=== PATIENT | female | born 1965 | race Caucasian/White ===

== ENCOUNTER 2022-08-24 10:02 | Emergency (ER) | payer OTHER, SELFPAY ==
[2022-08-24 10:11] VITALS: BP 138/87; PULSE 70; RESP 18; TEMP 36.4; O2SAT 97; BMI 33.5
--- NOTE | 2022-08-24 11:38 | ED_ITS ---
HPI - General Adult General Chief complaint: Extremity Pain/Injury, Lower Stated complaint: Possible infection in LT leg Time Seen by Provider: 08/24/22 11:01 History of Present Illness HPI narrative: This patient comes in with a sore on her left lower leg that she noticed a couple days ago. She states that she does not have any sensation from her knees down bilaterally. She does wear some compression stockings and is supposed to wear a brace for her feet but states that it rubs on her skin. She has a superficial abrasion on the left lower anterior leg with some surrounding erythema. He does not report any fevers and feels normal otherwise. Related Data Previous Rx's Medication Instructions Recorded cephalexin 500 mg capsule 500 mg PO TID 7 days #21 caps 08/24/22 Review of Systems Status of ROS: Reports: 10 or more systems reviewed and unremarkable except as noted in History and below Narrative: Constitutional: No fevers, no weight gain or loss. Eyes: No discharge. No vision changes. HENT: No congestion, no sore throat, no ear pain. Cardiovascular: No chest pain, no palpitations. Respiratory: No shortness of breath, no wheezes, no cough. Gastrointestinal: No abdominal pain, no vomiting, no diarrhea. Genitourinary: No dysuria, no hematuria. Musculoskeletal: Normal range of motion. Skin: No rashes, no pruritis. Neurological: No dizziness, weakness, sensory change, speech change. She does have chronic neuropathy with loss of sensation in the distal upper and lower extremities. She is ambulatory. Endo/Heme/Allergies: No bruising or bleeding. No polydipsia. Pysch: no suicidality, no anxiety, no insomnia. All other systems reviewed and are negative. Exam Narrative: Exam Narrative: Constitutional: Well-developed, well-nourished, no acute distress. HEENT: Normocephalic, atraumatic. Neck: Normal range of motion. Nontender. Supple. Heart: Intact distal pulses. Lungs: No chest discomfort. No wheezes, rhonchi, or rales. Abdomen: Nontender. Back: Normal range of motion. Extremities: Normal range of motion. Superficial abrasion on the left lower extremity with surrounding erythema suspicious for cellulitis. There is no sign of abscess or drainage. Skin: Intact. No rash. Warm. No erythema or pallor. Neurologic: No altered sensation. No weakness. Alert and oriented. Psychiatric: No suicidality. No anxiety or depression. No insomnia. Nursing notes and vitals signs are reviewed. Const: Vital Signs, click to edit/add: Vital Signs - 24 hr 08/24/22 10:11 Temperature 97.5 F L Pulse Rate [Pulse Oximeter] 70 Respiratory Rate 18 Blood Pressure [Ri ght Upper Arm] 138/87 Pulse Oximetry 97 Oxygen Delivery Me thod Room Air Course Vital Signs Vital signs: Initial Vital Signs Temperature 97.5 F L 08/24/22 10:11 Temperature Source Temporal Artery Scan 08/24/22 10:11 Pulse Rate 70 08/24/22 10:11 Respiratory Rate 18 08/24/22 10:11 Blood Pressure 138/87 08/24/22 10:11 Blood Pressure Mean 104 08/24/22 10:11 Blood Pressure Position Sitting 08/24/22 10:11 Pulse Oximetry 97 08/24/22 10:11 Oxygen Delivery Method 08/24/22 10:11 Vital Signs Temperature 97.5 F L 08/24/22 10:11 Pulse Rate 70 08/24/22 10:11 Respiratory Rate 18 08/24/22 10:11 Blood Pressure 138/87 08/24/22 10:11 Pulse Oximetry 97 08/24/22 10:11 Oxygen Delivery Method 08/24/22 10:11 Temperature 97.5 F L 08/24/22 10:11 Pulse Rate 70 08/24/22 10:11 Respiratory Rate 18 08/24/22 10:11 Blood Pressure 138/87 08/24/22 10:11 Pulse Oximetry 97 08/24/22 10:11 Oxygen Delivery Method 08/24/22 10:11 Medical Decision Making [facility] Narrative Medical decision making narrative: This patient has peripheral neuropathy and presents with a wound on her lower extremity that has surrounding erythema suspicious for a cellulitis. There is no sign of abscess and no purulent drainage. I removed the bandage she had an place and cleansed the wound. Bacitracin was applied along with a new bandage. She received a prescription for Keflex. Instructions were given regarding wound care and the need to return if worsening symptoms happen. Discharge Plan Discharge Clinical Impression: Cellulitis Patient Disposition: Home, Self-Care Condition: Stable Additional Instructions: Take medication as prescribed. Follow up with MD if not improving or return if worsening. Prescriptions: New cephalexin 500 mg capsule 500 mg PO TID 7 Days Qty: 21 0RF Stand Alone Forms: [facility] Info Instructions
== END 2022-08-24 12:00 | disposition home or self-care (01) ==
PROVIDERS: Emergency Provider Emergency Medicine Emergency Medical Services; PCP Physician Assistant Medical
DX: L03.116 Cellulitis of left lower limb (principal); G62.9 Polyneuropathy, unspecified
CPT/HCPCS: 99283; 99284

== ENCOUNTER 2022-10-31 08:01 | Outpatient (CLI) | payer OTHER, SELFPAY ==
--- NOTE | 2022-10-31 08:15 | CRLHL7_ITS ---
For Patients: As a result of the Cures Act, medical imaging exams and procedure reports are released immediately into your electronic medical record. You may view this report before your referring provider. If you have questions, please contact your health care provider. BILATERAL LOWER EXTREMITY ARTERIAL ULTRASOUND, 10/31/2022 CLINICAL HISTORY: Pain in toes bilaterally. COMPARISON: None. TECHNIQUE: The lower extremity arteries were examined per exam specific protocol with belle-scale ultrasound, color-flow and Doppler spectral analysis. Peak systolic velocities (PSV), Doppler waveform quality and velocity ratios, if applicable, were documented at sites per exam specific protocol. FINDINGS: RIGHT PSV (cm/sec) WAVEFORM (Tri-T, BI-B, Liberty-M) HEAVY TRUCK TECHNICIAN 84 T DFA 60 T FA PRX 90 T FA MID 70 T FA DIST 79 T POP A 64 T ISAIAS A 64 T TREE CLIMBER 77 T JOSEPH 39 T DPA 40 T LEFT PSV (cm/sec) WAVEFORM (Tri-T, BI-B, Liberty-M) HEAVY TRUCK TECHNICIAN 81 T DFA 50 B FA PRX 100 T FA MID 72 T FA DIST 74 T POP A 63 T ISAIAS A 79 T TREE CLIMBER 56 T JOSEPH 60 T DPA 48 T IMPRESSION: 1. Right Lower Extremity: Multiphasic waveforms of the arterial vasculature with no evidence of hemodynamically-significant stenosis. 2. Left Lower Extremity: Multiphasic waveforms of the arterial vasculature with no evidence of hemodynamically-significant stenosis. Issac Mccormick M.D. [email or web address] arguello/Dictated by: Issac Mccormick MD @ 10/31/2022 10:22:00 AM (Electronically Signed)
== END 2022-10-31 08:02 | disposition home or self-care (01) ==
LOC: US 08:07
PROVIDERS: PCP Physician Assistant Medical; Visit Provider Internal Medicine
DX: M79.674 Pain in right toe(s) (principal); M79.675 Pain in left toe(s); R23.0 Cyanosis
CPT/HCPCS: 93926

== ENCOUNTER 2023-06-20 08:37 | Outpatient (CLI) | payer OTHER, SELFPAY | END 2023-06-20 08:38 | disposition home or self-care (01) | LOC: NFLDREF 06-26 09:07 | PROVIDERS: PCP Physician Assistant Medical; Referring Provider Physician Assistant Medical | DX: R31.9 Hematuria, unspecified (principal); N39.0 Urinary tract infection, site not specified | CPT/HCPCS: 87086; 87186 ==

== ENCOUNTER 2023-10-16 03:42 | Emergency (ER) | payer OTHER, SELFPAY ==
[2023-10-16 03:53] VITALS: BP 112/81; PULSE 81; RESP 18; TEMP 36.6; O2SAT 99; BMI 34.2
--- NOTE | 2023-10-16 04:41 | CRLHL7_ITS ---
For Patients: As a result of the Century Cures Act, medical imaging exams and procedure reports are released immediately into your electronic medical record. You may view this report before your referring provider. If you have questions, please contact your health care provider. INDICATION: Injury COMPARISON: 10/28/2019 TECHNIQUE: CT examination of the head was performed as axial sections without intravenous contrast. Images were obtained from the vertex of the skull through the skull base. Please note that all CT scans at this facility use dose modulation, iterative reconstruction, and/or weight-based dosing when appropriate to reduce radiation dose to as low as reasonably achievable. FINDINGS: The brain shows no sign of mass lesion, mass effect, hemorrhage, or edema. There are involutional changes. There is mild cortical atrophy and there is mild white matter disease. There is no hydrocephalus. The visualized portions of the orbits are normal in appearance. The osseous structures are normal in appearance with no sign of abnormality in the skull base or calvarium. IMPRESSION: Involutional changes. No acute intracranial posttraumatic findings. Please note that all CT scans at this facility use dose modulation, iterative reconstruction, and/or weight-based dosing when appropriate to reduce radiation dose to as low as reasonably achievable. Dictated by Swapnil Aguayo MD @ 10/16/2023 5:29:22 AM (Electronically Signed)
--- NOTE | 2023-10-16 05:30 | ED.GENADULT ---
HPI - General Adult General Date Seen: 10/16/23 Chief complaint: Fall/Minor Trauma Stated complaint: fell in bathroom, L knee lac Time Seen by Provider: 10/16/23 03:54 Source: patient and family Mode of arrival: wheelchair Limitations: no limitations History of Present Illness HPI narrative: Patient is a 58-year-old female with multiple medical problems including peripheral neuropathy. She fell on her left knee on the tile floor of the bathroom. Her got her up with a Son lift and got her into a wheelchair and brought her to the emergency department himself. She sustained a large laceration over the left knee and a smaller one on the right foot. She has not really in any pain due to her neuropathy. Her tetanus is up-to-date. She did bump her head but did not lose consciousness. GCS 15. She is fully oriented. She denies other injury. She believes the fact that she is not eating well for the past two weeks may have contributed to her fall due to leg weakness. Related Data Home Medications Medication Instructions Recorded Confirmed acyclovir 800 mg tablet mg PO 06/20/23 06/20/23 alendronate 70 mg tablet 70 mg PO 06/20/23 06/20/23 carboxymethylcellulose sodium 0.5 drp ophthalmic (eye) 06/20/23 06/20/23 % eye drops cetirizine 10 mg tablet 10 mg PO DAILY 06/20/23 06/20/23 citalopram 20 mg tablet 20 mg PO DAILY 06/20/23 06/20/23 cyanocobalamin (vitamin B-12) 1,000 mcg IM MONTHLY 06/20/23 06/20/23 1,000 mcg/mL injection solution furosemide 20 mg tablet 20 mg PO DAILY 06/20/23 06/20/23 gabapentin 600 mg tablet mg PO 06/20/23 06/20/23 levothyroxine 50 mcg tablet 50 mcg PO DAILY 06/20/23 06/20/23 lidocaine 5 % topical patch 1 patch topical DAILY 06/20/23 06/20/23 metformin 500 mg tablet 500 mg PO BID 06/20/23 06/20/23 mirabegron 25 mg tablet,extended 25 mg PO DAILY 06/20/23 06/20/23 release 24 hr (Myrbetriq) oxybutynin chloride 10 mg 10 mg PO DAILY 06/20/23 06/20/23 tablet,extended release 24 hr pantoprazole 40 mg tablet,delayed 40 mg PO DAILY 06/20/23 06/20/23 release pramipexole 0.5 mg tablet mg PO 06/20/23 06/20/23 spironolactone 50 mg tablet 50 mg PO BID 06/20/23 06/20/23 thiamine HCl (vitamin B1) 100 mg 100 mg PO DAILY 06/20/23 06/20/23 tablet trazodone 100 mg tablet 100 mg PO QPM 06/20/23 06/20/23 Previous Rx's Medication Instructions Recorded cephalexin 500 mg capsule 500 mg PO TID #15 caps 10/16/23 Allergies Allergy/AdvReac Type Severity Reaction Status Date / Time amoxicillin [From Augmentin] Allergy Verified 06/20/23 08:46 clavulanic acid Allergy Verified 06/20/23 08:46 [From Augmentin] naproxen Allergy Verified 06/20/23 08:46 [From Flanax (naproxen)] Review of Systems Narrative: She has severe neuropathy. She feels that her anxiety and depression have been well managed. She denies any chest pains or shortness of breath. She has a poor appetite but no nausea or vomiting. Review of systems in all at other areas is noted to be negative. [facility] Social History Smoking Status: Never smoker How often do you have a drink containing alcohol: never AUDIT-C Alcohol total score: 0 Non-prescribed substance use: denies use Exam Narrative: Exam Narrative: Vitals noted. HEENT: Normocephalic, atraumatic.Conjunctiva clear. Tympanic membranes are pearly white bilaterally. Posterior pharynx is clear without erythema or exudate. Neck is supple without adenopathy, thyromegaly, carotid bruit. Lungs: Clear to auscultation in all lenz. No wheezes, rales, rhonchi. Heart: Regular rate and rhythm without murmur. Abdomen: Soft and nontender. No guarding, rigidity, rebound. Bowel sounds are normal. No palpable masses. Extremities: No cyanosis or edema. Good distal pulses. Skin: She has a 1/2 cm laceration on the sole of the foot where the great toe meets the foot. She has a long linear laceration just distal to the patella on the left. The skin is somewhat thin and fragile but it did hold sutures. No bony tenderness. Neurologic: Awake, alert, fully oriented. She has dense neuropathy in the lower extremities from the hips down. Const: Vital Signs, click to edit/add: Vital Signs - 24 hr 10/16/23 03:53 Temperature 97.9 F Pulse Rate [Pulse Oximeter] 81 Respiratory Rate 18 Blood Pressure [Ri ght Upper Arm] 112/81 Pulse Oximetry 99 Oxygen Delivery Me thod Room Air Course Course ED Course: Patient is seen and examined. CT of her head without contrast is ordered and is normal. Her tetanus is up-to-date. she has a large laceration over her left knee and smaller laceration at the crease where the great toe meets foot on the right. These are sutured as mentioned below. Vital Signs Vital signs: Initial Vital Signs Temperature 97.9 F 10/16/23 03:53 Temperature Source Temporal Artery Scan 10/16/23 03:53 Pulse Rate 81 10/16/23 03:53 Respiratory Rate 18 10/16/23 03:53 Blood Pressure 112/81 10/16/23 03:53 Blood Pressure Mean 91 10/16/23 03:53 Blood Pressure Position Sitting 10/16/23 03:53 Pulse Oximetry 99 10/16/23 03:53 Oxygen Delivery Method Room Air 10/16/23 03:53 Vital Signs Temperature 97.9 F 10/16/23 03:53 Pulse Rate 81 10/16/23 03:53 Respiratory Rate 18 10/16/23 03:53 Blood Pressure 112/81 10/16/23 03:53 Pulse Oximetry 99 10/16/23 03:53 Oxygen Delivery Method Room Air 10/16/23 03:53 Temperature 97.9 F 10/16/23 03:53 Pulse Rate 81 10/16/23 03:53 Respiratory Rate 18 10/16/23 03:53 Blood Pressure 112/81 10/16/23 03:53 Pulse Oximetry 99 10/16/23 03:53 Oxygen Delivery Method Room Air 10/16/23 03:53 Discharge Plan Discharge Clinical Impression: Laceration of toe of right foot, Laceration of knee, left Patient Disposition: Home, Self-Care Condition: Improved Additional Instructions: Keflex 500 mg t.i.d. x5 days. Watch for signs of infection. Keep the wounds clean, dry, protected. Sutures out in 10 days. Prescriptions: New cephalexin 500 mg capsule 500 mg PO TID Qty: 15 0RF No Action spironolactone 50 mg tablet 50 mg PO BID levothyroxine 50 mcg tablet 50 mcg PO DAILY Myrbetriq 25 mg tablet extended release 24 hr 25 mg PO DAILY furosemide 20 mg tablet 20 mg PO DAILY pantoprazole 40 mg tablet,delayed release (DR/EC) 40 mg PO DAILY trazodone 100 mg tablet 100 mg PO QPM citalopram 20 mg tablet 20 mg PO DAILY gabapentin 600 mg tablet PO acyclovir 800 mg tablet PO pramipexole 0.5 mg tablet PO oxybutynin chloride 10 mg tablet extended release 24hr 10 mg PO DAILY metformin 500 mg tablet 500 mg PO BID alendronate 70 mg tablet 70 mg PO lidocaine 5 % adhesive patch,medicated 1 patch topical DAILY cetirizine 10 mg tablet 10 mg PO DAILY thiamine HCl (vitamin B1) 100 mg tablet 100 mg PO DAILY cyanocobalamin (vitamin B-12) 1,000 mcg/mL solution 1,000 mcg IM MONTHLY carboxymethylcellulose sodium 0.5 % drops ophthalmic (eye) Follow Up/Referrals: Elissa Barnes PA-C [Primary Care Provider] - Stand Alone Forms: [facility] Info Instructions Procedures Laceration Laceration 1: Pre procedure diagnosis: Right great toe laceration Post procedure diagnosis: same Verification/time out: correct patient and correct site Name of person performing procedure: Nikos Tracy Size (cm): 1.5 Description: linear Depth: simple, single layer Amount of anesthesia used (mL): 0 Skin layer closed with: nylon Size (cm): 4-0 Number of sutures: 4 Technique: simple, interrupted Estimated blood loss (if any): less than 5mls Conclusion: patient tolerated procedure Laceration 2: Pre procedure diagnosis: left knee laceration Post procedure diagnosis: same Verification/time out: correct patient and correct site Name of person performing procedure: Nikos Bishop Tracy Site: lower extremity Size (cm): 6 Description: linear Depth: simple, single layer Amount of anesthesia used (mL): 0 Skin layer closed with: nylon Size (cm): 3-0 Number of sutures: 13 Technique: simple, interrupted Estimated blood loss (if any): other (specify) (15 cc) Conclusion: patient tolerated procedure
[2023-10-16 05:39] VITALS: BP 121/86; PULSE 76; RESP 16; O2SAT 98
--- OUTSIDE RECORDS SUMMARY | 2023-10-16 05:43 | XMS_ITS | Continuity of Care Document ---
Author Name Unknown Organization [facility] Address [address] [address] [place] [address] Phone Care Team Providers Care Felt Hanger Name Role Phone Link Catarino MESSER Unavailable Unavailable Allergies, Adverse Reactions, Alerts Substance Reaction Status Criticality tolmetin Active No Information capsaicin Active No Information CETIRIZINE HCL Active No Informatio n cetirizine Active No Information sulfamethoxazole Rash Active No Informat ion trimethoprim Rash Active No Information naproxen Leg swelling Active No Information adhesive tape Rash Active No Information ibuprofen Possible beeding Active No Informat ion aspirin Bleeding Active No Information naproxen Nausea/Vomiting Active No Informati on clavulanic acid Active No Informati on POTASSIUM CLAVULANATE Upset stomach Active No In formation AMOXICILLIN TRIHYDRATE Upset stomach Active No I nformation POTASSIUM CLAVULANATE Abdominal pain Active No I nformation naproxen swelling Active No Information acetaminophen heart race Active No Information HYDROCODONE BITARTRATE heart race Active No In formation WARNIN allergy(ies) could not be collected because the type is not supported. Please contact the source practice for further details. Medications Medication Instructions Dosage Effective Dates (start - stop) Status Comments Aldactone 50 mg tablet take 1 tablet by ORAL route every day 50 MG - Active Patient request #90 day supply Lasix 20 mg tablet take 1 tablet by oral route every day 20 MG - Active olmesartan 40 mg tablet take 1 tablet by oral route every day 40 MG - Active acetaminophen 500 mg tablet as directed - Active alendronate 70 mg tablet take 1 tablet by oral route every week in the morning, at least 30 min before first food, beverage, or medication of day 70 MG - Active calcitonin (salmon) 200 unit/actuation nasal spray as directed - Active calcium carbonate 500 mg-vitamin D3 10 mcg (400 unit) tablet take 1 tablet by oral route 2 times every day 1 tablet - Active cetirizine 10 mg tablet take 1 tablet by oral route every day 10 MG - Active cholecalciferol (vitamin D3) 125 mcg (5,000 unit) capsule take 1 capsule by oral route every day 1 capsule - Active citalopram 20 mg tablet take 1 tablet by oral route every day 20 MG - Active clindamycin HCl 300 mg capsule take 2 capsule by oral route every 30 - 60 minutes before dental work 600 MG - Active cyanocobalamin (vit B-12) 1,000 mcg/mL injection solution inject 1 milliliter by intramuscular route every month 1000 MCG - Active Deep Sea Nasal 0.65 % spray aerosol instill 2 sprays by nasal route every day into each nostril as needed 2 sprays - Active gabapentin 600 mg tablet take 2 tablet by oral route 3 times every day 1200 MG - Active levothyroxine 50 mcg tablet take 1 tablet by oral route every day 50 MCG - Active LUBRICANT EYE (unknown strength) as directed Not Available - Active metformin 500 mg tablet take 1 tablet by oral route 2 times every day 500 MG - Active Myrbetriq 25 mg tablet,extended release take 1 tablet by oral route every day swallowing whole with water. Do not crush, chew and/or divide. 25 MG - Active multivitamin tablet take 1 tablet by oral route every day 1 tablet - Active CORTISPORIN-TC (unknown strength) instill 3 drop by otic route 3 times every day into left ear Not Available - Active NYSTATIN (unknown strength) apply by topical route every day to the affected area(s) Not Available - Active oxybutynin chloride ER 10 mg tablet,extended release 24 hr take 1 tablet by oral route every day 10 MG - Active pramipexole 0.5 mg tablet as directed - Active senna 8.6 mg tablet take 1 tablet by oral route every day as needed for constipation 1 tablet - Active thiamine HCl (vitamin B1) 100 mg tablet take 1 tablet by oral route every day 1 tablet - Active trazodone 100 mg tablet take 1 tablet by oral route every day after meals 100 MG - Active triamcinolone acetonide 0.1 % topical cream apply by topical route 2 times every day a thin layer to the affected area(s) 0.00 - Active Myrbetriq 25 mg tablet,extended release take 1 tablet by oral route every day swallowing whole with water. Do not crush, chew and/or divide. 25 MG - Active pantoprazole 40 mg tablet,delayed release take 1 tablet by oral route 2 times every day 40 MG - Active 90 day supply request Procedures Procedure Date Ugi Endo; W/bx /mx Offic/outpt E&m Estab Mod-hi 2 23 Offic/outpt E&m Estab Mod-hi 2 22 Ugi Endo; Dx W/wo Collec Specm 21 Colorectal Ca Screen Hi Risk I 21 Moderate sedation, initial 15 minutes Oc Telephone E&M III 21-30 Min MD WENDY Telephone E&M I 5-10 Min MD WENDY 021 Telephone E&M II 11-20 Min MD WENDY Offic/outpt E&m Estab Mod-hi 2 20 Offic/outpt E&m Estab Mod-hi 2 19 Ugi Endo; W/bx 1/mx Offic/outpt E&m Estab Mod-hi 2 19 Ugi Endo; Dx W/wo Collec Specm 19 cancelled appt Offic/outpt E&m New Mod-hi Routine Serum Collection Bld Ct; Hg & Platelet Ct Autom 19 Prothrombin Time Alpha-fetoprotein; Serum Bilirubin; Direct Comp Metabolic Panel Colonoscopy Flex; W/remov Les- 15 Ugi Endo; Dx W/wo Collec Specm 15 Level Iv-surg Path Gross/micro 15 Offic/outpt E&m [facility] Mod-vt 2 15 Routine Serum Collection Bld Ct; Hg/pltlt Ct Auto/compl 15 Hepatic Function Panel Prothrombin Time [facility]ine Serum Collection Bld Ct; Hg/pltlt Ct Auto/compl 14 Alpha-fetoprotein; Serum Bilirubin; Direct Comp Metabolic Panel Prothrombin Time Bld Ct; Hg/pltlt Ct Auto/compl 14 Alpha-fetoprotein; Serum Hepatic Function Panel Prothrombin Time Offic/outpt E&m [facility] 2 14 Routine Serum Collection Offic[facility]pt [facility] Routine Serum Collection Bld Ct; Hg/pltlt Ct Auto/compl 13 Alpha-fetoprotein; Serum Hepatic Function Panel Prothrombin Time Ugi Endo; Dx W/wo Collec Specm [address] Hg/pltlt Ct Auto/compl 13 Hepatic Function Panel Offic/outpt E&m [facility] 2 13 Routine Serum Collection Alpha-fetoprotein; Serum Offic[facility]pt [facility] Routine Serum Collection G8447 Bld Ct; Hg/pltlt Ct Auto/compl 12 Alpha-fetoprotein; Serum Hepatic Function Panel Offic/outpt E&m Estab Mod-hi 2 12 Routine Serum Collection G8447 Offic/outpt E&m Estab Mod-hi 2 11 Routine Serum Collection G8447 Offic/outpt E&m Estab Minor G8447 Offic/outpt E&m Estab Low-mod 0 G8447 Offic Cons New/estab Mod Routine Serum Collection G8447 Subsqt Hosp-da E&m Minr Compl 0 Init Inpt Cons New/est Mod-hi 0 Subsqt Hosp-da E&m Minr Compl 0 Subsqt Hosp-da E&m Minr Compl 0 Advance Directives Directive Yes / No Effective Date File Name No Information Encounters Encounter Description Practice Location Reason(s) For Visit Diagnoses Date Provider Providers Copied on Encounter [facility] NANCY ENNIS [address] [address], [place], [place], [id number], [place] tel:[phone] [facility] No Information 3 Link MD Toribio. [address] [place] [address], [id number], [place]. tel:[phone] [facility] [place] [address] [address], [place], [place], [id number], [place] tel:[phone] [facility] No Information 3 Link MD Toribio. [address], [id number], [place]. tel:[phone] Referring Provider: Elissa ENNIS, [address] [place] [address], [address]. tel:[phone] [facility], [address] [address], [place], [id number], [place] tel:[phone] [facility] No Information 3 Kaleb Kraft. [address] [facility], [facility] [address], [place], [id number], [place]. tel:[phone] [facility], [address] [address], [place], [id number], [place] tel:[phone] [facility] No Information 3 Andres Mayen. [address] [facility], [address], [id number], [place]. tel:[phone] Offic/outpt E&m Estab Mod-hi 2 [facility], [address] [address], [place], [id number], [place] tel:[phone] [facility] GI Symptoms or Concerns (chief complaint) Alcoholic cirrhosis of liver without ascites 3 Andres [address]en. [address] [place] [address], [address], [id number], [place]. tel:[phone] Referring Provider: Referral Self, USE FOR SELF REFERRALS. [facility], [address] [address], [place], [id number], [place] tel:[phone] [facility] No Information 3 Andres Mayen. [address] [place] [address], [id number], [place]. tel:[phone] [facility], [address] [address], [place], [id number], [place] tel:[phone] [facility] Alcoholic cirrhosis of liver without ascites 3 Andres Mayen. [address] [facility], [address], [id number], [place]. tel:[phone] Offic/outpt E&m Estab Mod-hi 2 [facility], [address] [address], [place], [id number], [place] tel:[phone] [facility] GI Symptoms or Concerns (chief complaint) Alcoholic cirrhosis of liver without ascitesLiver cirrhosis secondary to NASHUnspecifie d cirrhosis of liver 2 Andres Mayen. [address] [facility], [address], [id number], [place]. tel:[phone] Referring Provider: Referral Self, USE FOR SELF REFERRALS. [facility], [address] [address], [place], [id number], [place] tel:[phone] [facility] No Information 2 Andres Mayen. [address] [place] [address], [id number], [place]. tel:[phone] [facility] [place], [address] [address], [place], [id number], [place] tel:[phone] [facility] No Information 1 Chandler Haney. [address], [id number], [place]. tel:[phone] Referring Provider: [place], [address] [place] [address], [place], [address] . tel:[phone] [facility] [place], [address] [address], [place], [id number], [place] tel:[phone] [facility] No Information 1 Everett Leahy. [address] [facility], [address], [id number], [place]. tel:[phone] Telephone E&M III 21-30 Min WENDY [facility] [place], [address] [address], [place], [id number], [place] tel:[phone] [facility] GI Symptoms or Concerns (chief complaint) Cirrhosis of liver without ascites, unspecified hepatic cirrhosis type 1 Andres Mayen. [address] [place] [address], [id number], [place]. tel:[phone] Referring Provider: Referral Self, USE FOR SELF REFERRALS. [facility], [address] [address], [place], [id number], [place] tel:[phone] [facility] No Information 1 Andres Mayen. [address] [facility], [place] [address], [place], [place], [id number], [place]. [phone] Telephone E&M I 5-10 Min WENDY [facility], [address] [address], [place], [id number], [place] tel:[phone] [facility] GI Symptoms or Concerns (chief complaint) Cirrhosis of liver without ascites, unspecified hepatic cirrhosis type 1 Andres Mayen. [address] [facility], [address], [id number], [place]. tel:[phone] Referring Provider: [place], [address] [place] [address], [place], [address] . tel:[phone] [facility], [address] [address], [place], [id number], [place] tel:[phone] [facility] No Information 1 Andres Mayen. [address] [facility], [address], [id number], [place]. tel:[phone] Telephone E&M II 11-20 Min WENDY [facility], [address] [address], [place], [id number], [place] tel:[phone] [facility] GI Symptoms or Concerns (chief complaint) Alcoholic cirrhosis of liver without ascites Jun- 0 Andres Mayen. [address] [facility], [facility] [address], [place], [id number], [place]. tel:[phone] Referring Provider: Referral Self, USE FOR SELF REFERRALS. Offic/outpt E&m Estab Mod-hi 2 [facility], [address] [address], [place], [id number], [place] tel:[phone] [facility] GI Symptoms or Concerns (chief complaint) Alcoholic cirrhosis of liver without ascitesDietary counseling and surveillance 0- 0 Andres Mayen. [facility] [facility], [facility] [address], [place], [id number], [place]. tel:[phone] Referring Provider: Nikos Bishop, [address] [facility], [place], [address]. tel:[phone] Offic/outpt E&m Estab Mod-hi 2 [facility], [address] [address], [place], [id number], [place] tel:[phone] [facility] GI Symptoms or Concerns (chief complaint) Alcoholic cirrhosis of liver without ascitesDietary counseling and surveillanceEl evated blood-pressure reading, w/o diagnosis of htn 9 Andres Mayen. [address] [place] [address], [address], [id number], [place]. tel:[phone] Referring Provider: Nikos Bishop, [address] [facility], [place], [address]. tel:[phone] [facility], [address] [address], [place], [id number], [place] tel:[phone] [facility] Cirrhosis of liver without ascites, unspecified hepatic cirrhosis type 9 Andres Mayen. [address] [place] [address], [address], [id number], [place]. tel:[phone] Referring Provider: Tiarra Campos MD, [address] [place] [address], [place], [address] . tel:[phone] [facility], [address] [address], [place], [id number], [place] tel:[phone] [facility] No Information 9 Buffy Low. [address] [place] [address], [place] [address], [place], [place], [id number], [place]. tel:[phone] Referring Provider: Gail Baer MD, [address] [facility] [place] [address], [facility], [address] . tel:[phone] Offic/outpt E&m Estab Mod-hi 2 [facility], [address] [address], [place], [id number], [place] tel:[phone] [facility] GI Symptoms or Concerns (chief complaint) Cirrhosis of liver without ascites, unspecified hepatic cirrhosis type 9 Andres Mayen. [address] [facility], [place] [address], [place], [id number], [place]. [phone] Referring Provider: Referral Self, USE FOR SELF REFERRALS. [facility], [address] [address], [place], [id number], [place] tel:[phone] [facility] Gastric ulcer without hemorrhage or perforation, unspecified chronicity 9 Baylee Berry. [facility] [facility], [facility] [address], [place], [id number], [place]. tel:[phone] Miah Gu MD. tel:[phone] [facility], [address] [address], [place], [id number], [place] tel:[phone] [facility] No Information 9 Baylee Berry. [address] [facility], [facility] [address], [place], [address], [place]. tel:[phone] Referring Provider: Jamal Beach MD, [address] [facility] [place] [address], [facility] [place], [address] . tel:[phone] [facility], [address] [address], [place], [id number], [place] tel:[phone] [facility] Alcoholic cirrhosis of liver without ascites 9 Anita Jerome. [address] [facility], [place] [address], [place], [id number], [place]. tel:[phone] Miah Gu MD. tel:[phone] erring Provider: Referral Self, USE FOR SELF REFERRALS. Offic/outpt E&m New Mod-hi [facility], [address] [address], [place], [place], [id number], [place] tel:[phone] [facility] GI Symptoms or Concerns (chief complaint) Alcoholic cirrhosis of liver without ascitesDietary counseling and surveillance 9 Andres Mayen. [address] [facility], [facility] [address], [place], [id number], [place]. tel:[phone] Referring Provider: Jacob Hernandez MD, [address] [facility], [place], [address]. tel:[phone] [facility], [address] [address], [place], [place], [id number], [place] tel:[phone] [facility] Colon polypEncounter for screening for malignant neoplasm of colonBenign neoplasm of rectumAlcoholi c fatty liverAlcoholic fatty liver 5 Neel James. [address] [facility] [address], [place], [id number], [place]. tel:[phone] Referring Provider: Radha Bishop, [address] [place] [address], [address]. tel:[phone] Offic/outpt E&m Estab Mod-hi 2 [facility], [address] [address], [place], [place], [address], [place] tel:[phone] [facility] Liver Symptoms or Concerns (chief complaint) Alcohol Cirrhosis LiverNon-alcoh olic Fatty LiverDietary Surveil/counse lAlcoholic cirrhosis of liver without ascitesOther specified diseases of liverDietary counseling and surveillance 5 No Information Radha Alston MD. tel:[phone] erring Provider: Referral Self, USE FOR SELF REFERRALS. [facility], [address] [address], [place], [place], [id number], [place] tel:[phone] [facility] Alcohol Cirrhosis LiverAlcoholic cirrhosis of liver without ascites 5 No Information Radha Alston MD. [phone] erring Provider: Referral Self, USE FOR SELF REFERRALS. [facility] [place], [address] [address], [place], [id number], [place] tel:[phone] [facility] Alcohol Cirrhosis Liver Sep-2 4 No Information [facility], [address] [address], [place], [id number], [place] tel:[phone] [facility] Alcohol Cirrhosis Liver Sep- 4 No Information Radha Alston MD. tel:[phone] erring Provider: Radha Bishop, [address], [place], [address]. tel:[phone] Offic/outpt E&m Estab Low-mod [facility] [place], [address] [address], [place], [id number], [place] tel:[phone] [facility] Liver Symptoms or Concerns (chief complaint) Alcohol Cirrhosis LiverAlcoholic Fatty LiverDietary Surveil/counse lElev Bl Pres W/o Hypertn Jun- 4 No Information Radha Alston MD. tel:[phone] erring Provider: Radha Bishop, [address], [place], [address]. tel:[phone] [facility] [place], [address] [address], [place], [id number], [place] tel:[phone] [facility] Alcohol Cirrhosis Liver May- 4 No Information Referring Provider: Radha Bishop, [address], [place], [address]. tel:[phone] Offic/outpt E&m Estab Mod-hi 2 [facility] [place], [address] [address], [place], [id number], [place] tel:[phone] [facility] Alcohol Cirrhosis LiverAlcohol Cirrhosis LiverAlcoholic Fatty LiverConstipat ion Unspecified Fe- 4 No Information Referring Provider: Referral Self, USE FOR SELF REFERRALS. Offic/outpt E&m Estab Low-mod [facility] [place], [address] [address], [place], [place], [id number], [place] tel:[phone] [facility] Cirrhosis (chief complaint) Liver disease (chief complaint) Alcohol Cirrhosis LiverAlcohol Cirrhosis LiverAlcoholic Fatty Liver 3 No Information Referring Provider: Radha Bishop, [address], [place], [address]. tel:[phone] [facility] [place], [address] [address], [place], [place], [id number], [place] tel:[phone] [facility] Esoph Varices W/o BleedEsoph Varices W/o Bleed 3 Link MD Toribio. [address] [facility], [facility] [address], [place], [place], [id number], [place]. tel:[phone] Referring Provider: Radha Bishop, [address], [place], [address]. tel:[phone] Offic/outpt E&m Estab Mod-hi 2 [facility] [place], [address] [address], [place], [place], [address], [place] tel:[phone] [facility] (alcohol cirrhosis of the liver and 6 mo F/U) (chief complaint) Alcohol Cirrhosis LiverAlcohol Cirrhosis LiverAlcoholic Fatty Liver 3 No Information Referring Provider: Referral Self, USE FOR SELF REFERRALS. Offic/outpt E&m Estab Low-mod [facility] [place], [address] [address], [place], [place], [id number], [place] tel:[phone] [facility] F/UCirrhos is (chief complaint) Alcohol Cirrhosis LiverAlcohol Cirrhosis LiverAlcoholic Fatty Liver 2 No Information Referring Provider: Radha Bishop, [address], [place], [address]. tel:[phone] Offic/outpt E&m Estab Mod-hi 2 [facility], [address] [address], [place], [facility], [address], [place] tel:[phone] [facility] Other (Alcohol Cirrhosis) . (chief complaint) Alcohol Cirrhosis LiverAlcohol Cirrhosis LiverAlcoholic Fatty Liver Dec- 2 No Information Referring Provider: Radha Bishop, [address], [place], [address]. tel:[phone] Offic/outpt E&m Estab Mod-hi 2 [facility], [address] [address], [facility], [facility] [place], [address], [place] tel:[phone] [facility] Cirrhosis (chief complaint) Alcohol Cirrhosis Liver Apr- 1 Rip Knott. [address] [place] [address], [id number], [place]. tel:[phone] Referring Provider: Radha Bishop, [address], [place], [address]. tel:[phone] Offic/outpt E&m Estab Minor [facility], [address] [address], [place], [place], [id number], [place] tel:[phone] [facility] Liver disease (chief complaint) Alcohol Cirrhosis Liver Sep- 0 Rip Knott. [address] [place] [address], [id number], [place]. tel:[phone] Referring Provider: Radha Bishop, [address], [place], [address]. tel:[phone] Offic/outpt E&m Estab Low-mod [facility], [address] [address], [place], [place], [id number], [place] tel:[phone] [facility] Liver disease (chief complaint) Alcohol Liver Damage Nos Aug- 0 [place] GIOVANA Sienna. [address] [place] [address], [id number], [place]. tel:[phone] Referring Provider: Radha Bishop, [address] [place], [address]. tel:[phone] Offic Cons New/estab Mod [facility] [place], [address] [address], [place], [place], [id number], [place] tel:[phone] [facility] Hepatitis (chief complaint) Alcohol Liver Damage Nos Mar- 0 Rip Knott. [address], [id number], [place]. tel:[phone] Referring Provider: Radha Bishop, [address] [place], [address]. tel:[phone] Subsqt Hosp-da E&m Minr Compl [facility] [place], [address] [address], [place], [place], [id number], tel:[phone] [facility] No Information 0 No Information Referring Provider: Vinny Manuel, [address] [place], [address]. tel:[phone] Init Inpt Cons New/est Mod-hi [facility], [address] [address], [place], [place], [id number], [place] tel:[phone] [facility] [facility] Information 0 Janis Henson. [address] [place] [address], [id number], . tel:[phone] Referring Provider: Vinny Manuel, [address] [place], [address]. tel:[phone] Family History Family Member Type Diagnosis Age At Onset Sister Problem (finding) Alive and well Father Problem (finding) Mother Problem (finding) Sister Problem (finding) Mother Problem (finding) malignant neop lasm of pancreas (Cause Of ) First degree family history Problem (finding) Cancer, breast Daughter Problem (finding) Alive and well Immunizations Vaccine Date Status Comments Influenza, injectable, [place] Canine Kidney, preservative free, quadrivalent administered Note: IN IC bi- directional interface ; Source: Other Registry SARS-COV-2 (COVID-19) vaccin e, mRNA, spike protein, LNP, bivalent, preservative free, 50 mcg/0.5 mL or 25 mcg/0.25 mL dose administered Note: [facility] bi-direct ional interface ; Source: Other Registry SARS-COV-2 (COVID-19) vaccin e, mRNA, spike protein, LNP, bivalent booster, preservative free, 50 mcg/0.5 mL or 25 mcg/0.25 mL dose administered Note: [facility] bi-direct ional interface ; Source: Other Registry tetanus toxoid, reduced diphtheria toxoid, and acellular pertussis vaccine, adsorbed administered Note: [facility] bi-direct ional interface ; Source: Other Registry Influenza, injectable, [place] Canine Kidney, preservative free, quadrivalent administered Note: IN IC bi- directional interface ; Source: Other Registry SARS-COV-2 (COVID-19) vaccin e, mRNA, spike protein, LNP, preservative free, 30 mcg/0.3mL dose, maurilio-sucrose formulation administered Note: [facility] C bi- directional interface ; Source: Other Registry SARS-COV-2 (COVID-19) vaccin e, mRNA, spike protein, LNP, preservative free, 30 mcg/0.3mL dose administered Note: [facility] bi-direct ional interface ; Source: Other Registry zoster vaccine recombinant administered N ote: [facility] bi-directional interface ; Source: Other Registry zoster vaccine recombinant administered N ote: [facility] bi-directional interface ; Source: Other Registry Influenza, seasonal, injectable administe red Note: [facility] bi- directional interface ; Source: Other Registry SARS-COV-2 (COVID-19) vaccin e, mRNA, spike protein, LNP, preservative free, 30 mcg/0.3mL dose administered Note: [facility] bi-direct ional interface ; Source: Other Registry Afluria Qd administered Note: M [facility] bi-directional interface ; Source: Other Registry Afluria Qd administered Note: M [facility] bi-directional interface ; Source: Other Registry Influenza administered Note: [facility] bi-d irectional interface ; Source: Other Registry Influenza, seasonal, injectable, preservative free administered Note: [facility] bi-directional interface ; Source: Other Registry Influenza administered Note: [facility] bi-d irectional interface ; Source: Other Registry Pneumovax 23 administered Note: [facility] bi-d irectional interface ; Source: Other Registry Afluria Qd administered Note: M [facility] bi-directional interface ; Source: Other Registry Afluria Qd administered Note: M [facility] bi-directional interface ; Source: Other Registry Fluzone Quad 6mo or older administered Note: [facility] bi-direct ional interface ; Source: Other Registry Influenza virus vaccine, injectable, quadrivalent, split virus, preservative free, 3 years or older Fluarix, Flulaval or Fluzone Quad administered Note: Invalid docume nted admin date was . ; Source: Other Provider Flu (split) (3 yrs or older) administered Note: Invalid documented admin date was . ; Source: Other Provider tetanus toxoid, reduced diphtheria toxoid, and acellular pertussis vaccine, adsorbed administered Note: [facility] bi-direct ional interface ; Source: Other Registry seasonal influenza, intradermal, preservative free administered Note: M[facility] C bi- directional interface ; Source: Other Registry Afluria Qd administered Note: M [facility] bi-directional interface ; Source: Other Registry Novel [id number], all formulations administered Note: [facility] bi-direct ional interface ; Source: Other Registry Influenza, seasonal, injectable administe red Note: [facility] bi- directional interface ; Source: Other Registry tetanus and diphtheria toxoi ds, adsorbed, preservative free, for adult use (2 Lf of tetanus toxoid and 2 Lf of diphtheria toxoid) administered Note: [facility] bi-direct ional interface ; Source: Other Registry tetanus and diphtheria toxoi ds, adsorbed, preservative free, for adult use (2 Lf of tetanus toxoid and 2 Lf of diphtheria toxoid) administered Note: [facility] bi-direct ional interface ; Source: Other Registry Payers Payer name Insurance type Covered democrat ID Moi santana(s) Ganesh [facility] 16 [id number] Social History Type Description Quantity Date Captured Comments Sex Female Smoking Status No Information Chief Complaint And Reason For Visit No Information Reason For Referral Reason For Referral No Information Plan Of Treatment Date Type Action Status Goal Lifestyle education regardin g diet completed Goal Lifestyle education regardin g diet completed Goal Lifestyle education regardin g diet completed Goal Lifestyle education regardin g diet completed Goal Lifestyle education regardin g diet completed Referral Ordered: Colonoscopy Appointment date/timeframe: First Available ordered Referral Ordered: follow-up visit with Tiarra Campos MD 1 Year Appointment date/timeframe: 1 Year ordered Referral Ordered: Creatinine Appointment date/timeframe: 10/10/2020 ordered Referral Ordered: follow-up visit with Tiarra Campos MD 4 Months Appointment date/timeframe: 4 Months ordered Referral Ordered: CBC Appointment date/timeframe: 03/29/2019 ordered Referral Ordered: follow-up visit with Tiarra Campos MD 6 Months Appointment date/timeframe: 6 Months ordered Referral Ordered: H. pylori IgG, Abs Appointment date/timeframe: 12/14/2018 ordered Referral Ordered: Hepatoma Protocol Appointment date/timeframe: -today ordered Referral Ordered: follow-up visit with Stanley Wade NP 6 Months Appointment date/timeframe: 6 Months ordered Referral Ordered: Ultrasound Of Liver Appointment date/timeframe: 06/10/2015 ordered Referral Ordered: follow-up visit 6 Months Appointment date/timeframe: 12/15/2014 ordered Referral Ordered: AFP, Serum, Tumor Marker Appointment date/timeframe: 06/16/2014 ordered Referral Ordered: US Liver Appointment date/timeframe: 06/02/2014 ordered History Of Present Illness Encounter Date Complaint History Of Prese nt Illness GI Symptoms or Concerns This is a 57 year-old woman presents for follow up of 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 Unfortunately, patient continues to drink wine off on. She had made no attempts to quit in the past. She has not attended alcohol rehab, and she is reluctant to do so. She denies sequelae of more severe alcohol withdrawal such as delirium tremens or seizures. Course c/b w BL LE edema managed with low sodium diet and diuretics (lasix 20 mg, and aldactone 50 mg daily). She uses compression socks. Her abdomen is quite distended today, but US 12/2022 showed no ascites. She is known to have redundant tortuous colon and chronic constipation. No history of GI bleeding. No cognitive changes associated with hepatic encephalopathy. 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 She is in wheelchair most of the times. Patient had been on Rituximab for neuropathy. Her hepatitis B serology at baseline indicates hepatitis surface antigen negative, core antibody negative and surface antibody positive, yet patient was started by neurologist for tenofovir. She took tenofovir 300 mg daily until 6 months (about March 2020) after stopping Rituximab.EGD 12/2018 showed no varices, yet small 4 mm ulceration at the gastro-jejunum anastomosis. Patient is s/p gastric bypass surgery. H. Pylori negative. Follow up EGD 02/2019 once again showed no varices, yet persistent benign appearing small ulcer at gastro-jejunum anastomosis. Biopsy of the edges of ulcer was negative for malignancy. Most recent EGD 07/2021 showed no varices, and no ulcerations. 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 It was tortuous redundant colon. Recent US 12/2022 showed no focal liver lesion. Labs 12/2022, reviewed. Medical history is remarkable for DVT for which she received a course of Warfarin in 2014. She is currently off anticoagulation. 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 Unfortunately, patient continues to drink wine off on. She had made no attempts to quit in the past and had no strong desire in doing so. She has not attended alcohol rehab in the past, and she is reluctant to do so. She denies sequelae of more severe alcohol withdrawal such as delirium tremens or seizures. Course c/b w BL LE edema managed with low sodium diet and diuretics (lasix 20 and aldactone 50 mg daily). She uses compression socks. Her abdomen is quite distended today but recent US shows no ascites. She has no prior history of ascites. She is known to have redundant tortuous colon and chronic constipation. No history of GI bleeding. No cognitive changes associated with hepatic encephalopathy. 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 She is in wheelchair most of the times. Patient had been on Rituximab for neuropathy. Her hepatitis B serology at baseline indicates hepatitis surface antigen negative, core antibody negative and surface antibody positive, yet patient was started by neurologist for tenofovir. She took tenofovir 300 mg daily until 6 months (about March 2020) after stopping Rituximab.EGD 12/2018 showed no varices, yet small 4 mm ulceration at the gastro-jejunum anastomosis. Patient is s/p gastric bypass surgery. H. Pylori negative. Follow up EGD 02/2019 once again showed no varices, yet persistent benign appearing small ulcer at gastro-jejunum anastomosis. Biopsy of the edges of ulcer was negative for malignancy. Most recent EGD 07/2021 showed no varices, and no ulcerations. 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 It was tortuous redundant colon. Recent US 01/2022 showed no focal liver lesion. Two tiny gallbladder polyps noted. Medical history is remarkable for DVT for which she received a course of Warfarin in 2014. She is currently off anticoagulation. 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 Unfortunately, patient continues to drink wine off on. She had made no attempts to quit in the past and had no strong desire in doing so. She has not attended alcohol rehab in the past, and she is reluctant to do so. She denies sequelae of more severe alcohol withdrawal such as delirium tremens or seizures. Course c/b w BL LE edema managed with low sodium diet and diuretics (lasix 20 and aldactone 50 mg daily). No history of ascites. No GI bleeding, or cognitive changes associated with hepatic encephalopathy. Course c/b w peripheral neuropathy secondary to alcohol. EGD 12/2018 showed no varices, yet small 4 mm ulceration at the gastro-jejunum anastomosis. Patient is s/p gastric bypass surgery. H. Pylori negative. Follow up EGD 02/2019 once again showed no varices, yet persistent benign appearing small ulcer at gastro-jejunum anastomosis. Biopsy of the edges of ulcer was negative for malignancy. Recent US 06/2021 showed no focal liver lesion. Medical history is remarkable for DVT for which she received a course of Warfarin in 2014. She is currently off anticoagulation.Patient had been on Rituximab for neuropathy. Her hepatitis B serology at baseline indicates hepatitis surface antigen negative, core antibody negative and surface antibody positive, yet patient was started by neurologist for tenofovir. She took tenofovir 300 mg daily until 6 months (about March 2020) after stopping Rituximab. GI Symptoms or Concerns This is a 55 year-old woman consents for telephone follow up of alcoholic and nonalcoholic fatty liver disease which has possibly progressed to cirrhosis. Unfortunately, patient continues to drink wine off on. She had made no attempts to quit in the past and had no strong desire in doing so. She has not attended alcohol rehab in the past, and she is reluctant to do so. She denies sequelae of more severe alcohol withdrawal such as delirium tremens or seizures. Course c/b w BL LE edema managed with low sodium diet and diuretics (lasix 20 and aldactone 50 mg daily). No history of ascites. No GI bleeding, or cognitive changes associated with hepatic encephalopathy. Course c/b w peripheral neuropathy secondary to alcohol. EGD 12/2018 showed no varices, yet small 4 mm ulceration at the gastro-jejunum anastomosis. Patient is s/p gastric bypass surgery. H. Pylori negative. Follow up EGD 02/2019 once again showed no varices, yet persistent benign appearing small ulcer at gastro-jejunum anastomosis. Biopsy of the edges of ulcer was negative for malignancy. Recent US 12/2020 showed no focal liver lesion. AFP mildly abnormal, yet stable for years. Medical history is remarkable for DVT for which she received a course of Warfarin in 2014. She is currently off anticoagulation.Patient had been on Rituximab for neuropathy. Her hepatitis B serology at baseline indicates hepatitis surface antigen negative, core antibody negative and surface antibody positive, yet patient was started by neurologist for tenofovir. She took tenofovir 300 mg daily until 6 months (about March 2020) after stopping Rituximab. GI Symptoms or Concerns This is a 54 year-old woman consents for telephone follow up of alcoholic and nonalcoholic fatty liver disease which has possibly progressed to cirrhosis. Unfortunately, patient continues to drink wine off on. She had made no attempts to quit in the past and had no strong desire in doing so. She has not attended alcohol rehab in the past, and she is reluctant to do so. She denies sequelae of more severe alcohol withdrawal such as delirium tremens or seizures. Course c/b w BL LE edema managed with low sodium diet and diuretics (lasix 20 and aldactone 50 mg daily). No history of ascites. No GI bleeding, or cognitive changes associated with hepatic encephalopathy. Course c/b w peripheral neuropathy secondary to alcohol. EGD 12/2018 showed no varices, yet small 4 mm ulceration at the gastro-jejunum anastomosis. Patient is s/p gastric bypass surgery. H. Pylori negative. Follow up EGD 02/2019 once again showed no varices, yet persistent benign appearing small ulcer at gastro-jejunum anastomosis. Biopsy of the edges of ulcer was negative for malignancy. Recent US 05/07/2020 showed no focal liver lesion. AFP mildly abnormal, yet stable for years. Medical history is remarkable for DVT for which she received a course of Warfarin in 2014. She is currently off anticoagulation.Patient had been on Rituximab for neuropathy. Her hepatitis B serology at baseline indicates hepatitis surface antigen negative, core antibody negative and surface antibody positive, yet patient was started by neurologist for tenofovir. She took tenofovir 300 mg daily until 6 months (about March 2020) after stopping Rituximab. GI Symptoms or Concerns This is a 54 year-old woman presenting to clinic today for follow-up of alcoholic and nonalcoholic fatty liver disease which has possibly progressed to cirrhosis. Unfortunately, patient continues to drink about 1-2 glasses of wine daily. She had made no attempts to quit in the past and had no strong desire in doing so. She has not attended alcohol rehab in the past, and she is reluctant to do so. She denies sequelae of more severe alcohol withdrawal such as delirium tremens or seizures. Since last time I saw the patient in the clinic, she lost significant amount of muscles. Exam is clearly significant for sarcopenia. She has BL LE edema managed with low sodium diet and diuretics (lasix 20 and aldactone 50 mg daily). No history of ascites. Her abdomen is quite distended today with collaterals, yet recent US showed no ascites but large amount of gas. No GI bleeding, or cognitive changes associated with hepatic encephalopathy. EGD 12/2018 showed no varices, yet small 4 mm ulceration at the gastro-jejunum anastomosis. Patient is s/p gastric bypass surgery. H. Pylori negative. Follow up EGD 02/2019 once again showed no varices, yet persistent benign appearing small ulcer at gastro-jejunum anastomosis. Biopsy of the edges of ulcer was negative for malignancy. Recent US 12/01/2019 showed no focal liver lesion, although exam was limited by gas. AFP mildly abnormal, yet stable for years. Medical history is remarkable for DVT for which she received a course of Warfarin in 2014. She is currently off anticoagulation.Patient had been on Rituximab for neuropathy. Her hepatitis B serology at baseline indicates hepatitis surface antigen negative, core antibody negative and surface antibody positive, yet patient was started by neurologist for tenofovir. She is currently on 300 mg daily and was instructed to continue that until 6 months (about March 2020) after stopping Rituximab. GI Symptoms or Concerns This is a 53 year-old woman presenting to clinic today for follow-up of alcoholic and nonalcoholic fatty liver disease which has possibly progressed to cirrhosis. Unfortunately, patient continues to drink about 1-2 glasses of wine daily. She had made no attempts to quit in the past and had no strong desire in doing so. Now she expresses mixed feelings about this as she knows she needs to stop drinking. She denies sequelae of more severe alcohol withdrawal such as delirium tremens or seizures. Patient also denies symptoms of worsening, decompensated liver disease including jaundice or scleral icterus. She has BL LE edema managed with low sodium diet and diuretics (lasix 20 and aldactone 50 mg daily). No history of ascites. No GI bleeding, or cognitive changes associated with hepatic encephalopathy. EGD 12/2018 showed no varices, yet small 4 mm ulceration at the gastro-jejunum anastomosis. Patient is s/p gastric bypass surgery. H. Pylori negative. Follow up EGD 02/2019 once again showed no varices, yet persistent benign appearing small ulcer at gastro-jejunum anastomosis. Biopsy of the edges of ulcer was negative for malignancy. Recent US 05/2019 showed no focal liver lesion. AFP mildly abnormal, yet stable for years. Patient also has evidence of nonalcoholic fatty liver disease and several risk factors related to this. She acknowledges a diet likely high in refined sugars and carbohydrates. She has hypertension, well controlled on medication, abdominal obesity, an elevated BMI, and a family history of diabetes. Medical history is remarkable for DVT for which she recieved a course of Warfarin in 2014. She is currently off anticoagulation.Patient was started earlier this on Rituximab for neuropathy. Her hepatitis B serology at baseline indicates hepatitis surface antigen negative, core antibody negative and surface antibody positive, yet patient was started by neurologist for tenofovir. She is currently on 300 mg daily and was instructed to continue that until 6 months after stopping Rituximab. GI Symptoms or Concerns This is a 53 year-old woman presenting to clinic today for follow-up of alcoholic and nonalcoholic fatty liver disease which has possibly progressed to cirrhosis. Unfortunately, patient continues to drink about 2-3 glasses of wine daily. She had made no attempts to quit in the past and had no strong desire in doing so. Now she expresses mixed feelings about this as she knows she needs to stop drinking. She denies sequelae of more severe alcohol withdrawal such as delirium tremens or seizures. Patient also denies symptoms of worsening, decompensated liver disease including jaundice or scleral icterus. She has BL LE edema managed with low sodium diet and diuretics. No history of ascites. No GI bleeding, tea-colored urine, or cognitive changes associated with hepatic encephalopathy. EGD 12/2018 showed no varices, yet small 4 mm ulceration at the gastro-jejunum anastomosis. Patient is s/p gastric bypass surgery. H. Pylori negative. Recent US 10/2018 showed no focal liver lesion. Patient also has evidence of nonalcoholic fatty liver disease and several risk factors related to this. She acknowledges a diet likely high in sodium and refined sugars and carbohydrates. She has hypertension, well controlled on medication, abdominal obesity, an elevated BMI, and a family history of diabetes. Medical history is remarkable for DVT for which she recieved a course of Warfarin in 2014. She is currently off anticoagulation.Patient was recently started on Rituximab for neuropathy. Her hepatitis B serology at baseline indicates hepatitis surface antigen negative, core antibody negative and surface antibody positive, yet patient was started by neurologist for tenofovir. She is currently on 300 mg daily and was instructed to continue that until 6 months after stopping Rituximab. GI Symptoms or Concerns This is a 53 year-old woman presenting to clinic today for follow-up of alcoholic and nonalcoholic fatty liver disease which has possibly progressed to cirrhosis. She was last seen by Stanley Wade in 2014. Unfortunately, patient continues to drink about 2-3 glasses of wine daily. She had made no attempts to quit in the past and had no strong desire in doing so. Now she expresses mixed feelings about this as she knows she needs to stop drinking. She recently fell and broke her left femur. She went to undergo surgery on 09/17/2018. She denies sequelae of more severe alcohol withdrawal such as delirium tremens or seizures. Patient also denies symptoms of worsening, decompensated liver disease including jaundice or scleral icterus. She has developed lower extremity edema lately. Her abdomen is distended yet tympanic. No GI bleeding, tea-colored urine, or cognitive changes associated with hepatic encephalopathy. Patient also has evidence of nonalcoholic fatty liver disease and several risk factors related to this. She acknowledges a diet likely high in sodium and refined sugars and carbohydrates. She has hypertension, well controlled on medication, abdominal obesity, an elevated BMI, and a family history of diabetes. It was explained to her that these are all risk factors for fatty liver disease.Medical history is remarkable for DVT for which she recieved a course of Warfarin in 2014. Liver Symptoms or Concerns This is a 49 year-old female presenting to clinic today for ongoing follow-up of alcoholic and nonalcoholic fatty liver disease which has possibly progressed to cirrhosis. She has been monitored for the past 4-5 years regarding these concerns, has been stable, but not been able to completely quit drinking. She is on a hepatoma screening protocol with labs and liver ultrasound every six months.Labs from her most recent office visit on 06/16/14 were as follows: alpha fetoprotein, tumor marker 11.1, total protein 8.3, albumin 3.9, total bilirubin 0.4, direct bilirubin 0.3, alkaline phosphatase 147, AST 142, ALT, 82, INR 1.1, WBC 10.9, hemoglobin 14.2, platelets 234.Patient returns to clinic today stating that she continues to drink about 2-3 glasses of wine daily. She has made no attempts to quit and expressed mixed feelings about this as she knows she needs to stop drinking, but has no strong desire in doing so. She reports support from her and daughter to attain sobriety, but has not sought professional treatment and expresses little interest in receiving treatment. The effects of continued alcohol consumption were revisited in detail with patient and she is well aware of the correction consequences alcohol use can have for her. She reports shakiness if she hasn't drank for a long enough period of time. She denies sequelae of more severe alcohol withdrawal such as delirium tremens or seizures. Patient also denies symptoms of worsening, decompensated liver disease including jaundice or scleral icterus, fluid retention in the abdomen or lower extremity edema, GI bleeding, tea-colored urine, or cognitive changes associated with hepatic encephalopathy. Patient also has evidence of nonalcoholic fatty liver disease and several risk factors related to this. She acknowledges a diet likely high in sodium and refined sugars and carbohydrates. She reports not consuming soft drinks. She has hypertension, well controlled on medication, abdominal obesity, an elevated BMI, and a family history of diabetes. It was explained to her that these are all risk factors for fatty liver disease.Patient was also wearing a walking boot to support her right foot due to a lisfranc midfoot fracture-disolcation. Patient said she is to have surgery on this in the future, but was also found to have a blood clot on the same leg and will be on warfarin until the end of January. Liver Symptoms or Concerns Mike Chaparro is a pleasant 48-year-old female who returns to clinic today for routine six-month followup of alcoholic cirrhosis and fatty liver. We have been seeing her for the past four years regarding this. She has been stable, although she has never been able to completely quit drinking. When I saw her six months ago, she reported drinking two beers a week. We have her on a hepatoma screening protocol with labs and liver ultrasound every six months and these exams have remained stable.Upon entering the room today, I could see that the patient was visibly upset. When I asked about this, she started to cry and admitted that she has gone back to drinking heavily. For at least the past month, she has been drinking eight glasses of wine a day, on the weekends she will drink even more. She states that she started drinking more because she was feeling shaky if she did not drink. She felt that the alcohol would help or not to be shaky but then she could not help herself from Functional Status Date Functional Assessmen t No Information Instructions Date Instruction Additional Infor isac Cirrhosis Related to Alcoh olic cirrhosis of liver without ascites Sodium Controlled Diet - 2 grams Related to Alcoholic cirrhosis of liver without ascites Lifestyle education regarding di et Related to Dietary counseling and surveillance Cirrhosis Related to Alcoh olic cirrhosis of liver without ascites Sodium Controlled Diet - 2 grams Related to Alcoholic cirrhosis of liver without ascites Lifestyle education regarding di et Related to Dietary counseling and surveillance Sodium Controlled Diet - 2 grams Related to Cirrhosis of liver without ascites, unspecified hepatic cirrhosis type Cirrhosis Related to Cirrh osis of liver without ascites, unspecified hepatic cirrhosis type Ultrasound Liver Lifestyle education regarding di et Related to Dietary counseling and surveillance CT Colography Colon Cancer Prevention Related to Colon polyp Colon Polyps Related to Colon polyp Lifestyle education regarding di et Related to Dietary surveillance and counseling Abdomen CT WITHOUT and WITH Cont rast At this point, she w ill need to quit drinking but I do not think she will be able to do it on her own. I will speak with our hepatologists to see what they recommend in terms of options for treatment programs. She would like to try Ativan to help with her shaking. I explained that while this might help, it will not help her to quit drinking and she needs to seek further help for this. She understands the risks associated with ongoing heavy alcohol use but for some reason, she is very opposed to any kind of treatment program. I will be in touch with the patient after I see her lab results from today and after I speak with the cable television technician. 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
--- OUTSIDE RECORDS SUMMARY | 2023-10-16 05:43 | XMS_ITS | Continuity of Care Document ---
Author Name Unknown Organization [facility] Address [address] [place] [address] Phone Care Team Providers Care Reprint Sorter Name Role Phone Kay MESSER MD, Osvaldo Unavailable Unavailable Advance Directives Directive Yes / No Effective Date File Name No Information Encounters Encounter Description Practice Location Reason(s) For Visit Diagnoses Date Provider Providers Copied on Encounter [facility], [address], [place], [place], [id number], [place] tel:[phone] No Information 0 Kay Riley. [address], [place], [address], [place]. tel:[phone] Referring Provider: Osvaldo Julien, [address] [place], [place], [facility]. tel:[phone] Family History Family Member Type Diagnosis Age At Onset No Information Payers Payer name Insurance type Covered constitution party ID Authoriza tijamee(s) [employer] BL [id number] Social History Type Description Quantity Date Captured Comments Sex Female Smoking Status No Information Chief Complaint And Reason For Visit No Information Reason For Referral Reason For Referral No Information History Of Present Illness Encounter Date Complaint History Of Prese nt Illness No Information Functional Status Date Functional Assessmen t No Information Instructions Date Instruction Additional Infor mation No Information Assessments Type Assessment Date No Information Patient Care Teams Name Effective Dates (start - stop) Status Members No Information
--- OUTSIDE RECORDS SUMMARY | 2023-10-16 05:43 | XMS_ITS | Clinical Summary ---
Author Name Unknown Organization [facility] s [facility] Address [place], [place] [address] Care Team Providers Care Account Administrator Name Role Phone Jacob Hernandez MD Unavailable [phone] Tiarra Campos MD Unavailable [phone] Elissa Barnes Primary Care Provider Nino Cadet MD Unavailable [phone] [facility] [place] Unavailable Allergies Active Allergy Reactions Criticality Noted Date Comments Adhesive Contact Dermatitis 10/17/2013 Reaction to steri-strips Adhesive Tape-Silicones Rash 10/09/2016 Aspirin Bleeding 04/16/2012 Amoxicillin-Pot Clavulanate GI Upset 03/31/2007 Other reaction(s): GI Upset stomach pains stomach pains stomach pains Sulfamethoxazole-Trime thoprim Rash,Itching 04/22/2022 Capsaicin Erythema 12/30/2022 Clavulanic Acid Other - Describe In Comment Field Other reaction(s): Upset stomach Hydrocodone Tachycardia 12/17/2007 Other reaction(s): Tachycardia Heart races.?Tolerates oxycodone OK. Other reaction(s): Tachycardia Heart races. ??Tolerates oxycodone OK. Ibuprofen Bleeding 07/10/2021 Naproxen *Unknown - Pt Doesn' t Remember,Nausea And Vomiting 10/17/2013 Tolmetin *Unknown 04/16/2012 Medications Medication Sig Dispensed Refills Start Date End Date Status WalkerIndications: Peripheral polyneuropathy Walker for home use 99mos, diagnosis peripheral [id number] 1 Device 0 09/10/20 16 Active Elevated Toilet Seat with ArmsIndications:Po lyneuropathy associated with underlying disease (HC) For home use.HG63 polyneuropathy 1 Device 0 12/18/19 17 Active DEEP SEA NASAL SPRAY 0.65 % nasal solution Inhale 2 Sprays in the nostril(s) once daily if needed for Nasal Dryness. 0 09/17/20 17 Active cholecalciferol (VITAMIN D3) 5,000 unit capsule Take 5,000 Units by mouth once daily. 0 Active durable medical equipment (DME)Indications:C IDP (chronic inflammatory demyelinating polyneuropathy) (HC) bedrails for mobility, Adaptive utensils for feeding. DiagnosisCIDP. 1 Each 0 02/27/20 18 Active Diaper,Brief, Adult,DisposableIn dications:Urinary incontinence, unspecified type For home use diagnosis urinary incontinence 144 Each 12 07/29/20 18 Active acetaminophen (TYLENOL EXTRA STRGTH) 500 mg tablet 0 01/02/20 19 Active multivitamin (MVI) tablet Take 1 tablet by mouth. 0 09/22/20 18 Active SENNA PLUS 8.6-50 mg tablet 0 12/29/19 19 Active Methyl Salicylate-Menthol (ICY HOT) 30-10 % topical creamIndications:P athological fracture in other disease, left femur, subsequent encounter for fracture with routine healing Apply topically to affected area(s). 0 01/22/20 19 Active calcium carbonate-vitamin D3, 500 mg-400 units, (OSCAL 500 + D) tablet Take 1 tablet by mouth 2 times daily before meals. 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),Frequent falls Motorized 3 wheel scooter with walker javier-diagnosis cidpG61.81,frequent itcwcR00.6 1 Each 0 06/10/20 19 Active miscellaneous medical supply miscIndications:CI DP (chronic inflammatory demyelinating polyneuropathy) (HC) Smart knit stockings (2) pair diagnosis cidpG61.81 to use as directed daily under braces 2 Units 0 10/26/19 20 Active durable medical equipment (DME)Indications:F requent falls Patient lift manual 5casterdrive to use as directed 1 Each 0 12/20/19 20 Active calcitonin salmon, 200 units per actuation, nasal (MIACALCIN, FORTICAL) 200 unit/actuation nasal sprayIndications:C ompression fracture of L1 vertebra with routine healing, subsequent encounter Inhale 1 [place] in the nostril(s) once daily. Alternating nostrils daily. 1 Bottle 0 10/23/19 Active Grab BarIndications:Hep atic cirrhosis, unspecified hepatic cirrhosis type, unspecified whether ascites present (HC),CIDP (chronic inflammatory demyelinating polyneuropathy) (HC),Muscular deconditioning As directed. 1 Device 0 12/15/19 Active durable medical equipment (DME)Indications:O steoporosis, unspecified osteoporosis type, unspecified pathological fracture presence,Compressi on fracture of L1 vertebra with routine healing, subsequent encounter,Hepatic cirrhosis, unspecified hepatic cirrhosis type, unspecified whether ascites present (HC),CIDP (chronic inflammatory demyelinating polyneuropathy) (HC) Two shower bars, toilet grab bar and threshold 2 Each 0 01/01/20 21 Active wheelchairIndicati ons:CIDP (chronic inflammatory demyelinating polyneuropathy) (HC),Weakness of lower extremity, unspecified laterality Wheelchair: Standard with leg rests: (Swing away Length of need: 99 months) 1 Each 0 04/09/20 Active neomycin-polymyxin -hydrocortisone (CORTISPORIN OTIC) otic suspensionIndicati ons:Acute infective otitis externa, right Place 3 Drops into right ear 3 times daily. 10 mL 0 05/27/20 22 Active durable medical equipment (DME)Indications:C IDP (chronic inflammatory demyelinating polyneuropathy) (HC),Weakness of lower extremity, unspecified laterality New batteries for scooter. 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 90 Tablet 0 01/31/20 23 Active nystatin (MYCOSTATIN) creamIndications:I ntertrigo APPLY TOPICALLY TO AFFECTED AREAS TWICE DAILY NEEDED 30 g 10 03/16/20 23 Active hydrocortisone (HYTONE) 2.5 % ointmentIndication s:Angular cheilitis APPLY TOPICALLY TO AFFECTED AREA(S) TWICE DAILY. 28.35 g 10 03/16/20 23 Active Lubricant Eye Drops 0.5 % drop ophthalmic dropsIndications:D ry eye Place 1-2 Drops into both eyes every 2 hours if needed for Dry Eyes. 30 mL 5 04/27/20 23 Active cyanocobalamin (VITAMIN B12) 1,000 mcg/mL injectionIndicatio ns:B12 deficiency INJECT 1ML INTRAMUSCULARLY EVERY 4 WEEKS 3 mL 2 05/15/20 23 Active Vitamin B-1, mononitrate, 100 mg tabletIndications: Thiamine deficiency TAKE 1 TABLET BY MOUTH EVERY DAY 30 Tablet 10 06/19/20 23 Active alendronate (FOSAMAX) 70 mg tabletIndications: Osteoporosis, unspecified osteoporosis type, unspecified pathological fracture presence,Compressi on fracture of L1 vertebra with routine healing, subsequent encounter TAKE 1 TABLET BY MOUTH ONCE A WEEK IN THE MORNING ON AN EMPTY STOMACH WITH A FULL GLASS OF WATER DO NOT LIE DOWN FOR 1 HOUR 12 Tablet 3 09/11/20 23 Active gabapentin (NEURONTIN) 600 mg tabletIndications: Idiopathic peripheral neuropathy Take 2 Tablets (1,200 mg) by mouth three times daily. SEPARATE FROM ANTACIDS 540 Tablet 3 09/11/20 23 Active pantoprazole (PROTONIX) 40 mg delayed-release tabletIndications: Chronic GERD Take 1 Tablet (40 mg) by mouth once daily before a meal. 90 Tablet 3 09/11/20 23 Active spironolactone (ALDACTONE) 50 mg tabletIndications: Hepatic cirrhosis, unspecified hepatic cirrhosis type, unspecified whether ascites present (HC) Take 1 Tablet (50 mg) by mouth every morning. 90 Tablet 3 09/11/20 23 Active thiamine (Vitamin B-1) 100 mg tabletIndications: Thiamine deficiency Take 1 Tablet (100 mg) by mouth once daily. 90 Tablet 3 09/11/20 23 Active clindamycin (CLEOCIN) 300 mg capsuleIndications :S/P hardware removal TAKE 2 CAPSULES BY MOUTH 1 HOUR PRIOR TO DENTAL APPTOINTMENT 10 Capsule 0 09/02/20 23 Active triamcinolone (ARISTOCORT; KENALOG) 0.1 % creamIndications:R gladys APPLY TOPICALLY TO AFFECTED AREAS THREE TIMES A DAY 240 g 10 09/06/20 23 Active furosemide (LASIX) 20 mg tabletIndications: Alcoholic cirrhosis of liver without ascites (HC) TAKE 1 TABLET BY MOUTH EVERY MORNING 90 Tablet 0 09/06/20 23 Active lidocaine 5 % topical patchIndications:C ompression fracture of L1 vertebra with routine healing, subsequent encounter APPLY 1 PATCH TOPICALLY ONTO PAINFUL AREA OF SKIN THAT IS DRY, CLEAN,HAIRLESS FOR UP TO 12 WITHIN A 24 HOUR PERIOD *12 HOURS ON AND 12 HOURS OFF* 90 Patch 0 09/06/20 Active Insulin Syringe-Needle U-100 1 mL 25 x 1 syrgIndications:B1 2 deficiency As directed. [facility]: [id number] 100 Each 09/11/20 23 Active citalopram (CELEXA) 20 mg tabletIndications: Depression, major, in remission (HC) Take 1 Tablet (20 mg) by mouth every morning. 90 Tablet 3 09/11/20 23 Active levothyroxine (SYNTHROID) 50 mcg tabletIndications: Essential hypertension,Hypot hyroidism (acquired) Take 1 Tablet (50 mcg) by mouth before breakfast. 90 Tablet 3 09/11/20 23 Active metFORMIN (GLUCOPHAGE) 500 mg tabletIndications: Type 2 diabetes mellitus without complication, without long-term current use of insulin (HC) TAKE ONE (1) TABLET BY MOUTH TWICE DAILY WITH MEALS 180 Tablet 3 09/11/20 23 Active mirabegron EXTENDED-release (Myrbetriq) 25 mg tabletIndications: OAB (overactive bladder) Take 1 Tablet (25 mg) by mouth once daily. 90 Tablet 3 09/11/20 23 Active oxybutynin XL (DITROPAN XL) 10 mg CR tabletIndications: Urinary urgency Take 1 Tablet (10 mg) by mouth once daily. 90 Tablet 3 09/11/20 23 Active pramipexole (MIRAPEX) 0.5 mg tabletIndications: Restless legs TAKE 1 TABLET BY MOUTH IN THE MORNING DAILY ~108Q2 AND TAKE 2 TABLETS AT BEDTIME 270 Tablet 3 09/11/20 Active traZODone (DESYREL) 100 mg tabletIndications: Insomnia, idiopathic TAKE 1 TABLET BY MOUTH ONCE DAILY AT BEDTIME 90 Tablet 3 09/11/20 Active glycerin, adult, suppositoryIndicat ions:Chronic constipation Insert 1 Suppository rectally once daily if needed for Constipation. 25 Suppository 0 09/11/20 Active acyclovir (ZOVIRAX) 800 mg tabletIndications: Herpes simplex TAKE 1 TABLET BY MOUTH THREE TIMES DAILY FOR 5 DAYS. Take as needed for herpes outbreak. 0 09/22/20 Active nystatin powder (MYCOSTATIN) powderIndications: Skin infection Apply 1 Strip topically to affected area(s) three times daily. 60 g 2 09/23/20 Active acyclovir (ZOVIRAX) 800 mg tabletIndications: Herpes simplex TAKE 1 TABLET BY MOUTH THREE TIMES DAILY FOR 5 DAYS 15 Tablet 10 02/11/20 23 023 Discontinu ed(Reorder (E-cancel not sent)) gabapentin (NEURONTIN) 600 mg tabletIndications: Idiopathic peripheral neuropathy TAKE 2 TABLETS BY MOUTH 3 TIMES DAILY *SEPERATE FROM ANTACIDS* 540 Tablet 1 09/06/20 23 023 Discontinu ed(Duplica te therapy (E-cancel not sent)) cephalexin (KEFLEX) 500 mg capsuleIndications :Cellulitis of skin Take 1 Capsule (500 mg) by mouth three times daily for 10 days. 30 Capsule 0 09/11/20 23 023 Active Problems Problem Noted Date Diagnosed Date Depression, major, in remission 12/30/2022 Type 2 diabetes mellitus wit hout complication, without long-term current use of insulin 12/30/2022 Asymmetrical sensorineural hearing loss 06/26/20 22 Hypothyroidism (acquired) 09/07/2020 S/P hardware removal 04/16/2020 Acute cystitis with hematuria 07/27/2019 Primary osteoarthritis of left knee 11/16/2017 Restless leg syndrome 11/16/2017 IgM lambda monoclonal gammopathy 11/16/2017 CIDP (chronic inflammatory demyelinating polyneu ropathy) 12/11/2016 Urinary urgency 10/20/2016 Incomplete bladder emptying 10/20/2016 Depression with anxiety 05/29/2016 H/O cold sores 05/29/2016 MAX 12/22/2004 AHI-19 02/21/2016 Overview: Patient states she doesn't use CPAP or use any other treatment Alcoholic cirrhosis of liver with ascites 2014 Overview: Fatty liver Peripheral neuropathy 04/25/2015 Charcot's joint of right foot, non-diabetic 04/05 Excessive drinking alcohol 07/31/2011 Hyponatremia 03/03/2010 Lumbar radiculopathy 02/28/2010 HTN (hypertension) 02/28/2010 Allergic rhinitis, cause unspecified 03/31/2007 Resolved Problems Problem Noted Date Diagnosed Date Resolved Date UTI (urinary tract infection) 11/17/2017 09/07/2020 Anticoagulation monitoring, INR range 2-3 04/05/2015 05/29/2016 Right leg DVT 04/05/2015 09/07/2020 Overview: Occurred in 2014 while in a camboot for a foot injury Hypokalemia 07/31/2011 05/29/2016 Hepatitis, unspecified 02/28/201007/31 Hepatomegaly 02/28/2010 05/29/2016 Fever 02/28/2010 07/31/2011 Elevated LFT's 02/28/2010 05/29/2016 Unspecified essential hypertension 03/31/2007 05/29/2016 Encounters Date Type Department Care Team Description 10/14/2023 9:00 AM BOOK RETAILER Home Care Visit [facility] [address] [place] [phone] Nikos Perez, PT PT - REASSESSMENT 10/14/2023 Telephone [facility] [address] [place] [phone] Nikos Perez, PT Home Care 10/09/2023 3:20 PM BOOK RETAILER Orders Only [facility] [address] [facility] [place] [address] [place], [place] Lab 10/09/2023 Travel 10/09/2023 Telephone [facility] [address] [place] [address] Elissa Barnes PA Questions (Stomach issues) 10/07/2023 3:15 PM BOOK RETAILER Home Care Visit [facility] [address] [place] [phone] Nikos Perez, PT PT - MISSED VISIT 09/30/2023 9:30 AM BOOK RETAILER Home Care Visit [facility] [address] [place] [phone] Nikos Perez, PT PT - HOME VISIT 09/30/2023 Travel 09/23/2023 Telephone [facility] [address] [place] [address] Elissa Barnes PA Medication Management (ANTIBIOTIC PRESCRIPTION) 09/22/2023 8:45 AM BOOK RETAILER Home Care Visit [facility] [address] [place] [phone] Nikos Perez, PT PT - HOME VISIT 09/22/2023 Travel 09/16/2023 8:45 AM BOOK RETAILER Home Care Visit [facility] [address] [place] [phone] Nikos Perez, PT PT - OASIS START OF CARE 09/16/2023 Telephone [facility] [address] [place] [address] Elissa Barnes PA Refill Request (suppository) 09/16/2023 Telephone [facility] [address] [place] [address] Elissa Barnes PA Questions (VRE BACTERIA) 09/16/2023 Telephone [facility] [address], [place] [address] iNkos Perez, PT Home Care 09/16/2023 Plan of Care Documentation [facility] [address] [place] [phone] 09/11/2023 7:30 AM BOOK RETAILER Office Visit [facility] [address] [facility] [place] [address] Elissa Barnes PA Medicare ANNUAL (subsequent) Visit (58 years old); Fatigue (Always tired); Throat Problem (Sometimes hard to swallow food. Always clearing throat.. Will gag when not eating.); Musculoskeletal Problem (Lower back pain ); Derm Problem (Sore on leg / sores and bleeding under tummy) 09/11/2023 Telephone [facility] [address] [place] [phone] Marion Villanueva RN 09/11/2023 Travel 09/10/2023 Orders Only [facility] Scanner 1 scan: (1-Ord) INCOMING RECORDS-DIABETIC EYE, [facility], 09/10/2023 09/04/2023 Refill [facility] [address] [facility] [place] [address] Elissa Barnes PA Refill Request (Levothyroxine, Gabapentin, Pramipexole, Triamcinolone, Furosemide, Metformin, Myrbetriq, Lidocaine, Citalopram, Trazodone) 09/02/2023 Telephone [facility] [address] [facility] [place] [address] Elissa Barnes PA Need Meds 08/17/2023 9:45 AM BOOK RETAILER Ancillary Procedure [facility] [address] [facility] [place] [address] 08/17/2023 9:10 AM BOOK RETAILER Orders Only [facility] [address] [place] [address] Lab, [place] Outside Order (Andres) 08/17/2023 Travel from Last 3 Months Immunizations Name Administration Dates Next Due AMB INFLUENZA, IIV4 (AGE=>6M OS) MDV (Flu Clinic Only) 07/14/2020 COVID-19 vaccine (Pfizer-Bio NTech 30mcg/0.3mL) 12YO+ TOAN-SUCROSE PF, MDV 03/17/2022 COVID-19 vaccine (Pfizer-Bio NTech 30mcg/0.3mL) PF, MDV 09/09/2021 Influenza A (H1N1), Inactivated 08/14/2009 Influenza A (H1N1), Inactiva pritesh (Age >=3 Years) 08/14/2009 Influenza Intradermal PF 18-64 yrs 06/14/2012 Influenza Virus, Unspecified 07/08/2019, 07/08/2017,07/09/2016,2011,06/18/2011,08/05/2007,08/14/2006,1 ,09/06/2004,08/08/2003 Influenza, IIV3 (Age 6-35 mos) 07/07/2018 Influenza, IIV3 (Age >=3 years) 07/09/20 21,07/06/2013,06/18/2011,2006,08/14/2006,07/29/2005,09/06/2004,1 10/08/2002 Influenza, IIV4 07/14/2020, 9,07/09/2016,2008 Influenza, IIV4 (=>6mos) MDV 07/08/2019,07/08/20 17 Influenza, Intradermal Inactivated 06/14/2012 Influenza,CCIIV4 PRESERV FREE 07/31/2022 Pneumococcal Poly,23-Valent (Pneumovax) 04/02/2017 Pneumococcal conj 13-Valent (Prevnar 13) 10/06/2018 Td (Age >=7 Years) 03/25/2004,11/11/1994 Td, Preservative Free (age > = 7 Years) 03/25/2004,11/11/1994 Tdap 09/02/2022,09/06/2012 Zoster (Shingrix-RZV, recombinant) 09/07/2021, Family History Medical History Relation Name Comments Good Health Daughter Hyperlipidemia Father Hypertension Father Cancer Mother pancreatic dece ased Cancer-breast Sister 2 Relation Name Status Comments Daughter Father Mother Sister 1 Sister 2 Alive Social History Tobacco Use Types Packs/Day Years Used Date Smoking Tobacco: Former Cigarettes 1 7.5 1 984 - 03/31/1991 Smokeless Tobacco: Never Tobacco Cessation:Counseling Given: Yes Alcohol Use Standard Drinks/Week Comments Yes 0 (1 standard drink = 0.6 oz pur e alcohol) 2 glasses of wine per week PHQ-2 Answer Date Recorded PHQ-2 TOTAL SCORE 0 09/11/2023 Social Connections Answer Date Recorded Frequency of Communication with Friends and Fami ly Not on file 04/10/2023 Financial Resource Strain Answer Date R ecorded Difficulty of Paying Living Expenses 3 04/09/2022 Difficulty of Paying Living Expenses Not on file 04/09/2022 Food Insecurity Answer Date Recorded Worried About Running Out of Food in the Last Ye ar 1 04/09/2022 Transportation Needs Answer Date Record ed Lack of Transportation (Medical) 1 04/09/2022 Housing Stability Answer Date Recorded Unable to Pay for Housing in the Last Year 1 04/09/2022 Sex and Gender Information Value Date Recorded Sex Assigned at Not on file Gender Identity Not on file Sexual Orientation Not on file Obstetrics History Para Term AB IAB SAB Ectopic Multiple Livin g Live Births 1 10 05 Date Outcome GA Total Labor Labor/2nd/3rd Weight Sex Delivery Anes PTL Ashley A1 A5 Name Cl in Term Last Filed Vital Signs Vital Sign Reading Time Taken Comments Blood Pressure 116/70 10/14/2023 9:13 AM BOOK RETAILER Pulse 76 10/14/2023 9:13 AM BOOK RETAILER Temperature 36.3 ??C (97.3 ??F) 10/14/2023 9:13 AM CS T Respiratory Rate 16 10/14/2023 9:13 AM BOOK RETAILER Oxygen Saturation 96% 10/14/2023 9:13 AM BOOK RETAILER Inhaled Oxygen Concentration - - Weight 79.4 kg (175 lb) 10/14/2023 9:13 AM BOOK RETAILER Height 172.7 cm (5' 8) 09/11/2023 7:47 AM BOOK RETAILER Body Mass Index 26.61 09/11/2023 7:47 AM BOOK RETAILER Plan of Treatment Upcoming Encounters Date Type Department Care Team (Late st Contact Info) Description 10/20/2023 9:00 AM BOOK RETAILER Home Care Visit [facility] [address] [place] [phone] Nikos Perez, PT [address] [place], [place] [phone] 10/28/2023 3:00 AM BOOK RETAILER Home Care Visit [facility] [address] [place] [phone] Nikos Perez, PT [address] [place] [address] 11/04/2023 3:00 AM BOOK RETAILER Home Care Visit [facility] [address] [place] [phone] Nikos Perez, PT [address] [place] [address] 11/11/2023 3:00 AM BOOK RETAILER Appointment [facility] [address] [place] [phone] Nikos Perez, PT [address] [place] [address] Health Maintenance Due Date Last Done Comments Hepatitis B series for Conrado jorge (1 of 3 - 3-dose series) 1965 COVID-19 vaccine series ( season) 2023 09/04/2022, 03/17/2022, 09/09/2021, Additional history exists Influenza for age 50-64 06/05/2023 07/31/20 22, 07/09/2021, 07/14/2020, Additional history exists Mammogram for age 45-75 05/25/2024 05/25/20 23, 05/23/2022, 04/23/2021, Additional history exists BMI (ht and wt on same day) for age 18+ 09/11/2024 09/11/2023, 10/21/2022, 05/14/2022, Additional history exists Depression screening for age 12+ 09/11/2024 09/11/2023, 09/11/2023, 01/02/2023, Additional history exists Colonoscopy through age 75 09/07/2025 09/07/2015 Lipids for age 45-75 09/11/2028 09/11/2023, 10/28/2022, 09/10/2022, Additional history exists Pneumococcal series for age 6-64 (3 of 3 - PPSV23 or PCV20) 2029 10/06/2018, 04/02/2017 Tetanus booster 09/02/2032 09/02/2022, 12/2011, 03/25/2004, Additional history exists HIV for age 15-65 Completed 04/23/2016, 02/28/2010 Hepatitis C screening for ag e 18-79 Completed 09/09/2018, 02/28/2010 Zoster (shingles) series for age 50+ Completed 09/07/2021, 07/09/2021 Tdap Completed 09/02/2022, 09/06/2012 Medical Devices Implanted Type Area Destination Specialist Device Identifier Shelf Expiration Date Model / Serial / Lot M0.45 - [id number] Implanted:Qty: 1 on 05/29/2016 by Kane Donis DPM at [facility] Left: Toe 0.45 / / Description:0.45 kwire from tray Triathlon Tritanium Tibial Component Implanted:Qty: 1 on 11/16/2017 by Shay Sanders MD at [facility] Left: Knee [employer] 08/10/2022 / / [id number] Triathlon Ps Femoral Implanted:Qty: 1 on 11/16/2017 by Shay Sanders MD at [facility] Left: Knee [employer] 06/03/2022 / / [id number] Triathlon X3 Tibial Bearing Insert Ps Implanted:Qty: 1 on 11/16/2017 by Shay Sanders MD at [facility] Left: Knee [employer] 06/02/2022 / / [id number] Triathlon Tritanium Asymmetric Patella Implanted:Qty: 1 on 11/16/2017 by Shay Sanders MD at [facility] Left: Knee [employer] 06/29/2022 / / [id number] Procedures Procedure Name Priority Date/Time Associated Diagnosis Comments CLOSTRIDIOIDES DIFFICILE TOXIN PCR Routine 10/09/2023 3:20 PM BOOK RETAILER Acute diarrhea POTASSIUM,ISTAT Routine 09/11/2023 9:17 AM BOOK RETAILER Essential hypertension CREATININE,ISTAT Routine 09/11/2023 9:13 AM BOOK RETAILER Essential hypertension CBC WITH AUTO DIFFERENTIAL Add On 09/11/2023 9:11 AM BOOK RETAILER Hepatic cirrhosis, unspecified hepatic cirrhosis type, unspecified whether ascites present (HC) CBC WITH AUTO DIFFERENTIAL Add On 09/11/2023 9:11 AM BOOK RETAILER Hepatic cirrhosis, unspecified hepatic cirrhosis type, unspecified whether ascites present (HC) HEMOGLOBIN Routine 09/11/2023 9:11 AM BOOK RETAILER Essential hypertension COMP METABOLIC PANEL Routine 09/11/2023 9:11 AM BOOK RETAILER Essential hypertension HEMOGLOBIN A1C Routine 09/11/2023 9:11 AM BOOK RETAILER Type 2 diabetes mellitus without complication, without long-term current use of insulin (HC) LIPID PANEL W REFLEX MEASURED LDL Routine 09/11/2023 9:11 AM BOOK RETAILER Essential hypertension SCAN-EYE EXAM 09/10/2023 12:00 AM BOOK RETAILER US ABDOMEN LIMITED LIVER Routine 08/17/2023 9:57 AM BOOK RETAILER Alcoholic cirrhosis of liver without ascites (HC) CREATININE Routine 08/17/2023 9:19 AM BOOK RETAILER Alcoholic cirrhosis of liver without ascites (HC) HEPATIC FUNCTION PANEL Routine 3 9:19 AM BOOK RETAILER Alcoholic cirrhosis of liver without ascites (HC) AFP TUMOR MARKER SERUM Routine 9:19 AM BOOK RETAILER Alcoholic cirrhosis of liver without ascites (HC) PROTIME-INR Routine 08/17/2023 9:19 AM BOOK RETAILER Alcoholic cirrhosis of liver without ascites (HC) CBC W PLT NO DIFF Routine 08/17/2023 9:1 9 AM BOOK RETAILER Alcoholic cirrhosis of liver without ascites (HC) from Last 3 Months Results * CLOSTRIDIOIDES DIFFICILE TOXIN PCR (10/09/2023 3:20 PM BOOK RETAILER) CLOSTRIDIUM DIFFICILE PCR Negative 10/09/2023 11:21 PM BOOK RETAILER [facility] PRESUMPTIVE NAP1 STRAIN Negative 10/09/2023 11:21 PM BOOK RETAILER [facility] Stool STOOL SPECIMEN / Unknown Non-Blood / Unknown 10/09/2023 3:20 PM BOOK RETAILER 10/09/2023 3:41 PM BOOK RETAILER Narrative [facility] - 10/09/2023 11:21 PM BOOK RETAILER The NAP1 (027 or BI) strain is a hypervirulent strain. Detection may be useful for epidemiological purposes. Elissa ENNIS MICROBIOLOGY Performing Organization Address City/[facility] - [address]/ZIP Co de Phone Number [facility] [address] [place] [phone], [place] * POTASSIUM,ISTAT (09/11/2023 9:17 AM BOOK RETAILER) Pathologist [facility] [place] POTASSIUM, POCT 3.5 3.5 - 5.0 mmol/L 09/11/2023 9:20 AM BOOK RETAILER [facility] Blood BLOOD SPECIMEN / Unknown 09/11/2023 9:17 AM BOOK RETAILER 09/11/2023 9:20 AM BOOK RETAILER Elissa ENNIS CHEMISTRY [facility] [address] [place] [address], [place] [phone] * (ABNORMAL) CREATININE,ISTAT (09/11/2023 9:13 AM BOOK RETAILER) Pathologist [facility] [place] CREATININE, POCT 0.50(L) 0.57 - 1.11 mg/dL 09/11/2023 9:20 AM BOOK RETAILER [facility] Comment:Caution: Patients ta [place] Hydroxyurea have falsely increased iStat Creatinine results. Verify creatinine results ordering a Creatinine (15452.2) eGFR >90 >90 mL/min/1.7 3m2 09/11/2023 9:20 AM [facility] Comment:As of 2021, eG FR is calculated by the CKD-EPI creatinine equation without race adjustment. eGFR can be influenced by muscle mass, exercise, and diet. The reported eGFR is an estimation only and is only applicable if the renal function is stable. Blood BLOOD SPECIMEN / Unknown 09/11/2023 9:13 AM BOOK RETAILER 09/11/2023 9:20 AM [facility] Elissa ENNIS CHEMISTRY [facility] [address] [place] [address], * (ABNORMAL) CBC WITH AUTO DIFFERENTIAL (09/11/2023 9:11 AM BOOK RETAILER) WHITE BLOOD COUNT 4.7 4.5 - 11.0 thou/cu mm 09/11/2023 11:05 AM [facility] RED BLOOD COUNT 4.00 4.00 - 5.20 mil/cu mm 09/11/2023 11:05 AM [facility] HEMOGLOBIN 14.0 12.0 - 16.0 g/dL 09/11/2023 11:05 AM [facility] HEMATOCRIT 41.3 33.0 - 51.0 % 09/11/2023 11:05 AM [facility] MCV 103(H) 80 - 100 fL 09/11/2023 11:05 AM [facility] MCH 35.0(H) 26.0 - 34.0 pg 09/11/2023 11:05 AM [facility] MCHC 33.9 32.0 - 36.0 g/dL 09/11/2023 11:05 AM [facility] RDW 12.9 11.5 - 15.5 % 09/11/2023 11:05 AM [facility] PLATELET COUNT 110(L) 140 - 440 thou/cu mm 09/11/2023 11:05 AM [facility] MPV 11.1(H) 6.5 - 11.0 fL 09/11/2023 11:05 AM [facility] % NEUT 61.9 % 09/11/2023 11:05 AM [facility] % LYMPH 29.5 % 09/11/2023 11:05 AM [facility] % MONO 7.6 % 09/11/2023 11:05 AM [facility] % EOS 0.6 % 09/11/2023 11:05 AM [facility] % BASO 0.4 % 09/11/2023 11:05 AM [facility] ABSOLUTE NEUTROPHILS 2.9 1.7 - 7.0 thou/cu mm 09/11/2023 11:05 AM [facility] ABSOLUTE LYMPHOCYTES 1.4 0.9 - 2.9 thou/cu mm 09/11/2023 11:05 AM [facility] ABSOLUTE MONOCYTES 0.4 <0.9 thou/cu mm 09/11/2023 11:05 AM [facility] ABSOLUTE EOSINOPHILS 0.0 <0.5 thou/cu mm 09/11/2023 11:05 AM [facility] ABSOLUTE BASOPHILS 0.0 <0.3 thou/cu mm 09/11/2023 11:05 AM [facility] Blood BLOOD SPECIMEN / Unknown Venipuncture / Unknown 09/11/2023 9:11 AM BOOK RETAILER 09/11/2023 9:13 AM [facility] Elissa ENNIS HEMATOLOGY [facility] [address] [place] [address], * LIPID PANEL W REFLEX MEASURED LDL (09/11/2023 9:11 AM BOOK RETAILER) CHOLESTEROL,TOTAL 184 100 - 199 mg/dL 09/11/2023 4:35 PM BOOK RETAILER [facility] Comment: Cholesterol, Total Reference Ranges Desirable <200 mg/dL Borderline 200-239 mg/dL High >=240 mg/dL TRIGLYCERIDES 144 <150 mg/dL 09/11/2023 4:35 PM BOOK RETAILER [facility] HDL CHOLESTEROL 46 >40 mg/dL 4:35 PM BOOK RETAILER [facility] NON-HDL CHOLESTEROL 138 <145 mg/dl 09/11/2023 4:35 PM BOOK RETAILER [facility] CHOL/HDL RATIO 4.00 <4.50 09/11/2023 4:35 PM BOOK RETAILER [facility] LDL CHOLESTEROL 109 <=130 mg/dL 09/11/2023 4:35 PM BOOK RETAILER [facility] VLDL CHOLESTEROL 29 <=30 mg/dL 09/11/2023 4:35 PM BOOK RETAILER [facility] PROVIDER ORDERED STATUS RANDOM 09/11/2023 4:35 PM [facility] Blood BLOOD SPECIMEN / Unknown Venipuncture / Unknown 09/11/2023 9:11 AM BOOK RETAILER 09/11/2023 9:13 AM BOOK RETAILER Elissa ENNIS CHEMISTRY [facility] [address] [place] [address], [place] * (ABNORMAL) HEMOGLOBIN (09/11/2023 9:11 AM BOOK RETAILER) HEMOGLOBIN 13.9 12.0 - 16.0 g/dL 09/11/2023 9:20 AM BOOK RETAILER [facility] MCV 101(H) 80 - 100 fL 09/11/2023 9:20 AM BOOK RETAILER [facility] Blood BLOOD SPECIMEN / Unknown Venipuncture / Unknown 09/11/2023 9:11 AM BOOK RETAILER 09/11/2023 9:13 AM BOOK RETAILER Elissa ENNIS HEMATOLOGY [facility] [address] [place] [address], [place] [phone] * HEMOGLOBIN A1C MONITORING (POCT) (09/11/2023 9:11 AM BOOK RETAILER) [facility] HEMOGLOBIN A1C MONITORING (POCT) 4.9 <=6.4 % 09/11/2023 9:59 AM BOOK RETAILER [facility] Blood BLOOD SPECIMEN / Unknown Venipuncture / Unknown 09/11/2023 9:11 AM BOOK RETAILER 09/11/2023 9:13 AM BOOK RETAILER Narrative [facility] - 09/11/2023 9:59 AM BOOK RETAILER ? (<=6.9%) ? Indicates good control ? (7.0% to 7.9%) ? Indicates fair control ? (>=8.0%) ? Indicates poor control ?? NOTE: ??These thresholds are guidelines and ?individual targets may vary. Falsely low levels may be seen with: Recent Transfusion, Recent Significant Blood Loss, Hemolytic Diseases, or Falsely elevated levels may be seen with: Untreated Anemias, Splenectomy ? Elissa ENNIS CHEMISTRY [facility] [address] [place] [address], * (ABNORMAL) COMP METABOLIC PANEL (09/11/2023 9:11 AM BOOK RETAILER) [facility] SODIUM 139 136 - 145 mmol/L 09/11/2023 4:35 PM [facility] POTASSIUM 3.6 3.5 - 5.1 mmol/L 09/11/2023 4:35 PM [facility] CHLORIDE 96(L) 98 - 107 mmol/L 09/11/2023 4:35 PM [facility] CO2,TOTAL 30(H) 22 - 29 mmol/L 09/11/2023 4:35 PM [facility] ANION GAP 13 5 - 18 09/11/2023 4:35 PM [facility] GLUCOSE 106(H) 70 - 99 mg/dL 09/11/2023 4:35 PM [facility] CALCIUM 9.5 8.6 - 10.0 mg/dL 09/11/2023 4:35 PM [facility] BUN 5(L) 6 - 20 mg/dL 09/11/2023 4:35 PM [facility] CREATININE 0.53 0.50 - 0.90 mg/dL 09/11/2023 4:35 PM [facility] BUN/CREAT RATIO 9(L) 10 - 20 4:35 PM [facility] eGFR >90 >90 mL/min/1.7 3m2 09/11/2023 4:35 PM [facility] Comment:As of 2021, eG FR is calculated by the CKD-EPI creatinine equation without race adjustment. ??eGFR can be influenced by muscle mass, exercise, and diet. ??The reported eGFR is an estimation only and is only applicable if the renal function is stable. ALBUMIN 3.6(L) 4.0 - 4.9 g/dL 09/11/2023 4:35 PM [facility] PROTEIN,TOTAL 7.4 6.0 - 8.0 g/dL 09/11/2023 4:35 PM [facility] BILIRUBIN,TOTAL 1.2 0.0 - 1.2 mg/dL 09/11/2023 4:35 PM [facility] ALK PHOSPHATASE 103 35 - 104 IU/L 09/11/2023 4:35 PM [facility] ALT (SGPT) 19 10 - 35 IU/L 09/11/2023 4:35 PM [facility] AST (SGOT) 55(H) 10 - 35 IU/L 09/11/2023 4:35 PM [facility] Blood BLOOD SPECIMEN / Unknown Venipuncture / Unknown 09/11/2023 9:11 AM BOOK RETAILER 09/11/2023 9:13 AM BOOK RETAILER Elissa ENNIS CHEMISTRY [facility] [address] [place] [address], [place] * SCAN-EYE EXAM (09/10/2023 12:00 AM BOOK RETAILER) Scanner OTHER * US ABDOMEN LIMITED LIVER (08/17/2023 9:57 AM BOOK RETAILER) Anatomical Region Laterality Modality LIVER Ultrasound 08/17/2023 10:1 5 AM BOOK RETAILER Impressions 08/17/2023 10:15 AM BOOK RETAILER Limited exam due to overlying bowel gas. Chronic liver disease with coarsened hepatic echotexture. No ascites. Chronic stone/sludge in the gallbladder without biliary obstruction. Dictated by Nikos Abraham MD @ Aug 17 2023 10:15AM (Electronically Signed) ?? Narrative 08/17/2023 10:15 AM BOOK RETAILER For Patients: ??As a result of the Cures Act, medical imaging exams and procedure reports are released immediately into your electronic medical record. ??You may view this report before your referring provider. ??If you have questions, please contact your health care provider. INDICATION: Alcoholic cirrhosis COMPARISON: 12/29/2022 TECHNIQUE: Real time belle scale imaging and color Doppler analysis was performed of the right upper quadrant. FINDINGS: Coarsened hepatic echotexture without intrahepatic mass. Visualized pancreas normal. Proximal aorta unremarkable. Echogenic material within the dependent gallbladder again noted measuring 2.6 cm. Gallbladder wall measures 2.8 millimeters. Common bile duct measures 7.6 millimeters. Right kidney measures 11.5 cm. No hydronephrosis. Normal IVC. Procedure Note Nikos Abraham MD - 08/17/2023 For Patients: As a result of the Cures Act, medical imagingexams and procedure reports are released immediately into your electronicmedical record. You may view this report before your referring provider.If you have questions, please contact your health care provider. INDICATION: Alcoholic cirrhosis COMPARISON: 12/29/2022 TECHNIQUE: Real time belle scale imaging and color Doppler analysis was performed ofthe right upper quadrant. FINDINGS: Coarsened hepatic echotexture without intrahepatic mass. Visualizedpancreas normal. Proximal aorta unremarkable. Echogenic material withinthe dependent gallbladder again noted measuring 2.6 cm. Gallbladder wallmeasures 2.8 millimeters. Common bile duct measures 7.6 millimeters. Rightkidney measures 11.5 cm. No hydronephrosis. Normal IVC. IMPRESSION: Limited exam due to overlying bowel gas. Chronic liver disease withcoarsened hepatic echotexture. No ascites. Chronic stone/sludge in thegallbladder without biliary obstruction. Dictated by Nikos Abraham MD @ Aug 17 2023 10:15AM (Electronically Signed) Tiarra Campos MD [place] * (ABNORMAL) CBC W PLT NO DIFF (08/17/2023 9:19 AM BOOK RETAILER) WHITE BLOOD COUNT 5.7 4.5 - 11.0 thou/cu mm 08/17/2023 9:27 AM [facility] RED BLOOD COUNT 3.84(L) 4.00 - 5.20 mil/cu mm 08/17/2023 9:27 AM [facility] HEMOGLOBIN 13.8 12.0 - 16.0 g/dL 08/17/2023 9:27 AM [facility] HEMATOCRIT 39.4 33.0 - 51.0 % 08/17/2023 9:27 AM [facility] MCV 103(H) 80 - 100 fL 08/17/2023 9:27 AM [facility] MCH 35.9(H) 26.0 - 34.0 pg 08/17/2023 9:27 AM [facility] MCHC 35.0 32.0 - 36.0 g/dL 08/17/2023 9:27 AM [facility] RDW 13.0 11.5 - 15.5 % 08/17/2023 9:27 AM [facility] PLATELET COUNT 116(L) 140 - 440 thou/cu mm 08/17/2023 9:27 AM [facility] MPV 10.3 6.5 - 11.0 fL 08/17/2023 9:27 AM [facility] Blood BLOOD SPECIMEN / Unknown Venipuncture / Unknown 08/17/2023 9:19 AM BOOK RETAILER 08/17/2023 9:22 AM BOOK RETAILER Narrative [facility] - 08/17/2023 9:27 AM BOOK RETAILER Notice: This testing was ordered by an outside provider. The provider who placed this order has reviewed and approved it for completion by the lab, but is not involved in this patient's care related to the ordering of this lab. The lab will provide the testing results for BMP on 02/17/23 \T\ AFP tumor marker, CBC, Creatinine, HFP, \T\ PT in 6 months approx 08/15/2023, to the outside provider, Dr. Tiarra Campos at fax number [phone], for that provider to inform and arrange appropriate follow up with the patient. Elissa ENNIS HEMATOLOGY Performing Organization Address [facility] [address]/ZIP Co de Phone Number [facility] [address] [place] [address], [place] [phone] * CREATININE (08/17/2023 9:19 AM BOOK RETAILER) eGFR >90 >90 mL/min/1.7 3m2 08/17/2023 5:34 PM BOOK RETAILER [facility] Comment:As of 2021, eG FR is calculated by the CKD-EPI creatinine equation without race adjustment. ??eGFR can be influenced by muscle mass, exercise, and diet. ??The reported eGFR is an estimation only and is only applicable if the renal function is stable. CREATININE 0.58 0.50 - 0.90 mg/dL 08/17/2023 5:34 PM BOOK RETAILER [facility] Blood BLOOD SPECIMEN / Unknown Venipuncture / Unknown 08/17/2023 9:19 AM BOOK RETAILER 08/17/2023 9:22 AM BOOK RETAILER Elissa ENNIS CHEMISTRY [facility] [address] [place] [address], [place] * (ABNORMAL) PROTIME-INR (08/17/2023 9:19 AM BOOK RETAILER) INR 1.2 <1.3 08/17/2023 3:47 PM BOOK RETAILER [facility] PROTIME 13.9(H) 10.3 - 12.3 sec 08/17/2023 3:47 PM BOOK RETAILER [facility] Blood BLOOD SPECIMEN / Unknown Venipuncture / Unknown 08/17/2023 9:19 AM BOOK RETAILER 08/17/2023 9:22 AM BOOK RETAILER Narrative [facility] - 08/17/2023 3:47 PM BOOK RETAILER ?Therapeutic Range 2.0-3.0 for most anticoagulated patients 2.5-3.5 or 4.0 for high risk patients The INR is only used for patients on stable oral anticoagulant therapy. It makes no significant contribution to the diagnosis or treatment of patients whose Protime is prolonged for other reasons. INR results are increased when heparin levels exceed 1.0 U/mL, which corresponds to an aPTT >125 seconds if the patient is on UFH. Elissa ENNIS HEMATOLOGY [facility] [address] [place] [address], * AFP TUMOR MARKER SERUM (08/17/2023 9:19 AM BOOK RETAILER) Pathologist [facility] [place] AFP TUMOR MARKER,SERUM 5.4 <=8.3 ng/mL 08/17/2023 10:52 PM BOOK RETAILER [facility] Blood BLOOD SPECIMEN / Unknown Venipuncture / Unknown 08/17/2023 9:19 AM BOOK RETAILER 08/17/2023 9:22 AM BOOK RETAILER Narrative [facility] - 08/17/2023 10:52 PM BOOK RETAILER The test method changed on 10/07/2022. If this test has been used for serial monitoring, rebaselining is recommended. Rebaselining consists of 2 measurements, collected 3-6 weeks apart. The [employer] AFP assay is an electrochemiluminescence immunoassay ECLIA performed on the [employer] e immunoassy analyzers. Values obtained with different assay methods may be different and cannot be used interchangeably. Biotin supplements may cause clinically significant interference for this test assay. If interference is suspected, it is strongly recomended that biotin is discontinued for at least one week prior to retesting. Elissa ENNIS SEND OUTS [facility] [address] [place] [address], * (ABNORMAL) HEPATIC FUNCTION PANEL (08/17/2023 9:19 AM BOOK RETAILER) Pathologist [facility] [place] ALBUMIN 3.4(L) 4.0 - 4.9 g/dL 08/17/2023 5:34 PM BOOK RETAILER [facility] PROTEIN,TOTAL 7.3 6.0 - 8.0 g/dL 08/17/2023 5:34 PM BOOK RETAILER [facility] BILIRUBIN,TOTAL 1.1 0.0 - 1.2 mg/dL 08/17/2023 5:34 PM BOOK RETAILER [facility] BILIRUBIN,DIRECT 0.5(H) 0.0 - 0.3 mg/dL 08/17/2023 5:34 PM BOOK RETAILER [facility] BILIRUBIN,INDIRE CT 0.6 0.2 - 0.8 mg/dL 08/17/2023 5:34 PM BOOK RETAILER [facility] ALK PHOSPHATASE 101 35 - 104 IU/L 08/17/2023 5:34 PM BOOK RETAILER [facility] ALT (SGPT) 23 10 - 35 IU/L 08/17/2023 5:34 PM BOOK RETAILER [facility] AST (SGOT) 52(H) 10 - 35 IU/L 08/17/2023 5:34 PM [facility] Blood BLOOD SPECIMEN / Unknown Venipuncture / Unknown 08/17/2023 9:19 AM BOOK RETAILER 08/17/2023 9:22 AM BOOK RETAILER Elissa ENNIS CHEMISTRY [facility] [address] [place] [address], from Last 3 Months Advance Directives Documents on File Type Date Recorded Patient Jboss Developer Expl anation Healthcare Directive 09/02/2021 9:12 AM H EALTH CARE DIRECTIVE POLST 10/17/2020 7:59 AM POLST 03/25 Latest Code Status on File Code Status Date Activated Date Inactivated Comments Full Code 11/16/2017 10:26 AM 11/19/2017 5:29 PM Code Status History Code Status Date Activated Date Inactivated Comments Full Code 11/16/2017 6:55 AM 11/16/2017 10:26 AM Full Code 05/29/2016 11:56 AM 05/29/2016 5:34 PM Question Answer Comments Code Status Discussion: Not Discussed Full Code 02/28/2010 11:58 AM 03/03/2010 7:10 PM Care Teams Account Administrator Relationship Specialty Start Date End Date Elissa Barnes PA [address] [place] [address] PCP - General Physician Fibre Composite Technician 11/30/20 Jacob Hernandez MD [address] [place] [address] Neurology 11/30/20 Tiarra Campos MD [address] [place] [address] Gastroenterology 11/30/20 Nino Cadet MD [address] [place] [address] Surgery - Orthopedics 11/30/20 [facility] [address] [place] [address] 09/14/23
--- OUTSIDE RECORDS SUMMARY | 2023-10-16 05:44 | XMS_ITS | Encounter Summary ---
Author Name Unknown Organization [facility] Address [address] [place] [address]. [place] [address] Care Team Providers Care Division Human Resources Manager Name Role Phone Dexter Sykes MD Unavailable [phone] Siva Hearn MD Unavailable [phone] Radha Espinoza RN Unavailable Unavailable Jacob Hernandez MD Unavailable Elissa Barnes Primary Care Provider [phone] Reason for Visit * Auth/Cert (Routine) Specialty Diagnoses / Procedures Referred By Yulissa t Referred To Contact Surgery Diagnoses Esophageal dysphagia Esophageal dysphagia [R13.19] Procedures [place] [facility] DIAG W OR W/O BRUSH/WASH ESOPHAGOGASTRODUODENOSCOPY Periop Services [address] [place] [address] Referral ID Status Reason Start Date Expiration Date Visits Re quested Visits Authorized [id number] 1 1 Encounter Details Date Type Department Care Team (Late st Contact Info) Description 09/14/2023 10:47 AM MARIONETTE PERFORMER Anesthesia Event [facility] PeriOp Services [address] [place] [address] Solitario Hernandez MD [facility] [place] [id number] [place] [address] Jacquie Berg, MANAGER [employer] CR[employer]HER [address] [place] [address] Anesthesia Record Procedure Summary Procedure Name Responsible Anesthesiologist Anesthesia Start Time Anesthesia Stop Time Esophagogastroduodenoscopy w ith biopsies (Mouth) Solitario Hernandez MD 09/14/23 1047 09/14/23 1118 Events Date Time Event Comment 09/14/2023 0915 1047 An Start 1047 MD Present 1050 An Start Data 1050 AN REASSESS I attest that I have identified and re-evaluated the patient immediately before the induction of anesthesia and I am satisfied that the anesthetic plan is suitable for the patient's condition and procedure. The first vital signs recorded are pre- induction. Jacquie Berg APRN STEM CRUSHER 1055 Anesthesia Ready for Procedu re 1106 an stop data 1118 An Stop Electronically signed by Jacquie Berg APRN STEM CRUSHER on September 14, 2023 11:18 AM 1118 MD Present Meds Name Total lidocaine 2% 50 mg propofol 10 mg/mL 100 mg ondansetron 2 mg/mL 4 mg glycopyrrolate 0.2 mg/mL 0.2 mg benzocaine (HURRICAINE/TOPEX) 20% spray 1 spray LR 0 mL * Agents Name NO HELIOX O2 N2O Air Exp Sevoflurane Exp Isoflurane Exp Desflurane Exp N2O O2 Delivery Device Ins Sevoflurane Ins Isoflurane Ins Desflurane O2 Auxiliary * Blood No blood administrations on file. Lines, Drains, and Airways Type Details Placement Removal Incision/Surgical Site 02/04/17; 0758; L eft; Groin 02/04/17 0758 by Sil Wilkins RN Incision/Surgical Site 06/21/18; 1207; L eft; Leg 06/21/18 1207 by Jessica Irwin RN Incision/Surgical Site 01/22/21; 1426; R ight; Hand; x2 incisions - adaptic, 4x4, cast padding, splint, bladimir 01/22/21 1426 by Patricia Amaya RN Peripheral IV 09/14/23; 0938; 20 G ; Left, Dorsal; Hand; Chlorhexidine; 1; Tolerated well 09/14/23 0938 by Shayna Barlow RN 09/14/23 1142 by Suyapa Durand RN documented in this encounter Social History Tobacco Use Types Packs/Day Years Used Date Smoking Tobacco: Former Cigarettes Q uit: 10/09/1992 Smokeless Tobacco: Never Alcohol Use Standard Drinks/Week Comments Yes 6 (1 standard drink = 0.6 oz pure alcohol) couple glasses of wine several times week PHQ-2 Answer Date Recorded PHQ-2 Score 1 10/14/2022 Adolescent Education Answer Date Record ed Getting School Help Needed Not on file 07/10 Sex and Gender Information Value Date Recorded Sex Assigned at Not on file Gender Identity Not on file Sexual Orientation Not on file documented as of this encounter OR Notes * Anesthesia Postprocedure Evaluation - Solitario Hernandez MD - 09/14/2023 1:55 PM CST Patient: Cathy Raymond Procedure: Procedure(s): ESOPHAGOGASTRODUODENOSCOPY Anesthesia Type: MAC Note: Disposition: Outpatient Postop Pain Control: Uneventful Sign Out: Well controlled pain PONV: No Neuro/Psych: Uneventful Sign Out: Acceptable/Baseline neuro status Airway/Respiratory: Uneventful Sign Out: Acceptable/Baseline resp. status CV/Hemodynamics: Uneventful Sign Out: Acceptable CV status; No obvious hypovolemia; No obvious fluid overload Other NRE: NONE DID A NON-ROUTINE EVENT OCCUR? No Last vitals: Vitals Value Taken Time BP 122/85 09/14/23 1130 Temp 97.6 ??F (36.4 ??C) 09/14/23 1130 Pulse 99 09/14/23 1125 Resp 14 09/14/23 1114 SpO2 98 % 09/14/23 1130 Vitals shown include unfiled device data. Electronically Signed By: Solitario Hernandez MD September 14, 2023 1:55 PM ONETTE PERFORMER * Anesthesia Preprocedure Evaluation - Solitario Hernandez MD - 09/14/2023 9:12 AM CST Anesthesia Pre-Procedure Evaluation Patient: Cathy Raymond : 1965 Procedure : Procedure(s): ESOPHAGOGASTRODUODENOSCOPY Past Medical History: Diagnosis Date Chronic infection CIDP (chronic inflammatory demyelinating polyneuropathy) (H) 12/11/2016 Depressive disorder DVT (deep venous thrombosis) (H) 2014 provoked right leg after joint fusion ETOH abuse GERD (gastroesophageal reflux disease) Hepatic steatosis History of blood transfusion Hyperlipidemia Hypertension Obstructive sleep apnea syndrome RLS (restless legs syndrome) Sleep apnea no longer uses cpap Thyroid disease Past Surgical History: Procedure Laterality Date ABDOMEN SURGERY Gina en Y BIOPSY LYMPH NODE INGUINAL Left 02/04/2017 Procedure: BIOPSY LYMPH NODE INGUINAL; Left Inguinal Lymph Node Biopsy; Surgeon: Jacob Gomez MD; Location: [facility] BIOPSY MUSCLE DIAGNOSTIC (LOCATION) Left 06/21/2018 Procedure: BIOPSY MUSCLE DIAGNOSTIC (LOCATION); Nerve Biopsy, Superficial Peroneal Nerve, left; Surgeon: Jacob Hernandez MD; [facility]: [facility] COLONOSCOPY 2014 COLONOSCOPY N/A 07/25/2021 Procedure: COLONOSCOPY; Surgeon: Lyndon Arteaga MD; Location: [facility] ESOPHAGOGASTRODUODENOSCOPY ESOPHAGOSCOPY, GASTROSCOPY, DUODENOSCOPY (EGD), COMBINED N/A 12/06/2018 Procedure: COMBINED ESOPHAGOSCOPY, GASTROSCOPY, DUODENOSCOPY (EGD); Surgeon: Jamal Beach MD; Location: [facility] ESOPHAGOSCOPY, GASTROSCOPY, DUODENOSCOPY (EGD), COMBINED N/A 02/14/2019 Procedure: ESOPHAGOGASTRODUODENOSCOPY, WITH BIOPSY; Surgeon: Gial Baer MD; Location: [facility] ESOPHAGOSCOPY, GASTROSCOPY, DUODENOSCOPY (EGD), COMBINED N/A 07/25/2021 Procedure: ESOPHAGOGASTRODUODENOSCOPY (EGD); Surgeon: Lyndon Arteaga MD; Location: [facility] HYSTERECTOMY Left middle toe amputation 2014 ORTHOPEDIC SURGERY ORIF left femur RELEASE CARPAL TUNNEL Right 01/22/2021 Procedure: 1. Right carpal tunnel release. 2. Right long trigger finger release.; Surgeon: Isabelle Howard MD; Location: OR Repair of dislocated toes right foot 07/2016 TONSILLECTOMY Allergies Allergen Reactions Aspirin Other reaction(s): Bleeding Clavulanic Acid Hydrocodone Other reaction(s): Tachycardia Heart races. Tolerates oxycodone OK. Other reaction(s): Tachycardia Liquid Adhesive Other reaction(s): Contact Dermatitis Reaction to steri-strips Naproxen Other reaction(s): *Unknown - Pt Doesn't Remember Nsaids Steri Strips Sulfamethoxazole-Trimethoprim Vicodin [Hydrocodone-Acetaminophen] Other reaction(s): Tachycardia heart races Amoxicillin-Pot Clavulanate Diarrhea Sulfamethoxazole-Trimethoprim Itching and Rash Social History Tobacco Use Smoking status: Former Types: Cigarettes Quit date: 10/09/1992 Years since quittin.9 Smokeless tobacco: Never Substance Use Topics Alcohol use: Yes Alcohol/week: 6.0 standard drinks of alcohol Types: 6 Glasses of wine per week Comment: couple glasses of wine several times week Wt Readings from Last 1 Encounters: 09/14/23 87.1 kg (192 lb) Anesthesia Evaluation ROS/MED HX ENT/Pulmonary: (+) sleep apnea, mild, doesn't use CPAP, Neurologic: - neg neurologic ROS Cardiovascular: (+) Dyslipidemia hypertension- - - - - METS/Exercise Tolerance: Hematologic: Comments: Lab Test 10/24/21 04/18/21 10/11/18 07/01/18 02/09/17 01/19/17 0918 0847 0000 1123 1326 1543 WBC 5.2 5.2 -- 5.1 < > 4.4 HGB 13.9 13.9 -- 14.0 < > 10.7* MCV 94 97 -- 111* < > 99 PLT 141* 161 -- 159 < > 244 INR -- -- 1.1 1.19* -- 1.17* < > = values in this interval not displayed. Lab Test 10/24/21 04/18/21 01/22/21 07/01/18 0918 0847 1330 1123 NA 142 137 -- 134 POTASSIUM 4.0 3.9 -- 4.1 CHLORIDE 99 100 -- 98 CO2 32 28 -- 28 BUN 4* 3* -- 5* CR 0.48* 0.51* 0.55 0.42* ANIONGAP 11 9 -- 7 ALICIA 9.3 9.0 -- 9.1 GLC 130* 121* -- 93 Musculoskeletal: - neg musculoskeletal ROS GI/Hepatic: (+) GERD, Asymptomatic on medication, liver disease, Renal/Genitourinary: Endo: (+) thyroid problem, Psychiatric/Substance Use: Infectious Disease: - neg infectious disease ROS Malignancy: - neg malignancy ROS Other: - neg other ROS Physical Exam Airway Mallampati: II TM distance: > 3 FB Neck ROM: full Mouth opening: > 3 cm Respiratory Devices and Support Dental (+) Minor Abnormalities - some fillings, tiny chips Cardiovascular cardiovascular exam normal Pulmonary OUTSIDE LABS: CBC: Lab Results Component Value Date WBC 5.2 10/24/2021 WBC 5.2 04/18/2021 HGB 13.9 10/24/2021 HGB 13.9 04/18/2021 HCT 43.9 10/24/2021 HCT 42.0 04/18/2021 PLT 141 (L) 10/24/2021 PLT 161 04/18/2021 BMP: Lab Results Component Value Date NA 142 10/24/2021 NA 137 04/18/2021 POTASSIUM 4.0 10/24/2021 POTASSIUM 3.9 04/18/2021 CHLORIDE 99 10/24/2021 CHLORIDE 100 04/18/2021 CO2 32 10/24/2021 CO2 28 04/18/2021 BUN 4 (L) 10/24/2021 BUN 3 (L) 04/18/2021 CR 0.48 (L) 10/24/2021 CR 0.51 (L) 04/18/2021 GLC 130 (H) 10/24/2021 GLC 121 (H) 04/18/2021 COAGS: Lab Results Component Value Date PTT 30 07/01/2018 INR 1.1 10/11/2018 FIBR 272 07/01/2018 POC: No results found for: BGM, HCG, HCGS HEPATIC: Lab Results Component Value Date ALBUMIN 3.9 10/24/2021 PROTTOTAL 8.6 10/24/2021 ALT 30 10/24/2021 AST 48 (H) 10/24/2021 ALKPHOS 88 10/24/2021 BILITOTAL 0.6 10/24/2021 OTHER: Lab Results Component Value Date A1C 5.3 09/19/2009 ALICIA 9.3 10/24/2021 TSH 1.55 01/19/2017 CRP 4.4 03/26/2021 SED 13 05/13/2022 Anesthesia Plan ASA Status: 3 Anesthesia Type: MAC. - Reason for MAC: immobility needed Induction: Propofol. Maintenance: Balanced. Consents Anesthesia Plan(s) and associated risks, benefits, and realistic alternatives discussed. Questions answered and patient/software support representative(s) expressed understanding. - Discussed: - Discussed with: Patient - Extended Intubation/Ventilatory Support Discussed: No. - Patient is DNR/DNI Status: No Use of blood products discussed: No . Postoperative Care Pain management: IV analgesics. PONV prophylaxis: Dexamethasone or Solumedrol, Ondansetron (or other 5HT-3) Comments: Solitario Hernandez MD I have reviewed the pertinent notes and labs in the chart from the past 30 days and (re)examined the patient. Any updates or changes from those notes are reflected in this note. # Overweight: Estimated body mass index is 29.19 kg/m?? as calculated from the following: Height as of this encounter: 1.727 m (5' 8). Weight as of this encounter: 87.1 kg (192 lb). ONETTE PERFORMER documented in this encounter Miscellaneous Notes * Anesthesia Care Transfer Note - Jacquie Berg APRN CRNA - 09/14/2023 11:18 AM CST Patient: Cathy Raymond Procedure: Procedure(s): ESOPHAGOGASTRODUODENOSCOPY Diagnosis: Esophageal dysphagia [R13.19] Diagnosis Additional Information: No value filed. Anesthesia Type: MAC Note: Oropharynx: oropharynx clear of all foreign objects and spontaneously breathing Level of Consciousness: awake Oxygen Supplementation: room air Independent Airway: airway patency satisfactory and stable Dentition: dentition unchanged Vital Signs Stable: post-procedure vital signs reviewed and stable Report to RN Given: handoff report given Patient transferred to: Phase II Comments: No issues, wide awake Handoff Report: Identifed the Patient, Identified the Reponsible Provider, Reviewed the pertinent medical history, Discussed the surgical course, Reviewed Intra-OP anesthesia mangement and issues during anesthesia and Allowed opportunity for questions and acknowledgement of understanding Vitals: Vitals Value Taken Time BP Temp Pulse Resp SpO2 97 % 09/14/23 1117 Vitals shown include unfiled device data. Electronically Signed By: Jacquie Berg APRN CRNA September 14, 2023 11:18 AM ONETTE PERFORMER documented in this encounter Plan of Treatment Not on file documented as of this encounter Visit Diagnoses Not on filedocumented in this encounter Administered Medications Inactive Administered Medications - up to 3 most recent administrations Medication Order MAR Action Action Date Dose Rate Site benzocaine 20% (HURRICAINE/TOPEX) 20 % spray Oral, PRN, Starting on Thu09/14/23 at 1047, Anesthesia Intra-op $Given 09/14/2023 10:47 AM MARIONETTE PERFORMER 1 spray glycopyrrolate (ROBINUL) injection Intravenous, PRN, Administer over 1-2 Minutes, Starting on Thu09/14/23 at 1047, Anesthesia Intra-op $Given 09/14/2023 10:47 AM MARIONETTE PERFORMER 0.2 mg lactated ringers infusion Intravenous, CONTINUOUS PRN, Anesthesia Intra-op, Starting on Thu09/14/23 at 0932, Until Thu09/14/23 at 1118 $New Bag 09/14/2023 9:32 AM MARIONETTE PERFORMER lidocaine 2% injection (MDV) Intravenous, PRN, Starting on Thu09/14/23 at 1055, Anesthesia Intra-op $Given 09/14/2023 10:55 AM MARIONETTE PERFORMER 50 mg ondansetron (ZOFRAN) injection Intravenous, PRN, Administer over 2-5 Minutes, Starting on Thu09/14/23 at 1047, Anesthesia Intra-op $Given 09/14/2023 10:47 AM MARIONETTE PERFORMER 4 mg propofol (DIPRIVAN) injection 10 mg/mL vial Intravenous, PRN, Starting on Thu09/14/23 at 1055, Anesthesia Intra-op $Given 09/14/2023 10:58 AM MARIONETTE PERFORMER 50 mg $Given 09/14/2023 10:55 AM MARIONETTE PERFORMER 50 mg documented in this encounter Additional Health Concerns 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 Source: [employer] [facility]. 10/03/2019 09/14/2023 Assessment Noted Time PHQ-9 Depression Total Score: 8 09/04/20 20 1:10 PM MARIONETTE PERFORMER documented as of this encounter Care Teams Division Human Resources Manager Relationship Specialty Start Date End Date Elissa Barnes [address] [place] [address] PCP - General Physician Management Engineer 08/28/21 Dexter Sykes MD [facility] [address] [address] 09/15/16 Siva Hearn MD [facility] [address] [address] Neurology 09/15/16 Radha Espinoza, RN Registered Nurse Neurology 12/15/16 Jacob Hernandez MD [address] [place] [address] [id number] Assigned Neuroscience Provider 07/27/20 documented as of this encounter
--- OUTSIDE RECORDS SUMMARY | 2023-10-16 05:44 | XMS_ITS | Encounter Summary ---
Author Name Unknown Organization [facility] Address [address] [place] [address]. [place] [address] Care Team Providers Care Master Machinist Name Role Phone Dexter Sykes MD Unavailable [phone] Siva Hearn MD Unavailable [phone] Radha Espinoza RN Unavailable Unavailable Jacob Hernandez MD Unavailable [phone] Joanna Pulido MD Unavailable [phone] Elissa Barnes Primary Care Provider [phone] Reason for Visit * Rehab Therapy Integrated Services (Routine: Next available opening) - Closed Specialty Diagnoses / Procedures Referred By Yulissa wayne Referred To Contact Diagnoses Idiopathic progressive polyneuropathy Jacob Hernandez MD [address] [place] [address] [address] Referral ID Status Reason Start Date Expiration Date Visits Re quested Visits Authorized [id number] Closed 10/05/2022 10/04/2023 365 365 Encounter Details Date Type Department Care Team (Late st Contact Info) Description 01/08/2023 7:17 AM CDT - 01/08/2023 11:59 PM CDT Hospital Encounter [address] [address] Jacob Hernandez MD [address] [place] [id number] Miryam Rojas Ap, PT [facility] [address] [facility] [address] [place], [place] [id number] Discharge Disposition: Home or Self Care Social History Tobacco Use Types Packs/Day Years Used Date Smoking Tobacco: Former Cigarettes Q uit: 10/09/1992 Smokeless Tobacco: Never Alcohol Use Standard Drinks/Week Comments Yes 6 (1 standard drink = 0.6 oz pure alcohol) couple glasses of wine several times week PHQ-2 Answer Date Recorded PHQ-2 Score 1 10/14/2022 Sex and Gender Information Value Date Recorded Sex Assigned at Not on file Gender Identity Not on file Sexual Orientation Not on file COVID-19 Exposure Response Date Recorded In the last 10 days, have yo u been in contact with someone who was confirmed or suspected to have Coronavirus/COVID-19? No / Unsure 01/08/2023 7:17 AM CDT documented as of this encounter Medications at Time of Discharge Medication Sig Dispensed Refills Start Date End Date acyclovir (ZOVIRAX) 800 MG tablet Take 800 mg by mouth as needed 0 alendronate (FOSAMAX) 70 MG tablet Take 70 mg by mouth every 7 days 0 calcitonin, salmon, (MIACALCIN) 200 UNIT/ACT nasal spray [place] 1 spray into one nostril alternating nostrils daily 0 10/23/2020 calcium carbonate-vitamin D (OSCAL W/D) 500-200 MG-UNIT tablet Take 1 tablet by mouth 2 times daily 0 carboxymethylcellulose PF (REFRESH PLUS) 0.5 % ophthalmic solution 1 drop 3 times daily as needed for dry eyes 0 Cholecalciferol (VITAMIN D3 PO) Take 5,000 Units by mouth every morning 0 citalopram (CELEXA) 20 MG tablet Take 20 mg by mouth every morning 0 10/03/2022 Cyanocobalamin 1000 MCG/ML KIT Inject 1,000 mcg as directed every 30 days 0 furosemide (LASIX) 20 MG tablet Take 20 mg by mouth daily 0 gabapentin (NEURONTIN) 600 MG tablet Take 1,200 mg by mouth 3 times daily 0 levothyroxine (SYNTHROID/LEVOTHROID) 50 MCG tabletIndications:Hypo thyroidism Take 50 mcg by mouth daily 0 metFORMIN (GLUCOPHAGE) 500 MG tablet Take 1 Tablet (500 mg) by mouth two times daily with meals 0 10/03/2022 mirabegron (MYRBETRIQ) 25 MG 24 hr tablet Take 1 Tablet (25 mg) by mouth once daily. 0 09/10/2022 Multiple Vitamin (MULTI-VITAMINS) TABS Take 1 tablet by mouth daily 0 09/22/2018 nystatin (MYCOSTATIN) creamIndications:Cutan eous Candidiasis,Mucocutane ous Candidiasis Apply 1 applicator topically daily as needed Reported on 02/18/2017 0 pramipexole (MIRAPEX) 0.5 MG tablet TAKE 1 TABLET BY MOUTH IN THE MORNING AND TAKE 2 TABLETS AT BEDTIME 0 spironolactone (ALDACTONE) 50 MG tablet Take 50 mg by mouth every morning 0 thiamine (B-1) 100 MG tablet Take 100 mg by mouth daily 0 traZODone (DESYREL) 100 MG tablet Take 100 mg by mouth at bedtime 0 triamcinolone (KENALOG) 0.1 % external cream Apply topically 3 times daily As needed 0 acetaminophen (TYLENOL) 500 MG tablet 0 09/22/2018 09/12/2023 AMLODIPINE BESYLATE PO Take 5 mg by mouth daily 0 09/11/2023 celecoxib (CELEBREX) 200 MG capsule Take 200 mg by mouth daily 0 09/12/2023 ciprofloxacin-dexameth asone (CIPRODEX) 0.3-0.1 % otic suspension Place 4 drops into the right ear as needed As needed 0 09/22/2018 09/12/2023 citalopram (CELEXA) 10 MG tablet Take 10 mg by mouth daily 0 09/11/2023 citalopram (CELEXA) 20 MG tablet Take 20 mg by mouth every morning 0 09/11/2023 cyclobenzaprine (FLEXERIL) 10 MG tablet Take 10 mg by mouth as needed 0 10/23/2020 09/12/2023 diazepam (VALIUM) 5 MG tabletIndications:[place]se strophobia Take 1 tablet 30 minutes prior to MRI. Then take 1 tablet at time of MRI if needed. Must have local az truck driver. 2 tablet 0 09/26/2021 09/11/2023 OXYBUTYNIN CHLORIDE PO Take 10 mg by mouth daily 0 09/12/2023 pantoprazole (PROTONIX) 40 MG EC tabletIndications:Tj wade ulcer without hemorrhage or perforation, unspecified chronicity Take 1 tablet (40 mg) by mouth 2 times daily (before meals) 60 tablet 3 12/06/2018 09/12/2023 potassium chloride (KLOR-CON) 20 MEQ Packet Take 40 mEq by mouth 2 times daily 0 09/11/2023 senna-docusate (SENOKOT-S/PERICOLACE) 8.6-50 MG tablet 2 tablets daily 0 09/22/2018 09/12/20 23 documented as of this encounter Progress Notes * Miryam Rojas Ap, PT - 01/08/2023 2:12 PM CDT Images from the original note were not included. [facility] Service Outpatient Physical Therapy Discharge Note Patient: Cathy Raymond : 1965 Beginning/End Dates of Reporting Period: 10/20/22 to 01/08/23 Referring Provider: Dr. Jacob Hernandez Therapy Diagnosis: impaired safety with gait, fall risk, generalized weakness Client Self Report: States her L arm is better depends on the way I move it Brought in her HEP handouts to review. Goals: Goal Identifier 1 HEP Goal Description Tiny will be independent in an appropriate HEP to address her impairments for overall health and improvement in function. Target Date 01/13/23 Date Met 01/08/23 Progress (detail required for progress note): Tiny is independent and faithful/compliant with her HEP and is without questions. Goal Identifier 2 TUG Goal Description Tiny to improve her TUG time from 49.48 sec at baseline to </= 30 sec to demonstrate significantly improved functional LE strength and safety negotiating over short distances withwalker and B AFOs. Target Date 01/13/23 Date Met 01/08/23 Progress (detail required for progress note): 01/08/23 36.35 sec, lowered walker one more notch and completed in 30.63 sec time 12/11/22 36.8 sec and 35.06 sec with 4WW Goal Identifier 3 - 5 x sit to stand Goal Description Tiny to complete 5 sit to and from stand repititions from 18 inch chair with lightUE support in 20 sec or less to demonstrate improved functional LE strength and balance. Target Date 01/13/23 Date Met (Not fully met but improved as noted) Progress (detail required for progress note): 01/08/23 28.93 sec 12/11/22 36.08 sec mod use of UE sit to stand, light touch to walker one hand with immediate stand MUCH BETTER control. eval 36.92 sec with heavy use of UE on armrests and immediate hand placement on walker in front of her. Goal Identifier 4 - 6MWT Goal Description Tiny to improve her 6MWT distance by 75 m or greater from initial testing to demonstrate improved tolerance to activity to allow for greater tolerance to ambulation in community/out of home. Target Date 01/13/23 Date Met 01/08/23 Progress (detail required for progress note): 01/09/23 446 ft. (135.941 m) with FWW 12/25/22 345 feet (105.156m ) with 4WW , completed full 6 min . last 90 sec leg fatigue noticeable 11/04/22 started with 4WW weighted down 20 lbs, change to FWW after 12 sec. Pt wanting to use 4WW as was prior to this episode of illness but hasn't been using lately) completed 4 min , 184 feet, (56.0832 m)therapist CGA, pt stopped due to arm fatigue/heavy lean on the walker Goal Identifier 5 - w/c and safety Goal Description Tiny to have adaptions to her w/c or have evaluation by w/c and seating clinic to allow her to have greater safety in her w/c and not fall from w/c. Target Date 01/13/23 Date Met 01/08/23 Progress (detail required for progress note): 01/08/23 Has not had a fall out of the w/c. 12/11/22 Has not had a fall out of the w/c to date. Her has moved the back rest of w/c more posterior to allow for longer seat/length of femur. Baseline - frequent falls out of w/c - falls asleep in the chair - was doing this last year as well. Goal Identifier 6 - balance Goal Description Tiny to demonstrate the ability to stand without outside UE support upon initial stand from a chair and sustain balance x 30 sec or greater to demonstrate improved balance, functional strength for safety with transfers and personal cares, home activities. Target Date 12/15/22 Date Met 12/11/22 Progress (detail required for progress note): 12/11/22 30 sec - stopped her at this time - discussed doing at home. eval - not able to stand without immediate hand placement on walker in front of her. Plan: Discharge from therapy. Discharge: Reason for Discharge: no further skilled PT intervention needed. Anticipate further improvement with continuation of HEP and also being more active outside when weather improves/allows. Equipment Issued: theraband, hand putty Discharge Plan: Patient to continue home program. documented in this encounter Plan of Treatment Not on file documented as of this encounter Visit Diagnoses Not on filedocumented in this encounter Additional Health Concerns Assessment Noted Time PHQ-9 Depression Total Score: 8 09/04/20 20 1:10 PM RADIATION OFFICER documented as of this encounter Care Teams Master Machinist Relationship Specialty Start Date End Date Elissa Barnes [address] [place] [address] PCP - General Physician Web Offset Press Feeder 08/28/21 Dexter Sykes MD [facility] [address] [place] [id number] 09/15/16 Siva Hearn MD [address] [id number] Neurology 09/15/16 Radha Espinoza, RN Registered Nurse Neurology 12/15/16 Jacob Hernandez MD [address] [place] [id number] Assigned Neuroscience Provider 07/27/20 Joanna Pulido MD [address] [place] [address] [id number] Assigned Cancer Care Provider 04/28/21 04/24/23 documented as of this encounter
--- OUTSIDE RECORDS SUMMARY | 2023-10-16 05:44 | XMS_ITS | Encounter Summary ---
Author Name Unknown Organization [facility] Address [address] [place] [address]. [place] [address] Care Team Providers Care Supervisor Water Softener Service Name Role Phone Dexter Sykes MD Unavailable [phone] Siva Hearn MD Unavailable [phone] Radha Espinoza RN Unavailable Unavailable Jacob Hernandez MD Unavailable [phone] Elissa Barnes Primary Care Provider [phone] Encounter Details Date Type Department Care Team (Latest Contact Info) Description 09/14/2023 Travel Social History Tobacco Use Types Packs/Day Years [...] on file documented as of this encounter Plan of Treatment Not on file documented as of this encounter Visit Diagnoses Not on filedocumented in this encounter Additional Health Concerns 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 Source: [employer] [facility]. 10/03/2019 09/14/2023 Assessment Noted Time PHQ-9 Depression Total Score: 8 09/04/20 20 1:10 PM INTEGRATED CAMPAIGN MANAGER documented as of this encounter Care Teams Supervisor Water Softener Service Relationship Specialty Start Date End Date Elissa Barnes [address] [place] [address] PCP - General Physician Computer Help Desk Representative 08/28/21 Dexter Sykes MD [facility] [address] [facility] [address] [place] [address] 09/15/16 Siva Hearn MD [facility] [address] [facility] [address] [place] [address] Neurology 09/15/16 Radha Espinoza, RN Registered Nurse Neurology 12/15/16 Jacob Hernandez MD [address] [place] [id number] Assigned Neuroscience Provider 07/27/20 documented as of this encounter
--- OUTSIDE RECORDS SUMMARY | 2023-10-16 05:44 | XMS_ITS | Referral Summary ---
Author Name Unknown Organization [facility] Address [address] [place] [address]. 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 [address] [place] [address] Solitario Hernandez MD Marinello, Abby Rose, DARIO TRUSS DESIGNER 3 10:00 AM JOB SPOTTER - 3 10:30 AM JOB SPOTTER Surgery [facility] [address] [place] [address] Dorothy Fontenot MD Esophagogastroduodenoscopy with biopsies 3 7:38 AM JOB SPOTTER - 3 11:56 AM JOB SPOTTER Hospital Encounter [facility] PreOP/PostOP [address] [place] [address] Dorothy Fontenot MD Discharge Disposition: Home or Self Care from Last 3 Months Allergies Active Allergy Reactions Criticality Noted Date Comments Amoxicillin-Pot Clavulanate Diarrhea Low 06/21/2018 Aspirin 04/16/2012 Other reaction(s): Bleeding Clavulanic Acid Hydrocodone 12/17/2007 Other reaction(s): Tachycardia Heart races. ??Tolerates oxycodone OK. Other reaction(s): Tachycardia Liquid Adhesive 10/17/2013 Other reaction(s): Contact Dermatitis Reaction to steri-strips Naproxen 10/17/2013 Other reaction(s): *Unknown - Pt Doesn't Remember Nsaids 04/16/2012 Steri Strips 10/09/2016 Sulfamethoxazole-Trimetho prim Itching,Rash Low 04/22/2022 Sulfamethoxazole-Trimetho prim 10/14/2022 Hydrocodone-Acetaminophen 03/31/2007 Other reaction(s): Tachycardia heart races Medications Medication Sig Dispensed Refills Start Date End Date Status Cyanocobalamin 1000 MCG/ML KIT Inject 1,000 mcg as directed every 30 days 0 Active Cholecalciferol (VITAMIN D3 PO) Take 5,000 Units by mouth every morning 0 Active pramipexole (MIRAPEX) 0.5 MG tablet TAKE 1 TABLET BY MOUTH IN THE MORNING AND TAKE 2 TABLETS AT BEDTIME 0 Active gabapentin (NEURONTIN) 600 MG tablet Take 1,200 mg by mouth 3 times daily 0 Active thiamine (B-1) 100 MG tablet Take 100 mg by mouth daily 0 Active levothyroxine (SYNTHROID/LEVOTHR OID) 50 MCG tabletIndications: Hypothyroidism Take 50 mcg by mouth daily 0 Active nystatin (MYCOSTATIN) creamIndications:C utaneous Candidiasis,Mucocu taneous Candidiasis Apply 1 applicator topically daily as needed Reported on 02/18/2017 0 Active traZODone (DESYREL) 100 MG tablet Take 100 mg by mouth at bedtime 0 Active furosemide (LASIX) 20 MG tablet Take 20 mg by mouth daily 0 Active spironolactone (ALDACTONE) 50 MG tablet Take 50 mg by mouth every morning 0 Active acyclovir (ZOVIRAX) 800 MG tablet Take 800 mg by mouth as needed 0 Active Multiple Vitamin (MULTI-VITAMINS) TABS Take 1 tablet by mouth daily 0 09/22/2018 Active alendronate (FOSAMAX) 70 MG tablet Take 70 mg by mouth every 7 days 0 Active calcitonin, salmon, (MIACALCIN) 200 UNIT/ACT nasal spray [place] 1 spray into one nostril alternating nostrils daily 0 10/23/2020 Active calcium carbonate-vitamin D (OSCAL W/D) 500-200 MG-UNIT tablet Take 1 tablet by mouth 2 times daily 0 Active carboxymethylcellu lose PF (REFRESH PLUS) 0.5 % ophthalmic solution 1 drop 3 times daily as needed for dry eyes 0 Active triamcinolone (KENALOG) 0.1 % external cream Apply topically 3 times daily As needed 0 Active citalopram (CELEXA) 20 MG tablet Take 20 mg by mouth every morning 0 10/03/2022 Active metFORMIN (GLUCOPHAGE) 500 MG tablet Take 1 Tablet (500 mg) by mouth two times daily with meals 0 10/03/2022 Active mirabegron (MYRBETRIQ) 25 MG 24 hr tablet Take 1 Tablet (25 mg) by mouth once daily. 0 09/10/2022 Active clindamycin (CLEOCIN) 300 MG capsule TAKE 2 CAPSULES BY MOUTH 1 HOUR PRIOR TO DENTAL APPTOINTMENT 0 Active cetirizine (ZYRTEC) 10 MG tablet Take 1 tablet by mouth daily 0 01/30/2023 Active hydrocortisone 2.5 % ointment APPLY TOPICALLY TO AFFECTED AREA(S) TWICE DAILY. 0 03/16/2023 Active pantoprazole (PROTONIX) 40 MG EC tablet Take 40 mg by mouth daily before breakfast 0 Active lidocaine (LIDODERM) 5 % patch APPLY 1 PATCH TOPICALLY ONTO PAINFUL AREA OF SKIN THAT IS DRY, CLEAN,HAIRLESS FOR UP TO 12 WITHIN A 24 HOUR PERIOD *12 HOURS ON AND 12 HOURS OFF* 0 09/06/2023 Active oxyBUTYnin ER (DITROPAN XL) 10 MG 24 hr tablet Take 10 mg by mouth daily 0 Active glycerin (GLYCERIN, ADULT,) 2 g suppository Insert 1 Suppository rectally once daily if needed for Constipation. 0 09/11/2023 Active cephALEXin (KEFLEX) 500 MG capsule Take 1 Capsule (500 mg) by mouth three times daily for 10 days. 0 09/11/2023 09/21/2023 Active Problems Patient Care Coordination No te Formatting of this note migh t be different from the original. Patient to receive IVIg infusions at [facility]: [phone] (T) [phone] (F) Problem Noted Date Diagnosed Date Trigger middle finger of right hand 12/07/2020 Overview: Added automatically from request for surgery [id number] Carpal tunnel syndrome of right wrist 12/07/2020 Overview: Added automatically from request for surgery [id number] UTI (urinary tract infection) 11/17/2017 IgM lambda monoclonal gammopathy 11/16/2017 Primary osteoarthritis of left knee 11/16/2017 Restless leg syndrome 11/16/2017 Chronic inflammatory demyelinating polyneuropath y 12/11/2016 Incomplete emptying of bladder 10/20/2016 Urinary urgency 10/20/2016 Mixed anxiety depressive disorder 05/29/2016 History of infectious disease 05/29/2016 Obstructive sleep apnea syndrome 02/21/2016 Overview: Overview: Patient states she doesn't use CPAP or use any other treatment Alcoholic cirrhosis 07/19/2015 Overview: Overview: Fatty liver Charcot's joint of foot 04/25/2015 Peripheral nerve disease 04/25/2015 Deep vein thrombosis (DVT) of lower extremity Hyponatremia 03/03/2010 Hypertension 02/28/2010 Lumbar radiculopathy 02/28/2010 Atopic rhinitis 03/31/2007 Immunizations Name Administration Dates Next Due Flu, Unspecified 07/08/2019, 7,07/09/2016,2011,06/18/2011,08/05/2007,08/14/2006,1 ,09/06/2004,08/08/2003 [id number] Novel Flu 08/14/2009 Influenza (H1N1) 08/14/2009 Influenza (IIV3) PF 07/09/2021, 3,06/18/2011,2006,08/14/2006,07/29/2005,09/06/2004,1 10/08/2002 Influenza (intradermal) 06/14/2012 Influenza Vaccine >6 months,quad, PF 07/2020,07/08/2019,07/08/2017,2015 Influenza Vaccine, 6+MO IM (QUADRIVALENT W/PRESERVATIVES) 07/14/2020,07/08/2017 Influenza, seasonal, injectable, PF 07/07/2018 Pneumo Conj 13-V (2010&after) 10/06/2018 Pneumococcal 23 valent 04/02/2017 TD,PF 7+ (Tenivac) 03/25/2004,11/11/1994 TDAP Vaccine (Adacel) 09/06/2012 Td (Adult), Adsorbed 03/25/2004,11/11/1994 Zoster recombinant adjuvante d (SHINGRIX) 07/09/2021 Social History Tobacco Use Types Packs/Day Years Used Date Smoking Tobacco: Former Cigarettes Q uit: 10/09/1992 Passive Smoke Exposure: Current Smokeless Tobacco: Never Tobacco Cessation:Counseling Given: Not Answered Alcohol Use Standard Drinks/Week Comments Yes 6 (1 standard drink = 0.6 oz pure alcohol) couple glasses of wine several times week PHQ-2 Answer Date Recorded PHQ-2 Score 0 10/13/2023 Adolescent Education Answer Date Record ed Getting School Help Needed Not on file 07/10 Sex and Gender Information Value Date Recorded Sex Assigned at Not on file Gender Identity Not on file Sexual Orientation Not on file Last Filed Vital Signs Vital Sign Reading Time Taken Comments Blood Pressure 122/85 09/14/2023 11:30 AM JOB SPOTTER Pulse 92 09/14/2023 11:22 AM JOB SPOTTER Temperature 36.4 ??C (97.6 ??F) 09/14/2023 11:[address] Respiratory Rate 14 09/14/2023 11:14 AM JOB SPOTTER Oxygen Saturation 98% 09/14/2023 11:30 AM JOB SPOTTER Inhaled Oxygen Concentration - - Weight 87.1 kg (192 lb) 09/14/2023 8:17 AM JOB SPOTTER Height 172.7 cm (5' 8) 10/13/2023 1:08 PM JOB SPOTTER Body Mass Index 29.19 09/14/2023 8:17 AM JOB SPOTTER Plan of Treatment Not on file Procedures Procedure Name Priority Date/Time Associated Diagnosis Comments GLUCOSE BY METER Routine 09/14/2023 11:2 7 AM JOB SPOTTER SURGICAL PATHOLOGY EXAM Routine 09/14/2023 11:02 AM JOB SPOTTER ESOPHAGOGASTRODUO DENOSCOPY, WITH BIOPSY 09/14/2023 10:44 AM JOB SPOTTER Esophageal dysphagia Special Needs Patient in wheelchair. Can stand and pivot to bed 2 leg braces UPPER GI ENDOSCOPY Routine 09/14/2023 10:43 AM JOB SPOTTER from Last 3 Months Results * Glucose by meter (09/14/2023 11:27 AM JOB SPOTTER) GLUCOSE BY METER POCT 97 70 - 99 mg/dL 09/14/2023 11:34 AM JOB SPOTTER LABORATORY POC Blood, Capillary BLOOD SPECIMEN / Unknown 09/14/2023 11:27 AM JOB SPOTTER 09/14/2023 11:34 AM JOB SPOTTER Dorothy Fontenot MD [facility] [address] [facility] [facility] (1st floor, no room number) [place] [address], [facility] [phone] * Surgical Pathology Exam (09/14/2023 11:02 AM JOB SPOTTER) Case Report Surgical Pathology Report ? Case: [id number] ? Authorizing Provider: ??Dorothy Fontenot MD ?Collected: ? 09/14/2023 11:02 AM ? Ordering Location: ? [facility] ?? Received: ?09/14/2023 11:12 AM ? Main OR ? Pathologist: ? Sharon Henning, ? MD ? Specimens: ?? A) - Esophagus, Distal, Distal esophagus biopsies ? B) - Esophagus, Mid, Mid esophagus biopsies ? 09/17/2023 3:[address] [facility] Final Diagnosis A: Esophagus, distal, biopsies: -Squamous mucosa with basal layer hyperplasia and scant chronic inflammation without eosinophils, features suggest reflux-like change -Special stain for fungal organisms performed and negative B: Esophagus, mid, biopsies: -Squamous mucosa with basal layer hyperplasia and scant chronic inflammation without eosinophils; features suggest reflux-like change -Special stain for fungal organisms performed and negative 09/17/2023 3:[address] [facility] Clinical Information Procedure: ESOPHAGOGASTRODU ODENOSCOPY Pre-op Diagnosis: Esophageal dysphagia [R13.19] Post-op Diagnosis: R13.19 - Esophageal dysphagia [ICD-10-CM] Findings: The examined esophagus was normal. Biopsies were taken in the mid and distal esophagus with a cold forceps for histology. Evidence of a gastric bypass was found. A gastric pouch with a normal size was found containing suture material. The gastrojejunal anastomosis was characterized by healthy appearing mucosa. This was traversed. The examined jejunum was normal. 09/17/2023 3:[address] [facility] Gross Description A(1). Esophagus, Distal, Distal esophagus biopsies: The specimen is received in formalin, labeled with the patient's name, medical record number and other identifying information and designated ? distal esophagus? . It consists of 4 grider soft tissue fragments ranging from 0.2-0.4 cm. Entirely submitted in one cassette. B(2). Esophagus, Mid, Mid esophagus biopsies: The specimen is received in formalin, labeled with the patient's name, medical record number and other identifying information and designated ? mid esophagus? . It consists of 4 grider soft tissue fragments ranging from 0.2-0.5 cm. Entirely submitted in one cassette. (RAYMON Navarro) 09/17/2023 3:20 PM [facility] Microscopic Description A, B. A formal microscopic examination has been performed. Special stains for fungal organisms were done on both biopsy samples with appropriately staining control tissues reviewed concurrently. The findings in the patient sample substantiates the final diagnoses 09/17/2023 3:[address] [facility] Performing Labs The technical component of this testing was completed at [facility] 09/17/2023 3:20 PM [facility] Case Images 09/17/2023 3:[address] [facility] Biopsy STRUCTURE OF LOWER THIRD OF ESOPHAGUS / Unknown 09/14/2023 11:02 AM JOB SPOTTER 09/14/2023 11:12 AM JOB SPOTTER Specimen from unspecified body site obtained by biopsy (specimen) STRUCTURE OF MIDDLE THIRD OF ESOPHAGUS / Unknown 09/14/2023 11:03 AM JOB SPOTTER 09/14/2023 11:12 AM JOB SPOTTER Dorothy VALLECILLO - IDALMIS KOCH [facility]AT[facility] [address] 1[address] floor, [address] [place] [address], [place] [phone] LABORATORY [facility] [address] [facility] (1st floor, no room number) [place] [address], [place] [phone] * UPPER GI ENDOSCOPY (09/14/2023 10:43 AM JOB SPOTTER) [facility] Upper GI Endoscopy [facility] Patient Name: Cathy Raymond ? Procedure Date: 09/14/2023 10:43 AM ? Date of : 1965 ? Admit Type: Outpatient Age: 58 ? Gender: Female Attending MD: DOROTHY FONTENOT MD, ?Total Sedation Time: Instrument Name: 205 - Gastroscope ? Procedure: ?Upper GI endoscopy Indications: ?Dysphagia Providers: ?DOROTHY FONTENOT MD (Doctor) Referring MD: ? Medicines: ?Monitored Anesthesia Care Complications: ?No immediate complications. Procedure: ?Pre-Anesthesia Assessment: ?- Prior to the procedure, a History and Physical ?was performed, and patient medications and ?allergies were reviewed. The patient is competent. ?The risks and benefits of the procedure and the ?sedation options and risks were discussed with the ?patient. All questions were answered and informed ?consent was obtained. Patient identification and ?proposed procedure were verified by the physician ?in the procedure room. Mental Status Examination: ?alert and oriented. Airway Examination: normal ?oropharyngeal airway and neck mobility. Respiratory ?Examination: clear to auscultation. CV Examination: ?regular rate and rhythm. ASA Grade Assessment: II - ?A patient with mild systemic disease. After ?reviewing the risks and benefits, the patient was ?deemed in satisfactory condition to undergo the ?procedure. The anesthesia plan was to use monitored ?anesthesia care (MAC). Immediately prior to ?administration of medications, the patient was ?re-assessed for adequacy to receive sedatives. The ?heart rate, respiratory rate, oxygen saturations, ?blood pressure, adequacy of pulmonary ventilation, ?and response to care were monitored throughout the ?procedure. The physical status of the patient was ?re-assessed after the procedure. ?After obtaining informed consent, the endoscope was ?passed under direct vision. Throughout the ?procedure, the patient's blood pressure, pulse, and ?oxygen saturations were monitored continuously. The ?Olympus Gastroscope, Model # GIF-H190, [place] # ?205, SN #[id number] was introduced through the mouth, ?and advanced to the jejunum. The upper GI endoscopy ?was accomplished without difficulty. The patient ?tolerated the procedure well. ? Findings: ? The examined esophagus was normal. Biopsies were taken in the mid and ? distal esophagus with a cold forceps for histology. ? Evidence of a gastric bypass was found. A gastric pouch with a normal ? size was found containing suture material. The gastrojejunal anastomosis ? was characterized by healthy appearing mucosa. This was traversed. ? The examined jejunum was normal. ? Impression: ? - Normal esophagus. Biopsied. ?- Gastric bypass with a normal-sized pouch. ?Gastrojejunal anastomosis characterized by healthy ?appearing mucosa. ?- Normal examined jejunum. Recommendation: ? - Await pathology results. ?- I would be happy to see this patient in the ?clinic if biopsies are negative and symptoms ?continue. ? Electonically signed by Dorothy Fontenot MD DOROTHY FONTENOT MD 09/14/2023 11:18:14 AM I was physically present for the entire viewing portion of the exam. DOROTHY FONTENOT MD Number of Addenda: 0 Note Initiated On: 09/14/2023 10:43 AM MRN: ?[id number] Procedure Date: ? 09/14/2023 10:43:42 AM Total Procedure Duration: 0 hours 6 minutes 20 seconds Estimated Blood Loss: ? 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 Source: [facility]. 10/03/2019 09/14/2023 Advance Directives For more information, please contact: [phone] Latest Code Status on File Code Status Date Activated Date Inactivated Comments Full Code 02/04/2017 8:21 AM 12/06/2018 8:11 AM Care Teams Dinkey Engine Firer Relationship Specialty Start Date End Date Elissa Barnes [address] [facility] [place] [address] PCP - General Physician Osteopathic Resident 08/28/21 Dexter Sykes MD [place] [address] [address] 09/15/16 Siva Hearn MD [address] [address] Neurology 09/15/16 Radha Espinoza, GEOFF Registered Nurse Neurology 12/15/16 Jacob Hernandez MD [address] [id number] Assigned Neuroscience Provider 07/27/20
--- OUTSIDE RECORDS SUMMARY | 2023-10-16 05:44 | XMS_ITS | Encounter Summary ---
Author Name Unknown Organization [facility] Address [address] [place] [address]. [place] [address] Care Team Providers Care Accounts Receivable Processor Name Role Phone Dexter Sykes MD Unavailable [phone] Siva Hearn MD Unavailable [phone] Radha Espinoza RN Unavailable Unavailable Jacob Hernandez MD Unavailable [phone] Elissa Barnes Primary Care Provider [phone] Reason for Visit * Auth/Cert (Routine) Specialty Diagnoses / Procedures Referred By Yulissa t Referred To Contact Surgery Diagnoses Esophageal dysphagia Esophageal dysphagia [R13.19] Procedures [facility] UGI ENDOSCOPY DIAG W OR W/O BRUSH/WASH ESOPHAGOGASTRODUODENOSCOPY [facility] [address] [place] [address] Referral ID Status Reason Start Date Expiration Date Visits Re quested Visits Authorized [id number] 1 1 Encounter Details Date Type Department Care Team (Late st Contact Info) Description 09/14/2023 7:38 AM QUALITY CONTROL INSPECTOR HEADING - 09/14/2023 11:56 AM QUALITY CONTROL INSPECTOR HEADING Hospital Encounter [facility] PreOP/PostOP [address] [place] [address] Dorothy Anderson MD [facility] [address] [facility] [place] [id number] Discharge Disposition: Home or Self Care Social [...] on file documented as of this encounter Last Filed Vital Signs Vital Sign Reading Time Taken Comments Blood Pressure 122/85 09/14/2023 11:30 AM QUALITY CONTROL INSPECTOR HEADING Pulse 92 09/14/2023 11:22 AM QUALITY CONTROL INSPECTOR HEADING Temperature 36.4 ??C (97.6 ??F) 09/14/2023 11:[address] Respiratory Rate 14 09/14/2023 11:14 AM QUALITY CONTROL INSPECTOR HEADING Oxygen Saturation 98% 09/14/2023 11:30 AM QUALITY CONTROL INSPECTOR HEADING Inhaled Oxygen Concentration - - Weight 87.1 kg (192 lb) 09/14/2023 8:17 AM QUALITY CONTROL INSPECTOR HEADING Height 172.7 cm (5' 8) 09/14/2023 8:17 AM QUALITY CONTROL INSPECTOR HEADING Body Mass Index 29.19 09/14/2023 8:17 AM QUALITY CONTROL INSPECTOR HEADING documented in this encounter Discharge Instructions * Discharge Instructions* Suyapa Durand RN - 09/14/2023 11:18 AM QUALITY CONTROL INSPECTOR HEADING SEDATION ADULT DISCHARGE INSTRUCTIONS SPECIAL PRECAUTIONS FOR 24 HOURS AFTER SURGERY IT IS NOT UNUSUAL TO FEEL LIGHT-HEADED OR FAINT, UP TO 24 HOURS AFTER SURGERY OR WHILE TAKING PAIN MEDICATION. IF YOU HAVE THESE SYMPTOMS; SIT FOR A FEW MINUTES BEFORE STANDING AND HAVE SOMEONE ASSIST YOU WHEN YOU GET UP TO WALK OR USE THE BATHROOM. YOU SHOULD REST AND RELAX FOR THE NEXT 24 HOURS AND YOU MUST MAKE ARRANGEMENTS TO HAVE SOMEONE STAYWITH YOU FOR AT LEAST 24 HOURS AFTER YOUR DISCHARGE. AVOID HAZARDOUS AND STRENUOUS ACTIVITIES. DO NOT MAKE IMPORTANT DECISIONS FOR [address] ANY VEHICLE OR OPERATE MECHANICAL EQUIPMENT FOR 24 HOURS FOLLOWING THE END OF YOUR SURGERY. EVEN THOUGH YOU MAY FEEL NORMAL, YOUR REACTIONS MAY BE AFFECTED BY THE MEDICATION YOU HAVE RECEIVED. DO NOT DRINK ALCOHOLIC BEVERAGES FOR 24 HOURS FOLLOWING YOUR SURGERY. DRINK CLEAR LIQUIDS (APPLE JUICE, TONO KEYONA, 7-UP, BROTH, ETC.). PROGRESS TO YOUR REGULAR DIET YOU FEEL ABLE. YOU MAY HAVE A DRY MOUTH, A SORE THROAT, MUSCLES ACHES OR TROUBLE SLEEPING. THESE SHOULD GO AWAY AFTER 24 HOURS. CALL YOUR DOCTOR FOR ANY OF THE FOLLOWING: SIGNS OF INFECTION (FEVER, GROWING TENDERNESS AT THE SURGERY SITE, A LARGE AMOUNT OF DRAINAGE OR BLEEDING, SEVERE PAIN, FOUL-SMELLING DRAINAGE, REDNESS OR SWELLING. IT HAS BEEN OVER 8 TO 10 HOURS SINCE SURGERY AND YOU ARE STILL NOT ABLE TO URINATE (PASS WATER). DR. DOROTHY ANDERSON M.D. CLINIC PHONE NUMBER: [phone] ITY CONTROL INSPECTOR HEADING * Attachments The following attachments cannot be sent through Care Everywhere. 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 (Israeli) documented in this encounter Medications at Time of Discharge Medication Sig Dispensed Refills Start Date End Date acyclovir (ZOVIRAX) 800 MG tablet Take 800 mg by mouth as needed 0 alendronate (FOSAMAX) 70 MG tablet Take 70 mg by mouth every 7 days 0 calcitonin, salmon, (MIACALCIN) 200 UNIT/ACT nasal spray [place] 1 spray into one nostril alternating nostrils daily 0 10/23/2020 calcium carbonate-vitamin D (OSCAL W/D) 500-200 MG-UNIT tablet Take 1 tablet by mouth 2 times daily 0 carboxymethylcellulose PF (REFRESH PLUS) 0.5 % ophthalmic solution 1 drop 3 times daily as needed for dry eyes 0 cetirizine (ZYRTEC) 10 MG tablet Take 1 tablet by mouth daily 0 01/30/2023 Cholecalciferol (VITAMIN D3 PO) Take 5,000 Units by mouth every morning 0 citalopram (CELEXA) 20 MG tablet Take 20 mg by mouth every morning 0 10/03/2022 clindamycin (CLEOCIN) 300 MG capsule TAKE 2 CAPSULES BY MOUTH 1 HOUR PRIOR TO DENTAL APPTOINTMENT 0 Cyanocobalamin 1000 MCG/ML KIT Inject 1,000 mcg as directed every 30 days 0 furosemide (LASIX) 20 MG tablet Take 20 mg by mouth daily 0 gabapentin (NEURONTIN) 600 MG tablet Take 1,200 mg by mouth 3 times daily 0 glycerin (GLYCERIN, ADULT,) 2 g suppository Insert 1 Suppository rectally once daily if needed for Constipation. 0 09/11/2023 hydrocortisone 2.5 % ointment APPLY TOPICALLY TO AFFECTED AREA(S) TWICE DAILY. 0 03/16/2023 levothyroxine (SYNTHROID/LEVOTHROID) 50 MCG tabletIndications:Hypo thyroidism Take 50 mcg by mouth daily 0 lidocaine (LIDODERM) 5 % patch APPLY 1 PATCH TOPICALLY ONTO PAINFUL AREA OF SKIN THAT IS DRY, CLEAN,HAIRLESS FOR UP TO 12 WITHIN A 24 HOUR PERIOD *12 HOURS ON AND 12 HOURS OFF* 0 09/06/2023 metFORMIN (GLUCOPHAGE) 500 MG tablet Take 1 [...] daily as needed Reported on 02/18/2017 0 oxyBUTYnin ER (DITROPAN XL) 10 MG 24 hr tablet Take 10 mg by mouth daily 0 pantoprazole (PROTONIX) 40 MG EC tablet Take 40 mg by mouth daily before breakfast 0 pramipexole (MIRAPEX) 0.5 MG tablet TAKE [...] topically 3 times daily As needed 0 cephALEXin (KEFLEX) 500 MG capsule Take 1 Capsule (500 mg) by mouth three times daily for 10 days. 0 09/11/2023 09/21/2023 documented as of this encounter Miscellaneous Notes * Pharmacy-Admission Medication History - Abdiaziz Kirk, [facility] - 09/12/2023 1:42 PM CST Medication history and patient interview completed by pre-admitting nurse. Reviewed by pharmacist. No further clarifications needed. Abdiaziz Kirk JESICAwiley Status Changed by Time of change Nurse Arthur Rodriguez RN ThuSep 11, 2023 11:35 AM Prior to Admission medications Medication Sig Last Dose Taking? Auth Provider Custodial End Date acyclovir (ZOVIRAX) 800 MG tablet Take 800 mg by mouth as needed Yes Reported, Patient Yes alendronate (FOSAMAX) 70 MG tablet Take 70 mg by mouth every 7 days Yes Reported, Patient Yes calcitonin, salmon, (MIACALCIN) 200 UNIT/ACT nasal spray [place] 1 spray into one nostril alternatingnostrils daily Yes Reported, Patient Yes calcium carbonate-vitamin D (OSCAL W/D) 500-200 MG-UNIT tablet Take 1 tablet by mouth 2 times dailyYes Reported, Patient carboxymethylcellulose PF (REFRESH PLUS) 0.5 % ophthalmic solution 1 drop 3 times daily as needed for dry eyes Yes Reported, Patient cephALEXin (KEFLEX) 500 MG capsule Take 1 Capsule (500 mg) by mouth three times daily for 10 days. Yes Unknown, Entered By History 09/21/23 cetirizine (ZYRTEC) 10 MG tablet Take 1 tablet by mouth daily Yes Unknown, Entered By History Cholecalciferol (VITAMIN D3 PO) Take 5,000 Units by mouth every morning Yes Reported, Patient citalopram (CELEXA) 20 MG tablet Take 20 mg by mouth every morning Yes Reported, Patient Yes clindamycin (CLEOCIN) 300 MG capsule TAKE 2 CAPSULES BY MOUTH 1 HOUR PRIOR TO DENTAL APPTOINTMENT Yes Reported, Patient Cyanocobalamin 1000 MCG/ML KIT Inject 1,000 mcg as directed every 30 days Yes Reported, Patient furosemide (LASIX) 20 MG tablet Take 20 mg by mouth daily Yes Reported, Patient Yes gabapentin (NEURONTIN) 600 MG tablet Take 1,200 mg by mouth 3 times daily Yes Reported, Patient Yes glycerin (GLYCERIN, ADULT,) 2 g suppository Insert 1 Suppository rectally once daily if needed for Constipation. Yes Unknown, Entered By History hydrocortisone 2.5 % ointment APPLY TOPICALLY TO AFFECTED AREA(S) TWICE DAILY. Yes Unknown, EnteredBy History levothyroxine (SYNTHROID/LEVOTHROID) 50 MCG tablet Take 50 mcg by mouth daily Yes Reported, PatientYes lidocaine (LIDODERM) 5 % patch APPLY 1 PATCH TOPICALLY ONTO PAINFUL AREA OF SKIN THAT IS DRY, CLEAN,HAIRLESS FOR UP TO 12 WITHIN A 24 HOUR PERIOD *12 HOURS ON AND 12 HOURS OFF* Yes Unknown, Entered By History metFORMIN (GLUCOPHAGE) 500 MG tablet Take 1 Tablet (500 mg) by mouth two times daily with meals YesReported, Patient Yes mirabegron (MYRBETRIQ) 25 MG 24 hr tablet Take 1 Tablet (25 mg) by mouth once daily. Yes Reported, Patient Multiple Vitamin (MULTI-VITAMINS) TABS Take 1 tablet by mouth daily Yes Reported, Patient nystatin (MYCOSTATIN) cream Apply 1 applicator topically daily as needed Reported on 02/18/2017 Yes Reported, Patient oxyBUTYnin ER (DITROPAN XL) 10 MG 24 hr tablet Take 10 mg by mouth daily Yes Unknown, Entered By History pantoprazole (PROTONIX) 40 MG EC tablet Take 40 mg by mouth daily before breakfast Yes Unknown, Entered By History pramipexole (MIRAPEX) 0.5 MG tablet TAKE 1 TABLET BY MOUTH IN THE MORNING AND TAKE 2 TABLETS AT BEDTIME Yes Reported, Patient Yes spironolactone (ALDACTONE) 50 MG tablet Take 50 mg by mouth every morning Yes Reported, Patient Yes thiamine (B-1) 100 MG tablet Take 100 mg by mouth daily Yes Reported, Patient traZODone (DESYREL) 100 MG tablet Take 100 mg by mouth at bedtime Yes Reported, Patient Yes triamcinolone (KENALOG) 0.1 % external cream Apply topically 3 times daily As needed Yes Reported, Patient ITY CONTROL INSPECTOR HEADING documented in this encounter Plan of Treatment Not on file documented as of this encounter Procedures Procedure Name Priority Date/Time Associated Diagnosis Comments GLUCOSE BY METER Routine 09/14/2023 11:2 7 AM QUALITY CONTROL INSPECTOR HEADING SURGICAL PATHOLOGY EXAM Routine 09/14/2023 11:02 AM QUALITY CONTROL INSPECTOR HEADING ESOPHAGOGASTRODUO DENOSCOPY, WITH BIOPSY 09/14/2023 10:44 AM QUALITY CONTROL INSPECTOR HEADING Esophageal dysphagia Special Needs Patient in wheelchair. Can stand and pivot to bed 2 leg braces UPPER GI ENDOSCOPY Routine 09/14/2023 10:43 AM QUALITY CONTROL INSPECTOR HEADING documented in this encounter Results * Glucose by meter (09/14/2023 11:27 AM QUALITY CONTROL INSPECTOR HEADING) GLUCOSE BY METER POCT 97 70 - 99 mg/dL 09/14/2023 11:34 AM QUALITY CONTROL INSPECTOR HEADING LABORATORY POC Blood, Capillary BLOOD SPECIMEN / Unknown 09/14/2023 11:27 AM QUALITY CONTROL INSPECTOR HEADING 09/14/2023 11:34 AM QUALITY CONTROL INSPECTOR HEADING Dorothy Anderson MD [facility] [address] [facility] (1st floor, no room number) [place] [id number], [facility] [phone] * Surgical Pathology Exam (09/14/2023 11:02 AM QUALITY CONTROL INSPECTOR HEADING) Case Report Surgical Pathology Report ? Case: [id number] ? Authorizing Provider: ??Dorothy Anderson MD ?Collected: ? 09/14/2023 11:02 AM ? Ordering Location: ? [facility] ?? Received: ?09/14/2023 11:12 AM ? Main OR ? Pathologist: ? Sharon Henning, ? MD ? Specimens: ?? A) - Esophagus, Distal, Distal esophagus biopsies ? B) - Esophagus, Mid, Mid esophagus biopsies ? 09/17/2023 3:20 PM [facility] Final Diagnosis A: Esophagus, distal, biopsies: -Squamous mucosa with basal layer hyperplasia and scant chronic inflammation without eosinophils, features suggest reflux-like change -Special stain for fungal organisms performed and negative B: Esophagus, mid, biopsies: -Squamous mucosa with basal layer hyperplasia and scant chronic inflammation without eosinophils; features suggest reflux-like change -Special stain for fungal organisms performed and negative 09/17/2023 3:20 PM [facility] Clinical Information Procedure: ESOPHAGOGASTRODU ODENOSCOPY Pre-op [...] examined jejunum was normal. 09/17/2023 3:20 PM [facility] Gross Description A(1). Esophagus, Distal, Distal [...] one cassette. (RAYMON Navarro) 09/17/2023 3:20 PM [facility] Microscopic Description A, B. A formal microscopic examination has been performed. Special stains for fungal organisms were done on both biopsy samples with appropriately staining control tissues reviewed concurrently. The findings in the patient sample substantiates the final diagnoses 09/17/2023 3:20 PM [facility] Performing Labs The technical component of this testing was completed at [facility] 09/17/2023 3:20 PM [facility] Case Images 09/17/2023 3:20 PM [facility] Biopsy STRUCTURE OF LOWER THIRD OF ESOPHAGUS / Unknown 09/14/2023 11:02 AM QUALITY CONTROL INSPECTOR HEADING 09/14/2023 11:12 AM QUALITY CONTROL INSPECTOR HEADING Specimen from unspecified body site obtained by biopsy (specimen) STRUCTURE OF MIDDLE THIRD OF ESOPHAGUS / Unknown 09/14/2023 11:03 AM QUALITY CONTROL INSPECTOR HEADING 09/14/2023 11:12 AM QUALITY CONTROL INSPECTOR HEADING Dorothy VALLECILLO - [facility] LABORATORY [facility] Acute Care Lab [address] 1st floor, [address] [place] [address], [facility] [phone] LABORATORY [facility] Acute Care Lab [address] [facility] (1st floor, no room number) [place] [address], [facility] [phone] * UPPER GI ENDOSCOPY (09/14/2023 10:43 AM QUALITY CONTROL INSPECTOR HEADING) [facility] Upper GI Endoscopy [facility] Patient Name: Cathy Raymond ? Procedure Date: 09/14/2023 10:43 AM ? Date of : 1965 ? Admit Type: Outpatient Age: 58 ? Gender: Female Attending MD: DOROTHY ANDERSON MD, ?Total Sedation Time: Instrument Name: 205 - Gastroscope ? Procedure: ?Upper GI endoscopy Indications: ?Dysphagia Providers: ?DOROTHY ANDERSON MD (Doctor) Referring MD: ? Medicines: ?Monitored [...] Model # [id number]-H190, Endora # ?205, SN #[id number] was introduced through the mouth, ?and advanced [...] symptoms ?continue. ? Electonically signed by Dorothy Anderson MD DOROTHY ANDERSON MD 09/14/2023 11:18:14 AM I was physically present for the entire viewing portion of the exam. DOROTHY ANDERSON MD Number of Addenda: 0 Note Initiated On: 09/14/2023 10:43 AM MRN: ?[id number] Procedure Date: ? 09/14/2023 10:43:42 AM Total Procedure Duration: 0 hours 6 minutes 20 seconds Estimated Blood Loss: ? Scope In: 10:58:06 AM Scope Out: 11:04:26 AM RADIOLOGY RESULTS 09/14/2023 10:4 3 AM QUALITY CONTROL INSPECTOR HEADING Dorothy Anderson MD PROCEDURES RADIOLOGY RESULTS documented in this encounter Visit Diagnoses Not on filedocumented in this encounter Administered Medications Inactive Administered Medications - up to 3 most recent administrations Medication Order MAR Action Action Date Dose Rate Site fentaNYL (PF) (SUBLIMAZE) injection 25 mcg 25 mcg, Intravenous, EVERY 15 MIN PRN, other, acute pain while in Phase II, Starting on Thu09/14/23 at 1141, Up to a total of 100 mcg. Use as a short acting IV agent for acute pain control. Patient must be monitored a minimum of 30 minutes before leaving the facility and meet all Phase II discharge criteria., Phase ll lactated ringers infusion at 10 mL/hr, Intravenous, CONTINUOUS, IF patient NOT on dialysis., Pre-procedure, Starting on Thu09/14/23 at 0900, Until Thu09/14/23 at 1401 lidocaine (LMX4) cream Topical, EVERY 1 HOUR PRN, pain, with VAD insertion, Starting on Thu09/14/23 at 0757, Apply at least 30 minutes prior to VAD insertion in divided doses as needed for size of site for insertion. MAX Dose: 2.5 g (?? of 5 g tube) Do NOT give if patient has a history of allergy to any local anesthetic or any john product. Do NOT use both lidocaine intradermal/subcutaneous injection and the lidocaine cream on the same site., Pre-procedure lidocaine (LMX4) cream Topical, EVERY 1 HOUR PRN, pain, with VAD insertion, Starting on Thu09/14/23 at 0832, Apply at least 30 minutes prior to VAD insertion in divided doses as needed for size of site for insertion. MAX Dose: 2.5 g (?? of 5 g tube) Do NOT give if patient has a history of allergy to any local anesthetic or any john product. Do NOT use both lidocaine intradermal/subcutaneous injection and the lidocaine cream on the same site., Pre-procedure lidocaine 1 % 0.1-1 mL 0.1-1 mL, Other, EVERY 1 HOUR PRN, mild pain with VAD insertion, Starting on Thu09/14/23 at 0757, MAX dose 1 mL subcutaneous OR intradermal along the side of the vein in divided doses as needed for VAD insertion. Do NOT give if patient has a history of allergy to any local anesthetic or any john product. Do NOT use both lidocaine intradermal/subcutaneous injection and the lidocaine cream on the same site., Pre-procedure lidocaine 1 % 0.1-1 mL 0.1-1 mL, Other, EVERY 1 HOUR PRN, mild pain with VAD insertion, Starting on Thu09/14/23 at 0832, MAX dose 1 mL subcutaneous OR intradermal along the side of the vein in divided doses as needed for VAD insertion. Do NOT give if patient has a history of allergy to any local anesthetic or any john product. Do NOT use both lidocaine intradermal/subcutaneous injection and the lidocaine cream on the same site., Pre-procedure ondansetron (ZOFRAN ODT) ODT tab 4 mg 4 mg, Oral, EVERY 30 MIN PRN, nausea, Starting on Thu09/14/23 at 1141, For 2 doses, MAX total dose = 8 mg, including OR dosing. If not resolved in 15 minutes, then go to step 2 [prochlorperazine (COMPAZINE), if ordered]. With dry hands, peel back foil backing and gently remove tablet. Do not push oral disintegrating tablet through foil backing. Administer immediately on tongue and oral disintegrating tablet dissolves in seconds, then swallow with saliva. Liquid not required., Phase ll ondansetron (ZOFRAN ODT) ODT tab 4 mg 4 mg, Oral, EVERY 6 HOURS PRN, nausea, vomiting, Starting on Thu09/14/23 at 1141, This is Step 1 of nausea and vomiting management. If nausea not resolved in 15 minutes, go to Step 2 prochlorperazine (COMPAZINE). Do not push through foil backing. Peel back foil and gently remove. Place on tongue immediately. Administration with liquid unnecessary With dry hands, peel back foil backing and gently remove tablet. Do not push oral disintegrating tablet through foil backing. Administer immediately on tongue and oral disintegrating tablet dissolves in seconds, then swallow with saliva. Liquid not required. ondansetron (ZOFRAN) injection 4 mg 4 mg, Intravenous, ONCE PRN, nausea, vomiting, Administer over 2-5 Minutes, Starting on Thu09/14/23 at 0757, For 1 dose, Give in ENDO pre procedure prep area. Irritant., Pre-procedure ondansetron (ZOFRAN) injection 4 mg 4 mg, Intravenous, EVERY 30 MIN PRN, nausea, Administer over 2-5 Minutes, Starting on Thu09/14/23 at 1141, For 2 doses, MAX total dose = 8 mg, including OR dosing. If not resolved in 15 minutes, then go to step 2 [prochlorperazine (COMPAZINE), if ordered]. Irritant., Phase ll ondansetron (ZOFRAN) injection 4 mg 4 mg, Intravenous, EVERY 6 HOURS PRN, nausea, vomiting, Administer over 2-5 Minutes, Starting on Thu09/14/23 at 1141, This is Step 1 of nausea and vomiting management. If nausea not resolved in 15 minutes, go to Step 2 prochlorperazine (COMPAZINE). Irritant. oxyCODONE (ROXICODONE) tablet 10 mg 10 mg, Oral, ONCE PRN, severe pain, Starting on Thu09/14/23 at 1141, For 1 dose, Max: 5 mg for opioid-na??ve patient. Use caution with patient Age GREATER than 65 years, COPD, or CrCl LESS than 50 mL/min., Phase ll oxyCODONE (ROXICODONE) tablet 5 mg 5 mg, Oral, ONCE PRN, moderate pain, Starting on Thu09/14/23 at 1141, For 1 dose, Max: 5 mg for opioid-na??ve patient., Phase ll prochlorperazine (COMPAZINE) injection 10 mg 10 mg, Intravenous, EVERY 6 HOURS PRN, nausea, vomiting, Administer over 1-2 Minutes, Starting on Thu09/14/23 at 1141, This is Step 2 of nausea and vomiting management. If nausea not resolved in 15-30 minutes, Notify provider. prochlorperazine (COMPAZINE) injection 5 mg 5 mg, Intravenous, EVERY 6 HOURS PRN, nausea, vomiting, Administer over 1-2 Minutes, Starting on Thu09/14/23 at 1141, Phase ll prochlorperazine (COMPAZINE) tablet 10 mg 10 mg, Oral, EVERY 6 HOURS PRN, nausea, vomiting, Starting on Thu09/14/23 at 1141, This is Step 2 of nausea and vomiting management. If nausea not resolved in 15-30 minutes, Notify provider. sodium chloride (PF) 0.9% PF flush 3 mL 3 mL, Intracatheter, EVERY 8 HOURS, First dose on Thu09/14/23 at 0800, to lock peripheral IV dormant line, Pre-procedure sodium chloride (PF) 0.9% PF flush 3 mL 3 mL, Intracatheter, EVERY 1 MIN PRN, line flush, other, to ensure patency or to lock dormant line, Starting on Thu09/14/23 at 0757, Pre-procedure sodium chloride (PF) 0.9% PF flush 3 mL 3 mL, Intracatheter, EVERY 8 HOURS, First dose on Thu09/14/23 at 0900, to lock peripheral IV dormant line, Pre-procedure sodium chloride (PF) 0.9% PF flush 3 mL 3 mL, Intracatheter, EVERY 1 MIN PRN, line flush, other, to ensure patency or to lock dormant line, Starting on Thu09/14/23 at 0832, Pre-procedure documented in this encounter Active and Recently Administered Medications Times are shown in QUALITY CONTROL INSPECTOR HEADING. Scheduled Medication Order 09/12/2023 09/13/2023 09/14/2023 sodium chloride (PF) 0.9% PF flush 3 mL 3 mL, Intracatheter, EVERY 8 HOURS, First dose on Thu09/14/23 at 0800, to lock peripheral IV dormant line, Pre-procedure 0800 (Canceled Entry - Provider: Orders Generic Provider - Comment: Automatically canceled at discontinue of medication order) sodium chloride (PF) 0.9% PF flush 3 mL 3 mL, Intracatheter, EVERY 8 HOURS, First dose on Thu09/14/23 at 0900, to lock peripheral IV dormant line, Pre-procedure 0900 (Canceled Entry - Provider: Orders Generic Provider - Comment: Automatically canceled at discontinue of medication order) Continuous Medication Order 09/12/2023 09/13/2023 09/14/2023 lactated ringers infusion at 10 mL/hr, Intravenous, CONTINUOUS, IF patient NOT on dialysis., Pre-procedure, Starting on Thu09/14/23 at 0900, Until Thu09/14/23 at 1401 0900 (Canceled Entry - Provider: Orders Generic Provider - Comment: Automatically canceled at discontinue of medication order) PRN Medication Order 09/12/2023 09/13/2023 09/14/2023 fentaNYL (PF) (SUBLIMAZE) injection 25 mcg 25 mcg, Intravenous, EVERY 15 MIN PRN, other, acute pain while in Phase II, Starting on Thu09/14/23 at 1141, Up to a total of 100 mcg. Use as a short acting IV agent for acute pain control. Patient must be monitored a minimum of 30 minutes before leaving the facility and meet all Phase II discharge criteria., Phase ll flumazenil (ROMAZICON) injection 0.2 mg 0.2 mg, Intravenous, EVERY 1 MIN PRN, benzodiazepine reversal, over sedation, Administer over 1 Minutes, Starting on Thu09/14/23 at 1141, For 12 hours, Give over 15 seconds. If inadequate response after 45 seconds, may repeat up to a MAX total dose of 1 mg. Continue monitoring until discharge criteria are met for a minimum of 2 hours Irritant. Use with caution in patients on benzodiazepine therapy. lidocaine (LMX4) cream Topical, EVERY 1 HOUR PRN, pain, with VAD insertion, Starting on Thu09/14/23 at 0757, Apply at least 30 minutes prior to VAD insertion in divided doses as needed for size of site for insertion. MAX Dose: 2.5 g (?? of 5 g tube) Do NOT give if patient has a history of allergy to any local anesthetic or any john product. Do NOT use both lidocaine intradermal/subcutaneous injection and the lidocaine cream on the same site., Pre-procedure lidocaine (LMX4) cream Topical, EVERY 1 HOUR PRN, pain, with VAD insertion, Starting on Thu09/14/23 at 0832, Apply at least 30 minutes prior to VAD insertion in divided doses as needed for size of site for insertion. MAX Dose: 2.5 g (?? of 5 g tube) Do NOT give if patient has a history of allergy to any local anesthetic or any john product. Do NOT use both lidocaine intradermal/subcutaneous injection and the lidocaine cream on the same site., Pre-procedure lidocaine 1 % 0.1-1 mL 0.1-1 mL, Other, EVERY 1 HOUR PRN, mild pain with VAD insertion, Starting on Thu09/14/23 at 0757, MAX dose 1 mL subcutaneous OR intradermal along the side of the vein in divided doses as needed for VAD insertion. Do NOT give if patient has a history of allergy to any local anesthetic or any john product. Do NOT use both lidocaine intradermal/subcutaneous injection and the lidocaine cream on the same site., Pre-procedure lidocaine 1 % 0.1-1 mL 0.1-1 mL, Other, EVERY 1 HOUR PRN, mild pain with VAD insertion, Starting on Thu09/14/23 at 0832, MAX dose 1 mL subcutaneous OR intradermal along the side of the vein in divided doses as needed for VAD insertion. Do NOT give if patient has a history of allergy to any local anesthetic or any john product. Do NOT use both lidocaine intradermal/subcutaneous injection and the lidocaine cream on the same site., Pre-procedure naloxone (NARCAN) injection 0.2 mg 0.2 mg, Intravenous, EVERY 2 MIN PRN, opioid reversal, Starting on Thu09/14/23 at 1141, Administer intravenous route when available and notify provider when administered. For unintended sedation or respiratory depression if all of the below criteria are met: ~ respiratory rate LESS than or EQUAL to 8. ~SaO2 less than 92% and or/end-tidal CO2 is greater than 50. ~ the patient is receiving an opioid, has unintended sedations assessed as RASS (-3), and is currently not on mechanical ventilation. RASS scale moderate (-3) is movement or eye opening to voice but no eye contact. Patient Monitoring Once the patient has demonstrated a response to the naloxone, continue to monitor respiratory rate, depth, oxygen saturation and end-tidal CO2 (if available) every 15 minutes x 2, then every 30 minutes x 2, then every 1 hour x 1 after each naloxone dose. Consider transfer to ICU if patient respiratory parameters have not improved after 4 naloxone doses. naloxone (NARCAN) injection 0.2 mg 0.2 mg, Intramuscular, EVERY 2 MIN PRN, opioid reversal, Starting on Thu09/14/23 at 1141, Administer intramuscular if an intravenous route is not available and notify provider when administered. For unintended sedation or respiratory depression if all of the below criteria are met: ~ respiratory rate LESS than or EQUAL to 8. ~SaO2 less than 92% and or/end-tidal CO2 is greater than 50. ~ the patient is receiving an opioid, has unintended sedations assessed as RASS (-3), and is currently not on mechanical ventilation. RASS scale moderate (-3) is movement or eye opening to voice but no eye contact. Patient Monitoring Once the patient has demonstrated a response to the naloxone, continue to monitor respiratory rate, depth, oxygen saturation and end-tidal CO2 (if available) every 15 minutes x 2, then every 30 minutes x 2, then every 1 hour x 1 after each naloxone dose. Consider transfer to ICU if patient respiratory parameters have not improved after 4 naloxone doses. naloxone (NARCAN) injection 0.4 mg 0.4 mg, Intravenous, EVERY 2 MIN PRN, opioid reversal, Starting on Thu09/14/23 at 1141, Administer intravenous route when available and notify provider when administered. For unintended sedation or respiratory depression if all of the below criteria are met: ~ respiratory rate LESS than or EQUAL to 8. ~ SaO2 less than 92% and or/end-tidal CO2 is greater than 50. ~ the patient is receiving an opioid, has unintended sedation assessed as RASS (-4) or (-5) and patient is currently not on mechanical ventilation. RASS scale (-4) is deep sedation with no response to voice but movement or eye opening to physical stimulation. RASS scale (-5) is unarousable. Patient Monitoring Once the patient has demonstrated a response to the naloxone, continue to monitor respiratory rate, depth, oxygen saturation and end-tidal CO2 (if available) every 15 minutes x 2, then every 30 minutes x 2, then every 1 hour x 1 after each naloxone dose. Consider transfer to ICU if patient respiratory parameters have not improved after 4 naloxone doses. naloxone (NARCAN) injection 0.4 mg 0.4 mg, Intramuscular, EVERY 2 MIN PRN, opioid reversal, Starting on Thu09/14/23 at 1141, Administer intramuscular if an intravenous route is not available and notify provider when administered. For unintended sedation or respiratory depression if all of the below criteria are met: ~ respiratory rate LESS than or EQUAL to 8. ~ SaO2 less than 92% and or/end-tidal CO2 is greater than 50. ~ the patient is receiving an opioid, has unintended sedation assessed as RASS (-4) or (-5) and patient is currently not on mechanical ventilation. RASS scale (-4) is deep sedation with no response to voice but movement or eye opening to physical stimulation. RASS scale (-5) is unarousable. Patient Monitoring Once the patient has demonstrated a response to the naloxone, continue to monitor respiratory rate, depth, oxygen saturation and end-tidal CO2 (if available) every 15 minutes x 2, then every 30 minutes x 2, then every 1 hour x 1 after each naloxone dose. Consider transfer to ICU if patient respiratory parameters have not improved after 4 naloxone doses. ondansetron (ZOFRAN ODT) ODT tab 4 mg(Linked Group 1) 4 mg, Oral, EVERY 30 MIN PRN, nausea, Starting on Thu09/14/23 at 1141, For 2 doses, MAX total dose = 8 mg, including OR dosing. If not resolved in 15 minutes, then go to step 2 [prochlorperazine (COMPAZINE), if ordered]. With dry hands, peel back foil backing and gently remove tablet. Do not push oral disintegrating tablet through foil backing. Administer immediately on tongue and oral disintegrating tablet dissolves in seconds, then swallow with saliva. Liquid not required., Phase ll ondansetron (ZOFRAN ODT) ODT tab 4 mg(Linked Group 2) 4 mg, Oral, EVERY 6 HOURS PRN, nausea, vomiting, Starting on Thu09/14/23 at 1141, This is Step 1 of nausea and vomiting management. If nausea not resolved in 15 minutes, go to Step 2 prochlorperazine (COMPAZINE). Do not push through foil backing. Peel back foil and gently remove. Place on tongue immediately. Administration with liquid unnecessary With dry hands, peel back foil backing and gently remove tablet. Do not push oral disintegrating tablet through foil backing. Administer immediately on tongue and oral disintegrating tablet dissolves in seconds, then swallow with saliva. Liquid not required. ondansetron (ZOFRAN) injection 4 mg 4 mg, Intravenous, ONCE PRN, nausea, vomiting, Administer over 2-5 Minutes, Starting on Thu09/14/23 at 0757, For 1 dose, Give in ENDO pre procedure prep area. Irritant., Pre-procedure ondansetron (ZOFRAN) injection 4 mg(Linked Group 1) 4 mg, Intravenous, EVERY 30 MIN PRN, nausea, Administer over 2-5 Minutes, Starting on Thu09/14/23 at 1141, For 2 doses, MAX total dose = 8 mg, including OR dosing. If not resolved in 15 minutes, then go to step 2 [prochlorperazine (COMPAZINE), if ordered]. Irritant., Phase ll ondansetron (ZOFRAN) injection 4 mg(Linked Group 2) 4 mg, Intravenous, EVERY 6 HOURS PRN, nausea, vomiting, Administer over 2-5 Minutes, Starting on Thu09/14/23 at 1141, This is Step 1 of nausea and vomiting management. If nausea not resolved in 15 minutes, go to Step 2 prochlorperazine (COMPAZINE). Irritant. oxyCODONE (ROXICODONE) tablet 10 mg 10 mg, Oral, ONCE PRN, severe pain, Starting on Thu09/14/23 at 1141, For 1 dose, Max: 5 mg for opioid-na??ve patient. Use caution with patient Age GREATER than 65 years, COPD, or CrCl LESS than 50 mL/min., Phase ll oxyCODONE (ROXICODONE) tablet 5 mg 5 mg, Oral, ONCE PRN, moderate pain, Starting on Thu09/14/23 at 1141, For 1 dose, Max: 5 mg for opioid-na??ve patient., Phase ll prochlorperazine (COMPAZINE) injection 10 mg(Linked Group 3) 10 mg, Intravenous, EVERY 6 HOURS PRN, nausea, vomiting, Administer over 1-2 Minutes, Starting on Thu09/14/23 at 1141, This is Step 2 of nausea and vomiting management. If nausea not resolved in 15-30 minutes, Notify provider. prochlorperazine (COMPAZINE) injection 5 mg 5 mg, Intravenous, EVERY 6 HOURS PRN, nausea, vomiting, Administer over 1-2 Minutes, Starting on Thu09/14/23 at 1141, Phase ll prochlorperazine (COMPAZINE) tablet 10 mg(Linked Group 3) 10 mg, Oral, EVERY 6 HOURS PRN, nausea, vomiting, Starting on Thu09/14/23 at 1141, This is Step 2 of nausea and vomiting management. If nausea not resolved in 15-30 minutes, Notify provider. sodium chloride (PF) 0.9% PF flush 3 mL 3 mL, Intracatheter, EVERY 1 MIN PRN, line flush, other, to ensure patency or to lock dormant line, Starting on Thu09/14/23 at 0757, Pre-procedure sodium chloride (PF) 0.9% PF flush 3 mL 3 mL, Intracatheter, EVERY 1 MIN PRN, line flush, other, to ensure patency or to lock dormant line, Starting on Thu09/14/23 at 0832, Pre-procedure Linked Groups Order Group 1: ondansetron (ZOFRAN ODT) ODT tab 4 mgJump to med 4 mg, Oral, EVERY 30 MIN PRN, nausea, Starting on Thu09/14/23 at 1141, For 2 doses, MAX total dose = 8 mg, including OR dosing. If not resolved in 15 minutes, then go to step 2 [prochlorperazine (COMPAZINE), if ordered]. With dry hands, peel back foil backing and gently remove tablet. Do not push oral disintegrating tablet through foil backing. Administer immediately on tongue and oral disintegrating tablet dissolves in seconds, then swallow with saliva. Liquid not required., Phase ll Or ondansetron (ZOFRAN) injection 4 mgJump to med 4 mg, Intravenous, EVERY 30 MIN PRN, nausea, Administer over 2-5 Minutes, Starting on Thu09/14/23 at 1141, For 2 doses, MAX total dose = 8 mg, including OR dosing. If not resolved in 15 minutes, then go to step 2 [prochlorperazine (COMPAZINE), if ordered]. Irritant., Phase ll Group 2: ondansetron (ZOFRAN ODT) ODT tab 4 mgJump to med 4 mg, Oral, EVERY 6 HOURS PRN, nausea, vomiting, Starting on Thu09/14/23 at 1141, This is Step 1 of nausea and vomiting management. If nausea not resolved in 15 minutes, go to Step 2 prochlorperazine (COMPAZINE). Do not push through foil backing. Peel back foil and gently remove. Place on tongue immediately. Administration with liquid unnecessary With dry hands, peel back foil backing and gently remove tablet. Do not push oral disintegrating tablet through foil backing. Administer immediately on tongue and oral disintegrating tablet dissolves in seconds, then swallow with saliva. Liquid not required. Or ondansetron (ZOFRAN) injection 4 mgJump to med 4 mg, Intravenous, EVERY 6 HOURS PRN, nausea, vomiting, Administer over 2-5 Minutes, Starting on Thu09/14/23 at 1141, This is Step 1 of nausea and vomiting management. If nausea not resolved in 15 minutes, go to Step 2 prochlorperazine (COMPAZINE). Irritant. Group 3: prochlorperazine (COMPAZINE) injection 10 mgJump to med 10 mg, Intravenous, EVERY 6 HOURS PRN, nausea, vomiting, Administer over 1-2 Minutes, Starting on Thu09/14/23 at 1141, This is Step 2 of nausea and vomiting management. If nausea not resolved in 15-30 minutes, Notify provider. Or prochlorperazine (COMPAZINE) tablet 10 mgJump to med 10 mg, Oral, EVERY 6 HOURS PRN, nausea, vomiting, Starting on Thu09/14/23 at 1141, This is Step 2 of nausea and vomiting management. If nausea not resolved in 15- 30 minutes, Notify provider. 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 Source: [employer] [facility]. 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
--- OUTSIDE RECORDS SUMMARY | 2023-10-16 05:44 | XMS_ITS | Encounter Summary ---
Author Name Unknown Organization [place] Address [facility] [place] [address] Care Team Providers Care Staff Physical Therapist Name Role Phone Dexter Sykes MD Unavailable [phone] Siva Hearn MD Unavailable [phone] Radha Espinoza RN Unavailable Unavailable Jacob Hernandez MD Unavailable [phone] Joanna Pulido MD Unavailable [phone] Elissa Barnes Primary Care Provider [phone] Reason for Visit * Reason Onset Date Comments Orders 04/22/2023 labs Encounter Details Date Type Department Care Team (Late st Contact Info) Description 04/22/[address] [facility] 1st Floor, [facility] [id number] [phone] Jacob Hernandez MD [address] [place] [address] Orders (labs) Social History Tobacco Use Types Packs/Day Years [...] on file documented as of this encounter Miscellaneous Notes * Telephone Encounter - Giselle Britt, RN - 04/22/2023 1:55 PM CDT Spoke with Maryse at [facility]. Orders faxed accordingly (fax [phone]). Giselle Britt RN * Telephone Encounter - Brittany Abad - 04/22/2023 1:30 PM CDT [facility] Call Center Phone Message May a detailed message be left on voicemail: yes Reason for Call: Other: Maryse from [facility] is calling asking about the lab orders. 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 Source: [facility] 10/03/2019 09/14/2023 Assessment Noted Time PHQ-9 Depression Total Score: 8 09/04/20 20 1:10 PM APPLICATIONS COORDINATOR documented as of this encounter Care Teams Staff Physical Therapist Relationship Specialty Start Date End Date Elissa Barnes [address] [place] [address] PCP - General Physician Air Crew Supervisor 08/28/21 Dexter Sykes MD [facility] [address] [facility] [address] [place] [address] 09/15/16 Siva Hearn MD [facility] [address] [place] [address] [place] [address] Neurology 09/15/16 Radha Espinoza, RN Registered Nurse Neurology 12/15/16 Jacob Hernandez MD [address] [place] [address] Assigned Neuroscience Provider 07/27/20 Joanna Pulido MD [address] [place] [address] Assigned Cancer Care Provider 04/28/21 04/24/23 documented as of this encounter
--- OUTSIDE RECORDS SUMMARY | 2023-10-16 05:44 | XMS_ITS | Encounter Summary ---
Author Name Unknown Organization [facility] Address [address] [place] [address]. [place] [address] Care Team Providers Care Carpet Mechanic Name Role Phone Dexter Sykes MD Unavailable [phone] Siva Hearn MD Unavailable [phone] Radha Espinoza RN Unavailable Unavailable Jacob Hernandez MD Unavailable [phone] Elissa Barnes Primary Care Provider [phone] Reason for Visit * Reason Comments RECHECK Encounter Details Date Type Department Care Team (Latest Contact Info) Description 10/13/2023 1:30 PM SECRETARY BOOKKEEPER Virtual Visit [facility] [address] [address] Jacob Hernandez MD [address] [place] [address] 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 Her neuropathic symptoms have been present since 2007. She does not recall how it all started, but she recalls that she initially she developed numbness, paresthesias and shooting pains in both feet that by 2007 affected both legs below the knees. She is not sure how long it took to get from her toes to her knees. Between 2007 and 2015 those symptoms were stable. She could walk and drive without difficulty. 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 She recalls no balance problems or tremor. There was no numbness in her hands. Around 2010 or 2011 she was seen at [facility] for the neuropathy. She states there was nothing new about the neuropathy that prompted the [facility] visit, she just wanted an explanation for the old problem. Apparently a sural nerve biopsy was performed and it showed demyelination. She was given a course of IV steroids. It sounds as though she only got a 3 day course of solumedrol, which was not helpful. In May 2016 she fell walking down stairs. She fracture her left arm and dislocated toes on her left foot after the fall. A few days later she developed numbness in her entire arms and legs. Her balance deteriorated. She needed to use a walker to ambulatel. Most ofthe time she was in a wheelchair. She felt weak all over. A tremor developed in her hands. No dysarthria, dysphagia, or diplopia. She developed urinary incontinence, and needed to wear a diaper. Nodry eyes, but did notice dry mouth. No rashes. She developed edema in her lower limbs. In 12/19 NCS showed an unequivocal demyelinating polyneuropathy with multifocal CV slowing and CB. Her CSF protein and cell count were normal. Labs were quite notable for a very elevated VEGF and RF, as well as elevated ESR and CRP. Subsequent to that IL 6 was found to be elevated (). She was seen by Dr. Artis oncology. Work up including bone marrow biopsy and lymph node biopsy showed no evidence for malignancy. In 02/18 she started IVIg 2gm/kg loading and then 1 gm/kg q 3 weeks. After IVIg was started her strength improved (over about 6 months ladle car operator strength improved from low teens kg to mid 20's kg) and disability improved (over about 6 months I-RODS improved from 12 to mid 20's). She was experiencing end of cycle deterioration. In 07/21 she increased IVIg to 1 gm/kg q 2 weeks. IVIg resulted in clear improvements as reflected in both RODS and ladle car operator strength but severe residuals remained. In 10/22 solumedrol was added, but she received only a couple doses. It was stopped due to knee surgery, which occurred 11/16/17. In 01/20 the solumedrol course was repeated: 1 gm daily x 3 then 1 gm weekly x 4 then 1 gm q 2 weeks. She does not think solumedrol was helpful. Through this time she continued IVIG1 gm/kg q 2 weeks. In 01/21 she started rituximab 1 gm x 2 (2 weeks apart). She received another 1000 mg rituximab 04/22. In 05/23 IVIG was reduced to 1 gm/kg every 3 weeks and in 07/23 she went to q 4 weeks. In 07/23 she also received rituximab. In late 2018 she reported numbness and weakness in her hands and feet, and so in 10/24 IVIG increased to 1 gm/kg q 3 weeks. 02/21 IVIG increased to 1 gm/kg q2 weeks. There was no improvements after IVIG was increased, and so in 05/24 IVIG was suspended. Through 2020, 2021 and 2022 her neuropathy was stable. Interval history: I last saw her in clinic 04/14/23. Over the last 3-4 weeks she has had trouble eating. She reports eating very little. Hydration has been poor as well. She reports that she is both not hungry and that it is difficult to swallow. No abdominal pain. She has had diarrhea. No vomiting. Over the last month she thinks she has lost 10 pounds. As far as her neuropathy, she is still very impaired. She uses a walker for short distances and a wheelchair for longer distances. Hand function remains very compromised but about the same. She experiences numbness from the waist down throughout lower extremities and from the forearm down in the upper extremities. This is similar to her prior visits. Prior pertinent laboratory work-up: 10/21: ESR 45. Serum IF showed elevated IgG and IgA but no monoclonal protein. Normal SSa, SSb, B6, copper, zinc 12/19: VEGF 415. RF 89. ESR 71. CRP 19. Serum IF showed polyclonal increase in IgG and IgA, but no monoclonal protein. Negative GM1, Gd1b, TITUS, ANCA, anti neuronal ab, Neurofascin-155, Contactin 1, MAG 12/19: CSF RBC 2, WBC 0, Protein 25, glucose 52 12/19: IL6 19 (N<3.01). Urine kappa light chains slightly elevated, but no monoclonal protein on Urine IF. EBV and CMV elevated. 01/19: Very small monoclonal IgM immunoglobulin of lambda light chain type. 02/18: MAG negative 02/18: Bone marrow biopsy showed no evidence of malignancy. 02/18: Inguinal lymph node biopsy showed no evidence of lymphoma 07/21: Negative GM1, Hu, Ri, Yo, NF155, NF140, contactin 1 10/22: Serum ELP no monoclonal protein, elevated IgG and IgA. Elevated RF. VEGF 50. ESR 118, CRP 5. TTR negative. 04/21/18: VEGF 136 (N<86), RF 29 (N<20), IL6 15.8, (N<3.01), C4 14 (N15-50), C3 108 (N 76-169),CRP 3.5, ESR 69, serum IF showed no monoclonal protein. 06/22: VEGF 116 (N<86). CRP 8.6. 09/22: Normal B12 10/24: Serum IF showed no monoclonal protein 05/24: ESR 27. Serum IF showed no monoclonal protein. Normal CRP, IL6, VEGF (50). 05/24: genetic panel of 81 genes ([employer]) showed only one VUS in the IKBKAP gene. No pathogenic mutations. 03/26/21: VEGF 93 (N9-86). 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 IL6 13.6 (N<3.01). Normal RF and CRP. 08/25: Negative NF155, NF140, CNTN1, CASPR1 10/24/21: VEGF 72 05/13/22: CRP 6.51 (ref < 5), RF 25, VEGF 93, normal ESR, serum immunofixation 09/10/22: A1C 6.5 04/22/23: Serum IF showed trace IgM lambda. IgM quant 87. RF 56 (N<12.5). Prior pertinent radiology work-up: 10/21: MRI LS spine showed some degenerative changes. 12/19: Skeletal survey showed no definite evidence of lytic lesions in the visualized skeleton. There are mild degenerative changes of the thoracic and lumbar spine. 12/19: CT C/A/P showed hepatosplenomegaly without focal lesion. Multiple mildly prominent lymph nodes throughout the chest, abdomen and pelvis, including bilateral inguinal, periaortic/retroperitoneal, and mediastinal lymph nodes. 05/21: CT chest showed no significant interval change since prior exam. Borderline enlarged lymph nodes in the chest, axillas, retroperitoneum and pelvis are relatively stable. No significant increaseor decrease in size of these lymph nodes. Hepatosplenomegaly is relatively stable. Liver may be slig htly smaller in size compared to prior exam. 04/30/18: CT C/A/P showed no significant change in the lymphadenopathy with unchanged mild enlarged/prominent lymph nodes present in several areas. There is slightly increased hepatomegaly. Unchanged splenomegaly. 09/26/20: CT C/A/P showed slightly reduced in size liver compared to last exam. No change in maryse hepatis, retroperitoneal adenopathy, mediastinal/supraclavicular/axillary lymph nodes. New mild L3 compression fracture. There is a subtle hypodense sub centimeter lesions in the liver, possibly new 09/20/21: CT chest showed minimally more prominent left axillary lymph node. Otherwise no areas of new additional adenopathy identified. Previously described lymph nodes are stable at the chest and abdomen. New groundglass nodular opacity at the left lower lobe could be from an infectious, inflammatory, or neoplastic etiology. New tiny indeterminant nodule within the liver. Cirrhotic liver again suggested. Neoplasm cannot be excluded. Distended sigmoid colon that appears redundant, but not convincing for volvulus. Although this is increased in distention since 04/30/2018, this appears similar to the older CT from 12/22/2016. Interval development of compression defo rmities of T12 and L3. 10/11/21: MRI liver showed nodularity of the liver contour again suggests cirrhosis but no focal hepatic lesions are identified. There was mild splenomegaly and cholelithiasis and gallbladder distention. Prior electrophysiologic work-up: 11/06/20: NCS showed a severe multifocal polyneuropathy affecting the upper limbs as well as a right-sided median neuropathy at the wrist. Although the multifocal process is most likely demyelinating, the presence of Vito Miller anastomosis (normal anatomic variants) on both sides makes it challenging to know the extent to which pathologic conduction block is present in the ulnar nerves. Comparedto the prior study performed 12/03/2016 the right median nerve is clearly worse, but the other upper limb motor responses are essentially unchanged. The presence of marked distal latency prolongation in the median nerve indicates that the median nerve is preferentially affected at the wrist, as can be seen with in the clinical context of carpal tunnel syndrome. 12/19: NCS showed a severe demyelinating polyneuropathy affecting the upper limbs characterized by multifocal and variable degrees of conduction velocity slowing and conduction block. Sensory responses all absent in the arms and legs. CV slowing in the right ulnar nerve reached 28 m/s with CB. In the median nerves slowing was in upper 30's. 2009: NCS at [facility] showed an axonal polyneuropathy. Sural NR. Median and ulnar SNAP normal. Peronealmotor NR. Tibial small (reported as 0.0 mV?) with CV 20. Median and ulnar motor normal. Prior biopsy: 2010: Sural nerve biopsy at [facility] showed a definite neuropathy with decreased myelinated fiber density (mod to severe and diffuse), increased rate of axonal degeneration. There was an occasional individual endoneurial and frequent individual and two small collections of epineurial perivascular inflammatory cells. 02/18: Left inguinal lymph node biopsy showed benign lymphoid hyperplasia. There is no evidence of alymphoproliferative disorder, including lymphoma, IgG4 disease or Castleman's disease. No amyloid. 06/22: Left superficial peroneal nerve biopsy showed end-stage nerve without signs of inflammation or amyloid deposition. Past Medical History: HTN B12 deficiency Liver cirrhosis (alcohol) Neuropathy Past Surgical History: Sural nerve biopsy Right foot surgery NOS Family history: There is no known family history of hereditary neuropathies or other neuromuscular disorders. Social History: Has 1-2 glasses wine daily. She denies tobacco or illicit drug use. Medical Allergies: Allergies Allergen Reactions Aspirin Other reaction(s): Bleeding Clavulanic Acid Hydrocodone Other reaction(s): Tachycardia Heart races. Tolerates oxycodone OK. Other reaction(s): Tachycardia Liquid Adhesive Other reaction(s): Contact Dermatitis Reaction to steri-strips Naproxen Other reaction(s): *Unknown - Pt Doesn't Remember Nsaids Steri Strips Sulfamethoxazole-Trimethoprim Vicodin [Hydrocodone-Acetaminophen] Other reaction(s): Tachycardia heart races Amoxicillin-Pot Clavulanate Diarrhea Sulfamethoxazole-Trimethoprim Itching and Rash Current Medications: Current Outpatient Medications Medication acyclovir (ZOVIRAX) 800 MG tablet alendronate (FOSAMAX) 70 MG tablet calcitonin, salmon, (MIACALCIN) 200 UNIT/ACT nasal spray calcium carbonate-vitamin D (OSCAL W/D) 500-200 MG-UNIT tablet carboxymethylcellulose PF (REFRESH PLUS) 0.5 % ophthalmic solution cetirizine (ZYRTEC) 10 MG tablet Cholecalciferol (VITAMIN D3 PO) citalopram (CELEXA) 20 MG tablet clindamycin (CLEOCIN) 300 MG capsule Cyanocobalamin 1000 MCG/ML KIT furosemide (LASIX) 20 MG tablet gabapentin (NEURONTIN) 600 MG tablet glycerin (GLYCERIN, ADULT,) 2 g suppository hydrocortisone 2.5 % ointment levothyroxine (SYNTHROID/LEVOTHROID) 50 MCG tablet lidocaine (LIDODERM) 5 % patch metFORMIN (GLUCOPHAGE) 500 MG tablet mirabegron (MYRBETRIQ) 25 MG 24 hr tablet Multiple Vitamin (MULTI-VITAMINS) TABS nystatin (MYCOSTATIN) cream oxyBUTYnin ER (DITROPAN XL) 10 MG 24 hr tablet pantoprazole (PROTONIX) 40 MG EC tablet pramipexole (MIRAPEX) 0.5 MG tablet spironolactone (ALDACTONE) 50 MG tablet thiamine (B-1) 100 MG tablet traZODone (DESYREL) 100 MG tablet triamcinolone (KENALOG) 0.1 % external cream No current facility-administered medications for this visit. Review of Systems: A full review of systems was obtained and was negative except for what was notedabove. Physical examination: NAD. Mental status: Patient is alert, attentive, and oriented x 3. Language is coherent and fluent without aphasia. Memory, comprehension and ability to follow commands were intact. Neuropathy Assessments 10/13/2023 1:00 PM 04/14/2023 1:00 PM 10/14/2022 1:00 PM 05/13/2022 1:00 PM 11/05/2021 1:00 PM 08/06/2021 12:00 PM 03/26/2021 2:00 PM Neurology Assessments RODS CIDP/MGUSP Score 23 24 21 25 24 23 24 10/13/2023 1:00 PM 04/14/2023 1:00 PM 10/14/2022 1:00 PM 05/13/2022 1:00 PM 11/05/2021 1:00 PM 08/06/2021 12:00 PM 03/26/2021 2:00 PM Relationship Manager Strength: Right hand strength in Kg: virtual virtual 24 23 27 21 20 Left hand strength in Kg: virtual virtual 25 22 not tested (wrist splint) 26 27 10/13/2023 1:00 PM 04/14/2023 1:00 PM 05/13/2022 1:00 PM 11/05/2021 1:00 PM 03/26/2021 2:00 PM 11/06/2020 12:00 PM 09/04/2020 1:00 PM Immunotherapy Current treatment: none none none none none none None Assessment: Catyh Raymond is a 58 year old woman with suspected CIDP. Her neuropathy (although has severe residuals) is probably stable - but very challenging to adequately assess her complex neuropathy by tele visit. I would like her to come in for an in person assessment. Even more concern today is the unexplained weight loss. I asked her to reach out to her primary care team to evaluate this. If her nutrition is poor and she is losing weight then her neuropathy and overall function is likely to worsen. Plan: Weight loss: Advised her to connect with her primary care team for further work up 2. Immunotherapy: No indication for IVIG or other immunotherapy at this time. 3. Labs: At next visit will repeat VEGF, RF, ESR, CRP 4. IgM Lambda: Duration of neuropathy and relatively stability make amyloid and WM unlikely, but still a possibility. 5. For several reasons previously consider POEMS, although usually with IgG or IgA rather than IgM). Would consider POEMS unlikely at this point. Appreciate Dr. Pulido's evaluation. Most recent visit was 10/24/21. Plan to follow up as needed. 5. Diabetes: Diabetes did not cause her neuropathy or current residuals, but recently development of diabetes puts her at risk for worsening neuropathic symptoms independent of CIDP. Encouraged her to work with her PCP to optimize blood sugar conrol 6. Right CTS: S/P right carpal tunnel release 01/2021 7. Pain and paresthesias: Continue gabapentin 1200 mg TID 8. Liver cirrhosis: Advised alcohol abstinence. MRI liver dated 10/11/21 showed nodularity of the liver contour again suggests cirrhosis but no focal hepatic lesions are identified. There was mild splenomegaly and cholelithiasis and gallbladder distention. [facility] 9. Follow up in 2 months in person. --- ETARY BOOKKEEPER documented in this encounter Nursing Notes * Juan Bronson - 10/13/2023 1:30 PM CST Is the patient currently in the state of [place]? YES Visit mode:TELEPHONE If the visit is dropped, the patient can be reconnected by: TELEPHONE VISIT: Phone number: Telephone Information: Will anyone else be joining the visit? NO (If patient encounters technical issues they should call [phone] :[phone]) How would you like to obtain your AVS? MyChart Are changes needed to the allergy or medication list? No Reason for visit: RECHECK Medications and allergies have been reviewed. 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 [facility] [employer] [facility] 10/03/2019 09/14/2023 Assessment Noted Time PHQ-9 Depression Total Score: 3 10/13/19 24 1:11 PM SECRETARY BOOKKEEPER documented as of this encounter Care Teams Carpet Mechanic Relationship Specialty Start Date End Date Elissa Barnes [address] [place] [address] PCP - General Physician Rubber Grinder 08/28/21 Dexter Sykes MD [facility] [address] [address] 09/15/16 Siva Hearn MD [facility] [address] [address] Neurology 09/15/16 Radha Espinoza, GEOFF Registered Nurse Neurology 12/15/16 Jacob Hernandez MD [address] [place] [address] Assigned Neuroscience Provider 07/27/20 documented as of this encounter
--- OUTSIDE RECORDS SUMMARY | 2023-10-16 05:44 | XMS_ITS | Encounter Summary ---
Author Name Unknown Organization [place] Address [address] [place] [address]. [place] [address] Care Team Providers Care Pigeon Fancier Name Role Phone Dexter Sykes MD Unavailable [phone] Siva Hearn MD Unavailable [phone] Radha Espinoza RN Unavailable Unavailable Jacob Hernandez MD Unavailable [phone] Joanna Pulido MD Unavailable [phone] Elissa Barnes Primary Care Provider [phone] Reason for Visit * Reason Comments Follow Up Encounter Details Date Type Department Care Team (Latest Contact Info) Description 04/14/2023 1:00 PM CDT [facility] Visit [facility] [address] [address] Jacob Hernandez MD [address] [place] [address] CIDP (chronic inflammatory demyelinating polyneuropathy) (H) [...] on file documented as of this encounter Progress Notes * Jacob Hernandez MD - 04/14/2023 1:00 PM CDT Tiny is a 57 year old who is being evaluated via a billable telephone visit. What phone number would you like to be contacted at? [phone] How would you like to obtain your AVS? MyChart Distant Location (provider location): On-site Call duration: 18 MINUTES See my separate note from today's date for documentation of the virtual visit. Jacob Hernandez MD Department of Neurology * Jacob Hernandez MD - 04/14/2023 1:00 PM CDT Neuropathy history: Cathy Raymond is a 57 year old woman with CIDP associated with [...] and drive without difficulty. 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 She recalls no balance problems or tremor. There was no numbness in her hands. Around 2010 or 2011 she was seen at [facility] for the neuropathy. She states there was nothing new about the neuropathy that prompted the [facility] visit, she just wanted an explanation for [...] her strength improved (over about 6 months student activities director strength improved from low teens kg to mid 20's kg) and disability improved (over about 6 months I-RODS improved from 12 to mid 20's). She was experiencing end of cycle deterioration. In 07/21 she increased IVIg to 1 gm/kg q 2 weeks. IVIg resulted in clear improvements as reflected in both RODS and student activities director strength but severe residuals remained. In 10/22 [...] was suspended. Through 2020, 2021 and 2022 she was stable. Interval history: I last saw her in clinic 10/14/22. Since then she continues to report difficulty with upper and lower limbs function. As far as her gait, she uses a walker inside and a scooter or wheelchair outside. She has not been walking as much as she usually does. When she walks she likes to have someone near her, and her recently injured his leg and is not available for that purpose. Hand function remains poor. She still struggles especially with fine finger activities. She continues to perform physical therapy exercises at home. Numbnes sin her limbs remains severe. She experiences numbness from the waist down throughout lower extremities and from the forearm down in the upper extremities, unchanged from prior. Prior pertinent laboratory work-up: 10/21: ESR 45. [...] (50). 05/24: genetic panel of 81 genes ([employer]) showed only one VUS in the IKBKAP gene. No pathogenic mutations. 03/26/21: VEGF 93 (N9-86). 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 IL6 13.6 (N<3.01). Normal RF and CRP. 08/25: Negative NF155, NF140, CNTN1, CASPR1 10/24/21: VEGF 72 05/13/22: CRP 6.51 (ref < 5), RF 25, VEGF 93, normal ESR, serum immunofixation 09/10/22: A1C 6.5 Prior pertinent radiology work-up: 10/21: MRI LS [...] was in upper 30's. 2009: NCS at [facility] showed an axonal polyneuropathy. Sural NR. Median and ulnar SNAP normal. Peronealmotor NR. Tibial small (reported as 0.0 mV?) with CV 20. Median and ulnar motor normal. Prior biopsy: 2010: Sural nerve biopsy at [facility] showed a definite neuropathy with decreased myelinated [...] Rash Current Medications: Current Outpatient Medications Medication acetaminophen (TYLENOL) 500 MG tablet acyclovir (ZOVIRAX) 800 MG tablet alendronate (FOSAMAX) 70 MG tablet calcitonin, salmon, (MIACALCIN) 200 UNIT/ACT nasal spray calcium carbonate-vitamin D (OSCAL W/D) 500-200 MG-UNIT tablet carboxymethylcellulose PF (REFRESH PLUS) 0.5 % ophthalmic solution Cholecalciferol (VITAMIN D3 PO) ciprofloxacin-dexamethasone (CIPRODEX) 0.3-0.1 % otic suspension citalopram (CELEXA) 10 MG tablet citalopram (CELEXA) 20 MG tablet citalopram (CELEXA) 20 MG tablet Cyanocobalamin 1000 MCG/ML KIT cyclobenzaprine (FLEXERIL) 10 MG tablet furosemide (LASIX) 20 MG tablet GABAPENTIN PO LEVOTHYROXINE SODIUM PO metFORMIN (GLUCOPHAGE) 500 MG tablet Multiple Vitamin (MULTI-VITAMINS) TABS nystatin (MYCOSTATIN) cream OXYBUTYNIN CHLORIDE PO pantoprazole (PROTONIX) 40 MG EC tablet PRAMIPEXOLE DIHYDROCHLORIDE PO senna-docusate (SENOKOT-S/PERICOLACE) 8.6-50 MG tablet spironolactone (ALDACTONE) 50 MG tablet THIAMINE HCL PO TRAZODONE HCL PO triamcinolone (KENALOG) 0.1 % external cream AMLODIPINE BESYLATE PO celecoxib (CELEBREX) 200 MG capsule diazepam (VALIUM) 5 MG tablet mirabegron (MYRBETRIQ) 25 MG 24 hr tablet potassium chloride (KLOR-CON) 20 MEQ Packet No current facility-administered medications for this visit. Review of Systems: A full review of systems was obtained and was negative except for what was notedabove. Physical examination: NAD. Mental status: Patient is alert, attentive, and oriented x 3. Language is coherent and fluent without aphasia. Memory, comprehension and ability to follow commands were intact. Supervisor Color Making strength: 01/12/17: Right 16 kg. Left 16 kg. 02/09/17: Right 13 kg. Left 10 kg 02/18: IVIg started 1 gm/kg q 3 weeks 04/01/17: Right 20 kg. Left 20 kg 07/08/17: Right 25 kg. Left 21 kg 07/21: IVIg increased to 1 gm/kg q 2 weeks 10/21/17: Right 28 kg. Left 22 kg 01/20/18: Right 27 kg, Left 24 kg 08/06/2012: Right 26, Left 21 RODS: 02/03/17: 12 out of 48 02/18: IVIg started 1 gm/kg q 3 weeks 04/01/17: 18 out of 48 07/08/17: 15 out of 48 07/21: IVIg increased to 1 gm/kg q 2 weeks 10/21/17: 25 out of 48 01/20/18: 29 out of 48 Neuropathy Assessments 04/14/2023 1:00 PM 10/14/2022 1:00 PM 05/13/2022 1:00 PM 11/05/2021 1:00 PM 08/06/2021 12:00 PM 03/26/2021 2:00 PM 11/06/2020 12:00 PM Neurology Assessments RODS CIDP/MGUSP Score 24 21 25 24 23 24 22 04/14/2023 1:00 PM 10/14/2022 1:00 PM 05/13/2022 1:00 PM 11/05/2021 1:00 PM 08/06/2021 12:00 PM 03/26/2021 2:00 PM 11/06/2020 12:00 PM Supervisor Color Making Strength: Right hand strength in Kg: virtual 24 23 27 21 20 20 Left hand strength in Kg: virtual 25 22 not tested (wrist splint) 26 27 24 04/14/2023 1:00 PM 05/13/2022 1:00 PM 11/05/2021 1:00 PM 03/26/2021 2:00 PM 11/06/2020 12:00 PM 09/04/2020 1:00 PM 05/08/2020 1:00 PM Immunotherapy Time since last IVIG (days): 2 weeks Current treatment: none none none none none None IVIG 95 gm q 2 weeks Assessment: Cathy Raymond is a 57 year old woman with suspected CIDP. Although she reports some subjective fluctuations in her symptoms, on clinical grounds I suspect that she remains in remission. I will check afew inflammatory markers to explore this more (these have been elevated in the past). Unfortunatelyher severe residual deficits are likely irreversible at this point. Will continue neuropathy surveillance. Management at this time remains supportive. Plan: 1. Immunotherapy: No indication for IVIG or other immunotherapy at this time. 2. Labs: VEGF, serum IF, RF, ESR, CRP (will send to [facility]) 3. Query POEMS: Unlikely at this point, appreciate Dr. Pulido's evaluation. Most recent visit was 10/24/21. Plan to follow up as needed. 4. Diabetes: Diabetes did not cause her neuropathy or current residuals, but recently development of diabetes puts her at risk for worsening neuropathic symptoms independent of CIDP. Encouraged her to work with her PCP to optimize blood sugar conrol 5. Right CTS: S/P right carpal tunnel release 01/2021 6. Gait instability: Repeat physical therapy. Referral provided. 7. Pain and paresthesias: Continue gabapentin 1200 mg TID 8. Liver cirrhosis: Advised alcohol abstinence. MRI liver dated 10/11/21 showed nodularity of the liver contour again suggests cirrhosis but no focal hepatic lesions are identified. There was mild splenomegaly and cholelithiasis and gallbladder distention. [facility]. 9. Follow up in 4-6 months. Sooner if needed. 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 IgM quant 87. RF 56 (N<12.5). documented in this encounter Plan of Treatment Scheduled Orders Name Type Priority Associated Diagnoses Orde r Schedule Protein electrophoresis Lab Panel Routine CIDP (chronic inflammatory demyelinating polyneuropathy) (H) Expected: 04/14/2023 (Approximate), Expires: 04/14/2024 Protein Immunofixation Serum Lab Routine CIDP (chronic inflammatory demyelinating polyneuropathy) (H) Expected: 04/14/2023 (Approximate), Expires: 04/14/2024 Vascular Endothelial Growth Factor Lab Routine CIDP (chronic inflammatory demyelinating polyneuropathy) (H) Expected: 04/14/2023 (Approximate), Expires: 04/14/2024 Rheumatoid factor Lab Routine CIDP (chronic inflammatory demyelinating polyneuropathy) (H) Expected: 04/14/2023 (Approximate), Expires: 04/14/2024 Erythrocyte sedimentation rate auto Lab Routine CIDP (chronic inflammatory demyelinating polyneuropathy) (H) Expected: 04/14/2023 (Approximate), Expires: 04/14/2024 CRP inflammation Lab Routine CIDP (chronic inflammatory demyelinating polyneuropathy) (H) Expected: 04/14/2023 (Approximate), Expires: 04/14/2024 documented as of this encounter Visit Diagnoses Diagnosis CIDP (chronic inflammatory demyelinating polyneuropathy) (H)- Primary Chronic inflammatory demyelinating polyneuritis documented in this encounter Additional Health Concerns Assessment Noted Time PHQ-9 Depression Total Score: 8 09/04/20 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 documented as of this encounter Care Teams Pigeon Fancier Relationship Specialty Start Date End Date Elissa Barnes [address] [place] [address] PCP - General Physician Shiatsu Therapist 08/28/21 Dexter Sykes MD [facility] [address] [address] 09/15/16 Siva Hearn MD [facility] [address] [address] Neurology 09/15/16 Radha Espinoza, RN Registered Nurse Neurology 12/15/16 Jacob Hernandez MD [address] [place] [address] Assigned Neuroscience Provider 07/27/20 Joanna Pulido MD [address] [place] [address] Assigned Cancer Care Provider 04/28/21 04/24/23 documented as of this encounter
--- OUTSIDE RECORDS SUMMARY | 2023-10-16 05:44 | XMS_ITS | Clinical Summary ---
Author Name Unknown Organization [place] Address [address] [place] [address]. [place] [address] Care Team Providers Care Secretary To The Vice President Name Role Phone Dexter Sykes MD Unavailable [phone] Siva Hearn MD Unavailable [phone] Radha Espinoza RN Unavailable Unavailable Jacob Hernandez MD Unavailable [phone] Elissa Barnes Primary Care Provider [phone] Allergies Active Allergy Reactions Criticality Noted Date [...] calcitonin, salmon, (MIACALCIN) 200 UNIT/ACT nasal spray Strawberry 1 spray into one nostril alternating nostrils [...] original. Patient to receive IVIg infusions at [facility]: [phone] (T) [phone] (F) Problem Noted Date Diagnosed Date Trigger middle finger of right hand 12/07/2020 Overview: Added automatically from request for surgery [id number] Carpal tunnel syndrome of right wrist 12/07/2020 Overview: Added automatically from request for surgery [id number] UTI (urinary tract infection) 11/17/2017 IgM lambda [...] 02/28/2010 Lumbar radiculopathy 02/28/2010 Atopic rhinitis 03/31/2007 Encounters Date Type Department Care Team Description 4 1:30 PM FITNESS STUDIES TEACHER [facility] [address] [facility] [address] [place] [address] Jacob Hernandez MD CIDP (chronic inflammatory demyelinating polyneuropathy) (H) (Primary Dx) 3 10:47 AM FITNESS STUDIES TEACHER Anesthesia Event [facility] [address] [place] [address] Solitario Hernandez MD Marinello, Abby Rose, SYSTEMS PROGRAM MANAGER COMMUNITY MENTAL HEALTH WORKER 3 10:00 AM FITNESS STUDIES TEACHER - 3 10:30 AM FITNESS STUDIES TEACHER Surgery [facility] [address] [place] [address] Dorothy Anderson MD Esophagogastroduodenoscopy with biopsies 3 7:38 AM FITNESS STUDIES TEACHER - 3 11:56 AM FITNESS STUDIES TEACHER Hospital Encounter [facility] PreOP/PostOP [address] [place] [address] Dorothy Anderson MD Discharge Disposition: Home or Self Care 3 Travel from Last 3 Months Immunizations Name Administration Dates Next Due Flu, Unspecified 07/08/2019, 7,07/09/2016,2011,06/18/2011,08/05/2007,08/14/2006,1 ,09/06/2004,08/08/2003 [id number] Novel Flu 08/14/2009 Influenza (H1N1) 08/14/2009 Influenza (IIV3) PF 07/09/2021, 3,06/18/2011,2006,08/14/2006,07/29/2005,09/06/2004,1 10/08/2002 Influenza (intradermal) 06/14/2012 Influenza Vaccine >6 months,quad, PF 07/2020,07/08/2019,07/08/2017,2015 Influenza Vaccine, 6+MO IM (QUADRIVALENT W/PRESERVATIVES) 07/14/2020,07/08/2017 Influenza, seasonal, injectable, PF 07/07/2018 Pneumo Conj 13-V (2010&after) 10/06/2018 Pneumococcal 23 valent 04/02/2017 TD,PF 7+ (Tenivac) 03/25/2004,11/11/1994 TDAP Vaccine (Adacel) 09/06/2012 Td (Adult), Adsorbed 03/25/2004,11/11/1994 Zoster recombinant adjuvante d (SHINGRIX) 07/09/2021 Family History Medical History Relation Comments Hyperlipidemia Father Hypertension Father Pancreatic Cancer Mother Breast Cancer Sister Colon Cancer No family hx of Relation Status Comments Father Mother Sister Social History Tobacco Use Types Packs/Day Years [...] Comments Blood Pressure 122/85 09/14/2023 11:30 AM FITNESS STUDIES TEACHER Pulse 92 09/14/2023 11:22 AM FITNESS STUDIES TEACHER Temperature 36.4 ??C (97.6 ??F) 09/14/2023 11:[address] Respiratory Rate 14 09/14/2023 11:14 AM FITNESS STUDIES TEACHER Oxygen Saturation 98% 09/14/2023 11:30 AM FITNESS STUDIES TEACHER Inhaled Oxygen Concentration - - Weight 87.1 kg (192 lb) 09/14/2023 8:17 AM FITNESS STUDIES TEACHER Height 172.7 cm (5' 8) 10/13/2023 1:08 PM FITNESS STUDIES TEACHER Body Mass Index 29.19 09/14/2023 8:17 AM FITNESS STUDIES TEACHER Plan of Treatment Health Maintenance Due Date Last Done Comments ADVANCE CARE PLANNING 1964 ANNUAL REVIEW OF HM ORDERS 1964 CT COLONOGRAPHY 1964 FIT 1964 FLEX SIG 1964 sDNA (Cologuard) 1964 HEPATITIS A IMMUNIZATION (1 of 2 - Risk 2-dose series) 1983 PAP 1985 HEPATITIS B IMMUNIZATION (3 of 3 - 19+ 3-dose series) 07/08/2000 05/13/2000, 08/16/1999 LIPID 2009 TSH W/FREE T4 REFLEX 01/19/2018 01/19/2017 MAMMO SCREENING 04/23/2023 04/23/2021, 03/06, 03/29/2019, Additional history exists COVID-19 Vaccine ( season) 2023 09/04/2022, 03/17/2022, 09/09/2021, Additional history exists MEDICARE ANNUAL WELLNESS VISIT 09/11/2024 09/11/2023, 09/10/2022, 09/09/2021, Additional history exists COLONOSCOPY 07/25/2031 07/25/2021, 07/06, 10/04/2020 COLORECTAL CANCER SCREENING 07/25/2031 DTAP/TDAP/TD IMMUNIZATION (3 - Td or Tdap) 09/02/2032 09/02/2022, 09/06/2012, 03/25/2004, Additional history exists HIV SCREENING Completed 12/17/2016 HEPATITIS C SCREENING Completed 01/23/2017 Pneumococcal Vaccine: Pediatrics (0 to 5 Years) and At-Risk Patients (6 to 64 Years) Aged Out 10/06/2018, 04/02/2017 No longer eligibl e based on patient's age to complete this topic ZOSTER IMMUNIZATION Completed 09/07/2021, INFLUENZA VACCINE Completed 06/29/2023, , 07/09/2021, Additional history exists PHQ-2 (once per calendar year) Completed 10/13/2023, 10/13/2023, 10/14/2022, Additional history exists HPV IMMUNIZATION Aged Out No longer e ligible based on patient's age to complete this topic IPV IMMUNIZATION Aged Out No longer e ligible based on patient's age to complete this topic MENINGITIS IMMUNIZATION Aged Out No l onger eligible based on patient's age to complete this topic RSV MONOCLONAL ANTIBODY Aged Out No l onger eligible based on patient's age to complete this topic Procedures Procedure Name Priority Date/Time Associated Diagnosis Comments GLUCOSE BY METER Routine 09/14/2023 11:2 7 AM FITNESS STUDIES TEACHER SURGICAL PATHOLOGY EXAM Routine 09/14/2023 11:02 AM FITNESS STUDIES TEACHER ESOPHAGOGASTRODUO DENOSCOPY, WITH BIOPSY 09/14/2023 10:44 AM FITNESS STUDIES TEACHER Esophageal dysphagia Special Needs Patient in wheelchair. Can stand and pivot to bed 2 leg braces UPPER GI ENDOSCOPY Routine 09/14/2023 10:43 AM FITNESS STUDIES TEACHER from Last 3 Months Results * Glucose by meter (09/14/2023 11:27 AM FITNESS STUDIES TEACHER) GLUCOSE BY METER POCT 97 70 - 99 mg/dL 09/14/2023 11:34 AM FITNESS STUDIES TEACHER LABORATORY POC Blood, Capillary BLOOD SPECIMEN / Unknown 09/14/2023 11:27 AM FITNESS STUDIES TEACHER 09/14/2023 11:34 AM FITNESS STUDIES TEACHER Dorothy Anderson MD [facility] Acute Care Lab [address] [facility] (1st floor, no room number) [place] [address], [facility] [phone] * Surgical Pathology Exam (09/14/2023 11:02 AM FITNESS STUDIES TEACHER) Case Report Surgical Pathology Report ? Case: [id number] ? Authorizing Provider: ??Dorothy Anderson MD ?Collected: ? 09/14/2023 11:02 AM ? Ordering Location: ? [facility] ?? Received: ?09/14/2023 11:12 AM ? Main OR ? Pathologist: ? Sharon Henning, ? MD ? Specimens: ?? A) - Esophagus, Distal, Distal esophagus biopsies ? B) - Esophagus, Mid, Mid esophagus biopsies ? 09/17/2023 3:20 PM FITNESS STUDIES TEACHER LABORATORY Final Diagnosis A: Esophagus, distal, biopsies: -Squamous mucosa with basal layer hyperplasia and scant chronic inflammation without eosinophils, features suggest reflux-like change -Special stain for fungal organisms performed and negative B: Esophagus, mid, biopsies: -Squamous mucosa with basal layer hyperplasia and scant chronic inflammation without eosinophils; features suggest reflux-like change -Special stain for fungal organisms performed and negative 09/17/2023 3:20 PM [facility] Clinical Information Procedure: ESOPHAGOGASTRODU [...] examined jejunum was normal. 09/17/2023 3:20 PM [facility] Gross Description A(1). Esophagus, [...] one cassette. (RAYMON Navarro) 09/17/2023 3:20 PM [facility] Microscopic Description A, B. A formal microscopic examination has been performed. Special stains for fungal organisms were done on both biopsy samples with appropriately staining control tissues reviewed concurrently. The findings in the patient sample substantiates the final diagnoses 09/17/2023 3:20 PM [facility] Performing Labs The technical component of this testing was completed at [facility] 09/17/2023 3:20 PM [facility] Case Images 09/17/2023 3:20 PM [facility] Biopsy STRUCTURE OF LOWER THIRD OF ESOPHAGUS / Unknown 09/14/2023 11:02 AM FITNESS STUDIES TEACHER 09/14/2023 11:12 AM FITNESS STUDIES TEACHER Specimen from unspecified body site obtained by biopsy (specimen) STRUCTURE OF MIDDLE THIRD OF ESOPHAGUS / Unknown 09/14/2023 11:03 AM FITNESS STUDIES TEACHER 09/14/2023 11:12 AM FITNESS STUDIES TEACHER Dorothy VALLECILLO - IDALMIS [facility] Organization Address City/State/ZIP Co de Phone Number [facility] Acute Care Lab 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 09/14/2023 10:43:42 AM Total Procedure Duration: 0 hours 6 minutes 20 seconds Estimated Blood Loss: ? 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 Source: [facility]. 10/03/2019 09/14/2023 Advance Directives For more information, please contact: [phone] Latest Code Status on File Code Status Date Activated Date Inactivated Comments Full Code 02/04/2017 8:21 AM 12/06/2018 8:11 AM Care Teams Secretary To The Vice President Relationship Specialty Start Date End Date Elissa Barnes [address] [place] [address] PCP - General Physician Coal Sampler 08/28/21 Dexter Sykes MD [facility] NEUROLOGY [address] [place] [address] 09/15/16 Siva Hearn MD [facility] NEUROLOG[facility] [address] [place] [address] Neurology 09/15/16 Radha Espinoza, GEOFF Registered Nurse Neurology 12/15/16 Jacob Hernandez MD [address] [place] [address] Assigned Neuroscience Provider 07/27/20
--- OUTSIDE RECORDS SUMMARY | 2023-10-16 05:44 | XMS_ITS | Encounter Summary ---
Author Name Unknown Organization [facility] Address [address] [place] [address]. [place] [address] Care Team Providers Care Delivery Person Name Role Phone Dexter Sykes MD Unavailable [phone] Siva Hearn MD Unavailable [phone] Radha Espinoza RN Unavailable Unavailable Jacob Hernandez MD Unavailable [phone] Joanna Pulido MD Unavailable [phone] Elissa Barnes Primary Care Provider [phone] Encounter Details Date Type Department Care Team (Latest Contact Info) Description 01/08/2023 Travel Social History Tobacco Use Types Packs/Day [...] AM CDT documented as of this encounter Plan of Treatment Not on file documented as of this encounter Visit Diagnoses Not on filedocumented in this encounter Additional Health Concerns Assessment Noted Time PHQ-9 Depression Total Score: 8 09/04/20 20 1:10 PM ENAMEL DIPPER documented as of this encounter Care Teams Delivery Person Relationship Specialty Start Date End Date Elissa Barnes [address] [place] [address] PCP - General Physician Heel Scorer 08/28/21 Dexter Sykes MD [facility] [address] [facility] [address] [place] [address] 09/15/16 Siva Hearn MD [facility] NEUROLOG[facility] [address] [address] Neurology 09/15/16 Radha Espinoza, GEOFF Registered Nurse Neurology 12/15/16 Jacob Hernandez MD [address] [place] [address] Assigned Neuroscience Provider 07/27/20 Joanna Pulido MD [address] [place] [address] Assigned Cancer Care Provider 04/28/21 04/24/23 documented as of this encounter
--- OUTSIDE RECORDS SUMMARY | 2023-10-16 05:44 | XMS_ITS | Encounter Summary ---
Author Name Unknown Organization [facility] Address [address] [place] [address]. [place] [address] Care Team Providers Care Sleeve Setter Lockstitch Name Role Phone Dexter Sykes MD Unavailable [phone] Siva Hearn MD Unavailable [phone] Radha Espinoza RN Unavailable Unavailable Jacob Hernandez MD Unavailable [phone] Elissa Barnes Primary Care Provider [phone] Reason for Visit * Auth/Cert (Routine) Specialty Diagnoses / Procedures Referred By Yulissa wayne Referred To Contact Surgery Diagnoses Esophageal dysphagia Esophageal dysphagia [R13.19] Procedures WA UGI ENDOSCOPY DIAG W OR W/O BRUSH/WASH ESOPHAGOGASTRODUODENOSCOPY Periop Services [address] [place] [address] Referral ID Status Reason Start Date Expiration Date Visits Re quested Visits Authorized [id number] 1 1 Encounter Details Date Type Department Care Team (Late st Contact Info) Description 09/14/2023 10:00 AM LEAD PHARMACY TECHNICIAN - 09/14/2023 10:30 AM [facility] PeriOp Services [address] [place] [address] Dorothy Fontenot MD [facility] [place] [address] [facility] [place] [address] Esophagogastroduodenoscopy with biopsies Surgery Details Date/Time Status Location OR Service Patient Class Case Class Case Type Trauma Case? 09/14/23 10:00 AM Posted RH OR OR 05 Gastroenterology Same Day Surgery Elective Panel 1 Procedure LRB Anes Op Region Wound Class Comments Esophagogastroduodenoscopy w ith biopsies N/A MAC Mouth II-Clean Contaminated Surgeon Surgeon Role Service Panel Link, Dorothy Bishop MD Primary Gastroenterology 1 Special Needs Patient in wheelchair. Can stand and pivot to bed 2 leg braces documented in this encounter Social History Tobacco [...] Sign Reading Time Taken Comments Blood Pressure 124/87 09/14/2023 8:17 AM LEAD PHARMACY TECHNICIAN Pulse 84 09/14/2023 8:17 AM LEAD PHARMACY TECHNICIAN Temperature 36.3 ??C (97.4 ??F) 09/14/2023 8:17 AM CS T Respiratory Rate 16 09/14/2023 8:17 AM LEAD PHARMACY TECHNICIAN Oxygen Saturation - - Inhaled Oxygen Concentration - - Weight 87.1 kg (192 lb) 09/14/2023 8:17 AM LEAD PHARMACY TECHNICIAN Height 172.7 cm (5' 8) 09/14/2023 8:17 AM LEAD PHARMACY TECHNICIAN Body Mass Index 29.19 09/14/2023 8:17 AM LEAD PHARMACY TECHNICIAN documented in this encounter Discharge Instructions * Discharge Instructions* Suyapa Durand RN - 09/14/2023 11:18 AM LEAD PHARMACY TECHNICIAN SEDATION ADULT DISCHARGE INSTRUCTIONS SPECIAL PRECAUTIONS FOR [...] ABLE TO URINATE (PASS WATER). DR. DOROTHY FONTENOT M.D. CLINIC PHONE NUMBER: [phone] PHARMACY TECHNICIAN * Attachments The following attachments cannot be sent through Care Everywhere. 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 ([place]) documented in this encounter Medications at Time of Discharge Medication Sig Dispensed Refills Start Date End Date acyclovir (ZOVIRAX) 800 MG tablet Take 800 mg by mouth as needed 0 alendronate (FOSAMAX) 70 MG tablet Take 70 mg by mouth every 7 days 0 calcitonin, salmon, (MIACALCIN) 200 UNIT/ACT nasal spray [place] 1 spray into one nostril alternating nostrils [...] Notes * Pharmacy-Admission Medication History - Abdiaziz Kirk [facility] - 09/12/2023 1:42 PM CST Medication history and patient interview completed by pre-admitting nurse. Reviewed by pharmacist. No further clarifications needed. Abdiaziz Kirk [facility] Status Changed by Time of change Nurse Arthur Rodriguez RN ThuSep 11, 2023 11:35 AM Prior to Admission medications Medication Sig Last Dose Taking? Auth Provider Sign Language Interpreter End Date acyclovir (ZOVIRAX) 800 MG tablet Take 800 mg by mouth as needed Yes Reported, Patient Yes alendronate (FOSAMAX) 70 MG tablet Take 70 mg by mouth every 7 days Yes Reported, Patient Yes calcitonin, salmon, (MIACALCIN) 200 UNIT/ACT nasal spray [place] 1 spray into one nostril alternatingnostrils daily [...] times daily As needed Yes Reported, Patient PHARMACY TECHNICIAN documented in this encounter Plan of Treatment Not on file documented as of this encounter Procedures Procedure Name Priority Date/Time Associated Diagnosis Comments GLUCOSE BY METER Routine 09/14/2023 11:2 7 AM LEAD PHARMACY TECHNICIAN SURGICAL PATHOLOGY EXAM Routine 09/14/2023 11:02 AM LEAD PHARMACY TECHNICIAN ESOPHAGOGASTRODUO DENOSCOPY, WITH BIOPSY 09/14/2023 10:44 AM LEAD PHARMACY TECHNICIAN Esophageal dysphagia Special Needs Patient in wheelchair. Can stand and pivot to bed 2 leg braces UPPER GI ENDOSCOPY Routine 09/14/2023 10:43 AM LEAD PHARMACY TECHNICIAN documented in this encounter Results * Glucose by meter (09/14/2023 11:27 AM LEAD PHARMACY TECHNICIAN) GLUCOSE BY METER POCT 97 70 - 99 mg/dL 09/14/2023 11:34 AM LEAD PHARMACY TECHNICIAN LABORATORY POC Blood, Capillary BLOOD SPECIMEN / Unknown 09/14/2023 11:27 AM LEAD PHARMACY TECHNICIAN 09/14/2023 11:34 AM LEAD PHARMACY TECHNICIAN Dorothy Fontenot MD [facility] POCT LABORATORY [facility] Acute Care Lab [address] [facility] Lab (1st floor, no room number) [place] [address], [facility] [phone] * Surgical Pathology Exam (09/14/2023 11:02 AM LEAD PHARMACY TECHNICIAN) Case Report Surgical Pathology Report ? Case: [id number] ? Authorizing Provider: ??Dorothy Fontenot MD ?Collected: ? 09/14/2023 11:02 AM ? Ordering Location: ? [facility] ?? Received: ?09/14/2023 11:12 AM ? Main OR ? Pathologist: ? Sharon Henning, ? MD ? Specimens: ?? A) - Esophagus, Distal, Distal esophagus biopsies ? B) - Esophagus, Mid, Mid esophagus biopsies ? 09/17/2023 3:20 PM [facility] Final Diagnosis A: Esophagus, distal, biopsies: -Squamous mucosa with basal layer hyperplasia and scant chronic inflammation without eosinophils, features suggest reflux-like change -Special stain for fungal organisms performed and negative B: Esophagus, mid, biopsies: -Squamous mucosa with basal layer hyperplasia and scant chronic inflammation without eosinophils; features suggest reflux-like change -Special stain for fungal organisms performed and negative 09/17/2023 3:20 PM [facility] Clinical Information Procedure: ESOPHAGOGASTRODU ODENOSCOPY Pre-op [...] examined jejunum was normal. 09/17/2023 3:20 PM [facility] Gross Description A(1). Esophagus, Distal, Distal [...] one cassette. (RAYMON Navarro) 09/17/2023 3:20 PM [facility] Microscopic Description A, B. A formal microscopic examination has been performed. Special stains for fungal organisms were done on both biopsy samples with appropriately staining control tissues reviewed concurrently. The findings in the patient sample substantiates the final diagnoses 09/17/2023 3:20 PM [facility] Performing Labs The technical component of this testing was completed at [facility] 09/17/2023 3:20 PM [facility] Case Images 09/17/2023 3:20 PM [facility] Biopsy STRUCTURE OF LOWER THIRD OF ESOPHAGUS / Unknown 09/14/2023 11:02 AM LEAD PHARMACY TECHNICIAN 09/14/2023 11:12 AM LEAD PHARMACY TECHNICIAN Specimen from unspecified body site obtained by biopsy (specimen) STRUCTURE OF MIDDLE THIRD OF ESOPHAGUS / Unknown 09/14/2023 11:03 AM LEAD PHARMACY TECHNICIAN 09/14/2023 11:12 AM LEAD PHARMACY TECHNICIAN Dorothy VALLECILLO - IDALMIS [facility] Organization Address City/State/ZIP Co de Phone Number LABORATORY [facility] Acute Care Lab [address] 1st floor, Room [address]B [place] [address], [place] [phone] LABORATORY [facility] [address] [facility] ([facility], no room number) [place] [address], [place] [phone] * UPPER GI ENDOSCOPY (09/14/2023 10:43 AM LEAD PHARMACY TECHNICIAN) [facility] Upper GI Endoscopy [facility] Patient Name: Cathy Corral Segundo ? Procedure Date: 09/14/2023 10:43 AM ? [...] Model # [id number]-H190, [place] # ?[id number], SN #[id number] was introduced through the mouth, ?and advanced [...] entire viewing portion of the exam. DOROTHY FNOTENOT MD Number of Addenda: 0 Note Initiated On: 09/14/2023 10:43 AM MRN: ?[id number] Procedure Date: ? 09/14/2023 10:43:42 AM Total Procedure Duration: 0 hours 6 minutes 20 seconds Estimated Blood Loss: ? Scope In: 10:58:06 AM Scope Out: 11:04:26 AM RADIOLOGY RESULTS 09/14/2023 10:4 3 AM LEAD PHARMACY TECHNICIAN Dorothy Fontenot MD PROCEDURES RADIOLOGY RESULTS documented in this encounter Visit Diagnoses Diagnosis Esophageal dysphagia Dysphagia, pharyngoesophageal phase documented in this encounter Administered Medications Inactive Administered [...] Recently Administered Medications Times are shown in LEAD PHARMACY TECHNICIAN. Scheduled Medication Order 09/12/2023 09/13/2023 09/14/2023 sodium [...] 6 HOURS PRN, nausea, vomiting, Starting on 09/14/23 at 1141, This is Step 2 of nausea and vomiting management. If nausea not resolved in 15- 30 minutes, Notify provider. 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 Source: [employer] [facility]. 10/03/2019 09/14/2023 Assessment Noted Time PHQ-9 Depression Total Score: 8 09/04/20 20 1:10 PM LEAD PHARMACY TECHNICIAN documented as of this encounter Care Teams Sleeve Setter Lockstitch Relationship Specialty Start Date End Date Elissa Barnes [address] [place] [address] PCP - General Physician Histopath Tech 08/28/21 Dexter Sykes MD [facility] NEUROLOGY [facility] [address] [address] 09/15/16 Siva Hearn MD [facility] NEUROLOG[facility] [address] [address] Neurology 09/15/16 Radha Espinoza, RN Registered Nurse Neurology 12/15/16 Jacob Hernandez MD [address] [place] [address] Assigned Neuroscience Provider 07/27/20 documented as of this encounter
--- OUTSIDE RECORDS SUMMARY | 2023-10-16 05:45 | XMS_ITS | Encounter Summary ---
Author Name Unknown Organization [facility] Address [address] [place] [address]. [place] [address] Care Team Providers Care Acoustical Carpenter Name Role Phone Dexter Sykes MD Unavailable Siva Hearn MD Unavailable [phone] Radha Espinoza RN Unavailable Unavailable Jacob Hernandez MD Unavailable [phone] Joanna Pulido MD Unavailable [phone] Elissa Barnes Primary Care Provider [phone] Encounter Details Date Type Department Care Team (Latest Contact Info) Description 01/01/2023 Travel Social History Tobacco Use Types Packs/Day [...] suspected to have Coronavirus/COVID-19? No / Unsure 01/01/2023 7:25 AM CDT documented as of this encounter Plan of Treatment Not on file documented as of this encounter Visit Diagnoses Not on filedocumented in this encounter Additional Health Concerns Assessment Noted Time PHQ-9 Depression Total Score: 8 09/04/20 20 1:10 PM DEPUTY SHERIFF CHIEF documented as of this encounter Care Teams Acoustical Carpenter Relationship Specialty Start Date End Date Elissa Barnes [address] [place] [address] PCP - General Physician Can Patcher 08/28/21 Dexter Sykes MD [facility] [address] [facility] [address] [place] [address] 09/15/16 Siva Hearn MD [facility] [address] [address] Neurology 09/15/16 Radha Espinoza, GEOFF Registered Nurse Neurology 12/15/16 Jacob Hernandez MD [address] [place] [address] Assigned Neuroscience Provider 07/27/20 Joanna Pulido MD [address] [place] [address] Assigned Cancer Care Provider 04/28/21 04/24/23 documented as of this encounter
--- OUTSIDE RECORDS SUMMARY | 2023-10-16 05:45 | XMS_ITS | Encounter Summary ---
Author Name Unknown Organization [facility] Address [address] [place] [address]. [place] [address] Care Team Providers Care Plate Former Name Role Phone Dexter Sykes MD Unavailable [phone] Siva Hearn MD Unavailable [phone] Radha Espinoza RN Unavailable Unavailable Jacob Hernandez MD Unavailable [phone] Joanna Pulido MD Unavailable [phone] Elissa Barnes Primary Care Provider [phone] Reason for Visit * Rehab Therapy Integrated Services (Routine: Next available opening) - Closed Specialty Diagnoses / Procedures Referred By Yulissa wayne Referred To Contact Diagnoses Idiopathic progressive polyneuropathy Jacob Hernandez MD [address] [place] [address] [address] Referral ID Status Reason Start Date Expiration Date Visits Re quested Visits Authorized [id number] Closed 10/05/2022 10/04/2023 365 365 Encounter Details Date Type Department Care Team (Late st Contact Info) Description 01/06/2023 8:02 AM CDT - 01/06/2023 11:59 PM CDT Hospital Encounter [address] [address] Jacob Hernandez MD [address] [place] [address] Miryam Rojas Ap, PT COUNT INCLUDES [facility] [address] [facility] [address] [place], [place] [address] Discharge Disposition: Home or Self Care Social [...] suspected to have Coronavirus/COVID-19? No / Unsure 01/06/2023 8:02 AM CDT documented as of this encounter Medications at Time of Discharge Medication Sig Dispensed Refills Start Date End Date acyclovir (ZOVIRAX) 800 MG tablet Take 800 mg by mouth as needed 0 alendronate (FOSAMAX) 70 MG tablet Take 70 mg by mouth every 7 days 0 calcitonin, salmon, (MIACALCIN) 200 UNIT/ACT nasal spray [place] 1 spray into one nostril alternating nostrils [...] time of MRI if needed. Must have form setter/driver. 2 tablet 0 09/26/2021 09/11/2023 OXYBUTYNIN CHLORIDE [...] 09/12/20 23 documented as of this encounter Plan of Treatment Not on file documented as of this encounter Visit Diagnoses Not on filedocumented in this encounter Additional Health Concerns Assessment Noted Time PHQ-9 Depression Total Score: 8 09/04/20 20 1:10 PM PRODUCTION CLERK documented as of this encounter Care Teams Plate Former Relationship Specialty Start Date End Date Elissa Barnes [address] [place] [address] PCP - General Physician Intensive Care Unit Nurse 08/28/21 Dexter Sykes MD [facility] NEUROLOGY [facility] [address] [address] 09/15/16 Siva Hearn MD [place] [address] [address] Neurology 09/15/16 Radha Espinoza, GEOFF Registered Nurse Neurology 12/15/16 Jacob Hernandez MD [address] [place] [address] [id number] Assigned Neuroscience Provider 07/27/20 Joanna Pulido MD [address] [place], [place] [address] Assigned Cancer Care Provider 04/28/21 04/24/23 documented as of this encounter
--- OUTSIDE RECORDS SUMMARY | 2023-10-16 05:45 | XMS_ITS | Encounter Summary ---
Author Name Unknown Organization [facility] Address [address] [place] [address]. [place] [address] Care Team Providers Care Hebrew [place] Name Role Phone Dexter Sykes MD Unavailable [phone] Siva Hearn MD Unavailable [phone] Radha Espinoza RN Unavailable Unavailable Jacob Hernandez MD Unavailable [phone] Joanna Pulido MD Unavailable [phone] Elissa Barnes Primary Care Provider [phone] Reason for Visit * Rehab Therapy Integrated Services (Routine: Next available opening) - Closed Specialty Diagnoses / Procedures Referred By Yulissa wayne Referred To Contact Diagnoses Idiopathic progressive polyneuropathy Jacob Hernandez MD [address] [place] [address] [address] Referral ID Status Reason Start Date Expiration Date Visits Re quested Visits Authorized [id number] Closed 10/05/2022 10/04/2023 365 365 Encounter Details Date Type Department Care Team (Late st Contact Info) Description 12/04/2022 7:26 AM HELPER STEEL FABRICATION - 12/04/2022 11:59 PM HELPER STEEL FABRICATION Hospital Encounter [address] [address] Jacob Hernandez MD [address] [place] [address] Miryam Rojas Ap, PT [facility] [address] [facility] 106 [place], [place] [address] Discharge Disposition: Home or Self Care Social [...] suspected to have Coronavirus/COVID-19? No / Unsure 12/04/2022 7:26 AM HELPER STEEL FABRICATION documented as of this encounter Medications at Time of Discharge Medication Sig Dispensed Refills Start Date End Date acyclovir (ZOVIRAX) 800 MG tablet Take 800 mg by mouth as needed 0 alendronate (FOSAMAX) 70 MG tablet Take 70 mg by mouth every 7 days 0 calcitonin, salmon, (MIACALCIN) 200 UNIT/ACT nasal spray [place] 1 spray into one nostril alternating nostrils [...] time of MRI if needed. Must have day haul or farm charter bus driver. 2 tablet 0 09/26/2021 09/11/2023 OXYBUTYNIN [...] Time PHQ-9 Depression Total Score: 8 09/04/20 1:10 PM HELPER STEEL FABRICATION documented as of this encounter Care Teams Hebrew [place]or Relationship Specialty Start Date End Date Elissa Barnes [address] [place] [address] PCP - General Physician Small Brake Form Operator 08/28/21 Dexter Sykes MD [facility] [address] [address] 09/15/16 Siva Hearn MD [address] [address] Neurology 09/15/16 Radha Espinoza, GEOFF Registered Nurse Neurology 12/15/16 Jacob Hernandez MD [address] [place] [address] [phone] Assigned Neuroscience Provider 07/27/20 Joanna Pulido MD [address] [place], [place] [address] Assigned Cancer Care Provider 04/28/21 04/24/23 documented as of this encounter
--- OUTSIDE RECORDS SUMMARY | 2023-10-16 05:45 | XMS_ITS | Encounter Summary ---
Author Name Unknown Organization [facility] Address [address] [place] [address]. [place] [address] Care Team Providers Care Sales Service Coordinator Name Role Phone Dexter Sykes MD Unavailable [phone] Siva Hearn MD Unavailable [phone] Radha Espinoza RN Unavailable Unavailable Jacob Hernandez MD Unavailable [phone] Joanna Pulido MD Unavailable [phone] Elissa Barnes Primary Care Provider [phone] Encounter Details Date Type Department Care Team (Latest Contact Info) Description 12/02/2022 Travel Social History Tobacco Use Types Packs/Day [...] suspected to have Coronavirus/COVID-19? No / Unsure 12/02/2022 7:17 AM FOURDRINIER OPERATOR documented as of this encounter Plan of Treatment Not on file documented as of this encounter Visit Diagnoses Not on filedocumented in this encounter Additional Health Concerns Assessment Noted Time PHQ-9 Depression Total Score: 8 09/04/20 20 1:10 PM FOURDRINIER OPERATOR documented as of this encounter Care Teams Sales Service Coordinator Relationship Specialty Start Date End Date Elissa Barnes [address] [place] [address] PCP - General Physician Wardrobe Specialist 08/28/21 Dexter Sykes MD [facility] NE[facility]OLOG[facility] [address] [address] 09/15/16 Siva Hearn MD [facility] [address] [address] Neurology 09/15/16 Radha Espinoza, RN Registered Nurse Neurology 12/15/16 Jacob Hernandez MD [address] [place] [address] Assigned Neuroscience Provider 07/27/20 Joanna Pulido MD [address] [place] [address] Assigned Cancer Care Provider 04/28/21 04/24/23 documented as of this encounter
--- OUTSIDE RECORDS SUMMARY | 2023-10-16 05:45 | XMS_ITS | Encounter Summary ---
Author Name Unknown Organization [facility] Address [address] [place] [address]. [place] [address] Care Team Providers Care Elevator Erector Helper Name Role Phone Dexter Sykes MD Unavailable [phone] Siva Hearn MD Unavailable [phone] Radha Espinoza RN Unavailable Unavailable Jacob Hernandez MD Unavailable [phone] Joanna Pulido MD Unavailable [phone] Elissa Barnes Primary Care Provider [phone] Reason for Visit * Rehab Therapy Integrated Services (Routine: Next available opening) - Closed Specialty Diagnoses / Procedures Referred By Yulissa wayne Referred To Contact Diagnoses Idiopathic progressive polyneuropathy Jacob Hernandez MD [address] [place] [address] [address] Referral ID Status Reason Start Date Expiration Date Visits Re quested Visits Authorized [id number] Closed 10/05/2022 10/04/2023 365 365 Encounter Details Date Type Department Care Team (Late st Contact Info) Description 12/02/2022 7:17 AM WATER SUPPLY ENGINEER - 12/02/2022 11:59 PM WATER SUPPLY ENGINEER Hospital Encounter [address] [address] Jacob Hernandez MD [address] [place] [address] Miryam Rojas Ap, PT [facility] [address] [facility] 106 [place], [place] [address] Discharge Disposition: Home or Self Care Social [...] Coronavirus/COVID-19? No / Unsure 12/02/2022 7:17 AM WATER SUPPLY ENGINEER documented as of this encounter Medications at Time of Discharge Medication Sig Dispensed Refills Start Date End Date acyclovir (ZOVIRAX) 800 MG tablet Take 800 mg by mouth as needed 0 alendronate (FOSAMAX) 70 MG tablet Take 70 mg by mouth every 7 days 0 calcitonin, salmon, (MIACALCIN) 200 UNIT/ACT nasal spray [place] 1 spray into one nostril alternating nostrils [...] time of MRI if needed. Must have waste collection driver. 2 tablet 0 09/26/2021 09/11/2023 OXYBUTYNIN [...] Depression Total Score: 8 09/04/20 1:10 PM WATER SUPPLY ENGINEER documented as of this encounter Care Teams Elevator Erector Helper Relationship Specialty Start Date End Date Elissa Barnes [address] [place] [address] PCP - General Physician Rating Specialist 08/28/21 Dexter Sykes MD [facility] NE[facility]OLOG[facility] [address] [address] 09/15/16 Siva Hearn MD [address] [address] Neurology 09/15/16 Radha Espinoza, GEOFF Registered Nurse Neurology 12/15/16 Jacob Hernandez MD [address] [place] [phone] Assigned Neuroscience Provider 07/27/20 Joanna Pulido MD [address] [place], [place] [address] Assigned Cancer Care Provider 04/28/21 04/24/23 documented as of this encounter
--- OUTSIDE RECORDS SUMMARY | 2023-10-16 05:45 | XMS_ITS | Encounter Summary ---
Author Name Unknown Organization [place] Address [address] [place] [address]. [place] [address] Care Team Providers Care Plastics Nurse Name Role Phone Dexter Sykes MD Unavailable Siva Hearn MD Unavailable [phone] Radha Espinoza RN Unavailable Unavailable Jacob Hernandez MD Unavailable [phone] Joanna Pulido MD Unavailable [phone] Elissa Barnes Primary Care Provider [phone] Encounter Details Date Type Department Care Team (Latest Contact Info) Description 12/25/2022 Travel Social History Tobacco Use Types Packs/Day [...] suspected to have Coronavirus/COVID-19? No / Unsure 12/25/2022 7:19 AM CDT documented as of this encounter Plan of Treatment Not on file documented as of this encounter Visit Diagnoses Not on filedocumented in this encounter Additional Health Concerns Assessment Noted Time PHQ-9 Depression Total Score: 8 09/04/20 20 1:10 PM INSIDE SALES COORDINATOR documented as of this encounter Care Teams Plastics Nurse Relationship Specialty Start Date End Date Elissa Barnes [address] [place] [address] PCP - General Physician Ebay Reseller 08/28/[address] [facility] NEUROLOG[facility] [address] [facility] 100 [place] [address] 09/15/[address] [facility] NEUROLOG[facility] [address] [address] Neurology 09/15/16 Radha Espinoza, GEOFF Registered Nurse Neurology 12/15/16 Jacob Hernandez MD [address] [place] [address] Assigned Neuroscience Provider 07/27/20 Joanna Pulido MD [address] [place] [address] Assigned Cancer Care Provider 04/28/21 04/24/23 documented as of this encounter
--- OUTSIDE RECORDS SUMMARY | 2023-10-16 05:45 | XMS_ITS | Encounter Summary ---
Author Name Unknown Organization [place] Address [address] [place] [address]. [place] [address] Care Team Providers Care Breeder Hen Service Technician Name Role Phone Dexter Sykes MD Unavailable [phone] Siva Hearn MD Unavailable [phone] Radha Espinoza RN Unavailable Unavailable Jacob Hernandez MD Unavailable [phone] Joanna Pulido MD Unavailable [phone] Elissa Barnes Primary Care Provider [phone] Reason for Visit * Rehab Therapy Integrated Services (Routine: Next available opening) - Closed Specialty Diagnoses / Procedures Referred By Yulissa wayne Referred To Contact Diagnoses Idiopathic progressive polyneuropathy Jacob Hernandez MD [address] [place] [address] [address] Referral ID Status Reason Start Date Expiration Date Visits Re quested Visits Authorized [id number] Closed 10/05/2022 10/04/2023 365 365 Encounter Details Date Type Department Care Team (Late st Contact Info) Description 01/01/2023 7:25 AM CDT - 01/01/2023 11:59 PM CDT Hospital Encounter [address] [address] Jacob Hernandez MD [address] [place] [address] Miryam Rojas Ap, PT [facility] [address] [facility] [address] [place], [place] [address] Discharge Disposition: Home or Self Care Social [...] calcitonin, salmon, (MIACALCIN) 200 UNIT/ACT nasal spray [place] 1 spray into one nostril alternating nostrils [...] time of MRI if needed. Must have driver education instructor. 2 tablet 0 09/26/2021 09/11/2023 OXYBUTYNIN CHLORIDE [...] Total Score: 8 09/04/20 20 1:10 PM PLUG DRILL OPERATOR documented as of this encounter Care Teams Breeder Hen Service Technician Relationship Specialty Start Date End Date Elissa Barnes [address] [place] [address] PCP - General Physician Bale Piler 08/28/21 Dexter Sykes MD [facility] [address] [address] 09/15/16 Siva Hearn MD [place] [address] [address] Neurology 09/15/16 Radha Espinoza, GEOFF Registered Nurse Neurology 12/15/16 Jacob Hernandez MD [address] [place] [address] [id number] Assigned Neuroscience Provider 07/27/20 Joanna Pulido MD [address] [place], [place] [address] Assigned Cancer Care Provider 04/28/21 04/24/23 documented as of this encounter
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
--- OUTSIDE RECORDS SUMMARY | 2023-10-16 05:45 | XMS_ITS | Encounter Summary ---
Author Name Unknown Organization [facility] Address [address] [place] [address]. [place] [address] Care Team Providers Care Dry Wall Installations Mechanic Name Role Phone Dexter Sykes MD Unavailable [phone] Siva Hearn MD Unavailable [phone] Radha Espinoza RN Unavailable Unavailable Jacob Hernandez MD Unavailable [phone] Joanna Pulido MD Unavailable [phone] Elissa Barnes Primary Care Provider [phone] Encounter Details Date Type Department Care Team (Latest Contact Info) Description 12/11/2022 Travel Social History Tobacco Use Types Packs/Day [...] suspected to have Coronavirus/COVID-19? No / Unsure 12/11/2022 7:17 AM BEVERAGE SALES CONSULTANT documented as of this encounter Plan of Treatment Not on file documented as of this encounter Visit Diagnoses Not on filedocumented in this encounter Additional Health Concerns Assessment Noted Time PHQ-9 Depression Total Score: 8 09/04/20 20 1:10 PM BEVERAGE SALES CONSULTANT documented as of this encounter Care Teams Dry Wall Installations Mechanic Relationship Specialty Start Date End Date Elissa Barnes [address] [place] [address] PCP - General Physician Machinist 2Nd Shift 08/28/21 Dexter Sykes MD [facility] [address] [address] 09/15/16 Siva Hearn MD [facility] [address] [address] Neurology 09/15/16 Radha Espinoza, RN Registered Nurse Neurology 12/15/16 Jacob Hernandez MD [address] [place] [address] Assigned Neuroscience Provider 07/27/20 Joanna Pulido MD [address] [place] [address] Assigned Cancer Care Provider 04/28/21 04/24/23 documented as of this encounter
--- OUTSIDE RECORDS SUMMARY | 2023-10-16 05:45 | XMS_ITS | Encounter Summary ---
Author Name Unknown Organization [facility] Address [address] [place] [address]. [place] [address] Care Team Providers Care X Ray Physician Name Role Phone Dexter Sykes MD Unavailable [phone] Svia Hearn MD Unavailable [phone] Radha Espinoza RN Unavailable Unavailable Jacob Hernandez MD Unavailable [phone] Joanna Pulido MD Unavailable [phone] Elissa Barnes Primary Care Provider [phone] Reason for Visit * Rehab Therapy Integrated Services (Routine: Next available opening) - Closed Specialty Diagnoses / Procedures Referred By Yulissa wayne Referred To Contact Diagnoses Idiopathic progressive polyneuropathy Jacob Hernandez MD [address] [place] [address] [address] Referral ID Status Reason Start Date Expiration Date Visits Re quested Visits Authorized [id number] Closed 10/05/2022 10/04/2023 365 365 Encounter Details Date Type Department Care Team (Late st Contact Info) Description 11/25/2022 7:25 AM COLLEGE OR UNIVERSITY BUSINESS MANAGER - 11/25/2022 11:59 PM COLLEGE OR UNIVERSITY BUSINESS MANAGER Hospital Encounter [address] [address] Jacob Hernandez MD [address] [place] [address] Miryam Rojas Ap, PT [facility]CLUD[facility] [address] [facility] [address] [place], [place] [address] Discharge Disposition: Home or Self Care Social [...] suspected to have Coronavirus/COVID-19? No / Unsure 11/25/2022 7:25 AM COLLEGE OR UNIVERSITY BUSINESS MANAGER documented as of this encounter Medications at Time of Discharge Medication Sig Dispensed Refills Start Date End Date acyclovir (ZOVIRAX) 800 MG tablet Take 800 mg by mouth as needed 0 alendronate (FOSAMAX) 70 MG tablet Take 70 mg by mouth every 7 days 0 calcitonin, salmon, (MIACALCIN) 200 UNIT/ACT nasal spray [place] 1 spray into one nostril alternating nostrils [...] time of MRI if needed. Must have petrol tanker driver. 2 tablet 0 09/26/2021 09/11/2023 OXYBUTYNIN [...] Depression Total Score: 8 09/04/20 1:10 PM COLLEGE OR UNIVERSITY BUSINESS MANAGER documented as of this encounter Care Teams X Ray Physician Relationship Specialty Start Date End Date Elissa Barnes [address] [place] [address] PCP - General Physician Scanning Clerk 08/28/21 Dexter Sykes MD [facility] [place]note 2[facility] [address] [address] 09/15/16 Siva Hearn MD [address] [address] Neurology 09/15/16 Radha Espinoza, GEOFF Registered Nurse Neurology 12/15/16 Jacob Heranndez MD [address] [place] [address] 335835 Assigned Neuroscience Provider 07/27/20 Joanna Pulido MD [address] [place], [place] [address] Assigned Cancer Care Provider 04/28/21 04/24/23 documented as of this encounter
--- OUTSIDE RECORDS SUMMARY | 2023-10-16 05:45 | XMS_ITS | Encounter Summary ---
Author Name Unknown Organization [place] [facility] Address [address] [place] [address]. [place] [address] Care Team Providers Care Veterinarian Helper Name Role Phone Dexter Sykes MD Unavailable [phone] Siva Hearn MD Unavailable [phone] Radha Espinoza RN Unavailable Unavailable Jacob Hernandez MD Unavailable [phone] Joanna Pulido MD Unavailable [phone] Elissa Barnes Primary Care Provider [phone] Encounter Details Date Type Department Care Team (Latest Contact Info) Description 11/25/2022 Travel Social History Tobacco Use Types Packs/Day [...] Coronavirus/COVID-19? No / Unsure 11/25/2022 7:25 AM SCRAP BREAKER documented as of this encounter Plan of Treatment Not on file documented as of this encounter Visit Diagnoses Not on filedocumented in this encounter Additional Health Concerns Assessment Noted Time PHQ-9 Depression Total Score: 8 09/04/20 20 1:10 PM SCRAP BREAKER documented as of this encounter Care Teams Veterinarian Helper Relationship Specialty Start Date End Date Elissa Barnes [address] [place] [address] PCP - General Physician Craft Superintendent 08/28/21 Dexter Sykes MD [facility] [address] [address] 09/15/16 Siva Hearn MD [facility] [address] [address] Neurology 09/15/16 Radha Espinoza, RN Registered Nurse Neurology 12/15/16 Jacob Hernandez MD [address] [place] [address] Assigned Neuroscience Provider 07/27/20 Joanna Pulido MD [address] [place] [address] Assigned Cancer Care Provider 04/28/21 04/24/23 documented as of this encounter
--- OUTSIDE RECORDS SUMMARY | 2023-10-16 05:45 | XMS_ITS | Encounter Summary ---
Author Name Unknown Organization [facility] Address [address] [place] [address]. [place] [address] Care Team Providers Care Furnace Firer Name Role Phone Dexter Sykes MD Unavailable [phone] Siva Hearn MD Unavailable [phone] Radha Espinoza RN Unavailable Unavailable Jacob Hernandez MD Unavailable [phone] Joanna Pulido MD Unavailable [phone] Elissa Barnes Primary Care Provider [phone] Encounter Details Date Type Department Care Team (Latest Contact Info) Description 12/04/2022 Travel Social History Tobacco Use Types Packs/Day [...] Coronavirus/COVID-19? No / Unsure 12/04/2022 7:26 AM MARBLE CHIP TERRAZZO WORKER documented as of this encounter Plan of Treatment Not on file documented as of this encounter Visit Diagnoses Not on filedocumented in this encounter Additional Health Concerns Assessment Noted Time PHQ-9 Depression Total Score: 8 09/04/20 20 1:10 PM MARBLE CHIP TERRAZZO WORKER documented as of this encounter Care Teams Furnace Firer Relationship Specialty Start Date End Date Elissa Barnes [address] [place] [address] PCP - General Physician Retention Specialist 08/28/21 Dexter Sykes MD [facility] [address] [address] 09/15/16 Siva Hearn MD [facility] [address] [address] Neurology 09/15/16 Radha Espinoza, RN Registered Nurse Neurology 12/15/16 Jacob Hernandez MD [address] [place] [address] Assigned Neuroscience Provider 07/27/20 Joanna Pulido MD [address] [place] [address] Assigned Cancer Care Provider 04/28/21 04/24/23 documented as of this encounter
--- OUTSIDE RECORDS SUMMARY | 2023-10-16 05:45 | XMS_ITS | Encounter Summary ---
Author Name Unknown Organization [facility] Address [address] [place] [address]. [place] [address] Care Team Providers Care Glass Engraver Name Role Phone Dexter Sykes MD Unavailable [phone] Siva Hearn MD Unavailable [phone] Radha Espinoza RN Unavailable Unavailable Jacob Hernandez MD Unavailable [phone] Joanna Pulido MD Unavailable [phone] Elissa Barnes Primary Care Provider [phone] Encounter Details Date Type Department Care Team (Latest Contact Info) Description 11/20/2022 Travel Social History Tobacco Use Types Packs/Day [...] suspected to have Coronavirus/COVID-19? No / Unsure 11/20/2022 7:27 AM MAT TESTER documented as of this encounter Plan of Treatment Not on file documented as of this encounter Visit Diagnoses Not on filedocumented in this encounter Additional Health Concerns Assessment Noted Time PHQ-9 Depression Total Score: 8 09/04/20 20 1:10 PM MAT TESTER documented as of this encounter Care Teams Glass Engraver Relationship Specialty Start Date End Date Elissa Barnes [address] [place] [address] PCP - General Physician Poultry Husbandry Teacher 08/28/21 Dexter Sykes MD [facility] [address] [address] 09/15/16 Siva Hearn MD [facility] [address] [address] Neurology 09/15/16 Radha Espinoza, RN Registered Nurse Neurology 12/15/16 Jacob Hernandez MD [address] [place] [address] Assigned Neuroscience Provider 07/27/20 Joanna Pulido MD [address] [place] [address] Assigned Cancer Care Provider 04/28/21 04/24/23 documented as of this encounter
--- OUTSIDE RECORDS SUMMARY | 2023-10-16 05:45 | XMS_ITS | Encounter Summary ---
Author Name Unknown Organization [facility] Address [address] [place] [address]. [place] [address] Care Team Providers Care Superintendent Schools Name Role Phone Dexter Sykes MD Unavailable [phone] Siva Hearn MD Unavailable [phone] Radha Espinoza RN Unavailable Unavailable Jacob Hernandez MD Unavailable [phone] Joanna Pulido MD Unavailable [phone] Elissa Barnes Primary Care Provider [phone] Encounter Details Date Type Department Care Team (Latest Contact Info) Description 01/06/2023 Travel Social History Tobacco Use Types Packs/Day [...] Total Score: 8 09/04/20 20 1:10 PM DIPLOMATIC OFFICER documented as of this encounter Care Teams Superintendent Schools Relationship Specialty Start Date End Date Elissa Barnes [address] [place] [address] PCP - General Physician Geophysicist 08/28/[address] [facility] [address] [facility] 100 [place] [address] 09/15/[address] [facility] [address] [address] Neurology 09/15/16 Radha Espinoza, GEOFF Registered Nurse Neurology 12/15/16 Jacob Hernandez MD [address] [place] [address] Assigned Neuroscience Provider 07/27/20 Joanna Pulido MD [address] [place] [address] Assigned Cancer Care Provider 04/28/21 04/24/23 documented as of this encounter
--- OUTSIDE RECORDS SUMMARY | 2023-10-16 05:45 | XMS_ITS | Encounter Summary ---
Author Name Unknown Organization [place] Address [address] [place] [address]. [place] [address] Care Team Providers Care Motors And Controls Tester Name Role Phone Dexter Sykes MD Unavailable [phone] Siva Hearn MD Unavailable [phone] Radha Espinoza RN Unavailable Unavailable Jacob Hernandez MD Unavailable [phone] Joanna Pulido MD Unavailable [phone] Elissa Barnes Primary Care Provider [phone] Reason for Visit * Rehab Therapy Integrated Services (Routine: Next available opening) - Closed Specialty Diagnoses / Procedures Referred By Yulissa wayne Referred To Contact Diagnoses Idiopathic progressive polyneuropathy Jacob Hernandez MD [address] [place] [address] [address] Referral ID Status Reason Start Date Expiration Date Visits Re quested Visits Authorized [id number] Closed 10/05/2022 10/04/2023 365 365 Encounter Details Date Type Department Care Team (Late st Contact Info) Description 12/11/2022 7:17 AM LOCKMAKER - 12/11/2022 11:59 PM LOCKMAKER Hospital Encounter [address] [address] Jacob Hernandez MD [address] [place] [address] Miryam Rojas Ap, PT [facility] [address] [facility] 106 [place], [place] [address] Discharge Disposition: Home or Self Care Social [...] Coronavirus/COVID-19? No / Unsure 12/11/2022 7:17 AM LOCKMAKER documented as of this encounter Medications at Time of Discharge Medication Sig Dispensed Refills Start Date End Date acyclovir (ZOVIRAX) 800 MG tablet Take 800 mg by mouth as needed 0 alendronate (FOSAMAX) 70 MG tablet Take 70 mg by mouth every 7 days 0 calcitonin, salmon, (MIACALCIN) 200 UNIT/ACT nasal spray [place] 1 spray into one nostril alternating nostrils [...] time of MRI if needed. Must have six horse hitch driver. 2 tablet 0 09/26/2021 09/11/2023 OXYBUTYNIN [...] Depression Total Score: 8 09/04/20 1:10 PM LOCKMAKER documented as of this encounter Care Teams Motors And Controls Tester Relationship Specialty Start Date End Date Elissa Barnes [address] [place] [address] PCP - General Physician Computer Analyst Supervisor 08/28/21 Dexter Sykes MD [facility] [address] [address] 09/15/16 Siva Hearn MD [address] [address] Neurology 09/15/16 Radha Espinoza, GEOFF Registered Nurse Neurology 12/15/16 Jacob Hernandez MD [address] [place] [address] Assigned Neuroscience Provider 07/27/20 Joanna Pulido MD [address] [place], [place] [address] Assigned Cancer Care Provider 04/28/21 04/24/23 documented as of this encounter
--- OUTSIDE RECORDS SUMMARY | 2023-10-16 05:46 | XMS_ITS | Encounter Summary ---
Author Name Unknown Organization [place] Address [address] [place] [address]. [place] [address] Care Team Providers Care Coordinator Of Genetic Services Name Role Phone Dexter Sykes MD Unavailable [phone] Siva Hearn MD Unavailable [phone] Radha Espinoza RN Unavailable Unavailable Jacob Hernandez MD Unavailable [phone] Joanna Pulido MD Unavailable [phone] Elissa Barnes Primary Care Provider [phone] Encounter Details Date Type Department Care Team (Latest Contact Info) Description 11/18/2022 Travel Social History Tobacco Use Types Packs/Day [...] suspected to have Coronavirus/COVID-19? No / Unsure 11/18/2022 7:18 AM BIOLOGY MANAGER documented as of this encounter Plan of Treatment Not on file documented as of this encounter Visit Diagnoses Not on filedocumented in this encounter Additional Health Concerns Assessment Noted Time PHQ-9 Depression Total Score: 8 09/04/20 20 1:10 PM BIOLOGY MANAGER documented as of this encounter Care Teams Coordinator Of Genetic Services Relationship Specialty Start Date End Date Elissa Barnes [address] [place] [address] PCP - General Physician Digital Account Coordinator 08/28/21 Dexter Sykes MD [facility] [address] [address] 09/15/16 Siva Hearn MD [facility] [address] [address] Neurology 09/15/16 Radha Espinoza, RN Registered Nurse Neurology 12/15/16 Jacob Hernandez MD [address] [place] [address] Assigned Neuroscience Provider 07/27/20 Joanna Pulido MD [address] [place] [address] Assigned Cancer Care Provider 04/28/21 04/24/23 documented as of this encounter
--- OUTSIDE RECORDS SUMMARY | 2023-10-16 05:46 | XMS_ITS | Encounter Summary ---
Author Name Unknown Organization [place] Address [address] [place] [address]. [place] [address] Care Team Providers Care Legal Consultant Name Role Phone Dexter Sykes MD Unavailable Siva Hearn MD Unavailable [phone] Nikos Ventura Primary Care Provider Unavailabl Radha Luis RN Unavailable Unavailable Jacob Hernandez MD Unavailable [phone] Ronn Howard MD Unavailable [phone] [facility] Primary Care Provider Luis Mock PA-C Unavailable Joanna Pulido MD Unavailable [phone] Elissa Barnes Primary Care Provider Encounter Details Date Type Department Care Team (Late st Contact Info) Description 09/20/2020 Telephone [facility] [address] [facility] [address] [place] [address] Jacob Hernandez MD [address] [place] [address] Social History Tobacco Use Types Packs/Day Years Used Date Smoking Tobacco: Former Cigarettes Q uit: 10/09/1992 Smokeless Tobacco: Never Alcohol Use Standard Drinks/Week Comments Yes 6 (1 standard drink = 0.6 oz pur e alcohol) thursday PHQ-2 Answer Date Recorded PHQ-2 Score 4 09/04/2020 Sex and Gender Information Value Date Recorded Sex Assigned at Not on file Gender Identity Not on file Sexual Orientation Not on file COVID-19 Exposure Response Date Recorded In the last month, have you been in contact with someone who was confirmed or suspected to have Coronavirus / COVID-19? Unable to assess 09/04/2020 1:06 PM INSTRUCTOR TRAFFIC SAFETY documented as of this encounter Miscellaneous Notes * Telephone Encounter - Giselle Britt RN - 09/20/2020 2:[address] Hernandez updated new CT order which will be faxed to [facility] (fax [phone]). Giselle Britt RN [employer] TRA[employer]AFETY * Telephone Encounter - Shannon Mtz - 09/20/2020 10:47 AM CST Nat calling to state that CT order needs to be updated. Per Nat, the order was made as with and without contrast, but facility needs the order to be with contrast. Please fax new order [phone]. 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 Source: [facility]. 10/03/2019 09/14/2023 Assessment Noted Time PHQ-9 Depression Total Score: 8 09/04/20 20 1:10 PM INSTRUCTOR TRAFFIC SAFETY documented as of this encounter Care Teams Legal Consultant Relationship Specialty Start Date End Date Nikos Ventura [facility] [address] [address] PCP - General Family Practice 11/11/16 01/21/21 [facility] [address] [place] [address] PCP - General 01/22/21 08/27/21 Elissa Barnes [facility] [place] [address] PCP - General Physician Spectroscopist 08/28/21 Dexter Sykes MD [facility] [address] [facility] [address] [place] [address] 09/15/16 Siva Hearn MD [facility] [address] [facility] [address] [place] [address] Neurology 09/15/16 Radha Espinoza, GEOFF Registered Nurse Neurology 12/15/16 Jacob Hernandez MD [address] [place] [address] [id number] Assigned Neuroscience Provider 07/27/20 Ron[place] [id number] [place] [address] Assigned Musculoskeletal Provider 12/09/20 02/09/21 Luis Mock, PA-C [id number] [address] Assigned Musculoskeletal Provider 02/10/21 08/08/22 Joanna Pulido MD [address] [place] [address] [id number] Assigned Cancer Care Provider 04/28/21 04/24/23 documented as of this encounter
--- OUTSIDE RECORDS SUMMARY | 2023-10-16 05:46 | XMS_ITS | Encounter Summary ---
Author Name Unknown Organization [place] Address [address] [place] [address]. [place] [address] Care Team Providers Care Blow Molding Machine Operator Name Role Phone Dexter Sykes MD Unavailable [phone] Siva Hearn MD Unavailable [phone] Nikos Ventura Primary Care Provider Unavailabl Radha Luis RN Unavailable Unavailable Jacob Hernandez MD Unavailable [phone] Ronn Howard MD Unavailable [phone] [place] [address] Primary Care Provider Luis Mock PA-C Unavailable Joanna Pulido MD Unavailable [phone] Elissa Barnes Primary Care Provider Encounter Details Date Type Department Care Team (Late st Contact Info) Description 01/31/2020 Telephone [facility] 1st Floor, [place] [address] [place] [phone] Jacob Hernandez MD [address] [place] [address] Social History Tobacco Use Types Packs/Day Years Used Date Smoking Tobacco: Former Cigarettes Q uit: 10/09/1992 Smokeless Tobacco: Never Alcohol Use Standard Drinks/Week Comments Yes 6 (1 standard drink = 0.6 oz pur e alcohol) thursday PHQ-2 Answer Date Recorded PHQ-2 Score 0 05/10/2019 Sex and Gender Information Value Date Recorded Sex Assigned at Not on file Gender Identity Not on file Sexual Orientation Not on file documented as of this encounter Plan of Treatment Not on file documented as of this encounter Visit Diagnoses Not on filedocumented in this encounter Additional Health Concerns 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 Source: [facility]. 10/03/2019 09/14/2023 documented as of this encounter Care Teams Blow Molding Machine Operator Relationship Specialty Start Date End Date Nikos Ventura [address] [address] PCP - General Family Practice 11/11/16 01/21/[address] [address] PCP - General 01/22/21 08/27/21 Elissa Barnes [address] [place] [address] PCP - General Physician Mechanics Handyman 08/28/21 Dexter Sykes MD [address] [address] 09/15/16 Siva Hearn MD [address] [address] Neurology 09/15/16 Radha Espinoza, GEOFF Registered Nurse Neurology 12/15/16 Jacob Hernandez MD [address] [place] [address] Assigned Neuroscience Provider 07/27/20 Ronn Howard MD [address] [place] [address] [place] [address] [place] [address] Assigned Musculoskeletal Provider 12/09/20 02/09/21 Luis Mock PA-C [address] [facility] [address] [place] [address] Assigned Musculoskeletal Provider 02/10/21 08/08/22 Joanna Pulido MD [address] [place] [address] [id number] Assigned Cancer Care Provider 04/28/21 04/24/23 documented as of this encounter
--- OUTSIDE RECORDS SUMMARY | 2023-10-16 05:46 | XMS_ITS | Encounter Summary ---
Author Name Unknown Organization [place] Address [facility] access hospital0 [facility] [place] [address] Care Team Providers Care Skirt Maker Name Role Phone Dexter Sykes MD Unavailable [phone] Siva Hearn MD Unavailable [phone] Nikos Ventura Primary Care Provider Unavailabl Radha Luis RN Unavailable Unavailable Jacob Hernandez MD Unavailable [phone] Ronn Howard MD Unavailable [phone] [place] [address] Primary Care Provider Luis Mock PA-C Unavailable [phone] Joanna Pulido MD Unavailable [phone] Elissa Barnes Primary Care Provider Reason for Visit * Reason Onset Date Comments Call Back 09/19/2020 Encounter Details Date Type Department Care Team ([facility] st Contact Info) Description 09/19/2020 Telephone [facility] 1st Floor, [facility] [address] [place] [phone] Jacob Hernandez MD [address] [place], [place] [id number] Call Back Social History Tobacco Use Types Packs/Day Years [...] COVID-19? Unable to assess 09/04/2020 1:06 PM SENIOR ENERGY MARKET COORDINATOR documented as of this encounter Miscellaneous Notes * Telephone Encounter - Giselle Britt RN - 09/20/2020 10:[address] (04/2018) for patient was ordered w/ contrast. Radiologist at [facility] (phone [phone]) would like current CT order to match in order to compare images. Gave VO for contrast only. [facility] also needs imaging from patient's 2018 CT to be sent over. Provided [facility] with imaging fax number (fax [phone]) so they can request images. 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 Source[facility] 10/03/2019 09/14/2023 Assessment Noted Time PHQ-9 Depression Total Score: 8 09/04/20 20 1:10 PM SENIOR ENERGY MARKET COORDINATOR documented as of this encounter Care Teams Skirt Maker Relationship Specialty Start Date End Date Nikos Ventura [facility] [address] [address] PCP - General Family Practice 11/11/16 01/21/21 [facility] [address] [place] [address] PCP - General 01/22/21 08/27/21 Elissa Barnes [address] [place] [address] PCP - General Physician Automatic Maintainer 08/28/21 Dexter Sykes MD [facility] E [facility] [address] [place] [address] 09/15/16 Siva Hearn MD [facility] E [facility] [address] [place] [address] Neurology 09/15/16 Radha Espinoza, GEOFF Registered Nurse Neurology 12/15/16 Jacob Hernandez MD [address] [place] [address] [id number] Assigned Neuroscience Provider 07/27/20 [place] [address] [facility] [address] [place] [address] Assigned Musculoskeletal Provider 12/09/20 02/09/21 Luis Mock PAM[employer]oliaC [address] [facility] [address] [place] [address] Assigned Musculoskeletal Provider 02/10/21 08/08/22 Joanna Pulido MD [address] [place], [place] 8[address] Assigned Cancer Care Provider 04/28/21 04/24/23 documented as of this encounter
--- OUTSIDE RECORDS SUMMARY | 2023-10-16 05:46 | XMS_ITS | Encounter Summary ---
Author Name Unknown Organization [employer] Address [address] [place] [address]. [place] [address] Care Team Providers Care Director Operations Name Role Phone Dexter Sykes MD Unavailable [phone] Siva Hearn MD Unavailable [phone] Radha Espinoza RN Unavailable Unavailable Jacob Hernandez MD Unavailable [phone] Joanna Pulido MD Unavailable [phone] Elissa Barnes Primary Care Provider [phone] Encounter Details Date Type Department Care Team (Latest Contact Info) Description 11/11/2022 Travel Social History Tobacco Use Types Packs/Day [...] suspected to have Coronavirus/COVID-19? No / Unsure 11/11/2022 7:22 AM RIVET HOLE PUNCHER documented as of this encounter Plan of Treatment Not on file documented as of this encounter Visit Diagnoses Not on filedocumented in this encounter Additional Health Concerns Assessment Noted Time PHQ-9 Depression Total Score: 8 09/04/20 20 1:10 PM RIVET HOLE PUNCHER documented as of this encounter Care Teams Director Operations Relationship Specialty Start Date End Date Elissa Barnes [address] [place] [address] PCP - General Physician Video Production Engineer 08/28/21 Dexter Sykes MD [facility] [address] [address] 09/15/16 Siva Hearn MD [facility] [address] [address] Neurology 09/15/16 Radha Espinoza, RN Registered Nurse Neurology 12/15/16 Jacob Hernandez MD [address] [place] [address] Assigned Neuroscience Provider 07/27/20 Joanna Pulido MD [address] [place] [address] Assigned Cancer Care Provider 04/28/21 04/24/23 documented as of this encounter
--- OUTSIDE RECORDS SUMMARY | 2023-10-16 05:46 | XMS_ITS | Encounter Summary ---
Author Name Unknown Organization [facility] Address [address] [place] [address]. [place] [address] Care Team Providers Care Assistant Professor Of Music Name Role Phone Dexter Sykes MD Unavailable [phone] Siva Hearn MD Unavailable [phone] Radha Espinoza RN Unavailable Unavailable Jacob Hernandez MD Unavailable [phone] Joanna Pulido MD Unavailable [phone] Elissa Barnes Primary Care Provider [phone] Reason for Referral * Rehab Therapy Integrated Services (Routine: Next available opening) - Closed Specialty Diagnoses / Procedures Referred By Yulissa wayne Referred To Contact Diagnoses Idiopathic progressive polyneuropathy Jacob Hernandez MD [address] [place] [address] [address] Referral ID Status Reason Start Date Expiration Date Visits Re quested Visits Authorized [id number] Closed 10/05/2022 10/04/2023 365 365 Question Answer Preferred Location: [facility] Scheduling Instructions: If you have not heard from the scheduling office within 2 business days, please call [phone] for [employer] [facility], for [place] and [phone] for [facility]. Course of Action Evaluation and Treatment Adult or Pediatrics Adult Specialty Services: Other My Clinical Question Is: Balance and mobility Comments Please be aware that coverage of these services is subject to the terms and limitations of your health insurance plan. Call member services at your health plan with any benefit or coverage questions. If you have not heard from the scheduling office within 2 business days, please call [phone] for [facility] José Miguel, for [place] and [phone] for [place]. TROSTATIC PAINTER Reason for Visit * Rehab Therapy Integrated Services (Routine: Next available opening) - Closed Specialty Diagnoses / Procedures Referred By Contac t Referred To Contact Diagnoses Idiopathic progressive polyneuropathy Jacob Hernandez MD [address] [place] [address] [address] Referral ID Status Reason Start Date Expiration Date Visits Re quested Visits Authorized [id number] Closed 10/05/2022 10/04/2023 365 365 Encounter Details Date Type Department Care Team (Late st Contact Info) Description 10/20/2022 7:55 AM ELECTROSTATIC PAINTER - 10/20/2022 11:59 PM ELECTROSTATIC PAINTER Hospital Encounter [facility] [address] [phone] Jacob Hernandez MD [address] [place] [address] Miryam Rojas, PT [address] [place], [place] [address] Idiopathic progressive polyneuropathy Discharge Disposition: Home or Self Care Social [...] suspected to have Coronavirus/COVID-19? No / Unsure 10/20/2022 7:50 AM ELECTROSTATIC PAINTER documented as of this encounter Medications at Time of Discharge Medication Sig Dispensed Refills Start Date End Date acyclovir (ZOVIRAX) 800 MG tablet Take 800 mg by mouth as needed 0 alendronate (FOSAMAX) 70 MG tablet Take 70 mg by mouth every 7 days 0 calcitonin, salmon, (MIACALCIN) 200 UNIT/ACT nasal spray [place] 1 spray into one nostril alternating nostrils [...] time of MRI if needed. 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 2 tablet 0 09/26/2021 09/11/2023 OXYBUTYNIN [...] Progress Notes * Miryam Rojas, PT - 10/20/2022 11:59 PM CST 10/20/22 0800 Quick Adds Quick Adds Certification Type of Visit Initial OP PT Evaluation General Information Start of Care Date 10/20/[address] Jacob Hernandez Orders Evaluate and Treat as Indicated Additional Orders balance and mobility Order Date 10/14/22 Medical Diagnosis Idiopathic progressive polyneuropathy Onset of illness/injury or Date of Surgery 10/14/22 (Date of order. Neuropathic symptoms present since 2007) Precautions/Limitations fall precautions Surgical/Medical history reviewed Yes Pertinent history of current problem (include personal factors and/or comorbidities that impact thePOC) Tiny presents with orders from neurologist as noted. She was seen for an episode of care last February. Very indepth past medical history in this PT note dated 02/12/21. Please see for further information. Pt states that she has continued to have issues with ambulation. She primarily uses her w/c which is a standard w/c and possibly too small for her. She has fallen out of this w/c several times -falls asleep in the chair. The last time she fell was this October - out of w/c. History of L3 compression fracture. (Pt shows me drawing of her spine and it has reported fracture of L1 and 4) Carpal tunnel surgery on the R 01/23 and states that since this time her function declined with walker as not able to use her hand/put pressure on it with the walker. History of B TKA, L femoral fracture withORIF. Prior level of function comment similar presentation with function [facility] evaluation 02/2021. At that time she had recent Carpal tunnel surgery limiting her mobility with walker. Last Episode of care PTrecommended she look into options for exercise/gyms Pt states she hasn't done this yet. Would like to utilize pool at the gym. She has a Cubii at home she uses for about 5 min a couple times a week. Previous/Current Treatment Physical Therapy Improvement after PT Moderate Current Community Support Family/friend caregiver Patient role/Employment history Disabled Living environment House/townhome Home/Community Accessibility Comments has outside elevator outside and uses this to enter /exit thehome. Stairs in basement but doesn't do them. Current Assistive Devices Manual Wheel Chair;Scooter;Four Wheeled Walker (has a Cubii for exercise.) Assistive Devices Comments primarily using manual w/c in the house and out of the house. Will use the walker from living room to bathroom, bathroom to kitchen about 40 feet.Wearing B AFO's custom hinged. Patient/Family Goals Statement Hard to lie down flat on mat, sleeps in recliner chair at home. 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 No help needed with bathing, or dressing. Fall Risk Screen Fall screen completed by PT Have you fallen 2 or more times in the past year? Yes Have you fallen and had an injury in the past year? Yes Timed Up and Go score (seconds) 49.48 (FWW, February 2021 1 min 25 sec with FWW, CGA from therapist) Is patient a fall risk? Yes;Department fall risk interventions implemented Fall screen comments Hasn't fallen for quite a while when walking . Did fall out of the w/c last week - fell asleep and fell out of w/c last night and also about a week ago. States her is thinking of getting a belt to have her use when in the w/c. Abuse Screen (yes response referral indicated) Feels Unsafe at Home or Work/School no Feels Threatened by Someone no Does Anyone Try to Keep You From Having Contact with Others or Doing Things Outside Your Home? no Physical Signs of Abuse Present no Pain Patient currently in pain Yes Pain comments back is a little sore right now Vitals Signs Heart Rate 74 SpO2 97 Cognitive Status Examination Orientation orientation to person, place and time Level of Consciousness alert Follows Commands and Answers Questions 100% of the time;able to follow multistep instructions Cognitive Comment appropriate. Did not test memory Observation Observation arrives to session in manual w/c, wearing B AFO - off shelf spring leaf Integumentary Integumentary Comments scab R knee, hands dorsal Posture Posture Comments rounded, forward shoulder, slump Range of Motion (ROM) ROM Comment dorsiflexion to neutral B, hip flexion WFL, limited by weakness, Shoulder flexion to approximately 90 degrees B. Strength Strength Comments sitting hip flexion 3-/5 L, 3+/5 R, knee extension 4/5 B, knee flexion 4/5 B, didnot formally assess ankle dorsiflexion/limited time. Able to give good force production. Wears B AFO. Functionally decreased strength with transfers sit to and from stand, needing UE support to bomplete the transfer and immediately places hands on the walker. decreased tolerance to activity. Bed Mobility Bed Mobility Comments did not assess this visit. Sleeps in recliner at home. Transfer Skills Transfer Comments sit to stand with B UE support from 18 inch chair and then immediately places herhands on the walker. Locomotion Wheel Chair Mobility Comments ind with manual w/c. Also has scooter at home uses outside at times. Gait Gait Comments ambulation with FWW, SBA for safety. forward flexed posture, decreased step length and decreased foot clearance B. Foot flat initial contact. Slower pace. Gait Special Tests Gait Special Tests 25 FOOT TIMED WALK Gait Special Tests 25 Foot Timed Walk Seconds 26.26 Steps 18 Steps Comments with FWW and SBA for safety. Balance Balance Comments decreased standing balance without UE support. to further assess next session. Balance Special Tests Balance Special Tests Sit to stand reps;Timed up and go Balance Special Tests Timed Up and Go Seconds 49.48 Seconds Comments with FWW, SBA and B AFO Balance Special Tests Sit to Stand Reps in 30 Seconds Comments 5X sit to and from stand 36.92 sec with heavy use of UE from arm rests of chair and hands immediately to walker with stand. (02/2021 time of 34 sec, still heavy pusll from chair and light touch to walker with stand) Sensory Examination Sensory Perception Comments tingling elbow down B, waist down - neuropathy Coordination Coordination Comments mild impairment LE Modality Interventions Planned Modality Interventions Comments per therapist discretion Planned Therapy Interventions Planned Therapy Interventions balance training;bed mobility training;gait training;joint mobilization;motor coordination training;neuromuscular re- education;strengthening;ROM;stretching;transfer training;manual therapy Clinical Impression Criteria for Skilled Therapeutic Interventions Met yes, treatment indicated PT Diagnosis impaired safety with gait, fall risk, generalized weakness Influenced by the following impairments decreased sensation B LE, UE, pain, deconditioned/general weakness Functional limitations due to impairments decreased safety with transfers, limited gait distance, reliance on scooter or w/c Clinical Presentation Evolving/Changing Clinical Presentation Rationale progressive dx , Clinical Decision Making (Complexity) Moderate complexity (multiple co morbidities) Therapy Frequency 2 times/Week Predicted Duration of Therapy Intervention (days/wks) 8 weeks Risk & Benefits of therapy have been explained Yes Patient, Family & other staff in agreement with plan of care Yes Clinical Impression Comments Pt may benifit from a w/c and seating evaluation. Falling out of w/c -falls asleep in it. GOALS PT Eval Goals 1;2;3;4;5;6 Goal 1 Goal Identifier 1 HEP Goal Description Tiny will be independent in an appropriate HEP to address her impairments for overall health and improvement in function. Target Date 12/15/22 Goal 2 Goal Identifier 2 TUG Goal Description Tiny to improve her TUG time from 49.48 sec at baseline to </= 30 sec to demonstrate significantly improved functional LE strength and safety negotiating over short distances withwalker and B AFOs. Target Date 12/15/02 Goal 3 Goal Identifier 3 - 5 x sit to stand Goal Description Tiny to complete 5 sit to and from stand repititions from 18 inch chair with lightUE support in 20 sec or less to demonstrate improved functional LE strength and balance. Goal Progress eval 36.92 sec with heavy use of UE on handrails and immediate hand placement on walker in front of her. Target Date 12/15/22 Goal 4 Goal Identifier 4 - 6MWT Goal Description Tiny to improve her 6MWT distance by 75 m or greater from initial testing to demonstrate improved tolerance to activity to allow for greater tolerance to ambulation in community/out of home. Goal Progress to be completed next session Target Date 12/15/22 Goal 5 Goal Identifier 5 - w/c and safety Goal Description Tiny to have adaptions to her w/c or have evaluation by w/c and seating clinic to allow her to have greater safety in her w/c and not fall from w/c. Goal Progress Baseline - frequent falls out of w/c - falls asleep in the chair - was doing this last year as well. Target Date 12/15/22 Goal 6 Goal Identifier 6 - balance Goal Description Tiny to demonstrate the ability to stand without outside UE support upon initial stand from a chair and sustain balance x 30 sec or greater to demonstrate improved balance, functional strength for safety with transfers and personal cares, home activities. Goal Progress eval - not able to stand without immediate hand placement on walker in front of her. Target Date 12/15/22 Total Evaluation Time PT Mona Burt Complexity Minutes ([id number]) 35 Therapy Certification Certification date from 10/20/22 Certification date to 12/15/22 Medical Diagnosis Idiopathic progressive polyneuropathy TROSTATIC PAINTER * Miryam Rojas, PT - 10/20/2022 11:59 PM CST Images from the original note were not included. [facility] OUTPATIENT PHYSICAL THERAPY FUNCTIONAL EVALUATION PLAN OF TREATMENT FOR OUTPATIENT REHABILITATION (COMPLETE FOR INITIAL CLAIMS ONLY) Patient's Last Name, First Name, M.I. Date of : 1965 Cathy Raymond Provider's Name [facility] Start of Care Date: 10/20/22 Onset Date: 10/14/22 (Date of order. Neuropathic symptoms present since 2007) Type: _X__PT ____OT ____SLP Medical Diagnosis: Idiopathic progressive polyneuropathy PT Diagnosis: impaired safety with gait, fall risk, generalized weakness Visits from SOC: 1 __ Plan of Treatment/Functional Goals: balance training, bed mobility training, gait training, joint mobilization, motor coordination training, neuromuscular re-education, strengthening, ROM, stretching, transfer training, manual therapy GOALS 1 HEP Tiny will be independent in an appropriate HEP to address her impairments for overall health and improvement in function. 12/15/22 2 TUG Tiny to improve her TUG time from 49.48 sec at baseline to </= 30 sec to demonstrate significantly improved functional LE strength and safety negotiating over short distances with walker and B AFOs. 12/15/02 3 - 5 x sit to stand Tiny to complete 5 sit to and from stand repititions from 18 inch chair with light UE support in 20sec or less to demonstrate improved functional LE strength and balance. 12/15/22 4 - 6MWT Tiny to improve her 6MWT distance by 75 m or greater from initial testing to demonstrate improved tolerance to activity to allow for greater tolerance to ambulation in community/out of home. 12/15/22 5 - w/c and safety Tiny to have adaptions to her w/c or have evaluation by w/c and seating clinic to allow her to havegreater safety in her w/c and not fall from w/c. 12/15/22 6 - balance Tiny to demonstrate the ability to stand without outside UE support upon initial stand from a chairand sustain balance x 30 sec or greater to demonstrate improved balance, functional strength for safety with transfers and personal cares, home activities. 12/15/22 Therapy Frequency: 2 times/Week Predicted Duration of Therapy Intervention: 8 weeks Miryam Rojas, PT I CERTIFY THE NEED FOR THESE SERVICES FURNISHED UNDER THIS PLAN OF TREATMENT AND WHILE UNDER MY CARE (Physician co-signature of this document indicates review and certification of the therapy plan). Certification Date From: 10/20/22 Certification Date To: 12/15/22 Referring Provider: Dr. Jacob Hernandez Initial Assessment See [facility] Evaluation- Start of Care Date: 10/20/22 TROSTATIC PAINTER Associated attestation - Jacob Hernandez MD - 10/27/2022 1:16 PM ELECTROSTATIC PAINTER Agree with PT note. documented in this encounter Plan of Treatment Scheduled Referrals Name Type Priority Associated Diagnoses Orde r Schedule Physical Therapy Referral Referral Routine: Next available opening Idiopathic progressive polyneuropathy 1 Occurrences starting 10/20/2022 until 10/20/2022 documented as of this encounter Visit Diagnoses Diagnosis Idiopathic progressive polyneuropathy documented in this encounter Additional Health Concerns Assessment Noted Time PHQ-9 Depression Total Score: 8 09/04/20 20 1:10 PM ELECTROSTATIC PAINTER documented as of this encounter Care Teams Assistant Professor Of Music Relationship Specialty Start Date End Date Elissa [place] [address] PCP - General Physician Office Machines Wirer 08/28/21 Dexter Sykes MD [facility] [address] [facility] [address] [place] [address] 09/15/16 Siva Hearn MD [facility] [address] [facility] [address] [place] [address] Neurology 09/15/16 Radha Espinoza, RN Registered Nurse Neurology 12/15/16 Jacob Hernandez MD [address] [place] [address] Assigned Neuroscience Provider 07/27/20 Joanna Pulido MD [address] [place] [address] Assigned Cancer Care Provider 04/28/21 04/24/23 documented as of this encounter
--- OUTSIDE RECORDS SUMMARY | 2023-10-16 05:46 | XMS_ITS | Encounter Summary ---
Author Name Unknown Organization [facility] Address [address] [place] [address]. [place] [address] Care Team Providers Care Custom Bookbinder Name Role Phone Dexter Sykes MD Unavailable [phone] Siva Hearn MD Unavailable [phone] Radha Espinoza RN Unavailable Unavailable Jacob Hernandez MD Unavailable [phone] Joanna Pulido MD Unavailable [phone] Elissa Barnes Primary Care Provider [phone] Reason for Visit * Rehab Therapy Integrated Services (Routine: Next available opening) - Closed Specialty Diagnoses / Procedures Referred By Yulissa wayne Referred To Contact Diagnoses Idiopathic progressive polyneuropathy Jacob Hernandez MD [address] [place] [address] [address] Referral ID Status Reason Start Date Expiration Date Visits Re quested Visits Authorized [id number] Closed 10/05/2022 10/04/2023 365 365 Encounter Details Date Type Department Care Team (Late st Contact Info) Description 11/06/2022 7:19 AM DIET KITCHEN COOK - 11/06/2022 11:59 PM DIET KITCHEN COOK Hospital Encounter [address] [phone] Jacob Hernandez MD [address] [place] [address] Miryam Rojas Ap, PT [facility] [address] [facility] [address] [place], [place] [address] Discharge Disposition: Home or Self Care Social [...] suspected to have Coronavirus/COVID-19? No / Unsure 11/06/2022 7:18 AM DIET KITCHEN COOK documented as of this encounter Medications at Time of Discharge Medication Sig Dispensed Refills Start Date End Date acyclovir (ZOVIRAX) 800 MG tablet Take 800 mg by mouth as needed 0 alendronate (FOSAMAX) 70 MG tablet Take 70 mg by mouth every 7 days 0 calcitonin, salmon, (MIACALCIN) 200 UNIT/ACT nasal spray [place] 1 spray into one nostril alternating nostrils [...] time of MRI if needed. 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 2 tablet 0 09/26/2021 09/11/2023 OXYBUTYNIN [...] Depression Total Score: 8 09/04/20 1:10 PM DIET KITCHEN COOK documented as of this encounter Care Teams Custom Bookbinder Relationship Specialty Start Date End Date Elissa Barnes [address] [place] [address] PCP - General Physician Outsole Paraffiner 08/28/21 Dexter Sykes MD [facility] [address] [address] 09/15/16 Siva Hearn MD [address] [address] Neurology 09/15/16 Radha Espinoza, GEOFF Registered Nurse Neurology 12/15/16 Jacob Hernandez MD [address] [place] [id number] Assigned Neuroscience Provider 07/27/20 Joanna Pulido MD [address] [place], [place] [address] Assigned Cancer Care Provider 04/28/21 04/24/23 documented as of this encounter
--- OUTSIDE RECORDS SUMMARY | 2023-10-16 05:46 | XMS_ITS | Encounter Summary ---
Author Name Unknown Organization [facility] Address [address] [place] [address]. [place] [address] Care Team Providers Care Lithographic Proofer Apprentice Name Role Phone Dexter Sykes MD Unavailable Siva Hearn MD Unavailable [phone] Radha Espinoza RN Unavailable Unavailable Jacob Hernandez MD Unavailable [phone] Joanna Pulido MD Unavailable [phone] Elissa Barnes Primary Care Provider [phone] Encounter Details Date Type Department Care Team (Latest Contact Info) Description 11/04/2022 Travel Social History Tobacco Use Types Packs/Day [...] suspected to have Coronavirus/COVID-19? No / Unsure 11/04/2022 7:26 AM SALES AND SERVICE CHANGE LEADER documented as of this encounter Plan of Treatment Not on file documented as of this encounter Visit Diagnoses Not on filedocumented in this encounter Additional Health Concerns Assessment Noted Time PHQ-9 Depression Total Score: 8 09/04/20 20 1:10 PM SALES AND SERVICE CHANGE LEADER documented as of this encounter Care Teams Lithographic Proofer Apprentice Relationship Specialty Start Date End Date Elissa Barnes [address] [place] [address] PCP - General Physician Feather Mixer 08/28/21 Dexter Sykes MD [facility] [address] [address] 09/15/16 Siva Hearn MD [facility] [address] [address] Neurology 09/15/16 Radha Espinoza, RN Registered Nurse Neurology 12/15/16 Jacob Hernandez MD [address] [place] [address] Assigned Neuroscience Provider 07/27/20 Joanna Pulido MD [address] [place] [address] Assigned Cancer Care Provider 04/28/21 04/24/23 documented as of this encounter
--- OUTSIDE RECORDS SUMMARY | 2023-10-16 05:46 | XMS_ITS | Encounter Summary ---
Author Name Unknown Organization [facility] Address [address] [place] [address]. [place] [address] Care Team Providers Care Spring Inspector Name Role Phone Dexter Sykes MD Unavailable Siva Hearn MD Unavailable [phone] Rdaha Espinoza RN Unavailable Unavailable Jacob Hernandez MD Unavailable [phone] Joanna Pulido MD Unavailable [phone] Elissa Barnes Primary Care Provider [phone] Encounter Details Date Type Department Care Team (Latest Contact Info) Description 10/20/2022 Travel Social History Tobacco Use Types Packs/Day [...] Coronavirus/COVID-19? No / Unsure 10/20/2022 7:50 AM CUSTOMER CARE ASSOCIATE documented as of this encounter Plan of Treatment Not on file documented as of this encounter Visit Diagnoses Not on filedocumented in this encounter Additional Health Concerns Assessment Noted Time PHQ-9 Depression Total Score: 8 09/04/20 20 1:10 PM CUSTOMER CARE ASSOCIATE documented as of this encounter Care Teams Spring Inspector Relationship Specialty Start Date End Date Elissa Barnes [address] [place] [address] PCP - General Physician Software Test Specialist 08/28/21 Dexter Sykes MD [facility] [address] [address] 09/15/16 Siva Hearn MD [facility] [address] [address] Neurology 09/15/16 Radha Espinoza, RN Registered Nurse Neurology 12/15/16 Jacob Hernandez MD [address] [place] [address] Assigned Neuroscience Provider 07/27/20 Joanna Pulido MD [address] [place] [address] Assigned Cancer Care Provider 04/28/21 04/24/23 documented as of this encounter
--- OUTSIDE RECORDS SUMMARY | 2023-10-16 05:46 | XMS_ITS | Encounter Summary ---
Author Name Unknown Organization [facility] Address [address] [place] [address]. [place] [address] Care Team Providers Care Sql Engineer Name Role Phone Dexter Sykes MD Unavailable [phone] Siva Hearn MD Unavailable [phone] Radha Espinoza RN Unavailable Unavailable Jacob Hernandez MD Unavailable [phone] Joanna Pulido MD Unavailable [phone] Elissa Barnes Primary Care Provider [phone] Encounter Details Date Type Department Care Team (Latest Contact Info) Description 11/06/2022 Travel Social History Tobacco Use Types Packs/Day [...] Coronavirus/COVID-19? No / Unsure 11/06/2022 7:18 AM RAILROAD EMERGENCY SERVICES MANAGER documented as of this encounter Plan of Treatment Not on file documented as of this encounter Visit Diagnoses Not on filedocumented in this encounter Additional Health Concerns Assessment Noted Time PHQ-9 Depression Total Score: 8 09/04/20 20 1:10 PM RAILROAD EMERGENCY SERVICES MANAGER documented as of this encounter Care Teams Sql Engineer Relationship Specialty Start Date End Date Elissa Barnes [address] [place] [address] PCP - General Physician Collection Teller 08/28/21 Dexter Sykes MD [facility] [address] [address] 09/15/16 Siva Hearn MD [facility] [address] [address] Neurology 09/15/16 Radha Espinoza, RN Registered Nurse Neurology 12/15/16 Jacob Hernandez MD [address] [place] [address] Assigned Neuroscience Provider 07/27/20 Joanna Pulido MD [address] [place] [address] Assigned Cancer Care Provider 04/28/21 04/24/23 documented as of this encounter
--- OUTSIDE RECORDS SUMMARY | 2023-10-16 05:46 | XMS_ITS | Encounter Summary ---
Author Name Unknown Organization [place] Address [address] [place] [address]. [place] [address] Care Team Providers Care Social Services Technician Name Role Phone Dexter Sykes MD Unavailable [phone] Siva Hearn MD Unavailable [phone] Radha Espinoza RN Unavailable Unavailable Jacob Hernandez MD Unavailable [phone] Luis Mock PA-C Unavailable Joanna Pulido MD Unavailable [phone] Elissa Barnes Primary Care Provider Reason for Visit * Reason Onset Date Comments Clinic Care Coordination - Follow-up 10/07/2021 MRI results Encounter Details Date Type Department Care Team (Late st Contact Info) Description 10/07/2021 Telephone [facility] 1st Floor, [facility] R[address] [phone] Jacob Hernandez MD 909 [place] [address] Clinic Care Coordination - Follow-up (MRI results) Social History Tobacco Use Types Packs/Day Years [...] AM CDT documented as of this encounter Miscellaneous Notes * Telephone Encounter - Giselle Britt RN - 10/16/2021 2:37 PM CST Called Tiny and let her know that Dr. Hernandez reviewed her liver MRI and it did not show any focal hepatic lesions that suggest cancer. It did show cirrhosis and Dr. Hernandez advises Tiny follow up with [facility]. Tiny stated she would reach out to [facility] for follow up (she has seen them in the past). Giselle Britt RN ICE UNIT OPERATOR * Telephone Encounter - Giselle Britt RN - 10/07/2021 4:05 PM CST Rx signed by Dr. Hernandez on 09/26. Called pharmacy and gave VO for script. Called Tiny and notified her that she should be able to forklift picker the Rx prior to Thursday's MRI. Giselle Britt RN ICE UNIT OPERATOR * Telephone Encounter - Gloria Neville - 10/07/2021 12:19 PM CST Patient is hoping RX for Diazepam 5MG tablet can be sent to local pharmacy. Asked for a call back to confirm ICE UNIT OPERATOR documented in this encounter Plan of Treatment Not on file documented as of this encounter Visit Diagnoses Not on filedocumented in this encounter Additional Health Concerns Assessment Noted Time PHQ-9 Depression Total Score: 8 09/04/20 20 1:10 PM SERVICE UNIT OPERATOR documented as of this encounter Care Teams Social Services Technician Relationship Specialty Start Date End Date Elissa Barnes [address] [place] [address] PCP - General Physician Toy Parts Former Supervisor 08/28/21 Dexter Sykes MD [facility] [address] [facility] 100 [place] [address] 09/15/16 Siva Hearn MD [facility] [address] [address] Neurology 09/15/16 Radha Espinoza, GEOFF Registered Nurse Neurology 12/15/16 Jacob Hernandez MD [address] [place] [address] Assigned Neuroscience Provider 07/27/20 Luis Mock, PA-C [address] 742247 Assigned Musculoskeletal Provider 02/10/21 08/08/22 Joanna Pulido MD [address] [place] [address] Assigned Cancer Care Provider 04/28/21 04/24/23 documented as of this encounter
--- OUTSIDE RECORDS SUMMARY | 2023-10-16 05:46 | XMS_ITS | Encounter Summary ---
Author Name Unknown Organization [facility] Address [address] [place] [address]. [place] [address] Care Team Providers Care Pump Erector Name Role Phone eDxter Sykes MD Unavailable [phone] Siva Hearn MD Unavailable [phone] Radha Espinoza RN Unavailable Unavailable Jacob Hernandez MD Unavailable [phone] Joanna Pulido MD Unavailable [phone] Elissa Barnes Primary Care Provider [phone] Reason for Visit * Rehab Therapy Integrated Services (Routine: Next available opening) - Closed Specialty Diagnoses / Procedures Referred By Yulissa wayne Referred To Contact Diagnoses Idiopathic progressive polyneuropathy Jacob Hernandez MD 5 [place] [address] [address] Referral ID Status Reason Start Date Expiration Date Visits Re quested Visits Authorized [id number] Closed 10/05/2022 10/04/2023 365 365 Encounter Details Date Type Department Care Team (Late st Contact Info) Description 11/20/2022 7:27 AM VIDEOTAPE OPERATOR - 11/20/2022 11:59 PM VIDEOTAPE OPERATOR Hospital Encounter [address] [address] Jacob Hernandez MD [address] [place] [address] Miryam Rojas Ap, PT [facility] [address] [facility] 106 [place], [place] [address] Discharge Disposition: Home or Self Care Social [...] Coronavirus/COVID-19? No / Unsure 11/20/2022 7:27 AM VIDEOTAPE OPERATOR documented as of this encounter Medications at Time of Discharge Medication Sig Dispensed Refills Start Date End Date acyclovir (ZOVIRAX) 800 MG tablet Take 800 mg by mouth as needed 0 alendronate (FOSAMAX) 70 MG tablet Take 70 mg by mouth every 7 days 0 calcitonin, salmon, (MIACALCIN) 200 UNIT/ACT nasal spray [place] 1 spray into one nostril alternating nostrils [...] time of MRI if needed. Must have route sales delivery driver. 2 tablet 0 09/26/2021 09/11/2023 OXYBUTYNIN [...] Depression Total Score: 8 09/04/20 1:10 PM VIDEOTAPE OPERATOR documented as of this encounter Care Teams Pump Erector Relationship Specialty Start Date End Date Elissa Barnes [address] [place] [address] PCP - General Physician Radiation Control Technician 08/28/21 Dexter Sykes MD [facility] [address] [address] 09/15/16 Siva Hearn MD [address] [address] Neurology 09/15/16 Radha Espinoza, GEOFF Registered Nurse Neurology 12/15/16 Jacob Hernandez MD [address] [place] [address] [id number] Assigned Neuroscience Provider 07/27/20 Joanna Pulido MD 909 [place], [place] [address] Assigned Cancer Care Provider 04/28/21 04/24/23 documented as of this encounter
--- OUTSIDE RECORDS SUMMARY | 2023-10-16 05:46 | XMS_ITS | Encounter Summary ---
Author Name Unknown Organization [facility] Address [address] [place] [address]. [place] [address] Care Team Providers Care Landfill Attendant Name Role Phone Dexter Sykes MD Unavailable [phone] Siva Hearn MD Unavailable [phone] Radha Espinoza RN Unavailable Unavailable Jacob Hernandez MD Unavailable [phone] Joanna Pulido MD Unavailable [phone] Elissa Barnes Primary Care Provider [phone] Reason for Visit * Rehab Therapy Integrated Services (Routine: Next available opening) - Closed Specialty Diagnoses / Procedures Referred By Yulissa wayne Referred To Contact Diagnoses Idiopathic progressive polyneuropathy Jacob Hernandez MD 8 [place] [address] [address] Referral ID Status Reason Start Date Expiration Date Visits Re quested Visits Authorized [id number] Closed 10/05/2022 10/04/2023 365 365 Encounter Details Date Type Department Care Team (Late st Contact Info) Description 11/11/2022 7:22 AM PLANNING CONSULTANT - 11/11/2022 11:59 PM PLANNING CONSULTANT Hospital Encounter [address] [address] Jacob Hernandez MD [address] [place] [address] Miryam Rojas Ap, PT [facility] [address] [facility] 106 [place], [place] [address] Discharge Disposition: Home or Self Care Social [...] Coronavirus/COVID-19? No / Unsure 11/11/2022 7:22 AM PLANNING CONSULTANT documented as of this encounter Medications at Time of Discharge Medication Sig Dispensed Refills Start Date End Date acyclovir (ZOVIRAX) 800 MG tablet Take 800 mg by mouth as needed 0 alendronate (FOSAMAX) 70 MG tablet Take 70 mg by mouth every 7 days 0 calcitonin, salmon, (MIACALCIN) 200 UNIT/ACT nasal spray [place] 1 spray into one nostril alternating nostrils [...] time of MRI if needed. Must have piledriver carpenter. 2 tablet 0 09/26/2021 09/11/2023 OXYBUTYNIN CHLORIDE [...] Depression Total Score: 8 09/04/20 1:10 PM PLANNING CONSULTANT documented as of this encounter Care Teams Landfill Attendant Relationship Specialty Start Date End Date Elissa Barnes [address] [place] [address] PCP - General Physician Funeral Car Chauffeur 08/28/21 Dexter Sykes MD [facility] [address] [address] 09/15/16 Siva Hearn MD [address] [address] Neurology 09/15/16 Radha Espinoza, GEOFF Registered Nurse Neurology 12/15/16 Jacob Hernandez MD [address] [place] [address] 946315 Assigned Neuroscience Provider 07/27/20 Joanna Pulido MD [address] [place], [place] [address] Assigned Cancer Care Provider 04/28/21 04/24/23 documented as of this encounter
--- OUTSIDE RECORDS SUMMARY | 2023-10-16 05:46 | XMS_ITS | Encounter Summary ---
Author Name Unknown Organization [facility] Address [address] [place] [address]. [place] [address] Care Team Providers Care X Ray Equipment Mechanic Name Role Phone Dexter Sykes MD Unavailable [phone] Siva Hearn MD Unavailable [phone] Radha Espinoza RN Unavailable Unavailable Jacob Hernandez MD Unavailable [phone] Joanna Pulido MD Unavailable [phone] Elissa Barnes Primary Care Provider [phone] Reason for Visit * Rehab Therapy Integrated Services (Routine: Next available opening) - Closed Specialty Diagnoses / Procedures Referred By Yulissa wayne Referred To Contact Diagnoses Idiopathic progressive polyneuropathy Jacob Hernandez MD 1 [place] [address] [address] Referral ID Status Reason Start Date Expiration Date Visits Re quested Visits Authorized [id number] Closed 10/05/2022 10/04/2023 365 365 Encounter Details Date Type Department Care Team (Late st Contact Info) Description 11/04/2022 7:26 AM APPRAISER ART - 11/04/2022 11:59 PM APPRAISER ART Hospital Encounter [address] [address] Jacob Hernandez MD [address] [place] [address] Miryam Rojas Ap, PT [facility] 420 [facility] 106 [place], [place] [address] Discharge Disposition: Home or Self Care Social [...] Coronavirus/COVID-19? No / Unsure 11/04/2022 7:26 AM APPRAISER ART documented as of this encounter Medications at Time of Discharge Medication Sig Dispensed Refills Start Date End Date acyclovir (ZOVIRAX) 800 MG tablet Take 800 mg by mouth as needed 0 alendronate (FOSAMAX) 70 MG tablet Take 70 mg by mouth every 7 days 0 calcitonin, salmon, (MIACALCIN) 200 UNIT/ACT nasal spray [place] 1 spray into one nostril alternating nostrils [...] time of MRI if needed. Must have straddle bug driver. 2 tablet 0 09/26/2021 09/11/2023 OXYBUTYNIN [...] Depression Total Score: 8 09/04/20 1:10 PM APPRAISER ART documented as of this encounter Care Teams X Ray Equipment Mechanic Relationship Specialty Start Date End Date Elissa Barnes [address] [place] [address] PCP - General Physician Worship Leader 08/28/21 Dexter Sykes MD [facility] [address] [address] 09/15/16 Siva Hearn MD [address] [address] Neurology 09/15/16 Radha Espinoza, GEOFF Registered Nurse Neurology 12/15/16 Jacob Hernandez MD [address] [place] [address] 867835 Assigned Neuroscience Provider 07/27/20 Joanna Pulido MD 909 [place], [place] [address] Assigned Cancer Care Provider 04/28/21 04/24/23 documented as of this encounter
--- OUTSIDE RECORDS SUMMARY | 2023-10-16 05:46 | XMS_ITS | Encounter Summary ---
Author Name Unknown Organization [facility] Address [address] [place] [address]. [place] [address] Care Team Providers Care Supervisor Gear Repair Name Role Phone Dexter Sykes MD Unavailable [phone] Siva Hearn MD Unavailable [phone] Radha Espinoza RN Unavailable Unavailable Jacob Hernandez MD Unavailable [phone] Joanna Pulido MD Unavailable [phone] Elissa Barnes Primary Care Provider [phone] Reason for Visit * Rehab Therapy Integrated Services (Routine: Next available opening) - Closed Specialty Diagnoses / Procedures Referred By Yulissa wayne Referred To Contact Diagnoses Idiopathic progressive [place]urop[place] [address] [address] Referral ID Status Reason Start Date Expiration Date Visits Re quested Visits Authorized [id number] Closed 10/05/2022 10/04/2023 365 365 Encounter Details Date Type Department Care Team (Late st Contact Info) Description 11/18/2022 7:19 AM BRAZER ASSEMBLER - 11/18/2022 11:59 PM BRAZER ASSEMBLER Hospital Encounter [address] [address] Jacob Hernandez MD [address] [place] [address] Miryam Rojas Ap, PT [facility] [address] [facility] 106 [place], [place] [address] Discharge Disposition: Home or Self Care Social [...] Coronavirus/COVID-19? No / Unsure 11/18/2022 7:18 AM BRAZER ASSEMBLER documented as of this encounter Medications at Time of Discharge Medication Sig Dispensed Refills Start Date End Date acyclovir (ZOVIRAX) 800 MG tablet Take 800 mg by mouth as needed 0 alendronate (FOSAMAX) 70 MG tablet Take 70 mg by mouth every 7 days 0 calcitonin, salmon, (MIACALCIN) 200 UNIT/ACT nasal spray [place] 1 spray into one nostril alternating nostrils [...] time of MRI if needed. Must have cryogenic transport driver. 2 tablet 0 09/26/2021 09/11/2023 OXYBUTYNIN [...] Depression Total Score: 8 09/04/20 1:10 PM BRAZER ASSEMBLER documented as of this encounter Care Teams Supervisor Gear Repair Relationship Specialty Start Date End Date Elissa Barnes [address] [place] [address] PCP - General Physician Manager Of Production 08/28/21 Dexter Sykes MD [facility] [address] [address] 09/15/16 Siva Hearn MD [address] [address] Neurology 09/15/16 Radha Espinoza, GEOFF Registered Nurse Neurology 12/15/16 Jacob Hernandez MD [address] [place] [address] [phone] Assigned Neuroscience Provider 07/27/20 Joanna Pulido MD 909 [place], [place] [address] Assigned Cancer Care Provider 04/28/21 04/24/23 documented as of this encounter
--- OUTSIDE RECORDS SUMMARY | 2023-10-16 05:46 | XMS_ITS | Encounter Summary ---
Author Name Unknown Organization [facility] Address [address] [place] [address]. [place] [address] Care Team Providers Care Bitumen Plant Operator Name Role Phone Dexter Sykes MD Unavailable [phone] Siva Hearn MD Unavailable [phone] Nikos Ventura Primary Care Provider Unavailabl Radha Luis RN Unavailable Unavailable Jacob Hernandez MD Unavailable [phone] Ronn Howard MD Unavailable [phone] [facility] Primary Care Provider Luis Mock PA-C Unavailable Joanna Pulido MD Unavailable [phone] Elissa Barnes Primary Care Provider Reason for Visit * Reason Onset Date Comments Orders 05/10/2020 infusion order Encounter Details Date Type Department Care Team (Late st Contact Info) Description 05/10/2020 Telephone [facility] Neurology [address] [facility] [address] [place] [address] Jacob Hernandez MD [address] [place] [address] Orders (infusion order) Social History Tobacco Use Types Packs/Day Years [...] or suspected to have Coronavirus / COVID-19? No / Unsure 05/08/2020 12:37 PM CDT documented as of this encounter Miscellaneous Notes * Telephone Encounter - Nicolette Doshi RN - 05/14/2020 10:38 AM CDT Office note faxed to the number below. IVIG plan dc'd from chart. * Telephone Encounter - Nicolette Doshi RN - 05/11/2020 10:[address] Hernandez: She can discontinue it effective immediately. She does not need 1 or 2 more infusions. Called Miryam at [facility] (phone:??[phone]; fax:??[phone]) and let her know that they can discontinue IVIG treatments immediately. I will fax her the note next time I'm on site. * Telephone Encounter - Kendra Delgado - 05/10/2020 2:56 PM CDT [facility] Phone Message May a detailed message be left on voicemail: no Reason for Call: Other: Miryam calling due to Cathy telling her that she is only having 1 or 2 moreinfusions. Miryam stated that she needs the orders for the end date for the infusions. 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 Source: [facility]. 10/03/2019 09/14/2023 documented as of this encounter Care Teams Bitumen Plant Operator Relationship Specialty Start Date End Date Nikos Ventura [place] [address] [address] PCP - General Family Practice 11/11/16 01/21/21 [facility] 1400 [place] [address] PCP - General 01/22/21 08/27/21 Elissa Barnes [address] [place] [address] PCP - General Physician Burglar Alarm Inspector 08/28/21 Dexter Sykes MD [address] [address] 09/15/16 Siva Hearn MD [address] [address] Neurology 09/15/16 Radha Espinoza, GEOFF Registered Nurse Neurology 12/15/16 Jacob Hernandez MD 909 [place] [address] Assigned Neuroscience Provider 07/27/20 [place] [address] [address] Assigned Musculoskeletal Provider 12/09/20 02/09/21 Luis Mock, PA-C [address] [address] Assigned Musculoskeletal Provider 02/10/21 08/08/22 Joanna Pulido MD [address] [place], [place] [address] Assigned Cancer Care Provider 04/28/21 04/24/23 documented as of this encounter
--- OUTSIDE RECORDS SUMMARY | 2023-10-16 05:47 | XMS_ITS | Encounter Summary ---
Author Name Unknown Organization [place] Address [address] [place] [address]. [place] [address] Care Team Providers Care Melter Supervisor Electric Arc Furnace Name Role Phone Dexter Sykes MD Unavailable [phone] Siva Hearn MD Unavailable [phone] Nikos Ventura Primary Care Provider Unavailabl Radha Luis RN Unavailable Unavailable Jacob Hernandez MD Unavailable [phone] Ronn Howard MD Unavailable [phone] [facility] Primary Care Provider Luis Mock PA-C Unavailable Joanna Pulido MD Unavailable [phone] Elissa Barnes Primary Care Provider Encounter Details Date Type Department Care Team (Late st Contact Info) Description 10/18/2019 Telephone [facility] 1st Floor, [place] R[address] [place] [phone] Jacob Hernandez MD 9[address] [place] [address] Social History Tobacco Use Types [...] encounter Miscellaneous Notes * Telephone Encounter - Yuridia Mahoney - 10/18/2019 2:45 PM CST What is the concern that needs to be addressed by a nurse? Pt is wondering if she should be off of the Tenofovir. She forgot to ask Dr Hernandez during her appt today. Please call and advise. May a detailed message be left on [employer]? Yes, leave a detailed message. 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 Source: [facility]. 10/03/2019 09/14/2023 documented as of this encounter Care Teams Melter Supervisor Electric Arc Furnace Relationship Specialty Start Date End Date Nikos Ventura [facility] [address] [place] [address] PCP - General Family Practice 11/11/16 01/21/[address] [address] PCP - General 01/22/21 08/27/21 Elissa Barnes [address] [place] [address] PCP - General Physician Receptionist Telephone Operator 08/28/21 Dexter Sykes MD [facility] [address] [address] 09/15/16 Siva Hearn MD [facility] [address] [facility] 100 [place] [address] Neurology 09/15/16 Radha Espinoza, RN Registered Nurse Neurology 12/15/16 Jacob Hernandez MD [address] [place], [place] [address] Assigned Neuroscience Provider 07/27/20 [place] [address] [facility] [address] [place], [place] [address] Assigned Musculoskeletal Provider 12/09/20 02/09/21 Luis Mock, PA-C [address] [facility] [address] [place], [place] [address] Assigned Musculoskeletal Provider 02/10/21 08/08/22 Joanna Pulido MD 9 [place], [place] [address] Assigned Cancer Care Provider 04/28/21 04/24/23 documented as of this encounter
--- OUTSIDE RECORDS SUMMARY | 2023-10-16 05:47 | XMS_ITS | Encounter Summary ---
Author Name Unknown Organization [place] Address [address] [place] [address]. [place] [address] Care Team Providers Care Environmental Safety Specialist Name Role Phone Dexter Sykes MD Unavailable [phone] Siva Hearn MD Unavailable [phone] Nikos Ventura Primary Care Provider Unavailabl Radha Luis RN Unavailable Unavailable Jacob Hernandez MD Unavailable [phone] Ronn Howard MD Unavailable [phone] [facility] Primary Care Provider Luis Mock PA-C Unavailable Joanna Pulido MD Unavailable [phone] Elissa Barnes Primary Care Provider Encounter Details Date Type Department Care Team (Late st Contact Info) Description 02/11/2017 [facility] [address] [place] [address] Joanna Pulido MD [address] [place] [address] Social History Tobacco Use Types Packs/Day Years Used Date Smoking Tobacco: Former Cigarettes Q uit: 10/09/1992 Alcohol Use Standard Drinks/Week Comments Yes 17.5 (1 standard drink = 0.6 oz pure alcohol) 4 glasses of wine nightly Sex and Gender Information Value Date Recorded Sex Assigned at Not on file Gender Identity Not on file Sexual Orientation Not on file documented as of this encounter Plan of Treatment Not on file documented as of this encounter Visit Diagnoses Not on filedocumented in this encounter Additional Health Concerns 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 Source: [facility]. 10/03/2019 09/14/2023 documented as of this encounter Care Teams Environmental Safety Specialist Relationship Specialty Start Date End Date Nikos Ventura [address] [address] PCP - General Family Practice 11/11/16 01/21/[address] [address] PCP - General 01/22/21 08/27/21 Elissa Barnes [address] [place] [address] PCP - General Physician Trust Clerk 08/28/21 Dexter Sykes MD [address] [address] 09/15/16 Siva Hearn MD [address] [address] Neurology 09/15/16 Radha Espinoza, GEOFF Registered Nurse Neurology 12/15/16 Jacob Hernandez MD 909 [place] [address] Assigned Neuroscience Provider 07/27/20 [place] [address] [address] Assigned Musculoskeletal Provider 12/09/20 02/09/21 Luis Mock PA-C [address] [address] Assigned Musculoskeletal Provider 02/10/21 08/08/22 Joanna Pulido MD 909 [place] [address] Assigned Cancer Care Provider 04/28/21 04/24/23 documented as of this encounter
--- OUTSIDE RECORDS SUMMARY | 2023-10-16 05:47 | XMS_ITS | Encounter Summary ---
Author Name Unknown Organization [place] Address [address] [place] [address]. [place] [address] Care Team Providers Care Nursing Staff Development Coordinator Name Role Phone Dexter Sykes MD Unavailable [phone] Siva Hearn MD Unavailable [phone] Nikos Ventura Primary Care Provider Unavailabl Radha Luis RN Unavailable Unavailable Jacob Hernandez MD Unavailable [phone] Ronn Howard MD Unavailable [phone] [facility] Primary Care Provider Luis Mock PA-C Unavailable Joanna Pulido MD Unavailable [phone] Elissa Barnes Primary Care Provider [phone] Reason for Visit * Reason Onset Date Comments Referral 09/17/2018 denying GI refer ral Encounter Details Date Type Department Care Team ([facility] st Contact Info) Description 09/17/2018 Telephone [facility] Neurology 909 [facility] [address] [place] [address] Jacob Hernandez MD [address] [place] [address] Referral (denying GI referral) Social History Tobacco Use Types Packs/Day Years Used Date Smoking Tobacco: Former Cigarettes Q uit: 10/09/1992 Smokeless Tobacco: Never Alcohol Use Standard Drinks/Week Comments Yes 6 (1 standard drink = 0.6 oz pur e alcohol) WEEKLY Sex and Gender Information Value Date Recorded Sex Assigned at Not on file Gender Identity Not on file Sexual Orientation Not on file documented as of this encounter Miscellaneous Notes * Telephone Encounter - Nicolette Doshi RN - 09/21/2018 10:36 AM CST GI referral faxed to [facility] (phone: [phone]; fax: [phone]). DISPENSER * Telephone Encounter - Yanely Perez - 09/20/2018 2:54 PM CST [facility] Phone Message May a detailed message be left on voicemail: yes Reason for Call: Other: Pts Ed calling to say that they would need to go to a GI clinic as close to [place] as possible due to the fact that pt broke her femur and she'll be in rehab for awhile. Action Taken: Message routed to: [facility] NEUROLOGY DISPENSER * Telephone Encounter - Nicolette Doshi RN - 09/20/2018 12:20 PM CST Called and left a M for patient requesting a call back to discuss where she would like the referral sent. This will most likely need to be [place] [facility] DISPENSER * Telephone Encounter - Joanie Fam - 09/17/2018 10:14 AM CST [facility] Phone Message May a detailed message be left on voicemail: yes Reason for Call: Other: Ileana from Dr Ybarra's office calling to say that he looked over her chart and feels that Cathy is too complicated for him to see her as he is at a small clinic. Dr Albrechtds a larger clinic for the pt. 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 Source: [facility]. 10/03/2019 09/14/2023 documented as of this encounter Care Teams Nursing Staff Development Coordinator Relationship Specialty Start Date End Date Nikos Ventura [place] [address] [address] PCP - General Family Practice 11/11/16 01/21/21 [facility] [address] [place] [address] PCP - General 01/22/21 08/27/21 Elissa Barnse [address] [place] [address] PCP - General Physician Timber Bucker 08/28/21 Dexter Sykes MD [address] [address] 09/15/16 Siva Hearn MD [address] [address] Neurology 09/15/16 Radha Espinoza, GEOFF Registered Nurse Neurology 12/15/16 Jacob Hernandez MD [address] [place] [address] Assigned Neuroscience Provider 07/27/20 [place] [address] [address] Assigned Musculoskeletal Provider 12/09/20 02/09/21 Luis Mock PA-C [address] [address] Assigned Musculoskeletal Provider 02/10/21 08/08/22 Joanna Pulido MD 909 [place] [address] Assigned Cancer Care Provider 04/28/21 04/24/23 documented as of this encounter
--- OUTSIDE RECORDS SUMMARY | 2023-10-16 05:47 | XMS_ITS | Encounter Summary ---
Author Name Unknown Organization [place] Address [address] [place] [address]. [place] [address] Care Team Providers Care Industrial Psychologist Name Role Phone Dexter Sykes MD Unavailable [phone] Siva Hearn MD Unavailable [phone] Nikos Ventura Primary Care Provider Unavailabl Radha Luis RN Unavailable Unavailable Jacob Hernandez MD Unavailable [phone] Ronn Howard MD Unavailable [phone] [facility] [place] Primary Care Provider Luis Mock PA-C Unavailable [phone] Joanna Pulido MD Unavailable [phone] Elissa Barnes Primary Care Provider Reason for Visit * Reason Onset Date Comments Refill Request 02/16/2019 tenofovir (VIREA D) 300 MG tablet Encounter Details Date Type Department Care Team (Late st Contact Info) Description 02/16/2019 Telephone [facility] Neurology 909 [facility] 3rd [place] [address] Jacob Hernandez MD 909 [place] [address] Refill Request (tenofovir (VIREAD) 300 MG tablet) Social History Tobacco Use Types Packs/Day Years Used Date Smoking Tobacco: Former Cigarettes Q uit: 10/09/1992 Smokeless Tobacco: Never Alcohol Use Standard Drinks/Week Comments Yes 6 (1 standard drink = 0.6 oz pur e alcohol) thursday PHQ-2 Answer Date Recorded PHQ-2 Score 0 10/12/2018 Sex and Gender Information Value Date Recorded Sex Assigned at Not on file Gender Identity Not on file Sexual Orientation Not on file documented as of this encounter Miscellaneous Notes * Telephone Encounter - Lyn Rivera - 02/17/2019 3:13 PM CDT [facility] Call Center Phone Message May a detailed message be left on voicemail: yes Reason for Call: Other: pt called to let clinic know that they got the RX issue figured outand do not need the refill anymore. Action Taken: Message routed to: [facility] ([facility]): neuro * Telephone Encounter - Nicolette Doshi RN - 02/17/2019 3:06 PM CDT Called and left Ed a VMM stating that Dr. Hernandez had wanted the patient to get this medication from the GI doc who prescribed it. I'm unsure if the patient was able to get in contact with them as I advised them to do this on 02/14. I requested a call back. * Telephone Encounter - Bridger Curiel - 02/16/2019 11:59 AM CDT [facility] Call Center Phone Message May a detailed message be left on voicemail: yes Reason for Call: Medication Refill Request Has the patient contacted the pharmacy for the refill? Yes Name of medication being requested: tenofovir (VIREAD) 300 MG tablet Provider who prescribed the medication: Pharmacy: [facility] [id number] [place] [address] [address] [facility] [address] Date medication is needed: as soon as possible pt is out and will be leaving town soon. 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 Source: [facility]. 10/03/2019 09/14/2023 documented as of this encounter Care Teams Industrial Psychologist Relationship Specialty Start Date End Date Nikos Ventura [facility] [address] [address] PCP - General Family Practice 11/11/16 01/21/21 [facility] [address] [place] [address] PCP - General 01/22/21 08/27/21 Elissa Barnes [address] [place] [address] PCP - General Physician Candle Maker 08/28/21 Dexter Sykes MD [facility] [address] [address] 09/15/16 Siva Hearn MD [place] [address] [address] Neurology 09/15/16 Radha Espinoza, GEOFF Registered Nurse Neurology 12/15/16 Jacob Hernandez MD [address] [place] [address] Assigned Neuroscience Provider 07/27/20 [place] [address] [address] Assigned Musculoskeletal Provider 12/09/20 02/09/21 Luis Mock PA-C [address] [address] Assigned Musculoskeletal Provider 02/10/21 08/08/22 Joanna Pulido MD [address] [place] [address] Assigned Cancer Care Provider 04/28/21 04/24/23 documented as of this encounter
--- OUTSIDE RECORDS SUMMARY | 2023-10-16 05:47 | XMS_ITS | Encounter Summary ---
Author Name Unknown Organization [place] Address [address] [place] [address]. [place] [address] Care Team Providers Care Cake Puncher Name Role Phone Dexter Sykes MD Unavailable [phone] Siva Hearn MD Unavailable [phone] Nikos Ventura Primary Care Provider Unavailabl Radha Luis RN Unavailable Unavailable Jacob Hernandez MD Unavailable [phone] Ronn Howard MD Unavailable [phone] [facility] Primary Care Provider Luis Mock PA-C Unavailable Joanna Pulido MD Unavailable [phone] Elissa Barnes Primary Care Provider [phone] Encounter Details Date Type Department Care Team (Late st Contact Info) Description 02/14/2019 Telephone [facility] [address],Clinic 1F 516 [facility] [address] [place], [place] [address] Jacob Hernandez MD 909 [place] [address] Social History Tobacco Use Types [...] Telephone Encounter - Nicolette Doshi RN - 02/14/2019 4:[address] Hernandez: Thanks but I need the GI doc to refill that. They will be better able to monitor themedication and decide when/if it can be stopped. If its a problem getting it from GI let me know, but would be best if the script stayed with them. Called patient back and let her know that GI needs to fill. She will contact them. * Telephone Encounter - Nicolette Doshi RN - 02/14/2019 4:23 PM CDT Called and spoke with patient's . He is requesting a refill of tenofovir [address] Hernandez, are you willing to take over prescribing this? It originally came from her GI doc I believe. * Telephone Encounter - Coco Blanco MA - 02/14/2019 1:41 PM CDT What is the concern that needs to be addressed by a nurse? Needs prescription sent to a different pharmacy. May a detailed message be left on voicemail? 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 Source: [employer] [facility]. 10/03/2019 09/14/2023 documented as of this encounter Care Teams Cake Puncher Relationship Specialty Start Date End Date Nikos Ventura [facility] [address] [address] PCP - General Family Practice 11/11/16 01/21/21 [facility] [address] [place] [address] PCP - General 01/22/21 08/27/21 Elissa Barnes [address] [place] [address] PCP - General Physician Solid Die Cutter 08/28/21 Dexter Sykes MD [address] [address] 09/15/16 Siva Hearn MD [address] [address] Neurology 09/15/16 Radha Espinoza, GEOFF Registered Nurse Neurology 12/15/16 Jacob Hernandez MD [address] [place] [address] Assigned Neuroscience Provider 07/27/20 Ronn [place] [address] [place] [address] [address] [place] [address] Assigned Musculoskeletal Provider 12/09/20 02/09/21 Luis Mock PA-C [address] [facility] [address] [place] [address] Assigned Musculoskeletal Provider 02/10/21 08/08/22 Joanna Pulido MD [address] [place] [address] Assigned Cancer Care Provider 04/28/21 04/24/23 documented as of this encounter
--- OUTSIDE RECORDS SUMMARY | 2023-10-16 05:47 | XMS_ITS | Encounter Summary ---
Author Name Unknown Organization [place] Address [address] [place] [address]. [place] [address] Care Team Providers Care Occupational Health Coordinator Name Role Phone Dexter Sykes MD Unavailable [phone] Siva Hearn MD Unavailable [phone] Nikos Ventura Primary Care Provider Unavailabl Radha Luis RN Unavailable Unavailable Jacob Hernandez MD Unavailable [phone] Ronn Howard MD Unavailable [phone] [facility] Primary Care Provider Luis Mock PA-C Unavailable Joanna Pulido MD Unavailable [phone] Elissa Barnes Primary Care Provider Reason for Visit * Reason Onset Date Comments Call Back 05/12/2019 Office Notes Encounter Details Date Type Department Care Team (Late st Contact Info) Description 05/12/2019 Telephone [facility] [address],Clinic 1F 516 [facility] [address] [place], [place] [address] Jacob Hernandez MD [address] [place], [place] [address] Call Back (Office Notes) Social History Tobacco Use Types Packs/Day Years [...] Telephone Encounter - Nicolette Doshi RN - 05/12/2019 2:18 PM CDT Last office note faxed to the number below. * Telephone Encounter - Louisa Hogan - 05/12/2019 9:08 AM CDT [facility] Phone Message May a detailed message be left on voicemail: yes Reason for Call: Other: Judi the Rn from [facility] is calling to speak with Nicolette or have Nicolette fax over the office notes on this pt. For further clarification please call Judi. 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 Source: [facility] [employer] [facility]. 10/03/2019 09/14/2023 documented as of this encounter Care Teams Occupational Health Coordinator Relationship Specialty Start Date End Date Nikos Ventura [facility] [address] [facility] [address] [place] [address] PCP - General Family Practice 11/11/16 01/21/[address] [address] PCP - General 01/22/21 08/27/21 Elissa Barnes [address] [place] [id number] PCP - General Physician City Comptroller 08/28/21 Dexter Sykes MD [facility] [address] [address] 09/15/16 Siva Hearn MD [facility] E [address] [address] Neurology 09/15/16 Radha Espinoza, GEOFF Registered Nurse Neurology 12/15/16 Jacob Hernandez MD [address] [place] [address] Assigned Neuroscience Provider 07/27/20 [place] [address] [address] Assigned Musculoskeletal Provider 12/09/20 02/09/21 Luis Mock, PA-C [address] [address] Assigned Musculoskeletal Provider 02/10/21 08/08/22 Joanna Pulido MD [address] [place] [address] Assigned Cancer Care Provider 04/28/21 04/24/23 documented as of this encounter
--- OUTSIDE RECORDS SUMMARY | 2023-10-16 05:47 | XMS_ITS | Encounter Summary ---
Author Name Unknown Organization [place] Address [address] [place] [address]. [place] [address] Care Team Providers Care Chronometer Assembler And Adjuster Name Role Phone Dexter Sykes MD Unavailable [phone] Siva Hearn MD Unavailable [phone] Nikos Ventura Primary Care Provider Unavailabl Radha Luis RN Unavailable Unavailable Jacob Hernandez MD Unavailable [phone] Ronn Howard MD Unavailable [phone] [facility] Primary Care Provider Luis Mock PA-C Unavailable [phone] Joanna Pulido MD Unavailable [phone] Elissa Barnes Primary Care Provider [phone] Encounter Details Date Type Department Care Team (Late st Contact Info) Description 02/05/2017 [facility] Medical Advice [facility] Neurology [address] [address] Radha Espinoza, RN Social History Tobacco Use Types Packs/Day Years [...] Comment:Added from external infection. Source: [facility]. 10/03/2019 09/14/2023 documented as of this encounter Care Teams Chronometer Assembler And Adjuster Relationship Specialty Start Date End Date Nikos Ventura [place] [address] [address] PCP - General Family Practice 11/11/16 01/21/21 [facility] 1400 [place] [address] PCP - General 01/22/21 08/27/21 Elissa Barnes [address] [place] [address] PCP - General Physician [place]mer Converter Operator 08/28/21 Dexter Sykes MD [address] [address] 09/15/16 Siva Hearn MD [address] [address] Neurology 09/15/16 Radha Espinoza, GEOFF Registered Nurse Neurology 12/15/16 Jacob Hernandez MD 909 [place] [address] Assigned Neuroscience Provider 07/27/20 [place] [address] [address] Assigned Musculoskeletal Provider 12/09/20 02/09/21 Luis Mock, PA-C [address] [address] Assigned Musculoskeletal Provider 02/10/21 08/08/22 Joanna Pulido MD 909 [place], [place] [address] Assigned Cancer Care Provider 04/28/21 04/24/23 documented as of this encounter
--- OUTSIDE RECORDS SUMMARY | 2023-10-16 05:47 | XMS_ITS | Data Portability ---
Author Name Unknown Address [address] [place] [address] Phone [phone] Organization [facility], [facility] Address [address] [place] [address] Care Team Providers Care Social Science Professor Name Role Phone VERÓNICA GANN Primary Care Provider Assessment No assessment recorded. Plan of Treatment Reminders Order Date Submit Date Provider Last Modified By Organization Details Last Modified Time Details Appointments None recorded. Lab urinalysis , dipstick 2021 022 [email or web address] [facility], [address] [place], [address], 10:29:58 culture, urine 2021 022 [facility], [address], [address], [place], [address], 11:33:08 Referral None recorded. Procedures None recorded. Surgeries None recorded. Imaging CT, abdomen + pelvis, w/o contrast 2021 022 [email or web address] [facility], [address], [place], [address], 12:11:44 Medication Orders Myrbetriq 50 mg tablet,ext ended release 2021 022 [email or web address] [id number], [address], [place], [place], [id number], 10:47:47 Patient TargetsNo targets recorded. Patient InstructionsNo instructions recorded. Reason for Referral None Reported. Results Created Date Observation Date Name Description Value Unit Range Abnormal Flag LastModifiedBy Organization Detail LastModifiedTime 06/30/20 22 06/30/2022 URINE CULTU RE final report microb iology result s abnormal Not Available [facility] [address], [place], [address], 07/02/2022 11:33:08 06/30/20 22 06/30/2022 urina lysis , dipst ick pH-Status 6.5 Not Available [facility] [address], [place], [address], 06/30/2022 10:29:43 06/30/20 22 06/30/2022 urina lysis , dipst ick Leuko-Status Trace Not Available [facility] [address], [place], [address], 06/30/2022 10:29:43 07/01/20 22 06/30/2022 bladd er scan (PROC ) No observ ation record ed. BARCODE Not Available 07/01/2022 17:32:51 Result Notes None recorded. Procedures Surgical History Date Name Laterality Status Provider Name and Address Organization Details Recorded Time 2 Bladder Scan completed Rosaura kaufman [facility] 06/30/2022 10:29:37 1 colonoscopy completed Rosaura kaufman [facility] 06/30/2022 10:28:55 Imaging Results Imaging Date Name Status LastModified by Organiz ation Details LastModified Time 06/30/2022 bladder scan (PROC) completed BARCODE Information not available 07/01/2022 17:32:51 Procedure Notes None recorded. Medical Equipment None Reported. Allergies Allergen ID Allergen Name Allergen Category Reaction Reaction Severity Criticality Documentation Date Start Date Code Code System Note Provider Name and Address Organization Details Recorded Time 024623 Bactrim medicatio n Not available Not available Not available 06/30/2022 51376 9 RxNorm Rosaura kaufman [facility] 2 10:30:09 820142 adhesive environme nt,medica tion Not available Not available Not available 06/30/2022 [facility] 10:30:15 433718 aspirin medicatio n Not available Not available Not available 06/30/2022 1191 RxNorm Rosaura Chisholm [facility] 2 10:30:22 815621 Augmentin medicatio n Not available Not available Not available 06/30/2022 02954 2 RxNorm [facility] 2 10:30:29 655584 clavulani c acid Not available Not available Not available Not available 06/30/2022 03544 RxNorm Rosauracata Chisholm [facility] 2 10:30:39 544730 hydrocodo ne Not available Not available Not available Not available 06/30/2022 5489 RxNorm Rosauracata Chisholm [facility] 2 10:30:50 Medications Name Sig Start Date Stop Date Status Note LastModified by Organization Details LastModified Time oxybutynin chloride ER 15 mg tablet,exte nded release 24 hr 06/30 completed Not Available Not Available Not Available gabapentin 600 mg tablet TAKE TWO (2) TABLETS BY MOUTH THREE TIMES PER DAY SEPARATE FROM ANTACIDS active Not Available Not Available No t Available oxybutynin chloride ER 10 mg tablet,exte nded release 24 hr TAKE 1 TABLET BY MOUTH EVERY DAY active Not Available Not Available No t Available citalopram 10 mg tablet TAKE 1 TABLET BY MOUTH EVERY DAY ALONG WITH 20MG active Not Available Not Available No t Available prednisone 20 mg tablet TAKE 1 TABLET BY MOUTH TWICE DAILY FOR 5 DAYS. START 10-11 IN MORNING active Not Available Not Available No t Available alendronate 70 mg tablet TAKE 1 TABLET BY MOUTH ONCE WEEKLY IN THE MORNING. TAKE ON AN EMPTY STOMACH WILL FULL GLASS OF WATER. DO NOT LIE DOWN FOR 1 HOUR. active Not Available Not Available No t Available clindamycin HCl 150 mg capsule TAKE 4 CAPSULES BY MOUTH 60 MINUTES BEFORE PROCEDURE active Not Available Not Available No t Available thiamine HCl (vitamin B1) 100 mg tablet TAKE 1 TABLET BY MOUTH EVERY DAY active Not Available Not Available No t Available amlodipine 2.5 mg tablet active Not Available Not Available Not Available amlodipine 5 mg tablet TAKE 1 TABLET BY MOUTH EVERY DAY active Not Available Not Available No t Available ciprofloxac in 500 mg tablet TAKE 1 TABLET BY MOUTH EVERY 12 HOURS FOR 14 DAYS active Not Available Not Available No t Available sulfamethox azole 800 mg-trimetho prim 160 mg tablet TAKE 1 TABLET BY MOUTH EVERY MORNING AND EVERY EVENING FOR 5 DAYS 06/30 completed Not Available Not Available Not Available triamcinolo ne acetonide 0.1 % topical cream APPLY TOPICALLY TO AFFECTED AREAS THREE TIMES A DAY active Not Available Not Available No t Available acyclovir 800 mg tablet TAKE 1 TABLET BY MOUTH THREE TIMES DAILY FOR 5 DAYS active Not Available Not Available No t Available pramipexole 0.5 mg tablet TAKE 1 TABLET DAILY ~108Q2 TAKE 2 TABLETS AT BEDTIME active Not Available Not Available No t Available oxycodone-a cetaminophe n 5 mg-325 mg tablet TAKE 1 TO 2 TABLETS BY MOUTH EVERY 4 TO 6 HOURS NEEDED active Not Available Not Available No t Available citalopram 20 mg tablet TAKE 1 TABLET BY MOUTH EVERY MORNING ALONG WITH 10MG active Not Available Not Available No t Available potassium chloride ER 20 mEq tablet,exte nded release(par t/cryst) TAKE TWO (2) TABLETS BY MOUTH TWICE DAILY WITH MEALS active Not Available Not Available No t Available trazodone 100 mg tablet TAKE 1 TABLET BY MOUTH EVERY NIGHT AT BEDTIME active Not Available Not Available No t Available levothyroxi ne 50 mcg tablet TAKE 1 TABLET BY MOUTH EVERY DAY BEFORE BREAKFAST active Not Available Not Available No t Available cephalexin 500 mg capsule TAKE 1 CAPSULE BY MOUTH EVERY MORNING AND 1 CAPSULE EVERY EVENING FOR 7 DAYS 06/30 completed Not Available Not Available Not Available pantoprazol e 40 mg tablet,xenia yed release TAKE 1 TABLET BY MOUTH EVERY DAY BEFORE A MEAL active Not Available Not Available No t Available cyanocobala min (vit B-12) 1,000 mcg/mL injection solution INJECT 1 ML (1,000 MCG) INTO THE MUSCLE EVERY 4 WEEKS active Not Available Not Available No t Available nystatin 100,000 unit/gram topical cream APPLY TOPICALLY TO AFFECTED AREAS TWICE DAILY NEEDED active Not Available Not Available No t Available cefadroxil 1 gram tablet TAKE 1 TABLET BY MOUTH IN THE MORNING AND IN THE EVENING 06/30 completed Not Available Not Available Not Available furosemide 20 mg tablet TAKE 1 TABLET BY MOUTH EVERY MORNING active Not Available Not Available No t Available BD Luer-Byron Syringe 3 mL 21 gauge x 1 1/2 USE DIRECTED WITH CYANOCOBA AARON active Not Available Not Available No t Available spironolact one 50 mg tablet TAKE 1 TABLET BY MOUTH EVERY MORNING active Not Available Not Available No t Available diazepam 5 mg tablet TAKE 1 TABLET BY MOUTH 30 MINUTES PRIOR TO MRI AND AT TIME OF MRI NEEDED. HAVE CHIEF UNIT FORESTER active Not Available Not Available No t Available oxycodone 5 mg tablet TAKE 1/2 TO 1 TABLET BY MOUTH EVERY 6 TO 8 HOURS NEEDED active Not Available Not Available No t Available neomycin-po lymyxin-hyd rocort 3.5 mg-10,000 unit/mL-1 % ear drops,susp SHAKE LIQUID AND INSTILL 3 DROPS TO RIGHT EAR THREE TIMES DAILY active Not Available Not Available No t Available nitrofurant oin monohydrate /macrocryst als 100 mg capsule TAKE 1 CAPSULE BY MOUTH EVERY MORNING AND 1 CAPSULE EVERY EVENING FOR 5 DAYS 06/30 completed Not Available Not Available Not Available FeroSul 325 mg (65 mg iron) tablet TAKE 1 TABLET BY MOUTH ONCE DAILY WITH A MEAL active Not Available Not Available No t Available Myrbetriq 50 mg tablet,exte nded release Take 1 tablet every day by oral route. 2021 active Not Available Not Available Not Avai lable Vitals Date Recorded Body height Body mass index (BMI) Body weight Provider Name and Address Organization Details Last Updated DateTime 06/30/2022 172.72 cm 31.9 kg/m2 91139.4 g Rosaura kaufman [facility] 06/30/2022 10:28:15 Social History Question Answer Notes LastModified by Organizat ion Details LastModified Time Tobacco Smoking Status Former Smoker Rosaura kaufman [facility] 06/30/2022 10:28:43 When Did You Quit Smoking? 16+yearssinc elastcigaret te Information not available 06/30/2022 What Was The Date Of Your Most Recent Tobacco Screening? 06/30/2022 Information not available 06/30/2022 Sex: Female Functional Status None recorded. Mental Status None recorded. Family History Relationship Description Onset Age of this Age Resolved Age Notes Sister Family history of br east cancer Medical History Condition Response High Blood Pressure Y Diabetes N Gynecological History Statement/Question Response Sexually Active? N Obstetrics History GPAL:G 1 P 0 0 0 0 Past Encounters Encounter ID Performer Location Encounter Start Date Encounter Closed Date Diagnosis/Indication [id number] Chuckie Coronado MD [facility] [address] [place] [address] 06/30/2022 10:11:25 07/04/2022 13:32:11 Urgent desire to urinate Recurrent urinary tract infection Health Concerns Section Related Observation LastModified by Organization Detai ls LastModified Time None Recorded Concern Status LastModified by Organization Details LastModified Time None Recorded Advance Directives Directive None Recorded Payers Encounter Date Sequence Insurance Name Policy Number Policy Landeros Covered Member ID Landeros Member ID Guarantor Name 06/30/2022 1 UC[employer] - DOS ON OR AFTER 19 (MEDICARE REPLACEMENT/ ADVANTAGE - HMO) [id number] Cathy Raymond [id number] Cathy Raymond Notes Date Note Type Note Provider Name and Address Organization Details Recorded Time 06/30/2022 text/html HPI Notes: 56 yo female with H/O urinary urgency (and incontinence) and recurrent UTIs. She denies bladder surgery. +small amount of leakage with sneeze / cough. She tried Oxybutynin ER 5 mg daily - caused severe dry mouth. She tried Trospium 20 mg BID - no improvement. She retried Oxybutynin XL 10 mg daily - caused elevate PVR (351 mL). She tried Detrol LA 4 mg (mild improvement) and Myrbetric 50 mg daily (no change). She is on Oxybutynin ER 10 mg daily. UCx (07/27/19 and 08/22/19) - grew E.coli CT Urogram (12/08/17) - Left - 2 cm cyst (lower pole) - no kidney stones, renal masses, or filling defects Cystoscopy (12/30/17) - normal bladder 10/03/19 - She presents for follow-up on urination. She reports no change in urination with Oxybutynin. She voids every 2-3 hour during the day and 2-3x/night. She still has urgency with incontinence at night. She denies dysuria. She uses 4-5 pads per day. 06/30/22 - She presents for follow-up on urination / UTIs. UCx - 09/09/21 - 04/09/22 and 05/12/22 - grew E.coli (R - Amp and Unasyn). UCx (05/12/22) - E.coli and Enterobacter - treated with Cipro. She still reports urinary frequency / urgency. She voids every 30 minutes to 2 hours during the day and 1-2x/night - wear Depends. She uses 5-6 Depends per day. She has stopped Lasix. - UA - no blood - trace LE - PVR = 19 mL Chuckie Coronado MD [address], [place], [address], [facility] 07/01/2022 16:21:34 OBGyn Episode No OBEpisode recorded.
--- OUTSIDE RECORDS SUMMARY | 2023-10-16 05:47 | XMS_ITS | Encounter Summary ---
Author Name Unknown Organization [facility] Address [address] [place] [address]. [place] [address] Care Team Providers Care Staff Counselor Name Role Phone Dexter Sykes MD Unavailable [phone] Siva Hearn MD Unavailable [phone] Nikos Ventura Primary Care Provider Unavailabl Radha Luis RN Unavailable Unavailable Jacob Hernandez MD Unavailable [phone] Ronn Howard MD Unavailable [phone] [place] [address] Primary Care Provider Luis Mock PA-C Unavailable [phone] Joanna Pulido MD Unavailable [phone] Elissa Barnes Primary Care Provider [phone] Reason for Referral * Consultation - Closed Specialty Diagnoses / Procedures Referred By Yulissa wayne Referred To Contact Diagnoses Hepatitis B infection Jacob Hernandez MD [address] [place] [address] Referral ID Status Reason Start Date Expiration Date Visits Re quested Visits Authorized [id number] Closed 09/15/2018 09/15/2019 1 1 Question Answer Reason for Consult Other (Specify in Comments) Comments see GI for antiviral therapy prior to rituximab initiation. Preferred Location: [facility] Please be aware that coverage of these services is subject to the terms and limitations of your health insurance plan. Call member services at your health plan with any benefit or coverage questions. Any procedures must be performed at a [facility] facility OR coordinated by your clinic's referral office. Please bring the following with you to your appointment: (1) Any X-Rays, CTs or MRIs which have been performed. Contact the facility where they were done to arrange for citrus picker prior to your scheduled appointment. (2) List of current medications (3) This referral request (4) Any documents/labs given to you for this referral LER MULTIPLE SPINDLE Reason for Visit * Reason Onset Date Comments Call Back 09/08/2018 Labs Encounter Details Date Type Department Care Team ([facility] st Contact Info) Description 09/08/2018 Telephone [facility] Neurology [address] [place] [phone] Jacob Hernandez MD [address] [place] [address] Call Back (Labs) Social History Tobacco Use Types Packs/Day Years [...] Telephone Encounter - Nicolette Doshi RN - 09/08/2018 2:[address] Hernandez: Not sure what happened with this woman's blood work. Her hepatitis testing only got partially completed. We still need her to have: Hep C antibody Hep B surface antigen Hep B core antibody Can you please see if she can get the rest of the blood testing done linda. We can not proceed with rituximab until it is done. Called Cathy back and let her know the above info. She would like lab orders faxed to [facility] (phone: [phone]; fax: [phone]). This has been done. Patient plans to get labs done 09/09. LER MULTIPLE SPINDLE * Telephone Encounter - Royal Shen - 09/08/2018 11:08 AM CST [facility] Phone Message May a detailed message be left on voicemail: no Reason for Call: Other: Pt is returning Nicolette's call about completing labs that were ordered for her to do. Please call her back. Action Taken: Message routed to: [facility] LER MULTIPLE SPINDLE * Telephone Encounter - Nicolette Doshi RN - 09/08/2018 11:08 AM CST Unfortunately, Ctahy's labs came back positive for Hepatitis B. Per Dr. Hernandez, she will need a GIreferral to be cleared to start Rituximab. Referral placed on behalf of Dr. Hernandez. Called patient and she would like th referral sent to [facility] (phone: [phone]; fax: [phone]). This has been done. 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 Source: [facility]. 10/03/2019 09/14/2023 documented as of this encounter Care Teams Staff Counselor Relationship Specialty Start Date End Date Nikos Ventura [facility] [place] [address] [address] PCP - General Family Practice 11/11/16 01/21/21 [facility], [address] [address] PCP - General 01/22/21 08/27/21 Elissa Barnes [address] [place] [address] PCP - General Physician Consumer Attorney 08/28/21 Dexter Sykes MD [facility] [address] [facility] [address] [place] [address] 09/15/16 Siva Hearn MD [facility] [address] [facility] [address] [place] [address] Neurology 09/15/16 Radha Espinoza, GEOFF Registered Nurse Neurology 12/15/16 Jacob Hernandez MD [address] [place] [address] Assigned Neuroscience Provider 07/27/20 Ronn [place] [id number] [place] [address] Assigned Musculoskeletal Provider 12/09/20 02/09/21 Luis Mock, PA-C [id number] [place] [address] Assigned Musculoskeletal Provider 02/10/21 08/08/22 Joanna Pulido MD [address] [place] [address] Assigned Cancer Care Provider 04/28/21 04/24/23 documented as of this encounter
--- OUTSIDE RECORDS SUMMARY | 2023-10-16 05:47 | XMS_ITS | Encounter Summary ---
Author Name Unknown Organization [facility] Address [address] [place] [address]. [place] [address] Care Team Providers Care Able Bodied Watchman Name Role Phone Dexter Sykes MD Unavailable [phone] Siva Hearn MD Unavailable [phone] Nikos Ventura Primary Care Provider Unavailabl Radha Luis RN Unavailable Unavailable Jacob Hernandez MD Unavailable [phone] Ronn Howard MD Unavailable [phone] [facility] Primary Care Provider Luis Mock PA-C Unavailable Joanna Pulido MD Unavailable [phone] Elissa Barnes Primary Care Provider Reason for Visit * Reason Onset Date Comments Patient/info Update 09/23/2018 Pt is in LTC Facility due to broken femur Call Back 09/23/2018 Encounter Details Date Type Department Care Team ([facility] st Contact Info) Description 09/23/2018 Telephone [facility] Neurology [address] [facility] [address] [place] [address] Jacob Hernandez MD [address] [place] [address] Patient/info Update (Pt is in LTC Facility due to broken femur); Call Back Social History Tobacco Use Types [...] Telephone Encounter - Nicolette Doshi RN - 10/01/2018 12:08 PM CST Called and let Ed know the November appointment was cancelled. GE OPENER * Telephone Encounter - Joanie Fam - 09/30/2018 3:44 PM CST [facility] Phone Message May a detailed message be left on voicemail: yes Reason for Call: Other: Ed is wondering if he should cancel the appointment in Nov since she now has an appointment in Oct. Please call him back to clarify Action Taken: Message routed to: [facility] Neurology GE OPENER * Telephone Encounter - Nicolette Doshi RN - 09/30/2018 2:55 PM CST Called to schedule patient appointment at [facility] in [place]. Patient already had an appointment set up for 11/23/18 but we need it sooner than that. They are able to see her 10/11/18 at 1:10p at their [place] location. I have rescheduled the patient for this. I called GINNY Carolina at [facility] (phone: [phone]) and she will work on setting up a transportation ride. I also called patient's Ed and made him aware of this by leaving a [facility]. GE OPENER * Telephone Encounter - Cathie Lynn - 09/29/2018 4:05 PM CST [facility] Phone Message May a detailed message be left on voicemail: yes Reason for Call: Other: Ed called in, said he was returning Nicolette's call. Please give him another call back. Action Taken: Message routed to: [facility] ([facility]): Neurology GE OPENER * Telephone Encounter - Nicolette Doshi RN - 09/29/2018 2:53 PM CST Called and left a VMM for adoption social worker at [facility] requesting a call back to discuss coordinating GI appointment and wheelchair transport. Also called patient's , Ed and urged him to contact [facility] in [place] to set up an appointment so we can work on scheduling transport. Asked for a call back with questions. GE OPENER * Telephone Encounter - Nicolette Doshi RN - 09/27/2018 9:59 AM CST Called and left another VMM for Ruchi asking for a call back linda to discuss setting up a GI appointment and transportation. GE OPENER * Telephone Encounter - Nicolette Doshi RN - 09/24/2018 2:42 PM CST Called and spoke with Cathy. She is residing at [facility] recovering from surgery to repair a fractured femur. She is non-weight bearing for about 6 weeks. She tells me it will be very difficult to get to a GI appointment. She is open to doing this if the care facility will help coordinate a wheelchair transportation ride. I called the care facility (phone: [phone]) and left a VMM for Shebly requesting a call back to discuss this. GE OPENER * Telephone Encounter - Royal Shen - 09/23/2018 3:06 PM CST [facility] Call Center Phone Message May a detailed message be left on voicemail: no Reason for Call: Other: Pt's Jai called to speak with Nicolette; he said the Pt is in a fpc care facility due to breaking her femur and recovering there right now. Dr. Hernandez referred her to a gastro provider but she won't be able to do this for some time. Please call him with any questions/concerns. 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 Source: [facility]. 10/03/2019 09/14/2023 documented as of this encounter Care Teams Able Bodied Watchman Relationship Specialty Start Date End Date Nikos Ventura [place] [address] [address] PCP - General Family Practice 11/11/16 01/21/21 [facility] [address] [place] [address] PCP - General 01/22/21 08/27/21 Elissa Barnes [address] [place] [address] PCP - General Physician Graduation Coach 08/28/21 Dexter Sykes MD [place] [address] [address] 09/15/16 Siva Hearn MD [place] [address] [address] Neurology 09/15/16 Radha Espinoza, RN Registered Nurse Neurology 12/15/16 Jacob Hernandez MD [address] [place] [address] Assigned Neuroscience Provider 07/27/20 [place] [address] [address] Assigned Musculoskeletal Provider 12/09/20 02/09/21 Luis Mock, PA-C [address] [address] Assigned Musculoskeletal Provider 02/10/21 08/08/22 Joanna Pulido MD [address] [place], [place] [address] Assigned Cancer Care Provider 04/28/21 04/24/23 documented as of this encounter
--- OUTSIDE RECORDS SUMMARY | 2023-10-16 05:47 | XMS_ITS | Encounter Summary ---
Author Name Unknown Organization [facility] Address [address] [place] [address]. [place] [address] Care Team Providers Care Fourdrinier Tender Name Role Phone Dexter Sykes MD Unavailable [phone] Siva Hearn MD Unavailable [phone] Nikos Ventura Primary Care Provider Unavailabl Radha Luis RN Unavailable Unavailable Jacob Hernandez MD Unavailable [phone] Ronn Howard MD Unavailable [phone] [facility] Primary Care Provider Luis Mock PA-C Unavailable Joanna Pulido MD Unavailable [phone] Elissa Barnes Primary Care Provider Reason for Visit * Reason Onset Date Comments Call Back 01/04/2020 Call Back 01/04/2020 Call Back Encounter Details Date Type Department Care Team (Late st Contact Info) Description 01/04/2020 Telephone [facility] 1st Floor, [place] [address] [place] [address] [phone] Jacob Hernandez MD [address] [place], [place] [address] Call Back; Call Back (Call Back) Social History Tobacco Use Types Packs/Day Years [...] Telephone Encounter - Nicolette Doshi RN - 01/05/2020 10:32 AM CDT Called and spoke with patient. She rec'd IVIG yesterday at [facility] and is scheduled again 01/24. She is wondering what she would do if this infusion center closed. I explained that we could try for home infusion but Medicare doesn't usually cover that, so another option would be to look at alternative infusion sites. We agreed to play it by ear as at this time, her infusion center doesnot have the intention of closing. Cathy will keep me posted if things change. * Telephone Encounter - Yesenia Ndiaye - 01/04/2020 3:13 PM CDT [facility] Call Center Phone Message May a detailed message be left on voicemail: no Reason for Call: Other: Pt, Cathy calling Nicolette back. Please call her at: [phone] Action Taken: Message routed to: [facility] Neurology Travel Screening: Not Applicable * Telephone Encounter - Nicolette Doshi RN - 01/04/2020 2:38 PM CDT Called patient and left [facility] requesting a call back. * Telephone Encounter - Miriam Lee MA - 01/04/2020 2:08 PM CDT What is the concern that needs to be addressed by a nurse? Patient would like a call back to discuss IVIG and moving forward with appts? May a detailed message be left on voicemail? 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 Source: [facility]. 10/03/2019 09/14/2023 documented as of this encounter Care Teams Fourdrinier Tender Relationship Specialty Start Date End Date Nikos Ventura [facility] [address] [address] PCP - General Family Practice 11/11/16 01/21/21 [facility] [address] [place] [address] PCP - General 01/22/21 08/27/21 Elissa Barnes [address] [place] [address] PCP - General Physician Machine Operator Helper 08/28/21 Dexter Sykes MD [address] [address] 09/15/16 Siva Hearn MD [facility] [address] [address] Neurology 09/15/16 Radha Espinoza, GEOFF Registered Nurse Neurology 12/15/16 Jacob Hernandez MD [address] [place] [address] Assigned Neuroscience Provider 07/27/20 [place] [address] [address] Assigned Musculoskeletal Provider 12/09/20 02/09/21 Luis Mock PA-C [id number] [address]327 Assigned Musculoskeletal Provider 02/10/21 08/08/22 Joanna Pulido MD [address] [place] [address] Assigned Cancer Care Provider 04/28/21 04/24/23 documented as of this encounter
--- OUTSIDE RECORDS SUMMARY | 2023-10-16 05:47 | XMS_ITS | Encounter Summary ---
Author Name Unknown Organization [facility] Address [address] [place] [address]. [place] [address] Care Team Providers Care Pediatric Ophthalmologist Name Role Phone Dexter Sykes MD Unavailable [phone] Siva Hearn MD Unavailable [phone] Nikos Ventura Primary Care Provider Unavailabl Radha Luis RN Unavailable Unavailable Jacob Hernandez MD Unavailable [phone] Ronn Howard MD Unavailable [phone] [facility] Primary Care Provider Luis Mock PA-C Unavailable [phone] Joanna Pulido MD Unavailable [phone] Elissa Barnes Primary Care Provider Encounter Details Date Type Department Care Team (Late st Contact Info) Description 01/30/2017 MyC Medical Advice M 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 Source: [facility]. 10/03/2019 09/14/2023 documented as of this encounter Care Teams Pediatric Ophthalmologist Relationship Specialty Start Date End Date Nikos Ventura [place] [address] [address] PCP - General Family Practice 11/11/16 01/21/21 [facility] [address] [place] [address] PCP - General 01/22/21 08/27/21 Elissa Barnes [address] [place] [address] PCP - General Physician Meal Miller 08/28/21 Dexter Sykes MD [address] [address] 09/15/16 Siva Hearn MD [address] [address] Neurology 09/15/16 Radha Espinoza, GEOFF Registered Nurse Neurology 12/15/16 Jacob Hernandez MD [address] [place] [address] Assigned Neuroscience Provider 07/27/20 [place] [address] [address] Assigned Musculoskeletal Provider 12/09/20 02/09/21 Luis Mock, PA-C [address] [address] Assigned Musculoskeletal Provider 02/10/21 08/08/22 Joanna Pulido MD [address] [place], [place] [address] Assigned Cancer Care Provider 04/28/21 04/24/23 documented as of this encounter
--- OUTSIDE RECORDS SUMMARY | 2023-10-16 05:47 | XMS_ITS | Encounter Summary ---
Author Name Unknown Organization [facility] Address [address] [place] [address]. [place] [address] Care Team Providers Care Associate Professor Of Automation Name Role Phone Dexter Sykes MD Unavailable [phone] Siav Hearn MD Unavailable [phone] Nikos Ventura Primary Care Provider Unavailabl Radha Luis RN Unavailable Unavailable Jacob Hernandez MD Unavailable [phone] Ronn Howard MD Unavailable [phone] [facility] Primary Care Provider Luis oMck PA-C Unavailable Joanna Pulido MD Unavailable [phone] Elissa Barnes Primary Care Provider [phone] Reason for Visit * Reason Onset Date Comments Call Back 11/30/2018 PICC for IVIG tr migue Encounter Details Date Type Department Care Team (Late st Contact Info) Description 11/30/2018 Telephone [facility] Neurology 9[address] [facility] [address] [place] [address] Jacob Hernandez MD [address] [place] [address] Call Back (PICC for IVIG treatments) Social History Tobacco Use Types Packs/Day Years Used Date Smoking Tobacco: Former Cigarettes Q uit: 10/09/1992 Smokeless Tobacco: Never Alcohol Use Standard Drinks/Week Comments Yes 6 (1 standard drink = 0.6 oz pur e alcohol) WEEKLY PHQ-2 Answer Date Recorded PHQ-2 Score 0 10/12/2018 Sex and Gender Information Value Date Recorded Sex Assigned at Not on file Gender Identity Not on file Sexual Orientation Not on file documented as of this encounter Miscellaneous Notes * Telephone Encounter - Nicolette Doshi RN - 12/03/2018 10:[address] Hernandez: Thanks. I do not know anything about the GI scopes. This must have come from one of her other providers. I would encourage her to proceed with the testing. Called and left [facility] for patient letting her know that Dr. Hernandez didn't order the GI procedures but that she should proceed with testing. Asked for a call back with questions. CONTROLLER * Telephone Encounter - Nicolette Doshi RN - 12/01/2018 1:41 PM CST Spoke with Thu at [facility]; who tells me that because Cathy has been in LTC s/p hip fracture and d/t to being a dyan lift she has been receiving infusions on the med-surg flooras they are more equipped to accommodate her mobility issues. Therefore she is having less experienced nurses attempting IV starts. Thu tells me that they will try alternatives to getting IV placement before moving forward with line placement. Either an infusion nurse will go and attempt OR anesthesia. They will monitor how the next couple of infusions go and if problem persists, they will [facility] back with us and we can re-evaluate need. Called patient and discussed the plan above; patient is agreeable to the plan. OF NOTE: patient tells me she is scheduled for a esophagoscopy/gastroscopy/duodenoscopy on 12/[address] Beach. Patient is under the assumption that this is at Dr. Hernandez's recommendation. Dr. Hernandez, please let me know your thoughts. CONTROLLER * Telephone Encounter - Nicolette Doshi RN - 11/30/2018 11:[address] Hernandez, please see below. Assuming you do not want to move forward with a central line. Please advise. Also, have you reviewed GIs note? Is patient clear to proceed with rituximab? CONTROLLER * Telephone Encounter - Royal Shen - 11/30/2018 10:40 AM CST [facility] Phone Message May a detailed message be left on voicemail: yes Reason for Call: Other: Pt wants to know if getting a PICC to allow the staff administering IVIG treatments to her to find the vein more easily. They are having a tough time getting veins when she's doing her IVIGs and the last time she had to be stuck 4 times. Please call her back to discuss. 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 Source: [facility]. 10/03/2019 09/14/2023 documented as of this encounter Care Teams Associate Professor Of Automation Relationship Specialty Start Date End Date Nikos Ventura [facility] E GRISEL CLARKE [address] [address] PCP - General Family Practice 11/11/16 01/21/21 [facility] [address] [place] [address] PCP - General 01/22/21 08/27/21 Elissa Barnes [address] [place] [address] PCP - General Physician Imitation Marble Mechanic 08/28/21 Dexter Sykes MD [facility] [address] [facility] [address] [place] [address] 09/15/16 Siva Hearn MD [facility] [address] [facility] [address] [place] [address] Neurology 09/15/16 Radha Espinoza, RN Registered Nurse Neurology 12/15/16 Jacob Hernandez MD [address] [place] [id number] Assigned Neuroscience Provider 07/27/20 [place] [address] [address] Assigned Musculoskeletal Provider 12/09/20 02/09/21 Luis Mock [facility] [id number] [address] Assigned Musculoskeletal Provider 02/10/21 08/08/22 Joanna Pulido MD [address] [place] [address] Assigned Cancer Care Provider 04/28/21 04/24/23 documented as of this encounter
== END 2023-10-16 05:45 | disposition home or self-care (01) ==
PROVIDERS: Emergency Provider Family Medicine; PCP Physician Assistant Medical
DX: S81.012A Laceration without foreign body, left knee, initial encounter (principal); S91.111A Laceration without foreign body of right great toe without damage to nail, initial encounter; W18.30XA Fall on same level, unspecified, initial encounter
CPT/HCPCS: 12002; 70450; 99283

== ENCOUNTER 2023-11-26 08:46 | Emergency (ER) | payer OTHER, SELFPAY ==
[2023-11-26 08:52] VITALS: BP 115/81; PULSE 70; RESP 14; TEMP 35.9; O2SAT 99; BMI 31.5
--- NOTE | 2023-11-26 09:05 | ED.GENADULT ---
HPI - General Adult General Time Seen by Provider: 09:05 Date Seen: 11/26/23 Chief complaint: Lower Extremity Swelling Stated complaint: swelling Time Seen by Provider: 11/26/23 09:05 Source: patient, RN notes reviewed and old records reviewed Mode of arrival: ambulatory Limitations: no limitations History of Present Illness HPI narrative: 58-year-old female who presents today with leg swelling. Patient notes she has had swelling of her posterior thighs for the last couple of days. This is symmetric in bilateral, has not noted much swelling in her lower legs but wears compression stockings. She is in her wheelchair a lot of the time but does walk with a walker at home. Also has noted some abdominal distension. Denies chest pain or shortness of breath. Review of primary care records shows she was seen twice last month for weight gain and also has noted to have a new heart murmur, also history of alcoholic cirrhosis. She is scheduled for an abdominal ultrasound as well as echocardiogram in the next couple of weeks. Related Data Home Medications Medication Instructions Recorded Confirmed acyclovir 800 mg tablet mg PO 06/20/23 06/20/23 alendronate 70 mg tablet 70 mg PO 06/20/23 06/20/23 carboxymethylcellulose sodium 0.5 drp ophthalmic (eye) 06/20/23 06/20/23 % eye drops cetirizine 10 mg tablet 10 mg PO DAILY 06/20/23 06/20/23 citalopram 20 mg tablet 20 mg PO DAILY 06/20/23 06/20/23 cyanocobalamin (vitamin B-12) 1,000 mcg IM MONTHLY 06/20/23 06/20/23 1,000 mcg/mL injection solution furosemide 20 mg tablet 20 mg PO DAILY 06/20/23 06/20/23 gabapentin 600 mg tablet mg PO 06/20/23 06/20/23 levothyroxine 50 mcg tablet 50 mcg PO DAILY 06/20/23 06/20/23 lidocaine 5 % topical patch 1 patch topical DAILY 06/20/23 06/20/23 metformin 500 mg tablet 500 mg PO BID 06/20/23 06/20/23 mirabegron 25 mg tablet,extended 25 mg PO DAILY 06/20/23 06/20/23 release 24 hr (Myrbetriq) oxybutynin chloride 10 mg 10 mg PO DAILY 06/20/23 06/20/23 tablet,extended release 24 hr pantoprazole 40 mg tablet,delayed 40 mg PO DAILY 06/20/23 06/20/23 release pramipexole 0.5 mg tablet mg PO 06/20/23 06/20/23 spironolactone 50 mg tablet 50 mg PO BID 06/20/23 06/20/23 thiamine HCl (vitamin B1) 100 mg 100 mg PO DAILY 06/20/23 06/20/23 tablet trazodone 100 mg tablet 100 mg PO QPM 06/20/23 06/20/23 Previous Rx's Medication Instructions Recorded cephalexin 500 mg capsule 500 mg PO TID #15 caps 10/16/23 potassium chloride 20 mEq 20 meq PO BID #10 tabs 11/26/23 tablet,extended release Allergies Allergy/AdvReac Type Severity Reaction Status Date / Time amoxicillin [From Augmentin] Allergy Verified 06/20/23 08:46 clavulanic acid Allergy Verified 06/20/23 08:46 [From Augmentin] naproxen Allergy Verified 06/20/23 08:46 [From Flanax (naproxen)] [facility] Social History Smoking Status: Never smoker How often do you have a drink containing alcohol: never AUDIT-C Alcohol total score: 0 Non-prescribed substance use: denies use Exam Narrative: Exam Narrative: General: Well-developed and well-nourished, no acute distress Head: Atraumatic and normocephalic Eyes: Pupils are equal reactive, extraocular motions intact, conjunctiva clear ENT: External nose and ears are normal, posterior pharynx without erythema or exudate Neck: No midline cervical tenderness, full spontaneous range of motion the neck, trachea midline, no adenopathy Heart: Regular rate and rhythm no murmurs or thrills Lungs: Clear to auscultation bilaterally without wheezes or crackles Abdomen: Soft, distended with fluid wave, trace anasarca Musculoskeletal: Tense edema of the posterior upper leg bilaterally, mild edema of the lower extremities bilaterally Neurologic: Awake, alert, and oriented x3, no gross focal neurologic deficits, cranial nerves intact as tested Psych: Mood and affect are appropriate Skin: No rashes Const: Vital Signs, click to edit/add: Vital Signs - 24 hr 11/26/23 08:52 Temperature 96.6 F L Pulse Rate [Pulse Oximeter] 70 Respiratory Rate 14 Blood Pressure [Ri ght Upper Arm] 115/81 Pulse Oximetry 99 Oxygen Delivery Me thod Room Air Course Course ED Course: Patient seen examined, prior records reviewed. Patient with history of cirrhosis who comes in today with some weight gain as well as lower extremity edema and abdominal distension. On exam, abdomen is distended with fluid wave, mild anasarca, no tenderness to suggest SBP. Patient has no chest pain or shortness of breath, no hypoxia or tachycardia, lungs are clear, no evidence for pulmonary edema or need for urgent paracentesis. She does have some lower extremity edema which is in dependent portions likely related patient sitting for most of the day and wearing compression stockings. Review of her outpatient records shows she is on Lasix 20 mg daily as well as spironolactone 50 mg daily. Labs ordered to evaluate for acute anemia, worsening liver disease and hypoalbuminemia, renal disease. If these are reassuring, would have patient increase her diuretics and follow up with primary care for further testing as already scheduled Reevaluation(s) Time of Reevaluation #1: 10:20 Reevaluation #1: Labs ordered and independently interpreted by me with pancytopenia which is likely related to alcohol dependence, basic panel reassuring with stable creatinine, hepatic panel with slight elevation in the AST and hypoalbuminemia, BNP normal range. A based on history, clinical exam, labs, fluid retention is likely related to patient's chronic liver disease. Would continue with echocardiogram as well as ultrasound per primary care. Will increase Lasix to 40 mg twice a day for 5 days for her edema and likely ascites secondary to cirrhosis. Vital Signs Vital signs: Initial Vital Signs Temperature 96.6 F L 11/26/23 08:52 Temperature Source Temporal Artery Scan 11/26/23 08:52 Pulse Rate 70 11/26/23 08:52 Pulse Rhythm Regular 11/26/23 08:52 Respiratory Rate 14 11/26/23 08:52 Blood Pressure 115/81 11/26/23 08:52 Blood Pressure Mean 92 11/26/23 08:52 Blood Pressure Position Sitting 11/26/23 08:52 Pulse Oximetry 99 11/26/23 08:52 Oxygen Delivery Method Room Air 11/26/23 08:52 Vital Signs Temperature 96.6 F L 11/26/23 08:52 Pulse Rate 70 11/26/23 08:52 Respiratory Rate 14 11/26/23 08:52 Blood Pressure 115/81 11/26/23 08:52 Pulse Oximetry 99 11/26/23 08:52 Oxygen Delivery Method Room Air 11/26/23 08:52 Temperature 96.6 F L 11/26/23 08:52 Pulse Rate 70 11/26/23 08:52 Respiratory Rate 14 11/26/23 08:52 Blood Pressure 115/81 11/26/23 08:52 Pulse Oximetry 99 11/26/23 08:52 Oxygen Delivery Method Room Air 11/26/23 08:52 Medical Decision Making Lab Data Labs: Lab Results 11/26/23 Range/Units 09:37 WBC 4.30 L (4.50-11.00) K/uL RBC 3.62 L (4.00-5.20) m/uL Hgb 11.5 L (12.0-16.0) gm/dL Hct 35.1 (33.0-51.0) % MCV 97 (80-100) fL MCH 32 (26-34) pg MCHC 33 (32-36) gm/dL RDW Coeff of Kay 13.5 (11.5-15.5) % Plt Count 129 L (140-440) K/uL Neut % (Auto) 47.7 (42.0-72.0) % Lymph % (Auto) 42.3 (20-44) % [place] % (Auto) 7.7 (0.0-11.0) % Eos % (Auto) 1.6 (0.0-7.0) % Baso % (Auto) 0.5 (0.0-3.0) % Neut # (Auto) 2.10 (1.7-7.0) K/uL Lymph # (Auto) 1.80 (0.90-2.90) K/uL [place] # (Auto) 0.30 (0.00-0.90) K/UL Eos # (Auto) 0.10 (0.00-0.50) K/uL Baso # (Auto) 0.00 (0.00-0.30) K/uL Abs Immat Gran (auto) 0.00 (0.00-0.30) K/uL Imm/Tot Granulo (auto) 0.2 % Sodium 138 (135-149) mmol/L Potassium 3.5 L (3.6-5.1) mmol/L Chloride 106 (96-114) mmol/L Carbon Dioxide 27 (20-32) mmol/L Anion Gap 5 L (7-15) mEq/L BUN 11 (7-30) mg/dL Creatinine 0.5 (0.5-1.5) mg/dL Estimated Creat Clear 122.21 Estimated GFR 108 ml/min Glucose 84 (60-115) mg/dL Calcium 8.6 (8.4-10.6) mg/dL Total Bilirubin 1.4 (0.1-1.5) mg/dL Direct Bilirubin 0.5 (0.0-0.5) mg/dL AST 43 H (12-35) U/L ALT 24 (4-35) U/L Alkaline Phosphatase 99 (40-150) U/L NT-Pro-B Natriuret Pep 265 pg/mL Total Protein 6.9 (6.0-8.3) g/dL Albumin 2.9 L (3.3-5.0) g/dL Discharge Plan Discharge Clinical Impression: Bilateral lower extremity edema, Cirrhosis of liver with ascites Patient Disposition: Home, Self-Care Condition: Stable Instructions: Cirrhosis of the Liver (ED), Leg Edema (ED) Additional Instructions: The swelling you legs is likely due to your liver disease. You should follow-up for ultrasound of her heart (echocardiogram) and other testing as scheduled. Continue your current medications. Increase your furosemide (Lasix) to 40 mg (two tablets) twice a day for the next 5 days. Take the 1st dose in the morning in the 2nd dose in the early afternoon. Because her potassium level is slightly low, you will be started on potassium replacement with this as well. Follow-up with your primary care doctor in 1 week for recheck. Activity Level: Activity as Tolerated Discharge Diet: Regular Prescriptions: New potassium chloride 20 mEq tablet extended release 20 meq PO BID Qty: 10 0RF No Action spironolactone 50 mg tablet 50 mg PO BID levothyroxine 50 mcg tablet 50 mcg PO DAILY Myrbetriq 25 mg tablet extended release 24 hr 25 mg PO DAILY furosemide 20 mg tablet 20 mg PO DAILY pantoprazole 40 mg tablet,delayed release (DR/EC) 40 mg PO DAILY trazodone 100 mg tablet 100 mg PO QPM citalopram 20 mg tablet 20 mg PO DAILY gabapentin 600 mg tablet PO acyclovir 800 mg tablet PO pramipexole 0.5 mg tablet PO oxybutynin chloride 10 mg tablet extended release 24hr 10 mg PO DAILY metformin 500 mg tablet 500 mg PO BID alendronate 70 mg tablet 70 mg PO lidocaine 5 % adhesive patch,medicated 1 patch topical DAILY cetirizine 10 mg tablet 10 mg PO DAILY thiamine HCl (vitamin B1) 100 mg tablet 100 mg PO DAILY cyanocobalamin (vitamin B-12) 1,000 mcg/mL solution 1,000 mcg IM MONTHLY carboxymethylcellulose sodium 0.5 % drops ophthalmic (eye) cephalexin 500 mg capsule 500 mg PO TID Qty: 15 0RF Follow Up/Referrals: Elissa Barnes PAMagnoliaC [Primary Care Provider] - Stand Alone Forms: [facility] Info Instructions
[2023-11-26 09:46] LABS: Basophils Percent Auto 0.5 % (0.0-3.0); Eosinophils Percent Auto 1.6 % (0.0-7.0); Hematocrit 35.1 % (33.0-51.0); Hemoglobin* 11.5 gm/dL (12.0-16.0); Immature Granulocytes Pct Auto 0.2 %; Lymphocytes Percent Auto 42.3 % (20-44); Mean Corpuscular HGB Conc 33 gm/dL (32-36); Mean Corpuscular Hemoglobin 32 pg (26-34); Mean Corpuscular Volume 97 fL (80-100); Monocytes Percent Auto 7.7 % (0.0-11.0); Neutrophils Percent Auto 47.7 % (42.0-72.0); Platelet Count* 129 K/uL (140-440); RDW Coefficient of Variation % 13.5 % (11.5-15.5); Red Blood Count 3.62 m/uL (4.00-5.20)
[2023-11-26 09:49] LABS: Slide Review Reflex No
[2023-11-26 09:59] LABS: Albumin* 2.9 g/dL (3.3-5.0); Chloride* 106 mmol/L (96-114)
[2023-11-26 10:00] LABS: Potassium* 3.5 mmol/L (3.6-5.1); Sodium* 138 mmol/L (135-149)
[2023-11-26 10:02] LABS: Anion Gap 5 mEq/L (7-15); Aspartate Amino Transferase* 43 U/L (12-35); Bilirubin Direct* 0.5 mg/dL (0.0-0.5); Bilirubin Total* 1.4 mg/dL (0.1-1.5); Blood Urea Nitrogen* 11 mg/dL (7-30); Carbon Dioxide* 27 mmol/L (20-32); Creatinine* 0.5 mg/dL (0.5-1.5); Est. Creatinine Clearance* 122.21; Estimated Glomerular Filt Rate 108 ml/min; Total Protein* 6.9 g/dL (6.0-8.3)
[2023-11-26 10:03] LABS: Alanine Aminotransferase* 24 U/L (4-35); Alkaline Phosphatase* 99 U/L (40-150); Calcium* 8.6 mg/dL (8.4-10.6); Glucose* 84 mg/dL (60-115)
[2023-11-26 10:13] LABS: NT Pro B Type NatriureticPept* 265 pg/mL
[2023-11-26 10:36] VITALS: BP 115/81; PULSE 70; RESP 14; TEMP 35.9
== END 2023-11-26 10:37 | disposition home or self-care (01) ==
PROVIDERS: Emergency Provider Family Medicine; PCP Physician Assistant Medical
DX: R60.9 Edema, unspecified (principal); K70.31 Alcoholic cirrhosis of liver with ascites
CPT/HCPCS: 36415; 80048; 80076; 83880; 85025; 99283; 99284

== ENCOUNTER 2023-11-27 10:57 | Outpatient (RCR) | payer OTHER, MEDICARE, SELFPAY | END 2024-03-26 23:59 | disposition home or self-care (01) | PROVIDERS: PCP Physician Assistant Medical; Visit Provider Physician Assistant Medical | DX: Z53.20 Procedure and treatment not carried out because of patient's decision for unspecified reasons (principal) ==

== ENCOUNTER 2024-02-02 09:56 | Outpatient (CLI) | payer OTHER, SELFPAY ==
--- OUTSIDE RECORDS SUMMARY | 2024-02-08 17:13 | XMS_ITS | Clinical Summary ---
Author Name Unknown Organization [employer] Address [facility] [place] [address] Phone Care Team Providers Care Vein Access Technician Name Role Phone Unavailable Primary Care Provider Unavailabl e Source Comments Pramana is fully rolled out on [employer]. Last update 03/09/09.[employer] Allergies Active Allergy Reactions Criticality Noted Date Comments Adhesive Rash 02/04/2024 Reaction to steri-strips Adhesive Tape Rash 02/04/2024 Amoxicillin-Pot Clavulanate Abdominal Pain 02/02/2024 Aspirin Unknown High 02/04/2024 Bleeding Capsaicin Erythema 02/04/2024 Clavulanic Acid Abdominal Pain 02/04/2024 Hydrocodone Tachycardia High 02/04/2024 Heart races. Tolerates oxycodone ok. Ibuprofen Unknown 02/04/2024 bleeding Naproxen Other (see comments) 02/02/2024 Sulfamethoxazole-Trime thoprim Itching/Pruritus,Rash 02/04/2024 Tolmetin Unknown 02/04/2024 Medications * Be aware that medications may not be up to date as of this document. Always verify current medications with patient. Medication Sig Dispensed Refills Start Date End Date Status acyclovir (ZOVIRAX) 400 mg oral tablet Take 1 tablet (400 mg) by mouth 3 times daily.Take for 5 days with cold sore outbreak Suspended alendronate (FOSAMAX) 70 mg oral TABS Take 1 tablet (70 mg) by mouth every week. Suspended carboxymethylcell ulose sod PF 0.5 % ophthalmic solution Place 1-2 drops into BOTH eyes every 2 hours as needed for Dry Eyes. Suspended citalopram (CELEXA) 20 mg oral tablet Take 1 tablet (20 mg) by mouth every morning. Suspended cyanocobalamin (NERVIDOX S) 1000 mcg/mL Injection solution Inject 1 mL (1,000 mcg) into a muscle every 4 weeks. Suspended GABApentin (NEURONTIN) 600 mg oral TABS tablet Take 2 tablets (1,200 mg) by mouth 3 times daily. Suspended hydrocortisone 2.5% externally ointment Apply to skin twice daily. Suspended levothyroxine (SYNTHROID) 50 mcg oral tablet Take 1 tablet (50 mcg) by mouth daily before morning meal. Suspended oxybutynin (DITROPAN XL) 10 mg oral tablet 24 HR Take 1 tablet (10 mg) by mouth daily. Suspended HYDROcodone-aceta minophen (NORCO) 5-325 mg oral tablet Take 1 tablet by mouth 3 times daily as needed for Pain. 4 Discontinued(E rror) pantoprazole (PROTONIX) 40 mg oral tablet Take 1 tablet (40 mg) by mouth daily before morning meal. Suspended pramipexole (MIRAPEX) 0.5 mg oral TABS Take 1 tablet by mouth every morning and 2 tablet by mouth at bedtime Suspended spironolactone (ALDACTONE) 50 mg oral tablet Take 1 tablet (50 mg) by mouth every morning. Suspended thiamine (VITAMIN B1) 100 mg oral TABS Take 100 mg by mouth daily. Suspended traZODone (DESYREL) 100 mg oral tablet Take 1 tablet (100 mg) by mouth at bedtime. Suspended triamcinolone acetonide (KENALOG) 0.1% externally cream Apply to skin 3 times daily. Suspended polyethylene glycol 3350 (MIRALAX;GLYCOLAX ) 17 g oral powder Take 1 Tbsp (17 g) by mouth daily. Suspended furosemide (LASIX) 20 mg oral TABS Take 2 tablets (40 mg) by mouth every morning and 1 tablet (20 mg) by mouth at midday. Suspended potassium chloride (K-DUR) 20 meq oral tablet Take 1 tablet (20 mEq) by mouth 3 times daily. 4 Discontinued(E rror) bisacodyl (DULCOLAX) 10 mg rectal suppository 1 suppository (10 mg) by Rectal route daily as needed for Constipation. Suspended cetirizine (ZYRTEC) 10 mg oral tablet Take 1 tablet (10 mg) by mouth daily. Suspended oxyCODONE-acetami nophen (PERCOCET) 5-325 mg oral TABS Take 1 tablet by mouth every 8 hours as needed. Suspended potassium chloride (K-DINA) 20 mEq oral packet Take 1 packet (20 mEq) by mouth 3 times daily. Suspended Active Problems Problem Noted Date Diagnosed Date Other fracture of right femu r, initial encounter for closed fracture ([facility]) 02/02/2024 Encounters Date Type Department Care Team Description 02/05/2024 1:15 PM CDT - 02/05/2024 4:25 PM CDT Surgery OR P4 [address] [place] [address] Dayo Henning MD IM [facility] 02/05/2024 12:52 PM CDT Anesthesia Event OR P4 [address] [place] [address] Marcus Hanna MD Bagal, Kristi, SRNA 02/04/2024 2:00 PM CDT - 02/04/2024 4:57 PM CDT Surgery OR P4 [address] [place] [address] Homa Zarate MD Not Performed IM [facility] 02/04/2024 2:00 PM CDT Anesthesia Event OR P4 [address] [place] [address] Malcolm Hernandez, Michelle Pablo, PARENTING SKILLS INSTRUCTOR, AGRICULTURAL EXTENSION SPECIALIST 02/03/2024 Orders Only [facility] Film Room [facility] Radiology Department FRED [address] [place] [address] Provider, Outside Referral of patient (Primary Dx) 02/02/2024 3:17 PM CDT - Present Hospital Encounter [facility] Orthopaedic [address] [place] [address] Humphrey Rose MD Isaksen, Ann L, MD Adam, Bariituu I, MD Other fracture of right femur, initial encounter for closed fracture ([facility]) 02/02/2024 Travel 02/02/2024 Orders Only [facility] Film Room [facility] Radiology Department FRED [address] [place] [address] Provider, Outside Referral of patient (Primary Dx) 02/02/2024 Orders Only [facility] MRI [facility]4 [address] [place] [address] Provider, Outside from Last 3 Months Social History Tobacco Use Types Packs/Day Years Used Date Smoking Tobacco: Never Assessed Humiliation, Afraid, Rape, and Kick questionnair e Answer Date Recorded Within the last year, have y ou been afraid of your partner or ex-partner? No 02/02/2024 Within the last year, have y ou been humiliated or emotionally abused in other ways by your partner or ex-partner? No Within the last year, have y ou been kicked, hit, slapped, or otherwise physically hurt by your partner or ex-partner? No 02/02/2024 Within the last year, have y ou been raped or forced to have any kind of sexual activity by your partner or ex-partner? No 02/02/2024 Overall Financial Resource Strain (CARDIA) Answe r Date Recorded How hard is it for you to pa y for the very basics like food, housing, medical care, and heating? Not very hard 02/02/2024 Hunger Vital Sign Answer Date Recorded Within the past 12 months, y ou worried that your food would run out before you got the money to buy more. Never true 02/02/20 24 Within the past 12 months, t he food you bought just didn't last and you didn't have money to get more. Never true 02/02/2024 PRAPARE - Transportation Answer Date Re corded In the past 12 months, has l ack of transportation kept you from medical appointments or from getting medications? No 01/05 In the past 12 months, has l ack of transportation kept you from meetings, work, or from getting things needed for daily living? No 02/02/2024 Housing Stability Answer Date Recorded What is your housing situation today? 3 - I have housing 02/02/2024 Sex and Gender Information Value Date Recorded Sex Assigned at Not on file Gender Identity Not on file Sexual Orientation Not on file Last Filed Vital Signs Vital Sign Reading Time Taken Comments Blood Pressure 84/53 02/08/2024 4:00 PM CDT Pulse 84 02/08/2024 4:00 PM CDT Temperature 37.6 ??C (99.6 ??F) 02/08/2024 4:00 PM CD T Respiratory Rate 18 02/08/2024 4:00 PM CDT Oxygen Saturation 98% 02/08/2024 4:00 PM CDT Inhaled Oxygen Concentration - - Weight 98.4 kg (217 lb) 02/02/2024 11:39 PM CDT Height 172.7 cm (5' 8) 02/02/2024 11:39 PM CDT Body Mass Index 32.99 02/02/2024 11:39 PM CDT Plan of Treatment Upcoming Encounters Date Type Department Care Team (Late st Contact Info) Description 02/18/2024 11:20 AM CDT [facility] [address] [address] Lia Mcclellan PA-C [address] [facility] [address] [place] [address] Other, Veterinary Practice Manager [address] [place] [address] Scheduled Discharge Disposition: Discharged to home or self care (routine discharge) Health Maintenance Due Date Last Done Comments CT Colonography 1964 Colonoscopy 1964 Colorectal Cancer Screening 1964 Dental Oral Exam 1964 Dental Prophylaxis 1964 Dental X-Ray: Bitewings 1964 Depression Management 1964 FIT/Cologuard 1964 Hepatitis C Screening 1964 Sigmoidoscopy 1964 iFOB/FIT 1964 Diabetic Education Protocol (CDE) 1965 Diabetic Education 1965 Diabetic Eye Exam 1965 Diabetic Foot Exam 1965 Diabetic Lab Protocol 1965 Diabetic Microalbumin Screening 1965 Periodontal Maintenance 1978 HIV Screening 1979 PREVENTATIVE VISIT 1982 HEALTH MAINTENANCE PROTOCOL 1983 Hepatitis B Vaccines (1 of 3 - 19+ 3-dose series) 1983 Cervical Cancer Screening Age 30-65 1994 COVID-19 Vaccine ( season) 2023 09/04/2022, 03/17/2022, 09/09/2021, Additional history exists Diabetic HGB A1C Q 6 Months (Goal <7) 08/03/2024 02/02/2024, 09/11/2023, 03/03/2023, Additional history exists Medicare Annual Wellness 09/11/2024 023, 09/10/2022, 09/09/2021, Additional history exists Breast Cancer Screening 05/25/2025 05/25/2023 Lipid Screening 09/11/2028 09/11/2023, 12/0 04/2022, 09/02/2021 TD/TDAP ADULTS 09/02/2032 09/02/2022, 120 12/2011, 03/25/2004, Additional history exists Pneumococcal Vaccine: Pediatrics (0 to 5 Years) and At-Risk Patients (6 to 64 Years) Aged Out 10/06/2018, 04/02/2017 No longer eligibl e based on patient's age to complete this topic INFLUENZA VACCINE Completed 06/29/2023, , 07/09/2021, Additional history exists HIB Aged Out No longer eligi ble based on patient's age to complete this topic RSV Immunoglobulin Aged Out No longer eligible based on patient's age to complete this topic Medical Devices Implanted Type Area Pattern Developer Device Identifier Shelf Expiration Date Model / Serial / Lot Freehand Drill [id number] Implanted:Qty: 1 on 02/05/2024 by Dayo Henning MD at [facility] Drill bit/kiara Right: Femur [employer] 11/04/2033 [id number] S / / [id number] Femoral Nail Retrograde [id number] Implanted:Qty: 1 on 02/05/2024 by Dayo Henning MD at [facility] Branden Right: Femur [employer] 10/04/2033 [id number] S / / [id number] 5.0x60mm 2361-5060s Implanted:Qty: 1 on 02/05/2024 by Dayo Henning MD at [facility] Screw/Rudy t Right: Femur [employer] 06/04/2032 [id number] S / / [id number] 5.0x70mm [id number] Implanted:Qty: 1 on 02/05/2024 by Dayo Henning MD at [facility] Screw/Rudy t Right: Femur [employer] 09/03/2033 [id number] S / / [id number] 5.0x75mm Adv 2361-5075s Implanted:Qty: 1 on 02/05/2024 by Dyao Henning MD at [facility] Screw/Rudy t Right: Femur [employer] 09/03/2033 [id number] S / / [id number] 5.0x42.5mm [id number] Implanted:Qty: 1 on 02/05/2024 by Dayo Henning MD at [facility] Screw/Rudy t Right: Femur [employer] 10/04/2033 [id number] S / / [id number] Procedures The patient is currently admitted. The information in this section might not be complete until the patient is discharged. Procedure Name Priority Date/Time Associated Diagnosis Comments POC GLUCOSE Routine 02/08/2024 12:30 PM CDT IR PARACENTESIS Routine 02/08/2024 11:45 AM CDT PARACENTESIS Routine 02/08/2024 11:14 AM CDT PROTHROMBIN (PT) & INR Routine 8:19 AM CDT PANEL HEPATIC FUNCTION Routine 8:19 AM CDT PANEL BASIC METABOLIC (BMP) Routine 02/08/2024 8:19 AM CDT POC GLUCOSE Routine 02/07/2024 6:41 PM CDT POC GLUCOSE Routine 02/07/2024 12:24 PM CDT PHOSPHORUS Routine 02/07/2024 6:05 AM CDT MAGNESIUM Routine 02/07/2024 6:05 AM CDT PANEL HEPATIC FUNCTION Routine 6:05 AM CDT PC LAB CBC/PLT Routine 02/07/2024 6:05 AM CDT PANEL BASIC METABOLIC (BMP) Routine 02/07/2024 6:05 AM CDT POC GLUCOSE Routine 02/06/2024 6:08 PM CDT POC GLUCOSE Routine 02/06/2024 11:57 AM CDT PROTHROMBIN (PT) & INR Routine 7:10 AM CDT PANEL HEPATIC FUNCTION Routine 7:10 AM CDT PANEL BASIC METABOLIC (BMP) Routine 02/06/2024 7:10 AM CDT HEMOGLOBIN Routine 02/06/2024 7:10 AM CDT POC GLUCOSE Routine 02/06/2024 6:06 AM CDT POC GLUCOSE Routine 02/06/2024 12:09 AM CDT POC GLUCOSE Routine 02/05/2024 3:57 PM CDT XR C ARM OVER 3 HRS STAT 02/05/2024 3 :09 PM CDT XR FEMUR RIGHT AP + LAT* STAT 02/05/2024 3:09 PM CDT FRESH FROZEN PLASMA ADULT (BLOOD ADMIN) Routine 02/05/2024 1:19 PM CDT INTUBATION Routine 02/05/2024 1:11 PM CDT POC GLUCOSE Routine 02/05/2024 11:21 AM CDT WOUND CULTURE:GRAM STAIN OPTIONAL Routine 02/05/2024 10:00 AM CDT PROTHROMBIN (PT) & INR Routine 9:15 AM CDT PANEL HEPATIC FUNCTION Routine 9:15 AM CDT PC LAB CBC/PLT Routine 02/05/2024 9:15 AM CDT PANEL BASIC METABOLIC (BMP) Routine 02/05/2024 9:15 AM CDT POC GLUCOSE Routine 02/05/2024 6:02 AM CDT POC GLUCOSE Routine 02/04/2024 11:58 PM CDT PC CULTURE SPECIMEN, ANAEROBIC Routine 02/04/2024 10:44 PM CDT PC CULTURE,BACTERIAL,DEFI NITIVE,AEROBIC ANY SOURCE Routine 02/04/2024 10:44 PM CDT HELD MICRO SPECIMEN Routine 02/04/2024 1 0:44 PM CDT POC GLUCOSE Routine 02/04/2024 9:50 PM CDT PC CULTURE,BACTERIAL,DEFI SALAMATOF,AEROBIC;BLOOD Timed 02/04/2024 6:44 PM CDT PC CULTURE,BACTERIAL,DEFI SALAMATOF,AEROBIC;BLOOD Routine 02/04/2024 6:44 PM CDT POTASSIUM Timed 02/04/2024 1:17 PM CDT PC ANTIBODY SCREEN,RBC,EACH SERUM TECHNIQUE STAT 02/04/2024 1:17 PM CDT TC LAB BLOOD DRAW BY VENIPUNCTURE STAT 02/04/2024 1:17 PM CDT PROTHROMBIN (PT) & INR Routine 6:40 AM CDT PANEL HEPATIC FUNCTION Routine 4 6:40 AM CDT PC LAB CBC/PLT Routine 02/04/2024 6:40 AM CDT PANEL BASIC METABOLIC (BMP) Routine 02/04/2024 6:40 AM CDT PC CULTURE,BACTERIAL,DEFI SALAMATOF,AEROBIC;BLOOD Timed 02/03/2024 12:13 PM CDT PC CULTURE,BACTERIAL,DEFI SALAMATOF,AEROBIC;BLOOD Timed 02/03/2024 12:06 PM CDT PROTHROMBIN (PT) & INR Routine 8:03 AM CDT PANEL HEPATIC FUNCTION Routine 8:03 AM CDT PANEL BASIC METABOLIC (BMP) Routine 02/03/2024 8:03 AM CDT PC LAB CBC W/DIFF & PLT Routine 02/03/2024 8:[address] RIGHT FEMUR NO IV CONTRAST Routine 02/02/2024 10:19 PM CDT PF ABDOMINAL PARACENTESIS; W/O IMAGING GUIDANCE Routine 02/02/2024 10:03 PM CDT XR KNEE RIGHT 1 VIEW Routine 02/02/2024 9:37 PM CDT XR KNEE RIGHT 2 V AP/LAT STAT 02/02/2024 9:21 PM CDT XR C ARM XRAY ED EVALUATION Routine 02/02/2024 9:15 PM CDT SEDATION Routine 02/02/2024 8:44 PM CDT MISCELLANEOUS BODY FLUID Routine 02/02/2024 7:51 PM CDT PC CELL COUNT,MICS.BODY FLUIDS,EXCEPT BLOOD,W-DIFF. CT. STAT 02/02/2024 7:51 PM CDT PC CULTURE,BACTERIAL,DEFI NITIVE,AEROBIC ANY SOURCE STAT 02/02/2024 7:[address] ABDOMEN/PELVIS W/IV CON Routine 02/02/2024 6:50 PM CDT XR FOOT RIGHT 3 V AP/OBL/LAT* Routine 02/02/2024 6:03 PM CDT XR KNEE RIGHT 2 V AP/LAT Routine 02/02/2024 6:03 PM CDT XR PELVIS AP* Routine 02/02/2024 6:02 PM CDT XR FEMUR RIGHT AP + LAT* Routine 02/02/2024 6:01 PM CDT TC LAB ER STAT URINALYSIS STAT 02/02/2024 5:15 PM CDT URINE CULTURE Routine 02/02/2024 5:03 PM CDT PRECAUTIONARY TUBE STAT 02/02/2024 5: 00 PM CDT LIPASE STAT 02/02/2024 4:01 PM CDT PANEL HEPATIC FUNCTION STAT 4:01 PM CDT PC LACTATE (LACTIC ACID) STAT 02/02/2024 4:01 PM CDT PROTHROMBIN (PT) & INR STAT 4:01 PM CDT PC TROPONIN QUANTITATIVE STAT 02/02/2024 4:01 PM CDT PC LAB CBC W/DIFF & PLT STAT 02/02/2024 4:01 PM CDT PC ELECTROLYTES PANEL STAT 02/02/2024 4:01 PM CDT PC LAB GLYCOSYLATED HGB Routine 02/02/2024 4:00 PM CDT PC ANTIBODY SCREEN,RBC,EACH SERUM TECHNIQUE STAT 02/02/2024 4:00 PM CDT PC LAB RH TYPE GEL STAT 02/02/2024 4: 00 PM CDT PC LAB PTT Routine 02/02/2024 4:00 PM CDT ED EKG (12-LEAD) Routine 02/02/2024 3:48 PM CDT ED US ABDOMINAL/GALLBLADDER STAT 02/02/2024 3:40 PM CDT XR CHEST OUTSIDE FILMS Routine 12:30 PM CDT Referral of patient XR LOWER EXTREMITY OUTSIDE FILMS Routine 02/02/2024 12:15 PM CDT Referral of patient XR LOWER EXTREMITY OUTSIDE FILMS Routine 02/02/2024 11:25 AM CDT Referral of patient PANEL LIPID Routine 09/11/2023 9:11 AM [employer] PHOSPHORUS Routine 11/18/2002 7:35 AM [employer] from Last 3 Months or Most Recently Relevant to Health Maintenance Results * POC GLUCOSE (02/08/2024 12:30 PM CDT) Only the most recent of12 resultswithin the time period is included. POC Glucose 82 70 - 100 mg/dL [facility] Blood 02/08/2024 12:3 0 PM CDT Humphrey Rose MD LABORATORY [facility] [address] [place] [address], * IR PARACENTESIS (02/08/2024 11:45 AM CDT) Anatomical Region Laterality Modality Abdomen X-Ray Angiograph y 02/08/2024 11:3 9 AM CDT Impressions 02/08/2024 11:40 AM CDT Impression: Ultrasound-guided paracentesis as above. Reading Radiologist: Coco Buckley Narrative 02/08/2024 11:40 AM CDT Indication: Ascites Procedure: The risks and benefits of the procedure were explained to the patient. Discussed that risks include but are not limited to bleeding, infection, unintended puncture of surrounding structure/vessel/organ, and hypotension. Patient voiced agreement and understanding, and wishes to proceed. Informed consent was obtained. The patient was placed supine on a hospital cart. Ultrasound was used to interrogate the abdomen. A large amount of ascites was seen. The right lower quadrant was then prepped and draped in usual sterile fashion. 1% lidocaine was used for local anesthesia. Under ultrasound guidance, a one step needle was advanced into the fluid. An image was archived. A total of 4.0 liters of straw-colored ascitic fluid was aspirated and discarded. The catheter was then removed. Patient tolerated the procedure without any immediate complications. Per protocol, the patient received 12.5 grams of albumin during and after the procedure. Complications: None. Procedure Note Coco Buckley PA-C - 02/08/2024 Indication: Ascites Procedure: The risks and benefits of the procedure were explained to thepatient. Discussed that risks include but are not limited to bleeding,infection, unintended puncture of surrounding structure/vessel/organ, andhypotension. Patient voiced agreement and understanding, and wishes toproceed. Informed consent was obtained. The patient was placed supine on a hospital cart. Ultrasound was used tointerrogate the abdomen. A large amount of ascites was seen. The rightlower quadrant was then prepped and draped in usual sterile fashion. 1%lidocaine was used for local anesthesia. Under ultrasound guidance, a one step needle was advanced into the fluid.An image was archived. A total of 4.0 liters of straw-colored asciticfluid was aspirated and discarded. The catheter was then removed. Patienttolerated the procedure without any immediate complications. Per protocol, the patient received 12.5 grams of albumin during and afterthe procedure. Complications: None. IMPRESSION Impression: Ultrasound-guided paracentesis as above. Reading Radiologist: Coco Buckley [facility] Shira Jerome MD RAD IR * Paracentesis (02/08/2024 11:14 AM CDT) Narrative Coco Buckley PA-C - 02/08/2024 11:14 AM CDT Coco Buckley PA-C ? 02/08/2024 11:41 AM Paracentesis Date/Time: 02/08/2024 11:14 AM Performed by: Coco Buckley PA-C Authorized by: Coco Buckley PA-C ??Consent: Verbal consent obtained. Written consent obtained. Risks and benefits: risks, benefits and alternatives were discussed Consent given by: patient Patient understanding: patient states understanding of the procedure being performed Patient consent: the patient's understanding of the procedure matches consent given Procedure consent: procedure consent matches procedure scheduled Relevant documents: relevant documents present and verified Site marked: the operative site was marked Imaging studies: imaging studies available Required items: required blood products, implants, devices, and special equipment available Patient identity confirmed: verbally with patient, arm band and hospital-assigned identification number Time out: Immediately prior to procedure a time out was called to verify the correct patient, procedure, equipment, patient support associate and site/side marked as required. Initial or subsequent exam: subsequent Procedure purpose: therapeutic Indications: abdominal discomfort secondary to ascites Anesthesia: local infiltration Anesthesia: Local Anesthetic: lidocaine 1% without epinephrine Anesthetic total: 10 mL Sedation: Patient sedated: no Preparation: Patient was prepped and draped in the usual sterile fashion. Ultrasound guidance: yes Puncture site: right lower quadrant Fluid removed: 4000(ml) Fluid appearance: clear Patient tolerance: Patient tolerated the procedure well with no immediate complications Comments: Indication: AscitesProcedure: The risks and benefits of the procedure were explained to the patient. Discussed that risks include but are not limited to bleeding, infection, unintended puncture of surrounding structure/vessel/organ, and hypotension. Patient voiced agreement and understanding, and wishes to proceed. Informed consent was obtained. The patient was placed supine on a hospital cart. Ultrasound was used to interrogate the abdomen. A large amount of ascites was seen. The right lower quadrant was then prepped and draped in usual sterile fashion. 1% lidocaine was used for local anesthesia.Under ultrasound guidance, a one step needle was advanced into the fluid. An image was archived. A total of 4.0 liters of straw-colored ascitic fluid was aspirated and discarded. The catheter was then removed. Patient tolerated the procedure without any immediate complications. Per protocol, the patient received 12.5 grams of albumin during and after the procedure.Complications: None. Impression: Ultrasound-guided paracentesis as above. Coco Buckley PA-C PROCEDURES * (ABNORMAL) PROTHROMBIN (PT) & INR (02/08/2024 8:19 AM CDT) Only the most recent of6 resultswithin the time period is included. PT 29.3(H) 9.0 - 12.5 sec [facility] INR 2.6(H) 0.8 - 1.1 [facility] Comment: Warfarin Therapeutic Range: Standard Intensity: 2.0 - 3.0 High Intensity: 2.5 - 3.5 Blood 02/08/2024 8:19 AM CDT 02/08/2024 8:35 AM CDT Autumn Jerome MD LABORATORY [facility] [address] [address] * (ABNORMAL) PANEL BASIC METABOLIC (BMP) (02/08/2024 8:19 AM CDT) Only the most recent of6 resultswithin the time period is included. Sodium 134(L) 135 - 148 mEq/L [facility] Potassium 3.8 3.5 - 5.3 mEq/L [facility] CO2 29 22 - 30 mEq/L [facility] AnGap 5(L) 8 - 16 mEq/L [facility] Glucose 91 70 - 100 mg/dL [facility] BUN 9 6 - 20 mg/dL [facility] Creatinine 0.59 0.50 - 1.00 mg/dL [facility] Chloride 100 92 - 108 mEq/L [facility] Calcium 8.1(L) 8.6 - 10.0 mg/dL [facility] eGFR (2020 CKD-EPI) 104 >=60 ml/min/1.7 3m2 [facility] Comment: The estimated glomerular filtration rate (eGFR) was calculated using the CKD-EPI 2020 creatinine equation, which does not include race as a factor. This equation is validated in individuals 18 years of age and older, and eGFR is normalized to a body surface area of 1.73m^2. Blood 02/08/2024 8:19 AM CDT 02/08/2024 8:35 AM CDT Autumn Jerome MD LABORATORY Performing Organization Address [facility] Co de Phone Number [facility] [address] [address] * (ABNORMAL) PANEL HEPATIC FUNCTION (02/08/2024 8:19 AM CDT) Only the most recent of7 resultswithin the time period is included. Total Protein 6.1(L) 6.4 - 8.3 g/dL [facility] Albumin 2.5(L) 3.8 - 5.1 g/dL [facility] Bili Total 1.0 <=1.2 mg/dL [facility] Bili Direct 0.5(H) <=0.3 mg/dL [facility] Alk Phos 125(H) 35 - 104 IU/L [facility] Comment:No reference range e stablished for patients <18 years old. ALT (SGPT) 6 <=33 IU/L [facility] AST(SGOT) 30 5 - 40 IU/L [facility] Blood 02/08/2024 8:19 AM CDT 02/08/2024 8:35 AM CDT Autumn Jerome MD LABORATORY Performing Organization Address [facility] Co de Phone Number [facility] [address] [address] * PHOSPHORUS (02/07/2024 6:05 AM CDT) Only the most recent of2 resultswithin the time period is included. Phosphorus 3.2 2.5 - 4.5 mg/dL [facility] Blood 02/07/2024 6:05 AM CDT 02/07/2024 7:28 AM CDT Autumn Jerome MD LABORATORY Performing Organization Address City/[facility]/ZIP Co de Phone Number [facility] [address] [address] * MAGNESIUM (02/07/2024 6:05 AM CDT) Magnesium 2.0 1.6 - 2.6 mg/dL [facility] Blood 02/07/2024 6:05 AM CDT 02/07/2024 7:28 AM CDT Autumn Jerome MD LABORATORY Performing Organization Address [facility] Co de Phone Number [facility] [address] [address] * (ABNORMAL) CBC WITH PLATELET (02/07/2024 6:05 AM CDT) Only the most recent of3 resultswithin the time period is included. WBC 9.53 4.00 - 10.00 k/cmm [facility] RBC 3.19(L) 3.90 - 5.20 m/cmm [facility] Hgb 9.5(L) 11.5 - 15.7 g/dL [facility] Hematocrit 29.8(L) 34.0 - 45.0 % [facility] MCV 93.4 80.0 - 100.0 fL [facility] MCH 29.8 25.0 - 32.0 pg [facility] MCHC 31.9 31.0 - 36.0 g/dL [facility] RDW 13.7 11.5 - 14.5 % [facility] Plt 149(L) 150 - 400 k/cmm [facility] MPV 11.1 6.5 - 12.5 fL [facility] NRBC 0.3(H) 0.0 - 0.0 /100WBC [facility] Blood 02/07/2024 6:05 AM CDT 02/07/2024 7:26 AM CDT Autumn Jerome MD LABORATORY Performing Organization Address City/[facility]/ZIP Co de Phone Number [facility] [address] [address] * (ABNORMAL) HEMOGLOBIN (02/06/2024 7:10 AM CDT) Hgb 8.8(L) 11.5 - 15.7 g/dL [facility] Blood 02/06/2024 7:10 AM CDT 02/06/2024 7:28 AM CDT Lia Mcclellan PA-C LABORATORY [facility] [address] [place] [address] * XR FEMUR RIGHT AP + LAT* (02/05/2024 3:09 PM CDT) Only the most recent of2 resultswithin the time period is included. Anatomical Region Laterality Modality Upper Leg Radio Fluoroscop y 02/05/2024 3:44 PM CDT Impressions 02/05/2024 4:16 PM CDT Impression: Spot films and fluoroscopy time provided to the OR. I have personally reviewed the image(s) and initial interpretation, and I agree with the findings as documented by the resident/fellow. Reading Radiologist: Landon Mitchell Reading Resident: Rehan Zapata 02/05/2024 4:16 PM CDT Technique: XR FEMUR RIGHT AP + LAT* Indication:Right femur branden placement. Comparison:AP and lateral views of the right femur dated 02/02/2024. Fluoroscopy time:3.2 minutes Dose:10.2 mGy Findings: Fluoroscopy time and spot-film imaging was provided to the OR. Spot images show interval placement of a retrograde intramedullary branden within the right femur. Alignment at the fracture site has improved. Stable appearance of the TKA components without signs of loosening. No radiologist was present. Procedure Note Landon Mitchell MBBS - 02/05/2024 Technique: XR FEMUR RIGHT AP + LAT* Indication:Right femur branden placement. Comparison:AP and lateral views of the right femur dated 02/02/2024. Fluoroscopy time:3.2 minutes Dose:10.2 mGy Findings: Fluoroscopy time and spot-film imaging was provided to the OR.Spot images show interval placement of a retrograde intramedullary rodwithin the right femur. Alignment at the fracture site has improved.Stable appearance of the TKA components without signs of loosening. Noradiologist was present. IMPRESSION Impression: Spot films and fluoroscopy time provided to the OR. I have personally reviewed the image(s) and initial interpretation, and Iagree with the findings as documented by the resident/fellow. Reading Radiologist: Landon Mitchell Reading Resident: Rehan Zapata Dayo Henning MD RAD XRAY * XR C ARM OVER 3 HRS (02/05/2024 3:09 PM CDT) Dayo Henning MD RAD FLUORO * FRESH FROZEN PLASMA ADULT (BLOOD ADMIN) (02/05/2024 1:19 PM CDT) Unit Number [id number] [facility] Product Code [id number] [facility] Blood Expiration Date [id number] [facility] Blood Type 6200 [facility] Blood Type (TEXT) APOS [facility] Other 02/05/2024 1:19 PM CDT 02/05/2024 1:16 PM CDT Marcus Hanna MD BLOOD BANK ORDERABLE S (BLOOD ADMIN) [facility] [address] [address] * Intubation/Airway (02/05/2024 1:11 PM CDT) Narrative eCly Friend APRN, CRNA - 02/05/2024 1:11 PM CDT Cely Friend APRN, CRNA ? 02/05/2024 ??1:11 PM AIRWAY/INTUBATION PROCEDURE direct laryngoscopy ??(Type: Surgical Anesthesia) Process/Method: sedated and paralyzed ?? Indications for procedure: surgery Assessment: TMD >3 finger breadths and vocal cords open and clear Preoxygenation: mask Device Device used: Mendez Supporting device: ?? Blade size: 2 The patient was intubated with a 7.0 mm standard endotracheal tube inflated to seal and secured at 21 cm to Lips Grade: II Sellicks not used Narrative 1 intubation attempt(s) confirmed in 0-30 sec ?? Intubation Assessment: +ETCO2, EBBS and fog in ETT Ease of masking (I-easy to IV-difficult): I Ease of intubation (I-easy to IV-difficult): I Dentition Assessment: poor dentition, dentition unchanged and oral mucosa unchanged Performed by: AGRICULTURAL EXTENSION SPECIALIST: Cely Friend APRN, AGRICULTURAL EXTENSION SPECIALIST Events Anesthesia start: 02/05/2024 12:52 PM Intubation time: 02/05/2024 12:59 PM Marcus Hanna MD PROCEDURES * WOUND CULTURE:GRAM STAIN OPTIONAL (02/05/2024 10:00 AM CDT) Only the most recent of2 resultswithin the time period is included. Final Report Duplicate order. Patient account credited. [facility] Gram Stain Report Few PMN's seen. No organisms seen. [facility] Swab STRUCTURE OF RIGHT FOOT / Unknown 02/05/2024 10:00 AM CDT 02/05/2024 10:25 AM CDT Narrative [facility] - 02/05/2024 2:53 PM CDT Purulent drainage. Gram Stain please, aerobic, anaerobic Do you want a gram stain: Yes Autumn Jerome MD LAB MICROBIOLOGY [facility] [address] [address] * HELD MICRO SPECIMEN (02/04/2024 10:44 PM CDT) Final Report Microbiology specimen received in lab with no orders. Add-on order must be placed within 24 hours. If no orders placed, specimen will be discarded. [facility] Swab STRUCTURE OF RIGHT FOOT / Unknown 02/04/2024 10:44 PM CDT 02/04/2024 10:45 PM CDT Narrative [facility] - 02/04/2024 10:46 PM CDT Epic message sent to Autumn Jerome at 02/04/2024 22:46:13 CDT by Solitario Mckinnon MLS. Autumn Jerome MD LAB MICROBIOLOGY Performing Organization Address City/[facility]/ZIP Co de Phone Number [address] [address] * POTASSIUM (02/04/2024 1:17 PM CDT) Potassium 4.3 3.5 - 5.3 mEq/L [facility] Blood 02/04/2024 1:17 PM CDT 02/04/2024 1:33 PM CDT Autumn Jerome MD LABORATORY Performing Organization Address [facility] Co de Phone Number [facility] [address] [address] * ANTIBODY SCREEN (02/04/2024 1:17 PM CDT) Only the most recent of2 resultswithin the time period is included. Nicky Screen Negative [facility] Blood 02/04/2024 1:17 PM CDT 02/04/2024 1:34 PM CDT Solitario Ha APRN, CRNA LAB TRANSFUSI ON SERVICES Performing Organization Address [facility] Co de Phone Number [address] [address] * BLOOD TYPING-ABO/RH (02/04/2024 1:17 PM CDT) Only the most recent of2 resultswithin the time period is included. ABORHG A POS [facility] Blood 02/04/2024 1:17 PM CDT 02/04/2024 1:34 PM CDT Solitario Ha APRN, CRNA LAB TRANSFUSI ON SERVICES Performing Organization Address City/[facility]/ZIP Co de Phone Number [facility] [address] [address] * (ABNORMAL) CBC WITH PLTS/AUTO DIFF (02/03/2024 8:03 AM CDT) Only the most recent of2 resultswithin the time period is included. WBC 5.74 4.00 - 10.00 k/cmm [facility] RBC 3.08(L) 3.90 - 5.20 m/cmm [facility] Hgb 9.4(L) 11.5 - 15.7 g/dL [facility] Hematocrit 28.1(L) 34.0 - 45.0 % [facility] MCV 91.2 80.0 - 100.0 fL [facility] MCH 30.5 25.0 - 32.0 pg [facility] MCHC 33.5 31.0 - 36.0 g/dL [facility] RDW 13.6 11.5 - 14.5 % [facility] Plt 155 150 - 400 k/cmm [facility] MPV 10.6 6.5 - 12.5 fL [facility] Automated Abs Neutrophil 4.49 1.70 - 6.50 k/cmm [facility] Comment:Preliminary ANC, Fin al Result to Follow Abs Immature Granulocyte 0.02 0.00 - 0.09 k/cmm [facility] Comment:The Immature Granulo cyte Absolute count contains metamyelocytes and myelocytes. Abs Neutrophil 4.49 1.70 - 6.50 k/cmm [facility] Abs Lymphocyte 0.69(L) 0.80 - 4.00 k/cmm [facility] Abs Monocyte 0.53 0.20 - 1.00 k/cmm [facility] Abs Eosinophil 0.00 0.00 - 0.60 k/cmm [facility] Abs Basophil 0.01 0.00 - 0.20 k/cmm [facility] Blood 02/03/2024 8:03 AM CDT 02/03/2024 8:48 AM CDT Enedina Austin MD LABORATORY [facility] [address] [place] [id number] * CT RIGHT FEMUR NO IV CONTRAST (02/02/2024 10:19 PM CDT) Anatomical Region Laterality Modality Lower Extremity Computed Tomogra phy 02/02/2024 10:1 4 PM CDT Addenda Addendum by Carter Reyes MD on 02/02/2024 10:29 PM CDT ADDENDUM: 3-D reconstructions were created by the architectural technologist on the CT scanner and reviewed by the radiologist. Images were archived in PACS. Reading Radiologist: Carter Reyes Impressions 02/02/2024 10:16 PM CDT IMPRESSION: 1. Acute displaced angulated periprosthetic fracture of the right mid to distal femur. 2. Traction within the right proximal tibia. Reading Radiologist: Carter Reyes Narrative 02/02/2024 10:16 PM CDT Indication: Fracture Comparison: X-ray 02/02/2024, CT abdomen pelvis 02/02/2024 Technique: CT of the right femur without intravenous contrast. FINDINGS: A traction pin is identified within the right proximal tibia. Postsurgical changes from right total knee arthroplasty. Acute displaced angulated periprosthetic fracture of the right mid to distal femur. Soft tissue swelling throughout the right lower extremity. Incidental note of a 3.3 cm lipoma within the right rectus femoris muscle. Please see same-day CT abdomen pelvis report for findings within the abdomen and pelvis. Procedure Note Carter Reyes MD - 02/02/2024 Indication: Fracture Comparison: X-ray 02/02/2024, CT abdomen pelvis 02/02/2024 Technique: CT of the right femur without intravenous contrast. FINDINGS: A traction pin is identified within the right proximal tibia. Postsurgicalchanges from right total knee arthroplasty. Acute displaced angulatedperiprosthetic fracture of the right mid to distal femur. Soft tissue swelling throughout the right lower extremity. Incidental note of a 3.3 cm lipoma within the right rectus femorismuscle. Please see same-day CT abdomen pelvis report for findings within theabdomen and pelvis. IMPRESSION IMPRESSION: 1. Acute displaced angulated periprosthetic fracture of the right mid todistal femur. 2. Traction within the right proximal tibia. Reading Radiologist: Carter Reyes Humphrey Rose MD RAD CT BODY * PF ABDOMINAL PARACENTESIS; W/O IMAGING GUIDANCE (02/02/2024 10:03 PM CDT) Narrative Humphrey Rose MD - 02/02/2024 10:03 PM CDT Humphrey Rose MD ? 02/02/2024 10:12 PM Paracentesis Performed by: Cooper Loaiza MD Authorized by: Humphrey Rose MD ?? Consent: ??Consent obtained: ??Verbal ??Consent given by: ??Patient ??Risks discussed: ??Bleeding, bowel perforation and infection ??Alternatives discussed: ??No treatment [place] protocol: ??Patient identity confirmed: ??Verbally with patient Pre-procedure details: ??Procedure purpose: diagnostic and therpeutic. ??Preparation: Patient was prepped and draped in usual sterile fashion ?? Anesthesia: ??Anesthesia method: ??Local infiltration ??Local anesthetic: ??Lidocaine 1% w/o epi Procedure details: ??Needle gauge: 15. ??Puncture site: ??R lower quadrant ??Fluid removed amount: ??4 L ??Fluid appearance: ??Sada ??Dressing: ??Adhesive bandage Post-procedure details: ??Procedure completion: ??Tolerated well, no immediate complications Humphrey Rose MD PROCEDURES * XR KNEE RIGHT 1 VIEW (02/02/2024 9:37 PM CDT) Anatomical Region Laterality Modality Lower Extremity Computed Radiogr aphy 02/02/2024 9:47 PM CDT Addenda Addendum by Carter Reyes MD on 02/03/2024 9:55 AM CDT ADDENDUM: Fluoroscopy time is 11.1 seconds. Fluoroscopy dose is 0.55 mGy. Reading Radiologist: Carter Reyes Impressions 02/02/2024 9:48 PM CDT IMPRESSION: Fluoroscopic images are submitted demonstrating traction pin placement in the proximal tibia. Reading Radiologist: Carter Reyes Narrative 02/02/2024 9:48 PM CDT Indication: Right traction pin placement ?? Comparison: None FINDINGS: Fluoroscopic images are submitted demonstrating traction pin placement in the proximal tibia. Procedure Note Carter Reyes MD - 02/02/2024 Indication: Right traction pin placement Comparison: None FINDINGS: Fluoroscopic images are submitted demonstrating traction pinplacement in the proximal tibia. IMPRESSION IMPRESSION: Fluoroscopic images are submitted demonstrating traction pinplacement in the proximal tibia. Reading Radiologist: Carter Reyes Humphrey Rose MD RAD XRAY * XR KNEE RIGHT 2 V AP/LAT (02/02/2024 9:21 PM CDT) Only the most recent of2 resultswithin the time period is included. Anatomical Region Laterality Modality Lower Extremity Computed Radiogr aphy 02/02/2024 9:24 PM CDT Impressions 02/02/2024 9:30 PM CDT IMPRESSION: X-rays obtained in traction demonstrate mildly improved alignment of displaced angulated periprosthetic distal femur fracture. Reading Radiologist: Carter Reyes Narrative 02/02/2024 9:30 PM CDT Indication: post traction ?? Comparison: X-ray 02/02/2024 FINDINGS: X-rays obtained in traction demonstrate mildly improved alignment of displaced angulated periprosthetic distal femur fracture. Procedure Note Carter Reyes MD - 02/02/2024 Indication: post traction Comparison: X-ray 02/02/2024 FINDINGS: X-rays obtained in traction demonstrate mildly improvedalignment of displaced angulated periprosthetic distal femur fracture. IMPRESSION IMPRESSION: X-rays obtained in traction demonstrate mildly improvedalignment of displaced angulated periprosthetic distal femur fracture. Reading Radiologist: Carter Reyes Humphrey Rose MD RAD XRAY * XR C ARM XRAY ED EVALUATION (02/02/2024 9:15 PM CDT) Humphrey Rose MD RAD FLUORO * MISCELLANEOUS BODY FLUID (02/02/2024 7:51 PM CDT) [facility] Result 1.3 [facility] Units BF g/dL [facility] Comment:The reference interv al(s) and other method performance specifications have not been established for this body fluid. The test result must be integrated into the clinical context for interpretation. Fluid 02/02/2024 7:51 PM CDT 02/02/2024 8:11 PM CDT Narrative [facility] - 02/02/2024 9:01 PM CDT fluid: Peritoneal Test: TP Humphrey Rose MD LABORATORY Performing Organization Address City/[facility]/ZIP Co de Phone Number [facility] [address] [address] * BODY FLUID CELL COUNT/DIFF (02/02/2024 7:51 PM CDT) Fluid Type PT Peritoneal [facility] Comment:Normal reference ran ges have not been determined; clinical correlation is recommended. Volume PT Fluid 40 mL [facility] Appearance PT Hazy [facility] Color bf Yellow [facility] Rbc PT Fluid <1,000 cells/ul [facility] Nuc Ct PT Fluid 93 cells/ul [facility] Neutrophil PT Fluid 2 % [facility] Lymphocytes PT Fluid 19 % [facility] Basophil PT Fluid 1 % [facility] MONO/MACS FL 53 % [facility] Other PT Fluid 25 % [facility] Comment:Others are mesotheli al cells. Peritoneal Fluid 02/02/2024 7:51 PM CDT 02/02/2024 7:57 PM CDT Humphrey Rose MD LABORATORY Performing Organization Address [facility] Co de Phone Number [facility] [address] [address] * BODY FLUID CULTURE:INCLUDES GRAM STAIN (02/02/2024 7:51 PM CDT) Final Report No growth. [facility] Gram Stain Report PMN's seen. No organisms seen. [facility] Peritoneal Fluid PERITONEUM (SEROUS MEMBRANE) STRUCTURE / Unknown 02/02/2024 7:51 PM CDT 02/02/2024 8:04 PM CDT Humphrey Rose MD LAB MICROBIOLO GY Performing Organization Address City/[facility]/ZIP Co de Phone Number [facility] [address] [address] * CT ABDOMEN/PELVIS W/IV CON (02/02/2024 6:50 PM CDT) Anatomical Region Laterality Modality Abdomen, Pelvis Computed Tomogra phy 02/02/2024 6:58 PM CDT Impressions 02/02/2024 7:09 PM CDT IMPRESSION: 1. The sigmoid colon is significantly distended to 11 cm, sigmoid volvulus cannot be excluded. No free air to suggest perforation. No prior images are available for comparison, it is unclear if the sigmoid colon distention is an acute or chronic finding. 2. Cirrhotic liver with evidence of portal hypertension including splenomegaly and a large amount of ascites. 3. Cholelithiasis. 4. Subtle curvilinear sclerosis within the right femoral head abutting the articular surface, suggestive of mild avascular necrosis Reading Radiologist: Carter Reyes 02/02/2024 7:09 PM CDT Indication: colonic dilation ?? Comparison: Pelvis x-ray 02/02/2024 Technique: CT of the abdomen and pelvis with IV contrast. FINDINGS: Mild bibasilar atelectasis. Nodular contour of the liver, consistent with cirrhosis. Evidence of portal hypertension, including splenomegaly, spleen measures 16.8 cm. Large amount of ascites throughout the abdomen and pelvis. Pancreas is unremarkable. Adrenals are unremarkable. Kidneys are unremarkable. Urinary bladder is decompressed by Cano catheter, there is extensive gas within the urinary bladder lumen. No abdominal aortic aneurysm. Atherosclerotic calcifications of the aorta and its branches. The sigmoid colon is significantly distended to 11 cm. No small bowel distention. No free intraperitoneal air. Partially visualized postsurgical changes in the left proximal femur. Subtle curvilinear sclerosis within the right femoral head abutting the articular surface, suggestive of mild avascular necrosis. Multiple chronic appearing compression fractures throughout the thoracic and lumbar spine. Procedure Note Carter Reyes MD - 02/02/2024 Indication: colonic dilation Comparison: Pelvis x-ray 02/02/2024 Technique: CT of the abdomen and pelvis with IV contrast. FINDINGS: Mild bibasilar atelectasis. Nodular contour of the liver, consistent with cirrhosis. Evidence ofportal hypertension, including splenomegaly, spleen measures 16.8 cm.Large amount of ascites throughout the abdomen and pelvis. Pancreas is unremarkable. Adrenals are unremarkable. Kidneys areunremarkable. Urinary bladder is decompressed by Cano catheter, there isextensive gas within the urinary bladder lumen. No abdominal aorticaneurysm. Atherosclerotic calcifications of the aorta and its branches. The sigmoid colon is significantly distended to 11 cm. No small boweldistention. No free intraperitoneal air. Partially visualized postsurgical changes in the left proximal femur.Subtle curvilinear sclerosis within the right femoral head abutting thearticular surface, suggestive of mild avascular necrosis. Multiple chronicappearing compression fractures throughout the thoracic and lumbarspine. IMPRESSION IMPRESSION: 1. The sigmoid colon is significantly distended to 11 cm, sigmoid volvuluscannot be excluded. No free air to suggest perforation. No prior imagesare available for comparison, it is unclear if the sigmoid colondistention is an acute or chronic finding. 2. Cirrhotic liver with evidence of portal hypertension includingsplenomegaly and a large amount of ascites. 3. Cholelithiasis. 4. Subtle curvilinear sclerosis within the right femoral head abutting thearticular surface, suggestive of mild avascular necrosis Reading Radiologist: Carter Reyes Humphrey Rose MD RAD CT BODY * XR FOOT RIGHT 3 V AP/OBL/LAT* (02/02/2024 6:03 PM CDT) Anatomical Region Laterality Modality Foot Computed Radiogr aphy 02/02/2024 6:32 PM CDT Impressions 02/02/2024 6:33 PM CDT IMPRESSION: 1. A 4 mm foreign body is identified within the plantar soft tissues of the second toe. 2. No definitive bony cortical destruction is identified to suggest osteomyelitis. 3. Significant soft tissue swelling throughout the foot. Reading Radiologist: Carter Reyes Narrative 02/02/2024 6:33 PM CDT Indication: fall to eval for injury but also r foot ulcer evaluating for signs of osteo; R lateral plantar surface near 5th metatarsal ?? Comparison: None FINDINGS: Extensive postsurgical changes from fusion throughout the midfoot. No definitive bony cortical destruction is identified to suggest osteomyelitis. Significant soft tissue swelling throughout the foot. A 4 mm foreign body is identified within the plantar soft tissues of the second toe. Procedure Note Carter Reyes MD - 02/02/2024 Indication: fall to eval for injury but also r foot ulcer evaluating forsigns of osteo; R lateral plantar surface near 5th metatarsal Comparison: None FINDINGS: Extensive postsurgical changes from fusion throughout themidfoot. No definitive bony cortical destruction is identified to suggestosteomyelitis. Significant soft tissue swelling throughout the foot. A 4mm foreign body is identified within the plantar soft tissues of thesecond toe. IMPRESSION IMPRESSION: 1. A 4 mm foreign body is identified within the plantar soft tissues ofthe second toe. 2. No definitive bony cortical destruction is identified to suggestosteomyelitis. 3. Significant soft tissue swelling throughout the foot. Reading Radiologist: Carter Reyes Humphrey Rose MD RAD XRAY * XR PELVIS AP* (02/02/2024 6:02 PM CDT) Anatomical Region Laterality Modality Pelvis Computed Radiogr aphy 02/02/2024 6:33 PM CDT Impressions 02/02/2024 6:34 PM CDT IMPRESSION: 1. Severe gaseous distention of the partially visualized colon with loops of bowel measuring up to 20 cm. Colonic volvulus / large bowel obstruction cannot be excluded. Recommend CT of the abdomen and pelvis with IV contrast for further evaluation. 2. No acute pelvic fracture is identified. Reading Radiologist: Carter Reyes Narrative 02/02/2024 6:34 PM CDT Indication: fall; leg injury, fell onto backside ?? Comparison: None FINDINGS: Severe gaseous distention of the partially visualized colon with loops of bowel measuring up to 20 cm. No acute pelvic fracture is identified. Procedure Note Carter Reyes MD - 02/02/2024 Indication: fall; leg injury, fell onto backside Comparison: None FINDINGS: Severe gaseous distention of the partially visualized colon withloops of bowel measuring up to 20 cm. No acute pelvic fracture isidentified. IMPRESSION IMPRESSION: 1. Severe gaseous distention of the partially visualized colon with loopsof bowel measuring up to 20 cm. Colonic volvulus / large bowel obstructioncannot be excluded. Recommend CT of the abdomen and pelvis with IVcontrast for further evaluation. 2. No acute pelvic fracture is identified. Reading Radiologist: Carter Reyes Humphrey Rose MD RAD XRAY * (ABNORMAL) URINALYSIS,TOTAL (02/02/2024 5:15 PM CDT) Color YELLOW YELLOW [facility] Appearance CLOUDY(A) CLEAR [facility] Urine Glucose NEGATIVE NEGATIVE mg/dL [facility] Bili UA TRACE(A) NEGATIVE [facility] Ketones TRACE(A) NEGATIVE [facility] Specific Gordon 1.024 1.003 - 1.030 [facility] Blood Ur LARGE(A) Neg-Trace [facility] PH Urine 6.0 5.0 - 7.0 [facility] Protein Ur 30(A) Neg-Trace [facility] Urobilinogen >=8(A) NORMAL EU/dL [facility] Nitrite Ur NEGATIVE NEGATIVE [facility] Leuk Est SMALL(A) Neg-Trace [facility] WBC Ur 6-10(A) 0 - 5 perHPF [facility] RBC Ur >20(A) 0 - 3 perHPF [facility] SQ EPITH 0-5 0 - 5 perHPF [facility] Bacteria UA PRESENT [facility] Comment:Presence of bacteria does not necessarily indicate a UTI. The presence of bacteria can indicate a non-clean catch urine specimen. Bacteria should be used in conjunction with other UA results and clinical presentation to assist in diagnosing an infection. Urinalysis Performed at: [facility] Urine 02/02/2024 5:15 PM CDT 02/02/2024 5:18 PM CDT Humphrey Rose MD LABORATORY [facility] [address] [address] * (ABNORMAL) URINE CULTURE (02/02/2024 5:03 PM CDT) Urine Cult Greater than 100,000 organisms/ml Escherichia coli isolated.(POS) [facility] Organism ESCHERICHIA COLI(POS) [facility] Urine 02/02/2024 5:03 PM CDT 02/02/2024 10:04 PM CDT Narrative Organism Antibiotic Method Susceptibility Escherichia coli Ampicillin VITEK DAKSHA 8: Sensitive Escherichia coli Ampicillin/Sulbactam VITEK DAKSHA <=2: Sensitive Escherichia coli Aztreonam VITEK DAKSHA <=1: Sensitive Escherichia coli Cefazolin (urine) VITEK DAKSHA <=4: Sensitive Comment:Uncomplicate d UTIs due to E. coli, K. pneumoniae and P. mirabilis can be treated with oral cephalosporins if they are cefazolin susceptible. Escherichia coli Cefepime VITEK DAKSHA <=1: Sensitive Escherichia coli Ceftriaxone VITEK DAKSHA <=1: Sensitive Escherichia coli Ertapenem VITEK DAKSHA <=0.5: Sensitive Escherichia coli Gentamicin VITEK DAKSHA <=1: Sensitive Escherichia coli Levofloxacin VITEK DAKSHA <=0.12: Sensitive Escherichia coli Meropenem VITEK DAKSHA <=0.25: Sensitive Escherichia coli Nitrofurantoin VITEK DAKSHA <=16: Sensitive Escherichia coli Piperacillin/Tazobactam VITEK DAKSHA <=4: Sensitive Escherichia coli Trimethoprim/Sulfamethoxazole VITEK M IC <=20: Sensitive Humphrey Rose MD LAB MICROBIOLO GY Performing Organization Address [facility] Co de Phone Number [facility] [address] [address] * PRECAUTIONARY TUBE (02/02/2024 5:00 PM CDT) Pathologist [facility] [place] Prec Tube Precautionary Blood Bank Specimen Received. [facility] Blood 02/02/2024 5:00 PM CDT 02/02/2024 5:11 PM CDT Raven Rock MD LAB TRANSFUSION SERV ICES Performing Organization Address [facility] Co de Phone Number [facility] [address] [address] * HS TROPONIN (02/02/2024 4:01 PM CDT) HS Troponin I <3 <=14 ng/L [facility] Blood 02/02/2024 4:01 PM CDT 02/02/2024 4:36 PM CDT Narrative [facility] - 02/02/2024 5:10 PM CDT If ordering as an add-on lab, you must call the lab. Humphrey Rose MD LABORATORY Performing Organization Address City/[facility]/ZIP Co de Phone Number [facility] [address] [address] * (ABNORMAL) ED CHEMISTRY LABS(NA,K,CL,CO2,GLU,CREAT,CA-IONIZED,ANION GAP) (02/02/2024 4:01 PM CDT) Sodium 135 135 - 148 mEq/L [facility] Chloride 100 92 - 108 mEq/L [facility] AnGap 9 8 - 16 mEq/L [facility] Glucose 105(H) 70 - 100 mg/dL [facility] ICA, Actual 4.21(L) 4.40 - 5.20 mg/dL [facility] ICA, pH Corrected 4.45 4.40 - 5.20 mg/dL [facility] Creatinine 0.72 0.50 - 1.00 mg/dL [facility] BICARB 26 22 - 26 mEq/L [facility] eGFR (2020 CKD-EPI) 96 >=60 ml/min/1.7 3m2 [facility] Comment: The estimated glomerular filtration rate (eGFR) was calculated using the CKD-EPI 2020 creatinine equation, which does not include race as a factor. This equation is validated in individuals 18 years of age and older, and eGFR is normalized to a body surface area of 1.73m^2. Potassium 3.5 3.5 - 5.3 mEq/L [facility] Blood 02/02/2024 4:01 PM CDT 02/02/2024 4:15 PM CDT Humphrey Rose MD LABORATORY Performing Organization Address City/[facility]/ZIP Co de Phone Number [facility] [address] [address] * LIPASE (02/02/2024 4:01 PM CDT) Lipase 13 13 - 60 IU/L [facility] Blood 02/02/2024 4:01 PM CDT 02/02/2024 7:02 PM CDT Humphrey Rose MD LABORATORY Performing Organization Address City/[facility] Co de Phone Number [facility] [address] [address] * LACTATE (LACTIC ACID) (02/02/2024 4:01 PM CDT) Pathologist [facility] [place] Lactate 1.1 0.7 - 2.1 mmol/L [facility] Blood 02/02/2024 4:01 PM CDT 02/02/2024 4:15 PM CDT Narrative [facility] - 02/02/2024 4:15 PM CDT Send specimen on ice! Humphrey Rose MD LABORATORY Performing Organization Address [facility] Co de Phone Number [facility] [address] [address] * GLYCOSYLATED HGB - A1C (02/02/2024 4:00 PM CDT) Pathologist [facility] [place] Hemoglobin A1C 4.4 4.0 - 5.6 % [facility] Comment: Increased risk for diabetes (prediabetes): 5.7-6.4% Diabetes >=6.5% In the absence of unequivocal hyperglycemia, diagnosis requires two abnormal test results (i.e. HbA1c and glucose) or two abnormal results from specimens collected at two different timepoints. The presence of some hemoglobin variants or red cell disorders may interfere with the measurement of hemoglobin A1c (HbA1c). Estimated Average Glucose 80 68 - 114 [facility] Comment: The estimated Average Glucose (eAG) was calculated using an equation derived from a study of 507 adults with type 1, type 2, or no diabetes. Minority populations were underrepresented and children were not included. The eAG is not equivalent to a fasting glucose concentration. Blood 02/02/2024 4:00 PM CDT 02/02/2024 11:05 PM CDT Enedina Austin MD LABORATORY Performing Organization Address [facility] Co de Phone Number [facility] [address] [address] * PTT (APTT) (02/02/2024 4:00 PM CDT) APTT 33.0 25.0 - 37.0 sec [facility] Blood 02/02/2024 4:00 PM CDT 02/02/2024 5:57 PM CDT Enedina Austin MD LABORATORY Performing Organization Address [facility] Co de Phone Number [facility] [address] [address] * ED EKG (12-LEAD) (02/02/2024 3:48 PM CDT) 02/02/2024 3:48 PM CDT Impressions [facility] CVIS EKG ORDERS - 02/02/2024 3:48 PM CDT SINUS RHYTHM LOW QRS VOLTAGE IN EXTREMITY LEADS ??[QRS DEFLECTION < 0.5 mV IN LIMB LEADS] POSSIBLE ANTERIOR MYOCARDIAL INFARCTION , PROBABLY OLD [30 ms Q WAVE IN V3/V4, OR R < 0.2 mV IN V4] BORDERLINE ECG P-R Interval 184 ms QRS Interval 78 ms QT Interval 365 ms QTC Interval 414 ms P [place] -12 QRS [place] -1 T Wave [place] -1 Narrative Procedure Note Lyndon Villanueva MD - 02/02/2024 IMPRESSION SINUS RHYTHM LOW QRS VOLTAGE IN EXTREMITY LEADS [QRS DEFLECTION < 0.5 mV IN LIMBLEADS] POSSIBLE ANTERIOR MYOCARDIAL INFARCTION , PROBABLY OLD [30 ms Q WAVE INV3/V4, OR R < 0.2 mV IN V4] BORDERLINE ECG P-R Interval 184 ms QRS Interval 78 ms QT Interval 365 ms QTC Interval 414 ms P [place] -12 QRS [place] -1 T Wave [place] -1 Humphrey Rose MD EKG Performing Organization Address [facility] Co de Phone Number [facility] CVIS EKG ORDERS * ED US ABDOMINAL/GALLBLADDER (02/02/2024 3:40 PM CDT) Anatomical Region Laterality Modality Ultrasound Narrative 02/02/2024 4:30 PM CDT ED Abdomen/Gallbladder Ultrasound Indications: Abdominal pain Window: Longitudinal and Transverse Findings: No gall stones identified Diffuse Ascites Impression: ??No gallstones, negative sonographic tobin sign, ascites Humphrey Rose MD, 02/02/2024 4:30 PM Humphrey Rose MD RAD ED ULT * XR CHEST OUTSIDE FILMS (02/02/2024 12:30 PM CDT) Narrative Dummy, [id number] - 02/02/2024 1:31 PM CDT Outside Film Only Outside Provider RAD OUTSIDE FILMS * XR LOWER EXTREMITY OUTSIDE FILMS (02/02/2024 12:15 PM CDT) Only the most recent of2 resultswithin the time period is included. Narrative Dummy, [id number] - 02/02/2024 1:32 PM CDT Outside Film Only Outside Provider RAD OUTSIDE FILMS from Last 3 Months or Most Recently Relevant to Health Maintenance Advance Directives For more information, please contact: [phone] * Full Code (Latest Code Status on File) Date Activated Date Inactivated Comments 02/02/2024 10:54 PM Question Answer Comments Does the Patient have prefer ences regarding life sustaining measures (these options only apply when the patient has a pulse): Yes Patient will accept intubation for respiratory d eterioration: Yes Patient will accept BiPAP for respiratory deteri oration: Yes Patient will accept vasopressors for hypotension : Yes Patient will accept cardioversion for unstable r hythm: Yes Discussed Code Status With Whom? Patient
--- OUTSIDE RECORDS SUMMARY | 2024-02-08 17:13 | XMS_ITS | Referral Summary ---
Author Name Unknown Organization [facility] [address] [place] [address] Phone Care Team Providers Care Sew Out Operator Name Role Phone Unavailable Primary Care Provider Unavailabl e Source Comments Ntirety is fully rolled out on [employer]. Last update 03/09/09.[facility] Encounters Date Type Department Care Team Description 02/05/2024 12:52 PM CDT Anesthesia Event OR P4 [address] [place] [address] Marcus Hanna MD Bagal, Kristi, OKSANA 02/05/2024 1:15 PM CDT - 02/05/2024 4:25 PM CDT Surgery OR P4 [address] [place] [address] Dayo Henning MD IM BRANDEN FEMUR 02/04/2024 2:00 PM CDT - 02/04/2024 4:57 PM CDT Surgery OR P4 [address] [place] [address] Homa Zarate MD Not Performed IM BRANDEN FEMUR 02/04/2024 2:00 PM CDT Anesthesia Event OR P4 [address] [place] [address] Malcolm Hernandez DO Kronus, Kelsey M, DARIO, POOL SERVICER 02/03/2024 Orders Only [facility] [place] [place] Film Room [facility] Radiology Department FRED [address] [place] [address] Provider, Outside Referral of patient (Primary Dx) 02/02/2024 Travel 02/02/2024 Orders Only [facility] [place] [place] Film Room [facility] Radiology Department FRED [address] [place] [address] Provider, Outside Referral of patient (Primary Dx) 02/02/2024 Orders Only [facility] [place] [place] MRI P4 [address] [place] [address] Provider, Outside 02/02/2024 3:17 PM CDT - Present Hospital Encounter [facility] [place] [place] Orthopaedic [address] [place] [address] Humphrey Rose MD Isaksen, MD Justus Segundo, Autumn Silva MD Other fracture of right femur, initial encounter for closed fracture (CMS) from Last 3 Months Allergies Active Allergy [...] femu r, initial encounter for closed fracture (CMS) 02/02/2024 Social History Tobacco Use Types Packs/Day Years [...] [facility] [address] [address] Lia Mcclellan PA-C [address] [facility] [address] [place] [address] Other, Manager Country [address] [place] [address] Scheduled Discharge Disposition: Discharged to home or self care (routine discharge) Medical Devices Implanted Type Area Visiting Teacher Device Identifier Shelf Expiration Date Model / Serial / Lot Freehand Drill [id number] Implanted:Qty: 1 on 02/05/2024 by Dayo Henning MD at [facility] Drill bit/kiara Right: Femur [employer] 11/04/2033 [id number] S / / [id number] Femoral Nail Retrograde [id number] Implanted:Qty: 1 on 02/05/2024 by Dayo Henning MD at [facility] Branden Right: Femur [employer] 10/04/2033 [id number] S / / [id number] 5.0x60mm [id number] Implanted:Qty: 1 on 02/05/2024 by Dayo Henning MD at [facility] Screw/Rudy t Right: Femur [employer] 06/04/2032 [id number] S / / [id number] 5.0x70mm [id number] Implanted:Qty: 1 on 02/05/2024 by Dayo Henning MD at [facility] Screw/Rudy t Right: Femur [employer] 09/03/2033 [id number] S / / [id number] 5.0x75mm Adv [id number] Implanted:Qty: 1 on 02/05/2024 by Dayo Henning MD at [facility] Screw/Rudy t Right: Femur [employer] 09/03/2033 [id number] S / / [id number] 5.0x42.5mm [id number] Implanted:Qty: 1 on 02/05/2024 by Dayo Henning MD at [facility] Screw/Rudy t Right: Femur [employer] 10/04/2033 [id number] S / / [id number] Procedures The patient is currently admitted. The [...] Routine 02/04/2024 9:50 PM CDT PC CULTURE,BACTERIAL,DEFI [place],AEROBIC;BLOOD Timed 02/04/2024 6:44 PM CDT PC CULTURE,BACTERIAL,DEFI [place],AEROBIC;BLOOD Routine 02/04/2024 6:44 PM CDT POTASSIUM Timed 02/04/2024 1:17 PM CDT PC ANTIBODY SCREEN,RBC,EACH SERUM TECHNIQUE STAT 02/04/2024 1:17 PM CDT TC LAB BLOOD DRAW BY VENIPUNCTURE STAT 02/04/2024 1:17 PM CDT PROTHROMBIN (PT) & INR Routine 6:40 AM CDT PANEL HEPATIC FUNCTION Routine 6:40 AM CDT PC LAB CBC/PLT Routine 02/04/2024 6:40 AM CDT PANEL BASIC METABOLIC (BMP) Routine 02/04/2024 6:40 AM CDT PC CULTURE,BACTERIAL,DEFI [place],AEROBIC;BLOOD Timed 02/03/2024 12:13 PM CDT PC CULTURE,BACTERIAL,DEFI [place],AEROBIC;BLOOD Timed 02/03/2024 12:06 PM CDT PROTHROMBIN (PT) [...] patient PANEL LIPID Routine 09/11/2023 9:11 AM CARE CENTER MANAGER PHOSPHORUS Routine 11/18/2002 7:35 AM CARE CENTER MANAGER from Last 3 Months or Most Recently Relevant to Health Maintenance Results * POC GLUCOSE (02/08/2024 12:30 PM CDT) Only the most recent of12 resultswithin the time period is included. POC Glucose 82 70 - 100 mg/dL [facility] Blood 02/08/2024 12:3 0 PM CDT Humphrey Rose MD LABORATORY [facility] [address] [place] [address], [place] * IR PARACENTESIS (02/08/2024 11:45 AM CDT) [...] paracentesis as above. Reading Radiologist: Coco Buckley Autumn FARRIS IR * Paracentesis (02/08/2024 11:14 AM CDT) [...] to verify the correct patient, procedure, equipment, claims support specialist and site/side marked as required. Initial or [...] included. PT 29.3(H) 9.0 - 12.5 sec [facility] [place] [place] [facility] INR 2.6(H) 0.8 - 1.1 [facility] [place] [place] [facility] Comment: Warfarin Therapeutic Range: Standard Intensity: 2.0 - 3.0 High Intensity: 2.5 - 3.5 Blood 02/08/2024 8:19 AM CDT 02/08/2024 8:35 AM CDT Autumn Jerome MD LABORATORY [facility] [place] [place] [facility] [address] [address] * (ABNORMAL) PANEL BASIC METABOLIC (BMP) (02/08/2024 8:19 AM CDT) Only the most recent of6 resultswithin the time period is included. Sodium 134(L) 135 - 148 mEq/L [facility] [place] [place] [facility] Potassium 3.8 3.5 - 5.3 mEq/L [facility] [place] [place] [facility] CO2 29 22 - 30 mEq/L [facility] [place] [place] [facility] AnGap 5(L) 8 - 16 mEq/L [facility] [place] [place] [facility] Glucose 91 70 - 100 mg/dL [facility] [place] [place] [facility] BUN 9 6 - 20 mg/dL [facility] [place] [place] [facility] Creatinine 0.59 0.50 - 1.00 mg/dL [facility] [place] [place] [facility] Chloride 100 92 - 108 mEq/L [facility] [place] [place] [facility] Calcium 8.1(L) 8.6 - 10.0 mg/dL [facility] [place] [place] [facility] eGFR (2020 CKD-EPI) 104 >=60 ml/min/1.7 3m2 [facility] [place] [place] [facility] Comment: The estimated glomerular filtration rate (eGFR) was calculated using the CKD-EPI 2020 creatinine equation, which does not include race as a factor. This equation is validated in individuals 18 years of age and older, and eGFR is normalized to a body surface area of 1.73m^2. Blood 02/08/2024 8:19 AM CDT 02/08/2024 8:35 AM CDT Autumn Jerome MD LABORATORY Performing Organization Address [facility] Co de Phone Number [facility] [place] [place] [facility] [address] [address] * (ABNORMAL) PANEL HEPATIC FUNCTION (02/08/2024 8:19 AM CDT) Only the most recent of7 resultswithin the time period is included. Total Protein 6.1(L) 6.4 - 8.3 g/dL [facility] [place] [place] [facility] Albumin 2.5(L) 3.8 - 5.1 g/dL [facility] [place] [place] [facility] Bili Total 1.0 <=1.2 mg/dL [facility] [place] [place] [facility] Bili Direct 0.5(H) <=0.3 mg/dL [facility] [place] [place] [facility] Alk Phos 125(H) 35 - 104 IU/L [facility] [place] [place] [facility] Comment:No reference range e stablished for patients <18 years old. ALT (SGPT) 6 <=33 IU/L [facility] [place] [place] [facility] AST(SGOT) 30 5 - 40 IU/L [facility] [place] [place] [facility] Blood 02/08/2024 8:19 AM CDT 02/08/2024 8:35 AM CDT Autumn Jerome MD LABORATORY Performing Organization Address [facility] de Phone Number [facility] [place] [place] [facility] [address] [address] * PHOSPHORUS (02/07/2024 6:05 AM CDT) Only the most recent of2 resultswithin the time period is included. Phosphorus 3.2 2.5 - 4.5 mg/dL [facility] [place] [place] [facility] Blood 02/07/2024 6:05 AM CDT 02/07/2024 7:28 AM CDT Autumn Jerome MD LABORATORY Performing Organization Address [facility] Co de Phone Number [facility] [place] [place] [facility] [address] [address] * MAGNESIUM (02/07/2024 6:05 AM CDT) Magnesium 2.0 1.6 - 2.6 mg/dL [facility] [place] [place] [facility] Blood 02/07/2024 6:05 AM CDT 02/07/2024 7:28 AM CDT Autumn Jerome MD LABORATORY Performing Organization Address [facility] Co de Phone Number [facility] [place] [place] [facility] [address] [address] * (ABNORMAL) CBC WITH PLATELET (02/07/2024 6:05 AM CDT) Only the most recent of3 resultswithin the time period is included. WBC 9.53 4.00 - 10.00 k/cmm [facility] [place] [place] [facility] RBC 3.19(L) 3.90 - 5.20 m/cmm [facility] [place] [place] [facility] Hgb 9.5(L) 11.5 - 15.7 g/dL [facility] [place] [place] [facility] Hematocrit 29.8(L) 34.0 - 45.0 % [facility] [place] [place] [facility] MCV 93.4 80.0 - 100.0 fL [facility] [place] [place] [facility] MCH 29.8 25.0 - 32.0 pg [facility] [place] [place] [facility] MCHC 31.9 31.0 - 36.0 g/dL [facility] [place] [place] [facility] RDW 13.7 11.5 - 14.5 % [facility] [place] [place] [facility] Plt 149(L) 150 - 400 k/cmm [facility] [place] [place] [facility] MPV 11.1 6.5 - 12.5 fL [facility] [place] [place] [facility] NRBC 0.3(H) 0.0 - 0.0 /100WBC [facility] [place] [place] [facility] Blood 02/07/2024 6:05 AM CDT 02/07/2024 7:26 AM CDT Autumn Jerome MD LABORATORY Performing Organization Address [facility] Co de Phone Number [facility] [place] [place] [facility] [address] [address] * (ABNORMAL) HEMOGLOBIN (02/06/2024 7:10 AM CDT) Hgb 8.8(L) 11.5 - 15.7 g/dL [facility] [place] [place] [facility] Blood 02/06/2024 7:10 AM CDT 02/06/2024 7:28 AM CDT Lia Mcclellan PA-C LABORATORY [facility] [place] [place] [facility] [address] [address] * XR FEMUR RIGHT AP + LAT* [...] ADMIN) (02/05/2024 1:19 PM CDT) Unit Number [id number] [facility] [place] [place] [facility] Product Code N0267R02 [facility] [place] [place] [facility] Blood Expiration Date [id number] [facility] [place] [place] [facility] Blood Type 6200 [facility] [place] [place] [facility] Blood Type (TEXT) APOS [facility] [place] [place] [facility] Other 02/05/2024 1:19 PM CDT 02/05/2024 1:16 PM CDT Marcus Hanna MD BLOOD BANK ORDERABLE S (BLOOD ADMIN) [facility] [place] [place] [facility] [address] [address] * Intubation/Airway (02/05/2024 1:11 PM CDT) Narrative Cely Friend APRN, CRNA - 02/05/2024 1:11 PM [...] unchanged and oral mucosa unchanged Performed by: POOL SERVICER: Cely Friend APRN, POOL SERVICER Events Anesthesia start: 02/05/2024 12:52 PM Intubation time: 02/05/2024 12:59 PM Marcus Hanna MD PROCEDURES * WOUND CULTURE:GRAM STAIN OPTIONAL (02/05/2024 10:00 AM CDT) Only the most recent of2 resultswithin the time period is included. Final Report Duplicate order. Patient account credited. [facility] [place] [place] [facility] Gram Stain Report Few PMN's seen. No organisms seen. [facility] [place] [place] [facility] Swab STRUCTURE OF RIGHT FOOT / Unknown 02/05/2024 10:00 AM CDT 02/05/2024 10:25 AM CDT Narrative [facility] [place] [place] [facility] - 02/05/2024 2:53 PM CDT Purulent drainage. Gram Stain please, aerobic, anaerobic Do you want a gram stain: Yes Autumn Jerome MD LAB MICROBIOLOGY Performing Organization Address [facility] Co de Phone Number [facility] [place] [place] [facility] [address] [place] [address] * HELD MICRO SPECIMEN (02/04/2024 10:44 PM CDT) Final Report Microbiology specimen received in lab with no orders. Add-on order must be placed within 24 hours. If no orders placed, specimen will be discarded. [facility] [place] [place] [facility] Swab STRUCTURE OF RIGHT FOOT / Unknown 02/04/2024 10:44 PM CDT 02/04/2024 10:45 PM CDT Narrative [facility] [place] [place] [facility] - 02/04/2024 10:46 PM CDT Epic message sent to Autumn Jerome at 02/04/2024 22:46:13 CDT by Solitario Mckinnon MLS. Autumn Jerome MD LAB MICROBIOLOGY Performing Organization Address [facility]/ZIP Co de Phone Number [address] [address] * POTASSIUM (02/04/2024 1:17 PM CDT) Potassium 4.3 3.5 - 5.3 mEq/L [facility] [place] [place] [facility] Blood 02/04/2024 1:17 PM CDT 02/04/2024 1:33 PM CDT Autumn Jerome MD LABORATORY Performing Organization Address [facility] Co de Phone Number [address] [address] * ANTIBODY SCREEN (02/04/2024 1:17 PM CDT) Only the most recent of2 resultswithin the time period is included. Nicky Screen Negative [facility] [place] [place] [facility] Blood 02/04/2024 1:17 PM CDT 02/04/2024 1:34 PM CDT Solitario Ha APRN, POOL SERVICER LAB TRANSFUSI ON SERVICES Performing Organization Address [facility] Co de Phone Number [address] [address] * BLOOD TYPING-ABO/RH (02/04/2024 1:17 PM CDT) Only the most recent of2 resultswithin the time period is included. ABORHG A POS [facility] [place] [place] [facility] Blood 02/04/2024 1:17 PM CDT 02/04/2024 1:34 PM CDT Solitario Ha APRN POOL SERVICER LAB TRANSFUSI ON SERVICES Performing Organization Address [facility] Co de Phone Number [address] [address] * (ABNORMAL) CBC WITH PLTS/AUTO DIFF (02/03/2024 8:03 AM CDT) Only the most recent of2 resultswithin the time period is included. WBC 5.74 4.00 - 10.00 k/cmm [facility] [place] [place] [facility] RBC 3.08(L) 3.90 - 5.20 m/cmm [facility] [place] [place] [facility] Hgb 9.4(L) 11.5 - 15.7 g/dL [facility] [place] [place] [facility] Hematocrit 28.1(L) 34.0 - 45.0 % [facility] [place] [place] [facility] MCV 91.2 80.0 - 100.0 fL [facility] [place] [place] [facility] MCH 30.5 25.0 - 32.0 pg [facility] [place] [place] [facility] MCHC 33.5 31.0 - 36.0 g/dL [facility] [place] [place] [facility] RDW 13.6 11.5 - 14.5 % [facility] [place] [place] [facility] Plt 155 150 - 400 k/cmm [facility] [place] [place] [facility] MPV 10.6 6.5 - 12.5 fL [facility] [place] [place] [facility] Automated Abs Neutrophil 4.49 1.70 - 6.50 k/cmm [facility] [place] [place] [facility] Comment:Preliminary ANC, Fin al Result to Follow Abs Immature Granulocyte 0.02 0.00 - 0.09 k/cmm [facility] [place] [place] [facility] Comment:The Immature Granulo cyte Absolute count contains metamyelocytes and myelocytes. Abs Neutrophil 4.49 1.70 - 6.50 k/cmm [facility] [place] [place] [facility] Abs Lymphocyte 0.69(L) 0.80 - 4.00 k/cmm [facility] [place] [place] [facility] Abs Monocyte 0.53 0.20 - 1.00 k/cmm [facility] [place] [place] [facility] Abs Eosinophil 0.00 0.00 - 0.60 k/cmm [facility] [place] [place] [facility] Abs Basophil 0.01 0.00 - 0.20 k/cmm [facility] [place] [place] [facility] Blood 02/03/2024 8:03 AM CDT 02/03/2024 8:48 AM CDT Enedina Austin MD LABORATORY [facility] [place] [place] [facility] [address] [address] * CT RIGHT FEMUR NO IV CONTRAST (02/02/2024 10:19 PM CDT) Anatomical Region Laterality Modality Lower Extremity Computed Tomogra phy 02/02/2024 10:1 4 PM CDT Addenda Addendum by Carter Reyes MD on 02/02/2024 10:29 PM CDT ADDENDUM: 3-D reconstructions were created by the office technologist on the CT scanner and reviewed [...] perforation and infection ??Alternatives discussed: ??No treatment Porter protocol: ??Patient identity confirmed: ??Verbally with patient [...] MISCELLANEOUS BODY FLUID (02/02/2024 7:51 PM CDT) [facility] [place] [place] Result 1.3 [facility] [place] [place] [facility] Units BF g/dL [facility] [place] [place] [facility] Comment:The reference interv al(s) and other method performance specifications have not been established for this body fluid. The test result must be integrated into the clinical context for interpretation. Fluid 02/02/2024 7:51 PM CDT 02/02/2024 8:11 PM CDT Narrative [facility] [place] [place] [facility] - 02/02/2024 9:01 PM CDT fluid: Peritoneal Test: TP Humphrey Rose MD LABORATORY Performing Organization Address [facility]/ZIP Co de Phone Number [facility] [place] [place] [facility] [address] [address] * BODY FLUID CELL COUNT/DIFF (02/02/2024 7:51 PM CDT) Fluid Type PT Peritoneal [facility] [place] [place] [facility] Comment:Normal reference ran ges have not been determined; clinical correlation is recommended. Volume PT Fluid 40 mL [facility] [place] [place] [facility] Appearance PT Hazy [facility] [place] [place] [facility] Color bf Yellow [facility] [place] [place] [facility] Rbc PT Fluid <1,000 cells/ul [facility] [place] [place] [facility] Nuc Ct PT Fluid 93 cells/ul [facility] [place] [place] [facility] Neutrophil PT Fluid 2 % [facility] [place] [place] [facility] Lymphocytes PT Fluid 19 % [facility] [place] [place] [facility] Basophil PT Fluid 1 % [facility] [place] [place] [facility] MONO/MACS FL 53 % [facility] [place] [place] [facility] Other PT Fluid 25 % [facility] [place] [place] [facility] Comment:Others are mesotheli al cells. Peritoneal Fluid 02/02/2024 7:51 PM CDT 02/02/2024 7:57 PM CDT Humphrey Rose MD LABORATORY Performing Organization Address [facility] Co de Phone Number [facility] [place] [place] [facility] [address] [address] * BODY FLUID CULTURE:INCLUDES GRAM STAIN (02/02/2024 7:51 PM CDT) Final Report No growth. [facility] [place] [place] [facility] Gram Stain Report PMN's seen. No organisms seen. [facility] [place] [place] [facility] Peritoneal Fluid PERITONEUM (SEROUS MEMBRANE) STRUCTURE / Unknown 02/02/2024 7:51 PM CDT 02/02/2024 8:04 PM CDT Humphrey Rose MD LAB MICROBIOLO GY Performing Organization Address [facility]/ZIP Co de Phone Number [facility] [place] [place] [facility] [address] [address] * CT ABDOMEN/PELVIS W/IV CON (02/02/2024 6:50 [...] (02/02/2024 5:15 PM CDT) Color YELLOW YELLOW [facility] [place] [place] [facility] Appearance CLOUDY(A) CLEAR [facility] [place] [place] [facility] Urine Glucose NEGATIVE NEGATIVE mg/dL [facility] [place] [place] [facility] Bili UA TRACE(A) NEGATIVE [facility] [place] [place] [facility] Ketones TRACE(A) NEGATIVE [facility] [place] [place] [facility] Specific [place] 1.024 1.003 - 1.030 [facility] [place] [place] [facility] Blood Ur LARGE(A) Neg-Trace [facility] [place] [place] [facility] PH Urine 6.0 5.0 - 7.0 [facility] [place] [place] [facility] Protein Ur 30(A) Neg-Trace [facility] [place] [place] [facility] Urobilinogen >=8(A) NORMAL EU/dL [facility] [place] [place] [facility] Nitrite Ur NEGATIVE NEGATIVE [facility] [place] [place] [facility] Leuk Est SMALL(A) Neg-Trace [facility] [place] [place] [facility] WBC Ur 6-10(A) 0 - 5 perHPF [facility] [place] [place] [facility] RBC Ur >20(A) 0 - 3 perHPF [facility] [place] [place] [facility] SQ EPITH 0-5 0 - 5 perHPF [facility] [place] [place] [facility] Bacteria UA PRESENT [facility] [place] [place] [facility] Comment:Presence of bacteria does not necessarily indicate a UTI. The presence of bacteria can indicate a non-clean catch urine specimen. Bacteria should be used in conjunction with other UA results and clinical presentation to assist in diagnosing an infection. Urinalysis Performed at: [facility] Urine 02/02/2024 5:15 PM CDT 02/02/2024 5:18 PM CDT Humphrey Rose MD LABORATORY [facility] [place] [place] [facility] [address] [address] * (ABNORMAL) URINE CULTURE (02/02/2024 5:03 PM CDT) Urine Cult Greater than 100,000 organisms/ml Escherichia coli isolated.(POS) [facility] [place] [place] [facility] Organism ESCHERICHIA COLI(POS) [facility] [place] [place] [facility] Urine 02/02/2024 5:03 PM CDT 02/02/2024 [...] MD LAB MICROBIOLO GY Performing Organization Address [facility] de Phone Number [facility] [place] [place] [facility] [address] [address] * PRECAUTIONARY TUBE (02/02/2024 5:00 PM CDT) Prec Tube Precautionary Blood Bank Specimen Received. [facility] [place] [place] [facility] Blood 02/02/2024 5:00 PM CDT 02/02/2024 5:11 PM CDT [place] MD LAB TRANSFUSION SERV ICES Performing Organization Address [facility] de Phone Number [facility] [place] [place] [facility] [address] [address] * HS TROPONIN (02/02/2024 4:01 PM CDT) HS Troponin I <3 <=14 ng/L [facility] [place] [place] [facility] Blood 02/02/2024 4:01 PM CDT 02/02/2024 4:36 PM CDT Narrative [facility] [place] [place] [facility] - 02/02/2024 5:10 PM CDT If ordering as an add-on lab, you must call the lab. Humphrey Rose MD LABORATORY Performing Organization Address [facility]/ZIP Co de Phone Number [facility] [place] [place] [facility] [address] [address] * (ABNORMAL) ED CHEMISTRY LABS(NA,K,CL,CO2,GLU,CREAT,CA-IONIZED,ANION GAP) (02/02/2024 4:01 PM CDT) Sodium 135 135 - 148 mEq/L [facility] [place] [place] [facility] Chloride 100 92 - 108 mEq/L [facility] [place] [place] [facility] AnGap 9 8 - 16 mEq/L [facility] [place] [place] [facility] Glucose 105(H) 70 - 100 mg/dL [facility] [place] [place] [facility] ICA, Actual 4.21(L) 4.40 - 5.20 mg/dL [facility] [place] [place] [facility] ICA, pH Corrected 4.45 4.40 - 5.20 mg/dL [facility] [place] [place] [facility] Creatinine 0.72 0.50 - 1.00 mg/dL [facility] [place] [place] [facility] BICARB 26 22 - 26 mEq/L [facility] [place] [place] [facility] eGFR (2020 CKD-EPI) 96 >=60 ml/min/1.7 3m2 [facility] [place] [place] [facility] Comment: The estimated glomerular filtration rate (eGFR) was calculated using the CKD-EPI 2020 creatinine equation, which does not include race as a factor. This equation is validated in individuals 18 years of age and older, and eGFR is normalized to a body surface area of 1.73m^2. Potassium 3.5 3.5 - 5.3 mEq/L [facility] [place] [place] [facility] Blood 02/02/2024 4:01 PM CDT 02/02/2024 4:15 PM CDT Humphrey Rose MD LABORATORY Performing Organization Address [facility] Co de Phone Number [facility] [place] [place] [facility] [address] [address] * LIPASE (02/02/2024 4:01 PM CDT) Lipase 13 13 - 60 IU/L [facility] [place] [place] [facility] Blood 02/02/2024 4:01 PM CDT 02/02/2024 7:02 PM CDT Humphrey Rose MD LABORATORY Performing Organization Address [facility] Co de Phone Number [facility] [place] [place] [facility] [address] [address] * LACTATE (LACTIC ACID) (02/02/2024 4:01 PM CDT) Lactate 1.1 0.7 - 2.1 mmol/L [facility] [place] [place] [facility] Blood 02/02/2024 4:01 PM CDT 02/02/2024 4:15 PM CDT Narrative [facility] [place] [place] [facility] - 02/02/2024 4:15 PM CDT Send specimen on ice! Humphrey Rose MD LABORATORY Performing Organization Address City/[facility] Co de Phone Number [address] [address] * GLYCOSYLATED HGB - A1C (02/02/2024 4:00 PM CDT) Pathologist [facility] Hemoglobin A1C 4.4 4.0 - 5.6 % [facility] [place] [place] [facility] Comment: Increased risk for diabetes (prediabetes): 5.7-6.4% Diabetes >=6.5% In the absence of unequivocal hyperglycemia, diagnosis requires two abnormal test results (i.e. HbA1c and glucose) or two abnormal results from specimens collected at two different timepoints. The presence of some hemoglobin variants or red cell disorders may interfere with the measurement of hemoglobin A1c (HbA1c). Estimated Average Glucose 80 68 - 114 [facility] [place] [place] [facility] Comment: The estimated Average Glucose (eAG) was calculated using an equation derived from a study of 507 adults with type 1, type 2, or no diabetes. Minority populations were underrepresented and children were not included. The eAG is not equivalent to a fasting glucose concentration. Blood 02/02/2024 4:00 PM CDT 02/02/2024 11:05 PM CDT Enedina Austin MD LABORATORY Performing Organization Address [facility]/ZIP Co de Phone Number [address] [address] * PTT (APTT) (02/02/2024 4:00 PM CDT) APTT 33.0 25.0 - 37.0 sec [facility] [place] [place] [facility] Blood 02/02/2024 4:00 PM CDT 02/02/2024 5:57 PM CDT Enedina Austin MD LABORATORY Performing Organization Address [facility] Co de Phone Number [facility] [place] [place] [facility] [address] [place] [phone] * ED EKG (12-LEAD) (02/02/2024 3:48 PM CDT) 02/02/2024 3:48 PM CDT Impressions [facility] [place] [place] CVIS EKG ORDERS - 02/02/2024 3:48 PM CDT SINUS RHYTHM LOW QRS VOLTAGE IN EXTREMITY LEADS ??[QRS DEFLECTION < 0.5 mV IN LIMB LEADS] POSSIBLE ANTERIOR MYOCARDIAL INFARCTION , PROBABLY OLD [30 ms Q WAVE IN V3/V4, OR R < 0.2 mV IN V4] BORDERLINE ECG P-R Interval 184 ms QRS Interval 78 ms QT Interval 365 ms QTC Interval 414 ms P Endeavor -12 QRS Endeavor -1 T Wave Endeavor -1 Narrative Procedure Note Lyndon Villanueva MD - 02/02/2024 IMPRESSION SINUS RHYTHM LOW QRS VOLTAGE IN EXTREMITY LEADS [QRS DEFLECTION < 0.5 mV IN LIMBLEADS] POSSIBLE ANTERIOR MYOCARDIAL INFARCTION , PROBABLY OLD [30 ms Q WAVE INV3/V4, OR R < 0.2 mV IN V4] BORDERLINE ECG P-R Interval 184 ms QRS Interval 78 ms QT Interval 365 ms QTC Interval 414 ms P Endeavor -12 QRS Endeavor -1 T Wave Endeavor -1 Humphrey Rose MD EKG Performing Organization Address [facility] Co de Phone Number [facility] [place] [place] CVIS EKG ORDERS * ED US ABDOMINAL/GALLBLADDER [...] FILMS (02/02/2024 12:30 PM CDT) Narrative Dummy, [id number] - 02/02/2024 1:31 PM CDT Outside Film Only Outside Provider RAD OUTSIDE FILMS * XR LOWER EXTREMITY OUTSIDE FILMS (02/02/2024 12:15 PM CDT) Only the most recent of2 resultswithin the time period is included. Narrative Dummy, Vvzp-Ogzlza-Xwgazypci - 02/02/2024 1:32 PM CDT Outside Film Only Outside Provider RAD OUTSIDE FILMS from Last 3 Months or Most Recently Relevant to Health Maintenance Advance Directives For more information, please contact: [phone] * Full Code (Latest Code Status on [...]
--- OUTSIDE RECORDS SUMMARY | 2024-02-08 17:14 | XMS_ITS | Encounter Summary ---
Author Name Unknown Organization [facility] Address [address] [place] [address] Phone Care Team Providers Care Roto Rooter Operator Name Role Phone Unavailable Primary Care Provider Unavailabl e Reason for Visit * Auth/Cert (Routine) Specialty Diagnoses / Procedures Referred By Contac t Referred To Contact ORTHOPEDICS Diagnoses Acute cystitis with hematuria Other fracture of right femur, initial encounter for closed fracture ([facility]) Humphrey Rose MD [address] [place] [address] [facility](G3) [address] [facility] G3.[address] [place] [address] Referral ID Status Reason Start Date Expiration Date Visits Re quested Visits Authorized [id number] 1 1 Encounter Details Date Type Department Care Team (Late st Contact Info) Description 02/05/2024 12:52 PM CDT Anesthesia Event OR P4 [address] [facility] [address]4.[address] [place], [place] [address] Marcus Hanna MD [address] [place] [address] [address] [place], [place] [phone] Sweta Dennis SRNA [address] [place] [address] Anesthesia Record Procedure Summary Procedure Name Responsible Anesthesiologist Anesthesia Start Time Anesthesia Stop Time IM KRYSTLE FEMUR (Right: Leg Upper) Marcus Hanna MD 02/05/24 1252 02/05/24 1558 Events Date Time Event Comment 02/05/2024 1209 Anesthetic plan discussed with Anesthesiologist 1225 Pre-op End 1252 An Start 1252 An Start Data 1252 IOPAE The intraoperat velasquez pre-anesthetic evaluation was completed with no changes noted from the pre-operative anesthesia evaluation. 1255 An Induction 1259 An Intubation 1537 An Emergence 1545 Extubation 1548 an stop data 1558 An Stop Meds Name Total fentaNYL (SUBLIMAZE) 100 mcg/ 2 mL injec tion 75 mcg lidocaine 2% injection 100 mg propofol (DIPRIVAN) injection 140 mg rocuronium (ZEMURON) injection 100 mg phenylephrine 100 mcg/mL syringe 50 mcg ondansetron (ZOFRAN) injection 4 mg sugammadex (BRIDION) 200 mg/ 2mL injecti on 200 mg calcium chloride injection 1,000 mg ceFAZolin (ANCEF) 2 g IVPB 2 g tranexamic acid (CYKLOKAPRON) 100 mg/mL injection 1,000 mg phenylephrine (JOHNATHAN-SYNEPHRINE) 0.2 mg/mL infusion 4.91 mg ePHEDrine 25 mg/5 mL syringe 10 mg lactated ringers infusion 1,600 mL albumin human 5% 250 mL * Agents No agents on file. * Blood No blood administrations on file. Lines, Drains, and Airways Type Details Placement Removal Peripheral IV 02/02/24; 1519; No; 20 gauge; Anterior, Right; Forearm; Placed Prior to arrival in other fac 02/02/24 1519 by Catarino Ovalles RN Peripheral IV 02/02/24; 2019; No; 20 gauge; Anterior, Left; Forearm; 1; Placed in ED 02/02/24 2019 by Shirlene Simons RN [facility] 02/02/24; 2347; groin 02/02/24 2 347 by Chelsi Mehta RN Rash 02/02/24; 2348 02/02/24 2348 by Chelsi Mehta RN Wound 02/03/24; 0104; Pretibial; Left 02/03/24 0104 by Chelsi Mehta RN Wound 02/03/24; 0636; Pedal; Anterior, Right 02/03/24 0636 by Chelsi Mehta RN Wound 02/03/24; 1200; Y; Ulceration; Sacrum; pressure ulcer. 02/03/24 1200 by Prudence Thomson RN Wound 02/05/24; 1331; N; Incision; vertical; Knee; Anterior, Right 02/05/24 1331 by Kiley Sosa RN Wound 02/05/24; 1443; N; Incision (screw sites x 3); Leg; Distal, Upper, Right 02/05/24 1443 by Kiley Sosa RN (NPWT) Negative Pressure Wound Therapy 02/05/24; 1514; Pretibial (The wound vac applied on the pin insertion sites.); Proximal, Right, Lateral, Inner; 2 sponges; Placed in OR 02/05/24 1514 by Lalit Price RN Urinary Catheter 02/02/24; 1714; 16; 10 mL; Placed in ED; Celeste, BHARATI; 02/06/24; 1107 02/02/24 1714 by Catarino Ovalles RN 02/06/24 1107 by Nino Simpson RN Peripheral IV 02/02/24; 2035; Yes; 18 gauge, 1 3/4 in length; Right; Antecubital; 02/05/24; 1830 02/02/242035 by Natacha Mcadams RN 02/05/24 183 by Nino Simpson RN Endotracheal Tube: 02/05/24; 1311 (created via procedure documentation); 7; 02/05/24; 1545 02/05/24 1311 by Cely Friend APRN, CRNA 02/05/24 1545 by Ramon Infante APRN, INSTALLATION AND SERVICE TECHNICIAN documented in this encounter Social History Tobacco [...] OR Notes * Anesthesia Postprocedure Evaluation - Marcus Hanna MD - 02/05/2024 4:45 PM CDT Anesthesia Post Eval Patient: Cathy Raymond Procedure(s) Performed: IM KRYSTLE FEMUR (Right: Leg Upper) I've examined the patient and determined that he/[facility] is medically stable [facility] Anesthesia type: General () Patient location: PACU Patient status: Post-procedure vital signs reviewed and stable Level of Consciousness: Sleepy Post-op pain: Adequate Respiratory: Sup O2 Cardiovascular: Stable PONV status: none Fluid status: Acceptable Betablockade: not indicated Anesthetic Complications: No immediate anesthesia complications Marcus Hanna M.D. Staff Anesthesiologist Phone: [phone] 02/05/2024 Last Vitals: Vitals Value Taken Time BP 95/65 02/05/24 1635 Temp 36.6 ??C (97.9 ??F) 02/05/24 1555 Pulse 79 02/05/24 1638 Resp 8 02/05/24 1638 SpO2 96 % 02/05/24 1638 Vitals shown include unfiled device data. * Anesthesia Procedure Notes - Cely Friend APRN, CRNA - 02/05/2024 1:11 PM CDTAssociated Order(s): Intubation/Airway AIRWAY/INTUBATION PROCEDURE direct laryngoscopy (Type: Surgical Anesthesia) Process/Method: sedated and paralyzed Indications for procedure: surgery Assessment: TMD >3 finger breadths and vocal cords open and clear Preoxygenation: mask Device Device used: Hepa Wash Supporting device: Blade size: 2 The patient was intubated with a 7.0 mm standard endotracheal tube inflated to seal and secured at 21 cm to Lips Grade: II Sellicks not used Narrative 1 intubation attempt(s) confirmed in 0-30 sec Intubation Assessment: +ETCO2, EBBS and fog in ETT Ease of masking (I-easy to IV-difficult): I Ease of intubation (I-easy to IV-difficult): I Dentition Assessment: poor dentition, dentition unchanged and oral mucosa unchanged Performed by: INSTALLATION AND SERVICE TECHNICIAN: Cely Friend APRN, CRNA Events Anesthesia start: 02/05/2024 12:52 PM Intubation time: 02/05/2024 12:59 PM * Anesthesia Preprocedure Evaluation - Marcus Hanna MD - 02/05/2024 12:33 PM CDT Anesthesia Pre-Evaluation Summary Statement: This is a 58 y.o. year old patient scheduled for IM KRYSTLE FEMUR (Right: Leg Upper). Anesthesia Evaluation Internal or external H&P reviewed, patient examined and changes and/or additions made as needed Anesthesia Considerations , Negative for Anesthesia complications Additional ROS/Med Hx Findings: 58 y.o. female with decompensated cirrhosis with ascites, neuropathy with neurogenic bowel and bladder, alcohol use d/o, hypothyroidism, T2DM, MAX admitted for femur fracture and bacteremia. Pulmonary - normal exam (+) , sleep apnea, , , , , , , , , , Neurological ROS comment: Neuropathic pain Psychiatric (+) depression/anxiety Cardiovascular - normal exam Rhythm: regular Rate: normal Endo (+) diabetes mellitus (), hypothyroidism Musculoskeletal (+) fracture HEENT - negative ROS GI (+) GERD, liver disease ROS comment: Decompensated liver cirrhosis with significant ascites. Sigmoid colon distention Hematologic/Onc (+) anemia, coagulopathy , thrombocytopenia /Renal/Animal Husbandry Technician ROS comment: Hematuria Airway Mallampati: II TM distance: >3 FB Neck ROM: full Mouth Opening: good Dental (+) chipped teeth and missing teeth OB Other Physical Exam Anesthesia Plan ASA 3 - emergent general intravenous induction Maintenance: Balanced Post-op Care: routine analgesia Anesthetic plan and risks discussed with patient. Plan discussed with INSTALLATION AND SERVICE TECHNICIAN. Vitals: 02/05/24 1215 BP: Pulse: Resp: Temp: 36.5 ??C (97.7 ??F) SpO2: documented in this encounter Miscellaneous Notes * Anesthesia Handoff Note - Ramon Infante APRN, CRNA - 02/05/2024 3:58 PM CDT Anesthesia Post Handoff Patient: Cathy Raymond Procedure(s) Performed: IM KRYSTLE FEMUR (Right: Leg Upper) Patient was stable and nail beds/oral mucosa pink at time of handoff. Patient location: PACU Transportation: Patient was placed on high flow oxygen. Anesthesia Type: general Patient did not meet fast track criteria. Report to RN () The nurse's questions were answered. Comments: Monitors applied and audible. FM 6L 97% Last Vitals: Vitals: 02/05/24 1215 BP: Pulse: Resp: Temp: 36.5 ??C (97.7 ??F) SpO2: * Anesthesia Extubation Note - Ramon Infante APRN, CRNA - 02/05/2024 3:58 PM CDT Anesthesia Extubation Note At the time of extubation the patient was breathing spontaneously, follows commands, orally suctioned, awake, vital signs stable and within normal limits, headlift for 5 seconds, strong hand grasps for 5 seconds, 4-4 on TOF with sustained tetany, briskly follows verbal commands and eyes open. Extubation details: Spontaneous respirations, Oral airway, Pharyngeal reflexes present, Bag valve mask and Oral ETT removed documented in this encounter Plan of Treatment Upcoming Encounters Date Type Department Care Team (Late st Contact Info) Description 02/18/2024 11:20 AM CDT [facility] [address] [phone] Lia Mcclellan PA-C [address] [facility] [address] [place] [address] Other, Spa Assistant Manager [address] [place] [address] Scheduled Discharge Disposition: Discharged to home or self care (routine discharge) documented as of this encounter Procedures Procedure Name Priority Date/Time Associated Diagnosis Comments INTUBATION Routine 02/05/2024 1:11 PM CDT documented in this encounter Results * Intubation/Airway (02/05/2024 1:11 PM CDT) Narrative Cley Friend APRN, CRNA - 02/05/2024 1:11 PM [...] unchanged and oral mucosa unchanged Performed by: BIBI: Cely Friend APRN, BIBI Events Anesthesia start: 02/05/2024 12:52 PM Intubation time: 02/05/2024 12:59 PM Marcus Hanna MD PROCEDURES documented in this encounter Visit Diagnoses Not on filedocumented in this encounter Administered Medications Inactive Administered Medications - up to 3 most recent administrations Medication Order MAR Action Action Date Dose Rate Site albumin (human) (HUMAN ALBUMIN GRIFOLS) 5 % injection Intravenous, PERIOP CONTINUOUS, Starting on Thu02/05/24 at 1310, Until Thu02/05/24 at 1554 New Bag 02/05/2024 1:07 PM CDT calcium chloride 10% injection Intravenous, INTRA-OP PRN ONCE MAY REPEAT, Starting on Thu02/05/24 at 1304, Until Thu02/05/24 at 1554 Given 02/05/2024 1:04 PM CDT 500 mg Given 02/05/2024 12:57 PM CDT 500 mg ceFAZolin (ANCEF) IVPB Intravenous, INTRA-OP PRN ONCE MAY REPEAT, Starting on Thu02/05/24 at 1310, Until Thu02/05/24 at 1554 Given 02/05/2024 1:10 PM CDT 2 g ephedrine (EMERPHED) 50 mg/ 10 mL injection Intravenous, INTRA-OP PRN ONCE MAY REPEAT, Starting on Thu02/05/24 at 1500, Until Thu02/05/24 at 1554 Given 02/05/2024 3:00 PM CDT 10 mg fentaNYL (SUBLIMAZE) 100 mcg/2mL injection Intravenous, INTRA-OP PRN ONCE MAY REPEAT, Starting on Thu02/05/24 at 1255, Until Thu02/05/24 at 1554 Given 02/05/2024 3:30 PM CDT 25 mcg Given 02/05/2024 12:55 PM CDT 50 mcg lactated ringers infusion Intravenous, PERIOP CONTINUOUS, Starting on Thu02/05/24 at 1310, Until Thu02/05/24 at 1554 New Bag 02/05/2024 3:05 PM CDT New Bag 02/05/2024 12:52 PM CDT lidocaine 2% injection Intravenous, INTRA-OP PRN ONCE MAY REPEAT, Starting on Thu02/05/24 at 1255, Until Thu02/05/24 at 1554 Given 02/05/2024 12:55 PM CDT 100 mg ondansetron (ZOFRAN) 4 mg/2 mL injection IV Push, INTRA-OP PRN ONCE MAY REPEAT, Starting on Thu02/05/24 at 1504, Until Thu02/05/24 at 1554 Given 02/05/2024 3:04 PM CDT 4 mg phenylephrine (JOHNATHAN-SYNEPHRINE) 0.2 mg/mL infusion Intravenous, PERIOP CONTINUOUS, Starting on Thu02/05/24 at 1335, Until Thu02/05/24 at 1554 Infusing 02/05/2024 3:34 PM CDT 0.2 mcg/kg/min 5.904 mL/hr Infusing 02/05/2024 2:15 PM CDT 0.4 mcg/kg/min 11.808 mL /hr Infusing 02/05/2024 2:03 PM CDT 0.2 mcg/kg/min 5.904 mL/ hr phenylephrine (JOHNATHAN-SYNEPHRINE) 1 mg/10mL injection IV Push, INTRA-OP PRN ONCE MAY REPEAT, Starting on Thu02/05/24 at 1331, Until Thu02/05/24 at 1554 Given 02/05/2024 1:31 PM CDT 50 mcg propofol (DIPRIVAN) 10 mg/mL injection emulsion Intravenous, INTRA-OP PRN ONCE MAY REPEAT, Starting on Thu02/05/24 at 1255, Until Thu02/05/24 at 1554 Given 02/05/2024 12:55 PM CDT 140 mg rocuronium bromide (ZEMURON) 10 mg/mL injection IV Push, INTRA-OP PRN ONCE MAY REPEAT, Starting on Thu02/05/24 at 1255, Until Thu02/05/24 at 1554 Given 02/05/2024 2:41 PM CDT 10 mg Given 02/05/2024 1:31 PM CDT 20 mg Given 02/05/2024 1:15 PM CDT 20 mg sugammadex (BRIDION) 200 mg/2 mL injection IV Push, INTRA-OP PRN ONCE MAY REPEAT, Starting on Thu02/05/24 at 1545, Until Thu02/05/24 at 1554 Given 02/05/2024 3:45 PM CDT 200 mg tranexamic Acid (CYKLOAPRON) 100 mg/mL injection Intravenous, INTRA-OP PRN ONCE MAY REPEAT, Starting on Thu02/05/24 at 1328, Until Thu02/05/24 at 1554 Given 02/05/2024 1:28 PM CDT 1,000 mg documented in this encounter
--- OUTSIDE RECORDS SUMMARY | 2024-02-08 17:14 | XMS_ITS | Encounter Summary ---
Author Name Unknown Organization [facility] Address [address] [place] [address] Phone Care Team Providers Care Larriman Helper Name Role Phone Unavailable Primary Care Provider Unavailabl e Reason for Visit * Reason Comments Leg Deformity * Auth/Cert (Routine) Specialty Diagnoses / Procedures Referred By Contac t Referred To Contact ORTHOPEDICS Diagnoses Acute cystitis with hematuria Other fracture of right femur, initial encounter for closed fracture (CMS) Humphrey Rose MD [address] [place] [address] Med [facility] In[facility](G3) [address] [facility] [address] [place] [address] Referral ID Status Reason Start Date Expiration Date Visits Re quested Visits Authorized [id number] 1 1 Encounter Details Date Type Department Care Team (Late st Contact Info) Description 02/05/2024 1:15 PM CDT - 02/05/2024 4:25 PM CDT Surgery OR P4 [address] [facility] [address] [place], [place] [id number] Dayo Henning MD [address] [place] [address] IM KRYSTLE FEMUR Social History Tobacco Use Types Packs/Day Years [...] Sign Reading Time Taken Comments Blood Pressure 94/57 02/05/2024 4:25 PM CDT Pulse 82 02/05/2024 4:25 PM CDT Temperature 36.6 ??C (97.9 ??F) 02/05/2024 3:55 PM CD T Respiratory Rate 12 02/05/2024 4:25 PM CDT Oxygen Saturation 93% 02/05/2024 4:25 PM CDT Inhaled Oxygen Concentration - - Weight 98.4 kg (217 lb) 02/02/2024 11:39 PM CDT Height 172.7 cm (5' 8) 02/02/2024 11:39 PM CDT Body Mass Index 32.99 02/02/2024 11:39 PM CDT documented in this encounter Progress Notes * Mando Briceno, PT - 02/08/2024 12:10 PM CDT Chart reviewed for PT follow-up session this AM, session attempted - unable to see as patient at procedure, will reattempt later this date vs tomorrow as time allows. Mando Briceno, PT, 02/08/2024 12:10 PM * Jesse Pineda RN - 02/08/2024 11:46 AM CDT TRANSFER NOTE Report called to nurse, of Cathy Raymond at [facility] Patient transported back to [facility] via Bed, Accompanied by Transporter, Patient's condition upon transfer VSS Jesse Pineda RN, 02/08/2024 11:47 AM * Homa Zarate MD - 02/08/2024 4:43 AM CDT Orthopaedic Surgery Progress Note 02/08/2024 S: NAEO. VSS. Pain well controlled. Denies new numbness, tingling, CP, SOB, fevers, chills. More concerned about stomach and ascites. Wound vac unit not functioning. O: BP 96/62 (Cuff Location: Left Arm) Pulse 76 Temp 36.8 ??C (98.2 ??F) (Oral) Resp 18 Ht 1.727 m (5' 8) Wt 98.4 kg (217 lb) SpO2 100% BMI 32.99 kg/m?? Exam: Gen: No acute distress. Resp: Non-labored breathing Msk: RLE -Pin site WV not functioning -Dressings c/d/i -Fires quad, EHL, FHL, TA, GaSC -No sensation to light touch in foot, diminished sensation throughout RLE -Foot warm Lab Results Component Value Date/Time WBC 9.53 02/07/2024 0605 WBC 5.51 02/05/2024 0915 HGB 9.5 (L) 02/07/2024 0605 HGB 8.8 (L) 02/06/2024 0710 PLT 149 (L) 02/07/2024 0605 PLT 164 02/05/2024 0915 CR 0.58 02/07/2024 0605 CR 0.61 02/06/2024 0710 Lab Results (Last 120 hours) Procedure Component Value Ref Range Date/Time URINE CULTURE [[id number]] Collected: 02/02/241702 Specimen: Urine Updated: 02/02/242204 BODY FLUID CULTURE:INCLUDES GRAM STAIN [[id number]] Collected: 02/02/241950 Specimen: Peritoneal Fluid from Peritoneum Updated: 02/02/242030 Gram Stain Report -- PMN's seen. No organisms seen. Assessment/Plan: Cathy Raymond is a 58 y.o. old female with alcoholic cirrhosis who presents with a right femur fracture now s/p IMN R femur on 02/[address] Henning. Her blood culture (10/06) was positive for gram positive rods on 02/03, in discussion with ID it was felt this was very likely a contaminant. Patient also with UTI, probably right foot infection, and chronic sigmoid distension. Obtain replacement wound unit. Medicine Primary Activity: up with assist Weightbearing restrictions: NWB RLE, ok to WB for transfers Antibiotics: Continue ancef per ID Diet: ADAT Andrade: Remove POD1 DVT prophylaxis: Lovenox 40mg daily x 4 weeks Wound/Incision Care/Vac: Wound vac over pin sites to remain pending output. OK to reinforce dressings as needed Pain management: Recommend multimodal Physical Therapy/Occupational Therapy: Eval and treat Labs: Hgb POD1, trend until stable Disposition: Ready for discharge when patient is mobilizing safely as determined by physical therapy evaluation, pain is controlled on oral medications, tolerating a diet, voiding at baseline, bowel is functioning (stooling or passing flatus), and patient is medically stable. Follow Up: Follow-up with Dr. Henning team in 2 weeks for wound check Vignesh Jorge MD Orthopaedic Surgery, PGY-3 Orthopedic Staff Note: Patient discussed with resident and above documentation reviewed. Agree with daily progress note and care plan as described above. Homa Zarate MD, 02/08/2024 1:05 PM Orthopedic Dept. Staff Physician * Autumn Jerome MD - 02/07/2024 2:43 PM CDT MEDICINE PROGRESS NOTE Cathy Raymond : 1965 Sex: female Patient Summary: 58yo with decompensated cirrhosis with significant ascites, who presents with a displaced periprosthetic femur fracture from a fall at home. Pt also noted to have severe bowel distension on her CT a/p determined to be chronic. Now s/p right femur IMN Assessment & Plan: Acute displaced angulated periprosthetic fracture of the distal femur s/p IMN R Femur # Osteoporosis managed with oral alendronate # Prior left femur fracture s/p IMN 2019 - Pain control with scheduled acetaminophen and PRN oxycodone - Proximal tibia krystle placement and traction performed in the ED, - palliative care consulted -patient accepts the risk of surgery - GI saw patient and provided predicted post operative outcomes for major orthopedic surgery by ZE. 30-day mortality: 2.4% 90-day mortality: 6.4% 180-day mortality: 8.3% 90-day decompensation: 10.1% Defer to orthopedic surgery team to discuss risk/benefits of surgery in the setting of decompensated cirrhosis -NWB right lower extremity -pain control with prn oxycodone and iv dilaudid, scheduled low dose acetaminophen #diabetic neuropathic ulceration, full thickness, with fat layer exposed #MSSA positve right foot wound culture Podiatry consulted and expressed draining from foot sent for culture -culture growing MSSA currently covered with cefazolin, -wound dressings orders entered by podiatry to be completed by nursing #MSSA bacteremia #Bacillus species not anthracis in one set of blood culture-contaminant Blood cultures from outside hospital one set finalized and growing MSSA. 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 # Alcohol use disorder in early remission (last drink 3 weeks ago) - Will hold diuretics preoperatively - Paracentesis with fluid studies performed in the ED, 4 L removed, no evidence of SBP - can repeat paracentesis as needed for ascites, plan for repeat therapeutic paracentesis on 02/07 -plan to resume furosemide and spironolactone #Ecoli UTI with microscopic hematuria -treat with cefazolin #Urinary retention Patient noted to be retaining urine, requiring straight catheterization -continue to monitor -straight cath as needed # Significant distention of the sigmoid colon, chronic seen in imaging since 2017 # Possible sigmoid volvulus (ruled out) # Complicated multifactorial polyneuropathy - Lactate was normal and there is no evidence of perforation or peritonitis - GI and surgery consulted and have signed off,no surgical intervention or endoscopic intervention needed - Discussed imaging finding with radiology and the findings in the sigmoid are chronic seen in imaging dating back to 2017 -continue bowel regimen # Lower extremity edema with weeping LE wounds # Probable cellulitis of the left foot -on cefazolin #Hypokalemia (Resolved) Potassium 5.2 # Anemia Hemoglobin 9.5 # Hypothyroidism on levothyroxine # Chronic neuropathic pain on gabapentin # Diabetes mellitus type 2 # Obstructive sleep apnea # Obesity with BMI 32 # Vitamin B12 deficiency # CIDP # Neurogenic bowel/bladder # Seasonal allergies # Major depression # Constipation # Insomnia # GERD - Continue CASH CLERK cetirizine, citalopram, gabapentin, levothyroxine, pantoprazole, PEG/senna, trazodone - HOLD oxybutynin - Check Hb A1c Subjective/Events of Past 24 Hours: Hospital Day: 5 Reports that pain is getting a little less She is eating and drinking Interested in having paracentesis Thinks she had a bm Some pain when she moves Objective: Physical Exam GEN: NAD, laying in bed RES: clear lungs, on wheezing, rales or rhonchi CV: r/r/r, no murmurs, rubs or gallops ABD: distended , nontender to palpation EXT: right extremity in a dressing, Labs reviewed Cbc and bmp unremarkable . MELD 3.0: 15 at 02/07/2024 6:05 AM MELD-Na: 14 at 02/07/2024 6:05 AM Calculated from: Serum Creatinine: 0.58 mg/dL (Using min of 1 mg/dL) at 02/07/2024 6:05 AM Serum Sodium: 135 mEq/L at 02/07/2024 6:05 AM Total Bilirubin: 0.9 mg/dL (Using min of 1 mg/dL) at 02/07/2024 6:05 AM Serum Albumin: 2.3 g/dL at 02/07/2024 6:05 AM INR(ratio): 1.6 at 02/06/2024 7:10 AM Age at listing (hypothetical): 58 years Sex: Female at 02/07/2024 6:05 AM Charge Capture Pit Clerk * Dayo Henning MD - 02/07/2024 7:58 AM CDT Orthopaedic Surgery Progress Note 02/07/2024 S: NAEO. VSS, pressures slightly soft. Pain well controlled. Denies new numbness, tingling, CP, SOB, fevers, chills. Tolerating a diet. Voiding independently. Sat at the edge of bed yesterday with therapy. No concerns this AM. O: BP 95/61 (Cuff Location: Left Arm) Pulse 73 Temp 36.5 ??C (97.7 ??F) (Oral) Resp 18 Ht 1.727 m (5' 8) Wt 98.4 kg (217 lb) SpO2 100% BMI 32.99 kg/m?? Exam: Gen: No acute distress. Resp: Non-labored breathing Msk: RLE -Incisional WV with good seal -Dressings c/d/i -Fires quad, EHL, FHL, TA, GaSC -No sensation to light touch in foot, diminished sensation throughout RLE -Foot warm Lab Results Component Value Date/Time WBC 5.51 02/05/2024 0915 WBC 4.55 02/04/2024 0640 HGB 8.8 (L) 02/06/2024 0710 HGB 9.4 (L) 02/05/2024 0915 PLT 164 02/05/2024 0915 PLT 152 02/04/2024 0640 CR 0.58 02/07/2024 0605 CR 0.61 02/06/2024 0710 Lab Results (Last 120 hours) Procedure Component Value Ref Range Date/Time URINE CULTURE [[id number]] Collected: 02/02/24 170 Specimen: Urine Updated: 02/02/242204 BODY FLUID CULTURE:INCLUDES GRAM STAIN [[id number]] Collected: 02/02/241950 Specimen: Peritoneal Fluid from Peritoneum Updated: 02/02/242030 Gram Stain Report -- PMN's seen. No organisms seen. Assessment/Plan: Cathy Raymond is a 58 y.o. old female with alcoholic cirrhosis who presents with a right femur fracture now s/p IMN R femur on 02/[address] Henning. Her blood culture (10/06) was positive for gram positive rods on 02/03, in discussion with ID it was felt this was very likely a contaminant. Patient also with UTI, probably right foot infection, and chronic sigmoid distension. Medicine Primary Activity: up with assist Weightbearing restrictions: NWB RLE, ok to WB for transfers Antibiotics: Continue ancef per ID Diet: ADAT Andrade: Remove POD1 DVT prophylaxis: Lovenox 40mg daily x 4 weeks Wound/Incision Care/Vac: Wound vac over pin sites to remain pending output. OK to reinforce dressings as needed Pain management: Recommend multimodal Physical Therapy/Occupational Therapy: Eval and treat Labs: Hgb POD1, trend until stable Disposition: Ready for discharge when patient is mobilizing safely as determined by physical therapy evaluation, pain is controlled on oral medications, tolerating a diet, voiding at baseline, bowel is functioning (stooling or passing flatus), and patient is medically stable. Follow Up: Follow-up with Dr. Henning team in 2 weeks for wound check Mira Espinoza MD Orthopaedic Surgery PGY-3 Orthopedic Staff Note: Patient discussed with resident and above documentation reviewed. Agree with daily progress note and care plan as described above. Dayo Henning MD, 02/08/2024 7:26 AM Orthopedic Dept. Staff Physician * Autumn Jerome MD - 02/06/2024 1:41 PM CDT MEDICINE PROGRESS NOTE Cathy Raymond : 1965 Sex: female Patient Summary: 58yo with decompensated cirrhosis with significant ascites, who presents with a displaced periprosthetic femur fracture from a fall at home. Pt also noted to have severe bowel distension on her CT a/p determined to be chronic. No s/p right femur IMN Assessment & Plan: Acute displaced angulated periprosthetic fracture of the distal femur s/p IMN R Femur # Osteoporosis managed with oral alendronate # Prior left femur fracture s/p IMN 2019 - Pain control with scheduled acetaminophen and PRN oxycodone - Proximal tibia krystle placement and traction performed in the ED, - palliative care consulted -patient accepts the risk of surgery - GI saw patient and provided predicted post operative outcomes for major orthopedic surgery by ZE. 30-day mortality: 2.4% 90-day mortality: 6.4% 180-day mortality: 8.3% 90-day decompensation: 10.1% Defer to orthopedic surgery team to discuss risk/benefits of surgery in the setting of decompensated cirrhosis -NWB right lower extremity -pain control with prn oxycodone and iv dilaudid, scheduled low dose acetaminophen #diabetic neuropathic ulceration, full thickness, with fat layer exposed #MSSA positve right foot wound culture Podiatry consulted and expressed draining from foot sent for culture -culture growing MSSA currently covered with cefazolin, -wound dressings orders entered by podiatry to be completed by nursing #MSSA bacteremia #Bacillus species not anthracis in one set of blood culture-contaminant Blood cultures from outside hospital one set finalized and growing MSSA. 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 # Alcohol use disorder in early remission (last drink 3 weeks ago) - Will hold diuretics preoperatively - Paracentesis with fluid studies performed in the ED, 4 L removed, no evidence of SBP - can repeat paracentesis as needed for ascites #Ecoli UTI with microscopic hematuria -treat with cefazolin # Significant distention of the sigmoid colon, chronic seen in imaging since 2017 # Possible sigmoid volvulus (ruled out) # Complicated multifactorial polyneuropathy - Lactate was normal and there is no evidence of perforation or peritonitis - GI and surgery consulted and have signed off,no surgical intervention or endoscopic intervention needed - Discussed imaging finding with radiology and the findings in the sigmoid are chronic seen in imaging dating back to 2017 -continue bowel regimen # Lower extremity edema with weeping LE wounds # Probable cellulitis of the left foot -on cefazolin #Hypokalemia (Resolved) Potassium 4.1 # Anemia Hemoglobin 9.4 # Hypothyroidism on levothyroxine # Chronic neuropathic pain on gabapentin # Diabetes mellitus type 2 # Obstructive sleep apnea # Obesity with BMI 32 # Vitamin B12 deficiency # CIDP # Neurogenic bowel/bladder # Seasonal allergies # Major depression # Constipation # Insomnia # GERD - Continue CASH CLERK cetirizine, citalopram, gabapentin, levothyroxine, pantoprazole, PEG/senna, trazodone - HOLD oxybutynin - Check Hb A1c Subjective/Events of Past 24 Hours: Hospital Day: 4 She reports that she is having pain in her right hip especially with movement Abdomen is distended She is feeling sleepy Objective: Physical Exam GEN: intermittently in distress secondary to pain RES: clear lungs, on wheezing, rales or rhonchi CV: r/r/r, no murmurs, rubs or gallops ABD: distended , nontender to palpation SKIN: improving redness of the abdominal folds Labs reviewed Inr: 1.6 Cbc and bmp unremarkable . MELD 3.0: 15 at 02/06/2024 7:10 AM MELD-Na: 14 at 02/06/2024 7:10 AM Calculated from: Serum Creatinine: 0.61 mg/dL (Using min of 1 mg/dL) at 02/06/2024 7:10 AM Serum Sodium: 135 mEq/L at 02/06/2024 7:10 AM Total Bilirubin: 0.8 mg/dL (Using min of 1 mg/dL) at 02/06/2024 7:10 AM Serum Albumin: 2.3 g/dL at 02/06/2024 7:10 AM INR(ratio): 1.6 at 02/06/2024 7:10 AM Age at listing (hypothetical): 58 years Sex: Female at 02/06/2024 7:10 AM Charge Capture Pit Clerk * Cely Buck DPM - 02/06/2024 8:46 AM CDT Images from the original note were not included. Podiatric Surgery Inpatient PROGRESS - PGY-1 Cathy Raymond : 1965 Sex: female Patient Summary: 58 y.o. female with decompensated cirrhosis with ascites, neuropathy with neurogenic bowel and bladder, alcohol use d/o, hypothyroidism, T2DM, MAX admitted for femur fracture and bacteremia. ASSESSMENT: Diabetic neuropathic ulceration, full thickness, with fat layer exposed, right foot - Present on admission - Purulence expressed 02/04/2024, no purulence 02/05/2024. -Improved Controlled Diabetes Mellitus with peripheral neuropathy, bilateral - last HbA1c 4.4 (02/02/2024) - HbA1c 6.5 on 09/10/2022 History of alcohol use disorder, currently in remission -3 weeks since last use RECOMMENDATIONS: 1. Dressing: Daily dressing changes with betadine, 4x4 gauze, and kerlix wrap. Wound has continued to improve concern. Ordered for nursing to perform daily dressing changes. 2. Activity: NWB RLE per orthopedics. No restrictions from podiatric perspective. 3. Antibiotics: Cultures from right foot purulence growing Staph aureus. Recommend 7-day course of p.o. antibiotics. 4. Vascular: No vascular workup indicated at this time. Pedal pulses palpable 5. Surgery: No surgical intervention anticipated at this time from a podiatric standpoint. 6. Follow-up: Wound continues to improve without signs of infection in the past 2 days. Podiatry will sign off from the patient's care at this time. Please page cash applications analyst resident with questions. INTERVAL ILLNESS: Patient seen resting in bed this morning. States she has been not sleeping well since surgery with orthopedics yesterday. States that she has pain in her right leg but not her foot. States her foot has been doing well REVIEW OF SYSTEMS: ALL other ROS negative except for those noted in HPI. PHYSICAL EXAMINATIONS: Temp (24hrs), Av.2 ??C (97.1 ??F), Min:35.5 ??C (95.9 ??F), Max:36.6 ??C (97.9 ??F) General: No apparent distress, alert and oriented x 3 Vascular: Pulses: PT/DP pulses palpable Hair growth absent at the level of the digits Capillary filling time less than three seconds bilaterally digits 1-5 Lower extremity/foot edema along bilateral feet and lower legs. Neurological: Protective sensation absent to light touch bilaterally. Strength and tone testing deferred Dermatologic: There are open lesions on right foot Location: Plantar lateral aspect of right foot Measures 0.5 cm x 0.2 cm. Depth of 0.1 cm, does not probe Base is granular Drainage: Mild sanguinous drainage. No purulence. Erythema: Minimal periwound erythema, improving from yesterday Toenails are thick, discolored and dystrophic Skin is brawny, thin, atrophic, dry and scaling. Musculoskeletal: Palpatory tenderness absent upon exam to right foot REVIEW OF LABORATORY, PATHOLOGY, AND RADIOLOGY DATA: Lab results: Lab Results Component Value Date WBC 5.51 02/05/2024 RBC 3.11 (L) 02/05/2024 HGB 8.8 (L) 02/06/2024 HCT 28.9 (L) 02/05/2024 PLT 164 02/05/2024 Lab Results Component Value Date NA 135 02/06/2024 K 4.4 02/06/2024 CHLORIDE 104 02/06/2024 CO2 26 02/06/2024 GLU 105 (H) 02/06/2024 UN 11 02/06/2024 CR 0.61 02/06/2024 CA 8.1 (L) 02/06/2024 Lab Results Component Value Date/Time PT 18.3 (H) 02/06/2024 0710 APTT 33.0 02/02/2024 1600 INR 1.6 (H) 02/06/2024 0710 Lab Results Component Value Date/Time HGBA1C 4.4 02/02/2024 1600 XR FOOT RIGHT 3 V AP/OBL/LAT* (02/02/2024 18:03) X-ray independently read and reviewed by me. They show no cortical erosions to suggest osteomyelitis nor subcutaneous gas. Questionable artifact versus foreign body at the plantar aspect of the forefoot. Primary care physician: No primary care provider on file. Barbara Mercer DPM, 02/06/2024 8:46 AM Surgery Discharge Milestones (Inpatient Primary Team only): FACULTY NOTE FACULTY WITH RESIDENT: I saw and evaluated the patient on the date of the resident's note. I discussed with the resident and agree with the resident's findings and plan documented in the resident's note. Any revisions by me are documented. Cely Buck DPM, 02/07/2024 8:19 AM * Dayo Henning MD - 02/06/2024 4:37 AM CDT Orthopaedic Surgery Progress Note 02/06/2024 S: NAEO. VSS, pressures slightly soft. Pain well controlled. Denies new numbness, tingling, CP, SOB, fevers, chills. Tolerating a diet. Voiding independently. Has not been OOB. No concerns this AM. O: BP 95/64 (Cuff Location: Left Arm) Pulse 70 Temp 36 ??C (96.8 ??F) (Tympanic) Resp 14 Ht 1.727 m (5' 8) Wt 98.4 kg (217 lb) SpO2 93% BMI 32.99 kg/m?? Exam: Gen: No acute distress. Resp: Non-labored breathing Msk: RLE -Incisional WV with good seal -Dressings c/d/i -Fires quad, EHL, FHL, TA, GaSC -No sensation to light touch in foot, diminished sensation throughout RLE -Foot warm Lab Results Component Value Date/Time WBC 5.51 02/05/2024 0915 WBC 4.55 02/04/2024 0640 HGB 9.4 (L) 02/05/2024 0915 HGB 9.2 (L) 02/04/2024 0640 PLT 164 02/05/2024 0915 PLT 152 02/04/2024 0640 CR 0.62 02/05/2024 0915 CR 0.64 02/04/2024 0640 Lab Results (Last 120 hours) Procedure Component Value Ref Range Date/Time URINE CULTURE [[id number]] Collected: 02/02/24 170 Specimen: Urine Updated: 02/02/242204 BODY FLUID CULTURE:INCLUDES GRAM STAIN [[id number]] Collected: 02/02/241950 Specimen: Peritoneal Fluid from Peritoneum Updated: 02/02/242030 Gram Stain Report -- PMN's seen. No organisms seen. Assessment/Plan: Cathy Raymond is a 58 y.o. old female with alcoholic cirrhosis who presents with a right femur fracture now s/p IMN R femur on 02/[address] Henning. Her blood culture (10/06) was positive for gram positive rods on 02/03, in discussion with ID it was felt this was very likely a contaminant. Patient also with UTI, probably right foot infection, and chronic sigmoid distension. Medicine Primary Activity: up with assist Weightbearing restrictions: NWB RLE, ok to WB for transfers Antibiotics: Continue ancef per ID Diet: ADAT Andrade: Remove POD1 DVT prophylaxis: Lovenox 40mg daily x 4 weeks Wound/Incision Care/Vac: Wound vac over pin sites to remain pending output. OK to reinforce dressings as needed Pain management: Recommend multimodal Physical Therapy/Occupational Therapy: Eval and treat Labs: Hgb POD1, trend until stable Disposition: Ready for discharge when patient is mobilizing safely as determined by physical therapy evaluation, pain is controlled on oral medications, tolerating a diet, voiding at baseline, bowel is functioning (stooling or passing flatus), and patient is medically stable. Follow Up: Follow-up with Dr. Henning team in 2 weeks for wound check Mira Espinoza MD Orthopaedic Surgery PGY-3 Orthopedic Staff Note: Patient discussed with resident and above documentation reviewed. Agree with daily progress note and care plan as described above. Dayo Henning MD, 02/06/2024 11:33 AM Orthopedic Dept. Staff Physician * Autumn Jerome MD - 02/05/2024 12:51 PM CDT MEDICINE PROGRESS NOTE Cathy Raymond : 1965 Sex: female Patient Summary: 58yo with decompensated cirrhosis with significant ascites, who presents with a displaced periprosthetic femur fracture from a fall at home. Pt also noted to have severe bowel distension on her CT a/p determined to be chronic. Assessment & Plan: Acute displaced angulated periprosthetic fracture of the distal femur # Osteoporosis managed with oral alendronate # Prior left femur fracture s/p IMN 2019 - Pain control with scheduled acetaminophen and PRN oxycodone - Proximal tibia krystle placement and traction performed in the ED, - palliative care consulted -patient accepts the risk of surgery - GI saw patient and provided predicted post operative outcomes for major orthopedic surgery by ZE. 30-day mortality: 2.4% 90-day mortality: 6.4% 180-day mortality: 8.3% 90-day decompensation: 10.1% Defer to orthopedic surgery team to discuss risk/benefits of surgery in the setting of decompensated cirrhosis -NWB right lower extremity =going to surgery today with orthopedics #diabetic neuropathic ulceration, full thickness, with fat layer exposed Podiatry consulted and expressed draining from foot sent for culture -follow up culture -outside hospital reports MSSA from right foot culture not sure where on right foot it was collected from #MSSA bacteremia #Bacillus species not anthracis bacteremia #MSSA positve right foot wound culture Blood cultures from outside hospital one set finalized and growing MSSA. 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 # Alcohol use disorder in early remission (last drink 3 weeks ago) - Will hold diuretics preoperatively - Paracentesis with fluid studies performed in the ED, 4 L removed, no evidence of SBP - can repeat paracentesis as needed for ascites #Ecoli UTI with microscopic hematuria -continue ceftriaxone # Significant distention of the sigmoid colon, chronic seen in imaging since 2017 # Possible sigmoid volvulus (ruled out) # Complicated multifactorial polyneuropathy - Lactate was normal and there is no evidence of perforation or peritonitis - GI and surgery consulted and have signed off,no surgical intervention or endoscopic intervention needed - Discussed imaging finding with radiology and the findings in the sigmoid are chronic seen in imaging dating back to 2017 # Lower extremity edema with weeping LE wounds # Probable cellulitis of the left foot - Continue ceftriaxone for non-purulent cellulitis involving the left lower leg #Hypokalemia (Resolved) Potassium 4.1 # Anemia Hemoglobin 9.4 # Hypothyroidism on levothyroxine # Chronic neuropathic pain on gabapentin # Diabetes mellitus type 2 # Obstructive sleep apnea # Obesity with BMI 32 # Vitamin B12 deficiency # CIDP # Neurogenic bowel/bladder # Seasonal allergies # Major depression # Constipation # Insomnia # GERD - Continue CASH CLERK cetirizine, citalopram, gabapentin, levothyroxine, pantoprazole, PEG/senna, trazodone - HOLD oxybutynin - Check Hb A1c Subjective/Events of Past 24 Hours: Hospital Day: 3 No complaints, she would like to eat lunch Objective: Physical Exam GEN: NAD, laying in bed RES: clear lungs, on wheezing, rales or rhonchi CV: r/r/r, no murmurs, rubs or gallops ABD: distended Labs reviewed Inr: 1.5 Cbc and bmp unremarkable . MELD 3.0: 16 at 02/05/2024 9:15 AM MELD-Na: 11 at 02/05/2024 9:15 AM Calculated from: Serum Creatinine: 0.62 mg/dL (Using min of 1 mg/dL) at 02/05/2024 9:15 AM Serum Sodium: 134 mEq/L at 02/05/2024 9:15 AM Total Bilirubin: 0.7 mg/dL (Using min of 1 mg/dL) at 02/05/2024 9:15 AM Serum Albumin: 2.2 g/dL at 02/05/2024 9:15 AM INR(ratio): 1.5 at 02/05/2024 9:15 AM Age at listing (hypothetical): 58 years Sex: Female at 02/05/2024 9:15 AM Charge Capture Pit Clerk * Gladys Samuels DPM - 02/05/2024 7:46 AM CDT Images from the original note were not included. Podiatric Surgery Inpatient PROGRESS - PGY-1 Cathy Raymond : 1965 Sex: female Patient Summary: 58 y.o. female with decompensated cirrhosis with ascites, neuropathy with neurogenic bowel and bladder, alcohol use d/o, hypothyroidism, T2DM, MAX admitted for femur fracture and bacteremia. ASSESSMENT: Diabetic neuropathic ulceration, full thickness, with fat layer exposed erythema improving since yesterday - Present on admission - Purulence expressed 02/04/2024, no purulence 02/05/2024. Controlled Diabetes Mellitus with peripheral neuropathy, bilateral - last HbA1c 4.4 (02/02/2024) - HbA1c 6.5 on 09/10/2022 History of alcohol use disorder, currently in remission -3 weeks since last use RECOMMENDATIONS: 1. Dressing: Daily dressing changes with betadine, 4x4 gauze, and kerlix wrap. Podiatric surgery will manage dressings at this time. 2. Activity: NWB RLE per orthopedics 3. Antibiotics: Pending culture of right foot purulence on 02/04/2024 4. Vascular: No vascular workup indicated at this time. Pedal pulses palpable 5. Surgery: No surgical intervention anticipated at this time from a podiatric standpoint. 6. Follow-up: Podiatry will continue to follow while inpatient. Please page cash applications analyst resident with questions. Patient was discussed with cash applications analyst staff, Dr. Samuels CHIEF COMPLAINT: Right foot blister INTERVAL ILLNESS: Cathy Raymond is a 58 y.o. female presenting with right foot wound that she first noticed on Thursday. Today she states she is doing well, just feeling tired. Denies any new symptoms or concerns. Tolerated dressing change well. PAST MEDICAL HISTORY: Patient Active Problem List Diagnosis Date Noted Other fracture of right femur, initial encounter for closed fracture ([facility]) 02/02/2024 CURRENT HEALTH STATUS Medications: Current Facility-Administered Medications Medication Route Frequency clotrimazole (LOTRIMIN) 1% cream Topical bid bisacodyl (DULCOLAX) suppository 10 mg Rectal daily nystatin 313176 unit/g powder Topical bid citalopram (CeleXA) tablet 20 mg Oral daily traZODone (DESYREL) tablet 100 mg Oral hs pramipexole (MIRAPEX) tablet 0.5 mg Oral bid bisacodyl (DULCOLAX) suppository 10 mg Rectal daily prn polyethylene glycol 3350 (MIRALAX;GLYCOLAX) packet 17 g Oral daily carboxymethylcellulose sod PF solution 1 drop eye BOTH tid levothyroxine (SYNTHROID) tablet 50 mcg Oral qAM AC pantoprazole (PROTONIX) tablet 40 mg Oral qAM AC thiamine (VITAMIN B1) tablet 100 mg Oral daily VTE prophylaxis contraindicated Does not apply protocol oxyCODONE (ROXICODONE) tablet 5-10 mg Oral q4h prn HYDROmorphone PF (DILAUDID) 1 mg/mL injection 0.5 mg IV Push q4h prn GABApentin (NEURONTIN) tablet 600 mg Oral tid acetaminophen (TYLENOL) tablet 325 mg Oral q6h cefTRIAXone (ROCEPHIN) 2 g in NaCl 0.9% 100 mL IVPB Intravenous q24h Allergies and drug reactions: Allergies Allergen Reactions Aspirin Unknown Bleeding Hydrocodone Tachycardia Heart races. Tolerates oxycodone ok. Adhesive Rash Reaction to steri-strips Adhesive Tape Rash Amoxicillin-Pot Clavulanate Abdominal Pain Capsaicin Erythema Clavulanic Acid Abdominal Pain Ibuprofen Unknown bleeding Naproxen Other (see comments) Sulfamethoxazole-Trimethoprim Itching/Pruritus and Rash Tolmetin Unknown PSYCHOSOCIAL HISTORY Occupational History Not on file Tobacco Use Smoking status: Not on file Smokeless tobacco: Not on file Substance and Sexual Activity Alcohol use: Not on file Drug use: Not on file Sexual activity: Not on file Social History Narrative Tiny is to her , Jai. She has one daughter and two grandchildren. She is Christianity. When feeling well she likes to have friends over, do word finds and play a slot game. REVIEW OF SYSTEMS: ALL other ROS negative except for those noted in HPI. PHYSICAL EXAMINATIONS: Temp (24hrs), Av.4 ??C (97.6 ??F), Min:35.8 ??C (96.4 ??F), Max:36.9 ??C (98.4 ??F) General: No apparent distress, alert and oriented x 3 Vascular: Pulses: PT/DP pulses palpable Hair growth absent at the level of the digits Capillary filling time less than three seconds bilaterally digits 1-5 Lower extremity/foot edema along bilateral feet and lower legs. Neurological: Protective sensation absent to light touch bilaterally. Strength and tone testing deferred Dermatologic: There are open lesions on right foot Location: Plantar lateral aspect of right foot Measures 3.5 cm x 2 cm. Depth of 0.4 cm at the sinus tract, 0.1 cm to the remainder of the wound does not probe to bone Base is granular Drainage: Mild sanguinous drainage. No purulence expressed today. Erythema: Mild periwound erythema, improving from yesterday Toenails are thick, discolored and dystrophic Skin is brawny, thin, atrophic, dry and scaling. Musculoskeletal: Palpatory tenderness absent upon exam to right foot REVIEW OF LABORATORY, PATHOLOGY, AND RADIOLOGY DATA: Lab results: Lab Results Component Value Date WBC 4.55 02/04/2024 RBC 3.03 (L) 02/04/2024 HGB 9.2 (L) 02/04/2024 HCT 28.8 (L) 02/04/2024 PLT 152 02/04/2024 Lab Results Component Value Date NA 136 02/04/2024 K 4.3 02/04/2024 CHLORIDE 102 02/04/2024 CO2 26 02/04/2024 GLU 76 02/04/2024 UN 12 02/04/2024 CR 0.64 02/04/2024 CA 7.9 (L) 02/04/2024 Lab Results Component Value Date/Time PT 16.2 (H) 02/04/2024 0640 APTT 33.0 02/02/2024 1600 INR 1.4 (H) 02/04/2024 0640 Lab Results Component Value Date/Time HGBA1C 4.4 02/02/2024 1600 XR FOOT RIGHT 3 V AP/OBL/LAT* (02/02/2024 18:03) X-ray independently read and reviewed by me. They show no cortical erosions to suggest osteomyelitis nor subcutaneous gas. Questionable artifact versus foreign body at the plantar aspect of the forefoot. Primary care physician: No primary care provider on file. Chuckie Rock DPM, 02/05/2024 7:46 AM PODIATRIC SURGERY FACULTY NOTE I discussed with the resident and agree with the resident's findings and plan documented in the resident's note. Any revisions by me are documented.I discussed the patient with the resident and agreewith the resident???s findings and plan documented in the resident???s note. Any revisions by me are documented in the note. I was present during the procedure listed above in the resident documentation. Gladys Samuels DPM, 02/05/2024 10:40 AM * Dayo Henning MD - 02/05/2024 4:38 AM CDT Orthopaedic Surgery Progress Note 02/05/2024 S: 1 blood cxs from 02/02 with g+ bacilli, thus procedure cancelled yesterday. Also seen bypodiatryfor diabetic neuropathic ulceration. NAEO. Pain well controlled. Denies new numbness, tingling, CP,SOB, fevers, chills. NPO since midnight. Voiding independently. Working with therapy. No concerns this AM. O: BP 100/77 (Cuff Location: Left Arm) Pulse 88 Temp 36.9 ??C (98.4 ??F) (Oral) Resp 18 Ht 1.727 m (5' 8) Wt 98.4 kg (217 lb) SpO2 98% BMI 32.99 kg/m?? Exam: Gen: No acute distress. Resp: Non-labored breathing Msk: RLE -Skeletal traction in place -Fires quad, EHL, FHL, TA, GaSC -No sensation to light touch in foot, diminished sensation throughout RLE -Foot warm Lab Results Component Value Date/Time WBC 4.55 02/04/2024 0640 WBC 5.74 02/03/2024 0803 HGB 9.2 (L) 02/04/2024 0640 HGB 9.4 (L) 02/03/2024 0803 PLT 152 02/04/2024 0640 PLT 155 02/03/2024 0803 CR 0.64 02/04/2024 0640 CR 0.70 02/03/2024 0803 Lab Results (Last 120 hours) Procedure Component Value Ref Range Date/Time URINE CULTURE [[id number]] Collected: 02/02/241702 Specimen: Urine Updated: 02/02/242204 BODY FLUID CULTURE:INCLUDES GRAM STAIN [[id number]] Collected: 02/02/241950 Specimen: Peritoneal Fluid from Peritoneum Updated: 02/02/242030 Gram Stain Report -- PMN's seen. No organisms seen. Assessment/Plan: Cathy Raymond is a 58 y.o. old female with alcoholic cirrhosis who presents with a right femur fracture. Patient also with UTI, probably right foot infection, and possible sigmoidvolvulus. Risks, benefits and alternatives of both operative and closed treatment were discussed. Questions answered. Her blood culture (10/06) was positive for gram positive rods on 02/03. OR was deferred for ID consult and speciation. Also with e. Coli UTI and cellulitis to R foot, on ceftriaxone. Patient remains NPO for possible OR today. - Admit to Medicine - Plan for OR: IMN L femur pending medical clearance -Consent: obtained -Pre-op labs: complete -Medicine clearance: pending -Surgery clearance: complete - Anticoagulation: hold in anticipation of OR - Antibiotics/tetanus: preop abx ordered - Xrays/imaging: complete - Activity: bedrest for now - Weight Bearing: NWB RLE - Pain control: per primary, recommend PO with IV for breakthrough pain - Diet: NPO since midnight for possible OR - Dispo: TBD - Follow-up: TBD Mira Espinoza MD Orthopaedic Surgery PGY-3 FACULTY NOTE I saw and evaluated the patient today, 02/05/2024. I discussed with the resident and agree with the resident???s findings and plan documented in the resident???s note from above. Any revisions by me are documented. I was asked by Dr. Michelle to continue to progress Ms. Raymond's care. Case discussed with Dr. Castorena/GOMEZ this morning in order to determine next steps regarding + blood cultures obtained at time of admission. Dr. Castorena felt that the newest blood culture was acontaminant. Patient has WBC of 5, afebrile and does not appear septic. Patient is optimized from aliver standpoint. Will plan to proceed with surgery in order to minimize risks of delayed fracture management including pneumonia, pressure ulcers, DVT. Ultimately the patient will benefit from urgent fixation of her right distal third periprosthetic femur fracture in order to improve mobility and hygiene. I discussed the benefits and risks associated with surgery with the patient. Risks include but not limited to: bleeding, infection, injury to nerves and/or blood vessels, fracture or fracture propagation, malunion, delayed union, nonunion, malrotation, limb length discrepancy, chronic pain and/or stiffness of the knee, wound complications, DVT and/or PE, hardware irritation and/or failure, potential need for additional surgery in the future including revision surgery, complications associated with anesthesia and . I explicitly discussed with patient that, given the patient's history of her liver cirrhosis, they are at increased risk for wound complications, infection and even . MELD score is 16. The patient has been optimized in order to reduce their surgical risk and they state that they understand theincreased risks. All questions were answered to their satisfaction and patient provided informed consent to proceed with surgery. Dayo Henning MD, 02/05/2024 3:16 PM * Autumn Jerome MD - 02/04/2024 10:34 AM CDT MEDICINE PROGRESS NOTE Cathy Raymond : 1965 Sex: female Patient Summary: 58yo with decompensated cirrhosis with significant ascites, who presents with a displaced periprosthetic femur fracture from a fall at home. Pt also noted to have severe bowel distension on her CT a/p determined to be chronic. Assessment & Plan: Acute displaced angulated periprosthetic fracture of the distal femur # Osteoporosis managed with oral alendronate # Prior left femur fracture s/p IMN 2019 - Pain control with scheduled acetaminophen and PRN oxycodone - Proximal tibia krystle placement and traction performed in the ED, - palliative care consulted -patient accepts the risk of surgery - GI saw patient and provided predicted post operative outcomes for major orthopedic surgery by ZE. 30-day mortality: 2.4% 90-day mortality: 6.4% 180-day mortality: 8.3% 90-day decompensation: 10.1% Defer to orthopedic surgery team to discuss risk/benefits of surgery in the setting of decompensated cirrhosis -NWB right lower extremity -possible surgery tomorrow, want to follow up on positive blood cultures and speciation -NPO at midnight #gram positive bacillus krystle bacteremia #staph coagulase positive bacteremia (possible contaminant) Gram positive cocci at outside hospital, in one anaerobic bottle, found to be coagulase positive staph, not further speciated yet, -5/1 blood cultures collected here growing gram positive rods in aerobic bottle, no growth of gpc from 02/02 -repeat blood cultures ordered on 02/03 -currently on ceftriaxone for possible cellulitis # Met-ALD related cirrhosis, 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 # Alcohol use disorder in early remission (last drink 3 weeks ago) - Will hold diuretics preoperatively - Paracentesis with fluid studies performed in the ED, 4 L removed, no evidence of SBP - can repeat paracentesis as needed for ascites # Significant distention of the sigmoid colon, chronic seen in imaging since 2017 # Possible sigmoid volvulus (ruled out) # Complicated multifactorial polyneuropathy - Lactate was normal and there is no evidence of perforation or peritonitis - GI and surgery consulted and have signed off,no surgical intervention or endoscopic intervention needed - Discussed imaging finding with radiology and the findings in the sigmoid are chronic seen in imaging dating back to 2017 # Lower extremity edema with weeping LE wounds # Probable cellulitis of the left foot - Continue ceftriaxone for non-purulent cellulitis involving the left lower leg #Hypokalemia (Resolved) Potassium 3.4 , received 40meq oral and 20meq IV, repeat 4.3 # Anemia Hemoglobin 9.2 # Microscopic hematuria # Mild asymptomatic pyuria -repeat urinalysis in the outpatient setting # Hypothyroidism on levothyroxine # Chronic neuropathic pain on gabapentin # Diabetes mellitus type 2 # Obstructive sleep apnea # Obesity with BMI 32 # Vitamin B12 deficiency # CIDP # Neurogenic bowel/bladder # Seasonal allergies # Major depression # Constipation # Insomnia # GERD - Continue CASH CLERK cetirizine, citalopram, gabapentin, levothyroxine, pantoprazole, PEG/senna, trazodone - HOLD oxybutynin - Check Hb A1c Subjective/Events of Past 24 Hours: Hospital Day: 2 Reports she is fine, would like to have surgery, reviewed the risk assessment from GI's note She denies other symptoms She is having some pain Objective: Physical Exam GEN: NAD, laying in bed RES: clear lungs, on wheezing, rales or rhonchi CV: r/r/r, no murmurs, rubs or gallops ABD: distended Labs reviewed Inr: 1.4 Cbc and bmp unremarkable . MELD 3.0: 14 at 02/04/2024 6:40 AM MELD-Na: 10 at 02/04/2024 6:40 AM Calculated from: Serum Creatinine: 0.64 mg/dL (Using min of 1 mg/dL) at 02/04/2024 6:40 AM Serum Sodium: 136 mEq/L at 02/04/2024 6:40 AM Total Bilirubin: 0.8 mg/dL (Using min of 1 mg/dL) at 02/04/2024 6:40 AM Serum Albumin: 2.2 g/dL at 02/04/2024 6:40 AM INR(ratio): 1.4 at 02/04/2024 6:40 AM Age at listing (hypothetical): 58 years Sex: Female at 02/04/2024 6:40 AM Charge Capture Pit Clerk * Homa Zarate MD - 02/04/2024 4:44 AM CDT Orthopaedic Surgery Progress Note 02/04/2024 S: Seen by palliative care, goal is to get back to walking, full code during surgery. Seen by GI, feel sigmoid distension is chronic, no plan for acute endoscopic intervention. NAEO. Pain well controlled. Denies new numbness, tingling, CP, SOB, fevers, chills. NPO since midnight. Voiding independently. Working with therapy. No concerns this AM. O: BP 93/65 (Cuff Location: Right Arm) Pulse 72 Temp 36.1 ??C (96.9 ??F) (Oral) Resp 18 Ht 1.727 m (5' 8) Wt 98.4 kg (217 lb) SpO2 90% BMI 32.99 kg/m?? Exam: Gen: No acute distress. Resp: Non-labored breathing Msk: RLE -Skeletal traction in place -Fires quad, EHL, FHL, TA, GaSC -No sensation to light touch in foot, diminished sensation throughout RLE -Foot warm Lab Results Component Value Date/Time WBC 5.74 02/03/2024 0803 WBC 7.34 02/02/2024 1601 HGB 9.4 (L) 02/03/2024 0803 HGB 9.3 (L) 02/02/2024 1601 PLT 155 02/03/2024 0803 PLT 176 02/02/2024 1601 CR 0.70 02/03/2024 0803 CR 0.72 02/02/2024 1601 Lab Results (Last 120 hours) Procedure Component Value Ref Range Date/Time URINE CULTURE [[id number]] Collected: 02/02/24 170 Specimen: Urine Updated: 02/02/242204 BODY FLUID CULTURE:INCLUDES GRAM STAIN [[id number]] Collected: 02/02/241950 Specimen: Peritoneal Fluid from Peritoneum Updated: 02/02/242030 Gram Stain Report -- PMN's seen. No organisms seen. Assessment/Plan: Cathy Raymond is a 58 y.o. old female with alcoholic cirrhosis who presents with a right femur fracture. Patient also with UTI, probably right foot infection, and possible sigmoidvolvulus. Risks, benefits and alternatives of both operative and closed treatment were discussed. Questions answered. - Admit to Medicine - Plan for OR: IMN L femur pending medical clearance -Consent: obtained -Pre-op labs: complete -Medicine clearance: pending -Surgery clearance: pending - Anticoagulation: hold in anticipation of OR - Antibiotics/tetanus: preop abx ordered - Xrays/imaging: complete - Activity: bedrest for now - Weight Bearing: NWB RLE - Pain control: per primary, recommend PO with IV for breakthrough pain - Diet: NPO since midnight for possible OR - Dispo: TBD - Follow-up: TBD Mira Espinoza MD Orthopaedic Surgery PGY-3 FACULTY NOTE I saw and evaluated the patient today, 02/04/2024. I discussed with the resident and agree with the resident???s findings and plan documented in the resident???s note from above. Any revisions by me are documented. Patient medically optimized this AM and checked in for surgery. However, before going back, hospitalist called with new results of positive blood cx from [place] as well as one from [facility]. They arereportedly two different classes of bacteria and she has been on IV ceftriaxone since admisison, sounclear if relevant or true positives. Given tenuous medical status and complex nature of procedure, agree to defer surgery today to allow for cx speciation, ID consult, further medical optimization.Patient stable in traction. Will repost case for tomorrow for possible surgery then. Homa Zarate MD, 02/04/2024 2:45 PM * Patti Jones RT - 02/03/2024 11:27 PM CDT Pt stated that she doesn't wear CPAP at home and will not be wearing it here. Machine removed from room. Order DC per protocol. * Sara Hdez RN - 02/03/2024 12:09 PM CDTSummary: Discharge planning Care Coordination Assessment Patient Name: Cathy Raymond Date: 02/03/2024 Expected DC Date: 02/06/2024 Social Information Urogynecology Physician Used: None needed Decision Maker at Admission: Self Living Situation: Home Patient Identified Support System: Services Receiving: [employer] / Skilled Services ([facility] care for OT, PT, RN) Complex Medical Needs: None Transportation Used for Discharge: stretcher Safety Concerns: None Behavioral Health Concerns: None Patient Family Goals Patient's Discharge Goal: agreeable to consider TCU in [place] Family's Discharge Goal: n/a Plan/Interventions Discharge Plan: SNF Was Patient Choice Provided?: Yes Who was Choice Provided to?: Patient Patient Information Verification Verified demographic information, including SSN, Next of Kin, and Guardianship: Yes Verified PCP: Yes If post-acute placement is needed, have vaccination status needs been addressed?: Not applicable Risks for Readmission: None Summary of pertinent information: Patient admitted in transfer from [facility] with concern for left femur fracture from a fall and sigmoid volvulus. She continues to await medical clearancefor surgery. Had patient sign FRED to get imaging pushed from both [facility] and [facility]. Sent FRED to both places, anticipate that imaging should be available soon. Anticipate that she will require TCU placement. She prefers [place] and has been at facilities there previously. Currently open to home care through [facility]. Will continue to follow. Sara Hdez RN, 02/03/2024 12:12 PM Sara Hdez RN, 02/03/2024 12:09 PM * Autumn Jerome MD - 02/03/2024 8:43 AM CDT MEDICINE PROGRESS NOTE Cathy Raymond : 1965 Sex: female Patient Summary: 58yo with decompensated cirrhosis with significant ascites, who presents with a displaced periprosthetic femur fracture from a fall at home. Pt also noted to have severe bowel distension on her CT a/p -- unclear if this is neurogenic (related to CIDP) or possibly a sigmoid volvulus. Assessment & Plan: Acute displaced angulated periprosthetic fracture of the distal femur # Osteoporosis managed with oral alendronate # Prior left femur fracture s/p IMN 2019 - Pain control with scheduled acetaminophen and PRN oxycodone - Proximal tibia krystle placement and traction performed in the ED, NPO - palliative care consulted - GI saw patient and provided predicted post operative outcomes for major orthopedic surgery by ZE. 30-day mortality: 2.4% 90-day mortality: 6.4% 180-day mortality: 8.3% 90-day decompensation: 10.1% Defer to orthopedic surgery team to discuss risk/benefits of surgery in the setting of decompensated cirrhosis -Palliative care consulted -NWB right lower extremity # Significant distention of the sigmoid colon, chronic seen in imaging since 2017 # Possible sigmoid volvulus versus chronic sigmoid dilation # Complicated multifactorial polyneuropathy - Lactate is normal and there is no evidence of perforation or peritonitis - GI and surgery following - Discussed imaging finding with radiology and the findings in the sigmoid are chronic seen in imaging dating back to 2017 -GI does not plan for endoscopic procedure -Surgery will continue to do serial examinations overnight and reassess tomorrow # Met-ALD related cirrhosis, 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 # Alcohol use disorder in early remission (last drink 3 weeks ago) - Will hold diuretics preoperatively - Paracentesis with fluid studies performed in the ED, 4 L removed, no evidence of SBP - can repeat ascites as needed # Lower extremity edema with weeping LE wounds # Probable cellulitis of the left foot - Continue ceftriaxone for non-purulent cellulitis involving the left foot - Wrap lower extremities and involve wound care team in the AM #Hypokalemia 3.4, ordered 20meq of potassium once Repeat BMP in the AM # Anemia Hemoglobin 9.3 # Microscopic hematuria # Mild asymptomatic pyuria # Hypothyroidism on levothyroxine # Chronic neuropathic pain on gabapentin # Diabetes mellitus type 2, control uncertain # Obstructive sleep apnea # Obesity with BMI 32 # Vitamin B12 deficiency # CIDP # Neurogenic bowel/bladder # Seasonal allergies # Major depression # Constipation # Insomnia # GERD - Continue CASH CLERK cetirizine, citalopram, gabapentin, levothyroxine, pantoprazole, PEG/senna, trazodone - HOLD oxybutynin - Check Hb A1c Subjective/Events of Past 24 Hours: Hospital Day: 1 Reports fine No nausea or vomiting No abdominal pain Objective: Physical Exam GEN: NAD, laying in bed RES: clear lungs, on wheezing, rales or rhonchi CV: r/r/r, no murmurs, rubs or gallops ABD: distended Labs reviewed Charge Capture Pit Clerk * Giselle Johansen MD - 02/03/2024 4:42 AM CDT Orthopaedic Surgery Progress Note 02/03/2024 S: Seen by gen surg for poss sigmoid volvulus, recommending GI intervention as patient is a poor surgical candidate. Following with serial abd. Exams. NAEO. Pain well controlled. Denies new numbness,tingling, CP, SOB, fevers, chills. NPO since midnight. Voiding independently. Working with therapy.No concerns this AM. O: BP 100/68 (Cuff Location: Right Leg) Pulse 90 Temp 36.6 ??C (97.8 ??F) (Oral) Resp 18 Ht 1.727 m (5' 8) Wt 98.4 kg (217 lb) SpO2 99% BMI 32.99 kg/m?? Exam: Gen: No acute distress. Resp: Non-labored breathing Msk: RLE -Skeletal traction in place -Fires quad, EHL, FHL, TA, GaSC -No sensation to light touch in foot, diminished sensation throughout RLE -Foot warm Lab Results Component Value Date/Time WBC 7.34 02/02/2024 1601 HGB 9.3 (L) 02/02/2024 1601 PLT 176 02/02/2024 1601 CR 0.72 02/02/2024 1601 Lab Results (Last 120 hours) Procedure Component Value Ref Range Date/Time URINE CULTURE [[id number]] Collected: 02/02/241702 Specimen: Urine Updated: 02/02/242204 BODY FLUID CULTURE:INCLUDES GRAM STAIN [[id number]] Collected: 02/02/241950 Specimen: Peritoneal Fluid from Peritoneum Updated: 02/02/242030 Gram Stain Report -- PMN's seen. No organisms seen. Assessment/Plan: Cathy Raymond is a 58 y.o. old female with alcoholic cirrhosis who presents with a right femur fracture. Patient also with UTI, probably right foot infection, and possible sigmoidvolvulus. Risks, benefits and alternatives of both operative and closed treatment were discussed. Questions answered. - Admit to Medicine - Plan for OR: IMN L femur pending medical clearance -Consent: obtained -Pre-op labs: complete -Medicine clearance: pending -GI clearance: pending -Palliative evaluation: pending - Anticoagulation: hold in anticipation of OR - Antibiotics/tetanus: preop abx ordered - Xrays/imaging: complete - Activity: bedrest for now - Weight Bearing: NWB RLE - Pain control: per primary, recommend PO with IV for breakthrough pain - Diet: NPO since midnight for possible OR - Dispo: TBD - Follow-up: TBD Mira Espinoza MD Orthopaedic Surgery PGY-3 FACULTY NOTE I saw and evaluated the patient today, 02/03/2024. I discussed with the resident and agree with the resident???s findings and plan documented in the resident???s note from above. Any revisions by me are documented. Please see consult note for full details. Giselle Johansen MD, 02/03/2024 12:31 PM * Patti Jones, RT - 02/03/2024 1:14 AM CDT Pt refused nocturnal CPAP tonight. Says she's never wore one before at home. Machine left in room, RT will attempt again tomorrow. documented in this encounter H&P Notes * Endeina Austin MD - 02/02/2024 6:20 PM CDT MEDICINE HISTORY AND PHYSICAL Cathy Raymond : 1965 Sex: female Attestation with edits by Enedina Austin MD at 02/02/2024 11:29 PM FACULTY NOTE I saw and evaluated the patient today, 02/02/2024. I discussed with the resident and agree with the resident???s findings and plan documented in the resident???s note from above. Any revisions by me are documented. Labs, imaging and outside records personally reviewed in [facility] 58yo with decompensated cirrhosis with significant ascites, who presents with a displaced periprosthetic femur fracture from a fall at home. Pt also noted to have severe bowel distension on her CT a/p -- unclear if this is neurogenic (related to CIDP) or possibly a sigmoid volvulus. Pt is not medically optimized at this time. Surgery consulted tonight and will need GI evaluation as well tomorrow morning. Pt is very high risk for surgery in the setting of her cirrhosis (primarilybleeding risk, poor wound healing, infection). Unfortunately it would be very difficult to manage this fracture non-operatively given the significant displacement. She was able to tolerate a similar surgery in 2019. Recommend thorough discussion of risks with pt and her tomorrow -- pt was too sleepy tonight after being placed in traction to participate. Consider involving palliative care. Enedina Austin MD, 02/02/2024 11:01 PM Patient Summary: Cathy Raymond is a 58 y.o. female with past medical history of cirrhosis and osteoporosis admitted on 02/02/2024 with a periprosthetic femur fracture. Assessment and Plan: This is a 58-year-old female with decompensated alcohol-related cirrhosis, complex multifactorial polyneuropathy with neurogenic bowel/bladder, significant functional debility/frailty and osteoporosis who is admitted in the context of a left femur fracture due to a fall from standing height and a possible sigmoid volvulus. We appreciate recommendations from GI/general surgery regarding her possible sigmoid volvulus, and we appreciate recommendations from orthopedic surgery regarding further management of her femur fracture. Her overall prognosis is guarded due to her extensive comorbidities and frailty. When she has recovered from sedation (from her recent krystle placement/traction), and when her family is available, it would be worthwhile to discuss care goals in more detail before proceeding with operative interventions. # Acute displaced angulated periprosthetic fracture of the distal femur # Osteoporosis managed with oral alendronate # Prior left femur fracture s/p IMN 2019 - Pain control with scheduled acetaminophen and PRN oxycodone - Proximal tibia krystle placement and traction performed in the ED, NPO with planned operative intervention 02/02 - Will benefit from endocrinology follow-up outpatient to discuss further osteoporosis management # Significant distention of the sigmoid colon, uncertain chronicity # Possible sigmoid volvulus versus chronic sigmoid dilation # Complicated multifactorial polyneuropathy - Lactate is normal and there is no evidence of perforation or peritonitis - Will engage with general surgery and gastroenterology to discuss flexible sigmoidoscopy for decompression with possible surgical intervention thereafter # Met-ALD related cirrhosis, 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, MELD 16, CP B # Ascites status post paracentesis # Alcohol use disorder in early remission (last drink 3 weeks ago) # Lower extremity edema with weeping LE wounds - Will hold diuretics preoperatively - Paracentesis with fluid studies performed in the ED, 4 L removed, no evidence of SBP - Wrap lower extremities and involve wound care team in the AM # Probable cellulitis of the left foot # Microscopic hematuria # Mild asymptomatic pyuria # Anemia of chronic disease, with hemoglobin 9.3 - Continue ceftriaxone for non-purulent cellulitis involving the left foot # Pre-operative medical evaluation - Cardiovascular risk: - RCRI 0.4% Estimated Rate of Myocardial Infarction, Pulmonary Edema, Ventricular Fibrillation, Cardiac Arrest, or Complete Heart Block (very low risk) - Holm 2.7% risk of Perioperative Myocardial Infarction or Cardiac Arrest (up to 30 days post-op) - Risks related to liver disease: - 12% 30-day risk of post-operative mortality as estimated by Gillis Risk Score - 42% 30-day risk of post-operative mortality as estimated by VOCAL-Silas Score - Overall, the patient is medically optimized for planned urgent surgery pending the following: - Discussion with patient/family RE risks/benefits - Discussion with surgery/GI RE possible sigmoid volvulus - Will hold diuretics leilani-operatively # Hypothyroidism on levothyroxine # Chronic neuropathic pain on gabapentin # Diabetes mellitus type 2, control uncertain # Obstructive sleep apnea # Obesity with BMI 32 # Vitamin B12 deficiency # CIDP # Neurogenic bowel/bladder # Seasonal allergies # Major depression # Constipation # Insomnia # GERD - Continue CASH CLERK cetirizine, citalopram, gabapentin, levothyroxine, pantoprazole, PEG/senna, trazodone - HOLD oxybutynin - Check Hb A1c History of Present Illness: Cathy Raymond is a 58-year-old female with medical comorbidities including decompensated met-ALDcirrhosis, osteoporosis on oral alendronate, prior CIDP, chronic neuropathic pain on gabapentin, hypothyroidism, diabetes mellitus type 2, obstructive sleep apnea, insomnia and major depression who is admitted in the context of a femur fracture suffered after a fall from standing height. She tells me that she is debilitated and largely dependent on he for ADLs at home, but she assists in her own transfers out of her wheelchair to get to the bathroom, etc. She states that she was transferring from the toilet to her wheelchair when she fell to the ground and experienced severe pain in her right leg. She states that she falls frequently, probably multiple times per week. She tells me that it has been > 24h since she passed gas, and it has been perhaps several weeks since her last normal bowel movement. She states that she does not have much sensation in the abdomen and cannot usually tell when she needs to have a bowel movement. Instead, she will typically find small amounts of stool in her briefs intermittently. She tells me that she noticed some redness in her right foot probably 3-5 days ago. It is not painful but she states that she has neuropathy which limits her sensation in the feet as well. She statesthat her PCP noticed the redness and warmth in the office yesterday. She is uncomfortable and somewhat sleepy following procedural intervention from orthopedic surgery just prior to our interview. She tells me that she stopped drinking alcohol approximately three weeks ago. Links to update patient chart: Medical History, Surgical History, Family History, Psychosocial History, Medication List, Allergies, Code Status, LDA & Wounds Complete review of systems was performed - See HPI. All others negative. Objective: Vitals: 02/02/24 1529 BP: 102/72 Pulse: 83 Resp: 18 Temp: 37.7 ??C (99.9 ??F) SpO2: 96% General: chronically ill-appearing and frail female resting in bed, no distress CV: mild tachycardia, no murmurs or extra heart sounds, trace bilateral edema (R > L) Pulm: clear to bilateral auscultation, symmetric rise, mild tachypnea Abdominal: marked distention with only mild tenderness, no audible bowel sounds, tympanic, fluid wave present Skin: warmth and erythema overlying the dorsal surface of the right foot, small fluctuant fluid-filled blister on the lateral aspect, krystle in place under the right knee : andrade catheter in place draining clear yellow urine Psych: somewhat sleepy, affect is tearful PCP: No primary care provider on file. Results for orders placed or performed during the hospital encounter of 02/02/24 (from the past 24 hour(s)) PTT (APTT) Result Value Ref Range APTT 33.0 25.0 - 37.0 sec BLOOD TYPING-ABO/RH Result Value Ref Range ABORHG A POS ANTIBODY SCREEN Result Value Ref Range Nicky Screen Negative ED CHEMISTRY LABS(NA,K,CL,CO2,GLU,CREAT,CA-IONIZED,ANION GAP) Result Value Ref Range Sodium 135 135 - 148 mEq/L Chloride 100 92 - 108 mEq/L AnGap 9 8 - 16 mEq/L Glucose 105 (H) 70 - 100 mg/dL ICA, Actual 4.21 (L) 4.40 - 5.20 mg/dL ICA, pH Corrected 4.45 4.40 - 5.20 mg/dL Creatinine 0.72 0.50 - 1.00 mg/dL BICARB 26 22 - 26 mEq/L eGFR (2020 CKD-EPI) 96 >=60 ml/min/1.73m2 Potassium 3.5 3.5 - 5.3 mEq/L CBC WITH PLTS/AUTO DIFF Result Value Ref Range WBC 7.34 4.00 - 10.00 k/cmm RBC 3.08 (L) 3.90 - 5.20 m/cmm Hgb 9.3 (L) 11.5 - 15.7 g/dL Hematocrit 28.5 (L) 34.0 - 45.0 % MCV 92.5 80.0 - 100.0 fL MCH 30.2 25.0 - 32.0 pg MCHC 32.6 31.0 - 36.0 g/dL RDW 13.5 11.5 - 14.5 % Plt 176 150 - 400 k/cmm MPV 10.2 6.5 - 12.5 fL Automated Abs Neutrophil 5.98 1.70 - 6.50 k/cmm Abs Immature Granulocyte 0.03 0.00 - 0.09 k/cmm Abs Neutrophil 5.98 1.70 - 6.50 k/cmm Abs Lymphocyte 0.80 0.80 - 4.00 k/cmm Abs Monocyte 0.52 0.20 - 1.00 k/cmm Abs Eosinophil 0.00 0.00 - 0.60 k/cmm Abs Basophil 0.01 0.00 - 0.20 k/cmm HS TROPONIN Result Value Ref Range HS Troponin I <3 <=14 ng/L Narrative If ordering as an add-on lab, you must call the lab. PROTHROMBIN (PT) & INR Result Value Ref Range PT 18.0 (H) 9.0 - 12.5 sec INR 1.6 (H) 0.8 - 1.1 LACTATE (LACTIC ACID) Result Value Ref Range Lactate 1.1 0.7 - 2.1 mmol/L Narrative Send specimen on ice! PANEL HEPATIC FUNCTION Result Value Ref Range Total Protein 5.8 (L) 6.4 - 8.3 g/dL Albumin 2.4 (L) 3.8 - 5.1 g/dL Bili Total 1.1 <=1.2 mg/dL Bili Direct 0.5 (H) <=0.3 mg/dL Alk Phos 107 (H) 35 - 104 IU/L ALT (SGPT) 19 <=33 IU/L AST(SGOT) 39 5 - 40 IU/L LIPASE Result Value Ref Range Lipase 13 13 - 60 IU/L PRECAUTIONARY TUBE Result Value Ref Range Prec Tube Precautionary Blood Bank Specimen Received. URINALYSIS,TOTAL Result Value Ref Range Color YELLOW YELLOW Appearance CLOUDY (A) CLEAR Urine Glucose NEGATIVE NEGATIVE mg/dL Bili UA TRACE (A) NEGATIVE Ketones TRACE (A) NEGATIVE Specific [place] 1.024 1.003 - 1.030 Blood Ur LARGE (A) Neg-Trace PH Urine 6.0 5.0 - 7.0 Protein Ur 30 (A) Neg-Trace Urobilinogen >=8 (A) NORMAL EU/dL Nitrite Ur NEGATIVE NEGATIVE Leuk Est SMALL (A) Neg-Trace WBC Ur 6-10 (A) 0 - 5 perHPF RBC Ur >20 (A) 0 - 3 perHPF SQ EPITH 0-5 0 - 5 perHPF Bacteria UA PRESENT Urinalysis Performed at: [facility] [place] [facility] BODY FLUID CELL COUNT/DIFF Result Value Ref Range Fluid Type PT Peritoneal Volume PT Fluid 40 mL Appearance PT Hazy Color bf Yellow Rbc PT Fluid <1,000 cells/ul Nuc Ct PT Fluid 93 cells/ul Neutrophil PT Fluid 2 % Lymphocytes PT Fluid 19 % Basophil PT Fluid 1 % MONO/MACS FL 53 % Other PT Fluid 25 % BODY FLUID CULTURE:INCLUDES GRAM STAIN Specimen: Peritoneum; Peritoneal Fluid Result Value Ref Range Gram Stain Report PMN's seen. No organisms seen. MISCELLANEOUS BODY FLUID Result Value Ref Range [facility] [place] Result 1.3 Units BF g/dL Narrative fluid: Peritoneal Test: TP documented in this encounter Procedure Notes * Coco Buckley PA-C - 02/08/2024 11:14 AM CDTAssociated Order(s): Paracentesis Paracentesis Date/Time: 02/08/2024 11:14 AM Performed by: Coco Buckley PA-C Authorized by: Coco Buckley PA-C Consent: Verbal consent obtained. Written consent obtained. Risks [...] confirmed: verbally with patient, arm band and hospital- assigned identification number Time out: Immediately prior to procedure a time out was called to verify the correct patient, procedure, equipment, donor support technician and site/side marked as required. Initial or [...] Ultrasound was used to interrogate the abdomen. Alarge amount of ascites was seen. The right lower quadrant was then prepped and draped in usual sterile fashion. 1% lidocaine was used for local anesthesia.Under ultrasound guidance, a one step needle was advanced into the fluid. An image was archived. A total of 4.0 liters of straw- colored asciticfluid was aspirated and discarded. The catheter was then removed. Patient tolerated the procedure without any immediate complications. Per protocol, the patient received 12.5 grams of albumin during and after the procedure.Complications: None. Impression: Ultrasound-guided paracentesis as above. Coco Buckley PA-C, 02/08/2024 11:14 AM * Jesse Pineda RN - 02/08/2024 11:09 AM CDT PARACENTESIS PROCEDURE NOTE D: Cathy Raymond underwent a paracentesis via Ultra Sound Guided imagery by Coco Buckley on 02/08/2024 Time out done. Yes Patient identity confirmed with 2 identifiers Yes Site marked Yes A: Abdomen site prepped by technologist in sterile fashion. Preliminary images obtained. Amount of fluid removed : 4L Color/consistency of fluid: Clear, light yellow Site and site appearance: CDI Dressing applied. Medication total dose given- Versed 0 mg Fentanyl 0 Mcg Other lidocaine subcutaneous given by provider Albumin x 2 Monitoring Times: Start:1110 Stop:1131 R: Patient tolerated well P: Samples sent to lab for pathology and cytology examination : No Patient to [facility] for post-procedure monitoring. Patient education sheets given regarding post-care. * Humphrey Rose MD - 02/02/2024 10:03 PM CDTAssociated Order(s): Paracentesis Paracentesis Performed by: Cooper Loaiza MD Authorized by: Humphrey Rose MD Consent: Consent obtained: Verbal Consent given by: Patient Risks discussed: Bleeding, bowel perforation and infection Alternatives discussed: No treatment [place] protocol: Patient identity confirmed: Verbally with patient Pre-procedure details: Procedure purpose: diagnostic and therpeutic. Preparation: Patient was prepped and draped in usual sterile fashion Anesthesia: Anesthesia method: Local infiltration Local anesthetic: Lidocaine 1% w/o epi Procedure details: Needle gauge: 15. Puncture site: R lower quadrant Fluid removed amount: 4 L Fluid appearance: Mili Dressing: Adhesive bandage Post-procedure details: Procedure completion: Tolerated well, no immediate complications Cooper Loaiza MD, 02/02/2024 10:03 PM My signature attests that I was present for the valencia or critical portion of this procedure. I was immediately available or had arranged immediate staff availability for all the non-critical or non-keyportions of the entire procedure. Humphrey Rose MD, 02/02/2024 10:12 PM documented in this encounter Consult Notes * Ashley Park OTR/L - 02/07/2024 3:53 PM CDT OCCUPATIONAL THERAPY ACUTE INITIAL EVALUATION Cathy Raymond 02/07/2024 OT Discharge Recommendations Discharge Recommendations: Post-acute placement recommended Level/type of placement (OT): Sub-Acute Rehab facility Post Discharge Follow-up: OT at post-acute placement Equipment Recommended: Equipment needs to be determined at next level of care OT In-patient follow-up / recommended referrals: Continue skilled OT services to achieve the goals on the plan of care / maximize safety and independence with ADL's / IADL's - Recommended Frequency: 5x / week - Anticipated Duration of OT services: throughout hospital stay - Interventions: ADL retraining, activity tolerance, functional mobility, and strengthening PM&R Consult Recommended: Not at this time Patient Name: Cathy Raymond : 1965 Age: 58 y.o. Hospital Admit date: 02/02/2024 Today's Date: 02/07/2024 Occupational Profile Medical History relevant to OT referral: Primary Diagnosis: Active Problems: Other fracture of right femur, initial encounter for closed fracture (CMS) Resolved Problems: * No resolved hospital problems. * Treatment Diagnosis: Impairments in motor function that limit safety and or independence with ADL's/ IADL's Restrictions/Precautions: Activity Level: Up with Assist General Precautions: High falls risk Weight-bearing Restrictions: Right LE - NWB Complies w/ Weight Bearing?: Yes Complies w/ Precautions?: Yes Hospital Course: Per MD note 02/07/2024: 58yo with decompensated cirrhosis with significant ascites, who presents with a displaced periprosthetic femur fracture from a fall at home. Pt also noted to have severe bowel distension on her CT a/p determined to be chronic. Now s/p right femur IMN Past Medical History No past medical history on file. Living Situation/Social History: Information obtained From: patient;chart Help Available at home: yes, 24 hour assist;other (comments) (Spouse has MS and is limited with amount of assist he can provide) Patient is living in a/an : house Stairs Required to enter the home: none Transportation: at baseline patient: pt does not drive Mobility equipment currently available/used: front wheeled walker;four wheeled walker;manual wheelchair;scooter ADL Equipment currently available/used: raised toilet seat;tub / shower chair;hand held shower head;grab bars;educational guidance counselor Prior Level of Function: ADLs/IADLs: Received assistance from family / friends;Received assistance from [employer] for hours per day / days per week: (comments) Assistance with:: meal preparation;laundry;cleaning Functional Mobility: Modified independent using AD (comments) Prior Therapies: none Evaluation Subjective: Pain: Pain Rating With Activity (Numeric): 8/10 Location: (Right LE) Participation Significantly Limited?: No Action Taken: Nursing aware and addressing Patient Appearance: Lines- Peripheral IV(s) I&O/Drains- Wound vac Pt c/o dry skin Upper Extremity Function: AROM: Bilateral UE's grossly WNL Strength: Bilateral UE's grossly 4/5 on MMT Activities of Daily Living: Eating: Independent Toileting: Dependent (less than 25% patient effort) Cognition: Pt is alert and oriented x 4 and able to follow 2-step directions Delirium assessment: Confusion Assessment Method (CAM) Acute onset OR fluctuating course: No CAM result: Negative Delirium prevention / intervention appears indicated? No. Insight: Pt demonstrates insight into current condition and related safety considerations - Yes Problem solving: Pt able to complete basic functional problem solving - Yes Visual Perception: Pt reports visual changes - No Additional Treatment / Education Provided: Education / training was provided to patient regarding - Energy conservation: Edema Severity: Moderate Edema Location: Right leg Edema Education/Treatments: Elevate Interdisciplinary Communication: RN: (OK for OT evaluation) Barriers to Learning: none identified Rehab Potential: good ASSESSMENT: Pt is a 58 year old female whom presents to OT s/p right femur fracture now POD#2 s/p IMN R Femur. Pt was sitting up in bed upon OT approach with pt's spouse present. Spouse was stating he would like to get an electronic EZ stand for pt at home to increase ease with pt's transfers due to spouse has medical issues of his own. Pt c/o significant pain rated at 8/10 and did not want to sit up at EOB during the evaluation. She stated her abdominal girth had increased and it was very uncomfortable to move. Pt was able to perform light tasks using BUE's while sitting up in the bed. Pt would like to discharge to a TCU near her home in [place] when medically stable. (See box at the top of note for additional information) Impairments: This patient demonstrates impairments in the followingMotor function: Strength / Muscle power Functional mobility Balance Endurance / activity intolerance Performance Deficits / Activity Limitations: The impairments listed above affect the patient's ability to safely and independently engage in the following occupations All Activities of Daily Living (ADL's) (i.e. grooming, dressing, toileting, bathing, etc.) All Instrumental Activities of Daily Living (IADLS's) (i.e. meal prep, money management, community mobility, shopping, etc.) Patient's Stated Goals: Regain ADL independence. PLAN: See box at top of note for additional information. See care plan for OT goals (if indicated). Participated in goal setting and treatment planning: Patient, Family Agrees with goals and treatment plan: Patient - Yes, Family - Yes Plan For Next OT Session: --ADLs: UB dressing compensatory strategies and Grooming strategies Total treatment time: 29 minutes OT interventions and time spent on each: Eval: 29 minutes Therapist: LILY Lanadverde/Bethanie Pager: [facility] Occupational Therapy Department * Rose Marie Early, PT - 02/06/2024 3:00 PM CDT Images from the original note were not included. PHYSICAL THERAPY INPATIENT ACUTE EVALUATION Cathy Raymond was seen 02/06/2024 for a Physical Therapy Evaluation. PT Discharge Recommendations Discharge Recommendations: Post-acute placement recommended. Level/type of placement (PT): Sub-Acute Rehab facility Barriers to placement (PT): No known barriers to placement Barriers to discharge to home/community: NA - Post acute placement is recommended and no barriers to placement known. If discharging to home, would need: Total assist with mechanical lift and wheelchair Post discharge follow-up: PT at post-acute placement Equipment Status: Equipment needs to be determined at next level of care;Patient will provide own equipment PT Equipment Recommended: Front wheeled walker;Four wheeled walker;Manual wheelchair (pt has FWW, 4WW, MWC, toilet seat riser, dyan lift at home) PM&R Recommended: DIAGNOSIS Patient Active Problem List Diagnosis Other fracture of right femur, initial encounter for closed fracture ([facility]) PT Treatment Diagnosis: Difficulty in Walking R 26.2 Impaired Mobility Z 74.09 Activity Intolerance Z 73.89 Age Related Physical Debility R 54 Muscle Weakness M 62.81 Unsteadiness on Feet R 26.81 Repeated Falls R 29.6 History of Falling Z 91.81 Acute Pain due to Trauma G 89.11 Dependence on Wheelchair Z 99.3 PRECAUTIONS Weight Bearing Restrictions: Right LE - NWB Falls Full Code ACTIVITY Up with Assist Start Ordered 02/06/24 0805 ACTIVITY CONTINUOUS Question Answer Comment Activity Level Up with Assist while in traction RLE Restriction/ROM RLE Weight Bearing Status RLE Non WB OK to WB for transfers Physical Therapy Orders: Orders Placed This Encounter Procedures PT EVALUATION AND TREATMENT Standing Status: Standing Number of Occurrences: 1 Order Specific Question: Reasons for eval? Answer: As Per Dx Order Specific Question: OK for out of bed activity? (Update Activity Order) Answer: Yes HISTORY Pertinent History: Per Ortho Progress Note 02/06/24: Orthopaedic Surgery Progress Note 02/06/2024 S: NAEO. VSS, pressures slightly soft. Pain well controlled. Denies new numbness, tingling, CP, SOB, fevers, chills. Tolerating a diet. Voiding independently. Has not been OOB. No concerns this AM. O: BP 95/64 (Cuff Location: Left Arm) Pulse 70 Temp 36 ??C (96.8 ??F) (Tympanic) Resp 14 Ht 1.727 m (5' 8) Wt 98.4 kg (217 lb) SpO2 93% BMI 32.99 kg/m?? Exam: Gen: No acute distress. Resp: Non-labored breathing Msk: RLE -Incisional WV with good seal -Dressings c/d/i -Fires quad, EHL, FHL, TA, GaSC -No sensation to light touch in foot, diminished sensation throughout RLE -Foot warm Lab Results Component Value Date/Time WBC 5.51 02/05/2024 0915 WBC 4.55 02/04/2024 0640 HGB 9.4 (L) 02/05/2024 0915 HGB 9.2 (L) 02/04/2024 0640 PLT 164 02/05/2024 0915 PLT 152 02/04/2024 0640 CR 0.62 02/05/2024 0915 CR 0.64 02/04/2024 0640 Assessment/Plan: Cathy Raymond is a 58 y.o. old female with alcoholic cirrhosis who presents with a right femur fracture now s/p IMN R femur on 02/[address] Henning. Her blood culture (10/06) was positive for gram positive rods on 02/03, in discussion with ID it was felt this was very likely a contaminant. Patient also with UTI, probably right foot infection, and chronic sigmoid distension. Medicine Primary Activity: up with assist Weightbearing restrictions: NWB RLE, ok to WB for transfers Antibiotics: Continue ancef per ID Diet: ADAT Andrade: Remove POD1 DVT prophylaxis: Lovenox 40mg daily x 4 weeks Wound/Incision Care/Vac: Wound vac over pin sites to remain pending output. OK to reinforce dressings as needed Pain management: Recommend multimodal Physical Therapy/Occupational Therapy: Eval and treat Labs: Hgb POD1, trend until stable Disposition: Ready for discharge when patient is mobilizing safely as determined by physical therapy evaluation, pain is controlled on oral medications, tolerating a diet, voiding at baseline, bowel is functioning (stooling or passing flatus), and patient is medically stable. Follow Up: Follow-up with Dr. Henning team in 2 weeks for wound check Medical History No past medical history on file. SOCIAL HISTORY Information gathered from: Patient and Chart Review Home: House Prior level of function: Reportedly Alycia with stand pivots bed<>MWC Baseline Ambulation: Non-Ambulatory Assist available at home: Yes, 27/04 from Stairs required at home: No Has ramp to enter home Previous assistive device used: Front - wheeled walker, 4 -wheeled walker, Manual wheelchair, Toilet riser, and dyan lift Services at home: [employer] services MWF, home PT / OT / RN SUBJECTIVE Patient's Stated Goals: to get stronger and more independent with mobility Pain: 9/10 resting located in RLE 5/10 with activity located in RLE Pain interventions: repositioning, contacted RN - able to provide pain medication, deep breathing, and exercises - see below for details Mental Status: Oriented X 4, Alert, and Cooperative Follows Direction: Yes, 2 step OBJECTIVE Initial patient presentation upon PT arrival: reclined in bed, agreeable to PT evaluation Skin: Dry - noted LLE Braces/Splints: None Lines: Peripheral IV Wound Vac External Female Catheter Restraints/Fall Management: Bed alarm Vital Signs: 02/06/24 0800 02/06/24 1500 02/06/24 1545 Vitals Patient Position for BP Lying Down Lying Down After activity (reclined in bed) Pulse 85 -- 80 Resp 14 -- -- BP 98/60 97/65 102/74 SpO2 97 % -- -- Room Air Sensation: UE: Light touch: Within Normal Limits: Not tested LE: Light touch: Within Normal Limits: No - hx of peripheral neuropathy, absent sensation BLE distal to knees, diminished BLE proximal to knees Motor: ROM/Strength: Right Left Upper Extremity: Range of Motion Grossly WNL Strength Grossly >3/5 Upper Extremity: Range of Motion Grossly WNL Strength Grossly >3/5 Lower Extremity: Range of Motion Grossly WNL Strength Grossly: 2-/5 Lower Extremity: Range of Motion Grossly WNL Strength Grossly: 2/5 Comment: BLE ROM and strength assessment quite limited d/t pain and pt's fear of movement. Ultimately able to demonstrate activation throughout all major muscle groups and tolerates sitting EOB with BLEs in near 90/90 hip/knee positioning (WFL for [facility] seating). Transfers & Bed Mobility: Supine to Sit: Maximal Assistance Sit to Supine: Total Assistance - Requires maximally elevated HOB and heavy use of rails, PT providing assist at BLEs. Requires totalA (x2) on return to bed. - Pt not agreeable to attempting standing this session. Will likely require use of stacy steady vs EZ stand. Gait Evaluation: deferred d/t pt condition Stairs: NT - has ramp to enter home Balance: Sitting: Requires BUE support and SBA for safety Standing: Deferred Exercise: Educated pt on purpose and benefit of each exercise. Provided verbal explanation, feedback, and visual demonstration to facilitate optimal technique. Wrote each exercise on whiteboard with recommended frequency to facilitate independent adherence to HEP. Pt completes x10 of each of the following exercises with great technique and tolerance: ankle pumps, quad sets (first 5 with AA), heelslides (requires AA and very small ROM), glute squeezes. Education/Other: Educated pt on role and purpose of IP PT. Educated pt on purpose of testing and exam findings throughout. Pt verbalizes understanding, all questions and concerns addressed within session. Positioning: Heel Offloading with Pillows Patient Positioned in Neutral Alignment Specialty Bed Interdisciplinary Communication: RN: pt OK for PT; assisting with repositioning end of session Treatment rendered: Bed mobility training;Positioning;ROM;Neuromuscular re-education;Balance/coordination training (Eval) Total treatment time: 48 minutes ASSESSMENT Cathy Raymond is a 58 y.o. female presents to IP PT s/p admission for R femur fx now POD#1 s/p IMN R femur with Dr. Henning. PMH significant for decompensated alcoholic cirrhosis, complex multifactorial polyneuropathy with neurogenic bowel/bladder, significant functional debility/frailty and osteoporosis. PLOF reportedly Alycia with stand pivot transfers to [facility] (GLF during tx resulted in femur fx), has 24/7 assist from , [employer] services 3x/wk, and home PT / OT / RN services at baseline. Amenable to placement, particularly given pt goals of returning to ambulation and ultimate dc to home. Exam somewhat limited given pt is quite fearful of pain and movement. Unable to achieve full AROM against gravity either BLE, unclear how much d/t true weakness vs self limitation; does demonstrate muscle activation throughout BLE. Pt reports chronic neuropathy BLE, absent LT sensation distal to knees, diminished proximal to knees. Requires max-totalA throughout, able to tolerate sitting EOB x15 mins and complete multiple (mostly isometric) supine LE therex. Stable vitals pre/post activity; pt reports slight lightheadedness sitting (baseline), denies all other adverse sx other than pain that does improve with mobility. NWB RLE status maintained throughout interventions and mobility. Patient presents with Pain, Impaired gait, Decreased Strength, Impaired Balance, Decreased ROM, Decreased Activity Tolerance, Reduced Sensation, and Changes in Skin Integrity. These impairments affect the patient's ability to safely and independently perform Bed Mobility, Transfers, and Ambulation. Recommend post acute placement with continued PT services to optimize pt's recovery toward Alycia PLOF and support ultimate goal of dc home. Patient will benefit from continued skilled PT services to progress towards goals. See Care Plan for goals. PLAN Patient will be seen 3-5x/week until goals are met or patient is discharged. Next visit the plan isto work on bed mobility, supine LE therex, sitting tolerance and balance EOB, sit<>stands viasara steady, up to chair as appropriate. CASH CLERK Appropriate: No (needs mobility progressed) Participated in goal setting and treatment planning: Patient Agrees with goals and treatment plan: Patient - Yes. Rose Marie Early, PT 02/06/2024 Pager: [facility] PT Department * Dominic Castorena MD - 02/05/2024 3:19 PM CDTAssociated Order(s): CONSULT TO INFECTIOUS DISEASE ID NEW CONSULT NOTE Cathy Raymond : 1965 Sex: female REASON FOR CONSULT: I was asked to see Cathy Raymond by Autumn Jerome regarding recent MSSA bacteremia PROBLEM LIST: MSSA bacteremia Acute displaced right femur fracture OR 02/04 with orthopedics Diabetic neuropathic ulceration, full thickness, with fat layer exposed Decompensated cirrhosis Cystitis, E. coli RECOMMENDATIONS: Discontinue ceftriaxone While inpatient start cefazolin 2gm Q8 Hrs, this will cover MSSA and urine E. Coli If patient to DC prior to end of treatment for MSSA, transition to PO linezolid 600 mg BID Total course 02/01-02/14, 2 weeks ID to sign off DISCUSSION: Patient was admitted for right femur fracture and plan to take to the OR today with orthopedic surgery. Complicating her course she did have MSSA bacteremia, 1 set of blood cultures were taken at the [facility] in which 2 of 2 bottles grew MSSA. She did have cultures obtained from her right foot wound that also grew MSSA. It is unclear if she was ever having symptoms of this bloodstream infection. With Staph aureus it is imperative that we do treat as though this was real. Given that she did not have evidence of sepsis or ongoing bacteremia, 2 weeks of total therapy should be sufficientfor this. Repeat blood cultures since she arrived did have 1 gram-positive bacilli grow which was found to be bacillus, this is a contaminant. No additional cultures have become positive for MSSA. Additionally she is growing E. coli in her urine, it is unclear from chart review whether or not she had symptoms of this. She is being treated right now with ceftriaxone which does cover the E. coliwell though not the best coverage for Staph aureus. Recommend that while she is inpatient we optimize coverage with cefazolin which will cover both her E. coli and MSSA. When the patient is ready to discharge if that is to come before the 2 weeks of therapy is completed, she can continue therapy with oral linezolid 600 mg twice daily. Total duration of therapy shouldbe from February 01 to February 14. Patient seen and staffed with Dr. Raffaele Fong MD Infectious Disease, PGY-4 HPI: Cathy Raymond is a 58 y.o. female admitted on 02/02/2024 3:17 PM for right displaced femure fracture who was found to have MSSA bacteremia at outside hostpital. Patient has a history significant for decompensated alcohol-related cirrhosis, complex multifactorial polyneuropathy with neurogenic bowel/bladder. She was seen at an OSH when blood cultures were obtained, only one set which grew up healy-susceptible MSSA in 2 of 2 bottles. She hs a chronic wound on her foot, this was swabbed and found to have MSSA as well. Since her arrival she was been on CTX for E. Coli in her urine. She is in pain with the right femur fracture, hopeful for improvement with surgery today. No fevers, chills, sweats, or chest pain. ANTI-INFECTIVES: Current: Ceftriaxone 02/01 - PMH: Problem List and medical history were reviewed in current EHR. SOCIAL HISTORY AND RISK FACTORS Residence: Lives with family/friend(s) Work/school: Unknown Tobacco use: Former Alcohol use: Quit in 10/2023 Drug use: No Sexual history: Unknown. Recent or Relevant Travel: No Outdoor/Animal/Food Exposure: No EXAMINATION: BP 102/69 (Cuff Location: Left Arm) Pulse 80 Temp 36.5 ??C (97.7 ??F) (Temporal) Resp 18 Ht1.727 m (5' 8) Wt 98.4 kg (217 lb) SpO2 91% BMI 32.99 kg/m?? Constitutional: Cooperative Psychiatric: alert, oriented, cooperative, normal affect. Eyes: Non-Icteric and EOMI ENT: lips, mucosa, and tongue normal. Posterior pharynx clear. Neck: Neck supple Lymph Nodes: No cervical lymphadenopathy Pulmonary: chest symmetric, lungs clear bilaterally and no crackles, wheezes or rales Cardiovascular: Regular rate and rhythm, S1, S2, no murmurs/rubs/gallops GI/Abdomen: No TTP Extremities: Wound right LE RELEVANT DATA: Labs: Lab Results Component Value Date/Time WBC 5.51 02/05/2024 0915 PLT 164 02/05/2024 0915 HGB 9.4 (L) 02/05/2024 0915 CR 0.62 02/05/2024 0915 Lab Results Component Value Date/Time WBC 5.51 02/05/2024 0915 WBC 4.55 02/04/2024 0640 WBC 5.74 02/03/2024 0803 Lab Results Component Value Date/Time CR 0.62 02/05/2024 0915 CR 0.64 02/04/2024 0640 CR 0.70 02/03/2024 0803 Microbiology: OSH Blood Culture, 02/01 - MSSA, healy susceptible Bcx 02/02 Bacillus, non-anthrax 1 of 4 bottles Ucx 01/22 E. Coli, pansusceptible Imaging results: CT Right Femur 1. Acute displaced angulated periprosthetic fracture of the right mid to distal femur. 2. Traction within the right proximal tibia. Jay Fong MD, 02/05/2024 3:20 PM FACULTY NOTE I saw and evaluated Cathy Raymond on today, 02/05/2024. I discussed with the resident/fellow/medical student and agree with the findings and plan documented above. Any revisions by me are documented. Dominic Castorena MD, 02/05/2024 4:01 PM * Yanely Patterson CWON - 02/05/2024 12:53 PM CDTAssociated Order(s): CONSULT TO WOUND NURSE Images from the original note were not included. Data: [facility] nurse met with patient to assess pouch over puncture site on abdomen. Pouch is intact with clear yellow output. No sign of leakage noted. Also attempted to look at SDTI on sacrum, but patient refused today stating she just got repositioned and didn't want to be turned again. Went back after lunch and she was not in her room. MASD in bilateral groin (see photo below of Right Groin). Unable to see Left d/t patient position and refusal to be turned at this time. Action: - Instructed patient on emptying pouch and to alert nursing when pouch gets half full. - Groin cleansed with Didier barrier wipe and InterDry applied. Plan: Will attempt to see patient again on Wednesday 02/07 to assess sacrum. More pouches and InterDry left at bedside. Yanely Patterson CWON, 02/05/2024 1:01 PM * Kadi Roth DPM - 02/04/2024 6:22 PM CDTAssociated Order(s): CONSULT TO PODIATRIC SURGERY Images from the original note were not included. Podiatric Surgery Inpatient CONSULT - PGY-1 Cathy Raymond : 1965 Sex: female Patient Summary: 58 y.o. female with decompensated cirrhosis with ascites, neuropathy with neurogenic bowel and bladder, alcohol use d/o, hypothyroidism, T2DM, MAX admitted for femur fracture and bacteremia. I was asked to see this patient by Justus Sen MD regarding right foot blister. ASSESSMENT: New development of Diabetic neuropathic ulceration, full thickness, with fat layer exposed - No probe to bone, slight tracking with extending erythema - Present on admission - Purulence expressed, culture taken, no further signs of infection Chronic, controlled Diabetes Mellitus with peripheral neuropathy, bilateral, stable - last HbA1c 4.4 (02/02/2024) - HbA1c 6.5 on 09/10/2022 History of alcohol use disorder, currently in remission -3 weeks since last use RECOMMENDATIONS: 1. Dressing: Daily dressing changes with betadine, 4x4 gauze, and kerlix wrap. Podiatric surgery will manage dressings at this time. 2. Activity: NWB RLE per orthopedics 3. Antibiotics: Pending culture of right foot purulence 4. Vascular: No vascular workup indicated at this time. Pedal pulses palpable 5. Surgery: No surgical intervention anticipated at this time from a podiatric standpoint. No emergent or urgent indications. 6. Follow-up: Podiatry will continue to follow while inpatient. Will monitor for improvement and consider MRI if no improvement is seen over the next few days. Please page cash applications analyst resident with questions. Patient was seen with cash applications analyst staff, Dr. Roth PROCEDURE: Risks and benefits of the proposed procedure discussed, and all of patient's questions answered to their satisfaction. Verbal consent was obtained. The area was identified and confirmed with the patient to be the right foot. Skin was prepped with betadine. Sharp excisional debridement was performedwith a #15 blade to level of subcutaneous fatty tissue. Deep swab cultures were obtained and sent to microbiology for routine culture and sensitivity testing. No glass or other obvious foreign body was encountered. Procedure site was dressed with Betadine, 4 x 4 gauze, Kerlix, Bladimir wrap. CHIEF COMPLAINT: Right foot blister HISTORY OF PRESENT ILLNESS: Cathy Raymond is a 58 y.o. female presenting with right foot wound that she first noticed on Thursday. Patient does not recall any injury or trauma to the area. Cannot recall stepping on anything. Spoke with the patient's over the phone, and the he also states he does not recall her complaining of the pain and nothing. She is neuropathic at baseline, and has no sensation. States that she follows up with a medical detail representative in [place] and has had extensive surgery of the right foot. She denies any pain. Denies fever, nausea, vomiting, chills. PHYSICAL EXAMINATIONS: Temp (24hrs), Av.4 ??C (97.5 ??F), Min:35.8 ??C (96.4 ??F), Max:36.9 ??C (98.4 ??F) General: No apparent distress, alert and oriented x 3 Vascular: Pulses: PT/DP pulses palpable Hair growth absent at the level of the digits Capillary filling time less than three seconds bilaterally digits 1-5 Lower extremity/foot edema along bilateral feet and lower legs. Neurological: Protective sensation absent to light touch bilaterally. Strength and tone testing deferred Dermatologic: There are open lesions on right foot Location: Plantar lateral aspect of right foot Measures 3.5 cm x 2 cm. Depth of 0.4 cm at the sinus tract, 0.1 cm to the remainder of the wound does not probe to bone Base is granular Drainage: Mild sanguinous drainage. purulence expressed from plantar aspect of the wound Erythema: Moderate periwound erythema extending medially to approximately first interspace as well as proximally to approximately the level of the tarsometatarsal joints Toenails are thick, discolored and dystrophic Skin is brawny, thin, atrophic, dry and scaling. Musculoskeletal: Palpatory tenderness absent upon exam to right foot REVIEW OF LABORATORY, PATHOLOGY, AND RADIOLOGY DATA: Lab results: Lab Results Component Value Date WBC 4.55 02/04/2024 RBC 3.03 (L) 02/04/2024 HGB 9.2 (L) 02/04/2024 HCT 28.8 (L) 02/04/2024 PLT 152 02/04/2024 Lab Results Component Value Date NA 136 02/04/2024 K 4.3 02/04/2024 CHLORIDE 102 02/04/2024 CO2 26 02/04/2024 GLU 76 02/04/2024 UN 12 02/04/2024 CR 0.64 02/04/2024 CA 7.9 (L) 02/04/2024 Lab Results Component Value Date/Time PT 16.2 (H) 02/04/2024 0640 APTT 33.0 02/02/2024 1600 INR 1.4 (H) 02/04/2024 0640 Lab Results Component Value Date/Time HGBA1C 4.4 02/02/2024 1600 XR FOOT RIGHT 3 V AP/OBL/LAT* (02/02/2024 18:03) X-ray independently read and reviewed by me. They show no cortical erosions to suggest osteomyelitis nor subcutaneous gas. Questionable artifact versus foreign body at the plantar aspect of the forefoot. Primary care physician: No primary care provider on file. Chuckie Rock DPM, 02/04/2024 6:22 PM FACULTY WITH RESIDENT: I saw and evaluated the patient on the date of the resident's note. I discussed with the resident and agree with the resident's findings and plan documented in the resident's note. Any revisions by me are documented. I was present for the entire procedure. Kadi Roth DPM, 02/05/2024 8:53 AM * Cristela Gleason CWOCN - 02/04/2024 3:36 PM CDT DAP: [facility] nursing attempted to see patient x 2 today, however patient was out of the room x2. Will re-attempt at a later date. Cristela Gleason CWOCN, 02/04/2024 3:36 PM * Mindy Swan APRN, CNP - 02/03/2024 3:00 PM CDTAssociated Order(s): CONSULT TO PALLIATIVE CARE Palliative Care Note Cathy Raymond : 1965 Sex: female Reason for Consult: Goals of care Impression and Recommendations Patient's Personal Goals (obtained 02/03/24) Rehabilitative goals Impression Cathy Raymond is a 58 year old female with a past medical history of alcoholic cirrhosis with ascites, diabetes, chronic inflammatory demyelinating polyradiculoneuropathy who was admitted on 02/01 after she sustained a right femur fracture while transferring from the toilet to her wheelchair. She also has a UTI and a possible cellulitis of her right foot. On CT there was also note of a possible sigmoid volvulus for which GI and general surgery are consulting. Ortho planning for possible IMN to left femur once she is medically optimized for surgery. Palliative consulted for goals of care in setting of high risk surgery (due to medical co morbidities). Palliative Care Recommendations Goals of Care -Tiny is aware of the risks of proceeding with surgery and is willing to accept them as her goal isto get back home and eventually to work on walking again. -Tiny would like her , Jai, to serve as her surrogate in the event that she can not make her own decisions -she is accepting of her full code status during surgery but after surgery she would like to be DNR. She is accepting of intubation short term. -palliative will continue to follow Treatment Goals: Rehabilitative Illness understanding: In-line with medical team Supportive Care: Requires hospitalization Thank you for involving palliative medicine in the care of this patient. Please do not hesitate to call with questions or concerns. Mindy Swan APRN, CNP, 02/03/2024 3:00 PM Palliative Medicine Available [facility] Advance Care Planning Primary Care: No primary care provider on file. Current Code Status Order: Full Code Health Care Directives: Not on file POLST: Not on file Threats to life: Bleeding and In-hospital complications History of Present Illness Chief Complaint Goals of care Pertinent medical history Links to update patient chart: Medical History, Surgical History, Family History, Psychosocial History, Medication List, Allergies, Code Status, LDA & Wounds Subjective Met with Tiny in her room, no family present. She is alert and oriented. She is hoping to have surgery on her femur as soon as possible as she would like to eat and she would like to work on walking.She has been largely wheelchair bound but can transfer herself. She is aware of the risks associated with ortho surgery and the risks that are particular to her situation and she is accepting of them. Her , Jai, helps her at home along with a [employer]. States that she broke her other femur four years ago, underwent surgery and was able to rehab. She is hopeful for the same this time. She is accepting of a TCU if needed. She does not have any advance directive documentation but states that she would like to be DNR. Discussed that this could be implemented after surgery and she is accepting of this. She is accepting of intubation for short term/reversible causes. Palliative/Supportive Evaluation Palliative medicine strives to learn about the person behind the illness. There are numerous facetsof life that contribute to a person's perspective on their serious illness including: their currentliving situation and support system, degree of independence, their hobbies, activities and interests, spirituality or lutheran, personal experience with end of life, and personal hopes, worries. Thisbackground is essential in understanding what is most important and how that can change throughout the course of a serious illness. This summary is an attempt to highlight that background. Social History Social History Narrative Tiny is to her , Jai. She has one daughter and two grandchildren. She is Christianity. When feeling well she likes to have friends over, do word finds and play a slot game. Review of Systems Musculoskeletal: Positive for joint pain and muscle weakness. Gastrointestinal: Positive for bloating. Functional Status Palliative Performance Scale level (100% normal, 0% )= 50% - Mainly sit/lie / unable to do anywork, extensive disease / considerable assistance with self care / Normal or reduced Intake / Fullyconscious or confusion Objective Physical Examination Weight: Wt Readings from Last 5 Encounters: 02/02/24 98.4 kg (217 lb) Vital Signs: Blood pressure 109/58, pulse 75, temperature 36.6 ??C (97.9 ??F), temperature source Oral, resp. rate 18, height 1.727 m (5' 8), weight 98.4 kg (217 lb), SpO2 100%. Physical Exam General: sitting up in bed, alert and oriented HENT: no abnormalities Respiratory: unlabored breathing on room air MSK: moves all extremities Skin: no abnormalities on exposed skin Decision Making Capacity Understanding: Does the patient adequately understand the information about the risks, benefits, and alternatives of what is being proposed? Yes Logic: Is the logic the patient uses to arrive at the decision rational? Yes Consistency: Is the patient able to make a decision with some consistency? Yes I have personally reviewed the following labs and imaging (reports and images) PROTHROMBIN (PT) & INR (02/03/2024 08:03) PANEL HEPATIC FUNCTION (02/03/2024 08:03) low albumin noted PANEL BASIC METABOLIC (BMP) (02/03/2024 08:03) renal function WNL CBC WITH PLTS/AUTO DIFF (02/03/2024 08:03) mild anemia noted CT RIGHT FEMUR NO IV CONTRAST (02/02/2024 22:19) acute displaced right femur fracture Time/Medical Decision Making High Complexity (MDM): Complexity of Problem: [x] Patient has either an acute/chronic illness posing a threat to bodily functionand/or one acute/chronic illness with severe exacerbation, progression, or side effects from treatment --AND-- Complexity of Data (Need 2) [] I discussed plan of care and/or test interpretations with the medical, case management, therapy and/or nursing team [x] I interpreted tests someone else ordered (reviewing labs/imaging) [x] I reviewed external notes, internal or external tests, AND took further history from family or facility --OR-- Morbidity (Need 1): [] Drug therapy requiring intensive monitoring for toxicity (e.g. 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 Found to have left femur fracture, orthopedics following, along with distendedsigmoid colon on CT. General surgery and GI consulted. Distended sigmoid colon on CT CT on presentation shows distended sigmoid colon up to 11 cm, unable to exclude sigmoid volvulus, though fortunately no free air noted to suggest perforation. Notably, no prior images were availabilefor comparison. Surgery was consulted from ED, recommended GI consultation for decompression prior to considering surgery as poor surgical candidate in setting of decompensated cirrhosis. On review of Care Everywhere, specifically on review of CT scans from [facility] dated 07/08/2022 and [facility] dated111/21/2020, it appears patient has had a chronically dilated sigmoid colon, possibly dating back [id number]. Also has known chronic constipation and neuropathy with significant mobility challenges. Outside CT images reviewed by radiology here- per discussion with primary team radiology felt current findings of sigmoid distention are chronic. In light of this, no plan for endoscopic intervention acutely, but do recommend close follow-up with her outpatient GI provider. Surgery continues to follow for serial exams. Would recommend continued bowel regimen for her chronic constipation- daily supposit ory and MiraLAX 17 g 1-2 daily. Would avoid enemas. Although understandably challenging in setting of femur fracture, would attempt to limit opioid pain medication as able. Would also benefit from mobilization as able (again, limited due to baseline neuropathy/mobility issues as well as current femur fracture). Decompensated cirrhosis 2/2 alcohol c/b ascites MELD 3.0 16 Established at [facility], last seen 12/15/2013. Etiology felt to be alcohol, no use since October 2023. Previous viral hepatitis labs unrevealing (HBV and HCV), iron studies not consistent with hemochromatosis. AMA, ASMA, A1AT, ceruloplasmin also unrevealing 2009. Reports having follow-up visit scheduled for March (cannot see this visit scheduled). Ascites: On furosemide 60 mg (divided doses) and spironolactone 50 mg daily as outapteint. Currently held. S/P paracentesis with 4 L removed 02/01, no evidence of SBP. Can repeat paracentesis PRN. Esophageal varices: none on EGD 09/14/2023. Hepatic encephalopathy: no history of, no evidence of today HCC: No liver masses mentioned on CT 02/02/2024. Below are predicted postoperative outcomes for major orthopedic surgery by the VOCAL-SILAS Score. 30-day mortality: 2.4% 90-day mortality: 6.4% 180-day mortality: 8.3% 90-day decompensation: 10.1% Would ultimately defer to orthopedic surgery team to discuss risks/benefits of surgery in setting of decompensated cirrhosis. RECOMMENDATIONS: - Continue daily suppositories, add MiraLAX 17 grams 1-2 times daily - Avoid enemas for now - Limit narcotics as able - Paracentesis PRN - Close follow-up with outpatient GI provider GI will sign off. It was a pleasure to participate in the care of this patient. Plan formulated with GI staff, Dr. Del Cid. 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 Found to have left femur fracture- orthopedics following for surgical planning. Also found to have distended sigmoid colon onimaging prompting general surgery and gastroenterology consults. Seen at bedside this morning. Reports chronic constipation, currently managed with MiraLAX 17 gramsonce daily, Senna two tablets BID, a stool softener once daily, and daily suppository. While it is difficult to obtain clear history regarding her stool pattern, it seems she typically passes small volume soft stools multiple times per day. Over the last few months has noted intermittent fecal smearing on her undergarments along with some difficultly passing flatus. Denies any acute changes in her bowel pattern, abdominal pain, melena, or hematochezia. Has been eating well, no chest pain, shortness of breath, or fevers. She reports a several year history of cirrhosis attributed to alcohol. Denies prior paracentesis or hepatic encephalopathy. PAST MEDICAL HISTORY: Reviewed and updated. PROBLEM LIST: Reviewed and updated. ALLERGIES: Reviewed and updated. SOCIAL HISTORY: Reviewed and updated. Stopped drinking alcohol in October of this year, previously was drinking 3-4glasses of wine per night. FAMILY HISTORY: Reviewed and updated. REVIEW OF SYSTEMS: A complete 10 point review of systems was obtained. Please see the HPI for pertinent positives and negatives. PHYSICAL EXAMINATION: VS: Vitals: 02/03/24 0722 BP: 109/58 Pulse: 79 Resp: Temp: SpO2: 98% GEN: alert, cooperative, and in no distress EYE: No scleral icterus CV: regular rate and rhythm PULM: breathing comfortably on room air ABD: soft, non-tender, distended, normoactive bowel sounds EXT: left leg in traction NEURO: oriented x3, no asterixis on exam PSYCH: pleasant, affect appropriate REVIEW OF LABORATORY, PATHOLOGY AND RADIOLOGY DATA: Lab studies reviewed and significant for: Lab Results Component Value Date WBC 7.34 02/02/2024 RBC 3.08 (L) 02/02/2024 HGB 9.3 (L) 02/02/2024 HCT 28.5 (L) 02/02/2024 PLT 176 02/02/2024 Lab Results Component Value Date/Time NA 135 02/02/2024 1601 K 3.5 02/02/2024 1601 CHLORIDE 100 02/02/2024 1601 GLU 105 (H) 02/02/2024 1601 CR 0.72 02/02/2024 1601 Lab Results Component Value Date/Time ALBUMIN 2.4 (L) 02/02/2024 1601 ALP 107 (H) 02/02/2024 1601 ALT 19 02/02/2024 1601 AST 39 02/02/2024 1601 BILIDIR 0.5 (H) 02/02/2024 1601 TBILI 1.1 02/02/2024 1601 TPRO 5.8 (L) 02/02/2024 1601 Lab Results Component Value Date/Time LIPASE 13 02/02/2024 1601 Lab Results Component Value Date/Time PT 18.0 (H) 02/02/2024 1601 APTT 33.0 02/02/2024 1600 INR 1.6 (H) 02/02/2024 1601 MELD 3.0: 16 at 02/02/2024 4:01 PM MELD-Na: 14 at 02/02/2024 4:01 PM Calculated from: Serum Creatinine: 0.72 mg/dL (Using min of 1 mg/dL) at 02/02/2024 4:01 PM Serum Sodium: 135 mEq/L at 02/02/2024 4:01 PM Total Bilirubin: 1.1 mg/dL at 02/02/2024 4:01 PM Serum Albumin: 2.4 g/dL at 02/02/2024 4:01 PM INR(ratio): 1.6 at 02/02/2024 4:01 PM Age at listing (hypothetical): 58 years Sex: Female at 02/02/2024 4:01 PM Previous EGD: 09/14/2023: Impression: - Normal esophagus. Biopsied. - Gastric bypass with a normal-sized pouch. Gastrojejunal anastomosis characterized by healthy appearing mucosa. - Normal examined jejunum. Pathology: A: Esophagus, distal, biopsies: -Squamous mucosa with basal layer hyperplasia and scant chronic inflammation without eosinophils, features suggest reflux-like change -Special stain for fungal organisms performed and negative B: Esophagus, mid, biopsies: -Squamous mucosa with basal layer hyperplasia and scant chronic inflammation without eosinophils; features suggest reflux-like change -Special stain for fungal organisms performed and negative 07/25/2021: Impression: - Normal esophagus. - Z-line regular, 41 cm from the incisors. - Gastric bypass. - Normal examined jejunum. - No specimens collected. 02/14/2019: Impression: - Normal esophagus. - Normal examined jejunum. - Non-bleeding benign appearing superficial gastric anastomotic ulcer with no stigmata of bleeding. Biopsied. Unlikely to be clinically relevant - Widely patent gastric stoma 12/06/2018: Impression: - Normal esophagus. - Gina-en-Y gastrojejunostomy with gastrojejunal anastomosis characterized by ulceration. - Normal examined jejunum. - No specimens collected. Previous Colonoscopy: 07/25/2021: Impression: - Tortuous/redundant colon. - Melanosis in the colon. - The examined portion of the ileum was normal. - The examination was otherwise normal. - No specimens collected. Recommendation: - Return to GI clinic as previously scheduled. Imaging results: 02/02/2024 CT A/P with IV contrast: IMPRESSION: 1. The sigmoid colon is significantly [...] articular surface, suggestive of mild avascular necrosis 12/17/2023 Abdominal x-ray: FINDINGS: Bowel: Large gas dilated loop of bowel overlying the mid and left abdomen similar to the previous CT scan. Soft tissues: No sign of free air. No sign of soft tissue mass. No suspicious calcifications. Bones: Unremarkable for age. 07/08/2022 CT A/P without contrast ([facility]): Findings: Heart is mildly enlarged. There is no pericardial effusion. Basilar atelectasis. Nodular contour to the liver which can be seen with cirrhosis be with liver is enlarged measuring 21 centimeters craniocaudad dimension splenomegaly 15.5 cm. Gastric bypass changes. Adrenal glands unremarkable pancreas unremarkable. Cholelithiasis. No abdominal aortic aneurysm. No renal calculi. Low-density lesion the left lateral mid kidney is increased in size since 2018 incompletely assessed on this study no renal calculi and no hydronephrosis. Hysterectomy. Gas distended sigmoid colon however there is no obstruction seen. Urinary bladder unremarkable the fluid distended. Diffuse subcutaneous edema. No suspicious bony lesions are seen. Impression: 1. Small low-density lesion left lateral mid kidney slightly increased in size from the prior study clearly assessed on this study however prior ultrasound demonstrated this to represent a cyst. The kidneys are unremarkable. Urinary bladder incompletely distended, unremarkable. 2. Hepatomegaly, splenomegaly. Nodular contour to the liver which can be seen with cirrhosis. 09/20/2021 CT CAP with IV contrast ([facility]): IMPRESSION: 1. Minimally more prominent left axillary lymph node. Otherwise no areas of new additional adenopathy identified. Previously described lymph nodes are stable at the chest and abdomen. 2. New groundglass nodular opacity at the left lower lobe could be from an infectious, inflammatory, or neoplastic etiology. See below for follow-up imaging recommendations. 3. New tiny indeterminant nodule within the liver. Cirrhotic liver again suggested. Neoplasm cannot be excluded. Recommend further characterization with liver MRI. 4. Distended sigmoid colon that appears redundant, but not convincing for volvulus. Although this is increased in distention since 04/30/2018, this appears similar to the older CT from 12/22/2016. Recommend clinical correlation. 5. Cholelithiasis. 6. Interval development of compression deformities of T12 and L3. Primary care physician: No primary care provider on file. Amanda Elise PA-C, 02/03/2024 8:50 AM * Giselle Johansen MD - 02/02/2024 6:14 PM CDTAssociated Order(s): CONSULT TO ORTHOPAEDIC Images from the original note were not included. Orthopaedic Surgery Consultation/H&P DATE OF SERVICE: 02/02/2024 This is a consultation requested by ED for femur fracture. CHIEF COMPLAINT: right thigh pain HISTORY OBTAINED FROM: patient HISTORY: This is a 58 y.o. old female with PMH acholic cirrhosis, R TKA around 2017 in [place], [place],L femur fx s/p surgical fixation ~ 2019 at [place], idiopathic progressive neuropathy, hypothyroidism,chronic neuropathic pain, DMII (A1c 6.9 10/28), MAX, vitamin B12 deficiency, MDD who presents with right thigh pain after a fall today. Patient was transferring to the toilet when she fell. She is whee lchair bound due to weakness and uses her lower extremities for pivot transfers with assist. Patient was unable to bear weight after the injury. Denies numbness, paresthesias, head trauma, LOC, pain anywhere else in the body. Denies history or injury or prior surgery to the right femur. In the ED, she was noted to have significant distention of her sigmoid colon, concern for sigmoid voluvulus. She underwent paracentesis in the ED. She also has a UTI and concern for right foot infection, for which she is on ceftriaxone. Due to her cirrhosis, her INR was elevated to 1.6, PT to 18, plt 176k, hgb 9.3, albumin 2.4. PAST MEDICAL HISTORY: No past medical history on file. PAST SURGICAL HISTORY: No past surgical history on file. FAMILY HISTORY: Reviewed with patient and is non-contributory. No personal or family history of bleeding or clotting disorders No personal or family history of adverse reactions to anesthesia SOCIAL HISTORY: Tobacco - former Alcohol - previous daily alcohol use, stopped 10/28 Occupation - disability Lives with in house in [place], [place] ALLERGIES: Allergies Allergen Reactions Amoxicillin-Pot Clavulanate Unknown Naproxen Other (see comments) MEDS: Blood Thinners: denies None REVIEW OF SYSTEMS: An 11-point systems review was performed and negative except as noted in the HPI. PHYSICAL EXAMINATION: Vitals: 02/02/24 1529 BP: 102/72 Cuff Location: Right Arm Patient Position: Lying Down Pulse: 83 Resp: 18 Temp: 37.7 ??C (99.9 ??F) TempSrc: Oral SpO2: 96% Gen: Awake and Alert, pleasant, interactive, appears in pain. Psych: Articulates and Communicates with a normal affect HEENT: Normal and atraumatic Pulm: Non-labored breathing at rest. Saturating well on RA. CV: RRR Abd: Distended abdomen, erythema about inferior pannus Extremities: RUE: No deformity, skin intact. Non-tender to palpation over clavicle, shoulder, arm, elbow, forearm, wrist. Normal ROM shoulder, elbow, wrist without pain. + FPL/EPL/intrinsics. Diminished sensation to light touch distal to elbow Radial pulse palpable. LUE: No deformity, skin intact. Non-tender to palpation over clavicle, shoulder, arm, elbow, forearm, wrist. Normal ROM shoulder, elbow, wrist without pain. + FPL/EPL/intrinsics. Diminished sensation to light touch distal to elbow Radial pulse palpable. RLE: Obvious deformity, skin intact. Superficial abrasion to R anterior knee. Erythema, swelling to right foot with superficial wounds. Leg edema with fluid weeping. TTP over thigh. Non-tender to palpation over knee, leg, ankle/foot. No pain with ROM ankle. ROM hip/knee unable to be performed 2/2 pain + TA/Gsc/EHL/FHL. No sensation throughout foot. Dense neuropathy to level of mid thigh. DP not palpable, toes warm/well-perfused. LLE: No deformity, skin intact. Leg edema with fluid weeping. Non-tender to palpation over thigh, knee, leg, ankle/foot. No pain with ROM hip/knee/ankle. + TA/Gsc/EHL/FHL. No sensation throughout foot. Dense neuropathy to level of mid thigh. DP not palpable, toes warm/well-perfused. LABS/IMAGING: Recent Labs 02/02/24 1601 HGB 9.3* WBC 7.34 Recent Labs 02/02/24 1601 K 3.5 CHLORIDE 100 Recent Labs 02/02/24 1601 INR 1.6* Imaging: Review of x-rays shows spiral distal third femur fracture. The femoral component of the TKA appearswell fixed. CT R femur redemonstrates spiral distal third femur fracture with fracture extending to level of proximal aspect of flange. PROCEDURES: Procedure: Proximal tibia traction placement Consent: The indications for this procedure were discussed with the patient. A description of the procedure was provided. The risks and benefits of the procedure were discussed. A verbal consent was obtained. Description: The distal aspect of the cement mantle surrounding the tibial TKA component was marked using fluoroscopy. An incision was planned 2 cm distal. The medial and lateral aspects of the proximal tibia were cleaned using chloraprep solution. 10cc of 1% lidocaine was injected into the medial aspect of theproximal tibia. 10cc of 1% lidocaine was injected into the lateral aspect of the proximal tibia. The medial and lateral aspects of the patient's proximal tibia were cleaned again using a betadine solution. The prepped region was draped with sterile blue towels. An incision was made to the lateral aspect of the proximal tibia. A steinmann pin was then placed down onto the surface of the lateral tibia. The anterior and posterior cortices of the tibia were appreciated with the steinmann pin. The pin was advanced through the lateral and medial tibial cortices. An incision was then made to the medial aspect of the proximal tibia. The pin was advanced through the skin medially. AP/lateral right knee XR were obtained to verify appropriate pin positioning. The bow was then attached to the pin and20 lbs of traction were applied to the pin through a rope connected to the bow. Sponges were placedat the pin sites. Pin covers were placed over the edges of the pin. Final right femur films were obtained. The procedure was well tolerated and without complication. IMPRESSION AND PLAN: A 58 y.o. old female with alcoholic cirrhosis who presents with a right femur fracture. Patient also with UTI, probably right foot infection, and possible sigmoid volvulus. Risks, benefits and alternatives of both operative and closed treatment were discussed. Questions answered. - Admit to Medicine - Plan for OR: IMN L femur pending medical clearance -Consent: obtained -Pre-op labs: pending -Medicine clearance: pending - Anticoagulation: hold in anticipation of OR - Antibiotics/tetanus: preop abx ordered - Xrays/imaging: complete - Activity: bedrest for now - Weight Bearing: NWB RLE - Pain control: per primary, recommend PO with IV for breakthrough pain - Diet: NPO at midnight in anticipation of OR -Consult: recommend podiatry consult for right foot - Dispo: TBD - Follow-up: TBD Patient was discussed with Dr. Gage, [facility] staff. Orthopaedic staff for this patient is Dr. Johansen. Mira Espinoza MD Orthopaedic Surgery Resident FACULTY NOTE I saw and evaluated the patient today, 02/03/2024. I discussed with the resident and agree with the resident???s findings and plan documented in the resident???s note from above. Any revisions by me are documented. Patient seen on G3, her was present via phone. Discussed patients injury and how we typically fix these. Given her medical complexity, surgical intervention significant increase her risk of perioperative complications. MELD score of 16. I quoted them at least a 50% chance of complications such as drainage, infection, hardware failure and in and around surgery. Her goal is to be able to stand again as she is mainly wheelchair bound. On imaging, she appears to have an open box amenable to retrograde femoral nail. Unknown implants at this time. She does also have skin infection in her inguinal crease extending down to her anterior thigh which will likely be in the surgical field for proximal cross- locks. Patient still needing clearance. GI obtaining further outsideimages. Needs Palliative Care consult prior to OR. Remain NPO. If not cleared by midafternoon, ok for diet and NPO at midnight for possible fixation on . Giselle Johansen MD, 02/03/2024 12:42 PM documented in this encounter OR Notes * OR Surgeon - Dayo Henning MD - 02/05/2024 4:06 PM CDT [facility] [id number] [facility] OPERATIVE REPORT PATIENT: Cathy Raymond : 1965 DATE OF PROCEDURE: 02/05/24 SURGEON: Dayo Henning MD - Primary PHOTOGRAPHIC EQUIPMENT ASSEMBLER SURGEON: Serge Parker DO - Fellow Ian Gage MD-fellow ASSISTANTS: Vignesh Jorge- Resident - Assisting PREOPERATIVE DIAGNOSIS: Right periprosthetic distal femur fracture POSTOPERATIVE DIAGNOSIS: Same PROCEDURE PERFORMED: Right retrograde femoral nail Application of a wound VAC over tibial pinsites Removal of proximal tibial traction under anesthesia ANESTHESIA General anesthesia FLUID: See anesthesia records. ESTIMATED BLOOD LOSS: 150 cc. TOURNIQUET TIME: None. SPECIMENS: None. DRAINS AND PACKS: Wound VAC right proximal tibia COMPLICATIONS: None apparent. CONDITION: Stable to PACU. OPERATIVE FINDINGS: Consistent with above diagnosis. Stable fixation after the above procedures. IMPLANTS: Implant Name Type Inv. Item Serial No. Appliance Assembler Lot No. LRB No. Used Action FEMORAL NAIL RETROGRADE [id number] Krystle FEMORAL NAIL RETROGRADE [id number] [email or web address] [id number] Right 1 Implanted 5.0X60MM 2361-5060S Screw/[place] 5.0X60MM 2361-5060S [employer] [id number] Right 1 Implanted 5.0X70MM 2361-5070S Screw/[place] 5.0X70MM 2361-5070S [employer] [id number] Right 1 Implanted 5.0X75MM ADV 2361-5075S Screw/[place] 5.0X75MM ADV 2361-5075S [employer] [id number] Right 1 Implanted FREEHAND DRILL [id number] Drill bit/kiara FREEHAND DRILL [id number] [employer] [id number] Right1 Implanted 5.0X42.5MM 2360-5042S Screw/[place] 5.0X42.5MM 2360-5042S [employer] [id number] Right 1 Implanted INDICATIONS: Cathy Raymond is a 58 y.o. female who presented to [facility] with right leg pain after a fall. Pleasesee full consult note for details.. The patient was evaluated in the emergency room where the above-mentioned orthopedic injuries were found. Orthopedics was consulted and the patient was indicated for surgical fixation and cleared for the OR by the trauma team. The risks, benefits, and alternatives to surgical intervention were discussed in detail with the patient/family who expressed understanding and elected to proceed with surgery today. Written informed consent was obtained. OPERATIVE DETAILS: The patient was evaluated preoperatively where the operative extremity was verified and marked at the patient's direction. The history and physical were updated and there were no changes since her most recent evaluation. We again reviewed the risks, benefits and alternatives to surgical intervention and the patient expressed understanding and elected to proceed with surgery today. Informed consent was obtained. The patient was then brought back to the operating room and general endotracheal anesthesia was performed. Once this was felt to be adequate, the patient was carefully transferred to the operating table and positioned supine. A clinical examination of the patient's nonoperative leg was performed the patient had 10 degrees of internal rotation and 30 degrees of external rotation. This was performed with a bump under the nonoperative hip. This was removed and the bump was then replaced under the operative hip. Following this, the operative extremity was thoroughly prepped and draped in a standard sterile fashion. A formal institutional timeout was then conducted verifying the correct patient, operative site, procedure(s) to be performed, availability and sterility of all equipment and implants, as well as verification of administration of appropriate preoperative antibiotics within one hour of incisiontime and DVT prophylaxis in the form of SCDs on the uninjured lower leg. Once all were in agreement, we began the procedure. First, a longitudinal incision was made over the distal half of the patient's previous total knee incision. Sharp dissection was carried down through skin Bovie electrocautery was used to maintain meticulous hemostasis. The patient's patellar tendon was identified. The patient had previously undergone a patellectomy. As such the patellar tendon was sharply incised. The arthrotomy was carried up proximally taking care to preserve the remaining extensor mechanism. The PS implant was identified and the open box was visualized. An appropriate starting point was then obtained on biplanar fluoroscopy. An opening reamer was used to gently open the femoral canal. A ball-tipped guidewire was then passed to the level of the distal segment. Then using a combination of traction, gross manipulation the guidewire was passed into the proximal segment. This measured a 365 as such a 360 mm nail was selected. The opening box of the femoral implant was 12 mm. As such it was planned that an 11 or 10 mm nail would be selected. We began reaming with a 9 reamer while holding the fracture reduced. We then subsequently reamed up by halves to an 11.5 this had good cortical chatter at the isthmus. We then selected a 10 x 360 mm nail and this was passed retrograde into the proximal segment. Upon placing the nail we did notice that there was varus malalignment of the distal segment as such the nail was backed out and a blocking drill bit was then placed the distal half of the fracture on the lateral segment to translate the shaft laterally and pulled the fracture out of valgus. Then the retrograde nail was gently tapped back in in doing so this improve the overall alignment of the fracture. The nondisplaced butterfly fragment along the distal medial segment displaced slightly but was felt to be acceptable given the overall fracture alignment. With the overall improved length, alignment and rotation we then elected to place 3 distal 5.0 mm interlocks into the distal segment using the jig in standard fashion. They were drilled, measured and placed safely. The confirmed to be through the nail on biplanar fluoroscopy. Following this attention was turned to the proximal segment while maintaining length and rotation a single proximal interlock was placed from lateral to medial due to the patient's anterior pannus and overlying mario skin infection along the groin and extending onto the anterior proximal thigh. This was performed using perfect cantwell technique. A stab incision was made over the proximal lateral femur blunt dissection was carried down through the IT band to the level of the bone. A drill was then placed bicortically, measured, and a single 5.0 mm interlock was placed in the nail. This was felt to be adequate fixation as the patient is minimally ambulatory at baselineand predominantly stands for transfers only. At this point a clinical exam was performed of the right leg with approximately 10 degrees of internal rotation and 25 degrees of external rotation at thehip at 90 degrees. Given the anterior skin infection and limited options for proximal interlocks this was felt to be adequate length alignment and rotation. Following this final fluoroscopic films were obtained confirming length alignment rotation radiographically. The proximal tibial traction pin was then removed. After this, all wounds were copiously irrigated. 1 g vancomycin powder was placed into the arthrotomy. The incisions were closed in a layered fashion including 0-Vicryl closure of the fascia, followed by 2-0 Monocryl deep dermal sutures, interrupted 3 -0 nylons for closure of the skin. Sterile dressing were then applied including xeroform dressing sponges, island dressings. Betadine soaked Adaptic and a black sponge was then placed over the proximal tibial traction pin site and a wound VAC was applied due to the proximity of the proximal tibial traction pin to the tibial implant to promote healing and prevent periprosthetic joint infection given the patient's history of liver cirrhosis and potential for poor wound healing. An bladimir wrap from the toes to the proximal thigh. The drapes and hip bump were then removed. Next, with the patient in the supine position, physical examination confirmed appropriate length, alignment, and rotation of the operative lower extremity which was symmetric to the contralateral leg. The knee was also examined and found to be ligamentously stable. The patient's compartments remained soft and compressible, and she had a warm and well-perfused foot with palpable peripheral pulses and brisk cap refill about all toes The patient was then successfully roused from anesthesia, extubated in the operating room, carefully transferred back to the hospital stretcher, and then taken to the PACU in stable condition. The patient tolerated the above procedures well which were completed without any apparent intraoperative co mplications. All sponge and needle counts were correct x2 at the end of the case. Dr. Henning was present and/or immediately available for all critical portions of the procedure. Ortho Plan Activity: up with assist Weightbearing restrictions: NWB RLE, ok to WB for transfers Antibiotics: Continue ancef per ID Diet: ADAT DVT prophylaxis: Lovenox 40mg daily x 4 weeks Wound/Incision Care/Vac: Wound vac over pin sites to remain pending output. Keep in place for 5 days or until just prior to discharge. OK to reinforce dressings as needed Pain management: Recommend multimodal Physical Therapy/Occupational Therapy: Eval and treat Labs: Hgb POD1, trend until stable Disposition: Ready for discharge when patient is mobilizing safely as determined by physical therapy evaluation, pain is controlled on oral medications, tolerating a diet, voiding at baseline, bowel is functioning (stooling or passing flatus), and patient is medically stable. Follow Up: Follow-up with Dr. Henning team in 2 weeks for wound check Serge Parker DO Ortho Traumaplasty Fellow 02/05/2024 Faculty Attestation My signature attests that I was present for the valencia or critical portion of this procedure. I was immediately available or had arranged immediate staff availability for all the non-critical or non-keyportions of the entire procedure. Dayo Henning MD, 02/08/2024 12:12 PM documented in this encounter ED Notes * Natacha Mcadams RN - 02/02/2024 9:28 PM CDT Report given to primary nurse, Catarino. * Ileana Howell APRN, CARPENTER REFRIGERATOR - 02/02/2024 9:19 PM CDT Transfer of Care Note Emergency Dept Medical Provider Patient: Cathy Raymond : 1965 Demo: 58 y.o. female Sign out received from Josse MESSER. Please see original ED provider note for further details. PERTINENT HPI, PMH, & ED COURSE In brief, 58 y.o. female with a history of alcoholic cirrhosis, fatty liver, chronic inflammatory demyelinating polyradiculoneuropathy, DVT, MAX, T2DM, HTN who presents as transfer from [facility] for RIGHT midshaft femur fracture after mechanical fall at home. Hx 2 total knee replacements, chronic R foot wound, cirrhosis w/ ascites. Ancef given by OSH for fx. Blood Cx obtained from OSH,not repeated here. Work-up: Ortho preformed traction under sedation UTI on urinalysis here > CTX initiated Paracentesis obtained in setting of abd distension and mild temp 100.0 r/o SBP > few nuc cells, no organisms No leukocytosis Signed out to medicine team FINAL ED COURSE, DISPOSITION, AND PLAN BP 107/74 Pulse 82 Temp 37.7 ??C (99.9 ??F) (Oral) Resp 13 Wt 98.8 kg (217 lb 13 oz) [id number] Upon assuming care, I reviewed the chart, results of studies performed during their course in the ED, re-examined the patient, and discussed their care and plan with my supervising attending. Distended abd > CT unable to r/o volvulus Medicine team paged re: CT a/p results, surgery consulted and paged ED Course as of 02/02/242133 Tue Feb 02, [id number] Weak at home, mech fall, R femur fx, UTI, lots of poop, ortho did traction under sedation, ascities 2/2 cirrhosis, tapped > temp 100.0, no WBCs. OSH Bcx, chronic R foot wound has ancef by OSH. CTX started here. Med can talk with surg re: CT a/p r/o volvulus. 2120 Gram Stain Report: PMN's seen. No organisms seen. [address] PT Fluid: 93 2122 UA, Total(!): Color YELLOW Appearance CLOUDY(!) Urine Glucose NEGATIVE Bili UA TRACE(!) Ketones TRACE(!) Specific [place] 1.024 Blood Ur LARGE(!) PH Urine 6.0 Protein Ur 30(!) Urobilinogen >=8(!) Nitrite Ur NEGATIVE Leuk Est SMALL(!) WBC Ur 6-10(!) RBC Ur >20(!) SQ EPITH 0-5 Bacteria UA PRESENT Urinalysis Performed at: [facility] Receiving CTX 2122 LFTs(!): Total Protein 5.8(!) Albumin 2.4(!) Bili Total 1.1 Bili Direct 0.5(!) Alk Phos 107(!) ALT (SGPT) 19 AST(SGOT) 39 Known cirrhosis 2122 Creatinine: 0.72 2123 HS Troponin I: <3 2123 WBC: 7.34 2123 Hgb(!): 9.3 2123 Plt: 176 2123 Lactate: 1.[address] ABDOMEN/PELVIS WITH IV CONTRAST sigmoid colon is significantly distended to 11 cm, sigmoid volvulus cannot be excluded. No free airto suggest perforation. 2124 XR FOOT RIGHT 3 V AP/OBL/LAT* No definitive bony cortical destruction is identified to suggest osteomyelitis. Significant soft tissue swelling throughout the foot. A 4 mm foreign body is identified within the plantar soft tissuesof the second toe. 2125 XR FEMUR RIGHT AP + LAT* Acute significantly displaced angulated periprosthetic fracture of the distal femur Impression/Disposition and Plan 1. Other fracture of right femur, initial encounter for closed fracture (CMS) 2. Acute cystitis with hematuria MSO admission to hospitalist team for femur fx, URI, and possible sigmoid volvulus CTX for UTI Dilaudid for pain Patient remained hemodynamically stable throughout their stay in the ED. No significant changes from prior provider's note. Report called to admitting team. Patient transported to floor without incident. Ileana Howell APRN, RALPH, DNP Emergency Medicine Nurse Practitioner Dictation Disclaimer: Some notes are completed with voice-recognition dictation software. As a result, there may be errors in the script that have gone undetected. Errors are generally corrected in real time. Please contact me via [employer] staff message if you note any errors requiring clarification. * Natacha Mcadams RN - 02/02/2024 9:16 PM CDT Traction set to 20 pounds. * Natacha Mcadams RN - 02/02/2024 9:00 PM CDT Xray at bedside * Natacha Mcadams RN - 02/02/2024 8:41 PM CDT Patient transported to STAB for sedation for krystle placement and traction. * Enedina Austin MD - 02/02/2024 6:08 PM CDT Metal Reed Tuner of the Day (MOD) Triage/Communication Note Sign out received from Cooper in [facility] (team center/clinic). Requested unit: G3 (choose from: any medicine floor, specific medicine floor with rationale, CaRe, RTU, MICU). Patient status: INPT. (Obs v. Inpt) Cardiac telemetry needed? (specify if remote telemetry OK). Summary of verbal sign out given by ED/clinic BAGGAGE AGENT SUPERVISOR: Cirrhosis, right femur fracture 58yo hx of cirrhosis, transferred from [facility] for a femur fracture after a fall at home. Has 2 total knee replacement. Has displaced mid-shaft right femur fracture -- ortho has been consulted. Got ancef for right foot wound. Has UTI - getting ceftriaxone ED to do paracentesis. Enedina Austin MD, 02/02/2024 6:13 PM Staff Physician, [facility] Medicine Note is for communication only, not billing * Cooper Loaiza MD - 02/02/2024 3:32 PM CDT Images from the original note were not included. ED Provider Note Cathy Raymond : 1965 Sex: female Patient Arrival Date and Time: 02/02/2024 3:17 PM HPI 58F w/ hx etoh cirrhosis, chronic lymphedema presents as transfer [facility] for mechanical fall after feeling legs become weak while standing up. Had been getting out of wheelchair. Had immediate R leg pain and thought she had injured her R knee of which she has had hx TKA bilaterally. Has chronic neuropathy but no sensory changes to distal leg noted. Abdominal distension is baseline and continuesto have loose stools. Baseline mild abdominal pain, no nausea or vomiting. No chest pain or shortness of breath. Also has chronic foot wounds for which have been weeping clear fluid and she doesn't follow for wound care with anyone, per report. MDM / ED Course Cathy Raymond presented to the emergency department with Leg Deformity Patient here w/ mechanical fall vs syncope w/ subsequent R femur fracture. Ortho consulted, recs asbelow and ultimately placed in traction with procedural sedation. Also found to have urinary tract infection which may have contribution to why patient fell. Diffuse ascites and with borderline feverperitoneal fluid sample sent with drainage of 4 L of ascites. Given ceftriaxone for UTI. Other traumatic XR workup showed dilated bowel and CT abd/pelvis with findings as below. Will need consult with surgery/GI to eval for volvulus since it couldn't be r/o on CT, signed this out to oncoming provider. Will be admitted to medicine, ortho to follow. Received dilaudid for pain control in ED. Not given fludis as patient appears fluid overloaded and anasarcatous with stable vitals. Osh had given ancef for R foot wound and may benefit from wound cares inpatient vs podiatry consult but no signs of osteo on XR. ED Course as of 02/02/242201 Tue Feb 02, 2024 160 ED EKG (12-LEAD) Nsr no acute ischemia 1648 Ortho aware of femur fracture; will evaluate 1653 Ortho to evaluate 1653 ED Chemistry(!): Sodium 135 Chloride 100 AnGap 9 Glucose 105(!) ICA, Actual 4.21(!) ICA pH Corrected 4.45 Creatinine 0.72 BICARB 26 eGFR (2020 CKD-EPI) 96 Potassium 3.5 unremarkable 1653 CBC with Plts/Auto Diff(!): WBC 7.34 RBC 3.08(!) Hgb 9.3(!) Hematocrit 28.5(!) MCV 92.5 MCH 30.2 MCHC 32.6 RDW 13.5 Plt 176 MPV 10.2 Automated Abs Neutrophil 5.98 Abs Immature Granulocyte 0.03 Abs Neutrophil 5.98 Abs Lymphocyte 0.80 Abs Monocyte 0.52 Abs Eosinophil 0.00 Abs Basophil 0.01 unremarkable 1654 Lactate: 1.1 1654 ED US ABDOMINAL/GALLBLADDER Impression: No gallstones, negative sonographic tobin sign, ascites 1711 HS Troponin I: <3 1712 Reviewed outside records: had fall at home after losing balance, felt R knee/leg pain immediately, couldn't bear weight. Hx cirrhosis, chronic lymphedema. Blood cultures sent there. Got ancef dose for R foot wound they felt was purulent. 1717 INR(!): 1.6 1728 UA, Total(!): Color YELLOW Appearance CLOUDY(!) Urine Glucose NEGATIVE Bili UA TRACE(!) Ketones TRACE(!) Specific [place] 1.024 Blood Ur LARGE(!) PH Urine 6.0 Protein Ur 30(!) Urobilinogen >=8(!) Nitrite Ur NEGATIVE Leuk Est SMALL(!) WBC Ur 6-10(!) RBC Ur >20(!) SQ EPITH 0-5 Bacteria UA PRESENT Urinalysis Performed at: [facility] Grossly concerning for infection; will treat with ceftriaxone 1833 XR FEMUR RIGHT AP + LAT* IMPRESSION: Acute significantly displaced angulated periprosthetic fracture of the distal femur 1833 XR KNEE RIGHT 2 VIEWS AP/LAT IMPRESSION: Acute significantly displaced periprosthetic fracture of the distal femur. 1834 XR FOOT RIGHT 3 V AP/OBL/LAT* IMPRESSION: 1. A 4 mm foreign body is identified within the plantar soft tissues of the second toe. 2. No definitive bony cortical destruction is identified to suggest osteomyelitis. 3. Significant soft tissue swelling throughout the foot. 1835 Ortho to put pt in traction; will need sedation 1836 XR PELVIS AP* IMPRESSION: 1. Severe gaseous distention of the partially visualized colon with loops of bowel measuring up to 20 cm. Colonic volvulus / large bowel obstruction cannot be excluded. Recommend CT of the abdomen and pelvis with IV contrast for further evaluation. 2. No acute pelvic fracture is identified. 1953 CT ABDOMEN/PELVIS WITH IV CONTRAST IMPRESSION: 1. The sigmoid colon is significantly [...] articular surface, suggestive of mild avascular necrosis Problems Addressed 1 or more chronic illnesses with severe exacerbation, progression, or side effects of treatment and 1 acute or chronic illness or injury that poses a threat to life or bodily function Data considered External notes reviewed and summarized, Tests Ordered, Additional tests considered but not ordered, Independent interpretation of studies, Consultation obtained, and Test result/interpretation reviewed with colleague Risk of patient management Prescription drug management, Decision regarding hospitalization, and Parenteral controlled substances IMPRESSION 1. Other fracture of right femur, initial encounter for closed fracture (CMS) 2. Acute cystitis with hematuria Pertinent Physical Exam findings: Constitutional: A/A, appropriate, NAD Eyes: No conjunctival injection and normal lids ENT: external nose and ears atraumatic Neck: Symmetric, trachea midline, Supple CV: RRR, no murmurs appreciated. Pulm: Unlabored respiratory effort, good air movement, CTAB, no w/c/r appreciated. GI: Grossly distended, nontender, taut. No rebound or guarding. MSK: No deformities. No cyanosis. RLE w/ deformity to mid femur w/ good distal cap refill. Neuro: A&O, normal speech, following commands, grossly symmetric strength in all extremities. Cranial nerves grossly intact. Decreased sensation to light touch diffuse to BLE distal to knee pt reports is baseline. Skin: warm & dry, no rashes or lesions Scattered candidiasis in pannus. Psych: A&O, appropriate mood & affect. Patient remained hemodynamically stable throughout their stay in the ED. Discussed with the patientthe plan for admission. The patient expressed understanding and agreement with the plan. Report wascalled to the admitting provider. Patient was transported to the floor without incident Cooper Loaiza MD, 02/02/2024 10:02 PM * Catarino Ovalles RN - 02/02/2024 3:17 PM CDT BIB[place] as a [place] transfer. EMS was called around 0945 for a stumble and fall. HX of ETOH with cirrohsis and ascites. Right mid-shaft with Morphine and dilaudid in [place] ED. 4 mg morphine en route. Pain rating 3 or 4/10 2 g cefazolin en route 20 RFA * Maggie Tariq RN - 02/02/2024 1:44 PM CDT Report called from [facility]. Pt is non weight bearing and lives at home. Pt fell and found to have a right femur fracture. Pt has many wounds and ascites. Unable to place andrade. Given morphine, dilaudid, 2g cef, and zofran. 20g right forearm. VSS. Leg placed in traction documented in this encounter Miscellaneous Notes * Interval Note Provider - Denia Juan MD - 02/08/2024 3:32 PM CDT Please do not cosign the following note. It is for tracking purposes only. PROCEDURES I performed the following procedures: Procedural Sedation Denia Juan MD, 02/08/2024 3:32 PM * Nursing Assessment - Allie Aleaxndra RN - 02/08/2024 4:24 AM CDT Nursing Assessment Head to Toe Head to Toe Assessment Shift Summary [id number] Pt A&Ox4. Endorsed pain to to RLE. PRN given per dec. Pt sleeping on reassessment. Numbness to RLE has peripheral neuropathy. Other CMS intact. Leg elevated. Andrade placed at 2350 for retention. Pt tolerated well. Andrade draining dark brown urine. Small BM this shift. Paracentesis site draining small output. Pt drinking fluids well. On RA Allie Alexandra RN, 02/08/2024 4:30 AM BP 96/62 (Cuff Location: Left Arm) Pulse 76 Temp 36.8 ??C (98.2 ??F) (Oral) Resp 18 Ht 1.727 m (5' 8) Wt 98.4 kg (217 lb) SpO2 100% BMI 32.99 kg/m?? Neurologic/Cognitive Within Defined Limits HEENT Assessment Within Defined Limits except for: Teeth Symptoms: Tooth/teeth missing Cardiac Within Defined Limits Respiratory Within defined limits Neurovascular Assessment Within Defined Limits except for: Neurovascular RLE Sensation: Tenderness Edema Present: Yes Right Lower Extremity: 2+ Gastrointestinal Assessment Within Defined Limits except for: Abdominal appearance: Rounded, obese and distended Palpation firm - tender - Comments: Drain on R abd Stool (unmeasured): 1 (02/06/24 1800) Stool Amount: large (02/06/24 1100) Stool Color: light brown (02/06/24 1100) Stool Consistency: liquid (02/06/24 1100) Genitourinary Assessment Within Defined Limits except for: Voiding: Urinary catheter in place Musculoskeletal Assessment Within Defined Limits except for: Musculoskeletal Assessment: General Mobility: Moderately impaired Range of Motion: RLE - moderately impaired and severely impaired Integumentary Assessment Within Defined Limits except for: Skin Assessment Integrity - excoriation and rashes Integrity Location - RLE incision, sacral wound, abdominal folds, groin rashes Patient Lines/Drains/Airways Status Active LDAs Name Placement date Placement time Site Days Peripheral IV 02/02/24 20 gauge Anterior;Right Forearm 02/02/24 1519 -- 5 Peripheral IV 02/02/24 20 gauge Anterior;Left Forearm 02/02/24 2019 -- 5 Rash 02/02/24 2347 groin 02/02/24 2347 -- 5 Rash 02/02/24 2348 02/02/24 2348 -- 5 Wound 02/03/24 Pretibial Left 02/03/24 0104 Pretibial 5 Wound 02/03/24 Pedal Anterior;Right 02/03/24 0636 Pedal 4 Wound 02/03/24 Ulceration Sacrum 02/03/24 1200 Sacrum 4 Wound 02/05/24 Incision Knee Anterior;Right 02/05/24 1331 Knee 2 Wound 02/05/24 Incision Leg Distal;Upper;Right 02/05/24 1443 Leg 2 (NPWT) Negative Pressure Wound Therapy Pretibial Proximal;Right;Lateral;Inner 02/05/24 1514 -- 2 Psychosocial Within Defined Limits * Cross Cover - Solitario Watson MD - 02/07/2024 9:31 PM CDT Called with continued urinary retention. NO spontaneous urine since her andrade was removed over 24 hours ago. She has been straight cathed tsince then. Receiving diuretics. Bladder scan will be difficult to interpret in the setting of ascites. Plan: - replace andrade - may need outpatient urology follow-up Dr. Solitario Watson * Nursing Assessment - Humphrey Nagel RN - 02/07/2024 4:23 PM CDT Nursing Assessment Head to Toe Head to Toe Assessment Shift Summary Patient is alert and oriented X 4. Reports pain to surgical leg and given oxycodone 10 mg X 2 and dilaudid IV with good effect per patient report. Patient abdomen very extended and hard. Journeyman Mechanic notedno urine output and straight cath for 300 ml at 1400. Patient reports being incontinent at baselineand was incontinent of stool one time this shift. Journeyman Mechanic placed external catheter on patient at 1700 after diuretic administration. Patient very anxious when repositioning . Wound vac failed and science writer notified ortho provider. Provider reports that wound vac is just over pin site and can go withoutit if unable to get a new one tonight. Patients groin is raw and red and science writer provided nystatin and lotion to area. Wound care done per order by science writer to coccyx. Patient does not tolerate repositioning and micro turns provided when patient tolerates. Neurologic/Cognitive Within Defined Limits HEENT Within Defined Limits Cardiac Within Defined Limits Respiratory Within defined limits Neurovascular Assessment Within Defined Limits except for: Gastrointestinal Assessment Within Defined Limits except for: Abdominal appearance: Rounded, distended and ostomy Additional GI Signs/Symptoms: fecal incontinence Stool (unmeasured): 1 (02/06/24 1800) Stool Amount: large (02/06/24 1100) Stool Color: light brown (02/06/24 1100) Stool Consistency: liquid (02/06/24 1100) Genitourinary Assessment Within Defined Limits except for: Voiding: Intermittent straight cath and oliguric Musculoskeletal Assessment Within Defined Limits except for: Musculoskeletal Assessment: Range of Motion: LLE - severely impaired RLE - severely impaired Integumentary Assessment Within Defined Limits except for: Skin Assessment Integrity - see Avatar LDA documentation Patient Lines/Drains/Airways Status Active LDAs Name Placement date Placement time Site Days Peripheral IV 02/02/24 20 gauge Anterior;Right Forearm 02/02/24 1519 -- 5 Peripheral IV 02/02/24 20 gauge Anterior;Left Forearm 02/02/242018 -- 4 Rash 02/02/24 2347 groin 02/02/24 2347 -- 4 Rash 02/02/24 2348 02/02/24 2348 -- 4 Wound 02/03/24 Pretibial Left 02/03/24 0104 Pretibial 4 Wound 02/03/24 Pedal Anterior;Right 02/03/24 0636 Pedal 4 Wound 02/03/24 Ulceration Sacrum 02/03/24 1200 Sacrum 4 Wound 02/05/24 Incision Knee Anterior;Right 02/05/24 1331 Knee 2 Wound 02/05/24 Incision Leg Distal;Upper;Right 02/05/24 1443 Leg 2 (NPWT) Negative Pressure Wound Therapy Pretibial Proximal;Right;Lateral;Inner 02/05/24 1514 -- 2 Psychosocial Assessment Within Defined Limits except for: Psychosocial Assessment: Observed Patient Behaviors: Anxious/afraid/apprehensive * Nursing Assessment - Humphrey Nagel RN - 02/07/2024 11:11 AM CDT Nursing Assessment Head to Toe Head to Toe Assessment Shift Summary Shift Summary Neurologic/Cognitive Assessment Within Defined Limits except for: HEENT Within Defined Limits Cardiac Within Defined Limits Respiratory Within defined limits Neurovascular Assessment Within Defined Limits except for: Edema Present: Yes Right Lower Extremity: 1+ Left Lower Extremity: 2+ Gastrointestinal Assessment Within Defined Limits except for: Abdominal appearance: Rounded, distended, taut and ostomy Additional GI Signs/Symptoms: abdominal discomfort Stool (unmeasured): 1 (02/06/24 1800) Stool Amount: large (02/06/24 1100) Stool Color: light brown (02/06/24 1100) Stool Consistency: liquid (02/06/24 1100) Genitourinary Assessment Within Defined Limits except for: Voiding: Intermittent straight cath Musculoskeletal Assessment Within Defined Limits except for: Musculoskeletal Assessment: General Mobility: Generalized weakness Range of Motion: LLE - severely impaired RLE - severely impaired Integumentary Assessment Within Defined Limits except for: Skin Assessment Integrity - see Avatar LDA documentation Patient Lines/Drains/Airways Status Active LDAs Name Placement date Placement time Site Days Peripheral IV 02/02/24 20 gauge Anterior;Right Forearm 02/02/24 1519 -- 4 Peripheral IV 02/02/24 20 gauge Anterior;Left Forearm 02/02/242018 -- 4 Rash 02/02/24 2347 groin 02/02/24 2347 -- 4 Rash 02/02/24 2348 02/02/24 2348 -- 4 Wound 02/03/24 Pretibial Left 02/03/24 0104 Pretibial 4 Wound 02/03/24 Pedal Anterior;Right 02/03/24 0636 Pedal 4 Wound 02/03/24 Ulceration Sacrum 02/03/24 1200 Sacrum 3 Wound 02/05/24 Incision Knee Anterior;Right 02/05/24 1331 Knee 1 Wound 02/05/24 Incision Leg Distal;Upper;Right 02/05/24 1443 Leg 1 (NPWT) Negative Pressure Wound Therapy Pretibial Proximal;Right;Lateral;Inner 02/05/24 1514 -- 1 Psychosocial Assessment Within Defined Limits except for: Psychosocial Assessment: Observed Patient Behaviors: Anxious/afraid/apprehensive * Nursing Assessment - Allie Alexandra RN - 02/07/2024 3:51 AM CDT Nursing Assessment Head to Toe Head to Toe Assessment Shift Summary [id number] Pt A&Ox4. Endorsed pain to to RLE. PRN given per mar. Pt sleeping on reassessment. POD #1. Numbness to RLE has peripheral neuropathy. Other CMS intact. Wound vac to RLE -125 mmhg. No drainage. Leg elevate. Paracentesis site draining small output. Pt drinking fluids well. Pt retaining urine. Last void 1800. Straight cath output 300ml. Concentrated urine. On RA Allie Alexandra RN, 02/07/2024 6:36 AM BP 102/47 (Cuff Location: Right Arm) Pulse 80 Temp 36.4 ??C (97.6 ??F) (Tympanic) Resp 19 Ht 1.727 m (5' 8) Wt 98.4 kg (217 lb) SpO2 92% BMI 32.99 kg/m?? Neurologic/Cognitive Within Defined Limits HEENT Assessment Within Defined Limits except for: Teeth Symptoms: Tooth/teeth missing Cardiac Within Defined Limits Respiratory Within defined limits Neurovascular Assessment Within Defined Limits except for: Neurovascular RLE Sensation: Tenderness Edema Present: Yes Right Lower Extremity: 2+ Gastrointestinal Assessment Within Defined Limits except for: Abdominal appearance: Rounded, obese and distended Palpation firm - tender - Comments: Drain on R abd Stool (unmeasured): 1 (02/06/24 1800) Stool Amount: large (02/06/24 1100) Stool Color: light brown (02/06/24 1100) Stool Consistency: liquid (02/06/24 1100) Genitourinary Assessment Within Defined Limits except for: Musculoskeletal Assessment Within Defined Limits except for: Musculoskeletal Assessment: General Mobility: Moderately impaired Range of Motion: RLE - moderately impaired and severely impaired Integumentary Assessment Within Defined Limits except for: Skin Assessment Integrity - excoriation and rashes Integrity Location - RLE incision, sacral wound, abdominal folds, groin rashes Patient Lines/Drains/Airways Status Active LDAs Name Placement date Placement time Site Days Peripheral IV 02/02/24 20 gauge Anterior;Right Forearm 02/02/24 1519 -- 4 Peripheral IV 02/02/24 20 gauge Anterior;Left Forearm 02/02/242018 -- 4 Rash 02/02/24 2347 groin 02/02/24 2347 -- 4 Rash 02/02/24 2348 02/02/24 2348 -- 4 Wound 02/03/24 Pretibial Left 02/03/24 0104 Pretibial 4 Wound 02/03/24 Pedal Anterior;Right 02/03/24 0636 Pedal 3 Wound 02/03/24 Ulceration Sacrum 02/03/24 1200 Sacrum 3 Wound 02/05/24 Incision Knee Anterior;Right 02/05/24 1331 Knee 1 Wound 02/05/24 Incision Leg Distal;Upper;Right 02/05/24 1443 Leg 1 (NPWT) Negative Pressure Wound Therapy Pretibial Proximal;Right;Lateral;Inner 02/05/24 1514 -- 1 Psychosocial Within Defined Limits * Nursing Assessment - Nino Simpson, GEOFF - 02/06/2024 3:17 PM CDT Nursing Assessment Head to Toe Head to Toe Assessment Shift Summary Encouraging pt to increase participation in mobility activities. Sat edge of bed with assistance but did not progress to standing. Using bedpan for voiding since removal of andrade catheter, 170 mL residual post void. Loose liquid BM. Commode ordered and encouraged for use. Pain managed with prn oxycodone and Dilaudid, no change in CMS, peripheral neuropathy baseline. IV abx per order. Dressings remain c/d/I with no drainage in NPWT. Continue working with PTOT. Neurologic/Cognitive Assessment Within Defined Limits except for: Mood/Behavior: Anxious HEENT Assessment Within Defined Limits except for: Teeth Symptoms: Tooth/teeth missing Cardiac Within Defined Limits Respiratory Within defined limits Neurovascular Assessment Within Defined Limits except for: Neurovascular RLE Sensation: Tenderness Edema Present: Yes Right Lower Extremity: 2+ Left Lower Extremity: 2+ Gastrointestinal Assessment Within Defined Limits except for: Abdominal appearance: Rounded, obese and distended Palpation firm - tender - Comments: Drain on R abd Stool (unmeasured): 1 (02/06/24 1100) Stool Amount: large (02/06/24 1100) Stool Color: light brown (02/06/24 1100) Stool Consistency: liquid (02/06/24 1100) Genitourinary Assessment Within Defined Limits except for: Musculoskeletal Assessment Within Defined Limits except for: Musculoskeletal Assessment: General Mobility: Moderately impairedJoint Tenderness right - hip and knee Range of Motion: RLE - moderately impaired and severely impaired Integumentary Assessment Within Defined Limits except for: Skin Assessment Integrity - excoriation and rashes Integrity Location - RLE incision, sacral wound, abdominal folds, groin rashes Patient Lines/Drains/Airways Status Active LDAs Name Placement date Placement time Site Days Peripheral IV 02/02/24 20 gauge Anterior;Right Forearm 02/02/24 1519 -- 3 Peripheral IV 02/02/24 20 gauge Anterior;Left Forearm 02/02/24 2019 -- 3 Rash 02/02/24 2347 groin 02/02/24 2347 -- 3 Rash 02/02/24 2348 02/02/24 2348 -- 3 Wound 02/03/24 Pretibial Left 02/03/24 0104 Pretibial 3 Wound 02/03/24 Pedal Anterior;Right 02/03/24 0636 Pedal 3 Wound 02/03/24 Ulceration Sacrum 02/03/24 1200 Sacrum 3 Wound 02/05/24 Incision Knee Anterior;Right 02/05/24 1331 Knee 1 Wound 02/05/24 Incision Leg Distal;Upper;Right 05/03/24 1443 Leg 1 (NPWT) Negative Pressure Wound Therapy Pretibial Proximal;Right;Lateral;Inner 02/05/24 1514 -- 1 Psychosocial Assessment Within Defined Limits except for: Psychosocial Assessment: Observed Patient Behaviors: Anxious/afraid/apprehensive Verbalized Emotional State: Fear Family Behavior: not present * Nursing Assessment - Nino Simpson RN - 02/06/2024 12:14 PM CDT Nursing Assessment Head to Toe Head to Toe Assessment Shift Summary Pt alert and oriented on room air. Pt anxious and has greatly increased pain, fear with movement. Managing pain with scheduled meds and prn oxycodone and IV Dilaudid. Assist x2 needed for repositioning, pt sometimes refusing turns or allowing only microturns d/t pain and fear of pain. Ordered and transferred pt to [facility] d/t high skin risk and current skin problems. Mepilex on sacral wound. Re-educated on and encouraging use of IS hourly. Abdomen very distended, small yellow fluid draining into R abdominal bag. Pt denied nausea, sob, cp. Andrade catheter removed per order, at 1100; will monitor for urinary retention. Large liquid BM, pericares as needed. Antifugal topical and powder applied to abdominal skin folds redness, precleansed gently with barrier wipes. RLE bladimir dressing c/d/I, wiggles toes, cool to touch. NPWT -125 mmHg continuous with no current output. Plan to work with PTOT this evening, continue to increase functional mobility and manage pain. Neurologic/Cognitive Assessment Within Defined Limits except for: Mood/Behavior: Anxious HEENT Assessment Within Defined Limits except for: Teeth Symptoms: Tooth/teeth missing Cardiac Within Defined Limits Respiratory Within defined limits Neurovascular Assessment Within Defined Limits except for: Neurovascular RLE Sensation: Tenderness Edema Present: Yes Right Lower Extremity: 2+ Gastrointestinal Assessment Within Defined Limits except for: Abdominal appearance: Rounded, obese and distended Palpation firm - tender - Comments: Drain on R abd Stool (unmeasured): 1 (02/06/24 1100) Stool Amount: large (02/06/24 1100) Stool Color: light brown (02/06/24 1100) Stool Consistency: liquid (02/06/24 1100) Genitourinary Assessment Within Defined Limits except for: Musculoskeletal Assessment Within Defined Limits except for: Musculoskeletal Assessment: General Mobility: Moderately impairedJoint Tenderness right - hip and knee Range of Motion: RLE - moderately impaired and severely impaired Integumentary Assessment Within Defined Limits except for: Skin Assessment Integrity - excoriation and rashes Integrity Location - RLE incision, sacral wound, abdominal folds, groin rashes Patient Lines/Drains/Airways Status Active LDAs Name Placement date Placement time Site Days Peripheral IV 02/02/24 20 gauge Anterior;Right Forearm 02/02/24 1519 -- 3 Peripheral IV 02/02/24 20 gauge Anterior;Left Forearm 02/02/24 2019 -- 3 Rash 02/02/24 2347 groin 02/02/24 234 -- 3 Rash 02/02/24 2348 02/02/24 2348 -- 3 Wound 02/03/24 Pretibial Left 02/03/24 0104 Pretibial 3 Wound 02/03/24 Pedal Anterior;Right 02/03/24 0636 Pedal 3 Wound 02/03/24 Ulceration Sacrum 02/03/24 1200 Sacrum 3 Wound 02/05/24 Incision Knee Anterior;Right 02/05/24 1331 Knee less than 1 Wound 02/05/24 Incision Leg Distal;Upper;Right 02/05/24 1443 Leg less than 1 (NPWT) Negative Pressure Wound Therapy Pretibial Proximal;Right;Lateral;Inner 02/05/24 1514 -- lessthan 1 Psychosocial Assessment Within Defined Limits except for: Psychosocial Assessment: Observed Patient Behaviors: Anxious/afraid/apprehensive Verbalized Emotional State: Fear Family Behavior: not present * Nursing Assessment - Allie Alexandra RN - 02/06/2024 3:26 AM CDT Nursing Assessment Head to Toe Head to Toe Assessment Shift Summary [id number] Pt Sleeping upon shift change. Endorsed pain to to RLE. PRN given per dec. Pt sleeping on reassessment. POD #0. Numbness to RLE. Other CMS intact. Leg elevated and ICE pack provided. Paracentesis site draining small output. Andrade in place draining well. Pt drinking fluids well. Pt informed science writer she will call when she needs to be positioned . Allie Alexandra RN, 02/06/2024 3:34 AM BP 95/64 (Cuff Location: Left Arm) Pulse 70 Temp 36 ??C (96.8 ??F) (Tympanic) Resp 14 Ht 1.727 m (5' 8) Wt 98.4 kg (217 lb) SpO2 93% BMI 32.99 kg/m?? Neurologic/Cognitive Within Defined Limits HEENT Assessment Within Defined Limits except for: Teeth Symptoms: Tooth/teeth missing Cardiac Within Defined Limits Respiratory Within defined limits Neurovascular Assessment Within Defined Limits except for: Neurovascular RLE Sensation: Tenderness Edema Present: Yes Right Lower Extremity: 2+ Gastrointestinal Assessment Within Defined Limits except for: Abdominal appearance: Rounded, obese and distended Palpation firm - tender - Comments: Drain on R abd Stool Amount: small (02/05/24 0200) Stool Color: abhi colored (02/05/24 0200) Stool Consistency: liquid (02/05/24 0200) Genitourinary Assessment Within Defined Limits except for: Voiding: Urinary catheter in place Musculoskeletal Assessment Within Defined Limits except for: Musculoskeletal Assessment: General Mobility: Moderately impaired Range of Motion: RLE - moderately impaired and severely impaired Integumentary Assessment Within Defined Limits except for: Skin Assessment Integrity - excoriation and rashes Integrity Location - RLE incision, sacral wound, abdominal folds, groin rashes Patient Lines/Drains/Airways Status Active LDAs Name Placement date Placement time Site Days Peripheral IV 02/02/24 20 gauge Anterior;Right Forearm 02/02/24 1519 -- 3 Peripheral IV 02/02/24 20 gauge Anterior;Left Forearm 02/02/24 2019 -- 3 Rash 02/02/24 2347 groin 02/02/24 2347 -- 3 Rash 02/02/24 2348 02/02/24 2348 -- 3 Wound 02/03/24 Pretibial Left 02/03/24 0104 Pretibial 3 Wound 02/03/24 Pedal Anterior;Right 02/03/24 0636 Pedal 2 Wound 02/03/24 Ulceration Sacrum 02/03/24 1200 Sacrum 2 Wound 02/05/24 Incision Knee Anterior;Right 02/05/24 1331 Knee less than 1 Wound 02/05/24 Incision Leg Distal;Upper;Right 02/05/24 1443 Leg less than 1 Urinary Catheter 02/02/24 1714 -- 3 (NPWT) Negative Pressure Wound Therapy Pretibial Proximal;Right;Lateral;Inner 02/05/24 1514 -- lessthan 1 Psychosocial Within Defined Limits * Nursing Assessment - Nino Simpson RN - 02/05/2024 5:55 PM CDT Nursing Assessment Head to Toe Head to Toe Assessment Shift Summary Pt returned from PACU alert and oriented on 2L O2 NC. Educated on and encouraging use of IS hourly.Pt abdomen appears more distended than prior to surgery. Pt denied sob, cp, nausea. Bowel sounds present and resumed diet. Yellow fluid draining into R abdominal bag. Andrade catheter in place draining urine. RLE bladimir dressing c/d/I, wiggles toes, cool to touch. NPWT -125 mmHg continuous with no current output. Prn oxycodone administered for pain 06/14. Pt needed assist to turn and was very limited with bed mobility. Sacral mepilex on wound c/d/I. Upon return to unit, a [facility] Skin Inspection was completed with [facility] (Name & Title). Skin injuries were present, and skin breakdown needing further assessment will be added to Avatar. Will implement interventions from Skin INJURY Bundle as appropriate. Plan to manage pain, increase functional mobility and ween off O2. Neurologic/Cognitive Within Defined Limits HEENT Assessment Within Defined Limits except for: Teeth Symptoms: Tooth/teeth missing Cardiac Within Defined Limits Respiratory Within defined limits Neurovascular Assessment Within Defined Limits except for: Neurovascular RLE Sensation: Tenderness Edema Present: Yes Right Lower Extremity: 2+ Gastrointestinal Assessment Within Defined Limits except for: Abdominal appearance: Rounded, obese and distended Palpation firm - tender - Comments: Drain on R abd Stool Amount: small (02/05/24 0200) Stool Color: abhi colored (02/05/24 0200) Stool Consistency: liquid (02/05/24 0200) Genitourinary Assessment Within Defined Limits except for: Voiding: Urinary catheter in place Musculoskeletal Assessment Within Defined Limits except for: Musculoskeletal Assessment: General Mobility: Moderately impaired Range of Motion: RLE - moderately impaired and severely impaired Integumentary Assessment Within Defined Limits except for: Skin Assessment Integrity - excoriation and rashes Integrity Location - RLE incision, sacral wound, abdominal folds, groin rashes Patient Lines/Drains/Airways Status Active LDAs Name Placement date Placement time Site Days Peripheral IV 02/02/24 20 gauge Anterior;Right Forearm 02/02/24 1519 -- 3 Peripheral IV 02/02/24 20 gauge Anterior;Left Forearm 02/02/24 2019 -- 2 Peripheral IV 02/02/24 18 gauge;1 3/4 in length Right Antecubital 02/02/242035 -- 2 Rash 02/02/24 2347 groin 02/02/242346 -- 2 Rash 02/02/24 2348 02/02/242347 -- 2 Wound 02/03/24 Pretibial Left 02/03/24 0104 Pretibial 2 Wound 02/03/24 Pedal Anterior;Right 02/03/24 0636 Pedal 2 Wound 02/03/24 Ulceration Sacrum 02/03/24 1200 Sacrum 2 Wound 02/05/24 Incision Knee Anterior;Right 02/05/24 1331 Knee less than 1 Wound 02/05/24 Incision Leg Distal;Upper;Right 02/05/24 1443 Leg less than 1 Urinary Catheter 02/02/24 1714 -- 3 (NPWT) Negative Pressure Wound Therapy Pretibial Proximal;Right;Lateral;Inner 02/05/24 1514 -- lessthan 1 Psychosocial Within Defined Limits * Op Note Immediate - Vignesh Jorge MD - 02/05/2024 1:31 PM CDT [facility] Immediate Post Operative Note Note written: Day of Surgery Patient Name: Cathy Raymond ( ) OR Date: 02/05/2024 1315 Procedure(s) and Anesthesia Type: * IM KRYSTLE FEMUR - General Pre-op History and Physical reviewed. Pre-Op Diagnosis Codes: * Femur fracture, right (CMS) [S72.91XA] Post-Op Diagnosis Codes: * Femur fracture, right (CMS) [S72.91XA] Surgeons and Role: * Dayo Henning MD - Primary * Vignesh Jorge MD - Resident - Assisting * Ian Gage MD - Fellow * Serge Parker DO - Fellow Antibiotics Administered vancomycin (VANCOCIN) injection Last given: 1503 Frequency: INTRA-OP ONCE PRN * No tourniquets in log * * No LDAs found * Implant Name Type Inv. Item Serial No. Appliance Assembler Lot No. LRB No. Used Action [employer]RO[employer]ADE [id number] Krystle [employer] [id number] [employer] [id number] Right 1 Implanted 5.0X60MM 2361-5060S Screw/[place] 5.0X60MM 2361-5060S [employer] [id number] Right 1 Implanted 5.0X70MM 2361-5070S Screw/[place] 5.0X70MM 2361-5070S [employer] [id number] Right 1 Implanted 5.0X75MM ADV 2361-5075S Screw/[place] 5.0X75MM ADV 2361-5075S [employer] [id number] Right 1 Implanted FREEHAND DRILL [id number] Drill bit/kiara FREEHAND DRILL [id number] [employer] [id number] Right1 Implanted 5.0X42.5MM 2360-5042S Screw/[place] 5.0X42.5MM 2360-5042S [employer] [id number] Right 1 Implanted Intraoperative Findings: see op note. EBL: 150 ml * No specimens in log * Complications: none. Ortho Plan Activity: up with assist Weightbearing restrictions: NWB RLE, ok to WB for transfers Antibiotics: Continue ancef per ID Diet: ADAT DVT prophylaxis: Lovenox 40mg daily x 4 weeks Wound/Incision Care/Vac: Wound vac over pin sites to remain pending output. OK to reinforce dressings as needed Pain management: Recommend multimodal Physical Therapy/Occupational Therapy: Eval and treat Labs: Hgb POD1, trend until stable Disposition: Ready for discharge when patient is mobilizing safely as determined by physical therapy evaluation, pain is controlled on oral medications, tolerating a diet, voiding at baseline, bowel is functioning (stooling or passing flatus), and patient is medically stable. Follow Up: Follow-up with Dr. Henning team in 2 weeks for wound check Vignesh Jorge MD Orthopaedic Surgery PGY-3 [facility] [place] Orthopaedic Trauma Service * Nursing Assessment - Nino Simpson, RN - 02/05/2024 10:39 AM CDT Nursing Assessment Head to Toe Head to Toe Assessment Shift Summary Pt alert and oriented on room air, NPO for OR procedure this afternoon. Pain managed with prn oxycodone, has chronic neuropathy BLE. Distended abdomen with yellow fluid drainage into bag. Andrade catheter in place draining mili concentrated urine. RLE dressing c/d/I, in traction. IV abx completed per order. Continue POC when pt returns from PACU. Neurologic/Cognitive Within Defined Limits HEENT Assessment Within Defined Limits except for: Teeth Symptoms: Tooth/teeth missing Cardiac Within Defined Limits Respiratory Within defined limits Neurovascular Assessment Within Defined Limits except for: Neurovascular RLE Sensation: Tenderness Edema Present: Yes Right Lower Extremity: 2+ Gastrointestinal Assessment Within Defined Limits except for: Abdominal appearance: Rounded, obese and distended Palpation firm - tender - Comments: Drain on R abd Stool Amount: small (02/05/24 0200) Stool Color: abhi colored (02/05/24 0200) Stool Consistency: liquid (02/05/24 0200) Genitourinary Assessment Within Defined Limits except for: Voiding: Urinary catheter in place Musculoskeletal Assessment Within Defined Limits except for: Musculoskeletal Assessment: General Mobility: Moderately impaired Range of Motion: RLE - moderately impaired Comments: RLE traction Integumentary Assessment Within Defined Limits except for: Skin Assessment Integrity - excoriation and rashes Integrity Location - abdominal folds, groin rashes Patient Lines/Drains/Airways Status Active LDAs Name Placement date Placement time Site Days Peripheral IV 02/02/24 20 gauge Anterior;Right Forearm 02/02/24 1519 -- 2 Peripheral IV 02/02/24 20 gauge Anterior;Left Forearm 02/02/242018 -- 2 Peripheral IV 02/02/24 18 gauge;1 3/4 in length Right Antecubital 02/02/242035 -- 2 Rash 02/02/242346 groin 02/02/242346 -- 2 Rash 02/02/248 04/30/24 2348 -- 2 Wound 02/03/24 Pretibial Left 02/03/24 0104 Pretibial 2 Wound 02/03/24 Pedal Anterior;Right 02/03/24 0636 Pedal 2 Wound 02/03/24 Ulceration Sacrum 02/03/24 1200 Sacrum 1 Urinary Catheter 02/02/24 1714 -- 2 Psychosocial Within Defined Limits * Nursing Assessment - [place]-Thu French RN - 02/05/2024 12:19 AM CDT Summary: [id number] Nursing Assessment Head to Toe Head to Toe Assessment Shift Summary Pt is A&OX4 with VSS on RA. Pt has very distended and taut stomach, paracentesis site drained 625 mL yellow fluid from ostomy bag. NPO status maintained. Andrade catheter in place draining mili concentrated urine. Pt reports neuropathy at baseline and CMS is intact to RLE. This science writer attempted to give CHG bath and pt wanted to wait until she had a BM as she felt like I have to go. Pt had 1 l iquid BM onto chux. Pre-op night before surgery/morning of surgery CHG baths completed. Shampoo capgiven at 0620. Will continue to monitor and follow POC. Neurologic/Cognitive Within Defined Limits HEENT Assessment Within Defined Limits except for: Teeth Symptoms: Tooth/teeth missing Cardiac Within Defined Limits Respiratory Within defined limits Neurovascular Assessment Within Defined Limits except for: Neurovascular RLE Sensation: Tenderness Edema Present: Yes Right Lower Extremity: 2+ Gastrointestinal Assessment Within Defined Limits except for: Abdominal appearance: Rounded, obese and distended Palpation firm - tender - Bowel Sounds hypoactive - Additional GI Signs/Symptoms: abdominal discomfort and constipation Stool Amount: large (02/04/24 0500) Stool Color: abhi colored (02/04/24 0500) Stool Consistency: liquid (02/04/24 0500) Genitourinary Assessment Within Defined Limits except for: Voiding: Urinary catheter in place Musculoskeletal Assessment Within Defined Limits except for: Musculoskeletal Assessment: General Mobility: Moderately impaired Range of Motion: RLE - moderately impaired Comments: Pt has traction Integumentary Assessment Within Defined Limits except for: Skin Assessment Integrity - excoriation and rashes Integrity Location - abdominal folds Patient Lines/Drains/Airways Status Active LDAs Name Placement date Placement time Site Days Peripheral IV 02/02/24 20 gauge Anterior;Right Forearm 02/02/24 1519 -- 2 Peripheral IV 02/02/24 20 gauge Anterior;Left Forearm 02/02/242018 -- 2 Peripheral IV 02/02/24 18 gauge;1 3/4 in length Right Antecubital 02/02/242035 -- 2 Rash 02/02/242346 groin 02/02/242346 -- 2 Rash 02/02/24 2348 02/02/242347 -- 2 Wound 02/03/24 Pretibial Left 02/03/24 0104 Pretibial 1 Wound 02/03/24 Pedal Anterior;Right 02/03/24 0636 Pedal 1 Wound 02/03/24 Ulceration Sacrum 02/03/24 1200 Sacrum 1 Urinary Catheter 02/02/24 1714 -- 2 Psychosocial Within Defined Limits * Nursing Assessment - Thu Lowery RN - 02/04/2024 10:17 PM CDT Summary: [id number] Nursing Assessment Head to Toe Head to Toe Assessment Shift Summary Pt is A&OX4 with VSS on RA. Pt has R femur fx (closed) and is on traction to R leg. Pt has largely distended and taut stomach, paracentesis site drained 120 mL yellow fluid this shift from ostomybag. Pt is NPO at 11:59pm for procedure tomorrow. Andrade catheter in place draining mili concentrated urine. Pt reports neuropathy at baseline and CMS is intact to RLE. Nystatin and antifungal cream a pplied to bilateral abdominal/groin folds. Prn oxycodone given for pain 04/13 to RLE. Will continue to monitor and follow POC. Neurologic/Cognitive Within Defined Limits HEENT Assessment Within Defined Limits except for: Teeth Symptoms: Tooth/teeth missing Cardiac Within Defined Limits Respiratory Within defined limits Neurovascular Assessment Within Defined Limits except for: Neurovascular RLE Sensation: Tenderness Edema Present: Yes Right Lower Extremity: 2+ Gastrointestinal Assessment Within Defined Limits except for: Abdominal appearance: Rounded, obese and distended Palpation firm - tender - Bowel Sounds hypoactive - Additional GI Signs/Symptoms: abdominal discomfort and constipation Stool Amount: large (02/04/24 0500) Stool Color: abhi colored (02/04/24 0500) Stool Consistency: liquid (02/04/24 0500) Genitourinary Assessment Within Defined Limits except for: Voiding: Urinary catheter in place Musculoskeletal Assessment Within Defined Limits except for: Musculoskeletal Assessment: General Mobility: Moderately impaired Range of Motion: RLE - moderately impaired Comments: Pt has traction Integumentary Assessment Within Defined Limits except for: Skin Assessment Integrity - excoriation and rashes Integrity Location - abdominal folds Patient Lines/Drains/Airways Status Active LDAs Name Placement date Placement time Site Days Peripheral IV 02/02/24 20 gauge Anterior;Right Forearm 02/02/24 1519 -- 2 Peripheral IV 02/02/24 20 gauge Anterior;Left Forearm 02/02/242018 -- 2 Peripheral IV 02/02/24 18 gauge;1 3/4 in length Right Antecubital 02/02/242035 -- 2 Rash 02/02/24 2347 groin 02/02/24 2347 -- 1 Rash 02/02/24 2348 02/02/24 2348 -- 1 Wound 02/03/24 Pretibial Left 02/03/24 0104 Pretibial 1 Wound 02/03/24 Pedal Anterior;Right 02/03/24 0636 Pedal 1 Wound 02/03/24 Ulceration Sacrum 02/03/24 1200 Sacrum 1 Urinary Catheter 02/02/24 1714 -- 2 Psychosocial Within Defined Limits * Nursing Assessment - Prudence Thomson RN - 02/04/2024 5:40 PM CDT Nursing Assessment Head to Toe Head to Toe Assessment Shift Summary Patient alert and oriented x 4, vitals stable on room air, prn pain medication administered, micro turn completed, boosted patient up in bed. Patient eating and drinking well. Paracentesis site on left lower quadrant draining large amount of yellow fluid, applied ostomy bag over it d/t large drain and draining down in to right groin rash (wound). Emptied greater than 600 ml during this shift. Patient able to let her needs known, will continue to monitor. Neurologic/Cognitive Within Defined Limits HEENT Assessment Within Defined Limits except for: Teeth Symptoms: Tooth/teeth missing Cardiac Within Defined Limits Respiratory Within defined limits Neurovascular Assessment Within Defined Limits except for: Neurovascular RLE Sensation: Tenderness Edema Present: Yes Right Lower Extremity: 2+ Gastrointestinal Assessment Within Defined Limits except for: Abdominal appearance: Rounded, obese and distended Palpation firm - tender - Bowel Sounds hypoactive - Additional GI Signs/Symptoms: abdominal discomfort and constipation Stool Amount: large (02/04/24 0500) Stool Color: abhi colored (02/04/24 0500) Stool Consistency: liquid (02/04/24 0500) Genitourinary Assessment Within Defined Limits except for: Voiding: Urinary catheter in place Musculoskeletal Assessment Within Defined Limits except for: Musculoskeletal Assessment: General Mobility: Moderately impaired Range of Motion: RLE - moderately impaired Comments: Traction. Integumentary Assessment Within Defined Limits except for: Skin Assessment Integrity - excoriation and rashes Patient Lines/Drains/Airways Status Active LDAs Name Placement date Placement time Site Days Peripheral IV 02/02/24 20 gauge Anterior;Right Forearm 02/02/24 1519 -- 2 Peripheral IV 02/02/24 20 gauge Anterior;Left Forearm 02/02/242018 -- 1 Peripheral IV 02/02/24 18 gauge;1 3/4 in length Right Antecubital 02/02/242035 -- 1 Rash 02/02/24 2347 groin 02/02/24 2347 -- 1 Rash 02/02/24 2348 02/02/24 2348 -- 1 Wound 02/03/24 Pretibial Left 02/03/24 0104 Pretibial 1 Wound 02/03/24 Pedal Anterior;Right 02/03/24 0636 Pedal 1 Wound 02/03/24 Ulceration Sacrum 02/03/24 1200 Sacrum 1 Urinary Catheter 02/02/24 1714 -- 2 Psychosocial Within Defined Limits * Nursing Assessment - Prudence Thomson RN - 02/04/2024 12:50 PM CDT Nursing Assessment Head to Toe Head to Toe Assessment Shift Summary Patient alert and oriented x 4, vitals stable on room air. Patient stated having sharp aching pain to her RLE, extremity on traction. Prn pain medication given per order, with good effect. Micro turnand boost up in bed provided d/t patient unable to turn from side to side d/t abdominal discomfort. Patient has been NPO, for OR this evening. Patient abdomen very distended, firm, hypoactive, patient stated don't remember last BM, suppository was given yesterday and had BM. Andrade catheter in placedraining scant dark mili urine. Paracenthesis site on left lower quadrant draining yellow, appliedostomy bag over it d/t large drain and draining down in to right groin rash. Patient skin large excoriated rash abdominal folds, pressure sore coccyx, very difficult to assess d/t distended abdomen, and patient on traction, unable to tolerate to turn, foam dressing applied, MD notified, consult to wound nurse sent. Patient able to let her needs known, will continue to monitor. Neurologic/Cognitive Within Defined Limits HEENT Assessment Within Defined Limits except for: Teeth Symptoms: Tooth/teeth missing Cardiac Within Defined Limits Respiratory Within defined limits Neurovascular Assessment Within Defined Limits except for: Neurovascular RLE Sensation: Tenderness Edema Present: Yes Right Lower Extremity: 2+ Gastrointestinal Assessment Within Defined Limits except for: Abdominal appearance: Rounded, obese and distended Palpation firm - tender - Bowel Sounds hypoactive - Additional GI Signs/Symptoms: abdominal discomfort and constipation Stool Amount: large (02/04/24 0500) Stool Color: abhi colored (02/04/24 0500) Stool Consistency: liquid (02/04/24 0500) Genitourinary Assessment Within Defined Limits except for: Voiding: Urinary catheter in place Musculoskeletal Assessment Within Defined Limits except for: Musculoskeletal Assessment: General Mobility: Moderately impaired Range of Motion: RLE - moderately impaired Comments: Traction. Integumentary Assessment Within Defined Limits except for: Skin Assessment Integrity - excoriation and rashes Patient Lines/Drains/Airways Status Active LDAs Name Placement date Placement time Site Days Peripheral IV 02/02/24 20 gauge Anterior;Right Forearm 02/02/24 1519 -- 1 Peripheral IV 02/02/24 20 gauge Anterior;Left Forearm 02/02/242018 -- 1 Peripheral IV 02/02/24 18 gauge;1 3/4 in length Right Antecubital 02/02/242035 -- 1 Rash 02/02/24 2347 groin 02/02/24 2347 -- 1 Rash 02/02/24 2348 02/02/24 2348 -- 1 Wound 02/03/24 Pretibial Left 02/03/24 0104 Pretibial 1 Wound 02/03/24 Pedal Anterior;Right 02/03/24 0636 Pedal 1 Wound 02/03/24 Ulceration Sacrum 02/03/24 1200 Sacrum 1 Urinary Catheter 02/02/24 1714 -- 1 Psychosocial Within Defined Limits * Interval Note Provider - Kevin Rogers DO - 02/04/2024 3:16 AM CDT SERIAL ABDOMINAL EXAM Cathy Raymond : 1965 Sex: female S: Patient resting. No questions or complaints at this time. Denies discomfort. Denies N/V. Expressed confusion at scheduled procedure today - told that it is with ortho team rather than general surgery and team would likely be by to discuss later in AM. Patient denies significant distension, stating that it is currently as bad a prior. O: BP 93/65 (Cuff Location: Right Arm) Pulse 72 Temp 36.1 ??C (96.9 ??F) (Oral) Resp 18 Ht 1.727 m (5' 8) Wt 98.4 kg (217 lb) SpO2 90% BMI 32.99 kg/m?? General: alert, NAD Pulm: no respiratory distress Abdomen: Significant and increased distension with no tenderness to palpation, remains compressible, no guarding A/P: Cathy Raymond is a 58 y.o. female with possible sigmoid volvulus. - No current indication for urgent surgical intervention - Anticipated surgery in AM, NPO at midnight for surgery - Continue serial exams Kevin Rogers DO, 02/04/2024 6:26 AM General Surgery PGY1 Surgery Cross Cover * Nursing Assessment - Peggy Kirk RN - 02/04/2024 2:45 AM CDT Nursing Assessment Head to Toe Head to Toe Assessment Shift Summary Aox4, RA, took med whole, NPO, exception with sips of water. Has a procedure at 10 am today. Traction on right leg. Skin wound on buttock was covered with Mepilex. Andrade patent and in place. Bowel incontinent, 1 large loose BM this shift. CHG bath done, bed linens changed. Nystatin powder and innerdry between thigh for rash, drainage. Able to use call lights property. Will continue to follow POC. Filed Vitals: 02/04/24 0000 BP: 93/65 Pulse: 72 Resp: Temp: 36.1 ??C (96.9 ??F) Peggy Kirk RN, 02/04/2024 6:11 AM Neurologic/Cognitive Within Defined Limits HEENT Within Defined Limits Cardiac Within Defined Limits Respiratory Within defined limits Neurovascular Within Defined Limits Gastrointestinal Assessment Within Defined Limits except for: Abdominal appearance: Distended Stool Amount: large (02/03/242249) Stool Color: abhi colored (02/03/242249) Stool Consistency: liquid (02/03/242249) Genitourinary Assessment Within Defined Limits except for: Voiding: Urinary catheter in place Musculoskeletal Assessment Within Defined Limits except for: Musculoskeletal Assessment: General Mobility: Mildly impaired and generalized weakness Range of Motion: RLE - brace/immobilizer/splint/sling/cast and moderately impaired Integumentary Assessment Within Defined Limits except for: Skin Assessment Integrity - see Avatar LDA documentation Patient Lines/Drains/Airways Status Active LDAs Name Placement date Placement time Site Days Peripheral IV 02/02/24 20 gauge Anterior;Right Forearm 02/02/24 1519 -- 1 Peripheral IV 02/02/24 20 gauge Anterior;Left Forearm 02/02/242018 -- 1 Peripheral IV 02/02/24 18 gauge;1 3/4 in length Right Antecubital 02/02/242035 -- 1 Rash 02/02/242346 groin 02/02/242346 -- 1 Rash 02/02/24234702/02/24 2348 -- 1 Wound 02/03/24 Pretibial Left 02/03/24 0104 Pretibial 1 Wound 02/03/24 Pedal Anterior;Right 02/03/24 0636 Pedal less than 1 Wound 02/03/24 Ulceration Sacrum 02/03/24 1200 Sacrum less than 1 Urinary Catheter 02/02/24 1714 -- 1 Psychosocial Within Defined Limits * Interval Note Provider - Kevin Rogers DO - 02/03/2024 7:42 PM CDT SERIAL ABDOMINAL EXAM Cathy Raymond : 1965 Sex: female S: Patient alert and awake. Comfortable in bed. Denies pain or discomfort at this time. Does not recall last BM. Denies flatus. States she has noted no more distension than prior. O: BP 93/65 (Cuff Location: Right Arm) Pulse 72 Temp 36.1 ??C (96.9 ??F) (Oral) Resp 18 Ht 1.727 m (5' 8) Wt 98.4 kg (217 lb) SpO2 90% BMI 32.99 kg/m?? General: alert, NAD Pulm: no respiratory distress Abdomen: Significant distension with no tenderness to palpation, compressible, no guarding A/P: Cathy Raymond is a 58 y.o. female with possible sigmoid volvulus. - No current indication for urgent surgical intervention - Anticipated surgery in AM, NPO at midnight for surgery - Continue serial exams Kevin Rogers DO, 02/04/2024 6:17 AM General Surgery PGY1 Surgery Cross Cover * Nursing Assessment - Prudence Thomson RN - 02/03/2024 5:03 PM CDT Nursing Assessment Head to Toe Head to Toe Assessment Shift Summary Patient alert and oriented x 4, vitals stable on room air. Patient stated having sharp aching pain to her RLE, extremity on traction. Prn pain medication given per order, with good effect. Micro turnand boost up in bed provided d/t patient unable to turn from side to side. Patient has been NPO, patient asked if she can eat or not this evening, paged primary. Patient abdomen very distended, firm, hypoactive, patient stated don't remember last BM, but stated she is constipated, bowel medication administered per order. Andrade catheter in place draining mili urine. Patient skin large excoriated rash abdominal folds, pressure sore coccyx, very difficult to assess d/t distended abdomen, and patient on traction, unable to tolerate to turn, foam dressing applied, MD notified, consult to wound nurse sent. Patient able to let her needs known, will continue to monitor. Neurologic/Cognitive Within Defined Limits HEENT Assessment Within Defined Limits except for: Teeth Symptoms: Tooth/teeth missing Cardiac Within Defined Limits Respiratory Within defined limits Neurovascular Assessment Within Defined Limits except for: Neurovascular RLE Sensation: Tenderness Edema Present: Yes Right Lower Extremity: 2+ Gastrointestinal Assessment Within Defined Limits except for: Abdominal appearance: Rounded, obese and distended Palpation firm - tender - Bowel Sounds hypoactive - Additional GI Signs/Symptoms: abdominal discomfort and constipation Genitourinary Assessment Within Defined Limits except for: Voiding: Urinary catheter in place Musculoskeletal Assessment Within Defined Limits except for: Musculoskeletal Assessment: General Mobility: Moderately impaired Range of Motion: RLE - moderately impaired Comments: Traction. Integumentary Assessment Within Defined Limits except for: Skin Assessment Integrity - excoriation and rashes Patient Lines/Drains/Airways Status Active LDAs Name Placement date Placement time Site Days Peripheral IV 02/02/24 20 gauge Anterior;Right Forearm 02/02/24 1519 -- 1 Peripheral IV 02/02/24 20 gauge Anterior;Left Forearm 02/02/24 2019 -- less than 1 Peripheral IV 02/02/24 18 gauge;1 3/4 in length Right Antecubital 02/02/24 2036 -- less than 1 Rash 02/02/24 2347 groin 02/02/24 2347 -- less than 1 Rash 02/02/24 2348 02/02/24 2348 -- less than 1 Wound 02/03/24 Pretibial Left 02/03/24 0104 Pretibial less than 1 Wound 02/03/24 Pedal Anterior;Right 02/03/24 0636 Pedal less than 1 Wound 02/03/24 Ulceration Sacrum 02/03/24 1200 Sacrum less than 1 Urinary Catheter 02/02/24 1714 -- less than 1 Psychosocial Within Defined Limits * Interdisciplinary Note - Carter Maurer APRN, CNP - 02/03/2024 12:38 PM CDT SURGERY PROVIDER NOTE Subjective: Pt denies pain, feels comfortable. Pain is similar when compared to as before (no pain). Objective: BP 109/58 Pulse 75 Temp 36.6 ??C (97.9 ??F) (Oral) Resp 18 Ht 1.727 m (5' 8) Wt 98.4 kg (217 lb) SpO2 100% BMI 32.99 kg/m?? Abdomen: Soft, non-tender, non-distended. No peritoneal signs. Assessment/Plan: Pt's abdomen continues to be benign. N.p.o. Will continue to follow exams No change in plan at this time, therefore no operative indication at this time. Carter Maurer APRN, CNP, 02/03/2024 12:38 PM [facility] Department of Surgery Pager: via telemediq * Nursing Assessment - Chelsi Mehta RN - 02/03/2024 6:35 AM CDT Nursing Assessment Head to Toe Head to Toe Assessment Shift Summary Shift Summary Pt arrived to [facility] from ED AT AROUND 1130 Admitted for Fx of R femur, 20lb A&O4, c/o pain to RLE, 20 lb traction intact to RLE, NWB RLE, NPO for surgery, CPAP at HS, paracentesis done in ED, abdomen large and distended, large rashes noted around abdomen folds, dressing to LLE intact, Upon admission, a Four Eyes Skin Inspection was completed with HCA (Name & Title). Skin injuries were present, and skin breakdown needing further assessment will be added to Avatar. Will implement interventions from Skin INJURY Bundle as appropriate. Pt oriented to room and unit policy, Vital sign done. Will continue to monitor. Neurologic/Cognitive Within Defined Limits HEENT Within Defined Limits Cardiac Within Defined Limits Respiratory Assessment Within Defined Limits except for: Respiratory Assessment: ; CPAP Neurovascular Assessment Within Defined Limits except for: Neurovascular RLE Sensation: Tenderness and sensation decreased Gastrointestinal Assessment Within Defined Limits except for: Abdominal appearance: Rounded and distended Genitourinary Assessment Within Defined Limits except for: Voiding: Urinary catheter in place Musculoskeletal Assessment Within Defined Limits except for: Musculoskeletal Assessment: General Mobility: Mildly impaired Range of Motion: RLE - moderately impaired Integumentary Assessment Within Defined Limits except for: Skin Assessment Moisture - flaky and dry Integrity - see Avatar LDA documentation and rashes Patient Lines/Drains/Airways Status Active LDAs Name Placement date Placement time Site Days Peripheral IV 02/02/24 20 gauge Anterior;Right Forearm 02/02/24 1519 -- less than 1 Peripheral IV 02/02/24 20 gauge Anterior;Left Forearm 02/02/24 2019 -- less than 1 Peripheral IV 02/02/24 18 gauge;1 3/4 in length Right Antecubital 02/02/24 2036 -- less than 1 Rash 02/02/24 2347 groin 02/02/24 2347 -- less than 1 Rash 02/02/24 2348 02/02/24 2348 -- less than 1 Urinary Catheter 02/02/24 1714 -- less than 1 Psychosocial Within Defined Limits * Interval Note Provider - Cooper Loaiza MD - 02/02/2024 10:04 PM CDT PROCEDURES I performed the following procedures: Paracentesis Cooper Loaiza MD, 02/02/2024 10:04 PM * ED Faculty Note - Humphrey Rose MD - 02/02/2024 4:50 PM CDT Images from the original note were not included. ED FACULTY NOTE Name: Cathy Raymond Age: 58 y.o. Gender: female FACULTY ATTESTATION IHumphrey MD, personally saw the patient, performed critical or valencia portions of the service, and discussed the care with the resident. MDM / ED Course Cathy Raymond is a 58 y.o. female with hx cirrhosis and ascites transferred for femur fracture. Patient with mechanical fall today. No head trauma. Obvious R leg deformity. Received pain meds and ancef at OSH(has some cellulitis vs rash of right upper thigh). Significant ascites on exam, no fever to suggest SBP but plan for paracentesis. Ortho consulted. Will admit medicine given significant comorbidities. Problems Addressed 1 acute or chronic illness or injury that poses a threat to life or bodily function Data considered Tests Ordered, Additional tests considered but not ordered, Independent interpretation of studies, and Consultation obtained Risk of patient management Prescription drug management, Decision regarding surgery or procedure, Decision regarding hospitalization, and Parenteral controlled substances IMPRESSION 1. Other fracture of right femur, initial encounter for closed fracture ([facility]) Humphrey Rose MD, 02/02/2024 4:55 PM documented in this encounter Plan of Treatment Upcoming Encounters Date Type Department Care Team (Late st Contact Info) Description 02/18/2024 11:20 AM CDT [facility] [address] [address] Lia Mcclellan PA-C [address] [facility] [address] [place] [address] Other, Urogynecology Physician [address] [place] [address] Scheduled Discharge Disposition: Discharged to home or self care (routine discharge) Pending Results Name Type Priority Associated Diagnoses Date /Time BLOOD AEROBIC/ANAEROBIC CULTURE Microbiology Timed 02/03/2024 12:06 PM CDT BLOOD AEROBIC/ANAEROBIC CULTURE Microbiology Timed 02/03/2024 12:13 PM CDT Sedation Procedures Routine 02/02/2024 8:4 4 PM CDT BLOOD AEROBIC/ANAEROBIC CULTURE Microbiology Routine 02/04/2024 6:44 PM CDT BLOOD AEROBIC/ANAEROBIC CULTURE Microbiology Timed 02/04/2024 6:44 PM CDT ANAEROBE CULTURE Microbiology Routine 2023 10:44 PM CDT documented as of this encounter Procedures The patient is currently admitted. The information in this section might not be complete until the patient is discharged. Procedure Name Priority Date/Time Associated Diagnosis Comments POC GLUCOSE Routine 02/08/2024 12:30 PM CDT IR PARACENTESIS Routine 02/08/2024 11:45 AM CDT PARACENTESIS Routine 02/08/2024 11:14 AM CDT PROTHROMBIN (PT) & INR Routine 8:19 AM CDT PANEL BASIC METABOLIC (BMP) Routine 02/08/2024 8:19 AM CDT PANEL HEPATIC FUNCTION Routine 8:19 AM CDT POC GLUCOSE Routine 02/07/2024 6:41 PM CDT POC GLUCOSE Routine 02/07/2024 12:24 PM CDT PHOSPHORUS Routine 02/07/2024 6:05 AM CDT PANEL BASIC METABOLIC (BMP) Routine 02/07/2024 6:05 AM CDT MAGNESIUM Routine 02/07/2024 6:05 AM CDT PANEL HEPATIC FUNCTION Routine 6:05 AM CDT PC LAB CBC/PLT Routine 02/07/2024 6:05 AM CDT POC GLUCOSE Routine 02/06/2024 6:08 PM CDT POC GLUCOSE Routine 02/06/2024 11:57 AM CDT PROTHROMBIN (PT) & INR Routine 7:10 AM CDT PANEL BASIC METABOLIC (BMP) Routine 02/06/2024 7:10 AM CDT PANEL HEPATIC FUNCTION Routine 7:10 AM CDT HEMOGLOBIN Routine 02/06/2024 7:10 AM CDT POC GLUCOSE Routine 02/06/2024 6:06 AM CDT POC GLUCOSE Routine 02/06/2024 12:09 AM CDT POC GLUCOSE Routine 02/05/2024 3:57 PM CDT XR FEMUR RIGHT AP + LAT* STAT 02/05/2024 3:09 PM CDT XR C ARM OVER 3 HRS STAT 02/05/2024 3 :09 PM CDT FRESH FROZEN PLASMA ADULT (BLOOD ADMIN) Routine 02/05/2024 1:19 PM CDT POC GLUCOSE Routine 02/05/2024 11:21 AM CDT WOUND CULTURE:GRAM STAIN OPTIONAL Routine 02/05/2024 10:00 AM CDT PROTHROMBIN (PT) & INR Routine 9:15 AM CDT PANEL BASIC METABOLIC (BMP) Routine 02/05/2024 9:15 AM CDT PANEL HEPATIC FUNCTION Routine 9:15 AM CDT PC LAB CBC/PLT Routine 02/05/2024 9:15 AM CDT POC GLUCOSE Routine 02/05/2024 6:02 AM CDT POC GLUCOSE Routine 02/04/2024 11:58 PM CDT HELD MICRO SPECIMEN Routine 02/04/2024 1 0:44 PM CDT PC CULTURE,BACTERIAL,DEFI NITIVE,AEROBIC ANY SOURCE Routine 02/04/2024 10:44 PM CDT PC CULTURE SPECIMEN, ANAEROBIC Routine 02/04/2024 10:44 PM CDT POC GLUCOSE Routine 02/04/2024 9:50 PM CDT PC CULTURE,BACTERIAL,DEFI ALEKNAGIK,AEROBIC;BLOOD Timed 02/04/2024 6:44 PM CDT PC CULTURE,BACTERIAL,DEFI ALEKNAGIK,AEROBIC;BLOOD Routine 02/04/2024 6:44 PM CDT POTASSIUM Timed 02/04/2024 1:17 PM CDT PC ANTIBODY SCREEN,RBC,EACH SERUM TECHNIQUE STAT 02/04/2024 1:17 PM CDT TC LAB BLOOD DRAW BY VENIPUNCTURE STAT 02/04/2024 1:17 PM CDT PROTHROMBIN (PT) & INR Routine 6:40 AM CDT PANEL BASIC METABOLIC (BMP) Routine 02/04/2024 6:40 AM CDT PANEL HEPATIC FUNCTION Routine 6:40 AM CDT PC LAB CBC/PLT Routine 02/04/2024 6:40 AM CDT PC CULTURE,BACTERIAL,DEFI ALEKNAGIK,AEROBIC;BLOOD Timed 02/03/2024 12:13 PM CDT PC CULTURE,BACTERIAL,DEFI ALEKNAGIK,AEROBIC;BLOOD Timed 02/03/2024 12:06 PM CDT PC LAB CBC W/DIFF & PLT Routine 02/03/2024 8:03 AM CDT PROTHROMBIN (PT) & INR Routine 8:03 AM CDT PANEL BASIC METABOLIC (BMP) Routine 02/03/2024 8:03 AM CDT PANEL HEPATIC FUNCTION Routine 05/01/202 4 8:[address] RIGHT FEMUR NO [...] TUBE STAT 02/02/2024 5: 00 PM CDT PC TROPONIN QUANTITATIVE STAT 02/02/2024 4:01 PM CDT PC ELECTROLYTES PANEL STAT 02/02/2024 4:01 PM CDT PC LAB CBC W/DIFF & PLT STAT 02/02/2024 4:01 PM CDT PROTHROMBIN (PT) & INR STAT 4:01 PM CDT LIPASE STAT 02/02/2024 4:01 PM CDT PANEL HEPATIC FUNCTION STAT 4:01 PM CDT PC LACTATE (LACTIC ACID) STAT 02/02/2024 4:01 PM CDT PC LAB GLYCOSYLATED HGB Routine 02/02/2024 4:00 PM CDT PC ANTIBODY SCREEN,RBC,EACH SERUM TECHNIQUE STAT 02/02/2024 4:00 PM CDT PC LAB PTT Routine 02/02/2024 4:00 PM CDT PC LAB RH TYPE GEL STAT 02/02/2024 4: 00 PM CDT ED EKG (12-LEAD) Routine 02/02/2024 3:48 PM CDT ED US ABDOMINAL/GALLBLADDER STAT 02/02/2024 3:40 PM CDT documented in this encounter Results * POC GLUCOSE (02/08/2024 12:30 PM CDT) POC Glucose 82 70 - 100 mg/dL [facility] - POINT OF CARE Blood 02/08/2024 12:3 0 PM CDT Humphrey Rose MD LABORATORY [facility] - POINT OF CARE [address] [place] [address], [place] * IR PARACENTESIS (02/08/2024 11:45 AM [...] as above. Reading Radiologist: Coco Buckley Autumn Jerome MD RAD IR * Paracentesis (02/08/2024 [...] to verify the correct patient, procedure, equipment, donor support technician and site/side marked as required. Initial or [...] (PT) & INR (02/08/2024 8:19 AM CDT) PT 29.3(H) 9.0 - 12.5 sec [facility] INR 2.6(H) 0.8 - 1.1 [facility] Comment: Warfarin Therapeutic Range: Standard Intensity: 2.0 - 3.0 High Intensity: 2.5 - 3.5 Blood 02/08/2024 8:19 AM CDT 02/08/2024 8:35 AM CDT Autumn Jerome MD LABORATORY [facility] [address] [address] * (ABNORMAL) PANEL HEPATIC FUNCTION (02/08/2024 8:19 AM CDT) Total Protein 6.1(L) 6.4 - 8.3 g/dL [facility] Albumin 2.5(L) 3.8 - 5.1 g/dL [facility] Bili Total 1.0 <=1.2 mg/dL [facility] Bili Direct 0.5(H) <=0.3 mg/dL [facility] Alk Phos 125(H) 35 - 104 IU/L [facility] Comment:No reference range e stablished for patients <18 years old. ALT (SGPT) 6 <=33 IU/L [facility] AST(SGOT) 30 5 - 40 IU/L [facility] Blood 02/08/2024 8:19 AM CDT 02/08/2024 8:35 AM CDT Autumn Jerome MD LABORATORY Performing Organization Address [facility] Co de Phone Number [facility] [address] [address] * (ABNORMAL) PANEL BASIC METABOLIC (BMP) (02/08/2024 8:19 AM CDT) Pathologist [facility] Sodium 134(L) 135 - 148 mEq/L [facility] Potassium 3.8 3.5 - 5.3 mEq/L [facility] CO2 29 22 - 30 mEq/L [facility] AnGap 5(L) 8 - 16 mEq/L [facility] Glucose 91 70 - 100 mg/dL [facility] BUN 9 6 - 20 mg/dL [facility] Creatinine 0.59 0.50 - 1.00 mg/dL [facility] Chloride 100 92 - 108 mEq/L [facility] Calcium 8.1(L) 8.6 - 10.0 mg/dL [facility] eGFR (2020 CKD-EPI) 104 >=60 ml/min/1.7 3m2 [facility] Comment: The estimated glomerular filtration rate [...] MD LABORATORY Performing Organization Address [facility] Co de Phone Number [facility] [address] [address] * (ABNORMAL) POC GLUCOSE (02/07/2024 6:41 PM CDT) POC Glucose 134(H) 70 - 100 mg/dL [facility] - POINT OF CARE Blood 02/07/2024 6:41 PM CDT Humphrye Rose MD LABORATORY Performing Organization Address City/[facility]/ZIP Co de Phone Number [facility] POINT OF [address] [address], [place] * POC GLUCOSE (02/07/2024 12:24 PM CDT) POC Glucose 99 70 - 100 mg/dL [facility] POINT OF CARE Blood 02/07/2024 12:2 4 PM CDT Humphrey Rose MD LABORATORY Performing Organization Address [facility] Co de Phone Number [facility] POINT OF [address] [address], [place] * PHOSPHORUS (02/07/2024 6:05 AM CDT) Phosphorus 3.2 2.5 - 4.5 mg/dL [facility] Blood 02/07/2024 6:05 AM CDT 02/07/2024 7:28 AM CDT Autumn Jerome MD LABORATORY Performing Organization Address [facility] Co de Phone Number [facility] [address] [address] * MAGNESIUM (02/07/2024 6:05 AM CDT) Magnesium 2.0 1.6 - 2.6 mg/dL [facility] Blood 02/07/2024 6:05 AM CDT 02/07/2024 7:28 AM CDT Autumn Jerome MD LABORATORY Performing Organization Address City/[facility]/ZIP Co de Phone Number [facility] [address] [address] * (ABNORMAL) PANEL HEPATIC FUNCTION (02/07/2024 6:05 AM CDT) Pathologist [facility] Total Protein 5.7(L) 6.4 - 8.3 g/dL [facility] Albumin 2.3(L) 3.8 - 5.1 g/dL [facility] Bili Total 0.9 <=1.2 mg/dL [facility] Bili Direct na <=0.3 mg/dL [facility] Comment:BILID = 0.4. Accurac y of result suspect due to hemolysis. Alk Phos 116(H) 35 - 104 IU/L [facility] Comment:No reference range e stablished for patients <18 years old. ALT (SGPT) 9 <=33 IU/L [facility] AST(SGOT) na 5 - 40 IU/L [facility] Comment:AST = 37. Accuracy o f result suspect due to hemolysis. Blood 02/07/2024 6:05 AM CDT 02/07/2024 7:28 AM CDT Autumn Jerome MD LABORATORY [facility] [address] [address] * (ABNORMAL) CBC WITH PLATELET (02/07/2024 6:05 AM CDT) Pathologist [facility] WBC 9.53 4.00 - 10.00 k/cmm [facility] RBC 3.19(L) 3.90 - 5.20 m/cmm [facility] Hgb 9.5(L) 11.5 - 15.7 g/dL [facility] Hematocrit 29.8(L) 34.0 - 45.0 % [facility] MCV 93.4 80.0 - 100.0 fL [facility] MCH 29.8 25.0 - 32.0 pg [facility] MCHC 31.9 31.0 - 36.0 g/dL [facility] RDW 13.7 11.5 - 14.5 % [facility] Plt 149(L) 150 - 400 k/cmm [facility] MPV 11.1 6.5 - 12.5 fL [facility] NRBC 0.3(H) 0.0 - 0.0 /100WBC [facility] Blood 02/07/2024 6:05 AM CDT 02/07/2024 7:26 AM CDT Autumn Jerome MD LABORATORY Performing Organization Address City/[facility]/ZIP Co de Phone Number [facility] [address] [address] * (ABNORMAL) PANEL BASIC METABOLIC (BMP) (02/07/2024 6:05 AM CDT) CO2 23 22 - 30 mEq/L [facility] AnGap 10 8 - 16 mEq/L [facility] Glucose 87 70 - 100 mg/dL [facility] Creatinine 0.58 0.50 - 1.00 mg/dL [facility] Potassium 5.2 3.5 - 5.3 mEq/L [facility] eGFR (2020 CKD-EPI) 104 >=60 ml/min/1.7 3m2 [facility] Comment: The estimated glomerular filtration rate (eGFR) was calculated using the CKD-EPI 2020 creatinine equation, which does not include race as a factor. This equation is validated in individuals 18 years of age and older, and eGFR is normalized to a body surface area of 1.73m^2. Sodium 135 135 - 148 mEq/L [facility] BUN 11 6 - 20 mg/dL [facility] Calcium 7.9(L) 8.6 - 10.0 mg/dL [facility] Chloride 102 92 - 108 mEq/L [facility] Blood 02/07/2024 6:05 AM CDT 02/07/2024 7:28 AM CDT Autumn Jerome MD LABORATORY Performing Organization Address City/[facility]/ZIP Co de Phone Number [facility] [address] [address] * (ABNORMAL) POC GLUCOSE (02/06/2024 6:08 PM CDT) POC Glucose 124(H) 70 - 100 mg/dL [facility] - POINT OF CARE Blood 02/06/2024 6:08 PM CDT Humphrey Rose MD LABORATORY [facility] POINT OF CARE [address] [place] [address], * POC GLUCOSE (02/06/2024 11:57 AM CDT) Pathologist [facility] POC Glucose 98 70 - 100 mg/dL [facility] POINT [facility] CARE Blood 02/06/2024 11:5 7 AM CDT Humphrey Rose MD LABORATORY [facility] POINT OF CARE [address] [place] [address], * (ABNORMAL) PROTHROMBIN (PT) & INR (02/06/2024 7:10 AM CDT) Pathologist [facility] PT 18.3(H) 9.0 - 12.5 sec [facility] INR 1.6(H) 0.8 - 1.1 [facility] Comment: Warfarin Therapeutic Range: Standard Intensity: 2.0 - 3.0 High Intensity: 2.5 - 3.5 Blood 02/06/2024 7:10 AM CDT 02/06/2024 7:28 AM CDT Autumn Jerome MD LABORATORY Performing Organization Address City/[facility]/ZIP Co de Phone Number [facility] [address] [place] [address] * (ABNORMAL) PANEL HEPATIC FUNCTION (02/06/2024 7:10 AM CDT) Total Protein 5.6(L) 6.4 - 8.3 g/dL [facility] Albumin 2.3(L) 3.8 - 5.1 g/dL [facility] Bili Total 0.8 <=1.2 mg/dL [facility] Bili Direct 0.4(H) <=0.3 mg/dL [facility] Alk Phos 101 35 - 104 IU/L [facility] Comment:No reference range e stablished for patients <18 years old. ALT (SGPT) 12 <=33 IU/L [facility] AST(SGOT) 33 5 - 40 IU/L [facility] Blood 02/06/2024 7:10 AM CDT 02/06/2024 7:28 AM CDT Autumn Jerome MD LABORATORY Performing Organization Address [facility]/ZIP Co de Phone Number [facility] [address] [address] * (ABNORMAL) PANEL BASIC METABOLIC (BMP) (02/06/2024 7:10 AM CDT) CO2 26 22 - 30 mEq/L [facility] AnGap 5(L) 8 - 16 mEq/L [facility] Glucose 105(H) 70 - 100 mg/dL [facility] Creatinine 0.61 0.50 - 1.00 mg/dL [facility] Sodium 135 135 - 148 mEq/L [facility] Potassium 4.4 3.5 - 5.3 mEq/L [facility] eGFR (2020 CKD-EPI) 103 >=60 ml/min/1.7 3m2 [facility] Comment: The estimated glomerular filtration rate (eGFR) was calculated using the CKD-EPI 2020 creatinine equation, which does not include race as a factor. This equation is validated in individuals 18 years of age and older, and eGFR is normalized to a body surface area of 1.73m^2. BUN 11 6 - 20 mg/dL [facility] Calcium 8.1(L) 8.6 - 10.0 mg/dL [facility] Chloride 104 92 - 108 mEq/L [facility] Blood 02/06/2024 7:10 AM CDT 02/06/2024 7:28 AM CDT Lia Mcclellan PA-C LABORATORY Performing Organization Address [facility]/ZIP Co de Phone Number [facility] [address] [address] * (ABNORMAL) HEMOGLOBIN (02/06/2024 7:10 AM CDT) Hgb 8.8(L) 11.5 - 15.7 g/dL [facility] Blood 02/06/2024 7:10 AM CDT 02/06/2024 7:28 AM CDT Lia Mcclellan PA-C LABORATORY [facility] [address] [place] [address] * (ABNORMAL) POC GLUCOSE (02/06/2024 6:06 AM CDT) POC Glucose 119(H) 70 - 100 mg/dL [facility] POINT [facility] CARE Blood 02/06/2024 6:06 AM CDT Humphrey Rose MD LABORATORY Performing Organization Address City/[facility]/ZIP Co de Phone Number [facility] POINT OF [facility] [address] [place] [address], [place] * (ABNORMAL) POC GLUCOSE (02/06/2024 12:09 AM CDT) POC Glucose 102(H) 70 - 100 mg/dL [facility] POINT OF [facility] Blood 02/06/2024 12:0 9 AM CDT Humphrey Rose MD LABORATORY Performing Organization Address [facility] Co de Phone Number [facility] [address] [place] [address], [place] * (ABNORMAL) POC GLUCOSE (02/05/2024 3:57 PM CDT) POC Glucose 112(H) 70 - 100 mg/dL [facility] POINT OF CARE Blood 02/05/2024 3:57 PM CDT Humphrey Rose MD LABORATORY Performing Organization Address City/[facility]/ZIP Co de Phone Number [facility] POINT OF [facility] [address] [place] [address], [place] * XR C ARM OVER 3 HRS (02/05/2024 3:09 PM CDT) Dayo Henning MD RAD FLUORO * XR FEMUR RIGHT AP + LAT* (02/05/2024 3:09 PM CDT) Anatomical Region Laterality Modality Upper Leg Radio Fluoroscop y 02/05/2024 3:44 PM CDT Impressions 02/05/2024 4:16 PM CDT Impression: Spot films and fluoroscopy time provided to the OR. I have personally reviewed the image(s) and initial interpretation, and I agree with the findings as documented by the resident/fellow. Reading Radiologist: Landon Mitchell Reading Resident: Rehan Zapata Narrative 02/05/2024 4:16 PM CDT Technique: XR FEMUR RIGHT AP + LAT* Indication:Right femur krystle placement. Comparison:AP and lateral views of the right femur dated 02/02/2024. Fluoroscopy time:3.2 minutes Dose:10.2 mGy Findings: Fluoroscopy time and spot-film imaging was provided to the OR. Spot images show interval placement of a retrograde intramedullary krystle within the right femur. Alignment at the fracture site has improved. Stable appearance of the TKA components without signs of loosening. No radiologist was present. Procedure Note Landon Mitchell MBBS - 02/05/2024 Technique: XR FEMUR RIGHT AP + LAT* Indication:Right femur krystle placement. Comparison:AP and lateral views of the [...] Zapata Dayo Henning MD RAD XRAY * FRESH FROZEN PLASMA ADULT (BLOOD ADMIN) (02/05/2024 1:19 PM CDT) Unit Number [id number] [facility] Product Code [id number] [facility] Blood Expiration Date [id number] [facility] Blood Type 6200 [facility] Blood Type (TEXT) APOS [facility] Other 02/05/2024 1:19 PM CDT 02/05/2024 1:16 PM CDT Marcus Hanna MD BLOOD BANK ORDERABLE S (BLOOD ADMIN) Performing Organization Address [facility] Co de Phone Number [facility] [address] [address] * POC GLUCOSE (02/05/2024 11:21 AM CDT) POC Glucose 92 70 - 100 mg/dL [facility]INT [facility] CARE Blood 02/05/2024 11:2 1 AM CDT Humphrey oRse MD LABORATORY Performing Organization Address [facility] Co de Phone Number [facility] POINT OF CARE [address] [place] [address] * WOUND CULTURE:GRAM STAIN OPTIONAL (02/05/2024 10:00 AM CDT) Final Report Duplicate order. Patient account credited. [facility] Gram Stain Report Few PMN's seen. No organisms seen. [facility] Swab STRUCTURE OF RIGHT FOOT / Unknown 02/05/2024 10:00 AM CDT 02/05/2024 10:25 AM CDT Narrative [facility] - 02/05/2024 2:53 PM CDT Purulent drainage. Gram Stain please, aerobic, anaerobic Do you want a gram stain: Yes Autumn Jerome MD LAB MICROBIOLOGY Performing Organization Address City/[facility] Co de Phone Number [facility] [address] [address] * (ABNORMAL) PROTHROMBIN (PT) & INR (02/05/2024 9:15 AM CDT) PT 16.9(H) 9.0 - 12.5 sec [facility] INR 1.5(H) 0.8 - 1.1 [facility] Comment: Warfarin Therapeutic Range: Standard Intensity: 2.0 - 3.0 High Intensity: 2.5 - 3.5 Blood 02/05/2024 9:15 AM CDT 02/05/2024 9:43 AM CDT Autumn Jerome MD LABORATORY Performing Organization Address [facility] Co de Phone Number [facility] [address] [address] * (ABNORMAL) PANEL HEPATIC FUNCTION (02/05/2024 9:15 AM CDT) [facility] Total Protein 5.5(L) 6.4 - 8.3 g/dL [facility] Albumin 2.2(L) 3.8 - 5.1 g/dL [facility] Bili Total 0.7 <=1.2 mg/dL [facility] Bili Direct 0.4(H) <=0.3 mg/dL [facility] Alk Phos 101 35 - 104 IU/L [facility] Comment:No reference range e stablished for patients <18 years old. ALT (SGPT) 13 <=33 IU/L [facility] AST(SGOT) 33 5 - 40 IU/L [facility] Blood 02/05/2024 9:15 AM CDT 02/05/2024 9:43 AM CDT Autumn Jerome MD LABORATORY Performing Organization Address [facility] Co de Phone Number [facility] [address] [address] * (ABNORMAL) CBC WITH PLATELET (02/05/2024 9:15 AM CDT) Pathologist [facility] WBC 5.51 4.00 - 10.00 k/cmm [facility] RBC 3.11(L) 3.90 - 5.20 m/cmm [facility] Hgb 9.4(L) 11.5 - 15.7 g/dL [facility] Hematocrit 28.9(L) 34.0 - 45.0 % [facility] MCV 92.9 80.0 - 100.0 fL [facility] MCH 30.2 25.0 - 32.0 pg [facility] MCHC 32.5 31.0 - 36.0 g/dL [facility] RDW 13.4 11.5 - 14.5 % [facility] Plt 164 150 - 400 k/cmm [facility] MPV 10.2 6.5 - 12.5 fL [facility] Blood 02/05/2024 9:15 AM CDT 02/05/2024 9:43 AM CDT Autumn Jerome MD LABORATORY [facility] [address] [address] * (ABNORMAL) PANEL BASIC METABOLIC (BMP) (02/05/2024 9:15 AM CDT) CO2 25 22 - 30 mEq/L [facility] Glucose 112(H) 70 - 100 mg/dL [facility] BUN 12 6 - 20 mg/dL [facility] Creatinine 0.62 0.50 - 1.00 mg/dL [facility] Calcium 7.8(L) 8.6 - 10.0 mg/dL [facility] Sodium 134(L) 135 - 148 mEq/L [facility] Potassium 4.1 3.5 - 5.3 mEq/L [facility] Chloride 102 92 - 108 mEq/L [facility] AnGap 7(L) 8 - 16 mEq/L [facility] eGFR (2020 CKD-EPI) 103 >=60 ml/min/1.7 3m2 [facility] Comment: The estimated glomerular filtration rate (eGFR) was calculated using the CKD-EPI 2020 creatinine equation, which does not include race as a factor. This equation is validated in individuals 18 years of age and older, and eGFR is normalized to a body surface area of 1.73m^2. Blood 02/05/2024 9:15 AM CDT 02/05/2024 9:43 AM CDT Autumn Jerome MD [facility] [facility] [address] [place] [phone] * (ABNORMAL) POC GLUCOSE (02/05/2024 6:02 AM CDT) POC Glucose 106(H) 70 - 100 mg/dL [facility] Blood 02/05/2024 6:02 AM CDT Humphrey Rose MD LABORATORY Performing Organization Address City/[facility]/ZIP Co de Phone Number [facility] POINT OF [facility] [address] [place] [address], * (ABNORMAL) POC GLUCOSE (02/04/2024 11:58 PM CDT) POC Glucose 122(H) 70 - 100 mg/dL [facility] POINT OF CARE Blood 02/04/2024 11:5 8 PM CDT Humphrey Rose MD LABORATORY Performing Organization Address [facility] Co de Phone Number [facility] [place] [address], * (ABNORMAL) WOUND CULTURE:GRAM STAIN OPTIONAL (02/04/2024 10:44 PM CDT) Final Report Moderate Methicillin sensitive Staphylococcus aureus (MSSA) isolated. Methicillin susceptible by PBP2a. Rare Staphylococcus epidermidis isolated. (POS) [facility] Organism METHICILLIN SENSITIVE STAPHYLOCOCCUS AUREUS (MSSA)(POS) [facility] Organism STAPHYLOCOCCUS EPIDERMIDIS(POS) [facility] Gram Stain Report Few PMN's seen. No organisms seen. [facility] Swab STRUCTURE OF RIGHT FOOT / Unknown 02/04/2024 10:44 PM CDT 02/05/2024 9:20 AM CDT Narrative [facility] - 02/07/2024 9:52 AM CDT Do you want a gram stain: Yes Organism Antibiotic Method Susceptibility Methicillin sensitive staphylococcus aureus (mssa) Clindamycin VITEK DAKSHA 0.25: Sensitive Methicillin sensitive staphylococcus aureus (mssa) Erythromycin VITEK DAKSHA <=0.25: Sensitive Methicillin sensitive staphylococcus aureus (mssa) Levofloxacin VITEK DAKSHA <=0.12: Sensitive Methicillin sensitive staphylococcus aureus (mssa) Linezolid VITEK DAKSHA 2: Sensitive Methicillin sensitive staphylococcus aureus (mssa) Oxacillin VITEK DAKSHA 0.5: Sensitive Methicillin sensitive staphylococcus aureus (mssa) Tetracycline VITEK DAKSHA <=1: Sensitive Methicillin sensitive staphylococcus aureus (mssa) Trimethoprim/Sulfamethoxaz ole VITEK DAKSHA <=10: Sensitive Methicillin sensitive staphylococcus aureus (mssa) Vancomycin VITEK DAKSHA 1: Sensitive Autumn Jerome MD LAB MICROBIOLOGY Performing Organization Address City/[facility]/ZIP Co de Phone Number [address] [address] * HELD MICRO SPECIMEN (02/04/2024 10:44 PM CDT) Final Report Microbiology specimen received in lab with no orders. Add-on order must be placed within 24 hours. If no orders placed, specimen will be discarded. [facility] Swab STRUCTURE OF RIGHT FOOT / Unknown 02/04/2024 10:44 PM CDT 02/04/2024 10:45 PM CDT Narrative [facility] - 02/04/2024 10:46 PM CDT Epic message sent to Autumn Jerome at 02/04/2024 22:46:13 CDT by Solitario Mckinnon MLS. Autumn Jerome MD LAB MICROBIOLOGY Performing Organization Address [facility]/ZIP Co de Phone Number [address] [address] * POC GLUCOSE (02/04/2024 9:50 PM CDT) POC Glucose 94 70 - 100 mg/dL [facility] Blood 02/04/2024 9:50 PM CDT Humphrey Rose MD LABORATORY [facility] [address] [place] [id number] [place] [address] * POTASSIUM (02/04/2024 1:17 PM CDT) Potassium 4.3 3.5 - 5.3 mEq/L [facility] Blood 02/04/2024 1:17 PM CDT 02/04/2024 1:33 PM CDT Autumn Jerome MD LABORATORY Performing Organization Address [facility] Co de Phone Number [facility] [address] [address] * ANTIBODY SCREEN (02/04/2024 1:17 PM CDT) Nicky Screen Negative [facility] Blood 02/04/2024 1:17 PM CDT 02/04/2024 1:34 PM CDT Solitario Ha APRN, CRNA LAB TRANSFUSI ON SERVICES Performing Organization Address [facility] Co de Phone Number [facility] [address] [address] * BLOOD TYPING-ABO/RH (02/04/2024 1:17 PM CDT) Pathologist [facility] ABORHG A POS [facility] Blood 02/04/2024 1:17 PM CDT 02/04/2024 1:34 PM CDT Solitario Ha APRN, CRNA LAB TRANSFUSI ON SERVICES Performing Organization Address [facility] de Phone Number [facility] [address] [address] * (ABNORMAL) PROTHROMBIN (PT) & INR (02/04/2024 6:40 AM CDT) Pathologist [facility] PT 16.2(H) 9.0 - 12.5 sec [facility] INR 1.4(H) 0.8 - 1.1 [facility] Comment: Warfarin Therapeutic Range: Standard Intensity: 2.0 - 3.0 High Intensity: 2.5 - 3.5 Blood 02/04/2024 6:40 AM CDT 02/04/2024 8:27 AM CDT Autumn Jerome MD LABORATORY Performing Organization Address [facility] Co de Phone Number [facility] [address] [address] * (ABNORMAL) PANEL HEPATIC FUNCTION (02/04/2024 6:40 AM CDT) Total Protein 5.5(L) 6.4 - 8.3 g/dL [facility] Albumin 2.2(L) 3.8 - 5.1 g/dL [facility] Bili Total 0.8 <=1.2 mg/dL [facility] Bili Direct 0.5(H) <=0.3 mg/dL [facility] Alk Phos 96 35 - 104 IU/L [facility] Comment:No reference range e stablished for patients <18 years old. ALT (SGPT) 15 <=33 IU/L [facility] AST(SGOT) 37 5 - 40 IU/L [facility] Blood 02/04/2024 6:40 AM CDT 02/04/2024 8:27 AM CDT Autumn Jerome MD LABORATORY Performing Organization Address [facility] Co de Phone Number [facility] [address] [address] * (ABNORMAL) CBC WITH PLATELET (02/04/2024 6:40 AM CDT) WBC 4.55 4.00 - 10.00 k/cmm [facility] RBC 3.03(L) 3.90 - 5.20 m/cmm [facility] Hgb 9.2(L) 11.5 - 15.7 g/dL [facility] Hematocrit 28.8(L) 34.0 - 45.0 % [facility] MCV 95.0 80.0 - 100.0 fL [facility] MCH 30.4 25.0 - 32.0 pg [facility] MCHC 31.9 31.0 - 36.0 g/dL [facility] RDW 13.6 11.5 - 14.5 % [facility] Plt 152 150 - 400 k/cmm [facility] MPV 10.9 6.5 - 12.5 fL [facility] Blood 02/04/2024 6:40 AM CDT 02/04/2024 8:27 AM CDT Autumn Jerome MD LABORATORY Performing Organization Address [facility]/ZIP Co de Phone Number [facility] [address] [address] * (ABNORMAL) PANEL BASIC METABOLIC (BMP) (02/04/2024 6:40 AM CDT) CO2 26 22 - 30 mEq/L [facility] Glucose 76 70 - 100 mg/dL [facility] BUN 12 6 - 20 mg/dL [facility] Creatinine 0.64 0.50 - 1.00 mg/dL [facility] Calcium 7.9(L) 8.6 - 10.0 mg/dL [facility] Sodium 136 135 - 148 mEq/L [facility] Potassium 3.4(L) 3.5 - 5.3 mEq/L [facility] Chloride 102 92 - 108 mEq/L [facility] AnGap 8 8 - 16 mEq/L [facility] eGFR (2020 CKD-EPI) 102 >=60 ml/min/1.7 3m2 [facility] Comment: The estimated glomerular filtration rate (eGFR) was calculated using the CKD-EPI 2020 creatinine equation, which does not include race as a factor. This equation is validated in individuals 18 years of age and older, and eGFR is normalized to a body surface area of 1.73m^2. Blood 02/04/2024 6:40 AM CDT 02/04/2024 8:27 AM CDT Autumn Jerome MD LABORATORY Performing Organization Address [facility]/ZIP Co de Phone Number [facility] [address] [address] * (ABNORMAL) PROTHROMBIN (PT) & INR (02/03/2024 8:03 AM CDT) PT 19.8(H) 9.0 - 12.5 sec [facility] INR 1.8(H) 0.8 - 1.1 [facility] Comment: Warfarin Therapeutic Range: Standard Intensity: 2.0 - 3.0 High Intensity: 2.5 - 3.5 Blood 02/03/2024 8:03 AM CDT 02/03/2024 8:48 AM CDT Enedina Austin MD LABORATORY Performing Organization Address [facility] de Phone Number [facility] [address] [address] * (ABNORMAL) PANEL HEPATIC FUNCTION (02/03/2024 8:03 AM CDT) Total Protein 5.5(L) 6.4 - 8.3 g/dL [facility] Albumin 2.2(L) 3.8 - 5.1 g/dL [facility] Bili Total 0.9 <=1.2 mg/dL [facility] Bili Direct 0.5(H) <=0.3 mg/dL [facility] Alk Phos 98 35 - 104 IU/L [facility] Comment:No reference range e stablished for patients <18 years old. ALT (SGPT) 16 <=33 IU/L [facility] AST(SGOT) 36 5 - 40 IU/L [facility] Blood 02/03/2024 8:03 AM CDT 02/03/2024 8:48 AM CDT Enedina Austin MD LABORATORY Performing Organization Address [facility] de Phone Number [facility] [address] [address] * (ABNORMAL) PANEL BASIC METABOLIC (BMP) (02/03/2024 8:03 AM CDT) CO2 25 22 - 30 mEq/L [facility] Glucose 95 70 - 100 mg/dL [facility] BUN 10 6 - 20 mg/dL [facility] Creatinine 0.70 0.50 - 1.00 mg/dL [facility] Calcium 7.5(L) 8.6 - 10.0 mg/dL [facility] Sodium 133(L) 135 - 148 mEq/L [facility] Potassium 3.4(L) 3.5 - 5.3 mEq/L [facility] Chloride 100 92 - 108 mEq/L [facility] AnGap 8 8 - 16 mEq/L [facility] eGFR (2020 CKD-EPI) 100 >=60 ml/min/1.7 3m2 [facility] Comment: The estimated glomerular filtration rate (eGFR) was calculated using the CKD-EPI 2020 creatinine equation, which does not include race as a factor. This equation is validated in individuals 18 years of age and older, and eGFR is normalized to a body surface area of 1.73m^2. Blood 02/03/2024 8:03 AM CDT 02/03/2024 8:48 AM CDT Enedina Austin MD LABORATORY [facility] [address] [address] * (ABNORMAL) CBC WITH PLTS/AUTO DIFF (02/03/2024 8:03 AM CDT) WBC 5.74 4.00 - 10.00 k/cmm [facility] RBC 3.08(L) 3.90 - 5.20 m/cmm [facility] Hgb 9.4(L) 11.5 - 15.7 g/dL [facility] Hematocrit 28.1(L) 34.0 - 45.0 % [facility] MCV 91.2 80.0 - 100.0 fL [facility] MCH 30.5 25.0 - 32.0 pg [facility] MCHC 33.5 31.0 - 36.0 g/dL [facility] RDW 13.6 11.5 - 14.5 % [facility] Plt 155 150 - 400 k/cmm [facility] MPV 10.6 6.5 - 12.5 fL [facility] Automated Abs Neutrophil 4.49 1.70 - 6.50 k/cmm [facility] Comment:Preliminary ANC, Fin al Result to Follow Abs Immature Granulocyte 0.02 0.00 - 0.09 k/cmm [facility] Comment:The Immature Granulo cyte Absolute count contains metamyelocytes and myelocytes. Abs Neutrophil 4.49 1.70 - 6.50 k/cmm [facility] Abs Lymphocyte 0.69(L) 0.80 - 4.00 k/cmm [facility] Abs Monocyte 0.53 0.20 - 1.00 k/cmm [facility] Abs Eosinophil 0.00 0.00 - 0.60 k/cmm [facility] Abs Basophil 0.01 0.00 - 0.20 k/cmm [facility] Blood 02/03/2024 8:03 AM CDT 02/03/2024 8:48 AM CDT Enedina Austin MD LABORATORY [facility] [address] [place] [id number] * CT RIGHT FEMUR NO IV CONTRAST (02/02/2024 10:19 PM CDT) Anatomical Region Laterality Modality Lower Extremity Computed Tomogra phy 02/02/2024 10:1 4 PM CDT Addenda Addendum by Carter Reyes MD on 02/02/2024 10:29 PM CDT ADDENDUM: 3-D reconstructions were created by the sleep lab technologist on the CT scanner and reviewed [...] perforation and infection ??Alternatives discussed: ??No treatment [place] protocol: ??Patient identity confirmed: ??Verbally with patient Pre-procedure details: ??Procedure purpose: diagnostic and therpeutic. ??Preparation: Patient was prepped and draped in usual sterile fashion ?? Anesthesia: ??Anesthesia method: ??Local infiltration ??Local anesthetic: ??Lidocaine 1% w/o epi Procedure details: ??Needle gauge: 15. ??Puncture site: ??R lower quadrant ??Fluid removed amount: ??4 L ??Fluid appearance: ??Mili ??Dressing: ??Adhesive bandage Post-procedure details: ??Procedure completion: [...] 2 V AP/LAT (02/02/2024 9:21 PM CDT) Anatomical Region Laterality Modality Lower [...] MISCELLANEOUS BODY FLUID (02/02/2024 7:51 PM CDT) [facility] Result 1.3 [facility] Units BF g/dL [facility] Comment:The reference interv al(s) and other method performance specifications have not been established for this body fluid. The test result must be integrated into the clinical context for interpretation. Fluid 02/02/2024 7:51 PM CDT 02/02/2024 8:11 PM CDT Narrative [facility] - 02/02/2024 9:01 PM CDT fluid: Peritoneal Test: TP Humphrey Rose MD LABORATORY Performing Organization Address City/[facility]/ZIP Co de Phone Number [facility] [address] [address] * BODY FLUID CULTURE:INCLUDES GRAM STAIN (02/02/2024 7:51 PM CDT) Final Report No growth. [facility] Gram Stain Report PMN's seen. No organisms seen. [facility] Peritoneal Fluid PERITONEUM (SEROUS MEMBRANE) STRUCTURE / Unknown 02/02/2024 7:51 PM CDT 02/02/2024 8:04 PM CDT Humphrey Rose MD LAB MICROBIOLO GY [facility] [address] [address] * BODY FLUID CELL COUNT/DIFF (02/02/2024 7:51 PM CDT) Fluid Type PT Peritoneal [facility] Comment:Normal reference ran ges have not been determined; clinical correlation is recommended. Volume PT Fluid 40 mL [facility] Appearance PT Hazy [facility] Color bf Yellow [facility] Rbc PT Fluid <1,000 cells/ul [facility] Nuc Ct PT Fluid 93 cells/ul [facility] Neutrophil PT Fluid 2 % [facility] Lymphocytes PT Fluid 19 % [facility] Basophil PT Fluid 1 % [facility] MONO/MACS FL 53 % [facility] Other PT Fluid 25 % [facility] Comment:Others are mesotheli al cells. Peritoneal Fluid 02/02/2024 7:51 PM CDT 02/02/2024 7:57 PM CDT Humphrey Rose MD LABORATORY [facility] [address] [address] * CT ABDOMEN/PELVIS W/IV CON (02/02/2024 6:50 [...] mild avascular necrosis Reading Radiologist: Carter Reyes Narrative 02/02/2024 7:09 PM CDT Indication: colonic dilation [...] are unremarkable. Urinary bladder is decompressed by Andrade catheter, there is extensive gas within the [...] Kidneys areunremarkable. Urinary bladder is decompressed by Andrade catheter, there isextensive gas within the urinary [...] XR KNEE RIGHT 2 V AP/LAT (02/02/2024 6:03 PM CDT) Anatomical Region Laterality Modality Lower Extremity Computed Radiogr aphy 02/02/2024 6:30 PM CDT Impressions 02/02/2024 6:31 PM CDT IMPRESSION: Acute significantly displaced periprosthetic fracture of the distal femur. Reading Radiologist: Carter Reyes Narrative 02/02/2024 6:31 PM CDT Indication: fall; leg injury ?? 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 Patella appears diminutive/surgically absent. Acute significantly displaced periprosthetic fracture of the distal femur. 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 Patellaappears diminutive/surgically absent. Acute significantly displacedperiprosthetic fracture of the distal femur. IMPRESSION IMPRESSION: Acute significantly displaced periprosthetic fracture of thedistal femur. Reading Radiologist: Carter Reyes Humphrey Rose MD [...] Humphrey Rose MD RAD XRAY * XR FEMUR RIGHT AP + LAT* (02/02/2024 6:01 PM CDT) Anatomical Region Laterality Modality Upper Leg Computed Radiogr aphy 02/02/2024 6:31 PM CDT Impressions 02/02/2024 6:32 PM CDT IMPRESSION: Acute significantly displaced angulated periprosthetic fracture of the distal femur Reading Radiologist: Carter Reyes Narrative 02/02/2024 6:32 PM CDT Indication: fall; leg deformity ?? Comparison: None FINDINGS: Acute significantly displaced angulated periprosthetic fracture of the distal femur. Partially visualized total near the plasty. Procedure Note Carter Reyes MD - 02/02/2024 Indication: fall; leg deformity Comparison: None FINDINGS: Acute significantly displaced angulated periprosthetic fractureof the distal femur. Partially visualized total near the plasty. IMPRESSION IMPRESSION: Acute significantly displaced angulated periprostheticfracture of the distal femur Reading Radiologist: Carter Reyes Humphrey Rose MD RAD XRAY * (ABNORMAL) URINALYSIS,TOTAL (02/02/2024 5:15 PM CDT) Color YELLOW YELLOW [facility] Appearance CLOUDY(A) CLEAR [facility] Urine Glucose NEGATIVE NEGATIVE mg/dL [facility] Bili UA TRACE(A) NEGATIVE [facility] Ketones TRACE(A) NEGATIVE [facility] Specific [place] 1.024 1.003 - 1.030 [facility] Blood Ur LARGE(A) Neg-Trace [facility] PH Urine 6.0 5.0 - 7.0 [facility] Protein Ur 30(A) Neg-Trace [facility] Urobilinogen >=8(A) NORMAL EU/dL [facility] Nitrite Ur NEGATIVE NEGATIVE [facility] Leuk Est SMALL(A) Neg-Trace [facility] WBC Ur 6-10(A) 0 - 5 perHPF [facility] RBC Ur >20(A) 0 - 3 perHPF [facility] SQ EPITH 0-5 0 - 5 perHPF [facility] Bacteria UA PRESENT [facility] Comment:Presence of bacteria does not necessarily indicate a UTI. The presence of bacteria can indicate a non-clean catch urine specimen. Bacteria should be used in conjunction with other UA results and clinical presentation to assist in diagnosing an infection. Urinalysis Performed at: [facility] Urine 02/02/2024 5:15 PM CDT 02/02/2024 5:18 PM CDT Humphrey Rose MD LABORATORY Performing Organization Address [facility] de Phone Number [address] [address] * (ABNORMAL) URINE CULTURE (02/02/2024 5:03 PM CDT) [facility] Urine Cult Greater than 100,000 organisms/ml Escherichia coli isolated.(POS) [facility] Organism ESCHERICHIA COLI(POS) [facility] Urine 02/02/2024 5:03 PM CDT 02/02/2024 [...] MICROBIOLO GY Performing Organization Address [facility] Co de Phone Number [facility] [address] [address] * PRECAUTIONARY TUBE (02/02/2024 5:00 PM CDT) Prec Tube Precautionary Blood Bank Specimen Received. [facility] Blood 02/02/2024 5:00 PM CDT 02/02/2024 5:11 PM CDT [place] MD LAB TRANSFUSION SERV ICES Performing Organization Address [facility] Co de Phone Number [facility] [address] [address] * LIPASE (02/02/2024 4:01 PM CDT) Pathologist [facility] Lipase 13 13 - 60 IU/L [facility] Blood 02/02/2024 4:01 PM CDT 02/02/2024 7:02 PM CDT Humphrey Rose MD LABORATORY Performing Organization Address [facility] Co de Phone Number [facility] [address] [address] * (ABNORMAL) PANEL HEPATIC FUNCTION (02/02/2024 4:01 PM CDT) Pathologist [facility] Total Protein 5.8(L) 6.4 - 8.3 g/dL [facility] Albumin 2.4(L) 3.8 - 5.1 g/dL [facility] Bili Total 1.1 <=1.2 mg/dL [facility] Bili Direct 0.5(H) <=0.3 mg/dL [facility] Alk Phos 107(H) 35 - 104 IU/L [facility] Comment:No reference range e stablished for patients <18 years old. ALT (SGPT) 19 <=33 IU/L [facility] AST(SGOT) 39 5 - 40 IU/L [facility] Blood 02/02/2024 4:01 PM CDT 02/02/2024 7:02 PM CDT Humphrey Rose MD LABORATORY Performing Organization Address City/[facility]/ZIP Co de Phone Number [facility] [address] [address] * LACTATE (LACTIC ACID) (02/02/2024 4:01 PM CDT) Lactate 1.1 0.7 - 2.1 mmol/L [facility] Blood 02/02/2024 4:01 PM CDT 02/02/2024 4:15 PM CDT Narrative [facility] - 02/02/2024 4:15 PM CDT Send specimen on ice! Humphrey Rose MD LABORATORY [address] [address] * (ABNORMAL) PROTHROMBIN (PT) & INR (02/02/2024 4:01 PM CDT) Pathologist [facility] PT 18.0(H) 9.0 - 12.5 sec [facility] INR 1.6(H) 0.8 - 1.1 [facility] Comment: Warfarin Therapeutic Range: Standard Intensity: 2.0 - 3.0 High Intensity: 2.5 - 3.5 Blood 02/02/2024 4:01 PM CDT 02/02/2024 4:38 PM CDT Humphrey Rose MD LABORATORY [facility] [address] [address] * HS TROPONIN (02/02/2024 4:01 PM CDT) HS Troponin I <3 <=14 ng/L [facility] Blood 02/02/2024 4:01 PM CDT 02/02/2024 4:36 PM CDT Narrative [facility] - 02/02/2024 5:10 PM CDT If ordering as an add-on lab, you must call the lab. Humphrey Rsoe MD LABORATORY [facility] [address] [address] * (ABNORMAL) CBC WITH PLTS/AUTO DIFF (02/02/2024 4:01 PM CDT) WBC 7.34 4.00 - 10.00 k/cmm [facility] RBC 3.08(L) 3.90 - 5.20 m/cmm [facility] Hgb 9.3(L) 11.5 - 15.7 g/dL [facility] Hematocrit 28.5(L) 34.0 - 45.0 % [facility] MCV 92.5 80.0 - 100.0 fL [facility] MCH 30.2 25.0 - 32.0 pg [facility] MCHC 32.6 31.0 - 36.0 g/dL [facility] RDW 13.5 11.5 - 14.5 % [facility] Plt 176 150 - 400 k/cmm [facility] MPV 10.2 6.5 - 12.5 fL [facility] Automated Abs Neutrophil 5.98 1.70 - 6.50 k/cmm [facility] Comment:Preliminary ANC, Fin al Result to Follow Abs Immature Granulocyte 0.03 0.00 - 0.09 k/cmm [facility] Comment:The Immature Granulo cyte Absolute count contains metamyelocytes and myelocytes. Abs Neutrophil 5.98 1.70 - 6.50 k/cmm [facility] Abs Lymphocyte 0.80 0.80 - 4.00 k/cmm [facility] Abs Monocyte 0.52 0.20 - 1.00 k/cmm [facility] Abs Eosinophil 0.00 0.00 - 0.60 k/cmm [facility] Abs Basophil 0.01 0.00 - 0.20 k/cmm [facility] Blood 02/02/2024 4:01 PM CDT 02/02/2024 4:36 PM CDT Humphrey Rsoe MD LABORATORY [facility] [address] [place] [address] * (ABNORMAL) ED CHEMISTRY LABS(NA,K,CL,CO2,GLU,CREAT,CA-IONIZED,ANION GAP) (02/02/2024 4:01 PM CDT) Sodium 135 135 - 148 mEq/L [facility] Chloride 100 92 - 108 mEq/L [facility] AnGap 9 8 - 16 mEq/L [facility] Glucose 105(H) 70 - 100 mg/dL [facility] ICA, Actual 4.21(L) 4.40 - 5.20 mg/dL [facility] ICA, pH Corrected 4.45 4.40 - 5.20 mg/dL [facility] Creatinine 0.72 0.50 - 1.00 mg/dL [facility] BICARB 26 22 - 26 mEq/L [facility] eGFR (2020 CKD-EPI) 96 >=60 ml/min/1.7 3m2 [facility] Comment: The estimated glomerular filtration rate (eGFR) was calculated using the CKD-EPI 2020 creatinine equation, which does not include race as a factor. This equation is validated in individuals 18 years of age and older, and eGFR is normalized to a body surface area of 1.73m^2. Potassium 3.5 3.5 - 5.3 mEq/L [facility] Blood 02/02/2024 4:01 PM CDT 02/02/2024 4:15 PM CDT Humphrey Rose MD LABORATORY [facility] [address] [address] * GLYCOSYLATED HGB - A1C (02/02/2024 4:00 PM CDT) Pathologist [facility] Hemoglobin A1C 4.4 4.0 - 5.6 % [facility] Comment: Increased risk for diabetes (prediabetes): 5.7-6.4% Diabetes >=6.5% In the absence of unequivocal hyperglycemia, diagnosis requires two abnormal test results (i.e. HbA1c and glucose) or two abnormal results from specimens collected at two different timepoints. The presence of some hemoglobin variants or red cell disorders may interfere with the measurement of hemoglobin A1c (HbA1c). Estimated Average Glucose 80 68 - 114 [facility] Comment: The estimated Average Glucose (eAG) was calculated using an equation derived from a study of 507 adults with type 1, type 2, or no diabetes. Minority populations were underrepresented and children were not included. The eAG is not equivalent to a fasting glucose concentration. Blood 02/02/2024 4:00 PM CDT 02/02/2024 11:05 PM CDT Enedina Austin MD LABORATORY Performing Organization Address [facility] de Phone Number [address] [address] * ANTIBODY SCREEN (02/02/2024 4:00 PM CDT) Nicky Screen Negative [facility] Blood 02/02/2024 4:00 PM CDT 02/02/2024 10:16 PM CDT Ileana Howell APRN, CNP LAB TRANSF[employer] Performing Organization Address [facility] de Phone Number [address] [address] * BLOOD TYPING-ABO/RH (02/02/2024 4:00 PM CDT) ABORHG A POS [facility] Blood 02/02/2024 4:00 PM CDT 02/02/2024 10:16 PM CDT Ileana Howell APRN, CNP LAB TRANSF[employer] SERVICES Performing Organization Address [facility] de Phone Number [facility] [address] [address] * PTT (APTT) (02/02/2024 4:00 PM CDT) APTT 33.0 25.0 - 37.0 sec [facility] Blood 02/02/2024 4:00 PM CDT 02/02/2024 5:57 PM CDT Enedina Austin MD LABORATORY Performing Organization Address [facility] de Phone Number [facility] [address] [address] * ED EKG (12-LEAD) (02/02/2024 3:48 PM CDT) 02/02/2024 3:48 PM CDT Impressions [facility] CVIS EKG ORDERS - 02/02/2024 3:48 PM CDT SINUS RHYTHM LOW QRS VOLTAGE IN EXTREMITY LEADS ??[QRS DEFLECTION < 0.5 mV IN LIMB LEADS] POSSIBLE ANTERIOR MYOCARDIAL INFARCTION , PROBABLY OLD [30 ms Q WAVE IN V3/V4, OR R < 0.2 mV IN V4] BORDERLINE ECG P-R Interval 184 ms QRS Interval 78 ms QT Interval 365 ms QTC Interval 414 ms P [place] -12 QRS [place] -1 T Wave [place] -1 Narrative Procedure Note Lyndon Villanueva MD - 02/02/2024 IMPRESSION SINUS RHYTHM LOW QRS VOLTAGE IN EXTREMITY LEADS [QRS DEFLECTION < 0.5 mV IN LIMBLEADS] POSSIBLE ANTERIOR MYOCARDIAL INFARCTION , PROBABLY OLD [30 ms Q WAVE INV3/V4, OR R < 0.2 mV IN V4] BORDERLINE ECG P-R Interval 184 ms QRS Interval 78 ms QT Interval 365 ms QTC Interval 414 ms P [place] -12 QRS [place] -1 T Wave [place] -1 Humphrey Rose MD EKG [facility] CVIS EKG ORDERS * ED US ABDOMINAL/GALLBLADDER (02/02/2024 3:40 PM CDT) Anatomical Region Laterality Modality Ultrasound Narrative 02/02/2024 4:30 PM CDT ED Abdomen/Gallbladder Ultrasound Indications: Abdominal pain Window: Longitudinal and Transverse Findings: No gall stones identified Diffuse Ascites Impression: ??No gallstones, negative sonographic tobin sign, ascites Humphrey Rose MD, 02/02/2024 4:30 PM Humphrey Rose MD RAD ED ULT documented in this encounter Visit Diagnoses Diagnosis Other fracture of right femur, initial encounter for closed fracture (CMS)- Primary Other fracture of right femur, initial encounter for closed fracture (CMS) Acute cystitis with hematuria Acute cystitis Femur fracture, right (CMS) Closed fracture of unspecified part of femur documented in this encounter Administered Medications Active Administered Medications - up to 3 most recent administrations Medication Order MAR Action Action Date Dose Rate Site acetaminophen (TYLENOL) tablet 325 mg 325 mg, Oral, Q6H, First dose (after last modification) on Thu02/03/24 at 0600, Until Discontinued Given 02/08/2024 12:56 PM CDT 325 mg Given 02/08/2024 12:51 AM CDT 325 mg Given 02/07/2024 6:46 PM CDT 325 mg bisacodyl (DULCOLAX) suppository 10 mg 10 mg, Rectal, DAILY, First dose on Thu02/03/24 at 1520, Until Discontinued Given 02/04/2024 5:22 PM CDT 10 mg Given 02/03/2024 4:43 PM CDT 10 mg carboxymethylcellulose sod PF solution 1 drop 1 drop, eye BOTH, TID, First dose on Thu02/02/24 at 2205, Until Discontinued Given 02/08/2024 1:04 PM CDT 1 drop Given 02/08/2024 8:44 AM CDT 1 drop Given 02/07/2024 8:04 PM CDT 1 drop ceFAZolin (ANCEF) IVPB 2 g 2 g, Indication (Select One): Infection - Confirmed, SITE (Select all that apply): Bloodstream, Genitourinary, Cultures Ordered? Yes, Intravenous, Q 8H, First dose on Thu02/05/24 at 1730, Until Discontinued New Bag 02/08/2024 1:04 PM CDT 2 g 200 mL/hr New Bag 02/08/2024 1:59 AM CDT 2 g 200 mL/hr New Bag 02/07/2024 5:25 PM CDT 2 g 200 mL/hr citalopram (CeleXA) tablet 20 mg 20 mg, Oral, DAILY, First dose on Thu02/03/24 at 0800, Until Discontinued Given 02/08/2024 8:43 AM CDT 20 mg Given 02/07/2024 8:57 AM CDT 20 mg Given 02/06/2024 7:30 AM CDT 20 mg clotrimazole (LOTRIMIN) 1% cream Apply to: abdominal skin folds For External Use Only., Topical, BID, First dose on Thu02/04/24 at 2000, Until Discontinued Given 02/07/2024 7:49 PM CDT Given 02/07/2024 8:59 AM CDT Given 02/06/2024 8:36 PM CDT furosemide (LASIX) tablet 20 mg 20 mg, Oral, DAILY, First dose on Thu02/07/24 at 1455, Until Discontinued Given 02/08/2024 8:44 AM CDT 20 mg Given 02/07/2024 5:09 PM CDT 20 mg GABApentin (NEURONTIN) tablet 600 mg 600 mg, Oral, TID, First dose (after last modification) on Thu02/03/24 at 0800, Until Discontinued Given 02/08/2024 12:56 PM CDT 600 mg Given 02/08/2024 8:44 AM CDT 600 mg Given 02/07/2024 7:48 PM CDT 600 mg levothyroxine (SYNTHROID) tablet 50 mcg 50 mcg, Oral, DAILY BEFORE AM MEAL, First dose on Thu02/03/24 at 0730, Until Discontinued Given 02/08/2024 6:52 AM CDT 50 mcg Given 02/07/2024 8:57 AM CDT 50 mcg Given 02/06/2024 7:30 AM CDT 50 mcg nystatin 941205 unit/g powder Topical, BID, First dose on Thu02/03/24 at 1800, Until Discontinued Given 02/08/2024 8:58 AM CDT Given 02/07/2024 7:49 PM CDT Given 02/07/2024 8:59 AM CDT oxyCODONE (ROXICODONE) tablet 5-10 mg 5-10 mg, Oral, Q4H PRN, Starting on Thu02/02/24 at 2254, Until Discontinued, Moderate Pain (Use First), Severe Pain (Use First), 5 mg for moderate pain (4-7), 10 for severe pain (7-10) Given 02/08/2024 12:56 PM CDT 10 mg Given 02/08/2024 6:52 AM CDT 10 mg Given 02/08/2024 12:50 AM CDT 10 mg pantoprazole (PROTONIX) tablet 40 mg 40 mg, Oral, DAILY BEFORE AM MEAL, First dose on Thu02/03/24 at 0730, Until Discontinued Given 02/08/2024 6:52 AM CDT 40 mg Given 02/07/2024 8:58 AM CDT 40 mg Given 02/06/2024 7:31 AM CDT 40 mg polyethylene glycol 3350 (MIRALAX;GLYCOLAX) packet 17 g 17 g, Oral, DAILY, First dose on Thu02/03/24 at 0800, Until Discontinued Given 02/08/2024 8:43 AM CDT 17 g Given 02/07/2024 8:57 AM CDT 17 g Given 02/06/2024 7:30 AM CDT 17 g pramipexole (MIRAPEX) tablet 0.5 mg 0.5 mg, Oral, BID, First dose on Thu02/03/24 at 0800, Until Discontinued Given 02/08/2024 8:43 AM CDT 0.5 mg Given 02/07/2024 7:48 PM CDT 0.5 mg Given 02/07/2024 8:58 AM CDT 0.5 mg spironolactone (ALDACTONE) tablet 50 mg 50 mg, Oral, DAILY, First dose on Thu02/07/24 at 1455, Until Discontinued Given 02/08/2024 8:43 AM CDT 50 mg Given 02/07/2024 5:09 PM CDT 50 mg thiamine (VITAMIN B1) tablet 100 mg 100 mg, Oral, DAILY, First dose on Thu02/03/24 at 0800, Until Discontinued Given 02/08/2024 8:44 AM CDT 100 mg Given 02/07/2024 8:58 AM CDT 100 mg Given 02/06/2024 7:31 AM CDT 100 mg traZODone (DESYREL) tablet 100 mg 100 mg, Oral, BEDTIME, First dose on Thu02/03/24 at 2000, Until Discontinued Given 02/03/2024 8:42 PM CDT 100 mg Inactive Administered Medications - up to 3 most recent administrations Medication Order MAR Action Action Date Dose Rate Site vancomycin (VANCOCIN) injection INTRA-OP ONCE PRN, Starting on Thu02/05/24 at 1503, Until Thu02/05/24 at 1551 Given 02/05/2024 3:03 PM CDT 1,000 mg Incision documented in this encounter Active and Recently Administered Medications Times are shown in CDT. Scheduled Medication Order 02/06/2024 02/07/2024 02/08/2024 acetaminophen (TYLENOL) tablet 325 mg 325 mg, Oral, Q6H, First dose (after last modification) on Thu02/03/24 at 0600, Until Discontinued 0003 (Not Given (removes Due time) - Provider: Allie Alexandra RN - Reason: Patient sleeping)0601 (Not Given (removes Due time) - Provider: Allie Alexandra RN - Reason: Patient sleeping)1135 (Given - Provider: Nino Simpson RN)1757 (Given - Provider: Nino Simpson RN) 0054 (Not Given (removes Due time) - Provider: Allei Alexandra RN - Reason: Patient sleeping)0548 (Given - Provider: Allie Alexandra RN)1159 (Given - Provider: Humphrey Nagel, GEOFF)1846 (Given - Provider: Humphrey Nagel RN) 0051 (Given - Provider: Allie Alexandra RN)0617 (Not Given (removes Due time) - Provider: Allie Alexandra RN - Reason: Patient sleeping)1256 (Given - Provider: Gabrielle Manning RN)1800 (Due) bisacodyl (DULCOLAX) suppository 10 mg 10 mg, Rectal, DAILY, First dose on Thu02/03/24 at 1520, Until Discontinued 0731 (Delayed (keeps Due time) - Provider: Nino Simpson RN - Reason: Other (must enter a comment) - Comment: pt requests later) 0859 (Not Given (removes Due time) - Provider: Humphrey Nagel RN - Reason: Patient refused) 0844 (Not Given (removes Due time) - Provider: Gabrielle Manning RN - Reason: Patient refused) carboxymethylcellulose sod PF solution 1 drop 1 drop, eye BOTH, TID, First dose on Thu02/02/24 at 2205, Until Discontinued 0731 (Given - Provider: Nino Simpson RN)1343 (Given - Provider: Nino Simpson, GEOFF)2036 (Given - Provider: Allie Alexandra RN) 0859 (Given - Provider: Humphrey Nagel RN)1549 (Given - Provider: Allie Alexandra RN)2003 (Given - Provider: Allie Alexandra RN) 0844 (Given - Provider: Gabrielle Manning RN)1304 (Given - Provider: Gabrielle Manning RN)1999 (Due) ceFAZolin (ANCEF) IVPB 2 g 2 g, Indication (Select One): Infection - Confirmed, SITE (Select all that apply): Bloodstream, Genitourinary, Cultures Ordered? Yes, Intravenous, Q 8H, First dose on Thu02/05/24 at 1730, Until Discontinued 0207 (New Bag - Provider: Allie Alexandra RN)0310 (Infusion completed - Provider: Allie Alexandra RN)1031 (New Bag - Provider: Nino Simpson RN)1135 (Infusion completed - Provider: Nino Simpson RN)1757 (New Bag - Provider: Nino Simpson, GEOFF)1837 (Infusion completed - Provider: Nino Simpson RN) 0211 (New Bag - Provider: Allie Alexandra RN)0241 (Infusion completed - Provider: Allie Alexandra RN)1042 (New Bag - Provider: Humphrey Nagel RN)1154 (Infusion completed - Provider: Humphrey Nagel, GEOFF)1725 (New Bag - Provider: Humphrey Nagel, GEOFF)1949 (Infusion completed - Provider: Allie Alexandra RN) 0159 (New Bag - Provider: Allie Alexandra RN)0240 (Infusion completed - Provider: Allie Alexandra RN)1304 (New Bag - Provider: Gabrielle Manning RN)1340 (Infusion completed - Provider: Gabrielle Manning, GEOFF)1999 (Due - Provider: Gabrielle Manning, GEOFF) citalopram (CeleXA) tablet 20 mg 20 mg, Oral, DAILY, First dose on Thu02/03/24 at 0800, Until Discontinued 0730 (Given - Provider: Nino Simpson RN) 0857 (Given - Provider: Humphrey Nagel RN) 0843 (Given - Provider: Gabrielle Manning RN) clotrimazole (LOTRIMIN) 1% cream Apply to: abdominal skin folds For External Use Only., Topical, BID, First dose on Ceci 02/04/24 at 2000, Until Discontinued 07 (Given - Provider: Nino Simpson RN)2035 (Given - Provider: Allie Alexandra RN) 0859 (Given - Provider: Humphrey Nagel RN)194 (Given - Provider: Allie Alexandra RN) 0858 (Not Given (removes Due time) - Provider: Gabrielle Manning RN - Reason: Held per nurse)1999 (Due) enoxaparin (LOVENOX) 40 mg/0.4 mL injection 40 mg (CANCELED) 40 mg, Subcutaneous, DAILY, First dose on Thu02/06/24 at 0800, Until Discontinued 07 (Given - Provider: Nino Simpson RN) 0857 (Given - Provider: Humphrey Nagel RN) 0858 (Not Given (removes Due time) - Provider: Gabrielle Manning RN - Reason: Discontinued per order) furosemide (LASIX) tablet 20 mg 20 mg, Oral, DAILY, First dose on Thu02/07/24 at 1455, Until Discontinued 170 (Given - Provider: Humphrey Nagel RN) 0844 (Given - Provider: Gabrielle Manning RN) GABApentin (NEURONTIN) tablet 600 mg 600 mg, Oral, TID, First dose (after last modification) on Thu02/03/24 at 0800, Until Discontinued 0731 (Given - Provider: Nino Simpson RN)1342 (Given - Provider: Nino Simpsno RN)2034 (Given - Provider: Allie Alexandra RN) 0858 (Given - Provider: Humphrey Nagel RN)170 (Given - Provider: Humphrey Ngael RN)194 (Given - Provider: Allie Alexandra RN) 0844 (Given - Provider: Gabrielle Manning RN)1256 (Given - Provider: Gabrielle Manning RN)1999 (Due) levothyroxine (SYNTHROID) tablet 50 mcg 50 mcg, Oral, DAILY BEFORE AM MEAL, First dose on Thu02/03/24 at 0730, Until Discontinued 0730 (Given - Provider: Nino Simpson RN) 0857 (Given - Provider: Humphrey Nagel RN) 0652 (Given - Provider: Allie Alexandra RN) nystatin 138447 unit/g powder Topical, BID, First dose on Thu02/03/24 at 1800, Until Discontinued 30 (Given - Provider: Nino Simpson RN)2035 (Given - Provider: Allie Alexandra RN) 0859 (Given - Provider: Humphrey Nagel RN)1948 (Given - Provider: Allie Alexandra RN) 0858 (Given - Provider: Gabrielle Manning RN)1999 (Due) pantoprazole (PROTONIX) tablet 40 mg 40 mg, Oral, DAILY BEFORE AM MEAL, First dose on Thu02/03/24 at 0730, Until Discontinued 730 (Given - Provider: Nino Simpson RN) 0858 (Given - Provider: Humphrey Nagel RN) 0652 (Given - Provider: Allie Alexandra RN) polyethylene glycol 3350 (MIRALAX;GLYCOLAX) packet 17 g 17 g, Oral, DAILY, First dose on Thu02/03/24 at 0800, Until Discontinued 30 (Given - Provider: Nino Simpson RN) 0857 (Given - Provider: Humphrey Nagel RN) 0843 (Given - Provider: Gabrielle Manning RN) pramipexole (MIRAPEX) tablet 0.5 mg 0.5 mg, Oral, BID, First dose on Thu02/03/24 at 0800, Until Discontinued 31 (Given - Provider: Nino Simpson RN)2034 (Given - Provider: Allie Alexandra RN) 0858 (Given - Provider: Humphrey Nagel RN)1947 (Given - Provider: Allie Alexandra RN) 0843 (Given - Provider: Gabrielle Manning RN)1999 (Due) spironolactone (ALDACTONE) tablet 50 mg 50 mg, Oral, DAILY, First dose on Thu02/07/24 at 1455, Until Discontinued 1708 (Given - Provider: Humphrey Nagel RN) 0843 (Given - Provider: Gabrielle Manning RN) thiamine (VITAMIN B1) tablet 100 mg 100 mg, Oral, DAILY, First dose on Thu02/03/24 at 0800, Until Discontinued 0731 (Given - Provider: Nino Simpson RN) 0858 (Given - Provider: Humphrey Nagel, GEOFF) 0844 (Given - Provider: Gabrielle Manning RN) traZODone (DESYREL) tablet 100 mg 100 mg, Oral, BEDTIME, First dose on Thu02/03/24 at 2000, Until Discontinued 2036 (Not Given (removes Due time) - Provider: Allie Alexandra RN - Reason: Patient refused) 1948 (Not Given (removes Due time) - Provider: Allie Alexandra RN - Reason: Patient refused) 1999 (Due) PRN Medication Order 02/06/2024 02/07/2024 02/08/2024 albumin (human) (HUMAN ALBUMIN GRIFOLS) 25% injection 6.25 g (CANCELED) 6.25 g, Intravenous, Q20 MIN PRN, Starting on Thu02/08/24 at 1114, Until Thu02/08/24 at 1147, Per Paracentesis protocol 1122 (New Bag - Provider: Jesse Pineda RN)1128 (Infusion completed - Provider: Jesse Pineda RN)1130 (New Bag - Provider: Jesse Pineda RN)1146 (Infusion completed - Provider: Jesse Pineda RN) bisacodyl (DULCOLAX) suppository 10 mg 10 mg, Rectal, DAILY PRN, Starting on Thu02/02/24 at 2203, Until Discontinued, Constipation (Use First) HYDROmorphone PF (DILAUDID) 1 mg/mL injection 0.5 mg (CANCELED) 0.5 mg, IV Push, Q4H PRN, Starting on Thu02/02/24 at 2254, Until Thu02/08/24 at 0919, Severe Pain (Use Second) , breakthrough pain after PO oxycodone 0229 (Given - Provider: Allie Alexandra RN)110 (Given - Provider: Nino Simpson RN)2036 (Given - Provider: Allie Alexandra RN) 0858 (Given - Provider: Humphrey Nagel, GEOFF) oxyCODONE (ROXICODONE) tablet 5-10 mg 5-10 mg, Oral, Q4H PRN, Starting on Thu02/02/24 at 2254, Until Discontinued, Moderate Pain (Use First), Severe Pain (Use First), 5 mg for moderate pain (4-7), 10 for severe pain (7-10) 0213 (Given - Provider: Allie Alexandra RN)0731 (Given - Provider: Nino Simpson RN)1342 (Given - Provider: Nino Simpson, GEOFF)1757 (Given - Provider: Nino Simpson, GEOFF) 0548 (Given - Provider: Allie Alexandra RN)1159 (Given - Provider: Humphrey Nagel, GEOFF)1708 (Given - Provider: Humphrey Nagel, GEOFF) 0050 (Given - Provider: Allie Alexandra RN)0652 (Given - Provider: Allie Alexandra RN)1256 (Given - Provider: Gabrielle Manning RN)1705 (Due) documented in this encounter
--- OUTSIDE RECORDS SUMMARY | 2024-02-08 17:15 | XMS_ITS | Encounter Summary ---
Author Name Unknown Organization [facility] [place][Note 2] Address [address] [place] [address] Phone Care Team Providers Care [employer] Worker Name Role Phone Unavailable Primary Care Provider Unavailabl e Encounter Details Date Type Department Care Team (Late st Contact Info) Description 02/02/2024 Orders Only [facility] [address] [place], [place] [address] Provider, [place] [address] Social History Tobacco Use Types Packs/Day Years [...] [facility] [address] [address] Lia Mcclellan PA-C [address] [facility] [address] [place] [address] Other, [employer] [address] [place] [address] Scheduled Discharge Disposition: Discharged to home or self care (routine discharge) documented as of this encounter Visit Diagnoses Not on filedocumented in this encounter
--- OUTSIDE RECORDS SUMMARY | 2024-02-08 17:15 | XMS_ITS | Encounter Summary ---
Author Name Unknown Organization [facility] Address [address] [place] [address] Phone Care Team Providers Care Hand Paint Mixer Name Role Phone Unavailable Primary Care Provider Unavailabl e Reason for Visit * Reason Comments Leg Deformity * Auth/Cert (Routine) Specialty Diagnoses / Procedures Referred By Contac t Referred To Contact ORTHOPEDICS Diagnoses Acute cystitis with hematuria Other fracture of right femur, initial encounter for closed fracture (CMS) Humphrey Rose MD [address] [place] [address] Med [facility] Inpt(G3) [address] [facility] [address] [place] [address] Referral ID Status Reason Start Date Expiration Date Visits Re quested Visits Authorized [id number] 1 1 Encounter Details Date Type Department Care Team (Late st Contact Info) Description 02/04/2024 2:00 PM CDT - 02/04/2024 4:57 PM CDT Surgery OR P4 [address] [place] [address] [address] [place] [address] Homa Zarate MD [address] [facility] [address] [place] [address] Not Performed IM KRYSTLE FEMUR Social History Tobacco Use [...] Sign Reading Time Taken Comments Blood Pressure 107/65 02/04/2024 3:40 PM CDT Pulse 83 02/04/2024 3:40 PM CDT Temperature 36.9 ??C (98.4 ??F) 02/04/2024 3:40 PM CD T Respiratory Rate 19 02/04/2024 3:40 PM CDT Oxygen Saturation 99% 02/04/2024 3:40 PM CDT Inhaled Oxygen Concentration - - [...] called to nurse, of Cathy Raymond at [facility] Patient transported back to [facility] via Bed, Accompanied by Transporter, Patient's condition [...] Component Value Ref Range Date/Time URINE CULTURE [[id number]] Collected: 02/02/24 170 Specimen: Urine Updated: 02/02/242204 BODY FLUID CULTURE:INCLUDES GRAM STAIN [[id number]] Collected: 02/02/241950 Specimen: Peritoneal Fluid from Peritoneum [...] sigmoid colon, chronic seen in imaging since 2016 # Possible sigmoid volvulus (ruled out) # [...] Constipation # Insomnia # GERD - Continue BOTTLE FILLER cetirizine, citalopram, gabapentin, levothyroxine, pantoprazole, PEG/senna, trazodone [...] Female at 02/07/2024 6:05 AM Charge Capture Mail Clerk * Dayo Henning MD - 02/07/2024 [...] Component Value Ref Range Date/Time URINE CULTURE [[id number]] Collected: 02/02/24 170 Specimen: Urine Updated: 02/02/242204 BODY FLUID CULTURE:INCLUDES GRAM STAIN [[id number]] Collected: 02/02/241950 Specimen: Peritoneal Fluid from Peritoneum [...] Constipation # Insomnia # GERD - Continue BOTTLE FILLER cetirizine, citalopram, gabapentin, levothyroxine, pantoprazole, PEG/senna, trazodone [...] Female at 02/06/2024 7:10 AM Charge Capture Mail Clerk * Cely Buck DPM - 02/06/2024 [...] patient's care at this time. Please page manager of compensation resident with questions. INTERVAL ILLNESS: Patient seen [...] 4.55 02/04/2024 0640 HGB 9.4 (L) 02/05/2024 09 HGB 9.2 (L) 02/04/2024 0640 PLT 164 02/05/2024 0915 PLT 152 02/04/2024 0640 CR 0.62 02/05/2024 0915 CR 0.64 02/04/2024 0640 Lab Results (Last 120 hours) Procedure Component Value Ref Range Date/Time URINE CULTURE [[id number]] Collected: 02/02/241702 Specimen: Urine Updated: 02/02/242204 BODY FLUID CULTURE:INCLUDES GRAM STAIN [[id number]] Collected: 02/02/241950 Specimen: Peritoneal Fluid from Peritoneum [...] Constipation # Insomnia # GERD - Continue BOTTLE FILLER cetirizine, citalopram, gabapentin, levothyroxine, pantoprazole, PEG/senna, trazodone [...] Female at 02/05/2024 9:15 AM Charge Capture Mail Clerk * Gladys Samuels DPM - 02/05/2024 [...] continue to follow while inpatient. Please page manager of compensation resident with questions. Patient was discussed with manager of compensation staff, Dr. Samuels CHIEF COMPLAINT: Right foot [...] right femur, initial encounter for closed fracture ([facility]) 02/02/2024 CURRENT HEALTH STATUS Medications: Current Facility-Administered Medications Medication Route Frequency clotrimazole (LOTRIMIN) 1% cream Topical bid bisacodyl (DULCOLAX) suppository 10 mg Rectal daily nystatin 832263 unit/g powder Topical bid citalopram (CeleXA) tablet [...] one daughter and two grandchildren. She is Zoroastrianism. When feeling well she likes to have [...] CDT Orthopaedic Surgery Progress Note 02/05/2024 S: 1/2 blood cxs from 02/02 with g+ bacilli, [...] Component Value Ref Range Date/Time URINE CULTURE [[id number]] Collected: 02/02/241702 Specimen: Urine Updated: 02/02/242204 BODY FLUID CULTURE:INCLUDES GRAM STAIN [[id number]] Collected: 02/02/241950 Specimen: Peritoneal Fluid from Peritoneum [...] coagulase positive staph, not further speciated yet, -02/02 blood cultures collected here growing gram positive [...] Constipation # Insomnia # GERD - Continue BOTTLE FILLER cetirizine, citalopram, gabapentin, levothyroxine, pantoprazole, PEG/senna, trazodone [...] Female at 02/04/2024 6:40 AM Charge Capture Mail Clerk * Homa Zarate MD - 02/04/2024 [...] Component Value Ref Range Date/Time URINE CULTURE [[id number]] Collected: 02/02/24 170 Specimen: Urine Updated: 02/02/242204 BODY FLUID CULTURE:INCLUDES GRAM STAIN [[id number]] Collected: 02/02/241950 Specimen: Peritoneal Fluid from Peritoneum [...] new results of positive blood cx from [place] as well as one from [facility]. They arereportedly two different classes of bacteria [...] 02/03/2024 Expected DC Date: 02/06/2024 Social Information Rental Sales Representative Used: None needed Decision Maker at Admission: Self Living Situation: Home Patient Identified Support System: Services Receiving: SEISMIC PROSPECTING SUPERVISOR / Skilled Services ([facility] care for OT, PT, RN) Complex Medical Needs: None Transportation Used for Discharge: stretcher Safety Concerns: None Behavioral Health Concerns: None Patient Family Goals Patient's Discharge Goal: agreeable to consider TCU in [place] Family's Discharge Goal: n/a Plan/Interventions Discharge Plan: SNF Was Patient Choice Provided?: Yes Who was Choice Provided to?: Patient Patient Information Verification Verified demographic information, including SSN, Next of Kin, and Guardianship: Yes Verified PCP: Yes If post-acute placement is needed, have vaccination status needs been addressed?: Not applicable Risks for Readmission: None Summary of pertinent information: Patient admitted in transfer from [facility] with concern for left femur fracture from a fall and sigmoid volvulus. She continues to await medical clearancefor surgery. Had patient sign FRED to get imaging pushed from both [facility] and [facility]. Sent FRED to both places, anticipate that imaging should be available soon. Anticipate that she will require TCU placement. She prefers [place] and has been at facilities there previously. Currently open to home care through [facility]. Will continue to follow. Sara Hdez RN, [...] Constipation # Insomnia # GERD - Continue BOTTLE FILLER cetirizine, citalopram, gabapentin, levothyroxine, pantoprazole, PEG/senna, trazodone - HOLD oxybutynin - Check Hb A1c Subjective/Events of Past 24 Hours: Hospital Day: 1 Reports fine No nausea or vomiting No abdominal pain Objective: Physical Exam GEN: NAD, laying in bed RES: clear lungs, on wheezing, rales or rhonchi CV: r/r/r, no murmurs, rubs or gallops ABD: distended Labs reviewed Charge Capture Mail Clerk * Giselle Johansen MD - 02/03/2024 [...] Component Value Ref Range Date/Time URINE CULTURE [[id number]] Collected: 02/02/24 170 Specimen: Urine Updated: 02/02/242204 BODY FLUID CULTURE:INCLUDES GRAM STAIN [[id number]] Collected: 02/02/241950 Specimen: Peritoneal Fluid from Peritoneum [...] documented in this encounter H&P Notes * Enedina Austin MD - 02/02/2024 6:20 PM CDT [...] Complete Heart Block (very low risk) - Hlom 2.7% risk of Perioperative Myocardial Infarction or [...] Constipation # Insomnia # GERD - Continue BOTTLE FILLER cetirizine, citalopram, gabapentin, levothyroxine, pantoprazole, PEG/senna, trazodone [...] (A) NEGATIVE Ketones TRACE (A) NEGATIVE Specific [place] 1.024 1.003 - 1.030 Blood Ur LARGE (A) Neg-Trace PH Urine 6.0 5.0 - 7.0 Protein Ur 30 (A) Neg-Trace Urobilinogen >=8 (A) NORMAL EU/dL Nitrite Ur NEGATIVE NEGATIVE Leuk Est SMALL (A) Neg-Trace WBC Ur 6-10 (A) 0 - 5 perHPF RBC Ur >20 (A) 0 - 3 perHPF SQ EPITH 0-5 0 - 5 perHPF Bacteria UA PRESENT Urinalysis Performed at: [facility] BODY FLUID CELL COUNT/DIFF Result Value Ref [...] MISCELLANEOUS BODY FLUID Result Value Ref Range [facility] Result 1.3 Units BF g/dL Narrative fluid: [...] to verify the correct patient, procedure, equipment, it support technician and site/side marked as required. [...] and cytology examination : No Patient to [facility] for post-procedure monitoring. Patient education sheets given regarding post-care. * Humphrey Rose MD - 02/02/2024 10:03 PM CDTAssociated Order(s): Paracentesis Paracentesis Performed by: Cooper Loaiza MD Authorized by: Humphrey Rose MD Consent: Consent obtained: Verbal Consent given by: Patient Risks discussed: Bleeding, bowel perforation and infection Alternatives discussed: No treatment [place] protocol: Patient identity confirmed: Verbally with patient [...] seat;tub / shower chair;hand held shower head;grab bars;registered associate Prior Level of Function: ADLs/IADLs: Received assistance from family / friends;Received assistance from SEISMIC PROSPECTING SUPERVISOR for hours per day / days per [...] to a TCU near her home in [place] when medically stable. (See box at the [...] on each: Eval: 29 minutes Therapist: LILY Landaverde/Bethanie Pager: [facility] Occupational Therapy Department * Rose Marie Early, [...] right femur, initial encounter for closed fracture ([facility]) PT Treatment Diagnosis: Difficulty in Walking R [...] riser, and dyan lift Services at home: SEIS[employer] PROSPECTING SUPERVISOR services MWF, home PT / OT / [...] in near 90/90 hip/knee positioning (WFL for [facility] seating). Transfers & Bed Mobility: Supine to [...] reportedly Alycia with stand pivot transfers to [facility] (GLF during tx resulted in femur fx), has 24/7 assist from , SEISMIC PROSPECTING SUPERVISOR services 3x/wk, and home PT / OT [...] viasara steady, up to chair as appropriate. BOTTLE FILLER Appropriate: No (needs mobility progressed) Participated in goal setting and treatment planning: Patient Agrees with goals and treatment plan: Patient - Yes. Rose Marie Early PT 02/06/2024 Pager: [facility] PT Department * Dominic Castorena MD - [...] set of blood cultures were taken at [facility] in which 2 of 2 bottles grew [...] the original note were not included. Data: [facility] nurse met with patient to [...] over the next few days. Please page manager of compensation resident with questions. Patient was seen with manager of compensation staff, Dr. Roth PROCEDURE: Risks and benefits [...] States that she follows up with a manager adult in [place] and has had extensive surgery of the [...] CWOCN - 02/04/2024 3:36 PM CDT DAP: [facility] nursing attempted to see patient [...] with questions or concerns. Mindy Swan APRN, RALPH, 02/03/2024 3:00 PM Palliative Medicine Available [facility] Advance Care Planning Primary Care: No primary [...] helps her at home along with a SEISMIC PROSPECTING SUPERVISOR. States that she broke her other femur [...] their hobbies, activities and interests, spirituality or shinto, personal experience with end of life, and personal hopes, worries. Thisbackground is essential in understanding what is most important and how that can change throughout the course of a serious illness. This summary is an attempt to highlight that background. Social History Social History Narrative Tiny is to her , Jai. She has one daughter and two grandchildren. She is Zoroastrianism. When feeling well she likes to have [...] APRN, CNP, 02/03/2024 4:14 PM * Amanda Elsie PA-C - 02/03/2024 8:50 AM CDTAssociated Order(s): [...] specifically on review of CT scans from [facility] dated 07/08/2022 and [facility] dated111/21/2020, it appears patient has had a chronically dilated sigmoid colon, possibly dating back [id number]. Also has known chronic constipation and neuropathy [...] c/b ascites MELD 3.0 16 Established at [facility], last seen 12/15/2013. Etiology felt to [...] cirrhosis. 09/20/2021 CT CAP with IV contrast ([facility]): IMPRESSION: 1. Minimally more prominent left axillary [...] acholic cirrhosis, R TKA around 2017 in [place], [place],L femur fx s/p surgical fixation ~ 2019 at [place], idiopathic progressive neuropathy, hypothyroidism,chronic neuropathic pain, DMII [...] - disability Lives with in house in [place], [place] ALLERGIES: Allergies Allergen Reactions Amoxicillin-Pot Clavulanate [...] Henning MD - 02/05/2024 4:06 PM CDT [facility] [id number] [place] [address] OPERATIVE REPORT PATIENT: Cathy Raymond : 1965 DATE OF PROCEDURE: 02/05/24 SURGEON: Dayo Henning MD - Primary TEST AND BALANCE ENGINEER SURGEON: Serge Parker DO - Fellow Ian [...] Implant Name Type Inv. Item Serial No. Whizzer Hand Lot No. LRB No. Used Action FEMORAL NAIL RETROGRADE [id number] Krystle FEMORAL NAIL RETROGRADE [id number] [employer] [id number] Right 1 Implanted 5.0X60MM 2361-5060S Screw/Lakeside 5.0X60MM 2361-5060S [employer] [id number] Right 1 Implanted 5.0X70MM 2361-5070S Screw/Lakeside 5.0X70MM 2361-5070S YULISSADealDashS [id number] Right 1 Implanted 5.0X75MM ADV 2361-5075S Screw/Lakeside 5.0X75MM ADV 2361-5075S [employer] [id number] Right 1 Implanted FREEHAND DRILL [id number] Drill bit/kiara FREEHAND DRILL [id number] [employer] [id number] Right1 Implanted 5.0X42.5MM 2360-5042S Screw/Lakeside 5.0X42.5MM 2360-5042S [employer] [id number] Right 1 Implanted INDICATIONS: Cathy Raymond is a 58 y.o. female who presented to [facility] with right leg pain after a fall. [...] proximal thigh. This was performed using perfect kaltag technique. A stab incision was made over [...] primary nurse, Catarino. * Ileana Howell APRN, RALPH - 02/02/2024 9:19 PM CDT Transfer of Care Note Emergency Dept Medical Provider Patient: Cathy Raymond : 1965 Demo: 58 y.o. female Sign out received from Josse MESSER. Please see original ED provider note for further details. PERTINENT HPI, PMH, & ED COURSE In brief, 58 y.o. female with a history of alcoholic cirrhosis, fatty liver, chronic inflammatory demyelinating polyradiculoneuropathy, DVT, MXA, T2DM, HTN who presents as transfer from [facility] for RIGHT midshaft femur fracture after mechanical [...] Wt 98.8 kg (217 lb 13 oz) QeS490% Upon assuming care, I reviewed the chart, results of studies performed during their course in the ED, re-examined the patient, and discussed their care and plan with my supervising attending. Distended abd > CT unable to r/o volvulus Medicine team paged re: CT a/p results, surgery consulted and paged ED Course as of 02/02/242133Feb 02, [id number] Weak at home, mech fall, [...] NEGATIVE Bili UA TRACE(!) Ketones TRACE(!) Specific [place] 1.024 Blood Ur LARGE(!) PH Urine 6.0 Protein Ur 30(!) Urobilinogen >=8(!) Nitrite Ur NEGATIVE Leuk Est SMALL(!) WBC Ur 6-10(!) RBC Ur >20(!) SQ EPITH 0-5 Bacteria UA PRESENT Urinalysis Performed at: [facility] Receiving CTX 2122 LFTs(!): Total Protein 5.8(!) [...] to floor without incident. Ileana Howell APRN, CNP, DNP Emergency Medicine Nurse Practitioner Dictation Disclaimer: Some notes are completed with voice-recognition dictation software. As a result, there may be errors in the script that have gone undetected. Errors are generally corrected in real time. Please contact me via [employer] staff message if you note any errors [...] Austin MD - 02/02/2024 6:08 PM CDT Pole Frame Construction Worker of the Day (MOD) Triage/Communication Note Sign out received from Cooper in [facility] (team center/clinic). Requested unit: G3 (choose from: any medicine floor, specific medicine floor with rationale, CaRe, RTU, MICU). Patient status: INPT. (Obs v. Inpt) Cardiac telemetry needed? (specify if remote telemetry OK). Summary of verbal sign out given by ED/clinic ADMINISTRATIVE ASSISTANT DATA ENTRY: Cirrhosis, right femur fracture 58yo hx of cirrhosis, transferred from [facility] for a femur fracture after a fall at home. Has 2 total knee replacement. Has displaced mid-shaft right femur fracture -- ortho has been consulted. Got ancef for right foot wound. Has UTI - getting ceftriaxone ED to do paracentesis. Enedina Austin MD, 02/02/2024 6:13 PM Staff Physician, [facility] Medicine Note is for communication only, not [...] subsequent R femur fracture. Ortho consulted, recs asbelstanton and ultimately placed in traction with procedural [...] osteo on XR. ED Course as of 02/02/242201e Feb 02, 2024 160 ED EKG (12-LEAD) Nsr no acute ischemia 164 Ortho aware of femur fracture; will evaluate [...] sign, ascites 1711 HS Troponin I: <3 1711 Reviewed outside records: had fall at home after losing balance, felt R knee/leg pain immediately, couldn't bear weight. Hx cirrhosis, chronic lymphedema. Blood cultures sent there. Got ancef dose for R foot wound they felt was purulent. 1718 INR(!): 1.6 1728 UA, Total(!): Color YELLOW Appearance CLOUDY(!) Urine Glucose NEGATIVE Bili UA TRACE(!) Ketones TRACE(!) Specific [place] 1.024 Blood Ur LARGE(!) PH Urine 6.0 Protein Ur 30(!) Urobilinogen >=8(!) Nitrite Ur NEGATIVE Leuk Est SMALL(!) WBC Ur 6-10(!) RBC Ur >20(!) SQ EPITH 0-5 Bacteria UA PRESENT Urinalysis Performed at: [facility] Grossly concerning for infection; will treat with ceftriaxone 183 XR FEMUR RIGHT AP + LAT* IMPRESSION: [...] put pt in traction; will need sedation 183 XR PELVIS AP* IMPRESSION: 1. Severe gaseous [...] 02/02/2024 3:17 PM CDT [place] as a [place] transfer. EMS was called around 0945 for a stumble and fall. HX of ETOH with cirrohsis and ascites. Right mid-shaft with Morphine and dilaudid in [place] ED. 4 mg morphine en route. Pain rating 3 or 4/10 2 g cefazolin en route 20 RFA * Maggie Tariq RN - 02/02/2024 1:44 PM CDT Report called from [facility]. Pt is non weight bearing and lives [...] 3:32 PM * Nursing Assessment - Allie Alexandra RN - 02/08/2024 4:24 AM CDT Nursing Assessment Head to Toe Head to Toe Assessment Shift Summary [id number] Pt A&Ox4. Endorsed pain to to RLE. [...] report. Patient abdomen very extended and hard. Blindmaker notedno urine output and straight cath for 300 ml at 1400. Patient reports being incontinent at baselineand was incontinent of stool one time this shift. Blindmaker placed external catheter on patient at 1700 after diuretic administration. Patient very anxious when repositioning . Wound vac failed and health technical writer notified ortho provider. Provider reports that wound vac is just over pin site and can go withoutit if unable to get a new one tonight. Patients groin is raw and red and health technical writer provided nystatin and lotion to area. Wound care done per order by health technical writer to coccyx. Patient does not tolerate [...] gauge Anterior;Left Forearm 02/02/242018 -- 4 Rash 02/02/247 groin 02/02/24 2347 -- 4 Rash 02/02/24 [...] Peripheral IV 02/02/24 20 gauge Anterior;Left Forearm 04/30/24 2019 -- 4 Rash 02/02/24 2347 groin 02/02/24 [...] Toe Head to Toe Assessment Shift Summary [id number] Pt A&Ox4. Endorsed pain to to RLE. [...] 20 gauge Anterior;Left Forearm 02/02/24 2019 -- 4 Rash 02/02/24 2347 groin 02/02/24 [...] Limits * Nursing Assessment - Nino Simpson, RN - 02/06/2024 3:17 PM CDT Nursing Assessment [...] Knee Anterior;Right 02/05/24 1331 Knee 1 Wound 05/03/24 Incision Leg Distal;Upper;Right 02/05/24 1443 Leg 1 [...] of pain. Ordered and transferred pt to [facility] d/t high skin risk and current skin [...] Forearm 02/02/24 2019 -- 3 Rash 02/02/24 234 groin 02/02/24 234 -- 3 Rash 02/02/24 [...] Toe Head to Toe Assessment Shift Summary [id number] Pt Sleeping upon shift change. Endorsed pain to to RLE. PRN given per mar. Pt sleeping on reassessment. POD #0. Numbness to RLE. Other CMS intact. Leg elevated and ICE pack provided. Paracentesis site draining small output. Andrade in place draining well. Pt drinking fluids well. Pt informed health technical writer she will call when she needs [...] Jorge MD - 02/05/2024 1:31 PM CDT [facility] Immediate Post Operative Note Note written: Day [...] Implant Name Type Inv. Item Serial No. Whizzer Hand Lot No. LRB No. Used Action FEMORAL NAIL RETROGRADE [id number] Krystle FEMORAL NAIL RETROGRADE [id number] [employer] [id number] Right 1 Implanted 5.0X60MM 2361-5060S Screw/Lakeside 5.0X60MM 2361-5060S [employer] [id number] Right 1 Implanted 5.0X70MM 2361-5070S Screw/Lakeside 5.0X70MM 2361-5070S [employer] [id number] Right 1 Implanted 5.0X75MM ADV 2361-5075S Screw/Lakeside 5.0X75MM ADV 2361-5075S [employer] [id number] Right 1 Implanted FREEHAND DRILL [id number] Drill bit/kiara FREEHAND DRILL [id number] [employer] [id number] Right1 Implanted 5.0X42.5MM 2360-5042S Screw/Lakeside 5.0X42.5MM 2360-5042S [employer] [id number] Right 1 Implanted Intraoperative Findings: see op [...] check Vignesh Jorge MD Orthopaedic Surgery PGY-3 [facility] Orthopaedic Trauma Service * Nursing Assessment - Nino Simpson RN - 02/05/2024 10:39 AM CDT Nursing [...] Antecubital 02/02/242035 -- 2 Rash 02/02/242346 groin 04/30/24 2347 -- 2 Rash 02/02/24 2348 02/02/24 2348 -- 2 Wound 02/03/24 Pretibial Left 02/03/24 0104 Pretibial 2 Wound 02/03/24 Pedal Anterior;Right 02/03/24 0636 Pedal 2 Wound 02/03/24 Ulceration Sacrum 02/03/24 1200 Sacrum 1 Urinary Catheter 02/02/24 1714 -- 2 Psychosocial Within Defined Limits * Nursing Assessment - Nereyda-Thu French RN - 02/05/2024 12:19 AM CDT Summary: [id number] Nursing Assessment Head to Toe Head to Toe Assessment Shift Summary Pt is A&OX4 with VSS on RA. Pt has very distended and taut stomach, paracentesis site drained 625 mL yellow fluid from ostomy bag. NPO status maintained. Andrade catheter in place draining imli concentrated urine. Pt reports neuropathy at baseline and CMS is intact to RLE. This health technical writer attempted to give CHG bath and [...] length Right Antecubital 02/02/242035 -- 2 Rash 02/02/247 groin 02/02/242346 -- 2 Rash 02/02/24 2348 02/02/242347 -- 2 Wound 02/03/24 Pretibial Left 02/03/24 0104 Pretibial 1 Wound 02/03/24 Pedal Anterior;Right 02/03/24 0636 Pedal 1 Wound 02/03/24 Ulceration Sacrum 02/03/24 1200 Sacrum 1 Urinary Catheter 02/02/24 1714 -- 2 Psychosocial Within Defined Limits * Nursing Assessment - Thu Lowery RN - 02/04/2024 10:17 PM CDT Summary: [id number] Nursing Assessment Head to Toe Head to Toe Assessment Shift Summary Pt is A&OX4 with VSS on RA. Pt has R femur fx (closed) and is on traction to R leg. Pt has largely distended and taut stomach, paracentesis site drained 120 mL yellow fluid this shift from ostomybag. Pt is NPO at 11:59pm for procedure tomorrow. Andarde catheter in place draining mili concentrated urine. Pt reports neuropathy at baseline and CMS is intact to RLE. Nystatin and antifungal cream a pplied to bilateral abdominal/groin folds. Prn oxycodone given for pain /10 to RLE. Will continue to monitor and [...] 20 gauge Anterior;Left Forearm 02/02/24 2019 -- 1 Peripheral IV 02/02/24 18 gauge;1 3/4 in length Right Antecubital 02/02/242035 -- 1 Rash 02/02/24 2347 groin 02/02/242346 -- 1 Rash 02/02/24 2348 02/02/242347 -- 1 Wound 02/03/24 Pretibial Left 02/03/24 [...] Antecubital 02/02/242035 -- 1 Rash 02/02/242346 groin 04/30/24 2347 -- 1 Rash 02/02/24 2348 02/02/24 [...] 18 gauge;1 3/4 in length Right Antecubital 02/02/246 -- less than 1 Rash 02/02/24 2347 groin 02/02/24 234 -- less than 1 Rash 02/02/24 2348 02/02/24 234 -- less than 1 Wound 02/03/24 Pretibial [...] Carter Maurer APRN, CNP, 02/03/2024 12:38 PM [facility] Department of Surgery Pager: via telemediq * Nursing Assessment - Chelsi Mehta RN - 02/03/2024 6:35 AM CDT Nursing Assessment Head to Toe Head to Toe Assessment Shift Summary Shift Summary Pt arrived to [facility] from ED AT AROUND 1130 Admitted for [...] Age: 58 y.o. Gender: female FACULTY ATTESTATION I, Humphrey Rose MD, personally saw the patient, performed critical [...] encounter for closed fracture (CMS) Humphrey Rose MD, 02/02/2024 4:55 PM documented in this encounter Plan of Treatment Upcoming Encounters Date Type Department Care Team (Late st Contact Info) Description 02/18/2024 11:20 AM CDT [facility] [address] [address] Lia Mcclellan PA-C [address] [place], [place] [address] [place] [address] Other, Rental Sales Representative [address] [place] [address] Scheduled Discharge Disposition: Discharged to home or [...] Routine 02/04/2024 9:50 PM CDT PC CULTURE,BACTERIAL,[place],AEROBIC;BLOOD Timed 02/04/2024 6:44 PM CDT PC CULTURE,BACTERIAL,[place],AEROBIC;BLOOD Routine 02/04/2024 6:44 PM CDT POTASSIUM Timed [...] Routine 02/04/2024 6:40 AM CDT PC CULTURE,BACTERIAL,[place],AEROBIC;BLOOD Timed 02/03/2024 12:13 PM CDT PC CULTURE,BACTERIAL,[place],AEROBIC;BLOOD Timed 02/03/2024 12:06 PM CDT PC LAB CBC W/DIFF & PLT Routine 02/03/2024 8:03 AM CDT PROTHROMBIN (PT) & INR Routine 8:03 AM CDT PANEL BASIC METABOLIC (BMP) Routine 02/03/2024 8:03 AM CDT PANEL HEPATIC FUNCTION Routine 8:[address] RIGHT FEMUR NO [...] POC Glucose 82 70 - 100 mg/dL [facility] Blood 02/08/2024 12:3 0 PM CDT Humphrey Roes MD LABORATORY [facility] [address] [place] [address], [place] * IR PARACENTESIS (02/08/2024 11:45 AM [...] to verify the correct patient, procedure, equipment, it support technician and site/side marked as required. [...] None. Impression: Ultrasound-guided paracentesis as above. Coco ENNIS-Yeni PROCEDURES * (ABNORMAL) PROTHROMBIN (PT) & INR (02/08/2024 8:19 AM CDT) PT 29.3(H) 9.0 - 12.5 sec [facility] INR 2.6(H) 0.8 - 1.1 [facility] Comment: Warfarin Therapeutic Range: Standard Intensity: 2.0 - 3.0 High Intensity: 2.5 - 3.5 Blood 02/08/2024 8:19 AM CDT 02/08/2024 8:35 AM CDT Autumn Jerome MD LABORATORY [facility] [address] [address] * (ABNORMAL) PANEL HEPATIC FUNCTION (02/08/2024 8:19 AM CDT) Total Protein 6.1(L) 6.4 - 8.3 g/dL [facility] Albumin 2.5(L) 3.8 - 5.1 g/dL [facility] Bili Total 1.0 <=1.2 mg/dL [facility] Bili Direct 0.5(H) <=0.3 mg/dL [facility] Alk Phos 125(H) 35 - 104 IU/L [facility] Comment:No reference range e stablished for patients <18 years old. ALT (SGPT) 6 <=33 IU/L [facility] AST(SGOT) 30 5 - 40 IU/L [facility] Blood 02/08/2024 8:19 AM CDT 02/08/2024 8:35 AM CDT Autumn Jerome MD LABORATORY Performing Organization Address [facility] Co de Phone Number [facility] [address] [address] * (ABNORMAL) PANEL BASIC METABOLIC (BMP) (02/08/2024 8:19 AM CDT) Sodium 134(L) 135 - 148 mEq/L [facility] Potassium 3.8 3.5 - 5.3 mEq/L [facility] CO2 29 22 - 30 mEq/L [facility] AnGap 5(L) 8 - 16 mEq/L [facility] Glucose 91 70 - 100 mg/dL [facility] BUN 9 6 - 20 mg/dL [facility] Creatinine 0.59 0.50 - 1.00 mg/dL [facility] Chloride 100 92 - 108 mEq/L [facility] Calcium 8.1(L) 8.6 - 10.0 mg/dL [facility] eGFR (2020 CKD-EPI) 104 >=60 ml/min/1.7 3m2 [facility] Comment: The estimated glomerular filtration rate (eGFR) was calculated using the CKD-EPI 2020 creatinine equation, which does not include race as a factor. This equation is validated in individuals 18 years of age and older, and eGFR is normalized to a body surface area of 1.73m^2. Blood 02/08/2024 8:19 AM CDT 02/08/2024 8:35 AM CDT Autumn Jerome MD LABORATORY Performing Organization Address [facility] Co de Phone Number [facility] [address] [address] * (ABNORMAL) POC GLUCOSE (02/07/2024 6:41 PM CDT) POC Glucose 134(H) 70 - 100 mg/dL [facility] Blood 02/07/2024 6:41 PM CDT Humphrey Rose MD LABORATORY Performing Organization Address City/[facility]/ZIP Co de Phone Number [facility] POINT OF [place] [phone], [place] * POC GLUCOSE (02/07/2024 12:24 PM CDT) POC Glucose 99 70 - 100 mg/dL [facility] Blood 02/07/2024 12:2 4 PM CDT Humphrey Rose MD LABORATORY Performing Organization Address [facility] Co de Phone Number [facility] POINT OF [place] [phone], [place] * PHOSPHORUS (02/07/2024 6:05 AM CDT) Pathologist [facility] Phosphorus 3.2 2.5 - 4.5 mg/dL [facility] Blood 02/07/2024 6:05 AM CDT 02/07/2024 7:28 AM CDT Autumn Jerome MD LABORATORY Performing Organization Address [facility] Co de Phone Number [address] [address] * MAGNESIUM (02/07/2024 6:05 AM CDT) Magnesium 2.0 1.6 - 2.6 mg/dL [facility] Blood 02/07/2024 6:05 AM CDT 02/07/2024 7:28 AM CDT Autumn Jerome MD LABORATORY Performing Organization Address City/[facility]/ZIP Co de Phone Number [address] [address] * (ABNORMAL) PANEL HEPATIC FUNCTION (02/07/2024 6:05 AM CDT) Pathologist [facility] Total Protein 5.7(L) 6.4 - 8.3 g/dL [facility] Albumin 2.3(L) 3.8 - 5.1 g/dL [facility] Bili Total 0.9 <=1.2 mg/dL [facility] Bili Direct na <=0.3 mg/dL [facility] Comment:BILID = 0.4. Accurac y of result suspect due to hemolysis. Alk Phos 116(H) 35 - 104 IU/L [facility] Comment:No reference range e stablished for patients <18 years old. ALT (SGPT) 9 <=33 IU/L [facility] AST(SGOT) na 5 - 40 IU/L [facility] Comment:AST = 37. Accuracy o f result suspect due to hemolysis. Blood 02/07/2024 6:05 AM CDT 02/07/2024 7:28 AM CDT Autumn Jerome MD LABORATORY [facility] [address] [place] [address] * (ABNORMAL) CBC WITH PLATELET (02/07/2024 6:05 AM CDT) Pathologist [facility] WBC 9.53 4.00 - 10.00 k/cmm [facility] RBC 3.19(L) 3.90 - 5.20 m/cmm [facility] Hgb 9.5(L) 11.5 - 15.7 g/dL [facility] Hematocrit 29.8(L) 34.0 - 45.0 % [facility] MCV 93.4 80.0 - 100.0 fL [facility] MCH 29.8 25.0 - 32.0 pg [facility] MCHC 31.9 31.0 - 36.0 g/dL [facility] RDW 13.7 11.5 - 14.5 % [facility] Plt 149(L) 150 - 400 k/cmm [facility] MPV 11.1 6.5 - 12.5 fL [facility] NRBC 0.3(H) 0.0 - 0.0 /100WBC [facility] Blood 02/07/2024 6:05 AM CDT 02/07/2024 7:26 AM CDT Autumn Jerome MD LABORATORY Performing Organization Address City/[facility]/ZIP Co de Phone Number [facility] [address] [address] * (ABNORMAL) PANEL BASIC METABOLIC (BMP) (02/07/2024 6:05 AM CDT) CO2 23 22 - 30 mEq/L [facility] AnGap 10 8 - 16 mEq/L [facility] Glucose 87 70 - 100 mg/dL [facility] Creatinine 0.58 0.50 - 1.00 mg/dL [facility] Potassium 5.2 3.5 - 5.3 mEq/L [facility] eGFR (2020 CKD-EPI) 104 >=60 ml/min/1.7 3m2 [facility] Comment: The estimated glomerular filtration rate (eGFR) was calculated using the CKD-EPI 2020 creatinine equation, which does not include race as a factor. This equation is validated in individuals 18 years of age and older, and eGFR is normalized to a body surface area of 1.73m^2. Sodium 135 135 - 148 mEq/L [facility] BUN 11 6 - 20 mg/dL [facility] Calcium 7.9(L) 8.6 - 10.0 mg/dL [facility] Chloride 102 92 - 108 mEq/L [facility] Blood 02/07/2024 6:05 AM CDT 02/07/2024 7:28 AM CDT Autumn Jerome MD LABORATORY Performing Organization Address [facility]/ZIP Co de Phone Number [facility] [address] [address] * (ABNORMAL) POC GLUCOSE (02/06/2024 6:08 PM CDT) POC Glucose 124(H) 70 - 100 mg/dL [facility] Blood 02/06/2024 6:08 PM CDT Humphrey Rose MD LABORATORY [facility]ARE [address] [place] [address], * POC GLUCOSE (02/06/2024 11:57 AM CDT) POC Glucose 98 70 - 100 mg/dL [facility] Blood 02/06/2024 11:5 7 AM CDT Humphrey Rose MD LABORATORY [facility] [address] [place] [address], * (ABNORMAL) PROTHROMBIN (PT) & INR (02/06/2024 7:10 AM CDT) Pathologist [facility] PT 18.3(H) 9.0 - 12.5 sec [facility] INR 1.6(H) 0.8 - 1.1 [facility] Comment: Warfarin Therapeutic Range: Standard Intensity: 2.0 - 3.0 High Intensity: 2.5 - 3.5 Blood 02/06/2024 7:10 AM CDT 02/06/2024 7:28 AM CDT Autumn Jerome MD LABORATORY [facility] [address] [place] [address] * (ABNORMAL) PANEL HEPATIC FUNCTION (02/06/2024 7:10 AM CDT) Total Protein 5.6(L) 6.4 - 8.3 g/dL [facility] Albumin 2.3(L) 3.8 - 5.1 g/dL [facility] Bili Total 0.8 <=1.2 mg/dL [facility] Bili Direct 0.4(H) <=0.3 mg/dL [facility] Alk Phos 101 35 - 104 IU/L [facility] Comment:No reference range e stablished for patients <18 years old. ALT (SGPT) 12 <=33 IU/L [facility] AST(SGOT) 33 5 - 40 IU/L [facility] Blood 02/06/2024 7:10 AM CDT 02/06/2024 7:28 AM CDT Autumn Jerome MD LABORATORY Performing Organization Address City/[facility]/ZIP Co de Phone Number [facility] [address] [address] * (ABNORMAL) PANEL BASIC METABOLIC (BMP) (02/06/2024 7:10 AM CDT) CO2 26 22 - 30 mEq/L [facility] AnGap 5(L) 8 - 16 mEq/L [facility] Glucose 105(H) 70 - 100 mg/dL [facility] Creatinine 0.61 0.50 - 1.00 mg/dL [facility] Sodium 135 135 - 148 mEq/L [facility] Potassium 4.4 3.5 - 5.3 mEq/L [facility] eGFR (2020 CKD-EPI) 103 >=60 ml/min/1.7 3m2 [facility] Comment: The estimated glomerular filtration rate (eGFR) was calculated using the CKD-EPI 2020 creatinine equation, which does not include race as a factor. This equation is validated in individuals 18 years of age and older, and eGFR is normalized to a body surface area of 1.73m^2. BUN 11 6 - 20 mg/dL [facility] Calcium 8.1(L) 8.6 - 10.0 mg/dL [facility] Chloride 104 92 - 108 mEq/L [facility] Blood 02/06/2024 7:10 AM CDT 02/06/2024 7:28 AM CDT Lia Mcclellan PA-C LABORATORY Performing Organization Address City/[facility]/ZIP Co de Phone Number [facility] [address] [address] * (ABNORMAL) HEMOGLOBIN (02/06/2024 7:10 AM CDT) Hgb 8.8(L) 11.5 - 15.7 g/dL [facility] Blood 02/06/2024 7:10 AM CDT 02/06/2024 7:28 AM CDT Lia Mcclellan PA-C LABORATORY [facility] [address] [place] [address] * (ABNORMAL) POC GLUCOSE (02/06/2024 6:06 AM CDT) POC Glucose 119(H) 70 - 100 mg/dL [facility] Blood 02/06/2024 6:06 AM CDT Humphrey Rose MD LABORATORY Performing Organization Address [facility] Co de Phone Number [facility] [address] [place], [place] [phone], [place] * (ABNORMAL) POC GLUCOSE (02/06/2024 12:09 AM CDT) POC Glucose 102(H) 70 - 100 mg/dL [facility] Blood 02/06/2024 12:0 9 AM CDT Humphrey Rose MD LABORATORY Performing Organization Address [facility] Co de Phone Number [facility] [address] [place] [address], [place] * (ABNORMAL) POC GLUCOSE (02/05/2024 3:57 PM CDT) POC Glucose 112(H) 70 - 100 mg/dL [facility] Blood 02/05/2024 3:57 PM CDT Humphrey Rose MD LABORATORY Performing Organization Address City/[facility]/ZIP Co de Phone Number [facility] [address] [place] [address], [place] * XR C ARM OVER 3 [...] ADMIN) (02/05/2024 1:19 PM CDT) Unit Number [id number] [facility] Product Code [id number] [facility] Blood Expiration Date [id number] [facility] Blood Type [id number] [facility] Blood Type (TEXT) APOS [facility] Other 02/05/2024 1:19 PM CDT 02/05/2024 1:16 PM CDT Marcus Hanna MD BLOOD BANK ORDERABLE S (BLOOD ADMIN) Performing Organization Address [facility]/ZIP [place] [address] * POC GLUCOSE (02/05/2024 11:21 AM CDT) POC Glucose 92 70 - 100 mg/dL [facility] Blood 02/05/2024 11:2 1 AM CDT Humphrey Rose MD LABORATORY Performing Organization Address [facility] Co de Phone Number [facility] [address] [place] [address] * WOUND CULTURE:GRAM STAIN OPTIONAL (02/05/2024 10:00 AM CDT) Final Report Duplicate order. Patient account credited. [facility] Gram Stain Report Few PMN's seen. No organisms seen. [facility] Swab STRUCTURE OF RIGHT FOOT / Unknown 02/05/2024 10:00 AM CDT 02/05/2024 10:25 AM CDT Narrative [facility] - 02/05/2024 2:53 PM CDT Purulent drainage. Gram Stain please, aerobic, anaerobic Do you want a gram stain: Yes Autumn Jerome MD LAB MICROBIOLOGY Performing Organization Address City/[facility]/ZIP [place] [address] * (ABNORMAL) PROTHROMBIN (PT) & INR (02/05/2024 9:15 AM CDT) PT 16.9(H) 9.0 - 12.5 sec [facility] INR 1.5(H) 0.8 - 1.1 [facility] Comment: Warfarin Therapeutic Range: Standard Intensity: 2.0 - 3.0 High Intensity: 2.5 - 3.5 Blood 02/05/2024 9:15 AM CDT 02/05/2024 9:43 AM CDT Autumn Jerome MD LABORATORY [facility] [address] [address] * (ABNORMAL) PANEL HEPATIC FUNCTION (02/05/2024 9:15 AM CDT) Total Protein 5.5(L) 6.4 - 8.3 g/dL [facility] Albumin 2.2(L) 3.8 - 5.1 g/dL [facility] Bili Total 0.7 <=1.2 mg/dL [facility] Bili Direct 0.4(H) <=0.3 mg/dL [facility] Alk Phos 101 35 - 104 IU/L [facility] Comment:No reference range e stablished for patients <18 years old. ALT (SGPT) 13 <=33 IU/L [facility] AST(SGOT) 33 5 - 40 IU/L [facility] Blood 02/05/2024 9:15 AM CDT 02/05/2024 9:43 AM CDT Autumn Jerome MD LABORATORY [facility] [address] [address] * (ABNORMAL) CBC WITH PLATELET (02/05/2024 9:15 AM CDT) WBC 5.51 4.00 - 10.00 k/cmm [facility] RBC 3.11(L) 3.90 - 5.20 m/cmm [facility] Hgb 9.4(L) 11.5 - 15.7 g/dL [facility] Hematocrit 28.9(L) 34.0 - 45.0 % [facility] MCV 92.9 80.0 - 100.0 fL [facility] MCH 30.2 25.0 - 32.0 pg [facility] MCHC 32.5 31.0 - 36.0 g/dL [facility] RDW 13.4 11.5 - 14.5 % [facility] Plt 164 150 - 400 k/cmm [facility] MPV 10.2 6.5 - 12.5 fL [facility] Blood 02/05/2024 9:15 AM CDT 02/05/2024 9:43 AM CDT Autumn Jerome MD LABORATORY [facility] [address] [address] * (ABNORMAL) PANEL BASIC METABOLIC (BMP) (02/05/2024 9:15 AM CDT) CO2 25 22 - 30 mEq/L [facility] Glucose 112(H) 70 - 100 mg/dL [facility] BUN 12 6 - 20 mg/dL [facility] Creatinine 0.62 0.50 - 1.00 mg/dL [facility] Calcium 7.8(L) 8.6 - 10.0 mg/dL [facility] Sodium 134(L) 135 - 148 mEq/L [facility] Potassium 4.1 3.5 - 5.3 mEq/L [facility] Chloride 102 92 - 108 mEq/L [facility] AnGap 7(L) 8 - 16 mEq/L [facility] eGFR (2020 CKD-EPI) 103 >=60 ml/min/1.7 3m2 [facility] Comment: The estimated glomerular filtration rate (eGFR) was calculated using the CKD-EPI 2020 creatinine equation, which does not include race as a factor. This equation is validated in individuals 18 years of age and older, and eGFR is normalized to a body surface area of 1.73m^2. Blood 02/05/2024 9:15 AM CDT 02/05/2024 9:43 AM CDT Autumn Jerome MD LABORATORY Performing Organization Address City/[facility]/ZIP Co de Phone Number [facility] [address] [place] [address] * (ABNORMAL) POC GLUCOSE (02/05/2024 6:02 AM CDT) POC Glucose 106(H) 70 - 100 mg/dL [facility] Blood 02/05/2024 6:02 AM CDT Humphrey Rose MD LABORATORY Performing Organization Address [facility] [place] [place] [address], * (ABNORMAL) POC GLUCOSE (02/04/2024 11:58 PM CDT) POC Glucose 122(H) 70 - 100 mg/dL [facility] POINT OF [facility] Blood 02/04/2024 11:5 8 PM CDT Humphrey Rose MD LABORATORY Performing Organization Address [facility] [place] [address], * (ABNORMAL) WOUND CULTURE:GRAM STAIN OPTIONAL (02/04/2024 10:44 PM CDT) Final Report Moderate Methicillin sensitive Staphylococcus aureus (MSSA) isolated. Methicillin susceptible by PBP2a. Rare Staphylococcus epidermidis isolated. (POS) [facility] Organism METHICILLIN SENSITIVE STAPHYLOCOCCUS AUREUS (MSSA)(POS) [facility] Organism STAPHYLOCOCCUS EPIDERMIDIS(POS) [facility] Gram Stain Report Few PMN's seen. No organisms seen. [facility] Swab STRUCTURE OF RIGHT FOOT / Unknown 02/04/2024 10:44 PM CDT 02/05/2024 9:20 AM CDT Narrative [facility] - 02/07/2024 9:52 AM CDT Do [...] Jerome MD LAB MICROBIOLOGY Performing Organization Address [facility] Co de Phone Number [address] [address] * HELD MICRO SPECIMEN (02/04/2024 10:44 PM CDT) Final Report Microbiology specimen received in lab with no orders. Add-on order must be placed within 24 hours. If no orders placed, specimen will be discarded. [facility] Swab STRUCTURE OF RIGHT FOOT / Unknown 02/04/2024 10:44 PM CDT 02/04/2024 10:45 PM CDT Narrative [facility] - 02/04/2024 10:46 PM CDT Epic message sent to Autumn Jerome at 02/04/2024 22:46:13 CDT by Solitario Mckinnon MLS. Autumn Jerome MD LAB MICROBIOLOGY Performing Organization Address [facility] Co de Phone Number [address] [address] * POC GLUCOSE (02/04/2024 9:50 PM CDT) POC Glucose 94 70 - 100 mg/dL [facility] Blood 02/04/2024 9:50 PM CDT Humphrey Rose MD LABORATORY Performing Organization Address City/[facility]/ZIP Co de Phone Number [facility] [address] [place] [address], * POTASSIUM (02/04/2024 1:17 PM CDT) Pathologist [facility] Potassium 4.3 3.5 - 5.3 mEq/L [facility] Blood 02/04/2024 1:17 PM CDT 02/04/2024 1:33 PM CDT Autumn Jerome MD LABORATORY Performing Organization Address [facility] Co de Phone Number [facility] [address] [address] * ANTIBODY SCREEN (02/04/2024 1:17 PM CDT) [facility] Nicky Screen Negative [facility] Blood 02/04/2024 1:17 PM CDT 02/04/2024 1:34 PM CDT Solitario Ha APRN, CRNA LAB TRANSFUSI ON SERVICES Performing Organization Address [facility] Co de Phone Number [facility] [address] [address] * BLOOD TYPING-ABO/RH (02/04/2024 1:17 PM CDT) Pathologist [facility] ABORHG A POS [facility] Blood 02/04/2024 1:17 PM CDT 02/04/2024 1:34 PM CDT Solitario Ha APRN, CRNA LAB TRANSFUSI ON SERVICES Performing Organization Address [facility] Co de Phone Number [facility] [address] [address] * (ABNORMAL) PROTHROMBIN (PT) & INR (02/04/2024 6:40 AM CDT) [facility] PT 16.2(H) 9.0 - 12.5 sec [facility] INR 1.4(H) 0.8 - 1.1 [facility] Comment: Warfarin Therapeutic Range: Standard Intensity: 2.0 - 3.0 High Intensity: 2.5 - 3.5 Blood 02/04/2024 6:40 AM CDT 02/04/2024 8:27 AM CDT Autumn Jerome MD LABORATORY Performing Organization Address [facility] Co de Phone Number [facility] [address] [address] * (ABNORMAL) PANEL HEPATIC FUNCTION (02/04/2024 6:40 AM CDT) Total Protein 5.5(L) 6.4 - 8.3 g/dL [facility] Albumin 2.2(L) 3.8 - 5.1 g/dL [facility] Bili Total 0.8 <=1.2 mg/dL [facility] Bili Direct 0.5(H) <=0.3 mg/dL [facility] Alk Phos 96 35 - 104 IU/L [facility] Comment:No reference range e stablished for patients <18 years old. ALT (SGPT) 15 <=33 IU/L [facility] AST(SGOT) 37 5 - 40 IU/L [facility] Blood 02/04/2024 6:40 AM CDT 02/04/2024 8:27 AM CDT Autumn Jerome MD LABORATORY Performing Organization Address [facility] Co de Phone Number [facility] [address] [address] * (ABNORMAL) CBC WITH PLATELET (02/04/2024 6:40 AM CDT) WBC 4.55 4.00 - 10.00 k/cmm [facility] RBC 3.03(L) 3.90 - 5.20 m/cmm [facility] Hgb 9.2(L) 11.5 - 15.7 g/dL [facility] Hematocrit 28.8(L) 34.0 - 45.0 % [facility] MCV 95.0 80.0 - 100.0 fL [facility] MCH 30.4 25.0 - 32.0 pg [facility] MCHC 31.9 31.0 - 36.0 g/dL [facility] RDW 13.6 11.5 - 14.5 % [facility] Plt 152 150 - 400 k/cmm [facility] MPV 10.9 6.5 - 12.5 fL [facility] Blood 02/04/2024 6:40 AM CDT 02/04/2024 8:27 AM CDT Autumn Jerome MD LABORATORY Performing Organization Address [facility] Co de Phone Number [facility] [address] [address] * (ABNORMAL) PANEL BASIC METABOLIC (BMP) (02/04/2024 6:40 AM CDT) CO2 26 22 - 30 mEq/L [facility] Glucose 76 70 - 100 mg/dL [facility] BUN 12 6 - 20 mg/dL [facility] Creatinine 0.64 0.50 - 1.00 mg/dL [facility] Calcium 7.9(L) 8.6 - 10.0 mg/dL [facility] Sodium 136 135 - 148 mEq/L [facility] Potassium 3.4(L) 3.5 - 5.3 mEq/L [facility] Chloride 102 92 - 108 mEq/L [facility] AnGap 8 8 - 16 mEq/L [facility] eGFR (2020 CKD-EPI) 102 >=60 ml/min/1.7 3m2 [facility] Comment: The estimated glomerular filtration rate (eGFR) was calculated using the CKD-EPI 2020 creatinine equation, which does not include race as a factor. This equation is validated in individuals 18 years of age and older, and eGFR is normalized to a body surface area of 1.73m^2. Blood 02/04/2024 6:40 AM CDT 02/04/2024 8:27 AM CDT Autumn Jerome MD LABORATORY Performing Organization Address [facility] Co de Phone Number [facility] [address] [address] * (ABNORMAL) PROTHROMBIN (PT) & INR (02/03/2024 8:03 AM CDT) PT 19.8(H) 9.0 - 12.5 sec [facility] INR 1.8(H) 0.8 - 1.1 [facility] Comment: Warfarin Therapeutic Range: Standard Intensity: 2.0 - 3.0 High Intensity: 2.5 - 3.5 Blood 02/03/2024 8:03 AM CDT 02/03/2024 8:48 AM CDT Enedina Austin MD LABORATORY Performing Organization Address [facility] de Phone Number [facility] [address] [address] * (ABNORMAL) PANEL HEPATIC FUNCTION (02/03/2024 8:03 AM CDT) Total Protein 5.5(L) 6.4 - 8.3 g/dL [facility] Albumin 2.2(L) 3.8 - 5.1 g/dL [facility] Bili Total 0.9 <=1.2 mg/dL [facility] Bili Direct 0.5(H) <=0.3 mg/dL [facility] Alk Phos 98 35 - 104 IU/L [facility] Comment:No reference range e stablished for patients <18 years old. ALT (SGPT) 16 <=33 IU/L [facility] AST(SGOT) 36 5 - 40 IU/L [facility] Blood 02/03/2024 8:03 AM CDT 02/03/2024 8:48 AM CDT Enedina Austin MD LABORATORY Performing Organization Address [facility] Co de Phone Number [facility] [address] [address] * (ABNORMAL) PANEL BASIC METABOLIC (BMP) (02/03/2024 8:03 AM CDT) CO2 25 22 - 30 mEq/L [facility] Glucose 95 70 - 100 mg/dL [facility] BUN 10 6 - 20 mg/dL [facility] Creatinine 0.70 0.50 - 1.00 mg/dL [facility] Calcium 7.5(L) 8.6 - 10.0 mg/dL [facility] Sodium 133(L) 135 - 148 mEq/L [facility] Potassium 3.4(L) 3.5 - 5.3 mEq/L [facility] Chloride 100 92 - 108 mEq/L [facility] AnGap 8 8 - 16 mEq/L [facility] eGFR (2020 CKD-EPI) 100 >=60 ml/min/1.7 3m2 [facility] Comment: The estimated glomerular filtration rate (eGFR) was calculated using the CKD-EPI 2020 creatinine equation, which does not include race as a factor. This equation is validated in individuals 18 years of age and older, and eGFR is normalized to a body surface area of 1.73m^2. Blood 02/03/2024 8:03 AM CDT 02/03/2024 8:48 AM CDT Enedina Austin MD LABORATORY [facility] [address] [address] * (ABNORMAL) CBC WITH PLTS/AUTO DIFF (02/03/2024 8:03 AM CDT) WBC 5.74 4.00 - 10.00 k/cmm [facility] RBC 3.08(L) 3.90 - 5.20 m/cmm [facility] Hgb 9.4(L) 11.5 - 15.7 g/dL [facility] Hematocrit 28.1(L) 34.0 - 45.0 % [facility] MCV 91.2 80.0 - 100.0 fL [facility] MCH 30.5 25.0 - 32.0 pg [facility] MCHC 33.5 31.0 - 36.0 g/dL [facility] RDW 13.6 11.5 - 14.5 % [facility] Plt 155 150 - 400 k/cmm [facility] MPV 10.6 6.5 - 12.5 fL [facility] Automated Abs Neutrophil 4.49 1.70 - 6.50 k/cmm [facility] Comment:Preliminary ANC, Fin al Result to Follow Abs Immature Granulocyte 0.02 0.00 - 0.09 k/cmm [facility] Comment:The Immature Granulo cyte Absolute count contains metamyelocytes and myelocytes. Abs Neutrophil 4.49 1.70 - 6.50 k/cmm [facility] Abs Lymphocyte 0.69(L) 0.80 - 4.00 k/cmm [facility] Abs Monocyte 0.53 0.20 - 1.00 k/cmm [facility] Abs Eosinophil 0.00 0.00 - 0.60 k/cmm [facility] Abs Basophil 0.01 0.00 - 0.20 k/cmm [facility] Blood 02/03/2024 8:03 AM CDT 02/03/2024 8:48 AM CDT Enedina Austin MD LABORATORY [facility] [address] [address] * CT RIGHT FEMUR NO IV CONTRAST (02/02/2024 10:19 PM CDT) Anatomical Region Laterality Modality Lower Extremity Computed Tomogra phy 02/02/2024 10:1 4 PM CDT Addenda Addendum by Carter Reyes MD on 02/02/2024 10:29 PM CDT ADDENDUM: 3-D reconstructions were created by the electromechanical technologist on the CT scanner and reviewed [...] perforation and infection ??Alternatives discussed: ??No treatment [place] protocol: ??Patient identity confirmed: ??Verbally with patient [...] MISCELLANEOUS BODY FLUID (02/02/2024 7:51 PM CDT) [facility] Result 1.3 [facility] Units BF g/dL [facility] Comment:The reference interv al(s) and other method performance specifications have not been established for this body fluid. The test result must be integrated into the clinical context for interpretation. Fluid 02/02/2024 7:51 PM CDT 02/02/2024 8:11 PM CDT Narrative [facility] - 02/02/2024 9:01 PM CDT fluid: Peritoneal Test: TP Humphrey Rose MD LABORATORY Performing Organization Address City/[facility]/ZIP Co de Phone Number [facility] [address] [address] * BODY FLUID CULTURE:INCLUDES GRAM STAIN (02/02/2024 7:51 PM CDT) Final Report No growth. [facility] Gram Stain Report PMN's seen. No organisms seen. [facility] Peritoneal Fluid PERITONEUM (SEROUS MEMBRANE) STRUCTURE / Unknown 02/02/2024 7:51 PM CDT 02/02/2024 8:04 PM CDT Humphrey Rose MD LAB MICROBIOLO GY Performing Organization Address City/[facility]/ZIP Co de Phone Number [facility] [address] [address] * BODY FLUID CELL COUNT/DIFF (02/02/2024 7:51 PM CDT) Fluid Type PT Peritoneal [facility] Comment:Normal reference ran ges have not been determined; clinical correlation is recommended. Volume PT Fluid 40 mL [facility] Appearance PT Hazy [facility] Color bf Yellow [facility] Rbc PT Fluid <1,000 cells/ul [facility] Nuc Ct PT Fluid 93 cells/ul [facility] Neutrophil PT Fluid 2 % [facility] Lymphocytes PT Fluid 19 % [facility] Basophil PT Fluid 1 % [facility] MONO/MACS FL 53 % [facility] Other PT Fluid 25 % [facility] Comment:Others are mesotheli al cells. Peritoneal Fluid 02/02/2024 7:51 PM CDT 02/02/2024 7:57 PM CDT Humphrey Rose MD LABORATORY [facility] [address] [address] * CT ABDOMEN/PELVIS W/IV CON (02/02/2024 6:50 [...] (02/02/2024 5:15 PM CDT) Color YELLOW YELLOW [facility] Appearance CLOUDY(A) CLEAR [facility] Urine Glucose NEGATIVE NEGATIVE mg/dL [facility] Bili UA TRACE(A) NEGATIVE [facility] Ketones TRACE(A) NEGATIVE [facility] Specific [place] 1.024 1.003 - 1.030 [facility] Blood Ur LARGE(A) Neg-Trace [facility] PH Urine 6.0 5.0 - 7.0 [facility] Protein Ur 30(A) Neg-Trace [facility] Urobilinogen >=8(A) NORMAL EU/dL [facility] Nitrite Ur NEGATIVE NEGATIVE [facility] Leuk Est SMALL(A) Neg-Trace [facility] WBC Ur 6-10(A) 0 - 5 perHPF [facility] RBC Ur >20(A) 0 - 3 perHPF [facility] SQ EPITH 0-5 0 - 5 perHPF [facility] Bacteria UA PRESENT [facility] Comment:Presence of bacteria does not necessarily indicate a UTI. The presence of bacteria can indicate a non-clean catch urine specimen. Bacteria should be used in conjunction with other UA results and clinical presentation to assist in diagnosing an infection. Urinalysis Performed at: [facility] Urine 02/02/2024 5:15 PM CDT 02/02/2024 5:18 PM CDT Humphrey Rose MD LABORATORY Performing Organization Address [facility] Co de Phone Number [address] [address] * (ABNORMAL) URINE CULTURE (02/02/2024 5:03 PM CDT) Urine Cult Greater than 100,000 organisms/ml Escherichia coli isolated.(POS) [facility] Organism ESCHERICHIA COLI(POS) [facility] Urine 02/02/2024 5:03 PM CDT 02/02/2024 [...] MD LAB MICROBIOLO GY Performing Organization Address [facility] Co de Phone Number [facility] [address] [address] * PRECAUTIONARY TUBE (02/02/2024 5:00 PM CDT) Pathologist [facility] Prec Tube Precautionary Blood Bank Specimen Received. [facility] Blood 02/02/2024 5:00 PM CDT 02/02/2024 5:11 PM CDT [place] MD LAB TRANSFUSION SERV ICES Performing Organization Address [facility] Co de Phone Number [facility] [address] [address] * LIPASE (02/02/2024 4:01 PM CDT) [facility] Lipase 13 13 - 60 IU/L [facility] Blood 02/02/2024 4:01 PM CDT 02/02/2024 7:02 PM CDT Humphrey Rose MD LABORATORY Performing Organization Address [facility] Co de Phone Number [facility] [address] [address] * (ABNORMAL) PANEL HEPATIC FUNCTION (02/02/2024 4:01 PM CDT) [facility] Total Protein 5.8(L) 6.4 - 8.3 g/dL [facility] Albumin 2.4(L) 3.8 - 5.1 g/dL [facility] Bili Total 1.1 <=1.2 mg/dL [facility] Bili Direct 0.5(H) <=0.3 mg/dL [facility] Alk Phos 107(H) 35 - 104 IU/L [facility] Comment:No reference range e stablished for patients <18 years old. ALT (SGPT) 19 <=33 IU/L [facility] AST(SGOT) 39 5 - 40 IU/L [facility] Blood 02/02/2024 4:01 PM CDT 02/02/2024 7:02 PM CDT Humphrey Rose MD LABORATORY Performing Organization Address [facility]/ZIP Co de Phone Number [facility] [address] [address] * LACTATE (LACTIC ACID) (02/02/2024 4:01 PM CDT) Lactate 1.1 0.7 - 2.1 mmol/L [facility] Blood 02/02/2024 4:01 PM CDT 02/02/2024 4:15 PM CDT Narrative [facility] - 02/02/2024 4:15 PM CDT Send specimen on ice! Humphrey Rose MD LABORATORY Performing Organization Address [facility] Co de Phone Number [facility] [address] [address] * (ABNORMAL) PROTHROMBIN (PT) & INR (02/02/2024 4:01 PM CDT) PT 18.0(H) 9.0 - 12.5 sec [facility] INR 1.6(H) 0.8 - 1.1 [facility] Comment: Warfarin Therapeutic Range: Standard Intensity: 2.0 - 3.0 High Intensity: 2.5 - 3.5 Blood 02/02/2024 4:01 PM CDT 02/02/2024 4:38 PM CDT Humphrey Rose MD LABORATORY Performing Organization Address [facility] Co de Phone Number [facility] [address] [address] * HS TROPONIN (02/02/2024 4:01 PM CDT) HS Troponin I <3 <=14 ng/L [facility] Blood 02/02/2024 4:01 PM CDT 02/02/2024 4:36 PM CDT Narrative [facility] - 02/02/2024 5:10 PM CDT If ordering as an add-on lab, you must call the lab. Humphrey Rose MD LABORATORY Performing Organization Address City/[facility]/ZIP Co de Phone Number [facility] [address] [address] * (ABNORMAL) CBC WITH PLTS/AUTO DIFF (02/02/2024 4:01 PM CDT) WBC 7.34 4.00 - 10.00 k/cmm [facility] RBC 3.08(L) 3.90 - 5.20 m/cmm [facility] Hgb 9.3(L) 11.5 - 15.7 g/dL [facility] Hematocrit 28.5(L) 34.0 - 45.0 % [facility] MCV 92.5 80.0 - 100.0 fL [facility] MCH 30.2 25.0 - 32.0 pg [facility] MCHC 32.6 31.0 - 36.0 g/dL [facility] RDW 13.5 11.5 - 14.5 % [facility] Plt 176 150 - 400 k/cmm [facility] MPV 10.2 6.5 - 12.5 fL [facility] Automated Abs Neutrophil 5.98 1.70 - 6.50 k/cmm [facility] Comment:Preliminary ANC, Fin al Result to Follow Abs Immature Granulocyte 0.03 0.00 - 0.09 k/cmm [facility] Comment:The Immature Granulo cyte Absolute count contains metamyelocytes and myelocytes. Abs Neutrophil 5.98 1.70 - 6.50 k/cmm [facility] Abs Lymphocyte 0.80 0.80 - 4.00 k/cmm [facility] Abs Monocyte 0.52 0.20 - 1.00 k/cmm [facility] Abs Eosinophil 0.00 0.00 - 0.60 k/cmm [facility] Abs Basophil 0.01 0.00 - 0.20 k/cmm [facility] Blood 02/02/2024 4:01 PM CDT 02/02/2024 4:36 PM CDT Humphrey Rose MD LABORATORY Performing Organization Address [facility]/ZIP Co de Phone Number [facility] [address] [address] * (ABNORMAL) ED CHEMISTRY LABS(NA,K,CL,CO2,GLU,CREAT,CA-IONIZED,ANION GAP) (02/02/2024 4:01 PM CDT) Pathologist [facility] Sodium 135 135 - 148 mEq/L [facility] Chloride 100 92 - 108 mEq/L [facility] AnGap 9 8 - 16 mEq/L [facility] Glucose 105(H) 70 - 100 mg/dL [facility] ICA, Actual 4.21(L) 4.40 - 5.20 mg/dL [facility] ICA, pH Corrected 4.45 4.40 - 5.20 mg/dL [facility] Creatinine 0.72 0.50 - 1.00 mg/dL [facility] BICARB 26 22 - 26 mEq/L [facility] eGFR (2020 CKD-EPI) 96 >=60 ml/min/1.7 3m2 [facility] Comment: The estimated glomerular filtration rate (eGFR) was calculated using the CKD-EPI 2020 creatinine equation, which does not include race as a factor. This equation is validated in individuals 18 years of age and older, and eGFR is normalized to a body surface area of 1.73m^2. Potassium 3.5 3.5 - 5.3 mEq/L [facility] Blood 02/02/2024 4:01 PM CDT 02/02/2024 4:15 PM CDT Humphrey Rose MD LABORATORY [facility] [address] [address] * GLYCOSYLATED HGB - A1C (02/02/2024 4:00 PM CDT) Pathologist [facility] Hemoglobin A1C 4.4 4.0 - 5.6 % [facility] Comment: Increased risk for diabetes (prediabetes): 5.7-6.4% Diabetes >=6.5% In the absence of unequivocal hyperglycemia, diagnosis requires two abnormal test results (i.e. HbA1c and glucose) or two abnormal results from specimens collected at two different timepoints. The presence of some hemoglobin variants or red cell disorders may interfere with the measurement of hemoglobin A1c (HbA1c). Estimated Average Glucose 80 68 - 114 [facility] Comment: The estimated Average Glucose (eAG) was calculated using an equation derived from a study of 507 adults with type 1, type 2, or no diabetes. Minority populations were underrepresented and children were not included. The eAG is not equivalent to a fasting glucose concentration. Blood 02/02/2024 4:00 PM CDT 02/02/2024 11:05 PM CDT Enedina Austin MD LABORATORY Performing Organization Address [facility] de Phone Number [address] [address] * ANTIBODY SCREEN (02/02/2024 4:00 PM CDT) Nicky Screen Negative [facility] Blood 02/02/2024 4:00 PM CDT 02/02/2024 10:16 PM CDT Ileana Howell APRN, CNP LAB TRANSFUSI ON SERVICES Performing Organization Address [facility] de Phone Number [address] [address] * BLOOD TYPING-ABO/RH (02/02/2024 4:00 PM CDT) ABORHG A POS [facility] Blood 02/02/2024 4:00 PM CDT 02/02/2024 10:16 PM CDT Ileana Howell APRN, CNP LAB TRANSFUSI ON SERVICES Performing Organization Address [facility] de Phone Number [address] [address] * PTT (APTT) (02/02/2024 4:00 PM CDT) APTT 33.0 25.0 - 37.0 sec [facility] Blood 02/02/2024 4:00 PM CDT 02/02/2024 5:57 PM CDT Enedina Austin MD LABORATORY Performing Organization Address [facility]/ZIP Co de Phone Number [facility] [address] [place] [address] * ED EKG (12-LEAD) (02/02/2024 3:48 PM CDT) 02/02/2024 3:48 PM CDT Impressions [facility] CVIS EKG ORDERS - 02/02/2024 3:48 PM CDT SINUS RHYTHM LOW QRS VOLTAGE IN EXTREMITY LEADS ??[QRS DEFLECTION < 0.5 mV IN LIMB LEADS] POSSIBLE ANTERIOR MYOCARDIAL INFARCTION , PROBABLY OLD [30 ms Q WAVE IN V3/V4, OR R < 0.2 mV IN V4] BORDERLINE ECG P-R Interval 184 ms QRS Interval 78 ms QT Interval 365 ms QTC Interval 414 ms P [place] -12 QRS [place] -1 T Wave [place] -1 Narrative Procedure Note Lyndon Villanueva MD - 02/02/2024 IMPRESSION SINUS RHYTHM LOW QRS VOLTAGE IN EXTREMITY LEADS [QRS DEFLECTION < 0.5 mV IN LIMBLEADS] POSSIBLE ANTERIOR MYOCARDIAL INFARCTION , PROBABLY OLD [30 ms Q WAVE INV3/V4, OR R < 0.2 mV IN V4] BORDERLINE ECG P-R Interval 184 ms QRS Interval 78 ms QT Interval 365 ms QTC Interval 414 ms P [place] -12 QRS [place] -1 T Wave [place] -1 Humphrey Rose MD EKG Performing Organization Address [facility] de Phone Number [facility] CVIS EKG ORDERS * ED US ABDOMINAL/GALLBLADDER [...] (CMS) Acute cystitis with hematuria Acute cystitis Other fracture of right femur, initial encounter for closed fracture (CMS) documented in this encounter Administered Medications Active [...] 02/06/2024 7:30 AM CDT 50 mcg nystatin [id number] unit/g powder Topical, BID, First dose on [...] Given 02/03/2024 8:42 PM CDT 100 mg documented in this encounter Active and Recently [...] Provider: Allie Alexandra RN - Reason: Patient sleeping)0548 (Given - Provider: Allie Alexandra RN)1159 (Given - Provider: Humphrey Nagel, GEOFF)1846 (Given - Provider: Humphrey Nagel, GEOFF) 0051 (Given - Provider: Allie Alexandra RN)0617 [...] Nino Simpson RN)1343 (Given - Provider: Nino Simpson RN)2036 (Given - Provider: Allie Alexandra RN) 0859 (Given - Provider: Humphrey Nagel RN)1549 (Given - Provider: Allie Alexandra RN)2004 (Given - Provider: Allie Alexandra RN) 0844 [...] Simpson RN)1757 (New Bag - Provider: Nino Simpson RN)1837 (Infusion completed - Provider: Nino Simpson RN) 0211 (New Bag - Provider: Allie Alexandra RN)0241 (Infusion completed - Provider: Allie Alexandra RN)1042 (New Bag - Provider: Humphrey Nagel RN)1154 (Infusion completed - Provider: Humphrey Nagel RN)1725 (New Bag - Provider: Humphrey Nagel RN)1949 (Infusion completed - Provider: Allie Alexandra RN) 0159 (New Bag - Provider: Allie Alexandra RN)0240 (Infusion completed - Provider: Allie Alexandra RN)1304 (New Bag - Provider: Gabrielle Manning RN)1340 (Infusion completed - Provider: Gabrielle Manning RN)1999 (Due - Provider: Gabrielle Manning RN) citalopram (CeleXA) tablet 20 mg 20 mg, Oral, DAILY, First dose on Thu02/03/24 at 0800, Until Discontinued 07 (Given - Provider: Nino Simpson RN) 0857 (Given - Provider: Humphrey Nagel RN) 0843 (Given - Provider: Gabrielle Manning RN) clotrimazole (LOTRIMIN) 1% cream Apply to: abdominal skin folds For External Use Only., Topical, BID, First dose on Thu02/04/24 at 2000, Until Discontinued 728 (Given - Provider: Nino Simpson RN)2035 (Given - Provider: Allie Alexandra RN) 0859 (Given - Provider: Humphrey Nagel RN)194 (Given - Provider: Allie Alexandra RN) 0858 (Not Given (removes Due time) - Provider: Gabrielle Manning RN - Reason: Held per nurse)1999 (Due) enoxaparin (LOVENOX) 40 mg/0.4 mL injection 40 mg (CANCELED) 40 mg, Subcutaneous, DAILY, First dose on Thu02/06/24 at 0800, Until Discontinued 0730 (Given - Provider: Nino Simpson RN) 0857 (Given - Provider: Humphery Nagel RN) 0858 (Not Given (removes Due [...] Nino Simpson RN)1342 (Given - Provider: Nino Simpson RN)203 (Given - Provider: Allie Alexandra RN) 0858 (Given - Provider: Humphrey Nagel RN)170 (Given - Provider: Humphrey Nagel RN)194 (Given [...] (Given - Provider: Allie Alexandra RN) nystatin 796059 unit/g powder Topical, BID, First dose on [...] 0858 (Given - Provider: Humphrey Nagel RN) 06 (Given - Provider: Allie Alexandra RN) polyethylene glycol 3350 (MIRALAX;GLYCOLAX) packet 17 g 17 g, Oral, DAILY, First dose on Thu02/03/24 at 0800, Until Discontinued 729 (Given - Provider: Nino Simpson RN) 0857 (Given - Provider: Humphrey Nagel RN) 0843 (Given - Provider: Gabrielle Manning RN) pramipexole (MIRAPEX) tablet 0.5 mg 0.5 mg, Oral, BID, First dose on Thu02/03/24 at 0800, Until Discontinued 730 (Given - Provider: Nino Simpson RN)2034 (Given [...] dose on Thu02/03/24 at 0800, Until Discontinued 730 (Given - Provider: Nino Simpson RN) 0858 (Given - Provider: Humphrey Nagel RN) 0844 [...] 0858 (Given - Provider: Humphrey Nagel RN) oxyCODONE (ROXICODONE) tablet 5-10 mg 5-10 mg, Oral, Q4H PRN, Starting on Thu02/02/24 at 2254, Until Discontinued, Moderate Pain (Use First), Severe Pain (Use First), 5 mg for moderate pain (4-7), 10 for severe pain (7-10) 0213 (Given - Provider: Allie Alexandra RN)0731 (Given - Provider: Nino Simpson, GEOFF)1342 (Given - Provider: Nino Simpson, GEOFF)1757 (Given - Provider: Nino Simpson, GEOFF) 0548 (Given - Provider: Allie Alexandra RN)1159 (Given - Provider: Humphrey Nagel, GEOFF)1708 (Given - Provider: Humphrey Nagel, GEOFF) 0050 (Given - Provider: Allie Alexandra RN)0652 (Given - Provider: Allie Alexandra RN)1256 (Given - Provider: Gabrielle Manning RN)1705 (Due) documented in this encounter
--- OUTSIDE RECORDS SUMMARY | 2024-02-08 17:15 | XMS_ITS | Encounter Summary ---
Author Name Unknown Organization [facility] Address [address] [address] Phone Care Team Providers Care Hot Metal Mixer Operator Helper Name Role Phone Unavailable Primary Care Provider Unavailabl e Encounter Details Date Type Department Care Team (Late st Contact Info) Description 02/04/2024 2:00 PM CDT Anesthesia Event OR P4 [address] [facility] [address] [place], [place] [phone] Malcolm Hernandez, [address] [place] [address] Michelle Robin, MINERAL SURVEYING TECHNICIAN, AIRCRAFT SHEET METAL MECHANIC [address] [place], [place] [address] Anesthesia Record Procedure Summary Procedure Name Responsible Anesthesiologist Anesthesia Start Time Anesthesia Stop Time IM KRYSTLE FEMUR (Right: Leg Upper) Events Date Time Event Comment 02/04/2024 1407 Pre-op End Meds * Agents No agents on file. * Blood No blood administrations on file. Lines, Drains, and Airways Type Details Placement Removal Peripheral IV 02/02/24; 1519; No; 20 gauge; Anterior, Right; Forearm; Placed Prior to arrival in other fac 02/02/24 1519 by Catarino Ovalles, GEOFF Peripheral IV 02/02/24; 2019; No; 20 gauge; Anterior, Left; Forearm; 1; Placed in ED 02/02/24 2019 by Shirlene Simons RN Rash 02/02/24; 2347; groin 02/02/24 2 347 by Chelsi Mehta RN Rash 02/02/24; 2348 02/02/24 2348 by Chelsi Mehta RN Wound 02/03/24; 0104; Pretibial; Left 02/03/24 0104 by Chelsi Mehta RN Wound 02/03/24; 0636; Peda l; Anterior, Right 02/03/24 0636 by Chelsi Mehta [...] OR 02/05/24 1514 by Lalit Price RN documented in this encounter Social History [...] of this encounter OR Notes * Anesthesia Preprocedure Evaluation - Malcolm Hernandez DO - 02/04/2024 1:27 PM CDT Anesthesia Pre-Evaluation Summary Statement: This is a 58 y.o. year old patient scheduled for IM KRYSTLE FEMUR (Right: Leg Upper). Anesthesia Evaluation Internal or external H&P reviewed, patient examined and changes and/or additions made as needed Anesthesia Considerations , Negative for Anesthesia complications Additional ROS/Med Hx Findings: Periprosthetic fracture right leg. Pulmonary - normal exam (+) , sleep apnea, , , , , , , , , , Neurological ROS comment: Neuropathic pain Psychiatric (+) depression/anxiety Cardiovascular - normal exam Rhythm: regular Rate: normal Endo (+) diabetes mellitus (), hypothyroidism Musculoskeletal - negative ROS HEENT - negative ROS GI (+) GERD, liver disease ROS comment: Decompensated liver cirrhosis with significant ascites. Sigmoid colon distention Hematologic/Onc /Renal/Supervisor Costuming ROS comment: Hematuria Airway Mallampati: II TM distance: >3 FB Neck ROM: full Mouth Opening: good Dental (+) chipped teeth and missing teeth OB Other Physical Exam Anesthesia Plan ASA 4 - emergent general (With arterial catheterization) intravenous induction Maintenance: Balanced Post-op Care: routine analgesia Anesthetic plan and risks discussed with patient. Plan discussed with AIRCRAFT SHEET METAL MECHANIC. Vitals: 02/04/24 0729 BP: 103/66 Pulse: 72 Resp: 16 Temp: 36.8 ??C (98.3 ??F) SpO2: 98% documented in this encounter Plan of Treatment Upcoming Encounters Date Type Department Care Team (Late st Contact Info) Description 02/18/2024 11:20 AM CDT [facility] [address] [address] Lia Mcclellan, PAMagnoliaC 701 [facility] [address] [place] [address] Other, Wheel Roller [address] [place] [address] Scheduled Discharge Disposition: Discharged to home or self care (routine discharge) documented as of this encounter Visit Diagnoses Not on filedocumented in this encounter
--- OUTSIDE RECORDS SUMMARY | 2024-02-08 17:15 | XMS_ITS | Encounter Summary ---
Author Name Unknown Organization [facility] Address [address] [place] [address] Phone Care Team Providers Care French Comber Name Role Phone Unavailable Primary Care Provider Unavailabl e Encounter Details Date Type Department Care Team (Late st Contact Info) Description 02/02/2024 Orders Only [facility] [place] [facility] Radiology Department FRED [address] [place], [place] [phone] Provider, [place] [address] Referral of patient (Primary Dx) Social History Tobacco Use Types [...] [facility] [address] [phone] Lia Mcclellan PA-C [address] [facility] [address] [place], [place] [phone] Other, Costuming Supervisor [address] [place] [address] Scheduled Discharge Disposition: Discharged to home or self care (routine discharge) documented as of this encounter Results * XR CHEST OUTSIDE FILMS (02/02/2024 12:30 PM CDT) Narrative DummyPaytonAmyv-Rvrywd-Ijydfwjqy - 02/02/2024 1:31 PM CDT Outside Film Only Outside Provider RAD OUTSIDE FILMS * XR LOWER EXTREMITY OUTSIDE FILMS (02/02/2024 12:15 PM CDT) Narrative DummyLisaUtcg-Knbtld-Frclqsrxu - 02/02/2024 1:32 PM CDT Outside Film Only Outside Provider RAD OUTSIDE FILMS * XR LOWER EXTREMITY OUTSIDE FILMS (02/02/2024 11:25 AM CDT) Narrative DummyPaytonFqdg-Opkasd-Aqwszudfa - 02/02/2024 1:32 PM CDT Outside Film Only Outside Provider RAD OUTSIDE FILMS documented in this encounter Visit Diagnoses Diagnosis Referral of patient- Primary Referral of patient without examination or treatment documented in this encounter
--- OUTSIDE RECORDS SUMMARY | 2024-02-08 17:15 | XMS_ITS | Encounter Summary ---
Author Name Unknown Organization [facility] Address [address] [place] [address] Phone Care Team Providers Care Buttermaker Continuous Churn Name Role Phone Unavailable Primary Care Provider Unavailabl e Encounter Details Date Type Department Care Team (Late st Contact Info) Description 02/03/2024 Orders Only [facility] Film Room [facility] Radiology Department FRED [address] [place], [place] [phone] Provider, [place] [address] Referral of patient (Primary Dx) Social History [...] [facility] [address] [phone] Lia Mcclellan PA-C 701 [facility] [address] [place], [place] [phone] Other, Supervisor Logging [address] [place] [address] Scheduled Discharge Disposition: Discharged to home or self care (routine discharge) documented as of this encounter Results * CT ABDOMEN/PELVIS OUTSIDE FILMS (07/08/2022 8:29 AM CDT) Narrative Payton McphersonNsht-Zbcckw-Ewlzipuzk - 02/03/2024 1:05 PM CDT Outside Film Only Outside Provider RAD OUTSIDE FILMS * CT CHEST/ABDOMEN/PELVIS OUTSIDE FILMS (09/20/2021 9:02 AM DAUB COLOR MIXER) Narrative Payton McphersonVxvg-Hrwwou-Brpdhyjwo - 02/03/2024 11:42 AM CDT Outside Film Only Outside Provider RAD OUTSIDE FILMS * CT CHEST/ABDOMEN/PELVIS OUTSIDE FILMS (05/08/2017 1:06 PM CDT) Narrative Payton McphersonIodl-Pktint-Apnalrxkx - 02/03/2024 11:43 AM CDT Outside Film Only Outside Provider RAD OUTSIDE FILMS documented in this encounter Visit Diagnoses Diagnosis Referral of patient- Primary Referral of patient without examination or treatment documented in this encounter
--- OUTSIDE RECORDS SUMMARY | 2024-02-08 17:15 | XMS_ITS | Encounter Summary ---
Author Name Unknown Organization [facility] Address [address] [place] [address] Phone Care Team Providers Care Candy Forming Machine Operator Name Role Phone Unavailable Primary Care Provider Unavailabl e Encounter Details Date Type Department Care Team (Latest Contact Info) Description 02/02/2024 Travel Social History Tobacco Use Types Packs/Day [...] [facility] [address] [address] Lia Mcclellan PA-C 701 [facility] [address] [place] [address] Other, Mash Preparatory Operator [address] [place] [address] Scheduled Discharge Disposition: Discharged to home or self care (routine discharge) documented as of this encounter Visit Diagnoses Not on filedocumented in this encounter
--- OUTSIDE RECORDS SUMMARY | 2024-02-08 17:16 | XMS_ITS | Encounter Summary ---
Author Name Unknown Organization [facility] Address [address] [place] [address] Phone Care Team Providers Care Lace And Textiles Restorer Name Role Phone Unavailable Primary Care Provider Unavailabl e Reason for Visit * Reason Comments Leg Deformity * Auth/Cert (Routine) Specialty Diagnoses / Procedures Referred By Contac t Referred To Contact ORTHOPEDICS Diagnoses Acute cystitis with hematuria Other fracture of right femur, initial encounter for closed fracture (CMS) Humphrey Rose MD [address] [place] [address] [facility] Inpt(G3) [address] [facility] [address] [place] [address] Referral ID Status Reason Start Date Expiration Date Visits Re quested Visits Authorized [id number] 1 1 Encounter Details Date Type Department Care Team (Latest Contact Info) Description 02/02/2024 3:17 PM CDT - Present Hospital Encounter [facility] Orthopaedic [address] [facility] [address] [place], [place] [address] Humphrey Rose MD [address] [place], [place] [address] Enedina Austin MD [address] [place] [address] [address] [place], [place] [address] Autumn Jerome MD [address] [place] [address] [phone] Other fracture of right femur, initial encounter for closed fracture ([facility]) Social History Tobacco Use Types Packs/Day Years [...] called to nurse, of Cathy Raymond at [facility] Patient transported back to [facility] via Bed, Accompanied by Transporter, Patient's condition [...] PLT 164 02/05/2024 0915 CR 0.58 02/07/2024 06 CR 0.61 02/06/2024 0710 Lab Results (Last 120 hours) Procedure Component Value Ref Range Date/Time URINE CULTURE [[id number]] Collected: 02/02/241702 Specimen: Urine Updated: 02/02/242204 BODY FLUID CULTURE:INCLUDES GRAM STAIN [[id number]] Collected: 02/02/241950 Specimen: Peritoneal Fluid from Peritoneum [...] Constipation # Insomnia # GERD - Continue SKIVER BOX TOE cetirizine, citalopram, gabapentin, levothyroxine, pantoprazole, PEG/senna, trazodone [...] Female at 02/07/2024 6:05 AM Charge Capture Patient Care Coordinator * Dayo Henning MD - 02/07/2024 7:58 [...] Component Value Ref Range Date/Time URINE CULTURE [[id number]] Collected: 02/02/24 170 Specimen: Urine Updated: 02/02/242204 BODY FLUID CULTURE:INCLUDES GRAM STAIN [[id number]] Collected: 02/02/241950 Specimen: Peritoneal Fluid from Peritoneum [...] Constipation # Insomnia # GERD - Continue SKIVER BOX TOE cetirizine, citalopram, gabapentin, levothyroxine, pantoprazole, PEG/senna, trazodone [...] Female at 02/06/2024 7:10 AM Charge Capture Patient Care Coordinator * Cely Buck DPM - 02/06/2024 8:46 [...] patient's care at this time. Please page commercial drone pilot resident with questions. INTERVAL ILLNESS: Patient seen [...] Component Value Ref Range Date/Time URINE CULTURE [[id number]] Collected: 02/02/241702 Specimen: Urine Updated: 02/02/242204 BODY FLUID CULTURE:INCLUDES GRAM STAIN [[id number]] Collected: 02/02/241950 Specimen: Peritoneal Fluid from Peritoneum [...] Constipation # Insomnia # GERD - Continue SKIVER BOX TOE cetirizine, citalopram, gabapentin, levothyroxine, pantoprazole, PEG/senna, trazodone [...] Female at 02/05/2024 9:15 AM Charge Capture Patient Care Coordinator * Gladys Samuels DPM - 02/05/2024 7:46 [...] continue to follow while inpatient. Please page commercial drone pilot resident with questions. Patient was discussed with commercial drone pilot staff, Dr. Samuels CHIEF COMPLAINT: Right foot [...] right femur, initial encounter for closed fracture ([facility]) 02/02/2024 CURRENT HEALTH STATUS Medications: Current Facility-Administered Medications Medication Route Frequency clotrimazole (LOTRIMIN) 1% cream Topical bid bisacodyl (DULCOLAX) suppository 10 mg Rectal daily nystatin [id number] unit/g powder Topical bid citalopram (CeleXA) tablet [...] one daughter and two grandchildren. She is Religion. When feeling well she likes to have [...] CDT Orthopaedic Surgery Progress Note 02/05/2024 S: 10/06 blood cxs from 02/02 with g+ bacilli, [...] Component Value Ref Range Date/Time URINE CULTURE [[id number]] Collected: 02/02/24 170 Specimen: Urine Updated: 02/02/242204 BODY FLUID CULTURE:INCLUDES GRAM STAIN [[id number]] Collected: 02/02/241950 Specimen: Peritoneal Fluid from Peritoneum [...] Ms. Raymond's care. Case discussed with Dr. Castorena/ID this morning in order to determine next [...] Constipation # Insomnia # GERD - Continue SKIVER BOX TOE cetirizine, citalopram, gabapentin, levothyroxine, pantoprazole, PEG/senna, trazodone [...] Female at 02/04/2024 6:40 AM Charge Capture Patient Care Coordinator * Homa Zarate MD - 02/04/2024 4:44 [...] Component Value Ref Range Date/Time URINE CULTURE [[id number]] Collected: 02/02/241702 Specimen: Urine Updated: 02/02/242204 BODY FLUID CULTURE:INCLUDES GRAM STAIN [[id number]] Collected: 02/02/241950 Specimen: Peritoneal Fluid from Peritoneum [...] new results of positive blood cx from [place] as well as one from [facility]. They arereportedly two different classes of bacteria and she has been on IV ceftriaxone since admrenu todd if relevant or true positives. 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 Used: None needed Decision Maker at Admission: Self Living Situation: Home Patient Identified Support System: Services Receiving: PIGMENT MAKING SUPERVISOR / Skilled Services ([facility] home care for OT, PT, RN) Complex Medical Needs: None Transportation Used for Discharge: stretcher Safety Concerns: None Behavioral Health Concerns: None Patient Family Goals Patient's Discharge Goal: agreeable to consider TCU in [place] Family's Discharge Goal: n/a Plan/Interventions Discharge Plan: SNF Was Patient Choice Provided?: Yes Who was Choice Provided to?: Patient Patient Information Verification Verified demographic information, including SSN, Next of Kin, and Guardianship: Yes Verified PCP: Yes If post-acute placement is needed, have vaccination status needs been addressed?: Not applicable Risks for Readmission: None Summary of pertinent information: Patient admitted in transfer from [facility] with concern for left femur fracture from a fall and sigmoid volvulus. She continues to await medical clearancefor surgery. Had patient sign FRED to get imaging pushed from both [place] and [place]. Sent FRED to both places, anticipate that imaging should be available soon. Anticipate that she will require TCU placement. She prefers [place] and has been at facilities there previously. Currently open to home care through [facility]. Will continue to follow. Sara Hdez RN, 02/03/2024 12:12 PM Sara Hdez RN, 02/03/2024 12:09 PM * uAtumn Jerome MD - 02/03/2024 8:43 AM CDT [...] Constipation # Insomnia # GERD - Continue SKIVER BOX TOE cetirizine, citalopram, gabapentin, levothyroxine, pantoprazole, PEG/senna, trazodone - HOLD oxybutynin - Check Hb A1c Subjective/Events of Past 24 Hours: Hospital Day: 1 Reports fine No nausea or vomiting No abdominal pain Objective: Physical Exam GEN: NAD, laying in bed RES: clear lungs, on wheezing, rales or rhonchi CV: r/r/r, no murmurs, rubs or gallops ABD: distended Labs reviewed Charge Capture Patient Care Coordinator * Giselle Johansen MD - 02/03/2024 4:42 [...] Component Value Ref Range Date/Time URINE CULTURE [[id number]] Collected: 02/02/241702 Specimen: Urine Updated: 02/02/242204 BODY FLUID CULTURE:INCLUDES GRAM STAIN [[id number]] Collected: 02/02/241950 Specimen: Peritoneal Fluid from Peritoneum [...] Johansen MD, 02/03/2024 12:31 PM * Patti Jones RT - 02/03/2024 1:14 AM CDT Pt [...] Constipation # Insomnia # GERD - Continue SKIVER BOX TOE cetirizine, citalopram, gabapentin, levothyroxine, pantoprazole, PEG/senna, trazodone [...] (A) NEGATIVE Ketones TRACE (A) NEGATIVE Specific [place] 1.024 1.003 - 1.030 Blood Ur LARGE (A) Neg-Trace PH Urine 6.0 5.0 - 7.0 Protein Ur 30 (A) Neg-Trace Urobilinogen >=8 (A) NORMAL EU/dL Nitrite Ur NEGATIVE NEGATIVE Leuk Est SMALL (A) Neg-Trace WBC Ur 6-10 (A) 0 - 5 perHPF RBC Ur >20 (A) 0 - 3 perHPF SQ EPITH 0-5 0 - 5 perHPF Bacteria UA PRESENT Urinalysis Performed at: [facility] BODY FLUID CELL COUNT/DIFF Result Value Ref [...] MISCELLANEOUS BODY FLUID Result Value Ref Range [facility] Result 1.3 Units BF g/dL Narrative fluid: [...] to verify the correct patient, procedure, equipment, lab support service tech and site/side marked as required. Initial or [...] and cytology examination : No Patient to [facility] for post-procedure monitoring. Patient education sheets given regarding post-care. * Humphrey Rose MD - 02/02/2024 10:03 PM CDTAssociated Order(s): Paracentesis Paracentesis Performed by: Cooper Loaiza MD Authorized by: Humphrey Rose MD Consent: Consent obtained: Verbal Consent given by: Patient Risks discussed: Bleeding, bowel perforation and infection Alternatives discussed: No treatment Revere protocol: Patient identity confirmed: Verbally with patient [...] in this encounter Consult Notes * Ashley Park, OTR/L - 02/07/2024 3:53 PM CDT OCCUPATIONAL [...] seat;tub / shower chair;hand held shower head;grab bars;receiving manager Prior Level of Function: ADLs/IADLs: Received assistance from family / friends;Received assistance from PIGMENT MAKING SUPERVISOR for hours per day / days [...] to a TCU near her home in [place] when medically stable. (See box at the [...] spent on each: Eval: 29 minutes Therapist: AUDIE Landaverde Pager: [facility] Occupational Therapy Department * Rose Marie Early, [...] femur, initial encounter for closed fracture (CMS) PT Treatment Diagnosis: Difficulty in Walking R [...] riser, and dyan lift Services at home: PIGMENT MAKING SUPERVISOR services MWF, home PT / OT / RN SUBJECTIVE Patient's Stated Goals: to get stronger and more independent with mobility Pain: / resting located in RLE 02/11 with activity located in RLE Pain interventions: [...] in near 90/90 hip/knee positioning (WFL for [facility] seating). Transfers & Bed Mobility: Supine to [...] reportedly Alycia with stand pivot transfers to [facility] (GLF during tx resulted in femur fx), has 24/7 assist from , PIGMENT MAKING SUPERVISOR services 3x/wk, and home PT / [...] viasara steady, up to chair as appropriate. SKIVER BOX TOE Appropriate: No (needs mobility progressed) Participated in goal setting and treatment planning: Patient Agrees with goals and treatment plan: Patient - Yes. Rose Marie Early, PT 02/06/2024 Pager: [facility] PT Department * Dominic Castorena MD - [...] set of blood cultures were taken at [facility] in which 2 of 2 bottles grew [...] 164 02/05/2024 0915 HGB 9.4 (L) 02/05/2024 09 CR 0.62 02/05/2024 0915 Lab Results Component Value Date/Time WBC 5.51 02/05/2024 0915 WBC 4.55 02/04/2024 0640 WBC 5.74 02/03/2024 0803 Lab Results Component Value Date/Time CR 0.62 02/05/2024 0915 CR 0.64 02/04/2024 0640 CR 0.70 02/03/2024 0803 Microbiology: OS Blood Culture, 02/01 - MSSA, healy susceptible [...] the original note were not included. Data: [facility] nurse met with patient to assess pouch [...] Podiatric Surgery Inpatient CONSULT - PGY-1 Cathy Manning Segundo : 1965 Sex: female Patient Summary: 58 [...] over the next few days. Please page commercial drone pilot resident with questions. Patient was seen with commercial drone pilot staff, Dr. Roth PROCEDURE: Risks and benefits [...] States that she follows up with a nursing specialist in [place] and has had extensive surgery of the [...] No primary care provider on file. Chuckie Rock, CASSIUS, 02/04/2024 6:22 PM FACULTY WITH RESIDENT: I [...] CWOCN - 02/04/2024 3:36 PM CDT DAP: [facility] nursing attempted to see patient x 2 today, however patient was out of the room x2. Will re-attempt at a later date. Cristela Gleason CWOCN, 02/04/2024 3:36 PM * Mindy Swan APRN, BIOFUELS PLANT OPERATIONS ENGINEER - 02/03/2024 3:00 PM CDTAssociated Order(s): CONSULT [...] RALPH, 02/03/2024 3:00 PM Palliative Medicine Available [facility] Advance Care Planning Primary Care: No primary [...] helps her at home along with a PIGMENT MAKING SUPERVISOR. States that she broke her other [...] their hobbies, activities and interests, spirituality or adventism, personal experience with end of life, and personal hopes, worries. Thisbackground is essential in understanding what is most important and how that can change throughout the course of a serious illness. This summary is an attempt to highlight that background. Social History Social History Narrative Tiny is to her , Jai. She has one daughter and two grandchildren. She is Religion. When feeling well she likes to have [...] specifically on review of CT scans from [facility] dated 07/08/2022 and [place] dated111/21/2020, it appears patient has had a chronically dilated sigmoid colon, possibly dating back [id number]. Also has known chronic constipation and neuropathy [...] c/b ascites MELD 3.0 16 Established at [facility] Gastroenterology, last seen 12/15/2013. Etiology felt to [...] cirrhosis. 09/20/2021 CT CAP with IV contrast ([place]): IMPRESSION: 1. Minimally more prominent left axillary [...] acholic cirrhosis, R TKA around 2017 in [place], [place],L femur fx s/p surgical fixation ~ 2019 at [facility], idiopathic progressive neuropathy, hypothyroidism,chronic neuropathic pain, DMII [...] - disability Lives with in house in [place], [place] ALLERGIES: Allergies Allergen Reactions Amoxicillin-Pot Clavulanate [...] Henning MD - 02/05/2024 4:06 PM CDT [facility] [id number] [facility] OPERATIVE REPORT PATIENT: Cathy Raymond : 1965 DATE OF PROCEDURE: 02/05/24 SURGEON: Dayo Henning MD - Primary PHYSICAL SECURITY SPECIALIST SURGEON: Serge Parker DO - Fellow Ian [...] Implant Name Type Inv. Item Serial No. Junior Network Administrator Lot No. LRB No. Used Action FEMORAL NAIL RETROGRADE [id number] Krystle FEMORAL NAIL RETROGRADE [id number] [employer] [id number] Right 1 Implanted 5.0X60MM 2361-5060S Screw/Antrim 5.0X60MM 2361-5060S [employer] [id number] Right 1 Implanted 5.0X70MM 2361-5070S Screw/Antrim 5.0X70MM 2361-5070S [employer] [id number] Right 1 Implanted 5.0X75MM ADV 2361-5075S Screw/Antrim 5.0X75MM ADV 2361-5075S [employer] [id number] Right 1 Implanted FREEHAND DRILL [id number] Drill bit/kiara FREEHAND DRILL [id number] [employer] [id number] Right1 Implanted 5.0X42.5MM 2360-5042S Screw/Antrim 5.0X42.5MM 2360-5042S [employer] [id number] Right 1 Implanted INDICATIONS: Cathy Raymond is a 58 y.o. female who presented to [facility] with right leg pain after a fall. [...] proximal thigh. This was performed using perfect [place] technique. A stab incision was made over [...] primary nurse, Catarino. * Ileana Howell APRN, BIOFUELS PLANT OPERATIONS ENGINEER - 02/02/2024 9:19 PM CDT Transfer of [...] T2DM, HTN who presents as transfer from [facility] for RIGHT midshaft femur fracture after mechanical [...] Wt 98.8 kg (217 lb 13 oz) NrT875% Upon assuming care, I reviewed the chart, results of studies performed during their course in the ED, re-examined the patient, and discussed their care and plan with my supervising attending. Distended abd > CT unable to r/o volvulus Medicine team paged re: CT a/p results, surgery consulted and paged ED Course as of 02/02/242133e Feb 02, [id number] Weak at home, mech [...] NEGATIVE Bili UA TRACE(!) Ketones TRACE(!) Specific [place] 1.024 Blood Ur LARGE(!) PH Urine 6.0 Protein Ur 30(!) Urobilinogen >=8(!) Nitrite Ur NEGATIVE Leuk Est SMALL(!) WBC Ur 6-10(!) RBC Ur >20(!) SQ EPITH 0-5 Bacteria UA PRESENT Urinalysis Performed at: [facility] Receiving CTX 2122 LFTs(!): Total Protein 5.8(!) [...] in real time. Please contact me via [facility] staff message if you note any errors requiring clarification. * Natacha Mcadams RN - 02/02/2024 9:16 PM CDT Traction set to 20 pounds. * Natacha Mcadams RN - 02/02/2024 9:00 PM CDT Xray at bedside * Natacha Mcadams RN - 02/02/2024 8:41 PM CDT Patient transported to [facility] for sedation for krystle placement and traction. * Enedina Austin MD - 02/02/2024 6:08 PM CDT Bus Attendant of the Day (MOD) Triage/Communication Note Sign out received from Cooper in [facility] (team center/clinic). Requested unit: G3 (choose from: any medicine floor, specific medicine floor with rationale, CaRe, RTU, MICU). Patient status: INPT. (Obs v. Inpt) Cardiac telemetry needed? (specify if remote telemetry OK). Summary of verbal sign out given by ED/clinic VICE PRESIDENT EDUCATION: Cirrhosis, right femur fracture 58yo hx of cirrhosis, transferred from [facility] for a femur fracture after a fall at home. Has 2 total knee replacement. Has displaced mid-shaft right femur fracture -- ortho has been consulted. Got ancef for right foot wound. Has UTI - getting ceftriaxone ED to do paracentesis. Enedina Austin MD, 02/02/2024 6:13 PM Staff Physician, [facility] Medicine Note is for communication only, not billing * Cooper Loaiza MD - 02/02/2024 3:32 PM CDT Images from the original note were not included. ED Provider Note Cathy Raymond : 1965 Sex: female Patient Arrival Date and Time: 02/02/2024 3:17 PM HPI 58F w/ hx etoh cirrhosis, chronic lymphedema presents as transfer from [facility] for mechanical fall after feeling legs become [...] osteo on XR. ED Course as of 02/02/242201Feb 02, 2024 160 ED EKG (12-LEAD) Nsr [...] No gallstones, negative sonographic tobin sign, ascites 1712 HS Troponin I: <3 1712 Reviewed outside records: had fall at home after losing balance, felt R knee/leg pain immediately, couldn't bear weight. Hx cirrhosis, chronic lymphedema. Blood cultures sent there. Got ancef dose for R foot wound they felt was purulent. 1717 INR(!): 1.6 1728 UA, Total(!): Color YELLOW Appearance CLOUDY(!) Urine Glucose NEGATIVE Bili UA TRACE(!) Ketones TRACE(!) Specific [place] 1.024 Blood Ur LARGE(!) PH Urine 6.0 Protein Ur 30(!) Urobilinogen >=8(!) Nitrite Ur NEGATIVE Leuk Est SMALL(!) WBC Ur 6-10(!) RBC Ur >20(!) SQ EPITH 0-5 Bacteria UA PRESENT Urinalysis Performed at: [facility] Grossly concerning for infection; will treat with [...] 02/02/2024 3:17 PM CDT BIBA as a [facility] transfer. EMS was called around 0945 for a stumble and fall. HX of ETOH with cirrohsis and ascites. Right mid-shaft with Morphine and dilaudid in [place] ED. 4 mg morphine en route. Pain rating 3 or 4/10 2 g cefazolin en route 20 RFA * Maggie Tariq RN - 02/02/2024 1:44 PM CDT Report called from [facility]. Pt is non weight bearing and lives [...] Toe Head to Toe Assessment Shift Summary [id number] Pt A&Ox4. Endorsed pain to to RLE. PRN given per mar. Pt sleeping on reassessment. Numbness to RLE [...] report. Patient abdomen very extended and hard. Regional Telecommunications Specialist notedno urine output and straight cath for 300 ml at 1400. Patient reports being incontinent at baselineand was incontinent of stool one time this shift. Regional Telecommunications Specialist placed external catheter on patient at 1700 after diuretic administration. Patient very anxious when repositioning . Wound vac failed and tag writer notified ortho provider. Provider reports that wound vac is just over pin site and can go withoutit if unable to get a new one tonight. Patients groin is raw and red and tag writer provided nystatin and lotion to area. Wound care done per order by tag writer to coccyx. Patient does not tolerate [...] Toe Head to Toe Assessment Shift Summary [id number] Pt A&Ox4. Endorsed pain to to RLE. PRN given per mar. Pt sleeping on reassessment. POD #1. Numbness to RLE has peripheral neuropathy. Other CMS intact. Wound vac to RLE -125 mmhg. No drainage. Leg elevate. Paracentesis site draining small output. Pt drinking fluids well. Pt retaining urine. Last void 1800. Straight cath output 300ml. Concentrated urine. On RA Allie Alexandra, RN, 02/07/2024 6:36 AM BP 102/47 (Cuff [...] Assessment - Nino Simpson RN - 02/06/2024 3:17 PM CDT Nursing [...] of pain. Ordered and transferred pt to [facility] mattress d/t high skin risk and current skin [...] Toe Head to Toe Assessment Shift Summary [id number] Pt Sleeping upon shift change. Endorsed pain to to RLE. PRN given per mar. Pt sleeping on reassessment. POD #0. Numbness to RLE. Other CMS intact. Leg elevated and ICE pack provided. Paracentesis site draining small output. Andrade in place draining well. Pt drinking fluids well. Pt informed tag writer she will call when she needs [...] 02/02/24 2347 -- 3 Rash 02/02/24 2348 04/30/24 2348 -- 3 Wound 02/03/24 Pretibial Left [...] small (02/05/24 0200) Stool Color: abhi colored (02/05/240) Stool Consistency: liquid (02/05/24199) Genitourinary Assessment Within Defined Limits except for: [...] -- 2 Rash 02/02/24 2347 groin 02/02/24 234 -- 2 Rash 02/02/24 2348 02/02/24 2348 [...] Jorge MD - 02/05/2024 1:31 PM CDT [facility] Immediate Post Operative Note Note written: Day [...] Implant Name Type Inv. Item Serial No. Junior Network Administrator Lot No. LRB No. Used Action FEMORAL NAIL RETROGRADE [id number] Krystle FEMORAL NAIL RETROGRADE [id number] [employer] [id number] Right 1 Implanted 5.0X60MM 2361-5060S Screw/Antrim 5.0X60MM 2361-5060S [employer] [id number] Right 1 Implanted 5.0X70MM 2361-5070S Screw/[place]trim 5.0X70MM 2361-5070S [employer] [id number] Right 1 Implanted 5.0X75MM ADV 2361-5075S Screw/[place] 5.0X75MM ADV 2361-5075S [employer] [id number] Right 1 Implanted FREEHAND DRILL [id number] Drill bit/kiara FREEHAND DRILL [id number] [employer] [id number] Right1 Implanted 5.0X42.5MM 2360-5042S Screw/[place] 5.0X42.5MM 2360-5042S [employer] [id number] Right 1 Implanted Intraoperative Findings: see op [...] check Vignesh Jorge MD Orthopaedic Surgery PGY-3 [facility] Orthopaedic Trauma Service * Nursing Assessment - [...] Rash 02/02/24 2347 groin 02/02/24 2347 -- 2 Rash 02/02/24 2348 02/02/24 2348 -- 2 Wound 02/03/24 Pretibial Left 02/03/24 0104 Pretibial 2 Wound 02/03/24 Pedal Anterior;Right 02/03/24 0636 Pedal 2 Wound 02/03/24 Ulceration Sacrum 02/03/24 1200 Sacrum 1 Urinary Catheter 02/02/24 1714 -- 2 Psychosocial Within Defined Limits * Nursing Assessment - Nereyda-Thu French RN - 02/05/2024 12:19 AM CDT Summary: 0727-2141 Nursing Assessment Head to Toe Head to Toe Assessment Shift Summary Pt is A&OX4 with VSS on RA. Pt has very distended and taut stomach, paracentesis site drained 625 mL yellow fluid from ostomy bag. NPO status maintained. Andrade catheter in place draining mili concentrated urine. Pt reports neuropathy at baseline and CMS is intact to RLE. This tag writer attempted to give CHG bath and [...] Rash 02/02/24 2347 groin 02/02/24 2347 -- 2 Rash 02/02/24 2348 02/02/24 2348 -- 2 Wound 02/03/24 Pretibial Left 02/03/24 0104 Pretibial 1 Wound 02/03/24 Pedal Anterior;Right 02/03/24 0636 Pedal 1 Wound 02/03/24 Ulceration Sacrum 02/03/24 1200 Sacrum 1 Urinary Catheter 02/02/24 1714 -- 2 Psychosocial Within Defined Limits * Nursing Assessment - Tuh Lowery RN - 02/04/2024 10:17 PM CDT Summary: [id number] Nursing Assessment Head to Toe Head to [...] length Right Antecubital 02/02/242035 -- 1 Rash 02/02/247 groin 02/02/242346 -- 1 Rash 02/02/24 2348 [...] 02/02/24 20 gauge Anterior;Left Forearm 02/02/242018 -- less than 1 Peripheral IV 02/02/24 18 gauge;1 3/4 in length Right Antecubital 02/02/242035 -- less than 1 Rash 02/02/24 2347 [...] Carter Maurer APRN, CNP, 02/03/2024 12:38 PM [facility] [facility] Department of [facility] Pager: via telemediq * Nursing Assessment - Chelsi Mehta RN - 02/03/2024 6:35 AM CDT Nursing Assessment Head to Toe Head to Toe Assessment Shift Summary Shift Summary Pt arrived to [facility] from ED AT AROUND 1130 Admitted for [...] right femur, initial encounter for closed fracture ([facility]) Humphrey Rose MD, 02/02/2024 4:55 PM documented in this encounter Plan of Treatment Upcoming Encounters Date Type Department Care Team (Late st Contact Info) Description 02/18/2024 11:20 AM CDT [facility] [address] [address] Lia Mcclellan PA-C [address] [address] Other, [address] Truck [employer] [address] [place] [address] Scheduled Discharge Disposition: Discharged to home or [...] Routine 02/04/2024 9:50 PM CDT PC CULTURE,BACTERIAL,DEFI [place],AEROBIC;BLOOD Timed 02/04/2024 6:44 PM CDT PC CULTURE,BACTERIAL,DEFI [place],AEROBIC;BLOOD Routine 02/04/2024 6:44 PM CDT POTASSIUM Timed [...] Routine 02/04/2024 6:40 AM CDT PC CULTURE,BACTERIAL,DEFI [place],AEROBIC;BLOOD Timed 02/03/2024 12:13 PM CDT PC CULTURE,BACTERIAL,DEFI [place],AEROBIC;BLOOD Timed 02/03/2024 12:06 PM CDT PC LAB [...] POC Glucose 82 70 - 100 mg/dL [facility] Blood 02/08/2024 12:3 0 PM CDT Humphrey Rose MD LABORATORY [facility] [address] [place] [address], [place] * IR PARACENTESIS (02/08/2024 11:45 AM [...] to verify the correct patient, procedure, equipment, lab support service tech and site/side marked as required. Initial or [...] (PT) & INR (02/08/2024 8:19 AM CDT) Pathologist [facility] PT 29.3(H) 9.0 - 12.5 sec [facility] INR 2.6(H) 0.8 - 1.1 [facility] Comment: Warfarin Therapeutic Range: Standard Intensity: 2.0 - 3.0 High Intensity: 2.5 - 3.5 Blood 02/08/2024 8:19 AM CDT 02/08/2024 8:35 AM CDT Autumn Jerome MD LABORATORY [facility] [address] [address] * (ABNORMAL) PANEL HEPATIC FUNCTION (02/08/2024 8:19 AM CDT) Total Protein 6.1(L) 6.4 - 8.3 g/dL [facility] Albumin 2.5(L) 3.8 - 5.1 g/dL [facility] Bili Total 1.0 <=1.2 mg/dL [facility] Bili Direct 0.5(H) <=0.3 mg/dL [facility] Alk Phos 125(H) 35 - 104 IU/L [facility] Comment:No reference range e stablished for patients <18 years old. ALT (SGPT) 6 <=33 IU/L [facility] AST(SGOT) 30 5 - 40 IU/L [facility] Blood 02/08/2024 8:19 AM CDT 02/08/2024 8:35 AM CDT Autumn Jerome MD LABORATORY [facility] [address] [address] * (ABNORMAL) PANEL BASIC METABOLIC (BMP) (02/08/2024 8:19 AM CDT) Sodium 134(L) 135 - 148 mEq/L [facility] Potassium 3.8 3.5 - 5.3 mEq/L [facility] CO2 29 22 - 30 mEq/L [facility] AnGap 5(L) 8 - 16 mEq/L [facility] Glucose 91 70 - 100 mg/dL [facility] BUN 9 6 - 20 mg/dL [facility] Creatinine 0.59 0.50 - 1.00 mg/dL [facility] Chloride 100 92 - 108 mEq/L [facility] Calcium 8.1(L) 8.6 - 10.0 mg/dL [facility] eGFR (2020 CKD-EPI) 104 >=60 ml/min/1.7 3m2 [facility] Comment: The estimated glomerular filtration rate (eGFR) was calculated using the CKD-EPI 2020 creatinine equation, which does not include race as a factor. This equation is validated in individuals 18 years of age and older, and eGFR is normalized to a body surface area of 1.73m^2. Blood 02/08/2024 8:19 AM CDT 02/08/2024 8:35 AM CDT Autumn Jerome MD LABORATORY [address] [address] * (ABNORMAL) POC GLUCOSE (02/07/2024 6:41 PM CDT) POC Glucose 134(H) 70 - 100 mg/dL [facility] Blood 02/07/2024 6:41 PM CDT Humphrey Rose MD LABORATORY Performing Organization Address City/[facility]/ZIP Co de Phone Number [facility] POINT OF [address] [address], * POC GLUCOSE (02/07/2024 12:24 PM CDT) POC Glucose 99 70 - 100 mg/dL [facility] Blood 02/07/2024 12:2 4 PM CDT Humphrey Rose MD LABORATORY Performing Organization Address City/[facility] Co de Phone Number [facility] POINT OF [address] [address], * PHOSPHORUS (02/07/2024 6:05 AM CDT) Phosphorus 3.2 2.5 - 4.5 mg/dL [facility] Blood 02/07/2024 6:05 AM CDT 02/07/2024 7:28 AM CDT Autumn Jerome MD LABORATORY [address] [address] * MAGNESIUM (02/07/2024 6:05 AM CDT) Magnesium 2.0 1.6 - 2.6 mg/dL [facility] Blood 02/07/2024 6:05 AM CDT 02/07/2024 7:28 AM CDT Autumn Jerome MD LABORATORY Performing Organization Address [facility] Co de Phone Number [facility] [address] [address] * (ABNORMAL) PANEL HEPATIC FUNCTION (02/07/2024 6:05 AM CDT) Total Protein 5.7(L) 6.4 - 8.3 g/dL [facility] Albumin 2.3(L) 3.8 - 5.1 g/dL [facility] Bili Total 0.9 <=1.2 mg/dL [facility] Bili Direct na <=0.3 mg/dL [facility] Comment:BILID = 0.4. Accurac y of result suspect due to hemolysis. Alk Phos 116(H) 35 - 104 IU/L [facility] Comment:No reference range e stablished for patients <18 years old. ALT (SGPT) 9 <=33 IU/L [facility] AST(SGOT) na 5 - 40 IU/L [facility] Comment:AST = 37. Accuracy o f result suspect due to hemolysis. Blood 02/07/2024 6:05 AM CDT 02/07/2024 7:28 AM CDT Autumn Jerome MD LABORATORY Performing Organization Address [facility] Co de Phone Number [facility] [address] [address] * (ABNORMAL) CBC WITH PLATELET (02/07/2024 6:05 AM CDT) WBC 9.53 4.00 - 10.00 k/cmm [facility] RBC 3.19(L) 3.90 - 5.20 m/cmm [facility] Hgb 9.5(L) 11.5 - 15.7 g/dL [facility] Hematocrit 29.8(L) 34.0 - 45.0 % [facility] MCV 93.4 80.0 - 100.0 fL [facility] MCH 29.8 25.0 - 32.0 pg [facility] MCHC 31.9 31.0 - 36.0 g/dL [facility] RDW 13.7 11.5 - 14.5 % [facility] Plt 149(L) 150 - 400 k/cmm [facility] MPV 11.1 6.5 - 12.5 fL [facility] NRBC 0.3(H) 0.0 - 0.0 /100WBC [facility] Blood 02/07/2024 6:05 AM CDT 02/07/2024 7:26 AM CDT Autumn Jerome MD LABORATORY Performing Organization Address City/[facility]/ZIP Co de Phone Number [facility] [address] [address] * (ABNORMAL) PANEL BASIC METABOLIC (BMP) (02/07/2024 6:05 AM CDT) CO2 23 22 - 30 mEq/L [facility] AnGap 10 8 - 16 mEq/L [facility] Glucose 87 70 - 100 mg/dL [facility] Creatinine 0.58 0.50 - 1.00 mg/dL [facility] Potassium 5.2 3.5 - 5.3 mEq/L [facility] eGFR (2020 CKD-EPI) 104 >=60 ml/min/1.7 3m2 [facility] Comment: The estimated glomerular filtration rate (eGFR) was calculated using the CKD-EPI 2020 creatinine equation, which does not include race as a factor. This equation is validated in individuals 18 years of age and older, and eGFR is normalized to a body surface area of 1.73m^2. Sodium 135 135 - 148 mEq/L [facility] BUN 11 6 - 20 mg/dL [facility] Calcium 7.9(L) 8.6 - 10.0 mg/dL [facility] Chloride 102 92 - 108 mEq/L [facility] Blood 02/07/2024 6:05 AM CDT 02/07/2024 7:28 AM CDT Autumn Jerome MD LABORATORY Performing Organization Address City/[facility]/ZIP Co de Phone Number [facility] [address] [address] * (ABNORMAL) POC GLUCOSE (02/06/2024 6:08 PM CDT) POC Glucose 124(H) 70 - 100 mg/dL [facility] Blood 02/06/2024 6:08 PM CDT Humphrey Rose MD LABORATORY Performing Organization Address [facility] Co de Phone Number [facility]ARE [address] [place] [address], * POC GLUCOSE (02/06/2024 11:57 AM CDT) POC Glucose 98 70 - 100 mg/dL [facility] POINT OF [facility] Blood 02/06/2024 11:5 7 AM CDT Humphrey Rose MD LABORATORY Performing Organization Address [facility] Co de Phone Number [facility]ARE [address] [place] [address], * (ABNORMAL) PROTHROMBIN (PT) & INR (02/06/2024 7:10 AM CDT) Pathologist [facility] PT 18.3(H) 9.0 - 12.5 sec [facility] INR 1.6(H) 0.8 - 1.1 [facility] Comment: Warfarin Therapeutic Range: Standard Intensity: 2.0 - 3.0 High Intensity: 2.5 - 3.5 Blood 02/06/2024 7:10 AM CDT 02/06/2024 7:28 AM CDT Autumn Jerome MD LABORATORY Performing Organization Address City/[facility] Co de Phone Number [facility] [address] [address] * (ABNORMAL) PANEL HEPATIC FUNCTION (02/06/2024 7:10 AM CDT) Total Protein 5.6(L) 6.4 - 8.3 g/dL [facility] Albumin 2.3(L) 3.8 - 5.1 g/dL [facility] Bili Total 0.8 <=1.2 mg/dL [facility] Bili Direct 0.4(H) <=0.3 mg/dL [facility] Alk Phos 101 35 - 104 IU/L [facility] Comment:No reference range e stablished for patients <18 years old. ALT (SGPT) 12 <=33 IU/L [facility] AST(SGOT) 33 5 - 40 IU/L [facility] Blood 02/06/2024 7:10 AM CDT 02/06/2024 7:28 AM CDT Autumn Jerome MD LABORATORY [facility] [address] [place] [address] * (ABNORMAL) PANEL BASIC METABOLIC (BMP) (02/06/2024 7:10 AM CDT) CO2 26 22 - 30 mEq/L [facility] AnGap 5(L) 8 - 16 mEq/L [facility] Glucose 105(H) 70 - 100 mg/dL [facility] Creatinine 0.61 0.50 - 1.00 mg/dL [facility] Sodium 135 135 - 148 mEq/L [facility] Potassium 4.4 3.5 - 5.3 mEq/L [facility] eGFR (2020 CKD-EPI) 103 >=60 ml/min/1.7 3m2 [facility] Comment: The estimated glomerular filtration rate (eGFR) was calculated using the CKD-EPI 2020 creatinine equation, which does not include race as a factor. This equation is validated in individuals 18 years of age and older, and eGFR is normalized to a body surface area of 1.73m^2. BUN 11 6 - 20 mg/dL [facility] Calcium 8.1(L) 8.6 - 10.0 mg/dL [facility] Chloride 104 92 - 108 mEq/L [facility] Blood 02/06/2024 7:10 AM CDT 02/06/2024 7:28 AM CDT Lia Mcclellan PA-C LABORATORY [facility] [address] [place] [address] * (ABNORMAL) HEMOGLOBIN (02/06/2024 7:10 AM CDT) Hgb 8.8(L) 11.5 - 15.7 g/dL [facility] Blood 02/06/2024 7:10 AM CDT 02/06/2024 7:28 AM CDT Lia Mcclellan PA-C LABORATORY Performing Organization Address City/[facility]/ZIP Co de Phone Number [address] [address] * (ABNORMAL) POC GLUCOSE (02/06/2024 6:06 AM CDT) POC Glucose 119(H) 70 - 100 mg/dL [facility] Blood 02/06/2024 6:06 AM CDT Humphrey Rose MD LABORATORY [facility] POINT OF [address] [address], * (ABNORMAL) POC GLUCOSE (02/06/2024 12:09 AM CDT) POC Glucose 102(H) 70 - 100 mg/dL [facility] Blood 02/06/2024 12:0 9 AM CDT Humphrey Rose MD LABORATORY [facility] POINT OF [address] [address], * (ABNORMAL) POC GLUCOSE (02/05/2024 3:57 PM CDT) POC Glucose 112(H) 70 - 100 mg/dL [facility] Blood 02/05/2024 3:57 PM CDT Humphrey Rose MD LABORATORY [facility] [address] [place] [address], [place] * XR C ARM OVER 3 [...] ADMIN) (02/05/2024 1:19 PM CDT) Unit Number [id number] [facility] Product Code [id number] [facility] Blood Expiration Date [id number] [facility] Blood Type 6200 [facility] Blood Type (TEXT) APOS [facility] Other 02/05/2024 1:19 PM CDT 02/05/2024 1:16 PM CDT Marcus Hanna MD BLOOD BANK ORDERABLE S (BLOOD ADMIN) Performing Organization Address [facility]/ZIP Co de Phone Number [facility] [place] [address] * POC GLUCOSE (02/05/2024 11:21 AM CDT) POC Glucose 92 70 - 100 mg/dL [facility] Blood 02/05/2024 11:2 1 AM CDT Humphrey Rose MD LABORATORY Performing Organization Address City/[facility] Co de Phone Number [facility] [address] [place] [address], * WOUND CULTURE:GRAM STAIN OPTIONAL (02/05/2024 10:00 AM CDT) Final Report Duplicate order. Patient account credited. [facility] Gram Stain Report Few PMN's seen. No organisms seen. [facility] Swab STRUCTURE OF RIGHT FOOT / Unknown 02/05/2024 10:00 AM CDT 02/05/2024 10:25 AM CDT Narrative [facility] - 02/05/2024 2:53 PM CDT Purulent drainage. Gram Stain please, aerobic, anaerobic Do you want a gram stain: Yes Autumn Jerome MD LAB MICROBIOLOGY Performing Organization Address [facility] Co de Phone Number [facility] [address] [address] * (ABNORMAL) PROTHROMBIN (PT) & INR (02/05/2024 9:15 AM CDT) PT 16.9(H) 9.0 - 12.5 sec [facility] INR 1.5(H) 0.8 - 1.1 [facility] Comment: Warfarin Therapeutic Range: Standard Intensity: 2.0 - 3.0 High Intensity: 2.5 - 3.5 Blood 02/05/2024 9:15 AM CDT 02/05/2024 9:43 AM CDT Autumn Jerome MD LABORATORY Performing Organization Address [facility] de Phone Number [facility] [address] [address] * (ABNORMAL) PANEL HEPATIC FUNCTION (02/05/2024 9:15 AM CDT) Total Protein 5.5(L) 6.4 - 8.3 g/dL [facility] Albumin 2.2(L) 3.8 - 5.1 g/dL [facility] Bili Total 0.7 <=1.2 mg/dL [facility] Bili Direct 0.4(H) <=0.3 mg/dL [facility] Alk Phos 101 35 - 104 IU/L [facility] Comment:No reference range e stablished for patients <18 years old. ALT (SGPT) 13 <=33 IU/L [facility] AST(SGOT) 33 5 - 40 IU/L [facility] Blood 02/05/2024 9:15 AM CDT 02/05/2024 9:43 AM CDT Autumn Jerome MD LABORATORY Performing Organization Address [facility] Co de Phone Number [facility] [address] [address] * (ABNORMAL) CBC WITH PLATELET (02/05/2024 9:15 AM CDT) WBC 5.51 4.00 - 10.00 k/cmm [facility] RBC 3.11(L) 3.90 - 5.20 m/cmm [facility] Hgb 9.4(L) 11.5 - 15.7 g/dL [facility] Hematocrit 28.9(L) 34.0 - 45.0 % [facility] MCV 92.9 80.0 - 100.0 fL [facility] MCH 30.2 25.0 - 32.0 pg [facility] MCHC 32.5 31.0 - 36.0 g/dL [facility] RDW 13.4 11.5 - 14.5 % [facility] Plt 164 150 - 400 k/cmm [facility] MPV 10.2 6.5 - 12.5 fL [facility] Blood 02/05/2024 9:15 AM CDT 02/05/2024 9:43 AM CDT Autumn Jerome MD LABORATORY [facility] [address] [place] [address] * (ABNORMAL) PANEL BASIC METABOLIC (BMP) (02/05/2024 9:15 AM CDT) CO2 25 22 - 30 mEq/L [facility] Glucose 112(H) 70 - 100 mg/dL [facility] BUN 12 6 - 20 mg/dL [facility] Creatinine 0.62 0.50 - 1.00 mg/dL [facility] Calcium 7.8(L) 8.6 - 10.0 mg/dL [facility] Sodium 134(L) 135 - 148 mEq/L [facility] Potassium 4.1 3.5 - 5.3 mEq/L [facility] Chloride 102 92 - 108 mEq/L [facility] AnGap 7(L) 8 - 16 mEq/L [facility] eGFR (2020 CKD-EPI) 103 >=60 ml/min/1.7 3m2 [facility] Comment: The estimated glomerular filtration rate (eGFR) was calculated using the CKD-EPI 2020 creatinine equation, which does not include race as a factor. This equation is validated in individuals 18 years of age and older, and eGFR is normalized to a body surface area of 1.73m^2. Blood 02/05/2024 9:15 AM CDT 02/05/2024 9:43 AM CDT Autumn Jerome MD LABORATORY Performing Organization Address [facility] Co de Phone Number [facility] [place] [address] * (ABNORMAL) POC GLUCOSE (02/05/2024 6:02 AM CDT) POC Glucose 106(H) 70 - 100 mg/dL [facility] CARE Blood 02/05/2024 6:02 AM CDT Humphrey Rose MD LABORATORY Performing Organization Address [facility] de Phone Number [facility] POINT OF CARE [address] [place] [address] * (ABNORMAL) POC GLUCOSE (02/04/2024 11:58 PM CDT) POC Glucose 122(H) 70 - 100 mg/dL [facility] POINT [facility] CARE Blood 02/04/2024 11:5 8 PM CDT Humphrey Rose MD LABORATORY Performing Organization Address [facility] de Phone Number [facility] POINT OF [address] * (ABNORMAL) WOUND CULTURE:GRAM STAIN OPTIONAL (02/04/2024 10:44 PM CDT) Final Report Moderate Methicillin sensitive Staphylococcus aureus (MSSA) isolated. Methicillin susceptible by PBP2a. Rare Staphylococcus epidermidis isolated. (POS) [facility] Organism METHICILLIN SENSITIVE STAPHYLOCOCCUS AUREUS (MSSA)(POS) [facility] Organism STAPHYLOCOCCUS EPIDERMIDIS(POS) [facility] Gram Stain Report Few PMN's seen. No organisms seen. [facility] Swab STRUCTURE OF RIGHT FOOT / Unknown 02/04/2024 10:44 PM CDT 02/05/2024 9:20 AM CDT Narrative [facility] - 02/07/2024 9:52 AM CDT Do [...] Jerome MD LAB MICROBIOLOGY Performing Organization Address City/[facility] Co de Phone Number [address] [address] * HELD MICRO SPECIMEN (02/04/2024 10:44 PM CDT) Final Report Microbiology specimen received in lab with no orders. Add-on order must be placed within 24 hours. If no orders placed, specimen will be discarded. [facility] Swab STRUCTURE OF RIGHT FOOT / Unknown 02/04/2024 10:44 PM CDT 02/04/2024 10:45 PM CDT Narrative [facility] - 02/04/2024 10:46 PM CDT Epic message sent to Autumn Jerome at 02/04/2024 22:46:13 CDT by Solitario Mckinnon MLS. Autumn Jerome MD LAB MICROBIOLOGY Performing Organization Address City/[facility] Co de Phone Number [address] [address] * POC GLUCOSE (02/04/2024 9:50 PM CDT) POC Glucose 94 70 - 100 mg/dL [facility] Blood 02/04/2024 9:50 PM CDT Humphrey Rose MD LABORATORY Performing Organization Address City/[facility]/ZIP Co de Phone Number [facility] - POINT OF CARE [address] [place] [address], * POTASSIUM (02/04/2024 1:17 PM CDT) Potassium 4.3 3.5 - 5.3 mEq/L [facility] Blood 02/04/2024 1:17 PM CDT 02/04/2024 1:33 PM CDT Autumn Jerome MD LABORATORY Performing Organization Address [facility] Co de Phone Number [facility] [place] [address] * ANTIBODY SCREEN (02/04/2024 1:17 PM CDT) Nicky Screen Negative [facility] Blood 02/04/2024 1:17 PM CDT 02/04/2024 1:34 PM CDT Solitario Ha APRN, CRNA LAB TRANSFUSI ON SERVICES Performing Organization Address [facility] Co de Phone Number [facility] [place] [address] * BLOOD TYPING-ABO/RH (02/04/2024 1:17 PM CDT) ABORHG A POS [facility] Blood 02/04/2024 1:17 PM CDT 02/04/2024 1:34 PM CDT Solitario Ha APRN [employer] LAB TRANSFUSI ON SERVICES Performing Organization Address [facility] Co de Phone Number [facility] [address] [address] * (ABNORMAL) PROTHROMBIN (PT) & INR (02/04/2024 6:40 AM CDT) PT 16.2(H) 9.0 - 12.5 sec [facility] INR 1.4(H) 0.8 - 1.1 [facility] Comment: Warfarin Therapeutic Range: Standard Intensity: 2.0 - 3.0 High Intensity: 2.5 - 3.5 Blood 02/04/2024 6:40 AM CDT 02/04/2024 8:27 AM CDT Autumn Jerome MD LABORATORY Performing Organization Address City/[facility] Co de Phone Number [facility] [address] [address] * (ABNORMAL) PANEL HEPATIC FUNCTION (02/04/2024 6:40 AM CDT) Total Protein 5.5(L) 6.4 - 8.3 g/dL [facility] Albumin 2.2(L) 3.8 - 5.1 g/dL [facility] Bili Total 0.8 <=1.2 mg/dL [facility] Bili Direct 0.5(H) <=0.3 mg/dL [facility] Alk Phos 96 35 - 104 IU/L [facility] Comment:No reference range e stablished for patients <18 years old. ALT (SGPT) 15 <=33 IU/L [facility] AST(SGOT) 37 5 - 40 IU/L [facility] Blood 02/04/2024 6:40 AM CDT 02/04/2024 8:27 AM CDT Autumn Jerome MD LABORATORY Performing Organization Address [facility] Co de Phone Number [facility] [address] [phone] * (ABNORMAL) CBC WITH PLATELET (02/04/2024 6:40 AM CDT) WBC 4.55 4.00 - 10.00 k/cmm [facility] RBC 3.03(L) 3.90 - 5.20 m/cmm [facility] Hgb 9.2(L) 11.5 - 15.7 g/dL [facility] Hematocrit 28.8(L) 34.0 - 45.0 % [facility] MCV 95.0 80.0 - 100.0 fL [facility] MCH 30.4 25.0 - 32.0 pg [facility] MCHC 31.9 31.0 - 36.0 g/dL [facility] RDW 13.6 11.5 - 14.5 % [facility] Plt 152 150 - 400 k/cmm [facility] MPV 10.9 6.5 - 12.5 fL [facility] Blood 02/04/2024 6:40 AM CDT 02/04/2024 8:27 AM CDT Autumn Jerome MD LABORATORY [facility] [address] [address] * (ABNORMAL) PANEL BASIC METABOLIC (BMP) (02/04/2024 6:40 AM CDT) CO2 26 22 - 30 mEq/L [facility] Glucose 76 70 - 100 mg/dL [facility] BUN 12 6 - 20 mg/dL [facility] Creatinine 0.64 0.50 - 1.00 mg/dL [facility] Calcium 7.9(L) 8.6 - 10.0 mg/dL [facility] Sodium 136 135 - 148 mEq/L [facility] Potassium 3.4(L) 3.5 - 5.3 mEq/L [facility] Chloride 102 92 - 108 mEq/L [facility] AnGap 8 8 - 16 mEq/L [facility] eGFR (2020 CKD-EPI) 102 >=60 ml/min/1.7 3m2 [facility] Comment: The estimated glomerular filtration rate (eGFR) was calculated using the CKD-EPI 2020 creatinine equation, which does not include race as a factor. This equation is validated in individuals 18 years of age and older, and eGFR is normalized to a body surface area of 1.73m^2. Blood 02/04/2024 6:40 AM CDT 02/04/2024 8:27 AM CDT Autumn Jerome MD LABORATORY Performing Organization Address [facility] Co de Phone Number [facility] [address] [address] * (ABNORMAL) PROTHROMBIN (PT) & INR (02/03/2024 8:03 AM CDT) PT 19.8(H) 9.0 - 12.5 sec [facility] INR 1.8(H) 0.8 - 1.1 [facility] Comment: Warfarin Therapeutic Range: Standard Intensity: 2.0 - 3.0 High Intensity: 2.5 - 3.5 Blood 02/03/2024 8:03 AM CDT 02/03/2024 8:48 AM CDT Enedina Austin MD LABORATORY Performing Organization Address [facility] Co de Phone Number [facility] [address] [address] * (ABNORMAL) PANEL HEPATIC FUNCTION (02/03/2024 8:03 AM CDT) Pathologist [facility] Total Protein 5.5(L) 6.4 - 8.3 g/dL [facility] Albumin 2.2(L) 3.8 - 5.1 g/dL [facility] Bili Total 0.9 <=1.2 mg/dL [facility] Bili Direct 0.5(H) <=0.3 mg/dL [facility] Alk Phos 98 35 - 104 IU/L [facility] Comment:No reference range e stablished for patients <18 years old. ALT (SGPT) 16 <=33 IU/L [facility] AST(SGOT) 36 5 - 40 IU/L [facility] Blood 02/03/2024 8:03 AM CDT 02/03/2024 8:48 AM CDT Enedina Austin MD LABORATORY Performing Organization Address [facility] Co de Phone Number [facility] [address] [address] * (ABNORMAL) PANEL BASIC METABOLIC (BMP) (02/03/2024 8:03 AM CDT) CO2 25 22 - 30 mEq/L [facility] Glucose 95 70 - 100 mg/dL [facility] BUN 10 6 - 20 mg/dL [facility] Creatinine 0.70 0.50 - 1.00 mg/dL [facility] Calcium 7.5(L) 8.6 - 10.0 mg/dL [facility] Sodium 133(L) 135 - 148 mEq/L [facility] Potassium 3.4(L) 3.5 - 5.3 mEq/L [facility] Chloride 100 92 - 108 mEq/L [facility] AnGap 8 8 - 16 mEq/L [facility] eGFR (2020 CKD-EPI) 100 >=60 ml/min/1.7 3m2 [facility] Comment: The estimated glomerular filtration rate (eGFR) was calculated using the CKD-EPI 2020 creatinine equation, which does not include race as a factor. This equation is validated in individuals 18 years of age and older, and eGFR is normalized to a body surface area of 1.73m^2. Blood 02/03/2024 8:03 AM CDT 02/03/2024 8:48 AM CDT Enedina Austin MD LABORATORY [facility] [address] [place] [phone] * (ABNORMAL) CBC WITH PLTS/AUTO DIFF (02/03/2024 8:03 AM CDT) WBC 5.74 4.00 - 10.00 k/cmm [facility] RBC 3.08(L) 3.90 - 5.20 m/cmm [facility] Hgb 9.4(L) 11.5 - 15.7 g/dL [facility] Hematocrit 28.1(L) 34.0 - 45.0 % [facility] MCV 91.2 80.0 - 100.0 fL [facility] MCH 30.5 25.0 - 32.0 pg [facility] MCHC 33.5 31.0 - 36.0 g/dL [facility] RDW 13.6 11.5 - 14.5 % [facility] Plt 155 150 - 400 k/cmm [facility] MPV 10.6 6.5 - 12.5 fL [facility] Automated Abs Neutrophil 4.49 1.70 - 6.50 k/cmm [facility] Comment:Preliminary ANC, Fin al Result to Follow Abs Immature Granulocyte 0.02 0.00 - 0.09 k/cmm [facility] Comment:The Immature Granulo cyte Absolute count contains metamyelocytes and myelocytes. Abs Neutrophil 4.49 1.70 - 6.50 k/cmm [facility] Abs Lymphocyte 0.69(L) 0.80 - 4.00 k/cmm [facility] Abs Monocyte 0.53 0.20 - 1.00 k/cmm [facility] Abs Eosinophil 0.00 0.00 - 0.60 k/cmm [facility] Abs Basophil 0.01 0.00 - 0.20 k/cmm [facility] Blood 02/03/2024 8:03 AM CDT 02/03/2024 8:48 AM CDT Enedina Austin MD LABORATORY Performing Organization Address City/State/[facility] Co de Phone Number [facility] [address] [address] * CT RIGHT FEMUR NO IV CONTRAST (02/02/2024 10:19 PM CDT) Anatomical Region Laterality Modality Lower Extremity Computed Tomogra phy 02/02/2024 10:1 4 PM CDT Addenda Addendum by Carter Reyes MD on 02/02/2024 10:29 PM CDT ADDENDUM: 3-D reconstructions were created by the optometric technologist on the CT scanner and reviewed [...] perforation and infection ??Alternatives discussed: ??No treatment [place] protocol: ??Patient identity confirmed: ??Verbally with patient [...] MISCELLANEOUS BODY FLUID (02/02/2024 7:51 PM CDT) [facility] Result 1.3 [facility] Units BF g/dL [facility] Comment:The reference interv al(s) and other method performance specifications have not been established for this body fluid. The test result must be integrated into the clinical context for interpretation. Fluid 02/02/2024 7:51 PM CDT 02/02/2024 8:11 PM CDT Narrative [facility] - 02/02/2024 9:01 PM CDT fluid: Peritoneal Test: TP Humphrey Rose MD LABORATORY [facility] [address] [place] [phone] * BODY FLUID CULTURE:INCLUDES GRAM STAIN (02/02/2024 7:51 PM CDT) Final Report No growth. [facility] Gram Stain Report PMN's seen. No organisms seen. [facility] Peritoneal Fluid PERITONEUM (SEROUS MEMBRANE) STRUCTURE / Unknown 02/02/2024 7:51 PM CDT 02/02/2024 8:04 PM CDT Humphrey Rose MD LAB MICROBIOLO GY Performing Organization Address [facility] Co de Phone Number [facility] [address] [address] * BODY FLUID CELL COUNT/DIFF (02/02/2024 7:51 PM CDT) Fluid Type PT Peritoneal [facility] Comment:Normal reference ran ges have not been determined; clinical correlation is recommended. Volume PT Fluid 40 mL [facility] Appearance PT Hazy [facility] Color bf Yellow [facility] Rbc PT Fluid <1,000 cells/ul [facility] Nuc Ct PT Fluid 93 cells/ul [facility] Neutrophil PT Fluid 2 % [facility] Lymphocytes PT Fluid 19 % [facility] Basophil PT Fluid 1 % [facility] MONO/MACS FL 53 % [facility] Other PT Fluid 25 % [facility] Comment:Others are mesotheli al cells. Peritoneal Fluid 02/02/2024 7:51 PM CDT 02/02/2024 7:57 PM CDT Humphrey Rose MD LABORATORY Performing Organization Address [facility] Co de Phone Number [facility] [address] [address] * CT ABDOMEN/PELVIS W/IV CON (02/02/2024 6:50 [...] (02/02/2024 5:15 PM CDT) Color YELLOW YELLOW [facility] Appearance CLOUDY(A) CLEAR [facility] Urine Glucose NEGATIVE NEGATIVE mg/dL [facility] Bili UA TRACE(A) NEGATIVE [facility] Ketones TRACE(A) NEGATIVE [facility] Specific [place] 1.024 1.003 - 1.030 [facility] Blood Ur LARGE(A) Neg-Trace [facility] PH Urine 6.0 5.0 - 7.0 [facility] Protein Ur 30(A) Neg-Trace [facility] Urobilinogen >=8(A) NORMAL EU/dL [facility] Nitrite Ur NEGATIVE NEGATIVE [facility] Leuk Est SMALL(A) Neg-Trace [facility] WBC Ur 6-10(A) 0 - 5 perHPF [facility] RBC Ur >20(A) 0 - 3 perHPF [facility] SQ EPITH 0-5 0 - 5 perHPF [facility] Bacteria UA PRESENT [facility] Comment:Presence of bacteria does not necessarily indicate a UTI. The presence of bacteria can indicate a non-clean catch urine specimen. Bacteria should be used in conjunction with other UA results and clinical presentation to assist in diagnosing an infection. Urinalysis Performed at: [facility] Urine 02/02/2024 5:15 PM CDT 02/02/2024 5:18 PM CDT Humphrey Rose MD LABORATORY [facility] [address] [address] * (ABNORMAL) URINE CULTURE (02/02/2024 5:03 PM CDT) Urine Cult Greater than 100,000 organisms/ml Escherichia coli isolated.(POS) [facility] Organism ESCHERICHIA COLI(POS) [facility] Urine 02/02/2024 5:03 PM CDT 02/02/2024 [...] MD LAB MICROBIOLO GY Performing Organization Address [facility] Co de Phone Number [facility] [address] [address] * PRECAUTIONARY TUBE (02/02/2024 5:00 PM CDT) Pathologist [facility] Prec Tube Precautionary Blood Bank Specimen Received. [facility] Blood 02/02/2024 5:00 PM CDT 02/02/2024 5:11 PM CDT Raven Rock MD LAB TRANSFUSION SERV ICES Performing Organization Address [facility] Co de Phone Number [facility] [address] [address] * LIPASE (02/02/2024 4:01 PM CDT) [facility] [address] Lipase 13 13 - 60 IU/L [facility] Blood 02/02/2024 4:01 PM CDT 02/02/2024 7:02 PM CDT Humphrey Rose MD LABORATORY Performing Organization Address [facility] de Phone Number [facility] [address] [address] * (ABNORMAL) PANEL HEPATIC FUNCTION (02/02/2024 4:01 PM CDT) [facility] [address] Total Protein 5.8(L) 6.4 - 8.3 g/dL [facility] Albumin 2.4(L) 3.8 - 5.1 g/dL [facility] Bili Total 1.1 <=1.2 mg/dL [facility] Bili Direct 0.5(H) <=0.3 mg/dL [facility] Alk Phos 107(H) 35 - 104 IU/L [facility] Comment:No reference range e stablished for patients <18 years old. ALT (SGPT) 19 <=33 IU/L [facility] AST(SGOT) 39 5 - 40 IU/L [facility] Blood 02/02/2024 4:01 PM CDT 02/02/2024 7:02 PM CDT Humphrey Rose MD LABORATORY Performing Organization Address [facility] Co de Phone Number [facility] [address] [address] * LACTATE (LACTIC ACID) (02/02/2024 4:01 PM CDT) Lactate 1.1 0.7 - 2.1 mmol/L [facility] Blood 02/02/2024 4:01 PM CDT 02/02/2024 4:15 PM CDT Narrative [facility] - 02/02/2024 4:15 PM CDT Send specimen on ice! Humphrey Rose MD LABORATORY Performing Organization Address [facility] Co de Phone Number [facility] [address] [address] * (ABNORMAL) PROTHROMBIN (PT) & INR (02/02/2024 4:01 PM CDT) Pathologist [facility] PT 18.0(H) 9.0 - 12.5 sec [facility] INR 1.6(H) 0.8 - 1.1 [facility] Comment: Warfarin Therapeutic Range: Standard Intensity: 2.0 - 3.0 High Intensity: 2.5 - 3.5 Blood 02/02/2024 4:01 PM CDT 02/02/2024 4:38 PM CDT Humphrey Rose MD LABORATORY Performing Organization Address [facility] Co de Phone Number [facility] [address] [address] * HS TROPONIN (02/02/2024 4:01 PM CDT) HS Troponin I <3 <=14 ng/L [facility] Blood 02/02/2024 4:01 PM CDT 02/02/2024 4:36 PM CDT Narrative [facility] - 02/02/2024 5:10 PM CDT If ordering as an add-on lab, you must call the lab. Humphrey Rose MD LABORATORY [facility] [address] [place] [phone] * (ABNORMAL) CBC WITH PLTS/AUTO DIFF (02/02/2024 4:01 PM CDT) WBC 7.34 4.00 - 10.00 k/cmm [facility] RBC 3.08(L) 3.90 - 5.20 m/cmm [facility] Hgb 9.3(L) 11.5 - 15.7 g/dL [facility] Hematocrit 28.5(L) 34.0 - 45.0 % [facility] MCV 92.5 80.0 - 100.0 fL [facility] MCH 30.2 25.0 - 32.0 pg [facility] MCHC 32.6 31.0 - 36.0 g/dL [facility] RDW 13.5 11.5 - 14.5 % [facility] Plt 176 150 - 400 k/cmm [facility] MPV 10.2 6.5 - 12.5 fL [facility] Automated Abs Neutrophil 5.98 1.70 - 6.50 k/cmm [facility] Comment:Preliminary ANC, Fin al Result to Follow Abs Immature Granulocyte 0.03 0.00 - 0.09 k/cmm [facility] Comment:The Immature Granulo cyte Absolute count contains metamyelocytes and myelocytes. Abs Neutrophil 5.98 1.70 - 6.50 k/cmm [facility] Abs Lymphocyte 0.80 0.80 - 4.00 k/cmm [facility] Abs Monocyte 0.52 0.20 - 1.00 k/cmm [facility] Abs Eosinophil 0.00 0.00 - 0.60 k/cmm [facility] Abs Basophil 0.01 0.00 - 0.20 k/cmm [facility] Blood 02/02/2024 4:01 PM CDT 02/02/2024 4:36 PM CDT Humphrey Rose MD LABORATORY Performing Organization Address [facility] Co de Phone Number [facility] [address] [address] * (ABNORMAL) ED CHEMISTRY LABS(NA,K,CL,CO2,GLU,CREAT,CA-IONIZED,ANION GAP) (02/02/2024 4:01 PM CDT) Sodium 135 135 - 148 mEq/L [facility] Chloride 100 92 - 108 mEq/L [facility] AnGap 9 8 - 16 mEq/L [facility] Glucose 105(H) 70 - 100 mg/dL [facility] ICA, Actual 4.21(L) 4.40 - 5.20 mg/dL [facility] ICA, pH Corrected 4.45 4.40 - 5.20 mg/dL [facility] Creatinine 0.72 0.50 - 1.00 mg/dL [facility] BICARB 26 22 - 26 mEq/L [facility] eGFR (2020 CKD-EPI) 96 >=60 ml/min/1.7 3m2 [facility] Comment: The estimated glomerular filtration rate (eGFR) was calculated using the CKD-EPI 2020 creatinine equation, which does not include race as a factor. This equation is validated in individuals 18 years of age and older, and eGFR is normalized to a body surface area of 1.73m^2. Potassium 3.5 3.5 - 5.3 mEq/L [facility] Blood 02/02/2024 4:01 PM CDT 02/02/2024 4:15 PM CDT Humphrey Rose MD LABORATORY Performing Organization Address [facility]/ZIP Co de Phone Number [facility] [address] [address] * GLYCOSYLATED HGB - A1C (02/02/2024 4:00 PM CDT) Hemoglobin A1C 4.4 4.0 - 5.6 % [facility] Comment: Increased risk for diabetes (prediabetes): 5.7-6.4% Diabetes >=6.5% In the absence of unequivocal hyperglycemia, diagnosis requires two abnormal test results (i.e. HbA1c and glucose) or two abnormal results from specimens collected at two different timepoints. The presence of some hemoglobin variants or red cell disorders may interfere with the measurement of hemoglobin A1c (HbA1c). Estimated Average Glucose 80 68 - 114 [facility] Comment: The estimated Average Glucose (eAG) was calculated using an equation derived from a study of 507 adults with type 1, type 2, or no diabetes. Minority populations were underrepresented and children were not included. The eAG is not equivalent to a fasting glucose concentration. Blood 02/02/2024 4:00 PM CDT 02/02/2024 11:05 PM CDT Enedina Austin MD LABORATORY Performing Organization Address City/[facility] Co de Phone Number [facility] [address] [address] * ANTIBODY SCREEN (02/02/2024 4:00 PM CDT) Pathologist [facility] Nicky Screen Negative [facility] Blood 02/02/2024 4:00 PM CDT 02/02/2024 10:16 PM CDT Ileana Howell APRN, CNP LAB TRANSFUSI ON SERVICES Performing Organization Address [facility] Co de Phone Number [facility] [address] [address] * BLOOD TYPING-ABO/RH (02/02/2024 4:00 PM CDT) Pathologist [facility] ABORHG A POS [facility] Blood 02/02/2024 4:00 PM CDT 02/02/2024 10:16 PM CDT Ileana Howell APRN, CNP LAB TRANSFUSI ON SERVICES Performing Organization Address [facility] Co de Phone Number [facility] [address] [address] * PTT (APTT) (02/02/2024 4:00 PM CDT) [facility] [address] APTT 33.0 25.0 - 37.0 sec [facility] Blood 02/02/2024 4:00 PM CDT 02/02/2024 5:57 PM CDT Enedina Austin MD LABORATORY Performing Organization Address [facility] Co de Phone Number [facility] [address] [address] * ED EKG (12-LEAD) (02/02/2024 3:48 PM CDT) 02/02/2024 3:48 PM CDT Impressions [facility] CVIS EKG ORDERS - 02/02/2024 3:48 PM CDT SINUS RHYTHM LOW QRS VOLTAGE IN EXTREMITY LEADS ??[QRS DEFLECTION < 0.5 mV IN LIMB LEADS] POSSIBLE ANTERIOR MYOCARDIAL INFARCTION , PROBABLY OLD [30 ms Q WAVE IN V3/V4, OR R < 0.2 mV IN V4] BORDERLINE ECG P-R Interval 184 ms QRS Interval 78 ms QT Interval 365 ms QTC Interval 414 ms P Olney -12 QRS Olney -1 T Wave Olney -1 Narrative Procedure Note Lyndon Villanueva MD - 02/02/2024 IMPRESSION SINUS RHYTHM LOW QRS VOLTAGE IN EXTREMITY LEADS [QRS DEFLECTION < 0.5 mV IN LIMBLEADS] POSSIBLE ANTERIOR MYOCARDIAL INFARCTION , PROBABLY OLD [30 ms Q WAVE INV3/V4, OR R < 0.2 mV IN V4] BORDERLINE ECG P-R Interval 184 ms QRS Interval 78 ms QT Interval 365 ms QTC Interval 414 ms P Olney -12 QRS Olney -1 T Wave Olney -1 Humphrey Rose MD EKG Performing Organization Address [facility] Co de Phone Number [facility] CVIS EKG ORDERS * ED US ABDOMINAL/GALLBLADDER [...] (CMS) Acute cystitis with hematuria Acute cystitis documented in this encounter Administered Medications Active [...] 02/06/2024 7:30 AM CDT 50 mcg nystatin 390819 unit/g powder Topical, BID, First dose on [...] Rate Site albumin (human) (HUMAN ALBUMIN GRIFOLS) 25% injection 6.25 g 6.25 g, Intravenous, Q20 MIN PRN, Starting on Thu02/08/24 at 1114, Until Thu02/08/24 at 1147, Per Paracentesis protocol New Bag 02/08/2024 11:30 AM CDT 12.5 g New Bag 02/08/2024 11:22 AM CDT 12.5 g cefTRIAXone (ROCEPHIN) 2 g in NaCl 0.9% 100 mL IVPB 2 g, Indication (Select One): Infection - Suspected, SITE (Select all that apply): Bloodstream, GI/Intra-abdominal, Genitourinary, Cultures Ordered? Yes, Intravenous, ONE TIME, 1 dose, On Thu02/02/24 at 1730 New Bag 02/02/2024 7:03 PM CDT 2 g 200 mL/hr cefTRIAXone (ROCEPHIN) 2 g in NaCl 0.9% 100 mL IVPB 2 g, Indication (Select One): Infection - Suspected, SITE (Select all that apply): Skin/Soft Tissue, Cultures Ordered? No, Intravenous, Q24H, First dose (after last modification) on Thu02/03/24 at 0800, Until Discontinued New Bag 02/05/2024 8:19 AM CDT 2 g 200 mL/hr New Bag 02/04/2024 7:58 AM CDT 2 g 200 mL/hr New Bag 02/03/2024 8:57 AM CDT 2 g 200 mL/hr enoxaparin (LOVENOX) 40 mg/0.4 mL injection 40 mg 40 mg, Subcutaneous, DAILY, First dose on Thu02/06/24 at 0800, Until Discontinued Given 02/07/2024 8:57 AM CDT 40 mg Abdominal Tissue Given 02/06/2024 7:30 AM CDT 40 mg Ab dominal Tissue HYDROmorphone PF (DILAUDID) 1 mg/mL injection 0.4 mg 0.4 mg, IV Push, PACU PRN Q5MIN, 5 doses, Starting on Thu02/05/24 at 1517, Until 02/06/24 at 1425, Severe Pain (Use First) Given 02/05/2024 4:19 PM CDT 0.4 mg HYDROmorphone PF (DILAUDID) 1 mg/mL injection 0.5 mg 0.5 mg, IV Push, ONE TIME, 1 dose, On Thu02/02/24 at 1630 Given 02/02/2024 4:54 PM CDT 0.5 mg HYDROmorphone PF (DILAUDID) 1 mg/mL injection 0.5 mg 0.5 mg, IV Push, ONE TIME, 1 dose, On Thu02/02/24 at 1915 Given 02/02/2024 7:52 PM CDT 0.5 mg HYDROmorphone PF (DILAUDID) 1 mg/mL injection 0.5 mg 0.5 mg, IV Push, Q4H PRN, Starting on Thu02/02/24 at 2254, Until Thu02/08/24 at 0919, Severe Pain (Use Second) , breakthrough pain after PO oxycodone Given 02/07/2024 8:58 AM CDT 0.5 mg Given 02/06/2024 8:37 PM CDT 0.5 mg Given 02/06/2024 11:07 AM CDT 0.5 mg iohexol (OMNIPAQUE) 350 mg/mL injection IV Push, RAD ONE TIME AUTO ACKNOWLEDGE, 1 dose, On Thu02/02/24 at 1855 Given 02/02/2024 6:51 PM CDT 85 mL Left Arm ondansetron (ZOFRAN) 4 mg/2 mL injection 8 mg 8 mg, IV Push, ONE TIME, 1 dose, On Thu02/02/24 at 2055 Given 02/02/2024 8:43 PM CDT 8 mg phytonadione (VITAMIN K) tablet 5 mg 5 mg, Oral, ONE TIME, 1 dose, On Thu02/02/24 at 2335 Given 02/03/2024 3:49 AM CDT 5 mg potassium chloride (K-DUR) tablet 20 mEq 20 mEq, Oral, ONE TIME, 1 dose, On Thu02/03/24 at 1505 Given 02/03/2024 4:43 PM CDT 20 mEq potassium chloride (K-DINA) powder 40 mEq 40 mEq, Oral, ONE TIME, 1 dose, On Thu02/04/24 at 1035 Given 02/04/2024 11:03 AM CDT 40 mEq potassium chloride IVPB 10 mEq 10 mEq, Intravenous, Q1H, Administer over 60 Minutes, First dose on Thu02/04/24 at 1100, Last dose on Thu02/04/24 at 1200 New Bag 02/04/2024 12:36 PM CDT 10 mEq New Bag 02/04/2024 11:03 AM CDT 10 mEq propofol (DIPRIVAN) 200 mg/20mL injection 30 mg 30 mg, IV Push, ONE TIME, 1 dose, On Thu02/02/24 at 2054 Given 02/02/2024 8:52 PM CDT 30 mg propofol (DIPRIVAN) 200 mg/20mL injection 70 mg 70 mg, IV Push, ONE TIME, 1 dose, On Thu02/02/24 at 2054 Given 02/02/2024 8:44 PM CDT 70 mg documented in this encounter Active and [...] dose on Thu02/02/24 at 2205, Until Discontinued 730 (Given - Provider: Nino Simpson RN)1343 (Given - Provider: Nino Simpson RN)203 (Given - Provider: Allie Alexandra RN) 0859 (Given - Provider: Humphrey Nagel RN)154 (Given - Provider: Allie Alexandra RN)2003 (Given - Provider: Allie Alexandra RN) 0844 (Given - Provider: Gabrielle Manning RN)1304 (Given - Provider: Gabrielle Manning RN)1999 (Due) ceFAZolin (ANCEF) IVPB 2 g 2 g, Indication (Select One): Infection - Confirmed, SITE (Select all that apply): Bloodstream, Genitourinary, Cultures Ordered? Yes, Intravenous, Q 8H, First dose on Thu02/05/24 at 1730, Until Discontinued 020 (New Bag - Provider: Allie Alexandra RN)0310 (Infusion completed - Provider: Allie Alexandra RN)1031 (New Bag - Provider: Nino Simpson RN)1135 (Infusion completed - Provider: Nino Simpson, GEOFF)1757 (New Bag - Provider: Nino Simpson, GEOFF)1837 (Infusion completed - Provider: Nino Simpson, GEOFF) 0211 (New Bag - Provider: Allie Alexandra RN)0241 (Infusion completed - Provider: Allie Alexandra RN)1042 (New Bag - Provider: Humphrey Nagel, GEOFF)1154 (Infusion completed - Provider: Humphrey Nagel, GEOFF)1725 (New Bag - Provider: Humphrey Nagel RN)1949 [...] Topical, BID, First dose on Thu02/04/24 at 1999, Until Discontinued 728 (Given - Provider: Nino [...] modification) on Thu02/03/24 at 0800, Until Discontinued 730 (Given - Provider: Nino Simpson RN)1342 (Given - Provider: Nino Simpson RN)2034 (Given [...] dose on Thu02/03/24 at 0730, Until Discontinued 729 (Given - Provider: Nino Simpson RN) 0857 (Given - Provider: Humphrey Nagel RN) 0652 (Given - Provider: Allie Alexandra RN) nystatin 107026 unit/g powder Topical, BID, First dose on Thu02/03/24 at 1800, Until Discontinued 729 (Given - Provider: Nino Simpson RN)2035 (Given [...] Discontinued 0731 (Given - Provider: Nino Simpson RN)2034 (Given - Provider: Allie Alexandra RN) 0858 (Given - Provider: Humphrey Nagel RN)194 (Given - Provider: Allie Alexandra RN) 0843 (Given - Provider: Gabrielle Manning RN)1999 (Due) spironolactone (ALDACTONE) tablet 50 mg 50 mg, Oral, DAILY, First dose on Thu02/07/24 at 1455, Until Discontinued 170 (Given - Provider: Humphrey Nagel RN) 0843 [...] Oral, BEDTIME, First dose on Thu02/03/24 at 1999, Until Discontinued 2036 (Not Given (removes Due [...] oxycodone 0229 (Given - Provider: Allie Alexandra RN)1107 (Given - Provider: Nino Simpson RN)2037 (Given - Provider: Allie Alexandra RN) 0858 [...] Simpson RN)1342 (Given - Provider: Nino Simpson RN)1757 (Given - Provider: Nino Simpson RN) 0548 (Given - Provider: Allie Alexandra RN)1159 (Given - Provider: Humphrey Nagel RN)1708 (Given - Provider: Humphrey Nagel RN) 0050 (Given - Provider: Allie Alexandra RN)0652 (Given - Provider: Allie Alexandra RN)1256 (Given - Provider: Gabrielle Manning RN)1705 (Due) documented in this encounter
--- OUTSIDE RECORDS SUMMARY | 2024-02-08 17:17 | XMS_ITS | Encounter Summary ---
Author Name Unknown Organization [facility] Address [address] [place] [address]. [place] [address] Care Team Providers Care Joiner Helper Name Role Phone Dexter Sykes MD Unavailable [phone] Siva Hearn MD Unavailable [phone] Nikos Ventura Primary Care Provider Unavailabl Radha Luis RN Unavailable Unavailable Jacob Hernandez MD Unavailable [phone] Ronn Howard MD Unavailable [phone] [place] [address] Primary Care Provider Luis Mock PA-C Unavailable Joanna Pulido MD Unavailable [phone] Elissa Barnes Primary Care Provider Encounter Details Date Type Department Care Team (Late st Contact Info) Description 01/31/2020 Telephone [facility] 1st Floor, [place] [address] [place] [phone] Jacob Hernandez MD [address] [place] [address] Social History Tobacco Use Types [...] Time 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 Source: [facility]. 10/03/2019 documented as of this encounter Care Teams Joiner Helper Relationship Specialty Start Date End Date Nikos Ventura [address] [address] PCP - General Family Practice 11/11/16 01/21/[address] [address] PCP - General 01/22/21 08/27/21 Elissa Barnes [address] [place] [address] PCP - General Physician Inside Horticultural Specialty Grower 08/28/21 Dexter Sykes MD [address] [address] 09/15/16 Siva Hearn MD [address] [address] Neurology 09/15/16 Radha Espinoza, GEOFF Registered Nurse Neurology 12/15/16 Jacob Hernandez MD [address] [place] [address] Assigned Neuroscience Provider 07/27/20 Ronn [place] [id number] [place] [address] Assigned Musculoskeletal Provider 12/09/20 02/09/21 Luis Mock PA-C [id number] [address] Assigned Musculoskeletal Provider 02/10/21 08/08/22 Joanna Pulido MD [address] [place], [place] [address] Assigned Cancer Care Provider 04/28/21 04/24/23 documented as of this encounter
--- OUTSIDE RECORDS SUMMARY | 2024-02-08 17:17 | XMS_ITS | Encounter Summary ---
Author Name Unknown Organization [facility] Address [address] [place] [address]. [place] [address] Care Team Providers Care Sports Administrator Name Role Phone Dexter Sykes MD Unavailable [phone] Siva Hearn MD Unavailable [phone] Radha Espinoza RN Unavailable Unavailable Jacob Hernandez MD Unavailable [phone] Elissa Barnes Primary Care Provider [phone] Reason for Visit * Reason Onset Date Comments Procedure 02/04/2024 Request to cance clarence [facility] procedure Encounter Details Date Type Department Care Team (Late st Contact Info) Description 02/04/2024 Telephone [facility] [address] [place] [address] None Procedure (Request to cancel [facility] procedure) Social History Tobacco Use Types Packs/Day Years Used Date Smoking Tobacco: Former Cigarettes Q uit: 10/09/1992 Passive Smoke Exposure: Current Smokeless Tobacco: Never Alcohol Use Standard Drinks/Week [...] encounter Miscellaneous Notes * Telephone Encounter - Berenice Lara - 02/04/2024 8:41 AM CDT The patient's spouse Jai called on the patient's behalf to cancel the 02/15/[address] Anderson at [facility]. The patient has a broken femur and is undergoing surgery. The procedure was scheduled through [facility] in the OR. The dental scheduler provided the patient's spouse with [facility]'s number & transferred him to their scheduling line. 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 Source: [facility]. 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 documented as of this encounter Care Teams Sports Administrator Relationship Specialty Start Date End Date Elissa Barnes [address] [place] [address] PCP - General Physician Subway Repair Supervisor 08/28/21 Dexter Sykes MD [facility] NEUROLOG[facility] [address] [address] 09/15/16 Siva Hearn MD [facility] [address] [address] Neurology 09/15/16 Radha Espinoza, RN Registered Nurse Neurology 12/15/16 Jacob Hernandez MD [address] [place] [address] Assigned Neuroscience Provider 07/27/20 documented as of this encounter
--- OUTSIDE RECORDS SUMMARY | 2024-02-08 17:17 | XMS_ITS | Encounter Summary ---
Author Name Unknown Organization [facility] Address [facility] [place] [address] Care Team Providers Care Respiratory Scientist Name Role Phone Dexter Sykes MD Unavailable [phone] Siva Hearn MD Unavailable [phone] Radha Espinoza RN Unavailable Unavailable Jacob Hernandez MD Unavailable [phone] Joanna Pulido MD Unavailable [phone] Elissa Barnes Primary Care Provider [phone] Reason for Visit * Reason Onset Date Comments Orders 04/22/2023 labs Encounter Details Date Type Department Care Team (Late st Contact Info) Description 04/22/2023 Telephone [facility] 1st Floor, [facility] [address] [phone] Jacob Hernandez MD [address] [place] [address] Orders (labs) Social History Tobacco Use Types [...] 1:55 PM CDT Spoke with Maryse at [facility]. Orders faxed accordingly (fax [phone]). Giselle Britt, RN * Telephone Encounter - Brittany Abad - 04/22/2023 1:30 PM CDT [facility] Call Center Phone Message May a detailed message be left on voicemail: yes Reason for Call: Other: Maryse from [facility] is calling asking about the lab orders. 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 Source: [facility]. 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 documented as of this encounter Care Teams Respiratory Scientist Relationship Specialty Start Date End Date Elissa Barnes [address] [place] [address] PCP - General Physician Yacht Master 08/28/21 Dexter Sykes MD [facility] CLINIC OF NEUROLOGY [address] [facility] [address] [place] [address] 09/15/16 Siva Hearn MD [facility] OF NEUROLOGY [address] [place] [address] [place] [address] Neurology 09/15/16 Radha Epsinoza, RN Registered Nurse Neurology 12/15/16 Jacob Hernandez MD [address] [place], [place] [address] Assigned Neuroscience Provider 07/27/20 Joanna Pulido MD [address] [place], [place] [address] Assigned Cancer Care Provider 04/28/21 04/24/23 documented as of this encounter
--- OUTSIDE RECORDS SUMMARY | 2024-02-08 17:17 | XMS_ITS | Encounter Summary ---
Author Name Unknown Organization [facility] Address [address] [place] [address]. [place] [address] Care Team Providers Care Net Sql Developer Name Role Phone Dexter Sykes MD Unavailable [phone] Siva Hearn MD Unavailable [phone] Nikos Ventura Primary Care Provider Unavailabl Radha Luis RN Unavailable Unavailable Jacob Hernandez MD Unavailable [phone] Ronn Howard MD Unavailable [phone] [facility] Primary Care Provider Luis Mock PA-C Unavailable [phone] Joanna Pulido MD Unavailable [phone] Elissa Barnes Primary Care Provider [phone] Reason for Visit * Reason Onset Date Comments Orders 05/10/2020 infusion order Encounter Details Date Type Department Care Team (Late st Contact Info) Description 05/10/2020 Telephone [facility] Neurology [address] [facility] [address] [place] [address] Jacob Hernandez MD [address] [place] [address] Orders (infusion order) Social History Tobacco [...] infusions. 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 Source: [facility]. 10/03/2019 documented as of this encounter Care Teams Net Sql Developer Relationship Specialty Start Date End Date Audrey Riccardo [place] [address] [address] PCP - General Family Practice 11/11/16 01/21/21 [facility] [address] [place] [address] PCP - General 01/22/21 08/27/21 Elissa Barnes [address] [place] [address] PCP - General Physician Music Internship 08/28/21 Dexter Sykes MD [place] [address] [address] 09/15/16 Siva Hearn MD [place] [address] [address] Neurology 09/15/16 Radha Espinoza, GEOFF Registered Nurse Neurology 12/15/16 Jacob Hernandez MD [address] [place] [address] Assigned Neuroscience Provider 07/27/20 [place] [address] [address] Assigned Musculoskeletal Provider 12/09/20 02/09/21 Luis Mock PAMagnoliaC [address] [facility] [address] [place] [address] Assigned Musculoskeletal Provider 02/10/21 08/08/22 Joanna Pulido MD [address] [place] [address] Assigned Cancer Care Provider 04/28/21 04/24/23 documented as of this encounter
--- OUTSIDE RECORDS SUMMARY | 2024-02-08 17:17 | XMS_ITS | Encounter Summary ---
Author Name Unknown Organization [facility] Address [address] [place] [address]. [address] Care Team Providers Care Business Services Sales Representative Name Role Phone Dexter Sykes MD Unavailable Siva Hearn MD Unavailable [phone] Nikos Ventura Primary Care Provider Unavailabl Radha Luis RN Unavailable Unavailable Jacob Hernandez MD Unavailable [phone] Ronn Howard MD Unavailable [phone] [facility] Primary Care Provider Luis Mock PA-C Unavailable [phone] Joanna Pulido MD Unavailable [phone] Elissa Barnes Primary Care Provider Encounter Details Date Type Department Care Team (Late st Contact Info) Description 09/20/2020 Telephone [facility] [address] [facility] [phone] Jacob Hernandez MD [address] [place] [address] Social History Tobacco Use Types [...] COVID-19? 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 Hernandez updated new CT order which will be faxed to [facility] (fax [phone]). Giselle Britt RN LIFT CUTTER * Telephone Encounter - Shannon Mtz - 09/20/2020 10:47 AM CST Nat calling to state that CT order needs to be updated. Per Nat, the order was made as with and without contrast, but facility needs the order to be with contrast. Please fax new order [phone]. 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 Source: [facility]. 10/03/2019 Assessment Noted Time PHQ-9 Depression Total Score: 8 09/04/20 20 1:10 PM TOP LIFT CUTTER documented as of this encounter Care Teams Business Services Sales Representative Relationship Specialty Start Date End Date Nikos Ventura [facility] CLINIC OF NEUROLOGY [facility] [address] [address] PCP - General Family Practice 11/11/16 01/21/21 [facility] [address] [place] [address] PCP - General 01/22/21 08/27/21 Elissa Barnes [address] [place] [address] PCP - General Physician Information Clerk Brokerage 08/28/21 Dexter Sykes MD [facility] OF NEUROLOGY [address] [facility] [address] [place] [address] 09/15/16 Siva Hearn MD [facility] OF NEUROLOGY [address] [facility] [address] [place] [address] Neurology 09/15/16 Radha Espinoza, RN Registered Nurse Neurology 12/15/16 Jacob Hernandez MD [address] [place] [address] Assigned Neuroscience Provider 07/27/20 [place] [address] [address] Assigned Musculoskeletal Provider 12/09/20 02/09/21 Luis Mock, PA-C [address] [address] Assigned Musculoskeletal Provider 02/10/21 08/08/22 Joanna Pulido MD [address] [place] [address] Assigned Cancer Care Provider 04/28/21 04/24/23 documented as of this encounter
--- OUTSIDE RECORDS SUMMARY | 2024-02-08 17:17 | XMS_ITS | Encounter Summary ---
Author Name Unknown Organization [place] Address [facility] [place] [address] Care Team Providers Care It Technical Support Specialist Name Role Phone Dexter Sykes MD Unavailable [phone] Siva Hearn MD Unavailable [phone] Nikos Ventura Primary Care Provider Unavailabl Radha Luis RN Unavailable Unavailable Jacob Hernandez MD Unavailable [phone] Ronn Howard MD Unavailable [phone] [place] [address] Primary Care Provider Luis Mock PA-C Unavailable Joanna Pulido MD Unavailable [phone] Elissa Barnes Primary Care Provider Reason for Visit * Reason Onset Date Comments Call Back 09/19/2020 Encounter Details Date Type Department Care Team ([facility] st Contact Info) Description 09/19/2020 Telephone [facility] 1st Floor, [facility] R102 [id number] [place] [phone] Jacob Hernandez MD [address] [place], [place] [address] Call Back Social History Tobacco Use Types [...] COVID-19? Unable to assess 09/04/2020 1:06 PM TOWER DIRECTOR documented as of this encounter Miscellaneous Notes * Telephone Encounter - Giselle Britt RN - 09/20/2020 10:[address] (04/2018) for patient was ordered w/ contrast. Radiologist at [facility] (phone [phone]) would like current CT order to match in order to compare images. Gave VO for contrast only. [facility] also needs imaging from patient's 2018 CT to be sent over. Provided [place] with imaging fax number (fax [phone]) so they can request images. 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 Source: [facility]. 10/03/2019 Assessment Noted Time PHQ-9 Depression Total Score: 8 09/04/20 20 1:10 PM TOWER DIRECTOR documented as of this encounter Care Teams It Technical Support Specialist Relationship Specialty Start Date End Date Nikos Ventura [facility] [address] [facility] [address] [place] [id number] PCP - General Family Practice 11/11/16 01/21/21 [facility] [address] [place] [address] PCP - General 01/22/21 08/27/21 Elissa Barnes [address] [place] [id number] PCP - General Physician Nps 08/28/21 Dexter Sykes MD [facility][note 3] [address] [address] 09/15/16 Siva Hearn MD [facility][note 3] [address] [address] Neurology 09/15/16 Radha Espinoza, GEOFF Registered Nurse Neurology 12/15/16 Jacob Hernandez MD [address] [place] [id number] Assigned Neuroscience Provider 07/27/20 Ronn Howard MD [id number] [place] [address] [address] [place] [address] Assigned Musculoskeletal Provider 12/09/20 02/09/21 Luis Mock [facility] [id number] [place] [address] [address] [place] [address] Assigned Musculoskeletal Provider 02/10/21 08/08/22 Joanna Pulido MD [address] [place] [id number] Assigned Cancer Care Provider 04/28/21 04/24/23 documented as of this encounter
--- OUTSIDE RECORDS SUMMARY | 2024-02-08 17:17 | XMS_ITS | Clinical Summary ---
Author Name Unknown Organization [facility] [employer] [facility] Address [place], [place] [address] Care Team Providers Care Traffic Counter Name Role Phone Jacob Hernandez MD Unavailable [phone] Tiarra Campos MD Unavailable [phone] Verónica Barnes Primary Care Provider Nino Cadet MD Unavailable [phone] [facility] Mira Vázquez PharmD Unavailable [phone] Allergies Active Allergy Reactions Criticality Noted Date [...] 09/22/20 18 Active SENNA PLUS 8.6-50 mg tabletIndications :constipation Take 2 Tablets by mouth once daily. takes 2 tabs every morning Indications: constipation 12/29/19 19 Active Methyl Salicylate-Mentho l (ICY HOT) 30-10 % topical creamIndications: Pathological fracture in other disease, left femur, subsequent encounter for fracture with routine healing Apply topically to affected area(s). 0 01/22/20 19 Active calcium carbonate-vitamin D3, 500 mg-400 units, (OSCAL 500 + D) tablet Take 1 tablet by mouth 2 times daily before meals. 0 02/12/20 19 Active calcitonin salmon, 200 units per actuation, nasal (MIACALCIN, FORTICAL) 200 unit/actuation nasal sprayIndications: Compression fracture of L1 vertebra with routine healing, subsequent encounter Inhale 1 [place] in the nostril(s) once daily. Alternating nostrils daily. 1 Bottle 10/23/19 21 Active alendronate (FOSAMAX) 70 mg tabletIndications :Osteoporosis, unspecified osteoporosis type, unspecified pathological fracture presence,Compress ion fracture of L1 vertebra with routine healing, subsequent encounter TAKE 1 TABLET BY MOUTH ONCE A WEEK IN THE MORNING ON AN EMPTY STOMACH WITH A FULL GLASS OF WATER DO NOT LIE DOWN FOR 1 HOUR 12 Tablet 3 09/11/20 23 Active gabapentin (NEURONTIN) 600 mg tabletIndications :Idiopathic peripheral neuropathy Take 2 Tablets (1,200 mg) by mouth three times daily. SEPARATE FROM ANTACIDS 540 Tablet 3 09/11/20 23 Active pantoprazole (PROTONIX) 40 mg delayed-release tabletIndications :Chronic GERD Take 1 Tablet (40 mg) by mouth once daily before a meal. 90 Tablet 3 09/11/20 23 Active thiamine (Vitamin B-1) 100 mg tabletIndications :Thiamine deficiency Take 1 Tablet (100 mg) by mouth once daily. 90 Tablet 3 09/11/20 23 Active triamcinolone (ARISTOCORT; KENALOG) 0.1 % creamIndications: Rash APPLY TOPICALLY TO AFFECTED AREAS THREE TIMES A DAY 240 g 10 09/06/20 23 Active Insulin Syringe-Needle U-100 1 mL 25 x 1 syrgIndications:B 12 deficiency As directed. [facility]: [id number] 100 Each 09/11/20 23 Active citalopram (CELEXA) 20 mg tabletIndications :Depression, major, in remission (HC) Take 1 Tablet (20 mg) by mouth every morning. 90 Tablet 3 09/11/20 23 Active levothyroxine (SYNTHROID) 50 mcg tabletIndications :Essential hypertension,Hypo thyroidism (acquired) Take 1 Tablet (50 mcg) by mouth before breakfast. 90 Tablet 3 09/11/20 23 Active oxybutynin XL (DITROPAN XL) 10 mg CR tabletIndications :Urinary urgency Take 1 Tablet (10 mg) by mouth once daily. 90 Tablet 3 09/11/20 23 Active pramipexole (MIRAPEX) 0.5 mg tabletIndications :Restless legs TAKE 1 TABLET BY MOUTH IN THE MORNING DAILY ~108Q2 AND TAKE 2 TABLETS AT BEDTIME 270 Tablet 3 09/11/20 23 Active traZODone (DESYREL) 100 mg tabletIndications :Insomnia, idiopathic TAKE 1 TABLET BY MOUTH ONCE DAILY AT BEDTIME 90 Tablet 3 09/11/20 23 Active nystatin powder (MYCOSTATIN) powderIndications :Skin infection Apply 1 Strip topically to affected area(s) three times daily. 60 g 2 09/23/20 23 Active neomycin-polymyxi n-hydrocortisone (CORTISPORIN OTIC) otic suspensionIndicat ions:Acute infective otitis externa, right Place 3 Drops into right ear three times daily. 10 mL 10/27/19 24 Active diazePAM (VALIUM) 5 mg tablet Take 5 mg by mouth. 30 MINUTES PRIOR TO MRI AND AT TIME OF MRI NEEDED. HAVE CRANE OPERATOR Active lidocaine 5 % topical patchIndications: Compression fracture of L1 vertebra with routine healing, subsequent encounter APPLY 1 PATCH TOPICALLY ONTO PAINFUL AREA OF SKIN THAT IS DRY,CLEAN AND HAIRLESS FOR UP TO 12 HOURS WITHIN A 24 HOUR PERIOD *12 HOURS ON AND 12 HOURS OFF* 90 Patch 12/04/19 24 Active acyclovir (ZOVIRAX) 400 mg tabletIndications :Herpes simplex TAKE 1 TABLET BY MOUTH THREE TIMES DAILY FOR 5 DAYS. TAKE WITH EACH COLD SORE OUTBREAK. 15 Tablet 5 12/15/19 24 Active polyethylene glycoL (Miralax) 17 gram/scoop powderIndications :Chronic constipation Mix 1 scoop (17 g) in liquid then take by mouth once daily. 510 g 5 12/16/19 24 024 Active potassium chloride (K-TAB) 20 mEq extended-release tabletIndications :hypokalemia Take 20 mEq by mouth two times daily with meals. 12/13/19 24 Active hydrOXYzine HCL (ATARAX) 10 mg tabletIndications :Other ascites,Urticaria Take 1 Tablet (10 mg) by mouth every 8 hours if needed for Itching. 30 Tablet 12/21/19 24 Active furosemide (LASIX) 20 mg tabletIndications :Alcoholic cirrhosis of liver without ascites (HC) TAKE 2 TABLETS BY MOUTH IN THE MORNING AND 1 TABLET MID DAY *DOSE INCREASE* 90 Tablet 10 12/25/19 24 Active bisacodyL (DULCOLAX) 10 mg suppositoryIndica tions:Chronic constipation Insert 1 Suppository (10 mg) rectally once daily. 30 Suppository 12/30/19 24 Active acetaminophen (TYLENOL EXTRA STRGTH) 500 mg tablet Take 1 Tablet (500 mg) by mouth every 6 hours. Max acetaminophen dose: 4000mg in 24 hrs. 01/04/20 24 Active nystatin (MYCOSTATIN) 100,000 unit/gram topical creamIndications: Intertrigo APPLY TOPICALLY TO AFFECTED AREAS TWICE DAILY NEEDED 30 g 10 01/05/20 24 Active spironolactone (ALDACTONE) 50 mg tabletIndications :Hepatic cirrhosis, unspecified hepatic cirrhosis type, unspecified whether ascites present (HC) Take 1 Tablet (50 mg) by mouth every morning. 90 Tablet 3 01/06/20 24 Active cetirizine (ZYRTEC) 10 mg tabletIndications :Seasonal allergic rhinitis due to pollen Take 1 Tablet (10 mg) by mouth once daily. 90 Tablet 3 01/06/20 24 Active sennosides (SENNA) 8.6 mg tabletIndications :Megacolon Take 1-2 Tablets (8.6-17.2 mg) by mouth two times daily. 180 Tablet 3 01/06/20 24 Active potassium chloride (K-DINA) 20 mEq packetIndications :Hypokalemia Mix 2 Packets (40 mEq) in liquid then take by mouth two times daily with meals. 125 Packet 3 01/06/20 24 Active oxyCODONE-acetami nophen (Percocet) 5-325 mg per tabletIndications :CIDP (chronic inflammatory demyelinating polyneuropathy) (HC),Leg pain, bilateral Take 1 Tablet by mouth 3 times daily if needed for Pain. Max acetaminophen dose: 4000mg in 24 hrs. 21 Tablet 02/01/20 24 Active carboxymethylcell ulose 0.5% 0.5 % drop ophthalmic dropsIndications: Dry eye INSTILL 1-2 DROPS INTO BOTH EYES EVERY 2 HOURS IF NEEDED FOR DRY EYES. 15 mL 02/02/20 24 Active hydrocortisone (HYTONE) 2.5 % ointmentIndicatio ns:Angular cheilitis APPLY TOPICALLY TO AFFECTED AREA(S) TWICE DAILY 28.35 g 3 02/02/20 24 Active cyanocobalamin (VITAMIN B12) 1,000 mcg/mL injectionIndicati ons:B12 deficiency INJECT 1ML INTRAMUSCULARLY EVERY 4 WEEKS 3 mL 3 02/02/20 24 Active hydrocortisone (HYTONE) 2.5 % ointmentIndicatio ns:Angular cheilitis APPLY TOPICALLY TO AFFECTED AREA(S) TWICE DAILY. 28.35 g 10 03/16/20 23 024 Discontinued Lubricant Eye Drops 0.5 % drop ophthalmic dropsIndications: Dry eye Place 1-2 Drops into both eyes every 2 hours if needed for Dry Eyes. 30 mL 5 04/27/20 23 024 Discontinued cyanocobalamin (VITAMIN B12) 1,000 mcg/mL injectionIndicati ons:B12 deficiency INJECT 1ML INTRAMUSCULARLY EVERY 4 WEEKS 3 mL 2 05/15/20 23 024 Discontinued predniSONE (DELTASONE) 10 mg tabletIndications :Dermatitis Take 3 Tablets (30 mg) by mouth once daily with a meal for 2 days, THEN 2 Tablets (20 mg) once daily with a meal for 2 days, THEN 1 Tablet (10 mg) once daily with a meal for 2 days. 12 Tablet 01/06/20 24 04/09/2 024 mupirocin (BACTROBAN OINTMENT) ointmentIndicatio ns:Skin ulcer of sacrum, unspecified ulcer stage (HC) [...] insulin 12/30/2022 Asymmetrical sensorineural hearing loss 06/26/20 Hypothyroidism (acquired) 09/07/2020 S/P hardware removal 04/16/2020 [...] Date Type Department Care Team Description 02/05/2024 Home Care Visit [facility] [address] [place] [address] Dasha Hu, NAIR OT - MISSED VISIT 02/04/2024 Home Care Visit [facility] [address] [place] [address] Miah Sal, RN SN - OASIS TRANSFER 02/03/2024 5:00 AM CDT Home Care Visit [facility] [address] [place] [address] Soco Carmona, LEAN SIX SIGMA SENIOR SPECIALIST LEAN SIX SIGMA SENIOR SPECIALIST - MISSED VISIT 02/03/2024 Home Care Visit [facility] [address] [place] [address] Nikos Perez, PT CARE COORDINATION 02/02/2024 Home Care Visit [facility] [address] [place] [address] Dasha Hu, NAIR OT - MISSED VISIT 02/02/2024 Home Care Visit [facility] [address] [place] [address] Dasha Hu, NAIR CARE COORDINATION 02/01/2024 2:00 PM CDT Home Care Visit [facility] [address] [place] [address] Nikos Perez, PT PT - MISSED VISIT 02/01/2024 7:30 AM CDT Preop Visit [facility] [address] [place] [address] Verónica Barnes PA Preoperative Exam (endoscopy) 02/01/2024 Refill [facility] [address] [place] [address] Verónica Barnes PA Refill Request (Carboxymethylcellu lose 0.5%, Hydrocortisone, Cyanocobalamin) 02/01/2024 Travel 01/28/2024 10:30 AM CDT Home Care Visit [facility] [address] [place] [address] Miah Sal, RN SN - HOME VISIT 01/28/2024 Home Care Visit [facility] [address] [place] [address] Cori Oneal, MIRTHA OT - REASSESSMENT 01/27/2024 8:45 AM CDT Home Care Visit [facility] [address] [place] [address] Nikos Perez, PT PT - HOME VISIT 01/27/2024 Telephone [facility] [address] [place] [address] Verónica Barnes PA Lab (Clarity on orders) 01/27/2024 Travel 01/22/2024 Home Care Visit [facility] [address] [place] [phone] Cori Oneal, OT CARE COORDINATION 01/21/2024 11:30 AM CDT Home Care Visit [facility] [address] [place] [phone] Soco Carmona LPN LEAN SIX SIGMA SENIOR SPECIALIST - HOME VISIT 01/20/2024 12:00 PM CDT Home Care Visit [facility] [address] [place] [phone] Cori Oneal, OT OT - MISSED VISIT 01/20/2024 9:15 AM CDT Home Care Visit [facility] [address] [place] [phone] Nikos Perez, PT PT - HOME VISIT 01/20/2024 Home Care Visit [facility] [address] [place] [address] Cori Oneal, OT CARE COORDINATION 01/20/2024 Travel 01/18/2024 Home Care Visit [facility] [address] [place] [address], [place] [address] Cori Oneal, OT OT - MISSED VISIT 01/15/2024 10:00 AM CDT Home Care Visit [facility] [address] [place] [address], [place] [address] Miah Sal, RN SN - HOME VISIT 01/15/2024 8:45 AM CDT Home Care Visit [facility] [address] [place] [address], [place] [address] Nikos Perez, PT PT - HOME VISIT 01/15/2024 Home Care Visit [facility] [id number] [place] [phone] Cori Oneal, OT OT - MISSED VISIT 01/12/2024 9:00 AM CDT Home Care Visit [facility] [id number] [place] [phone] Nikos Perez, PT PT - HOME VISIT 01/12/2024 Travel 01/11/2024 11:00 AM CDT Home Care Visit [facility] [id number] [place] [phone] Cori Oneal, OT OT - HOME VISIT 01/11/2024 Telephone [facility] [address] [place] [address] Verónica Barnes PA Prior Authorization (lidocaine 5 % topical patch Denied) 01/08/2024 12:00 PM CDT Home Care Visit [facility] [address] [place] [phone] Miah Sal, RN SN - HOME VISIT 01/08/2024 11:00 AM CDT Pharmacist Medication Management [facility] [address] [place] [address] Mira Vázquez PharmD Pharmacist Medication Management (CMR follow-up - provider referral - polypharmacy) 01/08/2024 Travel 01/06/2024 2:00 PM CDT Ancillary Procedure [facility] [address] [place] [address] 01/06/2024 1:45 PM CDT Ancillary Procedure [facility] [address] [facility] [place] [address] 01/06/2024 1:00 PM CDT Office Visit [facility] [address] [facility] [place] [address] Verónica Barnes PA Follow Up (Fell twice again, on and Thursday. Still having pain in R arm. / still has rash.) 01/06/2024 Telephone [facility] [place] [address] [address] Siva Jamil MD Referral (Neurology) 01/06/2024 Travel 01/05/2024 12:30 PM CDT Home Care Visit [facility] [address] [place] [address] Soco Carmona, LEAN SIX SIGMA SENIOR SPECIALIST LEAN SIX SIGMA SENIOR SPECIALIST - HOME VISIT 01/05/2024 Refill [facility] [address] [facility] [place] [address] Verónica Barnes PA Refill Request (Nystatin) 01/04/2024 1:00 PM CDT Home Care Visit [facility] [address] [place] [address] Ileana Tariq OT OT - INITIAL ASSESSMENT 01/04/2024 9:00 AM CDT Home Care Visit [facility] [address] [place] [address] Nikos Perez, PT PT - INITIAL ASSESSMENT 01/04/2024 Telephone [facility] [address] [place] [address] Nikos Perez, PT Home Care 01/04/2024 Travel 01/04/2024 Telephone [facility] [address] [place] [address] Verónica Barnes PA Follow Up 01/02/2024 4:00 AM CDT Home Care Visit [facility] [address] [place] [address] Mindy Tracy RN SN - MISSED VISIT 12/31/2023 Telephone [facility] [address] [place] [address] Esmer El MD Results 12/30/2023 11:30 AM CDT Ancillary Procedure [facility] [address] [place] [address] 12/30/2023 9:50 AM CDT Office Visit [facility] [address] [place] [address] Verónica Barnes PA Follow Up (Recheck rash, swelling and legs); Fall (Fell asleep in wheelchair last night and fell out of chair, has pain in R upper arm, R armpit / rib area, R hip area. ) 12/30/2023 Travel 12/29/2023 10:00 AM CDT Home Care Visit [facility] [address] [place] [phone] Susan Bolaños, RN CARE COORDINATION 12/29/2023 9:00 AM CDT Home Care Visit [facility] [address] [place] [phone] Miah Sal RN SN - HOME VISIT 12/28/2023 1:30 AM CDT Home Care Visit [facility] [address] [place] [phone] Susan Bolaños, RN SN - WOUND/OSTOMY CHART CONSULT 12/28/[address] [phone] Verónica Barnes PA Home Care (Wound Orders) 12/28/2023 Telephone [facility] [address] [facility] [address] Rajwinder Paulino, spreader operator automatic 12/28/2023 Plan of Care Documentation [facility] [address] [place] [address] 12/27/2023 8:00 AM CDT Home Care Visit [facility] [address] [place] [address] Rajwinder Paulino, RN SN - OASIS START OF CARE 12/25/2023 10:00 AM CDT Pharmacist Medication Management [facility] [address] [place] [address] Mira Vázquez PharmD Pharmacist Medication Management (CMR initial - provider referral - phone visit - antibiotic interaction concerns) 12/25/2023 Travel 12/24/2023 Refill [facility] [address] [place] [address] Verónica Barnes PA Refill Request (Furosemide) 12/24/2023 Patient Outreach [facility] Care Management - Advanced Care Team [address] [place] [address] Cortney Razo Medication Management (CMR PROVIDER REFERRAL - covered) 12/23/2023 Travel 12/21/2023 2:40 PM CDT Office Visit [facility] [address] [place] [address] Astrid Hitchcock, Rash; Ankle Pain/problem (left ankle oozing) 12/21/2023 Travel 12/21/2023 Telephone [facility] [address] [place] [address] Verónica Barnes PA Appointment Request 12/17/2023 8:15 AM CDT Ancillary Procedure [facility] [address] [place] [address] 12/16/2023 11:00 AM CDT Office Visit [facility] [address] [facility] [place] [address] [place] [address] Hans Lay MD Consult (cirrhosis and c.o abdominal bloating, constipation, diarrhea. patient reports having her last bevarage on oct 10 ) 12/16/2023 Travel 12/14/2023 11:40 AM CDT [facility] [address] [place] [address] Maxx Dubois MD Rash 12/14/2023 E-Consult [facility] [address] [place] [address] Bridget Granados MD 12/14/2023 Refill [facility] [address] [place] [address] Verónica Barnes PA Refill Request (Acyclovir) 12/14/2023 Telephone [facility] [address] [place] [address] Verónica Barnes PA Prior Authorization (nystatin (MYCOSTATIN) cream Approved 12/14/23-10/04/24) 12/14/2023 Travel 12/11/2023 Refill [facility] [address] [place] [address] Verónica Barnes PA Refill Request (Acyclovir) 12/09/2023 Telephone [facility] [address] [place] [address] Verónica Barnes PA Questions 12/09/2023 Refill [facility] [address] [place] [address] Verónica Barnes PA Refill Request (FUROSEMIDE) 12/07/2023 9:30 AM SHIPS EQUIPMENT ENGINEER Nurse/Clinic Staff Only [facility] [address] [place] [address] Wound Check (Abhay leg wraps) 12/07/2023 Refill [facility] [address] [place] [address] Verónica Barnes PA Refill Request (Acyclovir) 12/07/2023 Travel 12/04/2023 9:30 AM SHIPS EQUIPMENT ENGINEER Nurse/Clinic Staff Only [facility] [address] [facility] [address] 12/03/2023 7:30 AM SHIPS EQUIPMENT ENGINEER Ancillary Procedure [facility] [address] [place] [address] 12/03/2023 Refill [facility] [address] [place] [address] Verónica Barnes PA Refill Request (Lidocaine) 12/03/2023 Travel 12/02/2023 1:00 PM SHIPS EQUIPMENT ENGINEER Nurse/Clinic Staff Only [facility] [address] [place] [address] Dressing Change (Bilateral legs/) 12/02/2023 11:00 AM SHIPS EQUIPMENT ENGINEER Orders Only [facility] [address] [place] [address] 1 scan: (1-Ord) ECHO TTE COMPLETE WO CONTRAST ([id number]) 12/01/2023 1:15 PM SHIPS EQUIPMENT ENGINEER Orders Only [facility] [address] [place] [address] Lab, [place] Lab; Outside Order (Tiarra Campos) 12/01/2023 10:10 AM SHIPS EQUIPMENT ENGINEER Office Visit [facility] [address] [place] [address] Verónica Barnes PA Derm Problem (Red itchy rash, blisters that are leaking x 3 days); Concerns (Can't move her legs at all anymore, this started after last PT visit) 12/01/2023 Travel 11/27/2023 Telephone [facility] [address] [place] [address] Verónica Barnes PA Concerns (Fluid weight/functional status) 11/17/2023 Telephone [facility] [address] [place] [address] Verónica Barnes PA Questions (Fax- [facility]) 11/12/2023 9:00 AM SHIPS EQUIPMENT ENGINEER Home Care Visit [facility] [address] [place] [phone] Miah Sal, RN SN - OASIS DISCHARGE 11/11/2023 Telephone [facility] [address] [place] [address] Nikos Perez, PT Home Care 11/10/2023 8:45 AM SHIPS EQUIPMENT ENGINEER Home Care Visit [facility] [address] [place] [phone] Nikos Perez, PT PT - DISCIPLINE DISCHARGE 11/10/2023 Travel from Last 3 Months Immunizations Name Administration Dates Next Due AMB INFLUENZA, IIV4 (AGE=>6M OS) MDV (Flu Clinic Only) 07/14/2020 COVID-19 vaccine ([employer] NTech 30mcg/0.3mL) 12YO+ TOAN-SUCROSE PF, MDV 03/17/2022 [...] Ectopic Multiple Livin g Live Births 1 1 1 Date Outcome GA Total Labor Labor/2nd/3rd Weight [...] Care Team (Late st Contact Info) Description 03/23/2024 1:00 PM CDT Office Visit [facility] [address] [place] [address] Siva Jamil MD [address] [place] [address] Health Maintenance Due Date Last Done Comments Hepatitis B series for Diabe jorge (1 of 3 - 19+ 3-dose series) 1984 COVID-19 vaccine series (2022- season) 2023 09/04/2022, 03/17/2022, 09/09/2021, Additional history [...] 2029 10/06/2018, 04/02/2017 Tetanus booster 09/02/2032 09/02/2022, 12/12/2011, 03/25/2004, Additional history exists HIV for age 15-65 Completed 04/23/2016, 02/28/2010 Hepatitis C screening for ag e 18-79 Completed 09/09/2018, 02/28/2010 Zoster (shingles) series for age 50+ Completed 09/07/2021, 07/09/2021 Tdap Completed 09/02/2022, 09/06/2012 Medical Devices Implanted Type Area User Experience Developer Device Identifier Shelf Expiration Date Model / Serial / Lot M0.45 - [id number] Implanted:Qty: 1 on 05/29/2016 by Kane Donis DPM at [facility] Left: Toe 0.45 / / Description:0.45 kwire from tray Tri[employer]lon Tritanium Tibial Component Implanted:Qty: 1 on 11/16/2017 by Shay Sanders MD at [facility] Left: Knee [employer] 08/10/2022 / / [id number] Triathlon Ps Femoral Implanted:Qty: 1 on 11/16/2017 by Shay Sanders MD at [facility] Left: Knee [employer] 06/03/2022 / / [id number] Triathlon X3 Tibial Bearing Insert Ps Implanted:Qty: 1 on 11/16/2017 by Shay Sanders MD at [facility] Left: Knee [employer] 06/02/2022 / / [id number] Triathlon Tritanium Asymmetric Patella Implanted:Qty: 1 on 11/16/2017 by Shay Sanders MD at [facility] Left: Knee [employer] 06/29/2022 / / [...] ABDOMEN COMPLETE Routine 12/03/2023 8 :18 AM SHIPS EQUIPMENT ENGINEER Weight loss Alcoholic cirrhosis of liver with ascites (HC) ECHO TTE COMPLETE WO CONTRAST Routine 12/02/2023 11:51 AM SHIPS EQUIPMENT ENGINEER Newly recognized murmur COMP METABOLIC PANEL Routine 12/01/2023 11:58 AM SHIPS EQUIPMENT ENGINEER Alcoholic cirrhosis of liver without ascites (HC) PROTIME-INR Routine 12/01/2023 11:58 AM SHIPS EQUIPMENT ENGINEER Chronic liver disease HEPATIC FUNCTION PANEL Routine 12/01/2023 11:58 AM SHIPS EQUIPMENT ENGINEER Chronic liver disease CBC W PLT NO DIFF Routine 12/01/2023 11: 58 AM SHIPS EQUIPMENT ENGINEER Chronic liver disease AFP TUMOR MARKER SERUM Routine 12/01/2023 11:58 AM SHIPS EQUIPMENT ENGINEER Chronic liver disease LIPID PANEL W REFLEX MEASURED LDL Routine 09/11/2023 9:11 AM SHIPS EQUIPMENT ENGINEER Essential hypertension XR MAMMO BILAT SCREENING Routine 05/25/2023 9:38 AM CDT Visit for screening mammogram ANTI HCV Routine 09/09/2018 1:46 PM SHIPS EQUIPMENT ENGINEER CIDP (chronic inflammatory demyelinating polyneuropathy) (HC) ANTI HIV 1/2 Routine 04/23/2016 12:08 PM CDT Angular cheilitis SCAN-COLONOSCOPY 09/07/2015 7:30 AM SHIPS EQUIPMENT ENGINEER from Last 3 Months or Most Recently Relevant to Health Maintenance Results * (ABNORMAL) CBC WITH AUTO DIFFERENTIAL (02/01/2024 9:07 AM CDT) Only the most recent of3 resultswithin the time period is included. WHITE BLOOD COUNT 7.7 4.5 - 11.0 thou/cu mm 02/01/2024 9:18 AM CDT [facility] RED BLOOD COUNT 3.76(L) 4.00 - 5.20 mil/cu mm 02/01/2024 9:18 AM CDT [facility] HEMOGLOBIN 11.8(L) 12.0 - 16.0 g/dL 02/01/2024 9:18 AM CDT [facility] HEMATOCRIT 34.5 33.0 - 51.0 % 02/01/2024 9:18 AM CDT [facility] MCV 92 80 - 100 fL 02/01/2024 9:18 AM CDT [facility] MCH 31.4 26.0 - 34.0 pg 02/01/2024 9:18 AM CDT [facility] MCHC 34.2 32.0 - 36.0 g/dL 02/01/2024 9:18 AM CDT [facility] RDW 13.8 11.5 - 15.5 % 02/01/2024 9:18 AM CDT [facility] PLATELET COUNT 195 140 - 440 thou/cu mm 02/01/2024 9:18 AM CDT [facility] MPV 9.8 6.5 - 11.0 fL 02/01/2024 9:18 AM CDT [facility] % NEUT 73.3 % 02/01/2024 9:18 AM CDT [facility] % LYMPH 17.1 % 02/01/2024 9:18 AM CDT [facility] % MONO 8.9 % 02/01/2024 9:18 AM CDT [facility] [facility] % EOS 0.3 % 02/01/2024 9:18 AM CDT [facility] % BASO 0.4 % 02/01/2024 9:18 AM CDT [facility] ABSOLUTE NEUTROPHILS 5.6 1.7 - 7.0 thou/cu mm 02/01/2024 9:18 AM CDT [facility] ABSOLUTE LYMPHOCYTES 1.3 0.9 - 2.9 thou/cu mm 02/01/2024 9:18 AM CDT [facility] ABSOLUTE MONOCYTES 0.7 <0.9 thou/cu mm 02/01/2024 9:18 AM CDT [facility] ABSOLUTE EOSINOPHILS 0.0 <0.5 thou/cu mm 02/01/2024 9:18 AM CDT [facility] ABSOLUTE BASOPHILS 0.0 <0.3 thou/cu mm 02/01/2024 9:18 AM T [facility] Blood BLOOD SPECIMEN / Unknown Venipuncture / Unknown 02/01/2024 9:07 AM CDT 02/01/2024 9:08 AM CDT Verónica ENNIS HEMATOLOGY [facility] [address] [place] [address], * (ABNORMAL) COMP METABOLIC PANEL (02/01/2024 9:07 AM CDT) Only the most recent of2 resultswithin the time period is included. SODIUM 134(L) 136 - 145 mmol/L 02/02/2024 5:01 AM [facility] POTASSIUM 3.5 3.5 - 5.1 mmol/L 02/02/2024 5:01 AM [facility] CHLORIDE 98 98 - 107 mmol/L 02/02/2024 5:01 AM [facility] CO2,TOTAL 26 22 - 29 mmol/L 02/02/2024 5:01 AM [facility] ANION GAP 10 5 - 18 02/02/2024 5:01 AM [facility] GLUCOSE 95 70 - 99 mg/dL 02/02/2024 5:01 AM [facility] CALCIUM 8.3(L) 8.6 - 10.0 mg/dL 02/02/2024 5:01 AM [facility] BUN 8 6 - 20 mg/dL 02/02/2024 5:01 AM [facility] CREATININE 0.63 0.50 - 0.90 mg/dL 02/02/2024 5:01 AM [facility] BUN/CREAT RATIO 13 10 - 20 5:01 AM [facility] eGFR >90 >90 mL/min/1.7 3m2 02/02/2024 5:01 AM CDT [facility] Comment:As of 2021, eG FR is calculated by the CKD-EPI creatinine equation without race adjustment. ??eGFR can be influenced by muscle mass, exercise, and diet. ??The reported eGFR is an estimation only and is only applicable if the renal function is stable. ALBUMIN 2.8(L) 4.0 - 4.9 g/dL 02/02/2024 5:01 AM CDT [facility] PROTEIN,TOTAL 6.3 6.0 - 8.0 g/dL 02/02/2024 5:01 AM CDT [facility] BILIRUBIN,TOTAL 1.4(H) 0.0 - 1.2 mg/dL 02/02/2024 5:01 AM CDT [facility] ALK PHOSPHATASE 121(H) 35 - 104 IU/L 02/02/2024 5:01 AM CDT [facility] ALT (SGPT) 24 10 - 35 IU/L 02/02/2024 5:01 AM CDT [facility] AST (SGOT) 41(H) 10 - 35 IU/L 02/02/2024 5:01 AM CDT [facility] Blood BLOOD SPECIMEN / Unknown Venipuncture / Unknown 02/01/2024 9:07 AM CDT 02/01/2024 9:08 AM CDT Verónica ENNIS CHEMISTRY [facility] [address] [place] [address], [place] * XR KNEE 2 VIEWS RIGHT (01/06/2024 2:06 PM CDT) Anatomical Region Laterality Modality KNEE R Computed Radiogr aphy 01/07/2024 2:36 PM CDT Narrative 01/07/2024 2:36 PM CDT For Patients: ??As a result of the s Act, medical imaging exams and procedure reports [...] For Patients: As a result of the s , medical imagingexams and procedure reports are released [...] For Patients: ??As a result of the s Act, medical imaging exams and procedure reports [...] 1:48 PM CDT) Only the most recent of2 resultswithin the time period is included. SODIUM 136 136 - 145 mmol/L 01/06/2024 10:12 PM CDT [facility] POTASSIUM 4.2 3.5 - 5.1 mmol/L 01/06/2024 10:12 PM CDT [facility] CHLORIDE 101 98 - 107 mmol/L 01/06/2024 10:12 PM CDT [facility] CO2,TOTAL 27 22 - 29 mmol/L 01/06/2024 10:12 PM CDT [facility] ANION GAP 8 5 - 18 01/06/2024 10:12 PM CDT [facility] GLUCOSE 77 70 - 99 mg/dL 01/06/2024 10:12 PM CDT [facility] CALCIUM 8.3(L) 8.6 - 10.0 mg/dL 01/06/2024 10:12 PM CDT [facility] BUN 12 6 - 20 mg/dL 01/06/2024 10:12 PM CDT [facility] CREATININE 0.64 0.50 - 0.90 mg/dL 01/06/2024 10:12 PM CDT [facility] BUN/CREAT RATIO 19 10 - 20 10:12 PM CDT [facility] eGFR >90 >90 mL/min/1.7 3m2 01/06/2024 10:12 PM CDT [facility] Comment:As of 2021, eG [...] 01/06/2024 1:49 PM CDT Verónica ENNIS CHEMISTRY [facility] [address] [place] [address], * (ABNORMAL) HEPATIC FUNCTION PANEL (12/21/2023 4:25 PM CDT) Only the most recent of2 resultswithin the time period is included. ALBUMIN 2.8(L) 4.0 - 4.9 g/dL 12/22/2023 2:38 PM CDT [facility] PROTEIN,TOTAL 6.4 6.0 - 8.0 g/dL 12/22/2023 2:38 PM CDT [facility] BILIRUBIN,TOTAL 1.2 0.0 - 1.2 mg/dL 12/22/2023 2:38 PM CDT [facility] BILIRUBIN,DIRECT 0.6(H) 0.0 - 0.3 mg/dL 12/22/2023 2:38 PM CDT [facility] BILIRUBIN,INDIRE CT 0.6 0.2 - 0.8 mg/dL 12/22/2023 2:38 PM CDT [facility] ALK PHOSPHATASE 105(H) 35 - 104 IU/L 12/22/2023 2:38 PM CDT [facility] ALT (SGPT) 21 10 - 35 IU/L 12/22/2023 2:38 PM CDT [facility] AST (SGOT) 43(H) 10 - 35 IU/L 12/22/2023 2:38 PM CDT [facility] Blood BLOOD SPECIMEN / Unknown Venipuncture / Unknown 12/21/2023 4:25 PM CDT 12/21/2023 4:28 PM CDT Astrid Dana Coretta DO [facility] [address] [place] [address], [place] * XR ABDOMEN 2 VIEW FLAT [...] * US ABDOMEN COMPLETE (12/03/2023 8:18 AM SHIPS EQUIPMENT ENGINEER) Anatomical Region Laterality Modality Abdomen, LIVER, KIDNEYS, PANCREAS, GALLBLADDER, SPLEEN Ultrasound Impressions 12/03/2023 2:54 PM SHIPS EQUIPMENT ENGINEER Cirrhotic liver with mild ascites. Gallbladder wall thickening without gallstones likely related to chronic liver disease. Splenomegaly. Dictated by Nikos Abraham MD @ 12/03/2023 2:13:42 PM Signed by: Nikos Abraham MD @12/03/2023 2:13:42 PM (Electronic Signature) Narrative 12/03/2023 2:54 PM SHIPS EQUIPMENT ENGINEER CLINICAL HISTORY: Cirrhosis COMPARISON: 08/17/2023 TECHNIQUE: Real [...] TTE COMPLETE WO CONTRAST (12/02/2023 11:51 AM SHIPS EQUIPMENT ENGINEER) AORTIC VALVE MEAN PG 5 mmHg EJECTION FRACTION 71 % LVEDD 4.7 cm EJECTION FRACTION 60 - 65% Anatomical Region Laterality Modality Ultrasound 12/02/2023 11:2 5 AM SHIPS EQUIPMENT ENGINEER Narrative 12/02/2023 1:54 PM SHIPS EQUIPMENT ENGINEER ECHOCARDIOGRAM CATHY RAYMOND ?Accession#: ?? [id number] : ?1965 58 years Study Date: ?? 12/02/2023 11:25:12 AM Gender: F ? BP: ? 112/78 mmHg Height: 173.00 cm ? BSA: ?1.98 m? ? ? Weight: 84.00 kg ?Tech: ? MSR ?Referring MD: VERÓNICA BARNES Site: ? [facility] Reading Location: Mobile OP Patient Location: Outpatient. [...] . This study was interpreted by an [facility] accredited facility. ??Final ?? Procedure Note Amado Rodríguez MD - 12/02/2023 ECHOCARDIOGRAM CATHY RAYMOND : 1965 58 years Study Date: 12/02/2023 11:25:12 AM Gender: F BP: 112/78 mmHg Height: 173.00 cm BSA: 1.98 m? ? ? Weight: 84.00 kg Tech: [facility] Referring MD: VERÓNICA BARNES Site: [facility] Reading Location: [place] OP Patient Location: Outpatient. Procedure: 2D, Spectral [...] . This study was interpreted by an [facility] accredited facility. Final Verónica ENNIS ECHO ORD * (ABNORMAL) CBC W PLT NO DIFF (12/01/2023 11:58 AM SHIPS EQUIPMENT ENGINEER) [facility] WHITE BLOOD COUNT 6.2 4.5 - 11.0 thou/cu mm 12/01/2023 12:05 PM SHIPS EQUIPMENT ENGINEER [facility] RED BLOOD COUNT 3.38(L) 4.00 - 5.20 mil/cu mm 12/01/2023 12:05 PM HEMOGLOBIN 11.0(L) 12.0 - 16.0 g/dL 12/01/2023 12:05 PM HEMATOCRIT 32.4(L) 33.0 - 51.0 % 12/01/2023 12:05 PM MCV 96 80 - 100 fL 12/01/2023 12:05 PM MCH 32.5 26.0 - 34.0 pg 12/01/2023 12:05 PM MCHC 34.0 32.0 - 36.0 g/dL 12/01/2023 12:05 PM RDW 14.1 11.5 - 15.5 % 12/01/2023 12:05 PM PLATELET COUNT 146 140 - 440 thou/cu mm 12/01/2023 12:05 PM MPV 11.1(H) 6.5 - 11.0 fL 12/01/2023 12:05 PM Blood BLOOD SPECIMEN / Unknown Venipuncture / Unknown 12/01/2023 11:58 AM [facility] 12/01/2023 12:00 PM [facility] - 12/01/2023 12:05 PM [facility] This testing was ordered by an outside [...] ordering provider, Tiarra Campos at fax number [phone], for that provider to inform and arrange appropriate follow up with the patient. Esperanza Brown MLT ([facility]................... ??11/02/2023 ?? 4:02 PM Verónica ENNIS HEMATOLOGY Performing Organization Address [facility]/ZIP Co de Phone Number [facility] [address] [place] [address], [place] [phone] * (ABNORMAL) PROTIME-INR (12/01/2023 11:58 AM SHIPS EQUIPMENT ENGINEER) INR 1.2 <1.3 12/01/2023 8:36 PM SHIPS EQUIPMENT ENGINEER [facility] PROTIME 13.5(H) 10.3 - 12.3 sec 12/01/2023 8:36 PM SHIPS EQUIPMENT ENGINEER [facility] Blood BLOOD SPECIMEN / Unknown Venipuncture / Unknown 12/01/2023 11:58 AM SHIPS EQUIPMENT ENGINEER 12/01/2023 12:00 PM SHIPS EQUIPMENT ENGINEER Narrative [facility] - 12/01/2023 8:36 PM SHIPS EQUIPMENT ENGINEER ?Therapeutic Range 2.0-3.0 for most anticoagulated patients [...] UFH. Verónica ENNIS HEMATOLOGY Performing Organization Address [facility] Co de Phone Number [facility] [address] [place] [address], [place] * AFP TUMOR MARKER SERUM (12/01/2023 11:58 AM SHIPS EQUIPMENT ENGINEER) AFP TUMOR MARKER,SERUM 5.0 <=8.3 ng/mL 12/01/2023 10:04 PM SHIPS EQUIPMENT ENGINEER [facility] Blood BLOOD SPECIMEN / Unknown Venipuncture / Unknown 12/01/2023 11:58 AM SHIPS EQUIPMENT ENGINEER 12/01/2023 12:00 PM SHIPS EQUIPMENT ENGINEER Narrative [facility] - 12/01/2023 10:04 PM SHIPS EQUIPMENT ENGINEER The test method changed on 10/07/2022. If [...] prior to retesting. Verónica ENNIS SEND OUTS [facility] [address] [place] [address], * LIPID PANEL W REFLEX MEASURED LDL (09/11/2023 9:11 AM SHIPS EQUIPMENT ENGINEER) CHOLESTEROL,TOTAL 184 100 - 199 mg/dL 09/11/2023 4:35 PM SHIPS EQUIPMENT ENGINEER [facility] Comment: Cholesterol, Total Reference Ranges Desirable <200 mg/dL Borderline 200-239 mg/dL High >=240 mg/dL TRIGLYCERIDES 144 <150 mg/dL 09/11/2023 4:35 PM SHIPS EQUIPMENT ENGINEER [facility] HDL CHOLESTEROL 46 >40 mg/dL 4:35 PM SHIPS EQUIPMENT ENGINEER [facility] NON-HDL CHOLESTEROL 138 <145 mg/dl 09/11/2023 4:35 PM SHIPS EQUIPMENT ENGINEER [facility] CHOL/HDL RATIO 4.00 <4.50 09/11/2023 4:35 PM SHIPS EQUIPMENT ENGINEER [facility] LDL CHOLESTEROL 109 <=130 mg/dL 09/11/2023 4:35 PM SHIPS EQUIPMENT ENGINEER [facility] VLDL CHOLESTEROL 29 <=30 mg/dL 09/11/2023 4:35 PM SHIPS EQUIPMENT ENGINEER [facility] PROVIDER ORDERED STATUS RANDOM 09/11/2023 4:35 PM SHIPS EQUIPMENT ENGINEER [facility] Blood BLOOD SPECIMEN / Unknown Venipuncture / Unknown 09/11/2023 9:11 AM SHIPS EQUIPMENT ENGINEER 09/11/2023 9:13 AM SHIPS EQUIPMENT ENGINEER Verónica ENNIS CHEMISTRY [facility] [address] [place] [address], * XR MAMMO BILAT SCREENING (05/25/2023 9:38 [...] health care provider. XR MAMMO BILAT SCREENING [[id number]] CLINICAL HISTORY: ??This is an asymptomatic 57 y.o. patient. INDICATION FOR EXAM: Mammogram Screening. TECHNIQUE: CC & MLO views were obtained. ??This study was evaluated with the assistance of Computer-Aided Detection. COMPARISON FILMS: Yes 05/23/22 [facility] 04/23/21 [facility] FINDINGS: ??The breasts have scattered areas of fibroglandular density. ??No suspicious masses or microcalcifications. ??There are benign appearing calcifications. and Post biopsy changes of both breasts. Verónica ENNIS MAMMO * ANTI HCV (09/09/2018 1:46 PM SHIPS EQUIPMENT ENGINEER) HEPATITIS C ANTIBODY Non-React velasquez Non-React velasquez 09/10/2018 2:37 PM SHIPS EQUIPMENT ENGINEER [facility] [facility] Comment:Antibodies to HCV no t detected; does not exclude the possibility of exposure to HCV. Blood BLOOD SPECIMEN / Unknown Venipuncture / Unknown 09/09/2018 1:46 PM SHIPS EQUIPMENT ENGINEER 09/09/2018 3:52 PM SHIPS EQUIPMENT ENGINEER Nikos Ventura MD SEND OUTS [facility] [address] [place] [address], [place] * ANTI HIV 1/2 (04/23/2016 12:08 PM CDT) HIV-1/HIV-2 ANTIBODY Non-Reacti ve Non-Reacti ve 04/23/2016 6:03 PM CDT [facility] Blood BLOOD SPECIMEN / Unknown Venipuncture / Unknown 04/23/2016 12:08 PM CDT 04/23/2016 12:08 PM CDT Narrative [facility] - 04/23/2016 6:03 PM CDT HIV-1 p24 and HIV-1/HIV-2 Ab not detected Nikos Ventura MD SEND OUTS Performing Organization Address [facility] Co de Phone Number [facility] [address] [place] [address], [place] * SCAN-COLONOSCOPY (09/07/2015 7:30 AM SHIPS EQUIPMENT ENGINEER) Narrative Transcriptions Jacob Shaikh MD - 09/07/2015 6:46 AM CST [facility] [address] [place] [address], [facility] [address], [place] [address] Patient Name: Cathy Raymond Gender: Female Exam Date: 09/07/2015 Visit Number: [id number] Age: 50 Years Date of : 1965 Attending MD: Jacob Shaikh MD Medical Record#: [id number] ----- Procedure: Colonoscopy Indications: Colorectal cancer screening [...] in animmediate family member, you should contact [facility] or your primary providerto discuss whether your [...] Ventura MD cc: Gamaliel MESSER, Radha Bishop Jaocb Shaikh MD OTHER from Last 3 Months or Most Recently Relevant to Health Maintenance Advance Directives Documents on File Type Date Recorded Patient Partner Marketing Intern Expl anation Healthcare Directive 09/02/2021 9:12 AM [...] 11:58 AM 03/03/2010 7:10 PM Care Teams Traffic Counter Relationship Specialty Start Date End Date Verónica Barnes [place] [place] [address] PCP - General Physician Want Ad Receiver 11/30/20 Jacob Hernandez MD [address] [place] [address] [id number] Neurology 11/30/20 Tiarra Campos MD [address] [address] Gastroenterology 11/30/20 Nino Cadet MD [address] [place] [address] Surgery - Orthopedics 11/30/20 [facility] [address] [place] [address] 12/23/23 Mira Vázquez, PharmD [address] [place] [address] [place] [address] Pharmacist Medication Management Pharmacology 12/25/23 12/24/26
--- OUTSIDE RECORDS SUMMARY | 2024-02-08 17:17 | XMS_ITS | Referral Summary ---
Author Name Unknown Organization [facility] Address [address] [place] [address]. [place] [address] Care Team Providers Care Whiting Can Worker Name Role Phone Dexter Sykes MD Unavailable [phone] Siva Hearn MD Unavailable [phone] Radha Espinoza RN Unavailable Unavailable Jacob Hernandez MD Unavailable [phone] Elissa Barnes Primary Care Provider [phone] Encounters Date Type Department Care Team Description 02/04/2024 Telephone M [facility] [address] 4[address] [place] [address] None Procedure (Request to cancel DCGI procedure) from Last 3 Months Allergies Active Allergy [...] calcitonin, salmon, (MIACALCIN) 200 UNIT/ACT nasal spray [place] 1 spray into one nostril alternating nostrils [...] original. Patient to receive IVIg infusions at [facility]: [phone] (T) [phone] (F) Problem Noted Date Diagnosed Date Trigger middle finger of right hand 12/07/2020 Overview: Added automatically from request for surgery [id number] Carpal tunnel syndrome of right wrist 12/07/2020 Overview: Added automatically from request for surgery [id number] UTI (urinary tract infection) 11/17/2017 IgM lambda [...] Next Due Flu, Unspecified 07/08/2019, 7,07/09/2016,2011,06/18/2011,08/05/2007,08/14/2006,1 ,09/06/2004,08/08/2003 Q9l1-50 Novel Flu 08/14/2009 Influenza (H1N1) 08/14/2009 Influenza [...] Comments Blood Pressure 122/85 09/14/2023 11:30 AM SUPERVISOR ANODIZING Pulse 92 09/14/2023 11:22 AM SUPERVISOR ANODIZING Temperature 36.4 ??C (97.6 ??F) 09/14/2023 11:[address] Respiratory Rate 14 09/14/2023 11:14 AM SUPERVISOR ANODIZING Oxygen Saturation 98% 09/14/2023 11:30 AM SUPERVISOR ANODIZING Inhaled Oxygen Concentration - - Weight 87.1 kg (192 lb) 09/14/2023 8:17 AM SUPERVISOR ANODIZING Height 172.7 cm (5' 8) 10/13/2023 1:08 PM SUPERVISOR ANODIZING Body Mass Index 29.19 09/14/2023 8:17 AM SUPERVISOR ANODIZING Plan of Treatment Not on file Procedures Procedure Name Priority Date/Time Associated Diagnosis Comments GLUCOSE BY METER Routine 09/14/2023 11:2 7 AM SUPERVISOR ANODIZING COLONOSCOPY Routine 07/25/2021 8:42 AM CDT HEPATITIS [...] * Glucose by meter (09/14/2023 11:27 AM SUPERVISOR ANODIZING) GLUCOSE BY METER POCT 97 70 - 99 mg/dL 09/14/2023 11:34 AM SUPERVISOR ANODIZING [facility] POC Blood, Capillary BLOOD SPECIMEN / Unknown 09/14/2023 11:27 AM SUPERVISOR ANODIZING 09/14/2023 11:34 AM SUPERVISOR ANODIZING [facility] [address] [facility] Lab (1st floor, no room number) [place] [address], [place] [phone] * COLONOSCOPY (07/25/2021 8:42 AM CDT) [facility] Patient Name: Cathy Raymond ? Procedure Date: [...] continuously. The ?Olympus Adult Colonoscope, Model # CF-MJ824R, ?[place] # [id number], SN # [id number] was introduced through ?the anus and advanced [...] Procedure Code(s): ? --- Professional --- ? 47829, Colonoscopy, flexible; diagnostic, including collection of ? specimen(s) by brushing or washing, when performed (separate procedure) Diagnosis Code(s): ? --- Professional --- ? Z12.11, Encounter for screening for malignant neoplasm of colon ? K63.89, Other specified diseases of intestine ? Q43.8, Other specified congenital malformations of intestine CPT copyright 2019 [employer]. All rights reserved. The codes documented in this report are preliminary and upon night cleaner review may be revised to meet current compliance requirements. Lyndon Arteaga M.D. ____ Lyndon Arteaga MD 07/25/2021 9:31:01 AM Number of Addenda: 0 Note Initiated On: 07/25/2021 8:42 AM MRN: ?[id number] Procedure Date: ? 07/25/2021 8:42:04 AM Scope [...] established for newborns, infants, and children NR [facility] 01/23/2017 11:5 2 AM CDT 01/23/2017 11:54 AM CDT Nikos Lovell MD LAB - BLOOD ORDERABL ES Performing Organization Address City/[facility]/ZIP Co de Phone Number [address] * TSH with free T4 reflex (01/19/2017 3:43 PM CDT) TSH 1.55 0.40 - 4.00 mU/L [facility] Blood specimen (specimen) 01/19/2017 3:43 PM CDT 01/19/2017 3:45 PM CDT Joanna Pulido MD LAB - BLOOD ORDERA BLES Performing Organization Address [facility]/[place] [address] * HIV Antigen Antibody Combo (12/17/2016 1:04 PM CDT) HIV Antigen Antibody Combo Nonreactive HIV-1 p24 Ag & HIV-1/HIV-2 Ab Not Detected NR [facility] Blood specimen (specimen) 12/17/2016 1:04 PM CDT 12/17/2016 1:06 PM CDT Jacob Hernandez MD LAB - BLOOD ORDERABL ES Performing Organization Address City/[facility]/[place] [address] * (ABNORMAL) HEMOGRAM W/ PLATELET COUNT (06/03/1999 [...] 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 Source: [email or web address] & [facility]. 10/03/2019 Advance Directives For more information, please contact: [phone] * Full Code (Latest Code Status on File) Date Activated Date Inactivated Comments 02/04/2017 8:21 AM 12/06/2018 8:11 AM Care Teams Whiting Can Worker Relationship Specialty Start Date End Date Elissa Barnes [address] [place] [address] PCP - General Physician Home Therapy Clinician 08/28/21 Dexter Sykes MD [facility] [address] [facility] [address] [place] [address] 09/15/16 Siva Hearn MD [facility] [address] [facility] [address] [place] [address] Neurology 09/15/16 Radha Espinoza, RN Registered Nurse Neurology 12/15/16 Jacob Hernandez MD [address] [place] [address] [id number] Assigned Neuroscience Provider 07/27/20
--- OUTSIDE RECORDS SUMMARY | 2024-02-08 17:17 | XMS_ITS | Clinical Summary ---
Author Name Unknown Organization [facility] Address [address] [place] [address]. [place] [address] Care Team Providers Care Transition Nurse Name Role Phone Dexter Sykes MD Unavailable [phone] Siva Hearn MD Unavailable [phone] Radha Espinoza RN Unavailable Unavailable Jacob Hernandez MD Unavailable [phone] Elissa Barnes Primary Care Provider [phone] Allergies Active Allergy Reactions Criticality Noted Date [...] calcitonin, salmon, (MIACALCIN) 200 UNIT/ACT nasal spray [place] 1 spray into one nostril alternating nostrils [...] original. Patient to receive IVIg infusions at [facility]: [phone] (T) [phone] (F) Problem Noted Date Diagnosed Date Trigger middle finger of right hand 12/07/2020 Overview: Added automatically from request for surgery [id number] Carpal tunnel syndrome of right wrist 12/07/2020 Overview: Added automatically from request for surgery [id number] UTI (urinary tract infection) 11/17/2017 IgM lambda [...] Type Department Care Team Description 02/04/2024 Telephone [facility] [address] 4th [place] [address] None Procedure (Request to cancel [facility] procedure) from Last 3 Months Immunizations Name Administration Dates Next Due Flu, Unspecified 07/08/2019, 7,07/09/2016,2011,06/18/2011,08/05/2007,08/14/2006,1 ,09/06/2004,08/08/2003 [id number] Novel Flu 08/14/2009 Influenza (H1N1) 08/14/2009 Influenza [...] Comments Blood Pressure 122/85 09/14/2023 11:30 AM ADAPTED PHYSICAL EDUCATION TEACHER Pulse 92 09/14/2023 11:22 AM ADAPTED PHYSICAL EDUCATION TEACHER Temperature 36.4 ??C (97.6 ??F) 09/14/2023 11:[address] Respiratory Rate 14 09/14/2023 11:14 AM ADAPTED PHYSICAL EDUCATION TEACHER Oxygen Saturation 98% 09/14/2023 11:30 AM ADAPTED PHYSICAL EDUCATION TEACHER Inhaled Oxygen Concentration - - Weight 87.1 kg (192 lb) 09/14/2023 8:17 AM ADAPTED PHYSICAL EDUCATION TEACHER Height 172.7 cm (5' 8) 10/13/2023 1:08 PM ADAPTED PHYSICAL EDUCATION TEACHER Body Mass Index 29.19 09/14/2023 8:17 AM ADAPTED PHYSICAL EDUCATION TEACHER Plan of Treatment Health Maintenance Due [...] BY METER Routine 09/14/2023 11:2 7 AM ADAPTED PHYSICAL EDUCATION TEACHER COLONOSCOPY Routine 07/25/2021 8:42 AM CDT HEPATITIS [...] * Glucose by meter (09/14/2023 11:27 AM ADAPTED PHYSICAL EDUCATION TEACHER) GLUCOSE BY METER POCT 97 70 - 99 mg/dL 09/14/2023 11:34 AM ADAPTED PHYSICAL EDUCATION TEACHER LABORATORY POC Blood, Capillary BLOOD SPECIMEN / Unknown 09/14/2023 11:27 AM ADAPTED PHYSICAL EDUCATION TEACHER 09/14/2023 11:34 AM ADAPTED PHYSICAL EDUCATION TEACHER [facility] [address] [facility] Lab (1st floor, no room number) [place] [address], [facility] [phone] * COLONOSCOPY (07/25/2021 8:42 AM CDT) COLONOSCOPY [facility] Patient Name: Cathy Raymond ? [...] continuously. The ?Olympus Adult Colonoscope, Model # CF-KF692G, ?Endora # 226, SN # [id number] was introduced through ?the anus and advanced [...] Procedure Code(s): ? --- Professional --- ? 16440, Colonoscopy, flexible; diagnostic, including collection of ? specimen(s) by brushing or washing, when performed (separate procedure) Diagnosis Code(s): ? --- Professional --- ? Z12.11, Encounter for screening for malignant neoplasm of colon ? K63.89, Other specified diseases of intestine ? Q43.8, Other specified congenital malformations of intestine CPT copyright 2019 [employer]. All rights reserved. The codes documented in this report are preliminary and upon digital photographic printer review may be revised to meet current compliance requirements. Lnydon Arteaga M.D. ____ Lyndon Arteaga MD 07/25/2021 9:31:01 AM Number of Addenda: 0 Note Initiated On: 07/25/2021 8:42 AM MRN: ?[id number] Procedure Date: ? 07/25/2021 8:42:04 AM Scope Withdrawal Time: 0 hours 11 minutes 25 seconds Total Procedure Duration: 0 hours 30 minutes 56 seconds Estimated Blood Loss: ? Scope In: 8:44:04 AM Scope Out: 9:15:00 AM RADIOLOGY RESULTS 07/25/2021 8:42 AM CDT Lyndon Arteaga MD PROCEDURES RADIOLOGY RESULTS * Hepatitis C antibody (01/23/2017 11:52 AM CDT) Pathologist [facility] Hepatitis C Antibody Nonreactive Assay performance characteristics have not been established for newborns, infants, and children NR [facility] 01/23/2017 11:5 2 AM CDT 01/23/2017 11:54 AM CDT Nikos Lovell MD LAB - BLOOD ORDERABL ES Performing Organization Address [facility] Co de Phone Number [address] * TSH with free T4 reflex (01/19/2017 3:43 PM CDT) Pathologist [facility] TSH 1.55 0.40 - 4.00 mU/L [facility] Blood specimen (specimen) 01/19/2017 3:43 PM CDT 01/19/2017 3:45 PM CDT Joanna Pulido MD LAB - BLOOD ORDERA BLES Performing Organization Address [facility] [place] [address] * HIV Antigen Antibody Combo (12/17/2016 1:04 PM CDT) Pathologist [facility] HIV Antigen Antibody Combo Nonreactive HIV-1 p24 Ag & HIV-1/HIV-2 Ab Not Detected NR [facility] Blood specimen (specimen) 12/17/2016 1:04 PM CDT 12/17/2016 1:06 PM CDT Jacob Hernandez MD LAB - BLOOD ORDERABL ES Performing Organization Address City/[facility]/ZIP Co de Phone Number [facility] [address] [place] [address] * (ABNORMAL) HEMOGRAM W/ PLATELET COUNT (06/03/1999 [...] 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 Source: [facility]. 10/03/2019 Advance Directives For more information, please contact: [phone] * Full Code (Latest Code Status on File) Date Activated Date Inactivated Comments 02/04/2017 8:21 AM 12/06/2018 8:11 AM Care Teams Transition Nurse Relationship Specialty Start Date End Date Elissa Barnes [address] [place] [address] PCP - General Physician Coding Clerk 08/28/21 Dexter Sykes MD [facility] [address] [address] 09/15/16 Siva Hearn MD [facility] [address] [place] [address] Neurology 09/15/16 Radha Espinoza, RN Registered Nurse Neurology 12/15/16 Jacob Hernandez MD [address] [place] [address] Assigned Neuroscience Provider 07/27/20
--- OUTSIDE RECORDS SUMMARY | 2024-02-08 17:18 | XMS_ITS | Encounter Summary ---
Author Name Unknown Organization [facility] Address [address] [place] [address]. [place] [address] Care Team Providers Care Recovery Auditor Name Role Phone Dexter Sykes MD Unavailable [phone] Siva Hearn MD Unavailable [phone] Nikos Ventura Primary Care Provider Unavailabl Radha Luis RN Unavailable Unavailable Jacob Hernandez MD Unavailable [phone] Ronn Howard MD Unavailable [phone] [facility] Primary Care Provider Luis Mock PA-C Unavailable Joanna Pulido MD Unavailable [phone] Elissa Barnes Primary Care Provider [phone] Reason for Visit * Reason Onset Date Comments Refill Request 02/16/2019 tenofovir (VIREA D) 300 MG tablet Encounter Details Date Type Department Care Team (Late st Contact Info) Description 02/16/2019 Telephone [facility] Neurology [address] [facility] [address] [place] [address] Jacob Hernandez MD [address] [place] [address] Refill Request (tenofovir (VIREAD) 300 [...] Rivera - 02/17/2019 3:13 PM CDT [facility] Phone Message May a detailed message be left on voicemail: yes Reason for Call: Other: pt called to let clinic know that they got the RX issue figured outand do not need the refill anymore. Action Taken: Message routed to: [facility] neuro * Telephone Encounter - [...] Curiel - 02/16/2019 11:59 AM CDT [facility] Phone Message May a detailed message be left on voicemail: yes Reason for Call: Medication Refill Request Has the patient contacted the pharmacy for the refill? Yes Name of medication being requested: tenofovir (VIREAD) 300 MG tablet Provider who prescribed the medication: Pharmacy: [facility] [id number] [place] [address] [address] [facility] [address] Date medication is needed: as soon as possible pt is out and will be leaving town soon. 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 Source: [facility]. 10/03/2019 documented as of this encounter Care Teams Recovery Auditor Relationship Specialty Start Date End Date Nikos Ventura [facility] [address] [address] PCP - General Family Practice 11/11/16 01/21/21 [facility] [address] [place] [address] PCP - General 01/22/21 08/27/21 Elissa Barnes [address] [place] [address] PCP - General Physician Vice President Residential Solar Sales 08/28/21 Dexter Sykes MD [facility] [address] [address] 09/15/16 Siva Hearn MD [facility] [address] [address] Neurology 09/15/16 Radha Espinoza, GEOFF Registered Nurse Neurology 12/15/16 Jacob Hernandez MD [address] [place] [address] Assigned Neuroscience Provider 07/27/20 [place] [id number] [address] Assigned Musculoskeletal Provider 12/09/20 02/09/21 Luis Mock PA-C [address] [address] Assigned Musculoskeletal Provider 02/10/21 08/08/22 Joanna Pulido MD [address] [place], [place] [address] Assigned Cancer Care Provider 04/28/21 04/24/23 documented as of this encounter
--- OUTSIDE RECORDS SUMMARY | 2024-02-08 17:18 | XMS_ITS | Encounter Summary ---
Author Name Unknown Organization [place] [facility] Address [address] [place] [address]. [place] [address] Care Team Providers Care Reed Dipper Name Role Phone Dexter Sykes MD Unavailable [phone] Siva Hearn MD Unavailable [phone] Nikos Ventura Primary Care Provider Unavailabl Radha Luis RN Unavailable Unavailable Jacob Hernandez MD Unavailable [phone] Ronn Howard MD Unavailable [phone] [facility] Primary Care Provider Luis Mock PA-C Unavailable [phone] Joanna Pulido MD Unavailable [phone] Elissa Barnes Primary Care Provider [phone] Encounter Details Date Type Department Care Team (Late st Contact Info) Description 01/30/2017 MyC Medical Advice M [facility] [place] [facility] General Surgery [address] [facility] [address] [place] [address] José Miguel Golden Social History [...] Time 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 Source: [facility]. 10/03/2019 documented as of this encounter Care Teams Reed Dipper Relationship Specialty Start Date End Date Audrey Riccardo [place] [address] [address] PCP - General Family Practice 11/11/16 01/21/21 [facility] [address] [place] [address] PCP - General 01/22/21 08/27/21 Elissa Barnes [address] [place] [address] PCP - General Physician Commissioned Sales Associate 08/28/21 Dexter Sykes MD [place] [address] [address] 09/15/16 Siva Hearn MD [place] [address] [address] Neurology 09/15/16 Radha Espinoza, GEOFF Registered Nurse Neurology 12/15/16 Jacob Hernandez MD [address] [place] [address] Assigned Neuroscience Provider 07/27/20 [place] [address] [address] Assigned Musculoskeletal Provider 12/09/20 02/09/21 Luis Mock [place] [address] [facility] [address] [place] [address] Assigned Musculoskeletal Provider 02/10/21 08/08/22 Joanna Pulido MD [address] [place] [address] Assigned Cancer Care Provider 04/28/21 04/24/23 documented as of this encounter
--- OUTSIDE RECORDS SUMMARY | 2024-02-08 17:18 | XMS_ITS | Encounter Summary ---
Author Name Unknown Organization [facility] Address [address] [place] [address]. [place] [address] Care Team Providers Care Supervisor Of Instruction Name Role Phone Dexter Sykes MD Unavailable [phone] Siva Hearn MD Unavailable [phone] Nikos Ventura Primary Care Provider Unavailabl Radha Luis RN Unavailable Unavailable Jacob Hernandez MD Unavailable [phone] Ronn Howard MD Unavailable [phone] [place] [address] Primary Care Provider Luis Mock PA-C Unavailable [phone] Joanna Pulido MD Unavailable [phone] Elissa Barnes Primary Care Provider Reason for Referral * Consultation - Closed Specialty Diagnoses / Procedures Referred By Yulissa wayne Referred To Contact Diagnoses Hepatitis B infection Jacob Hernandez MD [address] [place] [address] Referral ID Status Reason Start Date Expiration Date Visits Re quested Visits Authorized [id number] Closed 09/15/2018 09/15/2019 1 1 Question Answer Reason for Consult Other (Specify in Comments) Comments see GI for antiviral therapy prior to rituximab initiation. Preferred Location: [facility] Please be aware that coverage of these services is subject to the terms and limitations of your health insurance plan. Call member services at your health plan with any benefit or coverage questions. Any procedures must be performed at a [facility] facility OR coordinated by your clinic's referral office. Please bring the following with you to your appointment: (1) Any X-Rays, CTs or MRIs which have been performed. Contact the facility where they were done to arrange for car pick up driver prior to your scheduled appointment. (2) List of current medications (3) This referral request (4) Any documents/labs given to you for this referral DER SET UP OPERATOR SURFACE Reason for Visit * Reason Onset Date Comments Call Back 09/08/2018 Labs Encounter Details Date Type Department Care Team ([facility] st Contact Info) Description 09/08/[address] [facility] Neurology [address] [place] [address] Jacob Hernandez MD [address] [place] [address] Call Back (Labs) Social History Tobacco [...] She would like lab orders faxed to [facility] (phone: [phone]; fax: [phone]). This has been done. Patient plans to get labs done 09/09. DER SET UP OPERATOR SURFACE * Telephone Encounter - Royal Shen - 09/08/2018 11:08 AM CST [facility] Phone Message May a detailed message be left on voicemail: no Reason for Call: Other: Pt is returning Nicolette's call about completing labs that were ordered for her to do. Please call her back. Action Taken: Message routed to: [facility] DER SET UP OPERATOR SURFACE * Telephone Encounter - Nicolette Doshi RN - 09/08/2018 11:08 AM CST Unfortunately, Cathy's labs came back positive for Hepatitis B. Per Dr. Hernandez, she will need a GIreferral to be cleared to start Rituximab. Referral placed on behalf of Dr. Hernandez. Called patient and she would like th referral sent to [facility] (phone: [phone]; fax: [phone]). This has been done. 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 Source: [facility]. 10/03/2019 documented as of this encounter Care Teams Supervisor Of Instruction Relationship Specialty Start Date End Date Nikos Ventura [facility] [address] [address] PCP - General Family Practice 11/11/16 01/21/21 [facility], [facility] [address] [place] [address] PCP - General 01/22/21 08/27/21 Elissa Barnes [address] [place] [address] PCP - General Physician Felt Dyeing Machine Tender 08/28/21 Dexter Sykes MD [facility] [address] [facility] [address] [place] [address] 09/15/16 Siva Hearn MD [facility] [address] [facility] [address] [place] [address] Neurology 09/15/16 Radha Espinoza, GEOFF Registered Nurse Neurology 12/15/16 Jacob Hernandez MD [address] [place] [address] Assigned Neuroscience Provider 07/27/20 Ron[place] [id number] [place] [address] Assigned Musculoskeletal Provider 12/09/20 02/09/21 Luis Mock, PA-C [id number] [place] [address] Assigned Musculoskeletal Provider 02/10/21 08/08/22 Joanna Pulido MD [address] [place] [address] Assigned Cancer Care Provider 04/28/21 04/24/23 documented as of this encounter
--- OUTSIDE RECORDS SUMMARY | 2024-02-08 17:18 | XMS_ITS | Encounter Summary ---
Author Name Unknown Organization [facility] Address [address] [place] [address]. [place] [address] Care Team Providers Care Transit Proof Machine Operator Name Role Phone Dexter Sykes MD Unavailable [phone] Siva Hearn MD Unavailable [phone] Nikos Ventura Primary Care Provider Unavailabl Radha Luis RN Unavailable Unavailable Jacob Hernandez MD Unavailable [phone] Ronn Howard MD Unavailable [phone] [facility] Primary Care Provider Luis Mock PA-C Unavailable Joanna Pulido MD Unavailable [phone] Elissa Barnes Primary Care Provider Reason for Visit * Reason Onset Date Comments Patient/info Update 09/23/2018 Pt is in LTC Facility due to broken femur Call Back 09/23/2018 Encounter Details Date Type Department Care Team ([facility] st Contact Info) Description 09/23/2018 Telephone [facility] Neurology [address] [facility] 3rd [place] [address] Jacob Hernandez MD 9 [place] [address] Patient/info Update (Pt is in [...] Ed know the November appointment was cancelled. VIORAL HEALTH ASSISTANT * Telephone Encounter - Joanie Fam - [...] to: [facility] Neurology VIORAL HEALTH ASSISTANT * Telephone Encounter - Nicolette Doshi RN - 09/30/2018 2:55 PM CST Called to schedule patient appointment at [facility] in [place]. Patient already had an appointment set up for 11/23/18 but we need it sooner than that. They are able to see her 10/11/18 at 1:10p at their [place] location. I have rescheduled the patient for this. I called GINNY Carolina at [facility] (phone: [phone]) and she will work on setting up a transportation ride. I also called patient's Ed and made him aware of this by leaving a [facility]. VIORAL HEALTH ASSISTANT * Telephone Encounter - Cathie Lynn - 09/29/2018 4:05 PM CST [facility] Phone Message May a detailed message be left on voicemail: yes Reason for Call: Other: Ed called in, said he was returning Nicolette's call. Please give him another call back. Action Taken: Message routed to: [facility] ([facility]): Neurology VIORAL HEALTH ASSISTANT * Telephone Encounter - Nicolette Doshi RN - 09/29/2018 2:53 PM CST Called and left a VMM for social services designee at [facility] requesting a call back to discuss coordinating GI appointment and wheelchair transport. Also called patient's , Ed and urged him to contact [facility] in [place] to set up an appointment so we can work on scheduling transport. Asked for a call back with questions. VIORAL HEALTH ASSISTANT * Telephone Encounter - Nicolette Doshi RN - 09/27/2018 9:59 AM CST Called and left another VMM for Ruchi asking for a call back linda to discuss setting up a GI appointment and transportation. VIORAL HEALTH ASSISTANT * Telephone Encounter - Nicolette Doshi RN - 09/24/2018 2:42 PM CST Called and spoke with Cathy. She is residing at [facility] recovering from surgery to repair a fractured femur. She is non-weight bearing for about 6 weeks. She tells me it will be very difficult to get to a GI appointment. She is open to doing this if the care facility will help coordinate a wheelchair transportation ride. I called the care facility (phone: [phone]) and left a VMM for Shebly requesting a call back to discuss this. VIORAL HEALTH ASSISTANT * Telephone Encounter - Royal Shen - 09/23/2018 3:06 PM CST [facility] Call Center Phone Message May a detailed message be left on voicemail: no Reason for Call: Other: Pt's Jai called to speak with Nicolette; he said the Pt is in a correction care facility due to breaking her femur and recovering there right now. Dr. Hernandez referred her to a gastro provider but she won't be able to do this for some time. Please call him with any questions/concerns. 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 Source: [facility]. 10/03/2019 documented as of this encounter Care Teams Transit Proof Machine Operator Relationship Specialty Start Date End Date Nikos Ventura [address] [address] PCP - General Family Practice 11/11/16 01/21/21 [facility] [address] [place] [address] PCP - General 01/22/21 08/27/21 Elissa Barnes [address] [place] [address] PCP - General Physician Milker Machine 08/28/21 Dexter Sykes MD [address] [address] 09/15/16 Siva Hearn MD [address] [address] Neurology 09/15/16 Radha Espinoza, RN Registered Nurse Neurology 12/15/16 Jacob Hernandez MD [address] [place] [address] Assigned Neuroscience Provider 07/27/20 [place] [address] [facility] [address] [place], [place] [address] Assigned Musculoskeletal Provider 12/09/20 02/09/21 Luis Mock PA-C [address] [facility] [address] [place], [place] [address] Assigned Musculoskeletal Provider 02/10/21 08/08/22 Joanna Pulido MD [address] [place] [address] Assigned Cancer Care Provider 04/28/21 04/24/23 documented as of this encounter
--- OUTSIDE RECORDS SUMMARY | 2024-02-08 17:18 | XMS_ITS | Encounter Summary ---
Author Name Unknown Organization [place] Address [address] [place] [address]. [place] [address] Care Team Providers Care Produce Department Supervisor Name Role Phone Dexter Sykes MD Unavailable [phone] Siva Hearn MD Unavailable [phone] Nikos Ventura Primary Care Provider Unavailabl Radha Luis RN Unavailable Unavailable Jacob Hernandez MD Unavailable [phone] Ronn Howard MD Unavailable [phone] [facility] Primary Care Provider Luis Mock PA-C Unavailable Joanna Pulido MD Unavailable [phone] Elissa Barnes Primary Care Provider Reason for Visit * Reason Onset Date Comments Call Back 05/12/2019 Office Notes Encounter Details Date Type Department Care Team (Late st Contact Info) Description 05/12/2019 Telephone Outpatient [facility] [address],Clinic 1F 516 [facility] 88 [place], [place] [address] Jacob Hernandez MD 909 [place], [place] [address] Call Back (Office Notes) Social History Tobacco [...] Louisa Hogan - 05/12/2019 9:08 AM CDT Health Call Center Phone Message May a detailed message be left on voicemail: yes Reason for Call: Other: Judi the Rn from [facility] is calling to speak with Nicolette or have Nicolette fax over the office notes on this pt. For further clarification please call Judi. 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 Source: [facility] 10/03/2019 documented as of this encounter Care Teams Produce Department Supervisor Relationship Specialty Start Date End Date Nikos Ventura [facility]Y [address] [facility] [address] [place] [address] PCP - General Family Practice 11/11/16 01/21/21 [facility] 1400 [place] [address] PCP - General 01/22/21 08/27/21 Elissa Barnes 1400 [place] [address] PCP - General Physician Real Property Appraiser 08/28/[address] [facility] NE[facility]OLOG[facility] [address] [address] 09/15/[address] [facility] NE[facility] [address] [address] Neurology 09/15/16 Radha Espinoza, GEOFF Registered Nurse Neurology 12/15/16 Jacob Hernandez MD [address] [place] [address] Assigned Neuroscience Provider 07/27/20 Ronn Howard MD [address] [place] [address] Assigned Musculoskeletal Provider 12/09/20 02/09/21 Luis Mock, PA-C [id number] [place] [address] Assigned Musculoskeletal Provider 02/10/21 08/08/22 Joanna Pulido MD [address] [place] [address] Assigned Cancer Care Provider 04/28/21 04/24/23 documented as of this encounter
--- OUTSIDE RECORDS SUMMARY | 2024-02-08 17:18 | XMS_ITS | Encounter Summary ---
Author Name Unknown Organization [place] Address [address] [place] [address]. [place] [address] Care Team Providers Care Catcher Helper Name Role Phone Dexter Sykes MD Unavailable [phone] Siva Hearn MD Unavailable [phone] Nikos Ventura Primary Care Provider Unavailabl Radha Luis RN Unavailable Unavailable Jacob Hernandez MD Unavailable [phone] Ronn Howard MD Unavailable [phone] [facility] Primary Care Provider Luis Mock PA-C Unavailable Joanna Pulido MD Unavailable [phone] Elissa Barnes Primary Care Provider [phone] Reason for Visit * Reason Onset Date Comments Call Back 01/04/2020 Call Back 01/04/2020 Call Back Encounter Details Date Type Department Care Team (Late st Contact Info) Description 01/04/2020 Telephone [facility] 1st Floor, [place] R[address] [place] [phone] Jacob Hernandez MD 909 [place], [place] [address] Call Back; Call Back (Call Back) Social [...] with patient. She rec'd IVIG yesterday at [facility] and is scheduled again 01/24. She is [...] Yesenia Ndiaye - 01/04/2020 3:13 PM CDT [facility] Call Center Phone Message May a detailed message be left on voicemail: no Reason for Call: Other: Pt, Cathy calling Nicolette back. Please call her at: [phone] Action Taken: Message routed to: [facility] Neurology Travel Screening: Not Applicable * Telephone Encounter - Nicolette Doshi RN - 01/04/2020 2:38 PM CDT Called patient and left [facility] requesting a call back. 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 Source: [facility] [employer] [facility]. 10/03/2019 documented as of this encounter Care Teams Catcher Helper Relationship Specialty Start Date End Date Nikos Ventura [facility] E [address] [address] PCP - General Family Practice 11/11/16 01/21/21 [facility] 1400 [place] [address] PCP - General 01/22/21 08/27/21 Elissa Barnes [address] [place] [address] PCP - General Physician Clinical Nurse Reviewer 08/28/21 Dexter Sykes MD [address] [address] 09/15/16 Siva Hearn MD [facility] NEUR[facility] E [address] [address] Neurology 09/15/16 Radha Espinoza, RN Registered Nurse Neurology 12/15/16 Jacob Hernandez MD [address] [place] [address] Assigned Neuroscience Provider 07/27/20 [place] [address] [address] Assigned Musculoskeletal Provider 12/09/20 02/09/21 Luis Mock, NEHA [address] [address] Assigned Musculoskeletal Provider 02/10/21 08/08/22 Joanna Pulido MD [address] [place] [address] 257655 Assigned Cancer Care Provider 04/28/21 04/24/23 documented as of this encounter
--- OUTSIDE RECORDS SUMMARY | 2024-02-08 17:18 | XMS_ITS | Encounter Summary ---
Author Name Unknown Organization [place] Address [address] [place] [address]. [place] [address] Care Team Providers Care Hoister Name Role Phone Dexter Sykes MD Unavailable [phone] Siva Hearn MD Unavailable [phone] Nikos Ventura Primary Care Provider Unavailabl Radha Luis RN Unavailable Unavailable Jacob Hernandez MD Unavailable [phone] Ronn Howard MD Unavailable [phone] [facility] Primary Care Provider Luis Mock PA-C Unavailable Joanna Pulido MD Unavailable [phone] Elissa Barnes Primary Care Provider Encounter Details Date Type Department Care Team (Late st Contact Info) Description 02/11/2017 [facility] [address] [place] [phone] Joanna Pulido MD [address] [place] [address] Social History Tobacco Use Types Packs/Day [...] Time 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 Source: [facility]. 10/03/2019 documented as of this encounter Care Teams Hoister Relationship Specialty Start Date End Date Nikos Ventura [facility] OF NEUROLOGY [facility] E [address] [address] PCP - General Family Practice 11/11/16 01/21/[address] [address] PCP - General 01/22/21 08/27/21 Elissa Barnes [address] [place] [address] PCP - General Physician Insurance Assistant 08/28/21 Dexter Sykes MD [place] [address] [address] 09/15/16 Siva Hearn MD [place] [address] [address] Neurology 09/15/16 Radha Espinoza, GEOFF Registered Nurse Neurology 12/15/16 Jacob Hernandez MD 909 [place] [address] Assigned Neuroscience Provider 07/27/20 [place] [address] 297[address] Assigned Musculoskeletal Provider 12/09/20 02/09/21 Luis Mock, PAMagnoliaC [address] [address] Assigned Musculoskeletal Provider 02/10/21 08/08/22 Joanna Pulido MD [address] [place] [address] Assigned Cancer Care Provider 04/28/21 04/24/23 documented as of this encounter
--- OUTSIDE RECORDS SUMMARY | 2024-02-08 17:18 | XMS_ITS | Encounter Summary ---
Author Name Unknown Organization [place] Address [address] [place] [address]. [place] [address] Care Team Providers Care Research Executive Name Role Phone Dexter Sykes MD Unavailable [phone] Siva Hearn MD Unavailable [phone] Nikos Ventura Primary Care Provider Unavailabl Radha Luis RN Unavailable Unavailable Jacob Hernandez MD Unavailable [phone] Ronn Howard MD Unavailable [phone] [facility] Primary Care Provider Luis Mock PA-C Unavailable Joanna Pulido MD Unavailable [phone] Elissa Barnes Primary Care Provider Reason for Visit * Reason Onset Date Comments Referral 09/17/2018 denying GI refer ral Encounter Details Date Type Department Care Team ([facility] st Contact Info) Description 09/17/2018 Telephone [facility] Neurology 909 [facility] 3rd [place] [address] Jacob Hernandez MD [address] [place] [address] Referral (denying GI referral) Social History [...] 10:36 AM CST GI referral faxed to [facility] (phone: [phone]; fax: [phone]). CONTROL SPECIALIST * Telephone Encounter - Yanely Perez - 09/20/2018 2:54 PM CST [facility] Phone Message May a detailed message be left on voicemail: yes Reason for Call: Other: Pts Ed calling to say that they would need to go to a GI clinic as close to [place] as possible due to the fact that pt broke her femur and she'll be in rehab for awhile. Action Taken: Message routed to: [facility] NEUROLOGY CONTROL SPECIALIST * Telephone Encounter - Nicolette Doshi RN - 09/20/2018 12:20 PM CST Called and left a M for patient requesting a call back to discuss where she would like the referral sent. 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 Source: [facility]. 10/03/2019 documented as of this encounter Care Teams Research Executive Relationship Specialty Start Date End Date Nikos Ventura [place] [address] [address] PCP - General Family Practice 11/11/16 01/21/[address] [address] PCP - General 01/22/21 08/27/21 Elissa Barnes [address] [place] [address] PCP - General Physician Mobile Ui Developer 08/28/21 Dexter Sykes MD [address] [address] 09/15/16 Siva Hearn MD [address] [address] Neurology 09/15/16 Radha Espinoza, GEOFF Registered Nurse Neurology 12/15/16 Jacob Hernandez MD 909 [place] [address] Assigned Neuroscience Provider 07/27/20 [place] [address] [address] Assigned Musculoskeletal Provider 12/09/20 02/09/21 Luis Mock PA-C [address] [address] Assigned Musculoskeletal Provider 02/10/21 08/08/22 Joanna Pulido MD 909 [place] [address] Assigned Cancer Care Provider 04/28/21 04/24/23 documented as of this encounter
--- OUTSIDE RECORDS SUMMARY | 2024-02-08 17:18 | XMS_ITS | Encounter Summary ---
Author Name Unknown Organization [place] Address [address] [place] [address]. [place] [address] Care Team Providers Care Abstract Manager Name Role Phone Dexter Sykes MD Unavailable [phone] Siva Hearn MD Unavailable [phone] Nikos Ventura Primary Care Provider Unavailabl Radha Luis RN Unavailable Unavailable Jacob Hernandez MD Unavailable [phone] Ronn Howard MD Unavailable [phone] [facility] Primary Care Provider Luis Mock PA-C Unavailable [phone] Joanna Pulido MD Unavailable [phone] Elissa Barnes Primary Care Provider Reason for Visit * Reason Onset Date Comments Call Back 11/30/2018 PICC for IVIG tr migue Encounter Details Date Type Department Care Team (Late st Contact Info) Description 11/30/2018 Telephone [facility] Neurology 909 [facility] 3rd [place] [address] Jacob Hernandez MD [address] [place] [address] Call Back (PICC for IVIG treatments) [...] proceed with the testing. Called and left [facility] for patient letting her know that Dr. Hernandez didn't order the GI procedures but that she should proceed with testing. Asked for a call back with questions. REPAIRER * Telephone Encounter - Nicolette Doshi RN - 12/01/2018 1:41 PM CST Spoke with Thu at [facility]; who tells me that because Cathy has [...] go and if problem persists, they will [place] back with us and we can re-evaluate need. Called patient and discussed the plan above; patient is agreeable to the plan. OF NOTE: patient tells me she is scheduled for a esophagoscopy/gastroscopy/duodenoscopy on 12/[address] Beach. Patient is under the assumption that this is at Dr. Hernandez's recommendation. Dr. Hernandez, please let me know your thoughts. REPAIRER * Telephone Encounter - Nicolette Doshi RN - 11/30/2018 11:[address] Hernandez, please see below. Assuming you do not want to move forward with a central line. Please advise. Also, have you reviewed GIs note? Is patient clear to proceed with rituximab? 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 Source: [employer] [facility]. 10/03/2019 documented as of this encounter Care Teams Abstract Manager Relationship Specialty Start Date End Date Nikos Ventura [address] [address] PCP - General Family Practice 11/11/16 01/21/21 [facility] 1400 [place] [address] PCP - General 01/22/21 08/27/21 Elissa Barnes 1400 [place] [address] PCP - General Physician Lens Examiner 08/28/21 Dexter Sykes MD [place] [address] [address] 09/15/16 Siva Hearn MD [facility] CLINIC OF NEUROLOGY [address] [address] Neurology 09/15/16 Radha Espinoza, GEOFF Registered Nurse Neurology 12/15/16 Jacob Hernandez MD [address] [place] [address] Assigned Neuroscience Provider 07/27/20 [place] [address] [address] Assigned Musculoskeletal Provider 12/09/20 02/09/21 Luis Mock, PA-C [address] [address] Assigned Musculoskeletal Provider 02/10/21 08/08/22 Joanna Pulido MD [address] [place] [address] Assigned Cancer Care Provider 04/28/21 04/24/23 documented as of this encounter
--- OUTSIDE RECORDS SUMMARY | 2024-02-08 17:18 | XMS_ITS | Encounter Summary ---
Author Name Unknown Organization [place] Address [address] [place] [address]. [place] [address] Care Team Providers Care Sas Administrator Name Role Phone Dexter Sykes MD Unavailable [phone] Siva Hearn MD Unavailable [phone] Nikos Ventura Primary Care Provider Unavailabl Radha Luis RN Unavailable Unavailable Jacob Hernandez MD Unavailable [phone] Ronn Howard MD Unavailable [phone] [facility] Primary Care Provider Luis Mock PA-C Unavailable [phone] Joanna Pulido MD Unavailable [phone] Elissa Barnes Primary Care Provider Encounter Details Date Type Department Care Team (Late st Contact Info) Description 02/05/2017 [facility] Medical Advice [facility] Neurology [address] [address] Radha Espinoza, RN Social History [...] infection. Source: [facility]. 10/03/2019 documented as of this encounter Care Teams Sas Administrator Relationship Specialty Start Date End Date Audrey Riccardo [place] [address] [address] PCP - General Family Practice 11/11/16 01/21/21 [facility] 1400 [place] [address] PCP - General 01/22/21 08/27/21 Elissa Barnes 1400 [place] [address] PCP - General Physician Rural Route Mail Carrier 08/28/21 Dexter Sykes MD [place] [address] [address] 09/15/16 Siva Hearn MD [place] [address] [address] Neurology 09/15/16 Radha Espinoza, GEOFF Registered Nurse Neurology 12/15/16 Jacob Hernandez MD [address] [place] [address] Assigned Neuroscience Provider 07/27/20 [place] [address] [address] Assigned Musculoskeletal Provider 12/09/20 02/09/21 Luis Mock PAMagnoliaC [address] [facility] [address] [place] [address] Assigned Musculoskeletal Provider 02/10/21 08/08/22 Joanna Pulido MD 909 [place] [address] Assigned Cancer Care Provider 04/28/21 04/24/23 documented as of this encounter
--- OUTSIDE RECORDS SUMMARY | 2024-02-08 17:18 | XMS_ITS | Encounter Summary ---
Author Name Unknown Organization [place] Address [address] [place] [address]. [place] [address] Care Team Providers Care Sugar Reprocess Operator Head Name Role Phone Dexter Sykes MD Unavailable [phone] Siva Hearn MD Unavailable [phone] Nikos Ventura Primary Care Provider Unavailabl Radha Luis RN Unavailable Unavailable Jacob Hernandez MD Unavailable [phone] Ronn Howard MD Unavailable [phone] [facility] Primary Care Provider Luis Mock PA-C Unavailable [phone] Joanna Pulido MD Unavailable [phone] Elissa Barnes Primary Care Provider [phone] Encounter Details Date Type Department Care Team (Late st Contact Info) Description 02/14/2019 Telephone [facility] [address],Clinic 1F 516 [facility] 88 [place], [place] [address] Jacob Hernandez MD 909 [place] [address] Social History Tobacco Use Types [...] Time 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 Source: [facility]. 10/03/2019 documented as of this encounter Care Teams Sugar Reprocess Operator Head Relationship Specialty Start Date End Date Nikos Ventura [facility] NEUROLOGY [address] [address] PCP - General Family Practice 11/11/16 01/21/21 [facility] 1400 [place] [address] PCP - General 01/22/21 08/27/21 Elissa Barnes [address] [place] [address] PCP - General Physician Vendor Specialist 08/28/21 Dexter Sykes MD [address] [address] 09/15/16 Siva Hearn MD [address] [address] Neurology 09/15/16 Radha Espinoza, GEOFF Registered Nurse Neurology 12/15/16 Jacob Hernandez MD [address] [place] [address]9945 Assigned Neuroscience Provider 07/27/20 Ronn Howard [place] [address] [place] [address] Assigned Musculoskeletal Provider 12/09/20 02/09/21 Luis Mock, PA-C [address] [address] Assigned Musculoskeletal Provider 02/10/21 08/08/22 Joanna Pulido MD [address] [place] [address] Assigned Cancer Care Provider 04/28/21 04/24/23 documented as of this encounter
--- OUTSIDE RECORDS SUMMARY | 2024-02-08 17:18 | XMS_ITS | Encounter Summary ---
Author Name Unknown Organization [employer] Address [address] [place] [address]. [place] [address] Care Team Providers Care District Resource Officer Name Role Phone Dexter Sykes MD Unavailable [phone] Siva Hearn MD Unavailable [phone] Nikos Ventura Primary Care Provider Unavailabl Radha Luis RN Unavailable Unavailable Jacob Hernandez MD Unavailable [phone] Ronn Howard MD Unavailable [phone] [place] [address] Primary Care Provider Luis Mock PA-C Unavailable Joanna Pulido MD Unavailable [phone] Elissa Barnes Primary Care Provider Encounter Details Date Type Department Care Team (Late st Contact Info) Description 10/18/2019 Telephone [facility] 1st Floor, [place] R[address] [place] [phone] Jacob Hernandez MD 909 [place] [address] Social History Tobacco Use Types [...] May a detailed message be left on [employer]? Yes, leave a detailed message. 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 Source: [facility]. 10/03/2019 documented as of this encounter Care Teams District Resource Officer Relationship Specialty Start Date End Date Nikos Ventura [facility] NEUROLOGY [facility] E [address] [address] PCP - General Family Practice 11/11/16 01/21/[address] [address] PCP - General 01/22/21 08/27/21 Elissa Barnes [address] [place] [address] PCP - General Physician Tank Driver 08/28/21 Dexter Sykes MD [place] [address] [address] 09/15/16 Siva Hearn MD [facility] [address] [place] [address] [place] [address] Neurology 09/15/16 Radha Espinoza, RN Registered Nurse Neurology 12/15/16 Jacob Hernandez MD 909 [place] [address] Assigned Neuroscience Provider 07/27/20 [place] [address] [facility] [place] [address] [place] [address] Assigned Musculoskeletal Provider 12/09/20 02/09/21 Luis Mock, PA-C [address] [facility] 300 [place] [address] Assigned Musculoskeletal Provider 02/10/21 08/08/22 Joanna Puldio MD 9 [place], [place] [address] Assigned Cancer Care Provider 04/28/21 04/24/23 documented as of this encounter
--- OUTSIDE RECORDS SUMMARY | 2024-02-08 17:18 | XMS_ITS | Data Portability ---
Author Name Unknown Address [address] [place] [address] Phone [phone] Organization [facility] Address [address] [place] [address] Care Team Providers Care Vacuum Worker Name Role Phone VERÓNICA GANN Primary Care Provider [phone] Assessment No assessment recorded. Plan of Treatment Reminders Order Date Submit Date Provider Last Modified By Organization Details Last Modified Time Details Appointments None recorded. Lab urinalysis , dipstick 2021 022 [email or web address] [facility], [address] [place], [address], 10:29:58 culture, urine 2021 022 [facility], [address], [address], [place], [address], 11:33:08 Referral None recorded. Procedures None recorded. Surgeries None recorded. Imaging CT, abdomen + pelvis, w/o contrast 2021 022 [email or web address] [facility], [address], [place], [address], 12:11:44 Medication Orders Myrbetriq 50 mg tablet,ext ended release 2021 022 [email or web address] [id number], [address], [place], [place], [phone], 10:47:47 Patient TargetsNo targets recorded. Patient InstructionsNo instructions recorded. Reason for Referral None Reported. Results Created Date Observation Date Name Description Value Unit Range Abnormal Flag LastModifiedBy Organization Detail LastModifiedTime 06/30/20 22 06/30/2022 URINE CULTU RE final report microb iology result s abnormal Not Available [facility] [address], [place], [address], 07/02/2022 11:33:08 06/30/20 22 06/30/2022 urina lysis , dipst ick pH-Status 6.5 Not Available [facility] [address], [place], [address], 06/30/2022 10:29:43 06/30/20 22 06/30/2022 urina lysis , dipst ick Leuko-Status Trace Not Available [facility] [address], [place], [address], 06/30/2022 10:29:43 07/01/20 22 06/30/2022 bladd er scan (PROC ) No observ ation record ed. BARCODE Not Available 07/01/2022 17:32:51 Result Notes None recorded. Procedures Surgical History Date Name Laterality Status Provider Name and Address Organization Details Recorded Time 2 Bladder Scan completed Rosaura kaufman [facility] 06/30/2022 10:29:37 1 colonoscopy completed Rosaura kaufman [facility] 06/30/2022 10:28:55 Imaging Results Imaging Date Name Status LastModified by Organiz ation Details LastModified Time 06/30/2022 bladder scan (PROC) completed BARCODE Information not available 07/01/2022 17:32:51 Procedure Notes None recorded. Medical Equipment None Reported. Allergies Allergen ID Allergen Name Allergen Category Reaction Reaction Severity Criticality Documentation Date Start Date Code Code System Note Provider Name and Address Organization Details Recorded Time 157734 Bactrim medicatio n Not available Not available Not available 06/30/2022 [address] [facility] 2 10:30:09 184422 adhesive environme nt,medica tion Not available Not available Not available 06/30/2022 [facility] 10:30:15 910071 aspirin medicatio n Not available Not available Not available 06/30/2022 1191 RxNorm Rosaura Chisholm [facility] 2 10:30:22 029699 Augmentin medicatio n Not available Not available Not available 06/30/2022 26263 2 RxNorm [facility] 10:30:29 562995 clavulani c acid Not available Not available Not available Not available 06/30/2022 34095 RxNorm Rosauracata Chisholm [facility] 2 10:30:39 358020 hydrocodo ne Not available Not available Not available Not available 06/30/2022 5489 RxNorm Rosauracata Chisholm [facility] 2 10:30:50 Medications Name Sig Start [...] AND AT TIME OF MRI NEEDED. HAVE PLANT TECH active Not Available Not Available No t [...] Updated DateTime 06/30/2022 172.72 cm 31.9 kg/m2 04488.[address] [facility] 06/30/2022 10:28:15 Social History Question Answer Notes LastModified by Organizat ion Details LastModified Time Tobacco Smoking Status Former Smoker Rosaura kaufman [facility] 06/30/2022 10:28:43 When Did You Quit [...] Encounter Closed Date Diagnosis/Indication Diagnosis SNOMED-CT Code [id number] Chuckie Coronado MD [facility] [address] [place] [address] 06/30/2022 10:11:25 07/04/2022 13:32:11 Urgent desire to urinate 76812542 Recurrent urinary tract infection 602128724 Health Concerns Section Related Observation LastModified by Organization Detai ls LastModified Time None Recorded Concern Status LastModified by Organization Details LastModified Time None Recorded Advance Directives Directive None Recorded Payers Encounter Date Sequence Insurance Name Policy Number Policy Landeros Covered Member ID Landeros Member ID Guarantor Name 06/30/2022 1 [employer] - DOS ON OR AFTER 19 (MEDICARE REPLACEMENT/ ADVANTAGE - HMO) [id number] Cathy Raymond [id number] Cathy Raymond Notes Date Note Type Note [...] = 19 mL Chuckie Coronado MD [address], [place], [address], [facility] 07/01/2022 16:21:34 OBGyn Episode No OBEpisode recorded.
== END 2024-02-02 09:57 | disposition home or self-care (01) ==
LOC: AMB 02-08 17:11
PROVIDERS: PCP Physician Assistant Medical; Visit Provider Emergency Medicine
DX: M25.561 Pain in right knee (principal)
CPT/HCPCS: A0425; A0427

== ENCOUNTER 2024-02-02 10:34 | Emergency (ER) | payer OTHER, SELFPAY ==
[2024-02-02] VITALS (20 sets, daily range): BP systolic 106–130; BP diastolic 70–82; PULSE 87–96; RESP 20; TEMP 37.2; O2SAT 95–100; BMI 31.2
--- NOTE | 2024-02-02 | XR_ITS ---
Patient: AJAY AWAD Facility:?[facility] Patient ID:?[id number] Site Patient ID:?[id number]. Site :?[id number] Study:?XRay-Chest 1 view AP-02/02/2024 12:29:57 PM Ordering Physician:Alfredo Xavier Final Report: INDICATION: Trauma. TECHNIQUE: Chest radiograph, 1 view. COMPARISON: CT chest abdomen and pelvis 10/05/2020. FINDINGS: Cardiovascular/Mediastinum: Normal heart size. Unremarkable. Lungs: No focal consolidation. Linear bandlike opacifications of the lungs bilaterally, likely subsequent atelectasis and/or scarring Airways: Trachea remains midline. Pleura: No pleural effusions or pneumothorax. Bones: No acute osseous abnormalities. Moderate degenerative changes of the acromioclavicular joints bilaterally. Upper abdomen: Unremarkable. IMPRESSION: No acute cardiopulmonary process. No acute displaced rib fractures, pleural effusions or pneumothorax. Dictated by Roberto Dai MD @ 02/02/2024 12:48:52 PM Signed by:?Roberto Dai MD @02/02/2024 12:48:52 PM (Electronic Signature)
--- NOTE | 2024-02-02 11:14 | XR_ITS ---
Patient: AJAY AWAD Facility:?[facility] Patient ID:?[id number] Site Patient ID:?[id number]. Site :?[id number] Study:?XRay-Knee Right 2 VIEW-02/02/2024 11:51:18 AM Ordering Physician:LULU HERNANDEZ Final Report: Indication: Twisted knee. Unable to bear weight. Technique: Right knee two views. Comparison: 09/03/2012. Findings: There is an obliquely oriented overlapping fracture involving the right femoral diaphysis with medial and posterior displacement of the distal fracture fragment. The fracture is incompletely visualized. Right knee arthroplasty appears appropriately positioned. No additional osseous abnormality. No radiopaque foreign body evident in the soft tissues. Impression: Displaced overlapping fracture of the right femoral diaphysis is incompletely visualized. Dedicated right femur radiographs may prove useful for further evaluation. Dictated by Manuel Wyatt MD @ 02/02/2024 12:13:00 PM Signed by:?Manuel Wyatt MD @02/02/2024 12:13:00 PM (Electronic Signature)
[2024-02-02 11:32] LABS: HCO3 VBG 27 mmol/L (21-28); PCO2 VBG 34 mmHG (40-50); PO2 VBG < 30.1 mmHG (25-47)
--- NOTE | 2024-02-02 11:35 | XR_ITS ---
Patient: AJAY AWAD Facility:?[facility] Patient ID:?[id number] Site Patient ID:?[id number]. Site :?1965 Study:?XRay-Extremity Right Femur 2v-02/02/2024 12:29:21 PM Ordering Physician:?Ashley Xavier Final Report: INDICATION: Trauma. TECHNIQUE: Right femur radiographs, 2 views. COMPARISON: None. FINDINGS: Acute displaced obliquely oriented fracture of the distal right femoral diaphyseal shaft. There is proximally 5.0 cm of impaction. Postsurgical changes from a prior total right knee arthroplasty. The orthopedic hardware appears intact without evidence of loosening or failure. Mild diffuse nonspecific soft tissue edema. No other radiopaque foreign bodies identified. IMPRESSION: Acute displaced fracture of the distal right femoral shaft with approximally 5.0 cm of impaction. Dictated by Roberto Dai MD @ 02/02/2024 12:45:39 PM Signed by:?Roberto Dai MD @02/02/2024 12:45:39 PM (Electronic Signature)
[2024-02-02 11:41] LABS: Basophils Absolute Auto 0.02 K/uL (0.00-0.30); Basophils Percent Auto 0.2 % (0.0-3.0); Eosinophils Absolute Auto 0.01 K/uL (0.00-0.50); Eosinophils Percent Auto 0.1 % (0.0-7.0); Hematocrit 33.8 % (33.0-51.0); Hemoglobin* 11.2 gm/dL (12.0-16.0); Immature Granulocytes Abs Auto 0.02 K/uL (0.00-0.30); Immature Granulocytes Pct Auto 0.2 %; Lymphocytes Percent Auto 8.4 % (20-44); Mean Corpuscular HGB Conc 33 gm/dL (32-36); Mean Corpuscular Hemoglobin 31 pg (26-34); Mean Corpuscular Volume 92 fL (80-100); Monocytes Percent Auto 7.2 % (0.0-11.0); Neutrophils Percent Auto 83.9 % (42.0-72.0); Platelet Count* 230 K/uL (140-440); RDW Coefficient of Variation % 13.4 % (11.5-15.5); Red Blood Count 3.66 m/uL (4.00-5.20); White Blood Count* 9.76 K/uL (4.50-11.00)
[2024-02-02 11:45] LABS: Slide Review Reflex No
--- OUTSIDE RECORDS SUMMARY | 2024-02-02 11:45 | XMS_ITS | Continuity of Care Document ---
Author Name Unknown Organization [facility] Address [address] [place] [address] Phone Care Team Providers Care Operating System Designer Name Role Phone Kay MESSER MD, Osvaldo Unavailable Unavailable Advance Directives Directive Yes / No Effective Date File Name No Information Encounters Encounter Description Practice Location Reason(s) For Visit Diagnoses Date Provider Providers Copied on Encounter Rikki REVA, [address], [place], [place], [id number], [place] tel:[phone] No Information 0 Kay Riley. [address], [place], [address], [place]. tel:[phone] Referring Provider: Osvaldo Julien, [address] [place], [place], [facility]. tel:[phone] Family History Family Member Type Diagnosis Age At Onset No Information Payers Payer name Insurance type Covered green party ID Authoriza tijamee(s) [employer] BL [id number] Social History Type Description Quantity Date Captured [...]
--- OUTSIDE RECORDS SUMMARY | 2024-02-02 11:46 | XMS_ITS | Encounter Summary ---
Author Name Unknown Organization [facility] Address [address] [place] [address]. [place] [address] Care Team Providers Care Fur Grader Name Role Phone Dexter Sykes MD Unavailable [phone] Siva Hearn MD Unavailable [phone] Nikos Ventura Primary Care Provider Unavailabl Radha Luis RN Unavailable Unavailable Jacob Hernandez MD Unavailable [phone] Ronn Howard MD Unavailable [phone] [place] [address] Primary Care Provider Luis Mock PA-C Unavailable Joanna Pulido MD Unavailable [phone] Elissa Barnes Primary Care Provider [phone] Encounter Details Date Type Department Care Team (Late st Contact Info) Description 01/31/2020 Telephone [facility] 1st Floor, [place] [address] [place] [id number] Jacob Hernandez MD [address] [place] [address] Social History Tobacco Use Types [...] as of this encounter Plan of Treatment Upcoming Encounters Date Type Department Care Team (Late st Contact Info) Description 4 8:00 AM CDT Hospital Encounter [facility] PeriOp Services [address] [place] [address] Catarino Anderson MD [facility] [address] [place] [address] 4 8:00 AM CDT - 4 8:55 AM CDT [facility] [address] [place] [address] Catarino Anderson MD [facility] [address] [place] [address] ESOPHAGOGASTRODUODENOSCOPY Scheduled Procedures Name Priority Associated Diagnoses Date/Ti ia ESOPHAGOGASTRODUODENOSCOPY Dysphagia, unspecified type 02/15/2024 8:00 AM CDT documented as of this encounter Visit Diagnoses Not on filedocumented in this encounter Additional Health Concerns 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 Source: [facility] 10/03/2019 documented as of this encounter Care Teams Fur Grader Relationship Specialty Start Date End Date Nikos Ventura [facility] [address] [facility] [address] [place] [address] PCP - General Family Practice 11/11/16 01/21/21 [facility] [address] [place] [address] PCP - General 01/22/21 08/27/21 Elissa Barnes [address] [place] [address] PCP - General Physician Inside Barrel Lathe Operator 08/28/21 Dexter Sykes MD [facility] NEUROLOGY [facility] [address] [address] 09/15/16 Siva Hearn MD [facility] NEUROLOGY [facility] [address] [address] Neurology 09/15/16 Radha Espinoza, GEOFF Registered Nurse Neurology 12/15/16 Jacob Hernandez MD [address] [place] [address] Assigned Neuroscience Provider 07/27/20 [place] [address] [address] Assigned Musculoskeletal Provider 12/09/20 02/09/21 Luis Mock, PA-C [address] [address] Assigned Musculoskeletal Provider 02/10/21 08/08/22 Joanna Pulido MD [address] [place] [address] Assigned Cancer Care Provider 04/28/21 04/24/23 documented as of this encounter
--- OUTSIDE RECORDS SUMMARY | 2024-02-02 11:46 | XMS_ITS | Clinical Summary ---
Author Name Unknown Organization [facility] Address [address] [place] [address]. [place] [address] Care Team Providers Care Supervisor Solder Making Name Role Phone Dexter Sykes MD Unavailable [phone] Siva Hearn MD Unavailable [phone] Radha Espinoza RN Unavailable Unavailable Jacob Hernandez MD Unavailable [phone] Elissa Barnes Primary Care Provider Allergies Active Allergy Reactions Criticality Noted Date [...] 1,000 mcg as directed every 30 days Active Cholecalciferol (VITAMIN D3 PO) Take 5,000 Units by mouth every morning Active pramipexole (MIRAPEX) 0.5 MG tablet TAKE 1 TABLET BY MOUTH IN THE MORNING AND TAKE 2 TABLETS AT BEDTIME Active gabapentin (NEURONTIN) 600 MG tablet Take 1,200 mg by mouth 3 times daily Active thiamine (B-1) 100 MG tablet Take 100 mg by mouth daily Active levothyroxine (SYNTHROID/LEVOTHROI D) 50 MCG tabletIndications:Hy pothyroidism Take 50 mcg by mouth daily Active nystatin (MYCOSTATIN) creamIndications:Cut aneous Candidiasis,Mucocuta neous Candidiasis Apply 1 applicator topically daily as needed Reported on 02/18/2017 Active traZODone (DESYREL) 100 MG tablet Take 100 mg by mouth at bedtime Active furosemide (LASIX) 20 MG tablet Take 20 mg by mouth daily Active spironolactone (ALDACTONE) 50 MG tablet Take 50 mg by mouth every morning Active acyclovir (ZOVIRAX) 800 MG tablet Take 800 mg by mouth as needed Active Multiple Vitamin (MULTI-VITAMINS) TABS Take 1 tablet by mouth daily 09/22/2018 Active alendronate (FOSAMAX) 70 MG tablet Take 70 mg by mouth every 7 days Active calcitonin, salmon, (MIACALCIN) 200 UNIT/ACT nasal spray [place] 1 spray into one nostril alternating nostrils daily 10/23/2020 Active calcium carbonate-vitamin D (OSCAL W/D) 500-200 MG-UNIT tablet Take 1 tablet by mouth 2 times daily Active carboxymethylcellulo se PF (REFRESH PLUS) 0.5 % ophthalmic solution 1 drop 3 times daily as needed for dry eyes Active triamcinolone (KENALOG) 0.1 % external cream Apply topically 3 times daily As needed Active citalopram (CELEXA) 20 MG tablet Take 20 mg by mouth every morning 10/03/2022 Active metFORMIN (GLUCOPHAGE) 500 MG tablet Take 1 Tablet (500 mg) by mouth two times daily with meals 10/03/2022 Active mirabegron (MYRBETRIQ) 25 MG 24 hr tablet Take 1 Tablet (25 mg) by mouth once daily. 09/10/2022 Active clindamycin (CLEOCIN) 300 MG capsule TAKE 2 CAPSULES BY MOUTH 1 HOUR PRIOR TO DENTAL APPTOINTMENT Active cetirizine (ZYRTEC) 10 MG tablet Take 1 tablet by mouth daily 01/30/2023 Active hydrocortisone 2.5 % ointment APPLY TOPICALLY TO AFFECTED AREA(S) TWICE DAILY. 03/16/2023 Active pantoprazole (PROTONIX) 40 MG EC tablet Take 40 mg by mouth daily before breakfast Active lidocaine (LIDODERM) 5 % patch APPLY 1 PATCH TOPICALLY ONTO PAINFUL AREA OF SKIN THAT IS DRY, CLEAN,HAIRLESS FOR UP TO 12 WITHIN A 24 HOUR PERIOD *12 HOURS ON AND 12 HOURS OFF* 09/06/2023 Active oxyBUTYnin ER (DITROPAN XL) 10 MG 24 hr tablet Take 10 mg by mouth daily Active glycerin (GLYCERIN, ADULT,) 2 g suppository Insert 1 Suppository rectally once daily if needed for Constipation. 09/11/2023 Active Active Problems Patient Care Coordination No te Formatting of this note migh t be different from the original. Patient to receive IVIg infusions at [facility]: [phone] (T) [phone] (F) Problem Noted Date Diagnosed Date Trigger middle finger of right hand 12/07/2020 Overview: Added automatically from request for surgery [id number] Carpal tunnel syndrome of right wrist 12/07/2020 Overview: Added automatically from request for surgery [id number] UTI (urinary tract infection) 11/17/2017 IgM lambda [...] Next Due Flu, Unspecified 07/08/2019, 7,07/09/2016,2011,06/18/2011,08/05/2007,08/14/2006,1 ,09/06/2004,08/08/2003 [id number] Novel Flu 08/14/2009 Influenza (H1N1) 08/14/2009 Influenza [...] Comments Blood Pressure 122/85 09/14/2023 11:30 AM ALUMINUM POURER Pulse 92 09/14/2023 11:22 AM ALUMINUM POURER Temperature 36.4 ??C (97.6 ??F) 09/14/2023 11:[address] Respiratory Rate 14 09/14/2023 11:14 AM ALUMINUM POURER Oxygen Saturation 98% 09/14/2023 11:30 AM ALUMINUM POURER Inhaled Oxygen Concentration - - Weight 87.1 kg (192 lb) 09/14/2023 8:17 AM ALUMINUM POURER Height 172.7 cm (5' 8) 10/13/2023 1:08 PM ALUMINUM POURER Body Mass Index 29.19 09/14/2023 8:17 AM ALUMINUM POURER Plan of Treatment Upcoming Encounters Date Type Department Care Team (Late st Contact Info) Description 8:00 AM CDT Hospital Encounter [facility] PeriOp Services [address] [place] [phone] Catarino Anderson MD [facility] [address] [place] [address] 4 8:00 AM CDT - 4 8:55 AM CDT Surgery [facility] PeriOp Services [address] [place] [address] Catarino Anderson MD [facility] [address] [place] [address] ESOPHAGOGASTRODUODENOSCOPY Scheduled Procedures Name Priority Associated Diagnoses Date/Ti me ESOPHAGOGASTRODUODENOSCOPY Dysphagia, unspecified type 02/15/2024 8:00 AM CDT Health Maintenance Due Date Last Done Comments ADVANCE CARE PLANNING 1965 ANNUAL REVIEW OF HM ORDERS 1964 CT COLONOGRAPHY 1965 FIT 1965 FLEX SIG 1965 sDNA (Cologuard) 1965 HEPATITIS A IMMUNIZATION (1 of 2 - Risk 2-dose series) 1983 PAP 1985 HEPATITIS B IMMUNIZATION (3 of 3 - 19+ 3-dose series) 07/08/2000 05/13/2000, 08/16/1999 LIPID 2004 TSH W/FREE T4 REFLEX 01/19/2018 01/19/2017 MAMMO SCREENING 04/23/2023 04/23/2021, 03/06, 03/29/2019, Additional history exists COVID-19 Vaccine ( season) 2023 09/04/2022, 03/17/2022, 09/09/2021, Additional history exists MEDICARE ANNUAL WELLNESS VISIT 09/11/2024 09/11/2023, 09/10/2022, 09/09/2021, Additional history exists GLUCOSE 09/14/2026 09/14/2023, 10/06, 04/18/2021, Additional history exists COLONOSCOPY 07/25/2031 07/25/2021, 07/06, [...] BY METER Routine 09/14/2023 11:2 7 AM ALUMINUM POURER COLONOSCOPY Routine 07/25/2021 8:42 AM CDT HEPATITIS C ANTIBODY Routine 01/23/2017 11:52 AM CDT CIDP (chronic inflammatory demyelinating polyneuropathy) (H) TSH WITH FREE T4 REFLEX Routine 01/19/2017 3:43 PM CDT CIDP (chronic inflammatory demyelinating polyneuropathy) (H) Anemia, unspecified type Fatty liver, alcoholic Lymphadenopathy HIV ANTIGEN ANTIBODY COMBO Routine 12/17/2016 1:04 PM CDT Inflammatory neuropathy (H) ZZCL AFF HEMOGRAM/PLATELET Routine 06/03/1999 1:14 PM CDT Malig Esvin Temporal Lobe (H) Chemotherapy Session from Last 3 Months or Most Recently Relevant to Health Maintenance Results * Glucose by meter (09/14/2023 11:27 AM ALUMINUM POURER) [facility] GLUCOSE BY METER POCT 97 70 - 99 mg/dL 09/14/2023 11:34 AM ALUMINUM POURER LABORATORY POC Blood, Capillary BLOOD SPECIMEN / Unknown 09/14/2023 11:27 AM ALUMINUM POURER 09/14/2023 11:34 AM ALUMINUM POURER Catarino VALLECILLO - IDALMIS POCT LABORATORY [facility] [address] [facility] (1st floor, no room number) [place] [address], [facility] [phone] * COLONOSCOPY (07/25/2021 8:42 AM CDT) [facility] COLONOSCOPY [facility] Patient Name: Cathy Raymond ? Procedure Date: 07/25/2021 8:42 AM ? Date of : 1965 ? Admit Type: Outpatient Age: 55 ? Gender: Female Attending MD: Lyndon Arteaga MD Total Sedation Time: Minutes of continuous bedside 1:1: 31 minutes Instrument Name: 226 - Adult Colonoscope Procedure: ?Colonoscopy Indications: ?Screening for colorectal malignant neoplasm (last ?colonoscopy 2015 was incomplete, hyperplastic polyp ?x1) Providers: ?Lyndon Arteaga MD (Doctor) Referring MD: ? Medicines: ?See the other procedure note for documentation of ?the administered medications Complications: ?No immediate complications. Procedure: ?Pre-Anesthesia Assessment: [...] and ?proposed procedure were verified by the physician. ?Mental Status Examination: normal. Prophylactic ?Antibiotics: The patient does not require ?prophylactic antibiotics. Prior Anticoagulants: The ?patient has taken no previous anticoagulant or ?antiplatelet agents. ASA Grade Assessment: II - A ?patient with mild systemic disease. After reviewing ?the risks and benefits, the patient was deemed in ?satisfactory condition to undergo the procedure. ?The anesthesia plan was to use moderate sedation / ?analgesia (conscious sedation). Immediately prior ?to administration of medications, the patient was ?re-assessed for adequacy to receive sedatives. The ?heart rate, respiratory rate, oxygen saturations, ?blood pressure, adequacy of pulmonary ventilation, ?and response to care were monitored throughout the ?procedure. The physical status of the patient was ?re-assessed after the procedure. ?After obtaining informed consent, the colonoscope ?was passed under direct vision. Throughout the ?procedure, the patient's blood pressure, pulse, and ?oxygen saturations were monitored continuously. The ?Olympus Adult Colonoscope, Model # CF-XG447N, ?[place] # 226, SN # [id number] was introduced through ?the anus and advanced to the terminal ileum. The ?colonoscopy was technically difficult and complex ?due to a tortuous colon. Successful completion of ?the procedure was aided by changing the patient's ?position. The patient tolerated the procedure well. ?The quality of the bowel preparation was adequate ?to identify polyps. ? Findings: ? The colon (entire examined portion) was significantly ? tortuous/redundant . Exam completed using adult colonoscope and placing ? patient in semi-prone position. ? Diffuse, moderate melanosis was found in the entire colon. ? The terminal ileum appeared normal. ? The exam was otherwise without abnormality. ? Impression: ? - Tortuous/redundant colon. ?- Melanosis in the colon. ?- The examined portion of the ileum was normal. ?- The examination was otherwise normal. ?- No specimens collected. Recommendation: ? - Return to GI clinic as previously scheduled. ? Procedure Code(s): ? --- Professional --- ? 12096, Colonoscopy, flexible; diagnostic, including collection of ? specimen(s) by brushing or washing, when performed (separate procedure) Diagnosis Code(s): ? --- Professional --- ? Z12.11, Encounter for screening for malignant neoplasm of colon ? K63.89, Other specified diseases of intestine ? Q43.8, Other specified congenital malformations of intestine CPT copyright 2019 [employer]. All rights reserved. The codes documented in this report are preliminary and upon marketing agent review may be revised to meet current compliance requirements. Lyndon Arteaga M.D. ____ Lyndon Arteaga MD 07/25/2021 9:31:01 AM Number of Addenda: 0 Note Initiated On: 07/25/2021 8:42 AM MRN: ?[id number] Procedure Date: ? 07/25/2021 8:42:04 AM Scope Withdrawal Time: 0 hours 11 minutes 25 seconds Total Procedure Duration: 0 hours 30 minutes 56 seconds Estimated Blood Loss: ? Scope In: 8:44:04 AM Scope Out: 9:15:00 AM RADIOLOGY RESULTS 07/25/2021 8:42 AM CDT Lyndon Arteaga MD PROCEDURES RADIOLOGY RESULTS * Hepatitis C antibody (01/23/2017 11:52 AM CDT) Hepatitis C Antibody Nonreactive Assay performance characteristics have not been established for newborns, infants, and children NR [facility] 01/23/2017 11:5 2 AM CDT 01/23/2017 11:54 AM CDT Nikos Lovell MD LAB - BLOOD ORDERABL ES [facility] [address] * TSH with free T4 reflex (01/19/2017 3:43 PM CDT) TSH 1.55 0.40 - 4.00 mU/L [facility] Blood specimen (specimen) 01/19/2017 3:43 PM CDT 01/19/2017 3:45 PM CDT Joanna Pulido MD LAB - BLOOD ORDERA BLES [address] [address] * HIV Antigen Antibody Combo (12/17/2016 1:04 PM CDT) HIV Antigen Antibody Combo Nonreactive HIV-1 p24 Ag & HIV-1/HIV-2 Ab Not Detected NR [facility] Blood specimen (specimen) 12/17/2016 1:04 PM CDT 12/17/2016 1:06 PM CDT Jacob Hernandez MD LAB - BLOOD ORDERABL ES Performing Organization Address [facility] Co de Phone Number [address] [address] * (ABNORMAL) HEMOGRAM W/ PLATELET COUNT (06/03/1999 1:14 PM CDT) Pathologist [facility] WBC 2.6(A) 4.3 - 11 Thousand/CU. MM [facility] RBC Count 4.14(A) 4.2 - 5.4 Thousand/CU. MM [facility] Hemoglobin 12.5 12 - 16 G/DL [facility] Hematocrit 36.3(A) 38 - 47 Percent [facility] MCV 87.7 82 - 100 FL [facility] MCH 30.2 26 - 33 PG [facility] MCHC 34.4 31 - 36 PERCENT [facility] Platelet Count 79.0(A) 150 - 375 Thousand/CU. 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 Source: [facility]. 10/03/2019 Advance Directives For more information, please contact: [phone] * Full Code (Latest Code Status on File) Date Activated Date Inactivated Comments 02/04/2017 8:21 AM 12/06/2018 8:11 AM Care Teams Supervisor Solder Making Relationship Specialty Start Date End Date Elissa Barnes [address] [place] [address] PCP - General Physician Supervisor Water Treatment Plant 08/28/21 Dexter ySkes MD [facility] [address] [address] 09/15/16 Siva Hearn MD [facility] NEUROLOGY [facility] [address] [address] Neurology 09/15/16 Radha Espinoza, RN Registered Nurse Neurology 12/15/16 Jacob Hernandez MD [address] [place] [address] [id number] Assigned Neuroscience Provider 07/27/20
--- OUTSIDE RECORDS SUMMARY | 2024-02-02 11:46 | XMS_ITS | Encounter Summary ---
Author Name Unknown Organization [facility] Address [address] [place] [address]. [place] [address] Care Team Providers Care Ophthalmic Surgical Assistant Name Role Phone Dexter Sykes MD Unavailable [phone] Siva Hearn MD Unavailable [phone] Nikos Ventura Primary Care Provider Unavailabl Radha Luis RN Unavailable Unavailable Jacob Hernandez MD Unavailable [phone] Ronn Howard MD Unavailable [phone] [facility] Primary Care Provider Luis Mock PA-C Unavailable Joanna Pulido MD Unavailable [phone] Elissa Barnes Primary Care Provider [phone] Reason for Visit * Reason Onset Date Comments Call Back 01/04/2020 Call Back 01/04/2020 Call Back Encounter Details Date Type Department Care Team (Late st Contact Info) Description 01/04/2020 Telephone [facility] 1st Floor, [place] [address] [place] [phone] Jacob Hernandez MD [address] [place], [place] [address] Call Back; Call Back (Call Back) Social [...] with patient. She rec'd IVIG yesterday at [facility] and is scheduled again 01/24. She [...] Yesenia Ndiaye - 01/04/2020 3:13 PM CDT [facility] Center Phone Message May a detailed message be left on voicemail: no Reason for Call: Other: Pt, Cathy calling Nicolette back. Please call her at: [phone] Action Taken: Message routed to: [facility] Neurology Travel Screening: Not Applicable * Telephone Encounter - Nicolette Doshi RN - 01/04/2020 2:38 PM CDT Called patient and left [facility] requesting a call back. * Telephone Encounter [...] documented in this encounter Plan of Treatment Upcoming Encounters Date Type Department Care Team (Late st Contact Info) Description 4 8:00 AM CDT Hospital Encounter [facility] PeriOp Services [address] [place] [address] Catarino Anderson MD [facility] [address] [place] [address] 4 8:00 AM CDT - 4 8:55 AM CDT Surgery [facility] [address] [place] [address] Catarino Anderson MD [facility] [address] [place] [address] ESOPHAGOGASTRODUODENOSCOPY Scheduled Procedures Name Priority Associated Diagnoses Date/Ti tn ESOPHAGOGASTRODUODENOSCOPY Dysphagia, unspecified type 02/15/2024 8:00 AM CDT documented as of this encounter Visit Diagnoses Not on filedocumented in this encounter Additional Health Concerns 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 Source: [facility] [employer] [facility]. 10/03/2019 documented as of this encounter Care Teams Ophthalmic Surgical Assistant Relationship Specialty Start Date End Date Nikos Ventura [facility] NE[facility]OLOGY [address] [facility] [address] [place] [address] PCP - General Family Practice 11/11/16 01/21/21 [facility], [address] [address] PCP - General 01/22/21 08/27/21 Elissa Barnes [address] [place] [address] PCP - General Physician Resource Economist 08/28/21 Dexter Sykes MD [facility] [address] [facility] [address] [place] [address] 09/15/16 Siva Hearn MD [facility] [address] [facility] [address] [place] [address] Neurology 09/15/16 Radha Espinoza, GEOFF Registered Nurse Neurology 12/15/16 Jacob Hernandez MD [address] [place] [address] [id number] Assigned Neuroscience Provider 07/27/20 [place] [id number] [place] [address] Assigned Musculoskeletal Provider 12/09/20 02/09/21 Lusi Mock, PA-C [id number] [place] [address] Assigned Musculoskeletal Provider 02/10/21 08/08/22 Joanna Pulido MD [address] [place] [address] Assigned Cancer Care Provider 04/28/21 04/24/23 documented as of this encounter
--- OUTSIDE RECORDS SUMMARY | 2024-02-02 11:46 | XMS_ITS | Encounter Summary ---
Author Name Unknown Organization [place] Address [address] [place] [address]. [place] [address] Care Team Providers Care Insulation Professional Name Role Phone Dexter Sykes MD Unavailable [phone] Siva Hearn MD Unavailable [phone] Nikos Ventura Primary Care Provider Unavailabl Radha Luis RN Unavailable Unavailable Jacob Hernandez MD Unavailable [phone] Ronn Howard MD Unavailable [phone] [facility] Primary Care Provider Luis Mock PA-C Unavailable Joanna Pulido MD Unavailable [phone] Elissa Barnes Primary Care Provider [phone] Encounter Details Date Type Department Care Team (Late st Contact Info) Description 10/18/2019 Telephone [facility] 1st Floor, [place] [address] [place] [phone] Jacob Hernandez MD [address] [place] [address] Social History Tobacco Use Types [...] May a detailed message be left on [employer]? Yes, leave a detailed message. Date of last office visit: 10/18/19 Message routed to: F INFORMATION OFFICER documented in this encounter Plan of Treatment Upcoming Encounters Date Type Department Care Team (Late st Contact Info) Description 4 8:00 AM CDT Hospital Encounter [facility] PeriOp Services [address] [place] [address] Catarino Anderson MD [facility] [address] [place] [address] 4 8:00 AM CDT - 4 8:55 AM CDT Surgery [facility] Services [address] [place] [address] Catarino Anderson MD [facility] [address] [place] [address] ESOPHAGOGASTRODUODENOSCOPY Scheduled Procedures Name Priority Associated Diagnoses Date/Ti wa ESOPHAGOGASTRODUODENOSCOPY Dysphagia, unspecified type 02/15/2024 8:00 AM CDT documented as of this encounter Visit Diagnoses Not on filedocumented in this encounter Additional Health Concerns 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 Source: [employer] [facility]. 10/03/2019 documented as of this encounter Care Teams Insulation Professional Relationship Specialty Start Date End Date Nikos Ventura [facility] [address] [address] PCP - General Family Practice 11/11/16 01/21/21 [facility] [address] [place] [address] PCP - General 01/22/21 08/27/21 Elissa Barnes [address] [place] [address] PCP - General Physician Ophthalmology Assistant 08/28/21 Dexter Sykes MD [facility]UR[facility] [address] [address] 09/15/16 Siva Hearn MD [facility] [address] [address] Neurology 09/15/16 Radha Espinoza, GEOFF Registered Nurse Neurology 12/15/16 Jacob Hernandez MD [address] [place] [address] Assigned Neuroscience Provider 07/27/20 Ronn Howard MD [address] [place] [address] Assigned Musculoskeletal Provider 12/09/20 02/09/21 Luis Mock, PAMagnoliaC [id number] [place] [address] Assigned Musculoskeletal Provider 02/10/21 08/08/22 Joanna Pulido MD [address] [place] [address] Assigned Cancer Care Provider 04/28/21 04/24/23 documented as of this encounter
--- OUTSIDE RECORDS SUMMARY | 2024-02-02 11:46 | XMS_ITS | Encounter Summary ---
Author Name Unknown Organization [place] Address [address] [place] [address]. [place] [address] Care Team Providers Care Raw Juice Weigher Name Role Phone Dexter Sykes MD Unavailable Siva Hearn MD Unavailable [phone] Nikos Ventura Primary Care Provider Unavailabl Radha Luis RN Unavailable Unavailable Jacob Hernandez MD Unavailable [phone] Ronn Howard MD Unavailable [phone] [facility] Primary Care Provider Luis Mock PA-C Unavailable Joanna Pulido MD Unavailable [phone] Elissa Barnes Primary Care Provider Encounter Details Date Type Department Care Team (Late st Contact Info) Description 09/20/2020 Telephone [facility] [address] [facility] [address] [place] [address] Jacob Hernandez MD [address] [place] [address] Social History Tobacco Use Types [...] COVID-19? Unable to assess 09/04/2020 1:06 PM SEAM STAYER documented as of this encounter Miscellaneous Notes * Telephone Encounter - Giselle Britt RN - 09/20/2020 2:[address] Hernandez updated new CT order which will be fax[facility] to [facility] (fax [phone]). Giselle Britt RN STAYER * Telephone Encounter - Shannon Mtz - 09/20/2020 10:47 AM CST Nat calling to state that CT order needs to be updated. Per Nat, the order was made as with and without contrast, but facility needs the order to be with contrast. Please fax new order [phone]. STAYER documented in this encounter Plan of Treatment Upcoming Encounters Date Type Department Care Team (Late st Contact Info) Description 4 8:00 AM CDT Hospital Encounter [facility] PeriOp Services [address] [facility] [place] [address] Catarino Anderson MD [facility] [address] [place] [address] 4 8:00 AM CDT - 4 8:55 AM CDT Surgery [facility] PeriOp Services [address] [address] Catarino Anderson MD [facility] [address] [place] [address] ESOPHAGOGASTRODUODENOSCOPY Scheduled Procedures Name Priority Associated Diagnoses Date/Ti co ESOPHAGOGASTRODUODENOSCOPY Dysphagia, unspecified type 02/15/2024 8:00 AM CDT documented as of this encounter Visit Diagnoses Not on filedocumented in this encounter Additional Health Concerns 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 Source: [facility]. 10/03/2019 Assessment Noted Time PHQ-9 Depression Total Score: 8 09/04/20 20 1:10 PM SEAM STAYER documented as of this encounter Care Teams Raw Juice Weigher Relationship Specialty Start Date End Date Nikos Ventura [facility] [address] [place] [address] PCP - General Family Practice 11/11/16 01/21/21 [facility] [address] [place] [address] PCP - General 01/22/21 08/27/21 Elissa Barnes [address] [place] [address] PCP - General Physician Hotel Superintendent 08/28/21 Dexter Sykes MD [address] [address] 09/15/16 Siva Hearn MD [facility] NEUR[facility] [address] [place] [address] Neurology 09/15/16 Radha Espinoza, RN Registered Nurse Neurology 12/15/16 Jacob Hernandez MD [address] [place] [address] Assigned Neuroscience Provider 07/27/20 [place] [address] [address] Assigned Musculoskeletal Provider 12/09/20 02/09/21 Luis Mock, NEHA [address] [address] Assigned Musculoskeletal Provider 02/10/21 08/08/22 Joanna Pulido MD [address]09 [place], [place] [address] Assigned Cancer Care Provider 04/28/21 04/24/23 documented as of this encounter
--- OUTSIDE RECORDS SUMMARY | 2024-02-02 11:46 | XMS_ITS | Encounter Summary ---
Author Name Unknown Organization [place] Address [address] [place] [address]. [place] [address] Care Team Providers Care Supervisor Fabrication Department Name Role Phone Dexter Sykes MD Unavailable [phone] Siva Hearn MD Unavailable [phone] Nikos Ventura Primary Care Provider Unavailabl Radha Luis RN Unavailable Unavailable Jacob Hernandez MD Unavailable [phone] Ronn Howard MD Unavailable [phone] [facility] Primary Care Provider Luis Mock PA-C Unavailable [phone] Joanna Pulido MD Unavailable [phone] Elissa Barnes Primary Care Provider Reason for Visit * Reason Onset Date Comments Refill Request 02/16/2019 tenofovir (VIREA D) 300 MG tablet Encounter Details Date Type Department Care Team (Late st Contact Info) Description 02/16/2019 Telephone [facility] Neurology [address] [facility] 3rd [place] [address] Jacob Hernandez MD [address] [place] [address] Refill Request (tenofovir (VIREAD) 300 [...] encounter Miscellaneous Notes * Telephone Encounter - Lny Rivera - 02/17/2019 3:13 PM CDT [facility] Call Center Phone Message May a detailed message be left on voicemail: yes Reason for Call: Other: pt called to let clinic know that they got the RX issue figured outand do not need the refill anymore. Action Taken: Message routed to: [facility] ([facility]): neuro * Telephone Encounter - Nicolette Doshi [...] Curiel - 02/16/2019 11:59 AM CDT [facility] Call Center Phone Message May a detailed message be left on voicemail: yes Reason for Call: Medication Refill Request Has the patient contacted the pharmacy for the refill? Yes Name of medication being requested: tenofovir (VIREAD) 300 MG tablet Provider who prescribed the medication: Pharmacy: [facility] [id number] [place] [address] [address] [facility] [address] Date medication is needed: as soon as possible pt is out and will be leaving town soon. Action Taken: Message routed to: [facility] ([facility]): neurology documented in this encounter Plan of Treatment Upcoming Encounters Date Type Department Care Team (Late st Contact Info) Description 4 8:00 AM CDT [facility] [address] [place] [address] Catarino Anderson MD [facility] [address] [place] [address] 4 8:00 AM CDT - 4 8:55 AM CDT Surgery [facility] Services [address] [place] [address] Catarino Anderson MD [facility] [address] [place] [address] ESOPHAGOGASTRODUODENOSCOPY Scheduled Procedures Name Priority Associated Diagnoses Date/Ti al ESOPHAGOGASTRODUODENOSCOPY Dysphagia, unspecified type 02/15/2024 8:00 AM CDT documented as of this encounter Visit Diagnoses Not on filedocumented in this encounter Additional Health Concerns 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 Source: [facility]. 10/03/2019 documented as of this encounter Care Teams Supervisor Fabrication Department Relationship Specialty Start Date End Date Nikos Ventura [facility] [address] [facility] [address] [place] [address] PCP - General Family Practice 11/11/16 01/21/21 [facility] [address] [place] [address] PCP - General 01/22/21 08/27/21 Elissa Barnes 1400 [place] [address] PCP - General Physician Electromechanical Technologist 08/28/21 Dexter Sykes MD [facility] NEUR[facility] [address] [address] 09/15/16 Siva Hearn MD [facility] NEUR[facility] [address] [address] Neurology 09/15/16 Radha Espinoza, RN Registered Nurse Neurology 12/15/16 Jacob Hernandez MD [address] [place] [address] Assigned Neuroscience Provider 07/27/20 [place] [id number] [place] [address] Assigned Musculoskeletal Provider 12/09/20 02/09/21 Luis Mock, PA-C [id number] [place] [address] Assigned Musculoskeletal Provider 02/10/21 08/08/22 Joanna Pulido MD [address] [place] [address] Assigned Cancer Care Provider 04/28/21 04/24/23 documented as of this encounter
--- OUTSIDE RECORDS SUMMARY | 2024-02-02 11:46 | XMS_ITS | Referral Summary ---
Author Name Unknown Organization [place] Address [address] [place] [address]. [place] [address] Care Team Providers Care Cost Manager Name Role Phone Dexter Sykes MD Unavailable [phone] Siva Hearn MD Unavailable [phone] Radha Espinoza RN Unavailable Unavailable Jacob Hernandez MD Unavailable [phone] Elissa Barnes Primary Care Provider [phone] Allergies Active Allergy Reactions Criticality Noted Date [...] calcitonin, salmon, (MIACALCIN) 200 UNIT/ACT nasal spray [place] 1 spray into one nostril alternating nostrils [...] original. Patient to receive IVIg infusions at [facility]: [phone] (T) [phone] (F) Problem Noted Date Diagnosed Date Trigger middle finger of right hand 12/07/2020 Overview: Added automatically from request for surgery [id number] Carpal tunnel syndrome of right wrist 12/07/2020 Overview: Added automatically from request for surgery [id number] UTI (urinary tract infection) 11/17/2017 IgM lambda [...] Next Due Flu, Unspecified 07/08/2019, 7,07/09/2016,2011,06/18/2011,08/05/2007,08/14/2006,1 ,09/06/2004,08/08/2003 Z1u0-18 Novel Flu 08/14/2009 Influenza (H1N1) 08/14/2009 Influenza [...] Comments Blood Pressure 122/85 09/14/2023 11:30 AM HOMOGENIZER OPERATOR Pulse 92 09/14/2023 11:22 AM HOMOGENIZER OPERATOR Temperature 36.4 ??C (97.6 ??F) 09/14/2023 11:[address] Respiratory Rate 14 09/14/2023 11:14 AM HOMOGENIZER OPERATOR Oxygen Saturation 98% 09/14/2023 11:30 AM HOMOGENIZER OPERATOR Inhaled Oxygen Concentration - - Weight 87.1 kg (192 lb) 09/14/2023 8:17 AM HOMOGENIZER OPERATOR Height 172.7 cm (5' 8) 10/13/2023 1:08 PM HOMOGENIZER OPERATOR Body Mass Index 29.19 09/14/2023 8:17 AM HOMOGENIZER OPERATOR Plan of Treatment Upcoming Encounters Date Type Department Care Team (Late st Contact Info) Description 4 8:00 AM CDT Hospital Encounter [facility] PeriOp Services [address] [place] [address] Catarino Anderson MD [facility] [address] [place] [address] 4 8:00 AM CDT - 4 8:55 AM CDT Surgery [facility] PeriOp Services [address] [place] [address] Catarino Anderson MD [facility] [address] [place] [address] ESOPHAGOGASTRODUODENOSCOPY Scheduled Procedures Name Priority Associated Diagnoses Date/Ti me ESOPHAGOGASTRODUODENOSCOPY Dysphagia, unspecified type 02/15/2024 8:00 AM CDT Procedures Procedure Name Priority Date/Time Associated Diagnosis Comments GLUCOSE BY METER Routine 09/14/2023 11:2 7 AM HOMOGENIZER OPERATOR COLONOSCOPY Routine 07/25/2021 8:42 AM CDT HEPATITIS [...] * Glucose by meter (09/14/2023 11:27 AM HOMOGENIZER OPERATOR) [facility] GLUCOSE BY METER POCT 97 70 - 99 mg/dL 09/14/2023 11:34 AM HOMOGENIZER OPERATOR LABORATORY POC Blood, Capillary BLOOD SPECIMEN / Unknown 09/14/2023 11:27 AM HOMOGENIZER OPERATOR 09/14/2023 11:34 AM HOMOGENIZER OPERATOR Catarino [facility] POCT LABORATORY [facility] Acute Care Lab [address] [facility] Lab (1st floor, no room number) [place] [address], [facility] [phone] * COLONOSCOPY (07/25/2021 8:42 AM CDT) [facility] COLONOSCOPY [facility] Patient Name: Cathy JuarezZita [place] ? Procedure Date: 07/25/2021 8:42 AM [...] continuously. The ?Olympus Adult Colonoscope, Model # CF-CN130V, ?Endora # 226, SN # [id number] was introduced through ?the anus and advanced [...] Procedure Code(s): ? --- Professional --- ? 85291, Colonoscopy, flexible; diagnostic, including collection of ? specimen(s) by brushing or washing, when performed (separate procedure) Diagnosis Code(s): ? --- Professional --- ? Z12.11, Encounter for screening for malignant neoplasm of colon ? K63.89, Other specified diseases of intestine ? Q43.8, Other specified congenital malformations of intestine CPT copyright 2019 [employer]. All rights reserved. The codes documented in this report are preliminary and upon route sales associate review may be revised to meet current compliance requirements. Lyndon Arteaga M.D. ____ Lyndon Arteaga MD 07/25/2021 9:31:01 AM Number of Addenda: 0 Note Initiated On: 07/25/2021 8:42 AM MRN: ?[id number] Procedure Date: ? 07/25/2021 8:42:04 AM Scope Withdrawal Time: 0 hours 11 minutes 25 seconds Total Procedure Duration: 0 hours 30 minutes 56 seconds Estimated Blood Loss: ? Scope In: 8:44:04 AM Scope Out: 9:15:00 AM RADIOLOGY RESULTS 07/25/2021 8:42 AM CDT Lyndon Arteaga MD PROCEDURES Performing Organization Address [facility] Co de Phone Number RADIOLOGY RESULTS * Hepatitis C antibody (01/23/2017 11:52 AM CDT) [facility] Hepatitis C Antibody Nonreactive Assay performance characteristics have not been established for newborns, infants, and children NR [facility] 01/23/2017 11:5 2 AM CDT 01/23/2017 11:54 AM CDT Nikos Lovell MD LAB - BLOOD ORDERABL ES Performing Organization Address [facility] Co de Phone Number [facility] [address] * TSH with free T4 reflex (01/19/2017 3:43 PM CDT) [facility] TSH 1.55 0.40 - 4.00 mU/L [facility] Blood specimen (specimen) 01/19/2017 3:43 PM CDT 01/19/2017 3:45 PM CDT Joanna Pulido MD LAB - BLOOD ORDERA BLES Performing Organization Address [facility] Co de Phone Number [facility] [address] [place] [address] * HIV Antigen Antibody Combo (12/17/2016 1:04 PM CDT) Pathologist [facility] HIV Antigen Antibody Combo Nonreactive HIV-1 p24 Ag & HIV-1/HIV-2 Ab Not Detected NR [facility] Blood specimen (specimen) 12/17/2016 1:04 PM CDT 12/17/2016 1:06 PM CDT Jacob Hernandez MD LAB - BLOOD ORDERABL ES [address] [address] * (ABNORMAL) HEMOGRAM W/ PLATELET COUNT (06/03/1999 1:14 PM CDT) WBC 2.6(A) 4.3 - 11 Thousand/CU. 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 Source: [employer] [facility]. 10/03/2019 Advance Directives For more information, please contact: [phone] * Full Code (Latest Code Status on File) Date Activated Date Inactivated Comments 02/04/2017 8:21 AM 12/06/2018 8:11 AM Care Teams Cost Manager Relationship Specialty Start Date End Date Nikhil Barnesrosana Denise [address] [place] [address] PCP - General Physician Inhalation Therapy Aide 08/28/21 Dexter Sykes MD [facility] NEUROLOGY Formerly named [facility] [address] [address] 09/15/16 Siva Hearn MD [place] [address] [address] Neurology 09/15/16 Radha Espinoza, RN Registered Nurse Neurology 12/15/16 Jacob Hernandez MD [address] [place], [place] [address] Assigned Neuroscience Provider 07/27/20
--- OUTSIDE RECORDS SUMMARY | 2024-02-02 11:46 | XMS_ITS | Encounter Summary ---
Author Name Unknown Organization [place] Address [facility] [place] [address] Care Team Providers Care Home Health Rn Name Role Phone Dexter Sykes MD Unavailable [phone] Siva Hearn MD Unavailable [phone] Radha Espinoza RN Unavailable Unavailable Jacob Hernandez MD Unavailable [phone] Joanna Pulido MD Unavailable [phone] Elissa [place] Primary Care Provider [phone] Reason for Visit * Reason Onset Date Comments Orders 04/22/2023 labs Encounter Details Date Type Department Care Team (Late st Contact Info) Description 04/22/2023 Telephone [facility] 1st Floor, [facility] [address] [phone] Jacob Hernandez MD [address] [place] [address] Orders (labs) Social History Tobacco Use Types [...] 1:55 PM CDT Spoke with Maryse at [facility]. Orders faxed accordingly (fax [phone]). Giselle Britt, RN * Telephone Encounter - Brittany Abad - 04/22/2023 1:30 PM CDT [facility] Phone Message May a detailed message be left on voicemail: yes Reason for Call: Other: Maryse from [facility] is calling asking about the lab orders. Maryse is needing a signature ,diagnosis code, and orders for labs faxed over Pt is currently at the lab, Please call [facility] to discuss Fax- [phone] Action Taken: Message routed to: [facility] Neurology Travel Screening: Not Applicable documented in this encounter Plan of Treatment Upcoming Encounters Date Type Department Care Team (Late st Contact Info) Description 4 8:00 AM CDT Hospital Encounter [facility] PeriOp Services [address] [place] [address] Catarino Anderson MD [facility] [address] [place] [address] 4 8:00 AM CDT - 4 8:55 AM CDT Surgery [facility] PeriOp Services [address] [place] [address] Catarino Anderson MD [facility] [address] [place] [address] ESOPHAGOGASTRODUODENOSCOPY Scheduled Procedures Name Priority Associated Diagnoses Date/Ti me ESOPHAGOGASTRODUODENOSCOPY Dysphagia, unspecified type 02/15/2024 8:00 AM CDT documented as of this encounter Visit Diagnoses Not on filedocumented in this encounter Additional Health Concerns 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 Source: [employer] [facility]. 10/03/2019 Assessment Noted Time PHQ-9 Depression Total Score: 8 09/04/20 20 1:10 PM READY TO WEAR DEPARTMENT MANAGER documented as of this encounter Care Teams Home Health Rn Relationship Specialty Start Date End Date Elissa Barnes [address] [place] [address] PCP - General Physician Loan Officer 08/28/21 Dexter Sykes MD [facility]UR[facility] [address] [address] 09/15/16 Siva Hearn MD [facility] [address] [address] Neurology 09/15/16 Radha Espinoza, RN Registered Nurse Neurology 12/15/16 Jacob Hernandez MD [address] [place] [address] Assigned Neuroscience Provider 07/27/20 Joanna Pulido MD [address] [place], [place] [address] Assigned Cancer Care Provider 04/28/21 04/24/23 documented as of this encounter
--- OUTSIDE RECORDS SUMMARY | 2024-02-02 11:46 | XMS_ITS | Clinical Summary ---
Author Name Unknown Organization [facility] Address [place], [place] [address] Care Team Providers Care Emanations Analysis Technician Name Role Phone Jacob Hernandez MD Unavailable [phone] Tiarra Campos MD Unavailable [phone] Verónica Barnes Primary Care Provider Nino Cadet MD Unavailable [phone] [facility] Mira Vázquez PharmD Unavailable [phone] Allergies Active Allergy Reactions Criticality Noted Date [...] Dispensed Refills Start Date End Date Status DEEP SEA NASAL SPRAY 0.65 % nasal solution Inhale 2 Sprays in the nostril(s) once daily if needed for Nasal Dryness. 09/17/20 17 Active cholecalciferol (VITAMIN D3) 5,000 unit capsule Take 5,000 Units by mouth once daily. Active multivitamin (MVI) tablet Take 1 tablet by mouth. 09/22/20 18 Active SENNA PLUS 8.6-50 mg tabletIndication s:constipation Take 2 Tablets by mouth once daily. takes 2 tabs every morning Indications: constipation 12/29/19 19 Active Methyl Salicylate-Menth ol (ICY HOT) 30-10 % topical creamIndications :Pathological fracture in other disease, left femur, subsequent encounter for fracture with routine healing Apply topically to affected area(s). 0 01/22/20 19 Active calcium carbonate-vitami n D3, 500 mg-400 units, (OSCAL 500 + D) tablet Take 1 tablet by mouth 2 times daily before meals. 0 02/12/20 19 Active calcitonin salmon, 200 units per actuation, nasal (MIACALCIN, FORTICAL) 200 unit/actuation nasal sprayIndications :Compression fracture of L1 vertebra with routine healing, subsequent encounter Inhale 1 Lamont in the nostril(s) once daily. Alternating nostrils daily. 1 Bottle 10/23/19 21 Active alendronate (FOSAMAX) 70 mg tabletIndication s:Osteoporosis, unspecified osteoporosis type, unspecified pathological fracture presence,Charlie oziel fracture of L1 vertebra with routine healing, subsequent encounter TAKE 1 TABLET BY MOUTH ONCE A WEEK IN THE MORNING ON AN EMPTY STOMACH WITH A FULL GLASS OF WATER DO NOT LIE DOWN FOR 1 HOUR 12 Tablet 3 09/11/20 23 Active gabapentin (NEURONTIN) 600 mg tabletIndication s:Idiopathic peripheral neuropathy Take 2 Tablets (1,200 mg) by mouth three times daily. SEPARATE FROM ANTACIDS 540 Tablet 3 09/11/20 23 Active pantoprazole (PROTONIX) 40 mg delayed-release tabletIndication s:Chronic GERD Take 1 Tablet (40 mg) by mouth once daily before a meal. 90 Tablet 3 09/11/20 23 Active thiamine (Vitamin B-1) 100 mg tabletIndication s:Thiamine deficiency Take 1 Tablet (100 mg) by mouth once daily. 90 Tablet 3 09/11/20 23 Active triamcinolone (ARISTOCORT; KENALOG) 0.1 % creamIndications :Rash APPLY TOPICALLY TO AFFECTED AREAS THREE TIMES A DAY 240 g 10 09/06/20 23 Active Insulin Syringe-Needle U-100 1 mL 25 x 1 syrgIndications: B12 deficiency As directed. [facility]: [id number] 100 Each 09/11/20 23 Active citalopram (CELEXA) 20 mg tabletIndication s:Depression, major, in remission (HC) Take 1 Tablet (20 mg) by mouth every morning. 90 Tablet 3 09/11/20 23 Active levothyroxine (SYNTHROID) 50 mcg tabletIndication s:Essential hypertension,Hyp othyroidism (acquired) Take 1 Tablet (50 mcg) by mouth before breakfast. 90 Tablet 3 09/11/20 23 Active oxybutynin XL (DITROPAN XL) 10 mg CR tabletIndication s:Urinary urgency Take 1 Tablet (10 mg) by mouth once daily. 90 Tablet 3 09/11/20 23 Active pramipexole (MIRAPEX) 0.5 mg tabletIndication s:Restless legs TAKE 1 TABLET BY MOUTH IN THE MORNING DAILY ~108Q2 AND TAKE 2 TABLETS AT BEDTIME 270 Tablet 3 09/11/20 23 Active traZODone (DESYREL) 100 mg tabletIndication s:Insomnia, idiopathic TAKE 1 TABLET BY MOUTH ONCE DAILY AT BEDTIME 90 Tablet 3 09/11/20 23 Active nystatin powder (MYCOSTATIN) powderIndication s:Skin infection Apply 1 Strip topically to affected area(s) three times daily. 60 g 2 09/23/20 23 Active neomycin-polymyx in-hydrocortison e (CORTISPORIN OTIC) otic suspensionIndica tions:Acute infective otitis externa, right Place 3 Drops into right ear three times daily. 10 mL 10/27/19 24 Active diazePAM (VALIUM) 5 mg tablet Take 5 mg by mouth. 30 MINUTES PRIOR TO MRI AND AT TIME OF MRI NEEDED. 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 TAKE WITH EACH COLD SORE OUTBREAK. 15 Tablet 5 12/15/19 24 Active polyethylene glycoL (Miralax) 17 gram/scoop powderIndication s:Chronic constipation Mix 1 scoop (17 g) in liquid then take by mouth once daily. 510 g 5 12/16/19 24 024 Active potassium chloride (K-TAB) 20 mEq extended-release tabletIndication s:hypokalemia Take 20 mEq by mouth two times daily with meals. 12/13/19 24 Active hydrOXYzine HCL (ATARAX) 10 mg tabletIndication s:Other ascites,Urticari a Take 1 Tablet (10 mg) by mouth every 8 hours if needed for Itching. 30 Tablet 12/21/19 24 Active furosemide (LASIX) 20 mg tabletIndication s:Alcoholic cirrhosis of liver without ascites (HC) TAKE 2 TABLETS BY MOUTH IN THE MORNING AND 1 TABLET MID DAY *DOSE INCREASE* 90 Tablet 10 12/25/19 24 Active bisacodyL (DULCOLAX) 10 mg suppositoryIndic ations:Chronic constipation Insert 1 Suppository (10 mg) rectally once daily. 30 Suppository 12/30/19 24 Active acetaminophen (TYLENOL EXTRA STRGTH) 500 mg tablet Take 1 Tablet (500 mg) by mouth every 6 hours. Max acetaminophen dose: 4000mg in 24 hrs. 01/04/20 24 Active nystatin (MYCOSTATIN) 100,000 unit/gram topical creamIndications :Intertrigo APPLY TOPICALLY TO AFFECTED AREAS TWICE DAILY NEEDED 30 g 10 01/05/20 24 Active spironolactone (ALDACTONE) 50 mg tabletIndication s:Hepatic cirrhosis, unspecified hepatic cirrhosis type, unspecified whether ascites present (HC) Take 1 Tablet (50 mg) by mouth every morning. 90 Tablet 3 01/06/20 24 Active cetirizine (ZYRTEC) 10 mg tabletIndication s:Seasonal allergic rhinitis due to pollen Take 1 Tablet (10 mg) by mouth once daily. 90 Tablet 3 01/06/20 24 Active sennosides (SENNA) 8.6 mg tabletIndication s:Megacolon Take 1-2 Tablets (8.6-17.2 mg) by mouth two times daily. 180 Tablet 3 01/06/20 24 Active potassium chloride (K-DINA) 20 mEq packetIndication s:Hypokalemia Mix 2 Packets (40 mEq) in liquid then take by mouth two times daily with meals. 125 Packet 3 01/06/20 24 Active oxyCODONE-acetam inophen (Percocet) 5-325 mg per tabletIndication s:CIDP (chronic inflammatory demyelinating polyneuropathy) (HC),Leg pain, bilateral Take 1 Tablet by mouth 3 times daily if needed for Pain. Max acetaminophen dose: 4000mg in 24 hrs. 21 Tablet 02/01/20 24 Active carboxymethylcel lulose 0.5% 0.5 % drop ophthalmic dropsIndications :Dry eye INSTILL 1-2 DROPS INTO BOTH EYES EVERY 2 HOURS IF NEEDED FOR DRY EYES. 15 mL 02/02/20 24 Active hydrocortisone (HYTONE) 2.5 % ointmentIndicati ons:Angular cheilitis APPLY TOPICALLY TO AFFECTED AREA(S) TWICE DAILY 28.35 g 3 02/02/20 24 Active cyanocobalamin (VITAMIN B12) 1,000 mcg/mL injectionIndicat ions:B12 deficiency INJECT 1ML INTRAMUSCULARLY EVERY 4 WEEKS 3 mL 02/02/20 24 Active cetirizine (ZYRTEC) 10 mg tabletIndication s:Seasonal allergic rhinitis due to pollen Take 1 Tablet (10 mg) by mouth once daily. 90 Tablet 01/31/20 23 024 Discontinued(R eorder (E-cancel not sent)) nystatin (MYCOSTATIN) creamIndications :Intertrigo APPLY TOPICALLY TO AFFECTED AREAS TWICE DAILY NEEDED 30 g 10 03/16/20 23 024 Discontinued hydrocortisone (HYTONE) 2.5 % ointmentIndicati ons:Angular cheilitis APPLY TOPICALLY TO AFFECTED AREA(S) TWICE DAILY. 28.35 g 10 03/16/20 23 024 Discontinued Lubricant Eye Drops 0.5 % drop ophthalmic dropsIndications :Dry eye Place 1-2 Drops into both eyes every 2 hours if needed for Dry Eyes. 30 mL 5 04/27/20 23 024 Discontinued cyanocobalamin (VITAMIN B12) 1,000 mcg/mL injectionIndicat ions:B12 deficiency INJECT 1ML INTRAMUSCULARLY EVERY 4 WEEKS 3 mL 2 05/15/20 23 024 Discontinued spironolactone (ALDACTONE) 50 mg tabletIndication s:Hepatic cirrhosis, unspecified hepatic cirrhosis type, unspecified whether ascites present (HC) Take 1 Tablet (50 mg) by mouth every morning. 90 Tablet 3 09/11/20 23 024 Discontinued(R eorder (E-cancel not sent)) magnesium oxide (MAG-OX 400) 400 mg tabletIndication s:Alcoholic cirrhosis of liver with ascites (HC) Take 1 Tablet (400 mg) by mouth once daily for 18 days. 18 Tablet 12/16/19 24 024 potassium chloride (K-DINA) 20 mEq packetIndication s:Hypokalemia Mix 1 Packet (20 mEq) in liquid then take by mouth three times daily with meals. 100 Packet 12/31/19 24 024 Discontinued(R eorder (E-cancel not sent)) predniSONE (DELTASONE) 10 mg tabletIndication s:Dermatitis Take 3 Tablets (30 mg) by mouth once daily with a meal for 2 days, THEN 2 Tablets (20 mg) once daily with a meal for 2 days, THEN 1 Tablet (10 mg) once daily with a meal for 2 days. 12 Tablet 01/06/20 24 024 mupirocin (BACTROBAN OINTMENT) ointmentIndicati ons:Skin ulcer of sacrum, unspecified ulcer stage (HC) Apply topically to affected area(s) three times daily for 5 days. 22 g 01/06/20 24 024 Active Problems Problem Noted Date Diagnosed Date Ascending aorta dilatation 12/02/2023 Overview: 3.9 cm on echocardiogram Nov 2023. Repeat one year? History of amputation of lesser toe of left foot 11/06/2023 Depression, major, in remission 12/30/2022 Type 2 [...] Encounters Date Type Department Care Team Description 02/02/2024 Home Care Visit [facility] [address] [facility] [address] Dasha Hu COTA OT - MISSED VISIT 02/02/2024 Home Care Visit [facility] [address] [facility] [address] Dasha Hu NAIR CARE COORDINATION 02/01/2024 2:00 PM CDT Home Care Visit [facility] [address] [place] [address] Nikos Perez, PT PT - MISSED VISIT 02/01/2024 7:30 AM CDT Preop Visit [facility] [address] [place] [address] Verónica Barnes PA Preoperative Exam (endoscopy) 02/01/2024 Refill [facility] [address] [place] [address] Verónica Barnes PA Refill Request (Carboxymethylcellu lose 0.5%, Hydrocortisone, Cyanocobalamin) 02/01/2024 Travel 01/28/2024 10:30 AM CDT Home Care Visit [facility] [address] [place] [address] Miah Sal, RN SN - HOME VISIT 01/28/2024 Home Care Visit [facility] [address] [place] [address] Cori Oneal, OT OT - REASSESSMENT 01/27/2024 8:45 AM CDT Home Care Visit [facility] [address] [place] [address] Nikos Perez, PT PT - HOME VISIT 01/27/2024 Telephone [facility] [address] [place] [address] Verónica Barnes PA Lab (Clarity on orders) 01/27/2024 Travel 01/22/2024 Home Care Visit [facility] [address] [place] [address] Cori Oneal, OT CARE COORDINATION 01/21/2024 11:30 AM CDT Home Care Visit [facility] [address] [place] [address] Soco Carmona LPN TECHNOLOGIST INFECTIOUS DISEASE - HOME VISIT 01/20/2024 12:00 PM CDT Home Care Visit [facility] [address] [facility] [place] [address] Cori Oneal, OT OT - MISSED VISIT 01/20/2024 9:15 AM CDT Home Care Visit [facility] [address] [facility] [place] [address] Nikos Perez, PT PT - HOME VISIT 01/20/2024 Home Care Visit [facility] [address] [facility] [place] [address] Cori Oneal, OT CARE COORDINATION 01/20/2024 Travel 01/18/2024 Home Care Visit [facility] [address] [facility] [place] [address] Cori Oneal, OT OT - MISSED VISIT 01/15/2024 10:00 AM CDT Home Care Visit [facility] [address] [facility] [place] [address] Miah Sal, RN SN - HOME VISIT 01/15/2024 8:45 AM CDT Home Care Visit [facility] [address] [facility] [place] [address] Nikos Perez, PT PT - HOME VISIT 01/15/2024 Home Care Visit [facility] [address] [facility] [place] [address] Cori Oneal, OT OT - MISSED VISIT 01/12/2024 9:00 AM CDT Home Care Visit [facility] [address] [facility] [place] [address] Nikos Perez, PT PT - HOME VISIT 01/12/2024 Travel 01/11/2024 11:00 AM CDT Home Care Visit [facility] [address] [facility] [place] [address] Cori Oneal, OT OT - HOME VISIT 01/11/[address] [place] [address] Verónica Barnes PA Prior Authorization (lidocaine 5 % topical patch Denied) 01/08/2024 12:00 PM CDT Home Care Visit [facility] [address] [place] [address] Miah Sal RN SN - HOME VISIT 01/08/2024 11:00 AM CDT Pharmacist Medication Management [facility] [address] [place] [address] Mira Vázquez PharmD Pharmacist Medication Management (CMR follow-up - provider referral - polypharmacy) 01/08/2024 Travel 01/06/2024 2:00 PM CDT Ancillary Procedure [facility] [address] [place] [address] 01/06/2024 1:45 PM CDT Ancillary Procedure [facility] [address] [place] [address] 01/06/2024 1:00 PM CDT Office Visit [facility] [address] [place] [address] Verónica Barnes PA Follow Up (Fell twice again, on and Thursday. Still having pain in R arm. / still has rash.) 01/06/2024 Telephone [facility] [place] [address] [address] Siva Jamil MD Referral (Neurology) 01/06/2024 Travel 01/05/2024 12:30 PM CDT Home Care Visit [facility] [address] [place] [address] Soco Carmona LPN TECHNOLOGIST INFECTIOUS DISEASE - HOME VISIT 01/05/2024 Refill [facility] [address] [place] [address] Verónica Barnes PA Refill Request (Nystatin) 01/04/2024 1:00 PM CDT Home Care Visit [facility] [address] [facility] [place] [address] Ileana Tariq OT OT - INITIAL ASSESSMENT 01/04/2024 9:00 AM CDT Home Care Visit [facility] [address] [place] [address] Nikos Perez, PT PT - INITIAL ASSESSMENT 01/04/2024 Telephone [facility] [address] [place] [address] Nikos Perez, PT Home Care 01/04/2024 Travel 01/04/2024 Telephone [facility] [address] [place] [address] Verónica Barnes PA Follow Up 01/02/2024 4:00 AM CDT Home Care Visit [facility] [address] [place] [phone] Mindy Tracy RN SN - MISSED VISIT 12/31/2023 Telephone [facility] [address] [place] [address] Esmer El MD Results 12/30/2023 11:30 AM CDT Ancillary Procedure [facility] [address] [place] [address] 12/30/2023 9:50 AM CDT Office Visit [facility] [address] [place] [address] Verónica Barnes PA Follow Up (Recheck rash, swelling and legs); Fall (Fell asleep in wheelchair last night and fell out of chair, has pain in R upper arm, R armpit / rib area, R hip area. ) 12/30/2023 Travel 12/29/2023 10:00 AM CDT Home Care Visit [facility] [address] [place] [address] Susan Bolaños, GEOFF CARE COORDINATION 12/29/2023 9:00 AM CDT Home Care Visit [facility] [address] [place] [address] Miah Sal, GEOFF SN - HOME VISIT 12/28/2023 1:30 AM CDT Home Care Visit [facility] [address] [place] [address] Susan Bolaños, RN SN - WOUND/OSTOMY CHART CONSULT 12/28/2023 Telephone [facility] [address] [place] [address] Verónica Barnes PA Home Care (Wound Orders) 12/28/2023 Telephone [facility] [address] [address] Rajwinder Paulino, collaborative teacher 12/28/2023 Plan of Care Documentation [facility] [address] [place] [address] 12/27/2023 8:00 AM CDT Home Care Visit [facility] [address] [place] [phone] Rajwinder Paulino, RN SN - OASIS START OF CARE 12/25/2023 10:00 AM CDT Pharmacist Medication Management [facility] [address] [place] [address] Mira Vázquez PharmD Pharmacist Medication Management (CMR initial - provider referral - phone visit - antibiotic interaction concerns) 12/25/2023 Travel 12/24/2023 Refill [facility] [address] [place] [address] Verónica Barnes PA Refill Request (Furosemide) 12/24/2023 Patient Outreach [facility] Care Management - Advanced Care Team [address] [place] [address] Cortney Razo Medication Management (CMR PROVIDER REFERRAL - covered) 12/23/2023 Travel 12/21/2023 2:40 PM CDT Office Visit [facility] [address] [place] [address] Astird Hitchcock, DO Rash; Ankle Pain/problem (left ankle oozing) 12/21/2023 Travel 12/21/2023 Telephone [facility] [address] [place] [address] Verónica Barnes PA Appointment Request 12/17/2023 8:15 AM CDT Ancillary Procedure [facility] [address] [facility] [place] [address] 12/16/2023 11:00 AM CDT Office Visit [facility] [address] [facility] [address] [place] [address] Hans Lay MD Consult (cirrhosis and c.o abdominal bloating, constipation, diarrhea. patient reports having her last bevarage on oct 10 ) 12/16/2023 Travel 12/14/2023 11:40 AM CDT Office Visit [facility] [address] [place] [address] Maxx Dubois MD Rash 12/14/2023 E-Consult [facility] [address] [place] [address] Bridget Granados MD 12/14/2023 Refill [facility] [address] [place] [address] Verónica Barnes PA Refill Request (Acyclovir) 12/14/2023 Telephone [facility] [address] [place] [address] Verónica Barnes PA Prior Authorization (nystatin (MYCOSTATIN) cream Approved 12/14/23-10/04/24) 12/14/2023 Travel 12/11/2023 Refill [facility] [address] [place] [address] Verónica Barnes PA Refill Request (Acyclovir) 12/09/2023 Telephone [facility] [address] [place] [address] Verónica Barnes PA Questions 12/09/2023 Refill [facility] [address] [place] [address] Verónica Barnes PA Refill Request (FUROSEMIDE) 12/07/2023 9:30 AM CATTLE SORTER Nurse/Clinic Staff Only [facility] [address] [facility] [place] [address] Wound Check (Abhay leg wraps) 12/07/[address] [place] [address] Verónica Barnes PA Refill Request (Acyclovir) 12/07/2023 Travel 12/04/2023 9:30 AM CATTLE SORTER Nurse/Clinic Staff [place] [address] [place] [address] 12/03/2023 7:30 AM CATTLE SORTER Ancillary Procedure [address] [place] [address] 12/03/[address] [address] Verónica Barnes PA Refill Request (Lidocaine) 12/03/2023 Travel 12/02/2023 1:00 PM CATTLE SORTER Nurse/Clinic Staff [place] [address] [place] [address] Dressing Change (Bilateral legs/) 12/02/2023 11:00 AM CATTLE SORTER Orders Only [facility] [address] [place] [address] 1 scan: (1-Ord) ECHO TTE COMPLETE WO CONTRAST ([id number]) 12/01/2023 1:15 PM CATTLE SORTER Orders [place] [address] [place] [address] Lab, [facility]; Outside Order (Tiarra Campos) 12/01/2023 10:10 AM CATTLE SORTER Office Visit [address] [place] [address] Verónica Barnes PA Derm Problem (Red itchy rash, blisters that are leaking x 3 days); Concerns (Can't move her legs at all anymore, this started after last PT visit) 12/01/2023 Travel 11/27/2023 Telephone [facility] [address] [place] [address] Verónica Barnes PA Concerns (Fluid weight/functional status) 11/17/2023 Telephone [facility] [address] [place] [address] Verónica Barnes PA Questions (Fax- [facility]) 11/12/2023 9:00 AM CATTLE SORTER Home Care Visit [facility] [address] [place] [address] Miah Sal RN SN - OASIS DISCHARGE 11/11/2023 Telephone [facility] [address] [place] [address] Nikos Perez, PT Home Care 11/10/2023 8:45 AM CATTLE SORTER Home Care Visit [facility] [address] [place] [address] Nikos Perez, PT PT - DISCIPLINE DISCHARGE 11/10/2023 Travel 11/06/2023 7:50 AM CATTLE SORTER Office Visit [facility] [address] [place] [address] Verónica Barnes PA Follow Up (Appetite is getting better, still alittle weak and dizzy at times) 11/06/2023 Travel 11/04/2023 8:45 AM CATTLE SORTER Home Care Visit [facility] [address] [place] [address] Nikos Perez, PT PT - HOME VISIT from Last 3 Months Immunizations Name Administration Dates Next Due AMB INFLUENZA, IIV4 (AGE=>6M OS) MDV (Flu Clinic Only) 07/14/2020 COVID-19 vaccine (Pfizer-Bio NTech 30mcg/0.3mL) 12YO+ TOAN-SUCROSE PF, MDV 03/17/2022 COVID-19 vaccine (SeeJay 30mcg/0.3mL) PF, MDV 09/09/2021 Influenza A (H1N1), [...] 03/31/1991 Smokeless Tobacco: Never Tobacco Cessation:Counseling Given: Not Answered Alcohol Use Standard Drinks/Week Comments Not Currently 0 (1 standard drink = 0.6 oz pur e alcohol) 2 glasses of wine per week PHQ-2 Answer Date Recorded PHQ-2 TOTAL SCORE 0 09/11/2023 Social Connections Answer Date Recorded Frequency of Communication with Friends and Fami ly 0 10/27/2023 Financial Resource Strain Answer Date R ecorded Difficulty of Paying Living Expenses 3 10/27/2023 Difficulty of Paying Living Expenses Not on file 10/27/2023 Food Insecurity Answer Date Recorded Worried About Running Out of Food in the Last Ye ar 1 10/27/2023 Transportation Needs Answer Date Record ed Lack of Transportation (Medical) 1 10/27/2023 Housing Stability Answer Date Recorded Unable to Pay for Housing in the Last Year 1 10/27/2023 Sex and Gender Information Value Date Recorded [...] Sign Reading Time Taken Comments Blood Pressure 115/79 02/01/2024 7:35 AM CDT Pulse 87 02/01/2024 7:35 AM CDT Temperature 36.6 ??C (97.8 ??F) 01/28/2024 3:27 PM CD T Respiratory Rate 18 01/28/2024 3:27 PM CDT Oxygen Saturation 100% 02/01/2024 7:35 AM CDT Inhaled Oxygen Concentration - - Weight 93 kg (205 lb) 01/27/2024 9:15 AM CDT Height 172.7 cm (5' 8) 12/27/2023 9:57 AM CDT Body Mass Index 31.17 12/27/2023 9:57 AM CDT Plan of Treatment Upcoming Encounters Date Type Department Care Team (Late st Contact Info) Description 02/02/2024 2:00 PM CDT Home Care Visit [facility] [address] [place] [address] Dasha Hu COTA [address] [place] [address] 02/02/2024 3:30 PM CDT Office Visit [facility] [address] [facility] [place] [address] Kane Donis DPM [address] [place] [address] 02/03/2024 5:00 AM CDT Home Care Visit [facility] [address] [place] [address] Soco Carmona LPN 02/04/2024 7:15 AM CDT Orders Only [facility] [address] [facility] [place] [address] Lab, [place] 02/04/2024 7:30 AM CDT Ancillary Procedure [facility] [address] [place] [address] 02/05/2024 4:00 AM CDT Home Care Visit [facility] [address] [place] [phone] Dasha Hu, NAIR [address] [place] [address] 02/09/2024 4:00 AM CDT Home Care Visit [facility] [address] [place] [address] Dasha Hu, NAIR [address] [place] [address] 02/11/2024 4:30 AM CDT Home Care Visit [facility] [address] [place] [address] Miah Sal, RN [address] [address] 02/12/2024 4:00 AM CDT Home Care Visit [facility] [address] [place] [address] Dasha Hu, NAIR [address] [place], [id number] 02/16/2024 6:30 AM CDT Home Care Visit [facility] [address] [place] [address] Cori Oneal OT [address] [place] [address] 02/18/2024 4:30 AM CDT Home Care Visit [facility] [address] [place] [address] Miah Sal, RN [address] [place] [address] 02/24/2024 4:30 AM CDT Home Care Visit [facility] [address] [place] [address] Miah Sal, RN [address] [address] 03/23/2024 1:00 PM CDT Office Visit Richard Mad[facility] at [facility] [address] [place] [address] Siva Jamil MD [address] [place] [address] Health Maintenance Due Date Last Done Comments Hepatitis B series for Diabe jorge (1 of 3 - 19+ 3-dose series) 1984 COVID-19 vaccine series ( season) 2023 09/04/2022, 03/17/2022, 09/09/2021, Additional history exists Mammogram for age 45-75 05/25/2024 05/25/20 23, 05/23/2022, 04/23/2021, Additional history exists Influenza for age 50-64 06/05/2024 07/31/20 22, 07/09/2021, 07/14/2020, Additional history exists Depression screening for age 12+ 09/11/2024 09/11/2023, 09/11/2023, 01/02/2023, Additional history exists BMI (ht and wt on same day) for age 18+ 12/15/2024 12/16/2023, 09/11/2023, 10/21/2022, Additional history exists Colonoscopy through age 75 [...] 09/02/2022, 09/06/2012 Medical Devices Implanted Type Area Dye House Vat Worker Device Identifier Shelf Expiration Date Model / Serial / Lot M0.45 - [id number] Implanted:Qty: 1 on 05/29/2016 by Kane Donis DPM at [facility] Left: Toe 0.45 / / Description:0.45 kwire from tray Triathlon Tritanium Tibial Component Implanted:Qty: 1 on 11/16/2017 by Shay Sanders MD at [facility] Left: Knee [employer] 08/10/2022 / / [id number] Triathlon Ps Femoral Implanted:Qty: 1 on 11/16/2017 by Shay Sanders MD at [facility] Left: Knee Ja [employer] 06/03/2022 / / [id number] Triathlon X3 Tibial Bearing Insert Ps Implanted:Qty: 1 on 11/16/2017 by Shay Sanders MD at [facility] Left: Knee [employer] 06/02/2022 / / [id number] Triathlon Tritanium Asymmetric Patella Implanted:Qty: 1 on 11/16/2017 by Shay Sanders MD at [facility] Left: Knee [employer] 06/29/2022 / / [id number] Procedures Procedure Name Priority Date/Time Associated Diagnosis Comments CBC WITH AUTO DIFFERENTIAL Routine 02/01/2024 9:07 AM CDT Alcoholic cirrhosis of liver without ascites (HC) Hypokalemia COMP METABOLIC PANEL Routine 02/01/2024 9:07 AM CDT Alcoholic cirrhosis of liver without ascites (HC) Hypokalemia CBC WITH AUTO DIFFERENTIAL Routine 02/01/2024 9:07 AM CDT Alcoholic cirrhosis of liver without ascites (HC) Hypokalemia XR KNEE 2 VIEWS RIGHT Routine 01/06/2024 2:06 PM CDT Acute pain of right knee XR HUMERUS MIN 2 VIEWS RIGHT Routine 01/06/2024 2:05 PM CDT Right arm pain BASIC METABOLIC PANEL Routine 01/06/2024 1:48 PM CDT Hypokalemia XR HUMERUS MIN 2 VIEWS RIGHT Routine 12/30/2023 11:39 AM CDT Right arm pain CBC WITH AUTO DIFFERENTIAL Routine 12/30/2023 11:30 AM CDT Fatigue, unspecified type CBC WITH AUTO DIFFERENTIAL Routine 12/30/2023 11:30 AM CDT Fatigue, unspecified type BASIC METABOLIC PANEL Routine 12/30/2023 11:30 AM CDT Fatigue, unspecified type CBC WITH AUTO DIFFERENTIAL Routine 12/21/2023 4:25 PM CDT Pedal edema CBC WITH AUTO DIFFERENTIAL Routine 12/21/2023 4:25 PM CDT Pedal edema HEPATIC FUNCTION PANEL Routine 12/21/2023 4:25 PM CDT Other ascites XR ABDOMEN 2 VIEW FLAT AND UPRIGHT OR DECUBITUS Routine 12/17/2023 8:34 AM CDT Chronic constipation Megacolon, acquired, functional US ABDOMEN COMPLETE Routine 12/03/2023 8 :18 AM CATTLE SORTER Weight loss Alcoholic cirrhosis of liver with ascites (HC) ECHO TTE COMPLETE WO CONTRAST Routine 12/02/2023 11:51 AM CATTLE SORTER Newly recognized murmur COMP METABOLIC PANEL Routine 12/01/2023 11:58 AM CATTLE SORTER Alcoholic cirrhosis of liver without ascites (HC) PROTIME-INR Routine 12/01/2023 11:58 AM CATTLE SORTER Chronic liver disease HEPATIC FUNCTION PANEL Routine 12/01/2023 11:58 AM CATTLE SORTER Chronic liver disease CBC W PLT NO DIFF Routine 12/01/2023 11: 58 AM CATTLE SORTER Chronic liver disease AFP TUMOR MARKER SERUM Routine 12/01/2023 11:58 AM CATTLE SORTER Chronic liver disease URINALYSIS MICROSCOPIC Routine 11/06/2023 9:00 AM CATTLE SORTER UTI (urinary tract infection), uncomplicated UA W/ SEDIMENT EXAM REFLEXED PER CRITERIA Routine 11/06/2023 9:00 AM CATTLE SORTER UTI (urinary tract infection), uncomplicated BASIC METABOLIC PANEL Routine 11/06/2023 8:40 AM CATTLE SORTER Hyponatremia Hypokalemia LIPID PANEL W REFLEX MEASURED LDL Routine 09/11/2023 9:11 AM CATTLE SORTER Essential hypertension XR MAMMO BILAT SCREENING Routine 05/25/2023 9:38 AM CDT Visit for screening mammogram ANTI HCV Routine 09/09/2018 1:46 PM CATTLE SORTER CIDP (chronic inflammatory demyelinating polyneuropathy) (HC) ANTI HIV 1/2 Routine 04/23/2016 12:08 PM CDT Angular cheilitis SCAN-COLONOSCOPY 09/07/2015 7:30 AM CATTLE SORTER from Last 3 Months or Most Recently Relevant to Health Maintenance Results * (ABNORMAL) CBC WITH AUTO DIFFERENTIAL (02/01/2024 9:07 AM CDT) Only the most recent of3 resultswithin the time period is included. WHITE BLOOD COUNT 7.7 4.5 - 11.0 thou/cu mm 02/01/2024 9:18 AM CDT [facility] RED BLOOD COUNT 3.76(L) 4.00 - 5.20 mil/cu mm 02/01/2024 9:18 AM CDT [facility] HEMOGLOBIN 11.8(L) 12.0 - 16.0 g/dL 02/01/2024 9:18 AM CDT [facility] HEMATOCRIT 34.5 33.0 - 51.0 % 02/01/2024 9:18 AM CDT [facility] MCV 92 80 - 100 fL 02/01/2024 9:18 AM CDT [facility] MCH 31.4 26.0 - 34.0 pg 02/01/2024 9:18 AM CDT [facility] MCHC 34.2 32.0 - 36.0 g/dL 02/01/2024 9:18 AM CDT [facility] RDW 13.8 11.5 - 15.5 % 02/01/2024 9:18 AM CDT [facility] PLATELET COUNT 195 140 - 440 thou/cu mm 02/01/2024 9:18 AM CDT [facility] MPV 9.8 6.5 - 11.0 fL 02/01/2024 9:18 AM CDT [facility] % NEUT 73.3 % 02/01/2024 9:18 AM CDT [facility] % LYMPH 17.1 % 02/01/2024 9:18 AM CDT [facility] % MONO 8.9 % 02/01/2024 9:18 AM CDT [facility] % EOS 0.3 % 02/01/2024 9:18 AM CDT [facility] % BASO 0.4 % 02/01/2024 9:18 AM CDT [facility] ABSOLUTE NEUTROPHILS 5.6 1.7 - 7.0 thou/cu mm 02/01/2024 9:18 AM CDT [facility] ABSOLUTE LYMPHOCYTES 1.3 0.9 - 2.9 thou/cu mm 02/01/2024 9:18 AM CDT [facility] ABSOLUTE MONOCYTES 0.7 <0.9 thou/cu mm 02/01/2024 9:18 AM CDT [facility] ABSOLUTE EOSINOPHILS 0.0 <0.5 thou/cu mm 02/01/2024 9:18 AM CDT [facility] ABSOLUTE BASOPHILS 0.0 <0.3 thou/cu mm 02/01/2024 9:18 AM CDT [facility] Blood BLOOD SPECIMEN / Unknown Venipuncture / Unknown 02/01/2024 9:07 AM CDT 02/01/2024 9:08 AM CDT Verónica ENNIS HEMATOLOGY Performing Organization Address City/State/[facility] Co de Phone Number [facility] [address] [place] [address], * (ABNORMAL) COMP METABOLIC PANEL (02/01/2024 9:07 AM CDT) Only the most recent of2 resultswithin the time period is included. SODIUM 134(L) 136 - 145 mmol/L 02/02/2024 5:01 AM CDT [facility] POTASSIUM 3.5 3.5 - 5.1 mmol/L 02/02/2024 5:01 AM CDT [facility] CHLORIDE 98 98 - 107 mmol/L 02/02/2024 [facility] CO2,TOTAL 26 22 - 29 mmol/L 02/02/2024 5:[address] [facility] ANION GAP 10 5 - 18 02/02/2024 5:[address] [facility] GLUCOSE 95 70 - 99 mg/dL 02/02/2024 5:[address] [facility] CALCIUM 8.3(L) 8.6 - 10.0 mg/dL 02/02/2024 5:[address] [facility] BUN 8 6 - 20 mg/dL 02/02/2024 5:01 AM [facility] CREATININE 0.63 0.50 - 0.90 mg/dL 02/02/2024 5:[address] [facility] BUN/CREAT RATIO 13 10 - 20 5:[address] [facility] eGFR >90 >90 mL/min/1.7 3m2 02/02/2024 5:[address] [facility] Comment:As of 2021, eG FR is calculated by the CKD-EPI creatinine equation without race adjustment. ??eGFR can be influenced by muscle mass, exercise, and diet. ??The reported eGFR is an estimation only and is only applicable if the renal function is stable. ALBUMIN 2.8(L) 4.0 - 4.9 g/dL 02/02/2024 5:[address] [facility] PROTEIN,TOTAL 6.3 6.0 - 8.0 g/dL 02/02/2024 5:[address] [facility] BILIRUBIN,TOTAL 1.4(H) 0.0 - 1.2 mg/dL 02/02/2024 5:[address] [facility] ALK PHOSPHATASE 121(H) 35 - 104 IU/L 02/02/2024 5:[address] [facility] ALT (SGPT) 24 10 - 35 IU/L 02/02/2024 5:01 AM CDT [facility] AST (SGOT) 41(H) 10 - 35 IU/L 02/02/2024 5:01 AM CDT [facility] Blood BLOOD SPECIMEN / Unknown Venipuncture / Unknown 02/01/2024 9:07 AM CDT 02/01/2024 9:08 AM CDT Verónica ENNIS CHEMISTRY [facility] [address] [place] [address], * XR KNEE 2 VIEWS RIGHT (01/06/2024 2:06 PM CDT) Anatomical Region Laterality Modality KNEE R Computed Radiogr aphy 01/07/2024 2:36 PM CDT Narrative 01/07/2024 2:36 PM CDT For Patients: ??As a result of the Cures Act, medical imaging exams and procedure reports are released immediately into your electronic medical record. ??You may view this report before your referring provider. ??If you have questions, please contact your health care provider. INDICATION: Acute pain right knee. FINDINGS: Two views of the right knee were obtained. There is a total knee arthroplasty in place. There is no acute fracture or dislocation. Dictated by Jay Guzman MD @ 01/07/2024 2:36:11 PM (Electronically Signed) Procedure Note Jay Guzman MD - 01/07/2024 For Patients: As a result of the Cures Act, medical imagingexams and procedure reports are released immediately into your electronicmedical record. You may view this report before your referring provider.If you have questions, please contact your health care provider. INDICATION: Acute pain right knee. FINDINGS: Two views of the right knee were obtained. There is a total kneearthroplasty in place. There is no acute fracture or dislocation. Dictated by Jay Guzman MD @ 01/07/2024 2:36:11 PM (Electronically Signed) Verónica ENNIS GENERAL IMAGING * XR HUMERUS MIN 2 VIEWS RIGHT (01/06/2024 2:05 PM CDT) Only the most recent of2 resultswithin the time period is included. Anatomical Region Laterality Modality HUMERI, HUMERUS R Computed Radio graphy 01/07/2024 2:34 PM CDT Impressions 01/07/2024 2:34 PM CDT No acute bone abnormality. Dictated by Jay Guzman MD @ 01/07/2024 2:34:49 PM (Electronically Signed) Narrative 01/07/2024 2:34 PM CDT For Patients: ??As a result of the Cures Act, medical imaging exams and procedure reports are released immediately into your electronic medical record. ??You may view this report before your referring provider. ??If you have questions, please contact your health care provider. INDICATION: Right arm pain. FINDINGS: Two views of right humerus were obtained. There is no acute fracture seen or dislocation. There are mild degenerative changes in the right shoulder Procedure Note Jay Guzman MD - 01/07/2024 For Patients: As a result of the Cures Act, medical imagingexams and procedure reports are released immediately into your electronicmedical record. You may view this report before your referring provider.If you have questions, please contact your health care provider. INDICATION: Right arm pain. FINDINGS: Two views of right humerus were obtained. There is no acute fracture seenor dislocation. There are mild degenerative changes in the right shoulder IMPRESSION: No acute bone abnormality. Dictated by Jay Guzman MD @ 01/07/2024 2:34:49 PM (Electronically Signed) Verónica ENNIS GENERAL IMAGING * (ABNORMAL) BASIC METABOLIC PANEL (01/06/2024 1:48 PM CDT) Only the most recent of3 resultswithin the time period is included. SODIUM 136 136 - 145 mmol/L 01/06/2024 10:12 PM CDT [facility] POTASSIUM 4.2 3.5 - 5.1 mmol/L 01/06/2024 10:12 PM CDT [facility] CHLORIDE 101 98 - 107 mmol/L 01/06/2024 10:12 PM CDT [facility] CO2,TOTAL 27 22 - 29 mmol/L 01/06/2024 10:12 PM CDT [facility] ANION GAP 8 5 - 18 01/06/2024 10:12 PM CDT [facility] GLUCOSE 77 70 - 99 mg/dL 01/06/2024 10:12 PM CDT [facility] CALCIUM 8.3(L) 8.6 - 10.0 mg/dL 01/06/2024 10:12 PM CDT [facility] BUN 12 6 - 20 mg/dL 01/06/2024 10:12 PM CDT [facility] CREATININE 0.64 0.50 - 0.90 mg/dL 01/06/2024 10:12 PM T [facility] BUN/CREAT RATIO 19 10 - 20 10:12 PM CDT [facility] eGFR >90 >90 mL/min/1.7 3m2 01/06/2024 10:12 PM CDT [facility] Comment:As of 2021, eG FR is calculated by the CKD-EPI creatinine equation without race adjustment. ??eGFR can be influenced by muscle mass, exercise, and diet. ??The reported eGFR is an estimation only and is only applicable if the renal function is stable. Blood BLOOD SPECIMEN / Unknown Venipuncture / Unknown 01/06/2024 1:48 PM CDT 01/06/2024 1:49 PM CDT Verónica ENNIS [facility]STRY [facility] [address] [place] [address], * (ABNORMAL) HEPATIC FUNCTION PANEL (12/21/2023 4:25 PM CDT) Only the most recent of2 resultswithin the time period is included. ALBUMIN 2.8(L) 4.0 - 4.9 g/dL 12/22/2023 2:38 PM CDT [facility] PROTEIN,TOTAL 6.4 6.0 - 8.0 g/dL 12/22/2023 2:38 PM CDT [facility] BILIRUBIN,TOTAL 1.2 0.0 - 1.2 mg/dL 12/22/2023 2:38 PM CDT [facility] BILIRUBIN,DIRECT 0.6(H) 0.0 - 0.3 mg/dL 12/22/2023 2:38 PM CDT [facility] BILIRUBIN,INDIRE CT 0.6 0.2 - 0.8 mg/dL 12/22/2023 2:38 PM CDT [facility] ALK PHOSPHATASE 105(H) 35 - 104 IU/L 12/22/2023 2:38 PM CDT [facility] ALT (SGPT) 21 10 - 35 IU/L 12/22/2023 2:38 PM CDT [facility] AST (SGOT) 43(H) 10 - 35 IU/L 12/22/2023 2:38 PM CDT [facility] Blood BLOOD SPECIMEN / Unknown Venipuncture / Unknown 12/21/2023 4:25 PM CDT 12/21/2023 4:28 PM CDT Astrid Hitchcock DO CHEMISTRY [facility] [address] [place] [address], [place] * XR ABDOMEN 2 VIEW FLAT AND UPRIGHT OR DECUBITUS (12/17/2023 8:34 AM CDT) Anatomical Region Laterality Modality Abdomen Computed Radiogr aphy 12/17/2023 8:52 AM CDT Narrative 12/17/2023 8:52 AM CDT For Patients: ??As a result of the Century Cures Act, medical imaging exams and procedure reports are released immediately into your electronic medical record. ??You may view this report before your referring provider. ??If you have questions, please contact your health care provider. INDICATION: Chronic constipation. Megacolon. TECHNIQUE: Abdomen 3 view. COMPARISON: CT abdomen pelvis 07/08/2022 FINDINGS: Bowel: Large gas dilated loop of bowel overlying the mid and left abdomen similar to the previous CT scan. Soft tissues: No sign of free air. No sign of soft tissue mass. No suspicious calcifications. Bones: Unremarkable for age. Dictated by Anaya Matthew MD @ 12/17/2023 8:52:13 AM (Electronically Signed) Procedure Note Marvel Matthew MD - 12/17/2023 For Patients: As a result of the Cures Act, medical imagingexams and procedure reports are released immediately into your electronicmedical record. You may view this report before your referring provider.If you have questions, please contact your health care provider. INDICATION: Chronic constipation. Megacolon. TECHNIQUE: Abdomen 3 view. COMPARISON: CT abdomen pelvis 07/08/2022 FINDINGS: Bowel: Large gas dilated loop of bowel overlying the mid and left abdomensimilar to the previous CT scan. Soft tissues: No sign of free air. No sign of soft tissue mass. Nosuspicious calcifications. Bones: Unremarkable for age. Dictated by Anaya Matthew MD @ 12/17/2023 8:52:13 AM (Electronically Signed) Hans Lay MD GENERAL IMAGING * US ABDOMEN COMPLETE (12/03/2023 8:18 AM CATTLE SORTER) Anatomical Region Laterality Modality Abdomen, LIVER, KIDNEYS, PANCREAS, GALLBLADDER, SPLEEN Ultrasound Impressions 12/03/2023 2:54 PM CATTLE SORTER Cirrhotic liver with mild ascites. Gallbladder wall thickening without gallstones likely related to chronic liver disease. Splenomegaly. Dictated by Nikos Abraham MD @ 12/03/2023 2:13:42 PM Signed by: Nikos Abraham MD @12/03/2023 2:13:42 PM (Electronic Signature) Narrative 12/03/2023 2:54 PM CATTLE SORTER CLINICAL HISTORY: Cirrhosis COMPARISON: 08/17/2023 TECHNIQUE: Real time belle scale imaging and color Doppler analysis was performed of the abdomen. FINDINGS: The liver echotexture is coarsened. No intrahepatic mass. Macrolobular contour of the liver noted. The spleen measures 15.0 cm. The pancreas is not visualized due to overlying bowel gas. Visualized aorta appears normal. Incomplete visualization of the IVC. Ascites is present. The gallbladder is of normal size and there is no evidence of sludge or stones within the gallbladder lumen. The gallbladder wall measures 5 mm in thickness. The common bile duct measures 5 mm in size within the maryse hepatis. The kidneys appear symmetric. The right kidney measures 11.5 cm in length and the left kidney measures 12.4 cm. There is no evidence of a renal calculus or hydronephrosis. Simple cyst left kidney measuring 1.4 x 1.7 x 1.6 cm. Verónica ENNIS US * ECHO TTE COMPLETE WO CONTRAST (12/02/2023 11:51 AM CATTLE SORTER) AORTIC VALVE MEAN PG 5 mmHg EJECTION FRACTION 71 % LVEDD 4.7 cm EJECTION FRACTION 60 - 65% Anatomical Region Laterality Modality Ultrasound 12/02/2023 11:2 5 AM CATTLE SORTER Narrative 12/02/2023 1:54 PM CATTLE SORTER ECHOCARDIOGRAM CATHY RAYMOND ?Accession#: ?? [id number] : ?1965 58 years Study Date: ?? 12/02/2023 11:25:12 AM Gender: F ? BP: ? 112/78 mmHg Height: 173.00 cm ? BSA: ?1.98 m? ? ? Weight: 84.00 kg ?Tech: ? MSR ?Referring MD: VERÓNICA BARNES Site: ? [facility] Reading Location: Mobile OP Patient Location: Outpatient. Procedure: 2D, Spectral Doppler and Color Doppler. Indication for study: Newly recognized murmur Cardiac Rhythm: Regular.Study quality: Fair. Final Impressions: 1. Normal LV size, normal wall thickness, normal global systolic function with an estimated EF of 60 - 65%. 2. Right ventricular cavity size is normal, global systolic RV function is normal. 3. Mildly enlarged left atrium. 4. The mitral valve is sclerotic, trace mitral regurgitation. 5. The ascending aorta is dilated with a maximal diameter of 3.9 cm. Comparison There are no prior studies on this patient for comparison purposes. Chamber Sizes and Function Normal left ventricular size, normal wall thickness, normal global systolic function with an estimated EF of 60 - 65%. Left atrial size is mildly enlarged. Right ventricular cavity size is normal, global systolic RV function is normal. RV wall thickness is normal. The right atrium is normal. The pulmonary artery is of normal size and origin. The sinus of Valsalva is normal sized. The ascending aorta is dilated. Valves, RV Pressures and Diastolic Function The aortic valve is trileaflet, no stenosis and trivial regurgitation. The mitral valve is sclerotic, trace mitral regurgitation. Spectral Doppler shows Grade 1 pattern of LV diastolic filling. The tricuspid valve is normal in structure. Tricuspid regurgitation is trace regurgitation. The pulmonic valve is normal. No pulmonary regurgitation. Masses, Effusion, Shunts There is no pericardial effusion. The inferior vena cava is normal sized, respiratory size variation greater than 50%. Interatrial septum is not well visualized. MEASUREMENTS AND CALCULATIONS 2-D Measurements and LV Function: LVID (d) 4.7 cm LV FS% (2D) ?? 42 % LVID (s) 2.7 cm LVOT diameter 2.1 cm IVS (d) ??0.7 cm HR ?77 bpm LVPW (d) 1.0 cm LA Vol index ??33 ml/m2 Ao Sinus 3.4 cm RV Max 4C (d) 3.8 cm Asc Ao ?? 3.9 cm Diastology: Mitral ?Tissue Doppler E Peak 0.8 m/s ??e', Septum ? 0.07 m/s A Peak 1.1 m/s ??e', Lateral ?0.09 m/s E/A ?0.7 ?E/e' Average ?? 9.89 DT ? 175 msec Aortic Valve: Vmax ? 1.5 m/s ??PIERCE (V) ?? 2.15 cm? ? ? VTI ?0.32 m ?? PIERCE (I) ?? 2.36 cm? ? ? LVOT V max 0.9 m/s ??Max PG ?9 mmHg LVOT VTI ?? 0.22 m ?? Mean PG ?? 5 mmHg SV ? 77 ml ?Dim Index 0.67 SV index ?? 39 ml/m? ? ? CO ?5.9 l/min ?CI ?3.0 l/min/m? ? ? Mitral Valve: MVA ? 4.3 cm? ? ? MV P 1/2 ??51 msec MV Mean G 1 mmHg MV VTI ?0.25 m Tricuspid Valve and estimated PA pressures: TAPSE 2.4 cm . This study was interpreted by an [facility] accredited facility. ??Final ?? Procedure Note Amado Rodríguez MD - 12/02/2023 ECHOCARDIOGRAM CATHY RAYMOND : 1965 58 years Study Date: 12/02/2023 11:25:12 AM Gender: F BP: 112/78 mmHg Height: 173.00 cm BSA: 1.98 m? ? ? Weight: 84.00 kg Tech: SUKI Referring MD: VERÓNICA BARNES Site: [facility] Reading Location: Mobile OP Patient Location: Outpatient. Procedure: 2D, Spectral Doppler and Color Doppler. Indication for study: Newly recognized murmur Cardiac Rhythm: Regular.Study quality: Fair. Final Impressions: 1. Normal LV size, normal wall thickness, normal global systolic functionwith an estimated EF of 60 - 65%. 2. Right ventricular cavity size is normal, global systolic RV functionis normal. 3. Mildly enlarged left atrium. 4. The mitral valve is sclerotic, trace mitral regurgitation. 5. The ascending aorta is dilated with a maximal diameter of 3.9 cm. Comparison There are no prior studies on this patient for comparison purposes. Chamber Sizes and Function Normal left ventricular size, normal wall thickness, normal globalsystolic function with an estimated EF of 60 - 65%. Left atrial size ismildly enlarged. Right ventricular cavity size is normal, global systolicRV function is normal. RV wall thickness is normal. The right atrium isnormal. The pulmonary artery is of normal size and origin. The sinus ofValsalva is normal sized. The ascending aorta is dilated. Valves, RV Pressures and Diastolic Function The aortic valve is trileaflet, no stenosis and trivial regurgitation. Themitral valve is sclerotic, trace mitral regurgitation. Spectral Dopplershows Grade 1 pattern of LV diastolic filling. The tricuspid valve isnormal in structure. Tricuspid regurgitation is trace regurgitation. Thepulmonic valve is normal. No pulmonary regurgitation. Masses, Effusion, Shunts There is no pericardial effusion. The inferior vena cava is normal sized,respiratory size variation greater than 50%. Interatrial septum is notwell visualized. MEASUREMENTS AND CALCULATIONS 2-D Measurements and LV Function: LVID (d) 4.7 cm LV FS% (2D) 42 % LVID (s) 2.7 cm LVOT diameter 2.1 cm IVS (d) 0.7 cm HR 77 bpm LVPW (d) 1.0 cm LA Vol index 33 ml/m2 Ao Sinus 3.4 cm RV Max 4C (d) 3.8 cm Asc Ao 3.9 cm Diastology: Mitral Tissue Doppler E Peak 0.8 m/s e', Septum 0.07 m/s A Peak 1.1 m/s e', Lateral 0.09 m/s E/A 0.7 E/e' Average 9.89 DT 175 msec Aortic Valve: Vmax 1.5 m/s PIERCE (V) 2.15 cm? ? ? VTI 0.32 m PIERCE (I) 2.36 cm? ? ? LVOT V max 0.9 m/s Max PG 9 mmHg LVOT VTI 0.22 m Mean PG 5 mmHg SV 77 ml Dim Index 0.67 SV index 39 ml/m? ? ? CO 5.9 l/min CI 3.0 l/min/m? ? ? Mitral Valve: MVA 4.3 cm? ? ? MV P 1/2 51 msec MV Mean G 1 mmHg MV VTI 0.25 m Tricuspid Valve and estimated PA pressures: TAPSE 2.4 cm . This study was interpreted by an [facility] accredited facility. Final Verónica ENNIS ECHO ORD * (ABNORMAL) CBC W PLT NO DIFF (12/01/2023 11:58 AM CATTLE SORTER) WHITE BLOOD COUNT 6.2 4.5 - 11.0 thou/cu mm 12/01/2023 12:05 PM [facility] RED BLOOD COUNT 3.38(L) 4.00 - 5.20 mil/cu mm 12/01/2023 12:05 PM [facility] HEMOGLOBIN 11.0(L) 12.0 - 16.0 g/dL 12/01/2023 12:05 PM [facility] HEMATOCRIT 32.4(L) 33.0 - 51.0 % 12/01/2023 12:05 PM [facility] MCV 96 80 - 100 fL 12/01/2023 12:05 PM [facility] MCH 32.5 26.0 - 34.0 pg 12/01/2023 12:05 PM [facility] MCHC 34.0 32.0 - 36.0 g/dL 12/01/2023 12:05 PM [facility] RDW 14.1 11.5 - 15.5 % 12/01/2023 12:05 PM [facility] PLATELET COUNT 146 140 - 440 thou/cu mm 12/01/2023 12:05 PM [facility] MPV 11.1(H) 6.5 - 11.0 fL 12/01/2023 12:05 PM [facility] Blood BLOOD SPECIMEN / Unknown Venipuncture / Unknown 12/01/2023 11:58 AM CATTLE SORTER 12/01/2023 12:00 PM CATTLE SORTER Narrative [facility] - 12/01/2023 12:05 PM CATTLE SORTER This testing was ordered by an outside provider. The provider who placed this order has reviewed and approved it for completion by the lab, but is not involved in this patient's care related to the ordering of this lab. The lab will provide the testing results for AFP-Tumor Marker, CBC, Creat, HFP and Protime, to the outside ordering provider, Tiarra Campos at fax number [phone], for that provider to inform and arrange appropriate follow up with the patient. Esperanza Brown MLT ([facility]).................... ??11/02/2023 ?? 4:02 PM Verónica ENNIS HEMATOLOGY [facility] [address] [place] [address], * (ABNORMAL) PROTIME-INR (12/01/2023 11:58 AM CATTLE SORTER) INR 1.2 <1.3 12/01/2023 8:36 PM [facility] PROTIME 13.5(H) 10.3 - 12.3 sec 12/01/2023 8:36 PM [facility] Blood BLOOD SPECIMEN / Unknown Venipuncture / Unknown 12/01/2023 11:58 AM CATTLE SORTER 12/01/2023 12:00 PM CATTLE SORTER Narrative [facility] - 12/01/2023 8:36 PM CATTLE SORTER ?Therapeutic Range 2.0-3.0 for most anticoagulated patients [...] seconds if the patient is on UFH. Verónica ENNIS HEMATOLOGY Performing Organization Address [facility]/ZIP Co de Phone Number [facility] [address] [address], * AFP TUMOR MARKER SERUM (12/01/2023 11:58 AM CATTLE SORTER) AFP TUMOR MARKER,SERUM 5.0 <=8.3 ng/mL 12/01/2023 10:04 PM CATTLE SORTER [facility] Blood BLOOD SPECIMEN / Unknown Venipuncture / Unknown 12/01/2023 11:58 AM CATTLE SORTER 12/01/2023 12:00 PM CATTLE SORTER [facility] - 12/01/2023 10:04 PM CATTLE SORTER The test method changed on 10/07/2022. If [...] at least one week prior to retesting. Verónica ENNIS SEND OUTS Performing Organization Address [facility] Co de Phone Number [facility] [address] [place] [address], * (ABNORMAL) URINALYSIS MICROSCOPIC (11/06/2023 9:00 AM CATTLE SORTER) RBC 0-2 0-2, None Seen /HPF 11/06/2023 9:32 AM CATTLE SORTER [facility] WBC 3-5 0-2, 3-5, None Seen /HPF 11/06/2023 9:32 AM CATTLE SORTER [facility] BACTERIA Many(A) None Seen, Rare, Few Bacteria/H PF 11/06/2023 9:32 AM CATTLE SORTER [facility] EPITHELIAL CELLS Few None Seen, Few Epi/HPF 11/06/2023 9:32 AM [facility] Urine URINE SPECIMEN / Unknown Non-Blood / Unknown 11/06/2023 9:00 AM CATTLE SORTER 11/06/2023 9:18 AM CATTLE SORTER Verónica ENNIS URINE [facility] [address] [place] [address], * (ABNORMAL) UA W/ SEDIMENT EXAM REFLEXED PER CRITERIA (11/06/2023 9:00 AM CATTLE SORTER) COLOR Yellow Yellow Color 11/06/2023 9:33 AM [facility] CLARITY Clear Clear Clarity 11/06/2023 9:33 AM [facility] SPECIFIC GRAVITY,URINE 1.010 1.010, 1.015, 1.020, 1.025 11/06/2023 9:33 AM [facility] PH,URINE 6.0 6.0, 7.0, 8.0, 5.5, 6.5, 7.5, 8.5 11/06/2023 9:33 AM [facility] UROBILINOGEN, QUALITATIVE Normal Normal EU/dl 11/06/2023 9:33 AM [facility] PROTEIN, URINE Negative Negative mg/dL 11/06/2023 9:33 AM [facility] GLUCOSE, URINE Negative Negative mg/dL 11/06/2023 9:33 AM [facility] KETONES,URINE Negative Negative mg/dL 11/06/2023 9:33 AM [facility] BILIRUBIN,URI NE Negative Negative 11/06/2023 9:33 AM [facility] OCCULT BLOOD,URINE Negative Negative 11/06/2023 9:33 AM [facility] NITRITE Negative Negative 11/06/2023 9:33 AM [facility] LEUKOCYTE ESTERASE Trace(A) Negative 11/06/2023 9:33 AM [facility] Urine URINE SPECIMEN / Unknown Non-Blood / Unknown 11/06/2023 9:00 AM CATTLE SORTER 11/06/2023 9:18 AM CATTLE SORTER Verónica ENNIS URINE [facility] [address] [place] [address], [place] [phone] * LIPID PANEL W REFLEX MEASURED LDL (09/11/2023 9:11 AM 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 SORTER) CHOLESTEROL,TOTAL 184 100 - 199 mg/dL 09/11/2023 4:35 PM CATTLE SORTER [facility] Comment: Cholesterol, Total Reference Ranges Desirable <200 mg/dL Borderline 200-239 mg/dL High >=240 mg/dL TRIGLYCERIDES 144 <150 mg/dL 09/11/2023 4:35 PM CATTLE SORTER [facility] HDL CHOLESTEROL 46 >40 mg/dL 4:35 PM CATTLE SORTER [facility] NON-HDL CHOLESTEROL 138 <145 mg/dl 09/11/2023 4:35 PM CATTLE SORTER [facility] CHOL/HDL RATIO 4.00 <4.50 09/11/2023 4:35 PM CATTLE SORTER [facility] LDL CHOLESTEROL 109 <=130 mg/dL 09/11/2023 4:35 PM CATTLE SORTER [facility] VLDL CHOLESTEROL 29 <=30 mg/dL 09/11/2023 4:35 PM CATTLE SORTER [facility] PROVIDER ORDERED STATUS RANDOM 09/11/2023 4:35 PM CATTLE SORTER [facility] Blood BLOOD SPECIMEN / Unknown Venipuncture / Unknown 09/11/2023 9:11 AM CATTLE SORTER 09/11/2023 9:13 AM CATTLE SORTER Verónica ENNIS [facility] [address] [place] [address], [place] * XR MAMMO BILAT SCREENING (05/25/2023 9:38 AM CDT) Anatomical Region Laterality Modality BREASTS, Breast Left, Breast Right Bilateral Mammography Impressions 05/25/2023 3:33 PM CDT ??There is no radiographic evidence for malignancy. ??Recommend annual mammograms. MAMMOGRAM ASSESSMENT: ??ACR 2 Benign PATIENTS: You will also receive a letter with your examination results in an easy to read format. ??If you have questions about your results, please contact your referring provider. Narrative 05/25/2023 3:33 PM CDT For Patients: As a result of the Century Cures Act, medical imaging exams and procedure reports are released immediately into your electronic medical record. You may view this report before your referring provider. If you have questions, please contact your health care provider. XR MAMMO BILAT SCREENING [[id number]] CLINICAL HISTORY: ??This is an asymptomatic 57 y.o. patient. INDICATION FOR EXAM: Mammogram Screening. TECHNIQUE: CC & MLO views were obtained. ??This study was evaluated with the assistance of Computer-Aided Detection. COMPARISON FILMS: Yes 05/23/22 [facility] 04/23/21 [facility] FINDINGS: ??The breasts have scattered areas of fibroglandular density. ??No suspicious masses or microcalcifications. ??There are benign appearing calcifications. and Post biopsy changes of both breasts. Verónica ENNIS MAMMO * ANTI HCV (09/09/2018 1:46 PM CATTLE SORTER) HEPATITIS C ANTIBODY Non-React velasquez Non-React velasquez 09/10/2018 2:37 PM CATTLE SORTER [facility] Comment:Antibodies to HCV no t detected; does not exclude the possibility of exposure to HCV. Blood BLOOD SPECIMEN / Unknown Venipuncture / Unknown 09/09/2018 1:46 PM CATTLE SORTER 09/09/2018 3:52 PM CATTLE SORTER Nikos Ventura MD SEND OUTS [facility] [address] [place] [address], [place] * ANTI HIV 1/2 (04/23/2016 12:08 PM CDT) HIV-1/HIV-2 ANTIBODY Non-Reacti ve Non-Reacti ve 04/23/2016 6:03 PM CDT [facility] Blood BLOOD SPECIMEN / Unknown Venipuncture / Unknown 04/23/2016 12:08 PM CDT 04/23/2016 12:08 PM CDT Narrative [facility] - 04/23/2016 6:03 PM CDT HIV-1 p24 and HIV-1/HIV-2 Ab not detected Nikos Ventura MD SEND OUTS [facility] [address] [place] [address], [place] * SCAN-COLONOSCOPY (09/07/2015 7:30 AM CATTLE SORTER) Narrative Transcriptions Jacob Shaikh MD - 09/07/2015 6:46 AM CST [facility] [address], [address], [place] [address] Patient Name: Cathy aRymond Gender: Female Exam Date: 09/07/2015 Visit Number: [id number] Age: 50 Years Date of : 1965 Attending MD: Jacob Shaikh MD Medical Record#: [id number] ----- Procedure: Colonoscopy Indications: Colorectal cancer screening Referring MD: Radha Alston MD Primary MD: Nikos Ventura MD Medications: Intra Procedure Medications: Received MAC sedation per anesthesia provider Complications: Procedure: An examination of the heart and lungs was performed and found to be withinacceptable limits. The patient was therefore deemed a reasonablecandidate for endoscopy and {cons_sedation: Unexpected Value} sedation. The risks and benefits of the procedure were explained to the patient.After obtaining informed consent, MAC sedation was administered peranesthesia provider and I passed the scope with difficulty via the rectum to the transverse colon. The quality ofthe prep was good (Miralax/Gatorade/2 tablets Bisacodyl/MagnesiumCitrate). This procedure was incomplete due to redundant colon. Findings: Polyp location: rectum. Quantity: 1. Size: 4 mm. Polyp shape: sessile. Maneuver: polypectomy was performed with a cold snare. Removal: complete. Retrieval: complete. Bleeding: none. Anal canal: normal Impression: Colon polyp Procedure: Upper GI Endoscopy Indications: Varices, rule out Provider: Jacob Shaikh MD Referring MD: Radha Alston MD Primary MD: Nikos Ventura MD Intra Procedure Medications: Received MAC sedation per anesthesia provider Complications: No immediate complications Procedure: An examination of the heart and lungs was performed within acceptablelimits. The patient was therefore deemed a reasonable candidate for andMAC sedation sedation. The risks and benefits were explained to the patient, who appeared tounderstand. After obtaining informed consent, the scope was passed underdirect vision. Throughout the procedure the patient's blood pressure,pulse and oxygen saturations were monitored. The scope was introducedthrough the mouth and advanced to the jejunum. Findings: Esophagus: Normal esophagus. The z-line is 41 centimeters from the incisors. Top of the gastric foldsis 41 centimeters from the incisors. Stomach: Previous surgical procedure:Gina-en-Y The diaphragm hiatus is at 41 centimeters from the incisors. Post Surgical Stomach. Previous Gina-en-Y. Finding - Superficialulceration at anastaomisis and visible messi. Duodenum: Normal duodenum. Impression: Alcoholic fatty liver Pathology Results: A: RECTUM, POLYP: Hyperplastic polyp MICROSCOPIC A: Performed Electronically signed by: Diogo Yang MD Final Plan: Repeat colonoscopy in 10 years for screening. If you have signs orsymptoms of lower GI illness or a new diagnosis of colon cancer in animmediate family member, you should contact [facility] or your primary providerto discuss whether your next exam should be repeated sooner. We will attempt to contact you at appropriate intervals via U.S. mail. Wemay not be able to find you or contact you at that time, therefore youshould know that the responsibility for following our recommendation restswith you. If you don't hear from us at the time your procedure is due,please contact our office to schedule an appointment. If your contactinformation should change, please contact our office so that we can updateyour record. Plan Comments: Recommendation Comments: Incomplete colonoscopy, recommend CT colographyto complete screening for colorectal cancer _Electronically signed by: Jacob Shaikh MD 09/07/2015 cc: Radha Ventura MD cc: Gamaliel MESSER, Radha Bishop Jacob Shaikh MD OTHER from Last 3 Months or Most Recently Relevant to Health Maintenance Advance Directives Documents on File Type Date Recorded Patient Insurance Customer Service Specialist Expl anation Healthcare Directive 09/02/2021 9:12 AM H EALTH CARE DIRECTIVE POLST 10/17/2020 7:59 AM POLST 03/25 * Full Code (Latest Code Status on File) Date Activated Date Inactivated Comments 11/16/2017 10:26 AM 11/19/2017 5:29 PM * Full Code Date Activated Date Inactivated Comments 11/16/2017 6:55 AM 11/16/2017 10:26 AM * Full Code Date Activated Date Inactivated Comments 05/29/2016 11:56 AM 05/29/2016 5:34 PM Question Answer Comments Code Status Discussion: Not Discussed * Full Code Date Activated Date Inactivated Comments 02/28/2010 11:58 AM 03/03/2010 7:10 PM Care Teams Emanations Analysis Technician Relationship Specialty Start Date End Date Verónica Barnes PA [facility] [place] [address] PCP - General Physician Chief Librarian Branch Or Department 11/30/20 Jacob Hernandez MD [address] [place] [address] Neurology 11/30/20 Tiarra Campos MD [facility] [facility] [place] [address] Gastroenterology 11/30/20 Nino Cadet MD [address] [place] [phone] Surgery - Orthopedics 11/30/20 [place] [id number] [place] [address] 12/23/23 Mira Vázquez, TiffanyD [address] [place] [address] [place] [address] Pharmacist Medication Management Pharmacology 12/25/23 12/24/26
--- OUTSIDE RECORDS SUMMARY | 2024-02-02 11:46 | XMS_ITS | Encounter Summary ---
Author Name Unknown Organization [place] Address [address] [place] [address]. [place] [address] Care Team Providers Care Child And Family Therapist Name Role Phone Dexter Sykes MD Unavailable [phone] Siva Hearn MD Unavailable [phone] Nikos Ventura Primary Care Provider Unavailabl Radha Luis RN Unavailable Unavailable Jacob Hernandez MD Unavailable [phone] Ronn Howard MD Unavailable [phone] [facility] Primary Care Provider Luis Mock PA-C Unavailable Joanna Pulido MD Unavailable [phone] Elissa Barnes Primary Care Provider Reason for Visit * Reason Onset Date Comments Call Back 05/12/2019 Office Notes Encounter Details Date Type Department Care Team (Late st Contact Info) Description 05/12/2019 Telephone Outpatient [facility] [address],Clinic 1F 516 [facility] [address] [place], [place] [address] Jacob Hernandez MD [address] [place], [place] [address] Call Back (Office Notes) Social History Tobacco [...] Louisa Hogan - 05/12/2019 9:08 AM CDT [facility] Call Center Phone Message May a detailed message be left on voicemail: yes Reason for Call: Other: Judi the Rn from [facility] is calling to speak with Nicolette or have Nicolette fax over the office notes on this pt. For further clarification please call Judi. Fax number is [phone] Action Taken: Message routed to: [facility] Neuro documented in this encounter Plan of Treatment Upcoming Encounters Date Type Department Care Team (Late st Contact Info) Description 4 8:00 AM CDT Hospital Encounter [facility] [address] [place] [address] Catarino Anderson MD [facility] [address] [place] [address] 4 8:00 AM CDT - 4 8:55 AM CDT Surgery [facility] [address] [facility] [address] Catarino Anderson MD [facility] [address] [place] [address] ESOPHAGOGASTRODUODENOSCOPY Scheduled Procedures Name Priority Associated Diagnoses Date/Ti ut ESOPHAGOGASTRODUODENOSCOPY Dysphagia, unspecified type 02/15/2024 8:00 AM CDT documented as of this encounter Visit Diagnoses Not on filedocumented in this encounter Additional Health Concerns 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 Source: [facility]. 10/03/2019 documented as of this encounter Care Teams Child And Family Therapist Relationship Specialty Start Date End Date Nikos Ventura [address] [address] PCP - General Family Practice 11/11/16 01/21/[address] [address] PCP - General 01/22/21 08/27/21 Elissa Barnes [address] [place] [address] PCP - General Physician Web Page Designer 08/28/21 Dexter Sykes MD [address] [address] 09/15/16 Siva Hearn MD [address] [address] Neurology 09/15/16 Radha Espinoza, GEOFF Registered Nurse Neurology 12/15/16 Jacob Hernandez MD [address] [place] [address] Assigned Neuroscience Provider 07/27/20 [place] [address] [address] Assigned Musculoskeletal Provider 12/09/20 02/09/21 Luis Mock PA-C [id number] [address] Assigned Musculoskeletal Provider 02/10/21 08/08/22 Joanna Pulido MD [address] [place] [id number] Assigned Cancer Care Provider 04/28/21 04/24/23 documented as of this encounter
--- OUTSIDE RECORDS SUMMARY | 2024-02-02 11:46 | XMS_ITS | Encounter Summary ---
Author Name Unknown Organization [place] Address [facility] [place] [address] Care Team Providers Care Energy And Sustainability Manager Name Role Phone Dexter Sykes MD Unavailable [phone] Siva Hearn MD Unavailable [phone] Nikos Ventura Primary Care Provider Unavailabl Radha Luis RN Unavailable Unavailable Jacob Hernandez MD Unavailable [phone] Ronn Howard MD Unavailable [phone] [place] [address] Primary Care Provider Luis Mock PA-C Unavailable Joanna Pulido MD Unavailable [phone] Elissa Barnes Primary Care Provider [phone] Reason for Visit * Reason Onset Date Comments Call Back 09/19/2020 Encounter Details Date Type Department Care Team ([facility] st Contact Info) Description 09/19/[address] [facility] 1st Floor, [facility] R[address] [place] [address] Jacob Hernandez MD [address] [place], [place] [address] Call Back Social History Tobacco Use Types [...] COVID-19? Unable to assess 09/04/2020 1:06 PM WELDER FITTER HELPER documented as of this encounter Miscellaneous Notes * Telephone Encounter - Giselle Britt RN - 09/20/2020 10:[address] (04/2018) for patient was ordered w/ contrast. Radiologist at [facility] (phone [phone]) would like current CT order to match in order to compare images. Gave VO for contrast only. [facility] also needs imaging from patient's 2018 CT to be sent over. Provided [facility] with imaging fax number (fax [phone]) so they can request images. Giselle Britt RN ER FITTER HELPER * Telephone Encounter - Miriam Lee MA - 09/19/2020 10:45 AM CST [facility] received CT order for patient but it just need to change to be with contrast alone.Please call with verbal order ER FITTER HELPER documented in this encounter Plan of Treatment Upcoming Encounters Date Type Department Care Team (Late st Contact Info) Description 4 8:00 AM CDT Hospital Encounter [facility] Services [address] [place] [phone] Catarino Anderson MD [facility] [address] [facility] [place] [address] 4 8:00 AM CDT - [facility] 8:[facility] [address] [place] [address] Catarino Anderson MD [facility] [address] [facility] [place] [address] ESOPHAGOGASTRODUODENOSCOPY Scheduled Procedures Name Priority Associated Diagnoses Date/Ti al ESOPHAGOGASTRODUODENOSCOPY Dysphagia, unspecified type 02/15/2024 8:00 AM CDT documented as of this encounter Visit Diagnoses Not on filedocumented in this encounter Additional Health Concerns 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 Source: [facility]. 10/03/2019 Assessment Noted Time PHQ-9 Depression Total Score: 8 09/04/20 20 1:10 PM WELDER FITTER HELPER documented as of this encounter Care Teams Energy And Sustainability Manager Relationship Specialty Start Date End Date Nikos Ventura [facility] [place] [address] [address] PCP - General Family Practice 11/11/16 01/21/21 [facility] [address] [place] [address] PCP - General 01/22/21 08/27/21 Elissa Barnes [address] [place] [address] PCP - General Physician In Service Education Teacher 08/28/21 Dexter Sykes MD [facility] [place] [address] [address] 09/15/16 Siva Hearn MD [facility] [place] [address] [address] Neurology 09/15/16 Radha Espinoza, RN Registered Nurse Neurology 3/13/17 Jacob Hernandez MD [address] [place] [address] Assigned Neuroscience Provider 07/27/20 [place] [address] [address] Assigned Musculoskeletal Provider 12/09/20 02/09/21 Luis Mock, PA-C [address] [address]68[address] Assigned Musculoskeletal Provider 02/10/21 08/08/22 Joanna Pulido MD [address] [place], [place] [address] Assigned Cancer Care Provider 04/28/21 04/24/23 documented as of this encounter
--- OUTSIDE RECORDS SUMMARY | 2024-02-02 11:46 | XMS_ITS | Encounter Summary ---
Author Name Unknown Organization [place] Address [address] [place] [address]. [place] [address] Care Team Providers Care Aircraft De Icer Installer Name Role Phone Dexter Sykes MD Unavailable [phone] Siva Hearn MD Unavailable [phone] Nikos Ventura Primary Care Provider Unavailabl Radha Luis RN Unavailable Unavailable Jacob Hernandez MD Unavailable [phone] Ronn Howard MD Unavailable [phone] [facility] Primary Care Provider Luis Mock PA-C Unavailable Joanna Pulido MD Unavailable [phone] Elissa Barnes Primary Care Provider Encounter Details Date Type Department Care Team (Late st Contact Info) Description 02/14/2019 Telephone [facility] [address],Clinic 1F 516 [facility] 88 [place], [place] [address] Jacob Hernandez MD 909 [place] [address] Social History Tobacco Use Types [...] encounter Miscellaneous Notes * Telephone Encounter - iNcolette Doshi RN - 02/14/2019 4:34 PM CDT [...] Description 4 8:00 AM CDT [facility] [address] [place] [address] Catarino Anderson MD [facility] [place] [address] [facility] [address] [place] [id number] 4 8:00 AM CDT - 4 8:55 AM CDT [facility] Services [address] [place] [address] Catarino Anderson [place] [facility] [place] [address] [facility] [address] [place] [address] ESOPHAGOGASTRODUODENOSCOPY Scheduled Procedures Name Priority Associated Diagnoses Date/Ti nm ESOPHAGOGASTRODUODENOSCOPY Dysphagia, unspecified type 02/15/2024 8:00 AM CDT documented as of this encounter Visit Diagnoses Not on filedocumented in this encounter Additional Health Concerns 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 Source: [facility]. 10/03/2019 documented as of this encounter Care Teams Aircraft De Icer Installer Relationship Specialty Start Date End Date Nikos Ventura [facility] [address] [address] PCP - General Family Practice 11/11/16 01/21/21 [facility] 1400 [place] [address] PCP - General 01/22/21 08/27/21 Elissa Barnes [address] [place] [address] PCP - General Physician Viticulture Teacher 08/28/21 Dexter Sykes MD [place] [address] [address] 09/15/16 Siva Hearn MD [facility] [address] [address] Neurology 09/15/16 Radha Espinoza, RN Registered Nurse Neurology 12/15/16 Jacob Hernandez MD 909 [place] [address] Assigned Neuroscience Provider 07/27/20 [place] [address] [address] Assigned Musculoskeletal Provider 12/09/20 02/09/21 Luis Mock, PA-C [address] [address] Assigned Musculoskeletal Provider 02/10/21 08/08/22 Joanna Pulido MD 909 [place] [address] Assigned Cancer Care Provider 04/28/21 04/24/23 documented as of this encounter
--- OUTSIDE RECORDS SUMMARY | 2024-02-02 11:46 | XMS_ITS | Encounter Summary ---
Author Name Unknown Organization [place] Address [address] [place] [address]. [place] [address] Care Team Providers Care Field Artillery Cannoneer Name Role Phone Dexter Sykes MD Unavailable [phone] Siva Hearn MD Unavailable [phone] Nikos Ventura Primary Care Provider Unavailabl Radha Luis RN Unavailable Unavailable Jacob Hernandez MD Unavailable [phone] Ronn Howard MD Unavailable [phone] [facility] Primary Care Provider Luis Mock PA-C Unavailable Joanna Pulido MD Unavailable [phone] Elissa Barnes Primary Care Provider Reason for Visit * Reason Onset Date Comments Orders 05/10/2020 infusion order Encounter Details Date Type Department Care Team (Late st Contact Info) Description 05/10/2020 Telephone [facility] Neurology 909 [facility] 3rd [place] [address] Jacob Hernandez MD [address] [place] [address] Orders (infusion order) Social History Tobacco [...] or 2 more infusions. Called Miryam at [facility] (phone:??[phone]; fax:??[phone]) and let her know that they can [...] Description 4 8:00 AM CDT Hospital Encounter [facility] [address] [place] [address] Catarino Anderson MD [facility] [address] [place] [address] 4 8:00 AM CDT - 4 8:55 AM CDT Surgery [facility] [address] [place] [address] Catarino Anderson MD [facility] [address] [place] [address] ESOPHAGOGASTRODUODENOSCOPY Scheduled Procedures Name Priority Associated Diagnoses Date/Ti vt ESOPHAGOGASTRODUODENOSCOPY Dysphagia, unspecified type 02/15/2024 8:00 AM CDT documented as of this encounter Visit Diagnoses Not on filedocumented in this encounter Additional Health Concerns 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 Source: [facility]. 10/03/2019 documented as of this encounter Care Teams Field Artillery Cannoneer Relationship Specialty Start Date End Date Nikos Ventura [place] [address] [address] PCP - General Family Practice 11/11/16 01/21/[address] [facility] 1400 [place] [address] PCP - General 01/22/21 08/27/21 Elissa Barnes 1400 [place] [address] PCP - General Physician Legislative Assistant 08/28/21 Dexter Sykes MD [place] [address] [address] 09/15/16 Siva Hearn MD [facility] [address] [address] Neurology 09/15/16 Radha Espinoza, GEOFF Registered Nurse Neurology 12/15/16 Jacob Hernandez MD [address] [place] [address] Assigned Neuroscience Provider 07/27/20 [place] [address] [address] Assigned Musculoskeletal Provider 12/09/20 02/09/21 Luis Mock, PA-C [address] [address] Assigned Musculoskeletal Provider 02/10/21 08/08/22 Joanna Pulido MD [address] [place] [address] Assigned Cancer Care Provider 04/28/21 04/24/23 documented as of this encounter
--- OUTSIDE RECORDS SUMMARY | 2024-02-02 11:46 | XMS_ITS | Encounter Summary ---
Author Name Unknown Organization [place] Address [address] [place] [address]. [place] [address] Care Team Providers Care Neuro Psych Sales Specialist Name Role Phone Dexter Sykes MD Unavailable [phone] Siva Hearn MD Unavailable [phone] Nikos Ventura Primary Care Provider Unavailabl Radha Luis RN Unavailable Unavailable Jacob Hernandez MD Unavailable [phone] Ronn Howard MD Unavailable [phone] [facility] Primary Care Provider Luis Mock PA-C Unavailable Joanna Pulido MD Unavailable [phone] Elissa Barnes Primary Care Provider Reason for Visit * Reason Onset Date Comments Call Back 11/30/2018 PICC for IVIG tr migue Encounter Details Date Type Department Care Team (Late st Contact Info) Description 11/30/2018 Telephone [facility] Neurology 909 [facility] 3rd [place] [address] Jacob Hernandez MD [address] [place] [address] Call Back (PICC for IVIG treatments) [...] proceed with the testing. Called and left [facility] for patient letting her know that Dr. Hernandze didn't order the GI procedures but that she should proceed with testing. Asked for a call back with questions. BOTOMY PROGRAM COORDINATOR * Telephone Encounter - Nicolette Doshi RN - 12/01/2018 1:41 PM CST Spoke with Thu at [facility]; who tells me that because [...] go and if problem persists, they will cachil dehe back with us and we can re-evaluate need. Called patient and discussed the plan above; patient is agreeable to the plan. OF NOTE: patient tells me she is scheduled for a esophagoscopy/gastroscopy/duodenoscopy on 12/[address] Beach. Patient is under the assumption that this is at Dr. Hernandez's recommendation. Dr. Hernandez, please let me know your thoughts. BOTOMY PROGRAM COORDINATOR * Telephone Encounter - Nicolette Doshi RN - 11/30/2018 11:[address] Hernandez, please see below. Assuming you do not want to move forward with a central line. Please advise. Also, have you reviewed GIs note? Is patient clear to proceed with rituximab? BOTOMY PROGRAM COORDINATOR * Telephone Encounter - Royal Shen - [...] routed to: [facility] BOTOMY PROGRAM COORDINATOR documented in this encounter Plan of Treatment Upcoming Encounters Date Type Department Care Team (Late st Contact Info) Description 4 8:00 AM CDT Hospital Encounter [facility] [address] [place] [address] Catarino Anderson MD [facility] [address] [place] [address] 4 8:00 AM CDT - 4 8:55 AM CDT Surgery [facility] [address] [place] [address] Catarino Anderson MD [facility] [address] [place] [address] ESOPHAGOGASTRODUODENOSCOPY Scheduled Procedures Name Priority Associated Diagnoses Date/Ti id ESOPHAGOGASTRODUODENOSCOPY Dysphagia, unspecified type 02/15/2024 8:00 AM CDT documented as of this encounter Visit Diagnoses Not on filedocumented in this encounter Additional Health Concerns 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 Source: [facility]. 10/03/2019 documented as of this encounter Care Teams Neuro Psych Sales Specialist Relationship Specialty Start Date End Date Nikos Ventura [facility] [address] [address] PCP - General Family Practice 11/11/16 01/21/21 [facility] 1400 [place] [address] PCP - General 01/22/21 08/27/21 Elissa Barnes 1400 [place] [address] PCP - General Physician Auto Service Instructor 08/28/21 Dexter Sykes MD [facility] NEUR[facility] E [address] [address] 09/15/16 Siva Hearn MD [place] [address] [address] Neurology 09/15/16 Radha Espinoza, GEOFF Registered Nurse Neurology 12/15/16 Jacob Hernandez MD 909 [place] [address] Assigned Neuroscience Provider 07/27/20 [place] [address] [address] Assigned Musculoskeletal Provider 12/09/20 02/09/21 NishLuis liu PA-C [address] [facility] [address] [place] [address] Assigned Musculoskeletal Provider 02/10/21 08/08/22 Joanna Pulido MD 909 [place], [place] [address] Assigned Cancer Care Provider 04/28/21 04/24/23 documented as of this encounter
--- OUTSIDE RECORDS SUMMARY | 2024-02-02 11:47 | XMS_ITS | Data Portability ---
Author Name Unknown Address [address] [place] [address] Phone [phone] Organization [facility] Address [address] [facility] [address] [place] [address] Care Team Providers Care Watershed Manager Name Role Phone VERÓNICA GANN Primary Care Provider Assessment No assessment recorded. Plan of Treatment Reminders Order Date Submit Date Provider Last Modified By Organization Details Last Modified Time Details Appointments None recorded. Lab urinalysis , dipstick 2021 022 [email or web address] [facility], [address] [place], [address], 10:29:58 culture, urine 2021 022 [facility], [address], [address], [place], [address], 11:33:08 Referral None recorded. Procedures None recorded. Surgeries None recorded. Imaging CT, abdomen + pelvis, w/o contrast 2021 022 [email or web address] [address] [facility], [address], [place], [address], 12:11:44 Medication Orders Myrbetriq 50 mg tablet,ext ended release 2021 022 [email or web address] [id number], [address], [place], [place], [id number], 10:47:47 Patient TargetsNo targets recorded. Patient InstructionsNo instructions recorded. Reason for Referral None Reported. Results Created Date Observation Date Name Description Value Unit Range Abnormal Flag LastModifiedBy Organization Detail LastModifiedTime 06/30/20 22 06/30/2022 URINE CULTU RE final report microb iology result s abnormal Not Available [facility] [address], [place], [address], 07/02/2022 11:33:08 06/30/20 22 06/30/2022 urina lysis , dipst ick pH-Status 6.5 Not Available [facility] [address], [place], [address], 06/30/2022 10:29:43 06/30/20 22 06/30/2022 urina lysis , dipst ick Leuko-Status Trace Not Available [facility] [address], [place], [address], 06/30/2022 10:29:43 07/01/20 22 06/30/2022 bladd er scan (PROC ) No observ ation record ed. BARCODE Not Available 07/01/2022 17:32:51 Result Notes None recorded. Procedures Surgical History Date Name Laterality Status Provider Name and Address Organization Details Recorded Time 2 Bladder Scan completed Rosaura kaufman [facility] 06/30/2022 10:29:37 1 colonoscopy completed Rosaura kaufman [facility] 06/30/2022 10:28:55 Imaging [...] Name and Address Organization Details Recorded Time 258328 Bactrim medicatio n Not available Not available Not available 06/30/2022 57420 9 RxNorm Rosaura kaufman [facility] 2 10:30:09 999312 adhesive environme nt,medica tion Not available Not available Not available 06/30/2022 [facility] 10:30:15 799234 aspirin medicatio n Not available Not available Not available 06/30/[address] [facility] 2 10:30:22 934567 Augmentin medicatio n Not available Not available Not available 06/30/2022 21402 2 RxNorm [facility] 10:30:29 876435 clavulani c acid Not available Not available Not available Not available 06/30/2022 22524 RxNorm Rosauracata Chisholm [facility] 2 10:30:39 173077 hydrocodo ne Not available Not available Not available Not available 06/30/2022 5489 RxNorm Rosauracata Chisholm [facility] 2 10:30:50 Medications Name Sig Start Date [...] AND AT TIME OF MRI NEEDED. HAVE HEAD OF QUALITY active Not Available Not Available No t [...] Updated DateTime 06/30/2022 172.72 cm 31.9 kg/m2 43752.4 g Rosaura kaufman [facility] 06/30/2022 10:28:15 Social History Question Answer Notes LastModified by Organizat ion Details LastModified Time Tobacco Smoking Status Former Smoker Rosaura kaufman [facility] 06/30/2022 10:28:43 When [...] br east cancer Medical History Condition Response Diabetes N High Blood Pressure Y Gynecological History Statement/Question Response Sexually Active? N Obstetrics History GPAL:G 1 P 0 0 0 0 Past Encounters Encounter ID Performer Location Encounter Start Date Encounter Closed Date Diagnosis/Indication Diagnosis SNOMED-CT Code [id number] Chuckie Coronado MD [facility] [address] [place] [address] 06/30/2022 10:11:25 07/04/2022 13:32:11 Urgent desire to urinate 70468438 Recurrent urinary tract infection 271969475 Health Concerns Section Related Observation LastModified by Organization Detai ls LastModified Time None Recorded Concern Status LastModified by Organization Details LastModified Time None Recorded Advance Directives Directive None Recorded Payers Encounter Date Sequence Insurance Name Policy Number Policy Landeros Covered Member ID Landeros Member ID Guarantor Name 06/30/2022 1 UC[employer] - DOS ON OR AFTER 19 (MEDICARE REPLACEMENT/ ADVANTAGE - HMO) [id number] Cathy Raymond [id number] Cathy Raymond Notes Date Note Type Note [...] 19 mL Chuckie Coronado MD [address] [place], [address], [facility] 07/01/2022 16:21:34 OBGyn Episode No OBEpisode recorded.
--- OUTSIDE RECORDS SUMMARY | 2024-02-02 11:47 | XMS_ITS | Encounter Summary ---
Author Name Unknown Organization [place] Address [address] [place] [address]. [place] [address] Care Team Providers Care Blender Name Role Phone Dexter Sykes MD Unavailable [phone] Siva Hearn MD Unavailable [phone] Nikos Ventura Primary Care Provider Unavailabl Radha Luis RN Unavailable Unavailable Jacob Hernandez MD Unavailable [phone] Ronn Howard MD Unavailable [phone] [facility] Primary Care Provider Luis Mock PA-C Unavailable [phone] Joanna Pulido MD Unavailable [phone] Elissa Barnes Primary Care Provider Encounter Details Date Type Department Care Team (Late st Contact Info) Description 01/30/2017 MyC Medical Advice M [facility] General Surgery 9[address] [facility] 4th [place] [address] Chantel [place] Social History Tobacco Use Types Packs/Day Years [...] Description 4 8:00 AM CDT Hospital Encounter [facility] [address] [place] [address] Catarino Anderson MD [facility] [address] [place] [address] 4 8:00 AM CDT - 4 8:[address] 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 Source: [facility]. 10/03/2019 documented as of this encounter Care Teams Blender Relationship Specialty Start Date End Date Nikos Ventura [place] [address] [address] PCP - General Family Practice 11/11/16 01/21/21 [facility] 1400 [place] [address] PCP - General 01/22/21 08/27/21 Elissa Barnes [address] [place] [address] PCP - General Physician Electrician Master 08/28/21 Dexter Sykes MD [place] [address] [address] 09/15/16 Siva Hearn MD [facility] [address] [address] Neurology 09/15/16 Radha Espinoza, GEOFF Registered Nurse Neurology 12/15/16 Jacob Hernandez MD [address] [place] [address] Assigned Neuroscience Provider 07/27/20 [place] [address] [address] Assigned Musculoskeletal Provider 12/09/20 02/09/21 Luis Mock, PA-C [address] [address] Assigned Musculoskeletal Provider 02/10/21 08/08/22 Joanna Pulido MD [address] [place] [address] Assigned Cancer Care Provider 04/28/21 04/24/23 documented as of this encounter
--- OUTSIDE RECORDS SUMMARY | 2024-02-02 11:47 | XMS_ITS | Encounter Summary ---
Author Name Unknown Organization [place] Address [address] [place] [address]. [place] [address] Care Team Providers Care Assistant Banquet Manager Name Role Phone Dexter Sykes MD Unavailable [phone] Siva Hearn MD Unavailable [phone] Nikos Ventura Primary Care Provider Unavailabl Radha Luis RN Unavailable Unavailable Jacob Hernandez MD Unavailable [phone] Ronn Howard MD Unavailable [phone] [facility] Primary Care Provider Luis Mock PA-C Unavailable [phone] Joanna Pulido MD Unavailable [phone] Elissa Barnes Primary Care Provider Reason for Visit * Reason Onset Date Comments Referral 09/17/2018 denying GI refer ral Encounter Details Date Type Department Care Team ([facility] st Contact Info) Description 09/17/2018 Telephone [facility] Neurology [address] [facility] 3rd [place] [address] Jacob Hernandez MD [address] [place] [address] Referral (denying GI referral) Social History [...] 10:36 AM CST GI referral faxed to [facility] (phone: [phone]; fax: [phone]). TICS SHEET FINISHING PRESS OPERATOR * Telephone Encounter - Yanely Perez - 09/20/2018 2:54 PM CST [facility] Phone Message May a detailed message be left on voicemail: yes Reason for Call: Other: Pts Ed calling to say that they would need to go to a GI clinic as close to [place] as possible due to the fact that pt broke her femur and she'll be in rehab for awhile. Action Taken: Message routed to: [facility] NEUROLOGY TICS SHEET FINISHING PRESS OPERATOR * Telephone Encounter - Nicolette Doshi RN - 09/20/2018 12:20 PM CST Called and left a M for patient requesting a call back to discuss where she would like the referral sent. This will most likely need to be [place] [facility] TICS SHEET FINISHING PRESS OPERATOR * Telephone Encounter - Joanie Fam - [...] to: [facility] Neurology TICS SHEET FINISHING PRESS OPERATOR documented in this encounter Plan of Treatment Upcoming Encounters Date Type Department Care Team (Late st Contact Info) Description 4 8:00 AM CDT Hospital Encounter [facility] PeriOp Services [address] [place] [address] Catarino Anderson MD [facility] [address] [place] [address] 4 8:00 AM CDT - 4 8:55 AM CDT [facility] [address] [place] [address] Catarino Anderson MD [facility] [address] [place] [address] ESOPHAGOGASTRODUODENOSCOPY Scheduled Procedures Name Priority Associated Diagnoses Date/Ti al ESOPHAGOGASTRODUODENOSCOPY Dysphagia, unspecified type 02/15/2024 8:00 AM CDT documented as of this encounter Visit Diagnoses Not on filedocumented in this encounter Additional Health Concerns 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 Source: [facility]. 10/03/2019 documented as of this encounter Care Teams Assistant Banquet Manager Relationship Specialty Start Date End Date Nikos Ventura [facility] [address] [place] [address] PCP - General Family Practice 11/11/16 01/21/21 [facility] [address] [place] [address] PCP - General 01/22/21 08/27/21 Elissa Barnes [address] [place] [address] PCP - General Physician Diploma Maker 08/28/21 Dexter Sykes MD [facility] NE[facility] [address] [address] 09/15/16 Siva Hearn MD [facility] [address] [address] Neurology 09/15/16 Radha Espinoza, GEOFF Registered Nurse Neurology 12/15/16 Jacob Hernandez MD [address] [place] [address] Assigned Neuroscience Provider 07/27/20 Ronn [place] [address] [place] [address] Assigned Musculoskeletal Provider 12/09/20 02/09/21 Luis Mock, PA-C [address] [place] [address] Assigned Musculoskeletal Provider 02/10/21 08/08/22 Joanna Pulido MD [address] [place] [address] Assigned Cancer Care Provider 04/28/21 04/24/23 documented as of this encounter
--- OUTSIDE RECORDS SUMMARY | 2024-02-02 11:47 | XMS_ITS | Encounter Summary ---
Author Name Unknown Organization [facility] Address [address] [place] [address]. [place] [address] Care Team Providers Care Photogrammetric Engineer Name Role Phone Dexter Sykes MD Unavailable [phone] Siva Hearn MD Unavailable [phone] Nikos Ventura Primary Care Provider Unavailabl Radha Luis RN Unavailable Unavailable Jacob Hernandez MD Unavailable [phone] Ronn Howard MD Unavailable [phone] [facility] Primary Care Provider Luis Mock PA-C Unavailable [phone] Joanna Pulido MD Unavailable [phone] Elissa Barnes Primary Care Provider [phone] Encounter Details Date Type Department Care Team (Late st Contact Info) Description 02/05/2017 [facility] [facility] Neurology [address] [address] Radha Espinoza, RN Social History [...] Description 4 8:00 AM CDT Hospital Encounter [facility] PeriOp Services [address] [place] [address] Catarino Anderson MD [facility] [address] [place] [address] 4 8:00 AM CDT - 4 8:55 AM CDT Surgery [facility] Services [address] [place] [address] Catarino Anderson MD [facility] [address] [place] [address] ESOPHAGOGASTRODUODENOSCOPY Scheduled Procedures Name Priority Associated Diagnoses Date/Ti sc ESOPHAGOGASTRODUODENOSCOPY Dysphagia, unspecified type 02/15/2024 8:00 AM CDT documented as of this encounter Visit Diagnoses Not on filedocumented in this encounter Additional Health Concerns 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 Source: [facility]. 10/03/2019 documented as of this encounter Care Teams Photogrammetric Engineer Relationship Specialty Start Date End Date Nikos Ventura [place] [address] [address] PCP - General Family Practice 11/11/16 01/21/21 [facility] [address] [place] [address] PCP - General 01/22/21 08/27/21 Elissa Barnes [address] [place] [address] PCP - General Physician Remediation Project Engineer 08/28/21 Dexter Sykes MD [place] [address] [address] 09/15/16 Siva Hearn MD [facility] [address] [address] Neurology 09/15/16 Radha Espinoza, GEOFF Registered Nurse Neurology 12/15/16 Jacob Hernandez MD [address] [place] [address] Assigned Neuroscience Provider 07/27/20 [place] [address] [address] Assigned Musculoskeletal Provider 12/09/20 02/09/21 Luis Mock, PA-C [id number] [address] Assigned Musculoskeletal Provider 02/10/21 08/08/22 Joanna Pulido MD [address] [place] [address] Assigned Cancer Care Provider 04/28/21 04/24/23 documented as of this encounter
--- OUTSIDE RECORDS SUMMARY | 2024-02-02 11:47 | XMS_ITS | Encounter Summary ---
Author Name Unknown Organization [facility] Address [address] [place] [address]. [place] [address] Care Team Providers Care Potato Spotter Name Role Phone Dexter Sykes MD Unavailable [phone] Siva Hearn MD Unavailable [phone] Nikos Ventura Primary Care Provider Unavailabl Radha Luis RN Unavailable Unavailable Jacob Hernandez MD Unavailable [phone] Ronn Howard MD Unavailable [phone] [facility] Primary Care Provider Luis Mock PA-C Unavailable [phone] Joanna Pulido MD Unavailable [phone] Elissa Barnes Primary Care Provider [phone] Encounter Details Date Type Department Care Team (Late st Contact Info) Description 02/11/2017 [facility] [place] [facility] [address] [place] [address] Joanna Pulido MD [address] [place] [address] Social History Tobacco Use Types Packs/Day [...] Description 4 8:00 AM CDT Hospital Encounter [facility] PeriOp Services [address] [place] [address] Catarino Anderson MD [facility] [address] [place] [address] 4 8:00 AM CDT - 4 8:55 AM CDT [facility] [address] [place] [address] Catarino Anderson MD [facility] [address] [place] [address] ESOPHAGOGASTRODUODENOSCOPY Scheduled Procedures Name Priority Associated Diagnoses Date/Ti me ESOPHAGOGASTRODUODENOSCOPY Dysphagia, unspecified type 02/15/2024 8:00 AM CDT documented as of this encounter Visit Diagnoses Not on filedocumented in this encounter Additional Health Concerns 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 Source: [facility]. 10/03/2019 documented as of this encounter Care Teams Potato Spotter Relationship Specialty Start Date End Date Nikos Ventura [facility] [address] [facility] [address] [place] [address] PCP - General Family Practice 11/11/16 01/21/21 [facility] [place] [facility] [address] [place] [address] PCP - General 01/22/21 08/27/21 Elissa Barnes [address] [place] [address] PCP - General Physician Flower Planter 08/28/21 Dexter Sykes MD [facility] NEUROLOGY [facility] [address] [address] 09/15/16 Siva Hearn MD [facility] NEUROLOGY [facility] [address] [address] Neurology 09/15/16 Radha Espinoza, GEOFF Registered Nurse Neurology 12/15/16 Jacob Hernandez MD [address] [place] [address] Assigned Neuroscience Provider 07/27/20 Ronn [place] [id number] [place] [address] Assigned Musculoskeletal Provider 12/09/20 02/09/21 Luis Mock, PAMagnoliaC [address] [address] Assigned Musculoskeletal Provider 02/10/21 08/08/22 Joanna Pulido MD [address] [place] [address] Assigned Cancer Care Provider 04/28/21 04/24/23 documented as of this encounter
--- OUTSIDE RECORDS SUMMARY | 2024-02-02 11:47 | XMS_ITS | Encounter Summary ---
Author Name Unknown Organization [facility] Address [address] [place] [address]. [place] [address] Care Team Providers Care Painter Drum Name Role Phone Dexter Sykes MD Unavailable [phone] Siva Hearn MD Unavailable [phone] Nikos Ventura Primary Care Provider Unavailabl Radha Luis RN Unavailable Unavailable Jacob Hernandez MD Unavailable [phone] Ronn Howard MD Unavailable [phone] [place] [address] Primary Care Provider Luis Mock PA-C Unavailable [phone] Joanna Pulido MD Unavailable [phone] Elissa Barnes Primary Care Provider Reason for Referral * Consultation - Closed Specialty Diagnoses / Procedures Referred By Yulissa wayne Referred To Contact Diagnoses Hepatitis B infection Jacob Hernandez MD [address] [place] [address] Referral ID Status Reason Start Date Expiration Date Visits Re quested Visits Authorized [id number] Closed 09/15/2018 09/15/2019 1 1 Question Answer Reason for Consult Other (Specify in Comments) Comments see GI for antiviral therapy prior to rituximab initiation. Preferred Location: [facility] Please be aware that coverage of these services is subject to the terms and limitations of your health insurance plan. Call member services at your health plan with any benefit or coverage questions. Any procedures must be performed at a [facility] facility OR coordinated by your clinic's referral office. Please bring the following with you to your appointment: (1) Any X-Rays, CTs or MRIs which have been performed. Contact the facility where they were done to arrange for sweet pickle maker prior to your scheduled appointment. (2) List of current medications (3) This referral request (4) Any documents/labs given to you for this referral UREMENT COORDINATOR Reason for Visit * Reason Onset Date Comments Call Back 09/08/2018 Labs Encounter Details Date Type Department Care Team ([facility] st Contact Info) Description 09/08/2018 Telephone [facility] Neurology [address] [place] [address] Jacob Hernandez MD [address] [place] [address] Call Back (Labs) Social History Tobacco [...] She would like lab orders faxed to [facility] (phone: [phone]; fax: [phone]). This has been done. Patient plans to get labs done 09/09. UREMENT COORDINATOR * Telephone Encounter - Royal Shen - 09/08/2018 11:08 AM CST [facility] Call Center Phone Message May a detailed message be left on voicemail: no Reason for Call: Other: Pt is returning Nicolette's call about completing labs that were ordered for her to do. Please call her back. Action Taken: Message routed to: [facility] NEUROLOGY ADULT [facility] UREMENT COORDINATOR * Telephone Encounter - Nicolette Doshi RN - 09/08/2018 11:08 AM CST Unfortunately, Cathy's labs came back positive for Hepatitis B. Per Dr. Hernandez, she will need a GIreferral to be cleared to start Rituximab. Referral placed on behalf of Dr. Hernandez. Called patient and she would like th referral sent to [facility] (phone: [phone]; fax: [phone]). This has been done. UREMENT COORDINATOR documented in this encounter Plan of Treatment Upcoming Encounters Date Type Department Care Team (Late st Contact Info) Description 4 8:00 AM CDT [facility] [address] [place] [address] Catarino Anderson MD [facility] [address] [place] [address] 4 8:00 AM CDT - 4 8:55 AM CDT Surgery [facility] PeriOp Services [address] [place] [address] Catarino Anderson MD [facility] [address] [place] [address] ESOPHAGOGASTRODUODENOSCOPY Scheduled Procedures Name Priority Associated Diagnoses Date/Ti me ESOPHAGOGASTRODUODENOSCOPY Dysphagia, unspecified type 02/15/2024 8:00 AM CDT Scheduled Referrals Name Type Priority Associated Diagnoses Orde r Schedule GASTROENTEROLOGY ADULT REF CONSULT ONLY Referral Routine Hepatitis B infection Ordered: 09/15/2018 documented as of this encounter Visit Diagnoses Diagnosis Hepatitis B infection- Primary Viral hepatitis B without mention of hepatic coma, acute or unspecified, without mention of hepatitis delta Dysphagia, unspecified type documented in this encounter Additional Health Concerns 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 Source: [facility] [facility]. 10/03/2019 documented as of this encounter Care Teams Painter Drum Relationship Specialty Start Date End Date Nikos Ventura [place] [address] [address] PCP - General Family Practice 11/11/16 01/21/[address] [address] PCP - General 01/22/21 08/27/21 Elissa Barnes [address] [place] [address] PCP - General Physician Director Electronics 08/28/21 Dexter Sykes MD [address] [address] 09/15/16 Siva Hearn MD [place] [address] [address] Neurology 09/15/16 Radha Espinoza, RN Registered Nurse Neurology 12/15/16 Jacob Hernandez MD [address] [place] [address] Assigned Neuroscience Provider 07/27/20 [place] [address] [address] Assigned Musculoskeletal Provider 12/09/20 02/09/21 Luis Mock, PAMagnoliaC [address] [address] Assigned Musculoskeletal Provider 02/10/21 08/08/22 Joanna Pulido MD [address] [place] [address] Assigned Cancer Care Provider 04/28/21 04/24/23 documented as of this encounter
--- OUTSIDE RECORDS SUMMARY | 2024-02-02 11:47 | XMS_ITS | Encounter Summary ---
Author Name Unknown Organization [facility] Address [address] [place] [address]. [place] [address] Care Team Providers Care Prosthetic Dentist Name Role Phone Dexter Sykes MD Unavailable [phone] Siva Hearn MD Unavailable [phone] Nikos Ventura Primary Care Provider Unavailabl Radha Luis RN Unavailable Unavailable Jacob Hernandez MD Unavailable [phone] Ronn Howard MD Unavailable [phone] [facility] Primary Care Provider Luis Mock PA-C Unavailable [phone] Joanna Pulido MD Unavailable [phone] Elissa Barnes Primary Care Provider Reason for Visit * Reason Onset Date Comments Patient/info Update 09/23/2018 Pt is in LTC Facility due to broken femur Call Back 09/23/2018 Encounter Details Date Type Department Care Team ([facility] st Contact Info) Description 09/23/2018 Telephone [facility] Neurology 909 [facility] [address] [place] [address] Jacob Hernandez MD [address] [place] [address] Patient/info Update (Pt is in [...] Ed know the November appointment was cancelled. OILER * Telephone Encounter - Joanie Fam - [...] to: [facility] Neurology OILER * Telephone Encounter - Nicolette Doshi RN - 09/30/2018 2:55 PM CST Called to schedule patient appointment at [facility] in [place]. Patient already had an appointment set up for 11/23/18 but we need it sooner than that. They are able to see her 10/11/18 at 1:10p at their [place] location. I have rescheduled the patient for this. I called GINNY Carolina at [facility] (phone: [phone]) and she will work on setting up a transportation ride. I also called patient's Ed and made him aware of this by leaving a [facility]. OILER * Telephone Encounter - Cathie Lynn - 09/29/2018 4:05 PM CST [facility] Phone Message May a detailed message be left on voicemail: yes Reason for Call: Other: Ed called in, said he was returning Nicolette's call. Please give him another call back. Action Taken: Message routed to: [facility] ([facility]): Neurology OILER * Telephone Encounter - Nicolette Doshi RN - 09/29/2018 2:53 PM CST Called and left a VMM for social secretary at [facility] requesting a call back to discuss coordinating GI appointment and wheelchair transport. Also called patient's , Ed and urged him to contact [facility] in [place] to set up an appointment so we can work on scheduling transport. Asked for a call back with questions. OILER * Telephone Encounter - Nicolette Doshi RN - 09/27/2018 9:59 AM CST Called and left another VMM for Ruchi asking for a call back linda to discuss setting up a GI appointment and transportation. OILER * Telephone Encounter - Nicolette Doshi RN - 09/24/2018 2:42 PM CST Called and spoke with Cathy. She is residing at [facility] recovering from surgery to repair a fractured femur. She is non-weight bearing for about 6 weeks. She tells me it will be very difficult to get to a GI appointment. She is open to doing this if the care facility will help coordinate a wheelchair transportation ride. I called the care facility (phone: [phone]) and left a VMM for Shebly requesting a call back to discuss this. OILER * Telephone Encounter - Royal Shen - 09/23/2018 3:[address] [facility] Call Center Phone Message May a detailed message be left on voicemail: no Reason for Call: Other: Pt's Jai called to speak with Nicolette; he said the Pt is in a senior living care facility due to breaking her femur and recovering there right now. Dr. Hernandez referred her to a gastro provider but she won't be able to do this for some time. Please call him with any questions/concerns. Action Taken: Message routed to: [facility] ([facility] NEUROLOGY ADULT CSC OILER documented in this encounter Plan of Treatment Upcoming Encounters Date Type Department Care Team (Late st Contact Info) Description 4 8:00 AM CDT Hospital Encounter [facility] PeriOp Services [address] [place] [address] Catarino Anderson MD [facility] [address] [place] [address] 4 8:00 AM CDT - 4 8:55 AM CDT Surgery [facility] Services [address] [place] [address] Catarino Anderson MD [facility] [address] [place] [address] ESOPHAGOGASTRODUODENOSCOPY Scheduled Procedures Name Priority Associated Diagnoses Date/Ti mo ESOPHAGOGASTRODUODENOSCOPY Dysphagia, unspecified type 02/15/2024 8:00 AM CDT documented as of this encounter Visit Diagnoses Not on filedocumented in this encounter Additional Health Concerns 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 Source: [employer] [facility]. 10/03/2019 documented as of this encounter Care Teams Prosthetic Dentist Relationship Specialty Start Date End Date Nikos Ventura [facility] [address] [place] [address] [place] [address] PCP - General Family Practice 11/11/16 01/21/21 [facility] [address] [place] [address] PCP - General 01/22/21 08/27/21 Elissa Barnes [address] [place] [address] PCP - General Physician Invoice Machine Operator 08/28/21 Dexter Sykes MD [facility] NE[facility] E [address] [address] 09/15/16 Siva Hearn MD [facility] NEUROLOG[facility] E [address] [address] Neurology 09/15/16 Radha Espinoza, RN Registered Nurse Neurology 12/15/16 Jacob Hernandez MD [address] [place] [address] Assigned Neuroscience Provider 07/27/20 Ronn [place] [address] [place] [address] [address] [place] [address] Assigned Musculoskeletal Provider 12/09/20 02/09/21 Luis Mock PAMagnoliaC [address] [facility] [address] [place] [address] Assigned Musculoskeletal Provider 02/10/21 08/08/22 Joanna Pulido MD [address] [place] [address] Assigned Cancer Care Provider 04/28/21 04/24/23 documented as of this encounter
--- NOTE | 2024-02-02 11:49 | ED_ITS ---
HPI - General Adult General Date Seen: 02/02/24 Chief complaint: Extremity Pain/Injury, Lower Stated complaint: knee pain Time Seen by Provider: 02/02/24 10:52 Source: patient, EMS, RN notes reviewed and old records reviewed Mode of arrival: EMS Limitations: no limitations History of Present Illness HPI narrative: Patient is a 58-year-old woman with complicated past medical history including cirrhosis secondary to alcohol use, lives at home with her . She reports that she has been feeling weak for the past week or 2, more so than usual. This is generalized weakness. Today, she says she lost her balance a little bit and stumbled in the bathroom. She says she twisted her right knee and has had severe pain in the knee since then, unable to bear weight. Arrives via EMS. Brook ayoub has cirrhosis with ascites, denies prior paracentesis, did develop some abdominal pain a few days ago which has been mild. Denies nausea or vomiting. She denies black or bloody stools. Denies history of previous GI bleeding. She is not anticoagulated. She denies actually falling, no head or neck pain. She has multiple wounds on her legs which have various levels of dressings applied to them, she says she is not currently under the care of anyone for her chronic wounds. She has chronic lymphedema as well. Her temperature at home was 99.9 she says, she is not aware of any temperatures higher than that. She denies chest pain or difficulty breathing. Related Data Home Medications Medication Instructions Recorded Confirmed acyclovir 800 mg tablet 800 mg PO 06/20/23 06/20/23 alendronate 70 mg tablet 70 mg PO .weekly 06/20/23 02/02/24 carboxymethylcellulose sodium 0.5 2 drp ophthalmic (eye) DAILY PRN 06/20/23 02/02/24 % eye drops cetirizine 10 mg tablet 10 mg PO DAILY 06/20/23 02/02/24 citalopram 20 mg tablet 20 mg PO DAILY 06/20/23 02/02/24 cyanocobalamin (vitamin B-12) 1,000 mcg IM MONTHLY 06/20/23 02/02/24 1,000 mcg/mL injection solution furosemide 20 mg tablet 20 mg PO DAILY 06/20/23 02/02/24 gabapentin 600 mg tablet 1,200 mg PO Q8H 06/20/23 02/02/24 levothyroxine 50 mcg tablet 50 mcg PO DAILY 06/20/23 02/02/24 lidocaine 5 % topical patch 1 patch topical DAILY 06/20/23 02/02/24 mirabegron 25 mg tablet,extended 25 mg PO DAILY 06/20/23 06/20/23 release 24 hr (Myrbetriq) oxybutynin chloride 10 mg 10 mg PO DAILY 06/20/23 02/02/24 tablet,extended release 24 hr pantoprazole 40 mg tablet,delayed 40 mg PO DAILY 06/20/23 02/02/24 release pramipexole 0.5 mg tablet 0.5 mg PO DAILY 06/20/23 02/02/24 spironolactone 50 mg tablet 50 mg PO BID 06/20/23 02/02/24 thiamine HCl (vitamin B1) 100 mg 100 mg PO DAILY 06/20/23 02/02/24 tablet trazodone 100 mg tablet 100 mg PO QPM 06/20/23 02/02/24 Previous Rx's Medication Instructions Recorded cephalexin 500 mg capsule 500 mg PO TID #15 caps 10/16/23 potassium chloride 20 mEq 20 meq PO BID #10 tabs 11/26/23 tablet,extended release Allergies Allergy/AdvReac Type Severity Reaction Status Date / Time acetaminophen [From Vicodin] Allergy Verified 02/02/24 10:49 amoxicillin [From Augmentin] Allergy Verified 06/20/23 08:46 clavulanic acid Allergy Verified 06/20/23 08:46 [From Augmentin] hydrocodone [From Vicodin] Allergy Verified 02/02/24 10:49 naproxen Allergy Verified 06/20/23 08:46 [From Flanax (naproxen)] Review of Systems Status of ROS: Reports: 10 or more systems reviewed and unremarkable except as noted in History and below [facility] Social History Smoking Status: Never smoker How often do you have a drink containing alcohol: never AUDIT-C Alcohol total score: 0 Non-prescribed substance use: denies use Exam Narrative: Exam Narrative: Vital signs as noted above. In general, an alert, chronically ill-appearing woman. Head: Normocephalic, atraumatic. Eyes: Pupils are equal reactive. Extraocular movements are full. No significant scleral icterus. ENT: Mucous membranes are dry. Neck: Supple without lymphadenopathy. Heart: Regular rate and rhythm. No murmur or rub. Lungs: Clear bilaterally. No increased work of breathing, crackles or wheezes. Abdomen: Significantly distended, likely consistent with ascites. Nontender to palpation. Exam otherwise limited by body habitus. Extremities: The right leg is held flexed at the hip and the knee, propped up on a pillow. There is an effusion palpable over the knee, she has a well-healed incision. There is no erythema or warmth. She has tenderness over the hip as well although she notes that that is less so and says it is always sore there. The thigh is also tender to palpation, edematous. Distally, there is a superficial blister and ulceration, the foot is erythematous and edematous. On the left, there is diffuse edema as well. There is a bandage over a couple of areas, this will need to be removed for evaluation. Neurologic: Patient is alert and oriented to person and place. Speech is fluent. Face is symmetric. Moves all extremities equally. Affect: Normal. Skin: Warm and dry. Well perfused. Pallor. Const: Vital Signs, click to edit/add: Vital Signs - 24 hr 02/02/24 10:40 02/02/24 11:11 02/02/24 11:13 Temperature 98.9 F Pulse Rate 93 Pulse Rate [Right Radial] 90 Respiratory Rate 20 Blood Pressure Blood Pressure [Le ft Upper Arm] 130/81 Pulse Oximetry 96 97 98 [facility] 02/02/24 11:15 02/02/24 11:19 02/02/24 11:30 Temperature Pulse Rate 91 96 93 Pulse Rate [Right Radial] Respiratory Rate Blood Pressure 111/76 Blood Pressure [Le ft Upper Arm] Pulse Oximetry 99 99 98 Oxygen Delivery Vt thod 02/02/24 11:31 02/02/24 11:45 02/02/24 12:00 Temperature Pulse Rate 93 89 87 Pulse Rate [Right Radial] Respiratory Rate Blood Pressure 117/82 Blood Pressure [Le ft Upper Arm] Pulse Oximetry 100 98 98 [facility] 02/02/24 12:01 02/02/24 12:30 02/02/24 12:31 Temperature Pulse Rate 89 93 90 Pulse Rate [Right Radial] Respiratory Rate Blood Pressure 111/72 119/78 Blood Pressure [Le ft Upper Arm] Pulse Oximetry 98 96 99 Oxygen Delivery Me thod Documenting provider has reviewed patient's vital signs: yes Course Course ED Course: An IV was placed, I ordered morphine IV as well as some Zofran. I ordered initially x-rays of the right knee, which show a TKA, the knee itself looks normal but there is a partially visualized femur fracture. I have ordered a dedicated femur films but these are pending. X-rays show a midshaft femur fracture with extension down toward the prosthesis of the knee. I reviewed x-rays with our orthopedic surgeon on-call, he recommends transfer for management and a trauma center. I did do a wound culture from the blister on the right foot, which when palpated expressed some purulent fluid. Patient says this was looked at yesterday but antibiotics were not started. She does have significant surrounding erythema, and I think at this point antibiotics are appropriate. Blood cultures were done as well on her arrival. Labs are notable for normal white blood cell count of 9.8, hemoglobin of 11.2, left shift with 84% neutrophils. Sed rate elevated at 31 INR is elevated at 1.3, presumably related to her liver disease. Venous gas shows a respiratory alkalosis with a pCO2 of 34, pH is 7.51. Bicarb is 27. Metabolic panel fairly unremarkable, sodium is 132 otherwise normal. Creatinine is 0.5. Lactate mildly elevated at 2, total bilirubin is 1.9, direct 0.5, AST 48 ALT of 23 alk-phos of 125. CRP elevated at 5.7. Lipase is normal. Blood alcohol is negative. Point of care troponin 0.01. EKG showed a normal sinus rhythm, ventricular rate of 88 beats per minute. Small voltages, unremarkable T-waves, no acute ST segment changes. She had additional Dilaudid for pain management. I have ordered Ancef 2 g IV. Previous surgery done at [facility], but no bed availability at present. Patient is accepted at [facility] [place] for transfer. Vital Signs Vital signs: Initial Vital Signs Temperature 98.9 F 02/02/24 10:40 Temperature Source Temporal Artery Scan 02/02/24 10:40 Pulse Rate 90 02/02/24 10:40 Respiratory Rate 20 02/02/24 10:40 Blood Pressure 130/81 02/02/24 10:40 Blood Pressure Mean 97 02/02/24 10:40 Blood Pressure Position Semi-Fowlers 02/02/24 10:40 Pulse Oximetry 96 02/02/24 10:40 Oxygen Delivery Method Room Air 02/02/24 10:40 Vital Signs Temperature 98.9 F 02/02/24 10:40 Pulse Rate 90 02/02/24 10:40 Respiratory Rate 20 02/02/24 10:40 Blood Pressure 130/81 02/02/24 10:40 Pulse Oximetry 96 02/02/24 10:40 Oxygen Delivery Method Room Air 02/02/24 10:40 Temperature 98.9 F 02/02/24 10:40 Pulse Rate 90 02/02/24 12:31 Respiratory Rate 20 02/02/24 10:40 Blood Pressure 119/78 02/02/24 12:31 Pulse Oximetry 99 02/02/24 12:31 Oxygen Delivery Method Room Air 02/02/24 10:40 Medications Administered Medications: Discontinued Medications Generic Name Dose Route Start Last Admin Trade Name Olayinkaq PRN Reason Stop Dose Admin Hydromorphone HCl 0.5 mg 02/02/24 12:37 02/02/24 12:45 Hydromorphone 0.5 Mg/0.5 Ml Inj IVP 02/02/24 12:38 0.5 mg ONCE ONE Administration Morphine Sulfate 4 mg 02/02/24 11:12 02/02/24 12:04 Morphine 4 Mg/Ml Inj IVP 02/02/24 11:13 4 mg ONCE ONE Administration Ondansetron HCl 4 mg 02/02/24 11:12 02/02/24 12:04 Ondansetron 2 Mg/Ml Inj IVP 02/02/24 11:13 4 mg ONCE ONE Administration Medical Decision Making Lab Data Labs: Lab Results 02/02/24 02/02/24 Range/Units 11:05 11:15 WBC 9.76 (4.50-11.00) K/uL RBC 3.66 L (4.00-5.20) m/uL Hgb 11.2 L (12.0-16.0) gm/dL Hct 33.8 (33.0-51.0) % MCV 92 (80-100) fL MCH 31 (26-34) pg MCHC 33 (32-36) gm/dL RDW Coeff of Kay 13.4 (11.5-15.5) % Plt Count 230 (140-440) K/uL Neut % (Auto) 83.9 H (42.0-72.0) % Lymph % (Auto) 8.4 L (20-44) % [place] % (Auto) 7.2 (0.0-11.0) % Eos % (Auto) 0.1 (0.0-7.0) % Baso % (Auto) 0.2 (0.0-3.0) % Neut # (Auto) 8.20 H (1.7-7.0) K/uL Lymph # (Auto) 0.80 L (0.90-2.90) K/uL [place] # (Auto) 0.70 (0.00-0.90) K/UL Eos # (Auto) 0.01 (0.00-0.50) K/uL Baso # (Auto) 0.02 (0.00-0.30) K/uL Abs Immat Gran (auto) 0.02 (0.00-0.30) K/uL Imm/Tot Granulo (auto) 0.2 % ESR 31 H (2-20) mm/hr INR 1.29 H (0.91-1.10) VBG pH 7.510 H (7.32-7.43) VBG pCO2 34 L (40-50) mmHG VBG pO2 < 30.1 (25-47) mmHG VBG HCO3 27 (21-28) mmol/L Sodium 132 L (135-149) mmol/L Potassium 3.9 (3.6-5.1) mmol/L Chloride 99 (96-114) mmol/L Carbon Dioxide 25 (20-32) mmol/L Anion Gap 8 (7-15) mEq/L BUN 10 (7-30) mg/dL Creatinine 0.5 (0.5-1.5) mg/dL Estimated Creat Clear 122.21 Estimated GFR 108 ml/min Glucose 95 (60-115) mg/dL Lactate 2.0 H (0.5-1.9) mmol/L Calcium 8.1 L (8.4-10.6) mg/dL Total Bilirubin 1.9 H (0.1-1.5) mg/dL Direct Bilirubin 0.5 (0.0-0.5) mg/dL AST 48 H (12-35) U/L ALT 23 (4-35) U/L Alkaline Phosphatase 125 (40-150) U/L C-Reactive Protein 5.7 H (0.5-1.0) mg/dL Total Protein 6.5 (6.0-8.3) g/dL Albumin 2.7 L (3.3-5.0) g/dL Lipase 62 (23-300) U/L Ethyl Alcohol < 0.01 L (0.01-0.03) % POC Troponin I 0.01 (0.01-0.04) ng/ml Discharge Plan Discharge Prescriptions: No Action spironolactone 50 mg tablet 50 mg PO BID levothyroxine 50 mcg tablet 50 mcg PO DAILY Myrbetriq 25 mg tablet extended release 24 hr 25 mg PO DAILY furosemide 20 mg tablet 20 mg PO DAILY pantoprazole 40 mg tablet,delayed release (DR/EC) 40 mg PO DAILY trazodone 100 mg tablet 100 mg PO QPM citalopram 20 mg tablet 20 mg PO DAILY gabapentin 600 mg tablet 1,200 mg PO Q8H acyclovir 800 mg tablet 800 mg PO pramipexole 0.5 mg tablet 0.5 mg PO DAILY oxybutynin chloride 10 mg tablet extended release 24hr 10 mg PO DAILY alendronate 70 mg tablet 70 mg PO .weekly lidocaine 5 % adhesive patch,medicated 1 patch topical DAILY cetirizine 10 mg tablet 10 mg PO DAILY thiamine HCl (vitamin B1) 100 mg tablet 100 mg PO DAILY cyanocobalamin (vitamin B-12) 1,000 mcg/mL solution 1,000 mcg IM MONTHLY carboxymethylcellulose sodium 0.5 % drops 2 drp ophthalmic (eye) DAILY PRN cephalexin 500 mg capsule 500 mg PO TID Qty: 15 0RF potassium chloride 20 mEq tablet extended release 20 meq PO BID Qty: 10 0RF Follow Up/Referrals: Elissa Barnes PA-C [Primary Care Provider] -
[2024-02-02 11:54] LABS: Albumin* 2.7 g/dL (3.3-5.0); Chloride* 99 mmol/L (96-114)
[2024-02-02 11:55] LABS: Troponin, Point-of-Care* 0.01 ng/ml (0.01-0.04)
[2024-02-02 11:55] LABS: INR 1.29 (0.91-1.10); Potassium* 3.9 mmol/L (3.6-5.1); Prothrombin Time 16.9 Seconds; Sodium* 132 mmol/L (135-149)
[2024-02-02 11:57] LABS: Creatinine* 0.5 mg/dL (0.5-1.5); Est. Creatinine Clearance* 122.21; Estimated Glomerular Filt Rate 108 ml/min
[2024-02-02 11:58] LABS: Alanine Aminotransferase* 23 U/L (4-35); Alkaline Phosphatase* 125 U/L (40-150); Anion Gap 8 mEq/L (7-15); Aspartate Amino Transferase* 48 U/L (12-35); Bilirubin Direct* 0.5 mg/dL (0.0-0.5); Bilirubin Total* 1.9 mg/dL (0.1-1.5); Blood Urea Nitrogen* 10 mg/dL (7-30); Calcium* 8.1 mg/dL (8.4-10.6); Carbon Dioxide* 25 mmol/L (20-32); Glucose* 95 mg/dL (60-115); Lipase* 62 U/L (23-300); Total Protein* 6.5 g/dL (6.0-8.3)
[2024-02-02 11:59] LABS: Ethanol* < 0.01 % (0.01-0.03)
[2024-02-02 12:01] LABS: C Reactive Protein* 5.7 mg/dL (0.5-1.0)
[2024-02-02] MEDS: ONDANSETRON 2 MG/ML inj 4 MG IVP (12:04)
[2024-02-02] MEDS: MORPHINE 4 MG/ML INJ IVP (12:04)
[2024-02-02 12:23] LABS: Erythrocyte SedimentationRate* 31 mm/hr (2-20)
[2024-02-02] MEDS: HYDROmorphone 0.5 mg/0.5 ml inj IVP (12:45)
[2024-02-02] MEDS: HYDROmorphone 0.5 mg/0.5 ml inj 1 MG IVP (13:35)
[2024-02-02] MEDS: CEFAZOLIN 2 GM in 0.9 % SODIUM CHLORIDE Mini-bag 100 ML IVPB (13:43)
== END 2024-02-02 14:03 | disposition other institution (70) ==
PROVIDERS: Emergency Provider Emergency Medicine; PCP Physician Assistant Medical
DX: S72.301A Unspecified fracture of shaft of right femur, initial encounter for closed fracture (principal); M97.11XA Periprosthetic fracture around internal prosthetic right knee joint, initial encounter; W01.0XXA Fall on same level from slipping, tripping and stumbling without subsequent striking against object, initial encounter
CPT/HCPCS: 36415; 71045; 73552; 73560; 80048; 80076; 81001; 82077; 82803; 83605; 83690; 84484; 85025; 85610; 85651; 86140; 87040; 87070; 87186; 93005; 94761; 96374; 96375; 99284; 99285; J0690; J1170; J2270; J2405

== ENCOUNTER 2024-02-02 13:25 | Outpatient (CLI) | payer OTHER, SELFPAY ==
--- OUTSIDE RECORDS SUMMARY | 2024-02-29 07:53 | XMS_ITS | Clinical Summary ---
Author Organization [facility] Address [address] [place] [address] Phone Care Team Providers Care Materials Handler Name Role Phone Unavailable Primary Care Provider Unavailabl e Source Comments Nadanu is fully rolled out on [employer]. Last update 03/09/09.[facility] Allergies Active Allergy Reactions Criticality Noted Date [...] femu r, initial encounter for closed fracture (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 02/15/2024 10:00 AM CDT - 02/15/2024 10:30 AM CDT Surgery OR P4 [address] [place] [address] Ugo Young MD GI FLEX SIG 02/11/2024 9:57 PM CDT Anesthesia Event OR P4 [address] [place] [address] Marcus Hanna MD Vega, Vanessa [facility] 02/11/2024 9:40 PM CDT - 02/11/2024 10:10 PM CDT Surgery OR P4 [address] [place] [address] Service, Gi GI COLON DIAGNOSTIC 02/05/2024 1:15 PM CDT - 02/05/2024 4:25 PM CDT Surgery OR P4 [address] [place] [address] Dayo Henning MD IM BRANDEN FEMUR 02/05/2024 12:52 PM CDT Anesthesia Event OR P4 [address] [place] [address] Marcus Hanna MD Bagal, Kristi, OKSANA 02/04/2024 2:00 PM CDT - 02/04/2024 4:57 PM CDT Surgery OR P4 [address] [place] [address] Homa Zarate MD Not Performed IM BRANDEN FEMUR 02/04/2024 2:00 PM CDT Anesthesia Event OR P4 [address] [place] [address] Malcolm Hernandez, Michelle Pablo, DARIO, BIBI 02/03/2024 Orders Only [facility] Film Room [facility] Radiology Department FRED [address] [place] [address] Provider, Outside Referral of patient (Primary Dx) 02/02/2024 3:17 PM CDT - Present Hospital Encounter [facility] Orthopaedic [address] [place] [address] Humphrey Rose MD Isaksen, MD Justus Segundo, MD Malu Russ, MD Jesusita Sinha, MD Darrell Moe, Nino Lyle MD Other fracture of right femur, initial encounter for closed fracture (CMS) 02/02/2024 Travel 02/02/2024 Orders Only [facility] Film Room [facility] Radiology Department FRED [address] [place] [address] Provider, Outside Referral of patient (Primary Dx) 02/02/2024 Orders Only [facility] MRI P[address] [place] [address] Provider, Outside from Last 3 Months Social [...] Sign Reading Time Taken Comments Blood Pressure 91/55 02/28/2024 11:00 PM CDT Pulse 66 02/28/2024 11:00 PM CDT Temperature 36.4 ??C (97.5 ??F) 02/28/2024 11:00 PM C DT Respiratory Rate 16 02/28/2024 11:00 PM CDT Oxygen Saturation 97% 02/28/2024 11:00 PM CDT Inhaled Oxygen Concentration - - Weight 98.4 kg (217 lb) 02/02/2024 11:39 PM CDT Height 172.7 cm (5' 8) 02/02/2024 11:39 PM CDT Body Mass Index 32.99 02/02/2024 11:39 PM CDT Plan of Treatment Upcoming Encounters Date Type Department Care Team (Late st Contact Info) Description 03/03/2024 10:00 AM CDT [facility] [address] [place] [address] Lia Mcclellan PA-C [address] [facility] [address] [place] [address] Scheduled Discharge Disposition: Discharged to home or self care (routine discharge) 03/17/2024 9:45 AM CDT [facility]ointment [facility] [address] [address] Scheduled Discharge Disposition: Discharged to home or self care (routine discharge) 03/17/2024 10:00 AM CDT [facility] [address] [place] [phone] Dayo Henning MD [address] [place] [id number] Scheduled Discharge Disposition: Discharged to home or self care (routine discharge) Health Maintenance Due Date Last Done Comments CT Colonography 1964 Dental Oral Exam 1964 Dental Prophylaxis 1964 Dental X-Ray: Bitewings 1964 Depression Management 1964 FIT/Cologuard 1964 Hepatitis C Screening 1964 iFOB/FIT 1964 Diabetic Education Protocol (CDE) 1965 Diabetic Education 1965 Diabetic Eye Exam 1965 Diabetic Foot Exam 1965 Diabetic Lab Protocol 1965 Diabetic Microalbumin Screening 1965 Periodontal Maintenance 1978 HIV Screening 1979 PREVENTATIVE VISIT 1982 HEALTH MAINTENANCE PROTOCOL 1983 Imm: HepB (1 of 3 - 19+ 3-dose series) 1983 Cervical Cancer Screening Age 30-65 1994 COVID-19 Vaccine ( season) 2023 09/04/2022, 03/17/2022, 09/09/2021, Additional history exists Diabetic HGB A1C Q 6 Months (Goal <7) 08/03/2024 02/02/2024, 09/11/2023, 03/03/2023, Additional history exists Medicare Annual Wellness 09/11/2024 023, 09/10/2022, 09/09/2021, Additional history exists Breast Cancer Screening 05/25/2025 05/25/2023, 01/21 Lipid Screening 09/11/2028 09/11/2023, 12/0 04/2022, 09/02/2021 Sigmoidoscopy 02/14/2029 02/15/2024 Imm: Pneumonia Peds or At-Risk less than 65 years (3 of 3 - PPSV23 or PCV20) 2029 10/06/2018, 04/02/2017 TD/TDAP ADULTS 09/02/2032 09/02/2022, 12/0 12/2011, 03/25/2004, Additional history exists Colonoscopy 02/10/2034 02/11/2024 Colorectal Cancer Screening 02/10/2034 INFLUENZA VACCINE Completed 06/29/2023, , 07/09/2021, Additional history exists HIB Aged Out No longer eligi ble based on patient's age to complete this topic RSV Infant Immunoglobulin Aged Out No longer eligible based on patient's age to complete this topic Medical Devices Implanted Type Area Leather Grainer Device Identifier Shelf Expiration Date Model / Serial / Lot Freehand Drill [id number] Implanted:Qty: 1 on 02/05/2024 by Dayo Henning MD at [facility] Drill bit/kiara Right: Femur [employer] 11/04/2033 [id number] S / / [id number] Femoral Nail Retrograde [id number] Implanted:Qty: 1 on 02/05/2024 by Dayo Henning MD at [facility] Branden Right: Femur [employer] 10/04/2033 [id number] S / / [id number] 5.0x60mm 2361-5060s Implanted:Qty: 1 on 02/05/2024 by Dayo Henning MD at [facility] Screw/Rudy t Right: Femur [employer] 06/04/2032 [id number] S / / [id number] 5.0x70mm 2361-5070s Implanted:Qty: 1 on 02/05/2024 by Dayo Henning MD at [facility] Screw/Rudy t Right: Femur [employer] 09/03/2033 [id number] S / / [id number] 5.0x75mm Adv 2361-5075s Implanted:Qty: 1 on 02/05/2024 by Dayo Henning MD at [facility] Screw/Rudy t Right: Femur [employer] 09/03/2033 [id number] S / / [id number] 5.0x42.5mm [id number] Implanted:Qty: 1 on 02/05/2024 by Dayo Henning MD at [facility] Screw/Rudy t Right: Femur [employer] 10/04/2033 [id number] S / / [id number] Procedures The patient is currently admitted. The information in this section might not be complete until the patient is discharged. Procedure Name Priority Date/Time Associated Diagnosis Comments POC GLUCOSE Routine 02/29/2024 6:45 AM CDT POC GLUCOSE Routine 02/28/2024 9:12 PM CDT POC GLUCOSE Routine 02/28/2024 4:38 PM CDT POC GLUCOSE Routine 02/28/2024 11:38 AM CDT POC GLUCOSE Routine 02/28/2024 6:30 AM CDT PHOSPHORUS Routine 02/28/2024 6:00 AM CDT MAGNESIUM Routine 02/28/2024 6:00 AM CDT PC IONIZED,CALCIUM Routine 02/28/2024 6: 00 AM CDT PANEL BASIC METABOLIC (BMP) Routine 02/28/2024 6:00 AM CDT POC GLUCOSE Routine 02/27/2024 9:18 PM CDT POC GLUCOSE Routine 02/27/2024 4:32 PM CDT XR PICC LINE PLACE CHECK RIGHT STAT 02/27/2024 1:15 PM CDT POC GLUCOSE Routine 02/27/2024 11:55 AM CDT PICC LINE Routine 02/27/2024 11:40 AM CDT PC TRIGLYCERIDES Routine 02/27/2024 7:16 AM CDT PHOSPHORUS Routine 02/27/2024 7:16 AM CDT MAGNESIUM Routine 02/27/2024 7:16 AM CDT PANEL BASIC METABOLIC (BMP) Routine 02/27/2024 7:16 AM CDT PC LAB CBC W/DIFF & PLT Routine 02/27/2024 7:16 AM CDT POC GLUCOSE Routine 02/27/2024 5:56 AM CDT POC GLUCOSE Routine 02/26/2024 11:54 PM CDT POC GLUCOSE Routine 02/26/2024 6:16 PM CDT POTASSIUM Timed 02/26/2024 4:52 PM CDT POC GLUCOSE Routine 02/26/2024 11:58 AM CDT XR ABDOMEN 1 VIEW* Routine 02/26/2024 10:16 AM CDT PC LAB CBC W/DIFF & PLT Routine 02/26/2024 7:17 AM CDT PHOSPHORUS Routine 02/26/2024 7:17 AM CDT MAGNESIUM Routine 02/26/2024 7:17 AM CDT PANEL BASIC METABOLIC (BMP) Routine 02/26/2024 7:17 AM CDT POC GLUCOSE Routine 02/26/2024 6:23 AM CDT POC GLUCOSE Routine 02/26/2024 12:01 AM CDT POC GLUCOSE Routine 02/25/2024 9:33 PM CDT XR ABDOMEN 1 VIEW* Routine 02/25/2024 10:45 AM CDT PHOSPHORUS Routine 02/25/2024 6:22 AM CDT MAGNESIUM Routine 02/25/2024 6:22 AM CDT PC LAB CBC W/DIFF & PLT Routine 02/25/2024 6:22 AM CDT PANEL BASIC METABOLIC (BMP) Routine 02/25/2024 6:22 AM CDT POC GLUCOSE Routine 02/24/2024 5:53 PM CDT PANEL HEPATIC FUNCTION Routine 02/24/2024 11:25 AM CDT PROTHROMBIN (PT) & INR Routine 02/24/2024 11:25 AM CDT MAGNESIUM Routine 02/24/2024 11:25 AM CDT PANEL BASIC METABOLIC (BMP) Routine 02/24/2024 11:25 AM CDT TC LAB BLOOD DRAW BY VENIPUNCTURE Routine 02/24/2024 11:25 AM CDT XR ABDOMEN 1 VIEW* Routine 02/24/2024 9: 02 AM CDT POC GLUCOSE Routine 02/24/2024 6:51 AM CDT POC GLUCOSE Routine 02/24/2024 1:36 AM CDT POC GLUCOSE Routine 02/23/2024 6:39 PM CDT XR ABDOMEN 1 VIEW* Routine 02/23/2024 2: 31 PM CDT MAGNESIUM Routine 02/23/2024 8:46 AM CDT PANEL BASIC METABOLIC (BMP) Routine 02/23/2024 8:46 AM CDT PC LAB CBC/PLT Routine 02/23/2024 8:46 AM CDT POC GLUCOSE Routine 02/23/2024 6:48 AM CDT POC GLUCOSE Routine 02/23/2024 12:07 AM CDT POC GLUCOSE Routine 02/22/2024 11:29 AM CDT POC GLUCOSE Routine 02/22/2024 6:45 AM CDT PANEL BASIC METABOLIC (BMP) Routine 02/22/2024 6:18 AM CDT TC LAB BLOOD DRAW BY VENIPUNCTURE Routine 02/22/2024 6:18 AM CDT POC GLUCOSE Routine 02/22/2024 12:39 AM CDT POC GLUCOSE Routine 02/21/2024 6:03 PM CDT PC LACTATE (LACTIC ACID) Routine 02/21/2024 8:38 AM CDT PC IONIZED,CALCIUM Routine 02/21/2024 8: 38 AM CDT PHOSPHORUS Routine 02/21/2024 8:38 AM CDT MAGNESIUM Routine 02/21/2024 8:38 AM CDT PANEL BASIC METABOLIC (BMP) Routine 02/21/2024 8:38 AM CDT TC LAB BLOOD DRAW BY VENIPUNCTURE Routine 02/21/2024 8:38 AM CDT PC IONIZED,CALCIUM Timed 02/20/2024 8: 37 PM CDT PHOSPHORUS Timed 02/20/2024 8:37 PM CDT MAGNESIUM Timed 02/20/2024 8:37 PM CDT PANEL BASIC METABOLIC (BMP) Timed 02/20/2024 8:37 PM CDT PROTHROMBIN (PT) & INR Timed 02/20/2024 8:37 PM CDT HEMOGLOBIN Timed 02/20/2024 8:[address] ABDOMEN/PELVIS W/IV CON Routine 02/20/2024 7:05 PM CDT POC GLUCOSE Routine 02/20/2024 6:32 PM CDT PC LACTATE (LACTIC ACID) Timed 02/20/2024 5:38 PM CDT XR ABDOMEN 1 VIEW* Routine 02/20/2024 4: 42 PM CDT PANEL HEPATIC FUNCTION Routine 02/20/2024 7:44 AM CDT PANEL BASIC METABOLIC (BMP) Routine 02/20/2024 7:44 AM CDT PC LAB CBC/PLT Routine 02/20/2024 7:44 AM CDT POC GLUCOSE Routine 02/20/2024 6:18 AM CDT POC GLUCOSE Routine 02/19/2024 9:24 PM CDT POC GLUCOSE Routine 02/19/2024 4:19 PM CDT PARACENTESIS Routine 02/19/2024 2:55 PM CDT IR PARACENTESIS Routine 02/19/2024 2:54 PM CDT POC GLUCOSE Routine 02/19/2024 11:06 AM CDT POC GLUCOSE Routine 02/19/2024 6:02 AM CDT PC LAB CBC/PLT Routine 02/19/2024 5:03 AM CDT PANEL BASIC METABOLIC (BMP) Routine 02/19/2024 5:03 AM CDT POC GLUCOSE Routine 02/19/2024 12:07 AM CDT SODIUM Timed 02/18/2024 9:39 PM CDT PC OSMOLALITY; URINE STAT 02/18/2024 4:31 PM CDT PC SODIUM; URINE STAT 02/18/2024 4:31 PM CDT SODIUM Timed 02/18/2024 3:10 PM CDT PC THYROID STIMULATING HORMONE(TSH) AGNIESZKA Routine 02/18/2024 8:33 AM CDT PANEL BASIC METABOLIC (BMP) Routine 02/18/2024 8:33 AM CDT PC LAB CBC/PLT Routine 02/18/2024 8:33 AM CDT POC GLUCOSE Routine 02/18/2024 8:06 AM CDT POC GLUCOSE Routine 02/17/2024 11:13 AM CDT PANEL BASIC METABOLIC (BMP) Routine 02/17/2024 7:19 AM CDT TC LAB BLOOD DRAW BY VENIPUNCTURE Routine 02/17/2024 7:19 AM CDT POC GLUCOSE Routine 02/17/2024 6:02 AM CDT POC GLUCOSE Routine 02/17/2024 12:02 AM CDT POC GLUCOSE Routine 02/16/2024 6:18 PM CDT PARACENTESIS Routine 02/16/2024 3:19 PM CDT IR PARACENTESIS Routine 02/16/2024 2:57 PM CDT PC SMEAR, ABDIAZIZ SOURCE, WITH INTERPRETATION (GRAM STAIN) Routine 02/16/2024 2:56 PM CDT PC CELL COUNT,MICS.BODY FLUIDS,EXCEPT BLOOD,W-DIFF. CT. Routine 02/16/2024 2:55 PM CDT PC LAB CBC/PLT Routine 02/16/2024 8:12 AM CDT PANEL HEPATIC FUNCTION Routine 02/16/2024 8:12 AM CDT PROTHROMBIN (PT) & INR Routine 02/16/2024 8:12 AM CDT MAGNESIUM Routine 02/16/2024 8:12 AM CDT PANEL BASIC METABOLIC (BMP) Routine 02/16/2024 8:12 AM CDT POC GLUCOSE Routine 02/16/2024 6:35 AM CDT POC GLUCOSE Routine 02/15/2024 11:47 PM CDT POC GLUCOSE Routine 02/15/2024 5:52 PM CDT POC GLUCOSE Routine 02/15/2024 1:21 PM CDT POC GLUCOSE Routine 02/15/2024 12:21 PM CDT XR ABDOMEN 1 VIEW* Routine 02/15/2024 11:38 AM CDT POC GLUCOSE Routine 02/15/2024 10:46 AM CDT GI FLEX SIG Urgent (< 48 hrs) 02/15/2024 10:18 AM CDT Imaging of gastrointestinal tract abnormal FLEXIBLE SIGMOIDOSCOPY Routine 02/15/2024 9:55 AM CDT MAGNESIUM Routine 02/15/2024 6:48 AM CDT PHOSPHORUS Routine 02/15/2024 6:48 AM CDT PC LAB CBC/PLT Routine 02/15/2024 6:48 AM CDT PROTHROMBIN (PT) & INR Routine 02/15/2024 6:48 AM CDT PANEL HEPATIC FUNCTION Routine 02/15/2024 6:48 AM CDT PANEL BASIC METABOLIC (BMP) Routine 02/15/2024 6:48 AM CDT POC GLUCOSE Routine 02/15/2024 6:04 AM CDT POC GLUCOSE Routine 02/15/2024 12:06 AM CDT POC GLUCOSE Routine 02/14/2024 9:02 PM CDT XR ABDOMEN 1 VIEW* Routine 02/14/2024 7: 08 PM CDT PC LACTATE (LACTIC ACID) Timed 02/14/2024 5:01 PM CDT POC GLUCOSE Routine 02/14/2024 4:10 PM CDT POC GLUCOSE Routine 02/14/2024 11:12 AM CDT XR ABDOMEN 1 VIEW* Routine 02/14/2024 10:42 AM CDT PHOSPHORUS Routine 02/14/2024 8:18 AM CDT MAGNESIUM Routine 02/14/2024 8:18 AM CDT PROTHROMBIN (PT) & INR Routine 02/14/2024 8:18 AM CDT PC LAB CBC/PLT Routine 02/14/2024 8:18 AM CDT PANEL HEPATIC FUNCTION Routine 02/14/2024 8:18 AM CDT PANEL BASIC METABOLIC (BMP) Routine 02/14/2024 8:18 AM CDT POC GLUCOSE Routine 02/14/2024 6:07 AM CDT POC GLUCOSE Routine 02/13/2024 11:59 PM CDT POC GLUCOSE Routine 02/13/2024 6:06 PM CDT POC GLUCOSE Routine 02/13/2024 11:46 AM CDT PC LAB CBC/PLT Routine 02/13/2024 9:06 AM CDT PANEL BASIC METABOLIC (BMP) Routine 02/13/2024 9:06 AM CDT PANEL HEPATIC FUNCTION Routine 02/13/2024 9:06 AM CDT POC GLUCOSE Routine 02/13/2024 6:07 AM CDT POC GLUCOSE Routine 02/13/2024 12:05 AM CDT PC LACTATE (LACTIC ACID) Timed 02/12/2024 8:15 PM CDT POC GLUCOSE Routine 02/12/2024 5:56 PM CDT PC LACTATE (LACTIC ACID) Timed 02/12/2024 2:45 PM CDT POC GLUCOSE Routine 02/12/2024 12:49 PM CDT POC GLUCOSE Routine 02/12/2024 12:20 PM CDT XR ABDOMEN 1 VIEW* Routine 02/12/2024 10:03 AM CDT PC LACTATE (LACTIC ACID) Timed 02/12/2024 8:50 AM CDT PC LAB CBC/PLT Routine 02/12/2024 8:50 AM CDT PROTHROMBIN (PT) & INR Routine 02/12/2024 8:50 AM CDT PANEL HEPATIC FUNCTION Routine 02/12/2024 8:50 AM CDT PANEL BASIC METABOLIC (BMP) Routine 02/12/2024 8:50 AM CDT POC GLUCOSE Routine 02/12/2024 6:52 AM CDT PC LACTATE (LACTIC ACID) Timed 02/12/2024 2:54 AM CDT POC GLUCOSE Routine 02/11/2024 10:43 PM CDT INTUBATION Routine 02/11/2024 10:08 PM CDT GI COLON DIAGNOSTIC Emergent (DEMETRI) 02/11/2024 9:54 PM CDT Raya syndrome COLONOSCOPY-DIAGNOST IC Routine 02/11/2024 9:24 PM CDT PC LACTATE (LACTIC ACID) Timed 02/11/2024 8:51 PM CDT PC LACTATE (LACTIC ACID) STAT 02/11/2024 7:[address] ABDOMEN/PELVIS W/IV CON Routine 02/11/2024 2:22 PM CDT XR ABDOMEN 1 VIEW* Routine 02/11/2024 10:07 AM CDT PANEL HEPATIC FUNCTION Routine 02/11/2024 7:25 AM CDT PROTHROMBIN (PT) & INR Routine 02/11/2024 7:25 AM CDT PC LAB CBC/PLT Routine 02/11/2024 7:25 AM CDT PANEL BASIC METABOLIC (BMP) Routine 02/11/2024 7:25 AM CDT MAGNESIUM Routine 02/11/2024 7:20 AM CDT PHOSPHORUS Routine 02/11/2024 7:20 AM CDT PANEL HEPATIC FUNCTION Routine 02/10/2024 7:06 AM CDT PROTHROMBIN (PT) & INR Routine 02/10/2024 7:06 AM CDT PC LAB CBC/PLT Routine 02/10/2024 7:06 AM CDT MAGNESIUM Routine 02/10/2024 7:06 AM CDT PANEL BASIC METABOLIC (BMP) Routine 02/10/2024 7:06 AM CDT TC LAB BLOOD DRAW BY VENIPUNCTURE Routine 02/10/2024 7:06 AM CDT POC GLUCOSE Routine 02/10/2024 6:15 AM CDT POC GLUCOSE Routine 02/09/2024 11:04 PM CDT POC GLUCOSE Routine 02/09/2024 6:42 AM CDT POC GLUCOSE Routine 02/08/2024 11:51 PM CDT POC GLUCOSE Routine 02/08/2024 5:58 PM CDT POC GLUCOSE Routine 02/08/2024 12:30 PM CDT IR PARACENTESIS Routine 02/08/2024 11:45 AM CDT PARACENTESIS Routine 02/08/2024 11:14 AM CDT PROTHROMBIN (PT) & INR Routine 02/08/2024 8:19 AM CDT PANEL HEPATIC FUNCTION Routine 02/08/2024 8:19 AM CDT PANEL BASIC METABOLIC (BMP) Routine 02/08/2024 8:19 AM CDT POC GLUCOSE Routine 02/07/2024 6:41 PM CDT POC GLUCOSE Routine 02/07/2024 12:24 PM CDT PHOSPHORUS Routine 02/07/2024 6:05 AM CDT MAGNESIUM Routine 02/07/2024 6:05 AM CDT PANEL HEPATIC FUNCTION Routine 02/07/2024 6:05 AM CDT PC LAB CBC/PLT Routine 02/07/2024 6:05 AM CDT PANEL BASIC METABOLIC (BMP) Routine 02/07/2024 6:05 AM CDT POC GLUCOSE Routine 02/06/2024 6:08 PM CDT POC GLUCOSE Routine 02/06/2024 11:57 AM CDT PROTHROMBIN (PT) & INR Routine 02/06/2024 7:10 AM CDT PANEL HEPATIC FUNCTION Routine 02/06/2024 7:10 AM CDT PANEL BASIC METABOLIC (BMP) [...] CDT INTUBATION Routine 02/05/2024 1:11 PM CDT IM BRANDEN FEMUR Urgent (< 48 hrs) 02/05/2024 12:37 PM CDT Femur fracture, right (CMS) POC GLUCOSE Routine 02/05/2024 11:21 AM CDT WOUND CULTURE:GRAM STAIN OPTIONAL Routine 02/05/2024 10:00 AM CDT PROTHROMBIN (PT) & INR Routine 02/05/2024 9:15 AM CDT PANEL HEPATIC FUNCTION Routine 02/05/2024 9:15 AM CDT PC LAB CBC/PLT Routine 02/05/2024 9:15 AM CDT PANEL BASIC METABOLIC (BMP) Routine 02/05/2024 9:15 AM CDT POC GLUCOSE Routine 02/05/2024 6:02 AM CDT POC GLUCOSE Routine 02/04/2024 11:58 PM CDT PC CULTURE SPECIMEN, ANAEROBIC Routine 02/04/2024 10:44 PM CDT PC CULTURE,BACTERIAL,DE FINITIVE,AEROBIC ANY SOURCE Routine 02/04/2024 10:44 PM CDT HELD MICRO SPECIMEN Routine 02/04/2024 10:44 PM CDT POC GLUCOSE Routine 02/04/2024 9:50 PM CDT PC CULTURE,BACTERIAL,DE FINATIVE,AEROBIC;BLO OD Timed 02/04/2024 6:44 PM CDT PC CULTURE,BACTERIAL,DE FINATIVE,AEROBIC;BLO OD Routine 02/04/2024 6:44 PM CDT POTASSIUM Timed 02/04/2024 1:17 PM CDT PC ANTIBODY SCREEN,RBC,EACH SERUM TECHNIQUE STAT 02/04/2024 1:17 PM CDT TC LAB BLOOD DRAW BY VENIPUNCTURE STAT 02/04/2024 1:17 PM CDT PROTHROMBIN (PT) & INR Routine 02/04/2024 6:40 AM CDT PANEL HEPATIC FUNCTION Routine 02/04/2024 6:40 AM CDT PC LAB CBC/PLT Routine 02/04/2024 6:40 AM CDT PANEL BASIC METABOLIC (BMP) Routine 02/04/2024 6:40 AM CDT PC CULTURE,BACTERIAL,DE FINATIVE,AEROBIC;BLO OD Timed 02/03/2024 12:13 PM CDT PC CULTURE,BACTERIAL,DE FINATIVE,AEROBIC;BLO OD Timed 02/03/2024 12:06 PM CDT PROTHROMBIN (PT) & INR Routine 02/03/2024 8:03 AM CDT PANEL HEPATIC FUNCTION Routine 02/03/2024 8:03 AM CDT PANEL BASIC METABOLIC (BMP) [...] CT. STAT 02/02/2024 7:51 PM CDT PC CULTURE,BACTERIAL,DE FINITIVE,AEROBIC ANY SOURCE STAT 02/02/2024 7:51 PM CDT [...] 4:01 PM CDT PANEL HEPATIC FUNCTION STAT 02/02/2024 4:01 PM CDT PC LACTATE (LACTIC ACID) STAT 02/02/2024 4:01 PM CDT PROTHROMBIN (PT) & INR STAT 02/02/2024 4:01 PM CDT PC TROPONIN QUANTITATIVE STAT [...] Routine 02/02/2024 3:48 PM CDT ED US ABDOMINAL/GALLBLADDE R STAT 02/02/2024 3:40 PM CDT XR CHEST OUTSIDE FILMS Routine 02/02/2024 12:30 PM CDT Referral of patient XR LOWER EXTREMITY OUTSIDE FILMS Routine 02/02/2024 12:15 PM CDT Referral of patient XR LOWER EXTREMITY OUTSIDE FILMS Routine 02/02/2024 11:25 AM CDT Referral of patient PANEL LIPID Routine 09/11/2023 9:11 AM MEDICAL RECORDS CODER from Last 3 Months or Most Recently Relevant to Health Maintenance Results * (ABNORMAL) POC GLUCOSE (02/29/2024 6:45 AM CDT) Only the most recent of76 resultswithin the time period is included. [facility] POC Glucose 105(H) 70 - 100 mg/dL [facility] Blood 02/29/2024 6:45 AM CDT Humphrey Rose MD LABORATORY Performing Organization Address City/[facility]/ZIP Co de Phone Number [facility] [address] [place] [address] * PHOSPHORUS (02/28/2024 6:00 AM CDT) Only the most recent of10 resultswithin the time period is included. Pathologist [facility] Phosphorus 3.7 2.5 - 4.5 mg/dL [facility] Blood 02/28/2024 6:00 AM CDT 02/28/2024 6:12 AM CDT Nino Ramírez MD LABORATORY [facility] [place] [address] * (ABNORMAL) PANEL BASIC METABOLIC (BMP) (02/28/2024 6:00 AM CDT) Only the most recent of26 resultswithin the time period is included. [facility] Sodium 133(L) 135 - 148 mmol/L [facility] Potassium 3.5 3.5 - 5.3 mmol/L [facility] Chloride 102 92 - 108 mmol/L [facility] AnGap 7(L) 8 - 16 mmol/L [facility] CO2 24 22 - 30 mmol/L [facility] Glucose 87 70 - 100 mg/dL [facility] BUN 9 6 - 20 mg/dL [facility] Creatinine 0.46(L) 0.50 - 1.00 mg/dL [facility] Calcium 8.0(L) 8.6 - 10.0 mg/dL [facility] eGFR (2020 CKD-EPI) 110 >=60 ml/min/1.7 3m2 [facility] Comment: The estimated glomerular filtration rate (eGFR) was calculated using the CKD-EPI 2020 creatinine equation, which does not include race as a factor. This equation is validated in individuals 18 years of age and older, and eGFR is normalized to a body surface area of 1.73m^2. Blood 02/28/2024 6:00 AM CDT 02/28/2024 6:12 AM CDT Nino Ramírez MD LABORATORY [address] [address] * MAGNESIUM (02/28/2024 6:00 AM CDT) Only the most recent of14 resultswithin the time period is included. Magnesium 2.0 1.6 - 2.6 mg/dL [facility] Blood 02/28/2024 6:00 AM CDT 02/28/2024 6:12 AM CDT Nino Ramírez MD LABORATORY [facility] [address] [address] * CALCIUM,IONIZED (02/28/2024 6:00 AM CDT) Only the most recent of3 resultswithin the time period is included. PH 7.38 7.32 - 7.42 [facility] ICA, Actual 4.57 4.40 - 5.20 mg/dL [facility] ICA, pH Corrected 4.52 4.40 - 5.20 mg/dL [facility] Blood 02/28/2024 6:00 AM CDT 02/28/2024 6:15 AM CDT Narrative [facility] - 02/28/2024 6:35 AM CDT Send specimen on ice! Nino Ramírez MD LABORATORY [facility] [address] [address] * XR PICC LINE PLACEMENT CHECK RIGHT (02/27/2024 1:15 PM CDT) Anatomical Region Laterality Modality Chest Computed Radiogr aphy 02/27/2024 1:49 PM CDT Impressions 02/27/2024 1:50 PM CDT Impression: Right arm PICC projects in good position. Reading Radiologist: Lukas Nava Narrative 02/27/2024 1:50 PM CDT Indication: New PICC Comparison: none Findings: A new PICC enters from the right arm and its tip projects over the superior vena cava. Procedure Note Lukas Nava DO - 02/27/2024 Indication: New PICC Comparison: none Findings: A new PICC enters from the right arm and its tip projects overthe superior vena cava. IMPRESSION Impression: Right arm PICC projects in good position. Reading Radiologist: Lukas Nava Nino Ramírez MD RAD XRAY * PICC Line (02/27/2024 11:40 AM CDT) Narrative Patricia Dumont RN - 02/27/2024 11:40 AM CDT Patricia Dumont RN ? 02/27/2024 ??2:00 PM PICC Line Date/Time: 02/27/2024 11:40 AM Performed by: Patricia Dumont RN Authorized by: Nino Ramírez MD ?? [place] Protocol: ??Verbal consent obtained?: Yes ?Written consent obtained?: Yes ?Risks and benefits: Risks, benefits and alternatives were discussed ?Consent given by: ??Patient ??Patient states understanding of procedure being performed: Yes ?Patient's understanding of procedure matches consent: Yes ?Procedure consent matches procedure scheduled: Yes ?Relevant documents present and verified: Yes ?Test results available and properly labeled: Yes ?Site marked: Yes ?Imaging studies available: Yes ?Required items: Required blood products, implants, devices and special equipment available ?? Insertion Checklist: ??Checklist completed: ??Yes ??Line placement observer: ??Analisa Laughlin RN ??Does line need to be changed within 48 hours of insertion: ??No Indications: ??Indications: ??TPN Anesthesia: ??Anesthesia: ??See MAR for details ??Local anesthetic: ??Lidocaine 1% without epinephrine ??Anesthetic total (ml): ??1 ??Patient sedated?: No ?? Procedure details: ??Preparation: ??Skin prepped with ChloraPrep and skin prepped with 2% chlorhexidine ??Skin prep agent dried: Skin prep agent completely dried prior to procedure ?Sterile barriers: All five maximal sterile barriers used - gloves, gown, cap, mask, and large sterile sheet ?Hand hygiene: Hand hygiene performed prior to central venous catheter insertion ?Site selection rationale: ??Best vein for PICC placement ??Patient position: ??Flat ??Catheter type: ??Double lumen ??Catheter size: ??5 Fr (43cm total length, 2 cm out secured with [id number]; AC to IS: 5 cm; Circumference 10 cm above AC: 24 cm) ??Catheter contract associate manager: ??Bard ??Lot Number: ??[id number] ??Pre-procedure: landmarks identified ?Ultrasound guidance: Yes ?Number of attempts: ??1 ??Successful placement: Yes ?? Post-procedure: ??Securement: ??Securement device ??Dressing: ??Transparent adhesive dressing ??Antimicrobial disc: Protective Chlorhexidine gluconate disc placed ?Assessment: ??Blood return through all parts and placement verified by x-ray ??Image intensifier tip position: verified by chest x-ray. ??CXR read by: chest x-ray order in place. ??Complications: none. ??Patient tolerance: ??Patient tolerated the procedure well with no immediate complications Nino Ramírez MD PROCEDURES * (ABNORMAL) CBC WITH PLTS/AUTO DIFF (02/27/2024 7:16 AM CDT) Only the most recent of6 resultswithin the time period is included. [facility] WBC 3.37(L) 4.00 - 10.00 k/cmm [facility] RBC 3.03(L) 3.90 - 5.20 m/cmm [facility] Hgb 9.1(L) 11.5 - 15.7 g/dL [facility] Hematocrit 29.5(L) 34.0 - 45.0 % [facility] MCV 97.4 80.0 - 100.0 fL [facility] MCH 30.0 25.0 - 32.0 pg [facility] MCHC 30.8(L) 31.0 - 36.0 g/dL [facility] RDW 14.4 11.5 - 14.5 % [facility] Plt 125(L) 150 - 400 k/cmm [facility] MPV 9.3 6.5 - 12.5 fL [facility] Automated Abs Neutrophil 1.31(L) 1.70 - 6.50 k/cmm [facility] Comment:Preliminary ANC, Fin al Result to Follow Abs Immature Granulocyte 0.01 0.00 - 0.09 k/cmm [facility] Comment:The Immature Granulo cyte Absolute count contains metamyelocytes and myelocytes. Abs Neutrophil 1.31(L) 1.70 - 6.50 k/cmm [facility] Abs Lymphocyte 1.63 0.80 - 4.00 k/cmm [facility] Abs Monocyte 0.32 0.20 - 1.00 k/cmm [facility] Abs Eosinophil 0.09 0.00 - 0.60 k/cmm [facility] Abs Basophil 0.01 0.00 - 0.20 k/cmm [facility] Blood 02/27/2024 7:16 AM CDT 02/27/2024 7:35 AM CDT Ernestine Toribio MD LABORATORY Performing Organization Address City/[facility]/ZIP Co de Phone Number [facility] [address] [address] * TRIGLYCERIDE (02/27/2024 7:16 AM CDT) Triglyceride 138 <=150 mg/dL [facility] Comment: Interpretive Data <150 Normal 150-199 Borderline high 200-499 High >=500 Very high Blood 02/27/2024 7:16 AM CDT 02/27/2024 7:35 AM CDT Ernestine Toribio MD LABORATORY Performing Organization Address [facility] Co de Phone Number [facility] [address] [address] * POTASSIUM (02/26/2024 4:52 PM CDT) Only the most recent of2 resultswithin the time period is included. Potassium 4.2 3.5 - 5.3 mmol/L [facility] Blood 02/26/2024 4:52 PM CDT 02/26/2024 5:19 PM CDT Ernestine Toribio MD LABORATORY Performing Organization Address [facility] Co de Phone Number [facility] [address] [address] * XR ABDOMEN 1 VIEW* (02/26/2024 10:16 AM CDT) Only the most recent of10 resultswithin the time period is included. Anatomical Region Laterality Modality Abdomen Computed Radiogr aphy 02/26/2024 10:1 9 AM CDT Impressions 02/26/2024 10:20 AM CDT IMPRESSION: Persistent colonic dilatation. Reading Radiologist: Grover Ballesteros Narrative 02/26/2024 10:20 AM CDT Technique: XR ABDOMEN 1 VIEW* Indication: Abdominal distention with rectal tube present, evaluate for improving bowel distension. ?? Comparison: 02/25/2024 FINDINGS: Distended colonic loops are again seen. There is partial visualization of fixation where in the femurs. Procedure Note Grover Ballesteros MD - 02/26/2024 Technique: XR ABDOMEN 1 VIEW* Indication: Abdominal distention with rectal tube present, evaluate forimproving bowel distension. Comparison: 02/25/2024 FINDINGS: Distended colonic loops are again seen. There is partialvisualization of fixation where in the femurs. IMPRESSION IMPRESSION: Persistent colonic dilatation. Reading Radiologist: Grover Ballesteros Ernestine Toribio MD RAD XRAY * (ABNORMAL) PROTHROMBIN (PT) & INR (02/24/2024 11:25 AM CDT) Only the most recent of14 resultswithin the time period is included. Pathologist [facility] PT 16.8(H) 9.0 - 12.5 sec [facility] INR 1.5(H) 0.8 - 1.1 [facility] Comment: Warfarin Therapeutic Range: Standard Intensity: 2.0 - 3.0 High Intensity: 2.5 - 3.5 Blood 02/24/2024 11:2 5 AM CDT 02/24/2024 11:56 AM CDT Ernestine Toribio MD LABORATORY [facility] [address] [address] * (ABNORMAL) PANEL HEPATIC FUNCTION (02/24/2024 11:25 AM CDT) Only the most recent of16 resultswithin the time period is included. Total Protein 5.9(L) 6.4 - 8.3 g/dL [facility] Albumin 2.6(L) 3.8 - 5.1 g/dL [facility] Bili Total 0.6 <=1.2 mg/dL [facility] Bili Direct 0.2 <=0.3 mg/dL [facility] Alk Phos 123(H) 35 - 104 IU/L [facility] Comment:No reference range e stablished for patients <18 years old. ALT (SGPT) <5 <=33 IU/L [facility] AST(SGOT) 27 5 - 40 IU/L [facility] Blood 02/24/2024 11:2 5 AM CDT 02/24/2024 11:56 AM CDT Ernestine Toribio MD LABORATORY Performing Organization Address City/[facility]/ZIP Co de Phone Number [facility] [address] [address] * (ABNORMAL) CBC WITH PLATELET (02/23/2024 8:46 AM CDT) Only the most recent of17 resultswithin the time period is included. WBC 3.17(L) 4.00 - 10.00 k/cmm [facility] RBC 3.23(L) 3.90 - 5.20 m/cmm [facility] Hgb 9.7(L) 11.5 - 15.7 g/dL [facility] Hematocrit 31.0(L) 34.0 - 45.0 % [facility] MCV 96.0 80.0 - 100.0 fL [facility] MCH 30.0 25.0 - 32.0 pg [facility] MCHC 31.3 31.0 - 36.0 g/dL [facility] RDW 14.9(H) 11.5 - 14.5 % [facility] Plt 138(L) 150 - 400 k/cmm [facility] MPV 10.4 6.5 - 12.5 fL [facility] Blood 02/23/2024 8:46 AM CDT 02/23/2024 9:23 AM CDT Francy Mc MD LABORATORY Performing Organization Address City/[facility]/ZIP Co de Phone Number [facility] [address] [address] * LACTATE (LACTIC ACID) (02/21/2024 8:38 AM CDT) Only the most recent of10 resultswithin the time period is included. Lactate 1.3 0.7 - 2.1 mmol/L [facility] Blood 02/21/2024 8:38 AM CDT 02/21/2024 8:49 AM CDT Narrative [facility] - 02/21/2024 8:57 AM CDT Send specimen on ice! Nikos Ferrer MD LABORATORY [address] [address] * (ABNORMAL) HEMOGLOBIN (02/20/2024 8:37 PM CDT) Only the most recent of2 resultswithin the time period is included. Hgb 8.7(L) 11.5 - 15.7 g/dL [facility] Blood 02/20/2024 8:37 PM CDT 02/20/2024 9:04 PM CDT Francy Mc MD LABORATORY Performing Organization Address [facility] Co de Phone Number [address] [address] * CT ABDOMEN/PELVIS W/IV CON (02/20/2024 7:05 PM CDT) Only the most recent of3 resultswithin the time period is included. Anatomical Region Laterality Modality Abdomen, Pelvis Computed Tomogra phy 02/20/2024 7:02 PM CDT Impressions 02/21/2024 9:02 AM CDT Impression: 1. 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 No evidence of obstruction, volvulus, or perforation. Findings suggest Raya syndrome. 2. Postsurgical changes of Gina-en-Y gastric bypass without obvious complication. 3. Moderate volume peritoneal and pelvic ascites, bilateral pleural effusions, and severe soft tissue anasarca. 4. Cirrhotic appearance of the liver, with splenomegaly and portosystemic collaterals. 5. Cholelithiasis without evidence of acute cholecystitis. I have personally reviewed the image(s) and initial interpretation, and I agree with the findings as documented by the resident/fellow. Reading Radiologist: Landon Mitchell Reading Resident: Dominic Hair Narrative 02/21/2024 9:02 AM CDT Comparison: CT abdomen and pelvis 02/11/2024, abdominal radiograph from 1634 hours Indication: marked distension of sigmoid colon on xray ?? Technique: Volumetric helical acquisition of CT images from the lung bases through the symphysis pubis with IV contrast. DOSE: ?Total DLP = 697 mGy.cm. ?? Findings: Lines and Tubes: Indwelling Cano catheter with tip in the bladder lumen. Lower Thorax: Bilateral pleural effusions. Segmental and compressive atelectasis. Normal heart size. ??No pericardial effusion. Liver: Nodular contour and nodular contrast enhancement without focal mass. Gallbladder and biliary tree: Cholelithiasis. No intra or extrahepatic biliary dilation. Pancreas: No focal pancreatic mass. ??No ductal dilation. Spleen: No splenic mass. Adrenals: Within normal limits. Kidneys, ureters and bladder: Simple left renal cyst. No focal renal mass, urinary calcifications, or hydronephrosis. ??Bladder wall is normal. Reproductive organs: No pelvic masses. Bowel and peritoneum: Postsurgical changes of Gina-en-Y gastric bypass. Severe gaseous dilation of the sigmoid colon measuring up to 13.3 cm with stool contents distally in the rectum. No volvulus or evidence of obstruction. Normal caliber small bowel. Appendix is normal. Moderate volume peritoneal and pelvic ascites. No free air to suggest perforation. Lymph nodes: No mesenteric or retroperitoneal lymphadenopathy. Vessels: Aorta and major branches are patent without aneurysm or significant stenosis. Portal vein and superior mesenteric vein are patent. Bones and soft tissues: No acute osseous abnormality. ??No suspicious osseous lesions. 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 Plating and screw fixation over the lateral aspect of the left femur. Significant soft tissue anasarca. Procedure Note Landon Mitchell MBBS - 02/21/2024 Comparison: CT abdomen and pelvis 02/11/2024, abdominal radiograph from 1634hours Indication: marked distension of sigmoid colon on xray Technique: Volumetric helical acquisition of CT images from the lung basesthrough the symphysis pubis with IV contrast. DOSE: Total DLP = 697 mGy.cm. Findings: Lines and Tubes: Indwelling Cano catheter with tip in the bladderlumen. Lower Thorax: Bilateral pleural effusions. Segmental and compressiveatelectasis. Normal heart size. No pericardial effusion. Liver: Nodular contour and nodular contrast enhancement without focalmass. Gallbladder and biliary tree: Cholelithiasis. No intra or extrahepaticbiliary dilation. Pancreas: No focal pancreatic mass. No ductal dilation. Spleen: No splenic mass. Adrenals: Within normal limits. Kidneys, ureters and bladder: Simple left renal cyst. No focal renal mass,urinary calcifications, or hydronephrosis. Bladder wall is normal. Reproductive organs: No pelvic masses. Bowel and peritoneum: Postsurgical changes of Gina-en-Y gastric bypass.Severe gaseous dilation of the sigmoid colon measuring up to 13.3 cm withstool contents distally in the rectum. No volvulus or evidence ofobstruction. Normal caliber small bowel. Appendix is normal. Moderatevolume peritoneal and pelvic ascites. No free air to suggestperforation. Lymph nodes: No mesenteric or retroperitoneal lymphadenopathy. Vessels: Aorta and major branches are patent without aneurysm orsignificant stenosis. Portal vein and superior mesenteric vein arepatent. Bones and soft tissues: No acute osseous abnormality. No suspiciousosseous lesions. 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 Plating and screwfixation over the lateral aspect of the left femur. Significant softtissue anasarca. IMPRESSION Impression: 1. Severe gaseous dilatation of the sigmoid colon is again seen measuringup to 13.3 cm, overall similar in appearance to the exam from 02/11/2024. Noevidence of obstruction, volvulus, or perforation. Findings suggestOgilvie syndrome. 2. Postsurgical changes of Gina-en-Y gastric bypass without obviouscomplication. 3. Moderate volume peritoneal and pelvic ascites, bilateral pleuraleffusions, and severe soft tissue anasarca. 4. Cirrhotic appearance of the liver, with splenomegaly and portosystemiccollaterals. 5. Cholelithiasis without evidence of acute cholecystitis. I have personally reviewed the image(s) and initial interpretation, and Iagree with the findings as documented by the resident/fellow. Reading Radiologist: Landon Mitchell Reading Resident: Dominic Hair Autumn Jerome MD RAD CT BODY * Paracentesis (02/19/2024 2:55 PM CDT) Narrative Coco Buckley PA-C - 02/19/2024 2:55 PM CDT Coco Buckley PA-C ? 02/19/2024 ??2:55 PM Paracentesis Date/Time: 02/19/2024 2:55 PM Performed by: Coco Buckley PA-C Authorized by: [...] to verify the correct patient, procedure, equipment, telecommunications support and site/side marked as required. Initial or subsequent exam: subsequent Procedure purpose: therapeutic Indications: abdominal discomfort secondary to ascites Anesthesia: local infiltration Anesthesia: Local Anesthetic: lidocaine 1% without epinephrine Anesthetic total: 10 mL Sedation: Patient sedated: no Preparation: Patient was prepped and draped in the usual sterile fashion. Ultrasound guidance: yes Puncture site: right lower quadrant Fluid removed: 7300(ml) Fluid appearance: clear Patient tolerance: Patient tolerated [...] An image was archived. A total of 7.3 liters of straw-colored ascitic fluid was aspirated and discarded. The catheter was then removed. Patient tolerated the procedure without any immediate complications. The patient left AMA after the procedure. Per protocol, the patient received 25 grams of albumin during and after the procedure.Complications: None. Impression: Ultrasound-guided paracentesis as above. Coco Buckley PA-C PROCEDURES * IR PARACENTESIS (02/19/2024 2:54 PM CDT) Only the most recent of3 resultswithin the time period is included. Anatomical Region Laterality Modality Abdomen X-Ray Angiograph y 02/19/2024 2:53 PM CDT Impressions 02/19/2024 2:55 PM CDT Impression: Ultrasound-guided paracentesis as above. Reading Radiologist: Coco Buckley Narrative 02/19/2024 2:55 PM CDT Indication: Ascites Procedure: The risks and [...] An image was archived. A total of 7.3 liters of straw-colored ascitic fluid was aspirated and discarded. The catheter was then removed. Patient tolerated the procedure without any immediate complications. The patient left AMA after the procedure. Per protocol, the patient received 25 grams of albumin during and after the procedure. Complications: None. Procedure Note Coco Buckley PA-C - 02/19/2024 Indication: Ascites Procedure: The risks and benefits [...] fluid.An image was archived. A total of 7.3 liters of straw-colored asciticfluid was aspirated and discarded. The catheter was then removed. Patienttolerated the procedure without any immediate complications. The patientleft AMA after the procedure. Per protocol, the patient received 25 grams of albumin during and afterthe procedure. Complications: None. IMPRESSION Impression: Ultrasound-guided paracentesis as above. Reading Radiologist: Coco Buckley Francy Mc MD RAD IR * (ABNORMAL) SODIUM (02/18/2024 9:39 PM CDT) Only the most recent of2 resultswithin the time period is included. Sodium 126(L) 135 - 148 mmol/L [facility] Blood 02/18/2024 9:39 PM CDT 02/18/2024 10:05 PM CDT Francy Mc MD LABORATORY [facility] [address] [address] * OSMOLALITY,URINE-RANDOM LASHELL (02/18/2024 4:31 PM CDT) Urine Osmo 293 50 - 800 mOsm/Kg [facility] Urine 02/18/2024 4:31 PM CDT 02/18/2024 4:43 PM CDT Francy Mc MD LABORATORY [facility] [address] [address] * (ABNORMAL) SODIUM,URINE-RANDOM LASHELL (02/18/2024 4:31 PM CDT) Sodium Urine <20(L) 40 - 200 mEq/L [facility] Urine 02/18/2024 4:31 PM CDT 02/18/2024 4:43 PM CDT Francy Mc MD LABORATORY [facility] [address] [address] * TSH WITH REFLEX TO FREE T4 (02/18/2024 8:33 AM CDT) TSH 1.99 0.27 - 4.20 mIU/L [facility] Blood 02/18/2024 8:33 AM CDT 02/18/2024 5:10 PM CDT Francy Mc MD LABORATORY Performing Organization Address [facility] Co de Phone Number [facility] [address] [address] * Paracentesis (02/16/2024 3:19 PM CDT) Narrative Milan Duque PA-C - 02/16/2024 3:19 PM CDT Milan Duque PA-C ? 02/16/2024 ??3:20 PM Paracentesis Date/Time: 02/16/2024 3:19 PM Performed by: Milan Duque PA-C Authorized by: Milan Duque PA-C ??Consent: Verbal consent obtained. Written consent [...] to verify the correct patient, procedure, equipment, telecommunications support and site/side marked as required. Initial or subsequent exam: subsequent Procedure purpose: therapeutic and diagnostic Indications: abdominal discomfort secondary to ascites Anesthesia: local infiltration Anesthesia: Local Anesthetic: lidocaine 1% without epinephrine Anesthetic total: 10 mL Sedation: Patient sedated: no Preparation: Patient was prepped and draped in the usual sterile fashion. Ultrasound guidance: yes Puncture site: right lower quadrant Fluid removed: 6000(ml) Fluid appearance: serous Patient tolerance: Patient tolerated the procedure well with no immediate complications Comments: Indication: AscitesProcedure: The risks and benefits of the procedure were explained to the patient. After obtaining informed consent, the patient was placed supine on a hospital cart. Ultrasound was used to interrogate the abdomen. A large amount of ascites was seen. The right lower quadrant was then prepped and draped in usual sterile fashion. 1% lidocaine was used for local anesthesia.Under ultrasound guidance, a one step needle was advanced into the fluid. An image was archived. A total of 6 liters of cloudy-colored ascitic fluid was removed; 1L was sent for culture and the rest was discarded. The catheter was then removed.Per protocol, the patient received 31.25 grams of albumin during and after the procedure.Complications: None. Impression: Ultrasound-guided paracentesis as above. Milan Duque PA-C PROCEDURES * BODY FLUID CULTURE:INCLUDES GRAM STAIN (02/16/2024 2:56 PM CDT) Only the most recent of2 resultswithin the time period is included. Final Report No growth. [facility] Gram Stain Report PMN's seen. No organisms seen. [facility] Peritoneal Fluid PERITONEUM (SEROUS MEMBRANE) STRUCTURE / Unknown 02/16/2024 2:56 PM CDT 02/16/2024 3:54 PM CDT Francy Mc MD LAB MICROBIOLOG Y [facility] [address] [address] * BODY FLUID CELL COUNT/DIFF (02/16/2024 2:55 PM CDT) Only the most recent of2 resultswithin the time period is included. Fluid Type PT Peritoneal [facility] Comment:Normal reference ran ges have not been determined; clinical correlation is recommended. Volume PT Fluid 1,000 mL [facility] Appearance PT Clear [facility] Color bf Yellow [facility] Rbc PT Fluid <1,000 cells/ul [facility] Nuc Ct PT Fluid 167 cells/ul [facility] Neutrophil PT Fluid 16 % [facility] Lymphocytes PT Fluid 44 % [facility] Basophil PT Fluid 1 % [facility] MONO/MACS FL 33 % [facility] Other PT Fluid 6 % [facility] Comment:Others are mesotheli al cells. Peritoneal Fluid 02/16/2024 2:55 PM CDT 02/16/2024 3:43 PM CDT Francy Mc MD LABORATORY [facility] [address] [address] * FLEXIBLE SIGMOIDOSCOPY (02/15/2024 9:55 AM CDT) 02/15/2024 9:55 AM CDT Narrative [facility] - 02/15/2024 11:22 AM CDT Gastroenterology Lab Patient Name: Cathy Raymond ?Procedure Date: 02/15/2024 9:55 AM ?Date of : 1965 Admit Type: Inpatient ? Age: 58 Gender: Female Procedure: ? Flexible Sigmoidoscopy Providers: ? Ugo Rincon, Raven Reyes RN, Unknown Cherelle, 3D Specialist (3D Specialist), Olesya Whipple (Fellow) Referring MD: ?Self Referral (Referring MD) Medicines: ? Monitored Anesthesia Care Complications: ? No immediate complications. Estimated blood loss: None. Procedure: ? After obtaining informed consent, the scope was passed under direct vision. Throughout the procedure, the patient's blood pressure, pulse, and oxygen saturations were monitored continuously. The peds was introduced through the anus and advanced to the the sigmoid colon. The flexible sigmoidoscopy was accomplished without difficulty. The patient tolerated the procedure well. The quality of the bowel preparation was poor. Findings: Skin tags were found on perianal exam. The lumen of the sigmoid colon was grossly dilated. Suctioned for decompression. The exam was otherwise without abnormality. Patient Profile: ? 58yo F w/ PMH of decompensated alcoholic cirrhosis w/ ascites (MELD-Na 10) and chronic sigmoid distension presenting for decompressive flex sig (sigmoid dilated to 12cm on KUB). Patient denies abdominal pain. Impression: ?- Preparation of the colon was poor. - Dilated sigmoid colon. Succesfully Suctioned for decompression. - The examination was otherwise normal. - No specimens collected. Recommendation: ?- Return patient to hospital cardenas for ongoing care. - Advance diet as tolerated. - Aggressive bowel regimen, encourage mobility. - KUB post-procedure. Would not perform additional imaging unless indicated clinically. - Recommend surgical evaluation as this is likely to continue to happen. Attending Participation: I was present and participated during the entire procedure, including non-valencia portions. Ugo Rincon, , [id number] 02/15/2024 11:20:50 AM Olesya Whipple, , [id number] Number of Addenda: 0 Note Initiated On: 02/15/2024 9:55 AM Nataly Quinones PA-C GI LAB [facility] * Intubation/Airway (02/11/2024 10:08 PM CDT) Narrative Fan Stanley APRN, CRNA - 02/11/2024 10:08 PM CDT Fan Stanley APRN, CRNA ? 02/11/2024 10:08 PM AIRWAY/INTUBATION PROCEDURE direct laryngoscopy ??(Type: Surgical Anesthesia) Process/Method: sedated and paralyzed RSI Indications for procedure: surgery Assessment: TMD >3 finger breadths and vocal cords open and clear Preoxygenation: mask Device Device used: MAC Supporting device: ?? Blade size: 3 The patient was intubated with a 7.0 mm standard endotracheal tube inflated to seal and secured at 22 cm to Lips Grade: I Sellicks not used Narrative 1 intubation attempt(s) confirmed in 0-30 sec ?? Intubation Assessment: +ETCO2, EBBS and fog in ETT Ease of masking (I-easy to IV-difficult): I Ease of intubation (I-easy to IV-difficult): I Dentition Assessment: dentition unchanged and oral mucosa unchanged Performed by: ELECTRON BEAM MACHINE WELDER SETTER: Fan Stanley APRN, CRNA Events Anesthesia start: 02/11/2024 9:57 PM Intubation time: 02/11/2024 10:03 PM Marcus Hanna MD PROCEDURES * COLONOSCOPY-DIAGNOSTIC (02/11/2024 9:24 PM CDT) 02/11/2024 9:24 PM CDT Narrative [facility] - 02/11/2024 10:18 PM CDT Gastroenterology Lab Patient Name: Cathy Raymond ?Procedure Date: 02/11/2024 9:24 PM ?Date of : 1965 Admit Type: Inpatient ? Age: 58 Gender: Female Procedure: ? Colonoscopy Diagnostic Indications: ? Abnormal CT of the GI tract Providers: ? Lukas Lambert MD, Giselle Mays RN Referring MD: ?Self Referral (Referring MD) Medicines: ? General Anesthesia Complications: ? No immediate complications. Procedure: ? After obtaining informed consent, the scope was passed under direct vision. Throughout the procedure, the patient's blood pressure, pulse, and oxygen saturations were monitored continuously The Colonoscope was introduced through the anus and advanced to the the transverse colon for evaluation. This was the intended extent. The colonoscopy was performed without difficulty. The patient tolerated the procedure well. The quality of the bowel preparation was evaluated using the BBPS ([place] Bowel Preparation Scale) with scores of: Right Colon = 0, Transverse Colon = 0 and Left Colon = 0. The total BBPS score equals 0. The quality of the bowel preparation was inadequate. Findings: The lumen of the sigmoid colon was grossly dilated. Decompression of the colon was attempted and was successful, with complete decompression achieved. Impression: ?- Preparation of the colon was inadequate for detectionof polyps. - Dilated in the sigmoid colon with gas. This was decompressed using suction with significant improvement in patient's abdominal distension. The abdomen is no longer tense at the conclusion of the procedure. Recommendation: ?- Return patient to hospital cardenas for ongoing care. - NPO. - AXR in the morning - Consult team will evaluate in the morning. - Remainder ofrecommendations per previous GI consult note. Lukas Lambert MD, [id number] 02/11/2024 10:16:48 PM Number of Addenda: 0 Note Initiated On: 02/11/2024 9:24 PM Lukas Lambert MD GI LAB [facility] * VITAMIN D (25-OH) (02/10/2024 7:06 AM CDT) Vitamin D Total 25 Hydroxy 66 21 - 70 ng/mL [facility] Comment: Result Interpretation: <=20 ng/mL ?? Vitamin D Deficient 21-29 ng/mL ??Vitamin D Insufficient Blood 02/10/2024 7:06 AM CDT 02/10/2024 7:48 AM CDT Ileana Blanco APRN, ROTOGRAVURE PRESS OPERATOR LABORATORY [facility] [address] [address] * Paracentesis (02/08/2024 11:14 AM CDT) Narrative [...] to verify the correct patient, procedure, equipment, telecommunications support and site/side marked as required. Initial or [...] as above. Coco Buckley PA-C PROCEDURES * XR FEMUR RIGHT AP + LAT* [...] ADMIN) (02/05/2024 1:19 PM CDT) Unit Number [id number] [facility] Product Code [id number] [facility] Blood Expiration Date [id number] [facility] Blood Type 6200 [facility] Blood Type (TEXT) APOS [facility] Other 02/05/2024 1:19 PM CDT 02/05/2024 1:16 PM CDT Marcus Hanna MD BLOOD BANK ORDERABLE S (BLOOD ADMIN) [facility] [address] [address] * Intubation/Airway (02/05/2024 1:11 PM CDT) Narrative [...] Final Report Duplicate order. Patient account credited. [facility] Gram Stain Report Few PMN's seen. No organisms seen. [facility] Swab STRUCTURE OF RIGHT FOOT / Unknown 02/05/2024 10:00 AM CDT 02/05/2024 10:25 AM CDT Narrative [facility] - 02/05/2024 2:53 PM CDT Purulent drainage. Gram Stain please, aerobic, anaerobic Do you want a gram stain: Yes Autumn Jerome MD LAB MICROBIOLOGY Performing Organization Address [facility] Co de Phone Number [address] [address] * HELD MICRO SPECIMEN (02/04/2024 10:44 PM CDT) Final Report Microbiology specimen received in lab with no orders. Add-on order must be placed within 24 hours. If no orders placed, specimen will be discarded. [facility] Swab STRUCTURE OF RIGHT FOOT / Unknown 02/04/2024 10:44 PM CDT 02/04/2024 10:45 PM CDT Narrative [facility] - 02/04/2024 10:46 PM CDT Epic message sent to Autumn Jerome at 02/04/2024 22:46:13 CDT by Solitario Mckinnon MLS. Autumn Jerome MD LAB MICROBIOLOGY Performing Organization Address [facility] Co de Phone Number [address] [place] [address] * (ABNORMAL) ANAEROBE CULTURE (02/04/2024 10:44 PM CDT) Final Report Few Enterococcus faecalis isolated. No anaerobes isolated. (POS) [facility] Organism ENTEROCOCCUS FAECALIS(POS) [facility] Swab STRUCTURE OF RIGHT FOOT / Unknown 02/04/2024 10:44 PM CDT 02/05/2024 9:20 AM CDT Autumn Jerome MD LAB MICROBIOLOGY Performing Organization Address [facility] Co de Phone Number [facility] [address] [address] * BLOOD AEROBIC/ANAEROBIC CULTURE (02/04/2024 6:44 PM CDT) Only the most recent of4 resultswithin the time period is included. Pathologist [facility] Final Report No growth after 5 days. [facility] Blood (Peripheral) 02/04/2024 6:44 PM CDT 02/04/2024 10:14 PM CDT Autumn Jerome MD LAB MICROBIOLOGY Performing Organization Address [facility] Co de Phone Number [facility] [address] [address] * ANTIBODY SCREEN (02/04/2024 1:17 PM CDT) Only the most recent of2 resultswithin the time period is included. Nicky Screen Negative [facility] Blood 02/04/2024 1:17 PM CDT 02/04/2024 1:34 PM CDT Solitario Ha APRN, CRNA LAB TRANSFUSI ON SERVICES Performing Organization Address [facility] Co de Phone Number [facility] [address] [address] * BLOOD TYPING-ABO/RH (02/04/2024 1:17 PM CDT) Only the most recent of2 resultswithin the time period is included. ABORHG A POS [facility] Blood 02/04/2024 1:17 PM CDT 02/04/2024 1:34 PM CDT Solitario Ha APRN, ELECTRON BEAM MACHINE WELDER SETTER LAB TRANSFUSI ON SERVICES [facility] [address] [address] * CT RIGHT FEMUR NO IV CONTRAST (02/02/2024 10:19 PM CDT) Anatomical Region Laterality Modality Lower Extremity Computed Tomogra phy 02/02/2024 10:1 4 PM CDT Addenda Addendum by Carter Reyes MD on 02/02/2024 10:29 PM CDT ADDENDUM: 3-D reconstructions were created by the tomography technologist on the CT scanner and reviewed [...] perforation and infection ??Alternatives discussed: ??No treatment [place] protocol: ??Patient identity confirmed: ??Verbally with patient [...] CDT) Humphrey Rose MD RAD FLUORO * Sedation (02/02/2024 8:44 PM CDT) Narrative Barbara Henry MD - 02/02/2024 8:44 PM CDT Denia Juan MD ? 02/08/2024 ??3:31 PM Sedation Performed by: Denia Juan MD Authorized by: Barbara Henry MD ?? Consent: ??Consent obtained: ??Verbal ??Consent given by: ??Patient ??Risks discussed: ??Prolonged hypoxia resulting in organ damage, respiratory compromise necessitating ventilatory assistance and intubation, vomiting and nausea ??Alternatives discussed: ??Analgesia without sedation, anxiolysis and regional anesthesia [place] protocol: ??Procedure explained and questions answered to patient or proxy's satisfaction: yes ?Imaging studies available: yes ?Immediately prior to procedure a time out was called: yes ?Patient identity confirmation method: ??Verbally with patient Indications: ??Sedation purpose: ??Fracture reduction ??Procedure necessitating sedation performed by: ??Different physician ??Intended level of sedation: ??Moderate (conscious sedation) Pre-sedation assessment: ??Time since last food or drink: ??Yesterday ??NPO status caution: urgency dictates proceeding with non-ideal NPO status ?ASA classification: class 4 - patient with severe systemic disease that is a constant threat to life ?Neck mobility: normal ?Mouth opening: ??3 or more finger widths ??Pre-sedation assessments completed and reviewed: airway patency, cardiovascular function, hydration status, mental status, nausea/vomiting, pain level, respiratory function and temperature ?History of difficult intubation: no ?Pre-sedation assessment completed: ??02/04/2024 8:15 PM Immediate pre-procedure details: ??Reassessment: Immediately prior to administration of medications, the patient was re-assessed for adequacy to receive sedatives ?? Procedure details (see MAR for exact dosages): ??Sedation start time: ??02/08/2024 8:44 PM ??Preoxygenation: ??Nonrebreather mask ??Sedation: ??Propofol ??Intra-procedure monitoring: ??Blood pressure monitoring, continuous capnometry, frequent LOC assessments, frequent vital sign checks, continuous pulse oximetry and vehicle monitor technician ??Intra-procedure events: respiratory depression ?Intra-procedure management: ??Airway repositioning ??Sedation end time: ??02/04/2024 9:00 PM Post-procedure details: ??Attendance: Constant attendance by certified staff until patient recovered ?Recovery: Patient returned to pre-procedure baseline ?Post-sedation assessments completed and reviewed: airway patency, cardiovascular function, hydration status, mental status, nausea/vomiting, pain level and respiratory function ?Patient is stable for discharge or admission: yes ?Patient tolerance: ??Tolerated well, no immediate complications Barbara Henry MD PROCEDURES * MISCELLANEOUS BODY FLUID (02/02/2024 7:51 PM CDT) [facility] Result 1.3 [facility] Units BF g/dL [facility] Comment:The reference interv al(s) and other method performance specifications have not been established for this body fluid. The test result must be integrated into the clinical context for interpretation. Fluid 02/02/2024 7:51 PM CDT 02/02/2024 8:11 PM CDT Narrative [facility] - 02/02/2024 9:01 PM CDT fluid: Peritoneal Test: TP Humphrey Rose MD LABORATORY [facility] [address] [place] [address] * XR FOOT RIGHT 3 V AP/OBL/LAT* [...] (02/02/2024 5:15 PM CDT) Color YELLOW YELLOW [facility] Appearance CLOUDY(A) CLEAR [facility] Urine Glucose NEGATIVE NEGATIVE mg/dL [facility] Bili UA TRACE(A) NEGATIVE [facility] Ketones TRACE(A) NEGATIVE [facility] Specific [place] 1.024 1.003 - 1.030 [facility] Blood Ur LARGE(A) Neg-Trace [facility] PH Urine 6.0 5.0 - 7.0 [facility] Protein Ur 30(A) Neg-Trace [facility] Urobilinogen >=8(A) NORMAL EU/dL [facility] Nitrite Ur NEGATIVE NEGATIVE [facility] Leuk Est SMALL(A) Neg-Trace [facility] WBC Ur 6-10(A) 0 - 5 perHPF [facility] RBC Ur >20(A) 0 - 3 perHPF [facility] SQ EPITH 0-5 0 - 5 perHPF [facility] Bacteria UA PRESENT [facility] Comment:Presence of bacteria does not necessarily indicate a UTI. The presence of bacteria can indicate a non-clean catch urine specimen. Bacteria should be used in conjunction with other UA results and clinical presentation to assist in diagnosing an infection. Urinalysis Performed at: [facility] Urine 02/02/2024 5:15 PM CDT 02/02/2024 5:18 PM CDT Humphrey Rose MD LABORATORY Performing Organization Address [facility]/ZIP Co de Phone Number [facility] [address] [place] [address] * (ABNORMAL) URINE CULTURE (02/02/2024 5:03 PM CDT) Urine Cult Greater than 100,000 organisms/ml Escherichia coli isolated.(POS) [facility] Organism ESCHERICHIA COLI(POS) [facility] Urine 02/02/2024 5:03 PM CDT 02/02/2024 [...] MICROBIOLO GY Performing Organization Address [facility]/ZIP Co de Phone Number [facility] [address] [address] * PRECAUTIONARY TUBE (02/02/2024 5:00 PM CDT) Prec Tube Precautionary Blood Bank Specimen Received. [facility] Blood 02/02/2024 5:00 PM CDT 02/02/2024 5:11 PM CDT Raven Rock MD LAB TRANSFUSION SERV ICES [facility] [address] [place] [address] * HS TROPONIN (02/02/2024 4:01 PM CDT) Pathologist [facility] HS Troponin I <3 <=14 ng/L [facility] Blood 02/02/2024 4:01 PM CDT 02/02/2024 4:36 PM CDT Narrative [facility] - 02/02/2024 5:10 PM CDT If ordering as an add-on lab, you must call the lab. Humphrey Rose MD LABORATORY Performing Organization Address [facility]/ZIP Co de Phone Number [facility] [address] [address] * (ABNORMAL) ED CHEMISTRY LABS(NA,K,CL,CO2,GLU,CREAT,CA-IONIZED,ANION GAP) (02/02/2024 4:01 PM CDT) Pathologist [facility] Sodium 135 135 - 148 mEq/L [facility] Chloride 100 92 - 108 mEq/L [facility] AnGap 9 8 - 16 mEq/L [facility] Glucose 105(H) 70 - 100 mg/dL [facility] ICA, Actual 4.21(L) 4.40 - 5.20 mg/dL [facility] ICA, pH Corrected 4.45 4.40 - 5.20 mg/dL [facility] Creatinine 0.72 0.50 - 1.00 mg/dL [facility] BICARB 26 22 - 26 mEq/L [facility] eGFR (2020 CKD-EPI) 96 >=60 ml/min/1.7 3m2 [facility] Comment: The estimated glomerular filtration rate (eGFR) was calculated using the CKD-EPI 2020 creatinine equation, which does not include race as a factor. This equation is validated in individuals 18 years of age and older, and eGFR is normalized to a body surface area of 1.73m^2. Potassium 3.5 3.5 - 5.3 mEq/L [facility] Blood 02/02/2024 4:01 PM CDT 02/02/2024 4:15 PM CDT Humphrey Rose MD LABORATORY [facility] [address] [address] * LIPASE (02/02/2024 4:01 PM CDT) Lipase 13 13 - 60 IU/L [facility] Blood 02/02/2024 4:01 PM CDT 02/02/2024 7:02 PM CDT Humphrey Rose MD LABORATORY Performing Organization Address [facility]/ZIP Co de Phone Number [facility] [address] [address] * GLYCOSYLATED HGB - A1C (02/02/2024 4:00 PM CDT) [facility] Hemoglobin A1C 4.4 4.0 - 5.6 % [facility] Comment: Increased risk for diabetes (prediabetes): 5.7-6.4% Diabetes >=6.5% In the absence of unequivocal hyperglycemia, diagnosis requires two abnormal test results (i.e. HbA1c and glucose) or two abnormal results from specimens collected at two different timepoints. The presence of some hemoglobin variants or red cell disorders may interfere with the measurement of hemoglobin A1c (HbA1c). Estimated Average Glucose 80 68 - 114 [facility] Comment: The estimated Average Glucose (eAG) was calculated using an equation derived from a study of 507 adults with type 1, type 2, or no diabetes. Minority populations were underrepresented and children were not included. The eAG is not equivalent to a fasting glucose concentration. Blood 02/02/2024 4:00 PM CDT 02/02/2024 11:05 PM CDT Enedina Austin MD LABORATORY [facility] [address] [address] * PTT (APTT) (02/02/2024 4:00 PM CDT) Pathologist [facility] APTT 33.0 25.0 - 37.0 sec [facility] Blood 02/02/2024 4:00 PM CDT 02/02/2024 5:57 PM CDT Enedina Austin MD LABORATORY Performing Organization Address [facility] Co de Phone Number [facility] [address] [address] * ED EKG (12-LEAD) (02/02/2024 3:48 PM CDT) 02/02/2024 3:48 PM CDT Impressions [facility] CVIS EKG ORDERS - 02/02/2024 3:48 PM CDT SINUS RHYTHM LOW QRS VOLTAGE IN EXTREMITY LEADS ??[QRS DEFLECTION < 0.5 mV IN LIMB LEADS] POSSIBLE ANTERIOR MYOCARDIAL INFARCTION , PROBABLY OLD [30 ms Q WAVE IN V3/V4, OR R < 0.2 mV IN V4] BORDERLINE ECG P-R Interval 184 ms QRS Interval 78 ms QT Interval 365 ms QTC Interval 414 ms P Young Harris -12 QRS Young Harris -1 T Wave Young Harris -1 Narrative Procedure Note Lyndon Villanueva MD - 02/02/2024 IMPRESSION SINUS RHYTHM LOW QRS VOLTAGE IN EXTREMITY LEADS [QRS DEFLECTION < 0.5 mV IN LIMBLEADS] POSSIBLE ANTERIOR MYOCARDIAL INFARCTION , PROBABLY OLD [30 ms Q WAVE INV3/V4, OR R < 0.2 mV IN V4] BORDERLINE ECG P-R Interval 184 ms QRS Interval 78 ms QT Interval 365 ms QTC Interval 414 ms P Young Harris -12 QRS Young Harris -1 T Wave Young Harris -1 Humphrey Rose MD EKG Performing Organization Address [facility] Co de Phone Number [facility] CVIS EKG ORDERS * ED US ABDOMINAL/GALLBLADDER [...] OUTSIDE FILMS (02/02/2024 12:30 PM CDT) Narrative User, [id number] - 02/02/2024 1:31 PM CDT Outside Film Only Outside Provider RAD OUTSIDE FILMS * XR LOWER EXTREMITY OUTSIDE FILMS (02/02/2024 12:15 PM CDT) Only the most recent of2 resultswithin the time period is included. Narrative User, [id number] - 02/02/2024 1:32 PM CDT Outside Film Only Outside Provider RAD OUTSIDE FILMS from Last 3 Months or Most Recently Relevant to Health Maintenance Advance Directives For more information, please contact: [phone] * Full Code (Latest Code Status on [...]
--- OUTSIDE RECORDS SUMMARY | 2024-02-29 07:54 | XMS_ITS | Encounter Summary ---
Author Organization [facility] Address [address] [place] [address] Phone Care Team Providers Care Catering Associate Name Role Phone Unavailable Primary Care Provider Unavailabl e Encounter Details Date Type Department Care Team (Late st Contact Info) Description 02/26/2024 [facility] [place] [phone] Chalo Cárdenas, DO [address] [facility] [address] [place], [place] [phone] Social History Tobacco Use Types Packs/Day Years [...] [facility] [address] [place] [phone] Lia Mcclellan PA-C [address] [place] [phone] Scheduled Discharge Disposition: Discharged to home or self care (routine discharge) 03/17/2024 9:45 AM CDT [facility]ointment [facility] [address] [place] [phone] Scheduled Discharge Disposition: Discharged to home or self care (routine discharge) 03/17/2024 10:00 AM CDT Office [facility] [address] [place] [phone] Dayo Henning MD [address] [address] Scheduled Discharge Disposition: Discharged to home or self care (routine discharge) documented as of this encounter Visit Diagnoses Not on filedocumented in this encounter
--- OUTSIDE RECORDS SUMMARY | 2024-02-29 07:54 | XMS_ITS | Referral Summary ---
Author Organization [facility] Address [address] [place] [address] Phone Care Team Providers Care Oil Dispenser Name Role Phone Unavailable Primary Care Provider Unavailabl e Source Comments [employer] is fully rolled out on [place]. Last update 03/09/09.[employer] Encounters Date Type Department Care Team Description 02/26/2024 DEX MED HOSPITALIST SERV [place] [phone] Chalo Cárdenas, 02/15/2024 10:20 AM CDT Anesthesia Event OR P4 [address] [place] [address] Juve Ventura MD Eilertson, Brady D, PILATES INSTRUCTOR, LOOM OVERHAULER 02/15/2024 10:00 AM CDT - 02/15/2024 10:30 AM CDT Surgery OR P4 [address] [place] [address] Ugo Young MD GI FLEX SIG 02/11/2024 9:57 PM CDT Anesthesia Event OR P4 [address] [place] [address] Marcus Hanna MD Vega, Vanessa, SRNA 02/11/2024 9:40 PM CDT - 02/11/2024 10:10 PM CDT Surgery OR P4 [address] [place] [address] Service, Gi GI COLON DIAGNOSTIC 02/05/2024 12:52 PM CDT Anesthesia Event OR P4 [address] [place] [address] Marcus Hanna MD Bagal, Kristi, SRNA 02/05/2024 1:15 PM CDT - 02/05/2024 4:25 PM CDT Surgery OR P4 [address] [place] [address] Dayo Henning MD IM BRANDEN FEMUR 02/04/2024 2:00 PM CDT - 02/04/2024 4:57 PM CDT Surgery OR P4 [address] [place] [address] Homa Zarate MD Not Performed IM BRANDEN FEMUR 02/04/2024 2:00 PM CDT Anesthesia Event OR P4 [address] [place] [address] Malcolm Hernandez, Michelle Pablo, PILATES INSTRUCTOR, LOOM OVERHAULER 02/03/2024 Orders Only [facility] Film Room [facility] Radiology Department FRED [address] [place] [address] Provider, Outside Referral of patient (Primary Dx) 02/02/2024 Travel 02/02/2024 Orders Only [facility] Film Room [facility] Radiology Department FRED [address] [place] [address] Provider, Outside Referral of patient (Primary Dx) 02/02/2024 Orders Only [facility] MRI [address] [place] [address] Provider, Outside 02/02/2024 3:17 PM CDT - Present Hospital Encounter [facility] Orthopaedic [address] [place] [address] Humphrey Rose MD Isaksen, MD Justus Segundo, MD Malu Russ Korkor, MD Pidcock, MD Darrell Moe, Nino Lyle MD Other [...] [facility] [address] [place] [address] Lia Mcclellan PA-C [address] [facility] [address] [place] [address] Scheduled Discharge Disposition: Discharged to home or self care (routine discharge) 03/17/2024 9:45 AM CDT Appointment [facility] [address] [place] [address] Scheduled Discharge Disposition: Discharged to home or self care (routine discharge) 03/17/2024 10:00 AM CDT Office Visit [facility] [address] [place] [address] Dayo Henning MD [address] [place] [address] Scheduled Discharge Disposition: Discharged to home or self care (routine discharge) Medical Devices Implanted Type Area District Court Justice Device Identifier Shelf Expiration Date Model / Serial / Lot Freehand Drill [id number] Implanted:Qty: 1 on 02/05/2024 by Dayo Henning MD at [facility] Drill bit/kiara Right: Femur [employer] 11/04/2033 [id number] S / / [id number] Femoral Nail Retrograde [id number] Implanted:Qty: 1 on 02/05/2024 by Dayo Henning MD at [facility] Branden Right: Femur [employer] 10/04/2033 [id number] S / / [id number] 5.0x60mm [id number] Implanted:Qty: 1 on 02/05/2024 by Dayo Henning MD at [facility] Screw/Rudy t Right: Femur [employer] 06/04/2032 [id number] S / / [id number] 5.0x70mm [id number] Implanted:Qty: 1 on 02/05/2024 by Dayo Henning MD at [facility] Screw/Rudy t Right: Femur [employer] 09/03/2033 [id number] S / / [id number] 5.0x75mm Adv [id number] Implanted:Qty: 1 on 02/05/2024 by Dayo Henning MD at [facility] Screw/Rudy t Right: Femur [employer] 09/03/2033 [id number] S / / [id number] 5.0x42.5mm [id number] Implanted:Qty: 1 on 02/05/2024 by Dayo Henning MD at [facility] Screw/Rudy t Right: Femur [employer] 10/04/2033 [id number] S / / [id number] Procedures The patient is currently admitted. 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 [facility] POC Glucose 105(H) 70 - 100 mg/dL [facility] Blood 02/29/2024 6:45 AM CDT Humphrey Rose MD LABORATORY [facility] [address] [place] [address], * PHOSPHORUS (02/28/2024 6:00 AM CDT) Only the most recent of10 resultswithin the time period is included. [facility] Phosphorus 3.7 2.5 - 4.5 mg/dL [facility] Blood 02/28/2024 6:00 AM CDT 02/28/2024 6:12 AM CDT Nino Ramírez MD LABORATORY [facility] [place] [address] * (ABNORMAL) PANEL BASIC METABOLIC (BMP) (02/28/2024 6:00 AM CDT) Only the most recent of26 resultswithin the time period is included. Sodium 133(L) 135 - 148 mmol/L [facility] Potassium 3.5 3.5 - 5.3 mmol/L [facility] Chloride 102 92 - 108 mmol/L [facility] AnGap 7(L) 8 - 16 mmol/L [facility] CO2 24 22 - 30 mmol/L [facility] Glucose 87 70 - 100 mg/dL [facility] BUN 9 6 - 20 mg/dL [facility] Creatinine 0.46(L) 0.50 - 1.00 mg/dL [facility] Calcium 8.0(L) 8.6 - 10.0 mg/dL [facility] eGFR (2020 CKD-EPI) 110 >=60 ml/min/1.7 3m2 [facility] Comment: The estimated glomerular filtration rate (eGFR) was calculated using the CKD-EPI 2020 creatinine equation, which does not include race as a factor. This equation is validated in individuals 18 years of age and older, and eGFR is normalized to a body surface area of 1.73m^2. Blood 02/28/2024 6:00 AM CDT 02/28/2024 6:12 AM CDT Nino Ramírez MD LABORATORY [facility] [address] [address] * MAGNESIUM (02/28/2024 6:00 AM CDT) Only the most recent of14 resultswithin the time period is included. Magnesium 2.0 1.6 - 2.6 mg/dL [facility] Blood 02/28/2024 6:00 AM CDT 02/28/2024 6:12 AM CDT Nino Ramírez MD LABORATORY [facility] [address] [address] * CALCIUM,IONIZED (02/28/2024 6:00 AM CDT) Only the most recent of3 resultswithin the time period is included. PH 7.38 7.32 - 7.42 [facility] ICA, Actual 4.57 4.40 - 5.20 mg/dL [facility] ICA, pH Corrected 4.52 4.40 - 5.20 mg/dL [facility] Blood 02/28/2024 6:00 AM CDT 02/28/2024 6:15 AM CDT Narrative [facility] - 02/28/2024 6:35 AM CDT Send specimen on ice! Nino Ramírez MD LABORATORY [facility] [address] [place] [address] * XR PICC LINE PLACEMENT CHECK RIGHT [...] RN Authorized by: Nino Ramírez MD ?? [place] Protocol: ??Verbal consent obtained?: Yes ?Written consent [...] total length, 2 cm out secured with [id number]; AC to IS: 5 cm; Circumference 10 cm above AC: 24 cm) ??Catheter claims supervisor: ??Bard ??Lot Number: ??[id number] ??Pre-procedure: landmarks identified ?Ultrasound guidance: Yes ?Number [...] of6 resultswithin the time period is included. WBC 3.37(L) 4.00 - 10.00 k/cmm [facility] RBC 3.03(L) 3.90 - 5.20 m/cmm [facility] Hgb 9.1(L) 11.5 - 15.7 g/dL [facility] Hematocrit 29.5(L) 34.0 - 45.0 % [facility] MCV 97.4 80.0 - 100.0 fL [facility] MCH 30.0 25.0 - 32.0 pg [facility] MCHC 30.8(L) 31.0 - 36.0 g/dL [facility] RDW 14.4 11.5 - 14.5 % [facility] Plt 125(L) 150 - 400 k/cmm [facility] MPV 9.3 6.5 - 12.5 fL [facility] Automated Abs Neutrophil 1.31(L) 1.70 - 6.50 k/cmm [facility] Comment:Preliminary ANC, Fin al Result to Follow Abs Immature Granulocyte 0.01 0.00 - 0.09 k/cmm [facility] Comment:The Immature Granulo cyte Absolute count contains metamyelocytes and myelocytes. Abs Neutrophil 1.31(L) 1.70 - 6.50 k/cmm [facility] Abs Lymphocyte 1.63 0.80 - 4.00 k/cmm [facility] Abs Monocyte 0.32 0.20 - 1.00 k/cmm [facility] Abs Eosinophil 0.09 0.00 - 0.60 k/cmm [facility] Abs Basophil 0.01 0.00 - 0.20 k/cmm [facility] Blood 02/27/2024 7:16 AM CDT 02/27/2024 7:35 AM CDT Ernestine Toribio MD LABORATORY [facility] [address] [address] * TRIGLYCERIDE (02/27/2024 7:16 AM CDT) Triglyceride 138 <=150 mg/dL [facility] Comment: Interpretive Data <150 Normal 150-199 Borderline high 200-499 High >=500 Very high Blood 02/27/2024 7:16 AM CDT 02/27/2024 7:35 AM CDT Ernestine Toribio MD LABORATORY Performing Organization Address [facility] Co de Phone Number [facility] [address] [address] * POTASSIUM (02/26/2024 4:52 PM CDT) Only the most recent of2 resultswithin the time period is included. Potassium 4.2 3.5 - 5.3 mmol/L [facility] Blood 02/26/2024 4:52 PM CDT 02/26/2024 5:19 PM CDT Ernestine Toribio MD LABORATORY Performing Organization Address [facility] de Phone Number [address] [address] * XR ABDOMEN 1 VIEW* (02/26/2024 10:16 [...] of14 resultswithin the time period is included. PT 16.8(H) 9.0 - 12.5 sec [facility] INR 1.5(H) 0.8 - 1.1 [facility] Comment: Warfarin Therapeutic Range: Standard Intensity: 2.0 - 3.0 High Intensity: 2.5 - 3.5 Blood 02/24/2024 11:2 5 AM CDT 02/24/2024 11:56 AM CDT Ernestine Toribio MD LABORATORY [facility] [address] [place] [address] * (ABNORMAL) PANEL HEPATIC FUNCTION (02/24/2024 11:25 AM CDT) Only the most recent of16 resultswithin the time period is included. Total Protein 5.9(L) 6.4 - 8.3 g/dL [facility] Albumin 2.6(L) 3.8 - 5.1 g/dL [facility] Bili Total 0.6 <=1.2 mg/dL [facility] Bili Direct 0.2 <=0.3 mg/dL [facility] Alk Phos 123(H) 35 - 104 IU/L [facility] Comment:No reference range e stablished for patients <18 years old. ALT (SGPT) <5 <=33 IU/L [facility] AST(SGOT) 27 5 - 40 IU/L [facility] Blood 02/24/2024 11:2 5 AM CDT 02/24/2024 11:56 AM CDT Ernestine Toribio MD LABORATORY Performing Organization Address [facility] Co de Phone Number [facility] [address] [address] * (ABNORMAL) CBC WITH PLATELET (02/23/2024 8:46 AM CDT) Only the most recent of17 resultswithin the time period is included. WBC 3.17(L) 4.00 - 10.00 k/cmm [facility] RBC 3.23(L) 3.90 - 5.20 m/cmm [facility] Hgb 9.7(L) 11.5 - 15.7 g/dL [facility] Hematocrit 31.0(L) 34.0 - 45.0 % [facility] MCV 96.0 80.0 - 100.0 fL [facility] MCH 30.0 25.0 - 32.0 pg [facility] MCHC 31.3 31.0 - 36.0 g/dL [facility] RDW 14.9(H) 11.5 - 14.5 % [facility] Plt 138(L) 150 - 400 k/cmm [facility] MPV 10.4 6.5 - 12.5 fL [facility] Blood 02/23/2024 8:46 AM CDT 02/23/2024 9:23 AM CDT Francy Mc MD LABORATORY Performing Organization Address [facility] Co de Phone Number [facility] [address] [address] * LACTATE (LACTIC ACID) (02/21/2024 8:38 AM CDT) Only the most recent of10 resultswithin the time period is included. Lactate 1.3 0.7 - 2.1 mmol/L [facility] Blood 02/21/2024 8:38 AM CDT 02/21/2024 8:49 AM CDT Narrative [facility] - 02/21/2024 8:57 AM CDT Send specimen on ice! Nikos Ferrer MD LABORATORY [facility] [address] [place] [address] * (ABNORMAL) HEMOGLOBIN (02/20/2024 8:37 PM CDT) Only the most recent of2 resultswithin the time period is included. Hgb 8.7(L) 11.5 - 15.7 g/dL [facility] Blood 02/20/2024 8:37 PM CDT 02/20/2024 9:04 PM CDT Francy Mc MD LABORATORY Performing Organization Address [facility]/ZIP Co de Phone Number [facility] [address] [address] * CT ABDOMEN/PELVIS W/IV CON (02/20/2024 7:05 [...] to verify the correct patient, procedure, equipment, accounting support specialist and site/side marked as required. [...] included. Sodium 126(L) 135 - 148 mmol/L [facility] Blood 02/18/2024 9:39 PM CDT 02/18/2024 10:05 PM CDT Francy Mc MD LABORATORY Performing Organization Address [facility] Co de Phone Number [facility] [address] [address] * OSMOLALITY,URINE-RANDOM LASHELL (02/18/2024 4:31 PM CDT) Urine Osmo 293 50 - 800 mOsm/Kg [facility] Urine 02/18/2024 4:31 PM CDT 02/18/2024 4:43 PM CDT Francy Mc MD LABORATORY Performing Organization Address [facility] Co de Phone Number [facility] [address] [address] * (ABNORMAL) SODIUM,URINE-RANDOM LASHELL (02/18/2024 4:31 PM CDT) Sodium Urine <20(L) 40 - 200 mEq/L [facility] Urine 02/18/2024 4:31 PM CDT 02/18/2024 4:43 PM CDT Francy Mc MD LABORATORY Performing Organization Address [facility]/ZIP Co de Phone Number [address] [address] * TSH WITH REFLEX TO FREE T4 (02/18/2024 8:33 AM CDT) TSH 1.99 0.27 - 4.20 mIU/L [facility] Blood 02/18/2024 8:33 AM CDT 02/18/2024 5:10 PM CDT Francy Mc MD LABORATORY Performing Organization Address [facility] Co de Phone Number [address] [address] * Paracentesis (02/16/2024 3:19 PM CDT) Narrative [...] to verify the correct patient, procedure, equipment, accounting support specialist and site/side marked as required. [...] period is included. Final Report No growth. [facility] Gram Stain Report PMN's seen. No organisms seen. [facility] Peritoneal Fluid PERITONEUM (SEROUS MEMBRANE) STRUCTURE / Unknown 02/16/2024 2:56 PM CDT 02/16/2024 3:54 PM CDT Francy Mc MD LAB MICROBIOLOG Y [facility] [address] [address] * BODY FLUID CELL COUNT/DIFF (02/16/2024 2:55 PM CDT) Only the most recent of2 resultswithin the time period is included. Fluid Type PT Peritoneal [facility] Comment:Normal reference ran ges have not been determined; clinical correlation is recommended. Volume PT Fluid 1,000 mL [facility] Appearance PT Clear [facility] Color bf Yellow [facility] Rbc PT Fluid <1,000 cells/ul [facility] Nuc Ct PT Fluid 167 cells/ul [facility] Neutrophil PT Fluid 16 % [facility] Lymphocytes PT Fluid 44 % [facility] Basophil PT Fluid 1 % [facility] MONO/MACS FL 33 % [facility] Other PT Fluid 6 % [facility] Comment:Others are mesotheli al cells. Peritoneal Fluid 02/16/2024 2:55 PM CDT 02/16/2024 3:43 PM CDT Francy Mc MD LABORATORY [facility] [address] [address] * FLEXIBLE SIGMOIDOSCOPY (02/15/2024 9:55 AM CDT) 02/15/2024 9:55 AM CDT Narrative [facility] GI - 02/15/2024 11:22 AM CDT Gastroenterology Lab Patient Name: Cathy Raymond ?Procedure Date: 02/15/2024 9:55 AM ?Date of : 1965 Admit Type: Inpatient ? Age: 58 Gender: Female Procedure: ? Flexible Sigmoidoscopy Providers: ? Ugo Rincon, Raven Reyes RN, Unknown Cherelle, Eap Consultant (Eap Consultant), Olesya Whipple (Fellow) Referring MD: ?Self Referral [...] procedure, including non-valencia portions. Ugo Rincon, , [phone] 02/15/2024 11:20:50 AM Olesya Whipple, , [phone] Number of Addenda: 0 Note Initiated On: 02/15/2024 9:55 AM Nataly Quinones PA-C GI LAB [facility] * Intubation/Airway (02/11/2024 10:08 PM CDT) [...] unchanged and oral mucosa unchanged Performed by: LOOM OVERHAULER: Fan Stanley APRN, CRNA Events Anesthesia start: 02/11/2024 9:57 PM Intubation time: 02/11/2024 10:03 PM Marcus Hanna MD PROCEDURES * COLONOSCOPY-DIAGNOSTIC (02/11/2024 9:24 PM CDT) 02/11/2024 9:24 PM CDT Narrative [facility] - 02/11/2024 10:18 PM CDT Gastroenterology Lab Patient Name: Cathy Raymond ?Procedure Date: 02/11/2024 9:24 PM ?Date of : 1965 Admit Type: Inpatient ? Age: 58 Gender: Female Procedure: ? Colonoscopy Diagnostic Indications: ? Abnormal CT of the GI tract Providers: ? Lukas Lambert MD, Giselle Mays, GEOFF Referring MD: ?Self Referral (Referring MD) Medicines: [...] bowel preparation was evaluated using the BBPS ([place] Bowel Preparation Scale) with scores of: Right [...] previous GI consult note. Lukas Lambert MD, [phone] 02/11/2024 10:16:48 PM Number of Addenda: 0 Note Initiated On: 02/11/2024 9:24 PM Lukas Lambert MD GI LAB Performing Organization Address [facility] Co de Phone Number [facility] * VITAMIN D (25-OH) (02/10/2024 7:06 AM CDT) Vitamin D Total 25 Hydroxy 66 21 - 70 ng/mL [facility] Comment: Result Interpretation: <=20 ng/mL ?? Vitamin D Deficient 21-29 ng/mL ??Vitamin D Insufficient Blood 02/10/2024 7:06 AM CDT 02/10/2024 7:48 AM CDT Ileana Blanco APRN, PARTS COUNTER SALES PERSON LABORATORY Performing Organization Address [facility] Co de Phone Number [facility] [address] [address] * Paracentesis (02/08/2024 11:14 AM CDT) Narrative [...] to verify the correct patient, procedure, equipment, accounting support specialist and site/side marked as required. [...] Impression: Ultrasound-guided paracentesis as above. Coco Buckley RAYMON-C PROCEDURES * XR FEMUR RIGHT AP + [...] ADMIN) (02/05/2024 1:19 PM CDT) Unit Number [id number] [facility] Product Code [id number] [facility] Blood Expiration Date [facility] Blood Type 6200 [facility] Blood Type (TEXT) APOS [facility] Other 02/05/2024 1:19 PM CDT 02/05/2024 1:16 PM CDT Marcus Hanna MD BLOOD BANK ORDERABLE S (BLOOD ADMIN) [facility] [place] [address] * Intubation/Airway (02/05/2024 1:11 PM CDT) Narrative [...] unchanged and oral mucosa unchanged Performed by: LOOM OVERHAULER: Cely Friend APRN, BIBI Events Anesthesia start: 02/05/2024 12:52 PM Intubation time: 02/05/2024 12:59 PM Marcus Hanna MD PROCEDURES * WOUND CULTURE:GRAM STAIN OPTIONAL (02/05/2024 10:00 AM CDT) Only the most recent of2 resultswithin the time period is included. Final Report Duplicate order. Patient account credited. [facility] Gram Stain Report Few PMN's seen. No organisms seen. [facility] Swab STRUCTURE OF RIGHT FOOT / Unknown 02/05/2024 10:00 AM CDT 02/05/2024 10:25 AM CDT Narrative [facility] - 02/05/2024 2:53 PM CDT Purulent drainage. Gram Stain please, aerobic, anaerobic Do you want a gram stain: Yes Autumn Jerome MD LAB MICROBIOLOGY Performing Organization Address [facility] Co de Phone Number [facility] [address] [address] * HELD MICRO SPECIMEN (02/04/2024 10:44 PM CDT) Final Report Microbiology specimen received in lab with no orders. Add-on order must be placed within 24 hours. If no orders placed, specimen will be discarded. [facility] Swab STRUCTURE OF RIGHT FOOT / Unknown 02/04/2024 10:44 PM CDT 02/04/2024 10:45 PM CDT Narrative [facility] - 02/04/2024 10:46 PM CDT Epic message sent to Autumn Jerome at 02/04/2024 22:46:13 CDT by Solitario Mckinnon MLS. Autumn Jerome MD LAB MICROBIOLOGY Performing Organization Address City/[facility] Co de Phone Number [address] [address] * (ABNORMAL) ANAEROBE CULTURE (02/04/2024 10:44 PM CDT) Final Report Few Enterococcus faecalis isolated. No anaerobes isolated. (POS) [facility] Organism ENTEROCOCCUS FAECALIS(POS) [facility] Swab STRUCTURE OF RIGHT FOOT / Unknown 02/04/2024 10:44 PM CDT 02/05/2024 9:20 AM CDT Autumn Jerome MD LAB MICROBIOLOGY Performing Organization Address [facility] Co de Phone Number [facility] [address] [address] * BLOOD AEROBIC/ANAEROBIC CULTURE (02/04/2024 6:44 PM CDT) Only the most recent of4 resultswithin the time period is included. Final Report No growth after 5 days. [facility] Blood (Peripheral) 02/04/2024 6:44 PM CDT 02/04/2024 10:14 PM CDT Autumn Jerome MD LAB MICROBIOLOGY Performing Organization Address [facility] Co de Phone Number [facility] [address] [address] * ANTIBODY SCREEN (02/04/2024 1:17 PM CDT) Only the most recent of2 resultswithin the time period is included. Nicky Screen Negative [facility] Blood 02/04/2024 1:17 PM CDT 02/04/2024 1:34 PM CDT Solitario Ha APRN, CRNA LAB TRANSFUSI ON SERVICES Performing Organization Address [facility] Co de Phone Number [facility] [address] [address] * BLOOD TYPING-ABO/RH (02/04/2024 1:17 PM CDT) Only the most recent of2 resultswithin the time period is included. ABORHG A POS [facility] Blood 02/04/2024 1:17 PM CDT 02/04/2024 1:34 PM CDT Solitario Ha APRN, BIBI LAB TRANSFUSI ON SERVICES [facility] [address] [place] [address] * CT RIGHT FEMUR NO IV CONTRAST (02/02/2024 10:19 PM CDT) Anatomical Region Laterality Modality Lower Extremity Computed Tomogra phy 02/02/2024 10:1 4 PM CDT Addenda Addendum by Carter Reyes MD on 02/02/2024 10:29 PM CDT ADDENDUM: 3-D reconstructions were created by the chemistry technologist on the CT scanner and reviewed [...] perforation and infection ??Alternatives discussed: ??No treatment [place] protocol: ??Patient identity confirmed: ??Verbally with patient [...] ??Analgesia without sedation, anxiolysis and regional anesthesia [place] protocol: ??Procedure explained and questions answered to [...] vital sign checks, continuous pulse oximetry and playground monitor ??Intra-procedure events: respiratory depression ?Intra-procedure management: ??Airway [...] MISCELLANEOUS BODY FLUID (02/02/2024 7:51 PM CDT) [facility] Result 1.3 [facility] Units BF g/dL [facility] Comment:The reference interv al(s) and other method performance specifications have not been established for this body fluid. The test result must be integrated into the clinical context for interpretation. Fluid 02/02/2024 7:51 PM CDT 02/02/2024 8:11 PM CDT Narrative [facility] - 02/02/2024 9:01 PM CDT fluid: Peritoneal Test: TP Humphrey Rose MD LABORATORY [facility] [address] [address] * XR FOOT RIGHT 3 V AP/OBL/LAT* [...] (02/02/2024 5:15 PM CDT) Color YELLOW YELLOW [facility] Appearance CLOUDY(A) CLEAR [facility] Urine Glucose NEGATIVE NEGATIVE mg/dL [facility] Bili UA TRACE(A) NEGATIVE [facility] Ketones TRACE(A) NEGATIVE [facility] Specific [place] 1.024 1.003 - 1.030 [facility] Blood Ur LARGE(A) Neg-Trace [facility] PH Urine 6.0 5.0 - 7.0 [facility] Protein Ur 30(A) Neg-Trace [facility] Urobilinogen >=8(A) NORMAL EU/dL [facility] Nitrite Ur NEGATIVE NEGATIVE [facility] Leuk Est SMALL(A) Neg-Trace [facility] WBC Ur 6-10(A) 0 - 5 perHPF [facility] RBC Ur >20(A) 0 - 3 perHPF [facility] SQ EPITH 0-5 0 - 5 perHPF [facility] Bacteria UA PRESENT [facility] Comment:Presence of bacteria does not necessarily indicate a UTI. The presence of bacteria can indicate a non-clean catch urine specimen. Bacteria should be used in conjunction with other UA results and clinical presentation to assist in diagnosing an infection. Urinalysis Performed at: [facility] Urine 02/02/2024 5:15 PM CDT 02/02/2024 5:18 PM CDT Humphrey Rose MD LABORATORY [facility] [address] [address] * (ABNORMAL) URINE CULTURE (02/02/2024 5:03 PM CDT) Urine Cult Greater than 100,000 organisms/ml Escherichia coli isolated.(POS) [facility] Organism ESCHERICHIA COLI(POS) [facility] Urine 02/02/2024 5:03 PM CDT [...] MD LAB MICROBIOLO GY Performing Organization Address City/[facility] Co de Phone Number [facility] [address] [address] * PRECAUTIONARY TUBE (02/02/2024 5:00 PM CDT) Prec Tube Precautionary Blood Bank Specimen Received. [facility] Blood 02/02/2024 5:00 PM CDT 02/02/2024 5:11 PM CDT [place] MD LAB TRANSFUSION SERV ICES Performing Organization Address [facility] Co de Phone Number [facility] [address] [address] * HS TROPONIN (02/02/2024 4:01 PM CDT) HS Troponin I <3 <=14 ng/L [facility] Blood 02/02/2024 4:01 PM CDT 02/02/2024 4:36 PM CDT Narrative [facility] - 02/02/2024 5:10 PM CDT If ordering as an add-on lab, you must call the lab. Humphrey Rose MD LABORATORY [facility] [address] [place] [address] * (ABNORMAL) ED CHEMISTRY LABS(NA,K,CL,CO2,GLU,CREAT,CA-IONIZED,ANION GAP) (02/02/2024 4:01 PM CDT) Sodium 135 135 - 148 mEq/L [facility] Chloride 100 92 - 108 mEq/L [facility] AnGap 9 8 - 16 mEq/L [facility] Glucose 105(H) 70 - 100 mg/dL [facility] ICA, Actual 4.21(L) 4.40 - 5.20 mg/dL [facility] ICA, pH Corrected 4.45 4.40 - 5.20 mg/dL [facility] Creatinine 0.72 0.50 - 1.00 mg/dL [facility] BICARB 26 22 - 26 mEq/L [facility] eGFR (2020 CKD-EPI) 96 >=60 ml/min/1.7 3m2 [facility] Comment: The estimated glomerular filtration rate (eGFR) was calculated using the CKD-EPI 2020 creatinine equation, which does not include race as a factor. This equation is validated in individuals 18 years of age and older, and eGFR is normalized to a body surface area of 1.73m^2. Potassium 3.5 3.5 - 5.3 mEq/L [facility] Blood 02/02/2024 4:01 PM CDT 02/02/2024 4:15 PM CDT Humphrey Rose MD LABORATORY Performing Organization Address City/[facility]/ZIP Co de Phone Number [facility] [address] [address] * LIPASE (02/02/2024 4:01 PM CDT) Lipase 13 13 - 60 IU/L [facility] Blood 02/02/2024 4:01 PM CDT 02/02/2024 7:02 PM CDT Humphrey Rose MD LABORATORY Performing Organization Address [facility]/ZIP Co de Phone Number [facility] [address] [address] * GLYCOSYLATED HGB - A1C (02/02/2024 4:00 PM CDT) Pathologist [facility] Hemoglobin A1C 4.4 4.0 - 5.6 % [facility] Comment: Increased risk for diabetes [...] Estimated Average Glucose 80 68 - 114 [facility] Comment: The estimated Average Glucose (eAG) was calculated using an equation derived from a study of 507 adults with type 1, type 2, or no diabetes. Minority populations were underrepresented and children were not included. The eAG is not equivalent to a fasting glucose concentration. Blood 02/02/2024 4:00 PM CDT 02/02/2024 11:05 PM CDT Enedina Austin MD LABORATORY Performing Organization Address [facility]/ZIP Co de Phone Number [facility] [address] [address] * PTT (APTT) (02/02/2024 4:00 PM CDT) APTT 33.0 25.0 - 37.0 sec [facility] Blood 02/02/2024 4:00 PM CDT 02/02/2024 5:57 PM CDT Enedina Austin MD LABORATORY Performing Organization Address [facility] Co de Phone Number [facility] [address] [place] [address] * ED EKG (12-LEAD) (02/02/2024 3:48 PM CDT) 02/02/2024 3:48 PM CDT Impressions [facility] CVIS EKG ORDERS - 02/02/2024 3:48 [...] 365 ms QTC Interval 414 ms P [place] -12 QRS [place] -1 T Wave [place] -1 Narrative Procedure Note Lyndon Villanueva MD - 02/02/2024 IMPRESSION SINUS RHYTHM LOW QRS VOLTAGE IN EXTREMITY LEADS [QRS DEFLECTION < 0.5 mV IN LIMBLEADS] POSSIBLE ANTERIOR MYOCARDIAL INFARCTION , PROBABLY OLD [30 ms Q WAVE INV3/V4, OR R < 0.2 mV IN V4] BORDERLINE ECG P-R Interval 184 ms QRS Interval 78 ms QT Interval 365 ms QTC Interval 414 ms P [place] -12 QRS [place] -1 T Wave [place] -1 Humphrey Rose MD EKG Performing Organization Address [facility] Co de Phone Number [facility] CVIS EKG ORDERS * ED US [...] OUTSIDE FILMS (02/02/2024 12:30 PM CDT) Narrative [id number] - 02/02/2024 1:31 PM CDT Outside Film Only Outside Provider RAD OUTSIDE FILMS * XR LOWER EXTREMITY OUTSIDE FILMS (02/02/2024 12:15 PM CDT) Only the most recent of2 resultswithin the time period is included. Narrative User, [email or web address]-Cghxvj-Uiuwjrwts - 02/02/2024 1:32 PM CDT Outside Film Only Outside Provider RAD OUTSIDE FILMS from Last 3 Months or Most Recently Relevant to Health Maintenance Advance Directives For more information, please contact: [phone] * Full Code (Latest Code Status on [...]
--- OUTSIDE RECORDS SUMMARY | 2024-02-29 07:54 | XMS_ITS | Encounter Summary ---
Author Organization [facility] Address [address] [place] [address] Phone Care Team Providers Care Paper Cup Machine Operator Name Role Phone Unavailable Primary Care Provider Unavailabl e Reason for Visit * Auth/Cert (Routine) Specialty Diagnoses / Procedures Referred By Yulissa t Referred To Contact ORTHOPEDICS Diagnoses Acute cystitis with hematuria Other fracture of right femur, initial encounter for closed fracture ([facility]) Humphrey Rose MD [address] [place] [address] [facility] [address] [place] [address] G3.[address] [place] [address] Referral ID Status Reason Start Date Expiration Date Visits Re quested Visits Authorized [id number] 1 1 Encounter Details Date Type Department Care Team (Late st Contact Info) Description 02/15/2024 10:20 AM CDT Anesthesia Event OR P4 [address] [place] [address] P4.[address] [place], [place] [phone] Juve Ventura MD [address] [place], [place] [phone] Fan Stanley, DRYING OVEN TENDER, HOSPICE CLINICAL MARKETER [address] [place] [id number] Anesthesia Record Procedure Summary Procedure Name Responsible Anesthesiologist Anesthesia Start Time Anesthesia Stop Time GI FLEX SIG (Endoscopic) Juve Ventura MD 02/15/24 1020 02/15/24 1046 Events Date Time Event Comment 02/15/2024 1020 Anesthetic plan discussed with Anesthesiologist 1020 Pre-op End 1020 An Start 1027 An Start Data 1027 IOPAE The intraoperat velasquez pre-anesthetic evaluation was completed with no changes noted from the pre-operative anesthesia evaluation. 1035 No Antibiotic Needed The pat ient has been evaluated by the Surgeon and no antibiotics are needed for surgery. 1041 an stop data 1046 An Stop Meds Name Total lidocaine 2% injection 40 mg propofol (DIPRIVAN) inFUSION 78.88 mg lactated ringers infusion 300 mL * Agents No agents on file. * Blood No blood administrations on file. Lines, Drains, and Airways Type Details Placement Removal Rash 02/02/24; 2347; groin 02/02/24 2 347 by Chelsi Mehta RN Wound 02/03/24; 0636; [...] Right 02/05/24 1443 by Kiley Sosa RN Urinary Catheter 02/07/24; 2350; Urin keli Retention (Post void volume consistently greater than 350 mL); 16; indwelling single lumen catheter; Placed in Unit (inserted by GEOFF Kovacs RN per note) 02/07/24 235 by Willis Méndez RN Peripheral IV 02/11/24; 1999; Yes; 20 gauge, 1 3/4 in length; Anterior, Right; Upper Arm; 1; Placed in Unit 02/11/241999 by Casper Vazquez RN Wound 02/03/24; 0104; Pret ibial; Left; 02/17/24; 1428 02/03/24 0104 by Chelsi Mehta RN 02/17/24 1428 by Natacha Bang RN documented in this encounter Social History [...] OR Notes * Anesthesia Postprocedure Evaluation - Juve Ventura MD - 02/15/2024 11:39 AM CDT Anesthesia Post Eval Patient: Cathy Raymond Procedure(s) Performed: GI FLEX SIG (Endoscopic) I've examined the patient and determined that he[facility] is medically [facility] Patient status: Post-procedure vital signs reviewed and stable Level of Consciousness: Awake Post-op pain: Adequate Respiratory: Stable Cardiovascular: Stable PONV status: none Fluid status: Acceptable Last Vitals: Vitals Value Taken Time BP 93/64 02/15/24 1100 Temp 36 ??C (96.8 ??F) 02/15/24 1045 Pulse 68 02/15/24 1100 Resp 21 02/15/24 1100 SpO2 98 % 02/15/24 1100 * Anesthesia Preprocedure Evaluation - Juve Ventura MD - 02/15/2024 10:20 AM CDT Anesthesia Pre-Evaluation Summary Statement: This is a 58 y.o. year old patient scheduled for GI FLEX SIG (Endoscopic). Anesthesia Evaluation Internal or external H&P reviewed, patient examined and changes and/or additions made as needed Anesthesia Considerations , Negative for Anesthesia complications Pulmonary - negative ROS and normal exam Neurological - negative ROS Psychiatric (+) substance abuse, alcohol abuse Cardiovascular - negative ROS Rhythm: regular Rate: normal Endo - negative ROS Musculoskeletal HEENT GI (+) liver disease Hematologic/Onc - negative ROS /Renal/Geophysical Manager Airway Mallampati: II TM distance: >3 FB Neck ROM: full Mouth Opening: good Dental (+) chipped teeth, missing teeth, loose teeth and poor dentition Risk of dental damage discussed with patient/guardian who acknowledges understanding. OB Other Physical Exam Anesthesia Plan ASA 4 MAC Post-op Care: routine analgesia Anesthetic plan and risks discussed with patient. Plan discussed with HOSPICE CLINICAL MARKETER. Vitals: 02/15/24 0957 BP: 100/59 Pulse: Resp: Temp: SpO2: documented in this encounter Miscellaneous Notes * Anesthesia Handoff Note - Fan Stanley APRN, HOSPICE CLINICAL MARKETER - 02/15/2024 10:46 AM CDT Anesthesia Post Handoff Patient: Cathy Raymond Procedure(s) Performed: GI FLEX SIG (Endoscopic) Patient was stable and nail beds/oral mucosa pink at time of handoff. Patient location: PACU Transportation: Patient was not placed on High Flow Oxygen. Anesthesia Type: MAC Patient did not meet fast track criteria. Report to RN () The nurse's questions were answered. Last Vitals: Vitals: 02/15/24 0957 BP: 100/59 Pulse: Resp: Temp: SpO2: documented in this encounter Plan of Treatment Upcoming Encounters Date Type Department Care Team (Late st Contact Info) Description 03/03/2024 10:00 AM CDT [facility] [address] [place] [phone] Lia Mcclellan PA-C [address] [address] Scheduled Discharge Disposition: Discharged to home or self care (routine discharge) 03/17/2024 9:45 AM CDT [facility]ointment [facility] [address] [place] [address] Scheduled Discharge Disposition: Discharged to home or self care (routine discharge) 03/17/2024 10:00 AM CDT [facility] [address] [place] [phone] Dayo Henning MD [address] [place] [address] Scheduled Discharge Disposition: Discharged to home or self care (routine discharge) documented as of this encounter Visit Diagnoses Not on filedocumented in this encounter Administered Medications Inactive Administered Medications - up to 3 most recent administrations Medication Order MAR Action Action Date Dose Rate Site lactated ringers infusion Intravenous, PERIOP CONTINUOUS, Starting on Thu02/15/24 at 1035, Until Thu02/15/24 at 1046 New Bag 02/15/2024 10:20 AM CDT lidocaine 2% injection Intravenous, INTRA-OP PRN ONCE MAY REPEAT, Starting on Thu02/15/24 at 1029, Until Thu02/15/24 at 1046 Given 02/15/2024 10:29 AM CDT 40 mg propofol 10 mg/mL Infusion PERIOP CONTINUOUS, Starting on Thu02/15/24 at 1035, Until Thu02/15/24 at 1046, Intravenous Infusing 02/15/2024 10:33 AM CDT 100 mcg/kg/min 59.04 mL/hr New Bag 02/15/2024 10:29 AM CDT 150 mcg/kg/min 88.56 mL /hr documented in this encounter
--- OUTSIDE RECORDS SUMMARY | 2024-02-29 07:56 | XMS_ITS | Encounter Summary ---
Author Organization [facility] Address [address] [place] [address] Phone Care Team Providers Care Bun Panner Name Role Phone Unavailable Primary Care Provider Unavailabl e Reason for Visit * Reason Comments Leg Deformity * Auth/Cert (Routine) Specialty Diagnoses / Procedures Referred By Contac t Referred To Contact ORTHOPEDICS Diagnoses Acute cystitis with hematuria Other fracture of right femur, initial encounter for closed fracture (CMS) Humphrey Rose MD [address] [place] [address] Med [facility](G3) [address] [facility] [address] [place] [address] Referral ID Status Reason Start Date Expiration Date Visits Re quested Visits Authorized [id number] 1 1 Encounter Details Date Type Department Care Team (Late st Contact Info) Description 02/15/2024 10:00 AM CDT - 02/15/2024 10:30 AM CDT Surgery OR P4 [address] [facility] [address] [place] [address] Ugo Young MD [address] [place] [address] GI FLEX SIG Social History Tobacco Use Types Packs/Day Years [...] Sign Reading Time Taken Comments Blood Pressure 100/59 02/15/2024 9:57 AM CDT Pulse 79 02/15/2024 7:35 AM CDT Temperature 35.8 ??C (96.4 ??F) 02/15/2024 7:35 AM CD T Respiratory Rate 18 02/15/2024 7:35 AM CDT Oxygen Saturation 96% 02/15/2024 7:35 AM CDT Inhaled Oxygen Concentration - - Weight 98.4 kg (217 lb) 02/02/2024 11:39 PM CDT Height 172.7 cm (5' 8) 02/02/2024 11:39 PM CDT Body Mass Index 32.99 02/02/2024 11:39 PM CDT documented in this encounter Progress Notes * Zeus Ozuna MD - 02/28/2024 10:39 AM CDT [facility] PROGRESS NOTE - MS4/PGY-1 SUMMARY: Catyh Raymond is a 58 y.o. female with decompensated cirrhosis with ascites, neuropathy with neurogenic bowel and bladder, alcohol use d/o, hypothyroidism, T2DM, MAX, gastric bypass 2002 with history of marginal ulcer, osteoporosis who was admitted on 02/02/2024 after fall from standing height w/left femur fx s/p IMN w/ ortho 02/04. On admission there was concern for sigmoid volvulus for which GI and surgery were consulted however it was felt that her imaging was similar to prior representing a chronic sigmoid dilation. Patient is a poor surgical candidate given her medical comorbidities anddue to the chronic nature of her condition, so no surgical intervention was indicated. 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 She underwent colonoscopy on 02/10 and flex sigmoidoscopy 02/14 with improvement in distention/dilation. Surgery was consulted again for increased distention and bilateral flank pain on 02/19 after abdominal XR showed changes in colonic dilation when compared with previous XR. CT obtained which showed dilation of sigmoid colon up to 13.3cm, similar in appearance to CT from 02/10. No evidence of obstruction, volvulus, or perforation. This is most consistent with continued colonic pseudo-obstruction. Cano catheter placed in the sigmoid with return of 700 mL of liquid stool yesterday and ongoing symptomatic relief. ASSESSMENT/PLAN: - Encourage ambulation - Continue clear liquid diet and TPN - Cano catheter in rectum to remain in place, to gravity drainage. - Minimize use of narcotics - Follow electrolytes and replete - Continue conservative management No indication for emergent surgical intervention at this time - Surgical management of colonic pseudo-obstruction would likely entail subtotal colectomy with endileostomy - We will reach out to our colorectal specialist to inquire as to other potential surgical options (e.g. loop colostomy, double-barrel, end w/mucous fistula - if this may help with decompression bothproximally and distally) - Will re-engage GI in discussions prior to possible, if any, surgical intervention is pursued - Her medical co-morbidities would likely prevent any future attempts to re- establish GI continuity - She is a moderate to high risk surgical candidate given her Vik-Hwang B cirrhosis, with 30% chance all cause mortality perioperatively and significant morbidity with an up to 65% chance of any complications, 50% chance of serious complication - Surgery will continue to follow; please page the purple surgery team pager with any questions or concerns. SUBJECTIVE: No acute overnight events. Tiny continues to be frustrated by her lack of progress. Shedenies increased pain, nausea, or vomiting. PHYSICAL EXAM: Vitals: 02/28/24 0716 BP: 105/68 Pulse: 67 Resp: 16 Temp: 36.5 ??C (97.7 ??F) SpO2: 98% General: Alert and oriented. Mild discomfort. No acute distress. Pulmonary: Breathing comfortably on room air. Abdominal: Stable distension of midline abdomen. Not tender to palpation. Tympanic to percussion inthe midline, dull to percussion laterally close to flank. Cano catheter to sigmoid in place. LABS: Lab Results Component Value Date/Time WBC 3.37 (L) 02/27/2024 0716 RBC 3.03 (L) 02/27/2024 0716 HGB 9.1 (L) 02/27/2024 0716 HCT 29.5 (L) 02/27/2024 0716 PLT 125 (L) 02/27/2024 0716 Lab Results Component Value Date/Time NA 133 (L) 02/28/2024 0600 K 3.5 02/28/2024 0600 CHLORIDE 102 02/28/2024 0600 CO2 24 02/28/2024 0600 GLU 87 02/28/2024 0600 UN 9 02/28/2024 0600 CR 0.46 (L) 02/28/2024 0600 CA 8.0 (L) 02/28/2024 0600 Lab Results Component Value Date/Time PO4 3.7 02/28/2024 0600 Lab Results Component Value Date/Time MG 2.2 02/23/2024 0846 RADIOLOGY: 02/26/24 Abdominal Xray: Interval worsening of sigmoid distension 02/20/24 CT Abd/Pelvis: Noted ventral hernia. Baudilio Dawkins MS, 02/28/2024 10:39 AM Naina Merritt MBBS, 02/28/2024 11:37 AM [facility] Surgery Service Surgery Discharge Milestones (Inpatient Primary Team only): FACULTY NOTE I saw and evaluated the patient on the date of the resident's note. I discussed with the resident and agree with the resident???s findings and plan documented in the resident???s note from above. Anyrevisions by me are documented. Date of service: 02/28/24 Zeus Ozuna MD, 02/28/2024 12:57 PM * Nino Ramírez MD - 02/28/2024 9:41 AM CDT MEDICINE PROGRESS NOTE - Staff Cathy Raymond : 1965 Sex: female Patient Summary: Cathy Raymond is a 58 yo female with decompensated cirrhosis with significant ascites admitted on 02/02/2024 with a displaced periprosthetic femur fracture from a fall at home. She has acute on chronic severe chronic bowel distension which is not resolving, but continuing conservative management as well as initiating TPN. Assessment & Plan: Acute on Chronic distention of the sigmoid colon, S/p decompression colonoscopy (02/10) and flexible sigmoidoscopy (02/14) Possible sigmoid volvulus (ruled out) Complicated multifactorial polyneuropathy Radiologic changes of sigmoid (distension) this admission are seen in images many years ago, so suspect this is a slow escalation of a very long issue. Attempt at simple colonic decompression on 02/10 didn't help, so rectal tube placed on 02/13 and removed 02/14. Sigmoidoscopy performed February 14, and abdominal xray done after flexible sigmoidoscopy with no bowel obstruction. Her bowel remained pretty distended despite the removal of 13 L paracentesis, and on 02/19 she reported more discomfort. Considering such a prolonged inability to advance diet due to distension and concern for extremely high risk in regards to surgical management (subtotal colectomy and end ileostomy), we will proceed with conservative management by initiated parenteral nutrition on 02/26. 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 Paracentesis in ED (4L), 02/07 (4L)and 02/15(6L) 02/18 (7.3L.). MELD 3.0: 17 at 02/26/2024 7:17 AM MELD-Na: 11 at 02/26/2024 7:17 AM Calculated from: Serum Creatinine: 0.49 mg/dL (Using min of 1 mg/dL) at 02/26/2024 7:17 AM Serum Sodium: 132 mmol/L at 02/26/2024 7:17 AM Total Bilirubin: 0.6 mg/dL (Using min of 1 mg/dL) at 02/24/2024 11:25 AM Serum Albumin: 2.6 g/dL at 02/24/2024 11:25 AM INR(ratio): 1.5 at 02/24/2024 11:25 AM Age at listing (hypothetical): 58 years Sex: Female at 02/26/2024 7:17 AM - Restart lasix/spironolactone, daily BMP Pancytopenia, stable. ANC 1.42. Likely secondary to cirrhosis. - Continue to monitor Hyponatremia. Na 133 today after restart of diuretics. - BMP in AM Intermittent hypotension. Due to liver disease. Received 25 gram of albumin 02/18 and 100 grams 02/17. SBP 80s and 90s for past few days. She is asymptomatic. Hgb stable. No fevers. Lactate normal. - Continue to monitor Acute displaced angulated periprosthetic fracture of the distal femur s/p IMN R Femur Osteoporosis managed with oral alendronate Prior left femur fracture s/p IMN 2019 - Orthopedics consulted, appreciate assistance - Pain control with Tylenol 650 mg TID and Oxycodone 5 mg BID PRN - Continue Lovenox x4 weeks through 03/04 or as long as in the hospital - PT/OT, awaiting ANA placement Diabetic neuropathic ulceration, full thickness, with fat layer exposed MSSA positive right foot wound culture - Podiatry consulted, appreciate assistance - Follow up with Podiatry outpatient - Completed two week course of cefazolin MSSA bacteremia Bacillus species not anthracis in one set of blood culture-contaminant Ecoli UTI with microscopic hematuria Blood cultures from outside Hospital with one set finalized and growing MSSA. Also notified by Hospital, patient had a right foot wound culture growing MSSA as well. 02/03 blood culture with no growth to date. -ID consulted, appreciate assistance - Completed course of cefazolin to cover MSSA and urine E. Coli.Total course 02/01-02/14, 2 weeks Urinary retention Patient noted to be retaining urine, requiring straight catheterization. Cano replaced on 02/07. - Follow up with Urology Sacral ulcer, POA, Stage 2 - Wound care per [facility] nurse Hypokalemia, intermittent Anemia, stable. - Continue to monitor Hypothyroidism on Levothyroxine Chronic neuropathic pain on Gabapentin Diabetes mellitus type 2 Obstructive sleep apnea Obesity with BMI 32 Vitamin B12 deficiency CIDP Neurogenic bowel/bladder Seasonal allergies Major depression Constipation Insomnia GERD Diet: Diet Supplement: Hi protein juice Diet: Clear Liquid; No Added Salt (3-4 Gm Sodium) Standard Peripheral IV Access Parenteral Nutrition (CLINIMIX E 4.25/5) DVT PPx: Lovenox Code Status: Full Code Therapies: PT following and OT following Dispo: Pending response to TPN and overall stability of symptoms. Expect another week or so. Will need ANA placement. Subjective/Events of Past 24 Hours: Hospital Day: 26 Doing okay today. Abdomen stably full/tense but not more painful. Some minor PO intake, mainly chicken broth. Objective: BP 105/68 (Cuff Location: Left Arm) Pulse 67 Temp 36.5 ??C (97.7 ??F) (Oral) Resp 16 Ht 1.727 m (5' 8) Wt 98.4 kg (217 lb) SpO2 98% BMI 32.99 kg/m?? Temp (24hrs), Av.3 ??C (97.3 ??F), Min:35.7 ??C (96.2 ??F), Max:36.8 ??C (98.2 ??F) Intake/Output Summary (Last 24 hours) at 02/28/2024 0942 Last data filed at 02/28/2024 0500 Gross per 24 hour Intake -- Output 1400 ml Net -1400 ml GEN: Awake and alert, not in acute distress HEENT: Normocephalic, atraumatic, no scleral icterus CV: Regular rate and rhythm, no murmurs, rubs or gallops PULM: Anterior lung lenz: Clear to ausculation bilaterally, no wheezes, rales or rhonchi ABD: Distended, normal bowel sounds, firm, non-tender to palpation, no rigidity or guarding EXT: No pedal edema NEURO: Awake and alert, answers all questions, moves all limbs Lab and diagnotic results: Pertinent labs and imaging personally reviewed in [facility] and applied to medical decision making. Nino Ramírez MD, 02/28/2024 9:42 AM * Raven Ramírez, MAGALYS, LD - 02/27/2024 3:58 PM CDT Problem: Nutrition, Imbalanced: Inadequate Oral Intake (Adult, Obstetrics) Goal: Identify Signs and Symptoms and Related Risk Factors Outcome: In progress Nutrition Brief: Received page from PharmD re: pt now with PICC and MD wants to switch to TPN. Recommendations to Physician: TPN: Clinimix E at 60 mL/hr + clinolipid at 20.8 mL/hr x 12 hours to provide 1522 kcals, 72 grams of protein, 216 grams of CHO. Start at 30 mL/hr x 4 hours and increase to goal rate. D/c PPN/lipids. MVI/trace minerals per PharmD. Routine monitoring of electrolytes. Check LFTs and TGs now and then weekly to monitor tolerance. Raven Ramírez, MS, RD, LD [employer] [facility] [employer] * Miryam Kolb - 02/27/2024 3:33 PM CDT Pt just got a picc line and will be changed to unit collect. RN Rochelle will get routine lab from picc. @1530 * Nino Ramírez MD - 02/27/2024 10:34 AM CDT MEDICINE PROGRESS NOTE - Staff Cathy Raymond : 1965 Sex: female Patient Summary: Cathy Raymond is a 58 yo female with decompensated cirrhosis with significant ascites admitted on 02/02/2024 with a displaced periprosthetic femur fracture from a fall at home. She was also found to have acute on chronic severe chronic bowel distension. Assessment & Plan: Acute on Chronic distention of the sigmoid colon, S/p decompression colonoscopy (02/10) and flexible sigmoidoscopy (02/14) Possible sigmoid volvulus (ruled out) Complicated multifactorial polyneuropathy. Radiologic changes of sigmoid (distension) this admission are seen in images many years ago, so suspect this is a slow escalation of a very long issue. Attempt at simple colonic decompression on 02/10 didn't help, so rectal tube placed on 02/13 and removed 02/14. Sigmoidoscopy performed February 14, and abdominal xray done after flexible sigmoidoscopy with no bowel obstruction. Her bowel remained pretty distended despite the removal of 13 L paracentesis, and on 02/19 she reported more discomfort. Considering such a prolonged inability to advance diet due to distension and concern for extremely high risk in regards to surgical management (subtotal colectomy and end ileostomy), we will proceed with conservative management by initiating parenteral nutrition on 02/26. 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 Paracentesis in ED (4L), 02/07 (4L)and 02/15(6L) 02/18 (7.3L.). MELD 3.0: 17 at 02/26/2024 7:17 AM MELD-Na: 11 at 02/26/2024 7:17 AM Calculated from: Serum Creatinine: 0.49 mg/dL (Using min of 1 mg/dL) at 02/26/2024 7:17 AM Serum Sodium: 132 mmol/L at 02/26/2024 7:17 AM Total Bilirubin: 0.6 mg/dL (Using min of 1 mg/dL) at 02/24/2024 11:25 AM Serum Albumin: 2.6 g/dL at 02/24/2024 11:25 AM INR(ratio): 1.5 at 02/24/2024 11:25 AM Age at listing (hypothetical): 58 years Sex: Female at 02/26/2024 7:17 AM - Restart lasix/spironolactone Pancytopenia, stable. ANC 1.42. Likely secondary to cirrhosis. - Continue to monitor Hyponatremia. Na 132 today. Hyponatremia likely due to diuretic use. - BMP in AM Intermittent hypotension. Due to liver disease. Received 25 gram of albumin 02/18 and 100 grams 02/17. SBP 80s and 90s for past few days. She is asymptomatic. Hgb stable. No fevers. Lactate normal. - Continue to monitor Acute displaced angulated periprosthetic fracture of the distal femur s/p IMN R Femur Osteoporosis managed with oral alendronate Prior left femur fracture s/p IMN 2019 - Orthopedics consulted, appreciate assistance - Pain control with Tylenol 650 mg TID and Oxycodone 5 mg BID PRN - Continue Lovenox x4 weeks through 03/04 or as long as in the hospital - PT/OT, awaiting ANA placement Diabetic neuropathic ulceration, full thickness, with fat layer exposed MSSA positive right foot wound culture - Podiatry consulted, appreciate assistance - Follow up with Podiatry outpatient - Completed two week course of cefazolin MSSA bacteremia Bacillus species not anthracis in one set of blood culture-contaminant Ecoli UTI with microscopic hematuria Blood cultures from outside Hospital with one set finalized and growing MSSA. Also notified by Hospital, patient had a right foot wound culture growing MSSA as well. 02/03 blood culture with no growth to date. -ID consulted, appreciate assistance - Completed course of cefazolin to cover MSSA and urine E. Coli.Total course 02/01-02/14, 2 weeks Urinary retention Patient noted to be retaining urine, requiring straight catheterization. Cano replaced on 02/07. - Follow up with Urology Sacral ulcer, POA, Stage 2 - Wound care per [facility] nurse Hypokalemia, intermittent Anemia, stable. - Continue to monitor Hypothyroidism on Levothyroxine Chronic neuropathic pain on Gabapentin Diabetes mellitus type 2 Obstructive sleep apnea Obesity with BMI 32 Vitamin B12 deficiency CIDP Neurogenic bowel/bladder Seasonal allergies Major depression Constipation Insomnia GERD Diet: Diet Supplement: Hi protein juice Diet: Clear Liquid; No Added Salt (3-4 Gm Sodium) Standard Peripheral IV Access Parenteral Nutrition (CLINIMIX E ) DVT PPx: Lovenox Code Status: Full Code Therapies: PT following and OT following Dispo: Pending response to TPN and overall stability of symptoms. Expect another week or so. Will need ANA placement. Subjective/Events of Past 24 Hours: Hospital Day: 25 Abdomen stable today. Tolerating PO intake clear fluids. Pain stable. Breathing okay. Objective: BP 96/65 (Cuff Location: Left Arm) Pulse 70 Temp 36.8 ??C (98.3 ??F) (Oral) Resp 18 Ht 1.727 m (5' 8) Wt 98.4 kg (217 lb) SpO2 93% BMI 32.99 kg/m?? Temp (24hrs), Av.5 ??C (97.7 ??F), Min:35.7 ??C (96.3 ??F), Max:36.9 ??C (98.5 ??F) Intake/Output Summary (Last 24 hours) at 02/27/2024 1034 Last data filed at 02/27/2024 0543 Gross per 24 hour Intake -- Output 1601 ml Net -1601 ml GEN: Awake and alert, not in acute distress HEENT: Normocephalic, atraumatic, no scleral icterus CV: Regular rate and rhythm, no murmurs, rubs or gallops PULM: Anterior lung lenz: Clear to ausculation bilaterally, no wheezes, rales or rhonchi ABD: Distended, normal bowel sounds, firm, non-tender to palpation, no rigidity or guarding EXT: No pedal edema NEURO: Awake and alert, answers all questions, moves all limbs Lab and diagnotic results: Pertinent labs and imaging personally reviewed in [facility] and applied to medical decision making. Nino Ramírez MD, 02/27/2024 10:34 AM * Maximiliano Nick MD - 02/27/2024 8:38 AM CDT [facility] PROGRESS NOTE - PGY-1 SUMMARY: Cathy Raymond is a 58 y.o. female with decompensated cirrhosis with ascites, neuropathy with neurogenic bowel and bladder, alcohol use d/o, hypothyroidism, T2DM, MAX, gastric bypass 2002 with history of marginal ulcer, osteoporosis who was admitted on 02/02/2024 after fall from standing height w/left femur fx s/p IMN w/ ortho 02/04. On admission there was concern for sigmoid volvulus for which GI and surgery were consulted however it was felt that her imaging was similar to prior representing a chronic sigmoid dilation. Patient is a poor surgical candidate given her medical comorbidities anddue to the chronic nature of her condition, so no surgical intervention was indicated. 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 She underwent colonoscopy on 02/10 and flex sigmoidoscopy 02/14 with improvement in distention/dilation. Surgery was consulted again for increased distention and bilateral flank pain on 02/19 after abdominal XR showed changes in colonic dilation when compared with previous XR. CT obtained which showed dilation of sigmoid colon up to 13.3cm, similar in appearance to CT from 02/10. No evidence of obstruction, volvulus, or perforation. This is most consistent with continued colonic pseudo-obstruction. Cano catheter placed in the sigmoid with return of 400 mL of liquid stool yesterday and ongoing symptomatic relief. ASSESSMENT/PLAN: - Continue clear liquid diet - Cano catheter to remain in place, to gravity drainage. - Minimize use of narcotics - Follow electrolytes and replete - Continue conservative management No indication for emergent surgical intervention at this time - Surgical management of colonic pseudo-obstruction would likely entail subtotal colectomy with endileostomy - We will reach out to our colorectal specialist to inquire as to other potential surgical options (e.g. loop colostomy, double-barrel, end w/mucous fistula - if this may help with decompression bothproximally and distally) - Will re-engage GI in discussions prior to possible, if any, surgical intervention is pursued - Her medical co-morbidities would likely prevent any future attempts to re- establish GI continuity - She is a moderate to high risk surgical candidate given her Vik-Hwang B cirrhosis, with 30% chance all cause mortality perioperatively and significant morbidity with an up to 65% chance of any complications, 50% chance of serious complication - Surgery will continue to follow; please page the purple surgery team pager with any questions or concerns. SUBJECTIVE: No acute overnight events. Tiny is frustrated with her lack of progress with her distended abdomen. She denies increased pain, nausea, or vomiting. PHYSICAL EXAM: Vitals: 02/27/24 0745 BP: 96/65 Pulse: 70 Resp: 18 Temp: 36.8 ??C (98.3 ??F) SpO2: 93% General: Alert and oriented. Mild discomfort. No acute distress. Pulmonary: Breathing comfortably on room air. Abdominal: Mildly increased Not tender to palpation. Tympanic to percussion in the midline, dull topercussion laterally close to flank. Cano catheter to sigmoid in place. LABS: Lab Results Component Value Date/Time WBC 3.37 (L) 02/27/2024 0716 RBC 3.03 (L) 02/27/2024 0716 HGB 9.1 (L) 02/27/2024 0716 HCT 29.5 (L) 02/27/2024 0716 PLT 125 (L) 02/27/2024 0716 Lab Results Component Value Date/Time NA 132 (L) 02/27/2024 0716 K 3.6 02/27/2024 0716 CHLORIDE 101 02/27/2024 0716 CO2 23 02/27/2024 0716 GLU 81 02/27/2024 0716 UN 9 02/27/2024 0716 CR 0.52 02/27/2024 0716 CA 7.8 (L) 02/27/2024 0716 Lab Results Component Value Date/Time PO4 3.2 02/27/2024 0716 Lab Results Component Value Date/Time MG 2.2 02/23/2024 0846 RADIOLOGY: 02/26/24 Abdominal Xray: Interval worsening of sigmoid distension 02/20/24 CT Abd/Pelvis: Noted ventral hernia. Naina Merritt MBBS, 02/27/2024 8:42 AM [facility] Surgery Service Surgery Discharge Milestones (Inpatient Primary Team only): FACULTY WITH RESIDENT: I saw and evaluated the patient on the date of the resident's note. I discussed with the resident and agree with the resident's findings and plan documented in the resident's note. Any revisions by me are documented. Maximiliano Nick MD, 02/28/2024 9:36 AM * Ernestine Toribio MD - 02/26/2024 3:57 PM CDT MEDICINE PROGRESS NOTE - Staff Cathy Raymond : 1965 Sex: female Patient Summary: Cathy Raymond is a 58 yo female with decompensated cirrhosis with significant ascites admitted on 02/02/2024 with a displaced periprosthetic femur fracture from a fall at home. She was also found to have acute on chronic severe chronic bowel distension. Assessment & Plan: Acute on Chronic distention of the sigmoid colon, S/p decompression colonoscopy (02/10) and flexible sigmoidoscopy (02/14) Possible sigmoid volvulus (ruled out) Complicated multifactorial polyneuropathy. On admission, discussion with Radiology and the findingsin the sigmoid are chronic seen in imaging dating back to 2016. A CT abdomen/pelvis with increase in rectosigmoid colonic distention. Colonic decompression performed on 02/10 with improvement. However,abdominal xray on 02/13 with worsening sigmoid distension compared to xray on 02/11. Rectal tube placed on 02/13 and removed 02/14. Sigmoidoscopy performed February 14, and abdominal xray done after flexible sigmoidoscopy with no bowel obstruction. Her bowel remained pretty distended despite the removal of 13 L paracentesis, and on 02/19 she reported more discomfort. Abdominal xray today with persistent colonic dilatation. - Surgery consulted, appreciate assistance - Would recommend limiting to clear liquid diet, consider advancing pending clinical improvement - Cano cathter in sigmoid to remain in place, to gravity drainage. We will consider placing to LISpending clinical course - Minimize use of narcotics - Would recommend serial abdominal x-rays - Follow electrolytes and replete - Continue conservative management - No indication for surgical intervention at this time - Loop colostomy would not be recommended for this patient - Surgical management of colonic pseudo-obstruction would likely entail subtotal colectomy with endileostomy - Her medical co-morbidities would likely prevent any future attempts to re- establish GI continuity - She is a moderate to high risk surgical candidate given her Vki-Hwang B cirrhosis, with 30% chance all cause mortality perioperatively and significant morbidity with an up to 65% chance of any complications, 50% chance of serious complication - GI consulted, appreciate assistance -Ongoing conservative management with bowel regimen. Outside of conservative management, GI does not have anything to offer at this time. -Limit narcotics as able -We recommend avoidance of neostigmine at this juncture given her cardiovascular risk and cirrhosis. -Oxycodone decreased to 5 mg p.o. 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 Paracentesis in ED (4L), 02/07 (4L)and 02/15(6L) 02/18 (7.3L.). MELD 3.0: 17 at 02/26/2024 7:17 AM MELD-Na: 11 at 02/26/2024 7:17 AM Calculated from: Serum Creatinine: 0.49 mg/dL (Using min of 1 mg/dL) at 02/26/2024 7:17 AM Serum Sodium: 132 mmol/L at 02/26/2024 7:17 AM Total Bilirubin: 0.6 mg/dL (Using min of 1 mg/dL) at 02/24/2024 11:25 AM Serum Albumin: 2.6 g/dL at 02/24/2024 11:25 AM INR(ratio): 1.5 at 02/24/2024 11:25 AM Age at listing (hypothetical): 58 years Sex: Female at 02/26/2024 7:17 AM - Holding diuretics due to hyponatremia. She has increasing edema/anasarca and would ideally restart once diet advanced, but may not be possible as previously caused hyponatremia Pancytopenia, stable. ANC 1.42. Likely secondary to cirrhosis. - Continue to monitor Hyponatremia. Na 132 today. Hyponatremia likely due to diuretic use. - Continue to monitor Intermittent hypotension. Due to liver disease. Received 25 gram of albumin 02/18 and 100 grams 02/17. SBP 80s and 90s for past few days. She is asymptomatic. Hgb stable. No fevers. Lactate normal. - Continue to monitor Acute displaced angulated periprosthetic fracture of the distal femur s/p IMN R Femur Osteoporosis managed with oral alendronate Prior left femur fracture s/p IMN 2019 - Orthopedics consulted, appreciate assistance - Pain control with Tylenol 650 mg TID and Oxycodone 5 mg BID PRN - Continue Lovenox x4 weeks through 03/04 or as long as in the hospital - PT/OT, awaiting ANA placement Diabetic neuropathic ulceration, full thickness, with fat layer exposed MSSA positive right foot wound culture - Podiatry consulted, appreciate assistance - Follow up with Podiatry outpatient - Completed two week course of cefazolin MSSA bacteremia Bacillus species not anthracis in one set of blood culture-contaminant Ecoli UTI with microscopic hematuria Blood cultures from outside Hospital with one set finalized and growing MSSA. Also notified by Hospital, patient had a right foot wound culture growing MSSA as well. 02/03 blood culture with no growth to date. -ID consulted, appreciate assistance - Completed course of cefazolin to cover MSSA and urine E. Coli.Total course 02/01-02/14, 2 weeks Urinary retention Patient noted to be retaining urine, requiring straight catheterization. Cano replaced on 02/07. - Follow up with Urology Sacral ulcer, POA, Stage 2 - Wound care per [facility] nurse Hypokalemia (Resolved) Anemia, stable. - Continue to monitor Hypothyroidism on Levothyroxine Chronic neuropathic pain on Gabapentin Diabetes mellitus type 2 Obstructive sleep apnea Obesity with BMI 32 Vitamin B12 deficiency CIDP Neurogenic bowel/bladder Seasonal allergies Major depression Constipation Insomnia GERD Diet: Diet Supplement: Hi protein juice Diet: Clear Liquid; No Added Salt (3-4 Gm Sodium) DVT PPx: Lovenox Code Status: Full Code Therapies: PT following and OT following Dispo: Not medically ready Subjective/Events of Past 24 Hours: Hospital Day: 24 Ms. Raymond reports abdominal fullness this morning. She reports decreased PO intake because of abdominal fullness. She denies nausea or vomiting. Objective: Vital Signs: BP 99/68 (Cuff Location: Left Arm) Pulse 52 Temp 36.5 ??C (97.7 ??F) (Oral) Resp 16 Ht 1.727 m (5' 8) Wt 98.4 kg (217 lb) SpO2 91% BMI 32.99 kg/m?? Temp (24hrs), Av.7 ??C (98 ??F), Min:36.5 ??C (97.7 ??F), Max:36.8 ??C (98.2 ??F) Intake/Output Summary (Last 24 hours) at 02/26/2024 1557 Last data filed at 02/26/2024 1500 Gross per 24 hour Intake 360 ml Output 2450 ml Net -2090 ml Physical Exam: GEN: Awake and alert, not in acute distress HEENT: Normocephalic, atraumatic, no scleral icterus CV: Regular rate and rhythm, no murmurs, rubs or gallops PULM: Anterior lung lenz: Clear to ausculation bilaterally, no wheezes, rales or rhonchi ABD: Distended, normal bowel sounds, firm, non-tender to palpation, no rigidity or guarding EXT: No pedal edema NEURO: Awake and alert, answers all questions, moves all limbs Lab and diagnotic results: Pertinent labs and imaging personally reviewed in [facility] and applied to medical decision making. Ernestine Toribio MD, 02/26/2024 3:57 PM Hospitalist - Department of Medicine Page via Po[employer] MDM: The patient's problem complexity is: [x] High or [] Moderate because 2 of the following apply: Problems [x] Patient has either an acute illness posing a threat to bodily function [x] and/or one acute/chronic illness with severe exacerbation, progression, or side effects from treatment Data [x] I ordered new tests [x] I reviewed tests [] I took further history from the patient's family or outside providers [x] I reviewed consultants notes ----- [x] I reviewed a test/image and provided my own personal interpretation ----- [] I interpreted tests someone else ordered (reviewing labs/imaging) [x] I talked to a websphere commerce consultant and/or members of the case management and nursing team During this visit, I also did the following adding to morbidity of this patient [] I escalated the level of care [] I held a goals of care discussion [] I prescribed opiates/benzos [x] I continued/started a medication requiring intensive monitoring for toxicity * Kianna Rice, RD - 02/26/2024 2:29 PM CDT Problem: Nutrition, Imbalanced: Inadequate Oral Intake (Adult, Obstetrics) Goal: Identify Signs and Symptoms and Related Risk Factors Outcome: In progress Nutrition Assessment Reason for Assessing Patient: Follow-up Orders Placed This Encounter Procedures Diet: Clear Liquid; No Added Salt (3-4 Gm Sodium) Nutrition Support: None Malnutrition Diagnosis: Malnutrition of a moderate degree Assessment: Pt remains on very restrictive diet d/t persistent sigmoid distention. Texted with Dr. Toribio to encourage either full liquid diet if medically able ( this would allow some protein sources such as milk, yogurt, cream soups and regular Boost) or initiation of parenteral nutrition. She has a new SDTI to distal perineum which further increases her nutritional needs. Goal(s) Advance to solid food by next RD follow up (Not met) Start nutrition support or advance to full liquid diet (New goal) Nutrition Intervention(s) Texted Dr Toribio to encourage either full liquid diet or initiation of PPN ( currently has peripheral access) Recommendations to Physician If medically able - advance to full liquid diet (this would allow yogurt, milk, cream soups and regular Boost which patient prefers) If advanced, please add an order for [place] Boost each meal If unable to advance past clear liquid diet, then start standard peripheral parenteral nutrition ( Clinimix E 4.25/5 @ 75 ml/hr X 24 hours continuous and add clinolipid @ 10 ml/hr X 24 hours continuous with pharm D to add TPN MVI and trace elements). If PPN started monitor K, Phos and Mg closely for at least 3 days and check TG weekly Estimated Nutritional Needs: Calories: [id number] Protein: 75+ grams/day Fluid: per primary team Evidence of Malnutrition: Etiology: Chronic illness Energy Intake: Does not meet criteria Weight loss: None (weight up with edema and ascites) Body fat: moderate depletion (noted in UE) Muscle mass: moderate depletion (Noted in UE) Fluid accumulation: Moderate edema (LE + severe ascites) Additional Nutrition Factors: Decompensated cirrhosis admitted with femur fx and found to have severe bowel distention Skin: New SDTI to distal perineum Pertinent Medical Tests and Procedures: GI and surgery following no current plan for surgery intervention. Paracentsis done 02/15 GI: stooling - RT placed IV Fluids: None Pertinent Medications: MAR reviewed - includes bowel, MVI and thiamine Lab Results Component Value Date NA 132 (L) 02/26/2024 K 3.2 (L) 02/26/2024 GLU 80 02/26/2024 UN 9 02/26/2024 CR 0.49 (L) 02/26/2024 PO4 3.4 02/26/2024 MG 2.2 02/26/2024 Nutrition Risk Level: high Yokasta Dwayne RD, LD, CNSC ([employer] M, W, F ) 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 ) * Isidoro Guerrero CWON - 02/26/2024 1:00 PM CDT Images from the original note were not included. Wound Ostomy Continence Nurse Consult Cathy Raymond - : 1965 - MR# [id number] - Date: 02/26/2024 Reason For Consultation: The patient is being seen in consultation at the request of field artillery basic for evaluation of skin breakdown to labia. Incontinence issues: Bowel and Bladder Incontinence Management: Cano Catheter treatment team using cano catheter to decompress through rectum. Would recommend replacing with standard rectal tube once no longer needing suction and wanting drainage via gravity. Surgery team paged to evaluate. Moisture Associate Skin Damage: Irritant contact dermatitis due to fecal, urinary or dual incontinence Wound Description: 02/26/24 1300 Wound 02/26/24 Pressure Injury Perineum Distal Date First Assessed/Time First Assessed: 02/26/24 1300 Primary Wound Type: Pressure Injury Location: (c) Perineum Wound Location Orientation: Distal Site Assessment Purple Yulia-Wound Assessment Non-blanchable erythema Margins Well-defined edges Wound Length (cm) 1 cm Wound Width (cm) 0.5 cm Wound Surface Area (cm^2) 0.5 cm^2 Pressure Injury Stage - WOC Nursing Only Deep tissue injury WOC Nursing follow up: weekly Staff to continue to follow skin injury bundle. Escalate concerns to WOCN through additional consult or to the provider when barriers are identified. WOCN available Thursday through Thursday on Shut Down or [phone] Isidoro Guerrero CWON, 02/26/2024 1:08 PM * Davian Toledo RN - 02/26/2024 12:37 PM CDT 02/26/24 1235 Rapid Rounds Attendance compensator worker;Bedside nurse;equity manager Patient expects to be discharged to: Accepted to [facility] Today we still await: Clinical stability (Continues to wait for clinical stability) Daily calls to facility, Medical Team reports pt not ready * Viki Gillespie RN - 02/25/2024 10:19 PM CDT Student charting by RENATO Bejarano has been reviewed and approved for this patient's record based ondirect observation of this student by Judi Cueva RN. Viki Gillespie RN, 02/25/2024 10:19 PM, clinical instructor for [facility] * Felipe Mercer PTA - 02/25/2024 3:46 PM CDT Physical Therapy Progress Note PT Discharge Recommendations Discharge Recommendations: Post-acute placement [...] be determined at next level of care PT Equipment Recommended: Front wheeled walker;Manual wheelchair PM&R Recommended: S: I think I need to get cleaned up Pain Pain Rating With Activity (Numeric): (not rated) Participation Significantly Limited?: No Intervention: Positioning;Performed Exercises O:Knurling Machine Operator Used: None needed Mental Status Mental Status: Alert;Cooperative Follows Directions: Consistently follows commands Restrictions/Precautions Weight Bearing Restrictions: NWB R LE, OK to weight bear for transfers Complies w/ Weight Bearing?: Yes Precautions: Other (Falls, Cano Catheter, additionally with Cano catheter in sigmoid to suction for stool - OK to mobilize per [facility]) Complies w/ Precautions?: Yes Vital Signs 02/24/2024 2337 02/25/2024 0732 02/25/2024 0930 BP: -- 102/62 102/62 Patient Position for BP: Lying Down Lying Down -- Pulse: -- 63 -- SpO2: -- 98 % -- Transfer & Bed Mobility Roll Left: Moderate assist Roll Right: Moderate assist Supine to/from Sit: Maximum assist (HOB elevated) Sit to/from Stand: Maximum assist (Max A of 1, bear hug) Sit to/from Stand - Method: From elevated surface;w/o Assistive device Gait Distance (m): (1 lateral step to HOB) Assistance: Total (dependent) Sitting Static Balance Level of Assistance: Upper Extremity Support Trunk Control: Decreased core Stability;Leans posteriorly Static Standing Balance Feet Shoulder Width Eyes Open (sec): 20 (max A) Other: 5 (lateral WS with max A at EOB) Interdisciplinary Communication OT: co-treat Fall Risk Assessment: Patient is deemed high fall risk per protocol Positioning: Heel Offloading with Pillows UE supported with pillows Treatment rendered: Transfer training;Bed mobility training;Neuromuscular re-education;Balance/coordination training Total treatment time: 40 minutes A: Tiny is pleasant and agreeable to PT/OT co-treat. She needs moderate assist for log rolling during yulia cares. Patient transfers supine <> sit with max A and HOB slightly elevated. Patient tolerates sitting EOB with UE support and supervision. She performs STS transfer with no AD, with this teletypewriter installer using bear hug and blocking B knees. She tolerates standing for 20 seconds and perform lateral weight shifting with max A of 1 and close SBA of 2. Patient performs 1x total assist lateral step to her L along EOB to get closer to the HOB prior to sit to supine transfer. She would benefit from ongoing PT to increase independence with transfers. P: Patient will be seen 2-4x/week until goals are met or patient is discharged. Next visit the planis to work on bed mob, LE strength, seated balance, STS, stand pivot, standing tolerance. SPECIALIST FIELD ENGINEER Appropriate: Yes (For EOB activity and standing/transfers, no gait) Felipe Mercer, SPECIALIST FIELD ENGINEER 02/25/2024 Pager: [facility] Problem: Decreased Transfer Skills Goal: Patient will transfer supine to/from sit Description: Patient will transfer supine to/from sit with (6) Modified Garrett in order to safely mobilize OOB by 03/04/24. Outcome: In progress Goal: Patient will transfer bed to/from wheelchair Description: Patient will transfer bed to/from wheelchair with (5) Supervision, Set-Up or Standby Prompting with sliding board or pivot method in order to progress to PLOF by 03/04/24. Outcome: In progress Problem: Decreased Wheelchair Mobility Goal: Improve manual wheelchair propulsion Description: Improve manual wheelchair propulsion >20m with (6) Modified Garrett in order to progress toward PLOF by 03/04/24. Outcome: In progress * Ernestine Toribio MD - 02/25/2024 2:20 PM CDT MEDICINE PROGRESS NOTE - Staff Cathy Raymond : 1965 Sex: female Patient Summary: Cathy Raymond is a 58 yo female with decompensated cirrhosis with significant ascites admitted on 02/02/2024 with a displaced periprosthetic femur fracture from a fall at home. She was also found to have acute on chronic severe chronic bowel distension. Assessment & Plan: Acute on Chronic distention of the sigmoid colon, S/p decompression colonoscopy (02/10) and flexible sigmoidoscopy (02/14) Possible sigmoid volvulus (ruled out) Complicated multifactorial polyneuropathy. On admission, discussion with Radiology and the findingsin the sigmoid are chronic seen in imaging dating back to 2016. A CT abdomen/pelvis with increase in rectosigmoid colonic distention. Colonic decompression performed on 02/10 with improvement. However,abdominal xray on 02/13 with worsening sigmoid distension compared to xray on 02/11. Rectal tube placed on 02/13 and removed 02/14. Sigmoidoscopy performed February 14, and abdominal xray done after flexible sigmoidoscopy with no bowel obstruction. Her bowel remained pretty distended despite the removal of 13 L paracentesis, and on 02/19 she reported more discomfort. Abdominal xray today with stable massive colonic dilation. - Surgery consulted, appreciate assistance - Would recommend limiting to clear liquid diet, consider advancing pending clinical improvement - Cano cathter in sigmoid to remain in place, to gravity drainage. We will consider placing to LISpending clinical course - Minimize use of narcotics - Would recommend serial abdominal x-rays - Follow electrolytes and replete - Continue conservative management - No indication for surgical intervention at this time - Loop colostomy would not be recommended for this patient - Surgical management of colonic pseudo-obstruction would likely entail subtotal colectomy with endileostomy - Her medical co-morbidities would likely prevent any future attempts to re- establish GI continuity - She is a moderate to high risk surgical candidate given her Vik-Hwang B cirrhosis, with 30% chance all cause mortality perioperatively and significant morbidity with an up to 65% chance of any complications, 50% chance of serious complication - GI consulted, appreciate assistance -Ongoing conservative management with bowel regimen. Outside of conservative management, GI does not have anything to offer at this time. -Limit narcotics as able -We recommend avoidance of neostigmine at this juncture given her cardiovascular risk and cirrhosis. - Continue red rubber Ruiz catheter and aggressive bowel regimen -Oxycodone decreased to 5 mg p.o. 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 Paracentesis in ED (4L), 02/07 (4L)and 02/15(6L) 02/18 (7.3L.). MELD 3.0: 16 at 02/25/2024 6:22 AM MELD-Na: 11 at 02/25/2024 6:22 AM Calculated from: Serum Creatinine: 0.48 mg/dL (Using min of 1 mg/dL) at 02/25/2024 6:22 AM Serum Sodium: 133 mmol/L at 02/25/2024 6:22 AM Total Bilirubin: 0.6 mg/dL (Using min of 1 mg/dL) at 02/24/2024 11:25 AM Serum Albumin: 2.6 g/dL at 02/24/2024 11:25 AM INR(ratio): 1.5 at 02/24/2024 11:25 AM Age at listing (hypothetical): 58 years Sex: Female at 02/25/2024 6:22 AM - Holding diuretics due to hyponatremia. She has increasing edema/anasarca and would ideally restart once diet advanced, but may not be possible as previously caused hyponatremia Hyponatremia. Na 133 today. Hyponatremia likely due to diuretic use. - Continue to monitor Intermittent hypotension. Due to liver disease. Received 25 gram of albumin 02/18 and 100 grams 02/17. SBP 80s and 90s for past few days. She is asymptomatic. Hgb stable. No fevers. Lactate normal. - Continue to monitor Acute displaced angulated periprosthetic fracture of the distal femur s/p IMN R Femur Osteoporosis managed with oral alendronate Prior left femur fracture s/p IMN 2019 - Orthopedics consulted, appreciate assistance - Pain control with Tylenol 650 mg TID and Oxycodone 5 mg BID PRN - Continue Lovenox x4 weeks through 03/04 or as long as in the hospital - PT/OT, awaiting ANA placement Diabetic neuropathic ulceration, full thickness, with fat layer exposed MSSA positive right foot wound culture - Podiatry consulted, appreciate assistance - Follow up with Podiatry outpatient - Completed two week course of cefazolin MSSA bacteremia Bacillus species not anthracis in one set of blood culture-contaminant Ecoli UTI with microscopic hematuria Blood cultures from outside Hospital with one set finalized and growing MSSA. Also notified by Hospital, patient had a right foot wound culture growing MSSA as well. 02/03 blood culture with no growth to date. -ID consulted, appreciate assistance - Completed course of cefazolin to cover MSSA and urine E. Coli.Total course 02/01-02/14, 2 weeks Urinary retention Patient noted to be retaining urine, requiring straight catheterization. Cano replaced on 02/07. - Follow up with Urology Sacral ulcer, POA, Stage 2 - Wound care per [facility] nurse Hypokalemia (Resolved) Anemia, stable. - Continue to monitor # Hypothyroidism on Levothyroxine # Chronic neuropathic pain on Gabapentin # Diabetes mellitus type 2 # Obstructive sleep apnea # Obesity with BMI 32 # Vitamin B12 deficiency # CIDP # Neurogenic bowel/bladder # Seasonal allergies # Major depression # Constipation # Insomnia # GERD Diet: Diet Supplement: Hi protein juice Diet: Clear Liquid; No Added Salt (3-4 Gm Sodium) DVT PPx: Lovenox Code Status: Full Code Therapies: PT following and OT following Dispo: Not medically ready Subjective/Events of Past 24 Hours: Hospital Day: 23 Ms. Raymond reports doing ok this morning. She reports abdominal discomfort. She denies nausea or vomiting. Objective: Vital Signs: BP 102/62 Pulse 63 Temp 36 ??C (96.8 ??F) (Axillary) Resp 17 Ht 1.727 m (5' 8) Wt 98.4 kg (217 lb) SpO2 98% BMI 32.99 kg/m?? Temp (24hrs), Av.1 ??C (97 ??F), Min:36 ??C (96.8 ??F), Max:36.2 ??C (97.1 ??F) Intake/Output Summary (Last 24 hours) at 02/25/2024 1420 Last data filed at 02/25/2024 1400 Gross per 24 hour Intake 231 ml Output 955 ml Net -724 ml Physical Exam: GEN: Awake and alert, not in acute distress HEENT: Normocephalic, atraumatic, no scleral icterus CV: Regular rate and rhythm, no murmurs, rubs or gallops PULM: Anterior lung lenz: Clear to ausculation bilaterally, no wheezes, rales or rhonchi ABD: Distended, normal bowel sounds, firm, non-tender to palpation, no rigidity or guarding EXT: No pedal edema NEURO: Awake and alert, answers all questions, moves all limbs Lab and diagnotic results: Pertinent labs and imaging personally reviewed in [facility] and applied to medical decision making. Ernestine Toribio MD, 02/25/2024 2:20 PM Hospitalist - Department of Medicine Page via [employer] MDM: The patient's problem complexity is: [x] High or [] Moderate because 2 of the following apply: Problems [x] Patient has either an acute illness posing a threat to bodily function [x] and/or one acute/chronic illness with severe exacerbation, progression, or side effects from treatment Data [x] I ordered new tests [x] I reviewed tests [] I took further history from the patient's family or outside providers [x] I reviewed consultants notes ----- [x] I reviewed a test/image and provided my own personal interpretation ----- [] I interpreted tests someone else ordered (reviewing labs/imaging) [x] I talked to a websphere commerce consultant and/or members of the case management and nursing team During this visit, I also did the following adding to morbidity of this patient [] I escalated the level of care [] I held a goals of care discussion [] I prescribed opiates/benzos [x] I continued/started a medication requiring intensive monitoring for toxicity * Eugenia Mead OTR/L - 02/25/2024 1:45 PM CDT Occupational Therapy Progress Note 02/25/2024 OT Discharge Recommendations Discharge Recommendations: Post-acute placement recommended Level/type of placement (OT): Sub-Acute Rehab facility Post Discharge Follow-up: OT at post-acute placement Equipment Recommended: Equipment needs to be determined at next level of care OT In-patient follow-up / recommended referrals: Continue skilled OT services to achieve the goals on the plan of care / maximize safety and independence with ADL's / IADL's: - Recommended Frequency: 2x / week - Anticipated Duration of OT services: throughout hospital stay - Interventions: ADL retraining, activity tolerance, and functional mobility PM&R Consult Recommended: Not at this time Precautions/Restrictions: Activity Level: Up with Assist (02/07/24 1500) General Precautions: High falls risk (02/07/24 1500) Weight-bearing Restrictions: Right LE - NWB (ok to WB for transfers only) (02/09/24 1400) Complies w/ Weight Bearing?: Yes Complies w/ Precautions?: Yes SUBJECTIVE: Pt is in good spirits, difficult to be back on clear liquid diet Pain Pain Rating With Activity (Numeric): 4/10 Location: abdomen Participation Significantly Limited?: No Action Taken: Nursing aware and addressing;Repositioned patient with reported relief OBJECTIVE: Activities of Daily Living Toileting: Dependent (less than 25% patient effort) Toileting Comments: loose stool Functional Mobility Supine to/from Sit: (assist of 1 supine->sit, assist of 2 sit->supine) Sit to/from Stand : Maximal assist (25% patient effort) Cognition Mental Status: Oriented x 3;Alert;Cooperative;Follows 1 step direction Delirium assessment: Confusion Assessment Method (CAM) Delirium prevention / intervention appears indicated? Yes, as a preventative measure: Interventions provided - engaged pt in functional tasks - promoted mobility ASSESSMENT: Pt reports needing to bed cleaned up on OT/PT arrival. Pt rolled to side while in supine and rectal catheter no longer in place- nursing aware. Once cleaned up, pt able to sit EOB and stand x2. Pt is still fearful of falling, benefits from encouragement and reassurance. Returned to supine for nurse to replace catheter tubing. Continue to recommend son lift with nursing for transfer to chair. This patient will continue to benefit from skilled OT services for ADL retraining, activity tolerance, and functional mobility to maximize independence and safety with ADLs. PLAN: Continue skilled OT services to achieve the goals on the plan of care: Plan For Next OT Session: --Functional Mobility/Transfers: sit->stand Total treatment time: 40 minutes OT interventions and time spent on each: Self care/Home mgmt/ADL: 40 minutes LILY Ling/Bethanie Pager: [facility] OT Department * Courtney Potts LGSW - 02/25/2024 10:53 AM CDT SW spoke to Ashley in Admissions for [facility] to let her know patient is still not medically ready will update her tomorrow at [phone]. * Humphrey Turner MD - 02/25/2024 7:07 AM CDT Orthopaedic Surgery Progress Note 02/25/2024 S: MATT overnight. Pain adequately controlled. Continues to struggle with medical comorbidities. Will ultimately need ANA. O: Vitals: 02/23/24 2257 02/24/24 0738 02/24/24 1510 02/24/24 2337 BP: 90/52 99/61 104/60 Cuff Location: Right Arm Left Arm Left Arm Pulse: 66 70 66 Resp: 18 16 18 Temp: 36.4 ??C (97.6 ??F) 36.6 ??C (97.9 ??F) 36.1 ??C (97 ??F) 36.2 ??C (97.1 ??F) TempSrc: Oral Oral Oral Oral SpO2: 97% 98% 95% Weight: Height: Exam: Gen: No acute distress. Resp: Non-labored breathing RLE: Sutures in place. Wounds c/d/i. Fires EHL/FHL/Gsc/TA, SILT S/S/SP/DP/T dist, no pain with passive stretch of toes. Toes wwp, compartments soft. Output by Drain (mL) 02/23/24 0700 - 02/23/24 1459 02/23/24 1500 - 02/23/24 2259 02/23/24 2300 - 02/24/24 0659 02/24/24 0700 - 02/24/24 1459 02/24/24 1500 - 02/24/24 2259 02/24/24 2300 - 02/25/24 0659 02/25/24 0700 - 02/25/24 0707 Requested LDAs do not have output data documented. Labs: Lab Results Component Value Date/Time WBC 2.69 (L) 02/25/2024 0622 WBC 3.55 (L) 02/24/2024 1125 WBC 3.17 (L) 02/23/2024 0846 HGB 9.2 (L) 02/25/2024 0622 HGB 8.6 (L) 02/24/2024 1125 HGB 9.7 (L) 02/23/2024 0846 PLT 132 (L) 02/25/2024 0622 PLT 146 (L) 02/24/2024 1125 PLT 138 (L) 02/23/2024 0846 CR 0.55 02/24/2024 1125 CR 0.52 02/23/2024 0846 CR 0.52 02/22/2024 0618 Lab Results (Last 120 hours) No results found for the last 120 hours. Assessment/Plan: Cathy Raymond is a 58 y.o. old female with alcoholic cirrhosis who presents with a right femur fracture now s/p IMN R femur on 02/[address] Henning. Medicine Primary Activity: up with assist Weightbearing restrictions: NWB RLE, ok to WB for transfers Antibiotics: Completed course of Ancef per ID. Diet: ADAT DVT prophylaxis: Lovenox 40mg daily x 4 weeks Wound/Incision Care/Vac: Keep wounds c/d/I. Plan to remove sutures 03/03. Follow Up: Follow-up with Dr. Henning team in clinic on 03/03. Humphrey Turner MD Orthopedic Surgery PGY-3 * Jonnie Matta MD - 02/25/2024 5:28 AM CDT [facility] SURG[facility] PROGRESS NOTE - MS4/ PGY 5 SUMMARY: Cathy Raymond is a 58 y.o. female with decompensated cirrhosis with ascites, neuropathy with neurogenic bowel and bladder, alcohol use d/o, hypothyroidism, T2DM, MAX, gastric bypass 2002 with history of marginal ulcer, osteoporosis who was admitted on 02/02/2024 after fall from standing height w/left femur fx s/p IMN w/ ortho 02/04. On admission there was concern for sigmoid volvulus for which GI and surgery were consulted however it was felt that her imaging was similar to prior representing a chronic sigmoid dilation. Patient is a poor surgical candidate given her medical comorbidities anddue to the chronic nature of her condition, so no surgical intervention was indicated. 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 She underwent colonoscopy on 02/10 and flex sigmoidoscopy 02/14 with improvement in distention/dilation. Surgery was consulted again for increased distention and bilateral flank pain on 02/19 after abdominal XR showed changes in colonic dilation when compared with previous XR. CT obtained which showed dilation of sigmoid colon up to 13.3cm, similar in appearance to CT from 02/10. No evidence of obstruction, volvulus, or perforation. This is most consistent with continued colonic pseudo-obstruction. Cano catheter placed in the sigmoid with return of 105 mL of liquid stool yesterday and ongoing symptomatic relief. Some additional unmeasured liquid stool per nursing flowsheet. ASSESSMENT/PLAN: - Would recommend limiting to clear liquid diet, consider advancing pending clinical improvement - Cano cathter in sigmoid to remain in place, to gravity drainage. We will consider placing to LISpending clinical course - Minimize use of narcotics - Would recommend serial abdominal x-rays - Follow electrolytes and replete - Continue conservative management - No indication for surgical intervention at this time - Loop colostomy would not be recommended for this patient - Surgical management of colonic pseudo-obstruction would likely entail subtotal colectomy with endileostomy - Her medical co-morbidities would likely prevent any future attempts to re- establish GI continuity - She is a moderate to high risk surgical candidate given her Vik-Hwang B cirrhosis, with 30% chance all cause mortality perioperatively and significant morbidity with an up to 65% chance of any complications, 50% chance of serious complication - Surgery will continue to follow; please page the purple surgery team pager with any questions or concerns. SUBJECTIVE: No acute events overnight. She has noticed worsening distension of her abdomen but no increased pain. She has tolerated clear liquid diet without nausea or vomiting. PHYSICAL EXAM: Vitals: 02/25/24 0732 BP: 102/62 Pulse: 63 Resp: 17 Temp: 36 ??C (96.8 ??F) SpO2: 98% General: Alert and oriented. No acute distress. Pulmonary: Breathing comfortably on room air. Abdominal: Markedly distended abdomen. Moderatly rigid in the midline, softer laterally. Mild generalized tenderness to palpation. Tympanic to percussion in epigastrium, dull to percussion on lateralsides. Cano catheter to sigmoid in place. LABS: Lab Results Component Value Date/Time WBC 2.69 (L) 02/25/2024621 RBC 3.06 (L) 02/25/2024621 HGB 9.2 (L) 02/25/2024621 HCT 28.9 (L) 02/25/2024621 PLT 132 (L) 02/25/2024621 Lab Results Component Value Date/Time NA 133 (L) 02/25/2024621 K 3.1 (L) 02/25/2024621 CHLORIDE 99 02/25/2024 06 CO2 27 02/25/2024621 GLU 77 02/25/2024621 UN 10 02/25/2024621 CR 0.48 (L) 02/25/2024621 CA 7.8 (L) 02/25/2024621 Lab Results Component Value Date/Time PO4 3.5 02/25/2024621 Lab Results Component Value Date/Time MG 2.2 02/23/2024 0846 RADIOLOGY: 02/24/24 Abdominal Xray: Ongoing sigmoid distension, moderately increased from previous abdominal xray 02/20/24 CT Abd/Pelvis: Noted ventral hernia. Baudilio Dawkins, MS, 02/25/2024 8:53 AM [facility] Surgery Service I Cecilio Salazar MD, saw the patient with the medical student and performed, or re- performed, the physical exam and medical decision-making and have verified the accuracy of all the medical student documentation and edited as necessary. Cecilio Salazar MD, 02/25/2024 9:47 AM General Surgery, PGY-5 P: [phone] Surgery Discharge Milestones (Inpatient Primary Team only): FACULTY NOTE I saw and evaluated the patient on the date of the resident's note. I discussed with the resident and agree with the resident???s findings and plan documented in the resident???s note from above. Anyrevisions by me are documented. Jonnie Matta MD, 02/29/2024 6:59 AM * Ernestine Toribio MD - 02/24/2024 5:01 PM CDT MEDICINE PROGRESS NOTE - Staff Cathy Raymond : 1965 Sex: female Patient Summary: Cathy Raymond is a 58 yo female with decompensated cirrhosis with significant ascites admitted on 02/02/2024 with a displaced periprosthetic femur fracture from a fall at home. She was also found to have acute on chronic severe chronic bowel distension. Assessment & Plan: Acute on Chronic distention of the sigmoid colon, S/p decompression colonoscopy (02/10) and flexible sigmoidoscopy (02/14) Possible sigmoid volvulus (ruled out) Complicated multifactorial polyneuropathy.On admission, discussion with Radiology and the findings in the sigmoid are chronic seen in imaging dating back to 2016. A CT abdomen/pelvis with increase inrectosigmoid colonic distention. Colonic decompression performed on 02/10 with improvement. However, a bdominal xray on 02/13 with worsening sigmoid distension compared to xray on 02/11. Rectal tube placed on 02/13 and removed 02/14. Sigmoidoscopy performed February 14, and abdominal xray done after flexible sigmoidoscopy with no bowel obstruction. Her bowel remained pretty distended despite the removal of 13 L paracentesis, and on 02/19 she reported more discomfort. She had refused her suppository the previous 2 mornings resulting in decreased stool output. GI saw her and recommended rectal tube placement and conservative management. - Surgery consulted, appreciate assistance - Would recommend limiting to clear liquid diet, consider advancing pending clinical improvement - Cano cathter in sigmoid to remain in place, to gravity drainage - Minimize use of narcotics - Would recommend serial abdominal x-rays - Follow electrolytes and replete - Continue conservative management - No indication for surgical intervention at this time - Loop colostomy would not be recommended for this patient - Surgical management of colonic pseudo-obstruction would likely entail subtotal colectomy with endileostomy - Her medical co-morbidities would likely prevent any future attempts to re- establish GI continuity - She is a moderate to high risk surgical candidate given her Vik-Hwang B cirrhosis, with 30% chance all cause mortality perioperatively and significant morbidity with an up to 65% chance of any complications, 50% chance of serious complication - GI consulted, appreciate assistance -Ongoing conservative management with bowel regimen. Outside of conservative management, GI does not have anything to offer at this time. -Limit narcotics as able -We recommend avoidance of neostigmine at this juncture given her cardiovascular risk and cirrhosis. - Continue red rubber Ruiz catheter and aggressive bowel regimen -Oxycodone decreased to 5 mg p.o. 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 Paracentesis in ED (4L), 02/07 (4L)and 02/15(6L) 02/18 (7.3L.). MELD 3.0: 17 at 02/24/2024 11:25 AM MELD-Na: 11 at 02/24/2024 11:25 AM Calculated from: Serum Creatinine: 0.55 mg/dL (Using min of 1 mg/dL) at 02/24/2024 11:25 AM Serum Sodium: 132 mmol/L at 02/24/2024 11:25 AM Total Bilirubin: 0.6 mg/dL (Using min of 1 mg/dL) at 02/24/2024 11:25 AM Serum Albumin: 2.6 g/dL at 02/24/2024 11:25 AM INR(ratio): 1.5 at 02/24/2024 11:25 AM Age at listing (hypothetical): 58 years Sex: Female at 02/24/2024 11:25 AM - Holding diuretics due to hyponatremia. She has increasing edema/anasarca and would ideally restart once diet advanced, but may not be possible as previously caused hyponatremia Hyponatremia. Na 132 today. Hyponatremia likely due to diuretic use. - Continue to monitor Intermittent hypotension Due to liver disease. Received 25 gram of albumin 02/18 and 100 grams 02/17.SBP 80s and 90s for past few days. She is asymptomatic. Hgb stable. No fevers. Lactate normal. - Continue to monitor Acute displaced angulated periprosthetic fracture of the distal femur s/p IMN R Femur Osteoporosis managed with oral alendronate Prior left femur fracture s/p IMN 2019 - Orthopedics consulted, appreciate assistance - Pain control with Tylenol 650 mg TID and Oxycodone 5 mg BID PRN - Continue Lovenox x4 weeks through 03/04 or as long as in the hospital - PT/OT, awaiting ANA placement Diabetic neuropathic ulceration, full thickness, with fat layer exposed MSSA positive right foot wound culture - Podiatry consulted, appreciate assistance - Follow up with Podiatry outpatient - Completed two week course of cefazolin MSSA bacteremia Bacillus species not anthracis in one set of blood culture-contaminant Ecoli UTI with microscopic hematuria Blood cultures from outside Hospital with one set finalized and growing MSSA. Also notified by Hospital, patient had a right foot wound culture growing MSSA as well. 02/03 blood culture with no growth to date. -ID consulted, appreciate assistance - Completed course of cefazolin to cover MSSA and urine E. Coli.Total course 02/01-02/14, 2 weeks Urinary retention Patient noted to be retaining urine, requiring straight catheterization. Cano replaced on 02/07. - Follow up with Urology Sacral ulcer, POA, Stage 2 - Wound care per [facility] nurse Hypokalemia (Resolved) Anemia, stable. - Continue to monitor # Hypothyroidism on Levothyroxine # Chronic neuropathic pain on Gabapentin # Diabetes mellitus type 2 # Obstructive sleep apnea # Obesity with BMI 32 # Vitamin B12 deficiency # CIDP # Neurogenic bowel/bladder # Seasonal allergies # Major depression # Constipation # Insomnia # GERD Diet: Diet Supplement: Hi protein juice Diet: Clear Liquid; No Added Salt (3-4 Gm Sodium) DVT PPx: Lovenox Code Status: Full Code Therapies: PT following and OT following Dispo: Not medically ready Subjective/Events of Past 24 Hours: Hospital Day: 22 Ms. Raymond reports doing ok this morning. She reports nausea last night after dinner. She denies nausea this morning. She denies chest pain or shortness of breath. Objective: Vital Signs: BP 104/60 (Cuff Location: Left Arm) Pulse 66 Temp 36.1 ??C (97 ??F) (Oral) Resp 16 Ht 1.727m (5' 8) Wt 98.4 kg (217 lb) SpO2 95% BMI 32.99 kg/m?? Temp (24hrs), Av.4 ??C (97.5 ??F), Min:36.1 ??C (97 ??F), Max:36.6 ??C (97.9 ??F) Intake/Output Summary (Last 24 hours) at 02/24/2024 1701 Last data filed at 02/24/2024 1427 Gross per 24 hour Intake 630 ml Output 2256 ml Net -1626 ml Physical Exam: GEN: Awake and alert, not in acute distress HEENT: Normocephalic, atraumatic, no scleral icterus CV: Regular rate and rhythm, no murmurs, rubs or gallops PULM: Anterior lung lenz: Clear to ausculation bilaterally, no wheezes, rales or rhonchi ABD: Distended, normal bowel sounds, soft, non-tender to palpation, no rigidity or guarding EXT: No pedal edema NEURO: Awake and alert, answers all questions, moves all limbs Lab and diagnotic results: Pertinent labs and imaging personally reviewed in [facility] and applied to medical decision making. Ernestine Toribio MD, 02/24/2024 5:01 PM Hospitalist - Department of Medicine Page via [facility] MDM: The patient's problem complexity is: [x] High or [] Moderate because 2 of the following apply: Problems [x] Patient has either an acute illness posing a threat to bodily function [x] and/or one acute/chronic illness with severe exacerbation, progression, or side effects from treatment Data [x] I ordered new tests [x] I reviewed tests [] I took further history from the patient's family or outside providers [x] I reviewed consultants notes ----- [x] I reviewed a test/image and provided my own personal interpretation ----- [] I interpreted tests someone else ordered (reviewing labs/imaging) [x] I talked to a websphere commerce consultant and/or members of the case management and nursing team During this visit, I also did the following adding to morbidity of this patient [] I escalated the level of care [] I held a goals of care discussion [] I prescribed opiates/benzos [x] I continued/started a medication requiring intensive monitoring for toxicity * Kianna Rice RD - 02/24/2024 1:00 PM CDT Problem: Nutrition, Imbalanced: Inadequate Oral Intake (Adult, Obstetrics) Goal: Identify Signs and Symptoms and Related Risk Factors Outcome: In progress Nutrition Assessment Reason for Assessing Patient: Follow-up Orders Placed This Encounter Procedures Diet: Clear Liquid with high protein juice Nutrition Support:None Malnutrition Diagnosis: Malnutrition of a moderate degree Assessment: Pt remains on restricted diet d/t on-going sigmoid distention. I accidentally ate the chicken meal last night and I was so hungry I had almost all of it and then had a lot of nausea and pain and almost through up. Cano catheter in sigmoid with 500 ml stool output. Distention improving but remains significant. Pt is very unhappy with the clear liquid diet as she does not have many options that she likes, I don't like the jello or the beef broth. I can eat the chicken broth but I am getting sick of that too. She does not care for the high protein juice but RD explained that it is the only protein option for her on clear liquids and really encouraged her to try to drink it. Goal(s) Advance to solid food by next RD follow up (Not met- in progress ) Nutrition Intervention(s) Encouraged her to drink the clear liquid supplement Recommendations to Physician Consider full liquid diet with Boost each meal to allow some more options if possible If remains on clear liquid, consider PPN to prevent further decline in skin integrity ( patient with partial thickness wound on sacrum) Standard PPN solution 4.25/5 @ 75 ml/hr continuous with clinolipid @ 10 ml/hr X 24 hours continuousto provide 1092 kcal and 76 grams protein Estimated Nutritional Needs: Calories: [id number] Protein: 75+ grams/day Fluid: per primary team Evidence of Malnutrition: Etiology: Chronic illness Energy Intake: Does not meet criteria Weight loss: None (weight up with edema and ascites) Body fat: moderate depletion (noted in UE) Muscle mass: moderate depletion (Noted in UE) Fluid accumulation: Moderate edema (LE + severe ascites) Additional Nutrition Factors: Decompensated cirrhosis admitted with femur fx and found to have severe bowel distention Skin: Sacral wound ( unclear if pressure related or moisture but is partial thickness - wound team following) Pertinent Medical Tests and Procedures: GI and surgery following no current plan for surgery intervention. 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 ) * Jonnie Matta MD - 02/24/2024 8:53 AM CDT [facility] PROGRESS NOTE - MS4/PGY 1 SUMMARY: Cathy Raymond is a 58 y.o. female with decompensated cirrhosis with ascites, neuropathy with neurogenic bowel and bladder, alcohol use d/o, hypothyroidism, T2DM, MAX, gastric bypass 2002 with history of marginal ulcer, osteoporosis who was admitted on 02/02/2024 after fall from standing height w/left femur fx s/p IMN w/ ortho 02/04. On admission there was concern for sigmoid volvulus for which GI and surgery were consulted however it was felt that her imaging was similar to prior representing a chronic sigmoid dilation. Patient is a poor surgical candidate given her medical comorbidities anddue to the chronic nature of her condition, so no surgical intervention was indicated. 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 She underwent colonoscopy on 02/10 and flex sigmoidoscopy 02/14 with improvement in distention/dilation. Surgery was consulted again for increased distention and bilateral flank pain on 02/19 after abdominal XR showed changes in colonic dilation when compared with previous XR. CT obtained which showed dilation of sigmoid colon up to 13.3cm, similar in appearance to CT from 02/10. No evidence of obstruction, volvulus, or perforation. This is most consistent with continued colonic pseudo-obstruction. Cano catheter placed in the sigmoid with return of 1200 mL of liquid stool yesterday and ongoing symptomatic relief. ASSESSMENT/PLAN: - Would recommend limiting to clear liquid diet, consider advancing pending clinical improvement - Cano cathter in sigmoid to remain in place, to gravity drainage - Minimize use of narcotics - Would recommend serial abdominal x-rays - Follow electrolytes and replete - Continue conservative management - No indication for surgical intervention at this time - Loop colostomy would not be recommended for this patient - Surgical management of colonic pseudo-obstruction would likely entail subtotal colectomy with endileostomy - Her medical co-morbidities would likely prevent any future attempts to re- establish GI continuity - She is a moderate to high risk surgical candidate given her Vik-Hwang B cirrhosis, with 30% chance all cause mortality perioperatively and significant morbidity with an up to 65% chance of any complications, 50% chance of serious complication - Surgery will continue to follow; please page the purple surgery team pager with any questions or concerns. SUBJECTIVE: Tiny had worsened abdominal pain, nausea and some dry heaving with solid foods yesterday. This has resolved after clear liquid diet. Her abdominal pain and distension continue to be improved from prior to placement of rectal tube. She denies ongoing nausea or vomiting. PHYSICAL EXAM: Vitals: 02/24/24 0738 BP: 99/61 Pulse: 70 Resp: 17 Temp: 36.6 ??C (97.9 ??F) SpO2: 98% General: Alert and oriented. No acute distress. Pulmonary: Breathing comfortably on room air. Abdominal: Markedly distended abdomen. Slightly rigid in the midline, softer laterally. Mild generalized tenderness to palpation. Tympanic to percussion in epigastrium, dull to percussion on lateral sides. Cano catheter to sigmoid in place. LABS: Lab Results Component Value Date/Time WBC 3.17 (L) 02/23/2024 0846 RBC 3.23 (L) 02/23/2024 0846 HGB 9.7 (L) 02/23/2024 0846 HCT 31.0 (L) 02/23/2024 0846 PLT 138 (L) 02/23/2024 0846 Lab Results Component Value Date/Time NA 129 (L) 02/23/2024 0846 K 3.3 (L) 02/23/2024 0846 CHLORIDE 96 02/23/2024 0846 CO2 24 02/23/2024 0846 GLU 154 (H) 02/23/2024 0846 UN 11 02/23/2024 0846 CR 0.52 02/23/2024 0846 CA 7.6 (L) 02/23/2024 0846 Lab Results Component Value Date/Time PO4 3.5 02/21/2024 0838 Lab Results Component Value Date/Time MG 2.2 02/23/2024 0846 RADIOLOGY: 02/23/24 Abdominal Xray: Interval improvement in sigmoid distension. 02/20/24 CT Abd/Pelvis: Noted ventral hernia. Baudilio Dawkins, MS, 02/24/2024 8:56 AM [facility] Surgery Service Surgery Discharge Milestones (Inpatient Primary Team only): Naina Merritt MBBS, 02/24/2024 10:20 AM FACULTY NOTE I saw and evaluated the patient on the date of the resident's note. I discussed with the resident and agree with the resident???s findings and plan documented in the resident???s note from above. Anyrevisions by me are documented. Jonnie Matta MD, 02/24/2024 6:18 PM * Mando Briceno, PT - 02/23/2024 6:31 PM CDT Physical Therapy Progress Note PT Discharge Recommendations Discharge Recommendations: Post-acute placement [...] be determined at next level of care PT Equipment Recommended: Front wheeled walker;Manual wheelchair S: Patient supine in bed when PT arrives, agreeable to PT/OT co-treat, reporting significantly improved abdominal comfort this date with cano catheter in sigmoid Pain Pain Rating With Activity (Numeric): (Did not rate, reporting ongoing abdominal pain but significantly improved this date, did report R knee pain with transfers/standing activity) Participation Significantly Limited?: No Intervention: Positioning;Notified RN O:Knurling Machine Operator Used: None needed Mental Status Mental Status: Alert;Cooperative Follows Directions: Consistently follows commands Restrictions/Precautions Weight Bearing Restrictions: NWB R LE, OK to weight bear for transfers Complies w/ Weight Bearing?: Yes Precautions: Other (Falls, Cano Catheter, additionally with Cano catheter in sigmoid to suction for stool - OK to mobilize per [facility]) Complies w/ Precautions?: Yes Vital Signs 02/22/2024 1550 02/23/2024 0715 02/23/2024 1545 BP: 117/78 95/59 110/72 Patient Position for BP: Sitting Lying Down Lying Down Pulse: 64 69 -- SpO2: 100 % 95 % -- Room Air Transfer & Bed Mobility Supine to/from Sit: Maximum assist (Minimal assist of 1 to sit EOB with HOB elevated and heavy use of bedrails, max to total A of 2 for sit to supine secondary to difficulty scooting on specialty mattress as well as core instability/abdominal discomfort with posterior lean) Sit to/from Stand: Maximum assist (Mod to Max A of 2 with FWW, performed x 2) Sit to/from Stand - Method: From elevated surface;w/ Assistive device (FWW) Scooting: Maximum assist (With AirTaps/drawsheet, patient able to assist with LEs) Sitting Static Balance Level of Assistance: Upper Extremity Support Other: Sat EOB for total of ~15 minutes Fall Risk Assessment: Patient is deemed high fall risk per protocol Positioning: Patient supine in bed with all needs within reach at end of session Treatment rendered: Bed mobility training;Positioning;Balance/coordination training;Transfer training Total treatment time: 30 minutes THERAPEUTIC/FUNCTIONAL ACTIVITY: Mobility/transfer training with cueing/assist from therapist as noted above. Patient remains fearful of standing, reporting some increased knee pain with standing this date when standing with FWW as opposed to with Stacy Stedy in previous session (when knees were blocked by Stacy Stedy knee pad ), maximal cues/assist to attempt more upright posture A: Patient continues to make steady progress toward functional PT goals per progression to standingwith walker this date. Continues to require predominately mod to max assist for functional mobility. Continuing to recommend post-acute placement at discharge. Patient will continue to benefit from acute PT intervention to address her deficits. P: Patient will be seen 2-4x/week until goals are met or patient is discharged. Next visit the planis to work on standing/repeated sit<>stands with Stacy Stedy vs FWW and assist of 2, sitting balance, LE strengthening/ROM exercises as tolerated, bed<>chair as tolerated. Problem: Decreased Transfer Skills Goal: Patient will transfer supine to/from sit Description: Patient will transfer supine to/from sit with (6) Modified Garrett in order to safely mobilize OOB by 03/04/24. Outcome: In progress Goal: Patient will transfer bed to/from wheelchair Description: Patient will transfer bed to/from wheelchair with (5) Supervision, Set-Up or Standby Prompting with sliding board or pivot method in order to progress to PLOF by 03/04/24. Outcome: In progress Problem: Decreased Wheelchair Mobility Goal: Improve manual wheelchair propulsion Description: Improve manual wheelchair propulsion >20m with (6) Modified Garrett in order to progress toward PLOF by 03/04/24. Outcome: In progress SPECIALIST FIELD ENGINEER Appropriate: Yes (For EOB activity and standing/transfers, no gait) Mando Briceno, PT 02/23/2024 Pager: [facility] * Eugenia Mead OTR/Bethanie - 02/23/2024 3:49 PM CDT Occupational Therapy Progress Note 02/23/2024 OT Discharge Recommendations Discharge Recommendations: Post-acute placement recommended Level/type of placement (OT): Sub-Acute Rehab facility Post Discharge Follow-up: OT at post-acute placement OT In-patient follow-up / recommended referrals: Continue skilled OT services to achieve the goals on the plan of care / maximize safety and independence with ADL's / IADL's: - Recommended Frequency: 2-4x / week - Anticipated Duration of OT services: throughout hospital stay - Interventions: ADL retraining, activity tolerance, and functional mobility Precautions/Restrictions: Activity Level: Up with Assist (02/07/24 1500) General Precautions: High falls risk (02/07/24 1500) Weight-bearing Restrictions: Right LE - NWB (ok to WB for transfers only) (02/09/24 1400) Complies w/ Weight Bearing?: Yes Complies w/ Precautions?: Yes SUBJECTIVE: You should have seen when they put that thing in, my belly just instantly deflated Pain Pain Rating With Activity (Numeric): 12/12 Location: RLE Participation Significantly Limited?: No Action Taken: Nursing aware and addressing;Repositioned patient with reported relief OBJECTIVE: Activities of Daily Living Toileting: Dependent (less than 25% patient effort) Toileting Comments: Cano cathter in sigmoid Functional Mobility Supine to/from Sit: (assist of 1 supine->sit, assist of 2 sit->supine) Sit to/from Stand : Dependent (less than 25% patient effort) (mod A x2 with FWW) Cognition Mental Status: Oriented x 3;Alert;Cooperative;Follows 1 step direction Delirium assessment: Confusion Assessment Method (CAM) Delirium prevention / intervention appears indicated? Yes, as a preventative measure: Interventions provided - engaged pt in functional tasks - promoted mobility Interdisciplinary Communication: RN: ok to see MD: ok to mobilize with cano catheter in sigmoid ASSESSMENT: Pt reports feeling better today overall, willing to work with therapy. Stacy mo unavailable therefore trialed sit->stand with FWW. Pt able to stand 2x with mod A x2. Pt is fearful instanding, tends to want to sit down immediately once up, difficulty fully extending trunk upright. Difficult to perform sit->supine, heavy assist of 2 although pt is improving with bridging which helps reposition once in bed. Assist required with all cares given pt's limited mobility. Continue to recommend post acute placement with ongoing OT services. This patient will continue to benefit from skilled OT services for ADL retraining, activity tolerance, and functional mobility to maximize independence and safety with ADLs. PLAN: Continue skilled OT services to achieve the goals on the plan of care: Plan For Next OT Session: --sit->stand Total treatment time: 30 minutes OT interventions and time spent on each: Self care/Home mgmt/ADL: 30 minutes LILY Ling/Bethanie Pager: [facility] * Jonnie Matta MD - 02/23/2024 1:43 PM CDT [facility] PROGRESS NOTE - PGY 1 SUMMARY: Cathy Raymond is a 58 y.o. female with decompensated cirrhosis with ascites, neuropathy with neurogenic bowel and bladder, alcohol use d/o, hypothyroidism, T2DM, MAX, gastric bypass 2002 with history of marginal ulcer, osteoporosis who was admitted on 02/02/2024 after fall from standing height w/left femur fx s/p IMN w/ ortho 02/04. On admission there was concern for sigmoid volvulus for which GI and surgery were consulted however it was felt that her imaging was similar to prior representing a chronic sigmoid dilation. Patient is a poor surgical candidate given her medical comorbidities anddue to the chronic nature of her condition, so no surgical intervention was indicated. 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 She underwent colonoscopy on 02/10 and flex sigmoidoscopy 02/14 with improvement in distention/dilation. Surgery was consulted again for increased distention and bilateral flank pain on 02/19 after abdominal XR showed changes in colonic dilation when compared with previous XR. CT obtained which showed dilation of sigmoid colon up to 13.3cm, similar in appearance to CT from 02/10. No evidence of obstruction, volvulus, or perforation. This is most consistent with continued colonic pseudo-obstruction. Today, red rubber catheter in rectum removed. Cano catheter placed in the sigmoid with return of 500 mL of liquid stool and some symptomatic relief. ASSESSMENT/PLAN: - Would recommend limiting to clear liquid diet, consider advancing pending clinical improvement - Cano cathter in sigmoid to remain in place, to gravity drainage overnight - Minimize use of narcotics - Would recommend serial abdominal x-rays - Follow electrolytes and replete - Continue conservative management - No indication for surgical intervention at this time - Loop colostomy would not be recommended for this patient - Surgical management of colonic pseudo-obstruction would likely entail subtotal colectomy with endileostomy - Her medical co-morbidities would likely prevent any future attempts to re- establish GI continuity - She is a moderate to high risk surgical candidate given her Vik-Hwang B cirrhosis, with 30% chance all cause mortality perioperatively and significant morbidity with an up to 65% chance of any complications, 50% chance of serious complication - Surgery will continue to follow; please page the [facility] team pager with any questions or concerns. SUBJECTIVE: Tiny is doing somewhat better today after symptomatic relief from the red rubber catheter. She has ongoing abdominal pain and discomfort. She continues to feel hungry. PHYSICAL EXAM: Vitals: 02/23/24 0715 BP: 95/59 Pulse: 69 Resp: 16 Temp: 37 ??C (98.6 ??F) SpO2: 95% Physical Exam Constitutional: General: She is in acute distress. Abdominal: General: There is distension. Comments: Abdomen slightly rigid, somewhat improved after decompression. Mild generalized tenderness to palpation. Tympanic to percussion in epigastric region, dull to percussion to lateral sides on both sides. Cano catheter in place. Neurological: Mental Status: She is alert. Psychiatric: Mood and Affect: Affect is tearful. LABS: Lab Results Component Value Date/Time WBC 3.17 (L) 02/23/2024 0846 RBC 3.23 (L) 02/23/2024 0846 HGB 9.7 (L) 02/23/2024 0846 HCT 31.0 (L) 02/23/2024 0846 PLT 138 (L) 02/23/2024 0846 Lab Results Component Value Date/Time NA 129 (L) 02/23/2024 0846 K 3.3 (L) 02/23/2024 0846 CHLORIDE 96 02/23/2024 0846 CO2 24 02/23/2024 0846 GLU 154 (H) 02/23/2024 0846 UN 11 02/23/2024 0846 CR 0.52 02/23/2024 0846 CA 7.6 (L) 02/23/2024 0846 Lab Results Component Value Date/Time PO4 3.5 02/21/2024 0838 Lab Results Component Value Date/Time MG 2.2 02/23/2024 0846 RADIOLOGY: Reviewed. Baudilio Dawkins, MS, 02/23/2024 1:43 PM [facility] Surgery Service RESIDENT WITH STUDENT: I saw the patient with the medical student today, and performed, or re-performed, the physical exam and medical decision-making in the provision of this service and have verified the accuracy of all the medical student documentation and edited as necessary. Yessy Garza MD, 02/23/2024 2:38 PM General Surgery PGY1 Surgery Discharge Milestones (Inpatient Primary Team only): FACULTY NOTE I saw and evaluated the patient on the date of the resident's note. I discussed with the resident and agree with the resident???s findings and plan documented in the resident???s note from above. Anyrevisions by me are documented. Jonnie Matta MD, 02/23/2024 3:06 PM * Ernestine Toribio MD - 02/23/2024 1:33 PM CDT MEDICINE PROGRESS NOTE - Staff Cathy Raymond : 1965 Sex: female Patient Summary: Cathy Raymond is a 58 yo female with decompensated cirrhosis with significant ascites admitted on 02/02/2024 with a displaced periprosthetic femur fracture from a fall at home. She was also found to have acute on chronic severe chronic bowel distension. Assessment & Plan: Acute on Chronic distention of the sigmoid colon, S/p decompression colonoscopy (02/10) and flexible sigmoidoscopy (02/14) Possible sigmoid volvulus (ruled out) Complicated multifactorial polyneuropathy.On admission, discussion with Radiology and the findings in the sigmoid are chronic seen in imaging dating back to 2016. A CT abdomen/pelvis with increase inrectosigmoid colonic distention. Colonic decompression performed on 02/10 with improvement. However, a bdominal xray on 02/13 with worsening sigmoid distension compared to xray on 02/11. Rectal tube placed on 02/13 and removed 02/14. Sigmoidoscopy performed May 13, and abdominal xray done after flexible sigmoidoscopy with no bowel obstruction. Her bowel remained pretty distended despite the removal of 13 L paracentesis, and on 02/19 she reported more discomfort. She had refused her suppository the previous 2 mornings resulting in decreased stool output. GI saw her and recommended rectal tube placement and conservative management. - GI and Surgery consulted, appreciate assistance - Continue red rubber Ruiz catheter and aggressive bowel regimen - Start regular diet tonight -Oxycodone decreased to 5 mg p.o. 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 Paracentesis in ED (4L), 02/07 (4L)and 02/15(6L) 02/18 (7.3L.). - Holding diuretics due to hyponatremia. She has increasing edema/anasarca and would ideally restart once diet advanced, but may not be possible as previously caused hyponatremia Hyponatremia. Na 129 today. Na 125 on 02/17. Hyponatremia likely due to diuretic use. - Continue to monitor Intermittent hypotension Due to liver disease. Received 25 gram of albumin 02/18 and 100 grams 02/17.She had been running in the 80s and 90s systolic for past few days. She is asymptomatic. Hgb stable. No fevers. Lactate normal. - Continue to monitor Acute displaced angulated periprosthetic fracture of the distal femur s/p IMN R Femur Osteoporosis managed with oral alendronate Prior left femur fracture s/p IMN 2019 - Orthopedics consulted, appreciate assistance - Pain control with Tylenol 650 mg TID and Oxycodone 5 mg BID PRN - Continue Lovenox x4 weeks through 03/04 or as long as in the hospital - PT/OT, awaiting ANA placement Diabetic neuropathic ulceration, full thickness, with fat layer exposed MSSA positive right foot wound culture - Podiatry consulted, appreciate assistance - Follow up with Podiatry outpatient - Completed two week course of cefazolin MSSA bacteremia Bacillus species not anthracis in one set of blood culture-contaminant Ecoli UTI with microscopic hematuria Blood cultures from outside Hospital with one set finalized and growing MSSA. Also notified by Hospital, patient had a right foot wound culture growing MSSA as well. 02/03 blood culture with no growth to date. -ID consulted, appreciate assistance - Completed course of cefazolin to cover MSSA and urine E. Coli.Total course 02/01-02/14, 2 weeks Urinary retention Patient noted to be retaining urine, requiring straight catheterization. Cano replaced on 02/07. - Follow up with Urology Sacral ulcer, POA, Stage 2 - Wound care per [facility] nurse Hypokalemia (Resolved) Anemia, stable. - Continue to monitor # Hypothyroidism on Levothyroxine # Chronic neuropathic pain on Gabapentin # Diabetes mellitus type 2 # Obstructive sleep apnea # Obesity with BMI 32 # Vitamin B12 deficiency # CIDP # Neurogenic bowel/bladder # Seasonal allergies # Major depression # Constipation # Insomnia # GERD Diet: Diet Supplement: Hi protein juice Diet: Full Liquid; No Added Salt (3-4 Gm Sodium) DVT PPx: Lovenox Code Status: Full Code Therapies: PT following and OT following Dispo: Not medically ready Subjective/Events of Past 24 Hours: Hospital Day: 21 Ms. Raymond reports doing well this morning. She reports improving abdominal pain. She is tolerating adiet with no nausea or vomiting. Objective: Vital Signs: BP 95/59 (Cuff Location: Left Arm) Pulse 69 Temp 37 ??C (98.6 ??F) (Oral) Resp 16 Ht 1.727 m (5' 8) Wt 98.4 kg (217 lb) SpO2 95% BMI 32.99 kg/m?? Temp (24hrs), Av.7 ??C (98 ??F), Min:36.3 ??C (97.4 ??F), Max:37 ??C (98.6 ??F) Intake/Output Summary (Last 24 hours) at 02/23/2024 1333 Last data filed at 02/23/2024 0612 Gross per 24 hour Intake 240 ml Output 1000 ml Net -760 ml Physical Exam: GEN: Awake and alert, not in acute distress HEENT: Normocephalic, atraumatic, no scleral icterus CV: Regular rate and rhythm, no murmurs, rubs or gallops PULM: Anterior lung lenz: Clear to ausculation bilaterally, no wheezes, rales or rhonchi ABD: Distended, normal bowel sounds, soft, non-tender to palpation, no rigidity or guarding EXT: No pedal edema NEURO: Awake and alert, answers all questions, moves all limbs Lab and diagnotic results: Pertinent labs and imaging personally reviewed in [facility] and applied to medical decision making. Ernestine Toribio MD, 02/23/2024 1:33 PM Hospitalist - Department of Medicine Page via [facility] MDM: The patient's problem complexity is: [x] High or [] Moderate because 2 of the following apply: Problems [x] Patient has either an acute illness posing a threat to bodily function [x] and/or one acute/chronic illness with severe exacerbation, progression, or side effects from treatment Data [x] I ordered new tests [x] I reviewed tests [] I took further history from the patient's family or outside providers [x] I reviewed consultants notes ----- [x] I reviewed a test/image and provided my own personal interpretation ----- [] I interpreted tests someone else ordered (reviewing labs/imaging) [x] I talked to a websphere commerce consultant and/or members of the case management and nursing team During this visit, I also did the following adding to morbidity of this patient [] I escalated the level of care [] I held a goals of care discussion [] I prescribed opiates/benzos [x] I continued/started a medication requiring intensive monitoring for toxicity * Barbara Blevins PA-C - 02/23/2024 7:41 AM CDT Images from the original note were not included. GASTROENTEROLOGY PROGRESS NOTE - NEHA Raymond : 1965 Sex: female IMPRESSION AND RECOMMENDATIONS: Cathy Raymond is a 58yo female with history of decompensated alcohol related cirrhosis, polyneuropathy, T2DM, MAX, gastric bypass 2002 with history of marginal ulcer, osteoporosis admitted 02/02/24after fall. FTH left femur fracture and distended sigmoid colon on CT prompting GI consult. Sigmoiddistension noted on previous imaging dating back to 2017. Colonoscopy and flex sig have been performed during this admission with symptomatic relief but unfortunately has returning symptoms soon after procedure. Abd XR 02/19 with worsening sigmoid distension, prompting CT scan. CT did not show significant worsening of distension. Have recommended conservative management with aggressive bowel regimen, minimizing narcotics. Rectal tube re-inserted evening of 02/20/24 and patient has had significantstool output. Sigmoid distension Abdominal distention improved today after insertion of red rubber Ruiz catheter yesterday evening. Received MiraLAX and senna twice daily with 1 suppository yesterday 02/21. Patient has been passing stool. Decreased abdominal pain. Has been advancing diet. Do not feel repeating endoscopy will beof benefit to patient in future given how quickly symptoms returned after decompression. Recommendations: -Ongoing conservative management with bowel regimen. Outside of conservative management, GI does not have anything to offer at this time. -Limit narcotics as able -We recommend avoidance of neostigmine at this juncture given her cardiovascular risk and cirrhosis. GI team will sign off. Please don't hesitate to reach out with additional questions or concerns. It was a pleasure to participate in the care of this patient. Patient seen, examined and plan formulated with GI staff, Dr. Hendrickson. SUBJECTIVE: Patient evaluated at bedside. States she is doing better today. After insertion of red rubber catheter yesterday, she noted that her abdominal distention improved greatly. Decreased abdominal pain today. Is passing stool appropriately. Continues to be hungry and interested in advancing diet. PHYSICAL EXAMINATION: VS: Vitals: 02/23/24 0715 BP: 95/59 Pulse: 69 Resp: 16 Temp: 37 ??C (98.6 ??F) SpO2: 95% GEN: alert, cooperative, and in no distress ABD: ongoing abdominal distension but abdomen much softer from prior exams REVIEW OF LABORATORY, PATHOLOGY AND RADIOLOGY DATA: Reviewed and significant for Lab Results Component Value Date/Time WBC 3.17 (L) 02/23/2024 0846 RBC 3.23 (L) 02/23/2024 0846 HGB 9.7 (L) 02/23/2024 0846 HCT 31.0 (L) 02/23/2024 0846 PLT 138 (L) 02/23/2024 0846 MCV 96.0 02/23/2024 0846 MCH 30.0 02/23/2024 0846 MCHC 31.3 02/23/2024 0846 RDW 14.9 (H) 02/23/2024 0846 MPV 10.4 02/23/2024 0846 NRBCA 0.3 (H) 02/07/2024 0605 NEUTNO 4.49 02/03/2024 0803 LYMPHAB 0.69 (L) 02/03/2024 0803 MONOABSNO 0.53 02/03/2024 0803 EOSNUMB 0.00 02/03/2024 0803 BASO 0.01 02/03/2024 0803 Barbara Blevins PA-C, 02/23/2024 7:41 AM * Mando Briceno, PT - 02/22/2024 4:43 PM CDT Physical Therapy Progress Note PT Discharge Recommendations Discharge Recommendations: Post-acute placement [...] be determined at next level of care PT Equipment Recommended: Front wheeled walker;Manual wheelchair S: Patient supine in bed when PT arrives, agreeable to PT/OT co-treat session Pain Pain Rating With Activity (Numeric): (Did not rate, reporting ongoing abdominal pain, R LE pain currently tolerable) Participation Significantly Limited?: No Intervention: Positioning;Notified RN O:Knurling Machine Operator Used: None needed Mental Status Mental Status: Alert;Cooperative Follows Directions: Consistently follows commands Restrictions/Precautions Weight Bearing Restrictions: NWB R LE, OK to weight bear for transfers Complies w/ Weight Bearing?: Yes Precautions: Other (Falls, rectal tube) Complies w/ Precautions?: Yes Vital Signs 02/22/2024 0437 02/22/2024 0755 02/22/2024 1550 BP: -- 97/62 117/78 Patient Position for BP: Lying Down Lying Down Sitting Pulse: -- 64 64 SpO2: 97 % 99 % 100 % Room Air Transfer & Bed Mobility Supine to/from Sit: Maximum assist (Minimal assist of 1 to sit EOB with HOB elevated and heavy use of bedrails, still max to total A of 2 for sit to supine secondary to difficulty scooting on specialty mattress as well as core instability/abdominal discomfort with posterior lean) Sit to/from Stand: Moderate assist (Mod A of 2 with Stacy Stedy) Sit to/from Stand - Method: From elevated surface;w/ Assistive device (Stacy Stedy) Scooting: Total (dependent) (With AirTaps/drawsheet) Sitting Static Balance Level of Assistance: Upper Extremity Support Other: Sat EOB or in Stacy Stedy for total of ~25 minutes Interdisciplinary Communication RN: ZENOBIA to see, updated re: session performance OT: Co-treat Fall Risk Assessment: Patient is deemed high fall risk per protocol Positioning: Patient supine in bed with all needs within reach at end of session Treatment rendered: Bed mobility training;Positioning;Balance/coordination training;Transfer training Total treatment time: 40 minutes THERAPEUTIC/FUNCTIONAL ACTIVITY: Mobility/transfer training and sitting balance/activity with cueing/assist from therapist as noted above. Increased time required for management of lines/tubes, specialty mattress, etc. A: Patient making steady progress toward functional PT goals per progression to standing with Stacy Stedy for first time this session, continues to require overall reduced assist with mobility despiteongoing medical complications - goals extended (see below) to reflect ongoing progress. From a PT standpoint, continuing to recommend post-acute placement at discharge. Patient will continue to benefit from acute PT intervention to address her deficits. P: Patient will be seen 2-4x/week until goals are met or patient is discharged. Next visit the planis to work on standing activity, bed<>chair with Stacy Stedy as tolerated, sitting balance, LEstrengthening and ROM. Problem: Decreased Transfer Skills Goal: Patient will transfer supine to/from sit Description: Patient will transfer supine to/from sit with (6) Modified Garrett in order to safely mobilize OOB by 03/04/24. Outcome: In progress Goal: Patient will transfer bed to/from wheelchair Description: Patient will transfer bed to/from wheelchair with (5) Supervision, Set-Up or Standby Prompting with sliding board or pivot method in order to progress to PLOF by 03/04/24. Outcome: In progress Problem: Decreased Wheelchair Mobility Goal: Improve manual wheelchair propulsion Description: Improve manual wheelchair propulsion >20m with (6) Modified Garrett in order to progress toward PLOF by 03/04/24. Outcome: In progress SPECIALIST FIELD ENGINEER Appropriate: Yes (For EOB activity and standing/transfers with Stacy Mo, no gait) Mando Briceno, PT 02/22/2024 Pager: [facility] * Eugenia Mead, OTR/L - 02/22/2024 2:34 PM CDT Occupational Therapy Progress Note 02/22/2024 OT Discharge Recommendations Discharge Recommendations: Post-acute placement recommended Level/type of placement (OT): Sub-Acute Rehab facility Post Discharge Follow-up: OT at post-acute placement Equipment Recommended: Equipment needs to be determined at next level of care OT In-patient follow-up / recommended referrals: Continue skilled OT services to achieve the goals on the plan of care / maximize safety and independence with ADL's / IADL's: - Recommended Frequency: 2x / week - Anticipated Duration of OT services: throughout hospital stay - Interventions: ADL retraining, activity tolerance, and functional mobility PM&R Consult Recommended: Not at this time Precautions/Restrictions: Activity Level: Up with Assist (02/07/24 1500) General Precautions: High falls risk (02/07/24 1500) Weight-bearing Restrictions: Right LE - NWB (ok to WB for transfers only) (02/09/24 1400) Complies w/ Weight Bearing?: Yes SUBJECTIVE: Pt feels like she is moving BLEs easier than on admission Pain Pain Rating With Activity (Numeric): 3/10 Location: RLE Participation Significantly Limited?: No Action Taken: Nursing aware and addressing;Repositioned patient with reported relief OBJECTIVE: Activities of Daily Living Toileting: Dependent (less than 25% patient effort) Toileting Comments: fecal management system Functional Mobility Supine to/from Sit: (assist of 1 supine->sit, assist of 2 sit->supine) Sit to/from Stand : (mod A x2 with stacy stedy from elevated bed) Cognition Mental Status: Oriented x 3;Alert;Cooperative;Follows 1 step direction Delirium assessment: Confusion Assessment Method (CAM) Acute onset OR fluctuating course: No CAM result: Negative Delirium prevention / intervention appears indicated? Yes, as a preventative measure: Interventions provided - engaged pt in functional tasks - promoted mobility Interdisciplinary Communication: RN: ok to see ASSESSMENT: Pt with multiple active medical complications but willing to participate. Able to standwith use of stacy stedy today for first time, requires mod A x2 from elevated bed. Continue to recommend post acute placement with ongoing OT services. This patient will continue to benefit from skilled OT services for ADL retraining, activity tolerance, and functional mobility to maximize independence and safety with ADLs. PLAN: Continue skilled OT services to achieve the goals on the plan of care: Plan For Next OT Session: --stacy stedy transfer Total treatment time: 40 minutes OT interventions and time spent on each: Self care/Home mgmt/ADL: 40 minutes LILY Ling/Bethanie Pager: [facility] OT Department * Courtney Potts LGSW - 02/22/2024 2:34 PM CDT GINNY spoke to Ashley for admissions at [facility] [phone] can take the patient on Thursday. Please keep Ashley updated as to discharge plan. * Francy Mc MD - 02/22/2024 11:31 AM CDT MEDICINE PROGRESS NOTE - Staff Cathy Raymond : 1965 Sex: female Patient Summary: Cathy Raymond is a 58 yo female with decompensated cirrhosis with significant ascites, who presents with a displaced periprosthetic femur fracture from a fall at home. Patient also with recurrent severe chronic bowel distension. Assessment & Plan: Acute on Chronic distention of the sigmoid colon, S/p decompression colonoscopy (02/10) and flexible sigmoidoscopy (02/14) Possible sigmoid volvulus (ruled out) Complicated multifactorial polyneuropathy.On admission, discussion with Radiology and the findings in the sigmoid are chronic seen in imaging dating back to 2016. A CT abdomen/pelvis with increase inrectosigmoid colonic distention. Colonic decompression performed on 02/10 with improvement.. However, abdominal xray on 02/13 with worsening sigmoid distension compared to xray on 02/11. Rectal tube placed on 02/13 and removed 02/14. Sigmoidoscopy performed February 14, and abdominal xray done after flexible sigmoidoscopy with no bowel obstruction. Her bowel remained pretty distended despite the removal of 13 L paracentesis, and on 02/19 she reported more discomfort. She had refused her suppository the previous 2 mornings resulting in decreased stool output. GI saw her and recommended rectal tube placement and conservative management. - Cont rectal tube, aggressive bowel regimen and full liquid diet. -Oxycodone decreased to 5 mg p.o. 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 Paracentesis in ED (4L), 02/07 (4L)and 02/15(6L) 02/18 (7.3L.). - Holding diuretics due to hyponatremia. She has increasing edema/anasarca and would ideally restart once diet advanced, but may not be possible as previously caused hyponatremia Hyponatremia 132 today. Sodium had steadily trended down since initiation of diuretics. When dose was increased it dropped to 125. It improved with albumin and holding diuretics - monitor Intermittent hypotension Due to liver disease. Received 25 gram of albumin 02/18 and 100 grams 02/17. She had been running in the 80s and 90s systolic for past few days. She is asymptomatic. Hgb stable.No fevers. Lactate normal - monitor Acute displaced angulated periprosthetic fracture of the distal femur s/p IMN R Femur Osteoporosis managed with oral alendronate Prior left femur fracture s/p IMN 2019 - Orthopedics consulted, appreciate assistance - Pain control with scheduled Acetaminophen and PRN Oxycodone decreased to BID pRN - Continue Lovenox x4 weeks through 03/04 or as long as in the hospital - PT/OT, awaiting ANA placement Diabetic neuropathic ulceration, full thickness, with fat layer exposed MSSA positive right foot wound culture - Podiatry consulted, appreciate assistance - Follow up with Podiatry outpatient - Completed two week course of cefazolin MSSA bacteremia Bacillus species not anthracis in one set of blood culture-contaminant Ecoli UTI with microscopic hematuria Blood cultures from outside Hospital with one set finalized and growing MSSA. Also notified by Hospital, patient had a right foot wound culture growing MSSA as well. 02/03 blood culture with no growth to date. -ID consulted, appreciate assistance - Completed course of cefazolin to cover MSSA and urine E. Coli.Total course 02/01-02/14, 2 weeks Urinary retention Patient noted to be retaining urine, requiring straight catheterization. Cano replaced on 02/07. - Follow up with Urology vs TOV here. Doubt this would be successful with the amount of abdominal distention currently. Sacral ulcer, POA, Stage 2 - Wound care per [facility] nurse Hypokalemia (Resolved) Anemia, stable. - Continue to monitor # Hypothyroidism on Levothyroxine # Chronic neuropathic pain on Gabapentin # Diabetes mellitus type 2 # Obstructive sleep apnea # Obesity with BMI 32 # Vitamin B12 deficiency # CIDP # Neurogenic bowel/bladder # Seasonal allergies # Major depression # Constipation # Insomnia # GERD Diet: Diet Supplement: Hi protein juice Diet: Full Liquid; No Added Salt (3-4 Gm Sodium) DVT PPx: Lovenox Code Status: Full Code Therapies: PT following and OT following Dispo: Not medically ready Subjective/Events of Past 24 Hours: Hospital Day: 20 Abd is about the same today. Having stool output from rectal tube. Asking for her diet to be advanced Objective: Vital Signs: BP 97/62 (Cuff Location: Left Arm) Pulse 64 Temp 36.2 ??C (97.1 ??F) (Oral) Resp 18 Ht 1.727 m (5' 8) Wt 98.4 kg (217 lb) SpO2 99% BMI 32.99 kg/m?? Temp (24hrs), Av.6 ??C (97.8 ??F), Min:36.1 ??C (96.9 ??F), Max:37.2 ??C (99 ??F) Intake/Output Summary (Last 24 hours) at 02/22/2024 1131 Last data filed at 02/22/2024 0600 Gross per 24 hour Intake -- Output 1200 ml Net -1200 ml Physical Exam: GEN: Awake and alert, not in acute distress HEENT: Normocephalic, atraumatic, no scleral icterus CV: Regular rate and rhythm, no murmurs, rubs or gallops PULM: Anterior lung lenz: Clear to ausculation bilaterally, no wheezes, rales or rhonchi ABD: Very distended abdomen, tender to palpation at previous para site otherwise non tender, no rigidity or guarding, bs more normal today EXT: LLE with increasing edema. Bilateral dependent edema of upper thigh, right greater than left, pre sacral edema NEURO: Awake and alert, answers all questions, moves all limbs Lab and diagnotic results: Pertinent labs and imaging personally reviewed in [facility] and applied to medical decision making. Francy Mc MD, 02/22/2024 11:31 AM Hospitalist - Department of Medicine Page via [facility] * Chalo Shrestha MD - 02/22/2024 10:56 AM CDT [facility] PROGRESS NOTE - PGY 1 SUMMARY: Cathy Raymond is a 58 y.o. female with decompensated cirrhosis with ascites, neuropathy with neurogenic bowel and bladder, alcohol use d/o, hypothyroidism, T2DM, MAX, gastric bypass 2002 with history of marginal ulcer, osteoporosis who was admitted on 02/02/2024 after fall from standing height w/left femur fx s/p IMN w/ ortho 02/04. On admission there was concern for sigmoid volvulus for which GI and surgery were consulted however it was felt that her imaging was similar to prior representing a chronic sigmoid dilation. Patient is a poor surgical candidate given her medical comorbidities anddue to the chronic nature of her condition, so no surgical intervention was indicated. 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 She underwent colonoscopy on 02/10 and flex sigmoidoscopy 02/14 with improvement in distention/dilation. Surgery was consulted again for increased distention and bilateral flank pain on 02/19 after abdominal XR showed changes in colonic dilation when compared with previous XR. CT obtained which showed dilation of sigmoid colon up to 13.3cm, similar in appearance to CT from 02/10. No evidence of obstruction, volvulus, or perforation. This is most consistent with continued colonic pseudoobstruction. ASSESSMENT/PLAN: - Consider red rubber Ruiz catheter to relieve obstruction - Rectal tube to remain in place - No indication for emergent surgical intervention at this time. - Will defer medical management of colonic pseudo-obstruction to medicine team and GI - Surgery will continue to follow; please page [facility] pager with any questions or concerns. PHYSICAL EXAM: Vitals: 02/22/24 0755 BP: 97/62 Pulse: 64 Resp: 18 Temp: 36.2 ??C (97.1 ??F) SpO2: 99% Physical Exam Constitutional: General: She is in acute distress. Abdominal: General: There is distension. Comments: Abdomen slightly rigid Mild generalized tenderness to palpation. Tympanic to percussion in epigastric region, dull to percussion to lateral sides on both sides. . Rectal tube in place. Neurological: Mental Status: She is alert. Psychiatric: Mood and Affect: Affect is tearful. LABS: Lab Results Component Value Date/Time WBC 3.82 (L) 02/22/2024 0618 RBC 2.68 (L) 02/22/2024 0618 HGB 8.1 (L) 02/22/2024 0618 HCT 25.4 (L) 02/22/2024 0618 PLT 115 (L) 02/22/2024 0618 MCV 94.8 02/22/2024 0618 MCH 30.2 02/22/2024 0618 MCHC 31.9 02/22/2024 0618 RDW 15.3 (H) 02/22/2024 06 MPV 10.0 02/22/2024 0618 NRBCA 0.3 (H) 02/07/2024 0605 NEUTNO 4.49 02/03/2024 0803 LYMPHAB 0.69 (L) 02/03/2024 0803 MONOABSNO 0.53 02/03/2024 0803 EOSNUMB 0.00 02/03/2024 0803 BASO 0.01 02/03/2024 0803 Lab Results Component Value Date/Time NA 132 (L) 02/22/2024 0618 K 3.5 02/22/2024 0618 CHLORIDE 98 02/22/2024 0618 CO2 26 02/22/2024 0618 GLU 81 02/22/2024 0618 UN 13 02/22/2024 0618 CR 0.52 02/22/2024 0618 CA 7.6 (L) 02/22/2024 0618 Lab Results Component Value Date/Time PO4 3.5 02/21/2024 0838 Lab Results Component Value Date/Time MG 2.2 02/21/2024 0838 RADIOLOGY: Reviewed. Naina Merritt MBBS, 02/22/2024 10:56 AM [facility] Surgery Service, PGY-1 Surgery Discharge Milestones (Inpatient Primary Team only): FACULTY NOTE I saw and evaluated the patient on the date of the resident's note. I discussed with the resident and agree with the resident???s findings and plan documented in the resident???s note from above. Anyrevisions by me are documented. Chalo Shrestha MD, 02/22/2024 12:01 PM * Kianna Rice, RD - 02/22/2024 10:31 AM CDT Problem: Nutrition, Imbalanced: Inadequate Oral Intake (Adult, Obstetrics) Goal: Identify Signs and Symptoms and Related Risk Factors Outcome: In progress Nutrition Assessment Reason for Assessing Patient: Follow-up Orders Placed This Encounter Procedures Diet: Clear Liquid Nutrition Support: None Malnutrition Diagnosis: Malnutrition of a moderate degree Assessment: Pt with worsening sigmoid distention and changed to NPO over the weekend. Now on clear liquid diet but minimal intake. She reports fair intake when she is on a regular diet (I can eat a full bowl of green beans and maybe half a hamburger). She did review her low sodium handout the other day but is currently too uncomfortable to discuss it. Noted 13 liters of ascites removed 02/15. Goal(s) Advance to solid food by next RD follow up Nutrition Intervention(s) Discussed low sodium handout but patient was not up for talking about it right now. She does have the handout and reports looking at it previously Will add high protein clear liquid supplement to meals Continue MVI daily Recommendations to Physician Resume regular JOSE diet as able Estimated Nutritional Needs: Calories: [id number] Protein: 75+ grams/day Fluid: per primary team Evidence of Malnutrition: Etiology: Chronic illness Energy Intake: Does not meet criteria Weight loss: None (weight up with edema and ascites) Body fat: moderate depletion (noted in UE) Muscle mass: moderate depletion (Noted in UE) Fluid accumulation: Moderate edema (LE + severe ascites) Additional Nutrition Factors: Decompensated cirrhosis admitted with femur fx and found to have severe bowel distention Skin: Stage Pertinent Medical Tests and Procedures: GI and surgery following no current plan for surgery intervention. Paracentsis done 02/15 GI: stooling - RT placed IV Fluids: None Pertinent Medications: MAR reviewed - includes bowel, MVI and thiamine Anthropometrics Ht Readings from Last 1 Encounters: 02/02/24 1.727 m (5' 8) Admission weight: 98.8 kg (217 lb 13 oz) Current weight: Weight: 98.4 kg (217 lb) (02/02/24 2339) BMI: Body mass index is 32.99 kg/m??. 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 ) * Barbara Blevins PA-C - 02/22/2024 8:27 AM CDT Images from the original note were not included. GASTROENTEROLOGY PROGRESS NOTE - NEHA Cathy Raymond : 1965 Sex: female IMPRESSION AND RECOMMENDATIONS: Cathy Raymond is a 58yo female with history of decompensated alcohol related cirrhosis, polyneuropathy, T2DM, MAX, gastric bypass 2002 with history of marginal ulcer, osteoporosis admitted 02/02/24after fall. FTH left femur fracture and distended sigmoid colon on CT prompting GI consult. Sigmoiddistension noted on previous imaging dating back to 2016. Colonoscopy and flex sig have been performed during this admission with symptomatic relief but unfortunately has returning symptoms soon after procedure. Abd XR 02/19 with worsening sigmoid distension, prompting CT scan. CT did not show significant worsening of distension. Have recommended conservative management with aggressive bowel regimen, minimizing narcotics. Rectal tube re-inserted evening of 02/20/24 and patient has had significantstool output. Sigmoid distension Patient with ongoing abdominal distension and discomfort. Is having output from rectal tube. Patient received miralax and senna BID 02/20 but did not have any rectally administered therapy. Refused naloxone. Recommendations: -Ongoing aggressive bowel regimen with both oral and rectally administered therapy -Given that rectal tube is having output, recommend ongoing placement of rectal tube -Continue minimizing opioids -Agree with surgery recommendation regarding consideration of red rubber Ruiz catheter It was a pleasure to participate in the care of this patient. Patient seen, examined and plan formulated with GI staff, Dr. Hendrickson. SUBJECTIVE: NAEO. Patient reporting discomfort, same level as yesterday. Reports frustration with lack of improvement in overall clinical picture. PHYSICAL EXAMINATION: VS: Vitals: 02/22/24 0755 BP: 97/62 Pulse: 64 Resp: 18 Temp: 36.2 ??C (97.1 ??F) SpO2: 99% GEN: alert, cooperative, and in no distress ABD: noted to have moderate, generalized tenderness and marked distention; tympanic with percussion REVIEW OF LABORATORY, PATHOLOGY AND RADIOLOGY DATA: Reviewed and significant for Lab Results Component Value Date/Time WBC 3.82 (L) 02/22/2024 0618 RBC 2.68 (L) 02/22/2024 06 HGB 8.1 (L) 02/22/2024 0618 HCT 25.4 (L) 02/22/2024 0618 PLT 115 (L) 02/22/2024 0618 MCV 94.8 02/22/2024 0618 MCH 30.2 02/22/2024 06 MCHC 31.9 02/22/2024 0618 RDW 15.3 (H) 02/22/2024 06 MPV 10.0 02/22/2024 0618 NRBCA 0.3 (H) 02/07/2024 0605 NEUTNO 4.49 02/03/2024 0803 LYMPHAB 0.69 (L) 02/03/2024 0803 MONOABSNO 0.53 02/03/2024 0803 EOSNUMB 0.00 02/03/2024 0803 BASO 0.01 02/03/2024 0803 Lab Results Component Value Date/Time NA 132 (L) 02/22/2024 0618 K 3.5 02/22/2024 0618 CHLORIDE 98 02/22/2024 0618 CO2 26 02/22/2024 0618 GLU 81 02/22/2024 0618 UN 13 02/22/2024 0618 CR 0.52 02/22/2024 0618 CA 7.6 (L) 02/22/2024 0618 Barbara Blevins PA-C, 02/22/2024 8:27 AM * Juan Hendrickson MD - 02/21/2024 11:54 AM CDT GASTROENTEROLOGY PROGRESS NOTE - Staff Cathy Raymond : 1965 Sex: female PATIENT SUMMARY: Cathy Raymond is a 58 y.o. female with history of decompensated alcohol- related cirrhosis with polyneuropathy, type 2 diabetes, sleep apnea, and remote history of gastric bypass who is currently admitted after a fall with left femur fracture. 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 This sigmoid colon distention has been ongoing since 2017. Patient had an abdominal x-ray yesterdaydue to abdominal pain which was concerning for significant colonic dilation followed by an abdominal CT scan. The CT scan did not show any volvulus or any significant change from the previous scan on02/10. The patient had significant stool output earlier today from the rectal tube/around the tube which was inserted last night based on my recommendations. For now, we do not have any plans for endoscopicdecompression unless there is any significant clinical change that would warrant that. Continue to document the stool output and continue with the aggressive oral/topical bowel regimen and continue with during the patient at least every 2 hours and continue to minimize narcotic use. IMPRESSION AND RECOMMENDATIONS: 1. Continue with suppositories and aggressive bowel regimen 2. Continue with turning the patient at least every 2 hours, keep the rectal tube in place for now,minimize narcotic use is much as possible 3. Continue with IV hydration while the patient is n.p.o. 4. If no symptomatic improvement, could consider methylnaltrexone given the lack of any clear obstruction. SUBJECTIVE: Patient reported having a significant amount of stool output from around the rectal tube, no nauseaor vomiting. No fevers or chills, amenable to suppositories and oral bowel regimen. The patient thinks that the previous colonoscopy and flexible sigmoidoscopy that she had over the last week helped w ith her symptoms for a very short amount of time with return back to her chronic baseline abdominaldistention shortly after each procedure. Information obtained from the patient, the nurse, and the primary hospitalist team. PHYSICAL EXAMINATION: VS: BP (!) 82/49 (Cuff Location: Left Arm) Pulse 72 Temp 36.9 ??C (98.5 ??F) (Oral) Resp 17 Ht 1.727 m (5' 8) Wt 98.4 kg (217 lb) SpO2 98% BMI 32.99 kg/m?? GEN: Alert and oriented x 3, no acute distress, comfortable and cooperative with exam CV: Regular, rate and rhythm, PULM: Good air movement, no tachypnea, CTA B/L ABD: Protuberant abdomen with positive bowel sounds, not very firm, ascites presents difficult to assess. No significant tenderness to palpation. SKIN: No rashes or lesions noted. NEURO: No asterixis REVIEW OF LABORATORY, PATHOLOGY AND RADIOLOGY DATA: Lab Results Component Value Date/Time WBC 4.54 02/21/2024 0838 RBC 3.02 (L) 02/21/2024 0838 HGB 9.0 (L) 02/21/2024 0838 HCT 28.7 (L) 02/21/2024 0838 PLT 120 (L) 02/21/2024 0838 Lab Results Component Value Date/Time NA 131 (L) 02/21/2024 0838 K 4.0 02/21/2024 0838 CHLORIDE 98 02/21/2024 0838 CO2 27 02/21/2024 0838 GLU 88 02/21/2024 0838 UN 13 02/21/2024 0838 CR 0.52 02/21/2024 0838 CA 8.0 (L) 02/21/2024 0838 Lab Results Component Value Date/Time ALBUMIN 3.1 (L) 02/20/2024 0744 ALP 114 (H) 02/20/2024 0744 ALT 5 02/20/2024 0744 AST 38 02/20/2024 0744 BILIDIR 0.3 02/20/2024 0744 TBILI 0.9 02/20/2024 0744 TPRO 5.9 (L) 02/20/2024 0744 Lab Results Component Value Date/Time PT 15.9 (H) 02/20/20242036 APTT 33.0 02/02/2024 1600 INR 1.4 (H) 02/20/20242036 Lab Results Component Value Date/Time LIPASE 13 02/02/2024 1601 Juan Hendrickson MD, 02/21/2024 11:54 AM * Francy Mc MD - 02/21/2024 10:31 AM CDT MEDICINE PROGRESS NOTE - Staff Cathy Raymond : 1965 Sex: female Patient Summary: Cathy Raymond is a 58 yo female with decompensated cirrhosis with significant ascites, who presents with a displaced periprosthetic femur fracture from a fall at home. Patient also noted to have severe chronic bowel distension on imaging s/p colonoscopy 02/10 and sigmoidoscopy 02/14. Assessment & Plan: Acute on Chronic distention of the sigmoid colon, S/p decompression colonoscopy (02/10) and flexible sigmoidoscopy (02/14) Possible sigmoid volvulus (ruled out) Complicated multifactorial polyneuropathy.On admission, discussion with Radiology and the findings in the sigmoid are chronic seen in imaging dating back to 2016. Abdominal xray done on 02/10 with increasing sigmoid colon distension. CT abdomen/pelvis with increase in rectosigmoid colonic distention. Colonic decompression performed on 02/10. Abdominal xray on 02/11 with significantly improved air distension of the sigmoid colon. Abdominal xray on 02/13 with worsening sigmoid distension compared to xray on 02/11. Rectal tube placed on 02/13 and removed 02/14. Abdominal xray done after flexible sigmoidos copy with no bowel obstruction. Surgery assessed 02/10 and no surgical intervention at this timeToday02/19 she is reporting more abdominal discomfort. She had refused her suppository the last two mornings and last large bm 02/17. She also had a paracentesis yesterday and discomfort started today. Unclear if abdominal discomfort due to constipation only or increased distention of sigmoid colon which required decompression previous. Additionally she had a paracentesis removing 7.3 L yesterday. - Cont rectal tube, bowel regimen and CLD. Patient is on CLD per GI so will hold off on IV fluids due to her liver disease and need for 13L of ascites removed since 02/15. 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 Paracentesis in ED (4L), 02/07 (4L)and 02/15(6L) 02/18 (7.3L.) - Holding diuretics due to hyponatremia - Para removed 7.3 L 02/18 Hyponatremia 131 today - monitor Intermittent hypotension Due to liver disease. Received 25 gram of albumin 02/18 and 100 grams 02/17. She has been more consistently in 80's systolic since para. She is asymptomatic. Hgb stable from yesterday.No fevers. Lactate normal - monitor Acute displaced angulated periprosthetic fracture of the distal femur s/p IMN R Femur Osteoporosis managed with oral alendronate Prior left femur fracture s/p IMN 2019 - Orthopedics consulted, appreciate assistance - Pain control with scheduled Acetaminophen and PRN Oxycodone decreased to BID pRN - Continue Lovenox x4 weeks through 03/04 - PT/OT, awaiting ANA placement Diabetic neuropathic ulceration, full thickness, with fat layer exposed MSSA positive right foot wound culture - Podiatry consulted, appreciate assistance - Follow up with Podiatry outpatient - Completed two week course of cefazolin MSSA bacteremia Bacillus species not anthracis in one set of blood culture-contaminant Ecoli UTI with microscopic hematuria Blood cultures from outside Hospital with one set finalized and growing MSSA. Also notified by Hospital, patient had a right foot wound culture growing MSSA as well. 02/03 blood culture with no growth to date. -ID consulted, appreciate assistance - Completed course of cefazolin to cover MSSA and urine E. Coli.Total course 02/01-02/14, 2 weeks Urinary retention Patient noted to be retaining urine, requiring straight catheterization. Cano replaced on 02/07. - Follow up with Urology vs TOV here Sacral ulcer, POA, Stage 2 - Wound care per [facility] nurse Hypokalemia (Resolved) Anemia, stable. - Continue to monitor # Hypothyroidism on Levothyroxine # Chronic neuropathic pain on Gabapentin # Diabetes mellitus type 2 # Obstructive sleep apnea # Obesity with BMI 32 # Vitamin B12 deficiency # CIDP # Neurogenic bowel/bladder # Seasonal allergies # Major depression # Constipation # Insomnia # GERD Diet: Diet Supplement: Hi protein juice Diet: Clear Liquid DVT PPx: Lovenox Code Status: Full Code Therapies: PT following and OT following Dispo: Not medically ready Subjective/Events of Past 24 Hours: Hospital Day: 19 Abd still uncomfortable. She had some stool out. Objective: Vital Signs: BP (!) 82/49 (Cuff Location: Left Arm) Pulse 72 Temp 36.9 ??C (98.5 ??F) (Oral) Resp 17 Ht 1.727 m (5' 8) Wt 98.4 kg (217 lb) SpO2 98% BMI 32.99 kg/m?? Temp (24hrs), Av.1 ??C (98.7 ??F), Min:36.9 ??C (98.5 ??F), Max:37.2 ??C (99 ??F) Intake/Output Summary (Last 24 hours) at 02/21/2024 1031 Last data filed at 02/21/2024 0638 Gross per 24 hour Intake 240 ml Output 651 ml Net -411 ml Physical Exam: GEN: Awake and alert, not in acute distress HEENT: Normocephalic, atraumatic, no scleral icterus CV: Regular rate and rhythm, no murmurs, rubs or gallops PULM: Anterior lung lenz: Clear to ausculation bilaterally, no wheezes, rales or rhonchi ABD: Very distended abdomen, tender to palpation at previous para site, no rigidity or guarding, bshigh pitched EXT: LLE edema trace NEURO: Awake and alert, answers all questions, moves all limbs Lab and diagnotic results: Pertinent labs and imaging personally reviewed in [facility] and applied to medical decision making. Francy Mc MD, 02/21/2024 10:31 AM Hospitalist - Department of Medicine Page via [employer] * Naina Merritt MBBS - 02/21/2024 9:29 AM CDT SURGERY PROGRESS NOTE - PGY 1 SUMMARY: Cathy Raymond is a 58 y.o. female with decompensated cirrhosis with ascites, neuropathy with neurogenic bowel and bladder, alcohol use d/o, hypothyroidism, T2DM, MAX, gastric bypass 2002 with history of marginal ulcer, osteoporosis who was admitted on 02/02/2024 after fall from standing height w/left femur fx s/p IMN w/ ortho 02/04. On admission there was concern for sigmoid volvulus for which GI and surgery were consulted however it was felt that her imaging was similar to prior representing a chronic sigmoid dilation. Patient is a poor surgical candidate given her medical comorbidities anddue to the chronic nature of her condition, no surgical intervention was indicated. 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 She underwent colonoscopy on 02/10 and flex sigmoidoscopy 02/14 with improvement in distention/dilation. Surgery was consulted again for increased distention and bilateral flank pain on 02/19 after abdominal XR showed changes in colonic dilation when compared with previous XR. CT obtained which showed dilation of sigmoid colon up to 13.3cm, similar in appearance to CT from 02/10. No evidence of obstruction, volvulus, or perforation. This is most consistent with continued colonicpseudoobstruction. ASSESSMENT/PLAN: - Serial abdominal examinations overnight showed no evidence of peritonitis - No indication for emergent surgical intervention at this time. - Will defer medical management of colonic pseudo-obstruction to medicine team and GI - Surgery will continue to follow peripherally; please page the [facility] surgery team pager with any questions or concerns. PHYSICAL EXAM: Vitals: 02/21/24 0742 BP: (!) 82/49 Pulse: 72 Resp: 17 Temp: 36.9 ??C (98.5 ??F) SpO2: 98% Physical Exam Constitutional: General: She is in acute distress. Abdominal: General: There is distension. Palpations: Abdomen is soft. Comments: Mild generalized tenderness to palpation. Tympanic to percussion in epigastric region, dull to percussion to lateral sides on both sides. . Rectal tube in place. Neurological: Mental Status: She is alert. LABS: Lab Results Component Value Date/Time WBC 4.54 02/21/2024 0838 RBC 3.02 (L) 02/21/2024 0838 HGB 9.0 (L) 02/21/2024 0838 HCT 28.7 (L) 02/21/2024 0838 PLT 120 (L) 02/21/2024 0838 MCV 95.0 02/21/2024 0838 MCH 29.8 02/21/2024 0838 MCHC 31.4 02/21/2024 0838 RDW 15.2 (H) 02/21/2024 0838 MPV 10.3 02/21/2024 0838 NRBCA 0.3 (H) 02/07/2024 0605 NEUTNO 4.49 02/03/2024 0803 LYMPHAB 0.69 (L) 02/03/2024 0803 MONOABSNO 0.53 02/03/2024 0803 EOSNUMB 0.00 02/03/2024 0803 BASO 0.01 02/03/2024 0803 Lab Results Component Value Date/Time NA 131 (L) 02/21/2024 0838 K 4.0 02/21/2024 0838 CHLORIDE 98 02/21/2024 0838 CO2 27 02/21/2024 0838 GLU 88 02/21/2024 0838 UN 13 02/21/2024 0838 CR 0.52 02/21/2024 0838 CA 8.0 (L) 02/21/2024 0838 Lab Results Component Value Date/Time PO4 3.5 02/21/2024 0838 Lab Results Component Value Date/Time MG 2.2 02/21/2024 0838 RADIOLOGY: Reviewed. Naina Merritt MBBS, 02/21/2024 9:45 AM [facility], PGY-1 Surgery Discharge Milestones (Inpatient Primary Team only): Associated attestation - Josiah Silveira MD - 02/21/2024 10:02 PM CDT FACULTY NOTE I saw and evaluated the patient today, 02/21/2024. I discussed with the resident and agree with the resident???s findings and plan documented in the resident???s note from above. Any revisions by me are documented. Josiah Silveira MD, 02/21/2024 10:02 PM * Juan Hendrickson MD - 02/20/2024 7:50 PM CDT GI Update note: This patient is known to the GI service from earlier this admission. She has undergone a colonoscopy for potential decompression on 02/11/2024. The sigmoid colon was notably dilated at that time which seem to be a chronic issue. This was decompressed with aggressive suctioning and improvement in patient's abdominal distention after the procedure. On 02/15/2024 the patient had ongoing abdominal distention and worsening abdominal x-ray findings for which she had a repeat flexible sigmoidoscopy for decompression. Today, the patient had abdominal discomfort and she has refused a bowel regimen/suppositories over the last 2 days. Last bowel movement was noted on 02/17. Due to the abdominal distention, the patient had an abdominal x-ray earlier today which was concerning for worsening/markedly increased sigmoid distention for which a CT scan was recommended. I was contacted with the abdominal x-ray findings and I recommended consultation with general surgery and proceeding with the abdominal CT scan to rule out volvulus or ischemic changes. If the CT scan did not show any volvulus, my recommendation is to provide supportive care with a suppository/enema and placing a rectal tube while optimizing electrolytes and minimizing narcotic use. At the conclusion of the CT scan, I have reviewed the imaging myself and I did not see any significant difference compared to the CT scan that she had earlier this admission on 02/11/2024 and I have called radiology and confirmed those findings. The primary team updated me with this general surgery resident's recommendation of proceeding with an emergency colonoscopy. Prior to proceeding with any procedure, I have contacted the general surgery attending to discuss the case in detail and decide whether another decompressive colonoscopy would be in the patient's best interest versus supportive care with enema/suppositories and rectal tube especially given the recurrent nature of this problem and the lack of any definitive endpoint in repeating those colonoscopies ; also discussed whether the patient is a surgical candidate in case the colonoscopy was not successful/or if it was complicated.The primary surgery team/attending will assess the patient and will give me an update whether the procedure is needed versus supportive care at this point. I have discussed those recommendations withthe primary team, the radiology team, and the general surgery team. Juan Hendrickson MD, 02/20/2024 8:01 PM * Sujey Soto - 02/20/2024 6:59 PM CDT Patient is at CT. Lab will come back later. * Francy Mc MD - 02/20/2024 4:07 PM CDT MEDICINE PROGRESS NOTE - Staff Cathy Raymond : 1965 Sex: female Patient Summary: Cathy Raymond is a 58 yo female with decompensated cirrhosis with significant ascites, who presents with a displaced periprosthetic femur fracture from a fall at home. Patient also noted to have severe chronic bowel distension on imaging s/p colonoscopy 02/10 and sigmoidoscopy 02/14. Assessment & Plan: Acute on Chronic distention of the sigmoid colon, S/p decompression colonoscopy (02/10) and flexible sigmoidoscopy (02/14) Possible sigmoid volvulus (ruled out) Complicated multifactorial polyneuropathy.On admission, discussion with Radiology and the findings in the sigmoid are chronic seen in imaging dating back to 2017. Abdominal xray done on 02/10 with increasing sigmoid colon distension. CT abdomen/pelvis with increase in rectosigmoid colonic distention. Colonic decompression performed on 02/10. Abdominal xray on 02/11 with significantly improved air distension of the sigmoid colon. Abdominal xray on 02/13 with worsening sigmoid distension compared to xray on 02/11. Rectal tube placed on 02/13 and removed 02/14. Abdominal xray done after flexible sigmoidos copy with no bowel obstruction. Surgery assessed 02/10 and no surgical intervention at this timeToday02/19 she is reporting more abdominal discomfort. She had refused her suppository the last two mornings and last large bm 02/17. She also had a paracentesis yesterday and discomfort started today. Unclear if abdominal discomfort due to constipation only or increased distention of sigmoid colon which required decompression previous. Additionally she had a paracentesis removing 7.3 L yesterday. - Administered suppository. No bm yet. 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 Paracentesis in ED (4L), 02/07 (4L)and 02/15(6L) 02/18 (7.3L.) - Holding diuretics due to hyponatremia - Para removed 7.3 L 02/18 Hyponatremia Improved to 129 with albumin 02/17 - monitor Intermittent hypotension Due to liver disease. Received 25 gram of albumin last night and 100 grams 02/17. She has been more consistently in 80's systolic since para. She is asymptomatic. Hgb stable from yesterday.No fevers - check lactate and hgb Acute displaced angulated periprosthetic fracture of the distal femur s/p IMN R Femur Osteoporosis managed with oral alendronate Prior left femur fracture s/p IMN 2019 - Orthopedics consulted, appreciate assistance - Pain control with scheduled Acetaminophen and PRN Oxycodone - Continue Lovenox x4 weeks - PT/OT, awaiting ANA placement Diabetic neuropathic ulceration, full thickness, with fat layer exposed MSSA positive right foot wound culture - Podiatry consulted, appreciate assistance - Follow up with Podiatry outpatient - Completed two week course of cefazolin MSSA bacteremia Bacillus species not anthracis in one set of blood culture-contaminant Ecoli UTI with microscopic hematuria Blood cultures from outside Hospital with one set finalized and growing MSSA. Also notified by Hospital, patient had a right foot wound culture growing MSSA as well. 02/03 blood culture with no growth to date. -ID consulted, appreciate assistance - Completed course of cefazolin to cover MSSA and urine E. Coli.Total course 02/01-02/14, 2 weeks Urinary retention Patient noted to be retaining urine, requiring straight catheterization. Cano replaced on 02/07. - Follow up with Urology vs TOV here Sacral ulcer, POA, Stage 2 - Wound care per [facility] nurse Hypokalemia (Resolved) Anemia, stable. - Continue to monitor # Hypothyroidism on Levothyroxine # Chronic neuropathic pain on Gabapentin # Diabetes mellitus type 2 # Obstructive sleep apnea # Obesity with BMI 32 # Vitamin B12 deficiency # CIDP # Neurogenic bowel/bladder # Seasonal allergies # Major depression # Constipation # Insomnia # GERD Diet: Diet: Regular; No Added Salt (3-4 Gm Sodium) Diet Supplement: Hi protein juice DVT PPx: Lovenox Code Status: Full Code Therapies: PT following and OT following Dispo: Not medically ready Subjective/Events of Past 24 Hours: Hospital Day: 18 More abdominal discomfort today. No significant bm for two days. Large bm 02/16. She is passing gas.No n/v Objective: Vital Signs: BP (!) 84/47 (Cuff Location: Left Arm) Pulse 70 Temp 37 ??C (98.6 ??F) (Oral) Resp 17 Ht 1.727 m (5' 8) Wt 98.4 kg (217 lb) SpO2 96% BMI 32.99 kg/m?? Temp (24hrs), Av.4 ??C (97.6 ??F), Min:36.1 ??C (97 ??F), Max:37 ??C (98.6 ??F) Intake/Output Summary (Last 24 hours) at 02/20/2024 1607 Last data filed at 02/20/2024 0534 Gross per 24 hour Intake -- Output 551 ml Net -551 ml Physical Exam: GEN: Awake and alert, not in acute distress HEENT: Normocephalic, atraumatic, no scleral icterus CV: Regular rate and rhythm, no murmurs, rubs or gallops PULM: Anterior lung lenz: Clear to ausculation bilaterally, no wheezes, rales or rhonchi ABD: Very distended abdomen, non-tender to palpation, no rigidity or guarding, bs normal EXT: LLE edema trace NEURO: Awake and alert, answers all questions, moves all limbs Lab and diagnotic results: Pertinent labs and imaging personally reviewed in [facility] and applied to medical decision making. Francy Mc MD, 02/20/2024 4:07 PM Hospitalist - Department of Medicine Page via [employer] * Francy Mc MD - 02/19/2024 6:28 PM CDT MEDICINE PROGRESS NOTE - Staff Cathy Raymond : 1965 Sex: female Patient Summary: Cathy Raymond is a 58 yo female with decompensated cirrhosis with significant ascites, who presents with a displaced periprosthetic femur fracture from a fall at home. Patient also noted to have severe chronic bowel distension on imaging. 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 Paracentesis in ED (4L), 02/07 (4L)and 02/15(6L) 02/18 (7.3L.) - Holding diuretics due to hyponatremia - Para today Hyponatremia Improved to 129 with albumin - monitor Acute on Chronic distention of the sigmoid colon Possible sigmoid volvulus (ruled out) Complicated multifactorial polyneuropathy. Lactate was normal on admission and there is no evidenceof perforation or peritonitis. On admission, discussion with Radiology and the findings in the sigmoid are chronic seen in imaging dating back to 2016. Abdominal xray done on 02/10 with increasing sigmoid colon distension. CT abdomen/pelvis with increase in rectosigmoid colonic distention. Colonic decompression performed on 02/10. Abdominal xray on 02/11 with significantly improved air distension of the sigmoid colon. Abdominal xray on 02/13 with worsening sigmoid distension compared to xray on 02/11.Rectal tube placed on 02/13 and removed 02/14. Abdominal xray done after flexible sigmoidoscopy with no bowel obstruction. - GI consulted, appreciate assistance - S/p decompression colonoscopy (02/10) and flexible sigmoidoscopy (02/14) - Aggressive bowel regimen, encourage mobility. - Surgery assessed 02/10 and no surgical intervention at this time - F/up with GI Acute displaced angulated periprosthetic fracture of the distal femur s/p IMN R Femur Osteoporosis managed with oral alendronate Prior left femur fracture s/p IMN 2019 - Orthopedics consulted, appreciate assistance - Pain control with scheduled Acetaminophen and PRN Oxycodone - Continue Lovenox x4 weeks - PT/OT, awaiting ANA placement Diabetic neuropathic ulceration, full thickness, with fat layer exposed MSSA positive right foot wound culture - Podiatry consulted, appreciate assistance - Follow up with Podiatry outpatient - Completed two week course of cefazolin MSSA bacteremia Bacillus species not anthracis in one set of blood culture-contaminant Ecoli UTI with microscopic hematuria Blood cultures from outside Hospital with one set finalized and growing MSSA. Also notified by Hospital, patient had a right foot wound culture growing MSSA as well. 02/03 blood culture with no growth to date. -ID consulted, appreciate assistance - Completed course of cefazolin to cover MSSA and urine E. Coli.Total course 02/01-02/14, 2 weeks Urinary retention Patient noted to be retaining urine, requiring straight catheterization. Cano replaced on 02/07. - Follow up with Urology vs TOV here Sacral ulcer, POA, Stage 2 - Wound care per [facility] nurse Hypokalemia (Resolved) Anemia, stable. - Continue to monitor # Hypothyroidism on Levothyroxine # Chronic neuropathic pain on Gabapentin # Diabetes mellitus type 2 # Obstructive sleep apnea # Obesity with BMI 32 # Vitamin B12 deficiency # CIDP # Neurogenic bowel/bladder # Seasonal allergies # Major depression # Constipation # Insomnia # GERD Diet: Diet: Regular; No Added Salt (3-4 Gm Sodium) Diet Supplement: Hi protein juice DVT PPx: Lovenox Code Status: Full Code Therapies: PT following and OT following Dispo: Not medically ready Subjective/Events of Past 24 Hours: Hospital Day: 17 Happy she will be getting a tap Objective: Vital Signs: BP (!) 80/47 (Cuff Location: Left Arm) Pulse 71 Temp 36.4 ??C (97.5 ??F) (Oral) Resp 18 Ht 1.727 m (5' 8) Wt 98.4 kg (217 lb) SpO2 100% BMI 32.99 kg/m?? Temp (24hrs), Av.5 ??C (97.7 ??F), Min:36.4 ??C (97.5 ??F), Max:36.7 ??C (98 ??F) Intake/Output Summary (Last 24 hours) at 02/19/2024 1828 Last data filed at 02/19/2024 1300 Gross per 24 hour Intake 400 ml Output 901 ml Net -501 ml Physical Exam: GEN: Awake and alert, not in acute distress HEENT: Normocephalic, atraumatic, no scleral icterus CV: Regular rate and rhythm, no murmurs, rubs or gallops PULM: Anterior lung lenz: Clear to ausculation bilaterally, no wheezes, rales or rhonchi ABD: Very distended abdomen, non-tender to palpation, no rigidity or guarding, bs normal EXT: LLE edema trace NEURO: Awake and alert, answers all questions, moves all limbs Lab and diagnotic results: Pertinent labs and imaging personally reviewed in [facility] and applied to medical decision making. Francy Mc MD, 02/19/2024 6:28 PM Hospitalist - Department of Medicine Page via [employer] * Courtney Potts LGSW - 02/19/2024 2:36 PM CDT SW spoke with patient yesterday about placement at [facility]. Patient was agreeable to placement there. The earliest she could possibly transfer is on ThursdayFebruary 19. SW will continue to follow up as needed. * Carmen Ortiz RN - 02/19/2024 2:04 PM CDT PARACENTESIS PROCEDURE NOTE D: Cathy Raymond underwent a paracentesis via [employer] Guided imagery by [facility] 02/19/2024. Time out done: Yes Patient identity confirmed with 2 identifiers: Yes Site marked: Yes A: Abdomen site prepped by technologist in sterile fashion. Preliminary images obtained. Amount of fluid removed: 7.3 L Color/consistency of fluid: clear straw colored Site and site appearance: CDI Dressing applied. Medication total dose given- Versed 0 mg Fentanyl 0 Mcg Other: lidocaine, albumin Monitoring Times: Start:1400 Stop:1450 R: Patient tolerated procedure well. P: Samples sent to lab for pathology and cytology examination: No Patient to inpatient bed for post-procedure monitoring. Patient education sheets given regarding post-care. * Mindy Swan APRN, HAND BRAILLE TRANSCRIBER - 02/18/2024 12:49 PM CDT Palliative Care Note Cathy Raymond : 1965 [...] which GI and general surgery are consulting. Tiny eventually underwent an IMN. Palliative consulted for goals of care in setting of high risk surgery (due to medical co morbidities). Palliative Care Recommendations Goals of Care -Tiny would like her , Jai, to serve as her surrogate in the event that she can not make her own decisions -initially Tiny had stated that she wanted to be DNR after surgery. She is now unsure. She would like to remain full code while she continues to think about it. Followed up code status discussion so that POLST could be filled out if she was interested in any limitations. She does not want any limitations at this time. -palliative will sign off at this time. Please reach out to the palliative consult pager should further needs arise. Treatment Goals: Rehabilitative Illness understanding: In-line with medical team Supportive Care: Requires hospitalization Thank you for involving palliative medicine in the care of this patient. Please do not hesitate to call with questions or concerns. Mindy Swan, INTERLOCKING PAVEMENT INSTALLER, HAND BRAILLE TRANSCRIBER, 02/18/2024 12:49 PM Palliative Medicine Available [facility] Advance Care Planning Primary Care: No primary [...] She is alert and oriented. She is disappointed at theway things are going. She feels that PT and OT are going well but her distended abdomen is bothersome. She is looking forward to eventually leaving the hospital but worries about what the future holds. Reviewed our previous discussion during which she stated that she would like to be DNR after surgery. She states that now she is having second thoughts. Discussed that there is no soto in making thisdecision and she should talk it over with her family if she would like. Will not fill out a polst today as she does not request any limitations. Palliative/Supportive Evaluation Palliative medicine strives to learn about the person behind the illness. There are numerous facetsof life that contribute to a person's perspective on their serious illness including: their currentliving situation and support system, degree of independence, their hobbies, activities and interests, spirituality or anabaptism, personal experience with end of life, and personal hopes, worries. Thisbackground is essential in understanding what is most important and how that can change throughout the course of a serious illness. This summary is an attempt to highlight that background. Social History Social History Narrative Tiny is to her , Jai. She has one daughter and two grandchildren. She is [employer]. When feeling well she likes to have [...] kg (217 lb) Vital Signs: Blood pressure 103/66, pulse 71, temperature 36.3 ??C (97.4 ??F), temperature source Oral, resp. rate 15, height 1.727 m (5' 8), weight 98.4 kg (217 lb), SpO2 99%. Physical Exam General: sitting up in bed, [...] following labs and imaging (reports and images) PANEL BASIC METABOLIC (BMP) (02/18/2024 08:33) Time/Medical Decision Making Medium Complexity (MDM): [x] Patient has 1+ chronic illnesses with exacerbation or side effect of treatment OR 1+ undiagnosed new problem with uncertain prognosis, OR 1+ acute illness w/systemic symptoms, OR 1+ acute complicated injury --AND-- Complexity of Data (Need 1) [] I discussed plan of care and/or test interpretations with the medical, case management, therapy and/or nursing team [x] I interpreted tests someone else ordered (reviewing labs/imaging) [] I reviewed external notes, internal or external tests, AND took further history from family or facility --OR-- Morbidity (Need 1): [] Patient has Social Determinants of Health that significantly impact their treatment plan [] Medication management recommendations Mindy Swan APRN, CNP, 02/18/2024 12:49 PM * Francy Mc MD - 02/18/2024 11:34 AM CDT MEDICINE PROGRESS NOTE - Staff Cathy Raymond : 1965 Sex: female Patient Summary: Cathy Raymond is a 58 yo female with decompensated cirrhosis with significant ascites, who presents with a displaced periprosthetic femur fracture from a fall at home. Patient also noted to have severe chronic bowel distension on imaging. 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 Paracentesis in ED (4L), 02/07 (4L)and 02/15(6L). - Holding diuretics due to hyponatremia Hyponatremia Na decreasing since starting diuretics 02/06 and now to 125 today after increase in lasix yesterday - albumin 100 grams - If not better with recheck, consider hypertonic saline 2% - Holding diuretics as this precipitated the hyponatremia Acute on Chronic distention of the sigmoid colon Possible sigmoid volvulus (ruled out) Complicated multifactorial polyneuropathy. Lactate was normal on admission and there is no evidenceof perforation or peritonitis. On admission, discussion with Radiology and the findings in the sigmoid are chronic seen in imaging dating back to 2017. Abdominal xray done on 02/10 with increasing sigmoid colon distension. CT abdomen/pelvis with increase in rectosigmoid colonic distention. Colonic decompression performed on 02/10. Abdominal xray on 02/11 with significantly improved air distension of the sigmoid colon. Abdominal xray on 02/13 with worsening sigmoid distension compared to xray on 02/11.Rectal tube placed on 02/13 and removed 02/14. Abdominal xray done after flexible sigmoidoscopy with no bowel obstruction. - GI consulted, appreciate assistance - S/p decompression colonoscopy (02/10) and flexible sigmoidoscopy (02/14) - Aggressive bowel regimen, encourage mobility. - Surgery assessed 02/10 and no surgical intervention at this time Acute displaced angulated periprosthetic fracture of the distal femur s/p IMN R Femur Osteoporosis managed with oral alendronate Prior left femur fracture s/p IMN 2019 - Orthopedics consulted, appreciate assistance - Pain control with scheduled Acetaminophen and PRN Oxycodone - Continue Lovenox x4 weeks - PT/OT, awaiting ANA placement Diabetic neuropathic ulceration, full thickness, with fat layer exposed MSSA positive right foot wound culture - Podiatry consulted, appreciate assistance - Follow up with Podiatry outpatient - Completed two week course of cefazolin MSSA bacteremia Bacillus species not anthracis in one set of blood culture-contaminant Ecoli UTI with microscopic hematuria Blood cultures from outside Hospital with one set finalized and growing MSSA. Also notified by Hospital, patient had a right foot wound culture growing MSSA as well. 02/03 blood culture with no growth to date. -ID consulted, appreciate assistance - Completed course of cefazolin to cover MSSA and urine E. Coli.Total course 02/01-02/14, 2 weeks Urinary retention Patient noted to be retaining urine, requiring straight catheterization. Cano replaced on 02/07. - Follow up with Urology vs TOV here Sacral ulcer, POA, Stage 2 - Wound care per [facility] nurse Hypokalemia (Resolved) Anemia, stable. - Continue to monitor # Hypothyroidism on Levothyroxine # Chronic neuropathic pain on Gabapentin # Diabetes mellitus type 2 # Obstructive sleep apnea # Obesity with BMI 32 # Vitamin B12 deficiency # CIDP # Neurogenic bowel/bladder # Seasonal allergies # Major depression # Constipation # Insomnia # GERD Diet: Diet: Regular; No Added Salt (3-4 Gm Sodium) DVT PPx: Lovenox Code Status: Full Code Therapies: PT following and OT following Dispo: Not medically ready Subjective/Events of Past 24 Hours: Hospital Day: 16 Doing ok today. Abdomen still very distended Objective: Vital Signs: BP 103/66 (Cuff Location: Left Arm) Pulse 71 Temp 36.3 ??C (97.4 ??F) (Oral) Resp 15 Ht 1.727 m (5' 8) Wt 98.4 kg (217 lb) SpO2 99% BMI 32.99 kg/m?? Temp (24hrs), Av.4 ??C (97.6 ??F), Min:35.9 ??C (96.7 ??F), Max:37.1 ??C (98.7 ??F) Intake/Output Summary (Last 24 hours) at 02/18/2024 1134 Last data filed at 02/18/2024 0239 Gross per 24 hour Intake 960 ml Output 603 ml Net 357 ml Physical Exam: GEN: Awake and alert, not in acute distress HEENT: Normocephalic, atraumatic, no scleral icterus CV: Regular rate and rhythm, no murmurs, rubs or gallops PULM: Anterior lung lenz: Clear to ausculation bilaterally, no wheezes, rales or rhonchi ABD: Very distended abdomen, non-tender to palpation, no rigidity or guarding, bs normal EXT: LLE edema trace NEURO: Awake and alert, answers all questions, moves all limbs Lab and diagnotic results: Pertinent labs and imaging personally reviewed in [facility] and applied to medical decision making. Francy Mc MD, 02/18/2024 11:34 AM Hospitalist - Department of Medicine Page via [facility] * Rose Marie Leigh MD - 02/18/2024 4:43 AM CDT Orthopaedic Surgery Progress Note 02/18/2024 S: Continued issues with colonic distension. NAEO. AFVSS. Nursing notes reviewed. Patient sleeping comfortably. PT recommending dc to ANA, max assist for most transfers. O: BP 100/62 Pulse 69 Temp 35.9 ??C (96.7 ??F) (Oral) Resp 17 Ht 1.727 m (5' 8) Wt 98.4 kg (217 lb) SpO2 93% BMI 32.99 kg/m?? Exam: Gen: No acute distress, sleeping. Resp: Non-labored breathing Msk: RLE -Dressings c/d/I - Fires EHL/FHL/wiggles lesser toes - Denies sensation T/Sa/Mcgovern/DP/SP -Foot warm Lab Results Component Value Date/Time WBC 4.68 02/17/2024 0719 WBC 5.95 02/16/2024 0812 HGB 8.0 (L) 02/17/2024 0719 HGB 9.3 (L) 02/16/2024 0812 PLT 133 (L) 02/17/2024 0719 PLT 167 02/16/2024 0812 CR 0.59 02/17/2024 0719 CR 0.62 02/16/2024 0812 Lab Results (Last 120 hours) Procedure Component Value Ref Range Date/Time URINE CULTURE [[id number]] Collected: 02/02/241702 Specimen: Urine Updated: 02/02/242204 BODY FLUID CULTURE:INCLUDES GRAM STAIN [[id number]] Collected: 02/02/241950 Specimen: Peritoneal Fluid from Peritoneum [...] Antibiotics: Continue ancef per ID Diet: ADAT Cano: Remove POD1 DVT prophylaxis: Lovenox 40mg daily x 4 weeks Wound/Incision Care/Vac: Wound vac over pin sites to remain pending output--removed 02/10/24, site covered with gauze and tegaderm. OK to reinforce dressings as needed Pain [...] Up: Follow-up with Dr. Henning team in 4 weeks with 2V DAMION Espinoza MD Orthopaedic Surgery, PGY-3 Orthopedic Staff Note: Patient was discussed with team and above documentation reviewed. Agree with note and care plan as described above. DVT prophylaxis confirmed on DEC. Rose Marie Leigh MD, 02/18/2024 11:26 AM Orthopedic Dept. Staff Physician * Mando Briceno, PT - 02/17/2024 4:40 PM CDT Physical Therapy Progress Note PT Discharge Recommendations Discharge Recommendations: Post-acute placement [...] be determined at next level of care PT Equipment Recommended: Front wheeled walker;Manual wheelchair S: Patient supine in bed when PT arrives, agreeable to PT session Pain Pain Rating With Activity (Numeric): (Did not rate, reporting ongoing abdominal pain but reports itcontinues to improve gradually) Participation Significantly Limited?: No Intervention: Positioning;Notified RN;Performed Exercises O: Mental Status Mental Status: Alert;Cooperative Follows Directions: Consistently follows commands Restrictions/Precautions Weight Bearing Restrictions: NWB R LE, wt bearing for transfers Complies w/ Weight Bearing?: Yes Precautions: Other (Falls) Complies w/ Precautions?: Yes Vital Signs 02/17/2024 0926 02/17/2024 0928 02/17/2024 1543 BP: 92/50 92/50 106/62 Patient Position for BP: -- -- Lying Down Pulse: 67 79 79 SpO2: -- 96 % 95 % Room Air Transfer & Bed Mobility Roll Left: Moderate assist Supine to/from Sit: Maximum assist (Minimal assist of 1 to sit EOB with HOB elevated and heavy use of bedrails, still max to total A of 2 for sit to supine secondary to difficulty scooting on specialty mattress as well as core instability/abdominal discomfort with posterior lean) Scooting: Total (dependent) Sitting Static Balance Level of Assistance: Upper Extremity Support Other: Sat EOB ~25 minutes, contining to work on scooting anterior/posterior with goal of improvingindependence with bed mobility/sit to supine Performed the following functional LE strengthening and ROM exercises with cueing/assist from therapist as noted below, therapist providing verbal and tactile cueing throughout for facilitation of appropriate muscle activation, sequencing, and maintaining regular breathing pattern/avoiding strain: Exercises Sitting LAQ Reps: 10 reps (L LE only with manual overpressure for increased strengthening component) Seated Hip Flexion : 10 reps (through minimal ROM secondary to abdominal swelling) Sitting Other: 10 reps (Hamstring curls L LE only with manual overpressure for increased strengthening component, additionally completed resisted hip + knee extension x 10); additionally performed gentle AAROM of R knee flexion/extension within relatively comfortable ROM Interdisciplinary Communication RN: Updated re: session performance Fall Risk Assessment: Patient is deemed high fall risk per protocol Positioning: Heel Offloading with Pillows Patient supine in bed, offloaded/microturn toward left side, all needs within reach at end of session Treatment rendered: Bed mobility training;Positioning;Strengthening;ROM;Balance/coordination training;Transfer training Total treatment time: 40 minutes THERAPEUTIC EXERCISE: Functional LE strengthening/ROM exercises with cueing/assist from therapist as noted above THERAPEUTIC/FUNCTIONAL ACTIVITY: Bed mobility, seated balance, and scooting with cueing/assist fromtherapist as noted above A: Patient continues to make steady progress toward acute PT goals per overall reduced assist required with supine to sit transfers this date, good tolerance for sitting EOB per minimal reports of pain and no reports of dizziness/lightheadedness or other adverse symptoms. Patient continues to requir e max to total assist of 2 for return to supine. Continuing to recommend post- acute placement at discharge. Patient will continue to benefit from acute PT intervention to address her deficits. P: Patient will be seen 2-4x/week until goals are met or patient is discharged. Next visit the planis to work on bed mobility, sitting balance, attempt standing with Stacy Mo and assist of 2 as able, LE exercises. Problem: Decreased Transfer Skills Goal: Patient will transfer supine to/from sit Description: Patient will transfer supine to/from sit with (6) Modified Garrett in order to safely mobilize OOB by 02/19/24. Outcome: In progress Goal: Patient will transfer bed to/from wheelchair Description: Patient will transfer bed to/from wheelchair with (5) Supervision, Set-Up or Standby Prompting with sliding board or pivot method in order to progress to PLOF by 02/19/24. Outcome: In progress Problem: Decreased Wheelchair Mobility Goal: Improve manual wheelchair propulsion Description: Improve manual wheelchair propulsion >20m with (6) Modified Garrett in order to progress toward PLOF by 02/19/24. Outcome: In progress SPECIALIST FIELD ENGINEER Appropriate: No (has not stood) Mando Briceno, LUIS ANTONIO 02/17/2024 Pager: [facility] PT Dept * Francy Mc MD - 02/17/2024 2:56 PM CDT MEDICINE PROGRESS NOTE - Staff Cathy Raymond : 1965 Sex: female Patient Summary: Cathy Raymond is a 58 yo female with decompensated cirrhosis with significant ascites, who presents with a displaced periprosthetic femur fracture from a fall at home. Patient also noted to have severe chronic bowel distension on imaging. Assessment & Plan: Acute on Chronic distention of the sigmoid colon Possible sigmoid volvulus (ruled out) Complicated multifactorial polyneuropathy. Lactate was normal on admission and there is no evidenceof perforation or peritonitis. On admission, discussion with Radiology and the findings in the sigmoid are chronic seen in imaging dating back to 2016. Abdominal xray done on 02/10 with increasing sigmoid colon distension. CT abdomen/pelvis with increase in rectosigmoid colonic distention. Colonic decompression performed on 02/10. Abdominal xray on 02/11 with significantly improved air distension of the sigmoid colon. Abdominal xray on 02/13 with worsening sigmoid distension compared to xray on 02/11.Rectal tube placed on 02/13 and removed 02/14. Abdominal xray done after flexible sigmoidoscopy with no bowel obstruction. - GI consulted, appreciate assistance - S/p decompression colonoscopy (02/10) and flexible sigmoidoscopy (02/14) - Aggressive bowel regimen, encourage mobility. - Increased diuretics to Spironolactone 100 mg and Furosemide 40 mg daily. Creat stable today. Lastpara 02/15 with removal of 6 L - Surgery assessed 02/10 and no surgical intervention at this time Acute displaced angulated periprosthetic fracture of the distal femur s/p IMN R Femur Osteoporosis managed with oral alendronate Prior left femur fracture s/p IMN 2019 - Orthopedics consulted, appreciate assistance - Pain control with scheduled Acetaminophen and PRN Oxycodone - Continue Lovenox x4 weeks - PT/OT, awaiting ANA placement Diabetic neuropathic ulceration, full thickness, with fat layer exposed MSSA positive right foot wound culture - Podiatry consulted, appreciate assistance - Follow up with Podiatry outpatient - Completed two week course of cefazolin MSSA bacteremia Bacillus species not anthracis in one set of blood culture-contaminant Ecoli UTI with microscopic hematuria Blood cultures from outside Hospital with one set finalized and growing MSSA. Also notified by Hospital, patient had a right foot wound culture growing MSSA as well. 02/03 blood culture with no growth to date. -ID consulted, appreciate assistance - While inpatient start Cefazolin 2gm Q8 Hrs, this will cover MSSA and urine E. 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 Paracentesis in ED and on 02/07. MELD 3.0: 20 at 02/17/2024 7:19 AM MELD-Na: 10 at 02/17/2024 7:19 AM Calculated from: Serum Creatinine: 0.59 mg/dL (Using min of 1 mg/dL) at 02/17/2024 7:19 AM Serum Sodium: 128 mEq/L at 02/17/2024 7:19 AM Total Bilirubin: 0.8 mg/dL (Using min of 1 mg/dL) at 02/16/2024 8:12 AM Serum Albumin: 2.2 g/dL at 02/16/2024 8:12 AM INR(ratio): 1.4 at 02/16/2024 8:12 AM Age at listing (hypothetical): 58 years Sex: Female at 02/17/2024 7:19 AM - Continue SPECIALIST FIELD ENGINEER dose of Furosemide and Spironolactone (increased today) Urinary retention Patient noted to be retaining urine, requiring straight catheterization. Cano replaced on 02/07. - Follow up with Urology vs TOV here Sacral ulcer, POA, Stage 2 - Wound care per [facility] nurse Hypokalemia (Resolved) Anemia, stable. - Continue to monitor # Hypothyroidism on Levothyroxine # Chronic neuropathic pain on Gabapentin # Diabetes mellitus type 2 # Obstructive sleep apnea # Obesity with BMI 32 # Vitamin B12 deficiency # CIDP # Neurogenic bowel/bladder # Seasonal allergies # Major depression # Constipation # Insomnia # GERD Diet: Diet: Regular; No Added Salt (3-4 Gm Sodium) DVT PPx: Lovenox Code Status: Full Code Therapies: PT following and OT following Dispo: Possibly medically ready tomorrow Subjective/Events of Past 24 Hours: Hospital Day: 15 Upset about her low salt diet. Cannot find any food she can eat Objective: Vital Signs: BP 92/50 Pulse 79 Temp 36.1 ??C (97 ??F) (Oral) Resp 16 Ht 1.727 m (5' 8) Wt 98.4 kg (217 lb) SpO2 96% BMI 32.99 kg/m?? Temp (24hrs), Av.7 ??C (98 ??F), Min:36.1 ??C (97 ??F), Max:37.1 ??C (98.8 ??F) Intake/Output Summary (Last 24 hours) at 02/17/2024 1456 Last data filed at 02/17/2024 1444 Gross per 24 hour Intake 915 ml Output 1202 ml Net -287 ml Physical Exam: GEN: Awake and alert, not in acute distress HEENT: Normocephalic, atraumatic, no scleral icterus CV: Regular rate and rhythm, no murmurs, rubs or gallops PULM: Anterior lung lenz: Clear to ausculation bilaterally, no wheezes, rales or rhonchi ABD: Very distended abdomen, non-tender to palpation, no rigidity or guarding, bs normal EXT: LLE edema trace NEURO: Awake and alert, answers all questions, moves all limbs Lab and diagnotic results: Pertinent labs and imaging personally reviewed in [facility] and applied to medical decision making. Francy Mc MD, 02/17/2024 2:56 PM Hospitalist - Department of Medicine Page via [facility] * Mando Briceno, PT - 02/16/2024 2:18 PM CDT Chart reviewed for PT follow up session this date, session attempted - unable to see as patient outof room for procedure. PT will continue to follow to continue with care plan as soon as possible. Mando Briceno, PT, 02/16/2024 2:18 PM * Jayleen Vasquez RN - 02/16/2024 2:17 PM CDT PARACENTESIS PROCEDURE NOTE D: Cathy Raymond underwent a paracentesis of RUQ via [employer] Guided imagery by Milan Duke on 02/16/2024 Time out done. Yes Patient identity confirmed with 2 identifiers Yes Site marked Yes A: Abdomen site prepped by technologist in sterile fashion. Preliminary images obtained. Amount of fluid removed : xxx Color/consistency of fluid: xxx Site and site appearance: xx Dressing applied. Medication total dose given- Versed 0 mg Fentanyl 0 Mcg Other subcutaneous lidocaine 1 % administered by provider at insertion site Monitoring Times: Start:1415 Stop:xxx R: Patient tolerated well and verbalized understanding P: Samples sent to lab for pathology and cytology examination : [place] [facility] [place]. Patient education sheets given regarding post-care. * Eugenia Mead OTR/L - 02/16/2024 2:00 PM CDT Occupational Therapy Note: Pt just leaving for paracentesis. OT will follow up at a later date. Eugenia Mead OTR/L, 02/16/2024 2:01 PM * Francy Mc MD - 02/16/2024 9:50 AM CDT MEDICINE PROGRESS NOTE - Staff Cathy Raymond : 1965 Sex: female Patient Summary: Cathy Raymond is a 58 yo female with Decompensated Cirrhosis with significant ascites, who presents with a displaced periprosthetic femur fracture from a fall at home. Patient also noted to have severe chronic bowel distension on imaging. Assessment & Plan: Acute on Chronic distention of the sigmoid colon Possible sigmoid volvulus (ruled out) Complicated multifactorial polyneuropathy. Lactate was normal on admission and there is no evidenceof perforation or peritonitis. On admission, discussion with Radiology and the findings in the sigmoid are chronic seen in imaging dating back to 2017. Abdominal xray done on 02/10 with increasing sigmoid colon distension. CT abdomen/pelvis with increase in rectosigmoid colonic distention. Colonic decompression performed on 02/10. Abdominal xray on 02/11 with significantly improved air distension of the sigmoid colon. Abdominal xray on 02/13 with worsening sigmoid distension compared to xray on 02/11.Rectal tube placed on 02/13 and removed 02/14. Abdominal xray done after flexible sigmoidoscopy with no bowel obstruction. - GI consulted, appreciate assistance - S/p decompression colonoscopy (02/10) and flexible sigmoidoscopy (02/14) - Aggressive bowel regimen, encourage mobility. - Consider increasing diuretics to Spironolactone 100 mg and Furosemide 40 mg daily as tolerated (currently on reduced dose compared to home diuretics and having recurrent ascites). Alternatively, continue paracentesis PRN given recurrent ascites. - Recommend surgical evaluation as this is likely to continue to happen. - Plan for paracentesis today - Surgery re-consulted 02/14. Plan to re-evaluate today Acute displaced angulated periprosthetic fracture of the distal femur s/p IMN R Femur Osteoporosis managed with oral alendronate Prior left femur fracture s/p IMN 2019 - Orthopedics consulted, appreciate assistance - Pain control with scheduled Acetaminophen and PRN Oxycodone - Continue Lovenox x4 weeks Diabetic neuropathic ulceration, full thickness, with fat layer exposed MSSA positive right foot wound culture - Podiatry consulted, appreciate assistance - Continue Cefazolin - Follow up with Podiatry outpatient MSSA bacteremia Bacillus species not anthracis in one set of blood culture-contaminant Ecoli UTI with microscopic hematuria Blood cultures from outside Hospital with one set finalized and growing MSSA. Also notified by Hospital, patient had a right foot wound culture growing MSSA as well. 02/02 blood culture collected here growing bacillus species not anthracis, no gpcs or MSSA. 02/03 blood culture with no growth to date. -ID consulted, appreciate assistance - While inpatient start Cefazolin 2gm Q8 Hrs, this will cover MSSA and urine E. Coli. 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 Paracentesis in ED and on 02/07. MELD 3.0: 19 at 02/16/2024 8:12 AM MELD-Na: 10 at 02/16/2024 8:12 AM Calculated from: Serum Creatinine: 0.62 mg/dL (Using min of 1 mg/dL) at 02/16/2024 8:12 AM Serum Sodium: 129 mEq/L at 02/16/2024 8:12 AM Total Bilirubin: 0.8 mg/dL (Using min of 1 mg/dL) at 02/16/2024 8:12 AM Serum Albumin: 2.2 g/dL at 02/16/2024 8:12 AM INR(ratio): 1.4 at 02/16/2024 8:12 AM Age at listing (hypothetical): 58 years Sex: Female at 02/16/2024 8:12 AM - Continue decreased doses of SPECIALIST FIELD ENGINEER Furosemide and Spironolactone Urinary retention Patient noted to be retaining urine, requiring straight catheterization. Cano replaced on 02/07. - Follow up with Urology Lower extremity edema with weeping LE wounds Probable cellulitis of the left foot - Elevate LLE - Continue Cefazolin as above #Hypokalemia (Resolved). K 4.1 today. # Anemia, stable. Hemoglobin 8.9 today. - Continue to monitor # Hypothyroidism on Levothyroxine # Chronic neuropathic pain on Gabapentin # Diabetes mellitus type 2 # Obstructive sleep apnea # Obesity with BMI 32 # Vitamin B12 deficiency # CIDP # Neurogenic bowel/bladder # Seasonal allergies # Major depression # Constipation # Insomnia # GERD Diet: Diet: Regular DVT PPx: Lovenox Code Status: Full Code Therapies: PT following and OT following Dispo: Not medically ready Subjective/Events of Past 24 Hours: Hospital Day: 14 No complaints today. Agreeable to paracentesis Objective: Vital Signs: BP 98/56 (Cuff Location: Left Arm) Pulse (!) 31 Temp 36.8 ??C (98.3 ??F) (Oral) Resp 18 Ht 1.727 m (5' 8) Wt 98.4 kg (217 lb) SpO2 (!) 75% BMI 32.99 kg/m?? Temp (24hrs), Av.4 ??C (97.6 ??F), Min:36 ??C (96.8 ??F), Max:36.8 ??C (98.3 ??F) Intake/Output Summary (Last 24 hours) at 02/16/2024 0950 Last data filed at 02/16/2024 0600 Gross per 24 hour Intake 1271 ml Output 750 ml Net 521 ml Physical Exam: GEN: Awake and alert, not in acute distress HEENT: Normocephalic, atraumatic, no scleral icterus CV: Regular rate and rhythm, no murmurs, rubs or gallops PULM: Anterior lung lenz: Clear to ausculation bilaterally, no wheezes, rales or rhonchi ABD: Very distended abdomen, non-tender to palpation, no rigidity or guarding, decreased bs EXT: LLE edema trace NEURO: Awake and alert, answers all questions, moves all limbs Lab and diagnotic results: Pertinent labs and imaging personally reviewed in [facility] and applied to medical decision making. Francy Mc MD, 02/16/2024 9:50 AM Hospitalist - Department of Medicine Page via [facility] * Ernestine Toribio MD - 02/15/2024 5:16 PM CDT MEDICINE PROGRESS NOTE - Staff Cathy Raymond : 1965 Sex: female Patient Summary: Cathy Raymond is a 58 yo female with Decompensated Cirrhosis with significant ascites, who presents with a displaced periprosthetic femur fracture from a fall at home. Patient also noted to have severe chronic bowel distension on imaging. Assessment & Plan: Acute on Chronic distention of the sigmoid colon Possible sigmoid volvulus (ruled out) Complicated multifactorial polyneuropathy. Lactate was normal on admission and there is no evidenceof perforation or peritonitis. On admission, discussion with Radiology and the findings in the sigmoid are chronic seen in imaging dating back to 2016. Abdominal xray done on 02/10 with increasing sigmoid colon distension. CT abdomen/pelvis with increase in rectosigmoid colonic distention. Colonic decompression performed on 02/10. Abdominal xray on 02/11 with significantly improved air distension of the sigmoid colon. Abdominal xray on 02/13 with worsening sigmoid distension compared to xray on 02/11.Rectal tube placed on 02/13 and removed 02/14. Abdominal xray done after flexible sigmoidoscopy with no bowel obstruction. - GI consulted, appreciate assistance - S/p decompression colonoscopy (02/10) and flexible sigmoidoscopy (02/14) - Aggressive bowel regimen, encourage mobility. - Consider increasing diuretics to Spironolactone 100 mg and Furosemide 40 mg daily as tolerated (currently on reduced dose compared to home diuretics and having recurrent ascites). Alternatively, continue paracentesis PRN given recurrent ascites. - Recommend surgical evaluation as this is likely to continue to happen. - Plan for paracentesis tomorrow - Surgery re-consulted today. Plan to re-evaluate tomorrow. Acute displaced angulated periprosthetic fracture of the distal femur s/p IMN R Femur Osteoporosis managed with oral alendronate Prior left femur fracture s/p IMN 2019 - Orthopedics consulted, appreciate assistance - Pain control with scheduled Acetaminophen and PRN Oxycodone - Continue Lovenox x4 weeks Diabetic neuropathic ulceration, full thickness, with fat layer exposed MSSA positive right foot wound culture - Podiatry consulted, appreciate assistance - Continue Cefazolin - Follow up with Podiatry outpatient MSSA bacteremia Bacillus species not anthracis in one set of blood culture-contaminant Ecoli UTI with microscopic hematuria Blood cultures from outside Hospital with one set finalized and growing MSSA. Also notified by Hospital, patient had a right foot wound culture growing MSSA as well. 02/02 blood culture collected here growing bacillus species not anthracis, no gpcs or MSSA. 02/03 blood culture with no growth to date. -ID consulted, appreciate assistance - While inpatient start Cefazolin 2gm Q8 Hrs, this will cover MSSA and urine E. Coli. 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 Paracentesis in ED and on 02/07. MELD 3.0: 20 at 02/15/2024 6:48 AM MELD-Na: 10 at 02/15/2024 6:48 AM Calculated from: Serum Creatinine: 0.60 mg/dL (Using min of 1 mg/dL) at 02/15/2024 6:48 AM Serum Sodium: 129 mEq/L at 02/15/2024 6:48 AM Total Bilirubin: 0.7 mg/dL (Using min of 1 mg/dL) at 02/15/2024 6:48 AM Serum Albumin: 1.9 g/dL at 02/15/2024 6:48 AM INR(ratio): 1.4 at 02/15/2024 6:48 AM Age at listing (hypothetical): 58 years Sex: Female at 02/15/2024 6:48 AM - Continue decreased doses of SPECIALIST FIELD ENGINEER Furosemide and Spironolactone Urinary retention Patient noted to be retaining urine, requiring straight catheterization. Cano replaced on 02/07. - Follow up with Urology Lower extremity edema with weeping LE wounds Probable cellulitis of the left foot - Elevate LLE - Continue Cefazolin as above #Hypokalemia (Resolved). K 4.1 today. # Anemia, stable. Hemoglobin 8.9 today. - Continue to monitor # Hypothyroidism on Levothyroxine # Chronic neuropathic pain on Gabapentin # Diabetes mellitus type 2 # Obstructive sleep apnea # Obesity with BMI 32 # Vitamin B12 deficiency # CIDP # Neurogenic bowel/bladder # Seasonal allergies # Major depression # Constipation # Insomnia # GERD Diet: Diet: Regular DVT PPx: Lovenox Code Status: Full Code Therapies: PT following and OT following Dispo: Not medically ready Subjective/Events of Past 24 Hours: Hospital Day: 13 Ms. Raymond reports doing ok this morning. She reports abdominal pain and fullness. She denies nausea or vomiting. She is having bowel movements. She is aware of plan for flexible sigmoidoscopy today. Objective: Vital Signs: BP 95/57 (Cuff Location: Left Arm) Pulse 73 Temp 36.3 ??C (97.3 ??F) (Oral) Resp 21 Ht 1.727 m (5' 8) Wt 98.4 kg (217 lb) SpO2 100% BMI 32.99 kg/m?? Temp (24hrs), Av.2 ??C (97.1 ??F), Min:35.8 ??C (96.4 ??F), Max:36.5 ??C (97.7 ??F) Intake/Output Summary (Last 24 hours) at 02/15/2024 1716 Last data filed at 02/15/2024 1529 Gross per 24 hour Intake 670 ml Output 400 ml Net 270 ml Physical Exam: GEN: Awake and alert, not in acute distress HEENT: Normocephalic, atraumatic, no scleral icterus CV: Regular rate and rhythm, no murmurs, rubs or gallops PULM: Anterior lung lenz: Clear to ausculation bilaterally, no wheezes, rales or rhonchi ABD: Normal bowel sounds, firm, distended, non-tender to palpation, no rigidity or guarding EXT: No pedal edema NEURO: Awake and alert, answers all questions, moves all limbs Lab and diagnotic results: Pertinent labs and imaging personally reviewed in [facility] and applied to medical decision making. Ernestine Toribio MD, 02/15/2024 5:16 PM Hospitalist - Department of Medicine Page via [facility] MDM: The patient's problem complexity is: [x] High or [] Moderate because 2 of the following apply: Problems [x] Patient has either an acute illness posing a threat to bodily function [x] and/or one acute/chronic illness with severe exacerbation, progression, or side effects from treatment Data [x] I ordered new tests [x] I reviewed tests [] I took further history from the patient's family or outside providers [x] I reviewed consultants notes ----- [x] I reviewed a test/image and provided my own personal interpretation ----- [] I interpreted tests someone else ordered (reviewing labs/imaging) [x] I talked to a websphere commerce consultant and/or members of the case management and nursing team During this visit, I also did the following adding to morbidity of this patient [] I escalated the level of care [] I held a goals of care discussion [] I prescribed opiates/benzos [x] I continued/started a medication requiring intensive monitoring for toxicity * Mando Briceno, PT - 02/15/2024 4:03 PM CDT Physical Therapy Progress Note PT Discharge Recommendations Discharge Recommendations: Post-acute placement [...] be determined at next level of care PT Equipment Recommended: Front wheeled walker;Manual wheelchair S: Patient supine in bed when PT arrives, agreeable to PT/OT co-treat session Pain Pain Rating With Activity (Numeric): (Did not rate, reporting ongoing abdominal pain but reports itis a little better today and notes abdomen feels a little softer following procedure earlier this date) Participation Significantly Limited?: No Intervention: Positioning O: Mental Status Mental Status: Alert;Cooperative Follows Directions: Consistently follows commands Restrictions/Precautions Weight Bearing Restrictions: NWB R LE, wt bearing for transfers Complies w/ Weight Bearing?: Yes Precautions: Other (Falls) Complies w/ Precautions?: Yes Vital Signs 02/15/2024 1050 02/15/2024 1100 02/15/2024 1500 BP: 91/63 93/64 95/57 Patient Position for BP: -- -- Lying Down Pulse: 68 68 73 SpO2: 92 % 98 % 100 % Room Air Transfer & Bed Mobility Roll Left: Moderate assist Supine to/from Sit: Maximum assist (Largely mod to max A of 1 for supine to sit, still max to totalA of 2 for sit to supine) Sitting Static Balance Level of Assistance: Upper Extremity Support Other: Sat EOB ~15 minutes, worked on scooting laterally and anterior/posterior in preparation for potential slideboard lateral transfer however patient requiring max assist with draw sheet throughout for scoot; briefly worked on LE ROM as noted below Exercises Sitting Sitting Other: (L LE LAQs plus hamstring curls. passive R LE motion into knee flexion via gravity) Interdisciplinary Communication OT: Co-treat Fall Risk Assessment: Patient is deemed high fall risk per protocol Positioning: Patient supine in bed at end of session offloaded toward L side, all needs within reach Treatment rendered: Bed mobility training;Positioning;Strengthening;ROM;Balance/coordination training;Transfer training Total treatment time: 35 minutes THERAPEUTIC/FUNCTIONAL ACTIVITY: Bed mobility and sitting balance/activity with cueing/assist from therapist as noted above A: Patient making steady progress toward functional PT goals per overall reduced assist required with supine to sit transfer this date. Continues to require assist of 2 to return to supine secondary to difficulty tolerating laying flat due to pain. From a PT standpoint, continuing to recommend post-acute placement at discharge. Patient will continue to benefit from acute PT intervention to address her deficits. P: Patient will be seen 2-4x/week until goals are met or patient is discharged. Next visit the planis to work on bed mobility, sitting balance, attempt standing with Stacy Stedy as tolerated, bed<>chair. Problem: Decreased Transfer Skills Goal: Patient will transfer supine to/from sit Description: Patient will transfer supine to/from sit with (6) Modified Garrett in order to safely mobilize OOB by 02/19/24. Outcome: In progress Goal: Patient will transfer bed to/from wheelchair Description: Patient will transfer bed to/from wheelchair with (5) Supervision, Set-Up or Standby Prompting with sliding board or pivot method in order to progress to PLOF by 02/19/24. Outcome: In progress Problem: Decreased Wheelchair Mobility Goal: Improve manual wheelchair propulsion Description: Improve manual wheelchair propulsion >20m with (6) Modified Garrett in order to progress toward PLOF by 02/19/24. Outcome: In progress SPECIALIST FIELD ENGINEER Appropriate: No (has not stood) Mando Briceno, PT 02/15/2024 Pager: [facility] * Eugenia Mead, OTR/L - 02/15/2024 1:51 PM CDT Occupational Therapy Progress Note 02/15/2024 OT Discharge Recommendations Discharge Recommendations: Post-acute placement recommended Level/type of placement (OT): Sub-Acute Rehab facility Post Discharge Follow-up: OT at post-acute placement Equipment Recommended: Equipment needs to be determined at next level of care OT In-patient follow-up / recommended referrals: Continue skilled OT services to achieve the goals on the plan of care / maximize safety and independence with ADL's / IADL's: - Recommended Frequency: 3x / week - Anticipated Duration of OT services: throughout hospital stay - Interventions: ADL retraining, activity tolerance, and functional mobility Precautions/Restrictions: Activity Level: Up with Assist (02/07/24 1500) General Precautions: High falls risk (02/07/24 1500) Weight-bearing Restrictions: Right LE - NWB (ok to WB for transfers only) (02/09/24 1400) Complies w/ Weight Bearing?: Yes Complies w/ Precautions?: Yes SUBJECTIVE: Pt fatigued from procedure earlier in the day, agreeable to mobilize to EOB Pain Pain Rating With Activity (Numeric): (increases with movement) Location: RLE Participation Significantly Limited?: No Action Taken: Nursing aware and addressing;Repositioned patient with reported relief OBJECTIVE: Activities of Daily Living Grooming: Supervision/Stand by assist Grooming Comments: seated EOB to brush teeth Functional Mobility Supine to/from Sit: (assist of 1 supine->sit, assist of 2 sit->supine) Sit to/from Stand : (declined to attempt d/t fatigue) Cognition Mental Status: Oriented x 3;Alert;Cooperative;Follows 1 step direction Delirium assessment: Confusion Assessment Method (CAM) Delirium prevention / intervention appears indicated? Yes, as a preventative measure: Interventions provided - engaged pt in functional tasks - promoted mobility Interdisciplinary Communication: RN: ok to see ASSESSMENT: Increased ease with getting to EOB sitting, able to use LLE to support while sitting and completing grooming tasks. Continues to require assist of 2 for getting back to bed. Attempted scooting for potential slide board transfers in the future, pt unable without significant assist. Continue to recommend son lift with nursing. This patient will continue to benefit from skilled OT services for ADL retraining, activity tolerance, and functional mobility to maximize independence and safety with ADLs. PLAN: Continue skilled OT services to achieve the goals on the plan of care: Plan For Next OT Session: --stacy coymayte Total treatment time: 35 minutes OT interventions and time spent on each: Self care/Home mgmt/ADL: 35 minutes LILY Ling/Bethanie Pager: [facility] OT [facility] * Ernestine Toribio MD - 02/14/2024 3:56 PM CDT MEDICINE PROGRESS NOTE - Staff Cathy Raymond : 1965 Sex: female Patient Summary: Cathy Raymond is a 58 yo female with decompensated cirrhosis with significant ascites, who presents with a displaced periprosthetic femur fracture from a fall at home. Patient also noted to have severe chronic bowel distension on imaging. Assessment & Plan: Acute on Chronic distention of the sigmoid colon Possible sigmoid volvulus (ruled out) Complicated multifactorial polyneuropathy. Lactate was normal on admission and there is no evidenceof perforation or peritonitis. On admission, discussion with Radiology and the findings in the sigmoid are chronic seen in imaging dating back to 2016. Abdominal xray done on 02/10 with increasing sigmoid colon distension. CT abdomen/pelvis with increase in rectosigmoid colonic distention. Colonic decompression performed on 02/10. Abdominal xray on 02/11 with significantly improved air distension of the sigmoid colon. Abdominal xray today with worsening sigmoid distension compared to xray on 02/11. - GI consulted, appreciate assistance - Rectal tube placed - Abdominal xray 2 hrs after rectal tube placed - Therapeutic paracentesis - Surgery consulted, appreciate assistance. Patient is a poor surgical candidate. No plans for surgery at this time. Acute displaced angulated periprosthetic fracture of the distal femur s/p IMN R Femur Osteoporosis managed with oral alendronate Prior left femur fracture s/p IMN 2020 - Orthopedics consulted, appreciate assistance - Pain control with scheduled Acetaminophen and PRN Oxycodone - Continue Lovenox x4 weeks Diabetic neuropathic ulceration, full thickness, with fat layer exposed MSSA positive right foot wound culture - Podiatry consulted, appreciate assistance - Continue Cefazolin - Follow up with Podiatry outpatient MSSA bacteremia Bacillus species not anthracis in one set of blood culture-contaminant Ecoli UTI with microscopic hematuria Blood cultures from outside Hospital with one set finalized and growing MSSA. Also notified by Hospital, patient had a right foot wound culture growing MSSA as well. 02/02 blood culture collected here growing bacillus species not anthracis, no gpcs or MSSA. 02/03 blood culture with no growth to date. -ID consulted, appreciate assistance - While inpatient start Cefazolin 2gm Q8 Hrs, this will cover MSSA and urine E. Coli. 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 Paracentesis in ED and on 02/07. MELD 3.0: 21 at 02/14/2024 8:18 AM MELD-Na: 10 at 02/14/2024 8:18 AM Calculated from: Serum Creatinine: 0.58 mg/dL (Using min of 1 mg/dL) at 02/14/2024 8:18 AM Serum Sodium: 128 mEq/L at 02/14/2024 8:18 AM Total Bilirubin: 0.8 mg/dL (Using min of 1 mg/dL) at 02/14/2024 8:18 AM Serum Albumin: 2.0 g/dL at 02/14/2024 8:18 AM INR(ratio): 1.4 at 02/14/2024 8:18 AM Age at listing (hypothetical): 58 years Sex: Female at 02/14/2024 8:18 AM - Continue decreased doses of SPECIALIST FIELD ENGINEER Furosemide and Spironolactone Urinary retention Patient noted to be retaining urine, requiring straight catheterization. Cano replaced on 02/07. - Follow up with Urology Lower extremity edema with weeping LE wounds Probable cellulitis of the left foot - Elevate LLE - Continue Cefazolin as above #Hypokalemia (Resolved) # Anemia, stable. Hemoglobin 9.1 today. - Continue to monitor # Hypothyroidism on Levothyroxine # Chronic neuropathic pain on Gabapentin # Diabetes mellitus type 2 # Obstructive sleep apnea # Obesity with BMI 32 # Vitamin B12 deficiency # CIDP # Neurogenic bowel/bladder # Seasonal allergies # Major depression # Constipation # Insomnia # GERD Diet: Diet: Regular DVT PPx: Lovenox Code Status: Full Code Therapies: PT following and OT following Dispo: Not medically ready Subjective/Events of Past 24 Hours: Hospital Day: 12 Ms. Raymond reports doing ok this morning. She reports abdominal pain and distension. She is having bowel movements. She is tolerating a diet with no nausea or vomiting. Objective: Vital Signs: BP 96/64 Pulse 80 Temp 36.7 ??C (98 ??F) Resp 18 Ht 1.727 m (5' 8) Wt 98.4 kg (217 lb) SpO2 99% BMI 32.99 kg/m?? Temp (24hrs), Av.6 ??C (97.8 ??F), Min:36.3 ??C (97.4 ??F), Max:36.7 ??C (98 ??F) Intake/Output Summary (Last 24 hours) at 02/14/2024 1556 Last data filed at 02/14/2024 1425 Gross per 24 hour Intake -- Output 801 ml Net -801 ml Physical Exam: GEN: Awake and alert, not in acute distress HEENT: Normocephalic, atraumatic, no scleral icterus CV: Regular rate and rhythm, no murmurs, rubs or gallops PULM: Anterior lung lenz: Clear to ausculation bilaterally, no wheezes, rales or rhonchi ABD: Normal bowel sounds, soft, distended, non-tender to palpation, no rigidity or guarding EXT: No pedal edema NEURO: Awake and alert, answers all questions, moves all limbs Lab and diagnotic results: Pertinent labs and imaging personally reviewed in [facility] and applied to medical decision making. Ernestine Toribio MD, 02/14/2024 3:56 PM Hospitalist - Department of Medicine Page via [facility] MDM: The patient's problem complexity is: [x] High or [] Moderate because 2 of the following apply: Problems [x] Patient has either an acute illness posing a threat to bodily function [x] and/or one acute/chronic illness with severe exacerbation, progression, or side effects from treatment Data [x] I ordered new tests [x] I reviewed tests [] I took further history from the patient's family or outside providers [x] I reviewed consultants notes ----- [x] I reviewed a test/image and provided my own personal interpretation ----- [] I interpreted tests someone else ordered (reviewing labs/imaging) [x] I talked to a websphere commerce consultant and/or members of the case management and nursing team During this visit, I also did the following adding to morbidity of this patient [] I escalated the level of care [] I held a goals of care discussion [] I prescribed opiates/benzos [x] I continued/started a medication requiring intensive monitoring for toxicity * Ernestine Toribio MD - 02/13/2024 1:29 PM CDT MEDICINE PROGRESS NOTE - Staff Cathy Raymond : 1965 Sex: female Patient Summary: Cathy Raymond is a 58 yo female with decompensated cirrhosis with significant ascites, who presents with a displaced periprosthetic femur fracture from a fall at home. Patient also noted to have severe chronic bowel distension on imaging. Assessment & Plan: Acute on Chronic distention of the sigmoid colon Possible sigmoid volvulus (ruled out) Complicated multifactorial polyneuropathy. Lactate was normal on admission and there is no evidenceof perforation or peritonitis. Discussed imaging finding with Radiology and the findings in the sigmoid are chronic seen in imaging dating back to 2017. Abdominal xray done on 02/10 with increasing sigmoid colon distension. CT abdomen/pelvis with increase in rectosigmoid colonic distention. Colonic decompression performed on 02/10. Abdominal xray on 02/11 with significantly improved air distension of the sigmoid colon. - GI consulted, appreciate assistance - S/p colonic decompression (02/10) - Continue daily suppositories, add MiraLAX 17 grams 1-2 times daily - Avoid enemas for now - Limit narcotics as able - Paracentesis PRN - Close follow-up with outpatient GI provider - Surgery consulted, appreciate assistance. Patient is a poor surgical candidate. No plans for surgery at this time. Acute displaced angulated periprosthetic fracture of the distal femur s/p IMN R Femur Osteoporosis managed with oral alendronate Prior left femur fracture s/p IMN 2019 - Orthopedics consulted, appreciate assistance - Pain control with scheduled Acetaminophen and PRN Oxycodone - Continue Lovenox x4 weeks Diabetic neuropathic ulceration, full thickness, with fat layer exposed MSSA positive right foot wound culture - Podiatry consulted, appreciate assistance - Continue Cefazolin - Follow up with Podiatry outpatient MSSA bacteremia Bacillus species not anthracis in one set of blood culture-contaminant Ecoli UTI with microscopic hematuria Blood cultures from outside Hospital with one set finalized and growing MSSA. Also notified by Hospital, patient had a right foot wound culture growing MSSA as well. 02/02 blood culture collected here growing bacillus species not anthracis, no gpcs or MSSA. 02/03 blood culture with no growth to date. -ID consulted, appreciate assistance - While inpatient start Cefazolin 2gm Q8 Hrs, this will cover MSSA and urine E. Coli. 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 Paracentesis in ED and on 02/07. MELD 3.0: 20 at 02/13/2024 9:06 AM MELD-Na: 18 at 02/13/2024 9:06 AM Calculated from: Serum Creatinine: 0.60 mg/dL (Using min of 1 mg/dL) at 02/13/2024 9:06 AM Serum Sodium: 131 mEq/L at 02/13/2024 9:06 AM Total Bilirubin: 0.9 mg/dL (Using min of 1 mg/dL) at 02/13/2024 9:06 AM Serum Albumin: 2.1 g/dL at 02/13/2024 9:06 AM INR(ratio): 1.7 at 02/12/2024 8:50 AM Age at listing (hypothetical): 58 years Sex: Female at 02/13/2024 9:06 AM - Continue decreased doses of SPECIALIST FIELD ENGINEER Furosemide and Spironolactone Urinary retention Patient noted to be retaining urine, requiring straight catheterization. Cano replaced on 02/07. - Follow up with Urology Lower extremity edema with weeping LE wounds Probable cellulitis of the left foot - Elevate LLE - Continue Cefazolin as above #Hypokalemia (Resolved) # Anemia, stable. Hemoglobin 8.9 today. - Continue to monitor # Hypothyroidism on Levothyroxine # Chronic neuropathic pain on Gabapentin # Diabetes mellitus type 2 # Obstructive sleep apnea # Obesity with BMI 32 # Vitamin B12 deficiency # CIDP # Neurogenic bowel/bladder # Seasonal allergies # Major depression # Constipation # Insomnia # GERD Diet: Diet: Regular DVT PPx: Lovenox Code Status: Full Code Therapies: PT following and OT following Dispo: Not medically ready Subjective/Events of Past 24 Hours: Hospital Day: 11 Ms. Raymond reports doing ok this morning. She reports improved abdominal pain and distension. She is tolerating clear liquid diet with no nausea or vomiting. She is passing gas and having bowel movements. Objective: Vital Signs: BP 94/59 (Cuff Location: Left Arm) Pulse 67 Temp 36.1 ??C (96.9 ??F) (Oral) Resp 15 Ht 1.727 m (5' 8) Wt 98.4 kg (217 lb) SpO2 99% BMI 32.99 kg/m?? Temp (24hrs), Av.2 ??C (97.2 ??F), Min:36 ??C (96.8 ??F), Max:36.7 ??C (98 ??F) Intake/Output Summary (Last 24 hours) at 02/13/2024 1329 Last data filed at 02/13/2024 0610 Gross per 24 hour Intake -- Output 651 ml Net -651 ml Physical Exam: GEN: Awake and alert, not in acute distress HEENT: Normocephalic, atraumatic, no scleral icterus CV: Regular rate and rhythm, no murmurs, rubs or gallops PULM: Anterior lung lenz: Clear to ausculation bilaterally, no wheezes, rales or rhonchi ABD: Normal bowel sounds, soft, distended, non-tender to palpation, no rigidity or guarding EXT: No pedal edema NEURO: Awake and alert, answers all questions, moves all limbs Lab and diagnotic results: Pertinent labs and imaging personally reviewed in [facility] and applied to medical decision making. Ernestine Toribio MD, 02/13/2024 1:29 PM Hospitalist - Department of Medicine Page via [facility] MDM: The patient's problem complexity is: [x] High or [] Moderate because 2 of the following apply: Problems [x] Patient has either an acute illness posing a threat to bodily function [x] and/or one acute/chronic illness with severe exacerbation, progression, or side effects from treatment Data [x] I ordered new tests [x] I reviewed tests [] I took further history from the patient's family or outside providers [x] I reviewed consultants notes ----- [x] I reviewed a test/image and provided my own personal interpretation ----- [] I interpreted tests someone else ordered (reviewing labs/imaging) [x] I talked to a websphere commerce consultant and/or members of the case management and nursing team During this visit, I also did the following adding to morbidity of this patient [] I escalated the level of care [] I held a goals of care discussion [] I prescribed opiates/benzos [x] I continued/started a medication requiring intensive monitoring for toxicity * Petty Whyte - 02/13/2024 7:07 AM CDT Was unable to draw blood because patient was sleeping, and did not wake up upon greeting or by touching arm. Lab will come back shortly when patient is awake. Notified Thu TELLEZ at 07:08. Petty Whyte, 02/13/2024 7:07 AM * Ernestine Toribio MD - 02/12/2024 12:47 PM CDT MEDICINE PROGRESS NOTE - Staff aCthy Raymond : 1965 Sex: female Patient Summary: Cathy Raymond is a 58 yo female with decompensated cirrhosis with significant ascites, who presents with a displaced periprosthetic femur fracture from a fall at home. Patient also noted to have severe chronic bowel distension on imaging. Assessment & Plan: Acute on Chronic distention of the sigmoid colon Possible sigmoid volvulus (ruled out) Complicated multifactorial polyneuropathy. Lactate was normal and there is no evidence of perforation or peritonitis. Discussed imaging finding with Radiology and the findings in the sigmoid are chronic seen in imaging dating back to 2016. Abdominal xray done on 02/10 with increasing sigmoid colon distension. CT abdomen/pelvis with increase in rectosigmoid colonic distention. Colonic decompression performed on 02/10. Abdominal xray today with significantly improved air distension of the sigmoid colon. - GI consulted, appreciate assistance - S/p colonic decompression (02/10) - Continue daily suppositories, add MiraLAX 17 grams 1-2 times daily - Avoid enemas for now - Limit narcotics as able - Paracentesis PRN - Close follow-up with outpatient GI provider - Surgery consulted, appreciate assistance. Patient is a poor surgical candidate. No plans for surgery at this time. Acute displaced angulated periprosthetic fracture of the distal femur s/p IMN R Femur Osteoporosis managed with oral alendronate Prior left femur fracture s/p IMN 2019 - Orthopedics consulted, appreciate assistance - Pain control with scheduled Acetaminophen and PRN Oxycodone - Continue Lovenox x4 weeks Diabetic neuropathic ulceration, full thickness, with fat layer exposed MSSA positive right foot wound culture - Podiatry consulted, appreciate assistance - Continue Cefazolin - Follow up with Podiatry outpatient MSSA bacteremia Bacillus species not anthracis in one set of blood culture-contaminant Ecoli UTI with microscopic hematuria Blood cultures from outside Hospital with one set finalized and growing MSSA. Also notified by Hospital, patient had a right foot wound culture growing MSSA as well. 02/02 blood culture collected here growing bacillus species not anthracis, no gpcs or MSSA. 02/03 blood culture with no growth to date. -ID consulted, appreciate assistance - While inpatient start Cefazolin 2gm Q8 Hrs, this will cover MSSA and urine E. Coli. 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 Paracentesis in ED and on 02/07. MELD 3.0: 20 at 02/12/2024 8:50 AM MELD-Na: 18 at 02/12/2024 8:50 AM Calculated from: Serum Creatinine: 0.56 mg/dL (Using min of 1 mg/dL) at 02/12/2024 8:50 AM Serum Sodium: 130 mEq/L at 02/12/2024 8:50 AM Total Bilirubin: 0.9 mg/dL (Using min of 1 mg/dL) at 02/12/2024 8:50 AM Serum Albumin: 2.3 g/dL at 02/12/2024 8:50 AM INR(ratio): 1.7 at 02/12/2024 8:50 AM Age at listing (hypothetical): 58 years Sex: Female at 02/12/2024 8:50 AM - Continue decreased doses of SPECIALIST FIELD ENGINEER Furosemide and Spironolactone Urinary retention Patient noted to be retaining urine, requiring straight catheterization. Cano replaced on 02/07. - Follow up with Urology Lower extremity edema with weeping LE wounds Probable cellulitis of the left foot - Elevate LLE - Continue Cefazolin as above #Hypokalemia (Resolved) # Anemia, stable. Hemoglobin 9.4 today. - Continue to monitor # Hypothyroidism on Levothyroxine # Chronic neuropathic pain on Gabapentin # Diabetes mellitus type 2 # Obstructive sleep apnea # Obesity with BMI 32 # Vitamin B12 deficiency # CIDP # Neurogenic bowel/bladder # Seasonal allergies # Major depression # Constipation # Insomnia # GERD Diet: Diet: Clear Liquid DVT PPx: Lovenox Code Status: Full Code Therapies: PT following and OT following Dispo: Not medically ready Subjective/Events of Past 24 Hours: Hospital Day: 10 Ms. Raymond reports doing ok this morning. She reports improved abdominal pain and distension. She is passing gas and having bowel movements. Objective: Vital Signs: BP 94/67 (Cuff Location: Left Arm) Pulse (!) 126 Temp 35.1 ??C (95.2 ??F) (Oral) Resp 16 Ht1.727 m (5' 8) Wt 98.4 kg (217 lb) SpO2 100% BMI 32.99 kg/m?? Temp (24hrs), Av.1 ??C (97 ??F), Min:35.1 ??C (95.2 ??F), Max:37 ??C (98.6 ??F) Intake/Output Summary (Last 24 hours) at 02/12/2024 1247 Last data filed at 02/12/2024 0631 Gross per 24 hour Intake 750 ml Output 450 ml Net 300 ml Physical Exam: GEN: Awake and alert, not in acute distress HEENT: Normocephalic, atraumatic, no scleral icterus CV: Regular rate and rhythm, no murmurs, rubs or gallops PULM: Anterior lung lenz: Clear to ausculation bilaterally, no wheezes, rales or rhonchi ABD: Normal bowel sounds, firm, distended, non-tender to palpation, no rigidity or guarding EXT: No pedal edema NEURO: Awake and alert, answers all questions, moves all limbs Lab and diagnotic results: Pertinent labs and imaging personally reviewed in [facility] and applied to medical decision making. Ernestine Toribio MD, 02/12/2024 12:47 PM Hospitalist - Department of Medicine Page via [facility] MDM: The patient's problem complexity is: [x] High or [] Moderate because 2 of the following apply: Problems [x] Patient has either an acute illness posing a threat to bodily function [x] and/or one acute/chronic illness with severe exacerbation, progression, or side effects from treatment Data [x] I ordered new tests [x] I reviewed tests [] I took further history from the patient's family or outside providers [x] I reviewed consultants notes ----- [x] I reviewed a test/image and provided my own personal interpretation ----- [] I interpreted tests someone else ordered (reviewing labs/imaging) [x] I talked to a websphere commerce consultant and/or members of the case management and nursing team During this visit, I also did the following adding to morbidity of this patient [] I escalated the level of care [] I held a goals of care discussion [] I prescribed opiates/benzos [x] I continued/started a medication requiring intensive monitoring for toxicity * Eden Keane - 02/12/2024 11:14 AM CDT Continued Care and Services - Admitted Since 02/02/2024 Destination Service Provider Request Status Selected Services Address Phone Fax Patient Preferred [facility] Pending - Request Sent N/A [address] [facility] [id number] -- Internal Comment last updated by Eden Keane 02/12/2024 1106 LVM for admissions Eden Keane, 02/12/2024 11:06 AM [facility] Pending - Request Sent N/A [address] [facility] [address] [phone] -- Internal Comment last updated by Eden Keane 02/12/2024 1108 LVM for admissions.Eden Keane, 02/12/2024 11:08 AM Lm with admissions to call back [facility] Declined N/A [address] [facility] [id number] -- Internal Comment last updated by Courtney Potts LGSW 02/08/[address] closed a year ago [facility] Declined Bed not available N/A [address] [place] [address] [phone] -- [facility] Declined Bed not available N/A [id number] [facility] [id number] [phone] -- Internal Comment last updated by Eden Keane 02/12/2024 1110 Spoke to Heather and she will call back .Eden Keane, 02/12/2024 11:10 AM Spoke to admissions will review today. [facility] No active coordination exists for this encounter. * Saranya Parker, PT - 02/12/2024 11:12 AM CDT Images from the original note were not included. Physical Therapy Progress Note PT Discharge Recommendations Discharge Recommendations: Post-acute placement [...] be determined at next level of care PT Equipment Recommended: Front wheeled walker;Manual wheelchair PM&R Recommended: S: feeling better today Pain Pain Rating With Activity (Numeric): 4 Participation Significantly Limited?: No Intervention: Positioning O: Mental Status Mental Status: Alert;Cooperative Follows Directions: Consistently follows commands Restrictions/Precautions Weight Bearing Restrictions: NWB R LE, wt bearing for transfers Complies w/ Weight Bearing?: Yes Vital Signs 02/12/2024 0248 02/12/2024 0745 02/12/2024 0751 BP: 91/56 -- 94/67 Patient Position for BP: Lying Down Lying Down Lying Down Pulse: 65 -- 126 SpO2: 99 % -- 100 % Room Air Transfer & Bed Mobility Roll Left: Maximum assist Roll Right: Maximum assist Supine to/from Sit: Maximum assist Sit to/from Stand: Not tested Sitting Static Balance Level of Assistance: Upper Extremity Support Other: sat at edge of bed x 20 minutes Exercises Sitting Seated Hip Flexion : 10 reps Interdisciplinary Communication RN: assisted with cleaning pt up Fall Risk Assessment: None of the above Treatment rendered: Transfer training;Bed mobility training;Positioning Total treatment time: 45 minutes A: Pt able to transfer to edge of bed with assist of 2. Sat edge of bed with close supervision. Unable to stand. Pt will need continued PT at rehab facility to improve transfers bed to chair Problem: Decreased Transfer Skills Goal: Patient will transfer supine to/from sit Description: Patient will transfer supine to/from sit with (6) Modified Garrett in order to safely mobilize OOB by 02/19/24. Outcome: In progress Goal: Patient will transfer bed to/from wheelchair Description: Patient will transfer bed to/from wheelchair with (5) Supervision, Set-Up or Standby Prompting with sliding board or pivot method in order to progress to PLOF by 02/19/24. Outcome: In progress Problem: Decreased Wheelchair Mobility Goal: Improve manual wheelchair propulsion Description: Improve manual wheelchair propulsion >20m with (6) Modified Garrett in order to progress toward PLOF by 02/19/24. Outcome: In progress P: PT 2-4 x week for duration of hospital stay or until goals achieved, for bed mobility, transfersand stand pivot to chair. Next visit sit edge of bed, attempt to stand or mechanical lift to chair SPECIALIST FIELD ENGINEER Appropriate: No (has not stood) Saranya Parker, PT 02/12/2024 Pager: [facility] PT Dept * Eugenia Mead, OTR/L - 02/12/2024 11:00 AM CDT Occupational Therapy Progress Note 02/12/2024 OT Discharge Recommendations Discharge Recommendations: Post-acute placement recommended Level/type of placement (OT): Sub-Acute Rehab facility Post Discharge Follow-up: OT at post-acute placement Equipment Recommended: Equipment needs to be determined at next level of care OT In-patient follow-up / recommended referrals: Continue skilled OT services to achieve the goals on the plan of care / maximize safety and independence with ADL's / IADL's: - Recommended Frequency: 2-4x / week - Anticipated Duration of OT services: throughout hospital stay - Interventions: ADL retraining, activity tolerance, and functional mobility Precautions/Restrictions: Activity Level: Up with Assist (02/07/24 1500) General Precautions: High falls risk (02/07/24 1500) Weight-bearing Restrictions: Right LE - NWB (ok to WB for transfers only) (02/09/24 1400) Complies w/ Weight Bearing?: Yes Complies w/ Precautions?: Yes SUBJECTIVE: I feel a little better today Pain Pain Rating With Activity (Numeric): (increases with movement) Location: RLE Participation Significantly Limited?: No Action Taken: Nursing aware and addressing;Repositioned patient with reported relief OBJECTIVE: Activities of Daily Living Grooming: Supervision/Stand by assist Grooming Comments: seated EOB Toileting: Dependent (less than 25% patient effort) Toileting Comments: incontinent bowel Functional Mobility Roll Left : Moderate assist (50% patient effort) Roll Right : Moderate assist (50% patient effort) Supine to/from Sit: Dependent (less than 25% patient effort) (assist of 2) Cognition Mental Status: Oriented x 3;Alert;Cooperative;Follows 1 step direction Delirium assessment: Confusion Assessment Method (CAM) Acute onset OR fluctuating course: No CAM result: Negative Delirium prevention / intervention appears indicated? Yes, as a preventative measure: Interventions provided - engaged pt in functional tasks - promoted mobility Interdisciplinary Communication: RN: ok to see ASSESSMENT: Pt had emergent colonoscopy overnight, feeling a little better today. Able to get to EOB sitting and tolerate grooming tasks with setup. Pt requires assist with all cares, son lift for transfers. Continue to recommend post acute placement. This patient will continue to benefit from skilled OT services for ADL retraining, activity tolerance, and functional mobility to maximize independence and safety with ADLs. PLAN: Continue skilled OT services to achieve the goals on the plan of care: Plan For Next OT Session: --EOB ADLs Total treatment time: 40 minutes OT interventions and time spent on each: Self care/Home mgmt/ADL: 40 minutes LILY Ling/Bethanie Pager: [facility] OT Department * Barbara Blevins PA-C - 02/12/2024 9:01 AM CDT Images from the original note were not included. GASTROENTEROLOGY PROGRESS NOTE - NEHA Cathy Raymond : 1965 Sex: female IMPRESSION AND RECOMMENDATIONS: Cathy Raymond is a 58yo female with history of decompensated alcohol related cirrhosis, polyneuropathy, T2DM, MAX, gastric bypass 2002 with history of marginal ulcer, osteoporosis admitted 02/02/24after fall. FTH left femur fracture and distended sigmoid colon on CT prompting GI consult. Distension felt to be chronic based on previous imaging dating back to 2017. Recommended daily bowel regimen and signed off. GI re-involved 02/10 for increasing abdominal distension and abnormal CT scan. Sigmoid distension GI call backed back 02/10 for increased distension and XR. 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 Patient's physical exam revealed tense, tympanitic, tender on palpation. Colonoscopy successfully performed for decompression. Recommended abd XR this morning which has not yet been completed. On reassessment today, patient's abdomen remains distended but is soft and non-tender to palpation. RECOMMENDATIONS: - Continue daily suppositories, add MiraLAX 17 grams 1-2 times daily - Avoid enemas for now - Limit narcotics as able - Paracentesis PRN - Close follow-up with outpatient GI provider GI team will sign off. Please don't hesitate to reach out with additional questions or concerns. It was a pleasure to participate in the care of this patient. Patient seen, examined and plan formulated with GI staff, Dr. Lambert. SUBJECTIVE: Evaluated at bedside. Denies abdominal pain. States she feels less distended. Feeling bloated but much better than yesterday. Small BM this AM. PHYSICAL EXAMINATION: VS: Vitals: 02/12/24 0751 BP: 94/67 Pulse: (!) 126 Resp: 16 Temp: 35.1 ??C (95.2 ??F) SpO2: 100% GEN: alert, cooperative, and in no distress ABD: marked distension but soft and non-tender to palpation REVIEW OF LABORATORY, PATHOLOGY AND RADIOLOGY DATA: Reviewed and significant for COLONOSCOPY-DIAGNOSTIC (02/11/2024 21:24) Impression: - Preparation of the colon was inadequate for detectionof polyps. - Dilated in the sigmoid colon with gas. This was decompressed using suction with significant improvement in patient's abdominal distension. The abdomen is no longer tense at the conclusion of the procedure. Recommendation: - [facility] patient to [facility] for [facility] care. - NPO. - AXR in the morning - Consult team will evaluate in the morning. - Remainder ofrecommendations per previous GI consult note. Barbara Blevins PA-C, 02/12/2024 9:01 AM * Odin Harris RN - 02/11/2024 9:36 PM CDT D: Primary team requested placement of nasogastric tube. A: Assessed patient's chart for absolute/relative contraindications to bedside insertion. Per the patient's medical record she has a history of decompensated cirrhosis with significant ascites. Due to this history the patient was at significantly high risk for bleeding. R: Informed primary team that it was unsafe to perform bedside NG insertion. P: Recommended to primary team they consider placement under fluoro. * Lukas Lambert MD - 02/11/2024 9:05 PM CDT GASTROENTEROLOGY PROGRESS NOTE Cathy Raymond : 1965 Sex: female ASSESSMENT Asked to reevaluate this 58 yo female for increasing abdominal distension and abnormal Abdominal CTscan. For details of the patient's past medical history, please see initial consult note dated 02/03/24. Briefly, patient has decompensated cirrhosis secondary to alcohol use complicated by ascites, aswell as polyneuropathy, DM, and prior gastric bypass. She was admitted 02/01 with a femur fracture resulting from a fall at home; this was repaired operatively on 02/04. She has been noted to have chronic sigmoid colon distension in the setting of chronic constipation with marked gaseous distension of the sigmoid dating back to at least 2016. Today, patient was noted to have increased abdominal distension on exam and AXR, so abdominal CT was ordered. I have reviewed the images and Radiology report from current CT as well as from admissionCT on 02/02/24 and images from outside CTs from 2021, 2020, and 2016. All CT scans show massive gaseous distension of the sigmoid colon without evidence of mechanical obstruction or volvulus. Today's exam is perhaps slightly worse than on admission, though it is not clear that this is the case. On physical exam this evening,the patient is afebrile with stable vital signs and is non-toxic appearing. However, her abdomen is tense, tympanitic, and tender on palpation. There is no rebound tenderness, so I am not concerned about perforation at present, though am concerned about this risk basedon the remainder of her physical exam. The patient appears to have an acute or subacute worsening of her chronic bowel distension, likely as a result of her recent Orthopedic trauma and surgery with subsequent decreased mobility and narcotic pain medication usage. Although intervention is unlikely to impact her chronic colonic distension, I do feel that intervention with colonoscopic decompression is warranted for the acute change in her exam in order to mitigate the risk of colonic perforation. I have discussed the patient's care with the Surgical Chief Resident at the bedside and will plan for colonoscopic decompression emergently this evening. Following decompression, would recommend continuing to follow recommendations documented in the initial GI consult note from 02/02. Any changes to these recommendations as a result of the findings at colonoscopy will be contained in the procedure report. Plan: To OR tonight for colonoscopic decompression with MAC. Total time spent on this encounter, on the date of service including pre-visit review of separatelyobtained history, [id number] interaction performing medically appropriate physical exam, patient counseling/education, interpretation of diagnostic results, care coordination and documentation was 50 minutes. REVIEW OF LABORATORY, PATHOLOGY AND RADIOLOGY DATA: LABS BMP Recent Labs 02/10/24 0706 02/11/24 0725 NA 132* 132* K 4.0 4.2 CHLORIDE 99 98 CO2 26 28 UN 14 15 CR 0.53 0.56 GLU 83 84 CBC Recent Labs 02/10/24 0706 02/11/24 0725 HGB 9.2* 8.8* WBC 6.87 5.83 PLT 221 197 LFT Lab Results Component Value Date/Time ALBUMIN 2.3 (L) 02/11/2024 0725 ALP 126 (H) 02/11/2024 0725 ALT <5 02/11/2024 0725 AST 34 02/11/2024 0725 BILIDIR 0.4 (H) 02/11/2024 0725 TBILI 0.9 02/11/2024 0725 TPRO 6.3 (L) 02/11/2024 0725 INR Lab Results Component Value Date/Time PT 23.0 (H) 02/11/2024 0725 APTT 33.0 02/02/2024 1600 INR 2.0 (H) 02/11/2024 0725 PANC Lab Results Component Value Date/Time LIPASE 13 02/02/2024 1601 No results found for: AMYLASE IMAGING/PROCEDURES: I have reviewed the cross sectional images as well as the Radiology reports from the following tests: CT ABDOMEN/PELVIS W/IV CON (02/11/2024 14:22) XR ABDOMEN 1 VIEW* (02/11/2024 10:07) CT ABDOMEN/PELVIS OUTSIDE FILMS (07/08/2022 08:29) CT CHEST/ABDOMEN/PELVIS OUTSIDE FILMS (09/20/2021 09:02) CT CHEST/ABDOMEN/PELVIS OUTSIDE FILMS (05/08/2017 13:06) CT ABDOMEN/PELVIS W/IV CON (02/02/2024 18:50) Colonoscpy 07/25/21: Impression: - Tortuous/redundant colon. - Melanosis in the colon. - The examined portion of the ileum was normal. - The examination was otherwise normal. - No specimens collected. Recommendation: - Return to GI clinic as previously scheduled. EGD 09/14/23: Impression: - Normal esophagus. Biopsied. - Gastric bypass with a normal-sized pouch. Gastrojejunal anastomosis characterized by healthy appearing mucosa. - Normal examined jejunum. Recommendation: - Await pathology results. - I would be happy to see this patient in the clinic if biopsies are negative and symptoms continue. * Ernestine Toribio MD - 02/11/2024 3:19 PM CDT MEDICINE PROGRESS NOTE - Staff Cathy Raymond : 1965 Sex: female Patient Summary: Cathy Raymond is a 58 yo female with decompensated cirrhosis with significant ascites, who presents with a displaced periprosthetic femur fracture from a fall at home. Patient also noted to have severe chronic bowel distension on imaging. Assessment & Plan: Significant distention of the sigmoid colon, chronic seen in imaging since 2017 Possible sigmoid volvulus (ruled out) Complicated multifactorial polyneuropathy. Lactate was normal and there is no evidence of perforation or peritonitis. Discussed imaging finding with Radiology and the findings in the sigmoid are chronic seen in imaging dating back to 2017. - GI and surgery consulted and have signed off, no surgical intervention or endoscopic interventionneeded - Abdominal xray done today due to patient report of worsening abdominal distension and pain. Xray with increasing sigmoid colon distension. - CT abdomen/pelvis ordered Acute displaced angulated periprosthetic fracture of the distal femur s/p IMN R Femur Osteoporosis managed with oral alendronate Prior left femur fracture s/p IMN 2019 - Orthopedics consulted, appreciate assistance - Pain control with scheduled Acetaminophen and PRN Oxycodone - Continue Lovenox x4 weeks Diabetic neuropathic ulceration, full thickness, with fat layer exposed MSSA positive right foot wound culture - Podiatry consulted, appreciate assistance - Continue Cefazolin - Follow up with Podiatry outpatient MSSA bacteremia Bacillus species not anthracis in one set of blood culture-contaminant Ecoli UTI with microscopic hematuria Blood cultures from outside hospital one set finalized and growing MSSA. Also notified by hospital patient had a right foot wound culture growing MSSA as well. 02/02 blood culture collected here growing bacillus species not anthracis, no gpcs or MSSA. 02/03 blood culture with no growth to date -ID consulted, appreciate assistance - While inpatient start Cefazolin 2gm Q8 Hrs, this will cover MSSA and urine E. 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 Paracentesis in ED and on 02/07. MELD 3.0: 20 at 02/11/2024 7:25 AM MELD-Na: 18 at 02/11/2024 7:25 AM Calculated from: Serum Creatinine: 0.56 mg/dL (Using min of 1 mg/dL) at 02/11/2024 7:25 AM Serum Sodium: 132 mEq/L at 02/11/2024 7:25 AM Total Bilirubin: 0.9 mg/dL (Using min of 1 mg/dL) at 02/11/2024 7:25 AM Serum Albumin: 2.3 g/dL at 02/11/2024 7:25 AM INR(ratio): 2.0 at 02/11/2024 7:25 AM Age at listing (hypothetical): 58 years Sex: Female at 02/11/2024 7:25 AM - Continue decreased doses of SPECIALIST FIELD ENGINEER Furosemide and Spironolactone Urinary retention Patient noted to be retaining urine, requiring straight catheterization. Cano replaced on 02/07. - Follow up with Urology Lower extremity edema with weeping LE wounds Probable cellulitis of the left foot - Elevate LLE - Continue Cefazolin as above #Hypokalemia (Resolved) # Anemia, stable. Hemoglobin 8.8 today. - Continue to monitor # Hypothyroidism on Levothyroxine # Chronic neuropathic pain on Gabapentin # Diabetes mellitus type 2 # Obstructive sleep apnea # Obesity with BMI 32 # Vitamin B12 deficiency # CIDP # Neurogenic bowel/bladder # Seasonal allergies # Major depression # Constipation # Insomnia # GERD Diet: Diet: Regular; 2 Gm Sodium DVT PPx: Lovenox Code Status: Full Code Therapies: PT following and OT following Dispo: Not medically ready Subjective/Events of Past 24 Hours: Hospital Day: 9 Ms. Raymond reports doing ok this morning. She reports abdominal pain and distension. She denies passing gas or bowel movements. Objective: Vital Signs: BP 85/51 Pulse 73 Temp 36.6 ??C (97.9 ??F) (Oral) Resp 18 Ht 1.727 m (5' 8) Wt 98.4 kg (217 lb) SpO2 99% BMI 32.99 kg/m?? Temp (24hrs), Av.6 ??C (97.8 ??F), Min:36.4 ??C (97.6 ??F), Max:36.6 ??C (97.9 ??F) Intake/Output Summary (Last 24 hours) at 02/11/2024 1519 Last data filed at 02/11/2024 0700 Gross per 24 hour Intake 360 ml Output 5701 ml Net -5341 ml Physical Exam: GEN: Awake and alert, not in acute distress HEENT: Normocephalic, atraumatic, no scleral icterus CV: Regular rate and rhythm, no murmurs, rubs or gallops PULM: Anterior lung lenz: Clear to ausculation bilaterally, no wheezes, rales or rhonchi ABD: Normal bowel sounds, firm, distended, non-tender to palpation, no rigidity or guarding EXT: No pedal edema NEURO: Awake and alert, answers all questions, moves all limbs Lab and diagnotic results: Pertinent labs and imaging personally reviewed in [facility] and applied to medical decision making. Ernestine Toribio MD, 02/11/2024 3:19 PM Hospitalist - Department of Medicine Page via [facility] MDM: The patient's problem complexity is: [x] High or [] Moderate because 2 of the following apply: Problems [x] Patient has either an acute illness posing a threat to bodily function [x] and/or one acute/chronic illness with severe exacerbation, progression, or side effects from treatment Data [x] I ordered new tests [x] I reviewed tests [] I took further history from the patient's family or outside providers [x] I reviewed consultants notes ----- [x] I reviewed a test/image and provided my own personal interpretation ----- [] I interpreted tests someone else ordered (reviewing labs/imaging) [x] I talked to a websphere commerce consultant and/or members of the case management and nursing team During this visit, I also did the following adding to morbidity of this patient [] I escalated the level of care [] I held a goals of care discussion [] I prescribed opiates/benzos [x] I continued/started a medication requiring intensive monitoring for toxicity * Saranya Parker, PT - 02/11/2024 2:57 PM CDT Physical therapy note: Pt unavailable for PT today, on her way to [place]. Will see tomorrow as able Saranya Parker, PT Pager:[employer] License Number [id number] 02/11/2024 * Eugenia Mead OTR/Bethanie - 02/11/2024 2:38 PM CDT Occupational Therapy Note: Arrived for OT session however pt being transported to [place], pt reports feeling awful today. OT will follow up at a later date. Eugenia Mead OTR/Bethanie, 02/11/2024 2:39 PM * Mindy Swan APRN, HAND BRAILLE TRANSCRIBER - 02/11/2024 11:12 AM CDT Palliative Care Note Cathy Raymond : 1965 [...] Palliative Care Recommendations Goals of Care -Tiny would like her , Jai, to serve as her surrogate in the event that she can not make her own decisions -initially Tiny had stated that she wanted to be DNR after surgery. She is now unsure. She would like to remain full code while she continues to think about it Treatment Goals: Rehabilitative Illness understanding: In-line with medical team Supportive Care: Requires hospitalization Thank you for involving palliative medicine in the care of this patient. Please do not hesitate to call with questions or concerns. Mindy Swan, DARIO, HAND BRAILLE TRANSCRIBER, 02/11/2024 11:22 AM Palliative Medicine Available [facility] Advance Care Planning [...] She is alert and oriented. She is disappointed at theway things are going. She feels that PT and OT are going well but her distended abdomen is bothersome. She is looking forward to eventually leaving the hospital but worries about what the future holds. Reviewed our previous discussion during which she stated that she would like to be DNR after surgery. She states that now she is having second thoughts. Discussed that there is no soto in making thisdecision and she should talk it over with her family if she would like. Discussed that if she did want to be DNR we would fill out a POLST so that it could go with her when she is discharged. Palliative/Supportive Evaluation Palliative medicine strives to learn about the person behind the illness. There are numerous facetsof life that contribute to a person's perspective on their serious illness including: their currentliving situation and support system, degree of independence, their hobbies, activities and interests, spirituality or anabaptism, personal experience with end of life, and personal hopes, worries. Thisbackground is essential in understanding what is most important and how that can change throughout the course of a serious illness. This summary is an attempt to highlight that background. Social History Social History Narrative Tiny is to her , Jai. She has one daughter and two grandchildren. She is Hoahaoism. When feeling well she likes to have [...] kg (217 lb) Vital Signs: Blood pressure 87/56, pulse 73, temperature 36.6 ??C (97.9 ??F), temperature source Oral, resp. rate 18, height 1.727 m (5' 8), weight 98.4 kg (217 lb), SpO2 99%. Physical Exam General: sitting up in bed, [...] following labs and imaging (reports and images) PANEL HEPATIC FUNCTION (02/11/2024 07:25) PROTHROMBIN (PT) & INR (02/11/2024 07:25) CBC WITH PLATELET (02/11/2024 07:25) anemia noted Time/Medical Decision Making Medium Complexity (MDM): [x] Patient has 1+ chronic illnesses with exacerbation or side effect of treatment OR 1+ undiagnosed new problem with uncertain prognosis, OR 1+ acute illness w/systemic symptoms, OR 1+ acute complicated injury --AND-- Complexity of Data (Need 1) [] I discussed plan of care and/or test interpretations with the medical, case management, therapy and/or nursing team [x] I interpreted tests someone else ordered (reviewing labs/imaging) [] I reviewed external notes, internal or external tests, AND took further history from family or facility --OR-- Morbidity (Need 1): [] Patient has Social Determinants of Health that significantly impact their treatment plan [] Medication management recommendations Mindy Swan APRN, CNP, 02/11/2024 11:22 AM * Vignesh Jorge MD - 02/11/2024 6:22 AM CDT Orthopaedic Surgery Progress Note 02/11/2024 S: DESIRE. ZORAIDAVSS. Nursing notes reviewed. Patient sleeping comfortably. Patient's pin site vac removed. O: BP 103/59 (Cuff Location: Left Arm) Pulse 83 Temp 36.4 ??C (97.6 ??F) (Tympanic) Resp 18 Ht1.727 m (5' 8) Wt 98.4 kg (217 lb) SpO2 94% BMI 32.99 kg/m?? Exam: Gen: No acute distress, sleeping. Resp: Non-labored breathing Msk: RLE -Dressings c/d/i -Foot warm Lab Results Component Value Date/Time WBC 6.87 02/10/2024 0706 WBC 9.53 02/07/2024 0605 HGB 9.2 (L) 02/10/2024 0706 HGB 9.5 (L) 02/07/2024 0605 PLT 221 02/10/2024 0706 PLT 149 (L) 02/07/2024 0605 CR 0.53 02/10/2024 0706 CR 0.59 02/08/2024 0819 Lab Results (Last 120 hours) Procedure Component Value Ref Range Date/Time URINE CULTURE [[id number]] Collected: 02/02/24 1703 Specimen: Urine Updated: 02/02/242204 BODY FLUID CULTURE:INCLUDES GRAM STAIN [[id number]] Collected: 02/02/241950 Specimen: Peritoneal Fluid from Peritoneum [...] Antibiotics: Continue ancef per ID Diet: ADAT Cano: Remove POD1 DVT prophylaxis: Lovenox 40mg daily x 4 weeks Wound/Incision Care/Vac: Wound vac over pin sites to remain pending output--removed 02/10/24, site covered with gauze and tegaderm. OK to reinforce dressings as needed Pain [...] check Vignesh Jorge MD Orthopaedic Surgery, PGY-3 * Mando Briceno, PT - 02/10/2024 3:54 PM CDT Physical Therapy Progress Note PT Discharge Recommendations Discharge Recommendations: Post-acute placement [...] has FWW, 4WW, MWC, toilet seat riser, son lift at home) S: Patient supine in bed when PT arrives, agreeable to PT/OT co-treat session Pain Pain Rating With Activity (Numeric): (Did not rate but reports abdominal pain secondary to distension, R LE pain) Participation Significantly Limited?: No Intervention: Notified RN;Positioning O: Mental Status Mental Status: Alert;Cooperative Follows Directions: Consistently follows commands Restrictions/Precautions Weight Bearing Restrictions: R LE NWB, can WB for transfers per Ortho Complies w/ Weight Bearing?: Yes Precautions: Other (Falls, Wound vac (removed by Ortho provider during session)) Complies w/ Precautions?: Yes Vital Signs 02/09/2024 2304 02/10/2024 0751 02/10/2024 1500 BP: 94/63 90/62 95/60 Patient Position for BP: Lying Down Lying Down Sitting Pulse: 72 70 77 SpO2: 92 % 100 % 97 % Room Air Transfer & Bed Mobility Roll Left: Moderate assist (Rolling to position sling in preparation for transfer to chair) Roll Right: Moderate assist Supine to/from Sit: Total (dependent) (Assist of 2 with use of drawsheet) Bed to/from Chair: Total (dependent) Bed to/from Chair - Method: (Son transfer) Sitting Static Balance Level of Assistance: Upper Extremity Support Trunk Control: Decreased core Stability;Leans posteriorly (Leans posteriorly secondary to abdominaldistension/swelling) Interdisciplinary Communication RN: Updated re: session performance, notified re: patient up to chair and A of 2 for Son transfers OT: Co-treat Fall Risk Assessment: Patient is deemed high fall risk per protocol Positioning: Pt left up in chair at end of session, call light within reach Pt up in chair; in reclined position with foot rest elevated AirTaps seating system cushion, Son sling in place for return to bed with assist from nursing staff ; RN notified Treatment rendered: Bed mobility training;Positioning;Transfer training Total treatment time: 25 minutes THERAPEUTIC/FUNCTIONAL ACTIVITY: Mobility/transfer training with cueing/assist from therapist as noted above A: Patient making steady progress toward functional PT goals per tolerance for progression to bed<>chair transfer this date, requires Son/mechanical lift to complete safely but tolerated wellthis date per minimal reports of pain and no reports of lightheadedness/other adverse symptoms. Patient appropriate for continued transfers with Son lift transfers with assist of 2 from nursing staf f. From a PT standpoint, continuing to recommend post-acute placement at discharge. Patient will continue to benefit from acute PT intervention to address his deficits. P: Patient will be seen 3-5x/week until goals are met or patient is discharged. Next visit the planis to work on bed<>chair transfers, sitting balance, standing in Stacy Stedy vs EZ stand as tolerated, LE exercises. Problem: Decreased Transfer Skills Goal: Patient will transfer supine to/from sit Description: Patient will transfer supine to/from sit with (6) Modified Garrett in order to safely mobilize OOB by 02/19/24. Outcome: In progress Goal: Patient will transfer bed to/from wheelchair Description: Patient will transfer bed to/from wheelchair with (5) Supervision, Set-Up or Standby Prompting with sliding board or pivot method in order to progress to PLOF by 02/19/24. Outcome: In progress Problem: Decreased Wheelchair Mobility Goal: Improve manual wheelchair propulsion Description: Improve manual wheelchair propulsion >20m with (6) Modified Garrett in order to progress toward PLOF by 02/19/24. Outcome: In progress SPECIALIST FIELD ENGINEER Appropriate: No (needs mobility progressed) Mando Briceno PT 02/10/2024 Pager: [facility] [employer] PT [facility] * Ernestine Toribio MD - 02/10/2024 2:50 PM CDT MEDICINE PROGRESS NOTE - Staff Cathy Raymond : 1965 Sex: female Patient Summary: Cathy Raymond is a 58 yo female with decompensated cirrhosis with significant ascites, who presents with a displaced periprosthetic femur fracture from a fall at home. Patient also noted to have severe chronic bowel distension on imaging. Assessment & Plan: Acute displaced angulated periprosthetic fracture of the distal femur s/p IMN R Femur Osteoporosis managed with oral alendronate Prior left femur fracture s/p IMN 2020 - Orthopedics consulted, appreciate assistance - Pain control with scheduled Acetaminophen and PRN Oxycodone -Continue Lovenox x4 weeks Diabetic neuropathic ulceration, full thickness, with fat layer exposed MSSA positive right foot wound culture - Podiatry consulted, appreciate assistance - Continue Cefazolin - Follow up with Podiatry outpatient MSSA bacteremia Bacillus species not anthracis in one set of blood culture-contaminant Ecoli UTI with microscopic hematuria Blood cultures from outside hospital one set finalized and growing MSSA. Also notified by hospital patient had a right foot wound culture growing MSSA as well. 02/02 blood culture collected here growing bacillus species not anthracis, no gpcs or MSSA. 02/03 blood culture with no growth to date -ID consulted, appreciate assistance - While inpatient start Cefazolin 2gm Q8 Hrs, this will cover MSSA and urine E. 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 Paracentesis in ED and on 02/07. - Continue Furosemide and Spironolactone - Will increase in AM if BP remains stable Urinary retention Patient noted to be retaining urine, requiring straight catheterization. Cano replaced on 02/07. - Follow up with Urology Significant distention of the sigmoid colon, chronic seen in imaging since 2017 Possible sigmoid volvulus (ruled out) Complicated multifactorial polyneuropathy. Lactate was normal and there is no evidence of perforation or peritonitis. Discussed imaging finding with Radiology and the findings in the sigmoid are chronic seen in imaging dating back to 2017. - GI and surgery consulted and have signed off, no surgical intervention or endoscopic interventionneeded -Continue bowel regimen Lower extremity edema with weeping LE wounds Probable cellulitis of the left foot - Elevate LLE - Continue Cefazolin as above #Hypokalemia (Resolved) # Anemia, improving. Hemoglobin 9.2 today. - Continue to monitor # Hypothyroidism on Levothyroxine # Chronic neuropathic pain on Gabapentin # Diabetes mellitus type 2 # Obstructive sleep apnea # Obesity with BMI 32 # Vitamin B12 deficiency # CIDP # Neurogenic bowel/bladder # Seasonal allergies # Major depression # Constipation # Insomnia # GERD Diet: Diet: Regular; 2 Gm Sodium DVT PPx: Lovenox Code Status: Full Code Therapies: PT following and OT following Dispo: Medically ready, awaiting placement Subjective/Events of Past 24 Hours: Hospital Day: 8 Ms. Raymond reports doing ok this morning. She reports abdominal pain. She is tolerating a diet with no problems. Objective: Vital Signs: BP 90/62 (Cuff Location: Left Arm) Pulse 70 Temp 36.7 ??C (98 ??F) (Oral) Resp 17 Ht 1.727 m (5' 8) Wt 98.4 kg (217 lb) SpO2 100% BMI 32.99 kg/m?? Temp (24hrs), Av.9 ??C (98.5 ??F), Min:36.7 ??C (98 ??F), Max:37.2 ??C (98.9 ??F) Intake/Output Summary (Last 24 hours) at 02/10/2024 1450 Last data filed at 02/10/2024 1000 Gross per 24 hour Intake 200 ml Output 0 ml Net 200 ml Physical Exam: GEN: Awake and alert, not in acute distress HEENT: Normocephalic, atraumatic, no scleral icterus CV: Regular rate and rhythm, no murmurs, rubs or gallops PULM: Anterior lung lenz: Clear to ausculation bilaterally, no wheezes, rales or rhonchi ABD: Normal bowel sounds, soft, distended, non-tender to palpation, no rigidity or guarding EXT: No pedal edema NEURO: Awake and alert, answers all questions, moves all limbs Lab and diagnotic results: Pertinent labs and imaging personally reviewed in [facility] and applied to medical decision making. Ernestine Toribio MD, 02/10/2024 2:50 PM Hospitalist - Department of Medicine Page via [facility] MDM: The patient's problem complexity is: [x] High or [] Moderate because 2 of the following apply: Problems [x] Patient has either an acute illness posing a threat to bodily function [x] and/or one acute/chronic illness with severe exacerbation, progression, or side effects from treatment Data [x] I ordered new tests [x] I reviewed tests [] I took further history from the patient's family or outside providers [x] I reviewed consultants notes ----- [x] I reviewed a test/image and provided my own personal interpretation ----- [] I interpreted tests someone else ordered (reviewing labs/imaging) [x] I talked to a websphere commerce consultant and/or members of the case management and nursing team During this visit, I also did the following adding to morbidity of this patient [] I escalated the level of care [] I held a goals of care discussion [] I prescribed opiates/benzos [x] I continued/started a medication requiring intensive monitoring for toxicity * Eugenia Mead OTR/Bethanie - 02/10/2024 2:07 PM CDT Occupational Therapy Progress Note 02/10/2024 OT Discharge Recommendations Discharge Recommendations: Post-acute placement recommended Level/type of placement (OT): Sub-Acute Rehab facility Post Discharge Follow-up: OT at post-acute placement Equipment Recommended: Equipment needs to be determined at next level of care OT In-patient follow-up / recommended referrals: Continue skilled OT services to achieve the goals on the plan of care / maximize safety and independence with ADL's / IADL's: - Recommended Frequency: 2-4x / week - Anticipated Duration of OT services: throughout hospital stay PM&R Consult Recommended: Not at this time Precautions/Restrictions: Activity Level: Up with Assist (02/07/24 1500) General Precautions: High falls risk (02/07/24 1500) Weight-bearing Restrictions: Right LE - NWB (ok to WB for transfers only) (02/09/24 1400) Complies w/ Weight Bearing?: Yes SUBJECTIVE: Pt reports feeling very tired today, wondering when she will have another paracentesis as she is quite uncomfortable Pain Increases with movement- RLE OBJECTIVE: Activities of Daily Living Assist with all cares bed level Functional Mobility Roll Left : Moderate assist (50% patient effort) (to manage RLE) Bed to/from Chair: Dependent (less than 25% patient effort) (son lift) Cognition Mental Status: Oriented x 3;Alert;Cooperative;Follows 1 step direction Delirium assessment: Confusion Assessment Method (CAM) Acute onset OR fluctuating course: No CAM result: Negative Delirium prevention / intervention appears indicated? Yes, as a preventative measure: Interventions provided - promoted mobility Interdisciplinary Communication: RN: pt up to chair via son ASSESSMENT: Pt uncomfortable with extended abdomen, agreeable to get up to chair. Pt tolerated transfer with son lift without issue. Continue to recommend post acute placement. This patient will continue to benefit from skilled OT services for ADL retraining, activity tolerance, and functional mobility to maximize independence and safety with ADLs. PLAN: Continue skilled OT services to achieve the goals on the plan of care: Total treatment time: 25 minutes OT interventions and time spent on each: Self care/Home mgmt/ADL: 25 minutes LILY Ling/Bethanie Pager: [facility] OT Department * Yuni Fernandez - 02/10/2024 1:52 PM CDT Clinical Coordination Note Patient's current status, plan of care, current issues and progress towards meeting discharge criteria were reviewed and discussed with interdisciplinary team members present. Medically ready. SW working on placement. Discharge disposition: TCU Follow-up needs: Podiatry and possibly urology Anticipated discharge date: 02/12/24 RNCC's will continue to follow monitoring patient's progress & assist with discharge planning. Please notify RNCC with any concerns or barriers to discharge. * Vignesh Jorge MD - 02/10/2024 6:12 AM CDT Orthopaedic Surgery Progress Note 02/10/2024 S: MATTO. CAROLINAS. Nursing notes reviewed. Patient sleeping comfortably. O: BP 94/63 (Cuff Location: Right Arm) Pulse 72 Temp 37 ??C (98.6 ??F) (Oral) Resp 16 Ht 1.727m (5' 8) Wt 98.4 kg (217 lb) SpO2 92% BMI 32.99 kg/m?? Exam: Gen: No acute distress, sleeping. Resp: Non-labored breathing Msk: RLE -Pin site WV holding suction, no output in canister -Dressings c/d/i -Foot warm Lab Results Component Value Date/Time WBC 9.53 02/07/2024 0605 WBC 5.51 02/05/2024 0915 HGB 9.5 (L) 02/07/2024 0605 HGB 8.8 (L) 02/06/2024 0710 PLT 149 (L) 02/07/2024 0605 PLT 164 02/05/2024 0915 CR 0.59 02/08/2024 0819 CR 0.58 02/07/2024 0605 Lab Results (Last 120 hours) Procedure Component Value Ref Range Date/Time URINE CULTURE [[id number]] Collected: 02/02/241702 Specimen: Urine Updated: 02/02/242204 BODY FLUID CULTURE:INCLUDES GRAM STAIN [[id number]] Collected: 02/02/241950 Specimen: Peritoneal Fluid from Peritoneum [...] Antibiotics: Continue ancef per ID Diet: ADAT Cano: Remove POD1 DVT prophylaxis: Lovenox 40mg daily [...] check Vignesh Jorge MD Orthopaedic Surgery, PGY-3 * Mando Briceno, PT - 02/09/2024 3:08 PM CDT Images from the original note were not included. Physical Therapy Progress Note PT Discharge Recommendations Discharge Recommendations: Post-acute placement [...] has FWW, 4WW, MWC, toilet seat riser, son lift at home) S: Patient supine in bed when PT arrives, agreeable to PT/OT co-treat session Pain Pain Rating With Activity (Numeric): (Did not rate but reports abdominal pain secondary to distension, R LE pain) Participation Significantly Limited?: Yes Intervention: Notified RN;Positioning O: Mental Status Mental Status: Alert;Cooperative Follows Directions: Consistently follows commands Restrictions/Precautions Weight Bearing Restrictions: R LE NWB, can WB for transfers per Ortho Complies w/ Weight Bearing?: Yes Precautions: Other (Falls, Wound vac) Complies w/ Precautions?: Yes Vital Signs 02/08/2024 1600 02/08/2024 2351 02/09/2024 0755 BP: 84/53 91/57 88/59 Patient Position for BP: Lying Down Lying Down Lying Down Pulse: 84 75 77 SpO2: 98 % 95 % 96 % Room Air Transfer & Bed Mobility Roll Left: Moderate assist (with use of bedrail - noted patient having small amount of loose stool while on left said - total assist with pericare; attempted use of bedpan however once returned to supine on bedpan patient reporting no longer needing to have BM) Supine to/from Sit: Total (dependent) (Assist of 2 with use of drawsheet) Sit to/from Stand: (Attempted with Stacy Stedy and assist of 2, however patient unable to initiate despite heavy assist of 2 with draw sheet around hips/buttocks) Sitting Static Balance Level of Assistance: Upper Extremity Support Trunk Control: Decreased core Stability;Leans posteriorly (Sat EOB ~15 minutes) Interdisciplinary Communication RN: Updated re: session performance and patient's request for pain medication OT: Co-treat Fall Risk Assessment: Patient is deemed high fall risk per protocol Positioning: Patient supine in bed offloaded/microturned toward R side via pillows, all needs within reach Treatment rendered: Bed mobility training;Positioning;Balance/coordination training;Transfer training Total treatment time: 45 minutes THERAPEUTIC/FUNCTIONAL ACTIVITY: Bed mobility/sitting balance with cueing/assist as noted above, time spent providing education on Stacy Stedy vs other equipment available to assist with sit<>stands, attempt at sit<>stand with Stacy Stedy however patient unable to stand despite heavy assist of 2 secondary to profound weakness. A: Patient continues with limited tolerance for mobility this date secondary to pain, agreeable to attempting sit<>Stand with Stacy Stedy but with minimal strength for pulling with UEs as well as little initiation with bilateral LEs. Continuing to recommend post-acute placement at discharge. Patient will continue to benefit from acute PT intervention to address her deficits. P: Patient will be seen 3-5x/week until goals are met or patient is discharged. Next visit the planis to work on sitting EOB, Son transfer to wheelchair as tolerated, supine LE exercises. Problem: Decreased Transfer Skills Goal: Patient will transfer supine to/from sit Description: Patient will transfer supine to/from sit with (6) Modified Garrett in order to safely mobilize OOB by 02/19/24. Outcome: In progress Goal: Patient will transfer bed to/from wheelchair Description: Patient will transfer bed to/from wheelchair with (5) Supervision, Set-Up or Standby Prompting with sliding board or pivot method in order to progress to PLOF by 02/19/24. Outcome: In progress Problem: Decreased Wheelchair Mobility Goal: Improve manual wheelchair propulsion Description: Improve manual wheelchair propulsion >20m with (6) Modified Garrett in order to progress toward PLOF by 02/19/24. Outcome: In progress SPECIALIST FIELD ENGINEER Appropriate: No (needs mobility progressed) Mando Briceno, PT 02/09/2024 Pager: [facility] * Eugenia Mead, OTR/L - 02/09/2024 11:00 AM CDT Occupational Therapy Progress Note 02/09/2024 OT Discharge Recommendations Discharge Recommendations: Post-acute placement recommended Level/type of placement (OT): Sub-Acute Rehab facility Post Discharge Follow-up: OT at post-acute placement Equipment Recommended: Equipment needs to be determined at next level of care OT In-patient follow-up / recommended referrals: Continue skilled OT services to achieve the goals on the plan of care / maximize safety and independence with ADL's / IADL's: - Recommended Frequency: 3x / week - Anticipated Duration of OT services: throughout hospital stay - Interventions: ADL retraining, activity tolerance, and functional mobility Precautions/Restrictions: Activity Level: Up with Assist (02/07/24 1500) General Precautions: High falls risk (02/07/24 1500) Weight-bearing Restrictions: Right LE - NWB (ok to WB for transfers only) (02/09/24 1400) Complies w/ Weight Bearing?: Yes Complies w/ Precautions?: Yes SUBJECTIVE: Pt is apprehensive to mobilize but puts forth good effort in today's session Pain Pain Rating With Activity (Numeric): (not rated) Location: RLE Participation Significantly Limited?: No Action Taken: Nursing aware and addressing;Repositioned patient with reported relief OBJECTIVE: Activities of Daily Living Toileting: Dependent (less than 25% patient effort) Toileting Comments: loose stools with rolling in bed Functional Mobility Roll Left : Moderate assist (50% patient effort) (to manage RLE) Supine to/from Sit: Dependent (less than 25% patient effort) (assist of 2) Sit to/from Stand : Unable to perform (attempted with assist of 2 and stacy mo) Cognition Mental Status: Oriented x 3;Alert;Cooperative;Follows 1 step direction Delirium assessment: Confusion Assessment Method (CAM) Acute onset OR fluctuating course: No CAM result: Negative Delirium prevention / intervention appears indicated? Yes, as a preventative measure: Interventions provided - engaged pt in functional tasks - promoted mobility ASSESSMENT: Assist of 2 for bed mobility and mobilizing to EOB sitting. Introduced stacy mo for attempt at sit to stand however with heavy assist of 2 unable d/t weakness. Pt currently requires a son lift for transfers which she reports she already has it home. It was for emergency cases if sheneeded help off of the floor after a fall. Pt's however has MS and a bad back per pt and would not be able to care for her in her current state, Continue to recommend post acute placement with ongoing OT services. This patient will continue to benefit from skilled OT services for ADL retraining, activity tolerance, and functional mobility to maximize independence and safety with ADLs. PLAN: Continue skilled OT services to achieve the goals on the plan of care: Plan For Next OT Session: --EOB ADLs , son to chair Total treatment time: 45 minutes OT interventions and time spent on each: Self care/Home mgmt/ADL: 45 minutes LILY Ling/Bethanie Pager: [facility] OT Department * Ernestine Toribio MD - 02/09/2024 8:08 AM CDT MEDICINE PROGRESS NOTE - Staff Cathy Raymond : 1965 Sex: female Patient Summary: Cathy Raymond is a 58 yo female with decompensated cirrhosis with significant ascites, who presents with a displaced periprosthetic femur fracture from a fall at home. Patient also noted to have severe chronic bowel distension on imaging. Assessment & Plan: Acute displaced angulated periprosthetic fracture of the distal femur s/p IMN R Femur Osteoporosis managed with oral alendronate Prior left femur fracture s/p IMN 2020 - Orthopedics consulted, appreciate assistance - Pain control with scheduled Acetaminophen and PRN Oxycodone -Continue Lovenox x4 weeks Diabetic neuropathic ulceration, full thickness, with fat layer exposed MSSA positive right foot wound culture - Podiatry consulted, appreciate assistance - Continue Cefazolin - Follow up with Podiatry outpatient MSSA bacteremia Bacillus species not anthracis in one set of blood culture-contaminant Ecoli UTI with microscopic hematuria Blood cultures from outside hospital one set finalized and growing MSSA. Also notified by hospital patient had a right foot wound culture growing MSSA as well. 02/02 blood culture collected here growing bacillus species not anthracis, no gpcs or MSSA. 02/03 blood culture with no growth to date -ID consulted, appreciate assistance - While inpatient start Cefazolin 2gm Q8 Hrs, this will cover MSSA and urine E. 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 Paracentesis in ED and on 02/07. - Continue Furosemide and Spironolactone - Will increase in AM if renal function and electrolytes wnl Urinary retention Patient noted to be retaining urine, requiring straight catheterization -Cano replaced on 02/07. - Follow up with Urology Significant distention of the sigmoid colon, chronic seen in imaging since 2017 Possible sigmoid volvulus (ruled out) Complicated multifactorial polyneuropathy. Lactate was normal and there is no evidence of perforation or peritonitis. Discussed imaging finding with radiology and the findings in the sigmoid are chronic seen in imaging dating back to 2017. - GI and surgery consulted and have signed off, no surgical intervention or endoscopic interventionneeded -Continue bowel regimen Lower extremity edema with weeping LE wounds Probable cellulitis of the left foot - Elevate LLE - Continue Cefazolin as above #Hypokalemia (Resolved) # Anemia, improving. Hemoglobin 9.5 on 02/06. - Continue to monitor # Hypothyroidism on Levothyroxine # Chronic neuropathic pain on Gabapentin # Diabetes mellitus type 2 # Obstructive sleep apnea # Obesity with BMI 32 # Vitamin B12 deficiency # CIDP # Neurogenic bowel/bladder # Seasonal allergies # Major depression # Constipation # Insomnia # GERD Diet: Diet: Regular DVT PPx: Lovenox Code Status: Full Code Therapies: PT following and OT following Dispo: Medically ready, awaiting placement Subjective/Events of Past 24 Hours: Hospital Day: 7 Ms. Raymond reports doing ok this morning. She reports abdominal pain. She is tolerating a diet with no problems. Objective: Vital Signs: BP 88/59 (Cuff Location: Right Arm) Pulse 77 Temp 36.8 ??C (98.2 ??F) (Oral) Resp 16 Ht 1.727 m (5' 8) Wt 98.4 kg (217 lb) SpO2 96% BMI 32.99 kg/m?? Temp (24hrs), Av.1 ??C (98.8 ??F), Min:36.8 ??C (98.2 ??F), Max:37.6 ??C (99.6 ??F) Intake/Output Summary (Last 24 hours) at 02/09/2024 0808 Last data filed at 02/09/2024 0451 Gross per 24 hour Intake 1800 ml Output 400 ml Net 1400 ml Physical Exam: GEN: Awake and alert, not in acute distress HEENT: Normocephalic, atraumatic, no scleral icterus CV: Regular rate and rhythm, no murmurs, rubs or gallops PULM: Anterior lung lenz: Clear to ausculation bilaterally, no wheezes, rales or rhonchi ABD: Normal bowel sounds, soft, distended, non-tender to palpation, no rigidity or guarding EXT: No pedal edema NEURO: Awake and alert, answers all questions, moves all limbs Lab and diagnotic results: Pertinent labs and imaging personally reviewed in [facility] and applied to medical decision making. Ernestine Toribio MD, 02/09/2024 8:08 AM Hospitalist - Department of Medicine Page via [facility] MDM: The patient's problem complexity is: [x] High or [] Moderate because 2 of the following apply: Problems [x] Patient has either an acute illness posing a threat to bodily function [x] and/or one acute/chronic illness with severe exacerbation, progression, or side effects from treatment Data [x] I ordered new tests [x] I reviewed tests [] I took further history from the patient's family or outside providers [x] I reviewed consultants notes ----- [x] I reviewed a test/image and provided my own personal interpretation ----- [] I interpreted tests someone else ordered (reviewing labs/imaging) [x] I talked to a websphere commerce consultant and/or members of the case management and nursing team During this visit, I also did the following adding to morbidity of this patient [] I escalated the level of care [] I held a goals of care discussion [] I prescribed opiates/benzos [x] I continued/started a medication requiring intensive monitoring for toxicity * Vignesh Jorge MD - 02/09/2024 6:06 AM CDT Orthopaedic Surgery Progress Note 02/09/2024 S: NAEO. Pain well controlled. Denies new numbness, tingling, CP, SOB, fevers, chills. Wound vac replaced. O: BP 91/57 (Cuff Location: Right Arm) Pulse 75 Temp 36.9 ??C (98.5 ??F) (Oral) Resp 16 Ht 1.727 m (5' 8) Wt 98.4 kg (217 lb) SpO2 95% BMI 32.99 kg/m?? Exam: Gen: No acute distress. Resp: Non-labored breathing Msk: RLE -Pin site WV holding suction, no output in canister -Dressings c/d/i -Fires quad, EHL, FHL, TA, GaSC -No sensation to light touch in foot, diminished sensation throughout RLE -Foot warm Lab Results Component Value Date/Time WBC 9.53 02/07/2024 0605 WBC 5.51 02/05/2024 0915 HGB 9.5 (L) 02/07/2024 0605 HGB 8.8 (L) 02/06/2024 0710 PLT 149 (L) 02/07/2024 0605 PLT 164 02/05/2024 0915 CR 0.59 02/08/2024 0819 CR 0.58 02/07/2024 0605 Lab Results (Last 120 hours) Procedure Component Value Ref Range Date/Time URINE CULTURE [[id number]] Collected: 02/02/241702 Specimen: Urine Updated: 02/02/242204 BODY FLUID CULTURE:INCLUDES GRAM STAIN [[id number]] Collected: 02/02/241950 Specimen: Peritoneal Fluid from Peritoneum [...] Antibiotics: Continue ancef per ID Diet: ADAT Cano: Remove POD1 DVT prophylaxis: Lovenox 40mg daily [...] check Vignesh Jorge MD Orthopaedic Surgery, PGY-3 * Autumn Jerome MD - 02/08/2024 7:06 PM CDT MEDICINE PROGRESS NOTE Cathy Raymond [...] consulted -patient accepts the risk of surgery -NWB right lower extremity -pain control with prn oxycodone and iv dilaudid, scheduled low dose acetaminophen -lovenox x4 weeks -wound vac over pin sites in place GI saw patient and provided predicted post operative outcomes for major orthopedic surgery by ZE. 30-day mortality: 2.4% 90-day mortality: 6.4% 180-day mortality: 8.3% 90-day decompensation: 10.1% #diabetic neuropathic ulceration, full thickness, with fat layer exposed #MSSA positve right foot wound culture Podiatry consulted and expressed draining from foot sent for culture -culture growing MSSA currently covered with cefazolin, -wound dressings orders entered by podiatry to be completed by nursing -determine follow up needed with podiatry prior to discharge #MSSA bacteremia #Bacillus species not anthracis in [...] can repeat paracentesis as needed for ascites, repeat paracentesis performed on 02/07 4L removed -plan to resume furosemide and spironolactone (resumed at lower dose, can uptitrate as tolerated) #Ecoli UTI with microscopic hematuria -treat with [...] left foot -on cefazolin #Hypokalemia (Resolved) Potassium 3.8 # Anemia Hemoglobin 9.5 # Hypothyroidism on levothyroxine # Chronic neuropathic pain on gabapentin # Diabetes mellitus type 2 # Obstructive sleep apnea # Obesity with BMI 32 # Vitamin B12 deficiency # CIDP # Neurogenic bowel/bladder # Seasonal allergies # Major depression # Constipation # Insomnia # GERD - Continue SPECIALIST FIELD ENGINEER cetirizine, citalopram, gabapentin, levothyroxine, pantoprazole, PEG/senna, trazodone - HOLD oxybutynin - Check Hb A1c Subjective/Events of Past 24 Hours: Hospital Day: 6 Reports same amount of pain as yesterday Reports some dry skin Objective: Physical Exam GEN: NAD, laying in bed RES: clear lungs, on wheezing, rales or rhonchi CV: r/r/r, no murmurs, rubs or gallops ABD: distended , nontender to palpation EXT: right extremity in a dressing, SKIN: skin fold erythema slowly reducing Labs reviewed Cbc and bmp unremarkable . MELD 3.0: 20 at 02/08/2024 8:19 AM MELD-Na: 19 at 02/08/2024 8:19 AM Calculated from: Serum Creatinine: 0.59 mg/dL (Using min of 1 mg/dL) at 02/08/2024 8:19 AM Serum Sodium: 134 mEq/L at 02/08/2024 8:19 AM Total Bilirubin: 1.0 mg/dL at 02/08/2024 8:19 AM Serum Albumin: 2.5 g/dL at 02/08/2024 8:19 AM INR(ratio): 2.6 at 02/08/2024 8:19 AM Age at listing (hypothetical): 58 years Sex: Female at 02/08/2024 8:19 AM Charge Capture Die Cutting Machine Operator * Mando Briceno, PT - 02/08/2024 12:10 PM CDT Chart reviewed for PT follow-up session this AM, session attempted - unable to see as patient at procedure, will reattempt later this date vs tomorrow as time allows. Mando Briceno, PT, 02/08/2024 12:10 PM * Jesse Pineda RN - 02/08/2024 11:46 AM CDT TRANSFER NOTE Report called to nurse, of Cathy Raymond at [facility] Patient transported back to [facility] via Bed, Accompanied by Transporter, Patient's condition [...] Component Value Ref Range Date/Time URINE CULTURE [[id number]] Collected: 02/02/241702 Specimen: Urine Updated: 02/02/242204 BODY FLUID CULTURE:INCLUDES GRAM STAIN [[id number]] Collected: 02/02/241950 Specimen: Peritoneal Fluid from Peritoneum [...] Antibiotics: Continue ancef per ID Diet: ADAT Cano: Remove POD1 DVT prophylaxis: Lovenox 40mg daily [...] Constipation # Insomnia # GERD - Continue SPECIALIST FIELD ENGINEER cetirizine, citalopram, gabapentin, levothyroxine, pantoprazole, PEG/senna, trazodone [...] Female at 02/07/2024 6:05 AM Charge Capture Die Cutting Machine Operator * Dayo Henning MD - 02/07/2024 7:58 [...] Component Value Ref Range Date/Time URINE CULTURE [[id number]] Collected: 02/02/241702 Specimen: Urine Updated: 02/02/242204 BODY FLUID CULTURE:INCLUDES GRAM STAIN [[id number]] Collected: 02/02/241950 Specimen: Peritoneal Fluid from Peritoneum [...] Antibiotics: Continue ancef per ID Diet: ADAT Cano: Remove POD1 DVT prophylaxis: Lovenox 40mg daily [...] Constipation # Insomnia # GERD - Continue SPECIALIST FIELD ENGINEER cetirizine, citalopram, gabapentin, levothyroxine, pantoprazole, PEG/senna, trazodone [...] Female at 02/06/2024 7:10 AM Charge Capture Die Cutting Machine Operator * Cely Buck DPM - 02/06/2024 8:46 [...] patient's care at this time. Please page personal investment adviser resident with questions. INTERVAL ILLNESS: Patient seen [...] 0640 PLT 164 02/05/2024 0915 PLT 152 02/04/202440 CR 0.62 02/05/2024 0915 CR 0.64 02/04/2024 0640 Lab Results (Last 120 hours) Procedure Component Value Ref Range Date/Time URINE CULTURE [[id number]] Collected: 02/02/241702 Specimen: Urine Updated: 02/02/242204 BODY FLUID CULTURE:INCLUDES GRAM STAIN [[id number]] Collected: 02/02/241950 Specimen: Peritoneal Fluid from Peritoneum [...] Antibiotics: Continue ancef per ID Diet: ADAT Cano: Remove POD1 DVT prophylaxis: Lovenox 40mg daily [...] Constipation # Insomnia # GERD - Continue SPECIALIST FIELD ENGINEER cetirizine, citalopram, gabapentin, levothyroxine, pantoprazole, PEG/senna, trazodone [...] Female at 02/05/2024 9:15 AM Charge Capture Die Cutting Machine Operator * Gladys Samuels DPM - 02/05/2024 7:46 [...] continue to follow while inpatient. Please page personal investment adviser resident with questions. Patient was discussed with personal investment adviser staff, Dr. Samuels CHIEF COMPLAINT: Right foot [...] femur, initial encounter for closed fracture ([facility]) 02/02/2024 CURRENT HEALTH STATUS Medications: Current Facility-Administered Medications Medication Route Frequency clotrimazole (LOTRIMIN) 1% cream Topical bid bisacodyl (DULCOLAX) suppository 10 mg Rectal daily nystatin 064726 unit/g powder Topical bid citalopram (CeleXA) tablet [...] one daughter and two grandchildren. She is Hoahaoism. When feeling well she likes to have [...] Component Value Ref Range Date/Time URINE CULTURE [[id number]] Collected: 02/02/241702 Specimen: Urine Updated: 02/02/242204 BODY FLUID CULTURE:INCLUDES GRAM STAIN [[id number]] Collected: 02/02/241950 Specimen: Peritoneal Fluid from Peritoneum [...] Constipation # Insomnia # GERD - Continue SPECIALIST FIELD ENGINEER cetirizine, citalopram, gabapentin, levothyroxine, pantoprazole, PEG/senna, trazodone [...] Female at 02/04/2024 6:40 AM Charge Capture Die Cutting Machine Operator * Macy Paul MD - 02/04/2024 7:31 AM CDT GREEN SURGERY TRAUMA PROGRESS NOTE Cathy Raymond : 1965 Sex: female ASSESSMENT/PLAN: Cathy Raymond is a 58 year old female with PMH decompensated cirrhosis 2/2 alcohol c/b ascites, polyneuropathy with neurogenic bowel/bladder, DM type 2, MAX, gastric bypass 2002 with history of marginal ulcer, osteoporosis who was admitted on 02/02/2024 after fall from standing height. Found to have left femur fracture - orthopedics following. In the emergency room, she reported abdominal distention that she did not feel was worse than before. No nausea, vomiting, fever or chills. Surgery consulted for a possible sigmoid volvulus based on last CT scan. Given the patient's comorbidities including cirrhosis, she is a poor surgical candidate. Serial abdominal exams were started and have remained benign. GI was consulted for possible endoscopic decompression, however her CT findings were subsequently found to be similar to prior imaging from 2017; endoscopic decompression was not indicatedsince the colonic distention was determined to be chronic and stable. The patient is now having regular bowel movements and remains clinically stable without pain or any new GI symptoms. Given the chronic nature of her condition, no surgical intervention is indicated at this time. We recommend continuing [id number] discussions with her primary team and palliative care, however, as she remains high risk for future surgeries given her medical co-morbidities. Surgery will sign-off at this time; please page the [place] surgery team pager via [email or web address] with any future questions or concerns. PHYSICAL EXAM: Vital Signs: Temp Av.3 ??C (97.4 ??F) Min: 36.1 ??C (96.9 ??F) Max: 36.8 ??C (98.3 ??F) Pulse Av.7 Min: 69 Max: 93 Resp Av Min: 16 Max: 18 BP Min: 93/65 Max: 103/66 SpO2 Av.3 % Min: 90 % Max: 100 % LABS: BMP Lab Results Component Value Date/Time NA 133 (L) 02/03/2024 0803 K 3.4 (L) 02/03/2024 0803 CHLORIDE 100 02/03/2024 0803 CO2 25 02/03/2024 0803 GLU 95 02/03/2024 0803 UN 10 02/03/2024 0803 CR 0.70 02/03/2024 0803 CA 7.5 (L) 02/03/2024 08 CBC Lab Results Component Value Date/Time WBC 5.74 02/03/2024 0803 RBC 3.08 (L) 02/03/2024 0803 HGB 9.4 (L) 02/03/2024 0803 HCT 28.1 (L) 02/03/2024 0803 PLT 155 02/03/2024 0803 Hepatic Lab Results Component Value Date/Time ALBUMIN 2.2 (L) 02/03/2024 0803 ALP 98 02/03/2024 0803 ALT 16 02/03/2024 0803 AST 36 02/03/2024 0803 BILIDIR 0.5 (H) 02/03/2024 0803 TBILI 0.9 02/03/2024 0803 TPRO 5.5 (L) 02/03/2024 0803 Coagulation Lab Results Component Value Date/Time PT 19.8 (H) 02/03/2024 0803 INR 1.8 (H) 02/03/2024 0803 APTT 33.0 02/02/2024 1600 RADIOLOGY: CT CAP - 02/02/24 IMPRESSION: 1. The sigmoid colon is significantly [...] articular surface, suggestive of mild avascular necrosis Macy Paul MD, 02/04/2024 7:31 AM General Surgery Resident PGY1, Green Surgery Service Surgery Discharge Milestones (Inpatient Primary Team only): Associated attestation - Moises Montana MD - 02/09/2024 3:39 PM CDT FACULTY NOTE I saw and evaluated the patient on the date of the teletypewriter installer's note. I discussed with the teletypewriter installer of the note and agree with their findings and plan documented in the teletypewriter installer's note from above. Any revisions by me are documented. Moises Montana MD, 02/09/2024 3:39 PM * Homa Zarate MD - 02/04/2024 4:44 [...] Component Value Ref Range Date/Time URINE CULTURE [[id number]] Collected: 02/02/241702 Specimen: Urine Updated: 02/02/242204 BODY FLUID CULTURE:INCLUDES GRAM STAIN [[id number]] Collected: 02/02/241950 Specimen: Peritoneal Fluid from Peritoneum [...] new results of positive blood cx from [place] as well as one from [facility]. They arereportedly two different classes of bacteria and she has been on IV ceftriaxone since admisison, renu if relevant or true positives. Given tenuous [...] from room. Order DC per protocol. * Carter Maurer APRN, HAND BRAILLE TRANSCRIBER - 02/03/2024 12:20 PM CDT SURGERY PROGRESS NOTE--HUMAN RESOURCES TALENT MANAGER Cathy Raymond : 1965 Sex: female SIGNIFICANT EVENTS IN THE PAST 24 HRS: No acute events overnight. Hemodynamically stable, afebrile. SUBJECTIVE: Hungry this morning- will like to eat. Denies chest pain, difficulty breathing, N/V, or abdominal pain. A complete 10-point ROS was done and all systems negative except for what is documented in the HPI. OBJECTIVE: BP 109/58 Pulse 75 Temp 36.6 ??C (97.9 ??F) (Oral) Resp 18 Ht 1.727 m (5' 8) Wt 98.4 kg (217 lb) SpO2 100% BMI 32.99 kg/m?? Body mass index is 32.99 kg/m??. Intake/Output Summary (Last 24 hours) at 02/03/2024 1221 Last data filed at 02/02/2024 2116 Gross per 24 hour Intake -- Output 300 ml Net -300 ml Physical Examination: General: Patient laying in bed awake, not in acute distress. HEENT: Normocephalic, no ocular or otic drainage, no rhinorrhea CV: Rate as noted, regular rhythm, no murmur or rubs., S1/S2 present on auscultation. No PeripheralEdema. Pulm: Lung sounds present bilaterally, no wheezes or rales on auscultation. Unlabored Respirations.On Room Air. Abd: Abdomen soft, non-tender, distended (protuberant). BS x 4 - active Msk: R femur in traction. Skin: Warm, dry, intact. Neuro: Alert and oriented. No gross focal deficits Labs / Imaging: BMP Lab Results Component Value Date/Time NA 133 (L) 02/03/2024 0803 K 3.4 (L) 02/03/2024 0803 CHLORIDE 100 02/03/2024 0803 CO2 25 02/03/2024 0803 GLU 95 02/03/2024 0803 UN 10 02/03/2024 0803 CR 0.70 02/03/2024 0803 CA 7.5 (L) 02/03/2024 0803 CBC Lab Results Component Value Date/Time WBC 5.74 02/03/2024 0803 RBC 3.08 (L) 02/03/2024 0803 HGB 9.4 (L) 02/03/2024 0803 HCT 28.1 (L) 02/03/2024 0803 PLT 155 02/03/2024 0803 ASSESSMENT: Cathy Raymond is a 58 year old female with PMH decompensated cirrhosis 2/2 alcohol c/b ascites, polyneuropathy with neurogenic bowel/bladder, DM type 2, MAX, gastric bypass 2002 with history of marginal ulcer, osteoporosis who was admitted on 02/02/2024 after fall from standing height. Found to have left femur fracture- orthopedics following. In the emergency room, she reported abdominal distention that she did not feel was worse than before. No nausea or vomiting, fever or chills. Surgery consulted for a possible sigmoid volvulus based on last CT scan. Given the patients comorbidities including cirrhosis, she is a poor surgical candidate. Would recommend GI consultation first for possibleendoscopic decompression. Surgery service will continue following for serial abdominal exams. PLAN: GI consult for possible endoscopic decompression Green surgery will follow for serial abdominal exams, no surgical interventions at this time Neuro/Pain Control: Per primary team CV: Monitor blood pressure and pulse and intervene as needed Pulm: Encourage incentive spirometer. Pulse oximetry per unit protocol May utilize oxygen supplemental oxygen as needed to keep saturation greater than 90%. FEN/GI: Diet: NPO ID: Not indicated Skin/Wounds: No concerns DVT prophylaxis: SCDs; hold chemical prophylaxis for possible OR with orthopedic surgery Weight Bearing: NWB RLE Activity: Bedrest PT/OT: Appreciate Recs Disposition: TBD -Per primary team Carter Maurer APRN, RALPH, 02/03/2024 12:21 PM [facility] Department of Surgery Pager: via telemediq I have spent 30 minutes with this patient today in which greater than 50% of this time was spent incounseling/coordination of care regarding in patient care, review of imaging/labs, chart review andconsultant recommendations. Dictation Disclaimer: Some notes are completed with voice-recognition dictation software. Errors are generally corrected in real time. Please contact me via [facility] staff message if you note any errors requiring clarification. Associated attestation - Moises Montana MD - 02/09/2024 3:39 PM CDT FACULTY NOTE I saw and evaluated the patient on the date of the teletypewriter installer's note. I discussed with the teletypewriter installer of the note and agree with their findings and plan documented in the teletypewriter installer's note from above. Any revisions by me are documented. Moises Montana MD, 02/09/2024 3:39 PM * Sara Hdez RN - 02/03/2024 12:09 PM CDTSummary: Discharge planning Care Coordination Assessment Patient Name: Cathy Raymond Date: 02/03/2024 Expected DC Date: 02/06/2024 Social Information Knurling Machine Operator Used: None needed Decision Maker at Admission: Self Living Situation: Home Patient Identified Support System: Services Receiving: MEASUREMENT SPECIALIST / Skilled Services ([facility] home care for OT, PT, RN) Complex Medical Needs: None Transportation Used for Discharge: stretcher Safety Concerns: None Behavioral Health Concerns: None Patient Family Goals Patient's Discharge Goal: agreeable to consider TCU in [place] Family's Discharge Goal: n/a Plan/Interventions Discharge Plan: SNF Was Patient Choice Provided?: Yes Who was Choice Provided to?: Patient Patient Information Verification Verified demographic information, including SSN, Next of Kin, and Guardianship: Yes Verified PCP: Yes If post-acute placement is needed, have vaccination status needs been addressed?: Not applicable Risks for Readmission: None Summary of pertinent information: Patient admitted in transfer from [facility] with concern for left femur fracture from a fall and sigmoid volvulus. She continues to await medical clearancefor surgery. Had patient sign FRED to get imaging pushed from both [facility] and [facility]. Sent FRED to both places, anticipate that imaging should be available soon. Anticipate that she will require TCU placement. She prefers [place] and has been at facilities there previously. Currently open to home care through [facility]. Will continue to follow. Sara Hdez RN, [...] Constipation # Insomnia # GERD - Continue SPECIALIST FIELD ENGINEER cetirizine, citalopram, gabapentin, levothyroxine, pantoprazole, PEG/senna, trazodone - HOLD oxybutynin - Check Hb A1c Subjective/Events of Past 24 Hours: Hospital Day: 1 Reports fine No nausea or vomiting No abdominal pain Objective: Physical Exam GEN: NAD, laying in bed RES: clear lungs, on wheezing, rales or rhonchi CV: r/r/r, no murmurs, rubs or gallops ABD: distended Labs reviewed Charge Capture Die Cutting Machine Operator * Giselle Johansen MD - 02/03/2024 4:42 [...] Component Value Ref Range Date/Time URINE CULTURE [[id number]] Collected: 02/02/24 1703 Specimen: Urine Updated: 02/02/242204 BODY FLUID CULTURE:INCLUDES GRAM STAIN [[id number]] Collected: 02/02/241950 Specimen: Peritoneal Fluid from Peritoneum [...] possible sigmoid volvulus - Will hold diuretics yulia-operatively # Hypothyroidism on levothyroxine # Chronic neuropathic pain on gabapentin # Diabetes mellitus type 2, control uncertain # Obstructive sleep apnea # Obesity with BMI 32 # Vitamin B12 deficiency # CIDP # Neurogenic bowel/bladder # Seasonal allergies # Major depression # Constipation # Insomnia # GERD - Continue SPECIALIST FIELD ENGINEER cetirizine, citalopram, gabapentin, levothyroxine, pantoprazole, PEG/senna, trazodone [...] in place under the right knee : cano catheter in place draining clear yellow urine [...] (A) NEGATIVE Ketones TRACE (A) NEGATIVE Specific [place] 1.024 1.003 - 1.030 Blood Ur LARGE (A) Neg-Trace PH Urine 6.0 5.0 - 7.0 Protein Ur 30 (A) Neg-Trace Urobilinogen >=8 (A) NORMAL EU/dL Nitrite Ur NEGATIVE NEGATIVE Leuk Est SMALL (A) Neg-Trace WBC Ur 6-10 (A) 0 - 5 perHPF RBC Ur >20 (A) 0 - 3 perHPF SQ EPITH 0-5 0 - 5 perHPF Bacteria UA PRESENT Urinalysis Performed at: [facility] BODY FLUID CELL COUNT/DIFF Result Value Ref [...] MISCELLANEOUS BODY FLUID Result Value Ref Range [facility] Result 1.3 Units BF g/dL Narrative fluid: Peritoneal Test: TP documented in this encounter Procedure Notes * Patricia Dumont RN - 02/27/2024 11:40 AM CDTAssociated Order(s): PICC Line Images from the original note were not included. PICC Line Date/Time: 02/27/2024 11:40 AM Performed by: Patricia Dumont RN Authorized by: Nino Ramírez MD Sarles Protocol: Verbal consent obtained?: Yes Written consent obtained?: Yes Risks and benefits: Risks, benefits and alternatives were discussed Consent given by: Patient Patient states understanding of procedure being performed: Yes Patient's understanding of procedure matches consent: Yes Procedure consent matches procedure scheduled: Yes Relevant documents present and verified: Yes Test results available and properly labeled: Yes Site marked: Yes Imaging studies available: Yes Required items: Required blood products, implants, devices and special equipment available Insertion Checklist: Checklist completed: Yes Line placement observer: Stacy Laughlin RN Does line need to be changed within 48 hours of insertion: No Indications: Indications: TPN Anesthesia: Anesthesia: See MAR for details Local anesthetic: Lidocaine 1% without epinephrine Anesthetic total (ml): 1 Patient sedated?: No Procedure details: Preparation: Skin prepped with ChloraPrep and skin prepped with 2% chlorhexidine Skin prep agent dried: Skin prep agent completely dried prior to procedure Sterile barriers: All five maximal sterile barriers used - gloves, gown, cap, mask, and large sterile sheet Hand hygiene: Hand hygiene performed prior to central venous catheter insertion Site selection rationale: Best vein for PICC placement Patient position: Flat Catheter type: Double lumen Catheter size: 5 Fr (43cm total length, 2 cm out secured with [id number]; AC to IS: 5 cm; Circumference 10 cm above AC: 24 cm) Catheter bondactor machine operator: Bard Lot Number: [id number] Pre-procedure: landmarks identified Ultrasound guidance: Yes Number of attempts: 1 Successful placement: Yes Post-procedure: Securement: Securement device Dressing: Transparent adhesive dressing Antimicrobial disc: Protective Chlorhexidine gluconate disc placed Assessment: Blood return through all parts and placement verified by x-ray Image intensifier tip position: verified by chest x-ray. CXR read by: chest x-ray order in place. Complications: none. Patient tolerance: Patient tolerated the procedure well with no immediate complications Patricia Dumont RN, 02/27/2024 11:40 AM XR PICC LINE PLACEMENT CHECK RIGHT Status: Final result Exam Information Status Exam Begun Exam Ended Final [99] 02/27/2024 1:07 PM 02/27/2024 1:15 PM Reading Physician(s) Reading Physician Read Date Lukas Nava DO February 27, 2024 Study Result Indication: New PICC Comparison: none Findings: A new PICC enters from the right arm and its tip projects over the superior vena cava. IMPRESSION Impression: Right arm PICC projects in good position. Reading Radiologist: Lukas Nava Pt, RN Stacy notified of chest x-ray result and will update MD and request MD order for an okay to use PICC. Patricia Dumont RN, 02/27/2024 2:00 PM * Coco Buckley PA-C - 02/19/2024 2:55 PM CDTAssociated Order(s): Paracentesis Paracentesis Date/Time: 02/19/2024 2:55 PM Performed by: [...] to verify the correct patient, procedure, equipment, technical support specialist and site/side marked as required. [...] archived. A total of 7.3 liters of straw- colored asciticfluid was aspirated and discarded. The catheter was then removed. Patient tolerated the procedure without any immediate complications. The patient left AMA after the procedure. Per protocol, the patient received 25 grams of albumin during and after the procedure.Complications: None. Impression: Ultrasound-guided paracentesis as above. Coco Buckley PA-C, 02/19/2024 2:55 PM * Milan Duque PA-C - 02/16/2024 3:19 PM CDTAssociated Order(s): Paracentesis Paracentesis Date/Time: 02/16/2024 3:19 PM Performed by: Milan Duque PA-C Authorized by: Milan Duque PA-C Consent: Verbal consent obtained. Written consent [...] to verify the correct patient, procedure, equipment, technical support specialist and site/side marked as required. [...] into the fluid. An image was archived. Atotal of 6 liters of cloudy-colored ascitic fluid was removed; 1L was sent for culture and the restwas discarded. The catheter was then removed.Per protocol, the patient received 31.25 grams of albumin during and after the procedure.Complications: None. Impression: Ultrasound- guided paracentesis as above. Milan Duque PA-C, 02/16/2024 3:19 PM * Coco Buckley PA-C - 02/08/2024 11:14 [...] to verify the correct patient, procedure, equipment, technical support specialist and site/side marked as required. [...] and cytology examination : No Patient to [facility] for post-procedure monitoring. Patient education sheets given regarding post-care. * Humphrey Rose MD - 02/02/2024 10:03 PM CDTAssociated Order(s): Paracentesis Paracentesis Performed by: Cooper Loaiza MD Authorized by: Humphrey Rose MD Consent: Consent obtained: Verbal Consent given by: Patient Risks discussed: Bleeding, bowel perforation and infection Alternatives discussed: No treatment Sarles protocol: Patient identity confirmed: Verbally with patient [...] procedure. Humphrey Rose MD, 02/02/2024 10:12 PM * Denia Juan MD - 02/02/2024 8:44 PM CDTAssociated Order(s): Sedation Sedation Performed by: Denia Juan MD Authorized by: Barbara Henry MD Consent: Consent obtained: Verbal Consent given by: Patient Risks discussed: Prolonged hypoxia resulting in organ damage, respiratory compromise necessitating ventilatory assistance and intubation, vomiting and nausea Alternatives discussed: Analgesia without sedation, anxiolysis and regional anesthesia Sarles protocol: Procedure explained and questions answered to patient or proxy's satisfaction: yes Imaging studies available: yes Immediately prior to procedure a time out was called: yes Patient identity confirmation method: Verbally with patient Indications: Sedation purpose: Fracture reduction Procedure necessitating sedation performed by: Different physician Intended level of sedation: Moderate (conscious sedation) Pre-sedation assessment: Time since last food or drink: Yesterday NPO status caution: urgency dictates proceeding with non-ideal NPO status ASA classification: class 4 - patient with severe systemic disease that is a constant threat to life Neck mobility: normal Mouth openin or more finger widths Pre-sedation assessments completed and reviewed: airway patency, cardiovascular function, hydrationstatus, mental status, nausea/vomiting, pain level, respiratory function and temperature History of difficult intubation: no Pre-sedation assessment completed: 02/04/2024 8:15 PM Immediate pre-procedure details: Reassessment: Immediately prior to administration of medications, the patient was re-assessed for adequacy to receive sedatives Procedure details (see MAR for exact dosages): Sedation start time: 02/08/2024 8:44 PM Preoxygenation: Nonrebreather mask Sedation: Propofol Intra-procedure monitoring: Blood pressure monitoring, continuous capnometry, frequent LOC assessments, frequent vital sign checks, continuous pulse oximetry and radiation monitor Intra-procedure events: respiratory depression Intra-procedure management: Airway repositioning Sedation end time: 02/04/2024 9:00 PM Post-procedure details: Attendance: Constant attendance by certified staff until patient recovered Recovery: Patient returned to pre-procedure baseline Post-sedation assessments completed and reviewed: airway patency, cardiovascular function, hydration status, mental status, nausea/vomiting, pain level and respiratory function Patient is stable for discharge or admission: yes Patient tolerance: Tolerated well, no immediate complications Denia Juan MD, 02/04/2024 1:17 PM Associated attestation - Barbara Henry MD - 02/08/2024 7:48 PM CDT I was present for the entire procedure. Barbara Henry MD, 02/08/2024 7:48 PM documented in this encounter Consult Notes * Ramya Hobbs MD - 02/20/2024 6:27 PM CDT [facility] NEW PATIENT CONSULT Cathy Raymond : 1965 Sex: female This patient is being seen in consultation at the request of Dr Autumn Jerome for evaluation of abdominal distention. Assessment and Recommendations Cathy Raymond is a 58 y.o. female with decompensated cirrhosis with ascites, neuropathy with neurogenic bowel and bladder, alcohol use d/o, hypothyroidism, T2DM, MAX, gastric bypass 2002 with history of marginal ulcer, osteoporosis who was admitted on 02/02/2024 after fall from standing height w/left femur fx s/p IMN w/ ortho 02/04. On admission there was concern for sigmoid volvulus for which GI and surgery were consulted however it was felt that her imaging was similar to prior representing a chronic sigmoid dilation. Patient is a poor surgical candidate given her medical comorbidities anddue to the chronic nature of her condition no surgical intervention was indicated. 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 She underwent colonoscopy on 02/10 and flex sigmoidoscopy 02/14 with improvement in distention/dilation. Today, pt with increased distention and bilateral flank pain. Abdominal XR obtained showing significant colonic dilation compared to most recent XR. CT obtained which showed dilation of sigmoid colonup to 13.3cm, similar in appearance to CT from 02/10. No evidence of obstruction, volvulus, or perforation. This is most consistent with continued colonic pseudoobstruction. - No indication for emergent surgical intervention at this time. - Will defer medical management of colonic pseudoobstruction to medicine team and GI - Agree with placement of rectal tube - Surgery team will follow with serial abdominal exams overnight - Please page the purple surgery team pager with any questions or concerns Ramya Hobbs MD, 02/20/2024 6:27 PM General Surgery, PGY-2 Pager: [phone] or [email or web address] me Chief Complaint: Abdominal pain/distention History of Present Illness/Injury: Cathy Raymond is a 58 y.o. female with history described above. Pt with increased bilateral flank pain and distention today. Last large BM was 2 days ago but had a very small BM this morning. She last passed flatus sometime this morning. Denies any other symptoms. Hospital Problem List Active Problems: Other fracture of right femur, initial encounter for closed fracture (CMS) Resolved Problems: * No resolved hospital problems. * Medical History decompensated cirrhosis with ascites, neuropathy with neurogenic bowel and bladder, alcohol use d/o, hypothyroidism, T2DM, MAX, osteoporosis Surgical History Past Surgical History: Procedure Laterality Date GI COLON DIAGNOSTIC N/A 02/11/2024 Procedure: GI COLON DIAGNOSTIC; Laterality: N/A; Surgeon: Service, Gi; Service: Gastroenterology GI FLEX SIG N/A 02/15/2024 Procedure: GI FLEX SIG; Laterality: N/A; Surgeon: Ugo Young MD; Service: Gastroenterology IM KRYSTLE FEMUR Right 02/05/2024 Procedure: IM KRYSTLE FEMUR; Laterality: Right; Surgeon: Dayo Henning MD; Service: Orthopedics Gina-en-Y gastric bypass Social History Occupational History Not on file Tobacco Use Smoking status: Not on file Smokeless tobacco: Not on file Substance and Sexual Activity Alcohol use: Not on file Drug use: Not on file Sexual activity: Not on file Social History Narrative Tiny is to her , Jai. She has one daughter and two grandchildren. She is Hoahaoism. When feeling well she likes to have friends over, do word finds and play a slot game. Family History No family history on file. Medications Medications Prior to Admission Medication Sig cetirizine (ZYRTEC) 10 mg oral tablet Take 1 tablet (10 mg) by mouth daily. oxyCODONE-acetaminophen (PERCOCET) 5-325 mg oral TABS Take 1 tablet by mouth every 8 hours as needed. potassium chloride (K-DINA) 20 mEq oral packet Take 1 packet (20 mEq) by mouth 3 times daily. acyclovir (ZOVIRAX) 400 mg oral tablet Take 1 tablet (400 mg) by mouth 3 times daily.Take for 5 days with cold sore outbreak alendronate (FOSAMAX) 70 mg oral TABS Take 1 tablet (70 mg) by mouth every week. carboxymethylcellulose sod PF 0.5 % ophthalmic solution Place 1-2 drops into BOTH eyes every 2 hours as needed for Dry Eyes. citalopram (CELEXA) 20 mg oral tablet Take 1 tablet (20 mg) by mouth every morning. cyanocobalamin (NERVIDOX S) 1000 mcg/mL Injection solution Inject 1 mL (1,000 mcg) into a muscle every 4 weeks. GABApentin (NEURONTIN) 600 mg oral TABS tablet Take 2 tablets (1,200 mg) by mouth 3 times daily. hydrocortisone 2.5% externally ointment Apply to skin twice daily. levothyroxine (SYNTHROID) 50 mcg oral tablet Take 1 tablet (50 mcg) by mouth daily before morning meal. oxybutynin (DITROPAN XL) 10 mg oral tablet 24 HR Take 1 tablet (10 mg) by mouth daily. pantoprazole (PROTONIX) 40 mg oral tablet Take 1 tablet (40 mg) by mouth daily before morning meal. pramipexole (MIRAPEX) 0.5 mg oral TABS Take 1 tablet by mouth every morning and 2 tablet by mouth at bedtime spironolactone (ALDACTONE) 50 mg oral tablet Take 1 tablet (50 mg) by mouth every morning. thiamine (VITAMIN B1) 100 mg oral TABS Take 100 mg by mouth daily. traZODone (DESYREL) 100 mg oral tablet Take 1 tablet (100 mg) by mouth at bedtime. triamcinolone acetonide (KENALOG) 0.1% externally cream Apply to skin 3 times daily. polyethylene glycol 3350 (MIRALAX;GLYCOLAX) 17 g oral powder Take 1 Tbsp (17 g) by mouth daily. furosemide (LASIX) 20 mg oral TABS Take 2 tablets (40 mg) by mouth every morning and 1 tablet (20 mg) by mouth at midday. bisacodyl (DULCOLAX) 10 mg rectal suppository 1 suppository (10 mg) by Rectal route daily as neededfor Constipation. Allergies Allergies Allergen Reactions Aspirin Unknown Bleeding Hydrocodone Tachycardia Heart races. Tolerates oxycodone ok. Adhesive Rash Reaction to steri-strips Adhesive Tape Rash Amoxicillin-Pot Clavulanate Abdominal Pain Capsaicin Erythema Clavulanic Acid Abdominal Pain Ibuprofen Unknown bleeding Naproxen Other (see comments) Sulfamethoxazole-Trimethoprim Itching/Pruritus and Rash Tolmetin Unknown Review of Systems 10-point review of systems performed and negative unless listed in HPI. PHYSICAL EXAMINATION: BP (!) 84/47 (Cuff Location: Left Arm) Pulse 70 Temp 37 ??C (98.6 ??F) (Oral) Resp 17 Ht 1.727 m (5' 8) Wt 98.4 kg (217 lb) SpO2 96% BMI 32.99 kg/m?? Neuro: A&Ox3 General: appears uncomfortable, mild distress though non-toxic appearing CV: Warm, well-perfused extremities RESP: Unlabored respiratory effort GI: soft, significant distention, mildly tender to bilateral flanks. Tympanic to percussion in mid upper and lower abdomen, dull to percussion at lateral abdomen/flanks. MSK: No gross deformities appreciated Skin: Warm, dry. No rashes REVIEW OF LABORATORY, PATHOLOGY, AND RADIOLOGY DATA: BMP Lab Results Component Value Date/Time NA 129 (L) 02/20/2024 0744 K 4.1 02/20/2024 0744 CHLORIDE 96 02/20/2024 0744 CO2 27 02/20/2024 07 GLU 83 02/20/2024 07 UN 15 02/20/2024 07 CR 0.61 02/20/2024 07 CA 8.0 (L) 02/20/2024 07 CBC Lab Results Component Value Date/Time WBC 3.10 (L) 02/20/2024743 RBC 2.63 (L) 02/20/2024 0744 HGB 8.7 (L) 02/20/2024 2037 HCT 25.7 (L) 02/20/2024 0744 PLT 116 (L) 02/20/2024 0744 Coagulation Lab Results Component Value Date/Time PT 16.0 (H) 02/16/2024 0812 INR 1.4 (H) 02/16/2024 0812 APTT 33.0 02/02/2024 1600 IMAGING: CT ABDOMEN/PELVIS W/IV CON (02/20/2024 19:05) 1. 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 No evidence of obstruction, volvulus, or perforation.Findings suggest [place] syndrome. 2. Postsurgical changes of Gina-en-Y gastric bypass without obvious complication. 3. Moderate volume peritoneal and pelvic ascites, bilateral pleural effusions, and severe soft tissue anasarca. 4. Cirrhotic appearance of the liver, with splenomegaly and portosystemic collaterals. 5. Cholelithiasis without evidence of acute cholecystitis. XR ABDOMEN 1 VIEW* (02/20/2024 16:42) 1. Markedly increased sigmoid distention, repeat CT scan and GI consultation recommended. 2. Worsening diffuse large bowel distention, suggestive of distal sigmoid obstruction. MEDICAL DECISION MAKING: This case was discussed with physicians from the primary team I have reviewed the patient's allergies, family history, medical history, social history and surgical history as reported in EPIC and the available outside medical records. This case was discussed with: Radiologist and GI This case involved an established problem that worsened I have visualized and independently reviewed: Laboratory results , Radiology images, and Outside Record(s) Associated attestation - Josiah Silveira MD - 02/21/2024 9:38 PM CDT FACULTY NOTE I saw and evaluated the patient on the date of the resident's note. I discussed with the resident and agree with the resident???s findings and plan documented in the resident???s note from above. Anyrevisions by me are documented. Josiah Silveira MD, 02/21/2024 9:38 PM * Kianna Rice RD - 02/19/2024 2:54 PM CDTAssociated Order(s): CONSULT TO NUTRITION Nutrition Assessment Reason for Assessing Patient: Physician orders for: Diet instruction low sodium diet. Also noted tohave pressure injury to sacrum Orders Placed This Encounter Procedures Diet: Regular; No Added Salt (3-4 Gm Sodium) Nutrition Support: None Malnutrition Diagnosis: Unable to determine today Assessment: Pt currently off floor for paracentesis and noted possible d/c tomorrow to a facility. She has been eating 75% of meals; expect meeting needs. Goal(s) Consume 75% of meals by next nutrition follow-up. Consume at least 1 protein sources at each meal by next nutrition follow-up. Be able to list high sodium foods to avoid and low sodium foods to choose Nutrition Intervention(s) Left low sodium handout in room for patient to review - notified RN that the handout would be therefor patient to review Continue MVI daily for wound healing Will add oral supplement once daily to help with wound healing RD will follow up for more education with patient next week if she is still here Recommendations to Physician As above. Additional Nutrition Factors: Admitted with femur fx and found to have severe chronic bowel distention ( resolved) and ascites from decompensated cirrhosis Skin: Stage 2 PI to sacrum, right foot full thickness wound with podiatry following Pertinent Medical Tests and Procedures: Paracentesis today GI: Last BM 02/18 IV Fluids: None Pertinent Medications: MAR reviewed - includes MVI, thiamine and bowel meds Anthropometrics Ht Readings from Last 1 Encounters: 02/02/24 1.727 m (5' 8) Admission weight: 98.8 kg (217 lb 13 oz) Current weight: Weight: 98.4 kg (217 lb) (02/02/24 2339) BMI: Body mass index is 32.99 kg/m??. 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 ) * Cristela Gleason CWOCN - 02/18/2024 1:59 PM CDT Images from the original note were not included. Wound Ostomy Continence Nurse Consult Cathy Manning Segundo - : 1965 - MR# [id number] - Date: 02/18/2024 Reason For Consultation: The patient is being seen in for follow-up evaluation of skin to sacrum, POA breakdown with concern for pressure vs moisture - upon assessment today skin continues to improve, continues to be blanchable, highly suspicious with blanching and irregular borders for skin injuryto be more related to moisture and friction breakdown. Patient continues to be at risk for pressure, WOC recommends to continue with specialty bed while it continues to be appropriate per bed algorithm, and to continue with skin injury bundle. Barrier cream continues to be appropriate at this time. 02/18/24 1404 Wound 02/03/24 Ulceration Sacrum Date First Assessed/Time First Assessed: 02/03/24 1200 Present on Original Admission: Yes Primary Wound Type: Ulceration Location: Sacrum Wound Description (Comments): pressure ulcer. Site Assessment Blanchable erythema;Red;Scabbed (small yellow plaque-like scabbing noted, suspicious for resolving fungal irritation.) Margins Poorly defined/Irregular Drainage Amount None Cleansed W/ Barrier Wipe Dressing Barrier cream Dressing Changed New Non-staged Wound Description Partial thickness Consult Recommendations: Not applicable [facility] Nursing follow up: Appreciate the opportunity to consult on this patient, Wound Ostomy Continence Services will sign off at this time. Please place additional 'Wound Consult' if wanting further assessment for this patient. Staff to continue to follow skin injury bundle. Escalate concerns to WOCN through additional consult or to the provider when barriers are identified. WOCN available Thursday through Thursday on Shut Down or [phone] Cristela Gleason CWOCN, 02/18/2024 2:04 PM * Isidoro Guerrero CWON - 02/09/2024 2:42 PM CDT Images from the original note were not included. Wound Ostomy Continence Nurse Consult Cathy Raymond - : 1965 - MR# [id number] - Date: 02/09/2024 Reason For Consultation: The patient is being seen in consultation at the request of field artillery basic for evaluation of ulceration to gluteal cleft. Wound Description: Pressure vs. moisture 02/09/24 1400 Wound 02/03/24 Ulceration Sacrum Date First Assessed/Time First Assessed: 02/03/24 1200 Present on Original Admission: Yes Primary Wound Type: Ulceration Location: Sacrum Wound Description (Comments): pressure ulcer. Wound Image Site Assessment Epithelial tissue;Non-blanchable erythema Dressing Foam Dressing Changed New Non-staged Wound Description Partial thickness Consult Recommendations: Not applicable [facility] Nursing follow up: weekly Staff to continue to follow skin injury bundle. Escalate concerns to WOCN through additional consult or to the provider when barriers are identified. WOCN available Thursday through Thursday on Shut Down or [phone] Isidoro Guerrero CWON, 02/09/2024 2:43 PM * Ashley Park OTR/L - 02/07/2024 3:53 [...] seat;tub / shower chair;hand held shower head;grab bars;tariff publishing agent Prior Level of Function: ADLs/IADLs: Received assistance from family / friends;Received assistance from MEASUREMENT SPECIALIST for hours per day / days per [...] to a TCU near her home in [place] when medically stable. (See box at the [...] Eval: 29 minutes Therapist: LILY Landaverde/Bethanie Pager: [facility] Occupational Therapy Department * Rose Marie Early, [...] has FWW, 4WW, MWC, toilet seat riser, son lift at home) PM&R Recommended: DIAGNOSIS Patient [...] fracture now s/p IMN R femur on 5/[address] Henning. Her blood culture (10/06) was positive for gram positive rods on 02/03, in discussion with ID it was felt this was very likely a contaminant. Patient also with UTI, probably right foot infection, and chronic sigmoid distension. Medicine Primary Activity: up with assist Weightbearing restrictions: NWB RLE, ok to WB for transfers Antibiotics: Continue ancef per ID Diet: ADAT Cano: Remove POD1 DVT prophylaxis: Lovenox 40mg daily [...] -wheeled walker, Manual wheelchair, Toilet riser, and son lift Services at home: MEASUREMENT SPECIALIST services MWF, home PT / OT / [...] in near 90/90 hip/knee positioning (WFL for C seating). Transfers & Bed Mobility: Supine to [...] reportedly Alycia with stand pivot transfers to [facility] (GLF during tx resulted in femur fx), has 24/7 assist from , MEASUREMENT SPECIALIST services 3x/wk, and home PT / OT [...] viasara steady, up to chair as appropriate. SPECIALIST FIELD ENGINEER Appropriate: No (needs mobility progressed) Participated in goal setting and treatment planning: Patient Agrees with goals and treatment plan: Patient - Yes. Rose Marie Early, PT 02/06/2024 Pager: [facility] PT Department * Dominic Castorena MD - [...] set of blood cultures were taken at [facility] in which 2 of 2 bottles grew [...] the original note were not included. Data: WOC nurse met with patient to assess pouch [...] over the next few days. Please page personal investment adviser resident with questions. Patient was seen with personal investment adviser staff, Dr. Roth PROCEDURE: Risks and benefits [...] States that she follows up with a machine featheredger and reducer in [place] and has had extensive surgery of the [...] CWOCN - 02/04/2024 3:36 PM CDT DAP: [facility] nursing attempted to see patient [...] walking again. -Tiny would like her , Jia, to serve as her surrogate in the [...] to call with questions or concerns. Mindy Swan, DARIO, RALPH, 02/03/2024 3:00 PM Palliative Medicine Available [...] helps her at home along with a MEASUREMENT SPECIALIST. States that she broke her other femur [...] their hobbies, activities and interests, spirituality or anabaptism, personal experience with end of life, and personal hopes, worries. Thisbackground is essential in understanding what is most important and how that can change throughout the course of a serious illness. This summary is an attempt to highlight that background. Social History Social History Narrative Tiny is to her , Jai. She has one daughter and two grandchildren. She is Hoahaoism. When feeling well she likes to have [...] specifically on review of CT scans from [facility] dated 07/08/2022 and [place] dated111/21/2020, it appears patient has had a chronically dilated sigmoid colon, possibly dating back [id number]. Also has known chronic constipation and neuropathy [...] c/b ascites MELD 3.0 16 Established at [facility], last seen 12/15/2013. Etiology felt [...] cirrhosis. 09/20/2021 CT CAP with IV contrast ([place]): IMPRESSION: 1. Minimally more prominent left axillary [...] Amanda Elise PA-C, 02/03/2024 8:50 AM * Nestor Miranda MD - 02/02/2024 10:04 PM CDTAssociated Order(s): CONSULT TO SURGERY GENERAL SURGERY CONSULT, PGY-2 Cathy Manning Segundo : 1965 Sex: female Date of Service: 02/02/2024 Indication for consultation: concern for sigmoid volvulus Requesting physician: Dr. Austin IMPRESSION: 58 y.o. female with decompensated cirrhosis with ascites, neuropathy with neurogenic bowel and bladder, alcohol use d/o, hypothyroidism, T2DM, MAX consulting for possible sigmoid volvulus. Would recommend GI intervention first, poor surgical candidate given decompensated cirrhosis. No plans for operative intervention currently, reassuringly lactate is normal, will follow with serial abdominal exams. RECOMMENDATIONS AND PLAN: 1. Recommend GI consult for possible endoscopic decompression 2. Green surgery will follow for serial abdominal exams, no surgical interventions at this time 3. Rest of cares per primary team CHIEF COMPLAINT: leg pain HISTORY OF PRESENT ILLNESS: 58 y.o. female who presents with leg pain Patient notes she had a fall earlier today prompting her presentation to this ED. Was told she has a broken leg. Reports abdominal distention that does not appear to be worsening, no worsening abdominal pain. Unsure when her last bowel movement was given she wears a diaper, but notes ongoing passing of flatus. Denies nausea, vomiting, fevers, or chills. In the ED, found to have R femur fracture, UTI, and underwent a diagnostic and therapeutic paracentesis. Her CT was notable for an 11cm sigmoid colon, volvulus cannot be ruled out PAST MEDICAL HISTORY: No past medical history on file. PAST SURGICAL HISTORY: No past surgical history on file. PAST SOCIAL HISTORY: MEDICATIONS: Current Facility-Administered Medications Medication Route Frequency citalopram (CeleXA) tablet 20 mg Oral daily traZODone (DESYREL) tablet 100 mg Oral hs pramipexole (MIRAPEX) tablet 5 mg Oral bid bisacodyl (DULCOLAX) suppository 10 [...] NaCl 0.9% 100 mL IVPB Intravenous q24h ALLERGIES: Allergies Allergen Reactions Amoxicillin-Pot Clavulanate Unknown Naproxen Other (see comments) FAMILY HISTORY: No family history on file. REVIEW OF SYSTEMS: See HPI, ROS otherwise negative. PHYSICAL EXAMINATION: BP 100/68 (Cuff Location: Right Leg) Pulse 90 Temp 36.6 ??C (97.8 ??F) (Oral) Resp 18 Ht 1.727 m (5' 8) Wt 98.4 kg (217 lb) SpO2 99% BMI 32.99 kg/m?? General appearance: alert, oriented, no acute distress HEENT: Head is normocephalic and atraumatic. Moist mucus membranes, Eyes: Pupils are equal round, and reactive to light. Extraocular muscles are intact. Cardiovascular: Regular rate and rhythm, normal S1 and S2, no rub, gallops, or murmurs. Pulmonary: Regular respiratory effort GI: Abdomen is soft, protuberant, non-tender to palpation Musculoskeletal: R femur in traction Neurologic: no gross abnormalities Skin: Intact, warm REVIEW OF LABORATORY, PATHOLOGY, AND RADIOLOGY DATA: Lab results: Reviewed via [facility]. Radiology Results: Reviewed in Epic. Patient seen by and discussed with Surgery Chief Resident and Staff Physician. Nestor Miranda MD, 02/03/2024 3:47 AM Associated attestation - Moises Montana MD - 02/09/2024 3:34 PM CDT FACULTY NOTE I saw and evaluated the patient on the date of the teletypewriter installer's note. I discussed with the teletypewriter installer of the note and agree with their findings and plan documented in the teletypewriter installer's note from above. Any revisions by me are documented. Moises Montana MD, 02/09/2024 3:34 PM * Giselle Johansen MD - 02/02/2024 6:14 [...] acholic cirrhosis, R TKA around 2017 in [place], [place],L femur fx s/p surgical fixation ~ 2019 at [place], idiopathic progressive neuropathy, hypothyroidism,chronic neuropathic pain, DMII [...] - disability Lives with in house in [place], [place] ALLERGIES: Allergies Allergen Reactions Amoxicillin-Pot Clavulanate [...] Henning MD - 02/05/2024 4:06 PM CDT [facility] [id number] [facility] OPERATIVE REPORT PATIENT: Cathy Raymond : 1965 DATE OF PROCEDURE: 02/05/24 SURGEON: Dayo Henning MD - Primary BUSINESS OBJECTS DEVELOPER SURGEON: Serge Parker DO - Fellow Ian [...] Implant Name Type Inv. Item Serial No. Help Desk Operator Lot No. LRB No. Used Action FEMORAL NAIL RETROGRADE [id number] Krystle FEMORAL NAIL RETROGRADE [id number] [employer] [id number] Right 1 Implanted 5.0X60MM [id number] Screw/Mendon 5.0X60MM 2361-5060S [employer] [id number] Right 1 Implanted 5.0X70MM 2361-5070S Screw/[place] 5.0X70MM 2361-5070S [employer] [id number] Right 1 Implanted 5.0X75MM ADV 2361-5075S Screw/Mendon 5.0X75MM ADV 2361-5075S [employer] [id number] Right 1 Implanted FREEHAND DRILL [id number] Drill bit/kiara FREEHAND DRILL [id number] [employer] [id number] Right1 Implanted 5.0X42.5MM 2360-5042S Screw/[place] 5.0X42.5MM 2360-5042S [employer] [id number] Right 1 Implanted INDICATIONS: Cathy Raymond is a 58 y.o. female who presented to [facility] with right leg pain after a fall. [...] proximal thigh. This was performed using perfect upper sioux technique. A stab incision was made over [...] primary nurse, Catarino. * Ileana Howell APRN, HAND BRAILLE TRANSCRIBER - 02/02/2024 9:19 PM CDT Transfer of [...] T2DM, HTN who presents as transfer from [facility] for RIGHT midshaft femur fracture [...] Wt 98.8 kg (217 lb 13 oz) [id number] Upon assuming care, I reviewed the chart, [...] NEGATIVE Bili UA TRACE(!) Ketones TRACE(!) Specific [place] 1.024 Blood Ur LARGE(!) PH Urine 6.0 Protein Ur 30(!) Urobilinogen >=8(!) Nitrite Ur NEGATIVE Leuk Est SMALL(!) WBC Ur 6-10(!) RBC Ur >20(!) SQ EPITH 0-5 Bacteria UA PRESENT Urinalysis Performed at: [facility] Receiving CTX 2122 LFTs(!): Total Protein 5.8(!) [...] in real time. Please contact me via [facility] staff message if you note any errors requiring clarification. * Natacha Mcadams RN - 02/02/2024 9:16 PM CDT Traction set to 20 pounds. * Natacha Mcadams RN - 02/02/2024 9:00 PM CDT Xray at bedside * Natacha Mcadams RN - 02/02/2024 8:41 PM CDT Patient transported to [facility] for sedation for krystle placement and traction. * Enedina Austin MD - 02/02/2024 6:08 PM CDT Hard Tile Setter of the Day (MOD) Triage/Communication Note Sign out received from Cooper in [facility] (team center/clinic). Requested unit: G3 (choose from: any medicine floor, specific medicine floor with rationale, CaRe, RTU, MICU). Patient status: INPT. (Obs v. Inpt) Cardiac telemetry needed? (specify if remote telemetry OK). Summary of verbal sign out given by ED/clinic INSPECTOR PACKAGER: Cirrhosis, right femur fracture 58yo hx of cirrhosis, transferred from [facility] for a femur fracture after a fall at home. Has 2 total knee replacement. Has displaced mid-shaft right femur fracture -- ortho has been consulted. Got ancef for right foot wound. Has UTI - getting ceftriaxone ED to do paracentesis. Enedina Austin MD, 02/02/2024 6:13 PM Staff Physician, [facility] Medicine Note is for communication only, not billing * Cooper Loaiza MD - 02/02/2024 3:32 PM CDT Images from the original note were not included. ED Provider Note Cathy Raymond : 1965 Sex: female Patient Arrival Date and Time: 02/02/2024 3:17 PM HPI 58F w/ hx etoh cirrhosis, chronic lymphedema presents as transfer from h for mechanical fall after feeling legs become [...] w/ subsequent R femur fracture. Ortho consulted, cynthias yareli and ultimately placed in traction with procedural [...] Abs Basophil 0.01 unremarkable 1654 Lactate: 1.1 1655 ED US ABDOMINAL/GALLBLADDER Impression: No gallstones, negative sonographic tobin sign, ascites 1712 HS Troponin I: <3 1712 Reviewed outside records: had fall at home after losing balance, felt R knee/leg pain immediately, couldn't bear weight. Hx cirrhosis, chronic lymphedema. Blood cultures sent there. Got ancef dose for R foot wound they felt was purulent. 171 INR(!): 1.6 1728 UA, Total(!): Color YELLOW Appearance CLOUDY(!) Urine Glucose NEGATIVE Bili UA TRACE(!) Ketones TRACE(!) Specific [place] 1.024 Blood Ur LARGE(!) PH Urine 6.0 Protein Ur 30(!) Urobilinogen >=8(!) Nitrite Ur NEGATIVE Leuk Est SMALL(!) WBC Ur 6-10(!) RBC Ur >20(!) SQ EPITH 0-5 Bacteria UA PRESENT Urinalysis Performed at: [facility] Grossly concerning for infection; will treat with ceftriaxone 183 XR FEMUR RIGHT AP + LAT* IMPRESSION: Acute significantly displaced angulated periprosthetic fracture of the distal femur 183 XR KNEE RIGHT 2 VIEWS AP/LAT IMPRESSION: Acute significantly displaced periprosthetic fracture of the distal femur. 183 XR FOOT RIGHT 3 V AP/OBL/LAT* IMPRESSION: [...] 02/02/2024 3:17 PM CDT BIBA as a [facility] transfer. EMS was called around 0945 for a stumble and fall. HX of ETOH with cirrohsis and ascites. Right mid-shaft with Morphine and dilaudid in [place] ED. 4 mg morphine en route. Pain rating 3 or 4/10 2 g cefazolin en route 20 RFA * Maggie Tariq RN - 02/02/2024 1:44 PM CDT Report called from [facility]. Pt is non weight bearing and lives at home. Pt fell and found to have a right femur fracture. Pt has many wounds and ascites. Unable to place cano. Given morphine, dilaudid, 2g cef, and zofran. 20g right forearm. VSS. Leg placed in traction documented in this encounter Miscellaneous Notes * Nursing Assessment - Allie Alexandra RN - 02/29/2024 4:35 AM CDT Nursing Assessment Head to Toe Head to Toe Assessment Shift Summary [id number] Pt A&O. Makes needs known. Denies pain stated she feels with movements. Offered pt repositioning but declined. Stated, I want to stay with pillows on both sides and I will call when I need to bechanged. TPN running at 60ml/hr. Call light within reach. VSS on RA. Allie Alexandra RN, 02/29/2024 4:44 AM BP 91/55 (Cuff Location: Left Arm) Pulse 66 Temp 36.4 ??C (97.5 ??F) (Oral) Resp 16 Ht 1.727 m (5' 8) Wt 98.4 kg (217 lb) SpO2 97% BMI 32.99 kg/m?? Neurologic/Cognitive Within Defined Limits HEENT Assessment Within Defined Limits except for: Teeth Symptoms: Tooth/teeth loose Cardiac Within Defined Limits Respiratory Within defined limits Neurovascular Within Defined Limits Gastrointestinal Assessment Within Defined Limits except for: Additional GI Signs/Symptoms: fecal incontinence Comments: Rectal cano in place Stool (unmeasured): 1 (02/28/242243) Stool Amount: large (02/28/242243) Stool Color: brown (02/28/242243) Stool Consistency: loose (02/28/242243) Liquid Stool (mL): 700 mL (05/25/24 0543) Genitourinary Assessment Within Defined Limits except for: Voiding: Urinary catheter in place Musculoskeletal Assessment Within Defined Limits except for: Musculoskeletal Assessment: General Mobility: Moderately impaired Integumentary Within Defined Limits Patient Lines/Drains/Airways Status Active LDAs Name Placement date Placement time Site Days Peripheral IV 02/11/24 20 gauge;1 3/4 in length Anterior;Right Upper Arm 02/11/241999 -- 17 Fecal Management/Containment System 02/20/242011 -- 8 Rash 02/02/24 2347 groin 02/02/24 2347 -- 26 Wound 02/03/24 Pedal Anterior;Right 02/03/24 0636 Pedal 25 Wound 02/03/24 Ulceration Sacrum 02/03/24 1200 Sacrum 25 Wound 02/05/24 Incision Knee Anterior;Right 02/05/24 1331 Knee 23 Wound 02/05/24 Incision Leg Distal;Upper;Right 02/05/24 1443 Leg 23 Wound 02/26/24 Pressure Injury Perineum Distal 02/26/24 1300 Perineum 2 Urinary Catheter Urinary Retention (Post void volume consistently greater than 350 mL) 02/07/24 2350 -- 21 (PICC) Peripherally Inserted Central Catheter 5 Tajik 43 cm, 2 cm out Basilic 02/27/24 1137 -- 1 Psychosocial Within Defined Limits * Nursing Assessment - Marycruz Espinosa RN - 02/28/2024 6:16 PM CDT Nursing Assessment Head to Toe Head to Toe Assessment Shift Summary Shift 1530 - 2330 Alert and oriented x4, uses call light appropriately to make needs known. VSS on RA. Reported minimal pain on RLE which is well managed by prn pain meds BID. Rectal cano in place, connected to the canister by gravity, bypassing stools than it can collect in the canister, okay to remove per the provider, removed at 1900, large liquid stools x2.Cano in place draining yellow urine. TPN rate increased to goal rage 60 ml/hr at 1748, lipids started at HS x12 hrs. Pt tolerating clear liquid diet. Okay from the provider to at least get pt up on the chair, Offered but pt denies I just ate now, I will get up tomorrow. Turned and repositioned as pt allows. Will continue to follow POC. Marycruz Espinosa RN, 02/28/2024 11:27 PM Neurologic/Cognitive Within Defined Limits HEENT Assessment Within Defined Limits except for: Teeth Symptoms: Tooth/teeth loose Cardiac Within Defined Limits Respiratory Within defined limits Neurovascular Within Defined Limits Gastrointestinal Assessment Within Defined Limits except for: Additional GI Signs/Symptoms: fecal incontinence Comments: Rectal cnao in place Stool (unmeasured): 1 (02/28/24 1356) Stool Amount: large (02/28/24 1356) Stool Color: brown (02/28/24 1356) Stool Consistency: liquid;watery (02/28/24 1356) Liquid Stool (mL): 700 mL (02/27/24 0543) Genitourinary Assessment Within Defined Limits except for: Voiding: Urinary catheter in place Musculoskeletal Assessment Within Defined Limits except for: Musculoskeletal Assessment: General Mobility: Moderately impaired Integumentary Integumentary Patient Lines/Drains/Airways Status Active LDAs Name Placement date Placement time Site Days Peripheral IV 02/11/24 20 gauge;1 3/4 in length Anterior;Right Upper Arm 02/11/241999 -- 16 Fecal Management/Containment System 02/20/242011 -- 7 Rash 02/02/24 2347 groin 02/02/24 2347 -- 25 Wound 02/03/24 Pedal Anterior;Right 02/03/24 0636 Pedal 25 Wound 02/03/24 Ulceration Sacrum 02/03/24 1200 Sacrum 25 Wound 02/05/24 Incision Knee Anterior;Right 02/05/24 1331 Knee 23 Wound 02/05/24 Incision Leg Distal;Upper;Right 02/05/24 1443 Leg 23 Wound 02/26/24 Pressure Injury Perineum Distal 02/26/24 1300 Perineum 2 Urinary Catheter Urinary Retention (Post void volume consistently greater than 350 mL) 02/07/24 2350 -- 20 (PICC) Peripherally Inserted Central Catheter 5 Taj[place] 43 cm, 2 cm out Basilic 02/27/24 1137 -- 1 Psychosocial Within Defined Limits * Nursing Assessment - Stacy Laughlin RN - 02/28/2024 2:24 PM CDT Nursing Assessment Head to Toe Head to Toe Assessment Shift Summary Shift Summary Alert and oriented. Tearful this morning, feeling upset about her medical situation and would come to tears over small things such as not having the right drink. Severely distended abdomen. Denies nausea/vomiting/abd pain. PRN oxycodone given x1 for 7/10 RLE pain with good effect. Cano intact draining yellow urine. Turned and repositioned as pt allowed. Some redness under abd fold, nystatin powder applied. Redness around sacrum/buttocks as well as pressure wounds on posterior labia, barrier cream applied. Position of rectal catheter alternated to avoid further skin breakdown. No new stool incannister all day, at 1400 pt had a large liquid stool that completely bypassed the rectal catheter. Team notified. TPN running continuously, per pharmacist run at 30ml/hr and then advance to goal rate of 60ml/hr after 4 hours. Stacy Laughlin, RN, 02/28/2024 2:25 PM Neurologic/Cognitive Within Defined Limits HEENT Assessment Within Defined Limits except for: Teeth Symptoms: Tooth/teeth missing Cardiac Within Defined Limits Respiratory Within defined limits Neurovascular Assessment Within Defined Limits except for: Neurovascular RLE Sensation: Tenderness Edema Present: Yes Right Lower Extremity: 1+ Left Lower Extremity: 1+ Gastrointestinal Assessment Within Defined Limits except for: Abdominal appearance: Distended, rounded and taut Stool (unmeasured): 1 (02/28/24 1356) Stool Amount: large (02/28/24 1356) Stool Color: brown (02/28/24 1356) Stool Consistency: liquid;watery (02/28/24 1356) Liquid Stool (mL): 700 mL (02/27/24 0543) Genitourinary Assessment Within Defined Limits except for: Voiding: Urinary catheter in place Musculoskeletal Assessment Within Defined Limits except for: Musculoskeletal Assessment: General Mobility: Moderately impaired Integumentary Assessment Within Defined Limits except for: Skin Assessment Integrity - see Avatar LDA documentation Patient Lines/Drains/Airways Status Active LDAs Name Placement date Placement time Site Days Peripheral IV 02/11/24 20 gauge;1 3/4 in length Anterior;Right Upper Arm 02/11/241999 -- 16 Fecal Management/Containment System 02/20/24 2012 -- 7 Rash 02/02/24 2347 groin 02/02/24 2347 -- 25 Wound 02/03/24 Pedal Anterior;Right 02/03/24 0636 Pedal 25 Wound 02/03/24 Ulceration Sacrum 02/03/24 1200 Sacrum 25 Wound 02/05/24 Incision Knee Anterior;Right 02/05/24 1331 Knee 23 Wound 02/05/24 Incision Leg Distal;Upper;Right 02/05/24 1443 Leg 22 Wound 02/26/24 Pressure Injury Perineum Distal 02/26/24 1300 Perineum 2 Urinary Catheter Urinary Retention (Post void volume consistently greater than 350 mL) 02/07/24 2350 -- 20 (PICC) Peripherally Inserted Central Catheter 5 [place] 43 cm, 2 cm out Basilic 02/27/24 1137 -- 1 Psychosocial Assessment Within Defined Limits except for: Psychosocial Assessment: Observed Patient Behaviors: Sad/tearful * Nursing Assessment - Gaston Buckley RN - 02/28/2024 4:54 AM CDT Nursing Assessment Head to Toe Head to Toe Assessment Shift Summary Pt is A&OX4, able to make needs known call light with in reach. Pt is on RA, denies nausea/vomiting/abd pain. Pt abdomen is severely distended.Pt refused to be turned and repositioned stating shewas comfortable. Patient slept for about 3hrs this shift. TPN running 75 ml/hr. Will continue to follow POC. Neurologic/Cognitive Within Defined Limits HEENT Assessment Within Defined Limits except for: Teeth Symptoms: Tooth/teeth missing Cardiac Within Defined Limits Respiratory Within defined limits Neurovascular Assessment Within Defined Limits except for: Neurovascular RLE Sensation: Tenderness Edema Present: Yes Right Lower Extremity: 1+ Left Lower Extremity: 1+ Gastrointestinal Assessment Within Defined Limits except for: Abdominal appearance: Distended Stool (unmeasured): 1 (02/20/241999) Stool Amount: large (02/27/24542) Stool Color: brown (02/27/24542) Stool Consistency: liquid (02/27/2443) Liquid Stool (mL): 700 mL (02/27/2443) Genitourinary Assessment Within Defined Limits except for: Voiding: Urinary catheter in place Musculoskeletal Assessment Within Defined Limits except for: Musculoskeletal Assessment: General Mobility: Generalized weakness Integumentary Assessment Within Defined Limits except for: Skin Assessment Integrity - see Avatar LDA documentation Patient Lines/Drains/Airways Status Active LDAs Name Placement date Placement time Site Days Peripheral IV 02/11/24 20 gauge;1 3/4 in length Anterior;Right Upper Arm 02/11/241999 -- 16 Fecal Management/Containment System 02/20/242011 -- 7 Rash 02/02/24 2347 groin 02/02/24 2347 -- 25 Wound 02/03/24 Pedal Anterior;Right 02/03/24 0636 Pedal 24 Wound 02/03/24 Ulceration Sacrum 02/03/24 1200 Sacrum 24 Wound 02/05/24 Incision Knee Anterior;Right 02/05/24 1331 Knee 22 Wound 02/05/24 Incision Leg Distal;Upper;Right 02/05/24 1443 Leg 22 Wound 02/26/24 Pressure Injury Perineum Distal 02/26/24 1300 Perineum 1 Urinary Catheter Urinary Retention (Post void volume consistently greater than 350 mL) 02/07/24 2350 -- 20 (PICC) Peripherally Inserted Central Catheter 5 [place] 43 cm, 2 cm out Basilic 02/27/24 1137 -- less than 1 Psychosocial Within Defined Limits * Nursing Assessment - Gaston Buckley RN - 02/27/2024 6:42 PM CDT Nursing Assessment Head to Toe Head to Toe Assessment Shift Summary Pt is A&OX4, able to make needs known call light with in reach. Pt is on RA, denies nausea/vomiting/abd pain. Pt abdomen is severely distended. Turned and repositioned. Some redness under abd fold, nystatin powder applied. Redness around sacrum/buttocks as well as pressure wounds on posterior labia, barrier cream applied. Position of rectal catheter alternated to avoid further skin breakdown.No new stool noted in the cannister. TPN running 75 ml/hr. Complained of pain in her back, repositioning with pillows helped somewhat, and PRN oxycodone was given. Will continue to follow POC. Neurologic/Cognitive Within Defined Limits HEENT Assessment Within Defined Limits except for: Teeth Symptoms: Tooth/teeth missing Cardiac Within Defined Limits Respiratory Within defined limits Neurovascular Assessment Within Defined Limits except for: Neurovascular RLE Sensation: Tenderness Edema Present: Yes Right Lower Extremity: 1+ Left Lower Extremity: 1+ Gastrointestinal Assessment Within Defined Limits except for: Abdominal appearance: Obese, rounded and distended Emesis: 0 mL (02/25/2024 5:25 PM) Stool (unmeasured): 1 (02/20/241999) Stool Amount: large (02/27/24542) Stool Color: brown (02/27/24542) Stool Consistency: liquid (02/27/24542) Liquid Stool (mL): 700 mL (02/27/24542) Genitourinary Assessment Within Defined Limits except for: Voiding: Urinary catheter in place Musculoskeletal Assessment Within Defined Limits except for: Musculoskeletal Assessment: General Mobility: Moderately impaired Integumentary Assessment Within Defined Limits except for: Skin Assessment Integrity - see Avatar LDA documentation Patient Lines/Drains/Airways Status Active LDAs Name Placement date Placement time Site Days Peripheral IV 02/11/24 20 gauge;1 3/4 in length Anterior;Right Upper Arm 02/11/241999 -- 15 Fecal Management/Containment System 02/20/242011 -- 6 Rash 02/02/24 2347 groin 02/02/24 2347 -- 24 Wound 02/03/24 Pedal Anterior;Right 02/03/24 0636 Pedal 24 Wound 02/03/24 Ulceration Sacrum 02/03/24 1200 Sacrum 24 Wound 02/05/24 Incision Knee Anterior;Right 02/05/24 1331 Knee 22 Wound 02/05/24 Incision Leg Distal;Upper;Right 02/05/24 1443 Leg 22 Wound 02/26/24 Pressure Injury Perineum Distal 02/26/24 1300 Perineum 1 Urinary Catheter Urinary Retention (Post void volume consistently greater than 350 mL) 02/07/24 2350 -- 19 (PICC) Peripherally Inserted Central Catheter 5 [place] 43 cm, 2 cm out Basilic 02/27/24 1137 -- less than 1 Psychosocial Within Defined Limits * Nursing Assessment - Stacy Laughlin, GEOFF - 02/27/2024 2:43 PM CDT Nursing Assessment Head to Toe Head to Toe Assessment Shift Summary Shift Summary Alert and oriented. Severely distended abdomen. Denies nausea/vomiting/abd pain. Cano intact draining yellow urine. Turned and repositioned. Some redness under abd fold, nystatin powder applied. Redness around sacrum/buttocks as well as pressure wounds on posterior labia, barrier cream applied. Position of rectal catheter alternated to avoid further skin breakdown. No new stool in cannister. Dressing to R foot changed. PICC line placed to RUE this afternoon. Went down for XR to check placement. Waiting for okay to use line order and will then initiate TPN. On clear liquid diet and drinkingplenty of fluids. Bed bath provided. at bedside this afternoon. Stacy Laughlin RN, 02/27/2024 2:44 PM Neurologic/Cognitive Within Defined Limits HEENT Assessment Within Defined Limits except for: Teeth Symptoms: Tooth/teeth missing Cardiac Within Defined Limits Respiratory Within defined limits Neurovascular Assessment Within Defined Limits except for: Neurovascular RLE Sensation: Tenderness Edema Present: Yes Right Lower Extremity: 1+ Left Lower Extremity: 1+ Gastrointestinal Assessment Within Defined Limits except for: Abdominal appearance: Distended, rounded and taut Emesis: 0 mL (02/25/2024 5:25 PM) Stool (unmeasured): 1 (02/20/241999) Stool Amount: large (02/27/24 0543) Stool Color: brown (02/27/24 0543) Stool Consistency: liquid (02/27/24 0543) Liquid Stool (mL): 700 mL (02/27/24 0543) Genitourinary Assessment Within Defined Limits except for: Voiding: Urinary catheter in place Musculoskeletal Assessment Within Defined Limits except for: Musculoskeletal Assessment: General Mobility: Moderately impaired Integumentary Assessment Within Defined Limits except for: Skin Assessment Integrity - see Avatar LDA documentation Patient Lines/Drains/Airways Status Active LDAs Name Placement date Placement time Site Days Peripheral IV 02/11/24 20 gauge;1 3/4 in length Anterior;Right Upper Arm 02/11/241999 -- 15 Fecal Management/Containment System 02/20/242011 -- 6 Rash 02/02/24 2347 groin 02/02/24 2347 -- 24 Wound 02/03/24 Pedal Anterior;Right 02/03/24 0636 Pedal 24 Wound 02/03/24 Ulceration Sacrum 02/03/24 1200 Sacrum 24 Wound 02/05/24 Incision Knee Anterior;Right 02/05/24 1331 Knee 22 Wound 02/05/24 Incision Leg Distal;Upper;Right 02/05/24 1443 Leg 22 Wound 02/26/24 Pressure Injury Perineum Distal 02/26/24 1300 Perineum 1 Urinary Catheter Urinary Retention (Post void volume consistently greater than 350 mL) 02/07/24 2350 -- 19 (PICC) Peripherally Inserted Central Catheter 5 [place] 43 cm, 2 cm out Basilic 02/27/24 1137 -- less than 1 Psychosocial Within Defined Limits * Nursing Assessment - Stewart Poe RN - 02/27/2024 4:23 AM CDT Nursing Assessment Head to Toe Head to Toe Assessment Shift Summary No acute overnight events were noted, pain adequately controlled, lines and drains in place, minimal stool noted from rectal tube. Hoping to have a PICC line today for commencement of parenteral nutrition. Dressings to RLE CDI, denies any SOB, N/V, fevers or chills. She is tolerating clear liquid diet, blood sugar stable. Neurologic/Cognitive Within Defined Limits HEENT Assessment Within Defined Limits except for: Teeth Symptoms: Tooth/teeth missing Cardiac Within Defined Limits Respiratory Within defined limits Neurovascular Within Defined Limits Gastrointestinal Assessment Within Defined Limits except for: Abdominal appearance: Distended Emesis: 0 mL (02/25/2024 5:25 PM) Stool (unmeasured): 1 (02/20/24 2000) Stool Amount: small (02/26/24 1600) Stool Color: light brown (02/26/24 1600) Stool Consistency: liquid (02/26/24 1600) Liquid Stool (mL): 150 mL (02/26/24 1500) Genitourinary Assessment Within Defined Limits except for: Voiding: Urinary catheter in place Musculoskeletal Assessment Within Defined Limits except for: Musculoskeletal Assessment: General Mobility: Moderately impairedJoint Tenderness right - foot and hip Range of Motion: General - moderately impaired RLE - moderately impaired Integumentary Assessment Within Defined Limits except for: Skin Assessment Integrity - see Avatar LDA documentation Patient Lines/Drains/Airways Status Active LDAs Name Placement date Placement time Site Days Peripheral IV 02/11/24 20 gauge;1 3/4 in length Anterior;Right Upper Arm 02/11/241999 -- 15 Fecal Management/Containment System 02/20/24 2012 -- 6 Rash 02/02/24 2347 groin 02/02/24 2347 -- 24 Wound 02/03/24 Pedal Anterior;Right 02/03/24 0636 Pedal 23 Wound 02/03/24 Ulceration Sacrum 02/03/24 1200 Sacrum 23 Wound 02/05/24 Incision Knee Anterior;Right 02/05/24 1331 Knee 21 Wound 02/05/24 Incision Leg Distal;Upper;Right 02/05/24 1443 Leg 21 Wound 02/26/24 Pressure Injury Perineum Distal 02/26/24 1300 Perineum less than 1 Urinary Catheter Urinary Retention (Post void volume consistently greater than 350 mL) 02/07/24 2350 -- 19 Psychosocial Within Defined Limits * Cross Cover - Sascha Cavazso PA-C - 02/27/2024 12:00 AM CDT Rip mendez was asked to order X-ray following PICC line placement. X-cover notified by nurse that PICC line nurse is not available to place PICC line until the AM. Sascha Cavazos PA-C, 02/27/2024 12:02 AM * Cross Cover - Ernestine Toribio MD - 02/26/2024 7:29 PM CDT Internal Medicine Cross-Cover Note Contacted by Surgery Team. Plan to not advance diet given worsening abdominal distention. I saw patient. Abdomen distended and firm, not tender to palpation, no rigidity or guarding. Patient in agreement with starting TPN. TPN orders placed per Nutrition recs. Ernestine Toribio MD, 02/26/2024 7:31 PM * Nursing Assessment - Denia King RN - 02/26/2024 6:36 PM CDT Nursing Assessment Head to Toe Head to Toe Assessment Shift Summary Patient is alert and oriented and able to make her needs known. VSS, RA. Denies pain. Q2 turns completed. Cano catheter in place. Cano catheter placed in rectum to gravity. Intermittent bowel incontinence around tube. No other complaints. Continuing to follow the POC. Denia King RN, 02/26/2024 6:42 PM Neurologic/Cognitive Within Defined Limits HEENT Within Defined Limits Cardiac Within Defined Limits Respiratory Within defined limits Neurovascular Assessment Within Defined Limits except for: Edema Present: Yes Right Lower Extremity: 1+ Left Lower Extremity: 1+ Gastrointestinal Assessment Within Defined Limits except for: Abdominal appearance: Rounded, distended and taut Emesis: 0 mL (02/25/2024 5:25 PM) Stool (unmeasured): 1 (02/20/241999) Stool Amount: small (02/26/24 1600) Stool Color: light brown (02/26/24 1600) Stool Consistency: liquid (02/26/24 1600) Liquid Stool (mL): 150 mL (02/26/24 1500) Genitourinary Assessment Within Defined Limits except for: Voiding: Urinary catheter in place Musculoskeletal Assessment Within Defined Limits except for: Musculoskeletal Assessment: General Mobility: Moderately impaired Integumentary Assessment Within Defined Limits except for: Skin Assessment Integrity - see Avatar LDA documentation Patient Lines/Drains/Airways Status Active LDAs Name Placement date Placement time Site Days Peripheral IV 02/11/24 20 gauge;1 3/4 in length Anterior;Right Upper Arm 02/11/241999 -- 14 Fecal Management/Containment System 02/20/242011 -- 5 Rash 02/02/24 2347 groin 02/02/24 2347 -- 23 Wound 02/03/24 Pedal Anterior;Right 02/03/24 0636 Pedal 23 Wound 02/03/24 Ulceration Sacrum 02/03/24 1200 Sacrum 23 Wound 02/05/24 Incision Knee Anterior;Right 02/05/24 1331 Knee 21 Wound 02/05/24 Incision Leg Distal;Upper;Right 02/05/24 1443 Leg 21 Wound 02/26/24 Pressure Injury Perineum Distal 02/26/24 1300 Perineum less than 1 Urinary Catheter Urinary Retention (Post void volume consistently greater than 350 mL) 02/07/24 2350 -- 18 Psychosocial Within Defined Limits * Nursing Assessment - Stacy Laughlin, GEOFF - 02/26/2024 1:56 PM CDT Nursing Assessment Head to Toe Head to Toe Assessment Shift Summary Shift Summary Alert and oriented. Severely distended abdomen. Denies nausea/vomiting/abd pain. Cano intact draining yellow urine. Turned and repositioned. Some redness under abd fold, nystatin powder applied. Redness around sacrum/buttocks, barrier cream applied. Dressing to R foot changed. This teletypewriter installer noted this AM that pt has a Cano tube in rectum and attached to suction however there are no orders for suction or managing the tube. Reached out to primary team who instructed this teletypewriter installer to leave it attached to suction while they paged the surgery team for clarification. During yulia cares, this teletypewriter installer noted blood blisters on both sides of the posterior labia that seemed related to the rectal catheter. WOCN consult placed. Team contacted again regarding orders for suction, per provider still waiting for instructions from the surgery team. Surgery team later instructed to stop suction and leave the rectal catheter to gravity. Still no orders for management of rectal catheter, surgery team notified several times of need for orders. Barrier cream applied to labial blood blisters, and rectal catheter tubing readjusted as best as possible to reduce friction against labia. 150mlliquid stool output. Stacy Laughlin, GEOFF, 02/26/2024 3:43 PM Neurologic/Cognitive Within Defined Limits HEENT Assessment Within Defined Limits except for: Teeth Symptoms: Tooth/teeth missing Cardiac Within Defined Limits Respiratory Within defined limits Neurovascular Assessment Within Defined Limits except for: Neurovascular RLE Sensation: Tenderness Edema Present: Yes Right Lower Extremity: 1+ Left Lower Extremity: 1+ Gastrointestinal Assessment Within Defined Limits except for: Abdominal appearance: Distended, rounded and taut Emesis: 0 mL (02/25/2024 5:25 PM) Stool (unmeasured): 1 (02/20/241999) Stool Amount: small (02/26/24 1100) Stool Color: light brown (02/26/24 1100) Stool Consistency: loose (02/26/24 1100) Liquid Stool (mL): 250 mL (02/26/24 0544) Genitourinary Assessment Within Defined Limits except for: Voiding: Urinary catheter in place Musculoskeletal Assessment Within Defined Limits except for: Musculoskeletal Assessment: General Mobility: Moderately impaired Integumentary Assessment Within Defined Limits except for: Skin Assessment Integrity - see Avatar LDA documentation Patient Lines/Drains/Airways Status Active LDAs Name Placement date Placement time Site Days Peripheral IV 02/11/24 20 gauge;1 3/4 in length Anterior;Right Upper Arm 02/11/241999 -- 14 Fecal Management/Containment System 02/20/242011 -- 5 Rash 02/02/24 2347 groin 02/02/24 2347 -- 23 Wound 02/03/24 Pedal Anterior;Right 02/03/24 0636 Pedal 23 Wound 02/03/24 Ulceration Sacrum 02/03/24 1200 Sacrum 23 Wound 02/05/24 Incision Knee Anterior;Right 02/05/24 1331 Knee 21 Wound 02/05/24 Incision Leg Distal;Upper;Right 02/05/24 1443 Leg 20 Wound 02/26/24 Pressure Injury Perineum Distal 02/26/24 1300 Perineum less than 1 Urinary Catheter Urinary Retention (Post void volume consistently greater than 350 mL) 02/07/24 2350 -- 18 Psychosocial Within Defined Limits * Nursing Assessment - Gee Mirza RN - 02/26/2024 6:55 AM CDT Nursing Assessment Head to Toe Head to Toe Assessment Shift Summary Patient alert and oriented x 4, uses call light to report needs. VSS on RA, denies respiratory discomfort. T&R, abdomen distended. Rectal tube in place with suction with 100cc output. Cano cath intact, catheter cares completed, BLE elevated, RLE aced wrapped and intact, CMS intact, SCD to LLE,wiggled toes. Denies pain. To continue monitor. Within Defined Limits HEENT Within Defined Limits Cardiac Within Defined Limits Respiratory Within defined limits Neurovascular Assessment Within Defined Limits except for: Edema Present: Yes Right Lower Extremity: 1+ Left Lower Extremity: 1+ Gastrointestinal Assessment Within Defined Limits except for: Abdominal appearance: Distended and rounded Additional GI Signs/Symptoms: abdominal discomfort Comments: Passing flatus: constant loose stool with rectal tube in place on suction Emesis: 0 mL (02/25/2024 5:25 PM) Stool (unmeasured): 1 (02/20/241999) Stool Amount: large (02/25/242199) Stool Color: light brown (02/25/242199) Stool Consistency: creamy (02/25/242199) Liquid Stool (mL): 700 mL (02/25/242199) Genitourinary Assessment Within Defined Limits except for: Voiding: Urinary catheter in place and incontinent Comments: Catheter cares, Musculoskeletal Assessment Within Defined Limits except for: Musculoskeletal Assessment: General Mobility: Generalized weakness Integumentary Assessment Within Defined Limits except for: Skin Assessment Integrity - see Avatar LDA documentation and cuts or scratches Patient Lines/Drains/Airways Status Active LDAs Name Placement date Placement time Site Days Peripheral IV 02/11/24 20 gauge;1 3/4 in length Anterior;Right Upper Arm 02/11/241999 -- 14 Fecal Management/Containment System 02/20/242011 -- 5 Rash 02/02/24 2347 groin 02/02/24 2347 -- 23 Wound 02/03/24 Pedal Anterior;Right 02/03/24 0636 Pedal 22 Wound 02/03/24 Ulceration Sacrum 02/03/24 1200 Sacrum 22 Wound 02/05/24 Incision Knee Anterior;Right 02/05/24 1331 Knee 20 Wound 02/05/24 Incision Leg Distal;Upper;Right 02/05/24 1443 Leg 20 Urinary Catheter Urinary Retention (Post void volume consistently greater than 350 mL) 02/07/24 2350 -- 18 Psychosocial Within Defined Limits * Nursing Assessment - Judi Cueva RN - 02/25/2024 4:53 PM CDT Nursing Assessment Head to Toe Head to Toe Assessment Shift Summary Patient is alert and oriented 4X, c/o pain to abdomen 02/11 but request to be reposition. On room air, can make needs known verbally. Patient rectal tube is out, and patient inform teletypewriter installer she wants surgery to access the area. Pairer updated provider and other staff about patient distended abdomen, awaiting response. Pairer was informed by provider to reinstate rectal tube. Pairer asked for assistance, from charge nurse and flying squad nurses and patient rectal tube was placed in, and patient had 700 cc bowel movement out. Soft BP encourage to drink more fluid.Filed Vitals: 02/25/24 1600 BP: 90/63 Pulse: 61 Resp: 16 Temp: 96.8 Weight: Judi Cueva RN, 02/25/2024 10:27 PM Within Defined Limits HEENT Within Defined Limits Cardiac Within Defined Limits Respiratory Within defined limits Neurovascular Assessment Within Defined Limits except for: Edema Present: Yes Right Lower Extremity: 2+ Left Lower Extremity: 2+ Gastrointestinal Assessment Within Defined Limits except for: Abdominal appearance: Distended and rounded Additional GI Signs/Symptoms: abdominal discomfort Comments: Patient rectal tube is out per report, abdomen very distended than yesterday Stool (unmeasured): 1 (02/20/241999) Stool Amount: small (02/24/241739) Stool Color: light brown (02/24/24 174) Stool Consistency: creamy (02/24/24 1740) Liquid Stool (mL): 55 mL (02/24/24 1427) Genitourinary Assessment Within Defined Limits except for: Voiding: Urinary catheter in place and incontinent Comments: Catheter cares, Musculoskeletal Assessment Within Defined Limits except for: Musculoskeletal Assessment: General Mobility: Generalized weakness Integumentary Assessment Within Defined Limits except for: Skin Assessment Color/Characteristics - bruised (ecchymotic) Integrity - see Avatar LDA documentation and cuts or scratches Patient Lines/Drains/Airways Status Active LDAs Name Placement date Placement time Site Days Peripheral IV 02/11/24 20 gauge;1 3/4 in length Anterior;Right Upper Arm 02/11/241999 -- 13 Fecal Management/Containment System 02/20/24 2012 -- 4 Rash 02/02/24 2347 groin 02/02/24 2347 -- 22 Wound 02/03/24 Pedal Anterior;Right 02/03/24 0636 Pedal 22 Wound 02/03/24 Ulceration Sacrum 02/03/24 1200 Sacrum 22 Wound 02/05/24 Incision Knee Anterior;Right 02/05/24 1331 Knee 20 Wound 02/05/24 Incision Leg Distal;Upper;Right 02/05/24 1443 Leg 20 Urinary Catheter Urinary Retention (Post void volume consistently greater than 350 mL) 02/07/24 2350 -- 17 Psychosocial Within Defined Limits * Nursing Assessment - eFde Chicas RN - 02/25/2024 2:17 PM CDT Nursing Assessment Head to Toe Head to Toe Assessment Shift Summary Pt Aox4. Able to make needs known. C/o pain RLE prn Oxy utilized. Pt had Xray of abdomen. Potassiumreplacement done. Incontinent to B/B. Rectal tube came out teletypewriter installer tried to replace it but pt declined and wanted surgery team to look at first. Team notified. cano in place. Q 2 turned completed, intentional rounding done. Continue w/poc. Neurologic/Cognitive Within Defined Limits HEENT Assessment Within Defined Limits except for: Teeth Symptoms: Tooth/teeth broken Cardiac Within Defined Limits Respiratory Within defined limits Neurovascular Assessment Within Defined Limits except for: Neurovascular RLE Sensation: Tenderness Gastrointestinal Assessment Within Defined Limits except for: Abdominal appearance: Distended Additional GI Signs/Symptoms: fecal incontinence Stool (unmeasured): 1 (02/20/241999) Stool Amount: small (02/24/24 1740) Stool Color: light brown (02/24/24 1740) Stool Consistency: creamy (02/24/24 1740) Liquid Stool (mL): 55 mL (02/24/24 1427) Genitourinary Assessment Within Defined Limits except for: Voiding: Urinary catheter in place Musculoskeletal Assessment Within Defined Limits except for: Musculoskeletal Assessment: General Mobility: Generalized weakness and moderately impaired Integumentary Assessment Within Defined Limits except for: Skin Assessment Integrity - see Avatar LDA documentation Patient Lines/Drains/Airways Status Active LDAs Name Placement date Placement time Site Days Peripheral IV 02/11/24 20 gauge;1 3/4 in length Anterior;Right Upper Arm 02/11/241999 -- 13 Fecal Management/Containment System 02/20/242011 -- 4 Rash 02/02/24 2347 groin 02/02/24 2347 -- 22 Wound 02/03/24 Pedal Anterior;Right 02/03/24 0636 Pedal 22 Wound 02/03/24 Ulceration Sacrum 02/03/24 1200 Sacrum 22 Wound 02/05/24 Incision Knee Anterior;Right 02/05/24 1331 Knee 20 Wound 02/05/24 Incision Leg Distal;Upper;Right 02/05/24 1443 Leg 19 Urinary Catheter Urinary Retention (Post void volume consistently greater than 350 mL) 02/07/242349 -- 17 Psychosocial Assessment Within Defined Limits except for: Psychosocial Assessment: Observed Patient Behaviors: Pleasant Verbalized Emotional State: Acceptance * Utilization Management - Annalise Guo, RN - 02/25/2024 11:58 AM CDT Comorbidities not listed within criteria correlating to medical condition and treatments. 02/24-Continues to struggle with medical comorbidities. Will ultimately need ANA. Short list not completely inclusive: * acute on chronic severe chronic bowel distension. * Vik-Hwang B cirrhosis * Diabetic Neuropathic Ulceration - fulll thickness * Urinary retention - straight cath Not sent to [facility] for secondary review. * Nursing Assessment - Gee Mirza RN - 02/25/2024 6:57 AM CDT Nursing Assessment Head to Toe Head to Toe Assessment Shift Summary Patient alert and oriented x 4, uses call light to report needs. VSS on RA, denies respiratory discomfort. T&R, abdomen distended, reported passing flatus, Rectal tube in place with suction with small output, cannister changed beginning of shift. Cano cath intact, catheter cares completed, BLEelevated, RLE aced wrapped and intact, CMS intact, SCD to LLE, wiggled toes. To continue monitor. Within Defined Limits HEENT Within Defined Limits Cardiac Within Defined Limits Respiratory Within defined limits Neurovascular Assessment Within Defined Limits except for: Edema Present: Yes Right Lower Extremity: 1+ Left Lower Extremity: 1+ Gastrointestinal Assessment Within Defined Limits except for: Abdominal appearance: Distended and rounded Additional GI Signs/Symptoms: abdominal discomfort Comments: Passing flatus: constant loose stool with rectal tube in place on suction Stool (unmeasured): 1 (02/20/241999) Stool Amount: small (02/24/241739) Stool Color: light brown (02/24/241739) Stool Consistency: creamy (02/24/241739) Liquid Stool (mL): 55 mL (02/24/24 142) Genitourinary Assessment Within Defined Limits except for: Voiding: Urinary catheter in place and incontinent Comments: Catheter cares, Musculoskeletal Assessment Within Defined Limits except for: Musculoskeletal Assessment: General Mobility: Generalized weakness Integumentary Assessment Within Defined Limits except for: Skin Assessment Integrity - see Avatar LDA documentation and cuts or scratches Patient Lines/Drains/Airways Status Active LDAs Name Placement date Placement time Site Days Peripheral IV 02/11/24 20 gauge;1 3/4 in length Anterior;Right Upper Arm 02/11/241999 -- 13 Fecal Management/Containment System 02/20/242011 -- 4 Rash 02/02/24 2347 groin 02/02/24 2347 -- 22 Wound 02/03/24 Pedal Anterior;Right 02/03/24 0636 Pedal 21 Wound 02/03/24 Ulceration Sacrum 02/03/24 1200 Sacrum 21 Wound 02/05/24 Incision Knee Anterior;Right 02/05/24 1331 Knee 19 Wound 02/05/24 Incision Leg Distal;Upper;Right 02/05/24 1443 Leg 19 Urinary Catheter Urinary Retention (Post void volume consistently greater than 350 mL) 02/07/24 2350 -- 17 Psychosocial Within Defined Limits * Nursing Assessment - Judi Cueva RN - 02/24/2024 5:53 PM CDT Nursing Assessment Head to Toe Head to Toe Assessment Shift Summary Patient is alert and oriented 4X, rate pain to abdomen and bilateral lower extremities 7/10 and PRNoxycodone given. Distended abdomen and has a rectal tube and suction in placed and teletypewriter installer and HCA reposition patient to a comfortable position. Patient is on room air, lower extremities elevated on pillows. Denies SOB, nausea and vomiting, and requested for snacks and beverages given. Cano in tactand patent. Pairer will continue to monitor. Within Defined Limits HEENT Within Defined Limits Cardiac Within Defined Limits Respiratory Within defined limits Neurovascular Assessment Within Defined Limits except for: Edema Present: Yes Right Lower Extremity: 1+ Left Lower Extremity: 1+ Gastrointestinal Assessment Within Defined Limits except for: Abdominal appearance: Distended and rounded Additional GI Signs/Symptoms: abdominal discomfort Comments: Patient has a rectal suction, distended abdomen, ascities Stool (unmeasured): 1 (02/20/241999) Stool Amount: small (02/24/24 1740) Stool Color: light brown (02/24/24 1740) Stool Consistency: creamy (02/24/24 1740) Liquid Stool (mL): 55 mL (02/24/24 1427) Genitourinary Assessment Within Defined Limits except for: Voiding: Urinary catheter in place and incontinent Comments: Catheter cares, Musculoskeletal Assessment Within Defined Limits except for: Musculoskeletal Assessment: General Mobility: Generalized weakness Integumentary Assessment Within Defined Limits except for: Skin Assessment Integrity - see Avatar LDA documentation and cuts or scratches Patient Lines/Drains/Airways Status Active LDAs Name Placement date Placement time Site Days Peripheral IV 02/11/24 20 gauge;1 3/4 in length Anterior;Right Upper Arm 02/11/241999 -- 12 Fecal Management/Containment System 02/20/242011 -- 3 Rash 02/02/24 2347 groin 02/02/24 2347 -- 21 Wound 02/03/24 Pedal Anterior;Right 02/03/24 0636 Pedal 21 Wound 02/03/24 Ulceration Sacrum 02/03/24 1200 Sacrum 21 Wound 02/05/24 Incision Knee Anterior;Right 02/05/24 1331 Knee 19 Wound 02/05/24 Incision Leg Distal;Upper;Right 02/05/24 1443 Leg 19 Urinary Catheter Urinary Retention (Post void volume consistently greater than 350 mL) 02/07/24 2350 -- 16 Psychosocial Within Defined Limits * Nursing Assessment - Nilay Darden RN - 02/24/2024 12:45 PM CDT Nursing Assessment Head to Toe Head to Toe Assessment Shift Summary [id number] Alert and oriented x 4, uses call light to report needs, vs wnl on ra, T&R, reported 8/10 aching pain, oxycodone given for pain management with report of partial pain relief of 6/10, abd distended, reported passing flatus, Rectal tube in place with suction for fecal incontinence, total of 55 mlfor this shift , cannister changed, incontinent of urine, urinary catheter, catheter cares completed, total of 300 cc emptied out, BLE elevated, RLE aced wrapped and intact, cms intact, SCD to LLE, wiggled toes, takes medication whole, nystatin powder place under abd, no acute changes, intentional rounding, will continue. Filed Vitals: 02/24/24 0738 BP: 99/61 Pulse: 70 Resp: 17 Temp: 36.6 ??C (97.9 ??F) Nilay Darden, GEOFF, 02/24/2024 3:00 PM Neurologic/Cognitive Within Defined Limits HEENT Within Defined Limits Cardiac Within Defined Limits Respiratory Within defined limits Neurovascular Assessment Within Defined Limits except for: Edema Present: Yes Right Lower Extremity: 1+ Left Lower Extremity: 1+ Gastrointestinal Assessment Within Defined Limits except for: Abdominal appearance: Distended and rounded Additional GI Signs/Symptoms: abdominal discomfort Comments: Passing flatus: constant loose stool with rectal tube in place on suction Stool (unmeasured): 1 (02/20/241999) Stool Amount: large (02/23/24 0612) Stool Color: light brown (02/24/24 0500) Stool Consistency: liquid (02/24/24 0500) Liquid Stool (mL): 50 mL (02/24/24 0500) Genitourinary Assessment Within Defined Limits except for: Voiding: Urinary catheter in place and incontinent Comments: Catheter cares, Musculoskeletal Assessment Within Defined Limits except for: Musculoskeletal Assessment: General Mobility: Generalized weakness Integumentary Assessment Within Defined Limits except for: Skin Assessment Integrity - see Avatar LDA documentation and cuts or scratches Patient Lines/Drains/Airways Status Active LDAs Name Placement date Placement time Site Days Peripheral IV 02/11/24 20 gauge;1 3/4 in length Anterior;Right Upper Arm 02/11/241999 -- 12 Fecal Management/Containment System 02/20/24 2012 -- 3 Rash 02/02/24 2347 groin 02/02/24 2347 -- 21 Wound 02/03/24 Pedal Anterior;Right 02/03/24 0636 Pedal 21 Wound 02/03/24 Ulceration Sacrum 02/03/24 1200 Sacrum 21 Wound 02/05/24 Incision Knee Anterior;Right 02/05/24 1331 Knee 18 Wound 02/05/24 Incision Leg Distal;Upper;Right 02/05/24 1443 Leg 18 Urinary Catheter Urinary Retention (Post void volume consistently greater than 350 mL) 02/07/24 2350 -- 16 Psychosocial Within Defined Limits * Utilization Management - Nicole Forbes MD - 02/24/2024 12:30 PM CDT 58F with decompensated cirrhosis, neuropathy with neurogenic bowel/bladder, etoh use, MAX, DM2 - admitted on 02/01 after fall from standing height with L femur fracture. Initial concern for sigmoid volvulus ruled out. 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 Surgery reconsulted for recurrent dilation of the sigmoid colon. Has cano in the sigmoid and managing conservatively. Pt is medically complex and at risk for clinical deterioration andinpt status is appropriate. * Utilization Management - Annalise Guo RN - 02/24/2024 12:18 PM CDT Summary: PA Secondary Review Continues to not meet IP criteria. No criteria available for patient's GI issue. Fecal Management/Containment system for removing bowel contents as of 02/20/24. Therapies continue to recommend placement. Patient not medically ready for discharge. Referring to PA for secondary review. * Nursing Assessment - Noni Caba RN - 02/24/2024 1:20 AM CDT Nursing Assessment Head to Toe Head to Toe Assessment Shift Summary Patient alert and oriented x4. On RA. Abdomin distended. Denies sob, chest pain, n/v, abdominal pain. Complained RLE pain, requested pain medication, prn Oxycodone given with partial effect. RLE wrapped with bladimir wrap, knee dressing cdi, cms intact, able to wiggles toes. Cano cath in place, draining tea colored urine. Fluids encouraged., patient prefer ice chips. Rectal tube in place, patent, draining light brown liquid stool. Medication whole with water. Turned and repositioned completed. Patient pleasant and cooperative with cares, slept well during the shift. Will continue to monitor. Neurologic/Cognitive Within Defined Limits HEENT Within Defined Limits Cardiac Within Defined Limits Respiratory Within defined limits Neurovascular Assessment Within Defined Limits except for: Neurovascular RLE Sensation: Tenderness Edema Present: Yes Right Lower Extremity: 2+ Left Lower Extremity: 2+ Gastrointestinal Assessment Within Defined Limits except for: Abdominal appearance: Distended Additional GI Signs/Symptoms: fecal incontinence and diarrhea Comments: Rectal tube in place connected with suction Stool (unmeasured): 1 (02/20/241999) Stool Amount: large (02/23/24 0612) Stool Color: light brown (02/23/24 2200) Stool Consistency: liquid (02/23/24 2200) Liquid Stool (mL): 400 mL (02/23/240) Genitourinary Assessment Within Defined Limits except for: Voiding: Urinary catheter in place Musculoskeletal Assessment Within Defined Limits except for: Musculoskeletal Assessment: General Mobility: Moderately impairedJoint Tenderness right - foot Range of Motion: RLE - moderately impaired Integumentary Assessment Within Defined Limits except for: Skin Assessment Integrity - see Avatar LDA documentation Patient Lines/Drains/Airways Status Active LDAs Name Placement date Placement time Site Days Peripheral IV 02/11/24 20 gauge;1 3/4 in length Anterior;Right Upper Arm 02/11/241999 -- 12 Fecal Management/Containment System 02/20/242011 -- 3 Rash 02/02/24 2347 groin 02/02/24 2347 -- 21 Wound 02/03/24 Pedal Anterior;Right 02/03/24 0636 Pedal 20 Wound 02/03/24 Ulceration Sacrum 02/03/24 1200 Sacrum 20 Wound 02/05/24 Incision Knee Anterior;Right 02/05/24 1331 Knee 18 Wound 02/05/24 Incision Leg Distal;Upper;Right 02/05/24 1443 Leg 18 Urinary Catheter Urinary Retention (Post void volume consistently greater than 350 mL) 02/07/24 2350 -- 16 Psychosocial Assessment Within Defined Limits except for: * Nursing Assessment - Humphrey Nagel RN - 02/23/2024 3:53 PM CDT Nursing Assessment Head to Toe Head to Toe Assessment Shift Summary Patient is alert and oriented. Reports pain to abdomen and given 5 mg of oxycodone with relief per patient report. Patient abdomen distended and hard. Provider inserted urine catheter up rectum to decompress bowel. Catheter is attached to suction with 800 ml of output this shift. Patient with many request. Patient appears anxious. Cano catheter with 500 ml of output this shift. Neurologic/Cognitive Within Defined Limits HEENT Assessment Within Defined Limits except for: Teeth Symptoms: Tooth/teeth missing Cardiac Within Defined Limits Respiratory Within defined limits Neurovascular Assessment Within Defined Limits except for: Edema Present: Yes Right Lower Extremity: 2+ Left Lower Extremity: 2+ Gastrointestinal Assessment Within Defined Limits except for: Abdominal appearance: Rounded, distended and taut Additional GI Signs/Symptoms: abdominal pain, abdominal discomfort and fecal incontinence Stool (unmeasured): 1 (02/20/241999) Stool Amount: large (02/23/24611) Stool Color: light brown (02/23/24 0612) Stool Consistency: liquid (02/23/24 0612) Liquid Stool (mL): 800 mL (02/23/24 1500) Genitourinary Assessment Within Defined Limits except for: Voiding: Urinary catheter in place Musculoskeletal Assessment Within Defined Limits except for: Musculoskeletal Assessment: General Mobility: Generalized weakness Range of Motion: RLE - moderately impaired Integumentary Assessment Within Defined Limits except for: Skin Assessment Integrity - see Avatar LDA documentation Patient Lines/Drains/Airways Status Active LDAs Name Placement date Placement time Site Days Peripheral IV 02/11/24 20 gauge;1 3/4 in length Anterior;Right Upper Arm 02/11/241999 -- 11 Fecal Management/Containment System 02/20/24 2012 -- 2 Rash 02/02/24 2347 groin 02/02/24 2347 -- 20 Wound 02/03/24 Pedal Anterior;Right 02/03/24 0636 Pedal 20 Wound 02/03/24 Ulceration Sacrum 02/03/24 1200 Sacrum 20 Wound 02/05/24 Incision Knee Anterior;Right 02/05/24 1331 Knee 18 Wound 02/05/24 Incision Leg Distal;Upper;Right 02/05/24 1443 Leg 18 Urinary Catheter Urinary Retention (Post void volume consistently greater than 350 mL) 02/07/24 2350 -- 15 Psychosocial Within Defined Limits * Nursing Assessment - Noni Caba RN - 02/23/2024 12:34 AM CDT Nursing Assessment Head to Toe Head to Toe Assessment Shift Summary Patient alert and oriented x4. On RA. Abdomin distended. Denies sob, chest pain, n/v, abdominal pain. Complained RLE pain, requested pain medication, prn Oxycodone given with partial effect. RLE wrapped with bladimir wrap, dressing cdi, cms intact, able to wiggles toes. Cano cath in place, draining teacolored urine. Rectal tube in place, patent. Incontinent of Bowel. Had extra large loose stool. Medication whole with water. Turned and repositioned completed. Patient pleasant and cooperative with cares, slept well during the shift. Will continue to monitor. Neurologic/Cognitive Within Defined Limits HEENT Within Defined Limits Cardiac Within Defined Limits Respiratory Within defined limits Neurovascular Assessment Within Defined Limits except for: Neurovascular RLE Sensation: Tenderness Edema Present: Yes Right Lower Extremity: 2+ Gastrointestinal Assessment Within Defined Limits except for: Abdominal appearance: Distended Additional GI Signs/Symptoms: fecal incontinence Stool (unmeasured): 1 (02/20/241999) Stool Amount: small (02/21/24 1400) Stool Color: light brown (02/22/24 0600) Stool Consistency: liquid (02/22/24 0600) Liquid Stool (mL): 150 mL (02/22/24 0600) Genitourinary Assessment Within Defined Limits except for: Voiding: Urinary catheter in place Musculoskeletal Assessment Within Defined Limits except for: Musculoskeletal Assessment: General Mobility: Moderately impaired Integumentary Assessment Within Defined Limits except for: Skin Assessment Integrity - see Avatar LDA documentation Patient Lines/Drains/Airways Status Active LDAs Name Placement date Placement time Site Days Peripheral IV 02/11/24 20 gauge;1 3/4 in length Anterior;Right Upper Arm 02/11/241999 -- 11 Fecal Management/Containment System 02/20/242011 -- 2 Rash 02/02/24 2347 groin 02/02/24 2347 -- 20 Wound 02/03/24 Pedal Anterior;Right 02/03/24 0636 Pedal 19 Wound 02/03/24 Ulceration Sacrum 02/03/24 1200 Sacrum 19 Wound 02/05/24 Incision Knee Anterior;Right 02/05/24 1331 Knee 17 Wound 02/05/24 Incision Leg Distal;Upper;Right 02/05/24 1443 Leg 17 Urinary Catheter Urinary Retention (Post void volume consistently greater than 350 mL) 02/07/24 2350 -- 15 Psychosocial Assessment Within Defined Limits except for: * Nursing Assessment - Humphrey Nagel RN - 02/22/2024 3:52 PM CDT Nursing Assessment Head to Toe Head to Toe Assessment Shift Summary Patient is alert and oriented. Reports pain to abdomen and given 5 mg of oxycodone with relief per patient report. Patient abdomen distended and hard. Patient with rectal tube that was later removed due to bypassing of stool. Patient now stooling on al with moderate amounts of liquid stool. Provider inserted urine catheter up rectum to decompress valve. Catheter is held in place with elastic straps and attached to cano bag. Pairer note significant amount of gas in cano bag and valve is open to allowed to vent. New nursing orders to care for catheter if needed. Repositioned every two. Patient with many request. Patient appears anxious. Neurologic/Cognitive Within Defined Limits HEENT Assessment Within Defined Limits except for: Teeth Symptoms: Tooth/teeth loose and tooth/teeth missing Cardiac Within Defined Limits Respiratory Within defined limits Neurovascular Assessment Within Defined Limits except for: Edema Present: Yes Right Lower Extremity: 2+ Left Lower Extremity: 2+ Gastrointestinal Assessment Within Defined Limits except for: Abdominal appearance: Rounded and distended Additional GI Signs/Symptoms: fecal incontinence, abdominal pain and abdominal discomfort Stool (unmeasured): 1 (02/20/241999) Stool Amount: small (02/21/24 1400) Stool Color: light brown (02/22/24 06) Stool Consistency: liquid (02/22/24 06) Liquid Stool (mL): 150 mL (02/22/24599) Genitourinary Assessment Within Defined Limits except for: Voiding: Urinary catheter in place Musculoskeletal Assessment Within Defined Limits except for: Musculoskeletal Assessment: Range of Motion: LLE - moderately impaired RLE - moderately impaired Integumentary Assessment Within Defined Limits except for: Skin Assessment Integrity - see Avatar LDA documentation Patient Lines/Drains/Airways Status Active LDAs Name Placement date Placement time Site Days Peripheral IV 02/11/24 20 gauge;1 3/4 in length Anterior;Right Upper Arm 02/11/241999 -- 10 Fecal Management/Containment System 02/20/242011 -- 1 Rash 02/02/24 2347 groin 02/02/24 2347 -- 19 Wound 02/03/24 Pedal Anterior;Right 02/03/24 0636 Pedal 19 Wound 02/03/24 Ulceration Sacrum 02/03/24 1200 Sacrum 19 Wound 02/05/24 Incision Knee Anterior;Right 02/05/24 1331 Knee 17 Wound 02/05/24 Incision Leg Distal;Upper;Right 02/05/24 1443 Leg 17 Urinary Catheter Urinary Retention (Post void volume consistently greater than 350 mL) 02/07/24 2350 -- 14 Psychosocial Assessment Within Defined Limits except for: Psychosocial Assessment: Observed Patient Behaviors: Anxious/afraid/apprehensive * Nursing Assessment - Humphrey Nagel RN - 02/22/2024 12:30 PM CDT Nursing Assessment Head to Toe Head to Toe Assessment Shift Summary Shift Summary Neurologic/Cognitive Assessment Within Defined Limits except for: HEENT Assessment Within Defined Limits except for: Teeth Symptoms: Tooth/teeth missing Cardiac Within Defined Limits Respiratory Within defined limits Neurovascular Assessment Within Defined Limits except for: Edema Present: Yes Right Lower Extremity: 1+ Left Lower Extremity: 1+ Gastrointestinal Assessment Within Defined Limits except for: Abdominal appearance: Rounded, distended and taut Palpation firm - rigid - Additional GI Signs/Symptoms: abdominal discomfort and abdominal pain Comments: Fecal tube Stool (unmeasured): 1 (02/20/241999) Stool Amount: small (02/21/24 1400) Stool Color: light brown (02/22/24599) Stool Consistency: liquid (02/22/24599) Liquid Stool (mL): 150 mL (02/22/24599) Genitourinary Assessment Within Defined Limits except for: Voiding: Urinary catheter in place Musculoskeletal Assessment Within Defined Limits except for: Musculoskeletal Assessment: General Mobility: Generalized weakness Integumentary Assessment Within Defined Limits except for: Skin Assessment Integrity - see Avatar LDA documentation Patient Lines/Drains/Airways Status Active LDAs Name Placement date Placement time Site Days Peripheral IV 02/11/24 20 gauge;1 3/4 in length Anterior;Right Upper Arm 02/11/241999 -- 10 Fecal Management/Containment System 02/20/242011 -- 1 Rash 02/02/24 2347 groin 02/02/24 2347 -- 19 Wound 02/03/24 Pedal Anterior;Right 02/03/24 0636 Pedal 19 Wound 02/03/24 Ulceration Sacrum 02/03/24 1200 Sacrum 19 Wound 02/05/24 Incision Knee Anterior;Right 02/05/24 1331 Knee 16 Wound 02/05/24 Incision Leg Distal;Upper;Right 02/05/24 1443 Leg 16 Urinary Catheter Urinary Retention (Post void volume consistently greater than 350 mL) 02/07/24 2350 -- 14 Psychosocial Assessment Within Defined Limits except for: Psychosocial Assessment: Observed Patient Behaviors: Anxious/afraid/apprehensive * Nursing Assessment - Gee Mirza RN - 02/22/2024 6:25 AM CDT Nursing Assessment Head to Toe Head to Toe Assessment Shift Summary Patient is A&O x 4, able to make needs known. On RA, no respiratory concerns. HOB elevated for comfort. BP 95/56, fluids encouraged. Pt is q2h turns, able to turn in bed with assist. Abdomen discomfort when repositioning, round, distended. On clear liquid diet. drinking fluids, eating ice, tolerated, no N/V reported. Cano in place, patent. Rectal tube in place, draining brown loose stool, green tube [id number] at 45ml , Flushed 30ml in purple tube. Dressing to RLE changed, Bladimir-wrap in place, NWB, C/D/I; CMS intact. Shower cap provided as requested, stated will do in am. To continue monitor. Neurologic/Cognitive Within Defined Limits HEENT Assessment Within Defined Limits except for: Teeth Symptoms: Tooth/teeth missing Cardiac Within Defined Limits Respiratory Within defined limits Neurovascular Assessment Within Defined Limits except for: Neurovascular LLE Sensation: Tenderness and sensation absent Neurovascular RLE Sensation: Tenderness and sensation absent Edema Present: Yes Right Lower Extremity: 3+ Left Lower Extremity: 3+ Comments: Bilateral toes Gastrointestinal Assessment Within Defined Limits except for: Abdominal appearance: Distended, taut and rounded Additional GI Signs/Symptoms: fecal incontinence Comments: Rectal tube present Stool (unmeasured): 1 (02/20/241999) Stool Amount: small (02/21/24 1400) Stool Color: brown (02/21/24 1400) Stool Consistency: loose (02/21/24 1400) Liquid Stool (mL): 50 mL (02/21/24 1400) Genitourinary Assessment Within Defined Limits except for: Voiding: Urinary catheter in place Musculoskeletal Assessment Within Defined Limits except for: Musculoskeletal Assessment: Joint Tenderness right - hip and knee Range of Motion: RLE - severely impaired Integumentary Assessment Within Defined Limits except for: Skin Assessment Integrity - see Avatar LDA documentation Integrity Location - rt leg, sacrum Patient Lines/Drains/Airways Status Active LDAs Name Placement date Placement time Site Days Peripheral IV 02/11/24 20 gauge;1 3/4 in length Anterior;Right Upper Arm 02/11/241999 -- 10 Fecal Management/Containment System 02/20/242011 -- 1 Rash 02/02/24 2347 groin 02/02/24 2347 -- 19 Wound 02/03/24 Pedal Anterior;Right 02/03/24 0636 Pedal 18 Wound 02/03/24 Ulceration Sacrum 02/03/24 1200 Sacrum 18 Wound 02/05/24 Incision Knee Anterior;Right 02/05/24 1331 Knee 16 Wound 02/05/24 Incision Leg Distal;Upper;Right 02/05/24 1443 Leg 16 Urinary Catheter Urinary Retention (Post void volume consistently greater than 350 mL) 02/07/24 2350 -- 14 Psychosocial Within Defined Limits * Nursing Assessment - Amada Hogan RN - 02/21/2024 9:06 PM CDT Nursing Assessment Head to Toe Head to Toe Assessment Shift Summary Pt is alert and oriented x4, VSS except for Bp remains hypotensive. 100% on RA. C/o pain in the RLE, stomach and knee, gave PRN oxy with partial relief. Incontinent of bowel, rectal tube in place with small leakage. Provided incontinent cares. Cano in place with no issue voiding. Turning every 2hr. On bedrest and NWB on RLE. Will continue with POC. Amada Hogan RN, 02/21/2024 9:21 PM Neurologic/Cognitive Within Defined Limits HEENT Within Defined Limits Cardiac Within Defined Limits Respiratory Within defined limits Neurovascular Assessment Within Defined Limits except for: Neurovascular LLE Sensation: Sensation absent Neurovascular RLE Sensation: Sensation absent Edema Present: Yes Right Lower Extremity: 3+ Left Lower Extremity: 2+ Gastrointestinal Assessment Within Defined Limits except for: Abdominal appearance: Rounded and distended Additional GI Signs/Symptoms: fecal incontinence Comments: Rectal tube Stool (unmeasured): 1 (02/20/241999) Stool Amount: small (02/21/24 1400) Stool Color: brown (02/21/24 1400) Stool Consistency: loose (02/21/24 1400) Liquid Stool (mL): 50 mL (02/21/24 1400) Genitourinary Assessment Within Defined Limits except for: Voiding: Urinary catheter in place Musculoskeletal Assessment Within Defined Limits except for: Musculoskeletal Assessment: General Mobility: Moderately impaired Range of Motion: RLE - moderately impaired Integumentary Assessment Within Defined Limits except for: Skin Assessment Integrity - see Avatar LDA documentation Patient Lines/Drains/Airways Status Active LDAs Name Placement date Placement time Site Days Peripheral IV 02/11/24 20 gauge;1 3/4 in length Anterior;Right Upper Arm 02/11/241999 -- 10 Fecal Management/Containment System 02/20/242011 -- 1 Rash 02/02/24 2347 groin 02/02/24 2347 -- 18 Wound 02/03/24 Pedal Anterior;Right 02/03/24 0636 Pedal 18 Wound 02/03/24 Ulceration Sacrum 02/03/24 1200 Sacrum 18 Wound 02/05/24 Incision Knee Anterior;Right 02/05/24 1331 Knee 16 Wound 02/05/24 Incision Leg Distal;Upper;Right 02/05/24 1443 Leg 16 Urinary Catheter Urinary Retention (Post void volume consistently greater than 350 mL) 02/07/24 2350 -- 13 Psychosocial Within Defined Limits * Nursing Assessment - Gloria Eng RN - 02/21/2024 10:36 AM CDT Nursing Assessment Head to Toe Head to Toe Assessment Shift Summary Pt is A&O x 4, able to make needs known. On RA, no respiratory concerns. HOB elevated 40-90 degrees. Hypotensive, provider aware, fluids encouraged. Pt is q2h turns, able to move in bed. Abdomen discomfort when repositioning, round, distended. Decreased appetite, on clear liquid diet. drinking fluids, eating ice, takes pills whole, tolerated, no N/V reported. Cano in place, patent. Nystatin powder applied to groin area. Rectal tube in place, draining brown loose stool, output of 50ml. Tubedeflated 45ml via green tube, inflated 30ml in purple tube. Dressing to RLE changed, Blaidmir-wrap in place, NWB, C/D/I; CMS intact. Pt stable in bed, visited at bedside. Pt declined new order, narcan, order discontinued. Will continue to monitor and follow POC. Gloria Eng RN, 02/21/2024 3:56 PM Neurologic/Cognitive Within Defined Limits HEENT Assessment Within Defined Limits except for: Teeth Symptoms: Tooth/teeth missing Cardiac Within Defined Limits Respiratory Within defined limits Neurovascular Assessment Within Defined Limits except for: Neurovascular LLE Sensation: Tenderness and sensation absent Neurovascular RLE Sensation: Tenderness and sensation absent Edema Present: Yes Right Lower Extremity: 3+ Left Lower Extremity: 3+ Comments: Bilateral toes Gastrointestinal Assessment Within Defined Limits except for: Abdominal appearance: Distended, taut and rounded Additional GI Signs/Symptoms: fecal incontinence Comments: Rectal tube present Stool (unmeasured): 1 (02/20/241999) Stool Amount: small (02/20/241999) Stool Color: brown (02/20/241999) Stool Consistency: loose (02/20/241999) Genitourinary Assessment Within Defined Limits except for: Voiding: Urinary catheter in place Musculoskeletal Assessment Within Defined Limits except for: Musculoskeletal Assessment: Joint Tenderness right - hip and knee Range of Motion: RLE - severely impaired Integumentary Assessment Within Defined Limits except for: Skin Assessment Integrity - see Avatar LDA documentation Integrity Location - rt leg, sacrum Patient Lines/Drains/Airways Status Active LDAs Name Placement date Placement time Site Days Peripheral IV 02/11/24 20 gauge;1 3/4 in length Anterior;Right Upper Arm 02/11/241999 -- 9 Fecal Management/Containment System 02/20/242011 -- less than 1 Rash 02/02/24 2347 groin 02/02/24 2347 -- 18 Wound 02/03/24 Pedal Anterior;Right 02/03/24 0636 Pedal 18 Wound 02/03/24 Ulceration Sacrum 02/03/24 1200 Sacrum 17 Wound 02/05/24 Incision Knee Anterior;Right 02/05/24 1331 Knee 15 Wound 02/05/24 Incision Leg Distal;Upper;Right 02/05/24 1443 Leg 15 Urinary Catheter Urinary Retention (Post void volume consistently greater than 350 mL) 02/07/24 2350 -- 13 Psychosocial Assessment Within Defined Limits except for: Psychosocial Assessment: Observed Patient Behaviors: Frustrated * Interval Note Provider - Yessy Garza MD - 02/21/2024 2:41 AM CDT Brief Surgery Progress Note Serial Abdominal Exam S: patient sleeping comfortably on arrival; slightly confused when awoken O: Filed Vitals: 02/21/24 0002 BP: 85/50 Pulse: 70 Resp: 16 Temp: 37.2 ??C (99 ??F) Weight: Gen: laying in bed; NAD Abdomen: significant distension similar to prior with tympany to percussion in midline; nontender and non-peritonitic A/P -- No indication for surgical intervention at this time -- Continue NPO -- Surgery will continue to monitor Yessy Garza MD, 02/21/2024 2:41 AM General Surgery, PGY-1 [employer] * Nursing Assessment - Jacob Tello RN - 02/21/2024 2:04 AM CDT Nursing Assessment Head to Toe Head to Toe Assessment Shift Summary [id number] Alert and oriented x4. Has pain to right leg and abdomen, prn oxycodone given, asleep on reassessment. Rectal tube in place with some output in bag but liquid stool leaking around the tube.Rectal tube cares per order. Cano catheter in place with concentrated urine present in drainage bag. Reports no sensation in toes. They are warm to the touch with good capillary refill. Right leg dressings clean dry and intact. Barrier cream applied to wound on coccyx. Turned and repositioned as tolerated. Slept throughout shift. Neurologic/Cognitive Within Defined Limits HEENT Within Defined Limits Cardiac Within Defined Limits Respiratory Within defined limits Neurovascular Assessment Within Defined Limits except for: Neurovascular LLE Sensation: Sensation absent Neurovascular RLE Sensation: Sensation absent Comments: Bilateral toes Gastrointestinal Assessment Within Defined Limits except for: Abdominal appearance: Distended and taut Palpation firm - Additional GI Signs/Symptoms: fecal incontinence Comments: Rectal tube Stool (unmeasured): 1 (02/20/241999) Stool Amount: small (02/20/241999) Stool Color: brown (02/20/241999) Stool Consistency: loose (02/20/241999) Genitourinary Assessment Within Defined Limits except for: Voiding: Urinary catheter in place Musculoskeletal Assessment Within Defined Limits except for: Musculoskeletal Assessment: General Mobility: Generalized weaknessJoint Tenderness right - hip and knee Range of Motion: RLE - severely impaired Integumentary Assessment Within Defined Limits except for: Skin Assessment Integrity - see Avatar LDA documentation Integrity Location - right leg, back side Patient Lines/Drains/Airways Status Active LDAs Name Placement date Placement time Site Days Peripheral IV 02/11/24 20 gauge;1 3/4 in length Anterior;Right Upper Arm 02/11/241999 -- 9 Fecal Management/Containment System 02/20/242011 -- less than 1 Rash 02/02/24 2347 groin 02/02/24 2347 -- 18 Wound 02/03/24 Pedal Anterior;Right 02/03/24 0636 Pedal 17 Wound 02/03/24 Ulceration Sacrum 02/03/24 1200 Sacrum 17 Wound 02/05/24 Incision Knee Anterior;Right 02/05/24 1331 Knee 15 Wound 02/05/24 Incision Leg Distal;Upper;Right 02/05/24 1443 Leg 15 Urinary Catheter Urinary Retention (Post void volume consistently greater than 350 mL) 02/07/24 2350 -- 13 Psychosocial Assessment Within Defined Limits except for: Psychosocial Assessment: Observed Patient Behaviors: Frustrated * Cross Cover - Nikos Ferrer MD - 02/20/2024 9:40 PM CDT NPO status ordered per GI recs. Maintenance LR ordered. Nikos Ferrer MD, 02/20/2024 9:41 PM * Nursing Assessment - Thalia Miranda RN - 02/20/2024 8:40 PM CDT Nursing Assessment Head to Toe Head to Toe Assessment Shift Summary Pt irritable, restless, apprehensive, afraid and sad this shift; appears tearful as well; A/O x 4, able to communicate her needs; reported feelings of sadness and being afraid of the worse to happen to her; stayed with pt and offered words of encouragement. Pt denies chest pain, normal breath sounds; abdomen is large and distended; c/o abdominal pain and discomfort; denies N/V; pt received PRN pain medication with partial relief; also repositioned frequently; out of the unit on two occasions for procedures; Pt is eating and drinking well; received suppository this shift; has new rectal tube in place; cano catheter draining clear mili urine; all cares completed. Took all scheduled meds; Pt is currently NPO for abdominal procedure; on LR continuous at 75ml/hr; pt is tolerating fluids well. Will continue with POC. Neurologic/Cognitive Within Defined Limits HEENT Within Defined Limits Cardiac Within Defined Limits Respiratory Within defined limits Neurovascular Assessment Within Defined Limits except for: Neurovascular RLE Temperature: Cool Edema Present: Yes Right Lower Extremity: 2+ Gastrointestinal Assessment Within Defined Limits except for: Abdominal appearance: Distended Bowel Sounds hypoactive - all quadrants Additional GI Signs/Symptoms: abdominal pain, abdominal discomfort and fecal incontinence Comments: Rectal tube in place Stool (unmeasured): 1 (02/20/241999) Stool Amount: small (02/20/241999) Stool Color: brown (02/20/241999) Stool Consistency: loose (02/20/241999) Genitourinary Assessment Within Defined Limits except for: Voiding: Urinary catheter in place Musculoskeletal Assessment Within Defined Limits except for: Musculoskeletal Assessment: General Mobility: Generalized weakness and moderately impaired Range of Motion: LLE - moderately impaired RLE - severely impaired and brace/immobilizer/splint/sling/cast Integumentary Assessment Within Defined Limits except for: Skin Assessment Moisture - dry Integrity - see Avatar LDA documentation Patient Lines/Drains/Airways Status Active LDAs Name Placement date Placement time Site Days Peripheral IV 02/11/24 20 gauge;1 3/4 in length Anterior;Right Upper Arm 02/11/241999 -- 9 Fecal Management/Containment System 02/20/242011 -- less than 1 Rash 02/02/24 2347 groin 02/02/24 2347 -- 17 Wound 02/03/24 Pedal Anterior;Right 02/03/24 0636 Pedal 17 Wound 02/03/24 Ulceration Sacrum 02/03/24 1200 Sacrum 17 Wound 02/05/24 Incision Knee Anterior;Right 02/05/24 1331 Knee 15 Wound 02/05/24 Incision Leg Distal;Upper;Right 02/05/24 1443 Leg 15 Urinary Catheter Urinary Retention (Post void volume consistently greater than 350 mL) 02/07/24 2350 -- 12 Psychosocial Assessment Within Defined Limits except for: Psychosocial Assessment: Observed Patient Behaviors: Anxious/afraid/apprehensive, restless, irritable and crying Verbalized Emotional State: Sadness * Nursing Focused Reassessment - Radha Otto RN - 02/20/2024 8:14 PM CDT Rectal tube inserted. Loose stool noted. Excoriated buttocks noted. Barrier cream applied to buttocks. Assisted by 2 nurses. MD visited at bedside. Patient is alert and oriented x 4. * Cross Cover - Autumn Jerome MD - 02/20/2024 5:52 PM CDT Repeat Xray demonstrates marked distension of the sigmoid colon and GI consult and CT abdomen is recommended. GI paged and notified of findings. CT abdomen ordered. GI recommends checking electrolytes and optimizing them, placing rectal tube, but first give suppository, and consult GI. Rectal tube ordered and notified nurse to give suppository. Surgery team paged for consult. Electrolytes ordered. Surgery consult resident, said that the patient's presentation is most consistent with [place] and recommend urgent GI consultation for decompression. Notified GI of the recommendations. GI attendingspoke to the radiologist and was told imaging finding were similar to 02/10. Dr. Hendrickson spoke with thesurgery attending directly and said that he will be notified by the surgery attending if colonoscopy is needed. Autumn Jerome MD, 02/20/2024 6:41 PM * Nursing Assessment - Gloria Eng RN - 02/20/2024 12:27 PM CDT Nursing Assessment Head to Toe Head to Toe Assessment Shift Summary Pt is A&O x 4, able to make needs known. On RA, no respiratory concerns. HOB elevated 40-90 degrees. Hypotensive, provider aware, fluids encouraged. Pt is q2h turns, able to move in bed. Pt reported pain to RLE, managed with PRN Oxycodne. abdomen discomfort, round, distended. Decreased appetite, drinking fluids, takes pills whole, tolerated, no N/V reported. Miralax, Senna, Suppository administered, result pending. Cano in place, patent. Nystatin powder applied to groin area. Dressing to RLE changed, Bladimir-wrap in place, NWB, C/D/I; CMS intact. Pt stable in bed, Will continue to monitor and follow POC. Gloria Eng RN, 02/20/2024 5:01 PM Neurologic/Cognitive Within Defined Limits HEENT Assessment Within Defined Limits except for: Teeth Symptoms: Tooth/teeth missing Cardiac Within Defined Limits Respiratory Within defined limits Neurovascular Assessment Within Defined Limits except for: Neurovascular RLE Sensation: Tenderness Edema Present: Yes Gastrointestinal Gastrointestinal Stool (unmeasured): 1 (02/18/241958) Stool Amount: small (02/20/24633) Stool Color: brown (02/20/24633) Stool Consistency: loose (02/20/24 0634) Genitourinary Genitourinary Musculoskeletal Musculoskeletal Integumentary Integumentary Patient Lines/Drains/Airways Status Active LDAs Name Placement date Placement time Site Days Peripheral IV 02/11/24 20 gauge;1 3/4 in length Anterior;Right Upper Arm 02/11/241999 -- 8 Rash 02/02/24 2347 groin 02/02/24 2347 -- 17 Wound 02/03/24 Pedal Anterior;Right 02/03/24 0636 Pedal 17 Wound 02/03/24 Ulceration Sacrum 02/03/24 1200 Sacrum 17 Wound 02/05/24 Incision Knee Anterior;Right 02/05/24 1331 Knee 14 Wound 02/05/24 Incision Leg Distal;Upper;Right 02/05/24 1443 Leg 14 Urinary Catheter Urinary Retention (Post void volume consistently greater than 350 mL) 02/07/24 2350 -- 12 Psychosocial Psychosocial * Nursing Assessment - Hector Carrillo RN - 02/20/2024 5:21 AM CDT Nursing Assessment Head to Toe Head to Toe Assessment Shift Summary Patient alert, oriented x4, able to make needs known. On room air. Low BP. Cross Cover Team paged. Albumin IV infused as ordered. CMS intact to RLE. Dressing on right knee clean, dry and intact. BLADIMIR wrap to right foot intact. Right hip incision clean, dry and open to air. Complains of pain to RLE. PRN oxycodone given as ordered. Cano in place. Incontinent of BM, small loose BM this shift. Turnedand repositioned Hcetor Carrillo RN, 02/20/2024 6:57 AM . Neurologic/Cognitive Within Defined Limits HEENT Within Defined Limits Cardiac Within Defined Limits Respiratory Within defined limits Neurovascular Assessment Within Defined Limits except for: Neurovascular RLE Sensation: Tenderness Edema Present: Yes Comments: Generalized edema Gastrointestinal Assessment Within Defined Limits except for: Palpation firm - all quadrants Additional GI Signs/Symptoms: fecal incontinence, abdominal discomfort and guarding Comments: Acities Stool (unmeasured): 1 (02/18/24 195) Stool Amount: small (02/19/24 1600) Stool Color: brown (02/19/24 1600) Stool Consistency: loose (02/19/24 1600) Genitourinary Assessment Within Defined Limits except for: Voiding: Urinary catheter in place Musculoskeletal Assessment Within Defined Limits except for: Musculoskeletal Assessment: General Mobility: Moderately impairedJoint Tenderness right - foot Range of Motion: General - RLE - brace/immobilizer/splint/sling/cast Integumentary Assessment Within Defined Limits except for: Skin Assessment Integrity - see Avatar LDA documentation and rashes Integrity Location - groins Comments: Pressure ulcer on sacrum, rashes, wounds on RLE. Patient Lines/Drains/Airways Status Active LDAs Name Placement date Placement time Site Days Peripheral IV 02/11/24 20 gauge;1 3/4 in length Anterior;Right Upper Arm 02/11/241999 -- 8 Rash 02/02/24 2347 groin 02/02/247 -- 17 Wound 02/03/24 Pedal Anterior;Right 02/03/24 0636 Pedal 16 Wound 02/03/24 Ulceration Sacrum 02/03/24 1200 Sacrum 16 Wound 02/05/24 Incision Knee Anterior;Right 02/05/24 1331 Knee 14 Wound 02/05/24 Incision Leg Distal;Upper;Right 02/05/24 1443 Leg 14 Urinary Catheter Urinary Retention (Post void volume consistently greater than 350 mL) 02/07/24 2350 -- 12 Psychosocial Within Defined Limits * Cross Cover - Tomas Vasquez MD - 02/20/2024 12:27 AM CDT Paged by RN re hypotension of 80/37, pt is asymptomatic. Hx of decompensated cirrhosis and underwent large-volume paracentesis on 02/18 afternoon. Per IR notes, received 25g albumin per protocol during and after procedure (unable to see this in DEC) but also notes leaving the post-procedure area AMA. Will order albumin and monitor pressures overnight. Discussed plan with RN. May consider midodrineif not responding to volume expansion. -25g 25% albumin x 1 Tomas Vasquez MD, 02/20/2024 12:27 AM * Nursing Assessment - Navid-Thalia Machado RN - 02/19/2024 8:26 PM CDT Nursing Assessment Head to Toe Head to Toe Assessment Shift Summary Pleasant this shift; calm and cooperative with cares; communicates well and can determine her needs; pain managed well this shift; denies chest pain or any chest discomfort; no SOB noted; lung soundsclear but diminished in posterior bilateral lobes; pt has IS at the bedside and uses it appropriately; used this shift. Pt had paracentesis today, returned to unit at the change of shift; puncture site at RUQ, no bleeding noted, dressing in place; C/D/I; abdomen still large but soft and tender to touch; denies N/V; ate 100% of meals; had adequate fluid intake; took all scheduled meds; takes meds whole, one by one with water; repositioned every two hours and per pt's request; Urethra catheter in place and draining clear mili urine; cares completed; new STAT lock placed in left upper thigh; had a small loose stool; no acute medical concern this shift; will monitor and follow POC. Neurologic/Cognitive Within Defined Limits HEENT Within Defined Limits Cardiac Within Defined Limits Respiratory Within defined limits Neurovascular Assessment Within Defined Limits except for: Neurovascular RLE Temperature: Cool Edema Present: Yes Comments: Generalized edema r/t wounds Gastrointestinal Assessment Within Defined Limits except for: Palpation firm - all quadrants Bowel Sounds hypoactive - Additional GI Signs/Symptoms: abdominal discomfort and guarding Comments: Ascites Stool (unmeasured): 1 (02/18/24 195) Stool Amount: small (02/19/24 1600) Stool Color: brown (02/19/24 1600) Stool Consistency: loose (02/19/24 1600) Genitourinary Assessment Within Defined Limits except for: Voiding: Urinary catheter in place Musculoskeletal Assessment Within Defined Limits except for: Musculoskeletal Assessment: General Mobility: Moderately impairedJoint Tenderness right - foot Range of Motion: RLE - moderately impaired and brace/immobilizer/splint/sling/cast Integumentary Assessment Within Defined Limits except for: Skin Assessment Integrity - rashes and see Avatar LDA documentation Integrity Location - bilateral groin Comments: Wound on RLE, pressure ulcer at sacrum Patient Lines/Drains/Airways Status Active LDAs Name Placement date Placement time Site Days Peripheral IV 02/11/24 20 gauge;1 3/4 in length Anterior;Right Upper Arm 02/11/241999 -- 8 Rash 02/02/24 2347 groin 02/02/24 2347 -- 16 Wound 02/03/24 Pedal Anterior;Right 02/03/24 0636 Pedal 16 Wound 02/03/24 Ulceration Sacrum 02/03/24 1200 Sacrum 16 Wound 02/05/24 Incision Knee Anterior;Right 02/05/24 1331 Knee 14 Wound 02/05/24 Incision Leg Distal;Upper;Right 02/05/24 1443 Leg 14 Urinary Catheter Urinary Retention (Post void volume consistently greater than 350 mL) 02/07/24 2350 -- 11 Psychosocial Assessment Within Defined Limits except for: Psychosocial Assessment: Observed Patient Behaviors: Sad/tearful Verbalized Emotional State: Hopefulness * Nursing Assessment - Gloria Eng RN - 02/19/2024 11:58 AM CDT Nursing Assessment Head to Toe Head to Toe Assessment Shift Summary Pt is A&O x 4, able to make needs known. Pt on RA, no respiratory distress noted. HOB elevated 40-90 degrees. BP soft, fluids encouraged. Pt is q2h turns, able to move in bed. Pt reported pain toParacentesis drain site. Abdomen round distended, schedule for drain at 13:00. Pt is eating, drinking fluids, takes pills whole, tolerated, no N/V reported. Cano in place, patent, Incontinent of BM.Interdry cloth to abdominal folds, nystatin powder applied. Bladimir-wrap to RLE in place, NWB to RLE, C/D/I, pt reported numbness, CMS intact. Pt stable in bed, family visited at bedside. Will continue to monitor and follow POC. Pt off unit to paracentesis at 13:45. Gloria Eng RN, 02/19/2024 12:36 PM Neurologic/Cognitive Within Defined Limits HEENT Within Defined Limits Cardiac Within Defined Limits Respiratory Within defined limits Neurovascular Assessment Within Defined Limits except for: Neurovascular LLE Sensation: Tenderness Neurovascular RLE Sensation: Tenderness Edema Present: Yes Right Lower Extremity: 3+ Left Lower Extremity: 3+ Comments: 5th toe Gastrointestinal Assessment Within Defined Limits except for: Abdominal appearance: Rounded and distended Bowel Sounds hyperactive - all quadrants Additional GI Signs/Symptoms: abdominal discomfort Stool (unmeasured): 1 (02/18/241958) Stool Amount: large (02/18/241958) Stool Color: brown (02/18/241958) Stool Consistency: loose (02/18/241958) Genitourinary Assessment Within Defined Limits except for: Voiding: Urinary catheter in place Musculoskeletal Assessment Within Defined Limits except for: Musculoskeletal Assessment: General Mobility: Severely impaired Integumentary Assessment Within Defined Limits except for: Skin Assessment Integrity - see Avatar LDA documentation Patient Lines/Drains/Airways Status Active LDAs Name Placement date Placement time Site Days Peripheral IV 02/11/24 20 gauge;1 3/4 in length Anterior;Right Upper Arm 02/11/241999 -- 7 Rash 02/02/24 2347 groin 02/02/24 2347 -- 16 Wound 02/03/24 Pedal Anterior;Right 02/03/24 0636 Pedal 16 Wound 02/03/24 Ulceration Sacrum 02/03/24 1200 Sacrum 15 Wound 02/05/24 Incision Knee Anterior;Right 02/05/24 1331 Knee 13 Wound 02/05/24 Incision Leg Distal;Upper;Right 02/05/24 1443 Leg 13 Urinary Catheter Urinary Retention (Post void volume consistently greater than 350 mL) 02/07/24 2350 -- 11 Psychosocial Within Defined Limits * Nursing Assessment - Noni Caba RN - 02/19/2024 6:31 AM CDT Nursing Assessment Head to Toe Head to Toe Assessment Shift Summary Patient alert and oriented x4. On RA. Denies sob, chest pain, n/v. Abdomin distended. Assist of twoturn and reposition. Incontinent of B/B. Cano in place, draining mili urine without difficulty. Had large light brown loose stool x 1. Dressing to RLE CDI . CMS intact, able to wiggles toes. Intentional rounding provided. Micro turn most of the shift. Patient pleasant and cooperative with cares, slept well during the shift. Will continue to monitor. Neurologic/Cognitive Within Defined Limits HEENT Within Defined Limits Cardiac Within Defined Limits Respiratory Within defined limits Neurovascular Assessment Within Defined Limits except for: Neurovascular LLE Sensation: Tenderness Neurovascular RLE Sensation: Tenderness Edema Present: Yes Generalized: 4+ Right Lower Extremity: 3+ Left Lower Extremity: 3+ Gastrointestinal Assessment Within Defined Limits except for: Abdominal appearance: Distended Additional GI Signs/Symptoms: diarrhea Stool (unmeasured): 1 (02/18/241958) Stool Amount: large (02/18/241958) Stool Color: brown (02/18/241958) Stool Consistency: loose (02/18/241958) Genitourinary Assessment Within Defined Limits except for: Voiding: Urinary catheter in place Musculoskeletal Assessment Within Defined Limits except for: Musculoskeletal Assessment: General Mobility: Severely impaired Integumentary Assessment Within Defined Limits except for: Skin Assessment Integrity - see Avatar LDA documentation Patient Lines/Drains/Airways Status Active LDAs Name Placement date Placement time Site Days Peripheral IV 02/11/24 20 gauge;1 3/4 in length Anterior;Right Upper Arm 02/11/241999 -- 7 Rash 02/02/24 2347 groin 02/02/24 2347 -- 16 Wound 02/03/24 Pedal Anterior;Right 02/03/24 0636 Pedal 15 Wound 02/03/24 Ulceration Sacrum 02/03/24 1200 Sacrum 15 Wound 02/05/24 Incision Knee Anterior;Right 02/05/24 1331 Knee 13 Wound 02/05/24 Incision Leg Distal;Upper;Right 02/05/24 1443 Leg 13 Urinary Catheter Urinary Retention (Post void volume consistently greater than 350 mL) 02/07/24 2350 -- 11 Psychosocial Within Defined Limits * Cross Cover - Sascha Cavazos PA-C - 02/18/2024 10:36 PM CDT Na improved from 125 this afternoon to current value of 126. Continue current cares. Sascha Cavazos PA-C, 02/18/2024 10:36 PM * Nursing Assessment - Bethanie Leal RN - 02/18/2024 4:41 PM CDT Nursing Assessment Head to Toe Head to Toe Assessment Shift Summary Shift Summary [id number] Received the food she ordered for supper but only ate about 50% of it. Declined the last turned andwants to stay supine for now. Cano in place and samples sent per lab orders. 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 Calazime applied to the buttocks. IV albumin started, per order. 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 Gastrointestinal Assessment Within Defined Limits except for: Abdominal appearance: Rounded and distended Stool (unmeasured): 1 (02/18/24238) Stool Amount: large (02/18/24238) Stool Color: brown (02/18/24238) Stool Consistency: loose (02/18/24238) Genitourinary Assessment Within Defined Limits except for: Voiding: Urinary catheter in place Musculoskeletal Assessment Within Defined Limits except for: Musculoskeletal Assessment: General Mobility: Moderately impairedJoint Tenderness right - hip Range of Motion: RLE - moderately impaired Integumentary Assessment Within Defined Limits except for: Skin Assessment Integrity - see Avatar LDA documentation Patient Lines/Drains/Airways Status Active LDAs Name Placement date Placement time Site Days Peripheral IV 02/11/24 20 gauge;1 3/4 in length Anterior;Right Upper Arm 02/11/241999 -- 6 Rash 02/02/24 2347 groin 02/02/242346 -- 15 Wound 02/03/24 Pedal Anterior;Right 02/03/24 0636 Pedal 15 Wound 02/03/24 Ulceration Sacrum 02/03/24 1200 Sacrum 15 Wound 02/05/24 Incision Knee Anterior;Right 02/05/24 1331 Knee 13 Wound 02/05/24 Incision Leg Distal;Upper;Right 02/05/24 1443 Leg 13 Urinary Catheter Urinary Retention (Post void volume consistently greater than 350 mL) 02/07/24 2350 -- 10 Psychosocial Within Defined Limits * Utilization Management - Annalise Guo RN - 02/18/2024 1:14 PM CDT Per current clinical documentation and services patient no longer meets IP level of care, however; per PT, Patient continues to require max to total assist of 2 for return to supine. Continuing to recommend post-acute placement at discharge. Patient will continue to benefit from acute PT intervention to address her deficits. * Nursing Assessment - Bethanie Leal RN - 02/18/2024 12:21 PM CDT Nursing Assessment Head to Toe Head to Toe Assessment Shift Summary Shift Summary Eating ice chips throughout the shift. Assist of two for turns. Not able to tolerate flat supine due to the weight of her abdomen. Does tolerate having a pillow under her hip to offload pressure. Cano catheter in place. Eating about 75% of her meal trays. Her meal trays are being ordered for her, as she is selective about what she eats. Medicated with oxycodone prior to the right leg dressing change. The long bladimir wrap was removed from the right leg as it was causing significant dents in her skin. An island dressing was place over the right knee incision the the traction pins are covered due to some slight oozing. The foot was wrapped with quentin and an bladimir wrap. Keeps a bag of personal items at the bedside. Bethanie Leal RN, 02/18/2024 4:45 PM Neurologic/Cognitive Within Defined Limits HEENT Within Defined Limits Cardiac Within Defined Limits Respiratory Within defined limits Neurovascular Assessment Within Defined Limits except for: Neurovascular LUE Sensation: Chronic and pins and needles Neurovascular RUE Sensation: Chronic and pins and needles Neurovascular LLE Sensation: Chronic and pins and needles Neurovascular RLE Sensation: Tenderness, chronic and pins and needles Edema Present: Yes Right Lower Extremity: 2+ Left Lower Extremity: 2+ Perineal: 2+ Comments: Chronic neuropathy in all extremities Gastrointestinal Assessment Within Defined Limits except for: Abdominal appearance: Rounded Stool (unmeasured): 1 (02/18/24238) Stool Amount: large (02/18/24238) Stool Color: brown (02/18/24238) Stool Consistency: loose (02/18/24238) Genitourinary Assessment Within Defined Limits except for: Voiding: Urinary catheter in place Musculoskeletal Assessment Within Defined Limits except for: Musculoskeletal Assessment: General Mobility: Moderately impairedJoint Tenderness right - hip Range of Motion: RLE - moderately impaired Integumentary Assessment Within Defined Limits except for: Skin Assessment Integrity - see Avatar LDA documentation Patient Lines/Drains/Airways Status Active LDAs Name Placement date Placement time Site Days Peripheral IV 02/11/24 20 gauge;1 3/4 in length Anterior;Right Upper Arm 02/11/241999 -- 6 Rash 02/02/24 2347 groin 02/02/24 2347 -- 15 Wound 02/03/24 Pedal Anterior;Right 02/03/24 0636 Pedal 15 Wound 02/03/24 Ulceration Sacrum 02/03/24 1200 Sacrum 15 Wound 02/05/24 Incision Knee Anterior;Right 02/05/24 1331 Knee 12 Wound 02/05/24 Incision Leg Distal;Upper;Right 02/05/24 1443 Leg 12 Urinary Catheter Urinary Retention (Post void volume consistently greater than 350 mL) 02/07/24 2350 -- 10 Psychosocial Within Defined Limits * Nursing Assessment - Bernice Samayoa RN - 02/18/2024 6:09 AM CDT Nursing Assessment Head to Toe Head to Toe Assessment Shift Summary Shift Summary [id number] Pt is AO x4, pleasant, liable. Eats and drinks without issue, takes meds whole with thin liquids. I&O's updated. Catheter draining clear mili output. Pain managed with oxy q4 PRN. Nystatin, interdry cloth, and creams applied to red groin folds. Sacrum intact, red. Dressing to surgical site of R femur intact, old drainage, dry. CMS intact at baseline throughout night. Turns every 2 hours, likes to have HOB up at 45-90 throughout night. Abdomin round, distended firm. Large looses stools x2 tonight, bowel meds held for PM meds. Uses call light, makes needs known. Neurologic/Cognitive Assessment Within Defined Limits except for: Mood/Behavior: Labile HEENT Within Defined Limits Cardiac Within Defined Limits Respiratory Within defined limits Neurovascular Assessment Within Defined Limits except for: Neurovascular LLE Sensation: Chronic and sensation decreased Neurovascular RLE Sensation: Chronic and sensation decreased Edema Present: Yes Left Lower Extremity: 2+ Gastrointestinal Assessment Within Defined Limits except for: Abdominal appearance: Rounded and distended Palpation firm - all quadrants Additional GI Signs/Symptoms: diarrhea Stool (unmeasured): 1 (02/18/24238) Stool Amount: large (02/18/24238) Stool Color: brown (02/18/24238) Stool Consistency: loose (02/18/24238) Genitourinary Assessment Within Defined Limits except for: Voiding: Urinary catheter in place Musculoskeletal Assessment Within Defined Limits except for: Musculoskeletal Assessment: Range of Motion: LLE - moderately impaired RLE - severely impaired Integumentary Assessment Within Defined Limits except for: Skin Assessment Integrity - see Avatar LDA documentation Patient Lines/Drains/Airways Status Active LDAs Name Placement date Placement time Site Days Peripheral IV 02/11/24 20 gauge;1 3/4 in length Anterior;Right Upper Arm 02/11/241999 -- 6 Rash 02/02/24 2347 groin 02/02/247 -- 15 Wound 02/03/24 Pedal Anterior;Right 02/03/24 0636 Pedal 14 Wound 02/03/24 Ulceration Sacrum 02/03/24 1200 Sacrum 14 Wound 02/05/24 Incision Knee Anterior;Right 02/05/24 1331 Knee 12 Wound 02/05/24 Incision Leg Distal;Upper;Right 02/05/24 1443 Leg 12 Urinary Catheter Urinary Retention (Post void volume consistently greater than 350 mL) 02/07/24 2350 -- 10 Psychosocial Assessment Within Defined Limits except for: Psychosocial Assessment: Observed Patient Behaviors: Pleasant and labile * Nursing Assessment - Nilay Darden, GEOFF - 02/17/2024 1:10 PM CDT Nursing Assessment Head to Toe Head to Toe Assessment Shift Summary [id number] Alert and oriented, able to use call light to report needs, vs wnl on ra, reported 7/10 aching painto LLE, oxycodone and tylenol given for pain relief, cms intact, wiggle toes, LLE elevated on pillows, aced wrap dressing c/d/I, pt teary in request to have anything to eat, this teletypewriter installer educated pt that she is on regular/ 2 gm sodium diet, pt agreed to eat the meal per order, T&R, urinary catheter draining yellow clear urine, catheter cares completed, distended abd, denied pain to abd, no acute changes, intentional rounding, will continue to monitor. Filed Vitals: 02/17/24 0928 BP: 92/50 Pulse: 79 Resp: 18 Pairer offered to do dressing change, pt was agitated reporting she did not get the correct dinner,refused dressing change after it was offered twice, 1 loose stool, oxycodone for pain, no acute changes, intentional rounding, will continue to monitor. Nilay Darden, RN, 02/17/2024 7:39 PM Assessment Within Defined Limits except for: Mood/Behavior: Sad and agitated HEENT Within Defined Limits Cardiac Within Defined Limits Respiratory Within defined limits Neurovascular Assessment Within Defined Limits except for: Edema Present: Yes Left Lower Extremity: 2+ Gastrointestinal Assessment Within Defined Limits except for: Abdominal appearance: Rounded and distended Stool (unmeasured): 1 (02/17/24611) Stool Amount: moderate (02/17/24611) Stool Color: brown (02/17/24611) Stool Consistency: loose (02/17/24611) Genitourinary Assessment Within Defined Limits except for: Voiding: Urinary catheter in place Musculoskeletal Assessment Within Defined Limits except for: Musculoskeletal Assessment: General Mobility: Generalized weakness Integumentary Assessment Within Defined Limits except for: Skin Assessment Integrity - see Avatar LDA documentation and cuts or scratches Patient Lines/Drains/Airways Status Active LDAs Name Placement date Placement time Site Days Peripheral IV 02/11/24 20 gauge;1 3/4 in length Anterior;Right Upper Arm 02/11/241999 -- 5 Rash 02/02/24 2347 groin 02/02/24 2347 -- 14 Wound 02/03/24 Pretibial Left 02/03/24 0104 Pretibial 14 Wound 02/03/24 Pedal Anterior;Right 02/03/24 0636 Pedal 14 Wound 02/03/24 Ulceration Sacrum 02/03/24 1200 Sacrum 14 Wound 02/05/24 Incision Knee Anterior;Right 02/05/24 1331 Knee 11 Wound 02/05/24 Incision Leg Distal;Upper;Right 02/05/24 1443 Leg 11 Urinary Catheter Urinary Retention (Post void volume consistently greater than 350 mL) 02/07/24 2350 -- 9 Psychosocial Within Defined Limits * Nursing Assessment - Bernice Samayoa RN - 02/17/2024 4:50 AM CDT Nursing Assessment Head to Toe Head to Toe Assessment Shift Summary Pt is AO x4, pleasant, liable. Eats and drinks without issue, takes meds whole with thin liquids. I&O's updated. Catheter draining clear mili output. Pain managed with oxy q4 PRN. Nystatin, interdry cloth, and creams applied to red groin folds. Sacrum intact, red. Dressing to surgical site of R femur intact, old drainage, dry. CMS intact at baseline throughout night. Turns every 2 hours, likes to have HOB up at 45-90 throughout night. Abdomin round, distended firm, no BM this shift but last BM yesterday per report. Uses call light, makes needs known. Neurologic/Cognitive Assessment Within Defined Limits except for: Mood/Behavior: Labile HEENT Within Defined Limits Cardiac Within Defined Limits Respiratory Within defined limits Neurovascular Assessment Within Defined Limits except for: Neurovascular LLE Sensation: Chronic and sensation decreased Neurovascular RLE Sensation: Sensation decreased and chronic Edema Present: Yes Left Lower Extremity: 2+ Gastrointestinal Assessment Within Defined Limits except for: Abdominal appearance: Distended Additional GI Signs/Symptoms: fecal incontinence Stool (unmeasured): 1 (02/13/24 0430) Stool Amount: moderate (02/14/24 0220) Stool Color: light brown (02/14/24 0220) Stool Consistency: liquid;loose (02/14/24 0220) Genitourinary Assessment Within Defined Limits except for: Voiding: Urinary catheter in place Musculoskeletal Assessment Within Defined Limits except for: Musculoskeletal Assessment: General Mobility: Generalized weakness Range of Motion: LLE - moderately impaired RLE - severely impaired Integumentary Assessment Within Defined Limits except for: Skin Assessment Integrity - see Avatar LDA documentation Patient Lines/Drains/Airways Status Active LDAs Name Placement date Placement time Site Days Peripheral IV 02/11/24 20 gauge;1 3/4 in length Anterior;Right Upper Arm 02/11/241999 -- 5 Rash 02/02/24 2347 groin 02/02/242346 -- 14 Wound 02/03/24 Pretibial Left 02/03/24 0104 Pretibial 14 Wound 02/03/24 Pedal Anterior;Right 02/03/24 0636 Pedal 13 Wound 02/03/24 Ulceration Sacrum 02/03/24 1200 Sacrum 13 Wound 02/05/24 Incision Knee Anterior;Right 02/05/24 1331 Knee 11 Wound 02/05/24 Incision Leg Distal;Upper;Right 02/05/24 1443 Leg 11 Urinary Catheter Urinary Retention (Post void volume consistently greater than 350 mL) 02/07/24 2350 -- 9 Psychosocial Within Defined Limits * Nursing Assessment - Luis A Simon RN - 02/16/2024 6:44 PM CDT Nursing Assessment Head to Toe Head to Toe Assessment Shift Summary A&O, VSS, room air. C/o pain reported, PRN medications provided with relief of pain. Distended abdomen noted, paracentesis took off 6L of fluid, pt feels some relief. CMS intact. Redness on sacrum and barrier cream applied. Inner dry in place in abdominal skin folds. Assist x2 with movements. Cano in place for urinary retention. Will continue with POC. Neurologic/Cognitive Within Defined Limits HEENT Assessment Within Defined Limits except for: Teeth Symptoms: Tooth/teeth broken and tooth/teeth missing Cardiac Within Defined Limits Respiratory Within defined limits Neurovascular Assessment Within Defined Limits except for: Edema Present: Yes Left Lower Extremity: 1+ Gastrointestinal Assessment Within Defined Limits except for: Abdominal appearance: Distended, rounded, obese and taut Palpation firm - Additional GI Signs/Symptoms: abdominal discomfort and fecal incontinence Stool (unmeasured): 1 (02/13/24 0430) Stool Amount: moderate (02/14/24 0220) Stool Color: light brown (02/14/24 0220) Stool Consistency: liquid;loose (02/14/24 0220) Genitourinary Assessment Within Defined Limits except for: Voiding: Urinary catheter in place Musculoskeletal Assessment Within Defined Limits except for: Musculoskeletal Assessment: General Mobility: Generalized weakness Integumentary Assessment Within Defined Limits except for: Skin Assessment Integrity - see Avatar LDA documentation Patient Lines/Drains/Airways Status Active LDAs Name Placement date Placement time Site Days Peripheral IV 02/11/24 20 gauge;1 3/4 in length Anterior;Right Upper Arm 02/11/241999 -- 4 Rash 02/02/24 2347 groin 02/02/242346 -- 13 Wound 02/03/24 Pretibial Left 05/01/24 0104 Pretibial 13 Wound 02/03/24 Pedal Anterior;Right 02/03/24 0636 Pedal 13 Wound 02/03/24 Ulceration Sacrum 02/03/24 1200 Sacrum 13 Wound 02/05/24 Incision Knee Anterior;Right 02/05/24 1331 Knee 11 Wound 02/05/24 Incision Leg Distal;Upper;Right 02/05/24 1443 Leg 11 Urinary Catheter Urinary Retention (Post void volume consistently greater than 350 mL) 02/07/24 2350 -- 8 Psychosocial Within Defined Limits * Nursing Assessment - Luis A Simon RN - 02/16/2024 2:54 PM CDT Nursing Assessment Head to Toe Head to Toe Assessment Shift Summary A&O, VSS, room air. C/o pain reported, PRN medications provided with relief of pain. Distended abdomen noted, pt went to have paracentesis at 1330. CMS intact. Redness on sacrum and barrier creamapplied. 2x liquid stools today, incontinent, held bowel medications. Inner dry in place in abdominal skin folds. Assist x2 with movements. Cano in place for urinary retention. Will continue with POC. Neurologic/Cognitive Within Defined Limits HEENT Assessment Within Defined Limits except for: Teeth Symptoms: Tooth/teeth broken and tooth/teeth missing Cardiac Within Defined Limits Respiratory Within defined limits Neurovascular Assessment Within Defined Limits except for: Edema Present: Yes Left Lower Extremity: 1+ Gastrointestinal Assessment Within Defined Limits except for: Abdominal appearance: Distended, rounded, obese and taut Palpation firm - Additional GI Signs/Symptoms: abdominal discomfort and fecal incontinence Stool (unmeasured): 1 (02/13/24 0430) Stool Amount: moderate (02/14/24 0220) Stool Color: light brown (02/14/24 0220) Stool Consistency: liquid;loose (02/14/24 0220) Genitourinary Assessment Within Defined Limits except for: Voiding: Urinary catheter in place Musculoskeletal Assessment Within Defined Limits except for: Musculoskeletal Assessment: General Mobility: Generalized weakness Integumentary Assessment Within Defined Limits except for: Skin Assessment Integrity - see Avatar LDA documentation Patient Lines/Drains/Airways Status Active LDAs Name Placement date Placement time Site Days Peripheral IV 02/11/24 20 gauge;1 3/4 in length Anterior;Right Upper Arm 02/11/241999 -- 4 Rash 02/02/24 2347 groin 02/02/24 2347 -- 13 Wound 02/03/24 Pretibial Left 02/03/24 0104 Pretibial 13 Wound 02/03/24 Pedal Anterior;Right 02/03/24 0636 Pedal 13 Wound 02/03/24 Ulceration Sacrum 02/03/24 1200 Sacrum 13 Wound 02/05/24 Incision Knee Anterior;Right 02/05/24 1331 Knee 11 Wound 02/05/24 Incision Leg Distal;Upper;Right 02/05/24 1443 Leg 11 Urinary Catheter Urinary Retention (Post void volume consistently greater than 350 mL) 02/07/24 2350 -- 8 Psychosocial Within Defined Limits * Nursing Assessment - Yordan Garcia RN - 02/16/2024 3:54 AM CDT Nursing Assessment Head to Toe Head to Toe Assessment Shift Summary [id number] No acute events overnight. Q2H repositioning; patient intermittently refuses Q2H. Chronic cano in place 2/2 urinary retention. Many allergies listed. A&O. H2H precautions. Bed alarm active. CMS intact. Treating redness to sacral area/buttocks with barrier cream. Redness to abdominal folds being treated with nystatin and interdry. Pain 7/10 reported ~0200 with Q4H PRN oxycodone administered; patient asleep on reassessment. No nausea reported. 1400 PT/OT. Regular diet. RLE WBAT for transfersonly; otherwise NWB. Continue to manage pain and reposition as patient tolerates. Neurologic/Cognitive Within Defined Limits HEENT Assessment Within Defined Limits except for: Teeth Symptoms: Tooth/teeth missing Cardiac Within Defined Limits Respiratory Within defined limits Neurovascular Within Defined Limits Gastrointestinal Assessment Within Defined Limits except for: Abdominal appearance: Rounded and distended Additional GI Signs/Symptoms: abdominal pain, abdominal discomfort and constipation Stool (unmeasured): 1 (02/13/24 0430) Stool Amount: moderate (02/14/24 0220) Stool Color: light brown (02/14/24219) Stool Consistency: liquid;loose (02/14/24219) Genitourinary Assessment Within Defined Limits except for: Voiding: Urinary catheter in place Musculoskeletal Assessment Within Defined Limits except for: Musculoskeletal Assessment: Range of Motion: General - severely impaired RLE - moderately impaired and brace/immobilizer/splint/sling/cast Integumentary Assessment Within Defined Limits except for: Skin Assessment Color/Characteristics - bruised (ecchymotic) Integrity - see Avatar LDA documentation Patient Lines/Drains/Airways Status Active LDAs Name Placement date Placement time Site Days Peripheral IV 02/11/24 20 gauge;1 3/4 in length Anterior;Right Upper Arm 02/11/241999 -- 4 Rash 02/02/242346 groin 02/02/242346 -- 13 Wound 02/03/24 Pretibial Left 02/03/24 0104 Pretibial 13 Wound 02/03/24 Pedal Anterior;Right 02/03/24 0636 Pedal 12 Wound 02/03/24 Ulceration Sacrum 02/03/24 1200 Sacrum 12 Wound 02/05/24 Incision Knee Anterior;Right 02/05/24 1331 Knee 10 Wound 02/05/24 Incision Leg Distal;Upper;Right 02/05/24 1443 Leg 10 Urinary Catheter Urinary Retention (Post void volume consistently greater than 350 mL) 02/07/24 2350 -- 8 Psychosocial Within Defined Limits Yordan Garcia RN, 02/16/2024 3:54 AM * Nursing Assessment - Susan Garcia RN - 02/15/2024 3:38 PM CDT Nursing Assessment Head to Toe Head to Toe Assessment Shift Summary A&Ox4. Reports pain rated 8/10 in abd and RLE, given PRN oxycodone. Abd very distended despite flex fig with colon decompression today. Enema x2 given in preparation and rectal tube removed. Turned and repositioned q2h with 2 assist. RLE elevated and BLADIMIR c/d/i, CMS intact. Cath patent and draining. Interdry and nystatin in abd folds. Able to make needs known. Changed pedal dressing to R foot and rewrapped BLADIMIR on RLE. Diet ordered in evening, pt able to feed self & able to make needs known. Neurologic/Cognitive Within Defined Limits HEENT Assessment Within Defined Limits except for: Teeth Symptoms: Tooth/teeth missing Cardiac Within Defined Limits Respiratory Within defined limits Neurovascular Within Defined Limits Gastrointestinal Assessment Within Defined Limits except for: Abdominal appearance: Rounded and distended Additional GI Signs/Symptoms: abdominal pain, abdominal discomfort and constipation Stool (unmeasured): 1 (02/13/24 0430) Stool Amount: moderate (02/14/24 0220) Stool Color: light brown (02/14/24 022) Stool Consistency: liquid;loose (02/14/24 022) Genitourinary Assessment Within Defined Limits except for: Voiding: Urinary catheter in place Musculoskeletal Assessment Within Defined Limits except for: Musculoskeletal Assessment: Range of Motion: General - severely impaired RLE - moderately impaired and brace/immobilizer/splint/sling/cast Integumentary Assessment Within Defined Limits except for: Skin Assessment Color/Characteristics - bruised (ecchymotic) Integrity - see Avatar LDA documentation Patient Lines/Drains/Airways Status Active LDAs Name Placement date Placement time Site Days Peripheral IV 02/11/24 20 gauge;1 3/4 in length Anterior;Right Upper Arm 02/11/241999 -- 3 Rash 02/02/24 2347 groin 02/02/24 2347 -- 12 Wound 02/03/24 Pretibial Left 02/03/24 0104 Pretibial 12 Wound 02/03/24 Pedal Anterior;Right 02/03/24 0636 Pedal 12 Wound 02/03/24 Ulceration Sacrum 02/03/24 1200 Sacrum 12 Wound 02/05/24 Incision Knee Anterior;Right 02/05/24 1331 Knee 10 Wound 02/05/24 Incision Leg Distal;Upper;Right 02/05/24 1443 Leg 10 Urinary Catheter Urinary Retention (Post void volume consistently greater than 350 mL) 02/07/24 2350 -- 7 Psychosocial Within Defined Limits Susan Garcia RN, 02/15/2024 3:39 PM * Nursing Assessment - Susan Garcia RN - 02/15/2024 12:30 PM CDT Nursing Assessment Head to Toe Head to Toe Assessment Shift Summary A&Ox4. Reports pain rated 8/10 in abd and RLE, given PRN oxycodone. Abd very distended but remains NPO. Flex fig with colon decompression completed this morning. Enema x2 given in preparation andrectal tube removed. Turned and repositioned q2h with 2 assist. RLE elevated and BLADIMIR c/d/i, CMS intact. Cath patent and draining. Interdry and nystatin in abd folds. Able to make needs known. Paged tx team upon return from [facility] xray for diet order. Neurologic/Cognitive Within Defined Limits HEENT Assessment Within Defined Limits except for: Teeth Symptoms: Tooth/teeth missing Cardiac Within Defined Limits Respiratory Within defined limits Neurovascular Within Defined Limits Gastrointestinal Assessment Within Defined Limits except for: Abdominal appearance: Rounded and distended Additional GI Signs/Symptoms: abdominal pain, abdominal discomfort and constipation Stool (unmeasured): 1 (02/13/24 0430) Stool Amount: moderate (02/14/24 0220) Stool Color: light brown (02/14/24 0220) Stool Consistency: liquid;loose (02/14/24 0220) Genitourinary Assessment Within Defined Limits except for: Voiding: Urinary catheter in place Musculoskeletal Assessment Within Defined Limits except for: Musculoskeletal Assessment: Range of Motion: General - severely impaired RLE - moderately impaired and brace/immobilizer/splint/sling/cast Integumentary Assessment Within Defined Limits except for: Skin Assessment Color/Characteristics - bruised (ecchymotic) Integrity - see Avatar LDA documentation Patient Lines/Drains/Airways Status Active LDAs Name Placement date Placement time Site Days Peripheral IV 02/11/24 20 gauge;1 3/4 in length Anterior;Right Upper Arm 02/11/241999 -- 3 Rash 02/02/24 2347 groin 02/02/24 2347 -- 12 Wound 02/03/24 Pretibial Left 02/03/24 0104 Pretibial 12 Wound 02/03/24 Pedal Anterior;Right 02/03/24 0636 Pedal 12 Wound 02/03/24 Ulceration Sacrum 02/03/24 1200 Sacrum 12 Wound 02/05/24 Incision Knee Anterior;Right 02/05/24 1331 Knee 9 Wound 02/05/24 Incision Leg Distal;Upper;Right 02/05/24 1443 Leg 9 Urinary Catheter Urinary Retention (Post void volume consistently greater than 350 mL) 02/07/24 2350 -- 7 Psychosocial Within Defined Limits * Interval Note Provider - Amanda Elise PA-C - 02/15/2024 11:26 AM CDT Brief GI Note Flexible sigmoidoscopy performed today. See procedure report below. Impression: - Preparation of the colon was poor. - Dilated sigmoid colon. Succesfully Suctioned for decompression. - The examination was otherwise normal. - No specimens collected. Recommendation: - [facility] patient to [facility] for [facility] care. - Advance diet as tolerated. - Aggressive bowel regimen, encourage mobility. - KUB post-procedure. Would not perform additional imaging unless indicated clinically. - Recommend surgical evaluation as this is likely to continue to happen. Abdominal x-ray with report below, overall showing normal bowel gas pattern s/p decompression without obstruction. Findings: The bowel gas pattern is normal. There is no evidence for obstruction. Fixation hardware is present in both femurs. IMPRESSION IMPRESSION: no evidence for bowel obstruction. RECOMMENDATIONS: In addition to recommendations as outlined in flexible sigmoidoscopy report (see above), - Consider increasing diuretics to spironolactone 100 mg and furosemide 40 mg daily as tolerated (currently on reduced dose compared to home diuretics and having recurrent ascites). Alternatively, continue paracentesis PRN given recurrent ascites. - Close GI clinic follow-up with established Gastroenterology/Hepatology provider GI will sign off. Please call with questions/concerns. Discussed with Dr. Witt. Amanda Elise PA-C, 02/15/2024 1:30 PM * Nursing Assessment - Nereyda-Thu French RN - 02/15/2024 12:14 AM CDT Summary: [id number] Nursing Assessment Head to Toe Head to Toe Assessment Shift Summary Pt is A&OX4. Pt is NPO at midnight. Q2H turns performed. Abdomen is taut and distended r/t ascites. Pt has redness to buttocks with barrier cream protecting. Inter-dry and nystatin powder protecting skin breakdown to abdominal and groin folds. Pt reports pain 6/10 to RLE. Dressing to R hip is C/D/I with moderate shadowing. Cano catheter in place and patent for neurogenic bladder draining dark yellow urine. Pt has rectal tube put in 02/13 with scant drainage. Tube is patent. SCD boot on LLE.CMS intact. Pt has neuropathy at baseline. PRN oxycodone given for pain 04/13. Rectal tube had 200 mL output before changing bag. Flushed tubing per order. Gave pt shampoo cap wash per request. IV abxcompleted. Will continue to monitor and follow POC. Neurologic/Cognitive Within Defined Limits HEENT Within Defined Limits Cardiac Within Defined Limits Respiratory Within defined limits Neurovascular Assessment Within Defined Limits except for: Neurovascular LLE Sensation: Tenderness Pedal Pulse: 1+ Neurovascular RLE Sensation: Tenderness and sensation decreased Pedal Pulse: 1+ Edema Present: Yes Generalized: 1+ Gastrointestinal Assessment Within Defined Limits except for: Abdominal appearance: Rounded, distended and taut Additional GI Signs/Symptoms: abdominal pain, abdominal discomfort and fecal incontinence Comments: Ascites abdomen and rectal tube in place Stool (unmeasured): 1 (02/13/24 0430) Stool Amount: moderate (02/14/24 022) Stool Color: light brown (02/14/24 022) Stool Consistency: liquid;loose (02/14/24 022) Genitourinary Assessment Within Defined Limits except for: Voiding: Urinary catheter in place Musculoskeletal Assessment Within Defined Limits except for: Musculoskeletal Assessment: General Mobility: Moderately impaired and severely impairedJoint Tenderness right - hip, knee and foot Range of Motion: RLE - moderately impaired and brace/immobilizer/splint/sling/cast Integumentary Assessment Within Defined Limits except for: Skin Assessment Integrity - see Avatar LDA documentation Patient Lines/Drains/Airways Status Active LDAs Name Placement date Placement time Site Days Peripheral IV 02/11/24 20 gauge;1 3/4 in length Anterior;Right Upper Arm 02/11/241999 -- 3 Fecal Management/Containment System 02/14/24 1454 -- less than 1 Rash 02/02/24 2347 groin 02/02/24 2347 -- 12 Wound 02/03/24 Pretibial Left 02/03/24 0104 Pretibial 11 Wound 02/03/24 Pedal Anterior;Right 02/03/24 0636 Pedal 11 Wound 02/03/24 Ulceration Sacrum 02/03/24 1200 Sacrum 11 Wound 02/05/24 Incision Knee Anterior;Right 02/05/24 1331 Knee 9 Wound 02/05/24 Incision Leg Distal;Upper;Right 02/05/24 1443 Leg 9 Urinary Catheter Urinary Retention (Post void volume consistently greater than 350 mL) 02/07/24 2350 -- 7 Psychosocial Within Defined Limits * Nursing Assessment - Fede Chicas RN - 02/14/2024 9:30 PM CDT Nursing Assessment Head to Toe Head to Toe Assessment Shift Summary Pt Aox4. Able to make needs known. C/o pain RLE prn Oxy utilized. NPO after Midnight. Incontinent to B/B, has rectal tube and cano in place. Q 2 turned, intentional rounding done. Continue w/poc. Neurologic/Cognitive Within Defined Limits HEENT Assessment Within Defined Limits except for: Teeth Symptoms: Tooth/teeth broken Cardiac Within Defined Limits Respiratory Within defined limits Neurovascular Assessment Within Defined Limits except for: Neurovascular RLE Sensation: Tenderness Gastrointestinal Assessment Within Defined Limits except for: Abdominal appearance: Distended Additional GI Signs/Symptoms: fecal incontinence Stool (unmeasured): 1 (02/13/24 0430) Stool Amount: moderate (02/14/24 0220) Stool Color: light brown (02/14/24 0220) Stool Consistency: liquid;loose (02/14/24 0220) Genitourinary Assessment Within Defined Limits except for: Voiding: Urinary catheter in place Musculoskeletal Assessment Within Defined Limits except for: Musculoskeletal Assessment: General Mobility: Generalized weakness and moderately impaired Integumentary Assessment Within Defined Limits except for: Skin Assessment Integrity - see Avatar LDA documentation Patient Lines/Drains/Airways Status Active LDAs Name Placement date Placement time Site Days Peripheral IV 02/11/24 20 gauge;1 3/4 in length Anterior;Right Upper Arm 02/11/241999 -- 3 Fecal Management/Containment System 02/14/24 1454 -- less than 1 Rash 02/02/24 2347 groin 02/02/24 2347 -- 11 Wound 02/03/24 Pretibial Left 02/03/24 0104 Pretibial 11 Wound 02/03/24 Pedal Anterior;Right 02/03/24 0636 Pedal 11 Wound 02/03/24 Ulceration Sacrum 02/03/24 1200 Sacrum 11 Wound 02/05/24 Incision Knee Anterior;Right 02/05/24 1331 Knee 9 Wound 02/05/24 Incision Leg Distal;Upper;Right 02/05/24 1443 Leg 9 Urinary Catheter Urinary Retention (Post void volume consistently greater than 350 mL) 02/07/24 2350 -- 6 Psychosocial Assessment Within Defined Limits except for: Psychosocial Assessment: Observed Patient Behaviors: Pleasant Verbalized Emotional State: Acceptance * Nursing Assessment - Peggy Kirk RN - 02/14/2024 11:46 AM CDT Nursing Assessment Head to Toe Head to Toe Assessment Shift Summary Aox4, RA, took med whole, NPO, with no exceptions. C/o pain on right hip was managed with PRN pain med. Dressing on right hip intact, has scant dried drainage from previous shifts. Dressing on right foot was changed at noon per order. Nystatin powder and inner dry between thigh for rash and moisture prevention. Cano patent and in place. Bowel incontinent, no BM this shift. Able to use call lights properly. Will continue cares as ordered. Filed Vitals: 02/13/24 0700 BP: 94/59 Pulse: 67 Resp: 15 Temp: 36.1 ??C (96.9 ??F) Rectal tube was placed per ordered. Peggy Kirk RN, 02/14/2024 2:55 PM Neurologic/Cognitive Within Defined Limits HEENT Within Defined Limits Cardiac Within Defined Limits Respiratory Within defined limits Neurovascular Within Defined Limits Gastrointestinal Assessment Within Defined Limits except for: Abdominal appearance: Distended Stool (unmeasured): 1 (02/13/24 0430) Stool Amount: moderate (02/14/24 022) Stool Color: light brown (02/14/24219) Stool Consistency: liquid;loose (02/14/24219) Genitourinary Assessment Within Defined Limits except for: [...] date Placement time Site Days Peripheral IV 02/11/24 20 gauge;1 3/4 in length Anterior;Right Upper Arm 02/11/241999 -- 2 Rash 02/02/24 2347 groin 02/02/242346 -- 11 Wound 02/03/24 Pretibial Left 02/03/24 0104 Pretibial 11 Wound 02/03/24 Pedal Anterior;Right 02/03/24 0636 Pedal 11 Wound 02/03/24 Ulceration Sacrum 02/03/24 1200 Sacrum 10 Wound 02/05/24 Incision Knee Anterior;Right 02/05/24 1331 Knee 8 Wound 02/05/24 Incision Leg Distal;Upper;Right 02/05/24 1443 Leg 8 Urinary Catheter Urinary Retention (Post void volume consistently greater than 350 mL) 02/07/24 2350 -- 6 Psychosocial Within Defined Limits * Nursing Assessment - Judith Ho, GEOFF - 02/14/2024 6:00 AM CDT Nursing Assessment Head to Toe Head to Toe Assessment Shift Summary [id number] No acute changes.Pt is alert and oriented x 4. RA.Able to make her needs known.Takes pills whole w/o difficulty.Pain on RLE was managed with PRN pain med and ice pack.No changes in CMS. Dressing on right hip intact with scant dried drainage . Cano patent and in place. Bowel incontinent, no BM thisshift. Pt's abdomen still distended but better and no increase in distension per patient.Ida nausea,chest pain,sob,light headed or dizziness.Turn and reposition q 2 hr as pt allows.Will continue to monitor.Filed Vitals: 02/13/242346 BP: 94/59 Pulse: 73 Resp: 16 Temp: 36.3 ??C (97.4 ??F) Weight: Pt awake this morning and reported pain after repositioning on the Right side of the ribs/flank ,R leg and knee rating -04/13,prn oxycodone administered,provided Irma trena ,water and ice chips perrequest. Neurologic/Cognitive Within Defined Limits HEENT Within Defined Limits Cardiac Within Defined Limits Respiratory Within defined limits Neurovascular Assessment Within Defined Limits except for: Neurovascular RLE Sensation: Sensation decreased Comments: Neuropathy per patient. Gastrointestinal Assessment Within Defined Limits except for: Abdominal appearance: Distended Stool (unmeasured): 1 (02/13/24 0430) Stool Amount: moderate (02/14/24 022) Stool Color: light brown (02/14/24 022) Stool Consistency: liquid;loose (02/14/24219) Genitourinary Assessment Within Defined Limits except for: [...] date Placement time Site Days Peripheral IV 02/11/24 20 gauge;1 3/4 in length Anterior;Right Upper Arm 02/11/241999 -- 2 Rash 02/02/242346 groin 02/02/242346 -- 11 Wound 02/03/24 Pretibial Left 02/03/24 0104 Pretibial 11 Wound 02/03/24 Pedal Anterior;Right 02/03/24 0636 Pedal 10 Wound 02/03/24 Ulceration Sacrum 02/03/24 1200 Sacrum 10 Wound 02/05/24 Incision Knee Anterior;Right 02/05/24 1331 Knee 8 Wound 02/05/24 Incision Leg Distal;Upper;Right 02/05/24 1443 Leg 8 Urinary Catheter Urinary Retention (Post void volume consistently greater than 350 mL) 02/07/24 2350 -- 6 Psychosocial Within Defined Limits * Nursing Assessment - Peggy Kirk RN - 02/13/2024 3:57 PM CDT Nursing Assessment Head to Toe Head to Toe Assessment Shift Summary Aox4, RA, took med whole, NPO, with no exceptions. C/o pain on right hip was managed with PRN pain med. Dressing on right hip intact, has scant dried drainage from previous shifts. Dressing on right foot was changed at noon per order. Nystatin powder and inner dry between thigh for rash and moisture prevention. Cano patent and in place. Bowel incontinent, no BM this shift. Able to use call lights properly. Will continue cares as ordered. Peggy Kirk RN, 02/13/2024 3:58 PM Filed Vitals: 02/13/24 0700 BP: 94/59 Pulse: 67 Resp: 15 Temp: 36.1 ??C (96.9 ??F) Weight: Neurologic/Cognitive Within Defined Limits HEENT Within Defined Limits Cardiac Within Defined Limits Respiratory Within defined limits Neurovascular Within Defined Limits Gastrointestinal Assessment Within Defined Limits except for: Abdominal appearance: Distended Stool (unmeasured): 1 (02/13/24429) Stool Amount: moderate (02/13/24429) Stool Color: light brown (02/13/24429) Stool Consistency: liquid (02/13/24429) Genitourinary Assessment Within Defined Limits except for: [...] date Placement time Site Days Peripheral IV 02/11/24 20 gauge;1 3/4 in length Anterior;Right Upper Arm 02/11/241999 -- 1 Rash 02/02/24 2347 groin 02/02/24 2347 -- 10 Wound 02/03/24 Pretibial Left 02/03/24 0104 Pretibial 10 Wound 02/03/24 Pedal Anterior;Right 02/03/24 0636 Pedal 10 Wound 02/03/24 Ulceration Sacrum 02/03/24 1200 Sacrum 10 Wound 02/05/24 Incision Knee Anterior;Right 02/05/24 1331 Knee 8 Wound 02/05/24 Incision Leg Distal;Upper;Right 02/05/24 1443 Leg 8 Urinary Catheter Urinary Retention (Post void volume consistently greater than 350 mL) 02/07/24 2350 -- 5 Psychosocial Within Defined Limits * Nursing Assessment - [place]-Thu French RN - 02/13/2024 12:38 AM CDT Summary: [id number] Nursing Assessment Head to Toe Head to Toe Assessment Shift Summary Pt is A&OX4. BP trending on low end (94/61 at 0024). Pt c/o pain 10 to RLE and this teletypewriter installer gave prn oxycodone and repositioned for comfort. Pt is on liquid diet restriction and adhering to it. Abdomen is taut and distended r/t ascites. Pt has redness to buttocks with barrier cream protecting.Mepilex not applied due to frequent bouts of diarrhea. Cano catheter in place and patent for neurog enic bladder draining mili urine. Pt incontinent of large amount of liquid stool 1x. SCD boot on LLE. CMS intact, pt has neuropathy at baseline. IV abx infusing. Will continue to monitor and follow POC. Neurologic/Cognitive Within Defined Limits HEENT Within Defined Limits Cardiac Within Defined Limits Respiratory Within defined limits Neurovascular Assessment Within Defined Limits except for: Neurovascular LLE Sensation: Tenderness Pedal Pulse: 1+ Neurovascular RLE Sensation: Tenderness Pedal Pulse: 1+ Edema Present: Yes Generalized: 1+ Gastrointestinal Assessment Within Defined Limits except for: Abdominal appearance: Rounded, distended and taut Additional GI Signs/Symptoms: abdominal pain, abdominal discomfort and fecal incontinence Comments: Ascites abdomen Stool (unmeasured): 1 (02/06/24 1800) Stool Amount: large (02/12/242146) Stool Color: light brown (02/12/242146) Stool Consistency: loose (02/12/242146) Genitourinary Assessment Within Defined Limits except for: Voiding: Urinary catheter in place Musculoskeletal Assessment Within Defined Limits except for: Musculoskeletal Assessment: General Mobility: Moderately impaired and severely impairedJoint Tenderness right - hip, knee and foot Range of Motion: RLE - moderately impaired and brace/immobilizer/splint/sling/cast Integumentary Assessment Within Defined Limits except for: Skin Assessment Integrity - see Avatar LDA documentation Patient Lines/Drains/Airways Status Active LDAs Name Placement date Placement time Site Days Peripheral IV 02/11/24 20 gauge;1 3/4 in length Anterior;Right Upper Arm 02/11/241999 -- 1 Rash 02/02/247 groin 02/02/247 -- 10 Wound 02/03/24 Pretibial Left 02/03/24 0104 Pretibial 9 Wound 02/03/24 Pedal Anterior;Right 02/03/24 0636 Pedal 9 Wound 02/03/24 Ulceration Sacrum 02/03/24 1200 Sacrum 9 Wound 02/05/24 Incision Knee Anterior;Right 02/05/24 1331 Knee 7 Wound 02/05/24 Incision Leg Distal;Upper;Right 02/05/24 1443 Leg 7 Urinary Catheter Urinary Retention (Post void volume consistently greater than 350 mL) 02/07/24 2350 -- 5 Psychosocial Within Defined Limits * Nursing Assessment - Rozina Lainez, GEOFF - 02/12/2024 4:41 PM CDT Nursing Assessment Head to Toe Head to Toe Assessment Shift Summary Pt c/o pain to RLE, turned to sides. BM x2, loose/soft. Sleeping between cares at times. Toleraitngclears without issue. Pleasant. Abd remains distended. Buttock red, barrier cream applied. Medicated with tylenol and oxy. Controlled. Rozina Lainez RN, 02/12/2024 8:45 PM Neurologic/Cognitive Within Defined Limits HEENT Within Defined Limits Cardiac Within Defined Limits Respiratory Within defined limits Neurovascular Assessment Within Defined Limits except for: Neurovascular LLE Sensation: Tenderness Pedal Pulse: 1+ Neurovascular RLE Sensation: Tenderness Pedal Pulse: 1+ Edema Present: Yes Generalized: 1+ Gastrointestinal Assessment Within Defined Limits except for: Abdominal appearance: Rounded, distended and taut Additional GI Signs/Symptoms: abdominal pain, abdominal discomfort, fecal incontinence and diarrhea Stool (unmeasured): 1 (02/06/24 1800) Stool Amount: large (02/12/24 1600) Stool Color: brown (02/12/24 1600) Stool Consistency: soft (02/12/24 1600) Genitourinary Assessment Within Defined Limits except for: Voiding: Urinary catheter in place Urine characteristics: , mili Musculoskeletal Assessment Within Defined Limits except for: Musculoskeletal Assessment: General Mobility: Moderately impaired and severely impairedJoint Tenderness right - hip, knee and foot Range of Motion: RLE - moderately impaired and brace/immobilizer/splint/sling/cast Integumentary Assessment Within Defined Limits except for: Skin Assessment Integrity - see Avatar LDA documentation Patient Lines/Drains/Airways Status Active LDAs Name Placement date Placement time Site Days Peripheral IV 02/11/24 20 gauge;1 3/4 in length Anterior;Right Upper Arm 02/11/241999 -- less than1 Rash 02/02/24 2347 groin 02/02/24 2347 -- 9 Wound 02/03/24 Pretibial Left 02/03/24 0104 Pretibial 9 Wound 02/03/24 Pedal Anterior;Right 02/03/24 0636 Pedal 9 Wound 02/03/24 Ulceration Sacrum 02/03/24 1200 Sacrum 9 Wound 02/05/24 Incision Knee Anterior;Right 02/05/24 1331 Knee 7 Wound 02/05/24 Incision Leg Distal;Upper;Right 02/05/24 1443 Leg 7 Urinary Catheter Urinary Retention (Post void volume consistently greater than 350 mL) 02/07/24 2350 -- 4 Psychosocial Within Defined Limits * Nursing Assessment - Peggy Kirk RN - 02/12/2024 11:31 AM CDT Nursing Assessment Head to Toe Head to Toe Assessment Shift Summary Aox4, RA, took med whole, NPO, with no exceptions. C/o pain on right hip was managed with PRN pain med. Dressing on right hip intact, has scant dried drainage from previous shifts. Dressing on right foot was changed at noon per order. Nystatin powder and inner dry between thigh for rash and moistures prevention. Caon patent and in place. Bowel incontinent, 1 large loose BM this shift, suppository held, notified. Able to use call lights property. Will continue to follow POC. Filed Vitals: 02/12/24 0751 BP: 94/67 Pulse: (!) 126 Resp: 16 Temp: 35.1 ??C (95.2 ??F) Peggy Kirk, RN, 02/12/2024 11:33 AM Neurologic/Cognitive Within Defined Limits HEENT Within Defined Limits Cardiac Within Defined Limits Respiratory Within defined limits Neurovascular Within Defined Limits Gastrointestinal Assessment Within Defined Limits except for: Abdominal appearance: Distended Stool (unmeasured): 1 (02/06/24 1800) Stool Amount: small (02/12/24 0249) Stool Color: light brown (02/12/24 0249) Stool Consistency: creamy (02/12/24 0249) Genitourinary Assessment Within Defined Limits except for: [...] date Placement time Site Days Peripheral IV 02/11/24 20 gauge;1 3/4 in length Anterior;Right Upper Arm 02/11/241999 -- less than1 Rash 02/02/242346 groin 04/30/24 2347 -- 9 Wound 02/03/24 Pretibial Left 02/03/24 0104 Pretibial 9 Wound 02/03/24 Pedal Anterior;Right 02/03/24 0636 Pedal 9 Wound 02/03/24 Ulceration Sacrum 02/03/24 1200 Sacrum 8 Wound 02/05/24 Incision Knee Anterior;Right 02/05/24 1331 Knee 6 Wound 02/05/24 Incision Leg Distal;Upper;Right 02/05/24 1443 Leg 6 Urinary Catheter Urinary Retention (Post void volume consistently greater than 350 mL) 02/07/24 2350 -- 4 Psychosocial Within Defined Limits * Interval Note Provider - Venkata Davis MD - 02/12/2024 7:44 AM CDT Interval Provider Note: Surgery was re-consulted on 02/11/24 for care of Cathy Raymond in setting of increasing abdominal painand distension. 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 GI was consulted and patient underwent emergent colonoscopy with successful decompression of the large bowel. As previously evaluated, this patient remains a poor surgical candidate for sigmoidectomy due to her medical co-morbidities including decompensated cirrhosis, polyneuropathy with neurogenic bowel/bladder, T2DM, MAX, and history of gastric bypass with marginal ulcer. Surgery will sign off at this time. Please re-page with any questions or concerns. Venkata Davis MD, 02/12/2024 7:49 AM [facility] * Nursing Assessment - Hector Carrillo RN - 02/12/2024 1:57 AM CDT Nursing Assessment Head to Toe Head to Toe Assessment Shift Summary Shift [id number] Patient returned to room from procedure at around 0030 was awake and alert. Ongoing soft BPs LR infusing at 50 mL/hr Cross cover team MD notify. Bladimir wrap dressing to right RLE dry and intact. Dressing on right hip intact with small amount drainage. No acute changes. On room air. Complain of pain toRLE and abdomen discomfort. Medicated for pain with PRN IV push dilaudid. Sleeping on reassessment.Cano in place. Urine drainage mili/tea color. Hector Carrillo RN, 02/12/2024 6:36 AM Neurologic/Cognitive Within Defined Limits HEENT Assessment Within Defined Limits except for: Teeth Symptoms: Tooth/teeth missing Cardiac Within Defined Limits Comments: Soft BPs Respiratory Within defined limits Neurovascular Assessment Within Defined Limits except for: Neurovascular RLE Sensation: Tenderness Edema Present: Yes Right Lower Extremity: 2+ Left Lower Extremity: 2+ Gastrointestinal Assessment Within Defined Limits except for: Abdominal appearance: Obese, rounded and distended Additional GI Signs/Symptoms: abdominal discomfort Stool (unmeasured): 1 (02/06/24 1800) Stool Amount: large (extra large) (02/11/24 2300) Stool Color: light brown (02/11/24 2300) Stool Consistency: watery (02/11/24 230) Genitourinary Assessment Within Defined Limits except for: Voiding: Urinary catheter in place Musculoskeletal Assessment Within Defined Limits except for: Musculoskeletal Assessment: General Mobility: Generalized weakness and moderately impairedJoint Tenderness right - knee Range of Motion: RLE - brace/immobilizer/splint/sling/cast Integumentary Assessment Within Defined Limits except for: Skin Assessment Color/Characteristics - redness, blanchable Moisture - dry and flaky Integrity - see Avatar LDA documentation Patient Lines/Drains/Airways Status Active LDAs Name Placement date Placement time Site Days Peripheral IV 02/11/24 20 gauge;1 3/4 in length Anterior;Right Upper Arm 02/11/241999 -- less than1 Rash 02/02/24 2347 groin 02/02/24 2347 -- 9 Wound 02/03/24 Pretibial Left 02/03/24 0104 Pretibial 9 Wound 02/03/24 Pedal Anterior;Right 02/03/24 0636 Pedal 8 Wound 02/03/24 Ulceration Sacrum 02/03/24 1200 Sacrum 8 Wound 02/05/24 Incision Knee Anterior;Right 02/05/24 1331 Knee 6 Wound 02/05/24 Incision Leg Distal;Upper;Right 02/05/24 1443 Leg 6 Psychosocial Assessment Within Defined Limits except for: * Cross Cover - Sascha Cavazos PA-C - 02/11/2024 10:25 PM CDT Paged by GI team, who performed decompression colonoscopy tonight. Per GI, patient to remain NPO overnight, routine Abdominal X-ray in AM. Orders placed. -Surgery performing serial abdominal checks overnight, serial lactate labs thus far WNL. ADDENDUM No reported events overnight. Per chart check, patient appears afebrile and vitally stable, serial lactates overnight all WNL. -Continue to monitor. 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 On admission there was concern for sigmoid volvulus for which GI and surgery were consulted however it was felt that her imaging was similar to prior representing a chronic sigmoid dilation. Patient is a poor surgical candidate given her medical comorbidities and due to the chronic nature of her condition no surgical intervention was indicated. 02/10 patient complaining of in creased distention and abdominal pain. 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 Patient remains a poor surgical candidate. Case discussed with GI. Plan for emergent colonoscopy for decompression to mitigate the risk of colonic perforation. - N.p.o. - Maintenance IV fluids - Emergent colonoscopy with GI for decompression - Optimize electrolytes - Avoid opioid use - Every 4 hours suppository - Serial abdominal exams by the surgery service - Green surgery will continue to follow Tim Zapata MD General Surgery, PGY-2 Pager: [phone] or Telemediq * Cross Cover - Khloe Reyes PA-C - 02/11/2024 7:20 PM CDT Paged by [employer] nurse regarding NG tube. On chart review appears CT ordered this afternoon shows increased rectosigmoid colonic distention with increased distal fecal contents. Mildly increased gaseous distention of chronically dilated sigmoid colon - findings may represent [place] syndrome spectrum per Rads. NG was ordered by day team for decompression; however, [employer] PRO[employer]MER RN does not feel appropriate for placement given cirrhosis and bleeding risk (reviewed lack of varices on EGD 09/26 and labs, but still feels too high risk). [employer] notes this will need to be placed by IR if surgery unable to place overnight. [employer] PROGRAMMER and bedside RN asking for clarification on diet orders as patient was allowed to eat dinner. Ordered strict NPO until surgery can evaluate. -- Strict NPO -- Paged [facility] Surgery Khloe Reyes PA-C, 02/11/2024 7:21 PM Red Surgery recs: -- Checking with chief to see if they can place NG -- Surgery will follow for serial abd exams -- NPO diet -- q4h suppositories -- q6h lactates (surgery ordered initial, ordered q6h to start this evening) -- Reach out to GI to discuss possible decompression via colonoscopy given degree of sigmoid dilation Khloe Reyes PA-C, 02/11/2024 7:38 PM I spoke with president finance company who notes they could place NG tube if done before ~10-11 PM (due tostaffing). Updated [facility] Surgery team- they do not feel NG would be helpful at this point as she has no gastric or small bowel distention. Surgery recommending GI evaluation for colonic decompression. I spoke with Dr. Lambert via phone who will come evaluate patient and discuss plan with Surgery teamdirectly. Red surgery aware. Khloe Reyes PA-C, 02/11/2024 8:13 PM * Nursing Assessment - Lukas Dill RN - 02/11/2024 6:34 PM CDT Nursing Assessment Head to Toe Head to Toe Assessment Shift Summary Patient is lethargic, oriented x 4. On RA, Abdomen severely distended. Order for NGT this evening however [employer]GRAM[employer] nurse would not place because patient had a diet order and had dinner. Cross-cover aware consult to surgery. To OR ~ 2150 for colonoscopic decompression. Will resume cares per POC upon return. Neurologic/Cognitive Within Defined Limits HEENT Assessment Within Defined Limits except for: Teeth Symptoms: Tooth/teeth missing Cardiac Within Defined Limits Comments: Soft Bps Respiratory Within defined limits Neurovascular Assessment Within Defined Limits except for: Neurovascular RLE Sensation: Tenderness Edema Present: Yes Right Lower Extremity: 2+ Left Lower Extremity: 2+ Gastrointestinal Assessment Within Defined Limits except for: Abdominal appearance: Rounded, distended, contour irregular and taut Palpation firm - Additional GI Signs/Symptoms: abdominal discomfort Stool (unmeasured): 1 (02/06/24 1800) Stool Amount: large (02/11/24 1440) Stool Color: light brown (02/11/24 1440) Stool Consistency: liquid (02/11/24 1440) Genitourinary Assessment Within Defined Limits except for: Voiding: Urinary catheter in place Genitalia signs/symptoms: Labial edema Musculoskeletal Assessment Within Defined Limits except for: Musculoskeletal Assessment: General Mobility: Moderately impairedJoint Tenderness right - ankle Range of Motion: RLE - brace/immobilizer/splint/sling/cast and severely impaired Integumentary Assessment Within Defined Limits except for: Skin Assessment Color/Characteristics - redness, blanchable Moisture - dry and flaky Patient Lines/Drains/Airways Status Active LDAs Name Placement date Placement time Site Days Peripheral IV 02/02/24 20 gauge Anterior;Right Forearm 02/02/24 1519 -- 9 Rash 02/02/24 2347 groin 02/02/24 2347 -- 8 Wound 02/03/24 Pretibial Left 02/03/24 0104 Pretibial 8 Wound 02/03/24 Pedal Anterior;Right 02/03/24 0636 Pedal 8 Wound 02/03/24 Ulceration Sacrum 02/03/24 1200 Sacrum 8 Wound 02/05/24 Incision Knee Anterior;Right 02/05/24 1331 Knee 6 Wound 02/05/24 Incision Leg Distal;Upper;Right 02/05/24 1443 Leg 6 Psychosocial Assessment Within Defined Limits except for: Psychosocial Assessment: Observed Patient Behaviors: Sad/tearful Verbalized Emotional State: Sadness * Nursing Assessment - Natacha Bang RN - 02/11/2024 10:58 AM CDT Nursing Assessment Head to Toe Head to Toe Assessment Shift Summary Day Nursing Note [id number]: Alert and oriented. Tearful this AM re: how evening went yesterday. Reported 8/10 RLE pain this AM,PRN oxycodone given. Abdomen extremely distended, went down for abdominal x-ray this AM. Bladimir dressing to RLE c/d/I. Wound vac removed this AM. Betadine soaked dressing completed to toe. Severe redness present to abdominal skin fold, very tender. New inner dry placed under abdominal folds. Scheduledointment applied. T&R Q 2 hours, as patient allowed. Very painful for patient to lay flat and roll. PT/OT scheduled for 1345. -Replaced patient's call light, was not working. Waiting for placement. Natacha Bang RN, 02/11/2024 11:01 AM Neurologic/Cognitive Within Defined Limits HEENT Assessment Within Defined Limits except for: Teeth Symptoms: Tooth/teeth missing Cardiac Within Defined Limits Respiratory Within defined limits Neurovascular Assessment Within Defined Limits except for: Neurovascular LLE Sensation: Tenderness and sensation decreased Neurovascular RLE Sensation: Tenderness and sensation decreased Pedal Pulse: 1+ Edema Present: Yes Dependent: 1+ Right Lower Extremity: 1+ Left Lower Extremity: 1+ Comments: Hx neuropathy Gastrointestinal Assessment Within Defined Limits except for: Abdominal appearance: Distended, contour irregular and taut Palpation firm - all quadrants Additional GI Signs/Symptoms: abdominal pain, abdominal discomfort, fecal incontinence and nausea Comments: Severe ascites Stool (unmeasured): 1 (02/06/241799) Stool Amount: small (02/09/242013) Stool Color: black (02/09/242013) Stool Consistency: liquid (02/09/242013) Genitourinary Assessment Within Defined Limits except for: Voiding: Urinary catheter in place Urine characteristics: , concentrated Genitalia signs/symptoms: Labial edema and labial redness Musculoskeletal Assessment Within Defined Limits except for: Musculoskeletal Assessment: General Mobility: Moderately impairedJoint Tenderness left - ankle right - hip, knee, foot and ankle Range of Motion: LLE - mildly impaired RLE - severely impaired Integumentary Assessment Within Defined Limits except for: Skin Assessment Color/Characteristics - redness, blanchable Color/Characteristics Location - under abd folds Moisture - moist Turgor - slow return to baseline Integrity - see Avatar LDA documentation and rashes Integrity Location - abd folds Patient Lines/Drains/Airways Status Active LDAs Name Placement date Placement time Site Days Peripheral IV 02/02/24 20 gauge Anterior;Right Forearm 02/02/24 1519 -- 8 Rash 02/02/24 2347 groin 02/02/24 2347 -- 8 Wound 02/03/24 Pretibial Left 02/03/24 0104 Pretibial 8 Wound 02/03/24 Pedal Anterior;Right 02/03/24 0636 Pedal 8 Wound 02/03/24 Ulceration Sacrum 02/03/24 1200 Sacrum 7 Wound 02/05/24 Incision Knee Anterior;Right 02/05/24 1331 Knee 5 Wound 02/05/24 Incision Leg Distal;Upper;Right 02/05/24 1443 Leg 5 Psychosocial Within Defined Limits * Nursing Assessment - Gay Menendez, RN - 02/11/2024 5:34 AM CDT Nursing Assessment Head to Toe Head to Toe Assessment Shift Summary Pt is Alert and oriented X4 , able to call for need. Denies pain,nausea,vomiting and Sob. Refused position and feel comfortable ,want to sleep. Cano care give.Call light is within reach. Will continue Monitor. BP 103/59 (Cuff Location: Left Arm) Pulse 83 Temp 36.4 ??C (97.6 ??F) (Tympanic) Resp 18 Ht1.727 m (5' 8) Wt 98.4 kg (217 lb) SpO2 94% BMI 32.99 kg/m?? Gay Menendez, RN, 02/11/2024 5:36 AM Reported pain and oxycodone given. Will continue Monitor. Gay Menendez, RN, 02/11/2024 7:15 AM Neurologic/Cognitive Within Defined Limits HEENT Within Defined Limits Cardiac Within Defined Limits Respiratory Within defined limits Comments: On room Air. Neurovascular Assessment Within Defined Limits except for: Neurovascular LLE Sensation: Sensation decreased and tenderness Neurovascular RLE Sensation: Sensation decreased and tenderness Edema Present: Yes Right Lower Extremity: 1+ Left Lower Extremity: 1+ Gastrointestinal Within Defined Limits Stool (unmeasured): 1 (02/06/241799) Stool Amount: small (02/09/242013) Stool Color: black (02/09/242013) Stool Consistency: liquid (02/09/242013) Genitourinary Within Defined Limits Musculoskeletal Assessment Within Defined Limits except for: Musculoskeletal Assessment: Range of Motion: LLE - mildly impaired RLE - moderately impaired Integumentary Within Defined Limits Patient Lines/Drains/Airways Status Active LDAs Name Placement date Placement time Site Days Peripheral IV 02/02/24 20 gauge Anterior;Right Forearm 02/02/24 1519 -- 8 Rash 02/02/24 2347 groin 02/02/24 2347 -- 8 Wound 02/03/24 Pretibial Left 02/03/24 0104 Pretibial 8 Wound 02/03/24 Pedal Anterior;Right 02/03/24 0636 Pedal 7 Wound 02/03/24 Ulceration Sacrum 02/03/24 1200 Sacrum 7 Wound 02/05/24 Incision Knee Anterior;Right 02/05/24 1331 Knee 5 Wound 02/05/24 Incision Leg Distal;Upper;Right 02/05/24 1443 Leg 5 (NPWT) Negative Pressure Wound Therapy Pretibial Proximal;Right;Lateral;Inner 02/05/24 1514 -- 5 Psychosocial Within Defined Limits * Nursing Assessment - Navid-Thalia Machado RN - 02/11/2024 1:23 AM CDT Nursing Assessment Head to Toe Head to Toe Assessment Shift Summary Pt calm and cooperative with cares this shift; able to communicate her needs; up in the chair this shift; pain well controlled; pt's abdomen is large and extended; c/o discomfort; repositioned every two hours; ate well, had adequate fluids, no c/o NV; cano cares completed; bilateral groin and abdominal folds cares completed; no acute medical issues; will follow POC Neurologic/Cognitive Within Defined Limits HEENT Within Defined Limits Cardiac Within Defined Limits Respiratory Within defined limits Neurovascular Assessment Within Defined Limits except for: Neurovascular RLE Sensation: Sensation decreased Gastrointestinal Assessment Within Defined Limits except for: Abdominal appearance: Distended Palpation firm - Bowel Sounds hypoactive - all quadrants Comments: Hx of ascites Stool (unmeasured): 1 (02/06/241799) Stool Amount: small (02/09/242013) Stool Color: black (02/09/242013) Stool Consistency: liquid (02/09/242013) Genitourinary Assessment Within Defined Limits except for: Voiding: Urinary catheter in place Urine characteristics: , mili Musculoskeletal Assessment Within Defined Limits except for: Musculoskeletal Assessment: General Mobility: Moderately impaired and generalized weaknessJoint Tenderness bilateral - Range of Motion: RLE - moderately impaired Integumentary Assessment Within Defined Limits except for: Skin Assessment Integrity - see Avatar LDA documentation Comments: Sacral wound Patient Lines/Drains/Airways Status Active LDAs Name Placement date Placement time Site Days Peripheral IV 02/02/24 20 gauge Anterior;Right Forearm 02/02/24 1519 -- 8 Rash 02/02/24 2347 groin 02/02/24 2347 -- 8 Wound 02/03/24 Pretibial Left 02/03/24 0104 Pretibial 8 Wound 02/03/24 Pedal Anterior;Right 02/03/24 0636 Pedal 7 Wound 02/03/24 Ulceration Sacrum 02/03/24 1200 Sacrum 7 Wound 02/05/24 Incision Knee Anterior;Right 02/05/24 1331 Knee 5 Wound 02/05/24 Incision Leg Distal;Upper;Right 02/05/24 1443 Leg 5 (NPWT) Negative Pressure Wound Therapy Pretibial Proximal;Right;Lateral;Inner 02/05/24 1514 -- 5 Psychosocial Assessment Within Defined Limits except for: Psychosocial Assessment: Observed Patient Behaviors: Sad/tearful Verbalized Emotional State: Hopefulness and relief * Nursing Assessment - Natacha Bang RN - 02/10/2024 10:29 AM CDT Nursing Assessment Head to Toe Head to Toe Assessment Shift Summary Day Nursing Note [id number]: Alert and oriented. Reported 05/14 RLE pain, PRN oxycodone given. Abdomen extremely distended, wanting to know if a paracentesis will be done today. Per MD, not today, relayed to patient. Bladimir dressingto RLE c/d/I. Wound vac with 0 output. Betadine soaked dressing completed to toe. Severe redness present to abdominal skin fold, very tender. Scheduled ointment applied. T&R Q 2 hours. Hair washed. Sleeping between cares. -Son in to chair by PT/OT. Waiting for placement. Natacha Bang RN, 02/10/2024 2:18 PM Neurologic/Cognitive Within Defined Limits HEENT Assessment Within Defined Limits except for: Teeth Symptoms: Tooth/teeth missing Cardiac Within Defined Limits Respiratory Within defined limits Neurovascular Assessment Within Defined Limits except for: Neurovascular LLE Sensation: Tenderness and sensation decreased Neurovascular RLE Sensation: Tenderness and sensation decreased Pedal Pulse: 1+ Edema Present: Yes Dependent: 1+ Right Lower Extremity: 1+ Left Lower Extremity: 1+ Comments: Hx neuropathy Gastrointestinal Assessment Within Defined Limits except for: Abdominal appearance: Distended, contour irregular and taut Palpation firm - all quadrants Additional GI Signs/Symptoms: abdominal pain, abdominal discomfort and fecal incontinence Comments: Ascites Stool (unmeasured): 1 (02/06/241799) Stool Amount: small (02/09/242013) Stool Color: black (02/09/242013) Stool Consistency: liquid (02/09/242013) Genitourinary Assessment Within Defined Limits except for: Voiding: Urinary catheter in place Urine characteristics: , concentrated Genitalia signs/symptoms: Labial edema and labial redness Musculoskeletal Assessment Within Defined Limits except for: Musculoskeletal Assessment: General Mobility: Moderately impairedJoint Tenderness left - ankle right - hip, knee, foot and ankle Range of Motion: LLE - mildly impaired RLE - moderately impaired Integumentary Assessment Within Defined Limits except for: Skin Assessment Color/Characteristics - redness, blanchable Color/Characteristics Location - under abd folds Moisture - moist Turgor - slow return to baseline Integrity - see Avatar LDA documentation and rashes Integrity Location - abd folds Patient Lines/Drains/Airways Status Active LDAs Name Placement date Placement time Site Days Peripheral IV 02/02/24 20 gauge Anterior;Right Forearm 02/02/24 1519 -- 7 Rash 02/02/24 2347 groin 02/02/24 2347 -- 7 Wound 02/03/24 Pretibial Left 02/03/24 0104 Pretibial 7 Wound 02/03/24 Pedal Anterior;Right 02/03/24 0636 Pedal 7 Wound 02/03/24 Ulceration Sacrum 02/03/24 1200 Sacrum 6 Wound 02/05/24 Incision Knee Anterior;Right 02/05/24 1331 Knee 4 Wound 02/05/24 Incision Leg Distal;Upper;Right 02/05/24 1443 Leg 4 (NPWT) Negative Pressure Wound Therapy Pretibial Proximal;Right;Lateral;Inner 02/05/24 1514 -- 4 Psychosocial Within Defined Limits * Nursing Assessment - Willis Méndez RN - 02/10/2024 2:52 AM CDT Nursing Assessment Head to Toe Head to Toe Assessment Shift Summary NOC Nursing shift note Pt continues to report RLE pain 05/14 upon assessment, given PRN Oxycodone 10 mg for pain and patient sleeping upon reassessment, also C/o abd pain, very distended and firm, right hip island dressing intact with old drainage, right lower leg bladimir wrap dressing dry and intact, wound vac with no drainage in canister,elevated BLE on pillows, tuned and repositioned every 2 hours when patient allows, refuses at times, incontinent of bowel but no BM this shift, cano catheter patent with urine very dark in color, clean inter-dry between abdomen folds, Mepilex intact on sacrum ulcer, able to let needsknown, no acute changes overnight, slept well , hourly rounding completed 02/09/24 2304, BP:94/63, Temp:37 ??C (98.6 ??F), Temp src:Oral, Pulse:72, Resp:16, SpO2:92 % Willis Méndez RN, 02/10/2024 5:53 AM Neurologic/Cognitive Within Defined Limits HEENT Assessment Within Defined Limits except for: Teeth Symptoms: Tooth/teeth missing Cardiac Within Defined Limits Respiratory Within defined limits Neurovascular Assessment Within Defined Limits except for: Neurovascular LLE Sensation: Tenderness and sensation decreased Neurovascular RLE Sensation: Tenderness and sensation decreased Pedal Pulse: 1+ Edema Present: Yes Dependent: 1+ Right Lower Extremity: 1+ Left Lower Extremity: 1+ Comments: Hx neuropathy Gastrointestinal Assessment Within Defined Limits except for: Abdominal appearance: Distended, rounded, contour irregular and taut Palpation firm - all quadrants Additional GI Signs/Symptoms: abdominal pain, abdominal discomfort and fecal incontinence Comments: Ascites Stool (unmeasured): 1 (02/06/241799) Stool Amount: small (02/09/242013) Stool Color: black (02/09/242013) Stool Consistency: liquid (02/09/242013) Genitourinary Assessment Within Defined Limits except for: Voiding: Urinary catheter in place Urine characteristics: , concentrated Genitalia signs/symptoms: Labial edema and labial redness Musculoskeletal Assessment Within Defined Limits except for: Musculoskeletal Assessment: General Mobility: Moderately impairedJoint Tenderness left - ankle right - hip, knee, foot and ankle Range of Motion: LLE - mildly impaired RLE - moderately impaired Integumentary Assessment Within Defined Limits except for: Skin Assessment Color/Characteristics - redness, blanchable Color/Characteristics Location - under abd folds Moisture - moist Turgor - slow return to baseline Integrity - see Avatar LDA documentation and rashes Integrity Location - abd folds Patient Lines/Drains/Airways Status Active LDAs Name Placement date Placement time Site Days Peripheral IV 02/02/24 20 gauge Anterior;Right Forearm 02/02/24 1519 -- 7 Rash 02/02/24 2347 groin 02/02/24 2347 -- 7 Wound 02/03/24 Pretibial Left 02/03/24 0104 Pretibial 7 Wound 02/03/24 Pedal Anterior;Right 02/03/24 0636 Pedal 6 Wound 02/03/24 Ulceration Sacrum 02/03/24 1200 Sacrum 6 Wound 02/05/24 Incision Knee Anterior;Right 02/05/24 1331 Knee 4 Wound 02/05/24 Incision Leg Distal;Upper;Right 02/05/24 1443 Leg 4 (NPWT) Negative Pressure Wound Therapy Pretibial Proximal;Right;Lateral;Inner 02/05/24 1514 -- 4 Psychosocial Within Defined Limits * Nursing Assessment - Willis Méndez RN - 02/09/2024 4:38 PM CDT Nursing Assessment Head to Toe Head to Toe Assessment Shift Summary Evening Nursing shift note Pt alert and oriented x 4, anxious at time, C/o RLE pain 05/14, given PRN Oxycodone 10 mg and scheduled tylenol for pain, also C/o abd pain, very distended,right hip island dressing intact with old drainage, right lower leg bladimir wrap dressing dry and intact, wound vac with no drainage in canister,elev ated BLE on pillows, tuned and repositioned every 2 hours when patient allows, incontinent of bowel, x 1 BM this shift, cano catheter patent with urine very dark in color, abdomen folds cleaned, applied nystatin powder and inter-dry changed,Mepilex intact on sacrum ulcer, resting between care, able to let needs known 02/09/24 1545, BP:90/57, Temp:37.2 ??C (98.9 ??F), Temp src:Oral, Pulse:76, Resp:16, SpO2:96 % Willis Méndez RN, 02/09/2024 10:17 PM Neurologic/Cognitive Within Defined Limits HEENT Assessment Within Defined Limits except for: Teeth Symptoms: Tooth/teeth missing Cardiac Within Defined Limits Respiratory Within defined limits Neurovascular Assessment Within Defined Limits except for: Neurovascular LLE Sensation: Tenderness and sensation decreased Neurovascular RLE Sensation: Tenderness and sensation decreased Pedal Pulse: 1+ Edema Present: Yes Dependent: 1+ Right Lower Extremity: 1+ Left Lower Extremity: 1+ Comments: Hx neuropathy Gastrointestinal Assessment Within Defined Limits except for: Abdominal appearance: Distended, rounded, contour irregular and taut Palpation firm - all quadrants Additional GI Signs/Symptoms: abdominal pain, abdominal discomfort and fecal incontinence Comments: Ascites Stool (unmeasured): 1 (02/06/241799) Stool Amount: small (02/09/242013) Stool Color: black (02/09/242013) Stool Consistency: liquid (02/09/242013) Genitourinary Assessment Within Defined Limits except for: Voiding: Urinary catheter in place Urine characteristics: , concentrated Genitalia signs/symptoms: Labial edema and labial redness Musculoskeletal Assessment Within Defined Limits except for: Musculoskeletal Assessment: General Mobility: Moderately impairedJoint Tenderness left - ankle right - hip, knee, foot and ankle Range of Motion: LLE - mildly impaired RLE - moderately impaired Integumentary Assessment Within Defined Limits except for: Skin Assessment Color/Characteristics - redness, blanchable Color/Characteristics Location - under abd folds Moisture - moist Turgor - slow return to baseline Integrity - see Avatar LDA documentation and rashes Integrity Location - abd folds Patient Lines/Drains/Airways Status Active LDAs Name Placement date Placement time Site Days Peripheral IV 02/02/24 20 gauge Anterior;Right Forearm 02/02/24 1519 -- 7 Rash 02/02/24 2347 groin 02/02/24 2347 -- 6 Wound 02/03/24 Pretibial Left 02/03/24 0104 Pretibial 6 Wound 02/03/24 Pedal Anterior;Right 02/03/24 0636 Pedal 6 Wound 02/03/24 Ulceration Sacrum 02/03/24 1200 Sacrum 6 Wound 02/05/24 Incision Knee Anterior;Right 02/05/24 1331 Knee 4 Wound 02/05/24 Incision Leg Distal;Upper;Right 02/05/24 1443 Leg 4 (NPWT) Negative Pressure Wound Therapy Pretibial Proximal;Right;Lateral;Inner 02/05/24 1514 -- 4 Psychosocial Within Defined Limits * Nursing Assessment - Rozina Lainez RN - 02/09/2024 10:40 AM CDT Nursing Assessment Head to Toe Head to Toe Assessment Shift Summary Pt alert, oriented x4. C/o pain to abd, very distended. Turned to sides as pt allows. Large drainage from right abd skin fold wounds and right thigh posterior skin tear - changed BLADIMIR and linens. Large bruising to right hip region. Eating well. Pleasant. Medicated per MAR pain to RLE, abd. Rozina Lainez RN, 02/09/2024 1:12 PM Neurologic/Cognitive Within Defined Limits HEENT Assessment Within Defined Limits except for: Teeth Symptoms: Tooth/teeth missing Cardiac Within Defined Limits Respiratory Within defined limits Neurovascular Assessment Within Defined Limits except for: Neurovascular LLE Sensation: Tenderness and sensation decreased Neurovascular RLE Sensation: Tenderness and sensation decreased Pedal Pulse: 1+ Edema Present: Yes Dependent: 1+ Right Lower Extremity: 1+ Left Lower Extremity: 1+ Comments: Hx neuropathy Gastrointestinal Assessment Within Defined Limits except for: Abdominal appearance: Distended, rounded, contour irregular and taut Additional GI Signs/Symptoms: abdominal pain, abdominal discomfort, fecal incontinence and diarrhea Comments: Ascites Stool (unmeasured): 1 (02/06/24 1800) Stool Amount: small (02/09/24 1000) Stool Color: brown (02/09/24 1000) Stool Consistency: liquid (02/09/24 1000) Genitourinary Assessment Within Defined Limits except for: Voiding: Urinary catheter in place Urine characteristics: , concentrated Genitalia signs/symptoms: Labial edema and labial redness Musculoskeletal Assessment Within Defined Limits except for: Musculoskeletal Assessment: General Mobility: Moderately impairedJoint Tenderness left - ankle right - hip, knee, foot and ankle Range of Motion: LLE - mildly impaired RLE - moderately impaired Integumentary Assessment Within Defined Limits except for: Skin Assessment Color/Characteristics - redness, blanchable Color/Characteristics Location - under abd folds Moisture - moist Turgor - slow return to baseline Integrity - see Avatar LDA documentation and rashes Integrity Location - abd folds Patient Lines/Drains/Airways Status Active LDAs Name Placement date Placement time Site Days Peripheral IV 02/02/24 20 gauge Anterior;Right Forearm 02/02/24 1519 -- 6 Peripheral IV 02/02/24 20 gauge Anterior;Left Forearm 02/02/24 2019 -- 6 Rash 02/02/24 2347 groin 02/02/24 2347 -- 6 Wound 02/03/24 Pretibial Left 02/03/24 0104 Pretibial 6 Wound 02/03/24 Pedal Anterior;Right 02/03/24 0636 Pedal 6 Wound 02/03/24 Ulceration Sacrum 02/03/24 1200 Sacrum 5 Wound 02/05/24 Incision Knee Anterior;Right 02/05/24 1331 Knee 3 Wound 02/05/24 Incision Leg Distal;Upper;Right 02/05/24 1443 Leg 3 (NPWT) Negative Pressure Wound Therapy Pretibial Proximal;Right;Lateral;Inner 02/05/24 1514 -- 3 Psychosocial Within Defined Limits * Nursing Assessment - Willis Méndez RN - 02/09/2024 5:08 AM CDT Nursing Assessment Head to Toe Head to Toe Assessment Shift Summary NOC Nursing shift note Pt alert and oriented x 4, on room air, vitals stable. IV Antibiotic per arereported RLE pain 05/14,given scheduled tylenol and PRN Oxycodone 10 mg for pain, RLE bladimir dressing clean, dry and intact, wiggles toes, cool to touch. NPWT -50 mmHg continuous with no current output, Assist x 2 to reposition but patient sometimes refusing turns or allowing only microturns d/t pain and fear of pain, Abdomen very distended and tender to touch, cano catheter with urine very dark in color, Anti fugal topical and powder applied to abdominal skin folds redness, no acute changes overnight, slept well, able to let needs known 02/08/24 2351, BP:91/57, Temp:36.9 ??C (98.5 ??F), Temp src:Oral, Pulse:75, Resp:16, SpO2:95 % Willis Méndez RN, 02/09/2024 5:47 AM Neurologic/Cognitive Assessment Within Defined Limits except for: [...] and distended Palpation firm - tender - Additional GI Signs/Symptoms: abdominal discomfort Stool (unmeasured): 1 (02/06/24 1800) Stool Amount: small (02/08/242111) Stool Color: brown (02/08/242111) Stool Consistency: loose (02/08/242111) Genitourinary Assessment Within Defined Limits except for: Voiding: Urinary catheter in place Musculoskeletal Assessment Within Defined Limits except for: Musculoskeletal Assessment: General Mobility: Moderately impairedJoint Tenderness right - hip and knee Range of Motion: RLE - moderately impaired and severely impaired Integumentary Assessment Within Defined Limits except for: Skin Assessment Integrity - excoriation, rashes and see Avatar LDA documentation Integrity Location - RLE incision, sacral wound, abdominal folds, groin rashes Patient Lines/Drains/Airways Status Active LDAs Name Placement date Placement time Site Days Peripheral IV 02/02/24 20 gauge Anterior;Right Forearm 02/02/24 1519 -- 6 Peripheral IV 02/02/24 20 gauge Anterior;Left Forearm 02/02/24 2019 -- 6 Rash 02/02/24 2347 groin 02/02/24 2347 -- 6 Rash 02/02/24 2348 02/02/24 2348 -- 6 Wound 02/03/24 Pretibial Left 02/03/24 0104 Pretibial 6 Wound 02/03/24 Pedal Anterior;Right 02/03/24 0636 Pedal 5 Wound 02/03/24 Ulceration Sacrum 02/03/24 1200 Sacrum 5 Wound 02/05/24 Incision Knee Anterior;Right 02/05/24 1331 Knee 3 Wound 02/05/24 Incision Leg Distal;Upper;Right 02/05/24 1443 Leg 3 (NPWT) Negative Pressure Wound Therapy Pretibial Proximal;Right;Lateral;Inner 02/05/24 1514 -- 3 Psychosocial Assessment Within Defined Limits except for: Psychosocial Assessment: Observed Patient Behaviors: Anxious/afraid/apprehensive Family Behavior: not present * Nursing Assessment - Gabrielle Manning RN - 02/08/2024 10:31 PM CDT Nursing Assessment Head to Toe Head to Toe Assessment Shift Summary Shift Summary Neurologic/Cognitive Within Defined Limits Comments: Sleeping between cares HEENT Within Defined Limits Cardiac Within Defined Limits Respiratory Within defined limits Neurovascular Assessment Within Defined Limits except for: Edema Present: Yes Generalized: 3+ Right Upper Extremity: 2+ Left Upper Extremity: 2+ Right Lower Extremity: 3+ Left Lower Extremity: 3+ Perineal: 2+ Gastrointestinal Within Defined Limits Comments: LBM 02/08/24 Stool (unmeasured): 1 (02/06/24 1800) Stool Amount: small (02/08/242111) Stool Color: brown (02/08/242111) Stool Consistency: loose (02/08/242111) Genitourinary Assessment Within Defined Limits except for: Voiding: Urinary catheter in place Comments: Urine brown Musculoskeletal Assessment Within Defined Limits except for: Musculoskeletal Assessment: Joint Tenderness right - hip and knee Range of Motion: RLE - severely impaired Integumentary Assessment Within Defined Limits except for: Skin Assessment Integrity - see Avatar LDA documentation Integrity Location - RLE surgicla sites, vac, dsg. Paracentesis sites x 2. Comments: Repositioning q2h. BLE elevated on pillows. Patient Lines/Drains/Airways Status Active LDAs Name Placement date Placement time Site Days Peripheral IV 02/02/24 20 gauge Anterior;Right Forearm 02/02/24 1519 -- 6 Peripheral IV 02/02/24 20 gauge Anterior;Left Forearm 02/02/24 2019 -- 6 Rash 02/02/24 2347 groin 02/02/24 2347 -- 5 Rash 02/02/24 2348 02/02/24 2348 -- 5 Wound 02/03/24 Pretibial Left 02/03/24 0104 Pretibial 5 Wound 02/03/24 Pedal Anterior;Right 02/03/24 0636 Pedal 5 Wound 02/03/24 Ulceration Sacrum 02/03/24 1200 Sacrum 5 Wound 02/05/24 Incision Knee Anterior;Right 02/05/24 1331 Knee 3 Wound 02/05/24 Incision Leg Distal;Upper;Right 02/05/24 1443 Leg 3 (NPWT) Negative Pressure Wound Therapy Pretibial Proximal;Right;Lateral;Inner 02/05/24 1514 -- 3 Psychosocial Within Defined Limits * Interval Note Provider - Denia Juan MD - 02/08/2024 3:32 PM CDT Please do not cosign the following note. It is for tracking purposes only. PROCEDURES I performed the following procedures: Procedural Sedation Denia Juan MD, 02/08/2024 3:32 PM * Nursing Assessment - Gabrielle Manning, RN - 02/08/2024 10:00 AM CDT Nursing Assessment Head to Toe Head to Toe Assessment Shift Summary A&O x 4, sleeping between cares. Paracentesis today. No PT/OT. Repositioning q2h. PIV x 2. All meds as per DEC. See nursing assessment below. Neurologic/Cognitive Within Defined Limits HEENT Within Defined Limits Cardiac Within Defined Limits Respiratory Within defined limits Neurovascular Assessment Within Defined Limits except for: Edema Present: Yes Dependent: 3+ Right Upper Extremity: 2+ Left Upper Extremity: 2+ Right Lower Extremity: 3+ Left Lower Extremity: 3+ Perineal: 2+ Comments: Ascites and peripheral edema Gastrointestinal Assessment Within Defined Limits except for: Abdominal appearance: Rounded and distended Additional GI Signs/Symptoms: abdominal pain and fecal incontinence Comments: RLQ parancetesis sites x 2 with dermabond Stool (unmeasured): 1 (02/06/24 1800) Stool Amount: large (02/06/24 1100) Stool Color: light brown (02/06/24 1100) Stool Consistency: liquid (02/06/24 1100) Genitourinary Assessment Within Defined Limits except for: Voiding: Urinary catheter in place Musculoskeletal Assessment Within Defined Limits except for: Musculoskeletal Assessment: General Mobility: Moderately impairedJoint Tenderness right - hip and knee Range of Motion: RLE - moderately impaired Comments: NWB, bedrest Integumentary Assessment Within Defined Limits except for: Skin Assessment Integrity - see Avatar LDA documentation Integrity Location - RLQ paracentesis sites x 2, RLE surgial sites with wound vac Patient Lines/Drains/Airways Status Active LDAs Name Placement date Placement time Site Days Peripheral IV 02/02/24 20 gauge Anterior;Right Forearm 02/02/24 1519 -- 6 Peripheral IV 02/02/24 20 gauge Anterior;Left Forearm 02/02/24 2019 -- 5 Rash 02/02/24 2347 groin 02/02/24 2347 -- 5 Rash 02/02/24 2348 02/02/24 2348 -- 5 Wound 02/03/24 Pretibial Left 02/03/24 0104 Pretibial 5 Wound 02/03/24 Pedal Anterior;Right 02/03/24 0636 Pedal 5 Wound 02/03/24 Ulceration Sacrum 02/03/24 1200 Sacrum 5 Wound 02/05/24 Incision Knee Anterior;Right 02/05/24 1331 Knee 3 Wound 02/05/24 Incision Leg Distal;Upper;Right 02/05/24 1443 Leg 3 (NPWT) Negative Pressure Wound Therapy Pretibial Proximal;Right;Lateral;Inner 02/05/24 1514 -- 3 Psychosocial Within Defined Limits * Nursing Assessment - Allie Alexandra RN - 02/08/2024 4:24 AM CDT Nursing Assessment Head to Toe Head to Toe Assessment Shift Summary [id number] Pt A&Ox4. Endorsed pain to to RLE. PRN given per dec. Pt sleeping on reassessment. Numbness to RLE has peripheral neuropathy. Other CMS intact. Leg elevated. Cano placed at 2350 for retention. Pt tolerated well. Cano draining dark brown urine. Small BM this [...] urinary retention. NO spontaneous urine since her cano was removed over 24 hours ago. She has been straight cathed tsince then. Receiving diuretics. Bladder scan will be difficult to interpret in the setting of ascites. Plan: - replace cano - may need outpatient urology follow-up Dr. [...] report. Patient abdomen very extended and hard. Pairer notedno urine output and straight cath for 300 ml at 1400. Patient reports being incontinent at baselineand was incontinent of stool one time this shift. Pairer placed external catheter on patient at 1700 after diuretic administration. Patient very anxious when repositioning . Wound vac failed and teletypewriter installer notified ortho provider. Provider reports that wound vac is just over pin site and can go withoutit if unable to get a new one tonight. Patients groin is raw and red and teletypewriter installer provided nystatin and lotion to area. Wound care done per order by teletypewriter installer to coccyx. Patient does not tolerate repositioning [...] Ulceration Sacrum 02/03/24 1200 Sacrum 4 Wound 05/03/24 Incision Knee Anterior;Right 02/05/24 1331 Knee 2 [...] Toe Head to Toe Assessment Shift Summary [id number] Pt A&Ox4. Endorsed pain to to RLE. [...] light brown (02/06/24 1100) Stool Consistency: liquid (05/04/24 1100) Genitourinary Assessment Within Defined Limits except [...] Using bedpan for voiding since removal of cano catheter, 170 mL residual post void. Loose [...] of pain. [facility] and current skin problems. Mepilex on sacral wound. Re-educated on and encouraging use of IS hourly. Abdomen very distended, small yellow fluid draining into R abdominal bag. Pt denied nausea, sob, cp. Cano catheter removed per order, at 1100; will [...] 02/02/24 2347 -- 3 Rash 02/02/24 2348 02/02/242347 -- 3 Wound 02/03/24 Pretibial Left 02/03/24 [...] Toe Head to Toe Assessment Shift Summary [id number] Pt Sleeping upon shift change. Endorsed pain to to RLE. PRN given per dec. Pt sleeping on reassessment. POD #0. Numbness to RLE. Other CMS intact. Leg elevated and ICE pack provided. Paracentesis site draining small output. Cano in place draining well. Pt drinking fluids well. Pt informed teletypewriter installer she will call when she needs to be positioned . Allie Alexandra, RN, 02/06/2024 3:34 AM BP 95/64 (Cuff [...] colored (02/05/24 0200) Stool Consistency: liquid (02/05/24 020) Genitourinary Assessment Within Defined Limits except for: [...] Yellow fluid draining into R abdominal bag. Cano catheter in place draining urine. RLE bladimir [...] Jorge MD - 02/05/2024 1:31 PM CDT [facility] Immediate Post Operative Note Note written: [...] Implant Name Type Inv. Item Serial No. Help Desk Operator Lot No. LRB No. Used Action [employer] [id number] Krystle [employer] [id number] [employer] [id number] Right 1 Implanted 5.0X60MM 2361-5060S Screw/[place] 5.0X60MM 2361-5060S [employer] [id number] Right 1 Implanted 5.0X70MM 2361-5070S Screw/[place]on 5.0X70MM 2361-5070S [employer] [id number] Right 1 Implanted 5.0X75MM ADV 2361-5075S Screw/[place] 5.0X75MM ADV 2361-5075S [employer] [id number] Right 1 Implanted FREEHAND DRILL [id number] Drill bit/kiara FREEHAND DRILL [id number] [employer] [id number] Right1 Implanted 5.0X42.5MM 2360-5042S Screw/[place] 5.0X42.5MM 2360-5042S [employer] [id number] Right 1 Implanted Intraoperative Findings: see op [...] check Vignesh Jorge MD Orthopaedic Surgery PGY-3 [facility] Orthopaedic Trauma Service * Nursing Assessment - Nino Simpson RN - 02/05/2024 10:39 AM CDT Nursing Assessment Head to Toe Head to Toe Assessment Shift Summary Pt alert and oriented on room air, NPO for OR procedure this afternoon. Pain managed with prn oxycodone, has chronic neuropathy BLE. Distended abdomen with yellow fluid drainage into bag. Cano catheter in place draining mili concentrated urine. [...] 3/4 in length Right Antecubital 02/02/246 -- 2 Rash 02/02/24 2347 groin 02/02/24 [...] RN - 02/05/2024 12:19 AM CDT Summary: [id number] Nursing Assessment Head to Toe Head to Toe Assessment Shift Summary Pt is A&OX4 with VSS on RA. Pt has very distended and taut stomach, paracentesis site drained 625 mL yellow fluid from ostomy bag. NPO status maintained. Cano catheter in place draining mili concentrated urine. Pt reports neuropathy at baseline and CMS is intact to RLE. This teletypewriter installer attempted to give CHG bath and pt [...] 02/02/24 2347 groin 02/02/242346 -- 2 Rash 02/02/248 02/02/242347 -- 2 Wound 02/03/24 Pretibial Left 02/03/24 0104 Pretibial 1 Wound 02/03/24 Pedal Anterior;Right 02/03/24 0636 Pedal 1 Wound 02/03/24 Ulceration Sacrum 02/03/24 1200 Sacrum 1 Urinary Catheter 02/02/24 1714 -- 2 Psychosocial Within Defined Limits * Nursing Assessment - Thu Lowery RN - 02/04/2024 10:17 PM CDT Summary: [id number] Nursing Assessment Head to Toe Head to Toe Assessment Shift Summary Pt is A&OX4 with VSS on RA. Pt has R femur fx (closed) and is on traction to R leg. Pt has largely distended and taut stomach, paracentesis site drained 120 mL yellow fluid this shift from ostomybag. Pt is NPO at 11:59pm for procedure tomorrow. Cano catheter in place draining mili concentrated urine. Pt reports neuropathy at baseline and CMS is intact to RLE. Nystatin and antifungal cream a pplied to bilateral abdominal/groin folds. Prn oxycodone given for pain 7/10 to RLE. Will continue to monitor and [...] -- 2 Rash 02/02/242346 groin 02/02/242346 -- 1 Rash 02/02/24 2348 [...] suppository was given yesterday and had BM. Cano catheter in placedraining scant dark mili urine. [...] Rash 02/02/242346 groin 02/02/242346 -- 1 Rash 02/02/248 02/02/242347 -- 1 Wound 02/03/24 Pretibial Left [...] wound on buttock was covered with Mepilex. Cano patent and in place. Bowel incontinent, 1 [...] is constipated, bowel medication administered per order. Cano catheter in place draining mili urine. Patient [...] * Interdisciplinary Note - Carter Maurer APRN, HAND BRAILLE TRANSCRIBER - 02/03/2024 12:38 PM CDT SURGERY PROVIDER [...] Carter Maurer APRN, CNP, 02/03/2024 12:38 PM [facility] Department of Surgery Pager: via telemedRealMatch * Nursing Assessment - Chelsi Mehta RN - 02/03/2024 6:35 AM CDT Nursing Assessment Head to Toe Head to Toe Assessment Shift Summary Shift Summary Pt arrived to [facility] from ED AT AROUND 1130 Admitted for [...] femur, initial encounter for closed fracture ([facility]) Humphrey Rose MD, 02/02/2024 4:55 PM documented in this encounter Plan of Treatment Upcoming Encounters Date Type Department Care Team (Late st Contact Info) Description 03/03/2024 10:00 AM CDT [facility] [address] [place] [id number] Lia Mcclellan PA-C [address] [place] [id number] Scheduled Discharge Disposition: Discharged to home or self care (routine discharge) 03/17/2024 9:45 AM CDT [facility]ointment [facility] [address] [place] [id number] Scheduled Discharge Disposition: Discharged to home or self care (routine discharge) 03/17/2024 10:00 AM CDT [facility] [address] [place] [id number] Dayo Henning MD [address] [address] Scheduled Discharge Disposition: Discharged to home or self care (routine discharge) Pending Results Name Type Priority Associated Diagnoses Date /Time PREALBUMIN Lab Routine 02/27/2024 4:2 2 PM CDT Scheduled Orders Name Type Priority Associated Diagnoses Orde r Schedule XR FEMUR RIGHT AP + LAT* Imaging Routine Other fracture of right femur, initial encounter for closed fracture ([facility]) Expected: 03/19/2024 (Approximate), Expires: 04/18/2025 PANEL BASIC METABOLIC (BMP) Lab Routine every morning un til discontinued starting 02/28/2024 CALCIUM,IONIZED Lab Routine every mor angel until discontinued starting 02/28/2024, 1 completed MAGNESIUM Lab Routine every morning until discontinued starting 02/28/2024, 1 completed PHOSPHORUS Lab Routine every morning until discontinued starting 02/28/2024, 1 completed TRIGLYCERIDE Lab Routine every Thursday and until discontinued starting 02/29/2024 PANEL HEPATIC FUNCTION Lab Routine ev jose jaun Thursday and until discontinued starting 02/29/2024 PREALBUMIN Lab Routine one time for 1 Occurrences starting 02/27/2024 until 02/27/2024 documented as of this encounter Procedures The [...] CDT PHOSPHORUS Routine 02/28/2024 6:00 AM CDT PANEL BASIC METABOLIC (BMP) Routine 02/28/2024 6:00 AM CDT MAGNESIUM Routine 02/28/2024 6:00 AM CDT PC IONIZED,CALCIUM Routine 02/28/2024 6: 00 AM CDT POC GLUCOSE Routine 02/27/2024 9:18 PM CDT POC GLUCOSE Routine 02/27/2024 4:32 PM CDT XR PICC LINE PLACE CHECK RIGHT STAT 02/27/2024 1:15 PM CDT POC GLUCOSE Routine 02/27/2024 11:55 AM CDT PICC LINE Routine 02/27/2024 11:40 AM CDT PC LAB CBC W/DIFF & PLT Routine 02/27/2024 7:16 AM CDT PC TRIGLYCERIDES Routine 02/27/2024 7:16 AM CDT PHOSPHORUS Routine 02/27/2024 7:16 AM CDT PANEL BASIC METABOLIC (BMP) Routine 02/27/2024 7:16 AM CDT MAGNESIUM Routine 02/27/2024 7:16 AM CDT POC GLUCOSE [...] CDT PHOSPHORUS Routine 02/26/2024 7:17 AM CDT PANEL BASIC METABOLIC (BMP) Routine 02/26/2024 7:17 AM CDT MAGNESIUM Routine 02/26/2024 7:17 AM CDT POC GLUCOSE Routine 02/26/2024 6:23 AM CDT POC GLUCOSE Routine 02/26/2024 12:01 AM CDT POC GLUCOSE Routine 02/25/2024 9:33 PM CDT XR ABDOMEN 1 VIEW* Routine 02/25/2024 10:45 AM CDT PC LAB CBC W/DIFF & PLT Routine 02/25/2024 6:22 AM CDT PHOSPHORUS Routine 02/25/2024 6:22 AM CDT PANEL BASIC METABOLIC (BMP) Routine 02/25/2024 6:22 AM CDT MAGNESIUM Routine 02/25/2024 6:22 AM CDT POC GLUCOSE Routine 02/24/2024 5:53 PM CDT TC LAB BLOOD DRAW BY VENIPUNCTURE Routine 02/24/2024 11:25 AM CDT PROTHROMBIN (PT) & INR Routine 02/24/2024 11:25 AM CDT PANEL BASIC METABOLIC (BMP) Routine 02/24/2024 11:25 AM CDT MAGNESIUM Routine 02/24/2024 11:25 AM CDT PANEL HEPATIC FUNCTION Routine 02/24/2024 11:25 AM CDT XR ABDOMEN 1 VIEW* Routine 02/24/2024 9: 02 AM CDT POC GLUCOSE Routine 02/24/2024 6:51 AM CDT POC GLUCOSE Routine 02/24/2024 1:36 AM CDT POC GLUCOSE Routine 02/23/2024 6:39 PM CDT XR ABDOMEN 1 VIEW* Routine 02/23/2024 2: 31 PM CDT PANEL BASIC METABOLIC (BMP) Routine 02/23/2024 8:46 AM CDT MAGNESIUM Routine 02/23/2024 8:46 AM CDT PC LAB [...] POC GLUCOSE Routine 02/21/2024 6:03 PM CDT PHOSPHORUS Routine 02/21/2024 8:38 AM CDT PANEL BASIC METABOLIC (BMP) Routine 02/21/2024 8:38 AM CDT MAGNESIUM Routine 02/21/2024 8:38 AM CDT PC LACTATE (LACTIC ACID) Routine 02/21/2024 8:38 AM CDT PC IONIZED,CALCIUM Routine 02/21/2024 8: 38 AM CDT TC LAB BLOOD DRAW BY VENIPUNCTURE Routine 02/21/2024 8:38 AM CDT PROTHROMBIN (PT) & INR Timed 02/20/2024 8:37 PM CDT PHOSPHORUS Timed 02/20/2024 8:37 PM CDT PANEL BASIC METABOLIC (BMP) Timed 02/20/2024 8:37 PM CDT MAGNESIUM Timed 02/20/2024 8:37 PM CDT PC IONIZED,CALCIUM Timed 02/20/2024 8: 37 PM CDT HEMOGLOBIN Timed 02/20/2024 8:[address] ABDOMEN/PELVIS W/IV CON Routine 02/20/2024 7:05 PM CDT POC GLUCOSE Routine 02/20/2024 6:32 PM CDT PC LACTATE (LACTIC ACID) Timed 02/20/2024 5:38 PM CDT XR ABDOMEN 1 VIEW* Routine 02/20/2024 4: 42 PM CDT PANEL BASIC METABOLIC (BMP) Routine 02/20/2024 7:44 AM CDT PANEL HEPATIC FUNCTION Routine 02/20/2024 7:44 AM CDT PC LAB CBC/PLT Routine 02/20/2024 7:44 AM CDT POC GLUCOSE Routine 02/20/2024 6:18 AM CDT POC GLUCOSE Routine 02/19/2024 9:24 PM CDT POC GLUCOSE Routine 02/19/2024 4:19 PM CDT PARACENTESIS Routine 02/19/2024 2:55 PM CDT IR PARACENTESIS Routine 02/19/2024 2:54 PM CDT POC GLUCOSE Routine 02/19/2024 11:06 AM CDT POC GLUCOSE Routine 02/19/2024 6:02 AM CDT PANEL BASIC METABOLIC (BMP) Routine 02/19/2024 5:03 AM CDT PC LAB CBC/PLT Routine 02/19/2024 5:03 AM CDT POC GLUCOSE [...] BLOOD,W-DIFF. CT. Routine 02/16/2024 2:55 PM CDT PROTHROMBIN (PT) & INR Routine 02/16/2024 8:12 AM CDT PANEL BASIC METABOLIC (BMP) Routine 02/16/2024 8:12 AM CDT MAGNESIUM Routine 02/16/2024 8:12 AM CDT PANEL HEPATIC FUNCTION Routine 02/16/2024 8:12 AM CDT PC LAB CBC/PLT Routine 02/16/2024 8:12 AM CDT POC GLUCOSE [...] FLEXIBLE SIGMOIDOSCOPY Routine 02/15/2024 9:55 AM CDT PROTHROMBIN (PT) & INR Routine 02/15/2024 6:48 AM CDT PHOSPHORUS Routine 02/15/2024 6:48 AM CDT PANEL BASIC METABOLIC (BMP) Routine 02/15/2024 6:48 AM CDT MAGNESIUM Routine 02/15/2024 6:48 AM CDT PANEL HEPATIC FUNCTION Routine 02/15/2024 6:48 AM CDT PC LAB CBC/PLT Routine 02/15/2024 6:48 AM CDT POC GLUCOSE [...] 1 VIEW* Routine 02/14/2024 10:42 AM CDT PROTHROMBIN (PT) & INR Routine 02/14/2024 8:18 AM CDT PHOSPHORUS Routine 02/14/2024 8:18 AM CDT PANEL BASIC METABOLIC (BMP) Routine 02/14/2024 8:18 AM CDT MAGNESIUM Routine 02/14/2024 8:18 AM CDT PANEL HEPATIC FUNCTION Routine 02/14/2024 8:18 AM CDT PC LAB CBC/PLT Routine 02/14/2024 8:18 AM CDT POC GLUCOSE Routine 02/14/2024 6:07 AM CDT POC GLUCOSE Routine 02/13/2024 11:59 PM CDT POC GLUCOSE Routine 02/13/2024 6:06 PM CDT POC GLUCOSE Routine 02/13/2024 11:46 AM CDT PANEL BASIC METABOLIC (BMP) Routine 02/13/2024 9:06 AM CDT PANEL HEPATIC FUNCTION Routine 02/13/2024 9:06 AM CDT PC LAB CBC/PLT Routine 02/13/2024 9:06 AM CDT POC GLUCOSE [...] 1 VIEW* Routine 02/12/2024 10:03 AM CDT PROTHROMBIN (PT) & INR Routine 02/12/2024 8:50 AM CDT PANEL BASIC METABOLIC (BMP) Routine 02/12/2024 8:50 AM CDT PANEL HEPATIC FUNCTION Routine 02/12/2024 8:50 AM CDT PC LACTATE (LACTIC ACID) Timed 02/12/2024 8:50 AM CDT PC LAB CBC/PLT Routine 02/12/2024 8:50 AM CDT POC GLUCOSE Routine 02/12/2024 6:52 AM CDT PC LACTATE (LACTIC ACID) Timed 02/12/2024 2:54 AM CDT POC GLUCOSE Routine 02/11/2024 10:43 PM CDT COLONOSCOPY-DIAGNOST IC Routine 02/11/2024 9:24 PM CDT PC LACTATE (LACTIC ACID) Timed 02/11/2024 8:51 PM CDT PC LACTATE (LACTIC ACID) STAT 02/11/2024 7:[address] ABDOMEN/PELVIS W/IV CON Routine 02/11/2024 2:22 PM CDT XR ABDOMEN 1 VIEW* Routine 02/11/2024 10:07 AM CDT PROTHROMBIN (PT) & INR Routine 02/11/2024 7:25 AM CDT PANEL BASIC METABOLIC (BMP) Routine 02/11/2024 7:25 AM CDT PANEL HEPATIC FUNCTION Routine 02/11/2024 7:25 AM CDT PC LAB CBC/PLT Routine 02/11/2024 7:25 AM CDT PHOSPHORUS Routine 02/11/2024 7:20 AM CDT MAGNESIUM Routine 02/11/2024 7:20 AM CDT TC LAB BLOOD DRAW BY VENIPUNCTURE Routine 02/10/2024 7:06 AM CDT PROTHROMBIN (PT) & INR Routine 02/10/2024 7:06 AM CDT PANEL BASIC METABOLIC (BMP) Routine 02/10/2024 7:06 AM CDT MAGNESIUM Routine 02/10/2024 7:06 AM CDT PANEL HEPATIC FUNCTION Routine 02/10/2024 7:06 AM CDT PC LAB CBC/PLT Routine 02/10/2024 7:06 AM CDT POC GLUCOSE [...] INR Routine 02/08/2024 8:19 AM CDT PANEL BASIC METABOLIC (BMP) Routine 02/08/2024 8:19 AM CDT PANEL HEPATIC FUNCTION Routine 02/08/2024 8:19 AM CDT POC GLUCOSE [...] INR Routine 02/06/2024 7:10 AM CDT PANEL BASIC METABOLIC (BMP) Routine 02/06/2024 7:10 AM CDT PANEL HEPATIC FUNCTION Routine 02/06/2024 7:10 AM CDT HEMOGLOBIN Routine [...] INR Routine 02/05/2024 9:15 AM CDT PANEL BASIC METABOLIC (BMP) Routine 02/05/2024 9:15 AM CDT PANEL HEPATIC FUNCTION Routine 02/05/2024 9:15 AM CDT PC LAB CBC/PLT Routine 02/05/2024 9:15 AM CDT POC GLUCOSE Routine 02/05/2024 6:02 AM CDT POC GLUCOSE Routine 02/04/2024 11:58 PM CDT HELD MICRO SPECIMEN Routine 02/04/2024 10:44 PM CDT PC CULTURE,BACTERIAL,DE [...] INR Routine 02/04/2024 6:40 AM CDT PANEL BASIC METABOLIC (BMP) Routine 02/04/2024 6:40 AM CDT PANEL HEPATIC FUNCTION Routine 02/04/2024 6:40 AM CDT PC LAB CBC/PLT Routine 02/04/2024 6:40 AM CDT PC CULTURE,BACTERIAL,DE FINATIVE,AEROBIC;BLO OD Timed 02/03/2024 12:13 PM CDT PC CULTURE,BACTERIAL,DE FINATIVE,AEROBIC;BLO OD Timed 02/03/2024 12:06 PM CDT PC LAB CBC W/DIFF & PLT Routine 02/03/2024 8:03 AM CDT PROTHROMBIN (PT) & INR Routine 02/03/2024 8:03 AM CDT PANEL BASIC METABOLIC (BMP) Routine 02/03/2024 8:03 AM CDT PANEL HEPATIC FUNCTION Routine 02/03/2024 8:[address] RIGHT [...] & INR STAT 02/02/2024 4:01 PM CDT LIPASE STAT 02/02/2024 4:01 [...] ABDOMINAL/GALLBLADDE R STAT 02/02/2024 3:40 PM CDT documented in this encounter Results * (ABNORMAL) POC GLUCOSE (02/29/2024 6:45 AM CDT) POC Glucose 105(H) 70 - 100 mg/dL [facility] Blood 02/29/2024 6:45 AM CDT Humphrey Rose MD LABORATORY [facility]INT [facility] CARE [address] [place] [address], [place] * POC GLUCOSE (02/28/2024 9:12 PM CDT) POC Glucose 94 70 - 100 mg/dL [facility] Blood 02/28/2024 9:12 PM CDT Humphrey Rose MD LABORATORY Performing Organization Address City/[facility]/ZIP Co de Phone Number [facility] [address] [place] [address], [place] * POC GLUCOSE (02/28/2024 4:38 PM CDT) POC Glucose 96 70 - 100 mg/dL [facility] Blood 02/28/2024 4:38 PM CDT Humphrey Rose MD LABORATORY Performing Organization Address City/[facility]/ZIP Co de Phone Number [facility] [address] [place] [address], [place] * (ABNORMAL) POC GLUCOSE (02/28/2024 11:38 AM CDT) POC Glucose 101(H) 70 - 100 mg/dL [facility] Blood 02/28/2024 11:3 8 AM CDT Humphrey Rose MD LABORATORY [facility] [address] [place] [address], [place] * POC GLUCOSE (02/28/2024 6:30 AM CDT) POC Glucose 91 70 - 100 mg/dL [facility] Blood 02/28/2024 6:30 AM CDT Humphrey Rose MD LABORATORY Performing Organization Address City/[facility] Co de Phone Number [facility] [address] [place] [address], * PHOSPHORUS (02/28/2024 6:00 AM CDT) Phosphorus 3.7 2.5 - 4.5 mg/dL [facility] Blood 02/28/2024 6:00 AM CDT 02/28/2024 6:12 AM CDT Nino Ramírez MD LABORATORY Performing Organization Address [facility] Co de Phone Number [facility] [place] [address] * MAGNESIUM (02/28/2024 6:00 AM CDT) Pathologist [facility] Magnesium 2.0 1.6 - 2.6 mg/dL [facility] Blood 02/28/2024 6:00 AM CDT 02/28/2024 6:12 AM CDT Nino Ramírez MD LABORATORY Performing Organization Address [facility] Co de Phone Number [facility] [place] [address] * CALCIUM,IONIZED (02/28/2024 6:00 AM CDT) PH 7.38 7.32 - 7.42 [facility] ICA, Actual 4.57 4.40 - 5.20 mg/dL [facility] ICA, pH Corrected 4.52 4.40 - 5.20 mg/dL [facility] Blood 02/28/2024 6:00 AM CDT 02/28/2024 6:15 AM CDT Narrative [facility] - 02/28/2024 6:35 AM CDT Send specimen on ice! Nino Ramírez MD LABORATORY Performing Organization Address [facility]/ZIP Co de Phone Number [facility] [address] [address] * (ABNORMAL) PANEL BASIC METABOLIC (BMP) (02/28/2024 6:00 AM CDT) Sodium 133(L) 135 - 148 mmol/L [facility] Potassium 3.5 3.5 - 5.3 mmol/L [facility] Chloride 102 92 - 108 mmol/L [facility] AnGap 7(L) 8 - 16 mmol/L [facility] CO2 24 22 - 30 mmol/L [facility] Glucose 87 70 - 100 mg/dL [facility] BUN 9 6 - 20 mg/dL [facility] Creatinine 0.46(L) 0.50 - 1.00 mg/dL [facility] Calcium 8.0(L) 8.6 - 10.0 mg/dL [facility] eGFR (2020 CKD-EPI) 110 >=60 ml/min/1.7 3m2 [facility] Comment: The estimated glomerular filtration rate (eGFR) was calculated using the CKD-EPI 2020 creatinine equation, which does not include race as a factor. This equation is validated in individuals 18 years of age and older, and eGFR is normalized to a body surface area of 1.73m^2. Blood 02/28/2024 6:00 AM CDT 02/28/2024 6:12 AM CDT Nino Ramírez MD LABORATORY Performing Organization Address [facility] Co de Phone Number [facility] [address] [address] * (ABNORMAL) POC GLUCOSE (02/27/2024 9:18 PM CDT) POC Glucose 107(H) 70 - 100 mg/dL [facility] Blood 02/27/2024 9:18 PM CDT Humphrey Rose MD LABORATORY Performing Organization Address City/[facility]/ZIP Co de Phone Number [facility] [address] [place] [address], [place] * (ABNORMAL) POC GLUCOSE (02/27/2024 4:32 PM CDT) POC Glucose 105(H) 70 - 100 mg/dL [facility] Blood 02/27/2024 4:32 PM CDT Humphrey Rose MD LABORATORY Performing Organization Address City/[facility] Co de Phone Number [facility] [address] [place] [address], [place] * XR PICC LINE PLACEMENT CHECK RIGHT [...] Nava Nino Ramírez MD RAD XRAY * POC GLUCOSE (02/27/2024 11:55 AM CDT) POC Glucose 81 70 - 100 mg/dL [facility] Blood 02/27/2024 11:5 5 AM CDT Humphrey Rose MD LABORATORY Performing Organization Address City/[facility]/ZIP Co de Phone Number [facility] [address] [place] [address], [place] * PICC Line (02/27/2024 11:40 AM CDT) Narrative Patricia Dumont RN - 02/27/2024 11:40 AM CDT Patricia Dumont RN ? 02/27/2024 ??2:00 PM PICC Line Date/Time: 02/27/2024 11:40 AM Performed by: Patricia Dumont RN Authorized by: Nino Ramírez MD ?? [place] Protocol: ??Verbal consent obtained?: Yes ?Written consent [...] Checklist: ??Checklist completed: ??Yes ??Line placement observer: ??Stacy Laughlin RN ??Does line need to be [...] total length, 2 cm out secured with [id number]; AC to IS: 5 cm; Circumference 10 cm above AC: 24 cm) ??Catheter bondactor machine operator: ??Bard ??Lot Number: ??[id number] ??Pre-procedure: landmarks identified ?Ultrasound guidance: Yes ?Number [...] immediate complications Nino Ramírez MD PROCEDURES * TRIGLYCERIDE (02/27/2024 7:16 AM CDT) Triglyceride 138 <=150 mg/dL [facility] Comment: Interpretive Data <150 Normal 150-199 Borderline high 200-499 High >=500 Very high Blood 02/27/2024 7:16 AM CDT 02/27/2024 7:35 AM CDT Ernestine Toribio MD LABORATORY Performing Organization Address City/[facility] Co de Phone Number [facility] [address] [address] * PHOSPHORUS (02/27/2024 7:16 AM CDT) Phosphorus 3.2 2.5 - 4.5 mg/dL [facility] Blood 02/27/2024 7:16 AM CDT 02/27/2024 7:35 AM CDT Ernestine Toribio MD LABORATORY Performing Organization Address City/[facility] Co de Phone Number [facility] [address] [address] * MAGNESIUM (02/27/2024 7:16 AM CDT) Magnesium 2.2 1.6 - 2.6 mg/dL [facility] Blood 02/27/2024 7:16 AM CDT 02/27/2024 7:35 AM CDT Ernestine Toribio MD LABORATORY Performing Organization Address [facility] Co de Phone Number [facility] [address] [address] * (ABNORMAL) PANEL BASIC METABOLIC (BMP) (02/27/2024 7:16 AM CDT) Sodium 132(L) 135 - 148 mmol/L [facility] Potassium 3.6 3.5 - 5.3 mmol/L [facility] Chloride 101 92 - 108 mmol/L [facility] CO2 23 22 - 30 mmol/L [facility] AnGap 8 8 - 16 mmol/L [facility] Glucose 81 70 - 100 mg/dL [facility] BUN 9 6 - 20 mg/dL [facility] Creatinine 0.52 0.50 - 1.00 mg/dL [facility] Calcium 7.8(L) 8.6 - 10.0 mg/dL [facility] eGFR (2020 CKD-EPI) 107 >=60 ml/min/1.7 3m2 [facility] Comment: The estimated glomerular filtration rate (eGFR) was calculated using the CKD-EPI 2020 creatinine equation, which does not include race as a factor. This equation is validated in individuals 18 years of age and older, and eGFR is normalized to a body surface area of 1.73m^2. Blood 02/27/2024 7:16 AM CDT 02/27/2024 7:35 AM CDT Ernestine Toribio MD LABORATORY Performing Organization Address City/[facility]/ZIP Co de Phone Number [facility] [address] [address] * (ABNORMAL) CBC WITH PLTS/AUTO DIFF (02/27/2024 7:16 AM CDT) WBC 3.37(L) 4.00 - 10.00 k/cmm [facility] RBC 3.03(L) 3.90 - 5.20 m/cmm [facility] Hgb 9.1(L) 11.5 - 15.7 g/dL [facility] Hematocrit 29.5(L) 34.0 - 45.0 % [facility] MCV 97.4 80.0 - 100.0 fL [facility] MCH 30.0 25.0 - 32.0 pg [facility] MCHC 30.8(L) 31.0 - 36.0 g/dL [facility] RDW 14.4 11.5 - 14.5 % [facility] Plt 125(L) 150 - 400 k/cmm [facility] MPV 9.3 6.5 - 12.5 fL [facility] Automated Abs Neutrophil 1.31(L) 1.70 - 6.50 k/cmm [facility] Comment:Preliminary ANC, Fin al Result to Follow Abs Immature Granulocyte 0.01 0.00 - 0.09 k/cmm [facility] Comment:The Immature Granulo cyte Absolute count contains metamyelocytes and myelocytes. Abs Neutrophil 1.31(L) 1.70 - 6.50 k/cmm [facility] Abs Lymphocyte 1.63 0.80 - 4.00 k/cmm [facility] Abs Monocyte 0.32 0.20 - 1.00 k/cmm [facility] Abs Eosinophil 0.09 0.00 - 0.60 k/cmm [facility] Abs Basophil 0.01 0.00 - 0.20 k/cmm [facility] Blood 02/27/2024 7:16 AM CDT 02/27/2024 7:35 AM CDT Ernestine Toribio MD LABORATORY Performing Organization Address City/[facility] Co de Phone Number [facility] [address] [address] * POC GLUCOSE (02/27/2024 5:56 AM CDT) POC Glucose 84 70 - 100 mg/dL [facility] Blood 02/27/2024 5:56 AM CDT Humphrey Rose MD LABORATORY Performing Organization Address City/[facility]/ZIP Co de Phone Number [facility] [address] [place] [address], [place] * POC GLUCOSE (02/26/2024 11:54 PM CDT) POC Glucose 93 70 - 100 mg/dL [facility] Blood 02/26/2024 11:5 4 PM CDT Humphrey Rose MD LABORATORY Performing Organization Address [facility] Co de Phone Number [facility] [address] [place] [address], [place] * (ABNORMAL) POC GLUCOSE (02/26/2024 6:16 PM CDT) POC Glucose 128(H) 70 - 100 mg/dL [facility] Blood 02/26/2024 6:16 PM CDT Humphrey Rose MD LABORATORY Performing Organization Address [facility] Co de Phone Number [facility] [address] [place] [address], [place] * POTASSIUM (02/26/2024 4:52 PM CDT) Potassium 4.2 3.5 - 5.3 mmol/L [facility] Blood 02/26/2024 4:52 PM CDT 02/26/2024 5:19 PM CDT Ernestine Toribio MD LABORATORY Performing Organization Address City/[facility] Co de Phone Number [facility] [address] [place] [phone] * POC GLUCOSE (02/26/2024 11:58 AM CDT) POC Glucose 77 70 - 100 mg/dL [facility] Blood 02/26/2024 11:5 8 AM CDT Humphrey Rose MD LABORATORY Performing Organization Address City/[facility]/ZIP Co de Phone Number [facility] [address] [place] [address], [place] * XR ABDOMEN 1 VIEW* (02/26/2024 10:16 AM CDT) Anatomical Region Laterality Modality Abdomen [...] Persistent colonic dilatation. Reading Radiologist: Grover Ballesteros Ernestien Toribio MD RAD XRAY * (ABNORMAL) CBC WITH PLTS/AUTO DIFF (02/26/2024 7:17 AM CDT) WBC 3.06(L) 4.00 - 10.00 k/cmm [facility] RBC 3.05(L) 3.90 - 5.20 m/cmm [facility] Hgb 9.2(L) 11.5 - 15.7 g/dL [facility] Hematocrit 29.0(L) 34.0 - 45.0 % [facility] MCV 95.1 80.0 - 100.0 fL [facility] MCH 30.2 25.0 - 32.0 pg [facility] MCHC 31.7 31.0 - 36.0 g/dL [facility] RDW 14.8(H) 11.5 - 14.5 % [facility] Plt 144(L) 150 - 400 k/cmm [facility] MPV 9.8 6.5 - 12.5 fL [facility] Automated Abs Neutrophil 1.42(L) 1.70 - 6.50 k/cmm [facility] Comment:Preliminary ANC, Fin al Result to Follow Abs Immature Granulocyte 0.01 0.00 - 0.09 k/cmm [facility] Comment:The Immature Granulo cyte Absolute count contains metamyelocytes and myelocytes. Abs Neutrophil 1.42(L) 1.70 - 6.50 k/cmm [facility] Abs Lymphocyte 1.26 0.80 - 4.00 k/cmm [facility] Abs Monocyte 0.29 0.20 - 1.00 k/cmm [facility] Abs Eosinophil 0.06 0.00 - 0.60 k/cmm [facility] Abs Basophil 0.02 0.00 - 0.20 k/cmm [facility] Blood 02/26/2024 7:17 AM CDT 02/26/2024 7:53 AM CDT Ernestine Toribio MD LABORATORY Performing Organization Address City/[facility] Co de Phone Number [facility] [address] [address] * PHOSPHORUS (02/26/2024 7:17 AM CDT) Phosphorus 3.4 2.5 - 4.5 mg/dL [facility] Blood 02/26/2024 7:17 AM CDT 02/26/2024 7:54 AM CDT Ernestine Toribio MD LABORATORY Performing Organization Address City/[facility] Co de Phone Number [facility] [address] [address] * MAGNESIUM (02/26/2024 7:17 AM CDT) Magnesium 2.2 1.6 - 2.6 mg/dL [facility] Blood 02/26/2024 7:17 AM CDT 02/26/2024 7:54 AM CDT Ernestine Toribio MD LABORATORY [facility] [address] [address] * (ABNORMAL) PANEL BASIC METABOLIC (BMP) (02/26/2024 7:17 AM CDT) Sodium 132(L) 135 - 148 mmol/L [facility] Potassium 3.2(L) 3.5 - 5.3 mmol/L [facility] Chloride 99 92 - 108 mmol/L [facility] CO2 26 22 - 30 mmol/L [facility] AnGap 7(L) 8 - 16 mmol/L [facility] Glucose 80 70 - 100 mg/dL [facility] BUN 9 6 - 20 mg/dL [facility] Creatinine 0.49(L) 0.50 - 1.00 mg/dL [facility] Calcium 7.8(L) 8.6 - 10.0 mg/dL [facility] eGFR (2020 CKD-EPI) 108 >=60 ml/min/1.7 3m2 [facility] Comment: The estimated glomerular filtration rate (eGFR) was calculated using the CKD-EPI 2020 creatinine equation, which does not include race as a factor. This equation is validated in individuals 18 years of age and older, and eGFR is normalized to a body surface area of 1.73m^2. Blood 02/26/2024 7:17 AM CDT 02/26/2024 7:54 AM CDT Ernestine Toribio MD LABORATORY Performing Organization Address [facility] Co de Phone Number [address] [address] * POC GLUCOSE (02/26/2024 6:23 AM CDT) POC Glucose 78 70 - 100 mg/dL [facility] Blood 02/26/2024 6:23 AM CDT Humphrey Rose MD LABORATORY Performing Organization Address [facility]/ZIP Co de Phone Number [facility] [address] [place] [address] * POC GLUCOSE (02/26/2024 12:01 AM CDT) POC Glucose 76 70 - 100 mg/dL [facility] Blood 02/26/2024 12:0 1 AM CDT Humphrey Rose MD LABORATORY Performing Organization Address City/[facility]/ZIP Co de Phone Number [facility] [address] [place] [address], [place] * POC GLUCOSE (02/25/2024 9:33 PM CDT) POC Glucose 76 70 - 100 mg/dL [facility] Blood 02/25/2024 9:33 PM CDT Humphrey Rose MD LABORATORY Performing Organization Address [facility] Co de Phone Number [facility] [address] [place] [address], [place] * XR ABDOMEN 1 VIEW* (02/25/2024 10:45 AM CDT) Anatomical Region Laterality Modality Abdomen Computed Radiogr aphy 02/25/2024 11:2 4 AM CDT Impressions 02/25/2024 11:37 AM CDT Impression: Massive colonic dilation, similar to the prior studies. Reading Radiologist: Fantasma Tripathi Narrative 02/25/2024 11:37 AM CDT Technique: XR ABDOMEN 1 VIEW* Indication: Colonic distention s/p rectal tube. Evaluate for improvement. ?? Comparison: 02/24/2024 Findings: Total 4 AP spine views of the abdomen. Massive sigmoid colonic distention is again noted, probably similar to recent imaging. No rectal tube is directly visualized as reported in the clinical indication. Procedure Note Fantasma Tripathi MD - 02/25/2024 Technique: XR ABDOMEN 1 VIEW* Indication: Colonic distention s/p rectal tube. Evaluate for improvement. Comparison: 02/24/2024 Findings: Total 4 AP spine views of the abdomen. Massive sigmoid colonicdistention is again noted, probably similar to recent imaging. No rectaltube is directly visualized as reported in the clinical indication. IMPRESSION Impression: Massive colonic dilation, similar to the prior studies. Reading Radiologist: Fantasma Tripathi Ernestine Toribio MD RAD XRAY * PHOSPHORUS (02/25/2024 6:22 AM CDT) Phosphorus 3.5 2.5 - 4.5 mg/dL [facility] Blood 02/25/2024 6:22 AM CDT 02/25/2024 6:55 AM CDT Ernestine Toribio MD LABORATORY Performing Organization Address City/[facility]/ZIP Co de Phone Number [facility] [address] [address] * MAGNESIUM (02/25/2024 6:22 AM CDT) Magnesium 2.3 1.6 - 2.6 mg/dL [facility] Blood 02/25/2024 6:22 AM CDT 02/25/2024 6:55 AM CDT Ernestine Toribio MD LABORATORY Performing Organization Address City/[facility] Co de Phone Number [facility] [address] [address] * (ABNORMAL) CBC WITH PLTS/AUTO DIFF (02/25/2024 6:22 AM CDT) WBC 2.69(L) 4.00 - 10.00 k/cmm [facility] RBC 3.06(L) 3.90 - 5.20 m/cmm [facility] Hgb 9.2(L) 11.5 - 15.7 g/dL [facility] Hematocrit 28.9(L) 34.0 - 45.0 % [facility] MCV 94.4 80.0 - 100.0 fL [facility] MCH 30.1 25.0 - 32.0 pg [facility] MCHC 31.8 31.0 - 36.0 g/dL [facility] RDW 14.8(H) 11.5 - 14.5 % [facility] Plt 132(L) 150 - 400 k/cmm [facility] MPV 9.7 6.5 - 12.5 fL [facility] Automated Abs Neutrophil 1.09(L) 1.70 - 6.50 k/cmm [facility] Comment:Preliminary ANC, Fin al Result to Follow Abs Immature Granulocyte 0.01 0.00 - 0.09 k/cmm [facility] Comment:The Immature Granulo cyte Absolute count contains metamyelocytes and myelocytes. Abs Neutrophil 1.09(L) 1.70 - 6.50 k/cmm [facility] Abs Lymphocyte 1.25 0.80 - 4.00 k/cmm [facility] Abs Monocyte 0.25 0.20 - 1.00 k/cmm [facility] Abs Eosinophil 0.07 0.00 - 0.60 k/cmm [facility] Abs Basophil 0.02 0.00 - 0.20 k/cmm [facility] Blood 02/25/2024 6:22 AM CDT 02/25/2024 6:55 AM CDT Ernestine Toribio MD LABORATORY [facility] [address] [address] * (ABNORMAL) PANEL BASIC METABOLIC (BMP) (02/25/2024 6:22 AM CDT) Sodium 133(L) 135 - 148 mmol/L [facility] Potassium 3.1(L) 3.5 - 5.3 mmol/L [facility] Chloride 99 92 - 108 mmol/L [facility] CO2 27 22 - 30 mmol/L [facility] AnGap 7(L) 8 - 16 mmol/L [facility] Glucose 77 70 - 100 mg/dL [facility] BUN 10 6 - 20 mg/dL [facility] Creatinine 0.48(L) 0.50 - 1.00 mg/dL [facility] Calcium 7.8(L) 8.6 - 10.0 mg/dL [facility] eGFR (2020 CKD-EPI) 109 >=60 ml/min/1.7 3m2 [facility] Comment: The estimated glomerular filtration rate (eGFR) was calculated using the CKD-EPI 2020 creatinine equation, which does not include race as a factor. This equation is validated in individuals 18 years of age and older, and eGFR is normalized to a body surface area of 1.73m^2. Blood 02/25/2024 6:22 AM CDT 02/25/2024 6:55 AM CDT Ernestine Toribio MD LABORATORY Performing Organization Address [facility] Co de Phone Number [facility] [place] [address] * (ABNORMAL) POC GLUCOSE (02/24/2024 5:53 PM CDT) POC Glucose 106(H) 70 - 100 mg/dL [facility] POINT OF CARE Blood 02/24/2024 5:53 PM CDT Humphrey Rose MD LABORATORY Performing Organization Address [facility] de Phone Number [facility] POINT OF [address] * (ABNORMAL) PANEL HEPATIC FUNCTION (02/24/2024 11:25 AM CDT) Total Protein 5.9(L) 6.4 - 8.3 g/dL [facility] Albumin 2.6(L) 3.8 - 5.1 g/dL [facility] Bili Total 0.6 <=1.2 mg/dL [facility] Bili Direct 0.2 <=0.3 mg/dL [facility] Alk Phos 123(H) 35 - 104 IU/L [facility] Comment:No reference range e stablished for patients <18 years old. ALT (SGPT) <5 <=33 IU/L [facility] AST(SGOT) 27 5 - 40 IU/L [facility] Blood 02/24/2024 11:2 5 AM CDT 02/24/2024 11:56 AM CDT Ernestine Toribio MD LABORATORY Performing Organization Address [facility] Co de Phone Number [facility] [place] [address] * (ABNORMAL) PROTHROMBIN (PT) & INR (02/24/2024 11:25 AM CDT) Pathologist [facility] PT 16.8(H) 9.0 - 12.5 sec [facility] INR 1.5(H) 0.8 - 1.1 [facility] Comment: Warfarin Therapeutic Range: Standard Intensity: 2.0 - 3.0 High Intensity: 2.5 - 3.5 Blood 02/24/2024 11:2 5 AM CDT 02/24/2024 11:56 AM CDT Ernestine Toribio MD LABORATORY Performing Organization Address City/[facility]/ZIP Co de Phone Number [facility] [address] [address] * MAGNESIUM (02/24/2024 11:25 AM CDT) [facility] Magnesium 2.2 1.6 - 2.6 mg/dL [facility] Blood 02/24/2024 11:2 5 AM CDT 02/24/2024 11:56 AM CDT Ernestine Toribio MD LABORATORY Performing Organization Address City/[facility] Co de Phone Number [address] [address] * (ABNORMAL) PANEL BASIC METABOLIC (BMP) (02/24/2024 11:25 AM CDT) Pathologist [facility] Sodium 132(L) 135 - 148 mmol/L [facility] Potassium 3.5 3.5 - 5.3 mmol/L [facility] Chloride 99 92 - 108 mmol/L [facility] CO2 25 22 - 30 mmol/L [facility] AnGap 8 8 - 16 mmol/L [facility] Glucose 83 70 - 100 mg/dL [facility] BUN 12 6 - 20 mg/dL [facility] Creatinine 0.55 0.50 - 1.00 mg/dL [facility] Calcium 7.5(L) 8.6 - 10.0 mg/dL [facility] eGFR (2020 CKD-EPI) 106 >=60 ml/min/1.7 3m2 [facility] Comment: The estimated glomerular filtration rate (eGFR) was calculated using the CKD-EPI 2020 creatinine equation, which does not include race as a factor. This equation is validated in individuals 18 years of age and older, and eGFR is normalized to a body surface area of 1.73m^2. Blood 02/24/2024 11:2 5 AM CDT 02/24/2024 11:56 AM CDT Ernestine Toribio MD LABORATORY [facility] [address] [address] * (ABNORMAL) CBC WITH PLTS/AUTO DIFF (02/24/2024 11:25 AM CDT) WBC 3.55(L) 4.00 - 10.00 k/cmm [facility] RBC 2.86(L) 3.90 - 5.20 m/cmm [facility] Hgb 8.6(L) 11.5 - 15.7 g/dL [facility] Hematocrit 27.3(L) 34.0 - 45.0 % [facility] MCV 95.5 80.0 - 100.0 fL [facility] MCH 30.1 25.0 - 32.0 pg [facility] MCHC 31.5 31.0 - 36.0 g/dL [facility] RDW 14.9(H) 11.5 - 14.5 % [facility] Plt 146(L) 150 - 400 k/cmm [facility] MPV 9.8 6.5 - 12.5 fL [facility] Automated Abs Neutrophil 1.79 1.70 - 6.50 k/cmm [facility] Comment:Preliminary ANC, Fin al Result to Follow Abs Immature Granulocyte 0.01 0.00 - 0.09 k/cmm [facility] Comment:The Immature Granulo cyte Absolute count contains metamyelocytes and myelocytes. Abs Neutrophil 1.79 1.70 - 6.50 k/cmm [facility] Abs Lymphocyte 1.37 0.80 - 4.00 k/cmm [facility] Abs Monocyte 0.33 0.20 - 1.00 k/cmm [facility] Abs Eosinophil 0.04 0.00 - 0.60 k/cmm [facility] Abs Basophil 0.01 0.00 - 0.20 k/cmm [facility] Blood 02/24/2024 11:2 5 AM CDT 02/24/2024 11:56 AM CDT Ernestine Toribio MD LABORATORY Performing Organization Address City/[facility] Co de Phone Number [facility] [address] [address] * XR ABDOMEN 1 VIEW* (02/24/2024 9:02 AM CDT) Anatomical Region Laterality Modality Abdomen Computed Radiogr aphy 02/24/2024 9:06 AM CDT Impressions 02/24/2024 9:07 AM CDT Impression: Persistent sigmoid distention. Reading Radiologist: Landon Mitchell Narrative 02/24/2024 9:07 AM CDT Technique: XR ABDOMEN 1 VIEW* Indication: Abdominal distension, xray for re-evaluation ?? Comparison: 02/22/2022, CT from 02/19/2022 Findings: Persistent sigmoid distention. Sigmoid colon measures about 10 cm in diameter. Bowel gas pattern is nonspecific without obstruction. Previous gastric bypass. Procedure Note Landon Mitchell MBBS - 02/24/2024 Technique: XR ABDOMEN 1 VIEW* Indication: Abdominal distension, xray for re-evaluation Comparison: 02/22/2022, CT from 02/19/2022 Findings: Persistent sigmoid distention. Sigmoid colon measures about 10cm in diameter. Bowel gas pattern is nonspecific without obstruction.Previous gastric bypass. IMPRESSION Impression: Persistent sigmoid distention. Reading Radiologist: Landon Mitchell Ernestine Toribio MD RAD XRAY * POC GLUCOSE (02/24/2024 6:51 AM CDT) POC Glucose 80 70 - 100 mg/dL [facility] CARE Blood 02/24/2024 6:51 AM CDT Humphrey Rose MD LABORATORY Performing Organization Address City[facility] Co de Phone Number [facility] POINT OF CARE [address] [place] [address], [place] * POC GLUCOSE (02/24/2024 1:36 AM CDT) POC Glucose 81 70 - 100 mg/dL [facility] POINT OF CARE Blood 02/24/2024 1:36 AM CDT Humphrey Rose MD LABORATORY Performing Organization Address [facility] Co de Phone Number [facility] POINT OF CARE [address] [place] [address], [place] * (ABNORMAL) POC GLUCOSE (02/23/2024 6:39 PM CDT) POC Glucose 140(H) 70 - 100 mg/dL [facility] POINT OF [facility] Blood 02/23/2024 6:39 PM CDT Humphrey Rose MD LABORATORY Performing Organization Address [facility] de Phone Number [facility] POINT [facility] [address] [place] [address], [place] * XR ABDOMEN 1 VIEW* (02/23/2024 2:31 PM CDT) Anatomical Region Laterality Modality Abdomen Computed Radiogr aphy 02/23/2024 2:34 PM CDT Impressions 02/23/2024 2:35 PM CDT Impression: Improved since previous exam. Reading Radiologist: Humphrey Sánchez Narrative 02/23/2024 2:35 PM CDT Technique: XR ABDOMEN 1 VIEW* Indication: eval abdominal distension ?? Comparison: 02/12/2024, CT scan dated 02/20/2024 Findings: Compared with the CT and with the prior x-ray, gaseous distention of the colon has decreased significantly. A segment of colon in the right lower quadrant remains slightly dilated. Procedure Note Humphrey Sánchez MD - 02/23/2024 Technique: XR ABDOMEN 1 VIEW* Indication: eval abdominal distension Comparison: 02/12/2024, CT scan dated 02/20/2024 Findings: Compared with the CT and with the prior x-ray, gaseousdistention of the colon has decreased significantly. A segment of colon inthe right lower quadrant remains slightly dilated. IMPRESSION Impression: Improved since previous exam. Reading Radiologist: Humphrey Sánchez Ernestine Toribio MD RAD XRAY * MAGNESIUM (02/23/2024 8:46 AM CDT) Magnesium 2.2 1.6 - 2.6 mg/dL [facility] Blood 02/23/2024 8:46 AM CDT 02/23/2024 1:57 PM CDT Narrative [facility] - 02/23/2024 2:07 PM CDT Add to AM (02/22) labs. Ernestine Toribio MD LABORATORY [facility] [address] [address] * (ABNORMAL) PANEL BASIC METABOLIC (BMP) (02/23/2024 8:46 AM CDT) CO2 24 22 - 30 mmol/L [facility] Glucose 154(H) 70 - 100 mg/dL [facility] BUN 11 6 - 20 mg/dL [facility] Creatinine 0.52 0.50 - 1.00 mg/dL [facility] Calcium 7.6(L) 8.6 - 10.0 mg/dL [facility] Sodium 129(L) 135 - 148 mmol/L [facility] Potassium 3.3(L) 3.5 - 5.3 mmol/L [facility] Chloride 96 92 - 108 mmol/L [facility] eGFR (2020 CKD-EPI) 107 >=60 ml/min/1.7 3m2 [facility] Comment: The estimated glomerular filtration rate (eGFR) was calculated using the CKD-EPI 2020 creatinine equation, which does not include race as a factor. This equation is validated in individuals 18 years of age and older, and eGFR is normalized to a body surface area of 1.73m^2. AnGap 9 8 - 16 mmol/L [facility] Blood 02/23/2024 8:46 AM CDT 02/23/2024 9:23 AM CDT Francy Mc MD LABORATORY Performing Organization Address City/[facility]/ZIP Co de Phone Number [facility] [address] [address] * (ABNORMAL) CBC WITH PLATELET (02/23/2024 8:46 AM CDT) WBC 3.17(L) 4.00 - 10.00 k/cmm [facility] RBC 3.23(L) 3.90 - 5.20 m/cmm [facility] Hgb 9.7(L) 11.5 - 15.7 g/dL [facility] Hematocrit 31.0(L) 34.0 - 45.0 % [facility] MCV 96.0 80.0 - 100.0 fL [facility] MCH 30.0 25.0 - 32.0 pg [facility] MCHC 31.3 31.0 - 36.0 g/dL [facility] RDW 14.9(H) 11.5 - 14.5 % [facility] Plt 138(L) 150 - 400 k/cmm [facility] MPV 10.4 6.5 - 12.5 fL [facility] Blood 02/23/2024 8:46 AM CDT 02/23/2024 9:23 AM CDT Francy Mc MD LABORATORY Performing Organization Address [facility] Co de Phone Number [facility] [address] [address] * POC GLUCOSE (02/23/2024 6:48 AM CDT) POC Glucose 85 70 - 100 mg/dL [facility]ARE Blood 02/23/2024 6:48 AM CDT Humphrey Rose MD LABORATORY Performing Organization Address City/[facility]/ZIP Co de Phone Number [facility] CARE [address] [place] [address], * POC GLUCOSE (02/23/2024 12:07 AM CDT) POC Glucose 74 70 - 100 mg/dL [facility] POINT OF CARE Blood 02/23/2024 12:0 7 AM CDT Humphrey Rose MD LABORATORY Performing Organization Address City/[facility]/ZIP Co de Phone Number [facility] POINT OF CARE [address] [place] [address], [place] * POC GLUCOSE (02/22/2024 11:29 AM CDT) POC Glucose 91 70 - 100 mg/dL [facility] POINT OF [facility] Blood 02/22/2024 11:2 9 AM CDT Humphrey Rose MD LABORATORY Performing Organization Address City/[facility] Co de Phone Number [facility] POINT OF CARE [address] [place] [address], [place] * POC GLUCOSE (02/22/2024 6:45 AM CDT) POC Glucose 78 70 - 100 mg/dL [facility] POINT OF [facility] Blood 02/22/2024 6:45 AM CDT Humphrey Rose MD LABORATORY Performing Organization Address City/[facility] Co de Phone Number [facility] POINT OF CARE [address] [place] [address], [place] * (ABNORMAL) PANEL BASIC METABOLIC (BMP) (02/22/2024 6:18 AM CDT) CO2 26 22 - 30 mmol/L [facility] Glucose 81 70 - 100 mg/dL [facility] BUN 13 6 - 20 mg/dL [facility] Creatinine 0.52 0.50 - 1.00 mg/dL [facility] Calcium 7.6(L) 8.6 - 10.0 mg/dL [facility] Sodium 132(L) 135 - 148 mmol/L [facility] Potassium 3.5 3.5 - 5.3 mmol/L [facility] Chloride 98 92 - 108 mmol/L [facility] eGFR (2020 CKD-EPI) 107 >=60 ml/min/1.7 3m2 [facility] Comment: The estimated glomerular filtration rate (eGFR) was calculated using the CKD-EPI 2020 creatinine equation, which does not include race as a factor. This equation is validated in individuals 18 years of age and older, and eGFR is normalized to a body surface area of 1.73m^2. AnGap 8 8 - 16 mmol/L [facility] Blood 02/22/2024 6:18 AM CDT 02/22/2024 6:43 AM CDT Francy Mc MD LABORATORY Performing Organization Address City/[facility]/ZIP Co de Phone Number [facility] [address] [address] * (ABNORMAL) CBC WITH PLATELET (02/22/2024 6:18 AM CDT) WBC 3.82(L) 4.00 - 10.00 k/cmm [facility] RBC 2.68(L) 3.90 - 5.20 m/cmm [facility] Hgb 8.1(L) 11.5 - 15.7 g/dL [facility] Hematocrit 25.4(L) 34.0 - 45.0 % [facility] MCV 94.8 80.0 - 100.0 fL [facility] MCH 30.2 25.0 - 32.0 pg [facility] MCHC 31.9 31.0 - 36.0 g/dL [facility] RDW 15.3(H) 11.5 - 14.5 % [facility] Plt 115(L) 150 - 400 k/cmm [facility] MPV 10.0 6.5 - 12.5 fL [facility] Blood 02/22/2024 6:18 AM CDT 02/22/2024 6:43 AM CDT Francy Mc MD LABORATORY Performing Organization Address City/[facility]/ZIP Co de Phone Number [facility] [address] [place] [address] * POC GLUCOSE (02/22/2024 12:39 AM CDT) POC Glucose 82 70 - 100 mg/dL [facility] POINT OF CARE Blood 02/22/2024 12:3 9 AM CDT Humphrey Rose MD LABORATORY Performing Organization Address [facility] Co de Phone Number [facility] POINT OF [address] [address], * (ABNORMAL) POC GLUCOSE (02/21/2024 6:03 PM CDT) Pathologist [facility] POC Glucose 144(H) 70 - 100 mg/dL [facility] POINT OF [facility] Blood 02/21/2024 6:03 PM CDT Humphrey Rose MD LABORATORY Performing Organization Address [facility] Co de Phone Number [facility] POINT OF [address] [address], [place] * LACTATE (LACTIC ACID) (02/21/2024 8:38 AM CDT) Pathologist [facility] Lactate 1.3 0.7 - 2.1 mmol/L [facility] Blood 02/21/2024 8:38 AM CDT 02/21/2024 8:49 AM CDT Narrative [facility] - 02/21/2024 8:57 AM CDT Send specimen on ice! Nikos Ferrer MD LABORATORY Performing Organization Address City/[facility]/ZIP Co de Phone Number [facility] [address] [address] * CALCIUM,IONIZED (02/21/2024 8:38 AM CDT) PH 7.40 7.32 - 7.42 [facility] ICA, Actual 4.45 4.40 - 5.20 mg/dL [facility] ICA, pH Corrected 4.46 4.40 - 5.20 mg/dL [facility] Blood 02/21/2024 8:38 AM CDT 02/21/2024 8:49 AM CDT Narrative [facility] - 02/21/2024 8:57 AM CDT Send specimen on ice! Nikos Ferrer MD LABORATORY Performing Organization Address [facility] de Phone Number [facility] [address] [address] * PHOSPHORUS (02/21/2024 8:38 AM CDT) Phosphorus 3.5 2.5 - 4.5 mg/dL [facility] Blood 02/21/2024 8:38 AM CDT 02/21/2024 8:50 AM CDT Nikos Ferrer MD LABORATORY Performing Organization Address [facility] de Phone Number [facility] [address] [address] * MAGNESIUM (02/21/2024 8:38 AM CDT) Magnesium 2.2 1.6 - 2.6 mg/dL [facility] Blood 02/21/2024 8:38 AM CDT 02/21/2024 8:50 AM CDT Nikos Ferrer MD LABORATORY Performing Organization Address [facility] de Phone Number [facility] [address] [address] * (ABNORMAL) PANEL BASIC METABOLIC (BMP) (02/21/2024 8:38 AM CDT) Sodium 131(L) 135 - 148 mmol/L [facility] Potassium 4.0 3.5 - 5.3 mmol/L [facility] Chloride 98 92 - 108 mmol/L [facility] CO2 27 22 - 30 mmol/L [facility] AnGap 6(L) 8 - 16 mmol/L [facility] Glucose 88 70 - 100 mg/dL [facility] BUN 13 6 - 20 mg/dL [facility] Creatinine 0.52 0.50 - 1.00 mg/dL [facility] Calcium 8.0(L) 8.6 - 10.0 mg/dL [facility] eGFR (2020 CKD-EPI) 107 >=60 ml/min/1.7 3m2 [facility] Comment: The estimated glomerular filtration rate (eGFR) was calculated using the CKD-EPI 2020 creatinine equation, which does not include race as a factor. This equation is validated in individuals 18 years of age and older, and eGFR is normalized to a body surface area of 1.73m^2. Blood 02/21/2024 8:38 AM CDT 02/21/2024 8:50 AM CDT Francy Mc MD LABORATORY [facility] [address] [address] * (ABNORMAL) CBC WITH PLATELET (02/21/2024 8:38 AM CDT) WBC 4.54 4.00 - 10.00 k/cmm [facility] RBC 3.02(L) 3.90 - 5.20 m/cmm [facility] Hgb 9.0(L) 11.5 - 15.7 g/dL [facility] Hematocrit 28.7(L) 34.0 - 45.0 % [facility] MCV 95.0 80.0 - 100.0 fL [facility] MCH 29.8 25.0 - 32.0 pg [facility] MCHC 31.4 31.0 - 36.0 g/dL [facility] RDW 15.2(H) 11.5 - 14.5 % [facility] Plt 120(L) 150 - 400 k/cmm [facility] MPV 10.3 6.5 - 12.5 fL [facility] Blood 02/21/2024 8:38 AM CDT 02/21/2024 8:50 AM CDT Francy Mc MD LABORATORY [facility] [address] [address] * CALCIUM,IONIZED (02/20/2024 8:37 PM CDT) PH 7.41 7.32 - 7.42 [facility] ICA, Actual 4.57 4.40 - 5.20 mg/dL [facility] ICA, pH Corrected 4.58 4.40 - 5.20 mg/dL [facility] Blood 02/20/2024 8:37 PM CDT 02/20/2024 9:02 PM CDT Narrative [facility] - 02/20/2024 9:07 PM CDT Send specimen on ice! Autumn Jerome MD LABORATORY Performing Organization Address City/[facility]/ZIP Co de Phone Number [address] [address] * PHOSPHORUS (02/20/2024 8:37 PM CDT) Phosphorus 3.4 2.5 - 4.5 mg/dL [facility] Blood 02/20/2024 8:37 PM CDT 02/20/2024 9:04 PM CDT Autumn Jerome MD LABORATORY Performing Organization Address City/[facility] Co de Phone Number [address] [address] * MAGNESIUM (02/20/2024 8:37 PM CDT) Magnesium 2.2 1.6 - 2.6 mg/dL [facility] Blood 02/20/2024 8:37 PM CDT 02/20/2024 9:04 PM CDT Autumn Jerome MD LABORATORY Performing Organization Address City/[facility]/ZIP Co de Phone Number [address] [address] * (ABNORMAL) PANEL BASIC METABOLIC (BMP) (02/20/2024 8:37 PM CDT) Sodium 129(L) 135 - 148 mmol/L [facility] Potassium 4.2 3.5 - 5.3 mmol/L [facility] Chloride 96 92 - 108 mmol/L [facility] CO2 26 22 - 30 mmol/L [facility] AnGap 7(L) 8 - 16 mmol/L [facility] Glucose 93 70 - 100 mg/dL [facility] BUN 15 6 - 20 mg/dL [facility] Creatinine 0.59 0.50 - 1.00 mg/dL [facility] Calcium 8.1(L) 8.6 - 10.0 mg/dL [facility] eGFR (2020 CKD-EPI) 104 >=60 ml/min/1.7 3m2 [facility] Comment: The estimated glomerular filtration rate (eGFR) was calculated using the CKD-EPI 2020 creatinine equation, which does not include race as a factor. This equation is validated in individuals 18 years of age and older, and eGFR is normalized to a body surface area of 1.73m^2. Blood 02/20/2024 8:37 PM CDT 02/20/2024 9:04 PM CDT Autumn Jerome MD LABORATORY Performing Organization Address City/[facility] Co de Phone Number [address] [address] * (ABNORMAL) PROTHROMBIN (PT) & INR (02/20/2024 8:37 PM CDT) PT 15.9(H) 9.0 - 12.5 sec [facility] INR 1.4(H) 0.8 - 1.1 [facility] Comment: Warfarin Therapeutic Range: Standard Intensity: 2.0 - 3.0 High Intensity: 2.5 - 3.5 Blood 02/20/2024 8:37 PM CDT 02/20/2024 9:04 PM CDT Francy Mc MD LABORATORY Performing Organization Address City/[facility]/ZIP Co de Phone Number [address] [address] * (ABNORMAL) HEMOGLOBIN (02/20/2024 8:37 PM CDT) Hgb 8.7(L) 11.5 - 15.7 g/dL [facility] Blood 02/20/2024 8:37 PM CDT 02/20/2024 9:04 PM CDT Francy Mc MD LABORATORY [facility] [address] [address] * CT ABDOMEN/PELVIS W/IV CON (02/20/2024 7:05 PM CDT) Anatomical Region Laterality Modality Abdomen, [...] and L3, 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 Plating and screw fixation over the lateral aspect of the left femur. Significant soft tissue anasarca. Procedure Note Landon Mitchell V., CIELO - 02/21/2024 Comparison: CT abdomen and pelvis [...] T12 and L3, stablefrom prior Femoral medullary krystle in the right femur. Plating and screwfixation [...] Autumn Jerome MD RAD CT BODY * (ABNORMAL) POC GLUCOSE (02/20/2024 6:32 PM CDT) Pathologist [facility] POC Glucose 119(H) 70 - 100 mg/dL [facility] Blood 02/20/2024 6:32 PM CDT Humphrey Rose MD LABORATORY [facility] [address] [place] [address], * LACTATE (LACTIC ACID) (02/20/2024 5:38 PM CDT) Lactate 1.8 0.7 - 2.1 mmol/L [facility] [facility] Blood 02/20/2024 5:38 PM CDT 02/20/2024 5:44 PM CDT Narrative [facility] - 02/20/2024 5:48 PM CDT Send specimen on ice! Francy Mc MD LABORATORY Performing Organization Address City/State/[facility] Co de Phone Number [facility] [address] [address] * XR ABDOMEN 1 VIEW* (02/20/2024 4:42 PM CDT) Anatomical Region Laterality Modality Abdomen Computed Radiogr aphy 02/20/2024 5:30 PM CDT Impressions 02/20/2024 5:34 PM CDT Impression: 1. Markedly increased sigmoid distention, repeat CT scan and GI consultation recommended. 2. Worsening diffuse large bowel distention, suggestive of distal sigmoid obstruction. Reading Radiologist: Landon Mitchell Narrative 02/20/2024 5:34 PM CDT Technique: XR ABDOMEN 1 VIEW* Indication: new abd pain, h/o obstruction and sigmoid distention ?? Comparison: CT from 02/11/2024, 02/02/2024, x-ray from 02/13 and 02/15/2024 Findings: There is massive sigmoid distention, with sigmoid loops measuring up to 21 cm in diameter, and extending to the level of the diaphragm. This is markedly worsened when compared to previous exams including the CT scan of 02/11/2024, when the sigmoid measured about 14 cm in diameter. Worsening diffuse large bowel distention. On this supine radiograph, cannot adequately assess for free air. 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 Postoperative changes in the proximal femurs. Basilar infiltrates in the lungs. Procedure Note Landon Mitchell MBBS - 02/20/2024 Technique: XR ABDOMEN 1 VIEW* Indication: new abd pain, h/o obstruction and sigmoid distention Comparison: CT from 02/11/2024, 02/02/2024, x-ray from 02/13 and 02/15/2024 Findings: There is massive sigmoid distention, with sigmoid loopsmeasuring up to 21 cm in diameter, and extending to the level of thediaphragm. This is markedly worsened when compared to previous examsincluding the CT scan of 02/11/2024, when the sigmoid measured about 14 cmin diameter. Worsening diffuse large bowel distention. On this supine radiograph,cannot adequately assess for free air. 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 Postoperative changes in theproximal femurs. Basilar infiltrates in the lungs. IMPRESSION Impression: 1. Markedly increased sigmoid distention, repeat CT scan and GIconsultation recommended. 2. Worsening diffuse large bowel distention, suggestive of distal sigmoidobstruction. Reading Radiologist: Landon Mitchell Francy Mc MD RAD XRAY * (ABNORMAL) PANEL HEPATIC FUNCTION (02/20/2024 7:44 AM CDT) Total Protein 5.9(L) 6.4 - 8.3 g/dL [facility] Albumin 3.1(L) 3.8 - 5.1 g/dL [facility] Bili Total 0.9 <=1.2 mg/dL [facility] Bili Direct 0.3 <=0.3 mg/dL [facility] Alk Phos 114(H) 35 - 104 IU/L [facility] Comment:No reference range e stablished for patients <18 years old. ALT (SGPT) 5 <=33 IU/L [facility] AST(SGOT) 38 5 - 40 IU/L [facility] Blood 02/20/2024 7:44 AM CDT 02/20/2024 3:36 PM CDT Francy Mc MD LABORATORY [facility] [address] [place] [id number] * (ABNORMAL) PANEL BASIC METABOLIC (BMP) (02/20/2024 7:44 AM CDT) Sodium 129(L) 135 - 148 mmol/L [facility] Potassium 4.1 3.5 - 5.3 mmol/L [facility] Chloride 96 92 - 108 mmol/L [facility] CO2 27 22 - 30 mmol/L [facility] AnGap 6(L) 8 - 16 mmol/L [facility] Glucose 83 70 - 100 mg/dL [facility] BUN 15 6 - 20 mg/dL [facility] Creatinine 0.61 0.50 - 1.00 mg/dL [facility] Calcium 8.0(L) 8.6 - 10.0 mg/dL [facility] eGFR (2020 CKD-EPI) 103 >=60 ml/min/1.7 3m2 [facility] Comment: The estimated glomerular filtration rate (eGFR) was calculated using the CKD-EPI 2020 creatinine equation, which does not include race as a factor. This equation is validated in individuals 18 years of age and older, and eGFR is normalized to a body surface area of 1.73m^2. Blood 02/20/2024 7:44 AM CDT 02/20/2024 8:35 AM CDT Francy Mc MD LABORATORY [facility] [address] [address] * (ABNORMAL) CBC WITH PLATELET (02/20/2024 7:44 AM CDT) WBC 3.10(L) 4.00 - 10.00 k/cmm [facility] RBC 2.63(L) 3.90 - 5.20 m/cmm [facility] Hgb 8.0(L) 11.5 - 15.7 g/dL [facility] Hematocrit 25.7(L) 34.0 - 45.0 % [facility] MCV 97.7 80.0 - 100.0 fL [facility] MCH 30.4 25.0 - 32.0 pg [facility] MCHC 31.1 31.0 - 36.0 g/dL [facility] RDW 15.3(H) 11.5 - 14.5 % [facility] Plt 116(L) 150 - 400 k/cmm [facility] MPV 10.8 6.5 - 12.5 fL [facility] Blood 02/20/2024 7:44 AM CDT 02/20/2024 8:35 AM CDT Francy Mc MD LABORATORY [facility] [address] [place] [id number] * POC GLUCOSE (02/20/2024 6:18 AM CDT) POC Glucose 92 70 - 100 mg/dL [facility] Blood 02/20/2024 6:18 AM CDT Humphrey Rose MD LABORATORY [facility] [address] [place] [address], * (ABNORMAL) POC GLUCOSE (02/19/2024 9:24 PM CDT) POC Glucose 128(H) 70 - 100 mg/dL [facility] Blood 02/19/2024 9:24 PM CDT Humphrey Rose MD LABORATORY Performing Organization Address [facility] Co de Phone Number [address] [address], [place] * POC GLUCOSE (02/19/2024 4:19 PM CDT) POC Glucose 83 70 - 100 mg/dL [facility] Blood 02/19/2024 4:19 PM CDT Humphrey Rose MD LABORATORY Performing Organization Address City/[facility]/ZIP Co de Phone Number [facility] [address] [place] [phone], [place] * Paracentesis (02/19/2024 2:55 PM CDT) Narrative [...] to verify the correct patient, procedure, equipment, technical support specialist and site/side marked as required. [...] * IR PARACENTESIS (02/19/2024 2:54 PM CDT) Anatomical Region Laterality Modality Abdomen X-Ray [...] Buckley Francy Mc MD RAD IR * POC GLUCOSE (02/19/2024 11:06 AM CDT) Pathologist [facility] POC Glucose 82 70 - 100 mg/dL [facility] Blood 02/19/2024 11:0 6 AM CDT Humphrey Rose MD LABORATORY Performing Organization Address [facility]/ZIP Co de Phone Number [facility] [address] [place] [address], [place] * POC GLUCOSE (02/19/2024 6:02 AM CDT) [facility] POC Glucose 84 70 - 100 mg/dL [facility] Blood 02/19/2024 6:02 AM CDT Humphrey Rose MD LABORATORY Performing Organization Address [facility]/ZIP Co de Phone Number [facility] [address] [place] [address], [place] * (ABNORMAL) CBC WITH PLATELET (02/19/2024 5:03 AM CDT) Pathologist [facility] WBC 3.27(L) 4.00 - 10.00 k/cmm [facility] RBC 2.64(L) 3.90 - 5.20 m/cmm [facility] Hgb 8.1(L) 11.5 - 15.7 g/dL [facility] Hematocrit 25.8(L) 34.0 - 45.0 % [facility] MCV 97.7 80.0 - 100.0 fL [facility] MCH 30.7 25.0 - 32.0 pg [facility] MCHC 31.4 31.0 - 36.0 g/dL [facility] RDW 15.3(H) 11.5 - 14.5 % [facility] Plt 127(L) 150 - 400 k/cmm [facility] MPV 10.4 6.5 - 12.5 fL [facility] Blood 02/19/2024 5:03 AM CDT 02/19/2024 5:39 AM CDT Francy Mc MD LABORATORY Performing Organization Address [facility] Co de Phone Number [facility] [address] [address] * (ABNORMAL) PANEL BASIC METABOLIC (BMP) (02/19/2024 5:03 AM CDT) Sodium 129(L) 135 - 148 mmol/L [facility] Potassium 4.3 3.5 - 5.3 mmol/L [facility] Chloride 95 92 - 108 mmol/L [facility] CO2 26 22 - 30 mmol/L [facility] AnGap 8 8 - 16 mmol/L [facility] Glucose 80 70 - 100 mg/dL [facility] BUN 18 6 - 20 mg/dL [facility] Creatinine 0.65 0.50 - 1.00 mg/dL [facility] Calcium 8.4(L) 8.6 - 10.0 mg/dL [facility] eGFR (2020 CKD-EPI) 101 >=60 ml/min/1.7 3m2 [facility] Comment: The estimated glomerular filtration rate (eGFR) was calculated using the CKD-EPI 2020 creatinine equation, which does not include race as a factor. This equation is validated in individuals 18 years of age and older, and eGFR is normalized to a body surface area of 1.73m^2. Blood 02/19/2024 5:03 AM CDT 02/19/2024 5:39 AM CDT Francy Mc MD LABORATORY Performing Organization Address [facility]/ZIP Co de Phone Number [facility] [address] [address] * POC GLUCOSE (02/19/2024 12:07 AM CDT) POC Glucose 85 70 - 100 mg/dL [facility] Blood 02/19/2024 12:0 7 AM CDT Humphrey Rose MD LABORATORY Performing Organization Address City/[facility]/ZIP Co de Phone Number [facility] [address] [place] [address], * (ABNORMAL) SODIUM (02/18/2024 9:39 PM CDT) Sodium 126(L) 135 - 148 mmol/L [facility] Blood 02/18/2024 9:39 PM CDT 02/18/2024 10:05 PM CDT Francy Mc MD LABORATORY Performing Organization Address [facility] [place] [address] * OSMOLALITY,URINE-RANDOM LASHELL (02/18/2024 4:31 PM CDT) Urine Osmo 293 50 - 800 mOsm/Kg [facility] Urine 02/18/2024 4:31 PM CDT 02/18/2024 4:43 PM CDT Francy Mc MD LABORATORY Performing Organization Address [facility] Co de Phone Number [facility] [address] [address] * (ABNORMAL) SODIUM,URINE-RANDOM LASHELL (02/18/2024 4:31 PM CDT) Sodium Urine <20(L) 40 - 200 mEq/L [facility] Urine 02/18/2024 4:31 PM CDT 02/18/2024 4:43 PM CDT Francy Mc MD LABORATORY Performing Organization Address City/[facility] Co de Phone Number [facility] [address] [address] * (ABNORMAL) SODIUM (02/18/2024 3:10 PM CDT) Pathologist [facility] Sodium 125(AA) 135 - 148 mmol/L [facility] Comment:Critical Result Low Blood 02/18/2024 3:10 PM CDT 02/18/2024 3:36 PM CDT Narrative [facility] - 02/18/2024 4:25 PM CDT Critical value for Na called to and read back by Francy Mc MD in Ortho at 02/18/2024 16:24:57 CDT by Marion Tate MLS. Francy Mc MD LABORATORY [facility] [address] [address] * TSH WITH REFLEX TO FREE T4 (02/18/2024 8:33 AM CDT) [facility] TSH 1.99 0.27 - 4.20 mIU/L [facility] Blood 02/18/2024 8:33 AM CDT 02/18/2024 5:10 PM CDT Francy Mc MD LABORATORY [facility] [address] [address] * (ABNORMAL) PANEL BASIC METABOLIC (BMP) (02/18/2024 8:33 AM CDT) Pathologist [facility] Sodium 127(L) 135 - 148 mmol/L [facility] Potassium 4.2 3.5 - 5.3 mmol/L [facility] Chloride 95 92 - 108 mmol/L [facility] CO2 25 22 - 30 mmol/L [facility] AnGap 7(L) 8 - 16 mmol/L [facility] Glucose 92 70 - 100 mg/dL [facility] BUN 18 6 - 20 mg/dL [facility] Creatinine 0.71 0.50 - 1.00 mg/dL [facility] Calcium 7.9(L) 8.6 - 10.0 mg/dL [facility] eGFR (2020 CKD-EPI) 98 >=60 ml/min/1.7 3m2 [facility] Comment: The estimated glomerular filtration rate (eGFR) was calculated using the CKD-EPI 2020 creatinine equation, which does not include race as a factor. This equation is validated in individuals 18 years of age and older, and eGFR is normalized to a body surface area of 1.73m^2. Blood 02/18/2024 8:33 AM CDT 02/18/2024 8:45 AM CDT Francy Mc MD LABORATORY [facility] [address] [address] * (ABNORMAL) CBC WITH PLATELET (02/18/2024 8:33 AM CDT) [facility] WBC 4.30 4.00 - 10.00 k/cmm [facility] RBC 3.08(L) 3.90 - 5.20 m/cmm [facility] Hgb 9.6(L) 11.5 - 15.7 g/dL [facility] Hematocrit 29.2(L) 34.0 - 45.0 % [facility] MCV 94.8 80.0 - 100.0 fL [facility] MCH 31.2 25.0 - 32.0 pg [facility] MCHC 32.9 31.0 - 36.0 g/dL [facility] RDW 15.5(H) 11.5 - 14.5 % [facility] Plt 148(L) 150 - 400 k/cmm [facility] MPV 10.1 6.5 - 12.5 fL [facility] Blood 02/18/2024 8:33 AM CDT 02/18/2024 8:45 AM CDT Francy Mc MD LABORATORY [facility] [address] [address] * POC GLUCOSE (02/18/2024 8:06 AM CDT) Pathologist [facility] POC Glucose 74 70 - 100 mg/dL [facility] Blood 02/18/2024 8:06 AM CDT Humphrey Rose MD LABORATORY Performing Organization Address [facility] Co de Phone Number [facility] [address] [place] [address], * (ABNORMAL) POC GLUCOSE (02/17/2024 11:13 AM CDT) Pathologist [facility] POC Glucose 113(H) 70 - 100 mg/dL [facility] Blood 02/17/2024 11:1 3 AM CDT Humphrey Rose MD LABORATORY Performing Organization Address [facility] de Phone Number [facility] POINT [facility] [address] [place] [address], [place] * (ABNORMAL) PANEL BASIC METABOLIC (BMP) (02/17/2024 7:19 AM CDT) Pathologist [facility] CO2 25 22 - 30 mEq/L [facility] Glucose 83 70 - 100 mg/dL [facility] BUN 16 6 - 20 mg/dL [facility] Creatinine 0.59 0.50 - 1.00 mg/dL [facility] Calcium 7.7(L) 8.6 - 10.0 mg/dL [facility] Sodium 128(L) 135 - 148 mEq/L [facility] Potassium 4.0 3.5 - 5.3 mEq/L [facility] Chloride 97 92 - 108 mEq/L [facility] eGFR (2020 CKD-EPI) 104 >=60 ml/min/1.7 3m2 [facility] Comment: The estimated glomerular filtration rate (eGFR) was calculated using the CKD-EPI 2020 creatinine equation, which does not include race as a factor. This equation is validated in individuals 18 years of age and older, and eGFR is normalized to a body surface area of 1.73m^2. AnGap 6(L) 8 - 16 mEq/L [facility] Blood 02/17/2024 7:19 AM CDT 02/17/2024 8:14 AM CDT Francy Mc MD LABORATORY Performing Organization Address City/[facility]/ZIP Co de Phone Number [facility] [address] [address] * (ABNORMAL) CBC WITH PLATELET (02/17/2024 7:19 AM CDT) WBC 4.68 4.00 - 10.00 k/cmm [facility] RBC 2.63(L) 3.90 - 5.20 m/cmm [facility] Hgb 8.0(L) 11.5 - 15.7 g/dL [facility] Hematocrit 25.5(L) 34.0 - 45.0 % [facility] MCV 97.0 80.0 - 100.0 fL [facility] MCH 30.4 25.0 - 32.0 pg [facility] MCHC 31.4 31.0 - 36.0 g/dL [facility] RDW 15.3(H) 11.5 - 14.5 % [facility] Plt 133(L) 150 - 400 k/cmm [facility] MPV 10.5 6.5 - 12.5 fL [facility] Blood 02/17/2024 7:19 AM CDT 02/17/2024 8:14 AM CDT Francy Mc MD LABORATORY Performing Organization Address City/[facility]/ZIP Co de Phone Number [facility] [address] [address] * POC GLUCOSE (02/17/2024 6:02 AM CDT) POC Glucose 86 70 - 100 mg/dL [facility] Blood 02/17/2024 6:02 AM CDT Humphrey Rose MD LABORATORY [facility] [address] [place] [address], * POC GLUCOSE (02/17/2024 12:02 AM CDT) POC Glucose 95 70 - 100 mg/dL [facility] Blood 02/17/2024 12:0 2 AM CDT Humphrey Rose MD LABORATORY Performing Organization Address [facility] Co de Phone Number [facility] [address] [place] [address], * (ABNORMAL) POC GLUCOSE (02/16/2024 6:18 PM CDT) POC Glucose 155(H) 70 - 100 mg/dL [facility] Blood 02/16/2024 6:18 PM CDT Humphrey Rose MD LABORATORY Performing Organization Address [facility] de Phone Number [facility] POINT [facility] [address] [place] [address], [place] * Paracentesis (02/16/2024 3:19 PM CDT) Narrative [...] to verify the correct patient, procedure, equipment, technical support specialist and site/side marked as required. [...] None. Impression: Ultrasound-guided paracentesis as above. Milan ENNIS-Yeni PROCEDURES * IR PARACENTESIS (02/16/2024 2:57 PM CDT) Anatomical Region Laterality Modality Abdomen X-Ray Angiograph y 02/16/2024 3:16 PM CDT Impressions 02/16/2024 3:19 PM CDT Impression: Ultrasound-guided paracentesis as above. Reading Radiologist: Milan Duque Narrative 02/16/2024 3:19 PM CDT Indication: Ascites Procedure: The risks [...] rest was discarded. The catheter was then removed. Per protocol, the patient received 31.25 grams of albumin during and after the procedure. Complications: None. Procedure Note Milan Duque PA-C - 02/16/2024 Indication: Ascites Procedure: The risks and benefits of the procedure were explained to thepatient. After obtaining informed consent, the patient was placed supineon a hospital cart. Ultrasound was used to interrogate the abdomen. Alarge amount of ascites was seen. The right lower quadrant was thenprepped and draped in usual sterile fashion. 1% lidocaine was used forlocal anesthesia. Under ultrasound guidance, a one step needle was advanced into the fluid.An image was archived. A total of 6 liters of cloudy-colored ascitic fluidwas removed; 1L was sent for culture and the rest was discarded. Thecatheter was then removed. Per protocol, the patient received 31.25 grams of albumin during and afterthe procedure. Complications: None. IMPRESSION Impression: Ultrasound-guided paracentesis as above. Reading Radiologist: Milan Duque Milan Duque PA-C RAD IR * BODY FLUID CULTURE:INCLUDES GRAM STAIN (02/16/2024 2:56 PM CDT) Final Report No growth. [facility] Gram Stain Report PMN's seen. No organisms seen. [facility] Peritoneal Fluid PERITONEUM (SEROUS MEMBRANE) STRUCTURE / Unknown 02/16/2024 2:56 PM CDT 02/16/2024 3:54 PM CDT Francy Mc MD LAB MICROBIOLOG Y [facility] [address] [address] * BODY FLUID CELL COUNT/DIFF (02/16/2024 2:55 PM CDT) Fluid Type PT Peritoneal [facility] Comment:Normal reference ran ges have not been determined; clinical correlation is recommended. Volume PT Fluid 1,000 mL [facility] Appearance PT Clear [facility] Color bf Yellow [facility] Rbc PT Fluid <1,000 cells/ul [facility] Nuc Ct PT Fluid 167 cells/ul [facility] Neutrophil PT Fluid 16 % [facility] Lymphocytes PT Fluid 44 % [facility] Basophil PT Fluid 1 % [facility] MONO/MACS FL 33 % [facility] Other PT Fluid 6 % [facility] Comment:Others are mesotheli al cells. Peritoneal Fluid 02/16/2024 2:55 PM CDT 02/16/2024 3:43 PM CDT Francy Mc MD LABORATORY Performing Organization Address City/[facility]/ZIP Co de Phone Number [facility] [address] [address] * (ABNORMAL) CBC WITH PLATELET (02/16/2024 8:12 AM CDT) WBC 5.95 4.00 - 10.00 k/cmm [facility] RBC 3.08(L) 3.90 - 5.20 m/cmm [facility] Hgb 9.3(L) 11.5 - 15.7 g/dL [facility] Hematocrit 29.4(L) 34.0 - 45.0 % [facility] MCV 95.5 80.0 - 100.0 fL [facility] MCH 30.2 25.0 - 32.0 pg [facility] MCHC 31.6 31.0 - 36.0 g/dL [facility] RDW 15.6(H) 11.5 - 14.5 % [facility] Plt 167 150 - 400 k/cmm [facility] MPV 10.2 6.5 - 12.5 fL [facility] Blood 02/16/2024 8:12 AM CDT 02/16/2024 8:54 AM CDT Ernestine Toribio MD LABORATORY Performing Organization Address City/[facility]/ZIP Co de Phone Number [facility] [address] [address] * (ABNORMAL) PANEL HEPATIC FUNCTION (02/16/2024 8:12 AM CDT) Total Protein 6.6 6.4 - 8.3 g/dL [facility] Albumin 2.2(L) 3.8 - 5.1 g/dL [facility] Bili Total 0.8 <=1.2 mg/dL [facility] Bili Direct 0.4(H) <=0.3 mg/dL [facility] Alk Phos 155(H) 35 - 104 IU/L [facility] Comment:No reference range e stablished for patients <18 years old. ALT (SGPT) <5 <=33 IU/L [facility] AST(SGOT) 42(H) 5 - 40 IU/L [facility] Blood 02/16/2024 8:12 AM CDT 02/16/2024 8:54 AM CDT Ernestine Toribio MD LABORATORY Performing Organization Address City/[facility] Co de Phone Number [address] [address] * (ABNORMAL) PROTHROMBIN (PT) & INR (02/16/2024 8:12 AM CDT) PT 16.0(H) 9.0 - 12.5 sec [facility] INR 1.4(H) 0.8 - 1.1 [facility] Comment: Warfarin Therapeutic Range: Standard Intensity: 2.0 - 3.0 High Intensity: 2.5 - 3.5 Blood 02/16/2024 8:12 AM CDT 02/16/2024 8:54 AM CDT Ernestine Toribio MD LABORATORY Performing Organization Address City/[facility]/ZIP Co de Phone Number [facility] [address] [address] * MAGNESIUM (02/16/2024 8:12 AM CDT) Magnesium 2.0 1.6 - 2.6 mg/dL [facility] Blood 02/16/2024 8:12 AM CDT 02/16/2024 8:54 AM CDT Ernestine Toribio MD LABORATORY Performing Organization Address City/[facility] [place]/ZIP Co de Phone Number [facility] [address] [address] * (ABNORMAL) PANEL BASIC METABOLIC (BMP) (02/16/2024 8:12 AM CDT) Pathologist [facility] Sodium 129(L) 135 - 148 mEq/L [facility] Potassium 3.6 3.5 - 5.3 mEq/L [facility] Chloride 96 92 - 108 mEq/L [facility] CO2 26 22 - 30 mEq/L [facility] AnGap 7(L) 8 - 16 mEq/L [facility] Glucose 81 70 - 100 mg/dL [facility] BUN 18 6 - 20 mg/dL [facility] Creatinine 0.62 0.50 - 1.00 mg/dL [facility] Calcium 7.5(L) 8.6 - 10.0 mg/dL [facility] eGFR (2020 CKD-EPI) 103 >=60 ml/min/1.7 3m2 [facility] Comment: The estimated glomerular filtration rate (eGFR) was calculated using the CKD-EPI 2020 creatinine equation, which does not include race as a factor. This equation is validated in individuals 18 years of age and older, and eGFR is normalized to a body surface area of 1.73m^2. Blood 02/16/2024 8:12 AM CDT 02/16/2024 8:54 AM CDT Ernestine Toribio MD LABORATORY Performing Organization Address City/[facility] [place]/ZIP Co de Phone Number [facility] [address] [address] * POC GLUCOSE (02/16/2024 6:35 AM CDT) [facility] POC Glucose 70 70 - 100 mg/dL [facility] Blood 02/16/2024 6:35 AM CDT Humphrey Rose MD LABORATORY [facility] [address] [place] [address], * POC GLUCOSE (02/15/2024 11:47 PM CDT) POC Glucose 82 70 - 100 mg/dL [facility] Blood 02/15/2024 11:4 7 PM CDT Humphrey Rose MD LABORATORY [facility] POINT OF CARE [address] [place] [address], [place] * (ABNORMAL) POC GLUCOSE (02/15/2024 5:52 PM CDT) POC Glucose 167(H) 70 - 100 mg/dL [facility] CARE Blood 02/15/2024 5:52 PM CDT Humphrey Rose MD LABORATORY Performing Organization Address [facility] Co de Phone Number [facility] [address] [place] [address], [place] * POC GLUCOSE (02/15/2024 1:21 PM CDT) POC Glucose 86 70 - 100 mg/dL [facility]ARE Blood 02/15/2024 1:21 PM CDT Humphrey Rose MD LABORATORY Performing Organization Address City/[facility] Co de Phone Number [facility] POINT [facility] [address] [place] [address], [place] * (ABNORMAL) POC GLUCOSE (02/15/2024 12:21 PM CDT) POC Glucose 66(L) 70 - 100 mg/dL [facility] Blood 02/15/2024 12:2 1 PM CDT Humphrey Rose MD LABORATORY Performing Organization Address City/[facility]/ZIP Co de Phone Number [facility]ARE [address] [place] [address], [place] * XR ABDOMEN 1 VIEW* (02/15/2024 11:38 AM CDT) Anatomical Region Laterality Modality Abdomen Computed Radiogr aphy 02/15/2024 11:4 2 AM CDT Impressions 02/15/2024 11:42 AM CDT IMPRESSION: no evidence for bowel obstruction. Reading Radiologist: Grover Ballesteros Narrative 02/15/2024 11:42 AM CDT Technique: XR ABDOMEN 1 VIEW* Indication: Abdominal distension, evaluate after flexible sigmoidoscopy ?? Findings: The bowel gas pattern is normal. There is no evidence for obstruction. Fixation hardware is present in both femurs. Procedure Note Grover Ballesteros MD - 02/15/2024 Technique: XR ABDOMEN 1 VIEW* Indication: Abdominal distension, evaluate after flexible sigmoidoscopy Findings: The bowel gas pattern is normal. There is no evidence forobstruction. Fixation hardware is present in both femurs. IMPRESSION IMPRESSION: no evidence for bowel obstruction. Reading Radiologist: Grover Ballesteros Ernestine Toribio MD RAD XRAY * POC GLUCOSE (02/15/2024 10:46 AM CDT) POC Glucose 86 70 - 100 mg/dL [facility] Blood 02/15/2024 10:4 6 AM CDT Humphrey Rose MD LABORATORY [facility] [address] [place] [address], * FLEXIBLE SIGMOIDOSCOPY (02/15/2024 9:55 AM CDT) 02/15/2024 9:55 AM CDT Narrative [facility] - 02/15/2024 11:22 AM CDT Gastroenterology Lab Patient Name: Cathy Raymond ?Procedure Date: 02/15/2024 9:55 AM ?Date of : 1965 Admit Type: Inpatient ? Age: 58 Gender: Female Procedure: ? Flexible Sigmoidoscopy Providers: ? Raven Dominguez RN, Toby Villarreal, Psychiatry Teacher (Psychiatry Teacher), Olesya Whipple (Fellow) Referring MD: ?Self Referral [...] collected. Recommendation: ?- Return patient to [facility] for ongoing care. - Advance diet as tolerated. - Aggressive bowel regimen, encourage mobility. - KUB post-procedure. Would not perform additional imaging unless indicated clinically. - Recommend surgical evaluation as this is likely to continue to happen. Attending Participation: I was present and participated during the entire procedure, including non-valencia portions. Ugo Rincon, , [phone] 02/15/2024 11:20:50 AM Olesya Whipple, , [id number] Number of Addenda: 0 Note Initiated On: 02/15/2024 9:55 AM Nataly Quinones PA-C GI LAB Performing Organization Address [facility] Co de Phone Number [facility] * MAGNESIUM (02/15/2024 6:48 AM CDT) Pathologist [facility] Magnesium 2.2 1.6 - 2.6 mg/dL [facility] Blood 02/15/2024 6:48 AM CDT 02/15/2024 7:32 AM CDT Ernestine Toribio MD LABORATORY [facility] [address] [address] * PHOSPHORUS (02/15/2024 6:48 AM CDT) Phosphorus 3.3 2.5 - 4.5 mg/dL [facility] Blood 02/15/2024 6:48 AM CDT 02/15/2024 7:32 AM CDT Ernestine Toribio MD LABORATORY Performing Organization Address [facility] Co de Phone Number [facility] [address] [address] * (ABNORMAL) CBC WITH PLATELET (02/15/2024 6:48 AM CDT) WBC 5.76 4.00 - 10.00 k/cmm [facility] RBC 2.90(L) 3.90 - 5.20 m/cmm [facility] Hgb 8.9(L) 11.5 - 15.7 g/dL [facility] Hematocrit 28.4(L) 34.0 - 45.0 % [facility] MCV 97.9 80.0 - 100.0 fL [facility] MCH 30.7 25.0 - 32.0 pg [facility] MCHC 31.3 31.0 - 36.0 g/dL [facility] RDW 15.3(H) 11.5 - 14.5 % [facility] Plt 156 150 - 400 k/cmm [facility] MPV 10.3 6.5 - 12.5 fL [facility] Blood 02/15/2024 6:48 AM CDT 02/15/2024 7:49 AM CDT Ernestine Toribio MD LABORATORY Performing Organization Address [facility] Co de Phone Number [facility] [address] [address] * (ABNORMAL) PROTHROMBIN (PT) & INR (02/15/2024 6:48 AM CDT) PT 15.5(H) 9.0 - 12.5 sec [facility] INR 1.4(H) 0.8 - 1.1 [facility] Comment: Warfarin Therapeutic Range: Standard Intensity: 2.0 - 3.0 High Intensity: 2.5 - 3.5 Blood 02/15/2024 6:48 AM CDT 02/15/2024 7:32 AM CDT Ernestine Toribio MD LABORATORY Performing Organization Address [facility] Co de Phone Number [facility] [address] [address] * (ABNORMAL) PANEL HEPATIC FUNCTION (02/15/2024 6:48 AM CDT) Total Protein 6.3(L) 6.4 - 8.3 g/dL [facility] Albumin 1.9(L) 3.8 - 5.1 g/dL [facility] Bili Total 0.7 <=1.2 mg/dL [facility] Bili Direct 0.3 <=0.3 mg/dL [facility] Alk Phos 144(H) 35 - 104 IU/L [facility] Comment:No reference range e stablished for patients <18 years old. ALT (SGPT) <5 <=33 IU/L [facility] AST(SGOT) 37 5 - 40 IU/L [facility] Blood 02/15/2024 6:48 AM CDT 02/15/2024 7:32 AM CDT Ernestine Toribio MD LABORATORY Performing Organization Address [facility] Co de Phone Number [facility] [address] [address] * (ABNORMAL) PANEL BASIC METABOLIC (BMP) (02/15/2024 6:48 AM CDT) Sodium 129(L) 135 - 148 mEq/L [facility] Potassium 4.1 3.5 - 5.3 mEq/L [facility] Chloride 97 92 - 108 mEq/L [facility] CO2 26 22 - 30 mEq/L [facility] AnGap 6(L) 8 - 16 mEq/L [facility] Glucose 80 70 - 100 mg/dL [facility] BUN 17 6 - 20 mg/dL [facility] Creatinine 0.60 0.50 - 1.00 mg/dL [facility] Calcium 7.7(L) 8.6 - 10.0 mg/dL [facility] eGFR (2020 CKD-EPI) 103 >=60 ml/min/1.7 3m2 [facility] Comment: The estimated glomerular filtration rate (eGFR) was calculated using the CKD-EPI 2020 creatinine equation, which does not include race as a factor. This equation is validated in individuals 18 years of age and older, and eGFR is normalized to a body surface area of 1.73m^2. Blood 02/15/2024 6:48 AM CDT 02/15/2024 7:32 AM CDT Ernestine Toribio MD LABORATORY [facility] [address] [place] [id number] * POC GLUCOSE (02/15/2024 6:04 AM CDT) POC Glucose 77 70 - 100 mg/dL [facility] Blood 02/15/2024 6:04 AM CDT Humphrey Rose MD LABORATORY Performing Organization Address City/[facility] Co de Phone Number [facility]INT [facility] CARE [address] [place] [address], [place] * POC GLUCOSE (02/15/2024 12:06 AM CDT) POC Glucose 85 70 - 100 mg/dL [facility] Blood 02/15/2024 12:0 6 AM CDT Humphrey Rose MD LABORATORY [facility]ARE [address] [place] [address], [place] * POC GLUCOSE (02/14/2024 9:02 PM CDT) POC Glucose 74 70 - 100 mg/dL [facility] Blood 02/14/2024 9:02 PM CDT Humphrey Rose MD LABORATORY [facility]INT [facility] CARE [address] [place] [address], [place] * XR ABDOMEN 1 VIEW* (02/14/2024 7:08 PM CDT) Anatomical Region Laterality Modality Abdomen Computed Radiogr aphy 02/14/2024 7:12 PM CDT Impressions 02/14/2024 7:13 PM CDT IMPRESSION: Persistent significant gaseous distention of the sigmoid colon, not significantly changed compared to earlier x-ray on 02/14/2024. Reading Radiologist: Carter Reyes Narrative 02/14/2024 7:13 PM CDT Indication: Abdominal distension s/p rectal tube placement. Evaluate for improvement in distension. ?? Comparison: X-ray 02/14/2024 FINDINGS: Persistent significant gaseous distention of the sigmoid colon, not significantly changed compared to earlier x-ray on 02/14/2024. Procedure Note Carter Reyes MD - 02/14/2024 Indication: Abdominal distension s/p rectal tube placement. Evaluate forimprovement in distension. Comparison: X-ray 02/14/2024 FINDINGS: Persistent significant gaseous distention of the sigmoid colon,not significantly changed compared to earlier x-ray on 02/14/2024. IMPRESSION IMPRESSION: Persistent significant gaseous distention of the sigmoidcolon, not significantly changed compared to earlier x-ray on 02/14/2024. Reading Radiologist: Carter Reyes Ernestine Toribio MD RAD XRAY * LACTATE (LACTIC ACID) (02/14/2024 5:01 PM CDT) Lactate 1.1 0.7 - 2.1 mmol/L [facility] Blood 02/14/2024 5:01 PM CDT 02/14/2024 5:10 PM CDT Narrative [facility] - 02/14/2024 5:14 PM CDT Send specimen on ice! Ernestine Toribio MD LABORATORY [facility] [address] [place] [phone] * POC GLUCOSE (02/14/2024 4:10 PM CDT) POC Glucose 92 70 - 100 mg/dL [facility] Blood 02/14/2024 4:10 PM CDT Humphrey Rose MD LABORATORY Performing Organization Address [facility]/ZIP Co de Phone Number [facility]ARE [address] [place] [address], [place] * POC GLUCOSE (02/14/2024 11:12 AM CDT) POC Glucose 85 70 - 100 mg/dL [facility]ARE Blood 02/14/2024 11:1 2 AM CDT Humphrey Rose MD LABORATORY Performing Organization Address [facility] Co de Phone Number [facility] [address] [place] [address], [place] * XR ABDOMEN 1 VIEW* (02/14/2024 10:42 AM CDT) Anatomical Region Laterality Modality Abdomen Computed Radiogr aphy 02/14/2024 10:4 5 AM CDT Impressions 02/14/2024 10:47 AM CDT IMPRESSION: Gaseous distention of the sigmoid colon which measures up to 12 cm in maximum width, which has progressed compared to recent x-ray on 02/12/2024. No other distended loops of bowel are identified. Reading Radiologist: Carter Reyes Narrative 02/14/2024 10:47 AM CDT Indication: Abdominal distension. Recent decompression colonoscopy for sigmoid dilation. Rule out acute process. ?? Comparison: X-ray 02/12/2024 FINDINGS: Gaseous distention of the sigmoid colon which measures up to 12 cm in maximum width, which has progressed compared to recent x-ray on 02/12/2024. No other distended loops of bowel are identified. Partially visualized postsurgical changes within the bilateral proximal femurs. Procedure Note Carter Reyes MD - 02/14/2024 Indication: Abdominal distension. Recent decompression colonoscopy forsigmoid dilation. Rule out acute process. Comparison: X-ray 02/12/2024 FINDINGS: Gaseous distention of the sigmoid colon which measures up to 12cm in maximum width, which has progressed compared to recent x-ray on02/12/2024. No other distended loops of bowel are identified. Partiallyvisualized postsurgical changes within the bilateral proximal femurs. IMPRESSION IMPRESSION: Gaseous distention of the sigmoid colon which measures up to12 cm in maximum width, which has progressed compared to recent x-ray on02/12/2024. No other distended loops of bowel are identified. Reading Radiologist: Carter Reyes Ernestine Toribio MD RAD XRAY * PHOSPHORUS (02/14/2024 8:18 AM CDT) Phosphorus 3.5 2.5 - 4.5 mg/dL [facility] Blood 02/14/2024 8:18 AM CDT 02/14/2024 9:14 AM CDT Ernestine Toribio MD LABORATORY [facility] [address] [address] * MAGNESIUM (02/14/2024 8:18 AM CDT) Magnesium 2.1 1.6 - 2.6 mg/dL [facility] Blood 02/14/2024 8:18 AM CDT 02/14/2024 9:14 AM CDT Ernestine Toribio MD LABORATORY [facility] [address] [address] * (ABNORMAL) PROTHROMBIN (PT) & INR (02/14/2024 8:18 AM CDT) PT 15.8(H) 9.0 - 12.5 sec [facility] INR 1.4(H) 0.8 - 1.1 [facility] Comment: Warfarin Therapeutic Range: Standard Intensity: 2.0 - 3.0 High Intensity: 2.5 - 3.5 Blood 02/14/2024 8:18 AM CDT 02/14/2024 9:13 AM CDT Ernestine Toribio MD LABORATORY Performing Organization Address [facility] Co de Phone Number [facility] [address] [address] * (ABNORMAL) CBC WITH PLATELET (02/14/2024 8:18 AM CDT) WBC 5.76 4.00 - 10.00 k/cmm [facility] RBC 3.00(L) 3.90 - 5.20 m/cmm [facility] Hgb 9.1(L) 11.5 - 15.7 g/dL [facility] Hematocrit 29.5(L) 34.0 - 45.0 % [facility] MCV 98.3 80.0 - 100.0 fL [facility] MCH 30.3 25.0 - 32.0 pg [facility] MCHC 30.8(L) 31.0 - 36.0 g/dL [facility] RDW 15.4(H) 11.5 - 14.5 % [facility] Plt 166 150 - 400 k/cmm [facility] MPV 10.0 6.5 - 12.5 fL [facility] Blood 02/14/2024 8:18 AM CDT 02/14/2024 9:14 AM CDT Ernestine Toribio MD LABORATORY Performing Organization Address City/[facility]/ZIP Co de Phone Number [facility] [address] [address] * (ABNORMAL) PANEL HEPATIC FUNCTION (02/14/2024 8:18 AM CDT) Total Protein 6.6 6.4 - 8.3 g/dL [facility] Albumin 2.0(L) 3.8 - 5.1 g/dL [facility] Bili Total 0.8 <=1.2 mg/dL [facility] Bili Direct 0.3 <=0.3 mg/dL [facility] Alk Phos 146(H) 35 - 104 IU/L [facility] Comment:No reference range e stablished for patients <18 years old. ALT (SGPT) <5 <=33 IU/L [facility] AST(SGOT) 41(H) 5 - 40 IU/L [facility] Blood 02/14/2024 8:18 AM CDT 02/14/2024 9:14 AM CDT Ernestine Toribio MD LABORATORY Performing Organization Address [facility] Co de Phone Number [facility] [address] [address] * (ABNORMAL) PANEL BASIC METABOLIC (BMP) (02/14/2024 8:18 AM CDT) Sodium 128(L) 135 - 148 mEq/L [facility] Potassium 3.9 3.5 - 5.3 mEq/L [facility] Chloride 95 92 - 108 mEq/L [facility] CO2 25 22 - 30 mEq/L [facility] AnGap 8 8 - 16 mEq/L [facility] Glucose 78 70 - 100 mg/dL [facility] BUN 16 6 - 20 mg/dL [facility] Creatinine 0.58 0.50 - 1.00 mg/dL [facility] Calcium 7.6(L) 8.6 - 10.0 mg/dL [facility] eGFR (2020 CKD-EPI) 104 >=60 ml/min/1.7 3m2 [facility] Comment: The estimated glomerular filtration rate (eGFR) was calculated using the CKD-EPI 2020 creatinine equation, which does not include race as a factor. This equation is validated in individuals 18 years of age and older, and eGFR is normalized to a body surface area of 1.73m^2. Blood 02/14/2024 8:18 AM CDT 02/14/2024 9:14 AM CDT Ernestine Toribio MD LABORATORY Performing Organization Address [facility]/ZIP Co de Phone Number [facility] [address] [address] * POC GLUCOSE (02/14/2024 6:07 AM CDT) POC Glucose 75 70 - 100 mg/dL [facility] POINT OF CARE Blood 02/14/2024 6:07 AM CDT Humphrey Rose MD LABORATORY Performing Organization Address City/[facility] Co de Phone Number [facility] POINT OF CARE [address] [place] [address], [place] * POC GLUCOSE (02/13/2024 11:59 PM CDT) POC Glucose 93 70 - 100 mg/dL [facility] POINT OF CARE Blood 02/13/2024 11:5 9 PM CDT Humphrey Rose MD LABORATORY Performing Organization Address City/[facility] Co de Phone Number [facility] [address] [place] [address], [place] * (ABNORMAL) POC GLUCOSE (02/13/2024 6:06 PM CDT) POC Glucose 108(H) 70 - 100 mg/dL [facility] POINT [facility] Blood 02/13/2024 6:06 PM CDT Humphrey Rose MD LABORATORY Performing Organization Address City/[facility] Co de Phone Number [facility] [address] [place] [address], [place] * POC GLUCOSE (02/13/2024 11:46 AM CDT) POC Glucose 90 70 - 100 mg/dL [facility] POINT OF CARE Blood 02/13/2024 11:4 6 AM CDT Humphrey Rose MD LABORATORY Performing Organization Address City/[facility]/ZIP Co de Phone Number [facility] [address] [place] [address], [place] * (ABNORMAL) CBC WITH PLATELET (02/13/2024 9:06 AM CDT) WBC 4.84 4.00 - 10.00 k/cmm [facility] RBC 2.96(L) 3.90 - 5.20 m/cmm [facility] Hgb 8.9(L) 11.5 - 15.7 g/dL [facility] Hematocrit 28.1(L) 34.0 - 45.0 % [facility] MCV 94.9 80.0 - 100.0 fL [facility] MCH 30.1 25.0 - 32.0 pg [facility] MCHC 31.7 31.0 - 36.0 g/dL [facility] RDW 15.4(H) 11.5 - 14.5 % [facility] Plt 174 150 - 400 k/cmm [facility] MPV 9.9 6.5 - 12.5 fL [facility] Blood 02/13/2024 9:06 AM CDT 02/13/2024 9:28 AM CDT Ernestine Toribio MD LABORATORY [facility] [address] [place] [address] * (ABNORMAL) PANEL BASIC METABOLIC (BMP) (02/13/2024 9:06 AM CDT) Sodium 131(L) 135 - 148 mEq/L [facility] Potassium 3.8 3.5 - 5.3 mEq/L [facility] Chloride 97 92 - 108 mEq/L [facility] CO2 27 22 - 30 mEq/L [facility] AnGap 7(L) 8 - 16 mEq/L [facility] Glucose 87 70 - 100 mg/dL [facility] BUN 16 6 - 20 mg/dL [facility] Creatinine 0.60 0.50 - 1.00 mg/dL [facility] Calcium 7.5(L) 8.6 - 10.0 mg/dL [facility] eGFR (2020 CKD-EPI) 103 >=60 ml/min/1.7 3m2 [facility] Comment: The estimated glomerular filtration rate (eGFR) was calculated using the CKD-EPI 2020 creatinine equation, which does not include race as a factor. This equation is validated in individuals 18 years of age and older, and eGFR is normalized to a body surface area of 1.73m^2. Blood 02/13/2024 9:06 AM CDT 02/13/2024 9:28 AM CDT Ernestine Toribio MD LABORATORY Performing Organization Address [facility] Co de Phone Number [facility] [address] [address] * (ABNORMAL) PANEL HEPATIC FUNCTION (02/13/2024 9:06 AM CDT) [facility] Total Protein 6.4 6.4 - 8.3 g/dL [facility] Albumin 2.1(L) 3.8 - 5.1 g/dL [facility] Bili Total 0.9 <=1.2 mg/dL [facility] Bili Direct 0.4(H) <=0.3 mg/dL [facility] Alk Phos 142(H) 35 - 104 IU/L [facility] Comment:No reference range e stablished for patients <18 years old. ALT (SGPT) <5 <=33 IU/L [facility] AST(SGOT) 36 5 - 40 IU/L [facility] Blood 02/13/2024 9:06 AM CDT 02/13/2024 9:28 AM CDT Ernestine Toribio MD LABORATORY Performing Organization Address [facility] Co de Phone Number [facility] [address] [address] * POC GLUCOSE (02/13/2024 6:07 AM CDT) Pathologist [facility] POC Glucose 83 70 - 100 mg/dL [facility] Blood 02/13/2024 6:07 AM CDT Humphrey Rose MD LABORATORY Performing Organization Address [facility] Co de Phone Number [facility] [address] [place] [address], * POC GLUCOSE (02/13/2024 12:05 AM CDT) POC Glucose 88 70 - 100 mg/dL [facility] Blood 02/13/2024 12:0 5 AM CDT Humphrey Rose MD LABORATORY Performing Organization Address City/[facility]/ZIP Co de Phone Number [facility] CARE [address] [place] [phone], [place] * LACTATE (LACTIC ACID) (02/12/2024 8:15 PM CDT) Lactate 2.0 0.7 - 2.1 mmol/L [facility] Blood 02/12/2024 8:15 PM CDT 02/12/2024 8:36 PM CDT Narrative [facility] - 02/12/2024 8:41 PM CDT Send specimen on ice! Ernestine Toribio MD LABORATORY [facility] [address] [place] [phone] * (ABNORMAL) POC GLUCOSE (02/12/2024 5:56 PM CDT) POC Glucose 110(H) 70 - 100 mg/dL [facility] POINT [facility] CARE Blood 02/12/2024 5:56 PM CDT Humphrey Rose MD LABORATORY [facility] POINT OF CARE [address] [place] [phone], [place] * LACTATE (LACTIC ACID) (02/12/2024 2:45 PM CDT) Lactate 2.1 0.7 - 2.1 mmol/L [facility] Blood 02/12/2024 2:45 PM CDT 02/12/2024 3:00 PM CDT Narrative [facility] - 02/12/2024 3:05 PM CDT Send specimen on ice! Khloe Reyes PA-C LABORATORY Performing Organization Address City/[facility] Co de Phone Number [facility] [address] [place] [phone] * POC GLUCOSE (02/12/2024 12:49 PM CDT) POC Glucose 93 70 - 100 mg/dL [facility] POINT OF CARE Blood 02/12/2024 12:4 9 PM CDT Humphrey Rose MD LABORATORY Performing Organization Address [facility] Co de Phone Number [facility] [address] [place] [phone], [place] * (ABNORMAL) POC GLUCOSE (02/12/2024 12:20 PM CDT) POC Glucose 64(L) 70 - 100 mg/dL [facility] POINT [facility] Blood 02/12/2024 12:2 0 PM CDT Humphrey Rose MD LABORATORY Performing Organization Address [facility] de Phone Number [address] [address], [place] * XR ABDOMEN 1 VIEW* (02/12/2024 10:03 AM CDT) Anatomical Region Laterality Modality Abdomen Computed Radiogr aphy 02/12/2024 10:1 0 AM CDT Impressions 02/12/2024 10:11 AM CDT impression: Significantly improved air distention of the sigmoid colon Reading Radiologist: Ruy Ross Narrative 02/12/2024 10:11 AM CDT Technique: XR ABDOMEN 1 VIEW* Indication: F/U decompression colonoscopy ?? Comparison: 02/11/2024 Findings/ Procedure Note Ruy Ross MD - 02/12/2024 Technique: XR ABDOMEN 1 VIEW* Indication: F/U decompression colonoscopy Comparison: 02/11/2024 Findings/ IMPRESSION impression: Significantly improved air distention of the sigmoid colon Reading Radiologist: Ruy Ross Sascha Cavazos PA-C RAD XRAY * LACTATE (LACTIC ACID) (02/12/2024 8:50 AM CDT) Lactate 1.6 0.7 - 2.1 mmol/L [facility] Blood 02/12/2024 8:50 AM CDT 02/12/2024 9:13 AM CDT Narrative [facility] - 02/12/2024 9:20 AM CDT Send specimen on ice! Khloe Reyes PA-C LABORATORY Performing Organization Address City/[facility]/ZIP Co de Phone Number [facility] [address] [address] * (ABNORMAL) CBC WITH PLATELET (02/12/2024 8:50 AM CDT) WBC 5.15 4.00 - 10.00 k/cmm [facility] RBC 3.11(L) 3.90 - 5.20 m/cmm [facility] Hgb 9.4(L) 11.5 - 15.7 g/dL [facility] Hematocrit 29.4(L) 34.0 - 45.0 % [facility] MCV 94.5 80.0 - 100.0 fL [facility] MCH 30.2 25.0 - 32.0 pg [facility] MCHC 32.0 31.0 - 36.0 g/dL [facility] RDW 15.5(H) 11.5 - 14.5 % [facility] Plt 199 150 - 400 k/cmm [facility] MPV 9.7 6.5 - 12.5 fL [facility] Blood 02/12/2024 8:50 AM CDT 02/12/2024 9:10 AM CDT Ernestine Toribio MD LABORATORY Performing Organization Address City/[facility]/ZIP Co de Phone Number [facility] [address] [address] * (ABNORMAL) PROTHROMBIN (PT) & INR (02/12/2024 8:50 AM CDT) PT 18.7(H) 9.0 - 12.5 sec [facility] INR 1.7(H) 0.8 - 1.1 [facility] Comment: Warfarin Therapeutic Range: Standard Intensity: 2.0 - 3.0 High Intensity: 2.5 - 3.5 Blood 02/12/2024 8:50 AM CDT 02/12/2024 9:10 AM CDT Ernestine Toribio MD LABORATORY [facility] [address] [address] * (ABNORMAL) PANEL HEPATIC FUNCTION (02/12/2024 8:50 AM CDT) Total Protein 6.7 6.4 - 8.3 g/dL [facility] Albumin 2.3(L) 3.8 - 5.1 g/dL [facility] Bili Total 0.9 <=1.2 mg/dL [facility] Bili Direct 0.4(H) <=0.3 mg/dL [facility] Alk Phos 131(H) 35 - 104 IU/L [facility] Comment:No reference range e stablished for patients <18 years old. ALT (SGPT) <5 <=33 IU/L [facility] AST(SGOT) 35 5 - 40 IU/L [facility] Blood 02/12/2024 8:50 AM CDT 02/12/2024 9:10 AM CDT Ernestine Toribio MD LABORATORY [facility] [address] [address] * (ABNORMAL) PANEL BASIC METABOLIC (BMP) (02/12/2024 8:50 AM CDT) Sodium 130(L) 135 - 148 mEq/L [facility] Potassium 4.1 3.5 - 5.3 mEq/L [facility] Chloride 97 92 - 108 mEq/L [facility] CO2 27 22 - 30 mEq/L [facility] AnGap 6(L) 8 - 16 mEq/L [facility] Glucose 78 70 - 100 mg/dL [facility] BUN 16 6 - 20 mg/dL [facility] Creatinine 0.56 0.50 - 1.00 mg/dL [facility] Calcium 7.9(L) 8.6 - 10.0 mg/dL [facility] eGFR (2020 CKD-EPI) 105 >=60 ml/min/1.7 3m2 [facility] Comment: The estimated glomerular filtration rate (eGFR) was calculated using the CKD-EPI 2020 creatinine equation, which does not include race as a factor. This equation is validated in individuals 18 years of age and older, and eGFR is normalized to a body surface area of 1.73m^2. Blood 02/12/2024 8:50 AM CDT 02/12/2024 9:10 AM CDT Ernestine Toribio MD LABORATORY Performing Organization Address City/[facility] Co de Phone Number [facility] [place] [address] * POC GLUCOSE (02/12/2024 6:52 AM CDT) POC Glucose 73 70 - 100 mg/dL [facility] Blood 02/12/2024 6:52 AM CDT Humphrey Rose MD LABORATORY [facility] [address] [place] [address] * LACTATE (LACTIC ACID) (02/12/2024 2:54 AM CDT) Lactate 1.4 0.7 - 2.1 mmol/L [facility] Blood 02/12/2024 2:54 AM CDT 02/12/2024 3:08 AM CDT Narrative [facility] - 02/12/2024 3:12 AM CDT Send specimen on ice! Khloe Reyes PA-C LABORATORY [facility] [address] [place] [address] * POC GLUCOSE (02/11/2024 10:43 PM CDT) POC Glucose 94 70 - 100 mg/dL [facility] Blood 02/11/2024 10:4 3 PM CDT Humphrey Rose MD LABORATORY [facility] [address] [place] [address], * COLONOSCOPY-DIAGNOSTIC (02/11/2024 9:24 PM CDT) 02/11/2024 9:24 PM CDT Narrative [facility] - 02/11/2024 10:18 PM CDT Gastroenterology [...] bowel preparation was evaluated using the BBPS ([place] Bowel Preparation Scale) with scores of: Right [...] procedure. Recommendation: ?- [facility]. - NPO. - AXR in the morning - Consult team will evaluate in the morning. - Remainder ofrecommendations per previous GI consult note. Lukas Lambert MD, [id number] 02/11/2024 10:16:48 PM Number of Addenda: 0 Note Initiated On: 02/11/2024 9:24 PM Lukas Lambert MD GI LAB Performing Organization Address [facility] Co de Phone Number [facility] * LACTATE (LACTIC ACID) (02/11/2024 8:51 PM CDT) Lactate 1.3 0.7 - 2.1 mmol/L [facility] Blood 02/11/2024 8:51 PM CDT 02/11/2024 8:57 PM CDT Narrative [facility] - 02/11/2024 9:00 PM CDT Send specimen on ice! Khloe Reyes PA-C LABORATORY Performing Organization Address [facility] Co de Phone Number [address] [address] * LACTATE (LACTIC ACID) (02/11/2024 7:56 PM CDT) Lactate 1.5 0.7 - 2.1 mmol/L [facility] Blood 02/11/2024 7:56 PM CDT 02/11/2024 8:25 PM CDT Narrative [facility] - 02/11/2024 8:28 PM CDT Send specimen on ice! Ernestine Toribio MD LABORATORY Performing Organization Address [facility] Co de Phone Number [facility] [address] [address] * CT ABDOMEN/PELVIS W/IV CON (02/11/2024 2:22 PM CDT) Anatomical Region Laterality Modality Abdomen, Pelvis Computed Tomogra phy 02/11/2024 2:23 PM CDT Impressions 02/11/2024 8:24 PM CDT IMPRESSION: 1.Increase in rectosigmoid colonic distention, with increased distal fecal contents. Mildly increased gaseous distention of the chronically dilated sigmoid colon. 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 2.Liver cirrhosis with splenomegaly and slightly decreased ascites. 3.Trace bibasilar atelectasis, and trace pleural effusion. 4.Cholelithiasis. I have personally reviewed the image(s) and initial interpretation, and I agree with the findings as documented by the resident/fellow. Reading Radiologist: Yasmine Massey Reading Resident: Jay Álvarez 02/11/2024 8:24 PM CDT Comparison: CT abdomen and pelvis 02/02/2024 Indication: Bowel obstruction suspected ??Worsening sigmoid colon distention on abdominal xray, CT for better visualization ?? Technique: Volumetric helical acquisition of CT images from the top of diaphragms to symphysis pubis after the administration of intravenous contrast. DOSE: ?Total DLP = 602 mGy.cm. ?? Findings: FINDINGS: CHEST: LUNGS: Trace bibasilar atelectasis. Trace left pleural effusion. Bilateral bronchial wall calcification. MEDIASTINUM: Nonenlarged heart. No pericardial effusion. ABDOMEN/PELVIS: LIVER: Nodular contour of the liver surface. Moderate to large volume intra-abdominal ascites. STOMACH: Postsurgical changes of Gina-en-Y gastric bypass. BILIARY: No biliary ductal dilation. Chronic cholelithiasis. PANCREAS: Normal. SPLEEN: Splenomegaly, measuring 17.3 cm in the craniocaudal dimension.. ADRENAL GLANDS: Normal. : Normal bilateral kidneys. Stable 2 cm left renal cyst. Non-thickened urinary bladder. Cano in place. BOWEL/PERITONEUM: Interval increase in caliber of rectosigmoid colon, and with increased fecal contents. The rectosigmoid junction measures 7.1 cm in diameter (series [id number], image 84), compared to 4.6 cm on 02/02/2024. Additionally, persistent gaseous distention of the sigmoid colon, up to 13 cm in diameter (series 202, image 81). Slightly decreased ascites. No pneumoperitoneum. Appendix appears within normal limits, limited visualization due to surrounding ascites. RETROPERITONEUM: Normal. VESSELS: No aneurysmal dilation of the aorta. Patent portal, splenic and superior mesenteric veins. LYMPH NODES: No lymphadenopathy. BONES/SOFT TISSUES: No acute osseous abnormality. Bilateral femoral surgical hardware. Procedure Note Yasmine Massey MD - 02/11/2024 Comparison: CT abdomen and pelvis 02/02/2024 Indication: Bowel obstruction suspected Worsening sigmoid colondistention on abdominal xray, CT for better visualization Technique: Volumetric helical acquisition of CT images from the top ofdiaphragms to symphysis pubis after the administration of intravenouscontrast. DOSE: Total DLP = 602 mGy.cm. Findings: FINDINGS: CHEST: LUNGS: Trace bibasilar atelectasis. Trace left pleural effusion. Bilateralbronchial wall calcification. MEDIASTINUM: Nonenlarged heart. No pericardial effusion. ABDOMEN/PELVIS: LIVER: Nodular contour of the liver surface. Moderate to large volumeintra-abdominal ascites. STOMACH: Postsurgical changes of Gina-en-Y gastric bypass. BILIARY: No biliary ductal dilation. Chronic cholelithiasis. PANCREAS: Normal. SPLEEN: Splenomegaly, measuring 17.3 cm in the craniocaudal dimension.. ADRENAL GLANDS: Normal. : Normal bilateral kidneys. Stable 2 cm left renal cyst. Non-thickened urinary bladder. Cano in place. BOWEL/PERITONEUM: Interval increase in caliber of rectosigmoid colon, and with increasedfecal contents. The rectosigmoid junction measures 7.1 cm in diameter(series [id number], image 84), compared to 4.6 cm on 02/02/2024. Additionally,persistent gaseous distention of the sigmoid colon, up to 13 cm indiameter (series 202, image 81). Slightly decreased ascites. No pneumoperitoneum. Appendix appears within normal limits, limited visualization due tosurrounding ascites. RETROPERITONEUM: Normal. VESSELS: No aneurysmal dilation of the aorta. Patent portal, splenic and superiormesenteric veins. LYMPH NODES: No lymphadenopathy. BONES/SOFT TISSUES: No acute osseous abnormality. Bilateral femoral surgical hardware. IMPRESSION IMPRESSION: 1.Increase in rectosigmoid colonic distention, with increased distal fecalcontents. Mildly increased gaseous distention of the chronically dilatedsigmoid colon. 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 2.Liver cirrhosis with splenomegaly and slightly decreased ascites. 3.Trace bibasilar atelectasis, and trace pleural effusion. 4.Cholelithiasis. I have personally reviewed the image(s) and initial interpretation, and Iagree with the findings as documented by the resident/fellow. Reading Radiologist: Yasmine Massey Reading Resident: Jay Álvarez Ernestine Toribio MD RAD CT BODY * XR ABDOMEN 1 VIEW* (02/11/2024 10:07 AM CDT) Anatomical Region Laterality Modality Abdomen Computed Radiogr aphy 02/11/2024 10:0 9 AM CDT Impressions 02/11/2024 10:23 AM CDT Impression: Increasing sigmoid colon distention when compared to the prior CT.. Reading Radiologist: Sameer Sexton Narrative 02/11/2024 10:23 AM CDT Technique: XR ABDOMEN 1 VIEW* Indication: Worsening abdominal distension and pain. Rule out acute process. ?? Comparison: 02/02/2024 Findings: Massive distention of the sigmoid colon noted. This appears to be increased when compared to the CT from 02/02/2024. Consider CT imaging for additional evaluation. Procedure Note Sameer Sexton MBBS - 02/11/2024 Technique: XR ABDOMEN 1 VIEW* Indication: Worsening abdominal distension and pain. Rule out acuteprocess. Comparison: 02/02/2024 Findings: Massive distention of the sigmoid colon noted. This appears gina increased when compared to the CT from 02/02/2024. Consider CT imagingfor additional evaluation. IMPRESSION Impression: Increasing sigmoid colon distention when compared to the prior CT.. Reading Radiologist: Sameer Sexton Ernestine Toribio MD RAD XRAY * (ABNORMAL) PANEL HEPATIC FUNCTION (02/11/2024 7:25 AM CDT) Total Protein 6.3(L) 6.4 - 8.3 g/dL [facility] Albumin 2.3(L) 3.8 - 5.1 g/dL [facility] Bili Total 0.9 <=1.2 mg/dL [facility] Bili Direct 0.4(H) <=0.3 mg/dL [facility] Alk Phos 126(H) 35 - 104 IU/L [facility] Comment:No reference range e stablished for patients <18 years old. ALT (SGPT) <5 <=33 IU/L [facility] AST(SGOT) 34 5 - 40 IU/L [facility] Blood 02/11/2024 7:25 AM CDT 02/11/2024 8:01 AM CDT Ernestine Toribio MD LABORATORY Performing Organization Address City/[facility]/ZIP Co de Phone Number [facility] [address] [address] * (ABNORMAL) PROTHROMBIN (PT) & INR (02/11/2024 7:25 AM CDT) PT 23.0(H) 9.0 - 12.5 sec [facility] INR 2.0(H) 0.8 - 1.1 [facility] Comment: Warfarin Therapeutic Range: Standard Intensity: 2.0 - 3.0 High Intensity: 2.5 - 3.5 Blood 02/11/2024 7:25 AM CDT 02/11/2024 8:01 AM CDT Ernestine Toribio MD LABORATORY Performing Organization Address [facility] Co de Phone Number [facility] [address] [address] * (ABNORMAL) CBC WITH PLATELET (02/11/2024 7:25 AM CDT) WBC 5.83 4.00 - 10.00 k/cmm [facility] RBC 2.94(L) 3.90 - 5.20 m/cmm [facility] Hgb 8.8(L) 11.5 - 15.7 g/dL [facility] Hematocrit 28.0(L) 34.0 - 45.0 % [facility] MCV 95.2 80.0 - 100.0 fL [facility] MCH 29.9 25.0 - 32.0 pg [facility] MCHC 31.4 31.0 - 36.0 g/dL [facility] RDW 15.3(H) 11.5 - 14.5 % [facility] Plt 197 150 - 400 k/cmm [facility] MPV 10.0 6.5 - 12.5 fL [facility] Blood 02/11/2024 7:25 AM CDT 02/11/2024 8:01 AM CDT Ernestine Toribio MD LABORATORY Performing Organization Address [facility] de Phone Number [facility] [address] [address] * (ABNORMAL) PANEL BASIC METABOLIC (BMP) (02/11/2024 7:25 AM CDT) CO2 28 22 - 30 mEq/L [facility] Glucose 84 70 - 100 mg/dL [facility] BUN 15 6 - 20 mg/dL [facility] Creatinine 0.56 0.50 - 1.00 mg/dL [facility] Calcium 7.6(L) 8.6 - 10.0 mg/dL [facility] Sodium 132(L) 135 - 148 mEq/L [facility] Potassium 4.2 3.5 - 5.3 mEq/L [facility] Chloride 98 92 - 108 mEq/L [facility] AnGap 6(L) 8 - 16 mEq/L [facility] eGFR (2020 CKD-EPI) 105 >=60 ml/min/1.7 3m2 [facility] Comment: The estimated glomerular filtration rate (eGFR) was calculated using the CKD-EPI 2020 creatinine equation, which does not include race as a factor. This equation is validated in individuals 18 years of age and older, and eGFR is normalized to a body surface area of 1.73m^2. Blood 02/11/2024 7:25 AM CDT 02/11/2024 8:01 AM CDT Ernestine Toribio MD LABORATORY Performing Organization Address [facility] Co de Phone Number [facility] [address] [address] * MAGNESIUM (02/11/2024 7:20 AM CDT) Magnesium 2.0 1.6 - 2.6 mg/dL [facility] Blood 02/11/2024 7:20 AM CDT 02/11/2024 7:42 PM CDT Ernestine Toribio MD LABORATORY [facility] [address] [address] * PHOSPHORUS (02/11/2024 7:20 AM CDT) Phosphorus 3.3 2.5 - 4.5 mg/dL [facility] Blood 02/11/2024 7:20 AM CDT 02/11/2024 7:42 PM CDT Ernestine Toribio MD LABORATORY Performing Organization Address [facility] Co de Phone Number [facility] [address] [address] * (ABNORMAL) PANEL HEPATIC FUNCTION (02/10/2024 7:06 AM CDT) Pathologist [facility] Total Protein 6.6 6.4 - 8.3 g/dL [facility] Albumin 2.4(L) 3.8 - 5.1 g/dL [facility] Bili Total 1.0 <=1.2 mg/dL [facility] Bili Direct 0.4(H) <=0.3 mg/dL [facility] Alk Phos 132(H) 35 - 104 IU/L [facility] Comment:No reference range e stablished for patients <18 years old. ALT (SGPT) <5 <=33 IU/L [facility] AST(SGOT) 36 5 - 40 IU/L [facility] Blood 02/10/2024 7:06 AM CDT 02/10/2024 7:48 AM CDT Ernestine Toribio MD LABORATORY Performing Organization Address [facility] Co de Phone Number [facility] [address] [address] * (ABNORMAL) PROTHROMBIN (PT) & INR (02/10/2024 7:06 AM CDT) PT 28.4(H) 9.0 - 12.5 sec [facility] INR 2.5(H) 0.8 - 1.1 [facility] Comment: Warfarin Therapeutic Range: Standard Intensity: 2.0 - 3.0 High Intensity: 2.5 - 3.5 Blood 02/10/2024 7:06 AM CDT 02/10/2024 7:48 AM CDT Ernestine Toribio MD LABORATORY Performing Organization Address City/[facility]/ZIP Co de Phone Number [facility] [address] [address] * (ABNORMAL) CBC WITH PLATELET (02/10/2024 7:06 AM CDT) WBC 6.87 4.00 - 10.00 k/cmm [facility] RBC 3.11(L) 3.90 - 5.20 m/cmm [facility] Hgb 9.2(L) 11.5 - 15.7 g/dL [facility] Hematocrit 29.8(L) 34.0 - 45.0 % [facility] MCV 95.8 80.0 - 100.0 fL [facility] MCH 29.6 25.0 - 32.0 pg [facility] MCHC 30.9(L) 31.0 - 36.0 g/dL [facility] RDW 14.9(H) 11.5 - 14.5 % [facility] Plt 221 150 - 400 k/cmm [facility] MPV 10.1 6.5 - 12.5 fL [facility] Blood 02/10/2024 7:06 AM CDT 02/10/2024 7:48 AM CDT Ernestine Toribio MD LABORATORY Performing Organization Address City/[facility] Co de Phone Number [facility] [address] [address] * MAGNESIUM (02/10/2024 7:06 AM CDT) Magnesium 2.1 1.6 - 2.6 mg/dL [facility] Blood 02/10/2024 7:06 AM CDT 02/10/2024 7:48 AM CDT Ernestine Toribio MD LABORATORY [facility] [address] [address] * (ABNORMAL) PANEL BASIC METABOLIC (BMP) (02/10/2024 7:06 AM CDT) CO2 26 22 - 30 mEq/L [facility] Glucose 83 70 - 100 mg/dL [facility] BUN 14 6 - 20 mg/dL [facility] Creatinine 0.53 0.50 - 1.00 mg/dL [facility] Calcium 7.9(L) 8.6 - 10.0 mg/dL [facility] Sodium 132(L) 135 - 148 mEq/L [facility] Potassium 4.0 3.5 - 5.3 mEq/L [facility] Chloride 99 92 - 108 mEq/L [facility] AnGap 7(L) 8 - 16 mEq/L [facility] eGFR (2020 CKD-EPI) 106 >=60 ml/min/1.7 3m2 [facility] Comment: The estimated glomerular filtration rate (eGFR) was calculated using the CKD-EPI 2020 creatinine equation, which does not include race as a factor. This equation is validated in individuals 18 years of age and older, and eGFR is normalized to a body surface area of 1.73m^2. Blood 02/10/2024 7:06 AM CDT 02/10/2024 7:48 AM CDT Ernestine Toribio MD LABORATORY Performing Organization Address City/[facility]/ZIP Co de Phone Number [address] [address] * VITAMIN D (25-OH) (02/10/2024 7:06 AM CDT) Pathologist [facility] Vitamin D Total 25 Hydroxy 66 21 - 70 ng/mL [facility] Comment: Result Interpretation: <=20 ng/mL ?? Vitamin D Deficient 21-29 ng/mL ??Vitamin D Insufficient Blood 02/10/2024 7:06 AM CDT 02/10/2024 7:48 AM CDT Ileana Blanco APRN, HAND [employer]IL[employer]ER LABORATORY [place] [address] [place] [address] * POC GLUCOSE (02/10/2024 6:15 AM CDT) POC Glucose 91 70 - 100 mg/dL [facility] Blood 02/10/2024 6:15 AM CDT Humphrey Rose MD LABORATORY Performing Organization Address City/[facility]/ZIP Co de Phone Number [facility] [address] [place] [address], [place] * POC GLUCOSE (02/09/2024 11:04 PM CDT) POC Glucose 90 70 - 100 mg/dL [facility] POINT [facility] Blood 02/09/2024 11:0 4 PM CDT Humphrey oRse MD LABORATORY Performing Organization Address City/[facility] Co de Phone Number [facility] [address] [place] [address], [place] * POC GLUCOSE (02/09/2024 6:42 AM CDT) POC Glucose 85 70 - 100 mg/dL [facility] Blood 02/09/2024 6:42 AM CDT Humphrey Rose MD LABORATORY Performing Organization Address City/[facility] Co de Phone Number [facility] [address] [place] [address], [place] * POC GLUCOSE (02/08/2024 11:51 PM CDT) POC Glucose 94 70 - 100 mg/dL [facility] Blood 02/08/2024 11:5 1 PM CDT Humphrey Rose MD LABORATORY [facility]ARE [address] [place] [address], [place] * (ABNORMAL) POC GLUCOSE (02/08/2024 5:58 PM CDT) POC Glucose 135(H) 70 - 100 mg/dL [facility] Blood 02/08/2024 5:58 PM CDT Humphrey Rose MD LABORATORY Performing Organization Address [facility] Co de Phone Number [facility]ARE [address] [place] [address], [place] * POC GLUCOSE (02/08/2024 12:30 PM CDT) POC Glucose 82 70 - 100 mg/dL [facility] Blood 02/08/2024 12:3 0 PM CDT Humphrey Rose MD LABORATORY Performing Organization Address [facility] de Phone Number [facility] [address] [place] [address], [place] * IR PARACENTESIS (02/08/2024 11:45 AM [...] to verify the correct patient, procedure, equipment, technical support specialist and site/side marked as required. [...] CDT) PT 29.3(H) 9.0 - 12.5 sec [facility] INR 2.6(H) 0.8 - 1.1 [facility] Comment: Warfarin Therapeutic Range: Standard Intensity: 2.0 - 3.0 High Intensity: 2.5 - 3.5 Blood 02/08/2024 8:19 AM CDT 02/08/2024 8:35 AM CDT Autumn Jerome MD LABORATORY Performing Organization Address [facility] Co de Phone Number [facility] [address] [address] * (ABNORMAL) PANEL HEPATIC FUNCTION (02/08/2024 8:19 AM CDT) Total Protein 6.1(L) 6.4 - 8.3 g/dL [facility] Albumin 2.5(L) 3.8 - 5.1 g/dL [facility] Bili Total 1.0 <=1.2 mg/dL [facility] Bili Direct 0.5(H) <=0.3 mg/dL [facility] Alk Phos 125(H) 35 - 104 IU/L [facility] Comment:No reference range e stablished for patients <18 years old. ALT (SGPT) 6 <=33 IU/L [facility] AST(SGOT) 30 5 - 40 IU/L [facility] Blood 02/08/2024 8:19 AM CDT 02/08/2024 8:35 AM CDT Autumn Jerome MD LABORATORY Performing Organization Address [facility] de Phone Number [facility] [address] [address] * (ABNORMAL) PANEL BASIC METABOLIC (BMP) (02/08/2024 8:19 AM CDT) Sodium 134(L) 135 - 148 mEq/L [facility] Potassium 3.8 3.5 - 5.3 mEq/L [facility] CO2 29 22 - 30 mEq/L [facility] AnGap 5(L) 8 - 16 mEq/L [facility] Glucose 91 70 - 100 mg/dL [facility] BUN 9 6 - 20 mg/dL [facility] Creatinine 0.59 0.50 - 1.00 mg/dL [facility] Chloride 100 92 - 108 mEq/L [facility] Calcium 8.1(L) 8.6 - 10.0 mg/dL [facility] eGFR (2020 CKD-EPI) 104 >=60 ml/min/1.7 3m2 [facility] Comment: The estimated glomerular filtration rate (eGFR) was calculated using the CKD-EPI 2020 creatinine equation, which does not include race as a factor. This equation is validated in individuals 18 years of age and older, and eGFR is normalized to a body surface area of 1.73m^2. Blood 02/08/2024 8:19 AM CDT 02/08/2024 8:35 AM CDT Autumn Jerome MD LABORATORY [facility] [place] [address] * (ABNORMAL) POC GLUCOSE (02/07/2024 6:41 PM CDT) POC Glucose 134(H) 70 - 100 mg/dL [facility] Blood 02/07/2024 6:41 PM CDT Humphrey Rose MD LABORATORY Performing Organization Address City/[facility] Co de Phone Number [facility] [place] [address], * POC GLUCOSE (02/07/2024 12:24 PM CDT) POC Glucose 99 70 - 100 mg/dL [facility] Blood 02/07/2024 12:2 4 PM CDT [place] [address], * PHOSPHORUS (02/07/2024 6:05 AM CDT) Phosphorus 3.2 2.5 - 4.5 mg/dL [facility] Blood 02/07/2024 6:05 AM CDT 02/07/2024 7:28 AM CDT Autumn Jerome MD LABORATORY Performing Organization Address [facility]/ZIP Co de Phone Number [facility] [address] [address] * MAGNESIUM (02/07/2024 6:05 AM CDT) Magnesium 2.0 1.6 - 2.6 mg/dL [facility] Blood 02/07/2024 6:05 AM CDT 02/07/2024 7:28 AM CDT Autumn Jerome MD LABORATORY Performing Organization Address [facility] Co de Phone Number [facility] [address] [address] * (ABNORMAL) PANEL HEPATIC FUNCTION (02/07/2024 6:05 AM CDT) Total Protein 5.7(L) 6.4 - 8.3 g/dL [facility] Albumin 2.3(L) 3.8 - 5.1 g/dL [facility] Bili Total 0.9 <=1.2 mg/dL [facility] Bili Direct na <=0.3 mg/dL [facility] Comment:BILID = 0.4. Accurac y of result suspect due to hemolysis. Alk Phos 116(H) 35 - 104 IU/L [facility] Comment:No reference range e stablished for patients <18 years old. ALT (SGPT) 9 <=33 IU/L [facility] AST(SGOT) na 5 - 40 IU/L [facility] Comment:AST = 37. Accuracy o f result suspect due to hemolysis. Blood 02/07/2024 6:05 AM CDT 02/07/2024 7:28 AM CDT Autumn Jerome MD LABORATORY Performing Organization Address City/[facility]/ZIP Co de Phone Number [facility] [address] [address] * (ABNORMAL) CBC WITH PLATELET (02/07/2024 6:05 AM CDT) WBC 9.53 4.00 - 10.00 k/cmm [facility] RBC 3.19(L) 3.90 - 5.20 m/cmm [facility] Hgb 9.5(L) 11.5 - 15.7 g/dL [facility] Hematocrit 29.8(L) 34.0 - 45.0 % [facility] MCV 93.4 80.0 - 100.0 fL [facility] MCH 29.8 25.0 - 32.0 pg [facility] MCHC 31.9 31.0 - 36.0 g/dL [facility] RDW 13.7 11.5 - 14.5 % [facility] Plt 149(L) 150 - 400 k/cmm [facility] MPV 11.1 6.5 - 12.5 fL [facility] NRBC 0.3(H) 0.0 - 0.0 /100WBC [facility] Blood 02/07/2024 6:05 AM CDT 02/07/2024 7:26 AM CDT Autumn Jerome MD LABORATORY [facility] [address] [place] [id number] * (ABNORMAL) PANEL BASIC METABOLIC (BMP) (02/07/2024 6:05 AM CDT) CO2 23 22 - 30 mEq/L [facility] AnGap 10 8 - 16 mEq/L [facility] Glucose 87 70 - 100 mg/dL [facility] Creatinine 0.58 0.50 - 1.00 mg/dL [facility] Potassium 5.2 3.5 - 5.3 mEq/L [facility] eGFR (2020 CKD-EPI) 104 >=60 ml/min/1.7 3m2 [facility] Comment: The estimated glomerular filtration rate (eGFR) was calculated using the CKD-EPI 2020 creatinine equation, which does not include race as a factor. This equation is validated in individuals 18 years of age and older, and eGFR is normalized to a body surface area of 1.73m^2. Sodium 135 135 - 148 mEq/L [facility] BUN 11 6 - 20 mg/dL [facility] Calcium 7.9(L) 8.6 - 10.0 mg/dL [facility] Chloride 102 92 - 108 mEq/L [facility] Blood 02/07/2024 6:05 AM CDT 02/07/2024 7:28 AM CDT Autumn Jerome MD LABORATORY Performing Organization Address [facility] Co de Phone Number [facility] [place] [address] * (ABNORMAL) POC GLUCOSE (02/06/2024 6:08 PM CDT) POC Glucose 124(H) 70 - 100 mg/dL [facility] Blood 02/06/2024 6:08 PM CDT Humphrey Rose MD LABORATORY Performing Organization Address [facility] de Phone Number [facility] [place] [address], * POC GLUCOSE (02/06/2024 11:57 AM CDT) POC Glucose 98 70 - 100 mg/dL [facility] Blood 02/06/2024 11:5 7 AM CDT Humphrey Rose MD LABORATORY Performing Organization Address [facility] Co de Phone Number [facility] [address] [place] [address] * (ABNORMAL) PROTHROMBIN (PT) & INR (02/06/2024 7:10 AM CDT) PT 18.3(H) 9.0 - 12.5 sec [facility] INR 1.6(H) 0.8 - 1.1 [facility] Comment: Warfarin Therapeutic Range: Standard Intensity: 2.0 - 3.0 High Intensity: 2.5 - 3.5 Blood 02/06/2024 7:10 AM CDT 02/06/2024 7:28 AM CDT Autumn Jerome MD LABORATORY Performing Organization Address [facility] Co de Phone Number [facility] [address] [address] * (ABNORMAL) PANEL HEPATIC FUNCTION (02/06/2024 7:10 AM CDT) Total Protein 5.6(L) 6.4 - 8.3 g/dL [facility] Albumin 2.3(L) 3.8 - 5.1 g/dL [facility] Bili Total 0.8 <=1.2 mg/dL [facility] Bili Direct 0.4(H) <=0.3 mg/dL [facility] Alk Phos 101 35 - 104 IU/L [facility] Comment:No reference range e stablished for patients <18 years old. ALT (SGPT) 12 <=33 IU/L [facility] AST(SGOT) 33 5 - 40 IU/L [facility] Blood 02/06/2024 7:10 AM CDT 02/06/2024 7:28 AM CDT Autumn Jerome MD LABORATORY Performing Organization Address [facility] de Phone Number [facility] [address] [address] * (ABNORMAL) PANEL BASIC METABOLIC (BMP) (02/06/2024 7:10 AM CDT) CO2 26 22 - 30 mEq/L [facility] AnGap 5(L) 8 - 16 mEq/L [facility] Glucose 105(H) 70 - 100 mg/dL [facility] Creatinine 0.61 0.50 - 1.00 mg/dL [facility] Sodium 135 135 - 148 mEq/L [facility] Potassium 4.4 3.5 - 5.3 mEq/L [facility] eGFR (2020 CKD-EPI) 103 >=60 ml/min/1.7 3m2 [facility] Comment: The estimated glomerular filtration rate (eGFR) was calculated using the CKD-EPI 2020 creatinine equation, which does not include race as a factor. This equation is validated in individuals 18 years of age and older, and eGFR is normalized to a body surface area of 1.73m^2. BUN 11 6 - 20 mg/dL [facility] Calcium 8.1(L) 8.6 - 10.0 mg/dL [facility] Chloride 104 92 - 108 mEq/L [facility] Blood 02/06/2024 7:10 AM CDT 02/06/2024 7:28 AM CDT Lia Mcclellan PA-C LABORATORY Performing Organization Address City/[facility]/[place] [address] * (ABNORMAL) HEMOGLOBIN (02/06/2024 7:10 AM CDT) Hgb 8.8(L) 11.5 - 15.7 g/dL [facility] Blood 02/06/2024 7:10 AM CDT 02/06/2024 7:28 AM CDT Lia Mcclellan PA-C LABORATORY Performing Organization Address [facility] Co de Phone Number [address] [address] * (ABNORMAL) POC GLUCOSE (02/06/2024 6:06 AM CDT) POC Glucose 119(H) 70 - 100 mg/dL [facility] Blood 02/06/2024 6:06 AM CDT Humphrey Rose MD LABORATORY Performing Organization Address City/[facility] Co de Phone Number [facility] [address] [place] [address], * (ABNORMAL) POC GLUCOSE (02/06/2024 12:09 AM CDT) POC Glucose 102(H) 70 - 100 mg/dL [facility] Blood 02/06/2024 12:0 9 AM CDT Humphrey Rose MD LABORATORY Performing Organization Address City/[facility]/ZIP Co de Phone Number [facility] [address] [place] [address], [place] * (ABNORMAL) POC GLUCOSE (02/05/2024 3:57 PM CDT) POC Glucose 112(H) 70 - 100 mg/dL [facility] Blood 02/05/2024 3:57 PM CDT Humphrey Rose MD LABORATORY Performing Organization Address City/[facility] Co de Phone Number [facility] POINT [facility] [address] [place] [address], [place] * XR C ARM OVER 3 [...] ADMIN) (02/05/2024 1:19 PM CDT) Unit Number [id number] [facility] Product Code [id number] [facility] Blood Expiration Date [id number] [facility] Blood Type 6200 [facility] Blood Type (TEXT) APOS [facility] Other 02/05/2024 1:19 PM CDT 02/05/2024 1:16 PM CDT Marcus Hanna MD BLOOD BANK ORDERABLE S (BLOOD ADMIN) Performing Organization Address [facility] Co de Phone Number [facility] [place] [address] * POC GLUCOSE (02/05/2024 11:21 AM CDT) POC Glucose 92 70 - 100 mg/dL [facility] Blood 02/05/2024 11:2 1 AM CDT Humphrey Rose MD LABORATORY Performing Organization Address [facility]/ZIP Co de Phone Number [facility] [address] [place] [address], * WOUND CULTURE:GRAM STAIN OPTIONAL (02/05/2024 10:00 AM CDT) Final Report Duplicate order. Patient account credited. [facility] Gram Stain Report Few PMN's seen. No organisms seen. [facility] Swab STRUCTURE OF RIGHT FOOT / Unknown 02/05/2024 10:00 AM CDT 02/05/2024 10:25 AM CDT Narrative [facility] - 02/05/2024 2:53 PM CDT Purulent drainage. Gram Stain please, aerobic, anaerobic Do you want a gram stain: Yes Autumn Jerome MD LAB MICROBIOLOGY Performing Organization Address [facility] Co de Phone Number [facility] [address] [address] * (ABNORMAL) PROTHROMBIN (PT) & INR (02/05/2024 9:15 AM CDT) PT 16.9(H) 9.0 - 12.5 sec [facility] INR 1.5(H) 0.8 - 1.1 [facility] Comment: Warfarin Therapeutic Range: Standard Intensity: 2.0 - 3.0 High Intensity: 2.5 - 3.5 Blood 02/05/2024 9:15 AM CDT 02/05/2024 9:43 AM CDT Autumn Jerome MD LABORATORY Performing Organization Address City/[facility] Co de Phone Number [facility] [address] [address] * (ABNORMAL) PANEL HEPATIC FUNCTION (02/05/2024 9:15 AM CDT) Total Protein 5.5(L) 6.4 - 8.3 g/dL [facility] Albumin 2.2(L) 3.8 - 5.1 g/dL [facility] Bili Total 0.7 <=1.2 mg/dL [facility] Bili Direct 0.4(H) <=0.3 mg/dL [facility] Alk Phos 101 35 - 104 IU/L [facility] Comment:No reference range e stablished for patients <18 years old. ALT (SGPT) 13 <=33 IU/L [facility] AST(SGOT) 33 5 - 40 IU/L [facility] Blood 02/05/2024 9:15 AM CDT 02/05/2024 9:43 AM CDT Autumn Jerome MD LABORATORY Performing Organization Address [facility]/ZIP Co de Phone Number [facility] [address] [address] * (ABNORMAL) CBC WITH PLATELET (02/05/2024 9:15 AM CDT) WBC 5.51 4.00 - 10.00 k/cmm [facility] RBC 3.11(L) 3.90 - 5.20 m/cmm [facility] Hgb 9.4(L) 11.5 - 15.7 g/dL [facility] Hematocrit 28.9(L) 34.0 - 45.0 % [facility] MCV 92.9 80.0 - 100.0 fL [facility] MCH 30.2 25.0 - 32.0 pg [facility] MCHC 32.5 31.0 - 36.0 g/dL [facility] RDW 13.4 11.5 - 14.5 % [facility] Plt 164 150 - 400 k/cmm [facility] MPV 10.2 6.5 - 12.5 fL [facility] Blood 02/05/2024 9:15 AM CDT 02/05/2024 9:43 AM CDT Autumn Jerome MD LABORATORY Performing Organization Address City/[facility]/ZIP Co de Phone Number [facility] [address] [address] * (ABNORMAL) PANEL BASIC METABOLIC (BMP) (02/05/2024 9:15 AM CDT) CO2 25 22 - 30 mEq/L [facility] Glucose 112(H) 70 - 100 mg/dL [facility] BUN 12 6 - 20 mg/dL [facility] Creatinine 0.62 0.50 - 1.00 mg/dL [facility] Calcium 7.8(L) 8.6 - 10.0 mg/dL [facility] Sodium 134(L) 135 - 148 mEq/L [facility] Potassium 4.1 3.5 - 5.3 mEq/L [facility] Chloride 102 92 - 108 mEq/L [facility] AnGap 7(L) 8 - 16 mEq/L [facility] eGFR (2020 CKD-EPI) 103 >=60 ml/min/1.7 3m2 [facility] Comment: The estimated glomerular filtration rate (eGFR) was calculated using the CKD-EPI 2020 creatinine equation, which does not include race as a factor. This equation is validated in individuals 18 years of age and older, and eGFR is normalized to a body surface area of 1.73m^2. Blood 02/05/2024 9:15 AM CDT 02/05/2024 9:43 AM CDT Autumn Jerome MD LABORATORY Performing Organization Address City/[facility]/ZIP Co de Phone Number [facility] [place] [address] * (ABNORMAL) POC GLUCOSE (02/05/2024 6:02 AM CDT) POC Glucose 106(H) 70 - 100 mg/dL [facility] Blood 02/05/2024 6:02 AM CDT Humphrey Rose MD LABORATORY Performing Organization Address City/[facility] Co de Phone Number [facility] CARE [address] [place] [address], [place] * (ABNORMAL) POC GLUCOSE (02/04/2024 11:58 PM CDT) POC Glucose 122(H) 70 - 100 mg/dL [facility] Blood 02/04/2024 11:5 8 PM CDT Humphrey Rose MD LABORATORY Performing Organization Address City/[facility]/ZIP Co de Phone Number [facility] [address] [place] [address], [place] * (ABNORMAL) ANAEROBE CULTURE (02/04/2024 10:44 PM CDT) Final Report Few Enterococcus faecalis isolated. No anaerobes isolated. (POS) [facility] Organism ENTEROCOCCUS FAECALIS(POS) [facility] Swab STRUCTURE OF RIGHT FOOT / Unknown 02/04/2024 10:44 PM CDT 02/05/2024 9:20 AM CDT Autumn Jerome MD LAB MICROBIOLOGY Performing Organization Address [facility]/State/ZIP Co de Phone Number [facility] [address] [place] [address] * (ABNORMAL) WOUND CULTURE:GRAM STAIN OPTIONAL (02/04/2024 10:44 PM CDT) Final Report Moderate Methicillin sensitive Staphylococcus aureus (MSSA) isolated. Methicillin susceptible by PBP2a. Rare Staphylococcus epidermidis isolated. (POS) [facility] Organism METHICILLIN SENSITIVE STAPHYLOCOCCUS AUREUS (MSSA)(POS) [facility] Organism STAPHYLOCOCCUS EPIDERMIDIS(POS) [facility] Gram Stain Report Few PMN's seen. No organisms seen. [facility] Swab STRUCTURE OF RIGHT FOOT / Unknown 02/04/2024 10:44 PM CDT 02/05/2024 9:20 AM CDT Narrative [facility] - 02/07/2024 9:52 AM CDT Do [...] Jerome MD LAB MICROBIOLOGY Performing Organization Address City/[facility]/ZIP Co de Phone Number [address] [address] * HELD MICRO SPECIMEN (02/04/2024 10:44 PM CDT) Final Report Microbiology specimen received in lab with no orders. Add-on order must be placed within 24 hours. If no orders placed, specimen will be discarded. [facility] Swab STRUCTURE OF RIGHT FOOT / Unknown 02/04/2024 10:44 PM CDT 02/04/2024 10:45 PM CDT Narrative [facility] - 02/04/2024 10:46 PM CDT Epic message sent to Autumn Jerome at 02/04/2024 22:46:13 CDT by Solitario Mckinnon MLS. Autumn Jerome MD LAB MICROBIOLOGY Performing Organization Address [facility] Co de Phone Number [address] [address] * POC GLUCOSE (02/04/2024 9:50 PM CDT) POC Glucose 94 70 - 100 mg/dL [facility] Blood 02/04/2024 9:50 PM CDT Humphrey Rose MD LABORATORY Performing Organization Address [facility] Co de Phone Number [facility] [address] [place] [id number], * BLOOD AEROBIC/ANAEROBIC CULTURE (02/04/2024 6:44 PM CDT) Final Report No growth after 5 days. [facility] Blood (Peripheral) 02/04/2024 6:44 PM CDT 02/04/2024 10:14 PM CDT Autumn Jerome MD LAB MICROBIOLOGY Performing Organization Address [facility]/ZIP Co de Phone Number [address] [address] * BLOOD AEROBIC/ANAEROBIC CULTURE (02/04/2024 6:44 PM CDT) Final Report No growth after 5 days. [facility] Blood (Peripheral) 02/04/2024 6:44 PM CDT 02/04/2024 10:14 PM CDT Autumn Jerome MD LAB MICROBIOLOGY Performing Organization Address [facility] Co de Phone Number [facility] [address] [address] * POTASSIUM (02/04/2024 1:17 PM CDT) Potassium 4.3 3.5 - 5.3 mEq/L [facility] Blood 02/04/2024 1:17 PM CDT 02/04/2024 1:33 PM CDT Autumn Jerome MD LABORATORY Performing Organization Address [facility] de Phone Number [address] [address] * ANTIBODY SCREEN (02/04/2024 1:17 PM CDT) Nicky Screen Negative [facility] Blood 02/04/2024 1:17 PM CDT 02/04/2024 1:34 PM CDT Solitario Ha APRN, CRNA LAB TRANSFUSI ON SERVICES Performing Organization Address [facility] Co de Phone Number [address] [address] * BLOOD TYPING-ABO/RH (02/04/2024 1:17 PM CDT) ABORHG A POS [facility] Blood 02/04/2024 1:17 PM CDT 02/04/2024 1:34 PM CDT Solitario Ha APRN, CRNA LAB TRANSFUSI ON SERVICES Performing Organization Address [facility] de Phone Number [facility] [address] [address] * (ABNORMAL) PROTHROMBIN (PT) & INR (02/04/2024 6:40 AM CDT) PT 16.2(H) 9.0 - 12.5 sec [facility] INR 1.4(H) 0.8 - 1.1 [facility] Comment: Warfarin Therapeutic Range: Standard Intensity: 2.0 - 3.0 High Intensity: 2.5 - 3.5 Blood 02/04/2024 6:40 AM CDT 02/04/2024 8:27 AM CDT Autumn Jerome MD LABORATORY [facility] [address] [address] * (ABNORMAL) PANEL HEPATIC FUNCTION (02/04/2024 6:40 AM CDT) Pathologist [facility] Total Protein 5.5(L) 6.4 - 8.3 g/dL [facility] Albumin 2.2(L) 3.8 - 5.1 g/dL [facility] Bili Total 0.8 <=1.2 mg/dL [facility] Bili Direct 0.5(H) <=0.3 mg/dL [facility] Alk Phos 96 35 - 104 IU/L [facility] Comment:No reference range e stablished for patients <18 years old. ALT (SGPT) 15 <=33 IU/L [facility] AST(SGOT) 37 5 - 40 IU/L [facility] Blood 02/04/2024 6:40 AM CDT 02/04/2024 8:27 AM CDT Autumn Jerome MD LABORATORY [facility] [address] [address] * (ABNORMAL) CBC WITH PLATELET (02/04/2024 6:40 AM CDT) WBC 4.55 4.00 - 10.00 k/cmm [facility] RBC 3.03(L) 3.90 - 5.20 m/cmm [facility] Hgb 9.2(L) 11.5 - 15.7 g/dL [facility] Hematocrit 28.8(L) 34.0 - 45.0 % [facility] MCV 95.0 80.0 - 100.0 fL [facility] MCH 30.4 25.0 - 32.0 pg [facility] MCHC 31.9 31.0 - 36.0 g/dL [facility] RDW 13.6 11.5 - 14.5 % [facility] Plt 152 150 - 400 k/cmm [facility] MPV 10.9 6.5 - 12.5 fL [facility] Blood 02/04/2024 6:40 AM CDT 02/04/2024 8:27 AM CDT Autumn Jerome MD LABORATORY [facility] [address] [address] * (ABNORMAL) PANEL BASIC METABOLIC (BMP) (02/04/2024 6:40 AM CDT) CO2 26 22 - 30 mEq/L [facility] Glucose 76 70 - 100 mg/dL [facility] BUN 12 6 - 20 mg/dL [facility] Creatinine 0.64 0.50 - 1.00 mg/dL [facility] Calcium 7.9(L) 8.6 - 10.0 mg/dL [facility] Sodium 136 135 - 148 mEq/L [facility] Potassium 3.4(L) 3.5 - 5.3 mEq/L [facility] Chloride 102 92 - 108 mEq/L [facility] AnGap 8 8 - 16 mEq/L [facility] eGFR (2020 CKD-EPI) 102 >=60 ml/min/1.7 3m2 [facility] Comment: The estimated glomerular filtration rate (eGFR) was calculated using the CKD-EPI 2020 creatinine equation, which does not include race as a factor. This equation is validated in individuals 18 years of age and older, and eGFR is normalized to a body surface area of 1.73m^2. Blood 02/04/2024 6:40 AM CDT 02/04/2024 8:27 AM CDT Autumn Jerome MD LABORATORY Performing Organization Address [facility] Co de Phone Number [facility] [address] [address] * (ABNORMAL) BLOOD AEROBIC/ANAEROBIC CULTURE (02/03/2024 12:13 PM CDT) Final Report Positive Blood Culture Gram stain result called to and read back by: Dr. Autumn Jerome with [facility] at 02/04/2024 14:23:58 by Leidy Mayer MLS([facility]) SM. Bacillus species not anthracis isolated from aerobic bottle only. Organism identified 02/05/2024 11:47:27 No susceptibility done. Plates held one week. (POS) [facility] Organism BACILLUS SPECIES NOT ANTHRACIS(POS) [facility] Blood (Peripheral) 02/03/2024 12:13 PM CDT 02/03/2024 1:03 PM CDT Autumn Jerome MD LAB MICROBIOLOGY Performing Organization Address [facility] Co de Phone Number [facility] [address] [address] * BLOOD AEROBIC/ANAEROBIC CULTURE (02/03/2024 12:06 PM CDT) Final Report No growth after 5 days. [facility] Blood (Peripheral) 02/03/2024 12:06 PM CDT 02/03/2024 1:03 PM CDT Autumn Jerome MD LAB MICROBIOLOGY Performing Organization Address [facility] Co de Phone Number [facility] [address] [address] * (ABNORMAL) PROTHROMBIN (PT) & INR (02/03/2024 8:03 AM CDT) PT 19.8(H) 9.0 - 12.5 sec [facility] INR 1.8(H) 0.8 - 1.1 [facility] Comment: Warfarin Therapeutic Range: Standard Intensity: 2.0 - 3.0 High Intensity: 2.5 - 3.5 Blood 02/03/2024 8:03 AM CDT 02/03/2024 8:48 AM CDT Enedina Austin MD LABORATORY Performing Organization Address [facility] de Phone Number [facility] [address] [address] * (ABNORMAL) PANEL HEPATIC FUNCTION (02/03/2024 8:03 AM CDT) Total Protein 5.5(L) 6.4 - 8.3 g/dL [facility] Albumin 2.2(L) 3.8 - 5.1 g/dL [facility] Bili Total 0.9 <=1.2 mg/dL [facility] Bili Direct 0.5(H) <=0.3 mg/dL [facility] Alk Phos 98 35 - 104 IU/L [facility] Comment:No reference range e stablished for patients <18 years old. ALT (SGPT) 16 <=33 IU/L [facility] AST(SGOT) 36 5 - 40 IU/L [facility] Blood 02/03/2024 8:03 AM CDT 02/03/2024 8:48 AM CDT Enedina Austin MD LABORATORY Performing Organization Address [facility] de Phone Number [facility] [address] [address] * (ABNORMAL) PANEL BASIC METABOLIC (BMP) (02/03/2024 8:03 AM CDT) CO2 25 22 - 30 mEq/L [facility] Glucose 95 70 - 100 mg/dL [facility] BUN 10 6 - 20 mg/dL [facility] Creatinine 0.70 0.50 - 1.00 mg/dL [facility] Calcium 7.5(L) 8.6 - 10.0 mg/dL [facility] Sodium 133(L) 135 - 148 mEq/L [facility] Potassium 3.4(L) 3.5 - 5.3 mEq/L [facility] Chloride 100 92 - 108 mEq/L [facility] AnGap 8 8 - 16 mEq/L [facility] eGFR (2020 CKD-EPI) 100 >=60 ml/min/1.7 3m2 [facility] Comment: The estimated glomerular filtration rate (eGFR) was calculated using the CKD-EPI 2020 creatinine equation, which does not include race as a factor. This equation is validated in individuals 18 years of age and older, and eGFR is normalized to a body surface area of 1.73m^2. Blood 02/03/2024 8:03 AM CDT 02/03/2024 8:48 AM CDT Enedina Austin MD LABORATORY [facility] [address] [address] * (ABNORMAL) CBC WITH PLTS/AUTO DIFF (02/03/2024 8:03 AM CDT) WBC 5.74 4.00 - 10.00 k/cmm [facility] RBC 3.08(L) 3.90 - 5.20 m/cmm [facility] Hgb 9.4(L) 11.5 - 15.7 g/dL [facility] Hematocrit 28.1(L) 34.0 - 45.0 % [facility] MCV 91.2 80.0 - 100.0 fL [facility] MCH 30.5 25.0 - 32.0 pg [facility] MCHC 33.5 31.0 - 36.0 g/dL [facility] RDW 13.6 11.5 - 14.5 % [facility] Plt 155 150 - 400 k/cmm [facility] MPV 10.6 6.5 - 12.5 fL [facility] Automated Abs Neutrophil 4.49 1.70 - 6.50 k/cmm [facility] Comment:Preliminary ANC, Fin al Result to Follow Abs Immature Granulocyte 0.02 0.00 - 0.09 k/cmm [facility] Comment:The Immature Granulo cyte Absolute count contains metamyelocytes and myelocytes. Abs Neutrophil 4.49 1.70 - 6.50 k/cmm [facility] Abs Lymphocyte 0.69(L) 0.80 - 4.00 k/cmm [facility] Abs Monocyte 0.53 0.20 - 1.00 k/cmm [facility] Abs Eosinophil 0.00 0.00 - 0.60 k/cmm [facility] Abs Basophil 0.01 0.00 - 0.20 k/cmm [facility] Blood 02/03/2024 8:03 AM CDT 02/03/2024 8:48 AM CDT Enedina Austin MD LABORATORY [facility] [address] [address] * CT RIGHT FEMUR NO IV CONTRAST (02/02/2024 10:19 PM CDT) Anatomical Region Laterality Modality Lower Extremity Computed Tomogra phy 02/02/2024 10:1 4 PM CDT Addenda Addendum by Carter Reyes MD on 02/02/2024 10:29 PM CDT ADDENDUM: 3-D reconstructions were created by the medical technologist prn on the CT scanner and reviewed by [...] perforation and infection ??Alternatives discussed: ??No treatment Sarles protocol: ??Patient identity confirmed: ??Verbally with patient [...] angulated periprosthetic distal femur fracture. Reading Radiologist: Crater Reyes Humphrey Rose MD RAD XRAY * [...] ??Analgesia without sedation, anxiolysis and regional anesthesia Sarles protocol: ??Procedure explained and questions answered to [...] vital sign checks, continuous pulse oximetry and radiation monitor ??Intra-procedure events: respiratory depression ?Intra-procedure management: [...] MISCELLANEOUS BODY FLUID (02/02/2024 7:51 PM CDT) Pathologist [facility] Result 1.3 [facility] Units BF g/dL [facility] Comment:The reference interv al(s) and other method performance specifications have not been established for this body fluid. The test result must be integrated into the clinical context for interpretation. Fluid 02/02/2024 7:51 PM CDT 02/02/2024 8:11 PM CDT Narrative [facility] - 02/02/2024 9:01 PM CDT fluid: Peritoneal Test: TP Humphrey Rose MD LABORATORY [facility] [address] [place] [address] * BODY FLUID CULTURE:INCLUDES GRAM STAIN (02/02/2024 7:51 PM CDT) Final Report No growth. [facility] Gram Stain Report PMN's seen. No organisms seen. [facility] Peritoneal Fluid PERITONEUM (SEROUS MEMBRANE) STRUCTURE / Unknown 02/02/2024 7:51 PM CDT 02/02/2024 8:04 PM CDT Humphrey Rose MD LAB MICROBIOLO GY Performing Organization Address [facility] de Phone Number [facility] [address] [address] * BODY FLUID CELL COUNT/DIFF (02/02/2024 7:51 PM CDT) Fluid Type PT Peritoneal [facility] Comment:Normal reference ran ges have not been determined; clinical correlation is recommended. Volume PT Fluid 40 mL [facility] Appearance PT Hazy [facility] Color bf Yellow [facility] Rbc PT Fluid <1,000 cells/ul [facility] Nuc Ct PT Fluid 93 cells/ul [facility] Neutrophil PT Fluid 2 % [facility] Lymphocytes PT Fluid 19 % [facility] Basophil PT Fluid 1 % [facility] MONO/MACS FL 53 % [facility] Other PT Fluid 25 % [facility] Comment:Others are mesotheli al cells. Peritoneal Fluid 02/02/2024 7:51 PM CDT 02/02/2024 7:57 PM CDT Humphrey Rose MD LABORATORY Performing Organization Address [facility] de Phone Number [facility] [address] [address] * CT ABDOMEN/PELVIS W/IV CON (02/02/2024 6:50 [...] (02/02/2024 5:15 PM CDT) Color YELLOW YELLOW [facility] Appearance CLOUDY(A) CLEAR [facility] Urine Glucose NEGATIVE NEGATIVE mg/dL [facility] Bili UA TRACE(A) NEGATIVE [facility] Ketones TRACE(A) NEGATIVE [facility] Specific [place] 1.024 1.003 - 1.030 [facility] Blood Ur LARGE(A) Neg-Trace [facility] PH Urine 6.0 5.0 - 7.0 [facility] Protein Ur 30(A) Neg-Trace [facility] Urobilinogen >=8(A) NORMAL EU/dL [facility] Nitrite Ur NEGATIVE NEGATIVE [facility] Leuk Est SMALL(A) Neg-Trace [facility] WBC Ur 6-10(A) 0 - 5 perHPF [facility] RBC Ur >20(A) 0 - 3 perHPF [facility] SQ EPITH 0-5 0 - 5 perHPF [facility] Bacteria UA PRESENT [facility] Comment:Presence of bacteria does not necessarily indicate a UTI. The presence of bacteria can indicate a non-clean catch urine specimen. Bacteria should be used in conjunction with other UA results and clinical presentation to assist in diagnosing an infection. Urinalysis Performed at: [facility] Urine 02/02/2024 5:15 PM CDT 02/02/2024 5:18 PM CDT Humphrey Rose MD LABORATORY [facility] [address] [address] * (ABNORMAL) URINE CULTURE (02/02/2024 5:03 PM CDT) Urine Cult Greater than 100,000 organisms/ml Escherichia coli isolated.(POS) [facility] Organism ESCHERICHIA COLI(POS) [facility] Urine 02/02/2024 5:03 PM CDT 02/02/2024 [...] MD LAB MICROBIOLO GY Performing Organization Address [facility] de Phone Number [facility] [address] [address] * PRECAUTIONARY TUBE (02/02/2024 5:00 PM CDT) [facility] Prec Tube Precautionary Blood Bank Specimen Received. [facility] Blood 02/02/2024 5:00 PM CDT 02/02/2024 5:11 PM CDT [place] MD LAB TRANSFUSION SERV ICES Performing Organization Address [facility] de Phone Number [facility] [address] [address] * LIPASE (02/02/2024 4:01 PM CDT) [facility] Lipase 13 13 - 60 IU/L [facility] Blood 02/02/2024 4:01 PM CDT 02/02/2024 7:02 PM CDT Humphrey Rose MD LABORATORY Performing Organization Address [facility] de Phone Number [facility] [address] [address] * (ABNORMAL) PANEL HEPATIC FUNCTION (02/02/2024 4:01 PM CDT) [facility] Total Protein 5.8(L) 6.4 - 8.3 g/dL [facility] Albumin 2.4(L) 3.8 - 5.1 g/dL [facility] Bili Total 1.1 <=1.2 mg/dL [facility] Bili Direct 0.5(H) <=0.3 mg/dL [facility] Alk Phos 107(H) 35 - 104 IU/L [facility] Comment:No reference range e stablished for patients <18 years old. ALT (SGPT) 19 <=33 IU/L [facility] AST(SGOT) 39 5 - 40 IU/L [facility] Blood 02/02/2024 4:01 PM CDT 02/02/2024 7:02 PM CDT Humphrey Rose MD LABORATORY Performing Organization Address City/[facility]/ZIP Co de Phone Number [facility] [address] [address] * LACTATE (LACTIC ACID) (02/02/2024 4:01 PM CDT) Lactate 1.1 0.7 - 2.1 mmol/L [facility] Blood 02/02/2024 4:01 PM CDT 02/02/2024 4:15 PM CDT Narrative [facility] - 02/02/2024 4:15 PM CDT Send specimen on ice! Humphrey Rose MD LABORATORY Performing Organization Address [facility] Co de Phone Number [facility] [address] [address] * (ABNORMAL) PROTHROMBIN (PT) & INR (02/02/2024 4:01 PM CDT) PT 18.0(H) 9.0 - 12.5 sec [facility] INR 1.6(H) 0.8 - 1.1 [facility] Comment: Warfarin Therapeutic Range: Standard Intensity: 2.0 - 3.0 High Intensity: 2.5 - 3.5 Blood 02/02/2024 4:01 PM CDT 02/02/2024 4:38 PM CDT Humphrey Rose MD LABORATORY Performing Organization Address [facility] Co de Phone Number [facility] [address] [address] * HS TROPONIN (02/02/2024 4:01 PM CDT) HS Troponin I <3 <=14 ng/L [facility] Blood 02/02/2024 4:01 PM CDT 02/02/2024 4:36 PM CDT Narrative [facility] - 02/02/2024 5:10 PM CDT If ordering as an add-on lab, you must call the lab. Humphrey Rose MD LABORATORY [facility] [address] [address] * (ABNORMAL) CBC WITH PLTS/AUTO DIFF (02/02/2024 4:01 PM CDT) Pathologist [facility] WBC 7.34 4.00 - 10.00 k/cmm [facility] RBC 3.08(L) 3.90 - 5.20 m/cmm [facility] Hgb 9.3(L) 11.5 - 15.7 g/dL [facility] Hematocrit 28.5(L) 34.0 - 45.0 % [facility] MCV 92.5 80.0 - 100.0 fL [facility] MCH 30.2 25.0 - 32.0 pg [facility] MCHC 32.6 31.0 - 36.0 g/dL [facility] RDW 13.5 11.5 - 14.5 % [facility] Plt 176 150 - 400 k/cmm [facility] MPV 10.2 6.5 - 12.5 fL [facility] Automated Abs Neutrophil 5.98 1.70 - 6.50 k/cmm [facility] Comment:Preliminary ANC, Fin al Result to Follow Abs Immature Granulocyte 0.03 0.00 - 0.09 k/cmm [facility] Comment:The Immature Granulo cyte Absolute count contains metamyelocytes and myelocytes. Abs Neutrophil 5.98 1.70 - 6.50 k/cmm [facility] Abs Lymphocyte 0.80 0.80 - 4.00 k/cmm [facility] Abs Monocyte 0.52 0.20 - 1.00 k/cmm [facility] Abs Eosinophil 0.00 0.00 - 0.60 k/cmm [facility] Abs Basophil 0.01 0.00 - 0.20 k/cmm [facility] Blood 02/02/2024 4:01 PM CDT 02/02/2024 4:36 PM CDT Humphrey Rose MD LABORATORY Performing Organization Address [facility]/ZIP Co de Phone Number [facility] [address] [address] * (ABNORMAL) ED CHEMISTRY LABS(NA,K,CL,CO2,GLU,CREAT,CA-IONIZED,ANION GAP) (02/02/2024 4:01 PM CDT) Pathologist [facility] Sodium 135 135 - 148 mEq/L [facility] Chloride 100 92 - 108 mEq/L [facility] AnGap 9 8 - 16 mEq/L [facility] Glucose 105(H) 70 - 100 mg/dL [facility] ICA, Actual 4.21(L) 4.40 - 5.20 mg/dL [facility] ICA, pH Corrected 4.45 4.40 - 5.20 mg/dL [facility] Creatinine 0.72 0.50 - 1.00 mg/dL [facility] BICARB 26 22 - 26 mEq/L [facility] eGFR (2020 CKD-EPI) 96 >=60 ml/min/1.7 3m2 [facility] Comment: The estimated glomerular filtration rate (eGFR) was calculated using the CKD-EPI 2020 creatinine equation, which does not include race as a factor. This equation is validated in individuals 18 years of age and older, and eGFR is normalized to a body surface area of 1.73m^2. Potassium 3.5 3.5 - 5.3 mEq/L [facility] Blood 02/02/2024 4:01 PM CDT 02/02/2024 4:15 PM CDT Humphrey Rose MD LABORATORY Performing Organization Address [facility]/ZIP Co de Phone Number [facility] [address] [address] * GLYCOSYLATED HGB - A1C (02/02/2024 4:00 PM CDT) Pathologist [facility] Hemoglobin A1C 4.4 4.0 - 5.6 % [facility] Comment: Increased risk for diabetes (prediabetes): 5.7-6.4% Diabetes >=6.5% In the absence of unequivocal hyperglycemia, diagnosis requires two abnormal test results (i.e. HbA1c and glucose) or two abnormal results from specimens collected at two different timepoints. The presence of some hemoglobin variants or red cell disorders may interfere with the measurement of hemoglobin A1c (HbA1c). Estimated Average Glucose 80 68 - 114 [facility] Comment: The estimated Average Glucose (eAG) was calculated using an equation derived from a study of 507 adults with type 1, type 2, or no diabetes. Minority populations were underrepresented and children were not included. The eAG is not equivalent to a fasting glucose concentration. Blood 02/02/2024 4:00 PM CDT 02/02/2024 11:05 PM CDT Enedina Austin MD LABORATORY Performing Organization Address [facility] Co de Phone Number [facility] [place] [address] * ANTIBODY SCREEN (02/02/2024 4:00 PM CDT) [facility] Nicky Screen Negative [facility] Blood 02/02/2024 4:00 PM CDT 02/02/2024 10:16 PM CDT Ileana Howell APRN, CNP LAB TRANSFUSI ON SERVICES Performing Organization [facility] Co de Phone Number [facility] [place] [id number] * BLOOD TYPING-ABO/RH (02/02/2024 4:00 PM CDT) [facility] ABORHG A POS [facility] Blood 02/02/2024 4:00 PM CDT 02/02/2024 10:16 PM CDT Ileana Howell APRN, CNP LAB TRANSFUSI ON SERVICES Performing Organization Address [facility] Co de Phone Number [facility] [address] [address] * PTT (APTT) (02/02/2024 4:00 PM CDT) APTT 33.0 25.0 - 37.0 sec [facility] Blood 02/02/2024 4:00 PM CDT 02/02/2024 5:57 PM CDT Enedina Austin MD LABORATORY Performing Organization Address [facility] Co de Phone Number [facility] [address] [address] * ED EKG (12-LEAD) (02/02/2024 3:48 PM CDT) 02/02/2024 3:48 PM CDT Impressions [facility] EKG ORDERS - 02/02/2024 3:48 PM CDT SINUS RHYTHM LOW QRS VOLTAGE IN EXTREMITY LEADS ??[QRS DEFLECTION < 0.5 mV IN LIMB LEADS] POSSIBLE ANTERIOR MYOCARDIAL INFARCTION , PROBABLY OLD [30 ms Q WAVE IN V3/V4, OR R < 0.2 mV IN V4] BORDERLINE ECG P-R Interval 184 ms QRS Interval 78 ms QT Interval 365 ms QTC Interval 414 ms [place] -12 QRS [place] -1 T Wave [place] -1 Narrative Procedure Note Lyndon Villanueva MD - 02/02/2024 IMPRESSION SINUS RHYTHM LOW QRS VOLTAGE IN EXTREMITY LEADS [QRS DEFLECTION < 0.5 mV IN LIMBLEADS] POSSIBLE ANTERIOR MYOCARDIAL INFARCTION , PROBABLY OLD [30 ms Q WAVE INV3/V4, OR R < 0.2 mV IN V4] BORDERLINE ECG P-R Interval 184 ms QRS Interval 78 ms QT Interval 365 ms QTC Interval 414 ms [place] -12 QRS [place] -1 T Wave [place] -1 Humphrey Rose MD EKG Performing Organization Address [facility] Co de Phone Number [facility] EKG ORDERS * ED US ABDOMINAL/GALLBLADDER [...] (CMS) Acute cystitis with hematuria Acute cystitis Raya syndrome Crohn's disease with complication, unspecified gastrointestinal tract location (CMS/[facility]) Imaging of gastrointestinal tract abnormal Nonspecific (abnormal) findings on radiological and other examination of gastrointestinal tract Imaging of gastrointestinal tract abnormal Nonspecific (abnormal) findings on radiological and other examination of gastrointestinal tract documented in this encounter Administered Medications Active Administered Medications - up to 3 most recent administrations Medication Order MAR Action Action Date Dose Rate Site acetaminophen (TYLENOL) tablet 650 mg 650 mg, Oral, TID, First dose (after last modification) on Thu02/10/24 at 1999, Until Discontinued Given 02/28/2024 9:03 PM CDT 650 mg Given 02/28/2024 1:48 PM CDT 650 mg Given 02/28/2024 9:01 AM CDT 325 mg calcium (OS-ALICIA) tablet - elemental 500 mg 500 mg, Oral, BID, First dose on Thu02/09/24 at 1999, Until Discontinued Given 02/28/2024 9:05 PM CDT 500 mg Given 02/28/2024 9:01 AM CDT 500 mg Given 02/27/2024 8:47 PM CDT 500 mg carboxymethylcellulose sod PF solution 1 drop 1 drop, eye BOTH, TID, First dose on Thu02/02/24 at 2205, Until Discontinued Given 02/28/2024 9:05 PM CDT 1 drop Given 02/28/2024 1:48 PM CDT 1 drop Given 02/28/2024 9:02 AM CDT 1 drop citalopram (CeleXA) tablet 20 mg 20 mg, Oral, DAILY, First dose on Thu02/03/24 at 0800, Until Discontinued Given 02/28/2024 9:00 AM CDT 20 mg Given 02/27/2024 7:55 AM CDT 20 mg Given 02/26/2024 8:56 AM CDT 20 mg clotrimazole (LOTRIMIN) 1% cream Apply to: abdominal skin folds For External Use Only., Topical, BID, First dose on Ceci 02/04/24 at 2000, Until Discontinued Given 02/28/2024 9:06 PM CDT Given 02/26/2024 9:23 PM CDT Given 02/25/2024 7:45 PM CDT enoxaparin (LOVENOX) 40 mg/0.4 mL injection 40 mg 40 mg, Subcutaneous, DAILY, First dose on 02/21/24 at 1030, Until Discontinued Given 02/28/2024 9:00 AM CDT 40 mg Right Upper Arm Given 02/27/2024 7:54 AM CDT 40 mg Ri ght Upper Arm Given 02/26/2024 8:56 AM CDT 40 mg Ri ght Upper Arm fat emulsions (CLINOLIPID) 20 % infusion 249 mL 249 mL, Intravenous, at 20.8 mL/hr Administer over 12 Hours, Q24H, First dose (after last modification) on 02/28/24 at 2000, Until Discontinued Hang Lipids 02/28/2024 8:57 PM CDT 249 mL 20.8 m L/hr furosemide (LASIX) tablet 10 mg 10 mg, Oral, DAILY, First dose on Thu02/27/24 at 1100, Until Discontinued Given 02/28/2024 9:01 AM CDT 10 mg Given 02/27/2024 12:41 PM CDT 10 mg GABApentin (NEURONTIN) tablet 600 mg 600 mg, Oral, TID, First dose (after last modification) on Thu02/03/24 at 0800, Until Discontinued Given 02/28/2024 9:03 PM CDT 600 mg Given 02/28/2024 1:48 PM CDT 600 mg Given 02/28/2024 9:01 AM CDT 600 mg hydrocerin cream Apply to dry skin., Topical, BID, First dose on 02/08/24 at 2000, Until Discontinued Given 02/28/2024 9:11 PM CDT Given 02/28/2024 9:07 AM CDT Given 02/27/2024 8:48 PM CDT levothyroxine (SYNTHROID) tablet 50 mcg 50 mcg, Oral, DAILY BEFORE AM MEAL, First dose on Thu02/13/24 at 0730, Until Discontinued Given 02/29/2024 6:49 AM CDT 50 mcg Given 02/28/2024 6:31 AM CDT 50 mcg Given 02/27/2024 6:15 AM CDT 50 mcg multivitamin + minerals (CEROVITE SENIOR) 1 tablet 1 tablet, Oral, DAILY, First dose on Thu02/09/24 at 1335, Until Discontinued Given 02/28/2024 9:00 AM CDT 1 tablet Given 02/27/2024 7:56 AM CDT 1 tablet Given 02/26/2024 8:56 AM CDT 1 tablet normal saline flush 0.9 % solution 10 mL 10 mL, IV Push, Q30 MIN PRN, Starting on Thu02/27/24 at 1133, Until Discontinued, IV Line Flush, Per venous access protocol nystatin 331012 unit/g powder Topical, BID, First dose on Thu02/03/24 at 1800, Until Discontinued Given 02/28/2024 9:04 PM CDT Given 02/28/2024 9:06 AM CDT Given 02/27/2024 8:48 PM CDT oxyCODONE (ROXICODONE) tablet 5 mg 5 mg, Oral, BID PRN, Starting on Thu02/21/24 at 1026, Until Discontinued, Moderate Pain (Use First), Severe Pain (Use First) Given 02/28/2024 9:03 PM CDT 5 mg Given 02/28/2024 9:01 AM CDT 5 mg Given 02/27/2024 8:47 PM CDT 5 mg pantoprazole (PROTONIX) tablet 40 mg 40 mg, Oral, DAILY BEFORE AM MEAL, First dose (after last reorder) on Thu02/13/24 at 0730, Until Discontinued Given 02/29/2024 6:49 AM CDT 40 mg Given 02/28/2024 6:31 AM CDT 40 mg Given 02/27/2024 6:15 AM CDT 40 mg polyethylene glycol 3350 (MIRALAX;GLYCOLAX) packet 17 g 17 g, Oral, BID, First dose (after last modification) on Thu02/10/24 at 2000, Until Discontinued Given 02/28/2024 9:00 AM CDT 17 g Given 02/27/2024 8:46 PM CDT 17 g Given 02/27/2024 7:53 AM CDT 17 g pramipexole (MIRAPEX) tablet 0.5 mg 0.5 mg, Oral, DAILY AM, First dose (after last modification) on Thu02/11/24 at 0920, Until Discontinued Given 02/28/2024 9:01 AM CDT 0.5 mg Given 02/27/2024 7:56 AM CDT 0.5 mg Given 02/26/2024 8:57 AM CDT 0.5 mg pramipexole (MIRAPEX) tablet 1 mg 1 mg, Oral, BEDTIME, First dose on Thu02/11/24 at 2000, Until Discontinued Given 02/28/2024 9:03 PM CDT 1 mg Given 02/27/2024 8:46 PM CDT 1 mg Given 02/26/2024 9:24 PM CDT 1 mg sennosides (SENOKOT) tablet 8.6 mg 8.6 mg, Oral, BID, First dose on Thu02/10/24 at 1050, Until Discontinued Given 02/28/2024 9:03 PM CDT 8.6 mg Given 02/28/2024 9:01 AM CDT 8.6 mg Given 02/27/2024 8:47 PM CDT 8.6 mg spironolactone (ALDACTONE) tablet 50 mg 50 mg, Oral, DAILY, First dose on Thu02/27/24 at 1100, Until Discontinued Given 02/28/2024 9:01 AM CDT 50 mg Given 02/27/2024 12:41 PM CDT 50 mg STANDARD Central IV Access Parenteral Nutrition (CLINIMIX E 02/16) at 60 mL/hr, Central, CONTINUOUS, Starting on 02/28/24 at 1100, Until Discontinued Rate changed 02/28/2024 5:48 PM CDT 60 mL/hr Rate Verify 02/28/2024 3:45 PM CDT 30 mL/hr New Bag 02/28/2024 1:37 PM CDT 30 mL/hr traZODone (DESYREL) tablet 100 mg 100 mg, Oral, BEDTIME PRN, Starting on Thu02/21/24 at 1055, Until Discontinued, sleep documented in this encounter Active and Recently Administered Medications Times are shown in CDT. Scheduled Medication Order 02/27/2024 02/28/2024 02/29/2024 acetaminophen (TYLENOL) tablet 650 mg 650 mg, Oral, TID, First dose (after last modification) on Thu02/10/24 at 1999, Until Discontinued 075 (Given - Provider: Stacy Laughlin RN)142 (Given - Provider: Stacy Laughlin RN)2045 (Given - Provider: Gaston Buckley RN) 09 (Given - Provider: Stacy Laughlin RN)134 (Given - Provider: Stacy Laughlin RN)2102 (Given - Provider: Marycruz Espinosa RN) 0800 (Due)1400 (Due)1999 (Due) calcium (OS-ALICIA) tablet - elemental 500 mg 500 mg, Oral, BID, First dose on Thu02/09/24 at 1999, Until Discontinued 075 (Given - Provider: Stacy Laughlin RN)2046 (Given - Provider: Gaston Buckley RN) 09 (Given - Provider: Stacy Laughlin RN)2104 (Given - Provider: Marycruz Espinosa RN) 08 (Due)1999 (Due) carboxymethylcellulose sod PF solution 1 drop 1 drop, eye BOTH, TID, First dose on Thu02/02/24 at 2205, Until Discontinued 075 (Given - Provider: Stacy Laughlin RN)1429 (Given - Provider: Stacy Laughlin RN)2047 (Given - Provider: Gaston Buckley RN) 09 (Given - Provider: Stacy Laughlin RN)134 (Given - Provider: Stacy Laughlin RN)2104 (Given - Provider: Marycruz Espinosa RN) 0800 (Due)1400 (Due)1999 (Due) citalopram (CeleXA) tablet 20 mg 20 mg, Oral, DAILY, First dose on Thu02/03/24 at 0800, Until Discontinued 075 (Given - Provider: Stacy Laughlin RN) 0900 (Given - Provider: Stacy Laughlin RN) 0800 (Due) clotrimazole (LOTRIMIN) 1% cream Apply to: abdominal skin folds For External Use Only., Topical, BID, First dose on Ceci 02/04/24 at 2000, Until Discontinued 802 (Not Given (removes Due time) - Provider: Stacy Laughlin RN - Reason: Patient refused)2025 (Not Given (removes Due time) - Provider: Gaston Buckley RN - Reason: Patient refused) 905 (Not Given (removes Due time) - Provider: Stacy Laughlin RN - Reason: Patient refused)2105 (Given - Provider: Marycruz Espinosa RN) 08 (Due)1999 (Due) enoxaparin (LOVENOX) 40 mg/0.4 mL injection 40 mg 40 mg, Subcutaneous, DAILY, First dose on 02/21/24 at 1030, Until Discontinued 075 (Given - Provider: Stacy Laughlin RN) 09 (Given - Provider: Stacy Laughlin RN) 08 (Due) fat emulsions (CLINOLIPID) 20 % infusion 240 mL (CANCELED) 240 mL, Intravenous, at 10 mL/hr Administer over 24 Hours, Q24H, First dose on Thu02/26/24 at 2000, Until Discontinued 2016 (Hang Lipids - Provider: Gaston Buckley RN) 0954 (Stopped - Provider: Stacy Laughlin RN - Comment: Time automatically adjusted from order being discontinued) fat emulsions (CLINOLIPID) 20 % infusion 249 mL 249 mL, Intravenous, at 20.8 mL/hr Administer over 12 Hours, Q24H, First dose (after last modification) on 02/28/24 at 1999, Until Discontinued 2056 (Hang Lipids - Provider: Marycruz Espinosa RN) 0857 (Due: Remove Lipids - Provider: Marycruz Espinosa RN)1999 (Due) furosemide (LASIX) tablet 10 mg 10 mg, Oral, DAILY, First dose on 02/27/24 at 1100, Until Discontinued 1241 (Given - Provider: Stacy Laughlin RN) 09 (Given - Provider: Stacy Laughlin RN) 08 (Due) GABApentin (NEURONTIN) tablet 600 mg 600 mg, Oral, TID, First dose (after last modification) on Thu02/03/24 at 0800, Until Discontinued 075 (Given - Provider: Stacy Laughlin RN)142 (Given - Provider: Stacy Laughlin RN)2046 (Given - Provider: Gaston Buckley RN) 0901 (Given - Provider: Stacy Laughlin RN)1348 (Given - Provider: Stacy Laughlin RN)2102 (Given - Provider: Marycruz Espinosa RN) 0800 (Due)1400 (Due)1999 (Due) hydrocerin cream Apply to dry skin., Topical, BID, First dose on Thu02/08/24 at 2000, Until Discontinued 0802 (Given - Provider: Stacy Laughlin RN)2047 (Given - Provider: Gaston Buckley RN) 09 (Given - Provider: Stacy Laughlin RN)2110 (Given - Provider: Marycruz Espinosa RN) 0800 (Due)1999 (Due) levothyroxine (SYNTHROID) tablet 50 mcg 50 mcg, Oral, DAILY BEFORE AM MEAL, First dose on Thu02/13/24 at 0730, Until Discontinued 0615 (Given - Provider: Stewart Poe RN) 0631 (Given - Provider: Gaston Buckley RN) 0649 (Given - Provider: Allie Alexandra RN) lidocaine 1% (PF) injection from kit 0.5-1 mL (COMPLETED) 0.5-1 mL, Intradermal, ONE TIME, 1 dose, On Thu02/27/24 at 1135 1136 (Given - Provider: Patricia Dumont RN - Comment: right upper arm with PICC placement) multivitamin + minerals (CEROVITE SENIOR) 1 tablet 1 tablet, Oral, DAILY, First dose on Thu02/09/24 at 1335, Until Discontinued 0756 (Given - Provider: Stacy Laughlin RN) 0900 (Given - Provider: Stacy Laughlin RN) 0800 (Due) normal saline flush 0.9 % solution 10-30 mL (COMPLETED) 10-30 mL, IV Push, ONE TIME, 1 dose, On Thu02/27/24 at 1135 1136 (Given - Provider: Patricia Dumont RN - Comment: right upper arm with PICC placement) nystatin [id number] unit/g powder Topical, BID, First dose on Thu02/03/24 at 1800, Until Discontinued 0802 (Given - Provider: Stacy Laughlin RN)2047 (Given - Provider: Gaston Buckley RN) 09 (Given - Provider: Stacy Laughlin RN)2103 (Given - Provider: Marycruz Espinosa RN) 08 (Due)1999 (Due) pantoprazole (PROTONIX) tablet 40 mg 40 mg, Oral, DAILY BEFORE AM MEAL, First dose (after last reorder) on 02/13/24 at 0730, Until Discontinued 0615 (Given - Provider: Stewart Poe RN) 0631 (Given - Provider: Gaston Buckley RN) 0649 (Given - Provider: Allie Alexandra RN) polyethylene glycol 3350 (MIRALAX;GLYCOLAX) packet 17 g 17 g, Oral, BID, First dose (after last modification) on 02/10/24 at 1999, Until Discontinued 075 (Given - Provider: Stacy Laughlin RN)2045 (Given - Provider: Gaston Buckley RN) 899 (Given - Provider: Stacy Laughlin RN)2103 (Not Given (removes Due time) - Provider: Marycruz Espinosa RN - Reason: Patient refused - Comment: pt had large watery stools.) 08 (Due)1999 (Due) pramipexole (MIRAPEX) tablet 0.5 mg 0.5 mg, Oral, DAILY AM, First dose (after last modification) on Ceci 02/11/24 at 0920, Until Discontinued 075 (Given - Provider: Stacy Laughlin RN) 09 (Given - Provider: Stacy Laughlin RN) 799 (Due) pramipexole (MIRAPEX) tablet 1 mg 1 mg, Oral, BEDTIME, First dose on Ceci 02/11/24 at 1999, Until Discontinued 2045 (Given - Provider: Gaston Buckley RN) 2102 (Given - Provider: Marycruz Espinosa RN) 1999 (Due) sennosides (SENOKOT) tablet 8.6 mg 8.6 mg, Oral, BID, First dose on Thu02/10/24 at 1050, Until Discontinued 075 (Given - Provider: Stacy Laughlin RN)2046 (Given - Provider: Gaston Buckley RN) 09 (Given - Provider: Stacy Laughlin RN)210 (Given - Provider: Marycruz Espinosa RN) 0800 (Due)1999 (Due) spironolactone (ALDACTONE) tablet 50 mg 50 mg, Oral, DAILY, First dose on Thu02/27/24 at 1100, Until Discontinued 1241 (Given - Provider: Stacy Laughlin RN) 09 (Given - Provider: Stacy Laughlin RN) 08 (Due) thiamine (VITAMIN B1) tablet 100 mg (CANCELED) 100 mg, Oral, DAILY, First dose on Thu02/03/24 at 0800, Until Discontinued 0754 (Given - Provider: Stacy Laughlin RN) Continuous Medication Order 02/27/2024 02/28/2024 02/29/2024 STANDARD Central IV Access Parenteral Nutrition (CLINIMIX E 5/15) at 60 mL/hr, Central, CONTINUOUS, Starting on 02/28/24 at 1100, Until Discontinued 1203 (Dual Sign-Off - Provider: Mary Jane Collado RN)1337 (New Bag - Provider: Stacy Laughlin RN - Comment: start time delayed per pt request. Starting rate of 30ml/hr for 4 hours then to goal rate of 60ml/hr per pharmacist)1545 (Rate Verify - Provider: Marycruz Espinosa RN)1747 (Dual Sign-Off - Provider: Marycruz Espinosa RN - Comment: Rate changed)1748 (Rate changed - Provider: Marycruz Espinosa RN) Standard Peripheral IV Access Parenteral Nutrition (CLINIMIX E 4.25/5) (CANCELED) at 75 mL/hr, Peripheral, CONTINUOUS, Starting on Thu02/26/24 at 2000, Until 02/28/24 at 0944 1538 (Dual Sign-Off - Provider: Gaston Buckley RN)1601 (New Bag - Provider: Gaston Buckley RN)194 (Stopped - Provider: Gaston Buckley RN)1999 (Dual Sign-Off - Provider: Gaston Buckley RN)202 (New Bag - Provider: Gaston Buckley RN) 0000 (Infusing - Provider: Gaston Buckley RN)0100 (Infusing - Provider: Gaston Buckley RN)0200 (Infusing - Provider: Gaston Buckley RN)0300 (Infusing - Provider: Gaston Buckley RN)0400 (Infusing - Provider: Gaston Buckley RN)0500 (Infusing - Provider: Gaston Buckley RN)0600 (Infusing - Provider: Gaston Buckley RN)0954 (Stopped - Provider: Stacy Laughlin RN) PRN Medication Order 02/27/2024 02/28/2024 02/29/2024 normal saline flush 0.9 % solution 10 mL 10 mL, IV Push, Q30 MIN PRN, Starting on 02/27/24 at 1133, Until Discontinued, IV Line Flush, Per venous access protocol oxyCODONE (ROXICODONE) tablet 5 mg 5 mg, Oral, BID PRN, Starting on 02/21/24 at 1026, Until Discontinued, Moderate Pain (Use First), Severe Pain (Use First) 0754 (Given - Provider: Stacy Laughlin RN)2047 (Given - Provider: Gaston Buckley RN) 0901 (Given - Provider: Stacy Laughlin RN)210 (Given - Provider: Marycruz Espinosa RN) traZODone (DESYREL) tablet 100 mg 100 mg, Oral, BEDTIME PRN, Starting on 02/21/24 at 1055, Until Discontinued, sleep documented in this encounter
--- OUTSIDE RECORDS SUMMARY | 2024-02-29 07:57 | XMS_ITS | Encounter Summary ---
Author Organization [facility] Address [address] [place] [address] Phone Care Team Providers Care Handkerchief Maker Name Role Phone Unavailable Primary Care Provider Unavailabl e Reason for Visit * Auth/Cert (Routine) Specialty Diagnoses / Procedures Referred By Contac t Referred To Contact ORTHOPEDICS Diagnoses Acute cystitis with hematuria Other fracture of right femur, initial encounter for closed fracture ([facility]) Humphrey Rose MD [address] [place] [address] [facility](G[facility]) [address] [facility] [address] [place] [address] Referral ID Status Reason Start Date Expiration Date Visits Re quested Visits Authorized [id number] 1 1 Encounter Details Date Type Department Care Team (Late st Contact Info) Description 02/11/2024 9:57 PM CDT Anesthesia Event OR P4 [address] [facility] [address] [place], [place] [address] Marcus Hanna MD [address] [place] [address] [address] [place], [place] [id number] Christine Mcdonough SRNA [address] [place] [address] Anesthesia Record Procedure Summary Procedure Name Responsible Anesthesiologist Anesthesia Start Time Anesthesia Stop Time GI COLON DIAGNOSTIC (Endoscopic) Marcus Hanna MD 02/11/24215602/11/242226 Events Date Time Event Comment 02/11/20242148 Anesthetic plan discussed with Anesthesiologist 2148 Pre-op End 2156 An Start 2156 An Start Data 2156 IOPAE The intraoperat velasquez pre-anesthetic evaluation was completed with no changes noted from the pre-operative anesthesia evaluation. 2200 An Induction 2203 An Intubation 2206 No Antibiotic Needed The pat ient has been evaluated by the Surgeon and no antibiotics are needed for surgery. 2216 An Emergence 2220 Extubation 2221 an stop data 2227 An Stop Meds Name Total fentaNYL (SUBLIMAZE) 100 mcg/ 2 mL injec tion 50 mcg lidocaine 2% injection 60 mg propofol (DIPRIVAN) injection 150 mg phenylephrine 100 mcg/mL syringe 100 mcg ondansetron (ZOFRAN) injection 4 mg succinylcholine (ANECTINE) 20 mg/mL inje ction 160 mg lactated ringers infusion 600 mL * Agents Name O2 N20 * Blood No blood administrations on file. [...] (inserted by GEOFF Kovacs RN per note) 02/07/242349 by Willis Méndez RN Peripheral IV 02/11/24; 1999; Yes; 20 gauge, 1 3/4 in length; Anterior, Right; Upper Arm; 1; Placed in Unit 02/11/241999 by Casper Vazquez RN Wound 02/03/24; 0104; Pretibial; Left; 02/17/24; 1428 02/03/24 0104 by Chelsi Mehta RN 02/17/24 1428 by Natacha Bang RN Endotracheal Tube: 02/11/24; 2207 (mauricio jonas via procedure documentation); 7; 02/11/24; 221902/11/242207 by Fan Stanley, DARIO, SERVICE PROVIDER 02/11/242219 by Fan Stanley, DARIO, SERVICE PROVIDER documented in this encounter Social History Tobacco [...] Postprocedure Evaluation - Marcus Hanna MD - 02/11/2024 10:53 PM CDT Anesthesia Post Eval Patient: Cathy Raymond Procedure(s) Performed: GI COLON DIAGNOSTIC (Endoscopic) I've examined the patient and determined that he[facility] is medically [facility]est[facility] type: General () Patient location: PACU Patient status: Post-procedure vital signs reviewed and stable Level of Consciousness: Awake Post-op pain: Adequate Respiratory: Sup O2 Cardiovascular: Stable PONV status: none Fluid status: Acceptable [place]ockade: not indicated Anesthetic Complications: No immediate anesthesia complications Last Vitals: Vitals Value Taken Time BP 92/63 02/11/24 2250 Temp 37 ??C (98.6 ??F) 02/11/24 2225 Pulse 72 02/11/24 2252 Resp 10 02/11/24 2252 SpO2 97 % 02/11/24 2252 Vitals shown include unfiled device data. * Anesthesia Procedure Notes - Fan Stanley APRN, CRNA - 02/11/2024 10:08 PM CDTAssociated Order(s): Intubation/Airway AIRWAY/INTUBATION PROCEDURE direct laryngoscopy (Type: Surgical Anesthesia) Process/Method: sedated and paralyzed RSI Indications for procedure: surgery Assessment: TMD >3 finger breadths and vocal cords open and clear Preoxygenation: mask Device Device used: MAC Supporting device: Blade size: 3 The patient was intubated [...] unchanged and oral mucosa unchanged Performed by: SERVICE PROVIDER: Fan Stanley APRN, CRNA Events Anesthesia start: 02/11/2024 9:57 PM Intubation time: 02/11/2024 10:03 PM * Anesthesia Preprocedure Evaluation - Marcus Hanna MD - 02/11/2024 9:15 PM CDT Anesthesia Pre-Evaluation Summary Statement: This is a 58 y.o. year old patient scheduled for GI COLON DIAGNOSTIC (Endoscopic). Anesthesia Evaluation Internal or external H&P reviewed, patient examined and changes and/or additions made as needed Anesthesia Considerations , Negative for Anesthesia complications Additional ROS/Med Hx Findings: 58 y.o. female with decompensated cirrhosis with ascites, neuropathy with neurogenic bowel and bladder, alcohol use d/o, hypothyroidism, T2DM, MAX admitted for femur fracture and bacteremia. 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 Plan discussed with SERVICE PROVIDER. Vitals: 02/11/24 1556 BP: 100/62 Pulse: Resp: 12 Temp: 36.4 ??C (97.5 ??F) SpO2: 97% documented in this encounter Miscellaneous Notes * Anesthesia Handoff Note - Fan Stanley APRN, CRNA - 02/11/2024 10:26 PM CDT Anesthesia Post Handoff Patient: Cathy Raymond Procedure(s) Performed: GI COLON DIAGNOSTIC (Endoscopic) Patient was stable and nail beds/oral mucosa pink at time of handoff. Patient location: PACU Transportation: Patient was not placed on High Flow Oxygen. Anesthesia Type: general Patient did not meet fast track criteria. Report to RN () The nurse's questions were answered. Last Vitals: Vitals: 02/11/24 1556 BP: 100/62 Pulse: Resp: 12 Temp: 36.4 ??C (97.5 ??F) SpO2: 97% * Anesthesia Extubation Note - Fan Stanley APRN, CRNA - 02/11/2024 10:26 PM CDT Anesthesia Extubation Note At the time of extubation the patient was breathing spontaneously, follows commands, orally suctioned, awake, eyes open and vital signs stable and within normal limits. Extubation details: Spontaneous respirations, High flow oxygen, Oral airway, Oral ETT removed and Pharyngeal reflexes present documented in this encounter Plan of Treatment Upcoming Encounters Date Type Department Care Team (Late st Contact Info) Description 03/03/2024 10:00 AM CDT [facility] [address] [place] [phone] Lia Mcclellan PA-C [address] [facility] [address] [place] [phone] Scheduled Discharge Disposition: Discharged to home or self care (routine discharge) 03/17/2024 9:45 AM CDT [facility]ointment [facility] [address] [place] [id number] Scheduled Discharge Disposition: Discharged to home or self care (routine discharge) 03/17/2024 10:00 AM CDT [facility] [address] [place] [phone] Dayo Henning MD [address] [address] Scheduled Discharge Disposition: Discharged to home or self care (routine discharge) documented as of this encounter Procedures Procedure Name Priority Date/Time Associated Diagnosis Comments INTUBATION Routine 02/11/2024 10:08 PM CDT documented in this encounter Results * Intubation/Airway (02/11/2024 10:08 PM CDT) Narrative [...] unchanged and oral mucosa unchanged Performed by: SERVICE PROVIDER: Fan Stanley APRN, CRNA Events Anesthesia start: 02/11/2024 9:57 PM Intubation time: 02/11/2024 10:03 PM Marcus Hanna MD PROCEDURES documented in this encounter Visit Diagnoses Not on filedocumented in this encounter Administered Medications Inactive Administered Medications - up to 3 most recent administrations Medication Order MAR Action Action Date Dose Rate Site fentaNYL (SUBLIMAZE) 100 mcg/2mL injection Intravenous, INTRA-OP PRN ONCE MAY REPEAT, Starting on Ceci 02/11/24 at 2200, Until Ceci 02/11/24 at 2227 Given 02/11/2024 10:00 PM CDT 50 mcg lactated ringers infusion Intravenous, PERIOP CONTINUOUS, Starting on Ceci 02/11/24 at 2210, Until Ceci 02/11/24 at 2227 New Bag 02/11/2024 9:57 PM CDT lidocaine 2% injection Intravenous, INTRA-OP PRN ONCE MAY REPEAT, Starting on Ceci 02/11/24 at 2200, Until Ceci 02/11/24 at 2227 Given 02/11/2024 10:00 PM CDT 60 mg ondansetron (ZOFRAN) 4 mg/2 mL injection IV Push, INTRA-OP PRN ONCE MAY REPEAT, Starting on Ceci 02/11/24 at 2210, Until Ceci 02/11/24 at 2227 Given 02/11/2024 10:10 PM CDT 4 mg phenylephrine (JOHNATHAN-SYNEPHRINE) 1 mg/10mL injection IV Push, INTRA-OP PRN ONCE MAY REPEAT, Starting on Ceci 02/11/24 at 2201, Until Ceci 02/11/24 at 2227 Given 02/11/2024 10:01 PM CDT 100 mcg propofol (DIPRIVAN) 10 mg/mL injection emulsion Intravenous, INTRA-OP PRN ONCE MAY REPEAT, Starting on Ceci 02/11/24 at 2200, Until Ceci 02/11/24 at 2227 Given 02/11/2024 10:00 PM CDT 150 mg succinylcholine chloride (ANECTINE) 20 mg/mL injection IV Push, INTRA-OP PRN ONCE MAY REPEAT, Starting on Ceci 02/11/24 at 2200, Until Ceci 02/11/24 at 2227 Given 02/11/2024 10:00 PM CDT 160 mg documented in this encounter
--- OUTSIDE RECORDS SUMMARY | 2024-02-29 07:59 | XMS_ITS | Encounter Summary ---
Author Organization [facility] Address [address] [place] [address] Phone Care Team Providers Care Pattern Cutter Name Role Phone Unavailable Primary Care Provider Unavailabl e Reason for Visit * Reason Comments Leg Deformity * Auth/Cert (Routine) Specialty Diagnoses / Procedures Referred By Contac t Referred To Contact ORTHOPEDICS Diagnoses Acute cystitis with hematuria Other fracture of right femur, initial encounter for closed fracture (CMS) Humphrey Rose MD [address] [place] [address] Med [facility] Inpt(G3) [address] [facility] [address] [place] [address] Referral ID Status Reason Start Date Expiration Date Visits Re quested Visits Authorized [id number] 1 1 Encounter Details Date Type Department Care Team (Late st Contact Info) Description 02/11/2024 9:40 PM CDT - 02/11/2024 10:10 PM CDT Surgery OR P4 [address] [facility] [address] [place] [address] [place] [address] GI COLON DIAGNOSTIC Social History Tobacco Use Types Packs/Day Years [...] Sign Reading Time Taken Comments Blood Pressure 100/62 02/11/2024 3:56 PM CDT Pulse 73 02/11/2024 7:36 AM CDT Temperature 36.4 ??C (97.5 ??F) 02/11/2024 3:56 PM CD T Respiratory Rate 12 02/11/2024 3:56 PM CDT Oxygen Saturation 97% 02/11/2024 3:56 PM CDT Inhaled Oxygen Concentration - - Weight 98.4 kg (217 lb) 02/02/2024 11:39 PM CDT Height 172.7 cm (5' 8) 02/02/2024 11:39 PM CDT Body Mass Index 32.99 02/02/2024 11:39 PM CDT documented in this encounter Progress Notes * Zeus Ozuna MD - 02/28/2024 10:39 AM CDT [facility] SURGERY PROGRESS NOTE - MS4/PGY-1 SUMMARY: Cathy Raymond is a 58 y.o. [...] AM Naina Merritt MBBS, 02/28/2024 11:37 AM [facility] Surgery Service Surgery Discharge Milestones (Inpatient Primary [...] POA, Stage 2 - Wound care per [facility] nurse Hypokalemia, intermittent Anemia, stable. - Continue [...] Peripheral IV Access Parenteral Nutrition (CLINIMIX E 4./5) DVT PPx: Lovenox Code Status: Full Code [...] Pertinent labs and imaging personally reviewed in [facility] and applied to medical decision making. Nino Raímrez MD, 02/28/2024 9:42 AM * Raven Ramírez RD, OG - 02/27/2024 3:58 PM CDT Problem: Nutrition, [...] then weekly to monitor tolerance. Raven Ramírez, , RD, LD [employer] Dietitian Weekend [employer] * Miryam Kolb - 02/27/2024 3:33 PM CDT Pt just got a picc line and will be changed to unit collect. GEOFF Byrd will get routine lab from picc. @0966 * Nino Ramírez MD - 02/27/2024 10:34 [...] POA, Stage 2 - Wound care per [facility] nurse Hypokalemia, intermittent Anemia, stable. - Continue [...] Pertinent labs and imaging personally reviewed in [facility] and applied to medical decision making. Nino [...] (L) 02/27/2024 0716 RBC 3.03 (L) 02/27/2024 07 HGB 9.1 (L) 02/27/2024 0716 HCT 29.5 (L) 02/27/2024715 PLT 125 (L) 02/27/2024 07 Lab Results Component Value Date/Time NA 132 [...] hernia. Naina Merritt MBBS, 02/27/2024 8:42 AM [facility] Surgery Service Surgery Discharge Milestones (Inpatient Primary [...] POA, Stage 2 - Wound care per [facility] nurse Hypokalemia (Resolved) Anemia, stable. - Continue [...] Pertinent labs and imaging personally reviewed in [facility] and applied to medical decision making. 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 ) * Isidoro Guerrero CWON - 02/26/2024 1:00 PM CDT Images from the original note were not included. Wound Ostomy Continence Nurse Consult Cathy Raymond - : 1965 - MR# [id number] - Date: 02/26/2024 Reason For Consultation: The patient is being seen in consultation at the request of rn relief charge for evaluation of skin breakdown to labia. [...] identified. WOCN available Thursday through Thursday on Yhat or [phone] Isidoro Guerrero CWON, 02/26/2024 1:08 PM * Davian Toledo RN - 02/26/2024 12:37 PM CDT 02/26/24 1235 Rapid Rounds Attendance park worker;Bedside nurse;clinical resource manager Patient expects to be discharged to: [facility] to [place] Today we still await: Clinical stability (Continues [...] RN, 02/25/2024 10:19 PM, clinical instructor for [facility] * Felipe Mercer PTA - 02/25/2024 3:46 [...] Participation Significantly Limited?: No Intervention: Positioning;Performed Exercises O:Rubber Goods Tester Used: None needed Mental Status Mental Status: [...] STS transfer with no AD, with this tech writer using bear hug and blocking B knees. [...] seated balance, STS, stand pivot, standing tolerance. FREIGHT CONDUCTOR Appropriate: Yes (For EOB activity and standing/transfers, no gait) Felipe Mercer, FREIGHT CONDUCTOR 02/25/2024 Pager: [facility] Dept Problem: Decreased Transfer Skills Goal: Patient will transfer supine to/from sit Description: Patient will transfer supine to/from sit with (6) Modified [place] in order to safely mobilize OOB by [...] manual wheelchair propulsion >20m with (6) Modified [place] in order to progress toward PLOF by [...] as in the hospital - PT/OT, awaiting [facility] placement Diabetic neuropathic ulceration, full thickness, with [...] POA, Stage 2 - Wound care per [facility] nurse Hypokalemia (Resolved) Anemia, stable. - Continue [...] Pertinent labs and imaging personally reviewed in [facility] and applied to medical decision making. Ernestine Toribio MD, 02/25/2024 2:20 PM Hospitalist - Department of Medicine Page via [facility] MDM: The patient's problem complexity is: [x] [...] (reviewing labs/imaging) [x] I talked to a ada accommodation consultant and/or members of the case management and nursing team During this visit, I also did the following adding to morbidity of this patient [] I escalated the level of care [] I held a goals of care discussion [] I prescribed opiates/benzos [x] I continued/started a medication requiring intensive monitoring for toxicity * Eugenia Mead, OTR/L - 02/25/2024 1:45 PM CDT Occupational [...] care/Home mgmt/ADL: 40 minutes LILY Ling/Bethanie Pager: [facility] OT Department * Courtney Potts LGSW - 02/25/2024 10:53 AM CDT SW spoke to Ashley in Admissions for [facility] to let her know patient is still not medically ready will update her tomorrow at [phone]. * Humphrey Turner MD - 02/25/2024 7:07 AM CDT Orthopaedic Surgery Progress Note 02/25/2024 S: MATT overnight. Pain adequately controlled. Continues to struggle with medical comorbidities. Will ultimately need ANA. O: Vitals: 02/23/24 2257 02/24/24 0738 02/24/24 1510 02/24/24 2337 BP: 90/52 99/61 104/60 Cuff Location: Right Arm Left Arm Left Arm Pulse: 66 70 66 Resp: 18 17 16 18 Temp: 36.4 ??C (97.6 ??F) [...] Humphrey Turner MD Orthopedic Surgery PGY-3 * AdalbertodJonnie MD - 02/25/2024 5:28 AM CDT PURPLE [...] underwent colonoscopy on 02/10 and flex sigmoidoscopy 5/13 with improvement in distention/dilation. Surgery was consulted [...] Value Date/Time WBC 2.69 (L) 02/25/2024 0622 RBC 3.06 (L) 02/25/2024 0622 HGB 9.2 (L) 02/25/2024 0622 HCT 28.9 (L) 02/25/2024 0622 PLT 132 (L) 02/25/2024 06 Lab Results Component Value Date/Time NA 133 (L) 02/25/2024 0622 K 3.1 (L) 02/25/2024 0622 CHLORIDE 99 02/25/2024 0622 CO2 27 02/25/2024 0622 GLU 77 02/25/2024 0622 UN 10 02/25/2024 06 CR 0.48 (L) 02/25/2024 06 CA 7.8 (L) 02/25/2024621 Lab Results Component Value Date/Time PO4 3.5 02/25/2024621 Lab Results Component Value Date/Time MG 2.2 02/23/2024 0846 RADIOLOGY: 02/24/24 Abdominal Xray: Ongoing sigmoid distension, moderately increased from previous abdominal xray 02/20/24 CT Abd/Pelvis: Noted ventral hernia. Baudilio Dawkins, , 02/25/2024 8:53 AM [facility] Surgery Service I Cecilio Salazar MD, saw the patient with the medical student and performed, or re- performed, the physical exam and medical decision-making and have verified the accuracy of all the medical student documentation and edited as necessary. Cecilio Salazar MD, 02/25/2024 9:47 AM General Surgery, PGY-5 P: [phone] Surgery Discharge Milestones (Inpatient Primary Team only): [...] POA, Stage 2 - Wound care per [facility] nurse Hypokalemia (Resolved) Anemia, stable. - Continue [...] Subjective/Events of Past 24 Hours: Hospital Day: Ms. Raymond reports doing ok this morning. [...] Pertinent labs and imaging personally reviewed in [facility] and applied to medical decision making. Ernestine Toribio MD, 02/24/2024 5:01 PM Hospitalist - Department of Medicine Page via [facility] MDM: The patient's problem complexity is: [x] [...] (reviewing labs/imaging) [x] I talked to a ada accommodation consultant and/or members of the case management and nursing team During this visit, I also did the following adding to morbidity of this patient [] I escalated the level of care [] I held a goals of care discussion [] I prescribed opiates/benzos [x] I continued/started a medication requiring intensive monitoring for toxicity * Kianna Rice, RD - 02/24/2024 1:00 PM CDT Problem: [...] 76 grams protein Estimated Nutritional Needs: Calories: 3307-7718 Protein: 75+ grams/day Fluid: per primary team [...] ) 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 ) * LumbardJonnie MD - 02/24/2024 8:53 AM CDT PURPLE [...] hernia. Baudilio Dawkins, MS, 02/24/2024 8:56 AM [facility] Surgery Service Surgery Discharge Milestones (Inpatient Primary [...] Participation Significantly Limited?: No Intervention: Positioning;Notified RN O:Rubber Goods Tester Used: None needed Mental Status Mental Status: [...] session (when knees were blocked by Stacy Mo knee pad ), maximal cues/assist to attempt [...] to work on standing/repeated sit<>stands with Stacy Mo vs FWW and assist of 2, sitting balance, LE strengthening/ROM exercises as tolerated, bed<>chair as tolerated. Problem: Decreased Transfer Skills Goal: Patient will transfer supine to/from sit Description: Patient will transfer supine to/from sit with (6) Modified [place] in order to safely mobilize OOB by [...] manual wheelchair propulsion >20m with (6) Modified [place] in order to progress toward PLOF by 03/04/24. Outcome: In progress FREIGHT CONDUCTOR Appropriate: Yes (For EOB activity and standing/transfers, no gait) Mando Briceno, PT 02/23/2024 Pager: [facility] PT Dept * Eugenia Mead OTR/Bethanie - [...] care/Home mgmt/ADL: 30 minutes LILY Ling/Bethanie Pager: [facility] OT Department * Jonnie Matta MD - [...] Reviewed. Baudilio Dawkins, MS, 02/23/2024 1:43 PM [facility] Surgery Service RESIDENT WITH STUDENT: I saw [...] seen in imaging dating back to 2017. A CT abdomen/pelvis with increase inrectosigmoid colonic [...] POA, Stage 2 - Wound care per [facility] nurse Hypokalemia (Resolved) Anemia, stable. - Continue [...] Pertinent labs and imaging personally reviewed in [facility] and applied to medical decision making. Ernestine Toribio MD, 02/23/2024 1:33 PM Hospitalist - Department of Medicine Page via [facility] MDM: The patient's problem complexity is: [x] [...] (reviewing labs/imaging) [x] I talked to a ada accommodation consultant and/or members of the case management [...] with history of marginal ulcer, osteoporosis admitted 4/30/24after fall. FTH left femur fracture and distended [...] Participation Significantly Limited?: No Intervention: Positioning;Notified RN O:Rubber Goods Tester Used: None needed Mental Status Mental Status: [...] total of ~25 minutes Interdisciplinary Communication RN: OK to see, updated re: session performance OT: [...] transfer supine to/from sit with (6) Modified [place] in order to safely mobilize OOB by [...] manual wheelchair propulsion >20m with (6) Modified [place] in order to progress toward PLOF by 03/04/24. Outcome: In progress FREIGHT CONDUCTOR Appropriate: Yes (For EOB activity and standing/transfers with Stacy Mo, no gait) Mando Briceno, PT 02/22/2024 Pager: [facility] PT Dept * Eugenia Mead, OTR/L - [...] care/Home mgmt/ADL: 40 minutes LILY Ling/Bethanie Pager: [facility] OT Department * Courtney Potts LGSW - 02/22/2024 2:34 PM CDT GINNY spoke to Ashley for admissions at [facility] [phone] can take the patient on Thursday. Please [...] POA, Stage 2 - Wound care per [facility] nurse Hypokalemia (Resolved) Anemia, stable. - Continue [...] Pertinent labs and imaging personally reviewed in [facility] and applied to medical decision making. Francy Mc MD, 02/22/2024 11:31 AM Hospitalist - Department of Medicine Page via [facility] * Chalo Shrestha MD - 02/22/2024 10:56 [...] 31.9 02/22/2024 0618 RDW 15.3 (H) 02/22/2024 0618 MPV 10.0 02/22/2024 0618 NRBCA 0.3 (H) [...] Reviewed. Naina Merritt MBBS, 02/22/2024 10:56 AM [facility] Surgery Service, PGY-1 Surgery Discharge Milestones (Inpatient [...] diet as able Estimated Nutritional Needs: Calories: 7144-1660 Protein: 75+ grams/day Fluid: per primary team [...] BMI: Body mass index is 32.99 kg/m??. [place] body weight: 63.6 kg Weight hx: 87 [...] Component Value Date/Time WBC 3.82 (L) 02/22/2024 06 RBC 2.68 (L) 02/22/2024617 HGB 8.1 (L) 02/22/2024 06 HCT 25.4 (L) 02/22/2024 06 PLT 115 (L) 02/22/2024 06 MCV 94.8 02/22/2024 0618 MCH 30.2 02/22/2024 0618 MCHC 31.9 02/22/2024 0618 RDW 15.3 (H) 02/22/2024 0618 MPV 10.0 02/22/2024 0618 NRBCA 0.3 (H) [...] Pertinent labs and imaging personally reviewed in [facility] and applied to medical decision making. Pidcock, Francy Christa, MD, 02/21/2024 10:31 AM Hospitalist - Department of Medicine Page via [facility] * Naina Merritt MBBS - 02/21/2024 9:29 [...] Reviewed. Naina Merritt MBBS, 02/21/2024 9:45 AM [facility] Surgery Service, PGY-1 Surgery Discharge Milestones (Inpatient [...] POA, Stage 2 - Wound care per [facility] nurse Hypokalemia (Resolved) Anemia, stable. - Continue [...] Intake/Output Summary (Last 24 hours) at 02/20/2024 9136 Last data filed at 02/20/2024 0534 Gross [...] Pertinent labs and imaging personally reviewed in [facility] and applied to medical decision making. Francy Mc MD, 02/20/2024 4:07 PM Hospitalist - Department of Medicine Page via [facility] * Francy Mc MD - 02/19/2024 6:28 [...] POA, Stage 2 - Wound care per [facility] nurse Hypokalemia (Resolved) Anemia, stable. - Continue [...] Pertinent labs and imaging personally reviewed in [facility] [employer] and applied to medical decision making. Francy Mc MD, 02/19/2024 6:28 PM Hospitalist - Department of Medicine Page via [facility] * Courtney Potts LGSW - 02/19/2024 2:36 PM CDT SW spoke with patient yesterday about placement at [facility]. Patient was agreeable to placement there. The [...] given regarding post-care. * Mindy Swan APRN, MOLD CHECKER - 02/18/2024 12:49 PM CDT Palliative Care [...] call with questions or concerns. Mindy Swan, MELTER OPERATOR, MOLD CHECKER, 02/18/2024 12:49 PM Palliative Medicine Available [facility] Advance Care Planning Primary Care: No primary [...] their hobbies, activities and interests, spirituality or gnosticist, personal experience with end of life, and [...] POA, Stage 2 - Wound care per [facility] nurse Hypokalemia (Resolved) Anemia, stable. - Continue [...] Pertinent labs and imaging personally reviewed in [facility] and applied to medical decision making. Francy Mc MD, 02/18/2024 11:34 AM Hospitalist - Department of Medicine Page via [facility] * Rose Marie Leigh MD - 02/18/2024 [...] Component Value Ref Range Date/Time URINE CULTURE [[id number]] Collected: 02/02/241702 Specimen: Urine Updated: 02/02/242204 BODY FLUID CULTURE:INCLUDES GRAM STAIN [[id number]] Collected: 02/02/241950 Specimen: Peritoneal Fluid from Peritoneum [...] [place] team in 4 weeks with 2V XR R tatiana Espinoza MD Orthopaedic Surgery, PGY-3 Orthopedic Staff [...] transfer supine to/from sit with (6) Modified [place] in order to safely mobilize OOB by [...] manual wheelchair propulsion >20m with (6) Modified [place] in order to progress toward PLOF by 02/19/24. Outcome: In progress FREIGHT CONDUCTOR Appropriate: No (has not stood) Mando Briceno, PT 02/17/2024 Pager: [facility] PT Dept * Farncy Mc MD - 02/17/2024 2:56 PM CDT [...] Female at 02/17/2024 7:19 AM - Continue FREIGHT CONDUCTOR dose of Furosemide and Spironolactone (increased today) Urinary retention Patient noted to be retaining urine, requiring straight catheterization. Cano replaced on 02/07. - Follow up with Urology vs TOV here Sacral ulcer, POA, Stage 2 - Wound care per [facility] nurse Hypokalemia (Resolved) Anemia, stable. - Continue [...] Pertinent labs and imaging personally reviewed in [facility] [employer] and applied to medical decision making. Francy Mc MD, 02/17/2024 2:56 PM Hospitalist - Department of Medicine Page via [facility] * Mando Briceno, PT - 02/16/2024 2:18 [...] and cytology examination : yes Patient to G3-246 for post-procedure monitoring. Patient education sheets given regarding post-care. * Eugenia Mead OTR/Bethanie - 02/16/2024 2:00 PM CDT Occupational Therapy Note: Pt just leaving for paracentesis. OT will follow up at a later date. Eugenia Mead OTR/Bethanie, 02/16/2024 2:01 PM * Francy Mc MD [...] 8:12 AM - Continue decreased doses of FREIGHT CONDUCTOR Furosemide and Spironolactone Urinary retention Patient noted [...] Pertinent labs and imaging personally reviewed in [facility] [employer] and applied to medical decision making. Francy Mc MD, 02/16/2024 9:50 AM Hospitalist - Department of Medicine Page via [facility] * Ernestine Toribio MD - 02/15/2024 5:16 [...] 6:48 AM - Continue decreased doses of FREIGHT CONDUCTOR Furosemide and Spironolactone Urinary retention Patient noted [...] Past 24 Hours: Hospital Day: 13 Ms. Segundo reports doing ok this morning. She reports [...] Pertinent labs and imaging personally reviewed in [facility] and applied to medical decision making. Ernestine Toribio MD, 02/15/2024 5:16 PM Hospitalist - Department of Medicine Page via [facility] MDM: The patient's problem complexity is: [x] [...] (reviewing labs/imaging) [x] I talked to a ada accommodation consultant and/or members of the case management [...] transfer supine to/from sit with (6) Modified [place] in order to safely mobilize OOB by [...] manual wheelchair propulsion >20m with (6) Modified [place] in order to progress toward PLOF by 02/19/24. Outcome: In progress FREIGHT CONDUCTOR Appropriate: No (has not stood) Mando Briceno, [...] care: Plan For Next OT Session: --stacy mo Total treatment time: 35 minutes OT interventions and time spent on each: Self care/Home mgmt/ADL: 35 minutes LILY Ling/Bethanie Pager: [facility] OT Department * Ernestine Toribio MD - [...] 8:18 AM - Continue decreased doses of FREIGHT CONDUCTOR Furosemide and Spironolactone Urinary retention Patient noted [...] Pertinent labs and imaging personally reviewed in [facility] and applied to medical decision making. Ernestine Toribio MD, 02/14/2024 3:56 PM Hospitalist - Department of Medicine Page via [facility] MDM: The patient's problem complexity is: [x] [...] (reviewing labs/imaging) [x] I talked to a ada accommodation consultant and/or members of the case management [...] 9:06 AM - Continue decreased doses of FREIGHT CONDUCTOR Furosemide and Spironolactone Urinary retention Patient noted [...] Pertinent labs and imaging personally reviewed in [facility] [employer] and applied to medical decision making. Ernestine Toribio MD, 02/13/2024 1:29 PM Hospitalist - Department of Medicine Page via [facility] MDM: The patient's problem complexity is: [x] [...] (reviewing labs/imaging) [x] I talked to a ada accommodation consultant and/or members of the case management [...] 8:50 AM - Continue decreased doses of FREIGHT CONDUCTOR Furosemide and Spironolactone Urinary retention Patient noted [...] Pertinent labs and imaging personally reviewed in [facility] and applied to medical decision making. Ernestine Toribio MD, 02/12/2024 12:47 PM Hospitalist - Department of Medicine Page via [facility] MDM: The patient's problem complexity is: [x] [...] (reviewing labs/imaging) [x] I talked to a ada accommodation consultant and/or members of the case management [...] Selected Services Address Phone Fax Patient Preferred [facility] Pending - Request Sent N/A [address] [facility] [address] [phone] -- Internal Comment last updated by Eden Keane 02/12/2024 1106 LVM for admissions Eden Keane, 02/12/2024 11:06 AM [facility] Pending - Request Sent N/A [address] [facility] [address] [phone] -- Internal Comment last updated by Eden Keane 02/12/2024 1108 LVM for admissions.Eden Keane, 02/12/2024 11:08 AM Lm with admissions to call back [facility] Declined N/A [address] [facility] [place] [address] -- Internal Comment last updated by Courtney Potts LGSW 02/08/[address] closed a year ago [facility] Declined Bed not available N/A [address] [place] [address] [phone] -- [facility] Declined Bed not available N/A [address] [facility] [address] [phone] -- Internal Comment last updated by Eden [...] transfer supine to/from sit with (6) Modified [place] in order to safely mobilize OOB by [...] manual wheelchair propulsion >20m with (6) Modified [place] in order to progress toward PLOF by 02/19/24. Outcome: In progress P: PT 2-4 x week for duration of hospital stay or until goals achieved, for bed mobility, transfersand stand pivot to chair. Next visit sit edge of bed, attempt to stand or mechanical lift to chair FREIGHT CONDUCTOR Appropriate: No (has not stood) Saranya Parker, PT 02/12/2024 Pager: [email or web address] PT Dept * Eugenia Mead, OTR/L - [...] care/Home mgmt/ADL: 40 minutes LILY Ling/Bethanie Pager: [facility] OT Department * Barbara Blevins PA-C - [...] Blevins PA-C, 02/12/2024 9:01 AM * Odin Harris, GEOFF - 02/11/2024 9:36 PM CDT D: Primary [...] 9:05 PM CDT GASTROENTEROLOGY PROGRESS NOTE Cathy SANTOS: 1965 Sex: female ASSESSMENT Asked to reevaluate [...] service including pre-visit review of separatelyobtained history, brsd-cq-rckh interaction performing medically appropriate physical exam, patient counseling/education, interpretation of diagnostic results, care coordination and documentation was 50 minutes. REVIEW OF LABORATORY, PATHOLOGY AND RADIOLOGY DATA: LABS BMP Recent Labs 02/10/24 0702/11/24 0725 NA 132* 132* K 4.0 4.2 CHLORIDE 99 98 CO2 26 28 UN 14 15 CR 0.53 0.56 GLU 83 84 CBC Recent Labs 02/10/24 0702/11/24 0725 HGB 9.2* 8.8* WBC 6.87 5.83 [...] foot wound culture growing MSSA as well. 5/1 blood culture collected here growing bacillus species not anthracis, no gpcs or MSSA. 5/2 blood culture with no growth to [...] 7:25 AM - Continue decreased doses of FREIGHT CONDUCTOR Furosemide and Spironolactone Urinary retention Patient noted [...] Pertinent labs and imaging personally reviewed in [facility] and applied to medical decision making. Ernestine Toribio MD, 02/11/2024 3:19 PM Hospitalist - Department of Medicine Page via [facility] MDM: The patient's problem complexity is: [x] [...] (reviewing labs/imaging) [x] I talked to a ada accommodation consultant and/or members of the case management [...] for PT today, on her way to ID. Will see tomorrow as able Saranya Parker, PT Pager:[facility] License Number [id number] 02/11/2024 * Eugenia Mead OTR/Bethanie - 02/11/2024 2:38 PM CDT Occupational Therapy Note: Arrived for OT session however pt being transported to ID, pt reports feeling awful today. OT will follow up at a later date. Eugenia Mead OTR/Bethanie, 02/11/2024 2:39 PM * Mindy Swan APRN, MOLD CHECKER - 02/11/2024 11:12 AM CDT Palliative Care [...] with questions or concerns. Mindy Swan, DARIO, MOLD CHECKER, 02/11/2024 11:22 AM Palliative Medicine Available [facility] Advance Care Planning Primary Care: No primary [...] their hobbies, activities and interests, spirituality or gnosticist, personal experience with end of life, and [...] Component Value Ref Range Date/Time URINE CULTURE [[id number]] Collected: 02/02/24 170 Specimen: Urine Updated: 02/02/242204 BODY FLUID CULTURE:INCLUDES GRAM STAIN [[id number]] Collected: 02/02/241950 Specimen: Peritoneal Fluid from Peritoneum [...] transfers with assist of 2 from nursing ralph fZita From a PT standpoint, continuing to recommend [...] transfer supine to/from sit with (6) Modified [place] in order to safely mobilize OOB by [...] manual wheelchair propulsion >20m with (6) Modified [place] in order to progress toward PLOF by 02/19/24. Outcome: In progress FREIGHT CONDUCTOR Appropriate: No (needs mobility progressed) Mando Briceno, PT 02/10/2024 Pager: [email or web address] PT Dept * Ernestine Toribio MD - [...] Pertinent labs and imaging personally reviewed in [facility] and applied to medical decision making. Ernestine Toribio MD, 02/10/2024 2:50 PM Hospitalist - Department of Medicine Page via [facility] MDM: The patient's problem complexity is: [x] [...] (reviewing labs/imaging) [x] I talked to a ada accommodation consultant and/or members of the case management and nursing team During this visit, I also did the following adding to morbidity of this patient [] I escalated the level of care [] I held a goals of care discussion [] I prescribed opiates/benzos [x] I continued/started a medication requiring intensive monitoring for toxicity * Eugenia Mead, MIRTHAR/Bethanie - 02/10/2024 2:07 PM CDT Occupational Therapy [...] care/Home mgmt/ADL: 25 minutes LILY Ling/Bethanie Pager: [facility] OT Department * Yuni Fernandez D - 02/10/2024 1:52 PM CDT Clinical Coordination [...] CDT Orthopaedic Surgery Progress Note 02/10/2024 S: NAEO. AFVSS. Nursing notes reviewed. Patient sleeping comfortably. O: [...] Component Value Ref Range Date/Time URINE CULTURE [[id number]] Collected: 02/02/241702 Specimen: Urine Updated: 02/02/242204 BODY FLUID CULTURE:INCLUDES GRAM STAIN [[id number]] Collected: 02/02/241950 Specimen: Peritoneal Fluid from Peritoneum [...] transfer supine to/from sit with (6) Modified [place] in order to safely mobilize OOB by [...] manual wheelchair propulsion >20m with (6) Modified [place] in order to progress toward PLOF by 02/19/24. Outcome: In progress FREIGHT CONDUCTOR Appropriate: No (needs mobility progressed) Mando Briceno, PT 02/09/2024 Pager: [facility] PT Dept * Eugenia Mead OTR/Bethanie - 02/09/2024 11:00 AM CDT Occupational Therapy [...] (attempted with assist of 2 and stacy stedy) Cognition Mental Status: Oriented x 3;Alert;Cooperative;Follows 1 [...] on each: Self care/Home mgmt/ADL: 45 minutes AUDIE Ling Pager: [facility] OT Department * Ernestine Toribio MD - [...] Pertinent labs and imaging personally reviewed in [facility] and applied to medical decision making. Ernestine Toribio MD, 02/09/2024 8:08 AM Hospitalist - Department of Medicine Page via [facility] MDM: The patient's problem complexity is: [x] [...] (reviewing labs/imaging) [x] I talked to a ada accommodation consultant and/or members of the case management [...] Component Value Ref Range Date/Time URINE CULTURE [[id number]] Collected: 02/02/241702 Specimen: Urine Updated: 02/02/242204 BODY FLUID CULTURE:INCLUDES GRAM STAIN [[id number]] Collected: 02/02/241950 Specimen: Peritoneal Fluid from Peritoneum [...] Constipation # Insomnia # GERD - Continue FREIGHT CONDUCTOR cetirizine, citalopram, gabapentin, levothyroxine, pantoprazole, PEG/senna, trazodone [...] Female at 02/08/2024 8:19 AM Charge Capture Product Marketing Engineer * Mando Briceno, PT - 02/08/2024 12:10 PM CDT Chart reviewed for PT follow-up session this AM, session attempted - unable to see as patient at procedure, will reattempt later this date vs tomorrow as time allows. Mando Briceno, PT, 02/08/2024 12:10 PM * Jesse Pineda RN - 02/08/2024 11:46 AM CDT TRANSFER NOTE Report called to nurse, of Cathy Raymond at [facility] Patient transported back to [facility] via Bed, Accompanied by Transporter, Patient's condition [...] Component Value Ref Range Date/Time URINE CULTURE [[id number]] Collected: 02/02/241702 Specimen: Urine Updated: 02/02/242204 BODY FLUID CULTURE:INCLUDES GRAM STAIN [[id number]] Collected: 02/02/241950 Specimen: Peritoneal Fluid from Peritoneum [...] Constipation # Insomnia # GERD - Continue FREIGHT CONDUCTOR cetirizine, citalopram, gabapentin, levothyroxine, pantoprazole, PEG/senna, trazodone [...] Female at 02/07/2024 6:05 AM Charge Capture Product Marketing Engineer * Dayo Henning MD - 02/07/2024 7:58 [...] Component Value Ref Range Date/Time URINE CULTURE [[id number]] Collected: 02/02/241702 Specimen: Urine Updated: 02/02/242204 BODY FLUID CULTURE:INCLUDES GRAM STAIN [[id number]] Collected: 02/02/241950 Specimen: Peritoneal Fluid from Peritoneum [...] Constipation # Insomnia # GERD - Continue FREIGHT CONDUCTOR cetirizine, citalopram, gabapentin, levothyroxine, pantoprazole, PEG/senna, trazodone [...] Female at 02/06/2024 7:10 AM Charge Capture Product Marketing Engineer * Cely Buck DPM - 02/06/2024 8:46 [...] patient's care at this time. Please page software engineer web applications resident with questions. INTERVAL ILLNESS: Patient seen [...] Component Value Ref Range Date/Time URINE CULTURE [[id number]] Collected: 02/02/241702 Specimen: Urine Updated: 02/02/242204 BODY FLUID CULTURE:INCLUDES GRAM STAIN [[id number]] Collected: 02/02/241950 Specimen: Peritoneal Fluid from Peritoneum [...] Constipation # Insomnia # GERD - Continue FREIGHT CONDUCTOR cetirizine, citalopram, gabapentin, levothyroxine, pantoprazole, PEG/senna, trazodone [...] Female at 02/05/2024 9:15 AM Charge Capture Product Marketing Engineer * Gladys Samuels DPM - 02/05/2024 7:46 [...] continue to follow while inpatient. Please page software engineer web applications resident with questions. Patient was discussed with software engineer web applications staff, Dr. Samuels CHIEF COMPLAINT: Right foot blister INTERVAL ILLNESS: Cathy Raymond is a 58 y.o. female presenting with right foot wound that she first noticed on T[place]. Today she states she is doing well, just feeling tired. Denies any new symptoms or concerns. Tolerated dressing change well. PAST MEDICAL HISTORY: Patient Active Problem List Diagnosis Date Noted Other fracture of right femur, initial encounter for closed fracture ([facility]) 02/02/2024 CURRENT HEALTH STATUS Medications: Current Facility-Administered Medications Medication Route Frequency clotrimazole (LOTRIMIN) 1% cream Topical bid bisacodyl (DULCOLAX) suppository 10 mg Rectal daily nystatin 490678 unit/g powder Topical bid citalopram (CeleXA) tablet [...] Component Value Ref Range Date/Time URINE CULTURE [[id number]] Collected: 02/02/241702 Specimen: Urine Updated: 02/02/242204 BODY FLUID CULTURE:INCLUDES GRAM STAIN [[id number]] Collected: 02/02/241950 Specimen: Peritoneal Fluid from Peritoneum [...] Constipation # Insomnia # GERD - Continue FREIGHT CONDUCTOR cetirizine, citalopram, gabapentin, levothyroxine, pantoprazole, PEG/senna, trazodone [...] Female at 02/04/2024 6:40 AM Charge Capture Product Marketing Engineer * Macy Paul MD - 02/04/2024 7:31 [...] indicated at this time. We recommend continuing [id number] discussions with her primary team and palliative care, however, as she remains high risk for future surgeries given her medical co-morbidities. Surgery will sign-off at this time; please page the [facility] surgery team pager via [employer] with any future questions or concerns. PHYSICAL [...] articular surface, suggestive of mild avascular necrosis Mayc Paul MD, 02/04/2024 7:31 AM General Surgery Resident PGY1, Green Surgery Service Surgery Discharge Milestones (Inpatient Primary Team only): Associated attestation - Moises Montana MD - 02/09/2024 3:39 PM CDT FACULTY NOTE I saw and evaluated the patient on the date of the tech writer's note. I discussed with the tech writer of the note and agree with their findings and plan documented in the tech writer's note from above. Any revisions by me [...] Component Value Ref Range Date/Time URINE CULTURE [[id number]] Collected: 02/02/241702 Specimen: Urine Updated: 02/02/242204 BODY FLUID CULTURE:INCLUDES GRAM STAIN [[id number]] Collected: 02/02/241950 Specimen: Peritoneal Fluid from Peritoneum [...] new results of positive blood cx from [place] as well as one [place] [facility]. They arereportedly two different classes of [...] DC per protocol. * Carter Maurer APRN, MOLD CHECKER - 02/03/2024 12:20 PM CDT SURGERY PROGRESS NOTE--GLASS PRESSER Cathy Raymond : 1965 Sex: female SIGNIFICANT [...] Carter Maurer APRN, RALPH, 02/03/2024 12:21 PM [facility] Department of Surgery Pager: via telemediq I have spent 30 minutes with this patient today in which greater than 50% of this time was spent incounseling/coordination of care regarding in patient care, review of imaging/labs, chart review andconsultant recommendations. Dictation Disclaimer: Some notes are completed with voice-recognition dictation software. Errors are generally corrected in real time. Please contact me via [facility] [employer] staff message if you note any errors requiring clarification. Associated attestation - Moiess Montana MD - 02/09/2024 3:39 PM CDT FACULTY NOTE I saw and evaluated the patient on the date of the tech writer's note. I discussed with the tech writer of the note and agree with their findings and plan documented in the tech writer's note from above. Any revisions by me are documented. Moises Montana MD, 02/09/2024 3:39 PM * Sara Hdez RN - 02/03/2024 12:09 PM CDTSummary: Discharge planning Care Coordination Assessment Patient Name: Cathy Raymond Date: 02/03/2024 Expected DC Date: 02/06/2024 Social Information Rubber Goods Tester Used: None needed Decision Maker at Admission: Self Living Situation: Home Patient Identified Support System: Services Receiving: INTERNAL MEDICINE VETERINARY TECHNICIAN / Skilled Services ([facility] for OT, PT, RN) Complex Medical Needs: None Transportation Used for Discharge: stretcher Safety Concerns: None Behavioral Health Concerns: None Patient Family Goals Patient's Discharge Goal: agreeable to consider TCU in [place] Family's Discharge Goal: n/a Plan/Interventions Discharge Plan: [...] FRED to get imaging pushed from both [place] and [facility]. Sent FRED to both places, anticipate that imaging should be available soon. Anticipate that she will require TCU placement. She prefers [place] and has been at facilities there previously. Currently open to home care through [facility]. Will continue to follow. Sara Hdez RN, [...] Constipation # Insomnia # GERD - Continue FREIGHT CONDUCTOR cetirizine, citalopram, gabapentin, levothyroxine, pantoprazole, PEG/senna, trazodone - HOLD oxybutynin - Check Hb A1c Subjective/Events of Past 24 Hours: Hospital Day: 1 Reports fine No nausea or vomiting No abdominal pain Objective: Physical Exam GEN: NAD, laying in bed RES: clear lungs, on wheezing, rales or rhonchi CV: r/r/r, no murmurs, rubs or gallops ABD: distended Labs reviewed Charge Capture Product Marketing Engineer * Giselle Johansen MD - 02/03/2024 4:42 [...] Component Value Ref Range Date/Time URINE CULTURE [[id number]] Collected: 02/02/241702 Specimen: Urine Updated: 02/02/242204 BODY FLUID CULTURE:INCLUDES GRAM STAIN [[id number]] Collected: 02/02/241950 Specimen: Peritoneal Fluid from Peritoneum [...] risk of post-operative mortality as estimated by VOCAL-Rutledge Score - Overall, the patient is medically [...] Constipation # Insomnia # GERD - Continue FREIGHT CONDUCTOR cetirizine, citalopram, gabapentin, levothyroxine, pantoprazole, PEG/senna, trazodone [...] (A) NEGATIVE Ketones TRACE (A) NEGATIVE Specific [place] 1.024 1.003 - 1.030 Blood Ur LARGE (A) Neg-Trace PH Urine 6.0 5.0 - 7.0 Protein Ur 30 (A) Neg-Trace Urobilinogen >=8 (A) NORMAL EU/dL Nitrite Ur NEGATIVE NEGATIVE Leuk Est SMALL (A) Neg-Trace WBC Ur 6-10 (A) 0 - 5 perHPF RBC Ur >20 (A) 0 - 3 perHPF SQ EPITH 0-5 0 - 5 perHPF Bacteria UA PRESENT Urinalysis Performed at: [facility] BODY FLUID CELL COUNT/DIFF Result Value [...] Dumont RN Authorized by: Nino Ramírez MD [place] Protocol: Verbal consent obtained?: Yes Written consent [...] total length, 2 cm out secured with [id number]; AC to IS: 5 cm; Circumference 10 cm above AC: 24 cm) Catheter ordnance keeper: Bard Lot Number: [id number] Pre-procedure: landmarks identified Ultrasound guidance: Yes Number [...] Paracentesis Date/Time: 02/19/2024 2:55 PM Performed by: oCco Buckley PA-C Authorized by: Coco Buckley PA-C [...] to verify the correct patient, procedure, equipment, business support and site/side marked as required. Initial [...] to verify the correct patient, procedure, equipment, business support and site/side marked as required. Initial [...] to verify the correct patient, procedure, equipment, business support and site/side marked as required. Initial [...] and cytology examination : No Patient to [facility] for post-procedure monitoring. Patient education sheets given regarding post-care. * Humphrey Rose MD - 02/02/2024 10:03 PM CDTAssociated Order(s): Paracentesis Paracentesis Performed by: Cooper Loaiza MD Authorized by: Humphrey Rose MD Consent: Consent obtained: Verbal Consent given by: Patient Risks discussed: Bleeding, bowel perforation and infection Alternatives discussed: No treatment [place] protocol: Patient identity confirmed: Verbally with patient [...] Analgesia without sedation, anxiolysis and regional anesthesia [facility] [place] protocol: Procedure explained and questions answered to [...] vital sign checks, continuous pulse oximetry and management development specialist Intra-procedure events: respiratory depression Intra-procedure management: Airway [...] use d/o, hypothyroidism, T2DM, MAX, gastric bypass 2003 with history of marginal ulcer, osteoporosis who [...] 02/20/2024 6:27 PM General Surgery, PGY-2 Pager: [phone] or [email or web address] Chief Complaint: Abdominal pain/distention History of Present [...] Procedure: GI COLON DIAGNOSTIC; Laterality: N/A; Surgeon: Demetrice, Gi; Service: Gastroenterology GI FLEX SIG N/A [...] CHLORIDE 96 02/20/2024 0744 CO2 27 02/20/2024 0744 GLU 83 02/20/2024 0744 UN 15 02/20/2024 0744 CR 0.61 02/20/2024 0744 CA 8.0 (L) 02/20/2024743 CBC Lab Results Component Value Date/Time WBC 3.10 (L) 02/20/2024 07 RBC 2.63 (L) 02/20/2024 07 HGB 8.7 (L) 02/20/20242036 HCT 25.7 (L) 02/20/2024743 PLT 116 (L) 02/20/2024 0744 Coagulation Lab [...] evidence of obstruction, volvulus, or perforation.Findings suggest Raya syndrome. 2. Postsurgical changes of [...] BMI: Body mass index is 32.99 kg/m??. [place] body weight: 63.6 kg Weight hx: 93 [...] Manning Segundo - : 1965 - MR# [id number] - Date: 02/18/2024 Reason For Consultation: The [...] Description Partial thickness Consult Recommendations: Not applicable WOC Nursing follow up: Appreciate the opportunity to consult on this patient, Wound Ostomy Continence Services will sign off at this time. Please place additional 'Wound Consult' if wanting further assessment for this patient. Staff to continue to follow skin injury bundle. Escalate concerns to WOCN through additional consult or to the provider when barriers are identified. WOCN available Thursday through Thursday on Yhat or [phone] Cristela Gleason CWOCN, 02/18/2024 2:04 PM * Isidoro Guerrero CWON - 02/09/2024 2:42 PM CDT Images from the original note were not included. Wound Ostomy Continence Nurse Consult Cathy Raymond - : 1965 - MR# [id number] - Date: 02/09/2024 Reason For Consultation: The patient is being seen in consultation at the request of rn relief charge for evaluation of ulceration to gluteal cleft. [...] identified. WOCN available Thursday through Thursday on Yhat or [phone] Isidoro Guerrero CWON, 02/09/2024 2:43 PM * [...] seat;tub / shower chair;hand held shower head;grab bars;computer numerical control grinder Prior Level of Function: ADLs/IADLs: Received assistance from family / friends;Received assistance from INTERNAL MEDICINE VETERINARY TECHNICIAN for hours per day / days per [...] to a TCU near her home in [place] when medically stable. (See box at the [...] Eval: 29 minutes Therapist: LILY Landaverde/Bethanie [facility]ager: [facility] Occupational Therapy Department * Rose Marie Early, [...] right femur, initial encounter for closed fracture ([facility]) PT Treatment Diagnosis: Difficulty in [...] riser, and son lift Services at home: INTERNAL MEDICINE VETERINARY TECHNICIAN services MWF, home PT / OT / [...] in near 90/90 hip/knee positioning (WFL for [facility] seating). Transfers & Bed Mobility: Supine to [...] reportedly Alycia with stand pivot transfers to [facility] (GLF during tx resulted in femur fx), has 24/7 assist from , INTERNAL MEDICINE VETERINARY TECHNICIAN services 3x/wk, and home PT / OT [...] viasara steady, up to chair as appropriate. FREIGHT CONDUCTOR Appropriate: No (needs mobility progressed) Participated in [...] set of blood cultures were taken at [facility] in which 2 of 2 bottles [...] the original note were not included. Data: [facility] nurse met with patient to assess pouch [...] over the next few days. Please page software engineer web applications resident with questions. Patient was seen with software engineer web applications staff, Dr. Roth PROCEDURE: Risks and benefits [...] States that she follows up with a certified prosthetist in [place] and has had extensive surgery of the [...] Kadi Roth DPM, 02/05/2024 8:53 AM * JungclCristela canseco CWOCN - 02/04/2024 3:36 PM CDT DAP: [facility] nursing attempted to see patient x 2 today, however patient was out of the room x2. Will re-attempt at a later date. Cristela Gleason CWOCN, 02/04/2024 3:36 PM * Mindy Swan APRN, MOLD CHECKER - 02/03/2024 3:00 PM CDTAssociated Order(s): CONSULT [...] with questions or concerns. Mindy Swan APRN, MOLD CHECKER, 02/03/2024 3:00 PM Palliative Medicine Available [facility] Advance Care Planning Primary Care: No primary [...] helps her at home along with a INTERNAL MEDICINE VETERINARY TECHNICIAN. States that she broke her other femur [...] their hobbies, activities and interests, spirituality or gnosticist, personal experience with end of life, and [...] specifically on review of CT scans from [facility] dated 07/08/2022 and [place] dated111/21/2020, it appears patient has had a chronically dilated sigmoid colon, possibly dating back [id number]. Also has known chronic constipation and neuropathy [...] c/b ascites MELD 3.0 16 Established at [facility] Gastroenterology, last seen 12/15/2013. Etiology felt to [...] cirrhosis. 09/20/2021 CT CAP with IV contrast ([place]): IMPRESSION: 1. Minimally more prominent left axillary [...] AND RADIOLOGY DATA: Lab results: Reviewed via [facility]. Radiology Results: Reviewed in Epic. Patient seen by and discussed with Surgery Chief Resident and Staff Physician. Nestor Miranda MD, 02/03/2024 3:47 AM Associated attestation - Moises Montana MD - 02/09/2024 3:34 PM CDT FACULTY NOTE I saw and evaluated the patient on the date of the tech writer's note. I discussed with the tech writer of the note and agree with their findings and plan documented in the tech writer's note from above. Any revisions by me [...] acholic cirrhosis, R TKA around 2017 in [place], [place],L femur fx s/p surgical fixation ~ 2019 at [place], idiopathic progressive neuropathy, hypothyroidism,chronic neuropathic pain, DMII [...] - disability Lives with in house in [place], [place] ALLERGIES: Allergies Allergen Reactions Amoxicillin-Pot Clavulanate [...] at midnight for possible fixation on . Gsielle Johansen MD, 02/03/2024 12:42 PM documented in this encounter OR Notes * OR Surgeon - Dayo Henning MD - 02/05/2024 4:06 PM CDT [facility] [address] [facility] OPERATIVE REPORT PATIENT: Cathy Raymond : 1965 DATE OF PROCEDURE: 02/05/24 SURGEON: Dayo Heninng MD - Primary USER EXPERIENCE DEVELOPER SURGEON: Serge Parker DO - Fellow [...] Implant Name Type Inv. Item Serial No. Integrated Circuit Ic Layout Designer Lot No. LRB No. Used Action FEMORAL NAIL RETROGRADE [id number] Krystle FEMORAL NAIL RETROGRADE [id number] [employer] [id number] Right 1 Implanted 5.0X60MM 2361-5060S Screw/[place] 5.0X60MM 2361-5060S [employer] [id number] Right 1 Implanted 5.0X70MM 2361-5070S Screw/[place] 5.0X70MM 2361-5070S [employer] [id number] Right 1 Implanted 5.0X75MM ADV 2361-5075S Screw/[place] 5.0X75MM ADV 2361-5075S [employer] [id number] Right 1 Implanted FREEHAND DRILL [id number] Drill bit/kiara FREEHAND DRILL [id number] [employer] [id number] Right1 Implanted 5.0X42.5MM 2360-5042S Screw/[place] 5.0X42.5MM 2360-5042S [employer] [id number] Right 1 Implanted INDICATIONS: Cathy Raymond is a 58 y.o. female who presented to [facility] with right leg pain after a [...] proximal thigh. This was performed using perfect nikolai technique. A stab incision was made over [...] primary nurse, Catarino. * Ileana Howell APRN, MOLD CHECKER - 02/02/2024 9:19 PM CDT Transfer of [...] Wt 98.8 kg (217 lb 13 oz) [id number] Upon assuming care, I reviewed the chart, results of studies performed during their course in the ED, re-examined the patient, and discussed their care and plan with my supervising attending. Distended abd > CT unable to r/o volvulus Medicine team paged re: CT a/p results, surgery consulted and paged ED Course as of 02/02/242133 Tue Feb 02, 20242115 Weak at home, [facility] fall, R femur fx, UTI, lots of [...] NEGATIVE Bili UA TRACE(!) Ketones TRACE(!) Specific [place] 1.024 Blood Ur LARGE(!) PH Urine 6.0 Protein Ur 30(!) Urobilinogen >=8(!) Nitrite Ur NEGATIVE Leuk Est SMALL(!) WBC Ur 6-10(!) RBC Ur >20(!) SQ EPITH 0-5 Bacteria UA PRESENT Urinalysis Performed at: [facility] Receiving CTX 2122 LFTs(!): Total Protein [...] in real time. Please contact me via [employer] staff message if you note any errors requiring clarification. * Natacha Mcadams RN - 02/02/2024 9:16 PM CDT Traction set to 20 pounds. * Natacha Mcadams RN - 02/02/2024 9:00 PM CDT Xray at bedside * Natacha Mcadams RN - 02/02/2024 8:41 PM CDT Patient transported to [facility] for sedation for krystle placement and traction. * Enedina Austin MD - 02/02/2024 6:08 PM CDT Plumbing Engineer of the Day (MOD) Triage/Communication Note Sign out received from Cooper in [facility] (team center/clinic). Requested unit: G3 (choose from: any medicine floor, specific medicine floor with rationale, CaRe, RTU, MICU). Patient status: INPT. (Obs v. Inpt) Cardiac telemetry needed? (specify if remote telemetry OK). Summary of verbal sign out given by ED/clinic BLOOD BANK COORDINATOR: Cirrhosis, right femur fracture 58yo hx of cirrhosis, transferred from [facility] for a femur fracture after a fall at home. Has 2 total knee replacement. Has displaced mid-shaft right femur fracture -- ortho has been consulted. Got ancef for right foot wound. Has UTI - getting ceftriaxone ED to do paracentesis. Enedina Austin MD, 02/02/2024 6:13 PM Staff Physician, [employer] [facility] Hospital Medicine Note is for communication only, [...] NEGATIVE Bili UA TRACE(!) Ketones TRACE(!) Specific [place] 1.024 Blood Ur LARGE(!) PH Urine 6.0 Protein Ur 30(!) Urobilinogen >=8(!) Nitrite Ur NEGATIVE Leuk Est SMALL(!) WBC Ur 6-10(!) RBC Ur >20(!) SQ EPITH 0-5 Bacteria UA PRESENT [place]inalysis [place] [facility] [place]ly concerning for [place]; will treat [...] 02/02/2024 3:17 PM CDT BIBA as a rigby transfer. EMS was called around 0945 for a stumble and fall. HX of ETOH with cirrohsis and ascites. Right mid-shaft with Morphine and dilaudid in [facility]. 4 mg morphine en route. Pain [...] Toe Head to Toe Assessment Shift Summary [id number] Pt A&O. Makes needs known. Denies pain stated she feels with movements. Offered pt repositioning but declined. Stated, I want to stay with pillows on both sides and I will call when I need to bechanged. TPN running at 60ml/hr. Call light within reach. VSS on RA. Allie Alexandra, RN, 02/29/2024 4:44 AM BP 91/55 (Cuff [...] loose (02/28/242243) Liquid Stool (mL): 700 mL (02/27/24542) Genitourinary [...] Arm 02/11/241999 -- 17 Fecal Management/Containment System 02/20/24 2012 -- 8 Rash 02/02/24 2347 groin 02/02/24 [...] 21 (PICC) Peripherally Inserted Central Catheter 5 Bol[place] 43 cm, 2 cm out Basilic 02/27/24 [...] Rectal cano in place Stool (unmeasured): 1 (02/28/24 1356) [...] 20 (PICC) Peripherally Inserted Central Catheter 5 [place] 43 cm, 2 cm out Basilic 02/27/24 [...] rate of 60ml/hr after 4 hours. Stacy Laughlin RN, 02/28/2024 2:25 PM Neurologic/Cognitive Within Defined [...] -- 7 Rash 02/02/24 2347 groin 02/02/24 234 -- 25 Wound 02/03/24 Pedal Anterior;Right 02/03/24 [...] 20 (PICC) Peripherally Inserted Central Catheter 5 [place] 43 cm, 2 cm out Basilic 02/27/24 [...] 20 (PICC) Peripherally Inserted Central Catheter 5 [place] 43 cm, 2 cm out Basilic 02/27/24 [...] 19 (PICC) Peripherally Inserted Central Catheter 5 [place] 43 cm, 2 cm out Basilic 02/27/24 1137 -- less than 1 Psychosocial Within Defined Limits * Nursing Assessment - Stacy Laughlin RN - 02/27/2024 2:43 PM CDT Nursing Assessment [...] 19 (PICC) Peripherally Inserted Central Catheter 5 Bol[place] 43 cm, 2 cm out Basilic 02/27/24 [...] Cross Cover - Sascha Cavazos PA-C - 02/27/2024 12:00 AM CDT Cross andrea was asked to order X-ray following PICC [...] complaints. Continuing to follow the POC. Denia Kign RN, 02/26/2024 6:42 PM Neurologic/Cognitive Within Defined [...] Limits * Nursing Assessment - Stacy Laughlin, RN - 02/26/2024 1:56 PM CDT Nursing Assessment Head to Toe Head to Toe Assessment Shift Summary Shift Summary Alert and oriented. Severely distended abdomen. Denies nausea/vomiting/abd pain. Acno intact draining yellow urine. Turned and repositioned. Some redness under abd fold, nystatin powder applied. Redness around sacrum/buttocks, barrier cream applied. Dressing to R foot changed. This tech writer noted this AM that pt has a Cano tube in rectum and attached to suction however there are no orders for suction or managing the tube. Reached out to primary team who instructed this tech writer to leave it attached to suction while they paged the surgery team for clarification. During yulia cares, this tech writer noted blood blisters on both sides of [...] against labia. 150mlliquid stool output. Stacy Laughlin, RN, 02/26/2024 3:43 PM Neurologic/Cognitive Within Defined Limits [...] and oriented 4X, c/o pain to abdomen 5/10 but request to be reposition. On room air, can make needs known verbally. Patient rectal tube is out, and patient inform tech writer she wants surgery to access the area. Internal Corrosion Specialist updated provider and other staff about patient distended abdomen, awaiting response. Internal Corrosion Specialist was informed by provider to reinstate rectal tube. Internal Corrosion Specialist asked for assistance, from charge nurse and [...] Fecal Management/Containment System 02/20/242011 -- 4 Rash 02/02/242346 groin 04/30/24 2347 -- 22 Wound 02/03/24 Pedal Anterior;Right [...] Nursing Assessment - Fede Chicas RN - 02/25/2024 2:17 PM CDT Nursing Assessment Head to Toe Head to Toe Assessment Shift Summary Pt Aox4. Able to make needs known. C/o pain RLE prn Oxy utilized. Pt had Xray of abdomen. Potassiumreplacement done. Incontinent to B/B. Rectal tube came out tech writer tried to replace it but pt declined [...] 350 mL) 02/07/24 2350 -- 17 Psychosocial Assessment Within Defined Limits except for: Psychosocial Assessment: Observed Patient Behaviors: Pleasant Verbalized Emotional State: Acceptance * Utilization Management - Annalise Guo RN - 02/25/2024 11:58 AM CDT Comorbidities not listed within criteria correlating to medical condition and treatments. 02/24-Continues to struggle with medical comorbidities. Will ultimately need ANA. Short list not completely inclusive: * acute on chronic severe chronic bowel distension. * Vik-Hwang B cirrhosis * Diabetic Neuropathic Ulceration - fulll thickness * Urinary retention - straight cath Not sent to [facility] for secondary review. * Nursing Assessment [...] (unmeasured): 1 (02/20/241999) Stool Amount: small (02/24/24 174) Stool Color: light brown (02/24/24 174) Stool Consistency: creamy (02/24/24 174) Liquid Stool (mL): 55 mL (02/24/24 1427) [...] rectal tube and suction in placed and tech writer and HCA reposition patient to a comfortable position. Patient is on room air, lower extremities elevated on pillows. Denies SOB, nausea and vomiting, and requested for snacks and beverages given. Cano in tactand patent. Internal Corrosion Specialist will continue to monitor. Within Defined Limits [...] (02/24/241739) Liquid Stool (mL): 55 mL (02/24/24 1427) [...] Toe Head to Toe Assessment Shift Summary [id number] Alert and oriented x 4, uses call [...] Temp: 36.6 ??C (97.9 ??F) Nilay Darden, RN, 02/24/2024 3:00 PM Neurologic/Cognitive Within Defined Limits [...] Defined Limits * Utilization Management - Nicole Frobes MD - 02/24/2024 12:30 PM CDT 58F [...] Amount: large (02/23/24611) Stool Color: light brown (02/23/242199) Stool Consistency: liquid (02/23/242199) Liquid Stool (mL): 400 mL (02/23/242199) Genitourinary Assessment Within Defined Limits except for: [...] elastic straps and attached to cano bag. Internal Corrosion Specialist note significant amount of gas in cano [...] 0600) Liquid Stool (mL): 150 mL (02/22/24 06) Genitourinary Assessment Within Defined Limits except for: [...] brown (02/22/24 0600) Stool Consistency: liquid (02/22/24 06) Liquid Stool (mL): 150 mL (02/22/24 06) Genitourinary Assessment Within Defined Limits except for: [...] place, draining brown loose stool, green tube [id number] at 45ml , Flushed 30ml in purple [...] Stool (unmeasured): 1 (02/20/241999) Stool Amount: small (02/21/241399) Stool Color: brown (02/21/241399) Stool Consistency: loose (02/21/241399) Liquid Stool (mL): 50 mL (02/21/24 1400) [...] Arm 02/11/241999 -- 10 Fecal Management/Containment System 02/20/24 2012 -- 1 Rash 02/02/24 2347 groin 02/02/24 [...] Toe Head to Toe Assessment Shift Summary 5595-1366 Alert and oriented x4. Has pain to [...] void volume consistently greater than 350 mL) 02/07/240 -- 13 Psychosocial Assessment Within Defined Limits except for: Psychosocial Assessment: Observed Patient Behaviors: Frustrated * Cross Cover - Nikos Ferrer MD - 02/20/2024 9:40 PM CDT NPO status ordered per GI recs. Maintenance LR ordered. Nikos Ferrer MD, 02/20/2024 9:41 PM * Nursing Assessment - Navid-Thalia Machado RN - 02/20/2024 8:40 PM CDT Nursing [...] the patient's presentation is most consistent with Mer[place] and recommend urgent GI consultation for decompression. [...] Stool Color: brown (02/20/24633) Stool Consistency: loose (02/20/24633) Genitourinary Genitourinary Musculoskeletal Musculoskeletal Integumentary Integumentary Patient [...] small loose BM this shift. Turnedand repositioned Hector Carrillo RN, 02/20/2024 6:57 AM . Neurologic/Cognitive [...] and guarding Comments: Ascites Stool (unmeasured): 1 (02/18/241958) Stool Amount: small (02/19/24 1600) Stool Color: [...] Knee Anterior;Right 02/05/24 1331 Knee 13 Wound 05/03/24 Incision Leg Distal;Upper;Right 02/05/24 1443 Leg 13 [...] to Toe Assessment Shift Summary Shift Summary [id number] Received the food she ordered for supper [...] to Toe Assessment Shift Summary Shift Summary [id number] Pt is AO x4, pleasant, liable. Eats [...] and labile * Nursing Assessment - Nilay Darden RN - 02/17/2024 1:10 PM CDT Nursing Assessment Head to Toe Head to Toe Assessment Shift Summary [id number] Alert and oriented, able to use call light to report needs, vs wnl on ra, reported 7/10 aching painto LLE, oxycodone and tylenol given for pain relief, cms intact, wiggle toes, LLE elevated on pillows, aced wrap dressing c/d/I, pt teary in request to have anything to eat, this tech writer educated pt that she is on regular/ 2 gm sodium diet, pt agreed to eat the meal per order, T&R, urinary catheter draining yellow clear urine, catheter cares completed, distended abd, denied pain to abd, no acute changes, intentional rounding, will continue to monitor. Filed Vitals: 02/17/24 0928 BP: 92/50 Pulse: 79 Resp: 18 Internal Corrosion Specialist offered to do dressing change, pt was [...] Arm 02/11/241999 -- 4 Rash 02/02/242346 groin 02/02/247 -- 13 Wound 02/03/24 Pretibial Left 02/03/24 [...] Toe Head to Toe Assessment Shift Summary 2672-4142 No acute events overnight. Q2H repositioning; patient intermittently refuses Q2H. Chronic cano in place 2/2 urinary retention. Many allergies listed. A&O. H2H precautions. Bed alarm active. CMS intact. Treating redness to sacral area/buttocks with barrier cream. Redness to abdominal folds being treated with nystatin and interdry. Pain 10 reported ~0200 with Q4H PRN oxycodone administered; [...] 02/11/241999 -- 4 Rash 02/02/24 2347 groin 02/02/247 -- 13 Wound 02/03/24 Pretibial Left 02/03/24 [...] 02/16/2024 3:54 AM * Nursing Assessment - Stay, GEOFF Davis - 02/15/2024 3:38 PM CDT Nursing Assessment [...] brown (02/14/24 0220) Stool Consistency: liquid;loose (02/14/24 022) Genitourinary Assessment [...] known. Paged tx team upon return from [facility] xray for diet order. Neurologic/Cognitive Within [...] RN - 02/15/2024 12:14 AM CDT Summary: [id number] Nursing Assessment Head to Toe Head to [...] (unmeasured): 1 (02/13/24 0430) Stool Amount: moderate (02/14/24219) Stool Color: light brown (02/14/24219) Stool Consistency: [...] 02/11/241999 -- 2 Rash 02/02/24 2347 groin 02/02/24 [...] Toe Head to Toe Assessment Shift Summary 2530-7374 No acute changes.Pt is alert and oriented [...] the ribs/flank ,R leg and knee rating 06-10,prn oxycodone administered,provided Irma trena ,water and ice chips perrequest. Neurologic/Cognitive Within Defined Limits HEENT Within Defined Limits Cardiac Within Defined Limits Respiratory Within defined limits Neurovascular Assessment Within Defined Limits except for: Neurovascular RLE Sensation: Sensation decreased Comments: Neuropathy per patient. Gastrointestinal Assessment Within Defined Limits except for: Abdominal appearance: Distended Stool (unmeasured): 1 (02/13/24 043) Stool Amount: moderate (02/14/24219) Stool Color: light brown (02/14/24219) Stool Consistency: [...] 02/11/241999 -- 2 Rash 02/02/24 2347 groin 02/02/24 [...] Within Defined Limits * Nursing Assessment - Issue-Thu French RN - 02/13/2024 12:38 AM CDT Summary: [id number] Nursing Assessment Head to Toe Head to Toe Assessment Shift Summary Pt is A&OX4. BP trending on low end (94/61 at 0024). Pt c/o pain / to RLE and this tech writer gave prn oxycodone and repositioned for comfort. [...] Anterior;Right Upper Arm 02/11/241999 -- 1 Rash 02/02/242346 groin 02/02/242346 -- 10 Wound 02/03/24 Pretibial Left 02/03/24 [...] Limits * Nursing Assessment - Rozina Lainez, RN - 02/12/2024 4:41 PM CDT Nursing Assessment Head to Toe Head to Toe Assessment Shift Summary Pt c/o pain to RLE, turned to sides. BM x2, loose/soft. Sleeping between cares at times. Toleraitngclears without issue. Pleasant. Abd remains distended. Buttock red, barrier cream applied. Medicated with tylenol and oxy. Controlled. Rozina Lainez, RN, 02/12/2024 8:45 PM Neurologic/Cognitive Within Defined [...] between thigh for rash and moistures prevention. Cano patent and in place. Bowel incontinent, 1 large loose BM this shift, suppository held, notified. Able to use call lights property. Will continue to follow POC. Filed Vitals: 02/12/24 0751 BP: 94/67 Pulse: (!) 126 Resp: 16 Temp: 35.1 ??C (95.2 ??F) Peggy Kirk RN, 02/12/2024 11:33 AM Neurologic/Cognitive Within Defined [...] Head to Toe Assessment Shift Summary Shift [id number] Patient returned to room from procedure at [...] large) (02/11/24 2300) Stool Color: light brown (02/11/242299) Stool Consistency: watery (02/11/242299) Genitourinary Assessment Within Defined Limits except for: [...] Tim Zapata MD General Surgery, PGY-2 Pager: [phone] or TelemedWhodini * Cross Cover - Khloe Reyes PA-C - 02/11/2024 7:20 PM CDT Paged by Epifanio MUCKER OPERATOR nurse regarding NG tube. On chart review appears CT ordered this afternoon shows increased rectosigmoid colonic distention with increased distal fecal contents. 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 NG was ordered by day team for decompression; however, MUCKER OPERATOR RN does not feel appropriate for placement given cirrhosis and bleeding risk (reviewed lack of varices on EGD 09/26 and labs, but still feels too high risk). Epifanio notes this will need to be placed by IR if surgery unable to place overnight. MUCKER OPERATOR and bedside RN asking for clarification on [...] PA-C, 02/11/2024 7:38 PM I spoke with vice president of procurement who notes they could place NG tube [...] distended. Order for NGT this evening however MUCKER OPERATOR nurse would not place because patient had [...] State: Sadness * Nursing Assessment - Natacha Bang, RN - 02/11/2024 10:58 AM CDT Nursing Assessment Head to Toe Head to Toe Assessment Shift Summary Day Nursing Note [id number]: Alert and oriented. Tearful this AM re: [...] was not working. Waiting for placement. Natacha Bang, RN, 02/11/2024 11:01 AM Neurologic/Cognitive Within Defined [...] Defined Limits * Nursing Assessment - Gay Menendez RN - 02/11/2024 5:34 AM CDT Nursing [...] Comments: Hx of ascites Stool (unmeasured): 1 (02/06/24 1800) Stool Amount: small (02/09/242013) Stool Color: black [...] Toe Assessment Shift Summary Day Nursing Note [id number]: Alert and oriented. Reported 05/14 RLE pain, [...] IV 02/02/24 20 gauge Anterior;Right Forearm 02/02/24 0479 -- 7 Rash 02/02/24 2347 groin 02/02/24 [...] Nursing Assessment - Rozina Lainez, GEOFF - 02/09/2024 10:40 AM CDT Nursing Assessment [...] per MAR pain to RLE, abd. Rozina Lainez, RN, 02/09/2024 1:12 PM Neurologic/Cognitive Within Defined [...] 3:32 PM * Nursing Assessment - Gabrielle Manning RN - 02/08/2024 10:00 AM CDT Nursing [...] Toe Head to Toe Assessment Shift Summary [id number] Pt A&Ox4. Endorsed pain to to RLE. [...] Solitario Watson * Nursing Assessment - Humphrey Nagel, RN - 02/07/2024 4:23 PM CDT Nursing Assessment Head to Toe Head to Toe Assessment Shift Summary Patient is alert and oriented X 4. Reports pain to surgical leg and given oxycodone 10 mg X 2 and dilaudid IV with good effect per patient report. Patient abdomen very extended and hard. Internal Corrosion Specialist notedno urine output and straight cath for 300 ml at 1400. Patient reports being incontinent at baselineand was incontinent of stool one time this shift. Internal Corrosion Specialist placed external catheter on patient at 1700 after diuretic administration. Patient very anxious when repositioning . Wound vac failed and tech writer notified ortho provider. Provider reports that wound vac is just over pin site and can go withoutit if unable to get a new one tonight. Patients groin is raw and red and tech writer provided nystatin and lotion to area. Wound care done per order by tech writer to coccyx. Patient does not tolerate [...] Toe Head to Toe Assessment Shift Summary [id number] Pt A&Ox4. Endorsed pain to to RLE. [...] of pain. [facility] skin [...] 2019 -- 3 Rash 02/02/24 2347 groin 02/02/242346 -- 3 Rash 02/02/24 2348 02/02/24 2348 [...] Toe Head to Toe Assessment Shift Summary 7101-1583 Pt Sleeping upon shift change. Endorsed pain to to RLE. PRN given per dec. Pt sleeping on reassessment. POD #0. Numbness to RLE. Other CMS intact. Leg elevated and ICE pack provided. Paracentesis site draining small output. Cano in place draining well. Pt drinking fluids well. Pt informed tech writer she will call when she needs [...] 02/02/24 2347 -- 2 Rash 02/02/24 2348 02/02/248 -- 2 Wound 02/03/24 Pretibial Left 02/03/24 [...] Jorge MD - 02/05/2024 1:31 PM CDT [facility] Immediate Post Operative Note Note written: Day [...] Implant Name Type Inv. Item Serial No. Integrated Circuit Ic Layout Designer Lot No. LRB No. Used Action [employer] [id number] Krystle [employer] [id number] [employer] [id number] Right 1 Implanted 5.0X60MM 2361-5060S Screw/[place] 5.0X60MM 2361-5060S [employer] [id number] Right 1 Implanted 5.0X70MM 2361-5070S Screw/[place] 5.0X70MM 2361-5070S [employer] [id number] Right 1 Implanted 5.0X75MM ADV 2361-5075S Screw/[place] 5.0X75MM ADV 2361-5075S [employer] [id number] Right 1 Implanted FREEHAND DRILL [id number] Drill bit/kiara [employer]HAND DRILL [id number] [employer] [id number] Right1 Implanted 5.0X42.5MM 2360-5042S Screw/[place] 5.0X42.5MM 2360-5042S [employer] [id number] Right 1 Implanted Intraoperative Findings: see op [...] check Vignesh Jorge MD Orthopaedic Surgery PGY-3 [facility] [place] * Nursing Assessment [...] Drain on R abd Stool Amount: small (02/05/24199) Stool Color: abhi colored (02/05/24199) Stool Consistency: liquid (02/05/24199) Genitourinary Assessment Within [...] Within Defined Limits * Nursing Assessment - Issue-hTu French RN - 02/05/2024 12:19 AM CDT Summary: [id number] Nursing Assessment Head to Toe Head to Toe Assessment Shift Summary Pt is A&OX4 with VSS on RA. Pt has very distended and taut stomach, paracentesis site drained 625 mL yellow fluid from ostomy bag. NPO status maintained. Cano catheter in place draining mili concentrated urine. Pt reports neuropathy at baseline and CMS is intact to RLE. This tech writer attempted to give CHG bath and [...] RN - 02/04/2024 10:17 PM CDT Summary: [id number] Nursing Assessment Head to Toe Head to [...] abdominal/groin folds. Prn oxycodone given for pain 10 to RLE. Will continue to monitor and [...] -- 2 Rash 02/02/247 groin 02/02/242346 -- 1 Rash 02/02/24 2348 02/02/24 234 -- 1 Wound 02/03/24 Pretibial Left 02/03/24 [...] 3/4 in length Right Antecubital 02/02/246 -- 1 Rash 02/02/24 2347 groin 02/02/24 [...] to tolerate to turn, foam dressing applied, notified, consult to wound nurse sent. Patient [...] * Interdisciplinary Note - Carter Maurer APRN, MOLD CHECKER - 02/03/2024 12:38 PM CDT SURGERY PROVIDER [...] Carter Maurer APRN, CNP, 02/03/2024 12:38 PM [facility] Department of Surgery Pager: via telemediq * [...] right femur, initial encounter for closed fracture ([facility]) Humphrey Rose MD, 02/02/2024 4:55 PM documented in this encounter Plan of Treatment Upcoming Encounters Date Type Department Care Team (Late st Contact Info) Description 03/03/2024 10:00 AM CDT [facility] [address] [place] [id number] Lia Mcclellan PA-C [phone] [address] Scheduled Discharge Disposition: Discharged to home or self care (routine discharge) 03/17/2024 9:45 AM CDT [facility]ointment [facility] [address] [place] [address] Scheduled Discharge Disposition: Discharged to home or self care (routine discharge) 03/17/2024 10:00 AM CDT [facility] [address] [place] [address] Dayo Henning MD [phone] [address] Scheduled Discharge Disposition: Discharged to home or self care (routine discharge) Pending Results Name Type Priority Associated Diagnoses Date /Time PREALBUMIN Lab Routine 02/27/2024 4:2 2 PM CDT Scheduled Orders Name Type Priority Associated Diagnoses Orde r Schedule XR FEMUR RIGHT AP + LAT* Imaging Routine Other fracture of right femur, initial encounter for closed fracture ([facility]) Expected: 03/19/2024 (Approximate), Expires: 04/18/2025 PANEL BASIC [...] PANEL HEPATIC FUNCTION Lab Routine ev jose juan Thursday and until discontinued starting 02/29/2024 PREALBUMIN [...] CDT XR ABDOMEN 1 VIEW* Routine 02/26/2024 10 :16 AM CDT PC LAB CBC W/DIFF & PLT Routine 02/26/2024 7:17 AM CDT PHOSPHORUS Routine 02/26/2024 7:17 AM CDT PANEL BASIC METABOLIC (BMP) Routine 02/26/2024 7:17 AM CDT MAGNESIUM Routine 02/26/2024 7:17 AM CDT POC GLUCOSE Routine 02/26/2024 6:23 AM CDT POC GLUCOSE Routine 02/26/2024 12:01 AM CDT POC GLUCOSE Routine 02/25/2024 9:33 PM CDT XR ABDOMEN 1 VIEW* Routine 02/25/2024 10 :45 AM CDT PC LAB CBC W/DIFF & [...] CDT XR ABDOMEN 1 VIEW* Routine 02/15/2024 11 :38 AM CDT POC GLUCOSE Routine 02/15/2024 10:46 AM CDT FLEXIBLE SIGMOIDOSCOPY Routine 02/15/2024 9:55 AM CDT [...] CDT XR ABDOMEN 1 VIEW* Routine 02/14/2024 10 :42 AM CDT PROTHROMBIN (PT) & INR Routine [...] CDT XR ABDOMEN 1 VIEW* Routine 02/12/2024 10 :03 AM CDT PROTHROMBIN (PT) & INR Routine [...] POC GLUCOSE Routine 02/11/2024 10:43 PM CDT GI COLON DIAGNOSTIC Emergent (DEMETRI) 02/11/2024 9 :54 PM CDT Raya syndrome COLONOSCOPY-DIAGNOSTI C Routine 02/11/2024 9:24 PM CDT PC LACTATE (LACTIC ACID) Timed 02/11/2024 8:51 PM CDT PC LACTATE (LACTIC ACID) STAT 02/11/2024 7:[address] ABDOMEN/PELVIS W/IV CON Routine 02/11/2024 2:22 PM CDT XR ABDOMEN 1 VIEW* Routine 02/11/2024 10 :07 AM CDT PROTHROMBIN (PT) & INR Routine [...] Routine 02/04/2024 1 0:44 PM CDT PC CULTURE,BACTERIAL,DEF INITIVE,AEROBIC ANY SOURCE Routine 02/04/2024 10:44 PM CDT PC CULTURE SPECIMEN, ANAEROBIC Routine 02/04/2024 10:44 PM CDT POC GLUCOSE Routine 02/04/2024 9:50 PM CDT PC CULTURE,BACTERIAL,DEF INATIVE,AEROBIC;BLOOD Timed 02/04/2024 6:44 PM CDT PC CULTURE,BACTERIAL,DEF INATIVE,AEROBIC;BLOOD Routine 02/04/2024 6:44 PM CDT POTASSIUM Timed [...] CBC/PLT Routine 02/04/2024 6:40 AM CDT PC CULTURE,BACTERIAL,DEF INATIVE,AEROBIC;BLOOD Timed 02/03/2024 12:13 PM CDT PC CULTURE,BACTERIAL,DEF INATIVE,AEROBIC;BLOOD Timed 02/03/2024 12:06 PM CDT PC LAB [...] CT. STAT 02/02/2024 7:51 PM CDT PC CULTURE,BACTERIAL,DEF INITIVE,AEROBIC ANY SOURCE STAT 02/02/2024 7:51 PM CDT [...] POC Glucose 105(H) 70 - 100 mg/dL [facility] [place] POINT OF CARE Blood 02/29/2024 6:45 AM CDT Humphrey Rose MD LABORATORY [facility] POINT OF CARE [address] [place] [address], [place] * POC GLUCOSE (02/28/2024 9:12 PM CDT) POC Glucose 94 70 - 100 mg/dL [facility] - POINT OF CARE Blood 02/28/2024 9:12 PM CDT Humphrey Rose MD LABORATORY [facility] POINT OF CARE [address] [place] [address], [place] * POC GLUCOSE (02/28/2024 4:38 PM CDT) POC Glucose 96 70 - 100 mg/dL [facility] - POINT OF CARE Blood 02/28/2024 4:38 PM CDT Humphrey Rose MD LABORATORY [facility] POINT OF [facility] [address] [place] [address], [place] * (ABNORMAL) POC GLUCOSE (02/28/2024 11:38 AM CDT) POC Glucose 101(H) 70 - 100 mg/dL [facility] - POINT OF CARE Blood 02/28/2024 11:3 8 AM CDT Humphrey Rose MD LABORATORY [facility] - POINT OF CARE [address] [place] [address], [place] * POC GLUCOSE (02/28/2024 6:30 AM CDT) POC Glucose 91 70 - 100 mg/dL [facility] - POINT OF CARE Blood 02/28/2024 6:30 AM CDT Humphrey Rose MD LABORATORY [facility] - POINT OF CARE [address] [place] [address], * PHOSPHORUS (02/28/2024 6:00 AM CDT) Phosphorus 3.7 2.5 - 4.5 mg/dL [facility] Blood 02/28/2024 6:00 AM CDT 02/28/2024 6:12 AM CDT Nino Ramírez MD LABORATORY Performing Organization Address City/[facility]/[place] [address] * MAGNESIUM (02/28/2024 6:00 AM CDT) Magnesium 2.0 1.6 - 2.6 mg/dL [facility] Blood 02/28/2024 6:00 AM CDT 02/28/2024 6:12 AM CDT Nino Ramírez MD LABORATORY Performing Organization Address [facility] [place] [address] * CALCIUM,IONIZED (02/28/2024 6:00 AM CDT) PH 7.38 7.32 - 7.42 [facility] ICA, Actual 4.57 4.40 - 5.20 mg/dL [facility] ICA, pH Corrected 4.52 4.40 - 5.20 mg/dL [facility] Blood 02/28/2024 6:00 AM CDT 02/28/2024 6:15 AM CDT Narrative [facility] - 02/28/2024 6:35 AM CDT Send specimen on ice! Nino Ramírez MD LABORATORY Performing Organization Address City/[facility]/ZIP Co de Phone Number [address] [address] * (ABNORMAL) PANEL BASIC METABOLIC (BMP) (02/28/2024 6:00 AM CDT) [facility] Sodium 133(L) 135 - 148 mmol/L [facility] Potassium 3.5 3.5 - 5.3 mmol/L [facility] Chloride 102 92 - 108 mmol/L [facility] AnGap 7(L) 8 - 16 mmol/L [facility] CO2 24 22 - 30 mmol/L [facility] Glucose 87 70 - 100 mg/dL [facility] BUN 9 6 - 20 mg/dL [facility] Creatinine 0.46(L) 0.50 - 1.00 mg/dL [facility] Calcium 8.0(L) 8.6 - 10.0 mg/dL [facility] eGFR (2020 CKD-EPI) 110 >=60 ml/min/1.7 3m2 [facility] Comment: The estimated glomerular filtration rate (eGFR) was calculated using the CKD-EPI 2020 creatinine equation, which does not include race as a factor. This equation is validated in individuals 18 years of age and older, and eGFR is normalized to a body surface area of 1.73m^2. Blood 02/28/2024 6:00 AM CDT 02/28/2024 6:12 AM CDT Nino Ramírez MD LABORATORY [facility] [address] [address] * (ABNORMAL) POC GLUCOSE (02/27/2024 9:18 PM CDT) [facility] POC Glucose 107(H) 70 - 100 mg/dL [facility] - POINT OF CARE Blood 02/27/2024 9:18 PM CDT Humphrey Rose MD LABORATORY [facility] - POINT OF CARE [address] [place] [phone], * (ABNORMAL) POC GLUCOSE (02/27/2024 4:32 PM CDT) [facility] POC Glucose 105(H) 70 - 100 mg/dL [facility] - POINT OF CARE Blood 02/27/2024 4:32 PM CDT Humphrey Rose MD LABORATORY Performing Organization Address [facility] Co de Phone Number [facility] POINT OF CARE [address] [place] [address], [place] * XR PICC LINE PLACEMENT CHECK RIGHT (02/27/2024 1:15 PM CDT) Anatomical Region Laterality Modality Chest Computed Radiogr aphy 02/27/2024 1:49 PM CDT Impressions 02/27/2024 1:50 PM CDT Impression: Right arm PICC projects in good position. Reading Radiologist: Lukas Nava 02/27/2024 1:50 PM CDT Indication: New PICC [...] POC Glucose 81 70 - 100 mg/dL [facility] - POINT OF CARE Blood 02/27/2024 11:5 5 AM CDT Humphrey Rose MD LABORATORY Performing Organization Address [facility]/ZIP Co de Phone Number [facility] - POINT OF CARE [address] [place] [address], [place] * PICC Line (02/27/2024 11:40 AM CDT) Narrative Patricia Dumont RN - 02/27/2024 11:40 AM CDT Patricia Dumont RN ? 02/27/2024 ??2:00 PM PICC Line Date/Time: 02/27/2024 11:40 AM Performed by: Patricia Dumont RN Authorized by: Nino Ramírez MD ?? [place] Protocol: ??Verbal consent obtained?: Yes ?Written consent [...] total length, 2 cm out secured with [id number]; AC to IS: 5 cm; Circumference 10 cm above AC: 24 cm) ??Catheter ordnance keeper: ??Bard ??Lot Number: ??[id number] ??Pre-procedure: landmarks identified ?Ultrasound guidance: Yes ?Number [...] 7:16 AM CDT) Triglyceride 138 <=150 mg/dL [facility] Comment: Interpretive Data <150 Normal 150-199 Borderline high 200-499 High >=500 Very high Blood 02/27/2024 7:16 AM CDT 02/27/2024 7:35 AM CDT Ernestine Toribio MD LABORATORY Performing Organization Address City/[facility] Co de Phone Number [facility] [place] [phone] * PHOSPHORUS (02/27/2024 7:16 AM CDT) Phosphorus 3.2 2.5 - 4.5 mg/dL [facility] Blood 02/27/2024 7:16 AM CDT 02/27/2024 7:35 AM CDT Ernestine Toribio MD LABORATORY Performing Organization Address City/[facility] Co de Phone Number [facility] [place] [phone] * MAGNESIUM (02/27/2024 7:16 AM CDT) Magnesium 2.2 1.6 - 2.6 mg/dL [facility] Blood 02/27/2024 7:16 AM CDT 02/27/2024 7:35 AM CDT Ernestine Toribio MD LABORATORY Performing Organization Address [facility] Co de Phone Number [facility] [address] [address] * (ABNORMAL) PANEL BASIC METABOLIC (BMP) (02/27/2024 7:16 AM CDT) Sodium 132(L) 135 - 148 mmol/L [facility] Potassium 3.6 3.5 - 5.3 mmol/L [facility] Chloride 101 92 - 108 mmol/L [facility] CO2 23 22 - 30 mmol/L [facility] AnGap 8 8 - 16 mmol/L [facility] Glucose 81 70 - 100 mg/dL [facility] BUN 9 6 - 20 mg/dL [facility] Creatinine 0.52 0.50 - 1.00 mg/dL [facility] Calcium 7.8(L) 8.6 - 10.0 mg/dL [facility] eGFR (2020 CKD-EPI) 107 >=60 ml/min/1.7 3m2 [facility] Comment: The estimated glomerular filtration [...] Ernestine Toribio MD LABORATORY Performing Organization Address [facility] Co de Phone Number [facility] [address] [address] * (ABNORMAL) CBC WITH PLTS/AUTO DIFF (02/27/2024 7:16 AM CDT) WBC 3.37(L) 4.00 - 10.00 k/cmm [facility] RBC 3.03(L) 3.90 - 5.20 m/cmm [facility] Hgb 9.1(L) 11.5 - 15.7 g/dL [facility] Hematocrit 29.5(L) 34.0 - 45.0 % [facility] MCV 97.4 80.0 - 100.0 fL [facility] MCH 30.0 25.0 - 32.0 pg [facility] MCHC 30.8(L) 31.0 - 36.0 g/dL [facility] RDW 14.4 11.5 - 14.5 % [facility] Plt 125(L) 150 - 400 k/cmm [facility] MPV 9.3 6.5 - 12.5 fL [facility] Automated Abs Neutrophil 1.31(L) 1.70 - 6.50 k/cmm [facility] Comment:Preliminary ANC, Fin al Result to Follow Abs Immature Granulocyte 0.01 0.00 - 0.09 k/cmm [facility] Comment:The Immature Granulo cyte Absolute count contains metamyelocytes and myelocytes. Abs Neutrophil 1.31(L) 1.70 - 6.50 k/cmm [facility] Abs Lymphocyte 1.63 0.80 - 4.00 k/cmm [facility] Abs Monocyte 0.32 0.20 - 1.00 k/cmm [facility] Abs Eosinophil 0.09 0.00 - 0.60 k/cmm [facility] Abs Basophil 0.01 0.00 - 0.20 k/cmm [facility] Blood 02/27/2024 7:16 AM CDT 02/27/2024 7:35 AM CDT Ernestine Toribio MD LABORATORY Performing Organization Address City/[facility] Co de Phone Number [facility] [place] [address] * POC GLUCOSE (02/27/2024 5:56 AM CDT) POC Glucose 84 70 - 100 mg/dL [facility] - POINT OF CARE Blood 02/27/2024 5:56 AM CDT Humphrey Rose MD LABORATORY [facility] - POINT OF CARE [address] [place] [address] * POC GLUCOSE (02/26/2024 11:54 PM CDT) POC Glucose 93 70 - 100 mg/dL [facility] - POINT OF CARE Blood 02/26/2024 11:5 4 PM CDT Humphrey Rose MD LABORATORY [facility] - POINT OF CARE [address] [place] [address], [place] * (ABNORMAL) POC GLUCOSE (02/26/2024 6:16 PM CDT) POC Glucose 128(H) 70 - 100 mg/dL [facility] POINT OF CARE Blood 02/26/2024 6:16 PM CDT Humphrey Rose MD LABORATORY Performing Organization Address [facility] Co de Phone Number [address] [address], [place] * POTASSIUM (02/26/2024 4:52 PM CDT) Potassium 4.2 3.5 - 5.3 mmol/L [facility] Blood 02/26/2024 4:52 PM CDT 02/26/2024 5:19 PM CDT Ernestine Toribio MD LABORATORY Performing Organization Address City/[facility] Co de Phone Number [facility] [address] [place] [phone] * POC GLUCOSE (02/26/2024 11:58 AM CDT) POC Glucose 77 70 - 100 mg/dL [facility] POINT OF CARE Blood 02/26/2024 11:5 8 AM CDT Humphrey Rose MD LABORATORY Performing Organization Address City/[facility]/ZIP Co de Phone Number [facility] POINT OF CARE [address] [place] [address], [place] * XR ABDOMEN 1 VIEW* (02/26/2024 [...] Ernestine Toribio MD RAD XRAY * (ABNORMAL) CBC WITH PLTS/AUTO DIFF (02/26/2024 7:17 AM CDT) WBC 3.06(L) 4.00 - 10.00 k/cmm [facility] RBC 3.05(L) 3.90 - 5.20 m/cmm [facility] Hgb 9.2(L) 11.5 - 15.7 g/dL [facility] Hematocrit 29.0(L) 34.0 - 45.0 % [facility] MCV 95.1 80.0 - 100.0 fL [facility] MCH 30.2 25.0 - 32.0 pg [facility] MCHC 31.7 31.0 - 36.0 g/dL [facility] RDW 14.8(H) 11.5 - 14.5 % [facility] Plt 144(L) 150 - 400 k/cmm [facility] MPV 9.8 6.5 - 12.5 fL [facility] Automated Abs Neutrophil 1.42(L) 1.70 - 6.50 k/cmm [facility] Comment:Preliminary ANC, Fin al Result to Follow Abs Immature Granulocyte 0.01 0.00 - 0.09 k/cmm [facility] Comment:The Immature Granulo cyte Absolute count contains metamyelocytes and myelocytes. Abs Neutrophil 1.42(L) 1.70 - 6.50 k/cmm [facility] Abs Lymphocyte 1.26 0.80 - 4.00 k/cmm [facility] Abs Monocyte 0.29 0.20 - 1.00 k/cmm [facility] Abs Eosinophil 0.06 0.00 - 0.60 k/cmm [facility] Abs Basophil 0.02 0.00 - 0.20 k/cmm [facility] Blood 02/26/2024 7:17 AM CDT 02/26/2024 7:53 AM CDT Ernestine Toribio MD LABORATORY Performing Organization Address City/[facility] Co de Phone Number [facility] [address] [address] * PHOSPHORUS (02/26/2024 7:17 AM CDT) Phosphorus 3.4 2.5 - 4.5 mg/dL [facility] Blood 02/26/2024 7:17 AM CDT 02/26/2024 7:54 AM CDT Ernestine Toribio MD LABORATORY Performing Organization Address [facility] Co de Phone Number [facility] [address] [address] * MAGNESIUM (02/26/2024 7:17 AM CDT) Magnesium 2.2 1.6 - 2.6 mg/dL [facility] Blood 02/26/2024 7:17 AM CDT 02/26/2024 7:54 AM CDT Ernestine Toribio MD LABORATORY Performing Organization Address [facility] Co de Phone Number [facility] [address] [address] * (ABNORMAL) PANEL BASIC METABOLIC (BMP) (02/26/2024 7:17 AM CDT) Sodium 132(L) 135 - 148 mmol/L [facility] Potassium 3.2(L) 3.5 - 5.3 mmol/L [facility] Chloride 99 92 - 108 mmol/L [facility] CO2 26 22 - 30 mmol/L [facility] AnGap 7(L) 8 - 16 mmol/L [facility] Glucose 80 70 - 100 mg/dL [facility] BUN 9 6 - 20 mg/dL [facility] Creatinine 0.49(L) 0.50 - 1.00 mg/dL [facility] Calcium 7.8(L) 8.6 - 10.0 mg/dL [facility] eGFR (2020 CKD-EPI) 108 >=60 ml/min/1.7 3m2 [facility] Comment: The estimated glomerular filtration rate (eGFR) was calculated using the CKD-EPI 2020 creatinine equation, which does not include race as a factor. This equation is validated in individuals 18 years of age and older, and eGFR is normalized to a body surface area of 1.73m^2. Blood 02/26/2024 7:17 AM CDT 02/26/2024 7:54 AM CDT Ernestine Toribio MD LABORATORY [facility] [place] [address] * POC GLUCOSE (02/26/2024 6:23 AM CDT) POC Glucose 78 70 - 100 mg/dL [facility] POINT OF CARE Blood 02/26/2024 6:23 AM CDT Humphrey Rose MD LABORATORY [facility] POINT OF CARE [address] [place] [address] * POC GLUCOSE (02/26/2024 12:01 AM CDT) POC Glucose 76 70 - 100 mg/dL [facility] - POINT OF CARE Blood 02/26/2024 12:0 1 AM CDT Humphrey Rose MD LABORATORY [facility] POINT OF CARE [address] [place] [address], [place] * POC GLUCOSE (02/25/2024 9:33 PM CDT) POC Glucose 76 70 - 100 mg/dL [facility] POINT OF CARE Blood 02/25/2024 9:33 PM CDT Humphrey Rose MD LABORATORY Performing Organization Address City/[facility]/ZIP Co de Phone Number [facility] POINT OF CARE [address] [place] [address], [place] * XR ABDOMEN 1 VIEW* (02/25/2024 [...] XRAY * PHOSPHORUS (02/25/2024 6:22 AM CDT) Pathologist [facility] Phosphorus 3.5 2.5 - 4.5 mg/dL [facility] Blood 02/25/2024 6:22 AM CDT 02/25/2024 6:55 AM CDT Ernestine Toribio MD LABORATORY Performing Organization Address [facility] de Phone Number [facility] [address] [address] * MAGNESIUM (02/25/2024 6:22 AM CDT) Pathologist [facility] Magnesium 2.3 1.6 - 2.6 mg/dL [facility] Blood 02/25/2024 6:22 AM CDT 02/25/2024 6:55 AM CDT Ernestine Toribio MD LABORATORY Performing Organization Address [facility] de Phone Number [facility] [address] [address] * (ABNORMAL) CBC WITH PLTS/AUTO DIFF (02/25/2024 6:22 AM CDT) Pathologist [facility] WBC 2.69(L) 4.00 - 10.00 k/cmm [facility] RBC 3.06(L) 3.90 - 5.20 m/cmm [facility] Hgb 9.2(L) 11.5 - 15.7 g/dL [facility] Hematocrit 28.9(L) 34.0 - 45.0 % [facility] MCV 94.4 80.0 - 100.0 fL [facility] MCH 30.1 25.0 - 32.0 pg [facility] MCHC 31.8 31.0 - 36.0 g/dL [facility] RDW 14.8(H) 11.5 - 14.5 % [facility] Plt 132(L) 150 - 400 k/cmm [facility] MPV 9.7 6.5 - 12.5 fL [facility] Automated Abs Neutrophil 1.09(L) 1.70 - 6.50 k/cmm [facility] Comment:Preliminary ANC, Fin al Result to Follow Abs Immature Granulocyte 0.01 0.00 - 0.09 k/cmm [facility] Comment:The Immature Granulo cyte Absolute count contains metamyelocytes and myelocytes. Abs Neutrophil 1.09(L) 1.70 - 6.50 k/cmm [facility] Abs Lymphocyte 1.25 0.80 - 4.00 k/cmm [facility] Abs Monocyte 0.25 0.20 - 1.00 k/cmm [facility] Abs Eosinophil 0.07 0.00 - 0.60 k/cmm [facility] Abs Basophil 0.02 0.00 - 0.20 k/cmm [facility] Blood 02/25/2024 6:22 AM CDT 02/25/2024 6:55 AM CDT Ernestine Toribio MD LABORATORY [facility] [address] [address] * (ABNORMAL) PANEL BASIC METABOLIC (BMP) (02/25/2024 6:22 AM CDT) Sodium 133(L) 135 - 148 mmol/L [facility] Potassium 3.1(L) 3.5 - 5.3 mmol/L [facility] Chloride 99 92 - 108 mmol/L [facility] CO2 27 22 - 30 mmol/L [facility] AnGap 7(L) 8 - 16 mmol/L [facility] Glucose 77 70 - 100 mg/dL [facility] BUN 10 6 - 20 mg/dL [facility] Creatinine 0.48(L) 0.50 - 1.00 mg/dL [facility] Calcium 7.8(L) 8.6 - 10.0 mg/dL [facility] eGFR (2020 CKD-EPI) 109 >=60 ml/min/1.7 3m2 [facility] Comment: The estimated glomerular filtration [...] Ernestine Toribio MD LABORATORY Performing Organization Address City/[facility]/ZIP Co de Phone Number [facility] [address] [address] * (ABNORMAL) POC GLUCOSE (02/24/2024 5:53 PM CDT) Pathologist [facility] POC Glucose 106(H) 70 - 100 mg/dL [facility] POINT OF CARE Blood 02/24/2024 5:53 PM CDT Humphrey Rose MD LABORATORY Performing Organization Address [facility] Co de Phone Number [facility] POINT OF CARE [address] [place] [address], * (ABNORMAL) PANEL HEPATIC FUNCTION (02/24/2024 11:25 AM CDT) [facility] Total Protein 5.9(L) 6.4 - 8.3 g/dL [facility] Albumin 2.6(L) 3.8 - 5.1 g/dL [facility] Bili Total 0.6 <=1.2 mg/dL [facility] Bili Direct 0.2 <=0.3 mg/dL [facility] Alk Phos 123(H) 35 - 104 IU/L [facility] Comment:No reference range e stablished for patients <18 years old. ALT (SGPT) <5 <=33 IU/L [facility] AST(SGOT) 27 5 - 40 IU/L [facility] Blood 02/24/2024 11:2 5 AM CDT 02/24/2024 11:56 AM CDT Ernestine Toribio MD LABORATORY Performing Organization Address City/[facility]/ZIP Co de Phone Number [facility] [address] [address] * (ABNORMAL) PROTHROMBIN (PT) & INR (02/24/2024 11:25 AM CDT) [facility] PT 16.8(H) 9.0 - 12.5 sec [facility] INR 1.5(H) 0.8 - 1.1 [facility] Comment: Warfarin Therapeutic Range: Standard Intensity: 2.0 - 3.0 High Intensity: 2.5 - 3.5 Blood 02/24/2024 11:2 5 AM CDT 02/24/2024 11:56 AM CDT Ernestine Toribio MD LABORATORY Performing Organization Address [facility] de Phone Number [facility] [address] [address] * MAGNESIUM (02/24/2024 11:25 AM CDT) Pathologist [facility] Magnesium 2.2 1.6 - 2.6 mg/dL [facility] Blood 02/24/2024 11:2 5 AM CDT 02/24/2024 11:56 AM CDT Ernestine Toribio MD LABORATORY Performing Organization Address [facility] de Phone Number [facility] [address] [address] * (ABNORMAL) PANEL BASIC METABOLIC (BMP) (02/24/2024 11:25 AM CDT) Sodium 132(L) 135 - 148 mmol/L [facility] Potassium 3.5 3.5 - 5.3 mmol/L [facility] Chloride 99 92 - 108 mmol/L [facility] CO2 25 22 - 30 mmol/L [facility] AnGap 8 8 - 16 mmol/L [facility] Glucose 83 70 - 100 mg/dL [facility] BUN 12 6 - 20 mg/dL [facility] Creatinine 0.55 0.50 - 1.00 mg/dL [facility] Calcium 7.5(L) 8.6 - 10.0 mg/dL [facility] eGFR (2020 CKD-EPI) 106 >=60 ml/min/1.7 3m2 [facility] Comment: The estimated glomerular filtration rate (eGFR) was calculated using the CKD-EPI 2020 creatinine equation, which does not include race as a factor. This equation is validated in individuals 18 years of age and older, and eGFR is normalized to a body surface area of 1.73m^2. Blood 02/24/2024 11:2 5 AM CDT 02/24/2024 11:56 AM CDT Ernestine Toribio MD LABORATORY [facility] [address] [address] * (ABNORMAL) CBC WITH PLTS/AUTO DIFF (02/24/2024 11:25 AM CDT) WBC 3.55(L) 4.00 - 10.00 k/cmm [facility] RBC 2.86(L) 3.90 - 5.20 m/cmm [facility] Hgb 8.6(L) 11.5 - 15.7 g/dL [facility] Hematocrit 27.3(L) 34.0 - 45.0 % [facility] MCV 95.5 80.0 - 100.0 fL [facility] MCH 30.1 25.0 - 32.0 pg [facility] MCHC 31.5 31.0 - 36.0 g/dL [facility] RDW 14.9(H) 11.5 - 14.5 % [facility] Plt 146(L) 150 - 400 k/cmm [facility] MPV 9.8 6.5 - 12.5 fL [facility] Automated Abs Neutrophil 1.79 1.70 - 6.50 k/cmm [facility] Comment:Preliminary ANC, Fin al Result to Follow Abs Immature Granulocyte 0.01 0.00 - 0.09 k/cmm [facility] Comment:The Immature Granulo cyte Absolute count contains metamyelocytes and myelocytes. Abs Neutrophil 1.79 1.70 - 6.50 k/cmm [facility] Abs Lymphocyte 1.37 0.80 - 4.00 k/cmm [facility] Abs Monocyte 0.33 0.20 - 1.00 k/cmm [facility] Abs Eosinophil 0.04 0.00 - 0.60 k/cmm [facility] Abs Basophil 0.01 0.00 - 0.20 k/cmm [facility] Blood 02/24/2024 11:2 5 AM CDT 02/24/2024 11:56 AM CDT Ernestine Toribio MD LABORATORY [facility] [address] [place] [address] * XR ABDOMEN 1 VIEW* (02/24/2024 9:02 [...] POC Glucose 80 70 - 100 mg/dL [facility] - POINT OF CARE Blood 02/24/2024 6:51 AM CDT Humphrey Rose MD LABORATORY [facility] - POINT OF CARE [address] [place] [address], * POC GLUCOSE (02/24/2024 1:36 AM CDT) POC Glucose 81 70 - 100 mg/dL [facility] POINT OF CARE Blood 02/24/2024 1:36 AM CDT Humphrey Rose MD LABORATORY Performing Organization Address [facility] Co de Phone Number [facility] [address] [place] [address], [place] * (ABNORMAL) POC GLUCOSE (02/23/2024 6:39 PM CDT) POC Glucose 140(H) 70 - 100 mg/dL [facility] POINT OF CARE Blood 02/23/2024 6:39 PM CDT Humphrey Rose MD LABORATORY Performing Organization Address [facility] de Phone Number [facility] POINT [facility] [address] [place] [address], [place] * XR ABDOMEN 1 VIEW* (02/23/2024 [...] CDT) Magnesium 2.2 1.6 - 2.6 mg/dL [facility] Blood 02/23/2024 8:46 AM CDT 02/23/2024 1:57 PM CDT Narrative [facility] - 02/23/2024 2:07 PM CDT Add to AM (02/22) labs. Ernestine Toribio MD LABORATORY [facility] [address] [address] * (ABNORMAL) PANEL BASIC METABOLIC (BMP) (02/23/2024 8:46 AM CDT) CO2 24 22 - 30 mmol/L [facility] Glucose 154(H) 70 - 100 mg/dL [facility] BUN 11 6 - 20 mg/dL [facility] Creatinine 0.52 0.50 - 1.00 mg/dL [facility] Calcium 7.6(L) 8.6 - 10.0 mg/dL [facility] Sodium 129(L) 135 - 148 mmol/L [facility] Potassium 3.3(L) 3.5 - 5.3 mmol/L [facility] Chloride 96 92 - 108 mmol/L [facility] eGFR (2020 CKD-EPI) 107 >=60 ml/min/1.7 3m2 [facility] Comment: The estimated glomerular filtration rate (eGFR) was calculated using the CKD-EPI 2020 creatinine equation, which does not include race as a factor. This equation is validated in individuals 18 years of age and older, and eGFR is normalized to a body surface area of 1.73m^2. AnGap 9 8 - 16 mmol/L [facility] Blood 02/23/2024 8:46 AM CDT 02/23/2024 9:23 AM CDT Francy Mc MD LABORATORY Performing Organization Address City/[facility]/ZIP Co de Phone Number [facility] [address] [place] [phone] * (ABNORMAL) CBC WITH PLATELET (02/23/2024 8:46 AM CDT) Pathologist [facility] WBC 3.17(L) 4.00 - 10.00 k/cmm [facility] RBC 3.23(L) 3.90 - 5.20 m/cmm [facility] Hgb 9.7(L) 11.5 - 15.7 g/dL [facility] Hematocrit 31.0(L) 34.0 - 45.0 % [facility] MCV 96.0 80.0 - 100.0 fL [facility] MCH 30.0 25.0 - 32.0 pg [facility] MCHC 31.3 31.0 - 36.0 g/dL [facility] RDW 14.9(H) 11.5 - 14.5 % [facility] Plt 138(L) 150 - 400 k/cmm [facility] MPV 10.4 6.5 - 12.5 fL [facility] Blood 02/23/2024 8:46 AM CDT 02/23/2024 9:23 AM CDT Francy Mc MD LABORATORY Performing Organization Address [facility] Co de Phone Number [facility] [address] [address] * POC GLUCOSE (02/23/2024 6:48 AM CDT) Pathologist [facility] POC Glucose 85 70 - 100 mg/dL [facility] - POINT OF CARE Blood 02/23/2024 6:48 AM CDT Humphrey Rose MD LABORATORY [facility] - POINT OF CARE [address] [place] [id number] [place] [address] * POC GLUCOSE (02/23/2024 12:07 AM CDT) Pathologist [facility] POC Glucose 74 70 - 100 mg/dL [facility] - POINT OF CARE Blood 02/23/2024 12:0 7 AM CDT Humphrey Rose MD LABORATORY Performing Organization Address City/[facility]/ZIP Co de Phone Number [facility] POINT OF CARE [address] [place] [address], [place] * POC GLUCOSE (02/22/2024 11:29 AM CDT) POC Glucose 91 70 - 100 mg/dL [facility] POINT OF CARE Blood 02/22/2024 11:2 9 AM CDT Humphrey Rose MD LABORATORY [facility] POINT OF CARE [address] [place] [address], [place] * POC GLUCOSE (02/22/2024 6:45 AM CDT) POC Glucose 78 70 - 100 mg/dL [facility] POINT OF CARE Blood 02/22/2024 6:45 AM CDT Humphrey Rose MD LABORATORY Performing Organization Address City/[facility] Co de Phone Number [facility] [address] [place] [address], [place] * (ABNORMAL) PANEL BASIC METABOLIC (BMP) (02/22/2024 6:18 AM CDT) CO2 26 22 - 30 mmol/L [facility] Glucose 81 70 - 100 mg/dL [facility] BUN 13 6 - 20 mg/dL [facility] Creatinine 0.52 0.50 - 1.00 mg/dL [facility] Calcium 7.6(L) 8.6 - 10.0 mg/dL [facility] Sodium 132(L) 135 - 148 mmol/L [facility] Potassium 3.5 3.5 - 5.3 mmol/L [facility] Chloride 98 92 - 108 mmol/L [facility] eGFR (2020 CKD-EPI) 107 >=60 ml/min/1.7 3m2 [facility] Comment: The estimated glomerular filtration rate (eGFR) was calculated using the CKD-EPI 2020 creatinine equation, which does not include race as a factor. This equation is validated in individuals 18 years of age and older, and eGFR is normalized to a body surface area of 1.73m^2. AnGap 8 8 - 16 mmol/L [facility] Blood 02/22/2024 6:18 AM CDT 02/22/2024 6:43 AM CDT Francy Mc MD LABORATORY Performing Organization Address City/[facility]/ZIP Co de Phone Number [facility] [address] [address] * (ABNORMAL) CBC WITH PLATELET (02/22/2024 6:18 AM CDT) WBC 3.82(L) 4.00 - 10.00 k/cmm [facility] RBC 2.68(L) 3.90 - 5.20 m/cmm [facility] Hgb 8.1(L) 11.5 - 15.7 g/dL [facility] Hematocrit 25.4(L) 34.0 - 45.0 % [facility] MCV 94.8 80.0 - 100.0 fL [facility] MCH 30.2 25.0 - 32.0 pg [facility] MCHC 31.9 31.0 - 36.0 g/dL [facility] RDW 15.3(H) 11.5 - 14.5 % [facility] Plt 115(L) 150 - 400 k/cmm [facility] MPV 10.0 6.5 - 12.5 fL [facility] Blood 02/22/2024 6:18 AM CDT 02/22/2024 6:43 AM CDT Francy Mc MD LABORATORY Performing Organization Address City/[facility]/ZIP Co de Phone Number [facility] [address] [address] * POC GLUCOSE (02/22/2024 12:39 AM CDT) POC Glucose 82 70 - 100 mg/dL [facility] POINT OF CARE Blood 02/22/2024 12:3 9 AM CDT Humphrey Rose MD LABORATORY Performing Organization Address [facility] Co de Phone Number [facility] [address] [place] [phone], * (ABNORMAL) POC GLUCOSE (02/21/2024 6:03 PM CDT) POC Glucose 144(H) 70 - 100 mg/dL [facility] POINT OF CARE Blood 02/21/2024 6:03 PM CDT Humphrey Rose MD LABORATORY Performing Organization Address [facility] Co de Phone Number [address] [address], [place] * LACTATE (LACTIC ACID) (02/21/2024 8:38 AM CDT) Pathologist [facility] Lactate 1.3 0.7 - 2.1 mmol/L [facility] Blood 02/21/2024 8:38 AM CDT 02/21/2024 8:49 AM CDT Narrative [facility] - 02/21/2024 8:57 AM CDT Send specimen on ice! Nikos Ferrer MD LABORATORY Performing Organization Address [facility] Co de Phone Number [facility] [address] [address] * CALCIUM,IONIZED (02/21/2024 8:38 AM CDT) PH 7.40 7.32 - 7.42 [facility] ICA, Actual 4.45 4.40 - 5.20 mg/dL [facility] ICA, pH Corrected 4.46 4.40 - 5.20 mg/dL [facility] Blood 02/21/2024 8:38 AM CDT 02/21/2024 8:49 AM CDT Narrative [facility] - 02/21/2024 8:57 AM CDT Send specimen on ice! Nikos Ferrer MD LABORATORY Performing Organization Address [facility] Co de Phone Number [facility] [address] [address] * PHOSPHORUS (02/21/2024 8:38 AM CDT) Phosphorus 3.5 2.5 - 4.5 mg/dL [facility] Blood 02/21/2024 8:38 AM CDT 02/21/2024 8:50 AM CDT Nikos Ferrer MD LABORATORY Performing Organization Address [facility] Co de Phone Number [facility] [address] [address] * MAGNESIUM (02/21/2024 8:38 AM CDT) Magnesium 2.2 1.6 - 2.6 mg/dL [facility] Blood 02/21/2024 8:38 AM CDT 02/21/2024 8:50 AM CDT Nikos Ferrer MD LABORATORY Performing Organization Address [facility] de Phone Number [facility] [address] [address] * (ABNORMAL) PANEL BASIC METABOLIC (BMP) (02/21/2024 8:38 AM CDT) Sodium 131(L) 135 - 148 mmol/L [facility] Potassium 4.0 3.5 - 5.3 mmol/L [facility] Chloride 98 92 - 108 mmol/L [facility] CO2 27 22 - 30 mmol/L [facility] AnGap 6(L) 8 - 16 mmol/L [facility] Glucose 88 70 - 100 mg/dL [facility] BUN 13 6 - 20 mg/dL [facility] Creatinine 0.52 0.50 - 1.00 mg/dL [facility] Calcium 8.0(L) 8.6 - 10.0 mg/dL [facility] eGFR (2020 CKD-EPI) 107 >=60 ml/min/1.7 3m2 [facility] Comment: The estimated glomerular filtration rate (eGFR) was calculated using the CKD-EPI 2020 creatinine equation, which does not include race as a factor. This equation is validated in individuals 18 years of age and older, and eGFR is normalized to a body surface area of 1.73m^2. Blood 02/21/2024 8:38 AM CDT 02/21/2024 8:50 AM CDT Francy Mc MD LABORATORY [facility] [address] [address] * (ABNORMAL) CBC WITH PLATELET (02/21/2024 8:38 AM CDT) WBC 4.54 4.00 - 10.00 k/cmm [facility] RBC 3.02(L) 3.90 - 5.20 m/cmm [facility] Hgb 9.0(L) 11.5 - 15.7 g/dL [facility] Hematocrit 28.7(L) 34.0 - 45.0 % [facility] MCV 95.0 80.0 - 100.0 fL [facility] MCH 29.8 25.0 - 32.0 pg [facility] MCHC 31.4 31.0 - 36.0 g/dL [facility] RDW 15.2(H) 11.5 - 14.5 % [facility] Plt 120(L) 150 - 400 k/cmm [facility] MPV 10.3 6.5 - 12.5 fL [facility] Blood 02/21/2024 8:38 AM CDT 02/21/2024 8:50 AM CDT Francy Mc MD LABORATORY [facility] [address] [address] * CALCIUM,IONIZED (02/20/2024 8:37 PM CDT) PH 7.41 7.32 - 7.42 [facility] ICA, Actual 4.57 4.40 - 5.20 mg/dL [facility] ICA, pH Corrected 4.58 4.40 - 5.20 mg/dL [facility] Blood 02/20/2024 8:37 PM CDT 02/20/2024 9:02 PM CDT Narrative [facility] - 02/20/2024 9:07 PM CDT Send specimen on ice! Autumn Jerome MD LABORATORY Performing Organization Address [facility] Co de Phone Number [facility] [address] [address] * PHOSPHORUS (02/20/2024 8:37 PM CDT) [facility] Phosphorus 3.4 2.5 - 4.5 mg/dL [facility] Blood 02/20/2024 8:37 PM CDT 02/20/2024 9:04 PM CDT Autumn Jerome MD LABORATORY Performing Organization Address [facility] Co de Phone Number [facility] [address] [address] * MAGNESIUM (02/20/2024 8:37 PM CDT) [facility] Magnesium 2.2 1.6 - 2.6 mg/dL [facility] Blood 02/20/2024 8:37 PM CDT 02/20/2024 9:04 PM CDT Autumn Jerome MD LABORATORY Performing Organization Address [facility] Co de Phone Number [facility] [address] [address] * (ABNORMAL) PANEL BASIC METABOLIC (BMP) (02/20/2024 8:37 PM CDT) Pathologist [facility] Sodium 129(L) 135 - 148 mmol/L [facility] Potassium 4.2 3.5 - 5.3 mmol/L [facility] Chloride 96 92 - 108 mmol/L [facility] CO2 26 22 - 30 mmol/L [facility] AnGap 7(L) 8 - 16 mmol/L [facility] Glucose 93 70 - 100 mg/dL [facility] BUN 15 6 - 20 mg/dL [facility] Creatinine 0.59 0.50 - 1.00 mg/dL [facility] Calcium 8.1(L) 8.6 - 10.0 mg/dL [facility] eGFR (2020 CKD-EPI) 104 >=60 ml/min/1.7 3m2 [facility] Comment: The estimated glomerular filtration [...] Autumn Jerome MD LABORATORY Performing Organization Address City/[facility]/ZIP Co de Phone Number [facility] [address] [address] * (ABNORMAL) PROTHROMBIN (PT) & INR (02/20/2024 8:37 PM CDT) PT 15.9(H) 9.0 - 12.5 sec [facility] INR 1.4(H) 0.8 - 1.1 [facility] Comment: Warfarin Therapeutic Range: Standard Intensity: 2.0 - 3.0 High Intensity: 2.5 - 3.5 Blood 02/20/2024 8:37 PM CDT 02/20/2024 9:04 PM CDT Francy Mc MD LABORATORY [facility] [address] [address] * (ABNORMAL) HEMOGLOBIN (02/20/2024 8:37 PM CDT) Hgb 8.7(L) 11.5 - 15.7 g/dL [facility] Blood 02/20/2024 8:37 PM CDT 02/20/2024 9:04 PM CDT Francy Mc MD LABORATORY [facility] [address] [place] [address] * CT ABDOMEN/PELVIS W/IV CON (02/20/2024 7:05 [...] resident/fellow. Reading Radiologist: Landon Mitchell Reading Resident: [employer] Narrative 02/21/2024 9:02 AM CDT Comparison: [...] (ABNORMAL) POC GLUCOSE (02/20/2024 6:32 PM CDT) POC Glucose 119(H) 70 - 100 mg/dL [facility] - POINT OF CARE Blood 02/20/2024 6:32 PM CDT Humphrey Rose MD LABORATORY [facility] - POINT OF CARE [address] [place] [address], * LACTATE (LACTIC ACID) (02/20/2024 5:38 PM CDT) Lactate 1.8 0.7 - 2.1 mmol/L [facility] Blood 02/20/2024 5:38 PM CDT 02/20/2024 5:44 PM CDT Narrative [facility] - 02/20/2024 5:48 PM CDT Send specimen on ice! Francy Mc MD LABORATORY [facility] [address] [address] * XR ABDOMEN 1 VIEW* (02/20/2024 4:42 [...] Total Protein 5.9(L) 6.4 - 8.3 g/dL [facility] Albumin 3.1(L) 3.8 - 5.1 g/dL [facility] Bili Total 0.9 <=1.2 mg/dL [facility] Bili Direct 0.3 <=0.3 mg/dL [facility] Alk Phos 114(H) 35 - 104 IU/L [facility] Comment:No reference range e stablished for patients <18 years old. ALT (SGPT) 5 <=33 IU/L [facility] AST(SGOT) 38 5 - 40 IU/L [facility] Blood 02/20/2024 7:44 AM CDT 02/20/2024 3:36 PM CDT Francy Mc MD LABORATORY [facility] [address] [address] * (ABNORMAL) PANEL BASIC METABOLIC (BMP) (02/20/2024 7:44 AM CDT) Sodium 129(L) 135 - 148 mmol/L [facility] Potassium 4.1 3.5 - 5.3 mmol/L [facility] Chloride 96 92 - 108 mmol/L [facility] CO2 27 22 - 30 mmol/L [facility] AnGap 6(L) 8 - 16 mmol/L [facility] Glucose 83 70 - 100 mg/dL [facility] BUN 15 6 - 20 mg/dL [facility] Creatinine 0.61 0.50 - 1.00 mg/dL [facility] Calcium 8.0(L) 8.6 - 10.0 mg/dL [facility] eGFR (2020 CKD-EPI) 103 >=60 ml/min/1.7 3m2 [facility] Comment: The estimated glomerular filtration rate (eGFR) was calculated using the CKD-EPI 2020 creatinine equation, which does not include race as a factor. This equation is validated in individuals 18 years of age and older, and eGFR is normalized to a body surface area of 1.73m^2. Blood 02/20/2024 7:44 AM CDT 02/20/2024 8:35 AM CDT Francy Mc MD LABORATORY Performing Organization Address City/[facility]/ZIP Co de Phone Number [facility] [address] [address] * (ABNORMAL) CBC WITH PLATELET (02/20/2024 7:44 AM CDT) WBC 3.10(L) 4.00 - 10.00 k/cmm [facility] RBC 2.63(L) 3.90 - 5.20 m/cmm [facility] Hgb 8.0(L) 11.5 - 15.7 g/dL [facility] Hematocrit 25.7(L) 34.0 - 45.0 % [facility] MCV 97.7 80.0 - 100.0 fL [facility] MCH 30.4 25.0 - 32.0 pg [facility] MCHC 31.1 31.0 - 36.0 g/dL [facility] RDW 15.3(H) 11.5 - 14.5 % [facility] Plt 116(L) 150 - 400 k/cmm [facility] MPV 10.8 6.5 - 12.5 fL [facility] Blood 02/20/2024 7:44 AM CDT 02/20/2024 8:35 AM CDT Francy Mc MD LABORATORY Performing Organization Address City/[facility]/ZIP Co de Phone Number [facility] [address] [address] * POC GLUCOSE (02/20/2024 6:18 AM CDT) POC Glucose 92 70 - 100 mg/dL [facility] Blood 02/20/2024 6:18 AM CDT Humphrey Rose MD LABORATORY Performing Organization Address [facility] de Phone Number [facility] [address] [place] [phone], * (ABNORMAL) POC GLUCOSE (02/19/2024 9:24 PM CDT) POC Glucose 128(H) 70 - 100 mg/dL [facility] Blood 02/19/2024 9:24 PM CDT Humphrey Rose MD LABORATORY Performing Organization Address [facility] de Phone Number [facility] [address] [address], [place] * POC GLUCOSE (02/19/2024 4:19 PM CDT) POC Glucose 83 70 - 100 mg/dL [facility] Blood 02/19/2024 4:19 PM CDT Humphrey Rose MD LABORATORY Performing Organization Address [facility] de Phone Number [facility] OF [address] [address], [place] * Paracentesis (02/19/2024 2:55 PM CDT) [...] to verify the correct patient, procedure, equipment, business support and site/side marked as required. Initial [...] * POC GLUCOSE (02/19/2024 11:06 AM CDT) [facility] POC Glucose 82 70 - 100 mg/dL [facility] Blood 02/19/2024 11:0 6 AM CDT Humphrey Rose MD LABORATORY Performing Organization Address City/[facility]/ZIP Co de Phone Number [facility] [address] [place] [phone], [place] * POC GLUCOSE (02/19/2024 6:02 AM CDT) [facility] POC Glucose 84 70 - 100 mg/dL [facility] Blood 02/19/2024 6:02 AM CDT Humphrey Rose MD LABORATORY Performing Organization Address City/[facility] Co de Phone Number [facility] [address] [place] [address], [place] * (ABNORMAL) CBC WITH PLATELET (02/19/2024 5:03 AM CDT) [facility] WBC 3.27(L) 4.00 - 10.00 k/cmm [facility] RBC 2.64(L) 3.90 - 5.20 m/cmm [facility] Hgb 8.1(L) 11.5 - 15.7 g/dL [facility] Hematocrit 25.8(L) 34.0 - 45.0 % [facility] MCV 97.7 80.0 - 100.0 fL [facility] MCH 30.7 25.0 - 32.0 pg [facility] MCHC 31.4 31.0 - 36.0 g/dL [facility] RDW 15.3(H) 11.5 - 14.5 % [facility] Plt 127(L) 150 - 400 k/cmm [facility] MPV 10.4 6.5 - 12.5 fL [facility] Blood 02/19/2024 5:03 AM CDT 02/19/2024 5:39 AM CDT Francy Mc MD LABORATORY Performing Organization Address City/[facility]/ZIP Co de Phone Number [facility] [address] [id number] * (ABNORMAL) PANEL BASIC METABOLIC (BMP) (02/19/2024 5:03 AM CDT) Sodium 129(L) 135 - 148 mmol/L [facility] Potassium 4.3 3.5 - 5.3 mmol/L [facility] Chloride 95 92 - 108 mmol/L [facility] CO2 26 22 - 30 mmol/L [facility] AnGap 8 8 - 16 mmol/L [facility] Glucose 80 70 - 100 mg/dL [facility] BUN 18 6 - 20 mg/dL [facility] Creatinine 0.65 0.50 - 1.00 mg/dL [facility] Calcium 8.4(L) 8.6 - 10.0 mg/dL [facility] eGFR (2020 CKD-EPI) 101 >=60 ml/min/1.7 3m2 [facility] Comment: The estimated glomerular filtration rate (eGFR) was calculated using the CKD-EPI 2020 creatinine equation, which does not include race as a factor. This equation is validated in individuals 18 years of age and older, and eGFR is normalized to a body surface area of 1.73m^2. Blood 02/19/2024 5:03 AM CDT 02/19/2024 5:39 AM CDT Francy Mc MD LABORATORY [facility] [address] [address] * POC GLUCOSE (02/19/2024 12:07 AM CDT) POC Glucose 85 70 - 100 mg/dL [facility] - POINT OF CARE Blood 02/19/2024 12:0 7 AM CDT Humphrey Rose MD LABORATORY [facility] - POINT OF CARE [address] [place] [address], * (ABNORMAL) SODIUM (02/18/2024 9:39 PM CDT) Sodium 126(L) 135 - 148 mmol/L [facility] Blood 02/18/2024 9:39 PM CDT 02/18/2024 10:05 PM CDT Francy Mc MD LABORATORY Performing Organization Address City/[facility]/ZIP Co de Phone Number [address] [address] * OSMOLALITY,URINE-RANDOM LASHELL (02/18/2024 4:31 PM CDT) Urine Osmo 293 50 - 800 mOsm/Kg [facility] Urine 02/18/2024 4:31 PM CDT 02/18/2024 4:43 PM CDT Francy Mc MD LABORATORY Performing Organization Address City/[facility] Co de Phone Number [address] [address] * (ABNORMAL) SODIUM,URINE-RANDOM LASHELL (02/18/2024 4:31 PM CDT) Sodium Urine <20(L) 40 - 200 mEq/L [facility] Urine 02/18/2024 4:31 PM CDT 02/18/2024 4:43 PM CDT Francy Mc MD LABORATORY Performing Organization Address City/[facility]/ZIP Co de Phone Number [address] [address] * (ABNORMAL) SODIUM (02/18/2024 3:10 PM CDT) Sodium 125(AA) 135 - 148 mmol/L [facility] Comment:Critical Result Low Blood 02/18/2024 3:10 PM CDT 02/18/2024 3:36 PM CDT Narrative [facility] - 02/18/2024 4:25 PM CDT Critical value for Na called to and read back by Francy Mc MD in Ortho at 02/18/2024 16:24:57 CDT by Marion Tate MLS. Francy Mc MD LABORATORY [facility] [place] [id number] * TSH WITH REFLEX TO FREE T4 (02/18/2024 8:33 AM CDT) Pathologist [facility] TSH 1.99 0.27 - 4.20 mIU/L [facility] Blood 02/18/2024 8:33 AM CDT 02/18/2024 5:10 PM CDT Francy Mc MD LABORATORY Performing Organization Address [facility] Co de Phone Number [facility] [place] [phone] * (ABNORMAL) PANEL BASIC METABOLIC (BMP) (02/18/2024 8:33 AM CDT) Sodium 127(L) 135 - 148 mmol/L [facility] Potassium 4.2 3.5 - 5.3 mmol/L [facility] Chloride 95 92 - 108 mmol/L [facility] CO2 25 22 - 30 mmol/L [facility] AnGap 7(L) 8 - 16 mmol/L [facility] Glucose 92 70 - 100 mg/dL [facility] BUN 18 6 - 20 mg/dL [facility] Creatinine 0.71 0.50 - 1.00 mg/dL [facility] Calcium 7.9(L) 8.6 - 10.0 mg/dL [facility] eGFR (2020 CKD-EPI) 98 >=60 ml/min/1.7 3m2 [facility] Comment: The estimated glomerular filtration rate (eGFR) was calculated using the CKD-EPI 2020 creatinine equation, which does not include race as a factor. This equation is validated in individuals 18 years of age and older, and eGFR is normalized to a body surface area of 1.73m^2. Blood 02/18/2024 8:33 AM CDT 02/18/2024 8:45 AM CDT Francy Mc MD LABORATORY Performing Organization Address City/[facility]/ZIP Co de Phone Number [facility] [address] [address] * (ABNORMAL) CBC WITH PLATELET (02/18/2024 8:33 AM CDT) WBC 4.30 4.00 - 10.00 k/cmm [facility] RBC 3.08(L) 3.90 - 5.20 m/cmm [facility] Hgb 9.6(L) 11.5 - 15.7 g/dL [facility] Hematocrit 29.2(L) 34.0 - 45.0 % [facility] MCV 94.8 80.0 - 100.0 fL [facility] MCH 31.2 25.0 - 32.0 pg [facility] MCHC 32.9 31.0 - 36.0 g/dL [facility] RDW 15.5(H) 11.5 - 14.5 % [facility] Plt 148(L) 150 - 400 k/cmm [facility] MPV 10.1 6.5 - 12.5 fL [facility] Blood 02/18/2024 8:33 AM CDT 02/18/2024 8:45 AM CDT Francy Mc MD LABORATORY Performing Organization Address City/[facility]/ZIP Co de Phone Number [facility] [address] [address] * POC GLUCOSE (02/18/2024 8:06 AM CDT) POC Glucose 74 70 - 100 mg/dL [facility] - POINT OF CARE Blood 02/18/2024 8:06 AM CDT Humphrey Rose MD LABORATORY [facility] POINT OF CARE [address] [place] [address], * (ABNORMAL) POC GLUCOSE (02/17/2024 11:13 AM CDT) POC Glucose 113(H) 70 - 100 mg/dL [facility] - POINT OF CARE Blood 02/17/2024 11:1 3 AM CDT Humphrey Rose MD LABORATORY Performing Organization Address City/[facility] Co de Phone Number [facility] PO[facility] [address] [place] [address], [place] * (ABNORMAL) PANEL BASIC METABOLIC (BMP) (02/17/2024 7:19 AM CDT) CO2 25 22 - 30 mEq/L [facility] Glucose 83 70 - 100 mg/dL [facility] BUN 16 6 - 20 mg/dL [facility] Creatinine 0.59 0.50 - 1.00 mg/dL [facility] Calcium 7.7(L) 8.6 - 10.0 mg/dL [facility] Sodium 128(L) 135 - 148 mEq/L [facility] Potassium 4.0 3.5 - 5.3 mEq/L [facility] Chloride 97 92 - 108 mEq/L [facility] eGFR (2020 CKD-EPI) 104 >=60 ml/min/1.7 3m2 [facility] Comment: The estimated glomerular filtration rate (eGFR) was calculated using the CKD-EPI 2020 creatinine equation, which does not include race as a factor. This equation is validated in individuals 18 years of age and older, and eGFR is normalized to a body surface area of 1.73m^2. AnGap 6(L) 8 - 16 mEq/L [facility] Blood 02/17/2024 7:19 AM CDT 02/17/2024 8:14 AM CDT Francy Mc MD LABORATORY [facility] [address] [address] * (ABNORMAL) CBC WITH PLATELET (02/17/2024 7:19 AM CDT) Pathologist [facility] WBC 4.68 4.00 - 10.00 k/cmm [facility] RBC 2.63(L) 3.90 - 5.20 m/cmm [facility] Hgb 8.0(L) 11.5 - 15.7 g/dL [facility] Hematocrit 25.5(L) 34.0 - 45.0 % [facility] MCV 97.0 80.0 - 100.0 fL [facility] MCH 30.4 25.0 - 32.0 pg [facility] MCHC 31.4 31.0 - 36.0 g/dL [facility] RDW 15.3(H) 11.5 - 14.5 % [facility] Plt 133(L) 150 - 400 k/cmm [facility] MPV 10.5 6.5 - 12.5 fL [facility] Blood 02/17/2024 7:19 AM CDT 02/17/2024 8:14 AM CDT Francy Mc MD LABORATORY [address] [address] * POC GLUCOSE (02/17/2024 6:02 AM CDT) Pathologist [facility] POC Glucose 86 70 - 100 mg/dL [facility] - POINT OF CARE Blood 02/17/2024 6:02 AM CDT Humphrey Rose MD LABORATORY [facility] - POINT OF CARE [address] [place] [address] * POC GLUCOSE (02/17/2024 12:02 AM CDT) Pathologist [facility] POC Glucose 95 70 - 100 mg/dL [facility] - POINT OF CARE Blood 02/17/2024 12:0 2 AM CDT Humphrey Rose MD LABORATORY Performing Organization Address [facility] Co de Phone Number [facility] [address] [place] [address], * (ABNORMAL) POC GLUCOSE (02/16/2024 6:18 PM CDT) POC Glucose 155(H) 70 - 100 mg/dL [facility] PO[facility] Blood 02/16/2024 6:18 PM CDT Humphrey Rose MD LABORATORY Performing Organization Address [facility] Co de Phone Number [facility] [address] [place] [address], [place] * Paracentesis (02/16/2024 3:19 PM CDT) [...] to verify the correct patient, procedure, equipment, business support and site/side marked as required. Initial [...] as above. Milan Duque PA-C PROCEDURES * IR PARACENTESIS (02/16/2024 2:57 PM [...] as above. Reading Radiologist: Milan Duque Milan ENNIS-Y[facility] RAD IR * BODY FLUID CULTURE:INCLUDES GRAM STAIN (02/16/2024 2:56 PM CDT) Final Report No growth. [facility] Gram Stain Report PMN's seen. No organisms seen. [facility] Peritoneal Fluid PERITONEUM (SEROUS MEMBRANE) STRUCTURE / Unknown 02/16/2024 2:56 PM CDT 02/16/2024 3:54 PM CDT Francy Mc MD LAB MICROBIOLOG Y [facility] [address] [address] * BODY FLUID CELL COUNT/DIFF (02/16/2024 2:55 PM CDT) Fluid Type PT Peritoneal [facility] Comment:Normal reference ran ges have not been determined; clinical correlation is recommended. Volume PT Fluid 1,000 mL [facility] Appearance PT Clear [facility] Color bf Yellow [facility] Rbc PT Fluid <1,000 cells/ul [facility] Nuc Ct PT Fluid 167 cells/ul [facility] Neutrophil PT Fluid 16 % [facility] Lymphocytes PT Fluid 44 % [facility] Basophil PT Fluid 1 % [facility] MONO/MACS FL 33 % [facility] Other PT Fluid 6 % [facility] Comment:Others are mesotheli al cells. Peritoneal Fluid 02/16/2024 2:55 PM CDT 02/16/2024 3:43 PM CDT Francy Mc MD LABORATORY Performing Organization Address [facility] Co de Phone Number [facility] [address] [address] * (ABNORMAL) CBC WITH PLATELET (02/16/2024 8:12 AM CDT) WBC 5.95 4.00 - 10.00 k/cmm [facility] RBC 3.08(L) 3.90 - 5.20 m/cmm [facility] Hgb 9.3(L) 11.5 - 15.7 g/dL [facility] Hematocrit 29.4(L) 34.0 - 45.0 % [facility] MCV 95.5 80.0 - 100.0 fL [facility] MCH 30.2 25.0 - 32.0 pg [facility] MCHC 31.6 31.0 - 36.0 g/dL [facility] RDW 15.6(H) 11.5 - 14.5 % [facility] Plt 167 150 - 400 k/cmm [facility] MPV 10.2 6.5 - 12.5 fL [facility] Blood 02/16/2024 8:12 AM CDT 02/16/2024 8:54 AM CDT Ernestine Toribio MD LABORATORY Performing Organization Address [facility] Co de Phone Number [facility] [address] [address] * (ABNORMAL) PANEL HEPATIC FUNCTION (02/16/2024 8:12 AM CDT) Total Protein 6.6 6.4 - 8.3 g/dL [facility] Albumin 2.2(L) 3.8 - 5.1 g/dL [facility] Bili Total 0.8 <=1.2 mg/dL [facility] Bili Direct 0.4(H) <=0.3 mg/dL [facility] Alk Phos 155(H) 35 - 104 IU/L [facility] Comment:No reference range e stablished for patients <18 years old. ALT (SGPT) <5 <=33 IU/L [facility] AST(SGOT) 42(H) 5 - 40 IU/L [facility] Blood 02/16/2024 8:12 AM CDT 02/16/2024 8:54 AM CDT Ernestine Toribio MD LABORATORY [facility] [address] [address] * (ABNORMAL) PROTHROMBIN (PT) & INR (02/16/2024 8:12 AM CDT) PT 16.0(H) 9.0 - 12.5 sec [facility] INR 1.4(H) 0.8 - 1.1 [facility] Comment: Warfarin Therapeutic Range: Standard Intensity: 2.0 - 3.0 High Intensity: 2.5 - 3.5 Blood 02/16/2024 8:12 AM CDT 02/16/2024 8:54 AM CDT Ernestine Toribio MD LABORATORY Performing Organization Address City/[facility]/ZIP Co de Phone Number [facility] [address] [address] * MAGNESIUM (02/16/2024 8:12 AM CDT) Magnesium 2.0 1.6 - 2.6 mg/dL [facility] Blood 02/16/2024 8:12 AM CDT 02/16/2024 8:54 AM CDT Ernestine Toribio MD LABORATORY Performing Organization Address City/[facility]/ZIP Co de Phone Number [facility] [address] [address] * (ABNORMAL) PANEL BASIC METABOLIC (BMP) (02/16/2024 8:12 AM CDT) Sodium 129(L) 135 - 148 mEq/L [facility] Potassium 3.6 3.5 - 5.3 mEq/L [facility] Chloride 96 92 - 108 mEq/L [facility] CO2 26 22 - 30 mEq/L [facility] AnGap 7(L) 8 - 16 mEq/L [facility] Glucose 81 70 - 100 mg/dL [facility] BUN 18 6 - 20 mg/dL [facility] Creatinine 0.62 0.50 - 1.00 mg/dL [facility] Calcium 7.5(L) 8.6 - 10.0 mg/dL [facility] eGFR (2020 CKD-EPI) 103 >=60 ml/min/1.7 3m2 [facility] Comment: The estimated glomerular filtration rate (eGFR) was calculated using the CKD-EPI 2020 creatinine equation, which does not include race as a factor. This equation is validated in individuals 18 years of age and older, and eGFR is normalized to a body surface area of 1.73m^2. Blood 02/16/2024 8:12 AM CDT 02/16/2024 8:54 AM CDT Ernestine Toribio MD LABORATORY [facility] [place] [address] * POC GLUCOSE (02/16/2024 6:35 AM CDT) POC Glucose 70 70 - 100 mg/dL [facility] - POINT OF CARE Blood 02/16/2024 6:35 AM CDT Humphrey Rose MD LABORATORY [facility] - POINT OF CARE [address] [place] [address] * POC GLUCOSE (02/15/2024 11:47 PM CDT) POC Glucose 82 70 - 100 mg/dL [facility] - POINT OF CARE Blood 02/15/2024 11:4 7 PM CDT Humphrey Rose MD LABORATORY Performing Organization Address City/[facility]/ZIP Co de Phone Number [facility] POINT OF CARE [address] [place] [address], [place] * (ABNORMAL) POC GLUCOSE (02/15/2024 5:52 PM CDT) POC Glucose 167(H) 70 - 100 mg/dL [facility] - POINT OF CARE Blood 02/15/2024 5:52 PM CDT Humphrey Rose MD LABORATORY Performing Organization Address City/[facility]/ZIP Co de Phone Number [facility] [address] [place] [address], [place] * POC GLUCOSE (02/15/2024 1:21 PM CDT) POC Glucose 86 70 - 100 mg/dL [facility] POINT OF CARE Blood 02/15/2024 1:21 PM CDT Humphrey Rose MD LABORATORY Performing Organization Address City/[facility] Co de Phone Number [facility] [address] [place] [address], [place] * (ABNORMAL) POC GLUCOSE (02/15/2024 12:21 PM CDT) POC Glucose 66(L) 70 - 100 mg/dL [facility] POINT OF CARE Blood 02/15/2024 12:2 1 PM CDT Humphrey Rose MD LABORATORY Performing Organization Address City/[facility]/ZIP Co de Phone Number [facility] [address] [place] [address], [place] * XR ABDOMEN 1 VIEW* (02/15/2024 [...] POC Glucose 86 70 - 100 mg/dL [facility] - POINT OF CARE Blood 02/15/2024 10:4 6 AM CDT Humphrey Rose MD LABORATORY [facility] - POINT OF CARE [address] [place] [address], * FLEXIBLE SIGMOIDOSCOPY (02/15/2024 9:55 AM CDT) 02/15/2024 9:55 AM CDT Narrative [facility] - 02/15/2024 11:22 AM CDT Gastroenterology Lab Patient Name: Cathy Raymond ?Procedure Date: 02/15/2024 9:55 AM ?Date of : 1965 Admit Type: Inpatient ? Age: 58 Gender: Female Procedure: ? Flexible Sigmoidoscopy Providers: ? Ugo Rincon, Raven Reyes RN, Toby Villarreal, Scratch Finisher (Scratch Finisher), Olesya Whipple (Fellow) Referring MD: ?Self Referral [...] procedure, including non-valencia portions. Ugo Rincon, , [id number] 02/15/2024 11:20:50 AM Olesya Whipple, , [id number] Number of Addenda: 0 Note Initiated On: 02/15/2024 9:55 AM Nataly Quinones PA-C GI LAB Performing Organization Address City/[facility]/ZIP Co de Phone Number [facility] * MAGNESIUM (02/15/2024 6:48 AM CDT) Magnesium 2.2 1.6 - 2.6 mg/dL [facility] Blood 02/15/2024 6:48 AM CDT 02/15/2024 7:32 AM CDT Ernestine Toribio MD LABORATORY [facility] [address] [place] [address] * PHOSPHORUS (02/15/2024 6:48 AM CDT) Phosphorus 3.3 2.5 - 4.5 mg/dL [facility] Blood 02/15/2024 6:48 AM CDT 02/15/2024 7:32 AM CDT Ernestine Toribio MD LABORATORY Performing Organization Address [facility] Co de Phone Number [facility] [address] [address] * (ABNORMAL) CBC WITH PLATELET (02/15/2024 6:48 AM CDT) WBC 5.76 4.00 - 10.00 k/cmm [facility] RBC 2.90(L) 3.90 - 5.20 m/cmm [facility] Hgb 8.9(L) 11.5 - 15.7 g/dL [facility] Hematocrit 28.4(L) 34.0 - 45.0 % [facility] MCV 97.9 80.0 - 100.0 fL [facility] MCH 30.7 25.0 - 32.0 pg [facility] MCHC 31.3 31.0 - 36.0 g/dL [facility] RDW 15.3(H) 11.5 - 14.5 % [facility] Plt 156 150 - 400 k/cmm [facility] MPV 10.3 6.5 - 12.5 fL [facility] Blood 02/15/2024 6:48 AM CDT 02/15/2024 7:49 AM CDT Ernestine Toribio MD LABORATORY Performing Organization Address [facility] Co de Phone Number [facility] [address] [address] * (ABNORMAL) PROTHROMBIN (PT) & INR (02/15/2024 6:48 AM CDT) PT 15.5(H) 9.0 - 12.5 sec [facility] INR 1.4(H) 0.8 - 1.1 [facility] Comment: Warfarin Therapeutic Range: Standard Intensity: 2.0 - 3.0 High Intensity: 2.5 - 3.5 Blood 02/15/2024 6:48 AM CDT 02/15/2024 7:32 AM CDT Ernestine Toribio MD LABORATORY Performing Organization Address City/[facility] Co de Phone Number [facility] [address] [address] * (ABNORMAL) PANEL HEPATIC FUNCTION (02/15/2024 6:48 AM CDT) Total Protein 6.3(L) 6.4 - 8.3 g/dL [facility] Albumin 1.9(L) 3.8 - 5.1 g/dL [facility] Bili Total 0.7 <=1.2 mg/dL [facility] Bili Direct 0.3 <=0.3 mg/dL [facility] Alk Phos 144(H) 35 - 104 IU/L [facility] Comment:No reference range e stablished for patients <18 years old. ALT (SGPT) <5 <=33 IU/L [facility] AST(SGOT) 37 5 - 40 IU/L [facility] Blood 02/15/2024 6:48 AM CDT 02/15/2024 7:32 AM CDT Ernestine Toribio MD LABORATORY Performing Organization Address [facility] Co de Phone Number [facility] [address] [address] * (ABNORMAL) PANEL BASIC METABOLIC (BMP) (02/15/2024 6:48 AM CDT) Pathologist [facility] Sodium 129(L) 135 - 148 mEq/L [facility] Potassium 4.1 3.5 - 5.3 mEq/L [facility] Chloride 97 92 - 108 mEq/L [facility] CO2 26 22 - 30 mEq/L [facility] AnGap 6(L) 8 - 16 mEq/L [facility] Glucose 80 70 - 100 mg/dL [facility] BUN 17 6 - 20 mg/dL [facility] Creatinine 0.60 0.50 - 1.00 mg/dL [facility] Calcium 7.7(L) 8.6 - 10.0 mg/dL [facility] eGFR (2020 CKD-EPI) 103 >=60 ml/min/1.7 3m2 [facility] Comment: The estimated glomerular filtration [...] Ernestine Toribio MD LABORATORY Performing Organization Address City/[facility] Co de Phone Number [facility] [address] [place] [address] * POC GLUCOSE (02/15/2024 6:04 AM CDT) POC Glucose 77 70 - 100 mg/dL [facility] POINT [facility] CARE Blood 02/15/2024 6:04 AM CDT Humphrey Rose MD LABORATORY Performing Organization Address [facility] Co de Phone Number [facility] POINT OF [facility] [address] [place] [phone], [place] * POC GLUCOSE (02/15/2024 12:06 AM CDT) POC Glucose 85 70 - 100 mg/dL [facility] - POINT OF CARE Blood 02/15/2024 12:0 6 AM CDT Humphrey Rose MD LABORATORY Performing Organization Address [facility] Co de Phone Number [facility] POINT OF [facility] [address] [place] [phone], [place] * POC GLUCOSE (02/14/2024 9:02 PM CDT) POC Glucose 74 70 - 100 mg/dL [facility] POINT OF CARE Blood 02/14/2024 9:02 PM CDT Humphrey Rose MD LABORATORY Performing Organization Address City/[facility] Co de Phone Number [facility] POINT OF CARE [address] [place] [phone], [place] * XR ABDOMEN 1 VIEW* (02/14/2024 [...] CDT) Lactate 1.1 0.7 - 2.1 mmol/L [facility] Blood 02/14/2024 5:01 PM CDT 02/14/2024 5:10 PM CDT Narrative [facility] - 02/14/2024 5:14 PM CDT Send specimen on ice! Ernestine Toribio MD LABORATORY [facility] [address] [id number] * POC GLUCOSE (02/14/2024 4:10 PM CDT) POC Glucose 92 70 - 100 mg/dL [facility] - POINT OF CARE Blood 02/14/2024 4:10 PM CDT Humphrey Rose MD LABORATORY [facility] - POINT OF CARE [address] [place] [address], [place] * POC GLUCOSE (02/14/2024 11:12 AM CDT) POC Glucose 85 70 - 100 mg/dL [facility] - POINT OF CARE Blood 02/14/2024 11:1 2 AM CDT Humphrey Rose MD LABORATORY Performing Organization Address [facility] Co de Phone Number [facility] - POINT OF CARE [address] [place] [address], [place] * XR ABDOMEN 1 VIEW* (02/14/2024 [...] CDT) Phosphorus 3.5 2.5 - 4.5 mg/dL [facility] Blood 02/14/2024 8:18 AM CDT 02/14/2024 9:14 AM CDT Ernestine Toribio MD LABORATORY Performing Organization Address City/[facility]/ZIP Co de Phone Number [facility] [address] [address] * MAGNESIUM (02/14/2024 8:18 AM CDT) Pathologist [facility] Magnesium 2.1 1.6 - 2.6 mg/dL [facility] Blood 02/14/2024 8:18 AM CDT 02/14/2024 9:14 AM CDT Ernestine Toribio MD LABORATORY [facility] [address] [address] * (ABNORMAL) PROTHROMBIN (PT) & INR (02/14/2024 8:18 AM CDT) PT 15.8(H) 9.0 - 12.5 sec [facility] INR 1.4(H) 0.8 - 1.1 [facility] Comment: Warfarin Therapeutic Range: Standard Intensity: 2.0 - 3.0 High Intensity: 2.5 - 3.5 Blood 02/14/2024 8:18 AM CDT 02/14/2024 9:13 AM CDT Ernestine Toribio MD LABORATORY Performing Organization Address [facility] Co de Phone Number [facility] [address] [address] * (ABNORMAL) CBC WITH PLATELET (02/14/2024 8:18 AM CDT) WBC 5.76 4.00 - 10.00 k/cmm [facility] RBC 3.00(L) 3.90 - 5.20 m/cmm [facility] Hgb 9.1(L) 11.5 - 15.7 g/dL [facility] Hematocrit 29.5(L) 34.0 - 45.0 % [facility] MCV 98.3 80.0 - 100.0 fL [facility] MCH 30.3 25.0 - 32.0 pg [facility] MCHC 30.8(L) 31.0 - 36.0 g/dL [facility] RDW 15.4(H) 11.5 - 14.5 % [facility] Plt 166 150 - 400 k/cmm [facility] MPV 10.0 6.5 - 12.5 fL [facility] Blood 02/14/2024 8:18 AM CDT 02/14/2024 9:14 AM CDT Ernestine Toribio MD LABORATORY Performing Organization Address City/[facility] Co de Phone Number [facility] [address] [address] * (ABNORMAL) PANEL HEPATIC FUNCTION (02/14/2024 8:18 AM CDT) Total Protein 6.6 6.4 - 8.3 g/dL [facility] Albumin 2.0(L) 3.8 - 5.1 g/dL [facility] Bili Total 0.8 <=1.2 mg/dL [facility] Bili Direct 0.3 <=0.3 mg/dL [facility] Alk Phos 146(H) 35 - 104 IU/L [facility] Comment:No reference range e stablished for patients <18 years old. ALT (SGPT) <5 <=33 IU/L [facility] AST(SGOT) 41(H) 5 - 40 IU/L [facility] Blood 02/14/2024 8:18 AM CDT 02/14/2024 9:14 AM CDT Ernestine Toribio MD LABORATORY Performing Organization Address [facility] Co de Phone Number [facility] [address] [address] * (ABNORMAL) PANEL BASIC METABOLIC (BMP) (02/14/2024 8:18 AM CDT) Sodium 128(L) 135 - 148 mEq/L [facility] Potassium 3.9 3.5 - 5.3 mEq/L [facility] Chloride 95 92 - 108 mEq/L [facility] CO2 25 22 - 30 mEq/L [facility] AnGap 8 8 - 16 mEq/L [facility] Glucose 78 70 - 100 mg/dL [facility] BUN 16 6 - 20 mg/dL [facility] Creatinine 0.58 0.50 - 1.00 mg/dL [facility] Calcium 7.6(L) 8.6 - 10.0 mg/dL [facility] eGFR (2020 CKD-EPI) 104 >=60 ml/min/1.7 3m2 [facility] Comment: The estimated glomerular filtration [...] Ernestine Toribio MD LABORATORY Performing Organization Address [facility] Co de Phone Number [facility] [address] [address] * POC GLUCOSE (02/14/2024 6:07 AM CDT) POC Glucose 75 70 - 100 mg/dL [facility] - POINT OF CARE Blood 02/14/2024 6:07 AM CDT Humphrey Rose MD LABORATORY Performing Organization Address City/[facility]/ZIP Co de Phone Number [facility] [address] [place] [address], [place] * POC GLUCOSE (02/13/2024 11:59 PM CDT) POC Glucose 93 70 - 100 mg/dL [facility] Blood 02/13/2024 11:5 9 PM CDT Humphrey Rose MD LABORATORY Performing Organization Address City/[facility]/ZIP Co de Phone Number [facility] [address] [place] [address], [place] * (ABNORMAL) POC GLUCOSE (02/13/2024 6:06 PM CDT) POC Glucose 108(H) 70 - 100 mg/dL [facility] Blood 02/13/2024 6:06 PM CDT Humphrey Rose MD LABORATORY Performing Organization Address [facility] Co de Phone Number [facility] [address] [place] [address], [place] * POC GLUCOSE (02/13/2024 11:46 AM CDT) POC Glucose 90 70 - 100 mg/dL [facility] Blood 02/13/2024 11:4 6 AM CDT Humphrey Rose MD LABORATORY Performing Organization Address City/[facility]/ZIP Co de Phone Number [facility] [address] [place] [address], [place] * (ABNORMAL) CBC WITH PLATELET (02/13/2024 9:06 AM CDT) WBC 4.84 4.00 - 10.00 k/cmm [facility] RBC 2.96(L) 3.90 - 5.20 m/cmm [facility] Hgb 8.9(L) 11.5 - 15.7 g/dL [facility] Hematocrit 28.1(L) 34.0 - 45.0 % [facility] MCV 94.9 80.0 - 100.0 fL [facility] MCH 30.1 25.0 - 32.0 pg [facility] MCHC 31.7 31.0 - 36.0 g/dL [facility] RDW 15.4(H) 11.5 - 14.5 % [facility] Plt 174 150 - 400 k/cmm [facility] MPV 9.9 6.5 - 12.5 fL [facility] Blood 02/13/2024 9:06 AM CDT 02/13/2024 9:28 AM CDT Ernestine Toribio MD LABORATORY [facility] [address] [address] * (ABNORMAL) PANEL BASIC METABOLIC (BMP) (02/13/2024 9:06 AM CDT) Sodium 131(L) 135 - 148 mEq/L [facility] Potassium 3.8 3.5 - 5.3 mEq/L [facility] Chloride 97 92 - 108 mEq/L [facility] CO2 27 22 - 30 mEq/L [facility] AnGap 7(L) 8 - 16 mEq/L [facility] Glucose 87 70 - 100 mg/dL [facility] BUN 16 6 - 20 mg/dL [facility] Creatinine 0.60 0.50 - 1.00 mg/dL [facility] Calcium 7.5(L) 8.6 - 10.0 mg/dL [facility] eGFR (2020 CKD-EPI) 103 >=60 ml/min/1.7 3m2 [facility] Comment: The estimated glomerular filtration [...] Ernestine Toribio MD LABORATORY Performing Organization Address City/[facility]/ZIP Co de Phone Number [facility] [address] [address] * (ABNORMAL) PANEL HEPATIC FUNCTION (02/13/2024 9:06 AM CDT) Total Protein 6.4 6.4 - 8.3 g/dL [facility] Albumin 2.1(L) 3.8 - 5.1 g/dL [facility] Bili Total 0.9 <=1.2 mg/dL [facility] Bili Direct 0.4(H) <=0.3 mg/dL [facility] Alk Phos 142(H) 35 - 104 IU/L [facility] Comment:No reference range e stablished for patients <18 years old. ALT (SGPT) <5 <=33 IU/L [facility] AST(SGOT) 36 5 - 40 IU/L [facility] Blood 02/13/2024 9:06 AM CDT 02/13/2024 9:28 AM CDT Ernestine Toribio MD LABORATORY Performing Organization Address [facility] Co de Phone Number [facility] [address] [address] * POC GLUCOSE (02/13/2024 6:07 AM CDT) POC Glucose 83 70 - 100 mg/dL [facility] - POINT OF CARE Blood 02/13/2024 6:07 AM CDT Humphrey Rose MD LABORATORY [facility] - POINT OF CARE [address] [place] [phone], * POC GLUCOSE (02/13/2024 12:05 AM CDT) POC Glucose 88 70 - 100 mg/dL [facility] POINT OF CARE Blood 02/13/2024 12:0 5 AM CDT Humphrey Rose MD LABORATORY Performing Organization Address City/[facility] Co de Phone Number [facility] [address] [place] [address], [place] * LACTATE (LACTIC ACID) (02/12/2024 8:15 PM CDT) Lactate 2.0 0.7 - 2.1 mmol/L [facility] Blood 02/12/2024 8:15 PM CDT 02/12/2024 8:36 PM CDT Narrative [facility] - 02/12/2024 8:41 PM CDT Send specimen on ice! Ernestine Toribio MD LABORATORY Performing Organization Address [facility] Co de Phone Number [facility] [address] [address] * (ABNORMAL) POC GLUCOSE (02/12/2024 5:56 PM CDT) POC Glucose 110(H) 70 - 100 mg/dL [facility] Blood 02/12/2024 5:56 PM CDT Humphrey Rose MD LABORATORY Performing Organization Address [facility] Co de Phone Number [facility] [address] [place] [phone], [place] * LACTATE (LACTIC ACID) (02/12/2024 2:45 PM CDT) Lactate 2.1 0.7 - 2.1 mmol/L [facility] Blood 02/12/2024 2:45 PM CDT 02/12/2024 3:00 PM CDT Narrative [facility] - 02/12/2024 3:05 PM CDT Send specimen on ice! Khloe Reyes PA-C LABORATORY Performing Organization Address City/[facility]/ZIP Co de Phone Number [facility] [address] [place] [address] * POC GLUCOSE (02/12/2024 12:49 PM CDT) POC Glucose 93 70 - 100 mg/dL [facility] POINT OF CARE Blood 02/12/2024 12:4 9 PM CDT Humphrey Rose MD LABORATORY Performing Organization Address [facility] Co de Phone Number [facility] POINT OF CARE [address] [place] [address], [place] * (ABNORMAL) POC GLUCOSE (02/12/2024 12:20 PM CDT) POC Glucose 64(L) 70 - 100 mg/dL [facility] Blood 02/12/2024 12:2 0 PM CDT Humphrey Rose MD LABORATORY Performing Organization Address [facility] Co de Phone Number [facility] [address] [place] [phone], [place] * XR ABDOMEN 1 VIEW* (02/12/2024 [...] LACTATE (LACTIC ACID) (02/12/2024 8:50 AM CDT) Pathologist [facility] Lactate 1.6 0.7 - 2.1 mmol/L [facility] Blood 02/12/2024 8:50 AM CDT 02/12/2024 9:13 AM CDT Narrative [facility] - 02/12/2024 9:20 AM CDT Send specimen on ice! Khloe Reyes PA-C LABORATORY [facility] [address] [address] * (ABNORMAL) CBC WITH PLATELET (02/12/2024 8:50 AM CDT) Pathologist [facility] WBC 5.15 4.00 - 10.00 k/cmm [facility] RBC 3.11(L) 3.90 - 5.20 m/cmm [facility] Hgb 9.4(L) 11.5 - 15.7 g/dL [facility] Hematocrit 29.4(L) 34.0 - 45.0 % [facility] MCV 94.5 80.0 - 100.0 fL [facility] MCH 30.2 25.0 - 32.0 pg [facility] MCHC 32.0 31.0 - 36.0 g/dL [facility] RDW 15.5(H) 11.5 - 14.5 % [facility] Plt 199 150 - 400 k/cmm [facility] MPV 9.7 6.5 - 12.5 fL [facility] Blood 02/12/2024 8:50 AM CDT 02/12/2024 9:10 AM CDT Ernestine Toribio MD LABORATORY [facility] [address] [address] * (ABNORMAL) PROTHROMBIN (PT) & INR (02/12/2024 8:50 AM CDT) Pathologist [facility] PT 18.7(H) 9.0 - 12.5 sec [facility] INR 1.7(H) 0.8 - 1.1 [facility] Comment: Warfarin Therapeutic Range: Standard Intensity: 2.0 - 3.0 High Intensity: 2.5 - 3.5 Blood 02/12/2024 8:50 AM CDT 02/12/2024 9:10 AM CDT Ernestine Toribio MD LABORATORY Performing Organization Address [facility] de Phone Number [facility] [address] [address] * (ABNORMAL) PANEL HEPATIC FUNCTION (02/12/2024 8:50 AM CDT) Total Protein 6.7 6.4 - 8.3 g/dL [facility] Albumin 2.3(L) 3.8 - 5.1 g/dL [facility] Bili Total 0.9 <=1.2 mg/dL [facility] Bili Direct 0.4(H) <=0.3 mg/dL [facility] Alk Phos 131(H) 35 - 104 IU/L [facility] Comment:No reference range e stablished for patients <18 years old. ALT (SGPT) <5 <=33 IU/L [facility] AST(SGOT) 35 5 - 40 IU/L [facility] Blood 02/12/2024 8:50 AM CDT 02/12/2024 9:10 AM CDT Ernestine Toribio MD LABORATORY Performing Organization Address [facility] de Phone Number [facility] [address] [address] * (ABNORMAL) PANEL BASIC METABOLIC (BMP) (02/12/2024 8:50 AM CDT) Sodium 130(L) 135 - 148 mEq/L [facility] Potassium 4.1 3.5 - 5.3 mEq/L [facility] Chloride 97 92 - 108 mEq/L [facility] CO2 27 22 - 30 mEq/L [facility] AnGap 6(L) 8 - 16 mEq/L [facility] Glucose 78 70 - 100 mg/dL [facility] BUN 16 6 - 20 mg/dL [facility] Creatinine 0.56 0.50 - 1.00 mg/dL [facility] Calcium 7.9(L) 8.6 - 10.0 mg/dL [facility] eGFR (2020 CKD-EPI) 105 >=60 ml/min/1.7 3m2 [facility] Comment: The estimated glomerular filtration [...] Ernestine Toribio MD LABORATORY Performing Organization Address City/[facility]/ZIP Co de Phone Number [facility] [place] [address] * POC GLUCOSE (02/12/2024 6:52 AM CDT) POC Glucose 73 70 - 100 mg/dL [facility]ARE Blood 02/12/2024 6:52 AM CDT Humphrey Rose MD LABORATORY Performing Organization Address City/[facility]/ZIP Co de Phone Number [facility] POINT OF CARE [address] [place] [address], * LACTATE (LACTIC ACID) (02/12/2024 2:54 AM CDT) Lactate 1.4 0.7 - 2.1 mmol/L [facility] Blood 02/12/2024 2:54 AM CDT 02/12/2024 3:08 AM CDT Narrative [facility] - 02/12/2024 3:12 AM CDT Send specimen on ice! Khloe Reyes PA-C LABORATORY Performing Organization Address City/[facility]/ZIP Co de Phone Number [address] [address] * POC GLUCOSE (02/11/2024 10:43 PM CDT) POC Glucose 94 70 - 100 mg/dL [facility] CARE Blood 02/11/2024 10:4 3 PM CDT Humphrey Rose MD LABORATORY [facility] POINT OF CARE [address] [place] [address], * COLONOSCOPY-DIAGNOSTIC (02/11/2024 9:24 PM CDT) 02/11/2024 9:24 PM CDT Narrative [facility] - 02/11/2024 10:18 PM CDT [...] bowel preparation was evaluated using the BBPS (Liberty Bowel Preparation Scale) with scores of: Right [...] previous GI consult note. Lukas Lambert MD, [id number] 02/11/2024 10:16:48 PM Number of Addenda: 0 Note Initiated On: 02/11/2024 9:24 PM Lukas Lambert MD GI LAB Performing Organization Address City/[facility]/ZIP Co de Phone Number [facility] * LACTATE (LACTIC ACID) (02/11/2024 8:51 PM CDT) Lactate 1.3 0.7 - 2.1 mmol/L [facility] Blood 02/11/2024 8:51 PM CDT 02/11/2024 8:57 PM CDT Narrative [facility] - 02/11/2024 9:00 PM CDT Send specimen on ice! Khloe Reyes PA-C LABORATORY Performing Organization Address [facility] Co de Phone Number [facility] [address] [address] * LACTATE (LACTIC ACID) (02/11/2024 7:56 PM CDT) Lactate 1.5 0.7 - 2.1 mmol/L [facility] Blood 02/11/2024 7:56 PM CDT 02/11/2024 8:25 PM CDT Narrative [facility] - 02/11/2024 8:28 PM CDT Send specimen on ice! Ernestine Toribio MD LABORATORY Performing Organization Address [facility] Co de Phone Number [facility] [address] [address] * CT ABDOMEN/PELVIS W/IV CON (02/11/2024 2:22 [...] as documented by the resident/fellow. Reading Radiologist: Yamsine Massey Reading Resident: Jay Álvarez 02/11/2024 8:24 [...] junction measures 7.1 cm in diameter (series [id number], image 84), compared to 4.6 cm on [...] rectosigmoid junction measures 7.1 cm in diameter(series [id number], image 84), compared to 4.6 cm on [...] by the resident/fellow. Reading Radiologist: Yasmine Massey Resident: Jay Álvarez Ernestine Toribio MD RAD [...] imaging for additional evaluation. Procedure Note Sameer Sexton, SIL - 02/11/2024 Technique: XR ABDOMEN 1 VIEW* [...] Total Protein 6.3(L) 6.4 - 8.3 g/dL [facility] Albumin 2.3(L) 3.8 - 5.1 g/dL [facility] Bili Total 0.9 <=1.2 mg/dL [facility] Bili Direct 0.4(H) <=0.3 mg/dL [facility] Alk Phos 126(H) 35 - 104 IU/L [facility] Comment:No reference range e stablished for patients <18 years old. ALT (SGPT) <5 <=33 IU/L [facility] AST(SGOT) 34 5 - 40 IU/L [facility] Blood 02/11/2024 7:25 AM CDT 02/11/2024 8:01 AM CDT Ernestine Toribio MD LABORATORY Performing Organization Address [facility] Co de Phone Number [facility] [address] [address] * (ABNORMAL) PROTHROMBIN (PT) & INR (02/11/2024 7:25 AM CDT) PT 23.0(H) 9.0 - 12.5 sec [facility] INR 2.0(H) 0.8 - 1.1 [facility] Comment: Warfarin Therapeutic Range: Standard Intensity: 2.0 - 3.0 High Intensity: 2.5 - 3.5 Blood 02/11/2024 7:25 AM CDT 02/11/2024 8:01 AM CDT Ernestine Toribio MD LABORATORY Performing Organization Address [facility] Co de Phone Number [facility] [address] [address] * (ABNORMAL) CBC WITH PLATELET (02/11/2024 7:25 AM CDT) WBC 5.83 4.00 - 10.00 k/cmm [facility] RBC 2.94(L) 3.90 - 5.20 m/cmm [facility] Hgb 8.8(L) 11.5 - 15.7 g/dL [facility] Hematocrit 28.0(L) 34.0 - 45.0 % [facility] MCV 95.2 80.0 - 100.0 fL [facility] MCH 29.9 25.0 - 32.0 pg [facility] MCHC 31.4 31.0 - 36.0 g/dL [facility] RDW 15.3(H) 11.5 - 14.5 % [facility] Plt 197 150 - 400 k/cmm [facility] MPV 10.0 6.5 - 12.5 fL [facility] Blood 02/11/2024 7:25 AM CDT 02/11/2024 8:01 AM CDT Ernestine Toribio MD LABORATORY Performing Organization Address [facility] Co de Phone Number [facility] [address] [address] * (ABNORMAL) PANEL BASIC METABOLIC (BMP) (02/11/2024 7:25 AM CDT) Pathologist [facility] CO2 28 22 - 30 mEq/L [facility] Glucose 84 70 - 100 mg/dL [facility] BUN 15 6 - 20 mg/dL [facility] Creatinine 0.56 0.50 - 1.00 mg/dL [facility] Calcium 7.6(L) 8.6 - 10.0 mg/dL [facility] Sodium 132(L) 135 - 148 mEq/L [facility] Potassium 4.2 3.5 - 5.3 mEq/L [facility] Chloride 98 92 - 108 mEq/L [facility] AnGap 6(L) 8 - 16 mEq/L [facility] eGFR (2020 CKD-EPI) 105 >=60 ml/min/1.7 3m2 [facility] Comment: The estimated glomerular filtration [...] Ernestine Toribio MD LABORATORY Performing Organization Address City/[facility]/ZIP Co de Phone Number [address] [address] * MAGNESIUM (02/11/2024 7:20 AM CDT) [facility] Magnesium 2.0 1.6 - 2.6 mg/dL [facility] Blood 02/11/2024 7:20 AM CDT 02/11/2024 7:42 PM CDT Ernestine Toribio MD LABORATORY [facility] [address] [address] * PHOSPHORUS (02/11/2024 7:20 AM CDT) Phosphorus 3.3 2.5 - 4.5 mg/dL [facility] Blood 02/11/2024 7:20 AM CDT 02/11/2024 7:42 PM CDT Ernestine Toribio MD LABORATORY Performing Organization Address [facility] Co de Phone Number [facility] [address] [address] * (ABNORMAL) PANEL HEPATIC FUNCTION (02/10/2024 7:06 AM CDT) Total Protein 6.6 6.4 - 8.3 g/dL [facility] Albumin 2.4(L) 3.8 - 5.1 g/dL [facility] Bili Total 1.0 <=1.2 mg/dL [facility] Bili Direct 0.4(H) <=0.3 mg/dL [facility] Alk Phos 132(H) 35 - 104 IU/L [facility] Comment:No reference range e stablished for patients <18 years old. ALT (SGPT) <5 <=33 IU/L [facility] AST(SGOT) 36 5 - 40 IU/L [facility] Blood 02/10/2024 7:06 AM CDT 02/10/2024 7:48 AM CDT Ernestine Toribio MD LABORATORY Performing Organization Address [facility] Co de Phone Number [facility] [address] [address] * (ABNORMAL) PROTHROMBIN (PT) & INR (02/10/2024 7:06 AM CDT) PT 28.4(H) 9.0 - 12.5 sec [facility] INR 2.5(H) 0.8 - 1.1 [facility] Comment: Warfarin Therapeutic Range: Standard Intensity: 2.0 - 3.0 High Intensity: 2.5 - 3.5 Blood 02/10/2024 7:06 AM CDT 02/10/2024 7:48 AM CDT Ernestine Toribio MD LABORATORY Performing Organization Address City/[facility]/ZIP Co de Phone Number [facility] [address] [address] * (ABNORMAL) CBC WITH PLATELET (02/10/2024 7:06 AM CDT) [facility] WBC 6.87 4.00 - 10.00 k/cmm [facility] RBC 3.11(L) 3.90 - 5.20 m/cmm [facility] Hgb 9.2(L) 11.5 - 15.7 g/dL [facility] Hematocrit 29.8(L) 34.0 - 45.0 % [facility] MCV 95.8 80.0 - 100.0 fL [facility] MCH 29.6 25.0 - 32.0 pg [facility] MCHC 30.9(L) 31.0 - 36.0 g/dL [facility] RDW 14.9(H) 11.5 - 14.5 % [facility] Plt 221 150 - 400 k/cmm [facility] MPV 10.1 6.5 - 12.5 fL [facility] Blood 02/10/2024 7:06 AM CDT 02/10/2024 7:48 AM CDT Ernestine Toribio MD LABORATORY Performing Organization Address City/[facility]/ZIP Co de Phone Number [facility] [address] [address] * MAGNESIUM (02/10/2024 7:06 AM CDT) [facility] Magnesium 2.1 1.6 - 2.6 mg/dL [facility] Blood 02/10/2024 7:06 AM CDT 02/10/2024 7:48 AM CDT Ernestine Toribio MD LABORATORY [facility] [address] [address] * (ABNORMAL) PANEL BASIC METABOLIC (BMP) (02/10/2024 7:06 AM CDT) Pathologist [facility] CO2 26 22 - 30 mEq/L [facility] Glucose 83 70 - 100 mg/dL [facility] BUN 14 6 - 20 mg/dL [facility] Creatinine 0.53 0.50 - 1.00 mg/dL [facility] Calcium 7.9(L) 8.6 - 10.0 mg/dL [facility] Sodium 132(L) 135 - 148 mEq/L [facility] Potassium 4.0 3.5 - 5.3 mEq/L [facility] Chloride 99 92 - 108 mEq/L [facility] AnGap 7(L) 8 - 16 mEq/L [facility] eGFR (2020 CKD-EPI) 106 >=60 ml/min/1.7 3m2 [facility] Comment: The estimated glomerular filtration rate (eGFR) was calculated using the CKD-EPI 2020 creatinine equation, which does not include race as a factor. This equation is validated in individuals 18 years of age and older, and eGFR is normalized to a body surface area of 1.73m^2. Blood 02/10/2024 7:06 AM CDT 02/10/2024 7:48 AM CDT Ernestine Toribio MD LABORATORY [address] [address] * VITAMIN D (25-OH) (02/10/2024 7:06 AM CDT) [facility] Vitamin D Total 25 Hydroxy 66 21 - 70 ng/mL [facility] Comment: Result Interpretation: <=20 ng/mL ?? Vitamin D Deficient 21-29 ng/mL ??Vitamin D Insufficient Blood 02/10/2024 7:06 AM CDT 02/10/2024 7:48 AM CDT Ileana Blanco APRN, CNP LABORATORY [address] [address] * POC GLUCOSE (02/10/2024 6:15 AM CDT) Pathologist [facility] POC Glucose 91 70 - 100 mg/dL [facility] Blood 02/10/2024 6:15 AM CDT Humphrey Rose MD LABORATORY [facility] [address] [place] [address], [place] * POC GLUCOSE (02/09/2024 11:04 PM CDT) POC Glucose 90 70 - 100 mg/dL [facility] Blood 02/09/2024 11:0 4 PM CDT Humphrey Rose MD LABORATORY Performing Organization Address City/[facility]/ZIP Co de Phone Number [facility] [address] [place] [address], [place] * POC GLUCOSE (02/09/2024 6:42 AM CDT) POC Glucose 85 70 - 100 mg/dL [facility] Blood 02/09/2024 6:42 AM CDT Humphrey Rose MD LABORATORY Performing Organization Address City/[facility] Co de Phone Number [facility] [address] [place] [address], [place] * POC GLUCOSE (02/08/2024 11:51 PM CDT) POC Glucose 94 70 - 100 mg/dL [facility] Blood 02/08/2024 11:5 1 PM CDT Humphrey Rose MD LABORATORY [facility] [address] [place] [address], [place] * (ABNORMAL) POC GLUCOSE (02/08/2024 5:58 PM CDT) POC Glucose 135(H) 70 - 100 mg/dL [facility] - [facility] CARE Blood 02/08/2024 5:58 PM CDT Humphrey Rose MD LABORATORY Performing Organization Address [facility] Co de Phone Number [facility] - [facility] CARE [address] [place] [address], [place] * POC GLUCOSE (02/08/2024 12:30 PM CDT) POC Glucose 82 70 - 100 mg/dL [facility] Blood 02/08/2024 12:3 0 PM CDT Humphrey Rose MD LABORATORY Performing Organization Address [facility] Co de Phone Number [facility] [address] [place] [address], [place] * IR PARACENTESIS (02/08/2024 11:45 AM [...] to verify the correct patient, procedure, equipment, business support and site/side marked as required. Initial [...] CDT) PT 29.3(H) 9.0 - 12.5 sec [facility] INR 2.6(H) 0.8 - 1.1 [facility] Comment: Warfarin Therapeutic Range: Standard Intensity: 2.0 - 3.0 High Intensity: 2.5 - 3.5 Blood 02/08/2024 8:19 AM CDT 02/08/2024 8:35 AM CDT Autumn Jerome MD LABORATORY Performing Organization Address [facility] Co de Phone Number [facility] [address] [address] * (ABNORMAL) PANEL HEPATIC FUNCTION (02/08/2024 8:19 AM CDT) Total Protein 6.1(L) 6.4 - 8.3 g/dL [facility] Albumin 2.5(L) 3.8 - 5.1 g/dL [facility] Bili Total 1.0 <=1.2 mg/dL [facility] Bili Direct 0.5(H) <=0.3 mg/dL [facility] Alk Phos 125(H) 35 - 104 IU/L [facility] Comment:No reference range e stablished for patients <18 years old. ALT (SGPT) 6 <=33 IU/L [facility] AST(SGOT) 30 5 - 40 IU/L [facility] Blood 02/08/2024 8:19 AM CDT 02/08/2024 8:35 AM CDT Autumn Jerome MD LABORATORY Performing Organization Address [facility] Co de Phone Number [facility] [address] [address] * (ABNORMAL) PANEL BASIC METABOLIC (BMP) (02/08/2024 8:19 AM CDT) Sodium 134(L) 135 - 148 mEq/L [facility] Potassium 3.8 3.5 - 5.3 mEq/L [facility] CO2 29 22 - 30 mEq/L [facility] AnGap 5(L) 8 - 16 mEq/L [facility] Glucose 91 70 - 100 mg/dL [facility] BUN 9 6 - 20 mg/dL [facility] Creatinine 0.59 0.50 - 1.00 mg/dL [facility] Chloride 100 92 - 108 mEq/L [facility] Calcium 8.1(L) 8.6 - 10.0 mg/dL [facility] eGFR (2020 CKD-EPI) 104 >=60 ml/min/1.7 3m2 [facility] Comment: The estimated glomerular filtration [...] Autumn Jerome MD LABORATORY Performing Organization Address [facility] [place] [address] * (ABNORMAL) POC GLUCOSE (02/07/2024 6:41 PM CDT) POC Glucose 134(H) 70 - 100 mg/dL [facility] Blood 02/07/2024 6:41 PM CDT Humphrey Rose MD LABORATORY Performing Organization Address [facility] de Phone Number [facility] [place] [address], * POC GLUCOSE (02/07/2024 12:24 PM CDT) POC Glucose 99 70 - 100 mg/dL [facility] Blood 02/07/2024 12:2 4 PM CDT Humphrey Rose MD LABORATORY Performing Organization Address [facility] Co de Phone Number [facility] [place] [address], * PHOSPHORUS (02/07/2024 6:05 AM CDT) Phosphorus 3.2 2.5 - 4.5 mg/dL [facility] Blood 02/07/2024 6:05 AM CDT 02/07/2024 7:28 AM CDT Autumn Jerome MD LABORATORY Performing Organization Address City/[facility] Co de Phone Number [facility] [address] [address] * MAGNESIUM (02/07/2024 6:05 AM CDT) Magnesium 2.0 1.6 - 2.6 mg/dL [facility] Blood 02/07/2024 6:05 AM CDT 02/07/2024 7:28 AM CDT Autumn Jerome MD LABORATORY Performing Organization Address City/[facility]/ZIP Co de Phone Number [facility] [address] [address] * (ABNORMAL) PANEL HEPATIC FUNCTION (02/07/2024 6:05 AM CDT) Total Protein 5.7(L) 6.4 - 8.3 g/dL [facility] Albumin 2.3(L) 3.8 - 5.1 g/dL [facility] Bili Total 0.9 <=1.2 mg/dL [facility] Bili Direct na <=0.3 mg/dL [facility] Comment:BILID = 0.4. Accurac y of result suspect due to hemolysis. Alk Phos 116(H) 35 - 104 IU/L [facility] Comment:No reference range e stablished for patients <18 years old. ALT (SGPT) 9 <=33 IU/L [facility] AST(SGOT) na 5 - 40 IU/L [facility] Comment:AST = 37. Accuracy o f result suspect due to hemolysis. Blood 02/07/2024 6:05 AM CDT 02/07/2024 7:28 AM CDT Autumn Jerome MD LABORATORY Performing Organization Address City/[facility]/ZIP Co de Phone Number [facility] [address] [address] * (ABNORMAL) CBC WITH PLATELET (02/07/2024 6:05 AM CDT) WBC 9.53 4.00 - 10.00 k/cmm [facility] RBC 3.19(L) 3.90 - 5.20 m/cmm [facility] Hgb 9.5(L) 11.5 - 15.7 g/dL [facility] Hematocrit 29.8(L) 34.0 - 45.0 % [facility] MCV 93.4 80.0 - 100.0 fL [facility] MCH 29.8 25.0 - 32.0 pg [facility] MCHC 31.9 31.0 - 36.0 g/dL [facility] RDW 13.7 11.5 - 14.5 % [facility] Plt 149(L) 150 - 400 k/cmm [facility] MPV 11.1 6.5 - 12.5 fL [facility] NRBC 0.3(H) 0.0 - 0.0 /100WBC [facility] Blood 02/07/2024 6:05 AM CDT 02/07/2024 7:26 AM CDT Autumn Jerome MD LABORATORY [facility] [address] [address] * (ABNORMAL) PANEL BASIC METABOLIC (BMP) (02/07/2024 6:05 AM CDT) CO2 23 22 - 30 mEq/L [facility] AnGap 10 8 - 16 mEq/L [facility] Glucose 87 70 - 100 mg/dL [facility] Creatinine 0.58 0.50 - 1.00 mg/dL [facility] Potassium 5.2 3.5 - 5.3 mEq/L [facility] eGFR (2020 CKD-EPI) 104 >=60 ml/min/1.7 3m2 [facility] Comment: The estimated glomerular filtration rate (eGFR) was calculated using the CKD-EPI 2020 creatinine equation, which does not include race as a factor. This equation is validated in individuals 18 years of age and older, and eGFR is normalized to a body surface area of 1.73m^2. Sodium 135 135 - 148 mEq/L [facility] BUN 11 6 - 20 mg/dL [facility] Calcium 7.9(L) 8.6 - 10.0 mg/dL [facility] Chloride 102 92 - 108 mEq/L [facility] Blood 02/07/2024 6:05 AM CDT 02/07/2024 7:28 AM CDT Autumn Jerome MD LABORATORY Performing Organization Address [facility] Co de Phone Number [facility] [place] [address] * (ABNORMAL) POC GLUCOSE (02/06/2024 6:08 PM CDT) POC Glucose 124(H) 70 - 100 mg/dL [facility] CARE Blood 02/06/2024 6:08 PM CDT Humphrey Rose MD LABORATORY Performing Organization Address [facility] Co de Phone Number [facility] POINT OF [address] [address], [place] * POC GLUCOSE (02/06/2024 11:57 AM CDT) POC Glucose 98 70 - 100 mg/dL [facility] Blood 02/06/2024 11:5 7 AM CDT Humphrey Rose MD LABORATORY Performing Organization Address [facility] Co de Phone Number [facility] POINT OF [address] [address], [place] * (ABNORMAL) PROTHROMBIN (PT) & INR (02/06/2024 7:10 AM CDT) PT 18.3(H) 9.0 - 12.5 sec [facility] INR 1.6(H) 0.8 - 1.1 [facility] Comment: Warfarin Therapeutic Range: Standard Intensity: 2.0 - 3.0 High Intensity: 2.5 - 3.5 Blood 02/06/2024 7:10 AM CDT 02/06/2024 7:28 AM CDT Autumn Jerome MD LABORATORY Performing Organization Address City/[facility] Co de Phone Number [facility] [address] [address] * (ABNORMAL) PANEL HEPATIC FUNCTION (02/06/2024 7:10 AM CDT) Pathologist [facility] Total Protein 5.6(L) 6.4 - 8.3 g/dL [facility] Albumin 2.3(L) 3.8 - 5.1 g/dL [facility] Bili Total 0.8 <=1.2 mg/dL [facility] Bili Direct 0.4(H) <=0.3 mg/dL [facility] Alk Phos 101 35 - 104 IU/L [facility] Comment:No reference range e stablished for patients <18 years old. ALT (SGPT) 12 <=33 IU/L [facility] AST(SGOT) 33 5 - 40 IU/L [facility] Blood 02/06/2024 7:10 AM CDT 02/06/2024 7:28 AM CDT Autumn Jerome MD LABORATORY [facility] [address] [address] * (ABNORMAL) PANEL BASIC METABOLIC (BMP) (02/06/2024 7:10 AM CDT) [facility] CO2 26 22 - 30 mEq/L [facility] AnGap 5(L) 8 - 16 mEq/L [facility] Glucose 105(H) 70 - 100 mg/dL [facility] Creatinine 0.61 0.50 - 1.00 mg/dL [facility] Sodium 135 135 - 148 mEq/L [facility] Potassium 4.4 3.5 - 5.3 mEq/L [facility] eGFR (2020 CKD-EPI) 103 >=60 ml/min/1.7 3m2 [facility] Comment: The estimated glomerular filtration rate (eGFR) was calculated using the CKD-EPI 2020 creatinine equation, which does not include race as a factor. This equation is validated in individuals 18 years of age and older, and eGFR is normalized to a body surface area of 1.73m^2. BUN 11 6 - 20 mg/dL [facility] Calcium 8.1(L) 8.6 - 10.0 mg/dL [facility] Chloride 104 92 - 108 mEq/L [facility] Blood 02/06/2024 7:10 AM CDT 02/06/2024 7:28 AM CDT Lia Mcclellan PA-C LABORATORY [facility] [address] [address] * (ABNORMAL) HEMOGLOBIN (02/06/2024 7:10 AM CDT) Hgb 8.8(L) 11.5 - 15.7 g/dL [facility] Blood 02/06/2024 7:10 AM CDT 02/06/2024 7:28 AM CDT Lia ENNIS-Yeni LABORATORY Performing Organization Address City/[facility]/ZIP Co de Phone Number [facility] [address] [address] * (ABNORMAL) POC GLUCOSE (02/06/2024 6:06 AM CDT) POC Glucose 119(H) 70 - 100 mg/dL [facility] C[facility] Blood 02/06/2024 6:06 AM CDT Humphrey Rose MD LABORATORY Performing Organization Address City/[facility]/ZIP Co de Phone Number [facility] - POINT OF [address] [address], [place] * (ABNORMAL) POC GLUCOSE (02/06/2024 12:09 AM CDT) POC Glucose 102(H) 70 - 100 mg/dL [facility] - POINT OF CARE Blood 02/06/2024 12:0 9 AM CDT Humphrey Rose MD LABORATORY [facility] POINT OF [address] [address], [place] * (ABNORMAL) POC GLUCOSE (02/05/2024 3:57 PM CDT) POC Glucose 112(H) 70 - 100 mg/dL [facility] CARE Blood 02/05/2024 3:57 PM CDT Humphrey Rose MD LABORATORY [facility] - POINT OF CARE [address] [place] [address], [place] * XR C ARM OVER 3 [...] ADMIN) (02/05/2024 1:19 PM CDT) Unit Number [id number] [facility] Product Code [id number] [facility] Blood Expiration Date [id number] [facility] Blood Type 6200 [facility] Blood Type (TEXT) APOS [facility] Other 02/05/2024 1:19 PM CDT 02/05/2024 1:16 PM CDT Marcus Hanna MD BLOOD BANK ORDERABLE S (BLOOD ADMIN) Performing Organization Address [facility] Co de Phone Number [facility] [place] [address] * POC GLUCOSE (02/05/2024 11:21 AM CDT) POC Glucose 92 70 - 100 mg/dL [facility] Blood 02/05/2024 11:2 1 AM CDT Humphrey Rose MD LABORATORY Performing Organization Address [facility]/ZIP Co de Phone Number [facility] POINT OF CARE [address] [place] [address] * WOUND CULTURE:GRAM STAIN OPTIONAL (02/05/2024 10:00 AM CDT) Final Report Duplicate order. Patient account credited. [facility] Gram Stain Report Few PMN's seen. No organisms seen. [facility] Swab STRUCTURE OF RIGHT FOOT / Unknown 02/05/2024 10:00 AM CDT 02/05/2024 10:25 AM CDT Narrative [facility] - 02/05/2024 2:53 PM CDT Purulent drainage. Gram Stain please, aerobic, anaerobic Do you want a gram stain: Yes Autumn Jerome MD LAB MICROBIOLOGY Performing Organization Address [facility] Co de Phone Number [facility] [address] [address] * (ABNORMAL) PROTHROMBIN (PT) & INR (02/05/2024 9:15 AM CDT) PT 16.9(H) 9.0 - 12.5 sec [facility] INR 1.5(H) 0.8 - 1.1 [facility] Comment: Warfarin Therapeutic Range: Standard Intensity: 2.0 - 3.0 High Intensity: 2.5 - 3.5 Blood 02/05/2024 9:15 AM CDT 02/05/2024 9:43 AM CDT Autumn Jerome MD LABORATORY Performing Organization Address [facility] Co de Phone Number [facility] [address] [address] * (ABNORMAL) PANEL HEPATIC FUNCTION (02/05/2024 9:15 AM CDT) Total Protein 5.5(L) 6.4 - 8.3 g/dL [facility] Albumin 2.2(L) 3.8 - 5.1 g/dL [facility] Bili Total 0.7 <=1.2 mg/dL [facility] Bili Direct 0.4(H) <=0.3 mg/dL [facility] Alk Phos 101 35 - 104 IU/L [facility] Comment:No reference range e stablished for patients <18 years old. ALT (SGPT) 13 <=33 IU/L [facility] AST(SGOT) 33 5 - 40 IU/L [facility] Blood 02/05/2024 9:15 AM CDT 02/05/2024 9:43 AM CDT Autumn Jerome MD LABORATORY [facility] [address] [address] * (ABNORMAL) CBC WITH PLATELET (02/05/2024 9:15 AM CDT) WBC 5.51 4.00 - 10.00 k/cmm [facility] RBC 3.11(L) 3.90 - 5.20 m/cmm [facility] Hgb 9.4(L) 11.5 - 15.7 g/dL [facility] Hematocrit 28.9(L) 34.0 - 45.0 % [facility] MCV 92.9 80.0 - 100.0 fL [facility] MCH 30.2 25.0 - 32.0 pg [facility] MCHC 32.5 31.0 - 36.0 g/dL [facility] RDW 13.4 11.5 - 14.5 % [facility] Plt 164 150 - 400 k/cmm [facility] MPV 10.2 6.5 - 12.5 fL [facility] Blood 02/05/2024 9:15 AM CDT 02/05/2024 9:43 AM CDT Autumn Jerome MD LABORATORY [facility] [address] [address] * (ABNORMAL) PANEL BASIC METABOLIC (BMP) (02/05/2024 9:15 AM CDT) CO2 25 22 - 30 mEq/L [facility] Glucose 112(H) 70 - 100 mg/dL [facility] BUN 12 6 - 20 mg/dL [facility] Creatinine 0.62 0.50 - 1.00 mg/dL [facility] Calcium 7.8(L) 8.6 - 10.0 mg/dL [facility] Sodium 134(L) 135 - 148 mEq/L [facility] Potassium 4.1 3.5 - 5.3 mEq/L [facility] Chloride 102 92 - 108 mEq/L [facility] AnGap 7(L) 8 - 16 mEq/L [facility] eGFR (2020 CKD-EPI) 103 >=60 ml/min/1.7 3m2 [facility] Comment: The estimated glomerular filtration [...] Autumn Jerome MD LABORATORY Performing Organization Address City/[facility]/ZIP Co de Phone Number [facility] [place] [address] * (ABNORMAL) POC GLUCOSE (02/05/2024 6:02 AM CDT) POC Glucose 106(H) 70 - 100 mg/dL [facility] Blood 02/05/2024 6:02 AM CDT Humphrey Rose MD LABORATORY Performing Organization Address [place]/[facility] Co de Phone Number [facility] [address] * (ABNORMAL) POC GLUCOSE (02/04/2024 11:58 PM CDT) POC Glucose 122(H) 70 - 100 mg/dL [facility] Blood 02/04/2024 11:5 8 PM CDT Humphrey Rose MD LABORATORY Performing Organization Address [place]/[facility] [facility] Co de Phone Number [facility] [address] * (ABNORMAL) ANAEROBE CULTURE (02/04/2024 10:44 PM CDT) Final Report Few Enterococcus faecalis isolated. No anaerobes isolated. (POS) [facility] Organism ENTEROCOCCUS FAECALIS(POS) [facility] Swab STRUCTURE OF RIGHT FOOT / Unknown 02/04/2024 10:44 PM CDT 02/05/2024 9:20 AM CDT Autumn Jerome MD LAB MICROBIOLOGY Performing Organization Address [facility]/ZIP Co de Phone Number [facility] [address] [address] * (ABNORMAL) WOUND CULTURE:GRAM STAIN OPTIONAL (02/04/2024 10:44 PM CDT) Final Report Moderate Methicillin sensitive Staphylococcus aureus (MSSA) isolated. Methicillin susceptible by PBP2a. Rare Staphylococcus epidermidis isolated. (POS) [facility] Organism METHICILLIN SENSITIVE STAPHYLOCOCCUS AUREUS (MSSA)(POS) [facility] Organism STAPHYLOCOCCUS EPIDERMIDIS(POS) [facility] Gram Stain Report Few PMN's seen. No organisms seen. [facility] Swab STRUCTURE OF RIGHT FOOT / Unknown 02/04/2024 10:44 PM CDT 02/05/2024 9:20 AM CDT Narrative [facility] - 02/07/2024 9:52 AM CDT [...] Jerome MD LAB MICROBIOLOGY Performing Organization Address City/[facility]/ZIP Co de Phone Number [facility] [address] [place] [id number] * HELD MICRO SPECIMEN (02/04/2024 10:44 PM CDT) Final Report Microbiology specimen received in lab with no orders. Add-on order must be placed within 24 hours. If no orders placed, specimen will be discarded. [facility] Swab STRUCTURE OF RIGHT FOOT / Unknown 02/04/2024 10:44 PM CDT 02/04/2024 10:45 PM CDT Narrative [facility] - 02/04/2024 10:46 PM CDT Epic message sent to Autumn Jerome at 02/04/2024 22:46:13 CDT by Solitario Mckinnon MLS. Autumn Jerome MD LAB MICROBIOLOGY Performing Organization Address City/[facility]/ZIP Co de Phone Number [facility] [place] [address] * POC GLUCOSE (02/04/2024 9:50 PM CDT) POC Glucose 94 70 - 100 mg/dL [facility] CARE Blood 02/04/2024 9:50 PM CDT Humphrey Rose MD LABORATORY Performing Organization Address City/[facility]/ZIP Co de Phone Number [facility] CARE [address] [place] [address] * BLOOD AEROBIC/ANAEROBIC CULTURE (02/04/2024 6:44 PM CDT) Final Report No growth after 5 days. [facility] Blood (Peripheral) 02/04/2024 6:44 PM CDT 02/04/2024 10:14 PM CDT Autumn Jerome MD LAB MICROBIOLOGY Performing Organization Address City/[facility]/ZIP Co de Phone Number [facility] [place] [address] * BLOOD AEROBIC/ANAEROBIC CULTURE (02/04/2024 6:44 PM CDT) Final Report No growth after 5 days. [facility] Blood (Peripheral) 02/04/2024 6:44 PM CDT 02/04/2024 10:14 PM CDT Autumn Jerome MD LAB MICROBIOLOGY Performing Organization Address [facility] Co de Phone Number [address] [address] * POTASSIUM (02/04/2024 1:17 PM CDT) Pathologist [facility] Potassium 4.3 3.5 - 5.3 mEq/L [facility] Blood 02/04/2024 1:17 PM CDT 02/04/2024 1:33 PM CDT Autumn Jerome MD LABORATORY Performing Organization Address [facility] Co de Phone Number [facility] [address] [address] * ANTIBODY SCREEN (02/04/2024 1:17 PM CDT) Pathologist [facility] Nicky Screen Negative [facility] Blood 02/04/2024 1:17 PM CDT 02/04/2024 1:34 PM CDT Solitario Ha APRN, CRNA LAB TRANSFUSI ON SERVICES Performing Organization Address [facility] Co de Phone Number [address] [address] * BLOOD TYPING-ABO/RH (02/04/2024 1:17 PM CDT) Pathologist [facility] ABORHG A POS [facility] Blood 02/04/2024 1:17 PM CDT 02/04/2024 1:34 PM CDT Solitario Ha APRN, CRNA LAB TRANSFUSI ON SERVICES Performing Organization Address [facility] Co de Phone Number [facility] [address] [address] * (ABNORMAL) PROTHROMBIN (PT) & INR (02/04/2024 6:40 AM CDT) [facility] PT 16.2(H) 9.0 - 12.5 sec [facility] INR 1.4(H) 0.8 - 1.1 [facility] Comment: Warfarin Therapeutic Range: Standard Intensity: 2.0 - 3.0 High Intensity: 2.5 - 3.5 Blood 02/04/2024 6:40 AM CDT 02/04/2024 8:27 AM CDT Autumn Jerome MD LABORATORY Performing Organization Address [facility] Co de Phone Number [facility] [address] [address] * (ABNORMAL) PANEL HEPATIC FUNCTION (02/04/2024 6:40 AM CDT) [facility] Total Protein 5.5(L) 6.4 - 8.3 g/dL [facility] Albumin 2.2(L) 3.8 - 5.1 g/dL [facility] Bili Total 0.8 <=1.2 mg/dL [facility] Bili Direct 0.5(H) <=0.3 mg/dL [facility] Alk Phos 96 35 - 104 IU/L [facility] Comment:No reference range e stablished for patients <18 years old. ALT (SGPT) 15 <=33 IU/L [facility] AST(SGOT) 37 5 - 40 IU/L [facility] Blood 02/04/2024 6:40 AM CDT 02/04/2024 8:27 AM CDT Autumn Jerome MD LABORATORY Performing Organization Address [facility] Co de Phone Number [facility] [address] [address] * (ABNORMAL) CBC WITH PLATELET (02/04/2024 6:40 AM CDT) [facility] WBC 4.55 4.00 - 10.00 k/cmm [facility] RBC 3.03(L) 3.90 - 5.20 m/cmm [facility] Hgb 9.2(L) 11.5 - 15.7 g/dL [facility] Hematocrit 28.8(L) 34.0 - 45.0 % [facility] MCV 95.0 80.0 - 100.0 fL [facility] MCH 30.4 25.0 - 32.0 pg [facility] MCHC 31.9 31.0 - 36.0 g/dL [facility] RDW 13.6 11.5 - 14.5 % [facility] Plt 152 150 - 400 k/cmm [facility] MPV 10.9 6.5 - 12.5 fL [facility] Blood 02/04/2024 6:40 AM CDT 02/04/2024 8:27 AM CDT Autumn Jerome MD LABORATORY Performing Organization Address City/[facility]/ZIP Co de Phone Number [facility] [address] [address] * (ABNORMAL) PANEL BASIC METABOLIC (BMP) (02/04/2024 6:40 AM CDT) CO2 26 22 - 30 mEq/L [facility] Glucose 76 70 - 100 mg/dL [facility] BUN 12 6 - 20 mg/dL [facility] Creatinine 0.64 0.50 - 1.00 mg/dL [facility] Calcium 7.9(L) 8.6 - 10.0 mg/dL [facility] Sodium 136 135 - 148 mEq/L [facility] Potassium 3.4(L) 3.5 - 5.3 mEq/L [facility] Chloride 102 92 - 108 mEq/L [facility] AnGap 8 8 - 16 mEq/L [facility] eGFR (2020 CKD-EPI) 102 >=60 ml/min/1.7 3m2 [facility] Comment: The estimated glomerular filtration [...] Autumn Jerome MD LABORATORY Performing Organization Address City/[facility]/ZIP Co de Phone Number [facility] [address] [address] * (ABNORMAL) BLOOD AEROBIC/ANAEROBIC CULTURE (02/03/2024 12:13 PM CDT) Final Report Positive Blood Culture Gram stain result called to and read back by: Dr. Autumn Jerome with [facility] [place] at 02/04/2024 14:23:58 by Leidy Mayer MLS([facility]) SM. Bacillus species not anthracis isolated from aerobic bottle only. Organism identified 02/05/2024 11:47:27 No susceptibility done. Plates held one week. (POS) [facility] Organism BACILLUS SPECIES NOT ANTHRACIS(POS) [facility] Blood (Peripheral) 02/03/2024 12:13 PM CDT 02/03/2024 1:03 PM CDT Autumn Jerome MD LAB MICROBIOLOGY Performing Organization Address [facility] Co de Phone Number [facility] [address] [address] * BLOOD AEROBIC/ANAEROBIC CULTURE (02/03/2024 12:06 PM CDT) Final Report No growth after 5 days. [facility] Blood (Peripheral) 02/03/2024 12:06 PM CDT 02/03/2024 1:03 PM CDT Autumn Jerome MD LAB MICROBIOLOGY Performing Organization Address [facility] Co de Phone Number [facility] [address] [address] * (ABNORMAL) PROTHROMBIN (PT) & INR (02/03/2024 8:03 AM CDT) PT 19.8(H) 9.0 - 12.5 sec [facility] INR 1.8(H) 0.8 - 1.1 [facility] Comment: Warfarin Therapeutic Range: Standard Intensity: 2.0 - 3.0 High Intensity: 2.5 - 3.5 Blood 02/03/2024 8:03 AM CDT 02/03/2024 8:48 AM CDT Enedina Austin MD LABORATORY Performing Organization Address [facility] Co de Phone Number [facility] [address] [address] * (ABNORMAL) PANEL HEPATIC FUNCTION (02/03/2024 8:03 AM CDT) Total Protein 5.5(L) 6.4 - 8.3 g/dL [facility] Albumin 2.2(L) 3.8 - 5.1 g/dL [facility] Bili Total 0.9 <=1.2 mg/dL [facility] Bili Direct 0.5(H) <=0.3 mg/dL [facility] Alk Phos 98 35 - 104 IU/L [facility] Comment:No reference range e stablished for patients <18 years old. ALT (SGPT) 16 <=33 IU/L [facility] AST(SGOT) 36 5 - 40 IU/L [facility] Blood 02/03/2024 8:03 AM CDT 02/03/2024 8:48 AM CDT Enedina Austin MD LABORATORY Performing Organization Address [facility] Co de Phone Number [facility] [address] [address] * (ABNORMAL) PANEL BASIC METABOLIC (BMP) (02/03/2024 8:03 AM CDT) CO2 25 22 - 30 mEq/L [facility] Glucose 95 70 - 100 mg/dL [facility] BUN 10 6 - 20 mg/dL [facility] Creatinine 0.70 0.50 - 1.00 mg/dL [facility] Calcium 7.5(L) 8.6 - 10.0 mg/dL [facility] Sodium 133(L) 135 - 148 mEq/L [facility] Potassium 3.4(L) 3.5 - 5.3 mEq/L [facility] Chloride 100 92 - 108 mEq/L [facility] AnGap 8 8 - 16 mEq/L [facility] eGFR (2020 CKD-EPI) 100 >=60 ml/min/1.7 3m2 [facility] Comment: The estimated glomerular filtration rate (eGFR) was calculated using the CKD-EPI 2020 creatinine equation, which does not include race as a factor. This equation is validated in individuals 18 years of age and older, and eGFR is normalized to a body surface area of 1.73m^2. Blood 02/03/2024 8:03 AM CDT 02/03/2024 8:48 AM CDT Enedina Austin MD LABORATORY [facility] [address] [address] * (ABNORMAL) CBC WITH PLTS/AUTO DIFF (02/03/2024 8:03 AM CDT) WBC 5.74 4.00 - 10.00 k/cmm [facility] RBC 3.08(L) 3.90 - 5.20 m/cmm [facility] Hgb 9.4(L) 11.5 - 15.7 g/dL [facility] Hematocrit 28.1(L) 34.0 - 45.0 % [facility] MCV 91.2 80.0 - 100.0 fL [facility] MCH 30.5 25.0 - 32.0 pg [facility] MCHC 33.5 31.0 - 36.0 g/dL [facility] RDW 13.6 11.5 - 14.5 % [facility] Plt 155 150 - 400 k/cmm [facility] MPV 10.6 6.5 - 12.5 fL [facility] Automated Abs Neutrophil 4.49 1.70 - 6.50 k/cmm [facility] Comment:Preliminary ANC, Fin al Result to Follow Abs Immature Granulocyte 0.02 0.00 - 0.09 k/cmm [facility] Comment:The Immature Granulo cyte Absolute count contains metamyelocytes and myelocytes. Abs Neutrophil 4.49 1.70 - 6.50 k/cmm [facility] Abs Lymphocyte 0.69(L) 0.80 - 4.00 k/cmm [facility] Abs Monocyte 0.53 0.20 - 1.00 k/cmm [facility] Abs Eosinophil 0.00 0.00 - 0.60 k/cmm [facility] Abs Basophil 0.01 0.00 - 0.20 k/cmm [facility] Blood 02/03/2024 8:03 AM CDT 02/03/2024 8:48 AM CDT Enedina Austin MD LABORATORY [facility] [address] [address] * CT RIGHT FEMUR NO IV CONTRAST (02/02/2024 10:19 PM CDT) Anatomical Region Laterality Modality Lower Extremity Computed Tomogra phy 02/02/2024 10:1 4 PM CDT Addenda Addendum by Carter Reyes MD on 02/02/2024 10:29 PM CDT ADDENDUM: 3-D reconstructions were created by the senior technologist on the CT scanner and reviewed [...] perforation and infection ??Alternatives discussed: ??No treatment [place] protocol: ??Patient identity confirmed: ??Verbally with patient [...] ??Analgesia without sedation, anxiolysis and regional anesthesia [place] protocol: ??Procedure explained and questions answered to [...] vital sign checks, continuous pulse oximetry and management development specialist ??Intra-procedure events: respiratory depression ?Intra-procedure management: ??Airway [...] BODY FLUID (02/02/2024 7:51 PM CDT) Pathologist [facility] Result 1.3 [facility] Units BF g/dL [facility] Comment:The reference interv al(s) and other method performance specifications have not been established for this body fluid. The test result must be integrated into the clinical context for interpretation. Fluid 02/02/2024 7:51 PM CDT 02/02/2024 8:11 PM CDT Narrative [facility] - 02/02/2024 9:01 PM CDT fluid: Peritoneal Test: TP Humphrey Rose MD LABORATORY [facility] [address] [place] [id number] * BODY FLUID CULTURE:INCLUDES GRAM STAIN (02/02/2024 7:51 PM CDT) Pathologist [facility] Final Report No growth. [facility] Gram Stain Report PMN's seen. No organisms seen. [facility] Peritoneal Fluid PERITONEUM (SEROUS MEMBRANE) STRUCTURE / Unknown 02/02/2024 7:51 PM CDT 02/02/2024 8:04 PM CDT Humphrey Rose MD LAB MICROBIOLO GY Performing Organization Address [facility] Co de Phone Number [facility] [address] [address] * BODY FLUID CELL COUNT/DIFF (02/02/2024 7:51 PM CDT) Fluid Type PT Peritoneal [facility] Comment:Normal reference ran ges have not been determined; clinical correlation is recommended. Volume PT Fluid 40 mL [facility] Appearance PT Hazy [facility] Color bf Yellow [facility] Rbc PT Fluid <1,000 cells/ul [facility] Nuc Ct PT Fluid 93 cells/ul [facility] Neutrophil PT Fluid 2 % [facility] Lymphocytes PT Fluid 19 % [facility] Basophil PT Fluid 1 % [facility] MONO/MACS FL 53 % [facility] Other PT Fluid 25 % [facility] Comment:Others are mesotheli al cells. Peritoneal Fluid 02/02/2024 7:51 PM CDT 02/02/2024 7:57 PM CDT Humphrey Rose MD LABORATORY Performing Organization Address [facility] Co de Phone Number [facility] [address] [address] * CT ABDOMEN/PELVIS W/IV CON (02/02/2024 6:50 [...] (02/02/2024 5:15 PM CDT) Color YELLOW YELLOW [facility] Appearance CLOUDY(A) CLEAR [facility] Urine Glucose NEGATIVE NEGATIVE mg/dL [facility] Bili UA TRACE(A) NEGATIVE [facility] Ketones TRACE(A) NEGATIVE [facility] Specific [place] 1.024 1.003 - 1.030 [facility] Blood Ur LARGE(A) Neg-Trace [facility] PH Urine 6.0 5.0 - 7.0 [facility] Protein Ur 30(A) Neg-Trace [facility] Urobilinogen >=8(A) NORMAL EU/dL [facility] Nitrite Ur NEGATIVE NEGATIVE [facility] Leuk Est SMALL(A) Neg-Trace [facility] WBC Ur 6-10(A) 0 - 5 perHPF [facility] RBC Ur >20(A) 0 - 3 perHPF [facility] SQ EPITH 0-5 0 - 5 perHPF [facility] Bacteria UA PRESENT [facility] Comment:Presence of bacteria does not necessarily indicate a UTI. The presence of bacteria can indicate a non-clean catch urine specimen. Bacteria should be used in conjunction with other UA results and clinical presentation to assist in diagnosing an infection. Urinalysis Performed at: [facility] Urine 02/02/2024 5:15 PM CDT 02/02/2024 5:18 PM CDT Humphrey Rose MD LABORATORY [facility] [address] [address] * (ABNORMAL) URINE CULTURE (02/02/2024 5:03 PM CDT) Urine Cult Greater than 100,000 organisms/ml Escherichia coli isolated.(POS) [facility] Organism ESCHERICHIA COLI(POS) [facility] Urine 02/02/2024 5:03 PM CDT [...] MD LAB MICROBIOLO GY Performing Organization Address [facility] Co de Phone Number [facility] [address] [address] * PRECAUTIONARY TUBE (02/02/2024 5:00 PM CDT) [facility] Prec Tube Precautionary Blood Bank Specimen Received. [facility] Blood 02/02/2024 5:00 PM CDT 02/02/2024 5:11 PM CDT [place] MD LAB TRANSFUSION SERV ICES Performing Organization Address [facility] Co de Phone Number [facility] [address] [address] * LIPASE (02/02/2024 4:01 PM CDT) [facility] Lipase 13 13 - 60 IU/L [facility] Blood 02/02/2024 4:01 PM CDT 02/02/2024 7:02 PM CDT Humphrey Rose MD LABORATORY Performing Organization Address [facility] Co de Phone Number [facility] [address] [address] * (ABNORMAL) PANEL HEPATIC FUNCTION (02/02/2024 4:01 PM CDT) [facility] Total Protein 5.8(L) 6.4 - 8.3 g/dL [facility] Albumin 2.4(L) 3.8 - 5.1 g/dL [facility] Bili Total 1.1 <=1.2 mg/dL [facility] Bili Direct 0.5(H) <=0.3 mg/dL [facility] Alk Phos 107(H) 35 - 104 IU/L [facility] Comment:No reference range e stablished for patients <18 years old. ALT (SGPT) 19 <=33 IU/L [facility] AST(SGOT) 39 5 - 40 IU/L [facility] Blood 02/02/2024 4:01 PM CDT 02/02/2024 7:02 PM CDT Humphrey Rose MD LABORATORY Performing Organization Address City/[facility]/ZIP Co de Phone Number [facility] [address] [address] * LACTATE (LACTIC ACID) (02/02/2024 4:01 PM CDT) Lactate 1.1 0.7 - 2.1 mmol/L [facility] Blood 02/02/2024 4:01 PM CDT 02/02/2024 4:15 PM CDT Narrative [facility] - 02/02/2024 4:15 PM CDT Send specimen on ice! Humphrey Rose MD LABORATORY Performing Organization Address [facility] Co de Phone Number [facility] [address] [address] * (ABNORMAL) PROTHROMBIN (PT) & INR (02/02/2024 4:01 PM CDT) Pathologist [facility] PT 18.0(H) 9.0 - 12.5 sec [facility] INR 1.6(H) 0.8 - 1.1 [facility] Comment: Warfarin Therapeutic Range: Standard Intensity: 2.0 - 3.0 High Intensity: 2.5 - 3.5 Blood 02/02/2024 4:01 PM CDT 02/02/2024 4:38 PM CDT Humphrey Rose MD LABORATORY Performing Organization Address [facility] Co de Phone Number [address] [address] * HS TROPONIN (02/02/2024 4:01 PM CDT) HS Troponin I <3 <=14 ng/L [facility] Blood 02/02/2024 4:01 PM CDT 02/02/2024 4:36 PM CDT Narrative [facility] - 02/02/2024 5:10 PM CDT If ordering as an add-on lab, you must call the lab. Humphrey Rose MD LABORATORY [facility] [address] [place] [id number] * (ABNORMAL) CBC WITH PLTS/AUTO DIFF (02/02/2024 4:01 PM CDT) WBC 7.34 4.00 - 10.00 k/cmm [facility] RBC 3.08(L) 3.90 - 5.20 m/cmm [facility] Hgb 9.3(L) 11.5 - 15.7 g/dL [facility] Hematocrit 28.5(L) 34.0 - 45.0 % [facility] MCV 92.5 80.0 - 100.0 fL [facility] MCH 30.2 25.0 - 32.0 pg [facility] MCHC 32.6 31.0 - 36.0 g/dL [facility] RDW 13.5 11.5 - 14.5 % [facility] Plt 176 150 - 400 k/cmm [facility] MPV 10.2 6.5 - 12.5 fL [facility] Automated Abs Neutrophil 5.98 1.70 - 6.50 k/cmm [facility] Comment:Preliminary ANC, Fin al Result to Follow Abs Immature Granulocyte 0.03 0.00 - 0.09 k/cmm [facility] Comment:The Immature Granulo cyte Absolute count contains metamyelocytes and myelocytes. Abs Neutrophil 5.98 1.70 - 6.50 k/cmm [facility] Abs Lymphocyte 0.80 0.80 - 4.00 k/cmm [facility] LAB Abs Monocyte 0.52 0.20 - 1.00 k/cmm [facility] Abs Eosinophil 0.00 0.00 - 0.60 k/cmm [facility] Abs Basophil 0.01 0.00 - 0.20 k/cmm [facility] Blood 02/02/2024 4:01 PM CDT 02/02/2024 4:36 PM CDT Humphrey Rose MD LABORATORY Performing Organization Address [facility] Co de Phone Number [facility] [address] [address] * (ABNORMAL) ED CHEMISTRY LABS(NA,K,CL,CO2,GLU,CREAT,CA-IONIZED,ANION GAP) (02/02/2024 4:01 PM CDT) Sodium 135 135 - 148 mEq/L [facility] Chloride 100 92 - 108 mEq/L [facility] AnGap 9 8 - 16 mEq/L [facility] Glucose 105(H) 70 - 100 mg/dL [facility] ICA, Actual 4.21(L) 4.40 - 5.20 mg/dL [facility] ICA, pH Corrected 4.45 4.40 - 5.20 mg/dL [facility] Creatinine 0.72 0.50 - 1.00 mg/dL [facility] BICARB 26 22 - 26 mEq/L [facility] eGFR (2020 CKD-EPI) 96 >=60 ml/min/1.7 3m2 [facility] Comment: The estimated glomerular filtration rate (eGFR) was calculated using the CKD-EPI 2020 creatinine equation, which does not include race as a factor. This equation is validated in individuals 18 years of age and older, and eGFR is normalized to a body surface area of 1.73m^2. Potassium 3.5 3.5 - 5.3 mEq/L [facility] Blood 02/02/2024 4:01 PM CDT 02/02/2024 4:15 PM CDT Humphrey Rose MD LABORATORY Performing Organization Address [facility]/ZIP Co de Phone Number [facility] [address] [address] * GLYCOSYLATED HGB - A1C (02/02/2024 4:00 PM CDT) Hemoglobin A1C 4.4 4.0 - 5.6 % [facility] Comment: Increased risk for diabetes [...] Estimated Average Glucose 80 68 - 114 [facility] Comment: The estimated Average Glucose (eAG) was calculated using an equation derived from a study of 507 adults with type 1, type 2, or no diabetes. Minority populations were underrepresented and children were not included. The eAG is not equivalent to a fasting glucose concentration. Blood 02/02/2024 4:00 PM CDT 02/02/2024 11:05 PM CDT Enedina Austin MD LABORATORY Performing Organization Address [facility] Co de Phone Number [facility] [address] [address] * ANTIBODY SCREEN (02/02/2024 4:00 PM CDT) Pathologist [facility] Nicky Screen Negative [facility] Blood 02/02/2024 4:00 PM CDT 02/02/2024 10:16 PM CDT Ileana Howell APRN, CNP LAB TRANSFUSI ON SERVICES Performing Organization Address [facility] Co de Phone Number [facility] [address] [address] * BLOOD TYPING-ABO/RH (02/02/2024 4:00 PM CDT) Pathologist [facility] ABORHG A POS [facility] Blood 02/02/2024 4:00 PM CDT 02/02/2024 10:16 PM CDT Ileana Howell APRN, CNP LAB TRANSFUSI ON SERVICES Performing Organization Address [facility] Co de Phone Number [facility] [address] [address] * PTT (APTT) (02/02/2024 4:00 PM CDT) [facility] APTT 33.0 25.0 - 37.0 sec [facility] Blood 02/02/2024 4:00 PM CDT 02/02/2024 5:57 PM CDT Enedina Austin MD LABORATORY Performing Organization Address [facility] Co de Phone Number [facility] [address] [address] * ED EKG (12-LEAD) (02/02/2024 3:48 PM CDT) 02/02/2024 3:48 PM CDT Impressions [facility] EKG ORDERS - 02/02/2024 3:48 [...] 365 ms QTC Interval 414 ms P Hitchita -12 QRS Hitchita -1 T Wave Hitchita -1 Narrative Procedure Note Lyndon Villanueva MD - 02/02/2024 IMPRESSION SINUS RHYTHM LOW QRS VOLTAGE IN EXTREMITY LEADS [QRS DEFLECTION < 0.5 mV IN LIMBLEADS] POSSIBLE ANTERIOR MYOCARDIAL INFARCTION , PROBABLY OLD [30 ms Q WAVE INV3/V4, OR R < 0.2 mV IN V4] BORDERLINE ECG P-R Interval 184 ms QRS Interval 78 ms QT Interval 365 ms QTC Interval 414 ms P Hitchita -12 QRS Hitchita -1 T Wave Hitchita -1 Humhprey Rose MD EKG Performing Organization Address [facility] Co de Phone Number [facility] E[facility] ORDERS * ED US ABDOMINAL/GALLBLADDER (02/02/2024 3:40 PM CDT) Anatomical Region Laterality Modality Ultrasound Narrative 02/02/2024 4:30 PM CDT ED Abdomen/Gallbladder Ultrasound Indications: Abdominal pain Window: Longitudinal and Transverse Findings: No gall stones identified Diffuse Ascites Impression: ??No gallstones, negative sonographic tobin sign, ascites Rauschenbach, Humphrey R, MD, 02/02/2024 4:30 PM Humphrey Rose MD RAD ED ULT documented in this encounter Visit Diagnoses Diagnosis Other fracture of right femur, initial encounter for closed fracture (CMS)- Primary Other fracture of right femur, initial encounter for closed fracture ([facility]) Acute cystitis with hematuria Acute cystitis Raya syndrome Crohn's disease with complication, unspecified gastrointestinal tract location ([facility]) Imaging of gastrointestinal tract abnormal Nonspecific (abnormal) findings on radiological and other examination of gastrointestinal tract 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 Administered Medications Active [...] dose on 02/27/24 at 1100, Until Discontinued Given 02/28/2024 9:01 [...] DAILY BEFORE AM MEAL, First dose on 02/13/24 at 0730, Until Discontinued Given 02/29/2024 6:49 [...] Line Flush, Per venous access protocol nystatin [id number] unit/g powder Topical, BID, First dose on [...] modification) on Thu02/10/24 at 2000, Until Discontinued 0754 (Given - Provider: Stacy Laughlin RN)1429 (Given - Provider: Stacy Laughlin RN)2045 (Given - Provider: Gaston Buckley RN) 09 (Given - Provider: Stacy Laughlin RN)134 (Given - Provider: Stacy Laughlin RN)210 (Given - Provider: Marycruz Espinosa RN) 0800 (Due)1400 (Due)1999 (Due) calcium (OS-ALICIA) tablet - elemental 500 mg 500 mg, Oral, BID, First dose on Thu02/09/24 at 1999, Until Discontinued 0755 (Given - Provider: Stacy Laughlin RN)2046 (Given - Provider: Gaston Buckley RN) 09 (Given - Provider: Stacy Laughlin RN)2104 (Given - Provider: Marycruz Espinosa RN) 0800 (Due)1999 (Due) carboxymethylcellulose sod PF solution 1 drop 1 drop, eye BOTH, TID, First dose on Thu02/02/24 at 2205, Until Discontinued 0757 (Given - Provider: Stacy Laughlin RN)1429 (Given - Provider: Stacy Laughlin RN)2047 (Given - Provider: Gaston Buckley RN) 09 (Given - Provider: Stacy Laughlin RN)134 (Given - Provider: Stacy Laughlin RN)2104 (Given - Provider: Marycruz Espinosa RN) 0800 (Due)1400 (Due)1999 (Due) citalopram (CeleXA) tablet 20 mg 20 mg, Oral, DAILY, First dose on Thu02/03/24 at 0800, Until Discontinued 0755 (Given - Provider: Stacy Laughlin RN) 09 (Given - Provider: Stacy Laughlin RN) 08 (Due) clotrimazole (LOTRIMIN) 1% cream Apply to: abdominal skin folds For External Use Only., Topical, BID, First dose on Thu02/04/24 at 1999, Until Discontinued 08 (Not Given (removes Due time) - Provider: Stacy Laughlin RN - Reason: Patient refused)2025 (Not Given (removes Due time) - Provider: Gaston Buckley RN - Reason: Patient refused) 09 (Not Given (removes Due time) - Provider: Stacy Laughlin RN - Reason: Patient refused)2105 (Given - Provider: Marycruz Espinosa RN) 08 (Due)1999 (Due) enoxaparin (LOVENOX) 40 mg/0.4 mL injection 40 mg 40 mg, Subcutaneous, DAILY, First dose on 02/21/24 at 1030, Until Discontinued 0754 (Given - Provider: Stacy Laughlin RN) 09 [...] Q24H, First dose (after last modification) on Thu02/28/24 at 2000, Until Discontinued 2056 (Hang Lipids - Provider: Marycruz Espinosa RN) 0857 (Due: Remove Lipids - Provider: Marycruz Espinosa RN)1999 (Due) furosemide (LASIX) tablet 10 mg 10 mg, Oral, DAILY, First dose on Thu02/27/24 at 1100, Until Discontinued 1241 (Given - Provider: Stacy Laughlin RN) 0901 (Given - Provider: Stacy Laughlin RN) 08 (Due) GABApentin (NEURONTIN) tablet 600 mg 600 mg, Oral, TID, First dose (after last modification) on Thu02/03/24 at 0800, Until Discontinued 075 (Given - Provider: Stacy Laughlin RN)1428 (Given - Provider: Stacy Laughlin RN)204 (Given - Provider: Gaston Buckley RN) 0901 (Given - Provider: Stacy Laughlin RN)1348 (Given - Provider: Stacy Laughlin RN)210 (Given - Provider: Marycruz Espinosa RN) 0800 (Due)1400 (Due)1999 (Due) hydrocerin cream Apply to dry skin., Topical, BID, First dose on Thu02/08/24 at 2000, Until Discontinued 08 (Given - Provider: Stacy Laughlin RN)2047 (Given - Provider: Gaston Buckley RN) 906 (Given - Provider: Stacy Laughlin RN)2110 (Given - Provider: Marycruz Espinosa RN) 08 (Due)1999 (Due) levothyroxine (SYNTHROID) tablet 50 mcg [...] IV Push, ONE TIME, 1 dose, On 02/27/24 at 1135 1136 (Given - Provider: Patricia Dumont RN - Comment: right upper arm with PICC placement) nystatin [id number] unit/g powder Topical, BID, First dose on Thu02/03/24 at 1800, Until Discontinued 08 (Given - Provider: Stacy Laughlin RN)2047 (Given - Provider: Gaston Buckley RN) 905 (Given - Provider: Stacy Laughlin RN)2103 (Given - Provider: Marycruz Espinosa RN) 0800 (Due)1999 (Due) pantoprazole (PROTONIX) tablet 40 mg [...] modification) on 02/10/24 at 1999, Until Discontinued 0753 (Given - Provider: Stacy Laughlin RN)2045 (Given [...] 8.6 mg, Oral, BID, First dose on 02/10/24 at 1050, Until Discontinued 075 (Given - Provider: Stacy Laughlin RN)2046 (Given - Provider: Gaston Buckley RN) 09 (Given - Provider: Stacy Laughlin RN)2102 (Given - Provider: Marycruz Espinosa RN) 799 (Due)1999 (Due) spironolactone (ALDACTONE) tablet 50 mg 50 mg, Oral, DAILY, First dose on 02/27/24 at 1100, Until Discontinued 1241 (Given - Provider: Stacy Laughlin RN) 0901 (Given - Provider: Stacy Laughlin RN) 0800 (Due) thiamine (VITAMIN B1) tablet 100 mg [...] RN)1601 (New Bag - Provider: Gaston Buckley RN)1942 (Stopped - Provider: Gaston Buckley RN)2000 (Dual Sign-Off - Provider: Gaston Buckley RN)202 [...]
--- OUTSIDE RECORDS SUMMARY | 2024-02-29 07:59 | XMS_ITS | Encounter Summary ---
Author Organization [facility] Address [address] [place] [address] Phone Care Team Providers Care Engineering Faculty Name Role Phone Unavailable Primary Care Provider Unavailabl e Reason for Visit * Auth/Cert (Routine) Specialty Diagnoses / Procedures Referred By Contac t Referred To Contact ORTHOPEDICS Diagnoses Acute cystitis with hematuria Other fracture of right femur, initial encounter for closed fracture ([facility]) Humphrey Rose MD [address] [place] [address] [facility](G3) [address] [facility] [address] [place] [address] Referral ID Status Reason Start Date Expiration Date Visits Re quested Visits Authorized [id number] 1 1 Encounter Details Date Type Department Care Team (Late st Contact Info) Description 02/05/2024 12:52 PM CDT Anesthesia Event OR P4 [address] [facility] [address] [place], [place] [address] Marcus Hanna MD [address] [place] [address] [address] [place], [place] [address] Sweta Dennis SRNA [address] [place] [address] Anesthesia Record Procedure Summary Procedure [...] Right 02/05/24 1443 by Kiley Sosa RN Peripheral IV 02/02/24; 1519; No; 20 gauge; Anterior, Right; Forearm; Placed Prior to arrival in other fac; 02/11/24; 1900 02/02/24 1519 by Catarino Ovalles RN 02/11/24 1900 by Lukas Dill RN Urinary Catheter 02/02/24; 1714; 16; 10 mL; Placed in ED; Celeste, BHARATI; 02/06/24; 1107 02/02/24 1714 by Catarino Ovalles RN 02/06/24 1107 by Nino Simpson RN Peripheral IV 02/02/24; 2019; No; 20 gauge; Anterior, Left; Forearm; 1; Placed in ED; 02/09/24; 1147; Redness, Tender/painful; 0; 1 02/02/242018 by Shirlene Simons RN 02/09/24 114 by Rozina Lainez RN Peripheral IV 02/02/24; 2035; Yes; 18 gauge, 1 3/4 in length; Right; Antecubital; 02/05/24; 1830 02/02/242035 by Natacha Mcadams RN 02/05/24 183 by Nino Simpson RN Rash 02/02/24; 2348; 02/09/24 (duplicate charting); 1033 02/02/24 2348 by Chelsi Mehta RN 02/09/24 1033 by Rozina Lainez RN Wound 02/03/24; 0104; Pretibial; Left; 02/17/24; 1428 02/03/24 0104 by Chelsi Mehta RN 02/17/24 1428 by Natacha Bang RN Endotracheal Tube: 02/05/24; 1311 (created via procedure documentation); 7; 02/05/24; 1545 02/05/24 1311 by Cely Friend APRN, ENVIRONMENTAL SCIENCE INSTRUCTOR 02/05/24 1545 by Ramon Infante APRN ENVIRONMENTAL SCIENCE INSTRUCTOR (NPWT) Negative Pressure Wound Therapy 02/05/24; 1514; Pretibial (The wound vac applied on the pin insertion sites.); Proximal, Right, Lateral, Inner; 2 sponges; Placed in OR; 02/11/24; 0700 02/05/24 1514 by Lalit Price RN 02/11/24 0700 by Natacha Bang RN documented in this [...] PM CDT Anesthesia Post Eval Patient: Cathy Manning Segundo Procedure(s) Performed: IM KRYSTLE FEMUR (Right: Leg Upper) I've examined the patient and determined that he/[facility] is medically stable [facility] Anest[facility] type: General () Patient location: PACU Patient status: Post-procedure vital signs reviewed and stable Level of Consciousness: Sleepy Post-op pain: Adequate Respiratory: Sup O2 Cardiovascular: Stable PONV status: none Fluid status: Acceptable Betablockade: not indicated Anesthetic Complications: No immediate anesthesia complications Marcus Hanna M.D. Staff Anesthesiologist Phone: [phone] 02/05/2024 Last Vitals: Vitals Value Taken Time [...] mask Device Device used: Mendez Supporting device: Blade size: 2 The patient [...] unchanged Performed by: BIBI: Cely Friend APRN, CRNA Events Anesthesia start: [...] distention Hematologic/Onc (+) anemia, coagulopathy , thrombocytopenia /Renal/Die Setter ROS comment: Hematuria Airway Mallampati: II TM distance: >3 FB Neck ROM: full Mouth Opening: good Dental (+) chipped teeth and missing teeth OB Other Physical Exam Anesthesia Plan ASA 3 - emergent general intravenous induction Maintenance: Balanced Post-op Care: routine analgesia Anesthetic plan and risks discussed with patient. Plan discussed with ENVIRONMENTAL SCIENCE INSTRUCTOR. Vitals: 02/05/24 1215 BP: Pulse: Resp: Temp: [...] [facility] [address] [place] [phone] Lia Mcclellan PA-C [address] [address] Scheduled Discharge Disposition: Discharged to home or self care (routine discharge) 03/17/2024 9:45 AM CDT [facility]ointment [facility] [address] [place] [address] Scheduled Discharge Disposition: Discharged to home or self care (routine discharge) 03/17/2024 10:00 AM CDT [facility] [address] [place] [address] Dayo Henning MD [address] [address] Scheduled Discharge Disposition: Discharged to home or [...] and clear Preoxygenation: mask Device Device used: [employer] Supporting device: ?? Blade size: 2 The [...] unchanged and oral mucosa unchanged Performed by: ENVIRONMENTAL SCIENCE INSTRUCTOR: Cely Friend APRN, CRNA Events Anesthesia start: [...]
--- OUTSIDE RECORDS SUMMARY | 2024-02-29 08:02 | XMS_ITS | Encounter Summary ---
Author Organization [facility] Address [address] [place] [address] Phone Care Team Providers Care Hydrostatic Tester Name Role Phone Unavailable Primary Care Provider Unavailabl e Reason for Visit * Reason Comments Leg Deformity * Auth/Cert (Routine) Specialty Diagnoses / Procedures Referred By Contac t Referred To Contact ORTHOPEDICS Diagnoses Acute cystitis with hematuria Other fracture of right femur, initial encounter for closed fracture (CMS) Humphrey Rose MD [address] [place] [address] Med [facility] Inpt(G3) [address] [facility] [address] [place] [address] Referral ID Status Reason Start Date Expiration Date Visits Re quested Visits Authorized [id number] 1 1 Encounter Details Date Type Department Care Team (Late st Contact Info) Description 02/05/2024 1:15 PM CDT - 02/05/2024 4:25 PM CDT Surgery OR P4 [address] [facility] [address] [place], [place] [phone] Dayo Henning MD [address] [place] [address] IM KRYSTLE FEMUR Social History Tobacco Use [...] PURPLE SURGERY PROGRESS NOTE - MS4/PGY-1 SUMMARY: Cathy [...] Abd/Pelvis: Noted ventral hernia. Baudilio Dawkins, , 02/28/2024 10:39 AM Naina Merritt MBBS, 02/28/2024 11:37 AM [facility] Surgery Discharge Milestones (Inpatient Primary [...] POA, Stage 2 - Wound care per [facility] nurse Hypokalemia, intermittent Anemia, stable. - Continue [...] Pertinent labs and imaging personally reviewed in [facility] and applied to medical decision making. Nino Ramírez MD, 02/28/2024 9:42 AM * Raven Ramírez [...] POA, Stage 2 - Wound care per [facility] nurse Hypokalemia, intermittent Anemia, stable. - Continue [...] Pertinent labs and imaging personally reviewed in [facility] and applied to medical decision making. [...] hernia. Naina Merritt MBBS, 02/27/2024 8:42 AM [facility] Surgery Discharge Milestones (Inpatient Primary [...] POA, Stage 2 - Wound care per [facility] nurse Hypokalemia (Resolved) Anemia, stable. - Continue [...] Pertinent labs and imaging personally reviewed in [facility] and applied to medical decision making. Ernestine Toribio MD, 02/26/2024 3:57 PM Hospitalist - Department of Medicine Page via [facility] MDM: The patient's problem complexity is: [x] [...] (reviewing labs/imaging) [x] I talked to a cisco consultant and/or members of the case management [...] If advanced, please add an order for [place] Boost each meal If unable to advance [...] check TG weekly Estimated Nutritional Needs: Calories: 9222-8717 Protein: 75+ grams/day Fluid: per primary team [...] Cathy Raymond - : 1965 - MR# [id number] - Date: 02/26/2024 Reason For Consultation: The patient is being seen in consultation at the request of test analyst for evaluation of skin breakdown to labia. [...] identified. WOCN available Thursday through Thursday on [employer] or [phone] Isidoro Guerrero CWON, 02/26/2024 1:08 PM * Davian Toledo RN - 02/26/2024 12:37 PM CDT 02/26/24 1235 Rapid Rounds Attendance film processing utility worker;Bedside nurse;sales engineering manager Patient expects to be discharged to: Accepted to [facility] Today we still await: Clinical stability (Continues [...] RN, 02/25/2024 10:19 PM, clinical instructor for [facility] * Felipe Mercer PTA - 02/25/2024 3:46 [...] Participation Significantly Limited?: No Intervention: Positioning;Performed Exercises O:Airways Operations Specialist Used: None needed Mental Status Mental Status: [...] STS transfer with no AD, with this screen writer using bear hug and blocking B [...] seated balance, STS, stand pivot, standing tolerance. PAINT BRUSH MAKER Appropriate: Yes (For EOB activity and standing/transfers, no gait) Felipe Mercer, PAINT BRUSH MAKER 02/25/2024 Pager: [facility] PT Dept Problem: Decreased Transfer Skills Goal: Patient will transfer supine to/from sit Description: Patient will transfer supine to/from sit with (6) Modified [place] in order to safely mobilize OOB by [...] manual wheelchair propulsion >20m with (6) Modified [place] in order to progress toward PLOF by [...] POA, Stage 2 - Wound care per [facility] nurse Hypokalemia (Resolved) Anemia, stable. - Continue [...] Pertinent labs and imaging personally reviewed in [facility] and applied to medical decision making. Ernestine Toribio MD, 02/25/2024 2:20 PM Hospitalist - Department of Medicine Page via [facility] MDM: The patient's problem complexity is: [x] [...] (reviewing labs/imaging) [x] I talked to a cisco consultant and/or members of the case management [...] care/Home mgmt/ADL: 40 minutes LILY Ling/Bethanie Pager: [facility] OT Department * Courtney Potts LGSW - 02/25/2024 10:53 AM CDT SW spoke to Ashley in Admissions for [facility] to let her know patient is still not medically ready will update her tomorrow at [phone]. * Humphrey Turner MD - 02/25/2024 7:07 AM CDT Orthopaedic Surgery Progress Note 02/25/2024 S: AMTT overnight. Pain adequately controlled. Continues to struggle with medical comorbidities. Will ultimately need ANA. O: Vitals: 02/23/24 2257 02/24/24 0738 02/24/24 1510 02/24/24 2337 BP: 90/52 99/61 104/60 Cuff Location: Right Arm Left Arm Left Arm Pulse: 66 70 66 Resp: Temp: 36.4 ??C (97.6 ??F) 36.6 ??C [...] Component Value Date/Time WBC 2.69 (L) 02/25/2024 06 RBC 3.06 (L) 02/25/2024621 HGB 9.2 (L) 02/25/2024621 HCT 28.9 (L) 02/25/2024 06 PLT 132 (L) 02/25/2024621 Lab Results Component Value Date/Time NA 133 (L) 02/25/2024621 K 3.1 (L) 02/25/2024621 CHLORIDE 99 02/25/2024 0622 CO2 27 02/25/2024 06 GLU 77 02/25/2024 06 UN 10 02/25/2024621 CR 0.48 (L) 02/25/2024621 CA 7.8 (L) 02/25/2024621 Lab Results Component Value Date/Time PO4 3.5 02/25/2024621 Lab Results Component Value Date/Time MG 2.2 02/23/2024 0846 RADIOLOGY: 02/24/24 Abdominal Xray: Ongoing sigmoid distension, moderately increased from previous abdominal xray 02/20/24 CT Abd/Pelvis: Noted ventral hernia. Baudilio Dawkins, MS, 02/25/2024 8:53 AM [facility] I Cecilio Salazar MD, saw the patient with the medical student and performed, or re- performed, the physical exam and medical decision-making and have verified the accuracy of all the medical student documentation and edited as necessary. Cecilio Salazar MD, 02/25/2024 9:47 AM General Surgery, PGY-5 P: [phone] Surgery Discharge Milestones (Inpatient Primary Team only): [...] POA, Stage 2 - Wound care per [facility] nurse Hypokalemia (Resolved) Anemia, stable. - Continue [...] Pertinent labs and imaging personally reviewed in [facility] and applied to medical decision making. Ernestine Toribio MD, 02/24/2024 5:01 PM Hospitalist - Department of Medicine Page via [facility] MDM: The patient's problem complexity is: [x] [...] (reviewing labs/imaging) [x] I talked to a cisco consultant and/or members of the case management [...] 76 grams protein Estimated Nutritional Needs: Calories: 7772-6164 Protein: 75+ grams/day Fluid: per primary team [...] hernia. Baudilio Dawkins, MS, 02/24/2024 8:56 AM [facility] Surgery Discharge Milestones (Inpatient Primary [...] Participation Significantly Limited?: No Intervention: Positioning;Notified RN O:Airways Operations Specialist Used: None needed Mental Status Mental Status: [...] transfer supine to/from sit with (6) Modified [place] in order to safely mobilize OOB by [...] manual wheelchair propulsion >20m with (6) Modified [place] in order to progress toward PLOF by 03/04/24. Outcome: In progress PAINT BRUSH MAKER Appropriate: Yes (For EOB activity and standing/transfers, no gait) Mando Briceno, PT 02/23/2024 Pager: [facility] PT Dept * Eugenia Mead OTR/Bethanie - [...] on each: Self care/Home mgmt/ADL: 30 minutes AUDIE Ling Pager: [facility] OT Department * AdalbertodJonnie MD - 02/23/2024 1:43 PM CDT PURPLE [...] Reviewed. Baudilio Dawkins, MS, 02/23/2024 1:43 PM [facility] RESIDENT WITH STUDENT: I saw [...] POA, Stage 2 - Wound care per [facility] nurse Hypokalemia (Resolved) Anemia, stable. - Continue [...] Pertinent labs and imaging personally reviewed in [facility] and applied to medical decision making. Ernestine Toribio MD, 02/23/2024 1:33 PM Hospitalist - Department of Medicine Page via [facility] MDM: The patient's problem complexity is: [x] [...] (reviewing labs/imaging) [x] I talked to a cisco consultant and/or members of the case management [...] Participation Significantly Limited?: No Intervention: Positioning;Notified RN O:Airways Operations Specialist Used: None needed Mental Status Mental Status: [...] transfer supine to/from sit with (6) Modified [place] in order to safely mobilize OOB by [...] manual wheelchair propulsion >20m with (6) Modified [place] in order to progress toward PLOF by 03/04/24. Outcome: In progress PAINT BRUSH MAKER Appropriate: Yes (For EOB activity and standing/transfers with Stacy Mo, no gait) Mando Briceno, PT 02/22/2024 Pager: [facility] PT Dept * Eugenia Mead OTR/L - 02/22/2024 2:34 PM CDT Occupational [...] care/Home mgmt/ADL: 40 minutes LILY Ling/Bethanie Pager: [facility] OT Department * Courtney Potts LGSW - 02/22/2024 2:34 PM CDT GINNY spoke to Ashley for admissions at [facility] [phone] can take the patient on Thursday. Please [...] POA, Stage 2 - Wound care per [facility] nurse Hypokalemia (Resolved) Anemia, stable. - Continue [...] Pertinent labs and imaging personally reviewed in [facility] and applied to medical decision making. Francy Mc MD, 02/22/2024 11:31 AM Hospitalist - Department of Medicine Page via [facility] * Chalo Shrestha MD - 02/22/2024 10:56 [...] Reviewed. Naina Merritt MBBS, 02/22/2024 10:56 AM [facility], PGY-1 Surgery Discharge Milestones (Inpatient Primary Team only): FACULTY NOTE I saw and evaluated the patient on the date of the resident's note. I discussed with the resident and agree with the resident???s findings and plan documented in the resident???s note from above. Anyrevisions by me are documented. Chalo Shrestha MD, 02/22/2024 12:01 PM * Kianna Rice RD - 02/22/2024 10:31 AM CDT Problem: [...] diet as able Estimated Nutritional Needs: Calories: 3575-6901 Protein: 75+ grams/day Fluid: per primary team [...] BMI: Body mass index is 32.99 kg/m??. [place] body weight: 63.6 kg Weight hx: 87 [...] 3.82 (L) 02/22/2024 06 RBC 2.68 (L) 02/22/2024 06 HGB 8.1 (L) 02/22/2024 06 HCT 25.4 (L) 02/22/2024 0618 PLT 115 [...] sigmoid colon distention has been ongoing since 2016. Patient had an abdominal x-ray yesterdaydue to [...] Pertinent labs and imaging personally reviewed in [facility] and applied to medical decision making. Francy Mc MD, 02/21/2024 10:31 AM Hospitalist - Department of Medicine Page via [facility] * Naina Merritt MBBS - 02/21/2024 9:29 [...] Reviewed. Naina Merritt MBBS, 02/21/2024 9:45 AM [facility], PGY-1 Surgery Discharge Milestones (Inpatient [...] rectosigmoid colonic distention. Colonic decompression performed on 5/9. Abdominal xray on 02/11 with significantly improved [...] POA, Stage 2 - Wound care per [facility] nurse Hypokalemia (Resolved) Anemia, stable. - Continue [...] Pertinent labs and imaging personally reviewed in [facility] and applied to medical decision making. Francy Mc MD, 02/20/2024 4:07 PM Hospitalist - Department of Medicine Page via [facility] * Francy Mc MD - 02/19/2024 6:28 [...] POA, Stage 2 - Wound care per [facility] nurse Hypokalemia (Resolved) Anemia, stable. - Continue [...] Pertinent labs and imaging personally reviewed in [facility] and applied to medical decision making. Francy Mc MD, 02/19/2024 6:28 PM Hospitalist - Department of Medicine Page via [employer] * Courtney Potts LGSW - 02/19/2024 2:36 PM CDT SW spoke with patient yesterday about placement at [facility]. Patient was agreeable to placement there. The earliest she could possibly transfer is on ThursdayFebruary 19. SW will continue to follow up as needed. * Carmen Oritz RN - 02/19/2024 2:04 PM CDT PARACENTESIS [...] given regarding post-care. * Mindy Swan APRN, CHILDHOOD TEACHER - 02/18/2024 12:49 PM CDT Palliative Care [...] with questions or concerns. Mindy Swan, DARIO, CHILDHOOD TEACHER, 02/18/2024 12:49 PM Palliative Medicine Available [facility] Planning Primary Care: No primary [...] their hobbies, activities and interests, spirituality or yarsanism, personal experience with end of life, and personal hopes, worries. Thisbackground is essential in understanding what is most important and how that can change throughout the course of a serious illness. This summary is an attempt to highlight that background. Social History Social History Narrative Tiny is to her , Jai. She has one daughter and two grandchildren. She is Uatsdin. When feeling well she likes to have [...] POA, Stage 2 - Wound care per [facility] nurse Hypokalemia (Resolved) Anemia, stable. - Continue [...] Pertinent labs and imaging personally reviewed in [facility] and applied to medical decision making. Francy Mc MD, 02/18/2024 11:34 AM Hospitalist - Department of Medicine Page via [facility] * Rose Marie Leigh MD - 02/18/2024 [...] Component Value Ref Range Date/Time URINE CULTURE [[id number]] Collected: 02/02/241702 Specimen: Urine Updated: 02/02/242204 BODY FLUID CULTURE:INCLUDES GRAM STAIN [[id number]] Collected: 02/02/241950 Specimen: Peritoneal Fluid from Peritoneum [...] transfer supine to/from sit with (6) Modified [place] in order to safely mobilize OOB by [...] manual wheelchair propulsion >20m with (6) Modified [place] in order to progress toward PLOF by 02/19/24. Outcome: In progress PAINT BRUSH MAKER Appropriate: No (has not stood) Mando Briceno PT 02/17/2024 Pager: [facility] PT Dept * Francy Mc MD - [...] Female at 02/17/2024 7:19 AM - Continue PAINT BRUSH MAKER dose of Furosemide and Spironolactone (increased today) Urinary retention Patient noted to be retaining urine, requiring straight catheterization. Cano replaced on 02/07. - Follow up with Urology vs TOV here Sacral ulcer, POA, Stage 2 - Wound care per [facility] nurse Hypokalemia (Resolved) Anemia, stable. - Continue [...] Pertinent labs and imaging personally reviewed in [facility] and applied to medical decision making. Francy Mc MD, 02/17/2024 2:56 PM Hospitalist - Department of Medicine Page via [facility] * Mando Briceno, PT - 02/16/2024 2:18 [...] and cytology examination : yes Patient to [facility] for post-procedure monitoring. Patient education sheets given [...] back to 2017. Abdominal xray done on 5/9 with increasing sigmoid colon distension. CT abdomen/pelvis [...] 8:12 AM - Continue decreased doses of PAINT BRUSH MAKER Furosemide and Spironolactone Urinary retention Patient noted [...] Pertinent labs and imaging personally reviewed in [facility] and applied to medical decision making. Francy Mc MD, 02/16/2024 9:50 AM Hospitalist - Department of Medicine Page via [facility] * Ernestine Toribio MD - 02/15/2024 5:16 [...] 6:48 AM - Continue decreased doses of PAINT BRUSH MAKER Furosemide and Spironolactone Urinary retention Patient noted [...] Pertinent labs and imaging personally reviewed in [facility] and applied to medical decision making. Ernestine Toribio MD, 02/15/2024 5:16 PM Hospitalist - Department of Medicine Page via [facility] MDM: The patient's problem complexity is: [x] [...] (reviewing labs/imaging) [x] I talked to a cisco consultant and/or members of the case management [...] transfer supine to/from sit with (6) Modified [place] in order to safely mobilize OOB by [...] manual wheelchair propulsion >20m with (6) Modified [place] in order to progress toward PLOF by 02/19/24. Outcome: In progress PAINT BRUSH MAKER Appropriate: No (has not stood) Mando Briceno, PT 02/15/2024 Pager: [facility] Dept * Eugenia Mead, OTR/L - [...] care/Home mgmt/ADL: 35 minutes LILY Ling/Bethanie Pager: [facility] OT Department * Ernestine Toribio MD - [...] 8:18 AM - Continue decreased doses of PAINT BRUSH MAKER Furosemide and Spironolactone Urinary retention Patient noted [...] Pertinent labs and imaging personally reviewed in [facility] and applied to medical decision making. Ernestine Toribio MD, 02/14/2024 3:56 PM Hospitalist - Department of Medicine Page via [facility] MDM: The patient's problem complexity is: [x] [...] (reviewing labs/imaging) [x] I talked to a cisco consultant and/or members of the case management [...] 9:06 AM - Continue decreased doses of PAINT BRUSH MAKER Furosemide and Spironolactone Urinary retention Patient noted [...] Pertinent labs and imaging personally reviewed in [facility] and applied to medical decision making. Ernestine Toribio MD, 02/13/2024 1:29 PM Hospitalist - Department of Medicine Page via [facility] MDM: The patient's problem complexity is: [x] [...] (reviewing labs/imaging) [x] I talked to a cisco consultant and/or members of the case management [...] 8:50 AM - Continue decreased doses of PAINT BRUSH MAKER Furosemide and Spironolactone Urinary retention Patient noted [...] Pertinent labs and imaging personally reviewed in [facility] and applied to medical decision making. Ernestine Toribio MD, 02/12/2024 12:47 PM Hospitalist - Department of Medicine Page via [facility] MDM: The patient's problem complexity is: [x] [...] (reviewing labs/imaging) [x] I talked to a cisco consultant and/or members of the case management [...] Selected Services Address Phone Fax Patient Preferred [facility] Pending - Request Sent N/A [address] [facility] [address] -- Internal Comment last updated by Eden Keane 02/12/2024 1106 LVM for admissions Eden Keane, 02/12/2024 11:06 AM [facility] Pending - Request Sent N/A [address] [facility] [address] [phone] -- Internal Comment last updated by Eden Keane 02/12/2024 1108 LVM for admissions.Eden Keane, 02/12/2024 11:08 AM Lm with admissions to call back [facility] Declined N/A [address] [facility] [id number] -- Internal Comment last updated by Courtney Potts LGSW 02/08/[address] closed a year ago [facility] Declined Bed not available N/A [address] [place] [address] [phone] -- [facility] Declined Bed not available N/A [address] [facility] [address] [phone] -- Internal Comment last updated by Eden [...] transfer supine to/from sit with (6) Modified [place] in order to safely mobilize OOB by [...] manual wheelchair propulsion >20m with (6) Modified [place] in order to progress toward PLOF by 02/19/24. Outcome: In progress P: PT 2-4 x week for duration of hospital stay or until goals achieved, for bed mobility, transfersand stand pivot to chair. Next visit sit edge of bed, attempt to stand or mechanical lift to chair PAINT BRUSH MAKER Appropriate: No (has not stood) Saranya Parker, PT 02/12/2024 Pager: [facility] PT Dept * Eugenia Mead OTR/Bethanie - 02/12/2024 11:00 AM CDT Occupational Therapy [...] care/Home mgmt/ADL: 40 minutes LILY Ling/Bethanie Pager: [facility] OT Department * Barbara Blevins PA-C - [...] service including pre-visit review of separatelyobtained history, [id number] interaction performing medically appropriate physical exam, patient [...] 7:25 AM - Continue decreased doses of PAINT BRUSH MAKER Furosemide and Spironolactone Urinary retention Patient noted [...] Pertinent labs and imaging personally reviewed in [employer] and applied to medical decision making. Ernestine Toribio MD, 02/11/2024 3:19 PM Hospitalist - Department of Medicine Page via [facility] MDM: The patient's problem complexity is: [x] [...] (reviewing labs/imaging) [x] I talked to a cisco consultant and/or members of the case management [...] for PT today, on her way to [place]. Will see tomorrow as able Saranya Parker, PT Pager:[facility] License Number [id number] 02/11/2024 * Eugenia Mead OTR/Bethanie - 02/11/2024 2:38 PM CDT Occupational Therapy Note: Arrived for OT session however pt being transported to CT, pt reports feeling awful today. OT will follow up at a later date. Eugenia Mead OTR/Bethanie, 02/11/2024 2:39 PM * Mindy Swan APRN, CHILDHOOD TEACHER - 02/11/2024 11:12 AM CDT Palliative Care [...] with questions or concerns. Mindy Swan, DARIO, CHILDHOOD TEACHER, 02/11/2024 11:22 AM Palliative Medicine Available [employer] [...] their hobbies, activities and interests, spirituality or yarsanism, personal experience with end of life, and personal hopes, worries. Thisbackground is essential in understanding what is most important and how that can change throughout the course of a serious illness. This summary is an attempt to highlight that background. Social History Social History Narrative Tiny is to her , Jai. She has one daughter and two grandchildren. She is Uatsdin. When feeling well she likes to have [...] Orthopaedic Surgery Progress Note 02/11/2024 S: DESIRE. YOLANDE. Nursing notes reviewed. Patient sleeping comfortably. Patient's [...] Component Value Ref Range Date/Time URINE CULTURE [[id number]] Collected: 02/02/24 170 Specimen: Urine Updated: 02/02/242204 BODY FLUID CULTURE:INCLUDES GRAM STAIN [[id number]] Collected: 02/02/241950 Specimen: Peritoneal Fluid from Peritoneum [...] transfer supine to/from sit with (6) Modified [place] in order to safely mobilize OOB by [...] manual wheelchair propulsion >20m with (6) Modified [place] in order to progress toward PLOF by 02/19/24. Outcome: In progress PAINT BRUSH MAKER Appropriate: No (needs mobility progressed) Mando Briceno, PT 02/10/2024 Pager: [facility] PT Dept * Ernestine Toribio MD - [...] Pertinent labs and imaging personally reviewed in [facility] and applied to medical decision making. Ernestine Toribio MD, 02/10/2024 2:50 PM Hospitalist - Department of Medicine Page via [facility] [employer] MDM: The patient's problem complexity is: [x] [...] (reviewing labs/imaging) [x] I talked to a cisco consultant and/or members of the case management [...] on each: Self care/Home mgmt/ADL: 25 minutes AUDIE Ling Pager: [facility] OT Department * Yuni Fernandez - 02/10/2024 [...] Component Value Ref Range Date/Time URINE CULTURE [[id number]] Collected: 02/02/241702 Specimen: Urine Updated: 02/02/242204 BODY FLUID CULTURE:INCLUDES GRAM STAIN [[id number]] Collected: 02/02/241950 Specimen: Peritoneal Fluid from Peritoneum Updated: 02/02/242030 Gram Stain Report -- PMN's seen. No organisms seen. Assessment/Plan: Cathy Raymond is a 58 y.o. old female with alcoholic cirrhosis who presents with a right femur fracture now s/p IMN R femur on 02/[address] Henning. Her blood culture (1/2) was positive for gram positive rods on [...] Vignesh Jorge MD Orthopaedic Surgery, PGY-3 * Madno Briceno, PT - 02/09/2024 3:08 PM CDT [...] transfer supine to/from sit with (6) Modified [place] in order to safely mobilize OOB by [...] manual wheelchair propulsion >20m with (6) Modified [place] in order to progress toward PLOF by 02/19/24. Outcome: In progress PAINT BRUSH MAKER Appropriate: No (needs mobility progressed) Mando Briceno, PT 02/09/2024 Pager: [facility] PT Dept * Eugenia Mead OTR/Bethanie - [...] care/Home mgmt/ADL: 45 minutes AUDIE Ling Pager: [facility] OT Department * Ernestine Toribio MD - [...] Pertinent labs and imaging personally reviewed in [facility] and applied to medical decision making. Ernestine Toribio MD, 02/09/2024 8:08 AM Hospitalist - Department of Medicine Page via [facility] MDM: The patient's problem complexity is: [x] [...] (reviewing labs/imaging) [x] I talked to a cisco consultant and/or members of the case management [...] Component Value Ref Range Date/Time URINE CULTURE [[id number]] Collected: 02/02/241702 Specimen: Urine Updated: 02/02/242204 BODY FLUID CULTURE:INCLUDES GRAM STAIN [[id number]] Collected: 02/02/241950 Specimen: Peritoneal Fluid from Peritoneum [...] Constipation # Insomnia # GERD - Continue PAINT BRUSH MAKER cetirizine, citalopram, gabapentin, levothyroxine, pantoprazole, PEG/senna, trazodone [...] Female at 02/08/2024 8:19 AM Charge Capture Transportation Worker * Mando Briceno, PT - 02/08/2024 12:10 PM CDT Chart reviewed for PT follow-up session this AM, session attempted - unable to see as patient at procedure, will reattempt later this date vs tomorrow as time allows. Mando Briceno, PT, 02/08/2024 12:10 PM * Jesse Pineda RN - 02/08/2024 11:46 AM CDT TRANSFER NOTE Report called to nurse, of Cathy Raymond at [facility] [place] [place] Patient transported back to [facility] [place] via Bed, Accompanied by Transporter, Patient's condition [...] Component Value Ref Range Date/Time URINE CULTURE [[id number]] Collected: 02/02/24 170 Specimen: Urine Updated: 02/02/242204 BODY FLUID CULTURE:INCLUDES GRAM STAIN [[id number]] Collected: 02/02/241950 Specimen: Peritoneal Fluid from Peritoneum [...] Constipation # Insomnia # GERD - Continue PAINT BRUSH MAKER cetirizine, citalopram, gabapentin, levothyroxine, pantoprazole, PEG/senna, trazodone [...] Female at 02/07/2024 6:05 AM Charge Capture Transportation Worker * Dayo Henning MD - 02/07/2024 7:58 [...] Component Value Ref Range Date/Time URINE CULTURE [[id number]] Collected: 02/02/241702 Specimen: Urine Updated: 02/02/242204 BODY FLUID CULTURE:INCLUDES GRAM STAIN [[id number]] Collected: 02/02/241950 Specimen: Peritoneal Fluid from Peritoneum [...] Constipation # Insomnia # GERD - Continue PAINT BRUSH MAKER cetirizine, citalopram, gabapentin, levothyroxine, pantoprazole, PEG/senna, trazodone [...] Female at 02/06/2024 7:10 AM Charge Capture Transportation Worker * Cely Buck DPM - 02/06/2024 8:46 [...] patient's care at this time. Please page quarry supervisor dimension stone resident with questions. INTERVAL ILLNESS: Patient seen [...] Component Value Ref Range Date/Time URINE CULTURE [[id number]] Collected: 02/02/241702 Specimen: Urine Updated: 02/02/242204 BODY FLUID CULTURE:INCLUDES GRAM STAIN [[id number]] Collected: 02/02/241950 Specimen: Peritoneal Fluid from Peritoneum [...] Constipation # Insomnia # GERD - Continue PAINT BRUSH MAKER cetirizine, citalopram, gabapentin, levothyroxine, pantoprazole, PEG/senna, trazodone [...] Female at 02/05/2024 9:15 AM Charge Capture Transportation Worker * Gladys Samuels DPM - 02/05/2024 7:46 [...] continue to follow while inpatient. Please page quarry supervisor dimension stone resident with questions. Patient was discussed with quarry supervisor dimension stone staff, Dr. Samuels CHIEF COMPLAINT: Right foot [...] right femur, initial encounter for closed fracture ([facility]) 02/02/2024 CURRENT HEALTH STATUS Medications: Current Facility-Administered Medications Medication Route Frequency clotrimazole (LOTRIMIN) 1% cream Topical bid bisacodyl (DULCOLAX) suppository 10 mg Rectal daily nystatin 073869 unit/g powder Topical bid citalopram (CeleXA) tablet [...] one daughter and two grandchildren. She is Uatsdin. When feeling well she likes to have [...] Component Value Ref Range Date/Time URINE CULTURE [[id number]] Collected: 02/02/241702 Specimen: Urine Updated: 02/02/242204 BODY FLUID CULTURE:INCLUDES GRAM STAIN [[id number]] Collected: 02/02/241950 Specimen: Peritoneal Fluid from Peritoneum [...] Constipation # Insomnia # GERD - Continue PAINT BRUSH MAKER cetirizine, citalopram, gabapentin, levothyroxine, pantoprazole, PEG/senna, trazodone [...] Female at 02/04/2024 6:40 AM Charge Capture Transportation Worker * Macy Paul MD - 02/04/2024 7:31 [...] indicated at this time. We recommend continuing pmcck-gx-pbfa discussions with her primary team and palliative care, however, as she remains high risk for future surgeries given her medical co-morbidities. Surgery will sign-off at this time; please page the Green surgery team pager via GivU with any future questions or concerns. PHYSICAL [...] surface, suggestive of mild avascular necrosis Macy Pual MD, 02/04/2024 7:31 AM General Surgery Resident PGY1, [facility] Surgery Service Surgery Discharge Milestones (Inpatient Primary Team only): Associated attestation - Moises Montana MD - 02/09/2024 3:39 PM CDT FACULTY NOTE I saw and evaluated the patient on the date of the screen writer's note. I discussed with the screen writer of the note and agree with their findings and plan documented in the screen writer's note from above. Any revisions by [...] Component Value Ref Range Date/Time URINE CULTURE [[id number]] Collected: 02/02/241702 Specimen: Urine Updated: 02/02/242204 BODY FLUID CULTURE:INCLUDES GRAM STAIN [[id number]] Collected: 02/02/241950 Specimen: Peritoneal Fluid from Peritoneum [...] new results of positive blood cx from [place] as well as one from [facility]. They arereportedly two different classes of bacteria [...] DC per protocol. * Carter Maurer APRN, CHILDHOOD TEACHER - 02/03/2024 12:20 PM CDT SURGERY PROGRESS NOTE--SPORTS JOURNALIST Cathy Raymond : 1965 Sex: female SIGNIFICANT [...] polyneuropathy with neurogenic bowel/bladder, DM type 2, MXA, gastric bypass 2002 with history of marginal [...] Carter Maurer APRN, RALPH, 02/03/2024 12:21 PM [facility] Department of Surgery Pager: via telemediq I have spent 30 minutes with this patient today in which greater than 50% of this time was spent incounseling/coordination of care regarding in patient care, review of imaging/labs, chart review andconsultant recommendations. Dictation Disclaimer: Some notes are completed with voice-recognition dictation software. Errors are generally corrected in real time. Please contact me via [employer]iWi-[employer] staff message if you note any errors requiring clarification. Associated attestation - Moises Montana MD - 02/09/2024 3:39 PM CDT FACULTY NOTE I saw and evaluated the patient on the date of the screen writer's note. I discussed with the screen writer of the note and agree with their findings and plan documented in the screen writer's note from above. Any revisions by me are documented. Moises Montana MD, 02/09/2024 3:39 PM * Sara Hdez RN - 02/03/2024 12:09 PM CDTSummary: Discharge planning Care Coordination Assessment Patient Name: Cathy Raymond Date: 02/03/2024 Expected DC Date: 02/06/2024 Social Information Airways Operations Specialist Used: None needed Decision Maker at Admission: Self Living Situation: Home Patient Identified Support System: Services Receiving: PC TECH / Skilled Services ([facility] care for OT, PT, RN) Complex Medical Needs: None Transportation Used for Discharge: stretcher Safety Concerns: None Behavioral Health Concerns: None Patient Family Goals Patient's Discharge Goal: agreeable to consider TCU in [place] Family's Discharge Goal: n/a Plan/Interventions Discharge Plan: SNF Was Patient Choice Provided?: Yes Who was Choice Provided to?: Patient Patient Information Verification Verified demographic information, including SSN, Next of Kin, and Guardianship: Yes Verified PCP: Yes If post-acute placement is needed, have vaccination status needs been addressed?: Not applicable Risks for Readmission: None Summary of pertinent information: Patient admitted in transfer from [facility] with concern for left femur fracture from a fall and sigmoid volvulus. She continues to await medical clearancefor surgery. Had patient sign FRED to get imaging pushed from both [facility] and [facility]. Sent FRED to both places, anticipate that imaging should be available soon. Anticipate that she will require TCU placement. She prefers [place] and has been at facilities there previously. Currently open to home care through [facility]. Will continue to follow. Sara Hdez [...] Constipation # Insomnia # GERD - Continue PAINT BRUSH MAKER cetirizine, citalopram, gabapentin, levothyroxine, pantoprazole, PEG/senna, trazodone - HOLD oxybutynin - Check Hb A1c Subjective/Events of Past 24 Hours: Hospital Day: 1 Reports fine No nausea or vomiting No abdominal pain Objective: Physical Exam GEN: NAD, laying in bed RES: clear lungs, on wheezing, rales or rhonchi CV: r/r/r, no murmurs, rubs or gallops ABD: distended Labs reviewed Charge Capture Transportation Worker * Giselle Johansen MD - 02/03/2024 4:42 [...] Component Value Ref Range Date/Time URINE CULTURE [[id number]] Collected: 02/02/24 170 Specimen: Urine Updated: 02/02/242204 BODY FLUID CULTURE:INCLUDES GRAM STAIN [[id number]] Collected: 02/02/241950 Specimen: Peritoneal Fluid from Peritoneum [...] PM CDT MEDICINE HISTORY AND PHYSICAL Cathy Kerri Segundo : 1965 Sex: female Attestation with edits [...] Constipation # Insomnia # GERD - Continue PAINT BRUSH MAKER cetirizine, citalopram, gabapentin, levothyroxine, pantoprazole, PEG/senna, trazodone [...] (A) NEGATIVE Ketones TRACE (A) NEGATIVE Specific [place] 1.024 1.003 - 1.030 Blood Ur LARGE (A) Neg-Trace PH Urine 6.0 5.0 - 7.0 Protein Ur 30 (A) Neg-Trace Urobilinogen >=8 (A) NORMAL EU/dL Nitrite Ur NEGATIVE NEGATIVE Leuk Est SMALL (A) Neg-Trace WBC Ur 6-10 (A) 0 - 5 perHPF RBC Ur >20 (A) 0 - 3 perHPF SQ EPITH 0-5 0 - 5 perHPF Bacteria UA PRESENT Urinalysis Performed at: [facility] BODY FLUID CELL COUNT/DIFF Result Value Ref [...] Line Date/Time: 02/27/2024 11:40 AM Performed by: Patricai Dumont RN Authorized by: Nino Ramírez MD [place] Protocol: Verbal consent obtained?: Yes Written consent [...] total length, 2 cm out secured with [id number]; AC to IS: 5 cm; Circumference 10 cm above AC: 24 cm) Catheter educational fundraising director: Bard Lot Number: [id number] Pre-procedure: landmarks identified Ultrasound guidance: Yes Number [...] to verify the correct patient, procedure, equipment, personal support worker and site/side marked as required. Initial or [...] to verify the correct patient, procedure, equipment, personal support worker and site/side marked as required. Initial or [...] to verify the correct patient, procedure, equipment, personal support worker and site/side marked as required. Initial or [...] and cytology examination : No Patient to [facility] [place] for post-procedure monitoring. Patient education sheets given regarding post-care. * Humphrey Rose MD - 02/02/2024 10:03 PM CDTAssociated Order(s): Paracentesis Paracentesis Performed by: Cooper Loaiza MD Authorized by: Humphrey Rose MD Consent: Consent obtained: Verbal Consent given by: Patient Risks discussed: Bleeding, bowel perforation and infection Alternatives discussed: No treatment [place] protocol: Patient identity confirmed: Verbally with patient [...] Analgesia without sedation, anxiolysis and regional anesthesia [place] protocol: Procedure explained and questions answered to [...] vital sign checks, continuous pulse oximetry and personnel monitor Intra-procedure events: respiratory depression Intra-procedure management: [...] Hobbs MD - 02/20/2024 6:27 PM CDT [facility] SUR[facility]ERY NEW PATIENT CONSULT Cathy Raymond : [...] 02/20/2024 6:27 PM General Surgery, PGY-2 Pager: [phone] or [email or web address] Chief Complaint: Abdominal pain/distention History of Present [...] one daughter and two grandchildren. She is Uatsdin. When feeling well she likes to have [...] CR 0.61 02/20/2024 07 CA 8.0 (L) 02/20/2024743 CBC Lab Results [...] evidence of obstruction, volvulus, or perforation.Findings suggest Maryknoll syndrome. 2. Postsurgical changes of Gina-en-Y gastric [...] BMI: Body mass index is 32.99 kg/m??. [place] body weight: 63.6 kg Weight hx: 93 [...] Manning Segundo - : 1965 - MR# [id number] - Date: 02/18/2024 Reason For Consultation: The [...] Recommendations: Not applicable WO Nursing follow up: Appreciate the opportunity to consult on this patient, Wound Ostomy Continence Services will sign off at this time. Please place additional 'Wound Consult' if wanting further assessment for this patient. Staff to continue to follow skin injury bundle. Escalate concerns to WOCN through additional consult or to the provider when barriers are identified. WOCN available Thursday through Thursday on [employer] or [phone] Cristela Gleason CWOCN, 02/18/2024 2:04 PM * Isidoro Guerrero CWON - 02/09/2024 2:42 PM CDT Images from the original note were not included. Wound Ostomy Continence Nurse Consult Cathy Raymond - : 1965 - MR# [id number] - Date: 02/09/2024 Reason For Consultation: The patient is being seen in consultation at the request of test analyst for evaluation of ulceration to gluteal cleft. [...] identified. WOCN available Thursday through Thursday on [employer] or [phone] Isidoro Guerrero CWON, 02/09/2024 2:43 PM * Ashley Park OTR/Bethanie - 02/07/2024 3:53 PM CDT OCCUPATIONAL THERAPY [...] seat;tub / shower chair;hand held shower head;grab bars;material handler 1st shift Prior Level of Function: ADLs/IADLs: Received assistance from family / friends;Received assistance from PC TECH for hours per day / days per [...] to a TCU near her home in [place] when medically stable. (See box at the [...] Eval: 29 minutes Therapist: AUDIE Landaverde Pager: [employer] Occupational Therapy Department * Rose Marie Early, [...] of function: Reportedly Alycia with stand pivots bed<>MW Baseline Ambulation: Non-Ambulatory Assist available at home: Yes, 27/04 from Stairs required at home: No Has ramp to enter home Previous assistive device used: Front - wheeled walker, 4 -wheeled walker, Manual wheelchair, Toilet riser, and son lift Services at home: PC TECH services MWF, home PT / OT / RN SUBJECTIVE Patient's Stated Goals: to get stronger and more independent with mobility Pain: /10 resting located in RLE 02/11 with activity [...] in near 90/90 hip/knee positioning (WFL for [facility] seating). Transfers & Bed Mobility: Supine to [...] reportedly Alycia with stand pivot transfers to [facility] (GLF during tx resulted in femur fx), has 24/7 assist from , PC TECH services 3x/wk, and home PT / OT [...] viasara steady, up to chair as appropriate. PAINT BRUSH MAKER Appropriate: No (needs mobility progressed) Participated in goal setting and treatment planning: Patient Agrees with goals and treatment plan: Patient - Yes. Rose Marie Early, PT 02/06/2024 Pager: [email or web address] PT Department * Dominic Castorena MD - [...] set of blood cultures were taken at [facility] in which 2 of 2 bottles [...] over the next few days. Please page quarry supervisor dimension stone resident with questions. Patient was seen with quarry supervisor dimension stone staff, Dr. Roth PROCEDURE: Risks and benefits [...] States that she follows up with a link trainer operator in [place] and has had extensive surgery of the [...] CWOCN - 02/04/2024 3:36 PM CDT DAP: [facility] nursing attempted to see patient x 2 [...] with questions or concerns. Mindy Swan, DARIO, CHILDHOOD TEACHER, 02/03/2024 3:00 PM Palliative Medicine Available Telmediq [...] helps her at home along with a PC TECH. States that she broke her other femur [...] their hobbies, activities and interests, spirituality or yarsanism, personal experience with end of life, and personal hopes, worries. Thisbackground is essential in understanding what is most important and how that can change throughout the course of a serious illness. This summary is an attempt to highlight that background. Social History Social History Narrative Tiny is to her , Jai. She has one daughter and two grandchildren. She is Uatsdin. When feeling well she likes to have [...] specifically on review of CT scans from [facility] dated 07/08/2022 and [facility] dated111/21/2020, it appears patient has had a chronically dilated sigmoid colon, possibly dating back [id number]. Also has known chronic constipation and neuropathy [...] c/b ascites MELD 3.0 16 Established at [facility] Gastroenterology, last seen 12/15/2013. Etiology felt [...] cirrhosis. 09/20/2021 CT CAP with IV contrast ([facility]): IMPRESSION: 1. Minimally more prominent left axillary [...] AND RADIOLOGY DATA: Lab results: Reviewed via OptiWi-fi. Radiology Results: Reviewed in [facility]. Patient seen by and discussed with Surgery Chief Resident and Staff Physician. Nestor Miranda MD, 02/03/2024 3:47 AM Associated attestation - Moises Montana MD - 02/09/2024 3:34 PM CDT FACULTY NOTE I saw and evaluated the patient on the date of the screen writer's note. I discussed with the screen writer of the note and agree with their findings and plan documented in the screen writer's note from above. Any revisions by [...] acholic cirrhosis, R TKA around 2017 in [place], [place],L femur fx s/p surgical fixation ~ 2019 at [facility], idiopathic progressive neuropathy, hypothyroidism,chronic neuropathic pain, DMII [...] - disability Lives with in house in [place], [place] ALLERGIES: Allergies Allergen Reactions Amoxicillin-Pot Clavulanate [...] Henning MD - 02/05/2024 4:06 PM CDT [facility] [id number] [facility] OPERATIVE REPORT PATIENT: Cathy Raymond : 1965 DATE OF PROCEDURE: 02/05/24 SURGEON: Dayo Henning MD - Primary MANAGER LAN SURGEON: Serge Parker DO - Fellow Ian [...] Implant Name Type Inv. Item Serial No. Staff Research Associate Lot No. LRB No. Used Action FEMORAL NAIL RETROGRADE [id number] Krystle FEMORAL NAIL RETROGRADE [id number] [employer] [id number] Right 1 Implanted 5.0X60MM 2361-5060S Screw/Brunswick 5.0X60MM 2361-5060S [employer] [id number] Right 1 Implanted 5.0X70MM 2361-5070S Screw/Brunswick 5.0X70MM 2361-5070S [employer] [id number] Right 1 Implanted 5.0X75MM ADV 2361-5075S Screw/Brunswick 5.0X75MM ADV 2361-5075S [employer] [id number] Right 1 Implanted FREEHAND DRILL [id number] Drill bit/kiara FREEHAND DRILL [id number] [employer] [id number] Right1 Implanted 5.0X42.5MM 2360-5042S Screw/Brunswick 5.0X42.5MM 2360-5042S [employer] [id number] Right 1 Implanted INDICATIONS: Cathy Raymond is a 58 y.o. female who presented to [facility] with right leg pain after a fall. [...] proximal thigh. This was performed using perfect galena technique. A stab incision was made over [...] primary nurse, Catarino. * Ileana Howell APRN, CHILDHOOD TEACHER - 02/02/2024 9:19 PM CDT Transfer of [...] T2DM, HTN who presents as transfer from [facility] for RIGHT midshaft femur fracture after mechanical [...] Wt 98.8 kg (217 lb 13 oz) [id number]% Upon assuming care, I reviewed the chart, [...] NEGATIVE Bili UA TRACE(!) Ketones TRACE(!) Specific [place] 1.024 Blood Ur LARGE(!) PH Urine 6.0 Protein Ur 30(!) Urobilinogen >=8(!) Nitrite Ur NEGATIVE Leuk Est SMALL(!) WBC Ur 6-10(!) RBC Ur >20(!) SQ EPITH 0-5 Bacteria UA PRESENT Urinalysis Performed at: [facility] Receiving CTX 2122 LFTs(!): Total Protein 5.8(!) [...] in real time. Please contact me via OptiWi-fi staff message if you note any errors requiring clarification. * Natacha Mcadams RN - 02/02/2024 9:16 PM CDT Traction set to 20 pounds. * Natacha Mcadams RN - 02/02/2024 9:00 PM CDT Xray at bedside * Natacha Mcadams RN - 02/02/2024 8:41 PM CDT Patient transported to [facility] for sedation for krystle placement and traction. * Enedina Austin MD - 02/02/2024 6:08 PM CDT Graduate Recruiter of the Day (MOD) Triage/Communication Note Sign out received from Cooper in [facility] (team center/clinic). Requested unit: G3 (choose from: any medicine floor, specific medicine floor with rationale, CaRe, RTU, MICU). Patient status: INPT. (Obs v. Inpt) Cardiac telemetry needed? (specify if remote telemetry OK). Summary of verbal sign out given by ED/clinic DATA DELIVERABLES MANAGER: Cirrhosis, right femur fracture 58yo hx of cirrhosis, transferred from [facility] for a femur fracture after a fall at home. Has 2 total knee replacement. Has displaced mid-shaft right femur fracture -- ortho has been consulted. Got ancef for right foot wound. Has UTI - getting ceftriaxone ED to do paracentesis. Enedina Austin MD, 02/02/2024 6:13 PM Staff Physician, [facility] Medicine Note is for communication only, not billing * Cooper Loaiza MD - 02/02/2024 3:32 PM CDT Images from the original note were not included. ED Provider Note Cathy Raymond : 1965 Sex: female Patient Arrival Date and Time: 02/02/2024 3:17 PM HPI 58F w/ hx etoh cirrhosis, chronic lymphedema presents as transfer from [facility] for mechanical fall after feeling legs become [...] subsequent R femur fracture. Ortho consulted, recs asbjamison and ultimately placed in traction with procedural [...] NEGATIVE Bili UA TRACE(!) Ketones TRACE(!) Specific [place] 1.024 Blood Ur LARGE(!) PH Urine 6.0 Protein Ur 30(!) Urobilinogen >=8(!) Nitrite Ur NEGATIVE Leuk Est SMALL(!) WBC Ur 6-10(!) RBC Ur >20(!) SQ EPITH 0-5 Bacteria UA PRESENT Urinalysis Performed at: [facility] Grossly concerning for infection; will treat with [...] 02/02/2024 3:17 PM CDT BIBA as a [facility] transfer. EMS was called around 0945 for a stumble and fall. HX of ETOH with cirrohsis and ascites. Right mid-shaft with Morphine and dilaudid in [place] ED. 4 mg morphine en route. Pain rating 3 or 4/10 2 g cefazolin en route 20 RFA * Maggie Tariq RN - 02/02/2024 1:44 PM CDT Report called from [facility]. Pt is non weight bearing and lives [...] Toe Head to Toe Assessment Shift Summary [id number] Pt A&O. Makes needs known. Denies pain [...] 21 (PICC) Peripherally Inserted Central Catheter 5 Welsh 43 cm, 2 cm out Basilic 02/27/24 [...] 20 (PICC) Peripherally Inserted Central Catheter 5 Welsh 43 cm, 2 cm out Basilic 02/27/24 [...] Arm 02/11/241999 -- 16 Fecal Management/Containment System 05/18/24 2012 -- 7 Rash 02/02/24 2347 groin [...] 20 (PICC) Peripherally Inserted Central Catheter 5 Welsh 43 cm, 2 cm out Basilic 02/27/24 [...] 20 (PICC) Peripherally Inserted Central Catheter 5 Welsh 43 cm, 2 cm out Basilic 02/27/24 [...] 19 (PICC) Peripherally Inserted Central Catheter 5 Welsh 43 cm, 2 cm out Basilic 02/27/24 [...] bath provided. at bedside this afternoon. Stacy Laughlin, RN, 02/27/2024 2:44 PM Neurologic/Cognitive Within Defined [...] Stool (unmeasured): 1 (02/20/241999) Stool Amount: large (02/27/2443) Stool Color: brown (02/27/24 0543) Stool Consistency: liquid (02/27/2443) Liquid Stool (mL): [...] 02/20/242011 -- 6 Rash 02/02/24 2347 groin 04/30/24 2347 -- 24 Wound 02/03/24 Pedal Anterior;Right [...] 19 (PICC) Peripherally Inserted Central Catheter 5 Welsh 43 cm, 2 cm out Basilic 02/27/24 [...] Cavazos PA-C - 02/27/2024 12:00 AM CDT Rip [...] Knee Anterior;Right 02/05/24 1331 Knee 21 Wound 05/03/24 Incision Leg Distal;Upper;Right 02/05/24 1443 Leg 21 [...] applied. Dressing to R foot changed. This screen writer noted this AM that pt has a Cano tube in rectum and attached to suction however there are no orders for suction or managing the tube. Reached out to primary team who instructed this screen writer to leave it attached to suction while they paged the surgery team for clarification. During yulia cares, this screen writer noted blood blisters on both sides [...] rectal tube is out, and patient inform screen writer she wants surgery to access the area. Polygraph Operator updated provider and other staff about patient distended abdomen, awaiting response. Polygraph Operator was informed by provider to reinstate rectal tube. Polygraph Operator asked for assistance, from charge nurse and [...] Incontinent to B/B. Rectal tube came out screen writer tried to replace it but pt [...] retention - straight cath Not sent to [facility] for secondary review. * Nursing Assessment - [...] rectal tube and suction in placed and screen writer and HCA reposition patient to a comfortable position. Patient is on room air, lower extremities elevated on pillows. Denies SOB, nausea and vomiting, and requested for snacks and beverages given. Cano in tactand patent. Polygraph Operator will continue to monitor. Within Defined Limits [...] Toe Head to Toe Assessment Shift Summary [id number] Alert and oriented x 4, uses call [...] elastic straps and attached to cano bag. Polygraph Operator note significant amount of gas in cano [...] place, draining brown loose stool, green tube [id number] at 45ml , Flushed 30ml in purple [...] Defined Limits * Nursing Assessment - Amada Hogan, GEOFF - 02/21/2024 9:06 PM CDT Nursing Assessment [...] Toe Head to Toe Assessment Shift Summary [id number] Alert and oriented x4. Has pain to [...] the patient's presentation is most consistent with [place]oll and recommend urgent GI consultation for decompression. [...] 02/20/2024 12:27 AM * Nursing Assessment - Thalia Miranda RN - 02/19/2024 8:26 PM CDT Nursing [...] to Toe Assessment Shift Summary Shift Summary [id number] Received the food she ordered for supper [...] -- 6 Rash 02/02/24 2347 groin 02/02/24 234 -- 15 Wound 02/03/24 Pedal Anterior;Right 02/03/24 [...] to Toe Assessment Shift Summary Shift Summary [id number] Pt is AO x4, pleasant, liable. Eats [...] Toe Head to Toe Assessment Shift Summary 5614-1241 Alert and oriented, able to use call light to report needs, vs wnl on ra, reported 7/10 aching painto LLE, oxycodone and tylenol given for pain relief, cms intact, wiggle toes, LLE elevated on pillows, aced wrap dressing c/d/I, pt teary in request to have anything to eat, this screen writer educated pt that she is on regular/ 2 gm sodium diet, pt agreed to eat the meal per order, T&R, urinary catheter draining yellow clear urine, catheter cares completed, distended abd, denied pain to abd, no acute changes, intentional rounding, will continue to monitor. Filed Vitals: 02/17/24 0928 BP: 92/50 Pulse: 79 Resp: 18 Polygraph Operator offered to do dressing change, pt was agitated reporting she did not get the correct dinner,refused dressing change after it was offered twice, 1 loose stool, oxycodone for pain, no acute changes, intentional rounding, will continue to monitor. Nilay Darden RN, 02/17/2024 7:39 PM Assessment Within Defined [...] Toe Head to Toe Assessment Shift Summary [id number] No acute events overnight. Q2H repositioning; patient [...] consistently greater than 350 mL) 02/07/240 -- 8 Psychosocial Within Defined Limits Yordan Garcia RN, 02/16/2024 3:54 AM * Nursing Assessment - Jose, GEOFF Davis - 02/15/2024 3:38 PM CDT [...] known. Paged tx team upon return from [facility] xray for diet order. Neurologic/Cognitive [...] RN - 02/15/2024 12:14 AM CDT Summary: [id number] Nursing Assessment Head to Toe Head to Toe Assessment Shift Summary Pt is A&OX4. Pt is NPO at midnight. Q2H turns performed. Abdomen is taut and distended r/t ascites. Pt has redness to buttocks with barrier cream protecting. Inter-dry and nystatin powder protecting skin breakdown to abdominal and groin folds. Pt reports pain 10 to RLE. Dressing to R hip is [...] Toe Head to Toe Assessment Shift Summary [id number] No acute changes.Pt is alert and oriented [...] Within Defined Limits * Nursing Assessment - Odessa-Thu French RN - 02/13/2024 12:38 AM CDT Summary: [id number] Nursing Assessment Head to Toe Head to Toe Assessment Shift Summary Pt is A&OX4. BP trending on low end (94/61 at 0024). Pt c/o pain 10 to RLE and this screen writer gave prn oxycodone and repositioned for [...] 02/11/241999 -- 1 Rash 02/02/24 2347 groin 02/02/242346 -- 10 Wound 02/03/24 Pretibial [...] Nursing Assessment - Rozina Lainez RN - 02/12/2024 4:41 PM CDT Nursing [...] -- less than1 Rash 02/02/24 2347 groin 02/02/242346 -- 9 Wound 02/03/24 Pretibial Left 02/03/24 [...] Head to Toe Assessment Shift Summary Shift [id number] Patient returned to room from procedure at [...] with PRN IV push dilaudid. Sleeping on reassessment.Cnao in place. Urine drainage mili/tea color. Hector [...] less than1 Rash 02/02/24 2347 groin 02/02/24 234 -- 9 Wound 02/03/24 Pretibial Left 02/03/24 [...] Tim Zapata MD General Surgery, PGY-2 Pager: [phone] or Telemediq * Cross Cover - Khloe Reyes PA-C - 02/11/2024 7:20 PM CDT Paged by Epifanio CALENDER INSPECTOR nurse regarding NG tube. On chart review appears CT ordered this afternoon shows increased rectosigmoid colonic distention with increased distal fecal contents. 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 NG was ordered by day team for decompression; however, CALENDER INSPECTOR RN does not feel appropriate for placement given cirrhosis and bleeding risk (reviewed lack of varices on EGD 09/26 and labs, but still feels too high risk). Epifanio notes this will need to be placed by IR if surgery unable to place overnight. CALENDER INSPECTOR and bedside RN asking for clarification on [...] PM I spoke with vice president of human resources who notes they could place NG tube [...] distended. Order for NGT this evening however CALENDER INSPECTOR nurse would not place because patient had [...] Toe Assessment Shift Summary Day Nursing Note [id number]: Alert and oriented. Tearful this AM re: [...] Toe Assessment Shift Summary Day Nursing Note [id number]: Alert and oriented. Reported 05/14 RLE pain, [...] Toe Head to Toe Assessment Shift Summary [id number] Pt A&Ox4. Endorsed pain to to RLE. [...] report. Patient abdomen very extended and hard. Polygraph Operator notedno urine output and straight cath for 300 ml at 1400. Patient reports being incontinent at baselineand was incontinent of stool one time this shift. Polygraph Operator placed external catheter on patient at 1700 after diuretic administration. Patient very anxious when repositioning . Wound vac failed and screen writer notified ortho provider. Provider reports that wound vac is just over pin site and can go withoutit if unable to get a new one tonight. Patients groin is raw and red and screen writer provided nystatin and lotion to area. Wound care done per order by screen writer to coccyx. Patient does not tolerate [...] Toe Head to Toe Assessment Shift Summary [id number] Pt A&Ox4. Endorsed pain to to RLE. [...] of pain. [facility] high skin risk and current skin [...] not present * Nursing Assessment - Allie Alexandra, RN - 02/06/2024 3:26 AM CDT Nursing Assessment Head to Toe Head to Toe Assessment Shift Summary [id number] Pt Sleeping upon shift change. Endorsed pain to to RLE. PRN given per dec. Pt sleeping on reassessment. POD #0. Numbness to RLE. Other CMS intact. Leg elevated and ICE pack provided. Paracentesis site draining small output. Cano in place draining well. Pt drinking fluids well. Pt informed screen writer she will call when she needs [...] Jorge MD - 02/05/2024 1:31 PM CDT [facility] Immediate Post Operative Note Note [...] Implant Name Type Inv. Item Serial No. Staff Research Associate Lot No. LRB No. Used Action FEMOR[employer]RO[employer]ADE [id number] Krystle [employer]ROGRADE [id number] [employer] [id number] Right 1 Implanted 5.0X60MM 2361-5060S Screw/Brunswick 5.0X60MM 2361-5060S [employer] [id number] Right 1 Implanted 5.0X70MM 2361-5070S Screw/Brunswick 5.0X70MM 2361-5070S [employer] [id number] Right 1 Implanted 5.0X75MM ADV 2361-5075S Screw/Brunswick 5.0X75MM ADV 2361-5075S [employer] [id number] Right 1 Implanted FREEHAND DRILL [id number] Drill bit/kiara FREEHAND DRILL [id number] [employer] [id number] Right1 Implanted 5.0X42.5MM 2360-5042S Screw/[place]runswick 5.0X42.5MM 2360-5042S [employer] [id number] Right 1 Implanted Intraoperative Findings: see op [...] check Vignesh Jorge MD Orthopaedic Surgery PGY-3 [facility] Orthopaedic Trauma Service * Nursing Assessment - [...] Within Defined Limits * Nursing Assessment - Odessa-Thu French RN - 02/05/2024 12:19 AM CDT Summary: [id number] Nursing Assessment Head to Toe Head to Toe Assessment Shift Summary Pt is A&OX4 with VSS on RA. Pt has very distended and taut stomach, paracentesis site drained 625 mL yellow fluid from ostomy bag. NPO status maintained. Cano catheter in place draining mili concentrated urine. Pt reports neuropathy at baseline and CMS is intact to RLE. This screen writer attempted to give CHG bath and [...] RN - 02/04/2024 10:17 PM CDT Summary: [id number] Nursing Assessment Head to Toe Head to [...] 2 Rash 02/02/24 2347 groin 02/02/242346 -- 1 [...] Rash 02/02/242346 groin 02/02/242346 -- 1 Rash 02/02/24234702/02/242347 -- 1 Wound 02/03/24 Pretibial Left 02/03/24 [...] 1200 Sacrum less than 1 Urinary Catheter 04/30/24 1714 -- 1 Psychosocial Within Defined Limits [...] * Interdisciplinary Note - Carter Maurer APRN, CHILDHOOD TEACHER - 02/03/2024 12:38 PM CDT SURGERY PROVIDER [...] Carter Maurer APRN, CNP, 02/03/2024 12:38 PM [facility] Department of Surgery Pager: via telemDesign A * Nursing Assessment - Chelsi Mehta RN - 02/03/2024 6:35 AM CDT Nursing Assessment Head to Toe Head to Toe Assessment Shift Summary Shift Summary Pt arrived to FLO from ED AT AROUND 1130 Admitted for [...] right femur, initial encounter for closed fracture ([facility]) Humphrey Rose MD, 02/02/2024 4:55 PM documented in this encounter Plan of Treatment Upcoming Encounters Date Type Department Care Team (Late st Contact Info) Description 03/03/2024 10:00 AM CDT [facility] [address] [place] [phone] Lia Mcclellan, NEHA [address] [place] [phone] Scheduled Discharge Disposition: Discharged to home or self care (routine discharge) 03/17/2024 9:45 AM CDT [facility]ointment [facility] [address] [place] [phone] Scheduled Discharge Disposition: Discharged to home or self care (routine discharge) 03/17/2024 10:00 AM CDT [facility] [address] [place] [phone] Dayo Henning MD [address] [place] [phone] Scheduled Discharge Disposition: Discharged to home or self care (routine discharge) Pending Results Name Type Priority Associated Diagnoses Date /Time PREALBUMIN Lab Routine 02/27/2024 4:2 2 PM CDT Scheduled Orders Name Type Priority Associated Diagnoses Orde r Schedule XR FEMUR RIGHT AP + LAT* Imaging Routine Other fracture of right femur, initial encounter for closed fracture ([facility]) Expected: 03/19/2024 (Approximate), Expires: 04/18/2025 PANEL [...] POC GLUCOSE Routine 02/11/2024 10:43 PM CDT COLONOSCOPY-DIAGNOSTI C Routine 02/11/2024 9:24 PM CDT [...] (BLOOD ADMIN) Routine 02/05/2024 1:19 PM CDT IM KRYSTLE FEMUR Urgent (< 48 hrs) 02/05/2024 12:37 [...] POC Glucose 105(H) 70 - 100 mg/dL [facility] - POINT OF CARE Blood 02/29/2024 6:45 AM CDT Humphrey Rsoe MD LABORATORY [facility] - POINT OF CARE [address] [place] [address], [place] * POC GLUCOSE (02/28/2024 9:12 PM CDT) POC Glucose 94 70 - 100 mg/dL [facility] POINT OF CARE Blood 02/28/2024 9:12 PM CDT Humphrey Rose MD LABORATORY [facility] POINT OF CARE [address] [place] [address], [place] * POC GLUCOSE (02/28/2024 4:38 PM CDT) POC Glucose 96 70 - 100 mg/dL [facility] POINT OF CARE Blood 02/28/2024 4:38 PM CDT Humphrey Rose MD LABORATORY [facility] POINT OF CARE [address] [place] [address], [place] * (ABNORMAL) POC GLUCOSE (02/28/2024 11:38 AM CDT) POC Glucose 101(H) 70 - 100 mg/dL [facility] POINT OF CARE Blood 02/28/2024 11:3 8 AM CDT Humphrey Rose MD LABORATORY [facility] POINT OF CARE [address] [place] [address], [place] * POC GLUCOSE (02/28/2024 6:30 AM CDT) POC Glucose 91 70 - 100 mg/dL [facility] - POINT OF CARE Blood 02/28/2024 6:30 AM CDT Humphrey Rose MD LABORATORY [facility] - POINT OF CARE [address] [place] [phone], * PHOSPHORUS (02/28/2024 6:00 AM CDT) Pathologist [facility] Phosphorus 3.7 2.5 - 4.5 mg/dL [facility] Blood 02/28/2024 6:00 AM CDT 02/28/2024 6:12 AM CDT Nino Ramírez MD LABORATORY Performing Organization Address [facility] Co de Phone Number [facility] [address] [address] * MAGNESIUM (02/28/2024 6:00 AM CDT) Pathologist [facility] Magnesium 2.0 1.6 - 2.6 mg/dL [facility] Blood 02/28/2024 6:00 AM CDT 02/28/2024 6:12 AM CDT Nino Ramírez MD LABORATORY Performing Organization Address [facility] Co de Phone Number [facility] [address] [address] * CALCIUM,IONIZED (02/28/2024 6:00 AM CDT) PH 7.38 7.32 - 7.42 [facility] ICA, Actual 4.57 4.40 - 5.20 mg/dL [facility] ICA, pH Corrected 4.52 4.40 - 5.20 mg/dL [facility] Blood 02/28/2024 6:00 AM CDT 02/28/2024 6:15 AM CDT Narrative [facility] - 02/28/2024 6:35 AM CDT Send specimen on ice! Nino Ramírez MD LABORATORY Performing Organization Address City/[facility]/ZIP Co de Phone Number [facility] [address] [address] * (ABNORMAL) PANEL BASIC METABOLIC (BMP) (02/28/2024 6:00 AM CDT) Sodium 133(L) 135 - 148 mmol/L [facility] Potassium 3.5 3.5 - 5.3 mmol/L [facility] Chloride 102 92 - 108 mmol/L [facility] AnGap 7(L) 8 - 16 mmol/L [facility] CO2 24 22 - 30 mmol/L [facility] Glucose 87 70 - 100 mg/dL [facility] BUN 9 6 - 20 mg/dL [facility] Creatinine 0.46(L) 0.50 - 1.00 mg/dL [facility] Calcium 8.0(L) 8.6 - 10.0 mg/dL [facility] eGFR (2020 CKD-EPI) 110 >=60 ml/min/1.7 3m2 [facility] Comment: The estimated glomerular filtration rate (eGFR) was calculated using the CKD-EPI 2020 creatinine equation, which does not include race as a factor. This equation is validated in individuals 18 years of age and older, and eGFR is normalized to a body surface area of 1.73m^2. Blood 02/28/2024 6:00 AM CDT 02/28/2024 6:12 AM CDT Nino Ramírez MD LABORATORY Performing Organization Address [facility]/ZIP Co de Phone Number [facility] [address] [address] * (ABNORMAL) POC GLUCOSE (02/27/2024 9:18 PM CDT) POC Glucose 107(H) 70 - 100 mg/dL [facility] - POINT OF CARE Blood 02/27/2024 9:18 PM CDT Humphrey Rose MD LABORATORY Performing Organization Address City/[facility]/ZIP Co de Phone Number [facility] - POINT OF CARE [address] [place] [address], * (ABNORMAL) POC GLUCOSE (02/27/2024 4:32 PM CDT) POC Glucose 105(H) 70 - 100 mg/dL [facility] POINT OF CARE Blood 02/27/2024 4:32 PM CDT Humphrey Rose MD LABORATORY Performing Organization Address [facility] Co de Phone Number [facility] POINT OF CARE [address] [place] [address], [place] * XR PICC LINE PLACEMENT CHECK [...] POC Glucose 81 70 - 100 mg/dL [facility] POINT OF CARE Blood 02/27/2024 11:5 5 AM CDT Humphrey Rose MD LABORATORY Performing Organization Address City/[facility]/ZIP Co de Phone Number [facility] POINT OF CARE [address] [place] [address], * PICC Line (02/27/2024 11:40 AM CDT) Narrative Patricia Dumont RN - 02/27/2024 11:40 AM CDT Patricia Dumont RN ? 02/27/2024 ??2:00 PM PICC Line Date/Time: 02/27/2024 11:40 AM Performed by: Patricia Dumont RN Authorized by: Nino Ramírez MD ?? [place] Protocol: ??Verbal consent obtained?: Yes ?Written consent [...] total length, 2 cm out secured with [id number]; AC to IS: 5 cm; Circumference 10 cm above AC: 24 cm) ??Catheter educational fundraising director: ??Bard ??Lot Number: ??[id number] ??Pre-procedure: landmarks identified ?Ultrasound guidance: Yes ?Number [...] 7:16 AM CDT) Triglyceride 138 <=150 mg/dL [facility] Comment: Interpretive Data <150 Normal 150-199 Borderline high 200-499 High >=500 Very high Blood 02/27/2024 7:16 AM CDT 02/27/2024 7:35 AM CDT Ernestine Toribio MD LABORATORY Performing Organization Address City/[facility] Co de Phone Number [facility] [place] [phone] * PHOSPHORUS (02/27/2024 7:16 AM CDT) Phosphorus 3.2 2.5 - 4.5 mg/dL [facility] Blood 02/27/2024 7:16 AM CDT 02/27/2024 7:35 AM CDT Ernestine Toribio MD LABORATORY Performing Organization Address City/[facility]/ZIP Co de Phone Number [facility] [address] [address] * MAGNESIUM (02/27/2024 7:16 AM CDT) Magnesium 2.2 1.6 - 2.6 mg/dL [facility] Blood 02/27/2024 7:16 AM CDT 02/27/2024 7:35 AM CDT Ernestine Toribio MD LABORATORY Performing Organization Address [facility] Co de Phone Number [facility] [address] [address] * (ABNORMAL) PANEL BASIC METABOLIC (BMP) (02/27/2024 7:16 AM CDT) Sodium 132(L) 135 - 148 mmol/L [facility] Potassium 3.6 3.5 - 5.3 mmol/L [facility] Chloride 101 92 - 108 mmol/L [facility] CO2 23 22 - 30 mmol/L [facility] AnGap 8 8 - 16 mmol/L [facility] Glucose 81 70 - 100 mg/dL [facility] BUN 9 6 - 20 mg/dL [facility] Creatinine 0.52 0.50 - 1.00 mg/dL [facility] Calcium 7.8(L) 8.6 - 10.0 mg/dL [facility] eGFR (2020 CKD-EPI) 107 >=60 ml/min/1.7 3m2 [facility] Comment: The estimated glomerular filtration rate (eGFR) was calculated using the CKD-EPI 2020 creatinine equation, which does not include race as a factor. This equation is validated in individuals 18 years of age and older, and eGFR is normalized to a body surface area of 1.73m^2. Blood 02/27/2024 7:16 AM CDT 02/27/2024 7:35 AM CDT Ernestine Toribio MD LABORATORY Performing Organization Address City/[facility] Co de Phone Number [facility] [address] [address] * (ABNORMAL) CBC WITH PLTS/AUTO DIFF (02/27/2024 7:16 AM CDT) WBC 3.37(L) 4.00 - 10.00 k/cmm [facility] RBC 3.03(L) 3.90 - 5.20 m/cmm [facility] Hgb 9.1(L) 11.5 - 15.7 g/dL [facility] Hematocrit 29.5(L) 34.0 - 45.0 % [facility] MCV 97.4 80.0 - 100.0 fL [facility] MCH 30.0 25.0 - 32.0 pg [facility] MCHC 30.8(L) 31.0 - 36.0 g/dL [facility] RDW 14.4 11.5 - 14.5 % [facility] Plt 125(L) 150 - 400 k/cmm [facility] MPV 9.3 6.5 - 12.5 fL [facility] Automated Abs Neutrophil 1.31(L) 1.70 - 6.50 k/cmm [facility] Comment:Preliminary ANC, Fin al Result to Follow Abs Immature Granulocyte 0.01 0.00 - 0.09 k/cmm [facility] Comment:The Immature Granulo cyte Absolute count contains metamyelocytes and myelocytes. Abs Neutrophil 1.31(L) 1.70 - 6.50 k/cmm [facility] Abs Lymphocyte 1.63 0.80 - 4.00 k/cmm [facility] Abs Monocyte 0.32 0.20 - 1.00 k/cmm [facility] Abs Eosinophil 0.09 0.00 - 0.60 k/cmm [facility] Abs Basophil 0.01 0.00 - 0.20 k/cmm [facility] Blood 02/27/2024 7:16 AM CDT 02/27/2024 7:35 AM CDT Ernestine Toribio MD LABORATORY Performing Organization Address City/[facility] Co de Phone Number [facility] [place] [address] * POC GLUCOSE (02/27/2024 5:56 AM CDT) POC Glucose 84 70 - 100 mg/dL [facility]INT [facility] CARE Blood 02/27/2024 5:56 AM CDT Humphrey Rose MD LABORATORY [facility] POINT OF CARE [address] [place] [address], * POC GLUCOSE (02/26/2024 11:54 PM CDT) POC Glucose 93 70 - 100 mg/dL [facility] POINT OF CARE Blood 02/26/2024 11:5 4 PM CDT Humphrey Rose MD LABORATORY Performing Organization Address City/[facility] Co de Phone Number [facility] POINT OF CARE [address] [place] [address], * (ABNORMAL) POC GLUCOSE (02/26/2024 6:16 PM CDT) POC Glucose 128(H) 70 - 100 mg/dL [facility] POINT OF [facility] Blood 02/26/2024 6:16 PM CDT Humphrey Rose MD LABORATORY Performing Organization Address [facility] de Phone Number [facility] POINT OF [address] [address], [place] * POTASSIUM (02/26/2024 4:52 PM CDT) Potassium 4.2 3.5 - 5.3 mmol/L [facility] Blood 02/26/2024 4:52 PM CDT 02/26/2024 5:19 PM CDT Ernestine Toribio MD LABORATORY Performing Organization Address City/[facility] Co de Phone Number [facility] [address] [place] [address] * POC GLUCOSE (02/26/2024 11:58 AM CDT) POC Glucose 77 70 - 100 mg/dL [facility] POINT OF [facility] Blood 02/26/2024 11:5 8 AM CDT Humphrey Rose MD LABORATORY Performing Organization Address City/[facility]/ZIP Co de Phone Number [facility] POINT OF [facility] [address] [place] [address], [place] * XR ABDOMEN 1 VIEW* (02/26/2024 [...] CDT) WBC 3.06(L) 4.00 - 10.00 k/cmm [facility] RBC 3.05(L) 3.90 - 5.20 m/cmm [facility] Hgb 9.2(L) 11.5 - 15.7 g/dL [facility] Hematocrit 29.0(L) 34.0 - 45.0 % [facility] MCV 95.1 80.0 - 100.0 fL [facility] MCH 30.2 25.0 - 32.0 pg [facility] MCHC 31.7 31.0 - 36.0 g/dL [facility] RDW 14.8(H) 11.5 - 14.5 % [facility] Plt 144(L) 150 - 400 k/cmm [facility] MPV 9.8 6.5 - 12.5 fL [facility] Automated Abs Neutrophil 1.42(L) 1.70 - 6.50 k/cmm [facility] Comment:Preliminary ANC, Fin al Result to Follow Abs Immature Granulocyte 0.01 0.00 - 0.09 k/cmm [facility] Comment:The Immature Granulo cyte Absolute count contains metamyelocytes and myelocytes. Abs Neutrophil 1.42(L) 1.70 - 6.50 k/cmm [facility] Abs Lymphocyte 1.26 0.80 - 4.00 k/cmm [facility] Abs Monocyte 0.29 0.20 - 1.00 k/cmm [facility] Abs Eosinophil 0.06 0.00 - 0.60 k/cmm [facility] Abs Basophil 0.02 0.00 - 0.20 k/cmm [facility] Blood 02/26/2024 7:17 AM CDT 02/26/2024 7:53 AM CDT Ernestine Toribio MD LABORATORY Performing Organization Address City/[facility] Co de Phone Number [facility] [place] [phone] * PHOSPHORUS (02/26/2024 7:17 AM CDT) Phosphorus 3.4 2.5 - 4.5 mg/dL [facility] Blood 02/26/2024 7:17 AM CDT 02/26/2024 7:54 AM CDT Ernestine Toribio MD LABORATORY Performing Organization Address City/[facility] Co de Phone Number [facility] [address] [address] * MAGNESIUM (02/26/2024 7:17 AM CDT) Magnesium 2.2 1.6 - 2.6 mg/dL [facility] Blood 02/26/2024 7:17 AM CDT 02/26/2024 7:54 AM CDT Ernestine Toribio MD LABORATORY Performing Organization Address City/State/[facility] Co de Phone Number [facility] [address] [address] * (ABNORMAL) PANEL BASIC METABOLIC (BMP) (02/26/2024 7:17 AM CDT) Sodium 132(L) 135 - 148 mmol/L [facility] Potassium 3.2(L) 3.5 - 5.3 mmol/L [facility] Chloride 99 92 - 108 mmol/L [facility] CO2 26 22 - 30 mmol/L [facility] AnGap 7(L) 8 - 16 mmol/L [facility] Glucose 80 70 - 100 mg/dL [facility] BUN 9 6 - 20 mg/dL [facility] Creatinine 0.49(L) 0.50 - 1.00 mg/dL [facility] Calcium 7.8(L) 8.6 - 10.0 mg/dL [facility] eGFR (2020 CKD-EPI) 108 >=60 ml/min/1.7 3m2 [facility] Comment: The estimated glomerular filtration rate (eGFR) was calculated using the CKD-EPI 2020 creatinine equation, which does not include race as a factor. This equation is validated in individuals 18 years of age and older, and eGFR is normalized to a body surface area of 1.73m^2. Blood 02/26/2024 7:17 AM CDT 02/26/2024 7:54 AM CDT Ernestine Toribio MD LABORATORY Performing Organization Address City/[facility]/ZIP Co de Phone Number [facility] [address] [address] * POC GLUCOSE (02/26/2024 6:23 AM CDT) POC Glucose 78 70 - 100 mg/dL [facility] - POINT OF CARE Blood 02/26/2024 6:23 AM CDT Humphrey Rose MD LABORATORY [facility] POINT OF CARE [address] [place] [address], * POC GLUCOSE (02/26/2024 12:01 AM CDT) POC Glucose 76 70 - 100 mg/dL [facility] CARE Blood 02/26/2024 12:0 1 AM CDT Humphrey Rose MD LABORATORY Performing Organization Address [facility]/ZIP Co de Phone Number [facility] POINT OF CARE [address] [place] [address], [place] * POC GLUCOSE (02/25/2024 9:33 PM CDT) POC Glucose 76 70 - 100 mg/dL [facility]ARE Blood 02/25/2024 9:33 PM CDT Humphrey Rose MD LABORATORY Performing Organization Address [facility] Co de Phone Number [facility] POINT OF CARE [address] [place] [address], [place] * XR ABDOMEN 1 VIEW* (02/25/2024 [...] CDT) Phosphorus 3.5 2.5 - 4.5 mg/dL [facility] Blood 02/25/2024 6:22 AM CDT 02/25/2024 6:55 AM CDT Ernestine Toribio MD LABORATORY Performing Organization Address City/[facility]/ZIP Co de Phone Number [facility] [address] [address] * MAGNESIUM (02/25/2024 6:22 AM CDT) Magnesium 2.3 1.6 - 2.6 mg/dL [facility] Blood 02/25/2024 6:22 AM CDT 02/25/2024 6:55 AM CDT Erenstine Toribio MD LABORATORY Performing Organization Address City/[facility]/ZIP Co de Phone Number [facility] [address] [address] * (ABNORMAL) CBC WITH PLTS/AUTO DIFF (02/25/2024 6:22 AM CDT) WBC 2.69(L) 4.00 - 10.00 k/cmm [facility] RBC 3.06(L) 3.90 - 5.20 m/cmm [facility] Hgb 9.2(L) 11.5 - 15.7 g/dL [facility] Hematocrit 28.9(L) 34.0 - 45.0 % [facility] MCV 94.4 80.0 - 100.0 fL [facility] MCH 30.1 25.0 - 32.0 pg [facility] MCHC 31.8 31.0 - 36.0 g/dL [facility] RDW 14.8(H) 11.5 - 14.5 % [facility] Plt 132(L) 150 - 400 k/cmm [facility] MPV 9.7 6.5 - 12.5 fL [facility] Automated Abs Neutrophil 1.09(L) 1.70 - 6.50 k/cmm [facility] Comment:Preliminary ANC, Fin al Result to Follow Abs Immature Granulocyte 0.01 0.00 - 0.09 k/cmm [facility] Comment:The Immature Granulo cyte Absolute count contains metamyelocytes and myelocytes. Abs Neutrophil 1.09(L) 1.70 - 6.50 k/cmm [facility] Abs Lymphocyte 1.25 0.80 - 4.00 k/cmm [facility] Abs Monocyte 0.25 0.20 - 1.00 k/cmm [facility] Abs Eosinophil 0.07 0.00 - 0.60 k/cmm [facility] Abs Basophil 0.02 0.00 - 0.20 k/cmm [facility] Blood 02/25/2024 6:22 AM CDT 02/25/2024 6:55 AM CDT Ernestine Toribio MD LABORATORY [facility] [address] [address] * (ABNORMAL) PANEL BASIC METABOLIC (BMP) (02/25/2024 6:22 AM CDT) Sodium 133(L) 135 - 148 mmol/L [facility] Potassium 3.1(L) 3.5 - 5.3 mmol/L [facility] Chloride 99 92 - 108 mmol/L [facility] CO2 27 22 - 30 mmol/L [facility] AnGap 7(L) 8 - 16 mmol/L [facility] Glucose 77 70 - 100 mg/dL [facility] BUN 10 6 - 20 mg/dL [facility] Creatinine 0.48(L) 0.50 - 1.00 mg/dL [facility] Calcium 7.8(L) 8.6 - 10.0 mg/dL [facility] eGFR (2020 CKD-EPI) 109 >=60 ml/min/1.7 3m2 [facility] Comment: The estimated glomerular filtration rate (eGFR) was calculated using the CKD-EPI 2020 creatinine equation, which does not include race as a factor. This equation is validated in individuals 18 years of age and older, and eGFR is normalized to a body surface area of 1.73m^2. Blood 02/25/2024 6:22 AM CDT 02/25/2024 6:55 AM CDT Ernestine Toribio MD LABORATORY Performing Organization Address [facility] Co de Phone Number [facility] [place] [address] * (ABNORMAL) POC GLUCOSE (02/24/2024 5:53 PM CDT) POC Glucose 106(H) 70 - 100 mg/dL [facility] POINT [facility] CARE Blood 02/24/2024 5:53 PM CDT Humphrey Rose MD LABORATORY Performing Organization Address [facility] de Phone Number [facility] [place] [address], * (ABNORMAL) PANEL HEPATIC FUNCTION (02/24/2024 11:25 AM CDT) Total Protein 5.9(L) 6.4 - 8.3 g/dL [facility] Albumin 2.6(L) 3.8 - 5.1 g/dL [facility] Bili Total 0.6 <=1.2 mg/dL [facility] Bili Direct 0.2 <=0.3 mg/dL [facility] Alk Phos 123(H) 35 - 104 IU/L [facility] Comment:No reference range e stablished for patients <18 years old. ALT (SGPT) <5 <=33 IU/L [facility] AST(SGOT) 27 5 - 40 IU/L [facility] Blood 02/24/2024 11:2 5 AM CDT 02/24/2024 11:56 AM CDT Ernestine Toribio MD LABORATORY Performing Organization Address [facility] Co de Phone Number [facility] [place] [address] * (ABNORMAL) PROTHROMBIN (PT) & INR (02/24/2024 11:25 AM CDT) PT 16.8(H) 9.0 - 12.5 sec [facility] INR 1.5(H) 0.8 - 1.1 [facility] Comment: Warfarin Therapeutic Range: Standard Intensity: 2.0 - 3.0 High Intensity: 2.5 - 3.5 Blood 02/24/2024 11:2 5 AM CDT 02/24/2024 11:56 AM CDT Ernestine Toribio MD LABORATORY Performing Organization Address City/[facility] Co de Phone Number [facility] [place] [id number] * MAGNESIUM (02/24/2024 11:25 AM CDT) Pathologist [facility] Magnesium 2.2 1.6 - 2.6 mg/dL [facility] Blood 02/24/2024 11:2 5 AM CDT 02/24/2024 11:56 AM CDT Ernestine Toribio MD LABORATORY Performing Organization Address [facility] Co de Phone Number [facility] [place] [phone] * (ABNORMAL) PANEL BASIC METABOLIC (BMP) (02/24/2024 11:25 AM CDT) Pathologist [facility] Sodium 132(L) 135 - 148 mmol/L [facility] Potassium 3.5 3.5 - 5.3 mmol/L [facility] Chloride 99 92 - 108 mmol/L [facility] CO2 25 22 - 30 mmol/L [facility] AnGap 8 8 - 16 mmol/L [facility] Glucose 83 70 - 100 mg/dL [facility] BUN 12 6 - 20 mg/dL [facility] Creatinine 0.55 0.50 - 1.00 mg/dL [facility] Calcium 7.5(L) 8.6 - 10.0 mg/dL [facility] eGFR (2020 CKD-EPI) 106 >=60 ml/min/1.7 3m2 [facility] Comment: The estimated glomerular filtration rate (eGFR) was calculated using the CKD-EPI 2020 creatinine equation, which does not include race as a factor. This equation is validated in individuals 18 years of age and older, and eGFR is normalized to a body surface area of 1.73m^2. Blood 02/24/2024 11:2 5 AM CDT 02/24/2024 11:56 AM CDT Ernestine Toribio MD LABORATORY [facility] [address] [address] * (ABNORMAL) CBC WITH PLTS/AUTO DIFF (02/24/2024 11:25 AM CDT) WBC 3.55(L) 4.00 - 10.00 k/cmm [facility] RBC 2.86(L) 3.90 - 5.20 m/cmm [facility] Hgb 8.6(L) 11.5 - 15.7 g/dL [facility] Hematocrit 27.3(L) 34.0 - 45.0 % [facility] MCV 95.5 80.0 - 100.0 fL [facility] MCH 30.1 25.0 - 32.0 pg [facility] MCHC 31.5 31.0 - 36.0 g/dL [facility] RDW 14.9(H) 11.5 - 14.5 % [facility] Plt 146(L) 150 - 400 k/cmm [facility] MPV 9.8 6.5 - 12.5 fL [facility] Automated Abs Neutrophil 1.79 1.70 - 6.50 k/cmm [facility] Comment:Preliminary ANC, Fin al Result to Follow Abs Immature Granulocyte 0.01 0.00 - 0.09 k/cmm [facility] Comment:The Immature Granulo cyte Absolute count contains metamyelocytes and myelocytes. Abs Neutrophil 1.79 1.70 - 6.50 k/cmm [facility] Abs Lymphocyte 1.37 0.80 - 4.00 k/cmm [facility] Abs Monocyte 0.33 0.20 - 1.00 k/cmm [facility] Abs Eosinophil 0.04 0.00 - 0.60 k/cmm [facility] Abs Basophil 0.01 0.00 - 0.20 k/cmm [facility] Blood 02/24/2024 11:2 5 AM CDT 02/24/2024 11:56 AM CDT Ernestine Toribio MD LABORATORY [facility] [address] [address] * XR ABDOMEN 1 VIEW* (02/24/2024 9:02 [...] POC Glucose 80 70 - 100 mg/dL [facility] Blood 02/24/2024 6:51 AM CDT Humphrey Rose MD LABORATORY [facility] POINT [facility] [address] [place] [address], [place] * POC GLUCOSE (02/24/2024 1:36 AM CDT) POC Glucose 81 70 - 100 mg/dL [facility] POINT OF [facility] Blood 02/24/2024 1:36 AM CDT Humphrey Rose MD LABORATORY Performing Organization Address [facility] Co de Phone Number [facility] [address] [place] [address], [place] * (ABNORMAL) POC GLUCOSE (02/23/2024 6:39 PM CDT) POC Glucose 140(H) 70 - 100 mg/dL [facility] Blood 02/23/2024 6:39 PM CDT Humphrey Rose MD LABORATORY Performing Organization Address [facility] de Phone Number [facility] [address] [place] [address], [place] * XR ABDOMEN 1 VIEW* (02/23/2024 2:31 PM CDT) Anatomical Region Laterality Modality Abdomen Computed Radiogr aphy 02/23/2024 2:34 PM CDT Impressions 02/23/2024 2:35 PM CDT Impression: Improved since previous exam. Reading Radiologist: Humphrey Sánchez 02/23/2024 2:35 PM CDT Technique: XR ABDOMEN [...] CDT) Magnesium 2.2 1.6 - 2.6 mg/dL [facility] Blood 02/23/2024 8:46 AM CDT 02/23/2024 1:57 PM CDT Narrative [facility] - 02/23/2024 2:07 PM CDT Add to AM (02/22) labs. Ernestine Toribio MD LABORATORY [facility] [address] [address] * (ABNORMAL) PANEL BASIC METABOLIC (BMP) (02/23/2024 8:46 AM CDT) CO2 24 22 - 30 mmol/L [facility] Glucose 154(H) 70 - 100 mg/dL [facility] BUN 11 6 - 20 mg/dL [facility] Creatinine 0.52 0.50 - 1.00 mg/dL [facility] Calcium 7.6(L) 8.6 - 10.0 mg/dL [facility] Sodium 129(L) 135 - 148 mmol/L [facility] Potassium 3.3(L) 3.5 - 5.3 mmol/L [facility] Chloride 96 92 - 108 mmol/L [facility] eGFR (2020 CKD-EPI) 107 >=60 ml/min/1.7 3m2 [facility] Comment: The estimated glomerular filtration rate (eGFR) was calculated using the CKD-EPI 2020 creatinine equation, which does not include race as a factor. This equation is validated in individuals 18 years of age and older, and eGFR is normalized to a body surface area of 1.73m^2. AnGap 9 8 - 16 mmol/L [facility] Blood 02/23/2024 8:46 AM CDT 02/23/2024 9:23 AM CDT Francy Mc MD LABORATORY Performing Organization Address City/[facility]/ZIP Co de Phone Number [facility] [address] [address] * (ABNORMAL) CBC WITH PLATELET (02/23/2024 8:46 AM CDT) WBC 3.17(L) 4.00 - 10.00 k/cmm [facility] RBC 3.23(L) 3.90 - 5.20 m/cmm [facility] Hgb 9.7(L) 11.5 - 15.7 g/dL [facility] Hematocrit 31.0(L) 34.0 - 45.0 % [facility] MCV 96.0 80.0 - 100.0 fL [facility] MCH 30.0 25.0 - 32.0 pg [facility] MCHC 31.3 31.0 - 36.0 g/dL [facility] RDW 14.9(H) 11.5 - 14.5 % [facility] Plt 138(L) 150 - 400 k/cmm [facility] MPV 10.4 6.5 - 12.5 fL [facility] Blood 02/23/2024 8:46 AM CDT 02/23/2024 9:23 AM CDT Francy Mc MD LABORATORY Performing Organization Address [facility] Co de Phone Number [facility] [address] [address] * POC GLUCOSE (02/23/2024 6:48 AM CDT) POC Glucose 85 70 - 100 mg/dL [facility] Blood 02/23/2024 6:48 AM CDT Humphrey Rose MD LABORATORY [facility]ARE [address] [place] [address], * POC GLUCOSE (02/23/2024 12:07 AM CDT) POC Glucose 74 70 - 100 mg/dL [facility] Blood 02/23/2024 12:0 7 AM CDT Humphrey Rose MD LABORATORY [facility] POINT OF CARE [address] [place] [address], [place] * POC GLUCOSE (02/22/2024 11:29 AM CDT) POC Glucose 91 70 - 100 mg/dL [facility] POINT OF CARE Blood 02/22/2024 11:2 9 AM CDT Humphrey Rose MD LABORATORY Performing Organization Address City/[facility]/ZIP Co de Phone Number [facility] POINT OF CARE [address] [place] [address], [place] * POC GLUCOSE (02/22/2024 6:45 AM CDT) POC Glucose 78 70 - 100 mg/dL [facility] POINT OF [facility] Blood 02/22/2024 6:45 AM CDT Humphrey Rose MD LABORATORY [facility] POINT OF CARE [address] [place] [address], [place] * (ABNORMAL) PANEL BASIC METABOLIC (BMP) (02/22/2024 6:18 AM CDT) CO2 26 22 - 30 mmol/L [facility] Glucose 81 70 - 100 mg/dL [facility] BUN 13 6 - 20 mg/dL [facility] Creatinine 0.52 0.50 - 1.00 mg/dL [facility] Calcium 7.6(L) 8.6 - 10.0 mg/dL [facility] Sodium 132(L) 135 - 148 mmol/L [facility] Potassium 3.5 3.5 - 5.3 mmol/L [facility] Chloride 98 92 - 108 mmol/L [facility] eGFR (2020 CKD-EPI) 107 >=60 ml/min/1.7 3m2 [facility] Comment: The estimated glomerular filtration rate (eGFR) was calculated using the CKD-EPI 2020 creatinine equation, which does not include race as a factor. This equation is validated in individuals 18 years of age and older, and eGFR is normalized to a body surface area of 1.73m^2. AnGap 8 8 - 16 mmol/L [facility] Blood 02/22/2024 6:18 AM CDT 02/22/2024 6:43 AM CDT Francy Mc MD LABORATORY Performing Organization Address City/[facility]/ZIP Co de Phone Number [facility] [address] [address] * (ABNORMAL) CBC WITH PLATELET (02/22/2024 6:18 AM CDT) WBC 3.82(L) 4.00 - 10.00 k/cmm [facility] RBC 2.68(L) 3.90 - 5.20 m/cmm [facility] Hgb 8.1(L) 11.5 - 15.7 g/dL [facility] Hematocrit 25.4(L) 34.0 - 45.0 % [facility] MCV 94.8 80.0 - 100.0 fL [facility] MCH 30.2 25.0 - 32.0 pg [facility] MCHC 31.9 31.0 - 36.0 g/dL [facility] RDW 15.3(H) 11.5 - 14.5 % [facility] Plt 115(L) 150 - 400 k/cmm [facility] MPV 10.0 6.5 - 12.5 fL [facility] Blood 02/22/2024 6:18 AM CDT 02/22/2024 6:43 AM CDT Francy Mc MD LABORATORY Performing Organization Address City/[facility]/ZIP Co de Phone Number [facility] [address] [address] * POC GLUCOSE (02/22/2024 12:39 AM CDT) POC Glucose 82 70 - 100 mg/dL [facility] POINT OF CARE Blood 02/22/2024 12:3 9 AM CDT Humphrey Rose MD LABORATORY Performing Organization Address [facility] de Phone Number [facility] POINT OF [facility] [address] [place] [address], * (ABNORMAL) POC GLUCOSE (02/21/2024 6:03 PM CDT) Pathologist [facility] POC Glucose 144(H) 70 - 100 mg/dL [facility] POINT [facility] Blood 02/21/2024 6:03 PM CDT Humphrey Rose MD LABORATORY Performing Organization Address [facility] de Phone Number [facility] POINT OF [address] [address], [place] * LACTATE (LACTIC ACID) (02/21/2024 8:38 AM CDT) [facility] Lactate 1.3 0.7 - 2.1 mmol/L [facility] Blood 02/21/2024 8:38 AM CDT 02/21/2024 8:49 AM CDT Narrative [facility] - 02/21/2024 8:57 AM CDT Send specimen on ice! Nikos Ferrer MD LABORATORY Performing Organization Address City/[facility] Co de Phone Number [facility] [address] [place] [address] * CALCIUM,IONIZED (02/21/2024 8:38 AM CDT) PH 7.40 7.32 - 7.42 [facility] ICA, Actual 4.45 4.40 - 5.20 mg/dL [facility] ICA, pH Corrected 4.46 4.40 - 5.20 mg/dL [facility] Blood 02/21/2024 8:38 AM CDT 02/21/2024 8:49 AM CDT Narrative [facility] - 02/21/2024 8:57 AM CDT Send specimen on ice! Nikos Ferrer MD LABORATORY Performing Organization Address [facility] Co de Phone Number [facility] [address] [address] * PHOSPHORUS (02/21/2024 8:38 AM CDT) Phosphorus 3.5 2.5 - 4.5 mg/dL [facility] Blood 02/21/2024 8:38 AM CDT 02/21/2024 8:50 AM CDT Nikos Ferrer MD LABORATORY Performing Organization Address [facility] de Phone Number [facility] [address] [address] * MAGNESIUM (02/21/2024 8:38 AM CDT) Magnesium 2.2 1.6 - 2.6 mg/dL [facility] Blood 02/21/2024 8:38 AM CDT 02/21/2024 8:50 AM CDT Nikos Ferrer MD LABORATORY Performing Organization Address [facility] de Phone Number [facility] [address] [address] * (ABNORMAL) PANEL BASIC METABOLIC (BMP) (02/21/2024 8:38 AM CDT) Sodium 131(L) 135 - 148 mmol/L [facility] Potassium 4.0 3.5 - 5.3 mmol/L [facility] Chloride 98 92 - 108 mmol/L [facility] CO2 27 22 - 30 mmol/L [facility] AnGap 6(L) 8 - 16 mmol/L [facility] Glucose 88 70 - 100 mg/dL [facility] BUN 13 6 - 20 mg/dL [facility] Creatinine 0.52 0.50 - 1.00 mg/dL [facility] Calcium 8.0(L) 8.6 - 10.0 mg/dL [facility] eGFR (2020 CKD-EPI) 107 >=60 ml/min/1.7 3m2 [facility] Comment: The estimated glomerular filtration rate (eGFR) was calculated using the CKD-EPI 2020 creatinine equation, which does not include race as a factor. This equation is validated in individuals 18 years of age and older, and eGFR is normalized to a body surface area of 1.73m^2. Blood 02/21/2024 8:38 AM CDT 02/21/2024 8:50 AM CDT Francy Mc MD LABORATORY Performing Organization Address City/[facility]/ZIP Co de Phone Number [facility] [address] [address] * (ABNORMAL) CBC WITH PLATELET (02/21/2024 8:38 AM CDT) WBC 4.54 4.00 - 10.00 k/cmm [facility] RBC 3.02(L) 3.90 - 5.20 m/cmm [facility] Hgb 9.0(L) 11.5 - 15.7 g/dL [facility] Hematocrit 28.7(L) 34.0 - 45.0 % [facility] MCV 95.0 80.0 - 100.0 fL [facility] MCH 29.8 25.0 - 32.0 pg [facility] MCHC 31.4 31.0 - 36.0 g/dL [facility] RDW 15.2(H) 11.5 - 14.5 % [facility] Plt 120(L) 150 - 400 k/cmm [facility] MPV 10.3 6.5 - 12.5 fL [facility] Blood 02/21/2024 8:38 AM CDT 02/21/2024 8:50 AM CDT Francy Mc MD LABORATORY Performing Organization Address City/[facility]/ZIP Co de Phone Number [facility] [address] [address] * CALCIUM,IONIZED (02/20/2024 8:37 PM CDT) PH 7.41 7.32 - 7.42 [facility] ICA, Actual 4.57 4.40 - 5.20 mg/dL [facility] ICA, pH Corrected 4.58 4.40 - 5.20 mg/dL [facility] Blood 02/20/2024 8:37 PM CDT 02/20/2024 9:02 PM CDT Narrative [facility] - 02/20/2024 9:07 PM CDT Send specimen on ice! Autumn Jerome MD LABORATORY Performing Organization Address City/[facility]/ZIP Co de Phone Number [place] [phone] * PHOSPHORUS (02/20/2024 8:37 PM CDT) Pathologist [facility] [place] Phosphorus 3.4 2.5 - 4.5 mg/dL [facility] Blood 02/20/2024 8:37 PM CDT 02/20/2024 9:04 PM CDT Autumn Jerome MD LABORATORY Performing Organization Address City/[facility] Co de Phone Number [address] [address] * MAGNESIUM (02/20/2024 8:37 PM CDT) Pathologist [facility] [place] Magnesium 2.2 1.6 - 2.6 mg/dL [facility] Blood 02/20/2024 8:37 PM CDT 02/20/2024 9:04 PM CDT Autumn Jerome MD LABORATORY Performing Organization Address City/[facility]/ZIP Co de Phone Number [address] [address] * (ABNORMAL) PANEL BASIC METABOLIC (BMP) (02/20/2024 8:37 PM CDT) Pathologist [facility] [place] Sodium 129(L) 135 - 148 mmol/L [facility] Potassium 4.2 3.5 - 5.3 mmol/L [facility] Chloride 96 92 - 108 mmol/L [facility] CO2 26 22 - 30 mmol/L [facility] AnGap 7(L) 8 - 16 mmol/L [facility] Glucose 93 70 - 100 mg/dL [facility] BUN 15 6 - 20 mg/dL [facility] Creatinine 0.59 0.50 - 1.00 mg/dL [facility] Calcium 8.1(L) 8.6 - 10.0 mg/dL [facility] eGFR (2020 CKD-EPI) 104 >=60 ml/min/1.7 3m2 [facility] Comment: The estimated glomerular filtration rate (eGFR) was calculated using the CKD-EPI 2020 creatinine equation, which does not include race as a factor. This equation is validated in individuals 18 years of age and older, and eGFR is normalized to a body surface area of 1.73m^2. Blood 02/20/2024 8:37 PM CDT 02/20/2024 9:04 PM CDT Autumn Jerome MD LABORATORY Performing Organization Address City/[facility]/ZIP Co de Phone Number [address] [address] * (ABNORMAL) PROTHROMBIN (PT) & INR (02/20/2024 8:37 PM CDT) PT 15.9(H) 9.0 - 12.5 sec [facility] INR 1.4(H) 0.8 - 1.1 [facility] Comment: Warfarin Therapeutic Range: Standard Intensity: 2.0 - 3.0 High Intensity: 2.5 - 3.5 Blood 02/20/2024 8:37 PM CDT 02/20/2024 9:04 PM CDT Francy Mc MD LABORATORY [address] [address] * (ABNORMAL) HEMOGLOBIN (02/20/2024 8:37 PM CDT) Hgb 8.7(L) 11.5 - 15.7 g/dL [facility] Blood 02/20/2024 8:37 PM CDT 02/20/2024 9:04 PM CDT Francy Mc MD LABORATORY [facility] [address] [place] [address] * CT ABDOMEN/PELVIS W/IV CON (02/20/2024 7:05 [...] POC GLUCOSE (02/20/2024 6:32 PM CDT) Pathologist [facility] [place] POC Glucose 119(H) 70 - 100 mg/dL [facility] Blood 02/20/2024 6:32 PM CDT Humphrey Rose MD LABORATORY [facility] [address] [place] [address], * LACTATE (LACTIC ACID) (02/20/2024 5:38 PM CDT) Pathologist [facility] [place] Lactate 1.8 0.7 - 2.1 mmol/L [facility] Blood 02/20/2024 5:38 PM CDT 02/20/2024 5:44 PM CDT Narrative [facility] - 02/20/2024 5:48 PM CDT Send specimen on ice! Francy Mc MD LABORATORY [facility] [address] [address] * XR ABDOMEN 1 VIEW* (02/20/2024 4:42 [...] Total Protein 5.9(L) 6.4 - 8.3 g/dL [facility] Albumin 3.1(L) 3.8 - 5.1 g/dL [facility] Bili Total 0.9 <=1.2 mg/dL [facility] Bili Direct 0.3 <=0.3 mg/dL [facility] Alk Phos 114(H) 35 - 104 IU/L [facility] Comment:No reference range e stablished for patients <18 years old. ALT (SGPT) 5 <=33 IU/L [facility] AST(SGOT) 38 5 - 40 IU/L [facility] Blood 02/20/2024 7:44 AM CDT 02/20/2024 3:36 PM CDT Francy Mc MD LABORATORY [facility] [address] [address] * (ABNORMAL) PANEL BASIC METABOLIC (BMP) (02/20/2024 7:44 AM CDT) Sodium 129(L) 135 - 148 mmol/L [facility] Potassium 4.1 3.5 - 5.3 mmol/L [facility] Chloride 96 92 - 108 mmol/L [facility] CO2 27 22 - 30 mmol/L [facility] AnGap 6(L) 8 - 16 mmol/L [facility] Glucose 83 70 - 100 mg/dL [facility] BUN 15 6 - 20 mg/dL [facility] Creatinine 0.61 0.50 - 1.00 mg/dL [facility] Calcium 8.0(L) 8.6 - 10.0 mg/dL [facility] eGFR (2020 CKD-EPI) 103 >=60 ml/min/1.7 3m2 [facility] Comment: The estimated glomerular filtration rate (eGFR) was calculated using the CKD-EPI 2020 creatinine equation, which does not include race as a factor. This equation is validated in individuals 18 years of age and older, and eGFR is normalized to a body surface area of 1.73m^2. Blood 02/20/2024 7:44 AM CDT 02/20/2024 8:35 AM CDT Francy Mc MD LABORATORY [facility] [address] [address] * (ABNORMAL) CBC WITH PLATELET (02/20/2024 7:44 AM CDT) WBC 3.10(L) 4.00 - 10.00 k/cmm [facility] RBC 2.63(L) 3.90 - 5.20 m/cmm [facility] Hgb 8.0(L) 11.5 - 15.7 g/dL [facility] Hematocrit 25.7(L) 34.0 - 45.0 % [facility] MCV 97.7 80.0 - 100.0 fL [facility] MCH 30.4 25.0 - 32.0 pg [facility] MCHC 31.1 31.0 - 36.0 g/dL [facility] RDW 15.3(H) 11.5 - 14.5 % [facility] Plt 116(L) 150 - 400 k/cmm [facility] MPV 10.8 6.5 - 12.5 fL [facility] Blood 02/20/2024 7:44 AM CDT 02/20/2024 8:35 AM CDT Francy Mc MD LABORATORY [facility] [address] [place] [address] * POC GLUCOSE (02/20/2024 6:18 AM CDT) POC Glucose 92 70 - 100 mg/dL [facility] Blood 02/20/2024 6:18 AM CDT Humphrey Rose MD LABORATORY [facility] [address] [place] [address], * (ABNORMAL) POC GLUCOSE (02/19/2024 9:24 PM CDT) POC Glucose 128(H) 70 - 100 mg/dL [facility] Blood 02/19/2024 9:24 PM CDT Humphrey Rose MD LABORATORY Performing Organization Address [facility] Co de Phone Number [facility] POINT OF [address] [address], [place] * POC GLUCOSE (02/19/2024 4:19 PM CDT) POC Glucose 83 70 - 100 mg/dL [facility] Blood 02/19/2024 4:19 PM CDT Humphrey Rose MD LABORATORY Performing Organization Address City/[facility]/ZIP Co de Phone Number [facility]ARE [address] [place] [address], [place] * Paracentesis (02/19/2024 2:55 PM CDT) [...] to verify the correct patient, procedure, equipment, personal support worker and site/side marked as required. Initial or [...] * POC GLUCOSE (02/19/2024 11:06 AM CDT) [facility] POC Glucose 82 70 - 100 mg/dL [facility] Blood 02/19/2024 11:0 6 AM CDT Humphrey Rose MD LABORATORY Performing Organization Address City/[facility] Co de Phone Number [facility] [address] [place] [address], [place] * POC GLUCOSE (02/19/2024 6:02 AM CDT) [facility] POC Glucose 84 70 - 100 mg/dL [facility] Blood 02/19/2024 6:02 AM CDT Humphrey Rose MD LABORATORY Performing Organization Address [facility] Co de Phone Number [facility] [address] [place] [address], [place] * (ABNORMAL) CBC WITH PLATELET (02/19/2024 5:03 AM CDT) [facility] WBC 3.27(L) 4.00 - 10.00 k/cmm [facility] RBC 2.64(L) 3.90 - 5.20 m/cmm [facility] Hgb 8.1(L) 11.5 - 15.7 g/dL [facility] Hematocrit 25.8(L) 34.0 - 45.0 % [facility] MCV 97.7 80.0 - 100.0 fL [facility] MCH 30.7 25.0 - 32.0 pg [facility] MCHC 31.4 31.0 - 36.0 g/dL [facility] RDW 15.3(H) 11.5 - 14.5 % [facility] Plt 127(L) 150 - 400 k/cmm [facility] MPV 10.4 6.5 - 12.5 fL [facility] Blood 02/19/2024 5:03 AM CDT 02/19/2024 5:39 AM CDT Francy Mc MD LABORATORY Performing Organization Address City/[facility]/ZIP Co de Phone Number [facility] [address] [address] * (ABNORMAL) PANEL BASIC METABOLIC (BMP) (02/19/2024 5:03 AM CDT) Sodium 129(L) 135 - 148 mmol/L [facility] Potassium 4.3 3.5 - 5.3 mmol/L [facility] Chloride 95 92 - 108 mmol/L [facility] CO2 26 22 - 30 mmol/L [facility] AnGap 8 8 - 16 mmol/L [facility] Glucose 80 70 - 100 mg/dL [facility] BUN 18 6 - 20 mg/dL [facility] Creatinine 0.65 0.50 - 1.00 mg/dL [facility] Calcium 8.4(L) 8.6 - 10.0 mg/dL [facility] eGFR (2020 CKD-EPI) 101 >=60 ml/min/1.7 3m2 [facility] Comment: The estimated glomerular filtration rate (eGFR) was calculated using the CKD-EPI 2020 creatinine equation, which does not include race as a factor. This equation is validated in individuals 18 years of age and older, and eGFR is normalized to a body surface area of 1.73m^2. Blood 02/19/2024 5:03 AM CDT 02/19/2024 5:39 AM CDT Francy Mc MD LABORATORY Performing Organization Address City/[facility]/ZIP Co de Phone Number [facility] [address] [address] * POC GLUCOSE (02/19/2024 12:07 AM CDT) POC Glucose 85 70 - 100 mg/dL [facility] Blood 02/19/2024 12:0 7 AM CDT Humphrey Rose MD LABORATORY [facility] [address] [place] [address], * (ABNORMAL) SODIUM (02/18/2024 9:39 PM CDT) Pathologist [facility] [place] Sodium 126(L) 135 - 148 mmol/L [facility] Blood 02/18/2024 9:39 PM CDT 02/18/2024 10:05 PM CDT Francy Mc MD LABORATORY Performing Organization Address City/[facility] [place] [place] [address] * OSMOLALITY,URINE-RANDOM LASHELL (02/18/2024 4:31 PM CDT) Urine Osmo 293 50 - 800 mOsm/Kg [facility] Urine 02/18/2024 4:31 PM CDT 02/18/2024 4:43 PM CDT Francy Mc MD LABORATORY Performing Organization Address City/[facility] Co de Phone Number [facility] [place] [address] * (ABNORMAL) SODIUM,URINE-RANDOM LASHELL (02/18/2024 4:31 PM CDT) Sodium Urine <20(L) 40 - 200 mEq/L [facility] Urine 02/18/2024 4:31 PM CDT 02/18/2024 4:43 PM CDT Francy Mc MD LABORATORY Performing Organization Address City/[facility]/ZIP Co de Phone Number [facility] [place] [address] * (ABNORMAL) SODIUM (02/18/2024 3:10 PM CDT) Pathologist [facility] [place] Sodium 125(AA) 135 - 148 mmol/L [facility] Comment:Critical Result Low Blood 02/18/2024 3:10 PM CDT 02/18/2024 3:36 PM CDT Narrative [facility] - 02/18/2024 4:25 PM CDT Critical value for Na called to and read back by Francy Mc MD in Ortho at 02/18/2024 16:24:57 CDT by Marion Tate MLS. Francy Mc MD LABORATORY [facility] [address] [address] * TSH WITH REFLEX TO FREE T4 (02/18/2024 8:33 AM CDT) Pathologist [facility] [place] TSH 1.99 0.27 - 4.20 mIU/L [facility] Blood 02/18/2024 8:33 AM CDT 02/18/2024 5:10 PM CDT Francy Mc MD LABORATORY Performing Organization Address City/[facility]/ZIP Co de Phone Number [facility] [address] [address] * (ABNORMAL) PANEL BASIC METABOLIC (BMP) (02/18/2024 8:33 AM CDT) Pathologist [facility] [place] Sodium 127(L) 135 - 148 mmol/L [facility] Potassium 4.2 3.5 - 5.3 mmol/L [facility] Chloride 95 92 - 108 mmol/L [facility] CO2 25 22 - 30 mmol/L [facility] AnGap 7(L) 8 - 16 mmol/L [facility] Glucose 92 70 - 100 mg/dL [facility] BUN 18 6 - 20 mg/dL [facility] Creatinine 0.71 0.50 - 1.00 mg/dL [facility] Calcium 7.9(L) 8.6 - 10.0 mg/dL [facility] eGFR (2020 CKD-EPI) 98 >=60 ml/min/1.7 3m2 [facility] Comment: The estimated glomerular filtration rate (eGFR) was calculated using the CKD-EPI 2020 creatinine equation, which does not include race as a factor. This equation is validated in individuals 18 years of age and older, and eGFR is normalized to a body surface area of 1.73m^2. Blood 02/18/2024 8:33 AM CDT 02/18/2024 8:45 AM CDT Francy Mc MD LABORATORY [facility] [address] [address] * (ABNORMAL) CBC WITH PLATELET (02/18/2024 8:33 AM CDT) WBC 4.30 4.00 - 10.00 k/cmm [facility] RBC 3.08(L) 3.90 - 5.20 m/cmm [facility] Hgb 9.6(L) 11.5 - 15.7 g/dL [facility] Hematocrit 29.2(L) 34.0 - 45.0 % [facility] MCV 94.8 80.0 - 100.0 fL [facility] MCH 31.2 25.0 - 32.0 pg [facility] MCHC 32.9 31.0 - 36.0 g/dL [facility] RDW 15.5(H) 11.5 - 14.5 % [facility] Plt 148(L) 150 - 400 k/cmm [facility] MPV 10.1 6.5 - 12.5 fL [facility] Blood 02/18/2024 8:33 AM CDT 02/18/2024 8:45 AM CDT Francy Mc MD LABORATORY [facility] [address] [address] * POC GLUCOSE (02/18/2024 8:06 AM CDT) POC Glucose 74 70 - 100 mg/dL [facility] Blood 02/18/2024 8:06 AM CDT Humphrey Rose MD LABORATORY Performing Organization Address City/[facility]/ZIP Co de Phone Number [facility] POINT OF [facility] [address] [place] [address], * (ABNORMAL) POC GLUCOSE (02/17/2024 11:13 AM CDT) POC Glucose 113(H) 70 - 100 mg/dL [facility] Blood 02/17/2024 11:1 3 AM CDT Humphrey Rose MD LABORATORY Performing Organization Address [facility] de Phone Number [facility] [address] [place] [address], [place] * (ABNORMAL) PANEL BASIC METABOLIC (BMP) (02/17/2024 7:19 AM CDT) CO2 25 22 - 30 mEq/L [facility] Glucose 83 70 - 100 mg/dL [facility] BUN 16 6 - 20 mg/dL [facility] Creatinine 0.59 0.50 - 1.00 mg/dL [facility] Calcium 7.7(L) 8.6 - 10.0 mg/dL [facility] Sodium 128(L) 135 - 148 mEq/L [facility] Potassium 4.0 3.5 - 5.3 mEq/L [facility] Chloride 97 92 - 108 mEq/L [facility] eGFR (2020 CKD-EPI) 104 >=60 ml/min/1.7 3m2 [facility] Comment: The estimated glomerular filtration rate (eGFR) was calculated using the CKD-EPI 2020 creatinine equation, which does not include race as a factor. This equation is validated in individuals 18 years of age and older, and eGFR is normalized to a body surface area of 1.73m^2. AnGap 6(L) 8 - 16 mEq/L [facility] Blood 02/17/2024 7:19 AM CDT 02/17/2024 8:14 AM CDT Francy Mc MD LABORATORY Performing Organization Address City/[facility]/ZIP Co de Phone Number [facility] [address] [place] [phone] * (ABNORMAL) CBC WITH PLATELET (02/17/2024 7:19 AM CDT) WBC 4.68 4.00 - 10.00 k/cmm [facility] RBC 2.63(L) 3.90 - 5.20 m/cmm [facility] Hgb 8.0(L) 11.5 - 15.7 g/dL [facility] Hematocrit 25.5(L) 34.0 - 45.0 % [facility] MCV 97.0 80.0 - 100.0 fL [facility] MCH 30.4 25.0 - 32.0 pg [facility] MCHC 31.4 31.0 - 36.0 g/dL [facility] RDW 15.3(H) 11.5 - 14.5 % [facility] Plt 133(L) 150 - 400 k/cmm [facility] MPV 10.5 6.5 - 12.5 fL [facility] Blood 02/17/2024 7:19 AM CDT 02/17/2024 8:14 AM CDT Francy Mc MD LABORATORY Performing Organization Address City/[facility]/ZIP Co de Phone Number [facility] [address] [address] * POC GLUCOSE (02/17/2024 6:02 AM CDT) POC Glucose 86 70 - 100 mg/dL [facility] Blood 02/17/2024 6:02 AM CDT Humphrey Rose MD LABORATORY [facility] [address] [place] [address] * POC GLUCOSE (02/17/2024 12:02 AM CDT) Pathologist [facility] POC Glucose 95 70 - 100 mg/dL [facility] Blood 02/17/2024 12:0 2 AM CDT Humphrey Rose MD LABORATORY Performing Organization Address [facility] Co de Phone Number [facility] POINT OF [facility] [address] [place] [address], * (ABNORMAL) POC GLUCOSE (02/16/2024 6:18 PM CDT) POC Glucose 155(H) 70 - 100 mg/dL [facility] Blood 02/16/2024 6:18 PM CDT Humphrey Rose MD LABORATORY Performing Organization Address [facility] de Phone Number [facility] POINT [facility] [address] [place] [address], [place] * Paracentesis (02/16/2024 3:19 PM CDT) [...] to verify the correct patient, procedure, equipment, personal support worker and site/side marked as required. Initial or [...] 2:56 PM CDT) Final Report No growth. [facility] Gram Stain Report PMN's seen. No organisms seen. [facility] Peritoneal Fluid PERITONEUM (SEROUS MEMBRANE) STRUCTURE / Unknown 02/16/2024 2:56 PM CDT 02/16/2024 3:54 PM CDT Francy Mc MD LAB MICROBIOLOG Y [facility] [address] [address] * BODY FLUID CELL COUNT/DIFF (02/16/2024 2:55 PM CDT) Fluid Type PT Peritoneal [facility] Comment:Normal reference ran ges have not been determined; clinical correlation is recommended. Volume PT Fluid 1,000 mL [facility] Appearance PT Clear [facility] Color bf Yellow [facility] Rbc PT Fluid <1,000 cells/ul [facility] Nuc Ct PT Fluid 167 cells/ul [facility] Neutrophil PT Fluid 16 % [facility] Lymphocytes PT Fluid 44 % [facility] Basophil PT Fluid 1 % [facility] MONO/MACS FL 33 % [facility] Other PT Fluid 6 % [facility] Comment:Others are mesotheli al cells. Peritoneal Fluid 02/16/2024 2:55 PM CDT 02/16/2024 3:43 PM CDT Francy Mc MD LABORATORY Performing Organization Address City/[facility]/ZIP Co de Phone Number [facility] [address] [address] * (ABNORMAL) CBC WITH PLATELET (02/16/2024 8:12 AM CDT) WBC 5.95 4.00 - 10.00 k/cmm [facility] RBC 3.08(L) 3.90 - 5.20 m/cmm [facility] Hgb 9.3(L) 11.5 - 15.7 g/dL [facility] Hematocrit 29.4(L) 34.0 - 45.0 % [facility] MCV 95.5 80.0 - 100.0 fL [facility] MCH 30.2 25.0 - 32.0 pg [facility] MCHC 31.6 31.0 - 36.0 g/dL [facility] RDW 15.6(H) 11.5 - 14.5 % [facility] Plt 167 150 - 400 k/cmm [facility] MPV 10.2 6.5 - 12.5 fL [facility] Blood 02/16/2024 8:12 AM CDT 02/16/2024 8:54 AM CDT Ernestine Toribio MD LABORATORY Performing Organization Address City/[facility]/ZIP Co de Phone Number [facility] [address] [address] * (ABNORMAL) PANEL HEPATIC FUNCTION (02/16/2024 8:12 AM CDT) Total Protein 6.6 6.4 - 8.3 g/dL [facility] Albumin 2.2(L) 3.8 - 5.1 g/dL [facility] Bili Total 0.8 <=1.2 mg/dL [facility] Bili Direct 0.4(H) <=0.3 mg/dL [facility] Alk Phos 155(H) 35 - 104 IU/L [facility] Comment:No reference range e stablished for patients <18 years old. ALT (SGPT) <5 <=33 IU/L [facility] AST(SGOT) 42(H) 5 - 40 IU/L [facility] Blood 02/16/2024 8:12 AM CDT 02/16/2024 8:54 AM CDT Ernestine Toribio MD LABORATORY Performing Organization Address City/[facility] Co de Phone Number [address] [address] * (ABNORMAL) PROTHROMBIN (PT) & INR (02/16/2024 8:12 AM CDT) PT 16.0(H) 9.0 - 12.5 sec [facility] INR 1.4(H) 0.8 - 1.1 [facility] Comment: Warfarin Therapeutic Range: Standard Intensity: 2.0 - 3.0 High Intensity: 2.5 - 3.5 Blood 02/16/2024 8:12 AM CDT 02/16/2024 8:54 AM CDT Ernestine Toribio MD LABORATORY Performing Organization Address City/[facility] Co de Phone Number [facility] [address] [address] * MAGNESIUM (02/16/2024 8:12 AM CDT) Magnesium 2.0 1.6 - 2.6 mg/dL [facility] Blood 02/16/2024 8:12 AM CDT 02/16/2024 8:54 AM CDT Ernestine Toribio MD LABORATORY Performing Organization Address City/[facility]/ZIP Co de Phone Number [facility] [address] [address] * (ABNORMAL) PANEL BASIC METABOLIC (BMP) (02/16/2024 8:12 AM CDT) Sodium 129(L) 135 - 148 mEq/L [facility] Potassium 3.6 3.5 - 5.3 mEq/L [facility] Chloride 96 92 - 108 mEq/L [facility] CO2 26 22 - 30 mEq/L [facility] AnGap 7(L) 8 - 16 mEq/L [facility] Glucose 81 70 - 100 mg/dL [facility] BUN 18 6 - 20 mg/dL [facility] Creatinine 0.62 0.50 - 1.00 mg/dL [facility] Calcium 7.5(L) 8.6 - 10.0 mg/dL [facility] eGFR (2020 CKD-EPI) 103 >=60 ml/min/1.7 3m2 [facility] Comment: The estimated glomerular filtration rate (eGFR) was calculated using the CKD-EPI 2020 creatinine equation, which does not include race as a factor. This equation is validated in individuals 18 years of age and older, and eGFR is normalized to a body surface area of 1.73m^2. Blood 02/16/2024 8:12 AM CDT 02/16/2024 8:54 AM CDT Ernestine Toribio MD LABORATORY [facility] [place] [address] * POC GLUCOSE (02/16/2024 6:35 AM CDT) Pathologist [facility] POC Glucose 70 70 - 100 mg/dL [facility] - POINT OF CARE Blood 02/16/2024 6:35 AM CDT Humphrey Rose MD LABORATORY [facility] - POINT OF CARE [address] [place] [id number], * POC GLUCOSE (02/15/2024 11:47 PM CDT) POC Glucose 82 70 - 100 mg/dL [facility] - POINT OF CARE Blood 02/15/2024 11:4 7 PM CDT Humphrey Rose MD LABORATORY Performing Organization Address City/[facility] Co de Phone Number [facility] [address] [place] [address], [place] * (ABNORMAL) POC GLUCOSE (02/15/2024 5:52 PM CDT) POC Glucose 167(H) 70 - 100 mg/dL [facility] POINT OF [facility] Blood 02/15/2024 5:52 PM CDT Humphrey Rose MD LABORATORY Performing Organization Address [facility] Co de Phone Number [facility] [address] [place] [address], [place] * POC GLUCOSE (02/15/2024 1:21 PM CDT) POC Glucose 86 70 - 100 mg/dL [facility] Blood 02/15/2024 1:21 PM CDT Humphrey Rose MD LABORATORY Performing Organization Address [facility] Co de Phone Number [facility] [address] [place] [address], [place] * (ABNORMAL) POC GLUCOSE (02/15/2024 12:21 PM CDT) POC Glucose 66(L) 70 - 100 mg/dL [facility] Blood 02/15/2024 12:2 1 PM CDT Humphrey Rose MD LABORATORY Performing Organization Address City/[facility] Co de Phone Number [facility] [address] [place] [address], [place] * XR ABDOMEN 1 VIEW* (02/15/2024 [...] POC Glucose 86 70 - 100 mg/dL [facility] Blood 02/15/2024 10:4 6 AM CDT Humphrey Rose MD LABORATORY [facility] [address] [place] [address], * FLEXIBLE SIGMOIDOSCOPY (02/15/2024 9:55 AM CDT) 02/15/2024 9:55 AM CDT Narrative [facility] - 02/15/2024 11:22 AM CDT Gastroenterology Lab Patient Name: Cathy Raymond ?Procedure Date: 02/15/2024 9:55 AM ?Date of : 1965 Admit Type: Inpatient ? Age: 58 Gender: Female Procedure: ? Flexible Sigmoidoscopy Providers: ? Raven Dominguez RN, Toby Villarreal, Chemical Librarian (Chemical Librarian), Olesya Whipple (Fellow) Referring MD: ?Self Referral [...] procedure, including non-valencia portions. Ugo Rincon, , [id number] 02/15/2024 11:20:50 AM Olesya Whipple, , [id number] Number of Addenda: 0 Note Initiated On: 02/15/2024 9:55 AM Nataly Quinones PA-C GI LAB Performing Organization Address [facility] Co de Phone Number [facility] * MAGNESIUM (02/15/2024 6:48 AM CDT) Magnesium 2.2 1.6 - 2.6 mg/dL [facility] Blood 02/15/2024 6:48 AM CDT 02/15/2024 7:32 AM CDT Ernestine Toribio MD LABORATORY [facility] [address] [address] * PHOSPHORUS (02/15/2024 6:48 AM CDT) Phosphorus 3.3 2.5 - 4.5 mg/dL [facility] Blood 02/15/2024 6:48 AM CDT 02/15/2024 7:32 AM CDT Ernestine Toribio MD LABORATORY Performing Organization Address [facility] Co de Phone Number [facility] [address] [address] * (ABNORMAL) CBC WITH PLATELET (02/15/2024 6:48 AM CDT) WBC 5.76 4.00 - 10.00 k/cmm [facility] RBC 2.90(L) 3.90 - 5.20 m/cmm [facility] Hgb 8.9(L) 11.5 - 15.7 g/dL [facility] Hematocrit 28.4(L) 34.0 - 45.0 % [facility] MCV 97.9 80.0 - 100.0 fL [facility] MCH 30.7 25.0 - 32.0 pg [facility] MCHC 31.3 31.0 - 36.0 g/dL [facility] RDW 15.3(H) 11.5 - 14.5 % [facility] Plt 156 150 - 400 k/cmm [facility] MPV 10.3 6.5 - 12.5 fL [facility] Blood 02/15/2024 6:48 AM CDT 02/15/2024 7:49 AM CDT Ernestine Toribio MD LABORATORY Performing Organization Address [facility] Co de Phone Number [facility] [address] [address] * (ABNORMAL) PROTHROMBIN (PT) & INR (02/15/2024 6:48 AM CDT) PT 15.5(H) 9.0 - 12.5 sec [facility] INR 1.4(H) 0.8 - 1.1 [facility] Comment: Warfarin Therapeutic Range: Standard Intensity: 2.0 - 3.0 High Intensity: 2.5 - 3.5 Blood 02/15/2024 6:48 AM CDT 02/15/2024 7:32 AM CDT Ernestine Toribio MD LABORATORY Performing Organization Address [facility] Co de Phone Number [facility] [address] [address] * (ABNORMAL) PANEL HEPATIC FUNCTION (02/15/2024 6:48 AM CDT) Total Protein 6.3(L) 6.4 - 8.3 g/dL [facility] Albumin 1.9(L) 3.8 - 5.1 g/dL [facility] Bili Total 0.7 <=1.2 mg/dL [facility] Bili Direct 0.3 <=0.3 mg/dL [facility] Alk Phos 144(H) 35 - 104 IU/L [facility] Comment:No reference range e stablished for patients <18 years old. ALT (SGPT) <5 <=33 IU/L [facility] AST(SGOT) 37 5 - 40 IU/L [facility] Blood 02/15/2024 6:48 AM CDT 02/15/2024 7:32 AM CDT Ernestine Toribio MD LABORATORY Performing Organization Address [facility] de Phone Number [facility] [address] [address] * (ABNORMAL) PANEL BASIC METABOLIC (BMP) (02/15/2024 6:48 AM CDT) Sodium 129(L) 135 - 148 mEq/L [facility] Potassium 4.1 3.5 - 5.3 mEq/L [facility] Chloride 97 92 - 108 mEq/L [facility] CO2 26 22 - 30 mEq/L [facility] AnGap 6(L) 8 - 16 mEq/L [facility] Glucose 80 70 - 100 mg/dL [facility] BUN 17 6 - 20 mg/dL [facility] Creatinine 0.60 0.50 - 1.00 mg/dL [facility] Calcium 7.7(L) 8.6 - 10.0 mg/dL [facility] eGFR (2020 CKD-EPI) 103 >=60 ml/min/1.7 3m2 [facility] Comment: The estimated glomerular filtration rate (eGFR) was calculated using the CKD-EPI 2020 creatinine equation, which does not include race as a factor. This equation is validated in individuals 18 years of age and older, and eGFR is normalized to a body surface area of 1.73m^2. Blood 02/15/2024 6:48 AM CDT 02/15/2024 7:32 AM CDT Ernestine Toribio MD LABORATORY [facility] [address] [place] [address] * POC GLUCOSE (02/15/2024 6:04 AM CDT) POC Glucose 77 70 - 100 mg/dL [facility] Blood 02/15/2024 6:04 AM CDT Humphrey Rose MD LABORATORY Performing Organization Address City/[facility]/ZIP Co de Phone Number [facility] [address] [place] [address], [place] * POC GLUCOSE (02/15/2024 12:06 AM CDT) POC Glucose 85 70 - 100 mg/dL [facility] Blood 02/15/2024 12:0 6 AM CDT Humphrey Rose MD LABORATORY [facility] [address] [place] [address], [place] * POC GLUCOSE (02/14/2024 9:02 PM CDT) POC Glucose 74 70 - 100 mg/dL [facility] Blood 02/14/2024 9:02 PM CDT Humphrey Rose MD LABORATORY [facility] [address] [place] [address], [place] * XR ABDOMEN 1 VIEW* (02/14/2024 [...] CDT) Lactate 1.1 0.7 - 2.1 mmol/L [facility] Blood 02/14/2024 5:01 PM CDT 02/14/2024 5:10 PM CDT Narrative [facility] - 02/14/2024 5:14 PM CDT Send specimen on ice! Ernestine Toribio MD LABORATORY [facility] [address] [address] * POC GLUCOSE (02/14/2024 4:10 PM CDT) POC Glucose 92 70 - 100 mg/dL [facility] Blood 02/14/2024 4:10 PM CDT Humphrey Rose MD LABORATORY Performing Organization Address [facility] Co de Phone Number [facility] [address] [place] [address], * POC GLUCOSE (02/14/2024 11:12 AM CDT) POC Glucose 85 70 - 100 mg/dL [facility] Blood 02/14/2024 11:1 2 AM CDT Humphrey Rose MD LABORATORY Performing Organization Address [facility] Co de Phone Number [facility] [address] [place] [address], [place] * XR ABDOMEN 1 VIEW* (02/14/2024 [...] femurs. Procedure Note Carter Reyes MD - 05/12/2024 Indication: Abdominal distension. Recent decompression colonoscopy forsigmoid [...] XRAY * PHOSPHORUS (02/14/2024 8:18 AM CDT) Pathologist [facility] Phosphorus 3.5 2.5 - 4.5 mg/dL [facility] Blood 02/14/2024 8:18 AM CDT 02/14/2024 9:14 AM CDT Ernestine Toribio MD LABORATORY [facility] [address] [address] * MAGNESIUM (02/14/2024 8:18 AM CDT) Pathologist [facility] Magnesium 2.1 1.6 - 2.6 mg/dL [facility] Blood 02/14/2024 8:18 AM CDT 02/14/2024 9:14 AM CDT Ernestine Toribio MD LABORATORY [facility] [address] [address] * (ABNORMAL) PROTHROMBIN (PT) & INR (02/14/2024 8:18 AM CDT) PT 15.8(H) 9.0 - 12.5 sec [facility] INR 1.4(H) 0.8 - 1.1 [facility] Comment: Warfarin Therapeutic Range: Standard Intensity: 2.0 - 3.0 High Intensity: 2.5 - 3.5 Blood 02/14/2024 8:18 AM CDT 02/14/2024 9:13 AM CDT Ernestine Toribio MD LABORATORY Performing Organization Address [facility] Co de Phone Number [facility] [address] [address] * (ABNORMAL) CBC WITH PLATELET (02/14/2024 8:18 AM CDT) WBC 5.76 4.00 - 10.00 k/cmm [facility] RBC 3.00(L) 3.90 - 5.20 m/cmm [facility] Hgb 9.1(L) 11.5 - 15.7 g/dL [facility] Hematocrit 29.5(L) 34.0 - 45.0 % [facility] MCV 98.3 80.0 - 100.0 fL [facility] MCH 30.3 25.0 - 32.0 pg [facility] MCHC 30.8(L) 31.0 - 36.0 g/dL [facility] RDW 15.4(H) 11.5 - 14.5 % [facility] Plt 166 150 - 400 k/cmm [facility] MPV 10.0 6.5 - 12.5 fL [facility] Blood 02/14/2024 8:18 AM CDT 02/14/2024 9:14 AM CDT Ernestine Toribio MD LABORATORY Performing Organization Address [facility] Co de Phone Number [facility] [address] [address] * (ABNORMAL) PANEL HEPATIC FUNCTION (02/14/2024 8:18 AM CDT) Total Protein 6.6 6.4 - 8.3 g/dL [facility] Albumin 2.0(L) 3.8 - 5.1 g/dL [facility] Bili Total 0.8 <=1.2 mg/dL [facility] Bili Direct 0.3 <=0.3 mg/dL [facility] Alk Phos 146(H) 35 - 104 IU/L [facility] Comment:No reference range e stablished for patients <18 years old. ALT (SGPT) <5 <=33 IU/L [facility] AST(SGOT) 41(H) 5 - 40 IU/L [facility] Blood 02/14/2024 8:18 AM CDT 02/14/2024 9:14 AM CDT Ernestine Toribio MD LABORATORY Performing Organization Address [facility] Co de Phone Number [facility] [address] [address] * (ABNORMAL) PANEL BASIC METABOLIC (BMP) (02/14/2024 8:18 AM CDT) Sodium 128(L) 135 - 148 mEq/L [facility] Potassium 3.9 3.5 - 5.3 mEq/L [facility] Chloride 95 92 - 108 mEq/L [facility] CO2 25 22 - 30 mEq/L [facility] AnGap 8 8 - 16 mEq/L [facility] Glucose 78 70 - 100 mg/dL [facility] BUN 16 6 - 20 mg/dL [facility] Creatinine 0.58 0.50 - 1.00 mg/dL [facility] Calcium 7.6(L) 8.6 - 10.0 mg/dL [facility] eGFR (2020 CKD-EPI) 104 >=60 ml/min/1.7 3m2 [facility] Comment: The estimated glomerular filtration rate (eGFR) was calculated using the CKD-EPI 2020 creatinine equation, which does not include race as a factor. This equation is validated in individuals 18 years of age and older, and eGFR is normalized to a body surface area of 1.73m^2. Blood 02/14/2024 8:18 AM CDT 02/14/2024 9:14 AM CDT Ernestine Toribio MD LABORATORY Performing Organization Address [facility] Co de Phone Number [facility] [address] [address] * POC GLUCOSE (02/14/2024 6:07 AM CDT) POC Glucose 75 70 - 100 mg/dL [facility] Blood 02/14/2024 6:07 AM CDT Humphrey Rose MD LABORATORY Performing Organization Address City/[facility]/ZIP Co de Phone Number [facility] [address] [place] [address], [place] * POC GLUCOSE (02/13/2024 11:59 PM CDT) POC Glucose 93 70 - 100 mg/dL [facility] Blood 02/13/2024 11:5 9 PM CDT Humphrey Rose MD LABORATORY Performing Organization Address [facility] Co de Phone Number [facility] [address] [place] [address], [place] * (ABNORMAL) POC GLUCOSE (02/13/2024 6:06 PM CDT) POC Glucose 108(H) 70 - 100 mg/dL [facility] Blood 02/13/2024 6:06 PM CDT Humphrey Rose MD LABORATORY Performing Organization Address City/[facility] Co de Phone Number [facility] [address] [place] [address], [place] * POC GLUCOSE (02/13/2024 11:46 AM CDT) POC Glucose 90 70 - 100 mg/dL [facility] Blood 02/13/2024 11:4 6 AM CDT Humphrey Rose MD LABORATORY [facility] [address] [place] [address], [place] * (ABNORMAL) CBC WITH PLATELET (02/13/2024 9:06 AM CDT) WBC 4.84 4.00 - 10.00 k/cmm [facility] RBC 2.96(L) 3.90 - 5.20 m/cmm [facility] Hgb 8.9(L) 11.5 - 15.7 g/dL [facility] Hematocrit 28.1(L) 34.0 - 45.0 % [facility] MCV 94.9 80.0 - 100.0 fL [facility] MCH 30.1 25.0 - 32.0 pg [facility] MCHC 31.7 31.0 - 36.0 g/dL [facility] RDW 15.4(H) 11.5 - 14.5 % [facility] Plt 174 150 - 400 k/cmm [facility] MPV 9.9 6.5 - 12.5 fL [facility] Blood 02/13/2024 9:06 AM CDT 02/13/2024 9:28 AM CDT Ernestine Toribio MD LABORATORY [facility] [address] [address] * (ABNORMAL) PANEL BASIC METABOLIC (BMP) (02/13/2024 9:06 AM CDT) Sodium 131(L) 135 - 148 mEq/L [facility] Potassium 3.8 3.5 - 5.3 mEq/L [facility] Chloride 97 92 - 108 mEq/L [facility] CO2 27 22 - 30 mEq/L [facility] AnGap 7(L) 8 - 16 mEq/L [facility] Glucose 87 70 - 100 mg/dL [facility] BUN 16 6 - 20 mg/dL [facility] Creatinine 0.60 0.50 - 1.00 mg/dL [facility] Calcium 7.5(L) 8.6 - 10.0 mg/dL [facility] eGFR (2020 CKD-EPI) 103 >=60 ml/min/1.7 3m2 [facility] Comment: The estimated glomerular filtration rate (eGFR) was calculated using the CKD-EPI 2020 creatinine equation, which does not include race as a factor. This equation is validated in individuals 18 years of age and older, and eGFR is normalized to a body surface area of 1.73m^2. Blood 02/13/2024 9:06 AM CDT 02/13/2024 9:28 AM CDT Ernestine Toribio MD LABORATORY Performing Organization Address [facility] Co de Phone Number [facility] [address] [address] * (ABNORMAL) PANEL HEPATIC FUNCTION (02/13/2024 9:06 AM CDT) Total Protein 6.4 6.4 - 8.3 g/dL [facility] Albumin 2.1(L) 3.8 - 5.1 g/dL [facility] Bili Total 0.9 <=1.2 mg/dL [facility] Bili Direct 0.4(H) <=0.3 mg/dL [facility] Alk Phos 142(H) 35 - 104 IU/L [facility] Comment:No reference range e stablished for patients <18 years old. ALT (SGPT) <5 <=33 IU/L [facility] AST(SGOT) 36 5 - 40 IU/L [facility] Blood 02/13/2024 9:06 AM CDT 02/13/2024 9:28 AM CDT Ernestine Toribio MD LABORATORY Performing Organization Address [facility] Co de Phone Number [facility] [address] [address] * POC GLUCOSE (02/13/2024 6:07 AM CDT) POC Glucose 83 70 - 100 mg/dL [facility] Blood 02/13/2024 6:07 AM CDT Humphrey Rose MD LABORATORY Performing Organization Address [facility]/ZIP Co de Phone Number [facility] [address] [place] [address], [place] * POC GLUCOSE (02/13/2024 12:05 AM CDT) POC Glucose 88 70 - 100 mg/dL [facility] Blood 02/13/2024 12:0 5 AM CDT Humphrey Rose MD LABORATORY Performing Organization Address City/[facility]/ZIP Co de Phone Number [facility] [address] [place] [address], [place] * LACTATE (LACTIC ACID) (02/12/2024 8:15 PM CDT) Lactate 2.0 0.7 - 2.1 mmol/L [facility] Blood 02/12/2024 8:15 PM CDT 02/12/2024 8:36 PM CDT Narrative [facility] - 02/12/2024 8:41 PM CDT Send specimen on ice! Ernestine Toribio MD LABORATORY [facility] [address] [address] * (ABNORMAL) POC GLUCOSE (02/12/2024 5:56 PM CDT) POC Glucose 110(H) 70 - 100 mg/dL [facility] Blood 02/12/2024 5:56 PM CDT Humphrey Rose MD LABORATORY [facility] [address] [place] [address], [place] * LACTATE (LACTIC ACID) (02/12/2024 2:45 PM CDT) Lactate 2.1 0.7 - 2.1 mmol/L [facility] Blood 02/12/2024 2:45 PM CDT 02/12/2024 3:00 PM CDT Narrative [facility] - 02/12/2024 3:05 PM CDT Send specimen on ice! Khloe Reyes PA-C LABORATORY Performing Organization Address City/[facility]/ZIP Co de Phone Number [facility] [address] [place] [phone] * POC GLUCOSE (02/12/2024 12:49 PM CDT) POC Glucose 93 70 - 100 mg/dL [facility] Blood 02/12/2024 12:4 9 PM CDT Humphrey Rose MD LABORATORY Performing Organization Address City/[facility]/[place] [address], * (ABNORMAL) POC GLUCOSE (02/12/2024 12:20 PM CDT) POC Glucose 64(L) 70 - 100 mg/dL [facility] Blood 02/12/2024 12:2 0 PM CDT Humphrey Rose MD LABORATORY Performing Organization Address [facility] [place] [address], [place] * XR ABDOMEN 1 VIEW* (02/12/2024 [...] CDT) Lactate 1.6 0.7 - 2.1 mmol/L [facility] Blood 02/12/2024 8:50 AM CDT 02/12/2024 9:13 AM CDT Narrative [facility] - 02/12/2024 9:20 AM CDT Send specimen on ice! Khloe Reyes PA-C LABORATORY Performing Organization Address City/[facility]/ZIP Co de Phone Number [facility] [address] [address] * (ABNORMAL) CBC WITH PLATELET (02/12/2024 8:50 AM CDT) WBC 5.15 4.00 - 10.00 k/cmm [facility] RBC 3.11(L) 3.90 - 5.20 m/cmm [facility] Hgb 9.4(L) 11.5 - 15.7 g/dL [facility] Hematocrit 29.4(L) 34.0 - 45.0 % [facility] MCV 94.5 80.0 - 100.0 fL [facility] MCH 30.2 25.0 - 32.0 pg [facility] MCHC 32.0 31.0 - 36.0 g/dL [facility] RDW 15.5(H) 11.5 - 14.5 % [facility] Plt 199 150 - 400 k/cmm [facility] MPV 9.7 6.5 - 12.5 fL [facility] Blood 02/12/2024 8:50 AM CDT 02/12/2024 9:10 AM CDT Ernestine Toribio MD LABORATORY Performing Organization Address City/[facility]/ZIP Co de Phone Number [facility] [address] [address] * (ABNORMAL) PROTHROMBIN (PT) & INR (02/12/2024 8:50 AM CDT) PT 18.7(H) 9.0 - 12.5 sec [facility] INR 1.7(H) 0.8 - 1.1 [facility] Comment: Warfarin Therapeutic Range: Standard Intensity: 2.0 - 3.0 High Intensity: 2.5 - 3.5 Blood 02/12/2024 8:50 AM CDT 02/12/2024 9:10 AM CDT Ernestine Toribio MD LABORATORY Performing Organization Address [facility] Co de Phone Number [facility] [address] [address] * (ABNORMAL) PANEL HEPATIC FUNCTION (02/12/2024 8:50 AM CDT) Total Protein 6.7 6.4 - 8.3 g/dL [facility] Albumin 2.3(L) 3.8 - 5.1 g/dL [facility] Bili Total 0.9 <=1.2 mg/dL [facility] Bili Direct 0.4(H) <=0.3 mg/dL [facility] Alk Phos 131(H) 35 - 104 IU/L [facility] Comment:No reference range e stablished for patients <18 years old. ALT (SGPT) <5 <=33 IU/L [facility] AST(SGOT) 35 5 - 40 IU/L [facility] Blood 02/12/2024 8:50 AM CDT 02/12/2024 9:10 AM CDT Ernestine Toribio MD LABORATORY Performing Organization Address [facility] Co de Phone Number [facility] [address] [address] * (ABNORMAL) PANEL BASIC METABOLIC (BMP) (02/12/2024 8:50 AM CDT) Sodium 130(L) 135 - 148 mEq/L [facility] Potassium 4.1 3.5 - 5.3 mEq/L [facility] Chloride 97 92 - 108 mEq/L [facility] CO2 27 22 - 30 mEq/L [facility] AnGap 6(L) 8 - 16 mEq/L [facility] Glucose 78 70 - 100 mg/dL [facility] BUN 16 6 - 20 mg/dL [facility] Creatinine 0.56 0.50 - 1.00 mg/dL [facility] Calcium 7.9(L) 8.6 - 10.0 mg/dL [facility] eGFR (2020 CKD-EPI) 105 >=60 ml/min/1.7 3m2 [facility] Comment: The estimated glomerular filtration rate (eGFR) was calculated using the CKD-EPI 2020 creatinine equation, which does not include race as a factor. This equation is validated in individuals 18 years of age and older, and eGFR is normalized to a body surface area of 1.73m^2. Blood 02/12/2024 8:50 AM CDT 02/12/2024 9:10 AM CDT Ernestine Toribio MD LABORATORY Performing Organization Address City/[facility] Co de Phone Number [facility] [place] [address] * POC GLUCOSE (02/12/2024 6:52 AM CDT) POC Glucose 73 70 - 100 mg/dL [facility] Blood 02/12/2024 6:52 AM CDT Humphrey Rose MD LABORATORY [facility] [address] [place] [address] * LACTATE (LACTIC ACID) (02/12/2024 2:54 AM CDT) Lactate 1.4 0.7 - 2.1 mmol/L [facility] Blood 02/12/2024 2:54 AM CDT 02/12/2024 3:08 AM CDT Narrative [facility] - 02/12/2024 3:12 AM CDT Send specimen on ice! Khloe Reyes PA-C LABORATORY [facility] [address] [place] [address] * POC GLUCOSE (02/11/2024 10:43 PM CDT) POC Glucose 94 70 - 100 mg/dL [facility] Blood 02/11/2024 10:4 3 PM CDT Humphrey Rose MD LABORATORY [facility] [address] [place] [address], * COLONOSCOPY-DIAGNOSTIC (02/11/2024 9:24 PM CDT) 02/11/2024 9:24 PM CDT Narrative [facility] - 02/11/2024 10:18 PM CDT Gastroenterology [...] bowel preparation was evaluated using the BBPS (Ransom Bowel Preparation Scale) with scores of: Right [...] previous GI consult note. Lukas Lambert MD, [id number] 02/11/2024 10:16:48 PM Number of Addenda: 0 Note Initiated On: 02/11/2024 9:24 PM Lukas Lambert MD GI LAB Performing Organization Address [facility] Co de Phone Number [facility] * LACTATE (LACTIC ACID) (02/11/2024 8:51 PM CDT) Lactate 1.3 0.7 - 2.1 mmol/L [facility] Blood 02/11/2024 8:51 PM CDT 02/11/2024 8:57 PM CDT Narrative [facility] - 02/11/2024 9:00 PM CDT Send specimen on ice! Khloe Reyes PA-C LABORATORY Performing Organization Address [facility] Co de Phone Number [facility] [address] [address] * LACTATE (LACTIC ACID) (02/11/2024 7:56 PM CDT) Lactate 1.5 0.7 - 2.1 mmol/L [facility] Blood 02/11/2024 7:56 PM CDT 02/11/2024 8:25 PM CDT Narrative [facility] - 02/11/2024 8:28 PM CDT Send specimen on ice! Ernestine Toribio MD LABORATORY Performing Organization Address [facility] Co de Phone Number [address] [address] * CT ABDOMEN/PELVIS W/IV CON (02/11/2024 2:22 PM CDT) Anatomical Region Laterality Modality Abdomen, Pelvis Computed Tomogra phy 02/11/2024 2:23 PM CDT Impressions 02/11/2024 8:24 PM CDT IMPRESSION: 1.Increase in rectosigmoid colonic distention, with increased distal fecal contents. Mildly increased gaseous distention of the chronically dilated sigmoid colon. 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 2.Liver cirrhosis with splenomegaly and [...] junction measures 7.1 cm in diameter (series [id number], image 84), compared to 4.6 cm on [...] cm left renal cyst. Non-thickened urinary bladder. Acno in place. BOWEL/PERITONEUM: Interval increase in caliber of rectosigmoid colon, and with increasedfecal contents. The rectosigmoid junction measures 7.1 cm in diameter(series [id number], image 84), compared to 4.6 cm on [...] the chronically dilatedsigmoid colon. 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 2.Liver cirrhosis with splenomegaly and slightly decreased ascites. 3.Trace bibasilar atelectasis, and trace pleural effusion. 4.Cholelithiasis. I have personally reviewed the image(s) and initial interpretation, and Iagree with the findings as documented by the resident/fellow. Reading Radiologist: Yasmine Massey Reading Resident: Jay Álvarez Ernestine Troibio MD RAD CT BODY * XR ABDOMEN [...] Total Protein 6.3(L) 6.4 - 8.3 g/dL [facility] Albumin 2.3(L) 3.8 - 5.1 g/dL [facility] Bili Total 0.9 <=1.2 mg/dL [facility] Bili Direct 0.4(H) <=0.3 mg/dL [facility] Alk Phos 126(H) 35 - 104 IU/L [facility] Comment:No reference range e stablished for patients <18 years old. ALT (SGPT) <5 <=33 IU/L [facility] AST(SGOT) 34 5 - 40 IU/L [facility] Blood 02/11/2024 7:25 AM CDT 02/11/2024 8:01 AM CDT Ernestine Toribio MD LABORATORY Performing Organization Address City/[facility] Co de Phone Number [facility] [address] [address] * (ABNORMAL) PROTHROMBIN (PT) & INR (02/11/2024 7:25 AM CDT) PT 23.0(H) 9.0 - 12.5 sec [facility] INR 2.0(H) 0.8 - 1.1 [facility] Comment: Warfarin Therapeutic Range: Standard Intensity: 2.0 - 3.0 High Intensity: 2.5 - 3.5 Blood 02/11/2024 7:25 AM CDT 02/11/2024 8:01 AM CDT Ernestine Toribio MD LABORATORY Performing Organization Address [facility] Co de Phone Number [facility] [address] [address] * (ABNORMAL) CBC WITH PLATELET (02/11/2024 7:25 AM CDT) WBC 5.83 4.00 - 10.00 k/cmm [facility] RBC 2.94(L) 3.90 - 5.20 m/cmm [facility] Hgb 8.8(L) 11.5 - 15.7 g/dL [facility] Hematocrit 28.0(L) 34.0 - 45.0 % [facility] MCV 95.2 80.0 - 100.0 fL [facility] MCH 29.9 25.0 - 32.0 pg [facility] MCHC 31.4 31.0 - 36.0 g/dL [facility] RDW 15.3(H) 11.5 - 14.5 % [facility] Plt 197 150 - 400 k/cmm [facility] MPV 10.0 6.5 - 12.5 fL [facility] Blood 02/11/2024 7:25 AM CDT 02/11/2024 8:01 AM CDT Ernestine Toribio MD LABORATORY Performing Organization Address City/[facility] Co de Phone Number [facility] [address] [address] * (ABNORMAL) PANEL BASIC METABOLIC (BMP) (02/11/2024 7:25 AM CDT) CO2 28 22 - 30 mEq/L [facility] Glucose 84 70 - 100 mg/dL [facility] BUN 15 6 - 20 mg/dL [facility] Creatinine 0.56 0.50 - 1.00 mg/dL [facility] Calcium 7.6(L) 8.6 - 10.0 mg/dL [facility] Sodium 132(L) 135 - 148 mEq/L [facility] Potassium 4.2 3.5 - 5.3 mEq/L [facility] Chloride 98 92 - 108 mEq/L [facility] AnGap 6(L) 8 - 16 mEq/L [facility] eGFR (2020 CKD-EPI) 105 >=60 ml/min/1.7 3m2 [facility] Comment: The estimated glomerular filtration rate (eGFR) was calculated using the CKD-EPI 2020 creatinine equation, which does not include race as a factor. This equation is validated in individuals 18 years of age and older, and eGFR is normalized to a body surface area of 1.73m^2. Blood 02/11/2024 7:25 AM CDT 02/11/2024 8:01 AM CDT Ernestine Toribio MD LABORATORY Performing Organization Address [facility] Co de Phone Number [facility] [address] [address] * MAGNESIUM (02/11/2024 7:20 AM CDT) Magnesium 2.0 1.6 - 2.6 mg/dL [facility] Blood 02/11/2024 7:20 AM CDT 02/11/2024 7:42 PM CDT Ernestine Toribio MD LABORATORY Performing Organization Address City/[facility] Co de Phone Number [facility] [address] [address] * PHOSPHORUS (02/11/2024 7:20 AM CDT) Phosphorus 3.3 2.5 - 4.5 mg/dL [facility] Blood 02/11/2024 7:20 AM CDT 02/11/2024 7:42 PM CDT Ernestine Toribio MD LABORATORY Performing Organization Address [facility] Co de Phone Number [facility] [address] [address] * (ABNORMAL) PANEL HEPATIC FUNCTION (02/10/2024 7:06 AM CDT) Pathologist [facility] [place] Total Protein 6.6 6.4 - 8.3 g/dL [facility] Albumin 2.4(L) 3.8 - 5.1 g/dL [facility] Bili Total 1.0 <=1.2 mg/dL [facility] Bili Direct 0.4(H) <=0.3 mg/dL [facility] Alk Phos 132(H) 35 - 104 IU/L [facility] Comment:No reference range e stablished for patients <18 years old. ALT (SGPT) <5 <=33 IU/L [facility] AST(SGOT) 36 5 - 40 IU/L [facility] Blood 02/10/2024 7:06 AM CDT 02/10/2024 7:48 AM CDT Ernestine Toribio MD LABORATORY Performing Organization Address [facility] Co de Phone Number [facility] [address] [address] * (ABNORMAL) PROTHROMBIN (PT) & INR (02/10/2024 7:06 AM CDT) PT 28.4(H) 9.0 - 12.5 sec [facility] INR 2.5(H) 0.8 - 1.1 [facility] Comment: Warfarin Therapeutic Range: Standard Intensity: 2.0 - 3.0 High Intensity: 2.5 - 3.5 Blood 02/10/2024 7:06 AM CDT 02/10/2024 7:48 AM CDT Ernestine Toribio MD LABORATORY Performing Organization Address City/[facility] Co de Phone Number [facility] [address] [address] * (ABNORMAL) CBC WITH PLATELET (02/10/2024 7:06 AM CDT) WBC 6.87 4.00 - 10.00 k/cmm [facility] RBC 3.11(L) 3.90 - 5.20 m/cmm [facility] Hgb 9.2(L) 11.5 - 15.7 g/dL [facility] Hematocrit 29.8(L) 34.0 - 45.0 % [facility] MCV 95.8 80.0 - 100.0 fL [facility] MCH 29.6 25.0 - 32.0 pg [facility] MCHC 30.9(L) 31.0 - 36.0 g/dL [facility] RDW 14.9(H) 11.5 - 14.5 % [facility] Plt 221 150 - 400 k/cmm [facility] MPV 10.1 6.5 - 12.5 fL [facility] Blood 02/10/2024 7:06 AM CDT 02/10/2024 7:48 AM CDT Ernestine Toribio MD LABORATORY Performing Organization Address [facility] Co de Phone Number [facility] [address] [address] * MAGNESIUM (02/10/2024 7:06 AM CDT) Magnesium 2.1 1.6 - 2.6 mg/dL [facility] Blood 02/10/2024 7:06 AM CDT 02/10/2024 7:48 AM CDT Ernestine Toribio MD LABORATORY Performing Organization Address City/[facility]/ZIP Co de Phone Number [facility] [address] [address] * (ABNORMAL) PANEL BASIC METABOLIC (BMP) (02/10/2024 7:06 AM CDT) [facility] CO2 26 22 - 30 mEq/L [facility] Glucose 83 70 - 100 mg/dL [facility] BUN 14 6 - 20 mg/dL [facility] Creatinine 0.53 0.50 - 1.00 mg/dL [facility] Calcium 7.9(L) 8.6 - 10.0 mg/dL [facility] Sodium 132(L) 135 - 148 mEq/L [facility] Potassium 4.0 3.5 - 5.3 mEq/L [facility] Chloride 99 92 - 108 mEq/L [facility] AnGap 7(L) 8 - 16 mEq/L [facility] eGFR (2020 CKD-EPI) 106 >=60 ml/min/1.7 3m2 [facility] Comment: The estimated glomerular filtration rate (eGFR) was calculated using the CKD-EPI 2020 creatinine equation, which does not include race as a factor. This equation is validated in individuals 18 years of age and older, and eGFR is normalized to a body surface area of 1.73m^2. Blood 02/10/2024 7:06 AM CDT 02/10/2024 7:48 AM CDT Ernestine Toribio MD LABORATORY [address] [address] * VITAMIN D (25-OH) (02/10/2024 7:06 AM CDT) [facility] Vitamin D Total 25 Hydroxy 66 21 - 70 ng/mL [facility] Comment: Result Interpretation: <=20 ng/mL ?? Vitamin D Deficient 21-29 ng/mL ??Vitamin D Insufficient Blood 02/10/2024 7:06 AM CDT 02/10/2024 7:48 AM CDT Ileana Blanco APRN, [facility] LABORATORY Performing Organization Address City/[facility]/ZIP Co de Phone Number [address] [address] * POC GLUCOSE (02/10/2024 6:15 AM CDT) POC Glucose 91 70 - 100 mg/dL [facility] Blood 02/10/2024 6:15 AM CDT Humphrey Rose MD LABORATORY Performing Organization Address City/[facility]/ZIP Co de Phone Number [facility] POINT OF [facility] [address] [place] [address], [place] * POC GLUCOSE (02/09/2024 11:04 PM CDT) POC Glucose 90 70 - 100 mg/dL [facility] Blood 02/09/2024 11:0 4 PM CDT Humphrey Rose MD LABORATORY Performing Organization Address City/[facility] Co de Phone Number [facility] [address] [place] [address], [place] * POC GLUCOSE (02/09/2024 6:42 AM CDT) POC Glucose 85 70 - 100 mg/dL [facility] POINT [facility] Blood 02/09/2024 6:42 AM CDT Humphrey Rose MD LABORATORY Performing Organization Address City/[facility] Co de Phone Number [facility] [address] [place] [address], [place] * POC GLUCOSE (02/08/2024 11:51 PM CDT) POC Glucose 94 70 - 100 mg/dL [facility] Blood 02/08/2024 11:5 1 PM CDT Humphrey Rose MD LABORATORY [facility] [address] [place] [address], [place] * (ABNORMAL) POC GLUCOSE (02/08/2024 5:58 PM CDT) POC Glucose 135(H) 70 - 100 mg/dL [facility] Blood 02/08/2024 5:58 PM CDT Humphrey Rose MD LABORATORY Performing Organization Address [facility] Co de Phone Number [facility] [address] [place] [address], [place] * POC GLUCOSE (02/08/2024 12:30 PM CDT) POC Glucose 82 70 - 100 mg/dL [facility] Blood 02/08/2024 12:3 0 PM CDT Humphrey Rose MD LABORATORY Performing Organization Address [facility] de Phone Number [facility]ARE [address] [place] [address], [place] * IR PARACENTESIS (02/08/2024 11:45 AM [...] to verify the correct patient, procedure, equipment, personal support worker and site/side marked as required. Initial or [...] CDT) PT 29.3(H) 9.0 - 12.5 sec [facility] INR 2.6(H) 0.8 - 1.1 [facility] Comment: Warfarin Therapeutic Range: Standard Intensity: 2.0 - 3.0 High Intensity: 2.5 - 3.5 Blood 02/08/2024 8:19 AM CDT 02/08/2024 8:35 AM CDT Autumn Jerome MD LABORATORY Performing Organization Address [facility] Co de Phone Number [facility] [address] [address] * (ABNORMAL) PANEL HEPATIC FUNCTION (02/08/2024 8:19 AM CDT) Total Protein 6.1(L) 6.4 - 8.3 g/dL [facility] Albumin 2.5(L) 3.8 - 5.1 g/dL [facility] Bili Total 1.0 <=1.2 mg/dL [facility] Bili Direct 0.5(H) <=0.3 mg/dL [facility] Alk Phos 125(H) 35 - 104 IU/L [facility] Comment:No reference range e stablished for patients <18 years old. ALT (SGPT) 6 <=33 IU/L [facility] AST(SGOT) 30 5 - 40 IU/L [facility] Blood 02/08/2024 8:19 AM CDT 02/08/2024 8:35 AM CDT Autumn Jerome MD LABORATORY Performing Organization Address [facility] Co de Phone Number [facility] [address] [address] * (ABNORMAL) PANEL BASIC METABOLIC (BMP) (02/08/2024 8:19 AM CDT) Sodium 134(L) 135 - 148 mEq/L [facility] Potassium 3.8 3.5 - 5.3 mEq/L [facility] CO2 29 22 - 30 mEq/L [facility] AnGap 5(L) 8 - 16 mEq/L [facility] Glucose 91 70 - 100 mg/dL [facility] BUN 9 6 - 20 mg/dL [facility] Creatinine 0.59 0.50 - 1.00 mg/dL [facility] Chloride 100 92 - 108 mEq/L [facility] Calcium 8.1(L) 8.6 - 10.0 mg/dL [facility] eGFR (2020 CKD-EPI) 104 >=60 ml/min/1.7 3m2 [facility] Comment: The estimated glomerular filtration rate (eGFR) was calculated using the CKD-EPI 2020 creatinine equation, which does not include race as a factor. This equation is validated in individuals 18 years of age and older, and eGFR is normalized to a body surface area of 1.73m^2. Blood 02/08/2024 8:19 AM CDT 02/08/2024 8:35 AM CDT Autumn Jerome MD LABORATORY [facility] [place] [place] [address] * (ABNORMAL) POC GLUCOSE (02/07/2024 6:41 PM CDT) POC Glucose 134(H) 70 - 100 mg/dL [facility] Blood 02/07/2024 6:41 PM CDT Humphrey Rose MD LABORATORY Performing Organization Address City/[facility] Co de Phone Number [facility] [address] [place] [address], * POC GLUCOSE (02/07/2024 12:24 PM CDT) POC Glucose 99 70 - 100 mg/dL [facility] Blood 02/07/2024 12:2 4 PM CDT Humphrey Rose MD LABORATORY Performing Organization Address City/[facility] Co de Phone Number [facility] [address] [place] [address], * PHOSPHORUS (02/07/2024 6:05 AM CDT) Phosphorus 3.2 2.5 - 4.5 mg/dL [facility] Blood 02/07/2024 6:05 AM CDT 02/07/2024 7:28 AM CDT Autumn Jerome MD LABORATORY Performing Organization Address City/[facility]/ZIP Co de Phone Number [facility] [address] [address] * MAGNESIUM (02/07/2024 6:05 AM CDT) Magnesium 2.0 1.6 - 2.6 mg/dL [facility] Blood 02/07/2024 6:05 AM CDT 02/07/2024 7:28 AM CDT Autumn Jerome MD LABORATORY Performing Organization Address [facility] Co de Phone Number [facility] [address] [address] * (ABNORMAL) PANEL HEPATIC FUNCTION (02/07/2024 6:05 AM CDT) Total Protein 5.7(L) 6.4 - 8.3 g/dL [facility] Albumin 2.3(L) 3.8 - 5.1 g/dL [facility] Bili Total 0.9 <=1.2 mg/dL [facility] Bili Direct na <=0.3 mg/dL [facility] Comment:BILID = 0.4. Accurac y of result suspect due to hemolysis. Alk Phos 116(H) 35 - 104 IU/L [facility] Comment:No reference range e stablished for patients <18 years old. ALT (SGPT) 9 <=33 IU/L [facility] AST(SGOT) na 5 - 40 IU/L [facility] Comment:AST = 37. Accuracy o f result suspect due to hemolysis. Blood 02/07/2024 6:05 AM CDT 02/07/2024 7:28 AM CDT Autumn Jerome MD LABORATORY Performing Organization Address City/[facility]/ZIP Co de Phone Number [facility] [address] [address] * (ABNORMAL) CBC WITH PLATELET (02/07/2024 6:05 AM CDT) WBC 9.53 4.00 - 10.00 k/cmm [facility] RBC 3.19(L) 3.90 - 5.20 m/cmm [facility] Hgb 9.5(L) 11.5 - 15.7 g/dL [facility] Hematocrit 29.8(L) 34.0 - 45.0 % [facility] MCV 93.4 80.0 - 100.0 fL [facility] MCH 29.8 25.0 - 32.0 pg [facility] MCHC 31.9 31.0 - 36.0 g/dL [facility] RDW 13.7 11.5 - 14.5 % [facility] Plt 149(L) 150 - 400 k/cmm [facility] MPV 11.1 6.5 - 12.5 fL [facility] NRBC 0.3(H) 0.0 - 0.0 /100WBC [facility] Blood 02/07/2024 6:05 AM CDT 02/07/2024 7:26 AM CDT Autumn Jerome MD LABORATORY [facility] [place] [address] * (ABNORMAL) PANEL BASIC METABOLIC (BMP) (02/07/2024 6:05 AM CDT) Pathologist [facility] [place] CO2 23 22 - 30 mEq/L [facility] AnGap 10 8 - 16 mEq/L [facility] Glucose 87 70 - 100 mg/dL [facility] Creatinine 0.58 0.50 - 1.00 mg/dL [facility] Potassium 5.2 3.5 - 5.3 mEq/L [facility] eGFR (2020 CKD-EPI) 104 >=60 ml/min/1.7 3m2 [facility] Comment: The estimated glomerular filtration rate (eGFR) was calculated using the CKD-EPI 2020 creatinine equation, which does not include race as a factor. This equation is validated in individuals 18 years of age and older, and eGFR is normalized to a body surface area of 1.73m^2. Sodium 135 135 - 148 mEq/L [facility] BUN 11 6 - 20 mg/dL [facility] Calcium 7.9(L) 8.6 - 10.0 mg/dL [facility] Chloride 102 92 - 108 mEq/L [facility] Blood 02/07/2024 6:05 AM CDT 02/07/2024 7:28 AM CDT Autumn Jerome MD LABORATORY Performing Organization Address City/[facility]/ZIP Co de Phone Number [facility] [place] [address] * (ABNORMAL) POC GLUCOSE (02/06/2024 6:08 PM CDT) POC Glucose 124(H) 70 - 100 mg/dL [facility] Blood 02/06/2024 6:08 PM CDT Humphrey Rose MD LABORATORY Performing Organization Address [facility] Co de Phone Number [facility] [place] [address], * POC GLUCOSE (02/06/2024 11:57 AM CDT) POC Glucose 98 70 - 100 mg/dL [facility] Blood 02/06/2024 11:5 7 AM CDT Humphrey Rose MD LABORATORY Performing Organization Address [facility] Co de Phone Number [facility] [place] [address], * (ABNORMAL) PROTHROMBIN (PT) & INR (02/06/2024 7:10 AM CDT) PT 18.3(H) 9.0 - 12.5 sec [facility] INR 1.6(H) 0.8 - 1.1 [facility] Comment: Warfarin Therapeutic Range: Standard Intensity: 2.0 - 3.0 High Intensity: 2.5 - 3.5 Blood 02/06/2024 7:10 AM CDT 02/06/2024 7:28 AM CDT Autumn Jerome MD LABORATORY Performing Organization Address [facility] Co de Phone Number [facility] [address] [address] * (ABNORMAL) PANEL HEPATIC FUNCTION (02/06/2024 7:10 AM CDT) Total Protein 5.6(L) 6.4 - 8.3 g/dL [facility] Albumin 2.3(L) 3.8 - 5.1 g/dL [facility] Bili Total 0.8 <=1.2 mg/dL [facility] Bili Direct 0.4(H) <=0.3 mg/dL [facility] Alk Phos 101 35 - 104 IU/L [facility] Comment:No reference range e stablished for patients <18 years old. ALT (SGPT) 12 <=33 IU/L [facility] AST(SGOT) 33 5 - 40 IU/L [facility] Blood 02/06/2024 7:10 AM CDT 02/06/2024 7:28 AM CDT Autumn Jerome MD LABORATORY Performing Organization Address [facility] Co de Phone Number [facility] [address] [address] * (ABNORMAL) PANEL BASIC METABOLIC (BMP) (02/06/2024 7:10 AM CDT) CO2 26 22 - 30 mEq/L [facility] AnGap 5(L) 8 - 16 mEq/L [facility] Glucose 105(H) 70 - 100 mg/dL [facility] Creatinine 0.61 0.50 - 1.00 mg/dL [facility] Sodium 135 135 - 148 mEq/L [facility] Potassium 4.4 3.5 - 5.3 mEq/L [facility] eGFR (2020 CKD-EPI) 103 >=60 ml/min/1.7 3m2 [facility] Comment: The estimated glomerular filtration rate (eGFR) was calculated using the CKD-EPI 2020 creatinine equation, which does not include race as a factor. This equation is validated in individuals 18 years of age and older, and eGFR is normalized to a body surface area of 1.73m^2. BUN 11 6 - 20 mg/dL [facility] Calcium 8.1(L) 8.6 - 10.0 mg/dL [facility] Chloride 104 92 - 108 mEq/L [facility] Blood 02/06/2024 7:10 AM CDT 02/06/2024 7:28 AM CDT Lia Mcclellan PA-C LABORATORY Performing Organization Address City/[facility] [place] [place] [address] * (ABNORMAL) HEMOGLOBIN (02/06/2024 7:10 AM CDT) Hgb 8.8(L) 11.5 - 15.7 g/dL [facility] Blood 02/06/2024 7:10 AM CDT 02/06/2024 7:28 AM CDT Lia Mcclellan PA-C LABORATORY Performing Organization Address [facility] Co de Phone Number [address] [address] * (ABNORMAL) POC GLUCOSE (02/06/2024 6:06 AM CDT) POC Glucose 119(H) 70 - 100 mg/dL [facility] Blood 02/06/2024 6:06 AM CDT Humphrey Rose MD LABORATORY Performing Organization Address City/[facility] Co de Phone Number [facility] [address] [place] [address], * (ABNORMAL) POC GLUCOSE (02/06/2024 12:09 AM CDT) POC Glucose 102(H) 70 - 100 mg/dL [facility] Blood 02/06/2024 12:0 9 AM CDT Humphrey Rose MD LABORATORY Performing Organization Address City/[facility]/ZIP Co de Phone Number [facility] POINT OF CARE [address] [place] [address], [place] * (ABNORMAL) POC GLUCOSE (02/05/2024 3:57 PM CDT) POC Glucose 112(H) 70 - 100 mg/dL [facility] Blood 02/05/2024 3:57 PM CDT Humphrey Rose MD LABORATORY Performing Organization Address [facility] Co de Phone Number [facility] POINT OF CARE [address] [place] [address], [place] * XR C ARM OVER 3 [...] ADMIN) (02/05/2024 1:19 PM CDT) Unit Number [id number] [facility] Product Code [id number] [facility] Blood Expiration Date [id number] [facility] Blood Type [id number] [facility] Blood Type (TEXT) APOS [facility] Other 02/05/2024 1:19 PM CDT 02/05/2024 1:16 PM CDT Marcus Hanna MD BLOOD BANK ORDERABLE S (BLOOD ADMIN) Performing Organization Address [facility] Co de Phone Number [facility] [place] [address] * POC GLUCOSE (02/05/2024 11:21 AM CDT) POC Glucose 92 70 - 100 mg/dL [facility] Blood 02/05/2024 11:2 1 AM CDT Humphrey Rose MD LABORATORY Performing Organization Address [facility]/ZIP Co de Phone Number [facility] [address] [place] [address], * WOUND CULTURE:GRAM STAIN OPTIONAL (02/05/2024 10:00 AM CDT) Final Report Duplicate order. Patient account credited. [facility] Gram Stain Report Few PMN's seen. No organisms seen. [facility] Swab STRUCTURE OF RIGHT FOOT / Unknown 02/05/2024 10:00 AM CDT 02/05/2024 10:25 AM CDT Narrative [facility] - 02/05/2024 2:53 PM CDT Purulent drainage. Gram Stain please, aerobic, anaerobic Do you want a gram stain: Yes Autumn Jerome MD LAB MICROBIOLOGY Performing Organization Address [facility] Co de Phone Number [facility] [address] [address] * (ABNORMAL) PROTHROMBIN (PT) & INR (02/05/2024 9:15 AM CDT) PT 16.9(H) 9.0 - 12.5 sec [facility] INR 1.5(H) 0.8 - 1.1 [facility] Comment: Warfarin Therapeutic Range: Standard Intensity: 2.0 - 3.0 High Intensity: 2.5 - 3.5 Blood 02/05/2024 9:15 AM CDT 02/05/2024 9:43 AM CDT Autumn Jerome MD LABORATORY Performing Organization Address [facility] Co de Phone Number [facility] [address] [address] * (ABNORMAL) PANEL HEPATIC FUNCTION (02/05/2024 9:15 AM CDT) Total Protein 5.5(L) 6.4 - 8.3 g/dL [facility] Albumin 2.2(L) 3.8 - 5.1 g/dL [facility] Bili Total 0.7 <=1.2 mg/dL [facility] Bili Direct 0.4(H) <=0.3 mg/dL [facility] Alk Phos 101 35 - 104 IU/L [facility] Comment:No reference range e stablished for patients <18 years old. ALT (SGPT) 13 <=33 IU/L [facility] AST(SGOT) 33 5 - 40 IU/L [facility] Blood 02/05/2024 9:15 AM CDT 02/05/2024 9:43 AM CDT Autumn Jerome MD LABORATORY Performing Organization Address [facility] Co de Phone Number [facility] [address] [address] * (ABNORMAL) CBC WITH PLATELET (02/05/2024 9:15 AM CDT) WBC 5.51 4.00 - 10.00 k/cmm [facility] RBC 3.11(L) 3.90 - 5.20 m/cmm [facility] Hgb 9.4(L) 11.5 - 15.7 g/dL [facility] Hematocrit 28.9(L) 34.0 - 45.0 % [facility] MCV 92.9 80.0 - 100.0 fL [facility] MCH 30.2 25.0 - 32.0 pg [facility] MCHC 32.5 31.0 - 36.0 g/dL [facility] RDW 13.4 11.5 - 14.5 % [facility] Plt 164 150 - 400 k/cmm [facility] MPV 10.2 6.5 - 12.5 fL [facility] Blood 02/05/2024 9:15 AM CDT 02/05/2024 9:43 AM CDT Autumn Jerome MD LABORATORY Performing Organization Address City/[facility]/ZIP Co de Phone Number [facility] [address] [address] * (ABNORMAL) PANEL BASIC METABOLIC (BMP) (02/05/2024 9:15 AM CDT) CO2 25 22 - 30 mEq/L [facility] Glucose 112(H) 70 - 100 mg/dL [facility] BUN 12 6 - 20 mg/dL [facility] Creatinine 0.62 0.50 - 1.00 mg/dL [facility] Calcium 7.8(L) 8.6 - 10.0 mg/dL [facility] Sodium 134(L) 135 - 148 mEq/L [facility] Potassium 4.1 3.5 - 5.3 mEq/L [facility] Chloride 102 92 - 108 mEq/L [facility] AnGap 7(L) 8 - 16 mEq/L [facility] eGFR (2020 CKD-EPI) 103 >=60 ml/min/1.7 3m2 [facility] Comment: The estimated glomerular filtration rate (eGFR) was calculated using the CKD-EPI 2020 creatinine equation, which does not include race as a factor. This equation is validated in individuals 18 years of age and older, and eGFR is normalized to a body surface area of 1.73m^2. Blood 02/05/2024 9:15 AM CDT 02/05/2024 9:43 AM CDT Autumn Jerome MD LABORATORY Performing Organization Address City/[facility]/ZIP Co de Phone Number [facility] [place] [address] * (ABNORMAL) POC GLUCOSE (02/05/2024 6:02 AM CDT) POC Glucose 106(H) 70 - 100 mg/dL [facility] POINT OF CARE Blood 02/05/2024 6:02 AM CDT Humphrey Rose MD LABORATORY Performing Organization Address City/[facility] Co de Phone Number [facility] POINT OF CARE [address] [place] [address], [place] * (ABNORMAL) POC GLUCOSE (02/04/2024 11:58 PM CDT) POC Glucose 122(H) 70 - 100 mg/dL [facility] POINT OF CARE Blood 02/04/2024 11:5 8 PM CDT Humphrey Rose MD LABORATORY Performing Organization Address City/[facility] Co de Phone Number [facility] POINT OF CARE [address] [place] [address], * (ABNORMAL) ANAEROBE CULTURE (02/04/2024 10:44 PM CDT) Final Report Few Enterococcus faecalis isolated. No anaerobes isolated. (POS) [facility] Organism ENTEROCOCCUS FAECALIS(POS) [facility] Swab STRUCTURE OF RIGHT FOOT / Unknown 02/04/2024 10:44 PM CDT 02/05/2024 9:20 AM CDT Autumn Jerome MD LAB MICROBIOLOGY Performing Organization Address [facility] Co de Phone Number [facility] [address] [address] * (ABNORMAL) WOUND CULTURE:GRAM STAIN OPTIONAL (02/04/2024 10:44 PM CDT) Final Report Moderate Methicillin sensitive Staphylococcus aureus (MSSA) isolated. Methicillin susceptible by PBP2a. Rare Staphylococcus epidermidis isolated. (POS) [facility] Organism METHICILLIN SENSITIVE STAPHYLOCOCCUS AUREUS (MSSA)(POS) [facility] Organism STAPHYLOCOCCUS EPIDERMIDIS(POS) [facility] Gram Stain Report Few PMN's seen. No organisms seen. [facility] Swab STRUCTURE OF RIGHT FOOT / Unknown 02/04/2024 10:44 PM CDT 02/05/2024 9:20 AM CDT Narrative [facility] - 02/07/2024 9:52 AM CDT Do [...] Jerome MD LAB MICROBIOLOGY Performing Organization Address [facility]/State/ZIP Co de Phone Number [facility] [address] [address] * HELD MICRO SPECIMEN (02/04/2024 10:44 PM CDT) Final Report Microbiology specimen received in lab with no orders. Add-on order must be placed within 24 hours. If no orders placed, specimen will be discarded. [facility] Swab STRUCTURE OF RIGHT FOOT / Unknown 02/04/2024 10:44 PM CDT 02/04/2024 10:45 PM CDT Narrative [facility] - 02/04/2024 10:46 PM CDT Epic message sent to Autumn Jerome at 02/04/2024 22:46:13 CDT by Solitario Mckinnon MLS. Autumn Jerome MD LAB MICROBIOLOGY Performing Organization Address [facility] Co de Phone Number [address] [address] * POC GLUCOSE (02/04/2024 9:50 PM CDT) POC Glucose 94 70 - 100 mg/dL [facility] Blood 02/04/2024 9:50 PM CDT Humphrey Rose MD LABORATORY Performing Organization Address [facility] Co de Phone Number [facility] [address] [place] [id number], * BLOOD AEROBIC/ANAEROBIC CULTURE (02/04/2024 6:44 PM CDT) Final Report No growth after 5 days. [facility] Blood (Peripheral) 02/04/2024 6:44 PM CDT 02/04/2024 10:14 PM CDT Autumn Jerome MD LAB MICROBIOLOGY Performing Organization Address [facility] Co de Phone Number [address] [address] * BLOOD AEROBIC/ANAEROBIC CULTURE (02/04/2024 6:44 PM CDT) Final Report No growth after 5 days. [facility] Blood (Peripheral) 02/04/2024 6:44 PM CDT 02/04/2024 10:14 PM CDT Autumn Jerome MD LAB MICROBIOLOGY Performing Organization Address [facility] Co de Phone Number [facility] [address] [address] * POTASSIUM (02/04/2024 1:17 PM CDT) Potassium 4.3 3.5 - 5.3 mEq/L [facility] Blood 02/04/2024 1:17 PM CDT 02/04/2024 1:33 PM CDT Autumn Jerome MD LABORATORY Performing Organization Address [facility] Co de Phone Number [facility] [address] [address] * ANTIBODY SCREEN (02/04/2024 1:17 PM CDT) Nicky Screen Negative [facility] Blood 02/04/2024 1:17 PM CDT 02/04/2024 1:34 PM CDT Solitario Ha APRN, [employer] LAB TRANSFUSI ON SERVICES Performing Organization Address [facility] Co de Phone Number [address] [address] * BLOOD TYPING-ABO/RH (02/04/2024 1:17 PM CDT) ABORHG A POS [facility] Blood 02/04/2024 1:17 PM CDT 02/04/2024 1:34 PM CDT Solitario Ha APRN [employer] LAB [employer]SF[employer] Performing Organization Address [facility] Co de Phone Number [facility] [address] [address] * (ABNORMAL) PROTHROMBIN (PT) & INR (02/04/2024 6:40 AM CDT) PT 16.2(H) 9.0 - 12.5 sec [facility] INR 1.4(H) 0.8 - 1.1 [facility] Comment: Warfarin Therapeutic Range: Standard Intensity: 2.0 - 3.0 High Intensity: 2.5 - 3.5 Blood 02/04/2024 6:40 AM CDT 02/04/2024 8:27 AM CDT Autumn Jerome MD LABORATORY [facility] [address] [address] * (ABNORMAL) PANEL HEPATIC FUNCTION (02/04/2024 6:40 AM CDT) Total Protein 5.5(L) 6.4 - 8.3 g/dL [facility] Albumin 2.2(L) 3.8 - 5.1 g/dL [facility] Bili Total 0.8 <=1.2 mg/dL [facility] Bili Direct 0.5(H) <=0.3 mg/dL [facility] Alk Phos 96 35 - 104 IU/L [facility] Comment:No reference range e stablished for patients <18 years old. ALT (SGPT) 15 <=33 IU/L [facility] AST(SGOT) 37 5 - 40 IU/L [facility] Blood 02/04/2024 6:40 AM CDT 02/04/2024 8:27 AM CDT Autumn Jerome MD LABORATORY [facility] [address] [address] * (ABNORMAL) CBC WITH PLATELET (02/04/2024 6:40 AM CDT) WBC 4.55 4.00 - 10.00 k/cmm [facility] RBC 3.03(L) 3.90 - 5.20 m/cmm [facility] Hgb 9.2(L) 11.5 - 15.7 g/dL [facility] Hematocrit 28.8(L) 34.0 - 45.0 % [facility] MCV 95.0 80.0 - 100.0 fL [facility] MCH 30.4 25.0 - 32.0 pg [facility] MCHC 31.9 31.0 - 36.0 g/dL [facility] RDW 13.6 11.5 - 14.5 % [facility] Plt 152 150 - 400 k/cmm [facility] MPV 10.9 6.5 - 12.5 fL [facility] Blood 02/04/2024 6:40 AM CDT 02/04/2024 8:27 AM CDT Autumn Jerome MD LABORATORY [facility] [address] [address] * (ABNORMAL) PANEL BASIC METABOLIC (BMP) (02/04/2024 6:40 AM CDT) CO2 26 22 - 30 mEq/L [facility] Glucose 76 70 - 100 mg/dL [facility] BUN 12 6 - 20 mg/dL [facility] Creatinine 0.64 0.50 - 1.00 mg/dL [facility] Calcium 7.9(L) 8.6 - 10.0 mg/dL [facility] Sodium 136 135 - 148 mEq/L [facility] Potassium 3.4(L) 3.5 - 5.3 mEq/L [facility] Chloride 102 92 - 108 mEq/L [facility] AnGap 8 8 - 16 mEq/L [facility] eGFR (2020 CKD-EPI) 102 >=60 ml/min/1.7 3m2 [facility] Comment: The estimated glomerular filtration rate (eGFR) was calculated using the CKD-EPI 2020 creatinine equation, which does not include race as a factor. This equation is validated in individuals 18 years of age and older, and eGFR is normalized to a body surface area of 1.73m^2. Blood 02/04/2024 6:40 AM CDT 02/04/2024 8:27 AM CDT Autumn Jerome MD LABORATORY Performing Organization Address [facility] Co de Phone Number [facility] [address] [address] * (ABNORMAL) BLOOD AEROBIC/ANAEROBIC CULTURE (02/03/2024 12:13 PM CDT) Final Report Positive Blood Culture Gram stain result called to and read back by: Dr. Autumn Jerome with [facility] [place] at 02/04/2024 14:23:58 by Leidy Mayer MLS([facility]) SM. Bacillus species not anthracis isolated from aerobic bottle only. Organism identified 02/05/2024 11:47:27 No susceptibility done. Plates held one week. (POS) [facility] Organism BACILLUS SPECIES NOT ANTHRACIS(POS) [facility] Blood (Peripheral) 02/03/2024 12:13 PM CDT 02/03/2024 1:03 PM CDT Autumn Jerome MD LAB MICROBIOLOGY Performing Organization Address [facility] Co de Phone Number [facility] [address] [address] * BLOOD AEROBIC/ANAEROBIC CULTURE (02/03/2024 12:06 PM CDT) Final Report No growth after 5 days. [facility] Blood (Peripheral) 02/03/2024 12:06 PM CDT 02/03/2024 1:03 PM CDT Autumn Jerome MD LAB MICROBIOLOGY Performing Organization Address [facility] Co de Phone Number [facility] [address] [address] * (ABNORMAL) PROTHROMBIN (PT) & INR (02/03/2024 8:03 AM CDT) PT 19.8(H) 9.0 - 12.5 sec [facility] INR 1.8(H) 0.8 - 1.1 [facility] Comment: Warfarin Therapeutic Range: Standard Intensity: 2.0 - 3.0 High Intensity: 2.5 - 3.5 Blood 02/03/2024 8:03 AM CDT 02/03/2024 8:48 AM CDT Enedina Austin MD LABORATORY Performing Organization Address [facility] de Phone Number [facility] [address] [address] * (ABNORMAL) PANEL HEPATIC FUNCTION (02/03/2024 8:03 AM CDT) Total Protein 5.5(L) 6.4 - 8.3 g/dL [facility] Albumin 2.2(L) 3.8 - 5.1 g/dL [facility] Bili Total 0.9 <=1.2 mg/dL [facility] Bili Direct 0.5(H) <=0.3 mg/dL [facility] Alk Phos 98 35 - 104 IU/L [facility] Comment:No reference range e stablished for patients <18 years old. ALT (SGPT) 16 <=33 IU/L [facility] AST(SGOT) 36 5 - 40 IU/L [facility] Blood 02/03/2024 8:03 AM CDT 02/03/2024 8:48 AM CDT Enedina Austin MD LABORATORY Performing Organization Address [facility] de Phone Number [facility] [address] [address] * (ABNORMAL) PANEL BASIC METABOLIC (BMP) (02/03/2024 8:03 AM CDT) CO2 25 22 - 30 mEq/L [facility] Glucose 95 70 - 100 mg/dL [facility] BUN 10 6 - 20 mg/dL [facility] Creatinine 0.70 0.50 - 1.00 mg/dL [facility] Calcium 7.5(L) 8.6 - 10.0 mg/dL [facility] Sodium 133(L) 135 - 148 mEq/L [facility] Potassium 3.4(L) 3.5 - 5.3 mEq/L [facility] Chloride 100 92 - 108 mEq/L [facility] AnGap 8 8 - 16 mEq/L [facility] eGFR (2020 CKD-EPI) 100 >=60 ml/min/1.7 3m2 [facility] Comment: The estimated glomerular filtration rate (eGFR) was calculated using the CKD-EPI 2020 creatinine equation, which does not include race as a factor. This equation is validated in individuals 18 years of age and older, and eGFR is normalized to a body surface area of 1.73m^2. Blood 02/03/2024 8:03 AM CDT 02/03/2024 8:48 AM CDT Enedina Austin MD LABORATORY [facility] [address] [address] * (ABNORMAL) CBC WITH PLTS/AUTO DIFF (02/03/2024 8:03 AM CDT) WBC 5.74 4.00 - 10.00 k/cmm [facility] RBC 3.08(L) 3.90 - 5.20 m/cmm [facility] Hgb 9.4(L) 11.5 - 15.7 g/dL [facility] Hematocrit 28.1(L) 34.0 - 45.0 % [facility] MCV 91.2 80.0 - 100.0 fL [facility] MCH 30.5 25.0 - 32.0 pg [facility] MCHC 33.5 31.0 - 36.0 g/dL [facility] RDW 13.6 11.5 - 14.5 % [facility] Plt 155 150 - 400 k/cmm [facility] MPV 10.6 6.5 - 12.5 fL [facility] Automated Abs Neutrophil 4.49 1.70 - 6.50 k/cmm [facility] Comment:Preliminary ANC, Fin al Result to Follow Abs Immature Granulocyte 0.02 0.00 - 0.09 k/cmm [facility] Comment:The Immature Granulo cyte Absolute count contains metamyelocytes and myelocytes. Abs Neutrophil 4.49 1.70 - 6.50 k/cmm [facility] Abs Lymphocyte 0.69(L) 0.80 - 4.00 k/cmm [facility] Abs Monocyte 0.53 0.20 - 1.00 k/cmm [facility] Abs Eosinophil 0.00 0.00 - 0.60 k/cmm [facility] Abs Basophil 0.01 0.00 - 0.20 k/cmm [facility] Blood 02/03/2024 8:03 AM CDT 02/03/2024 8:48 AM CDT Enedina Austin MD LABORATORY [facility] [address] [address] * CT RIGHT FEMUR NO IV CONTRAST (02/02/2024 10:19 PM CDT) Anatomical Region Laterality Modality Lower Extremity Computed Tomogra phy 02/02/2024 10:1 4 PM CDT Addenda Addendum by Carter Reyes MD on 02/02/2024 10:29 PM CDT ADDENDUM: 3-D reconstructions were created by the certified ophthalmic technologist on the CT scanner and reviewed [...] perforation and infection ??Alternatives discussed: ??No treatment [place] protocol: ??Patient identity confirmed: ??Verbally with patient [...] ??Analgesia without sedation, anxiolysis and regional anesthesia [place] protocol: ??Procedure explained and questions answered to [...] vital sign checks, continuous pulse oximetry and personnel monitor ??Intra-procedure events: respiratory depression ?Intra-procedure management: [...] MISCELLANEOUS BODY FLUID (02/02/2024 7:51 PM CDT) [facility] Result 1.3 [facility] Units BF g/dL [facility] Comment:The reference interv al(s) and other method performance specifications have not been established for this body fluid. The test result must be integrated into the clinical context for interpretation. Fluid 02/02/2024 7:51 PM CDT 02/02/2024 8:11 PM CDT Narrative [facility] - 02/02/2024 9:01 PM CDT fluid: Peritoneal Test: TP Humphrey Rose MD LABORATORY [facility] [address] [address] * BODY FLUID CULTURE:INCLUDES GRAM STAIN (02/02/2024 7:51 PM CDT) Final Report No growth. [facility] Gram Stain Report PMN's seen. No organisms seen. [facility] Peritoneal Fluid PERITONEUM (SEROUS MEMBRANE) STRUCTURE / Unknown 02/02/2024 7:51 PM CDT 02/02/2024 8:04 PM CDT Humphrey Rose MD LAB MICROBIOLO GY Performing Organization Address [facility] Co de Phone Number [facility] [address] [address] * BODY FLUID CELL COUNT/DIFF (02/02/2024 7:51 PM CDT) Fluid Type PT Peritoneal [facility] Comment:Normal reference ran ges have not been determined; clinical correlation is recommended. Volume PT Fluid 40 mL [facility] Appearance PT Hazy [facility] Color bf Yellow [facility] Rbc PT Fluid <1,000 cells/ul [facility] Nuc Ct PT Fluid 93 cells/ul [facility] Neutrophil PT Fluid 2 % [facility] Lymphocytes PT Fluid 19 % [facility] Basophil PT Fluid 1 % [facility] MONO/MACS FL 53 % [facility] Other PT Fluid 25 % [facility] Comment:Others are mesotheli al cells. Peritoneal Fluid 02/02/2024 7:51 PM CDT 02/02/2024 7:57 PM CDT Humphrey Rose MD LABORATORY Performing Organization Address [facility] Co de Phone Number [facility] [address] [address] * CT ABDOMEN/PELVIS W/IV CON (02/02/2024 6:50 [...] (02/02/2024 5:15 PM CDT) Color YELLOW YELLOW [facility] Appearance CLOUDY(A) CLEAR [facility] Urine Glucose NEGATIVE NEGATIVE mg/dL [facility] Bili UA TRACE(A) NEGATIVE [facility] Ketones TRACE(A) NEGATIVE [facility] Specific [place] 1.024 1.003 - 1.030 [facility] Blood Ur LARGE(A) Neg-Trace [facility] PH Urine 6.0 5.0 - 7.0 [facility] Protein Ur 30(A) Neg-Trace [facility] Urobilinogen >=8(A) NORMAL EU/dL [facility] Nitrite Ur NEGATIVE NEGATIVE [facility] Leuk Est SMALL(A) Neg-Trace [facility] [facility] WBC Ur 6-10(A) 0 - 5 perHPF [facility] RBC Ur >20(A) 0 - 3 perHPF [facility] SQ EPITH 0-5 0 - 5 perHPF [facility] Bacteria UA PRESENT [facility] Comment:Presence of bacteria does not necessarily indicate a UTI. The presence of bacteria can indicate a non-clean catch urine specimen. Bacteria should be used in conjunction with other UA results and clinical presentation to assist in diagnosing an infection. Urinalysis Performed at: [facility] Urine 02/02/2024 5:15 PM CDT 02/02/2024 5:18 PM CDT Humphrey Rose MD LABORATORY Performing Organization Address City/State/[facility] Co de Phone Number [facility] [address] [address] * (ABNORMAL) URINE CULTURE (02/02/2024 5:03 PM CDT) Urine Cult Greater than 100,000 organisms/ml Escherichia coli isolated.(POS) [facility] Organism ESCHERICHIA COLI(POS) [facility] Urine 02/02/2024 5:03 PM CDT 02/02/2024 [...] MD LAB MICROBIOLO GY Performing Organization Address [facility] de Phone Number [facility] [address] [address] * PRECAUTIONARY TUBE (02/02/2024 5:00 PM CDT) Pathologist [facility] [place] Prec Tube Precautionary Blood Bank Specimen Received. [facility] Blood 02/02/2024 5:00 PM CDT 02/02/2024 5:11 PM CDT [place] MD LAB TRANSFUSION SERV ICES Performing Organization Address [facility] de Phone Number [facility] [address] [address] * LIPASE (02/02/2024 4:01 PM CDT) [facility] Lipase 13 13 - 60 IU/L [facility] Blood 02/02/2024 4:01 PM CDT 02/02/2024 7:02 PM CDT Humphrey Rose MD LABORATORY Performing Organization Address [facility] de Phone Number [facility] [address] [address] * (ABNORMAL) PANEL HEPATIC FUNCTION (02/02/2024 4:01 PM CDT) Pathologist [facility] [place] Total Protein 5.8(L) 6.4 - 8.3 g/dL [facility] Albumin 2.4(L) 3.8 - 5.1 g/dL [facility] Bili Total 1.1 <=1.2 mg/dL [facility] Bili Direct 0.5(H) <=0.3 mg/dL [facility] Alk Phos 107(H) 35 - 104 IU/L [facility] Comment:No reference range e stablished for patients <18 years old. ALT (SGPT) 19 <=33 IU/L [facility] AST(SGOT) 39 5 - 40 IU/L [facility] Blood 02/02/2024 4:01 PM CDT 02/02/2024 7:02 PM CDT Humphrey Rose MD LABORATORY Performing Organization Address City/[facility]/ZIP Co de Phone Number [facility] [address] [address] * LACTATE (LACTIC ACID) (02/02/2024 4:01 PM CDT) Lactate 1.1 0.7 - 2.1 mmol/L [facility] Blood 02/02/2024 4:01 PM CDT 02/02/2024 4:15 PM CDT Narrative [facility] - 02/02/2024 4:15 PM CDT Send specimen on ice! Humphrey Rose MD LABORATORY Performing Organization Address [facility] Co de Phone Number [address] [address] * (ABNORMAL) PROTHROMBIN (PT) & INR (02/02/2024 4:01 PM CDT) PT 18.0(H) 9.0 - 12.5 sec [facility] INR 1.6(H) 0.8 - 1.1 [facility] Comment: Warfarin Therapeutic Range: Standard Intensity: 2.0 - 3.0 High Intensity: 2.5 - 3.5 Blood 02/02/2024 4:01 PM CDT 02/02/2024 4:38 PM CDT Humphrey Rose MD LABORATORY Performing Organization Address [facility] Co de Phone Number [facility] [address] [address] * HS TROPONIN (02/02/2024 4:01 PM CDT) Pathologist [facility] [place] HS Troponin I <3 <=14 ng/L [facility] Blood 02/02/2024 4:01 PM CDT 02/02/2024 4:36 PM CDT Narrative [facility] - 02/02/2024 5:10 PM CDT If ordering as an add-on lab, you must call the lab. Humphrey Rose MD LABORATORY [facility] [address] [address] * (ABNORMAL) CBC WITH PLTS/AUTO DIFF (02/02/2024 4:01 PM CDT) [facility] WBC 7.34 4.00 - 10.00 k/cmm [facility] RBC 3.08(L) 3.90 - 5.20 m/cmm [facility] Hgb 9.3(L) 11.5 - 15.7 g/dL [facility] Hematocrit 28.5(L) 34.0 - 45.0 % [facility] MCV 92.5 80.0 - 100.0 fL [facility] MCH 30.2 25.0 - 32.0 pg [facility] MCHC 32.6 31.0 - 36.0 g/dL [facility] RDW 13.5 11.5 - 14.5 % [facility] Plt 176 150 - 400 k/cmm [facility] MPV 10.2 6.5 - 12.5 fL [facility] Automated Abs Neutrophil 5.98 1.70 - 6.50 k/cmm [facility] Comment:Preliminary ANC, Fin al Result to Follow Abs Immature Granulocyte 0.03 0.00 - 0.09 k/cmm [facility] Comment:The Immature Granulo cyte Absolute count contains metamyelocytes and myelocytes. Abs Neutrophil 5.98 1.70 - 6.50 k/cmm [facility] Abs Lymphocyte 0.80 0.80 - 4.00 k/cmm [facility] Abs Monocyte 0.52 0.20 - 1.00 k/cmm [facility] Abs Eosinophil 0.00 0.00 - 0.60 k/cmm [facility] Abs Basophil 0.01 0.00 - 0.20 k/cmm [facility] Blood 02/02/2024 4:01 PM CDT 02/02/2024 4:36 PM CDT Humphrey Rose MD LABORATORY Performing Organization Address [facility] de Phone Number [facility] [address] [address] * (ABNORMAL) ED CHEMISTRY LABS(NA,K,CL,CO2,GLU,CREAT,CA-IONIZED,ANION GAP) (02/02/2024 4:01 PM CDT) Sodium 135 135 - 148 mEq/L [facility] Chloride 100 92 - 108 mEq/L [facility] AnGap 9 8 - 16 mEq/L [facility] Glucose 105(H) 70 - 100 mg/dL [facility] ICA, Actual 4.21(L) 4.40 - 5.20 mg/dL [facility] ICA, pH Corrected 4.45 4.40 - 5.20 mg/dL [facility] Creatinine 0.72 0.50 - 1.00 mg/dL [facility] BICARB 26 22 - 26 mEq/L [facility] eGFR (2020 CKD-EPI) 96 >=60 ml/min/1.7 3m2 [facility] Comment: The estimated glomerular filtration rate (eGFR) was calculated using the CKD-EPI 2020 creatinine equation, which does not include race as a factor. This equation is validated in individuals 18 years of age and older, and eGFR is normalized to a body surface area of 1.73m^2. Potassium 3.5 3.5 - 5.3 mEq/L [facility] Blood 02/02/2024 4:01 PM CDT 02/02/2024 4:15 PM CDT Humphrey Rose MD LABORATORY Performing Organization Address [facility]/ZIP Co de Phone Number [facility] [address] [address] * GLYCOSYLATED HGB - A1C (02/02/2024 4:00 PM CDT) Hemoglobin A1C 4.4 4.0 - 5.6 % [facility] Comment: Increased risk for diabetes (prediabetes): 5.7-6.4% Diabetes >=6.5% In the absence of unequivocal hyperglycemia, diagnosis requires two abnormal test results (i.e. HbA1c and glucose) or two abnormal results from specimens collected at two different timepoints. The presence of some hemoglobin variants or red cell disorders may interfere with the measurement of hemoglobin A1c (HbA1c). Estimated Average Glucose 80 68 - 114 [facility] Comment: The estimated Average Glucose (eAG) was calculated using an equation derived from a study of 507 adults with type 1, type 2, or no diabetes. Minority populations were underrepresented and children were not included. The eAG is not equivalent to a fasting glucose concentration. Blood 02/02/2024 4:00 PM CDT 02/02/2024 11:05 PM CDT Enedina Austin MD LABORATORY Performing Organization Address [facility] Co de Phone Number [facility] [place] [address] * ANTIBODY SCREEN (02/02/2024 4:00 PM CDT) Nicky Screen Negative [facility] Blood 02/02/2024 4:00 PM CDT 02/02/2024 10:16 PM CDT Ileana Howell APRN, CNP LAB TRANSFUSI ON SERVICES Performing Organization Address [facility] Co de Phone Number [facility] [address] [address] * BLOOD TYPING-ABO/RH (02/02/2024 4:00 PM CDT) ABORHG A POS [facility] Blood 02/02/2024 4:00 PM CDT 02/02/2024 10:16 PM CDT Ileana Howell APRN, CNP LAB TRANSFUSI ON SERVICES Performing Organization Address [facility] Co de Phone Number [facility] [address] [address] * PTT (APTT) (02/02/2024 4:00 PM CDT) APTT 33.0 25.0 - 37.0 sec [facility] Blood 02/02/2024 4:00 PM CDT 02/02/2024 5:57 PM CDT Enedina Austin MD LABORATORY Performing Organization Address [facility] Co de Phone Number [facility] [id number] [place] [address] * ED EKG (12-LEAD) (02/02/2024 3:48 PM CDT) 02/02/2024 3:48 PM CDT Impressions [facility]IS EKG ORDERS - 02/02/2024 3:48 PM CDT SINUS RHYTHM LOW QRS VOLTAGE IN EXTREMITY LEADS ??[QRS DEFLECTION < 0.5 mV IN LIMB LEADS] POSSIBLE ANTERIOR MYOCARDIAL INFARCTION , PROBABLY OLD [30 ms Q WAVE IN V3/V4, OR R < 0.2 mV IN V4] BORDERLINE ECG P-R Interval 184 ms QRS Interval 78 ms QT Interval 365 ms QTC Interval 414 ms P [place] -12 QRS [place] -1 T Wave [place] -1 Narrative Procedure Note Lyndon Villanueva MD - 02/02/2024 IMPRESSION SINUS RHYTHM LOW QRS VOLTAGE IN EXTREMITY LEADS [QRS DEFLECTION < 0.5 mV IN LIMBLEADS] POSSIBLE ANTERIOR MYOCARDIAL INFARCTION , PROBABLY OLD [30 ms Q WAVE INV3/V4, OR R < 0.2 mV IN V4] BORDERLINE ECG P-R Interval 184 ms QRS Interval 78 ms QT Interval 365 ms QTC Interval 414 ms P [place] -12 QRS [place] -1 T Wave [place] -1 Humphrey Rose MD EKG Performing Organization Address [facility] Co de Phone Number [facility]IS EKG ORDERS * ED US ABDOMINAL/GALLBLADDER [...] disease with complication, unspecified gastrointestinal tract location (CMS/HHS) Imaging of gastrointestinal tract abnormal Nonspecific (abnormal) findings on radiological and other examination of gastrointestinal tract Femur fracture, right (CMS) Closed fracture of [...] Line Flush, Per venous access protocol nystatin 195449 unit/g powder Topical, BID, First dose on [...] at 60 mL/hr, Central, CONTINUOUS, Starting on Thu02/28/24 at 1100, Until Discontinued Rate changed 02/28/2024 5:48 PM CDT 60 mL/hr Rate Verify 02/28/2024 3:45 PM CDT 30 mL/hr New Bag 02/28/2024 1:37 PM CDT 30 mL/hr traZODone (DESYREL) tablet 100 mg 100 mg, Oral, BEDTIME PRN, Starting on Thu02/21/24 at 1055, Until Discontinued, sleep Inactive Administered Medications - up to 3 [...] modification) on Thu02/10/24 at 2000, Until Discontinued 075 (Given - Provider: Stacy Laughlin RN)142 (Given - Provider: Stacy Laughlin RN)2045 (Given - Provider: Gaston Buckley RN) 09 (Given - Provider: Stacy Laughlin RN)134 (Given - Provider: Stacy Laughlin RN)2102 (Given - Provider: Marycruz Espinosa RN) 0800 (Due)1400 (Due)1999 (Due) calcium (OS-ALICIA) tablet - elemental 500 mg 500 mg, Oral, BID, First dose on Thu02/09/24 at 2000, Until Discontinued 075 (Given - Provider: Stacy Laughlin RN)2046 (Given - Provider: Gaston Buckley RN) 09 (Given - Provider: Stacy Laughlin RN)2104 (Given - Provider: Marycruz Espinosa RN) 0800 (Due)1999 (Due) carboxymethylcellulose sod PF solution 1 drop 1 drop, eye BOTH, TID, First dose on Thu02/02/24 at 2205, Until Discontinued 075 (Given - Provider: Stacy Laughlin RN)142 (Given - Provider: Stacy Laughlin RN)2047 (Given [...] Hours, Q24H, First dose on Thu02/26/24 at 1999, Until Discontinued 2016 (Hang Lipids - Provider: [...] 09 (Given - Provider: Stacy Laughlin RN) 0800 (Due) GABApentin (NEURONTIN) tablet 600 mg 600 mg, Oral, TID, First dose (after last modification) on Thu02/03/24 at 0800, Until Discontinued 0755 (Given - Provider: Stacy Laughlin RN)1428 (Given - Provider: Stacy Laughlin RN)2047 (Given - Provider: Gaston Buckley RN) 0901 (Given - Provider: Stacy Laughlin RN)1348 (Given - Provider: Stacy Laughlin RN)210 (Given - Provider: Marycruz Espinosa RN) 0800 (Due)1400 (Due)1999 (Due) hydrocerin cream Apply to dry skin., Topical, BID, First dose on Thu02/08/24 at 2000, Until Discontinued 0802 (Given - Provider: Stacy Laughlin RN)204 (Given - Provider: Gaston Buckley RN) 09 [...] right upper arm with PICC placement) nystatin [id number] unit/g powder Topical, BID, First dose on Thu02/03/24 at 1800, Until Discontinued 0802 (Given - Provider: Stacy Laughlin RN)204 (Given - Provider: Gaston Buckley RN) 09 [...] modification) on Thu02/10/24 at 1999, Until Discontinued 0753 (Given - [...] modification) on Thu02/11/24 at 0920, Until Discontinued 0756 (Given - Provider: Stacy Laughlin RN) 09 (Given - Provider: Stacy Laughlin RN) 08 (Due) pramipexole (MIRAPEX) tablet 1 mg 1 mg, Oral, BEDTIME, First dose on Thu02/11/24 at 1999, Until Discontinued 2045 (Given - Provider: Gaston Buckley RN) 2102 (Given - Provider: Marycruz Espinosa RN) 1999 (Due) sennosides (SENOKOT) tablet 8.6 mg 8.6 mg, Oral, BID, First dose on Thu02/10/24 at 1050, Until Discontinued 0755 (Given - Provider: Stacy Laughlin RN)2047 (Given - Provider: Gaston Buckley RN) 0901 (Given - Provider: Stacy Laughlin RN)2103 (Given [...] RN)1999 (Dual Sign-Off - Provider: Gaston Buckley RN)2020 (New Bag - Provider: Gaston Buckley RN) [...] First) 0754 (Given - Provider: Stacy Laughlin RN)2046 (Given - Provider: Gaston Buckley RN) 09 (Given - Provider: Stacy Laughlin RN)2102 (Given - Provider: Marycruz Espinosa RN) traZODone (DESYREL) tablet 100 mg 100 mg, Oral, BEDTIME PRN, Starting on 02/21/24 at 1055, Until Discontinued, sleep documented in this encounter
--- OUTSIDE RECORDS SUMMARY | 2024-02-29 08:04 | XMS_ITS | Encounter Summary ---
Author Organization [facility] Address [address] [place] [address] Phone Care Team Providers Care Fusing Machine Feeder Name Role Phone Unavailable Primary Care Provider Unavailabl e Reason for Visit * Reason Comments Leg Deformity * Auth/Cert (Routine) Specialty Diagnoses / Procedures Referred By Contac t Referred To Contact ORTHOPEDICS Diagnoses Acute cystitis with hematuria Other fracture of right femur, initial encounter for closed fracture (CMS) Humphrey Rose MD [address] [place] [address] Med [facility] In[facility](G3) [address] [facility] [address] [place] [address] Referral ID Status Reason Start Date Expiration Date Visits Re quested Visits Authorized [id number] 1 1 Encounter Details Date Type Department Care Team (Late st Contact Info) Description 02/04/2024 2:00 PM CDT - 02/04/2024 4:57 PM CDT Surgery OR P4 [address] [place] [address] [address] [place] [address] Homa Zarate MD [address] [facility] [address] [place] [address] Not Performed IM KRYSTLE FEMUR [...] distension 02/20/24 CT Abd/Pelvis: Noted ventral hernia. Kurila, Baudilio A, MS, 02/28/2024 10:39 AM Naina Merritt MBBS, 02/28/2024 11:37 AM [facility] Surgery Discharge Milestones (Inpatient Primary [...] POA, Stage 2 - Wound care per [facility] nurse Hypokalemia, intermittent Anemia, stable. - [...] Pertinent labs and imaging personally reviewed in [employer] and applied to medical decision making. Nino Ramírez MD, 02/28/2024 9:42 AM * Raven Ramírez RD, LD - 02/27/2024 3:58 PM CDT Problem: [...] POA, Stage 2 - Wound care per [facility] nurse Hypokalemia, intermittent Anemia, stable. - [...] Pertinent labs and imaging personally reviewed in [facility] and applied to medical decision making. Nino [...] hernia. Naina Merritt MBBS, 02/27/2024 8:42 AM [facility] Surgery Discharge Milestones (Inpatient Primary [...] POA, Stage 2 - Wound care per [facility] nurse Hypokalemia (Resolved) Anemia, stable. - [...] Pertinent labs and imaging personally reviewed in [facility] and applied to medical decision making. Ernestine Toribio MD, 02/26/2024 3:57 PM Hospitalist - Department of Medicine Page via [employer] MDM: The patient's problem complexity is: [x] [...] (reviewing labs/imaging) [x] I talked to a marketing consultant and/or members of the case management [...] If advanced, please add an order for [place] Boost each meal If unable to advance [...] check TG weekly Estimated Nutritional Needs: Calories: 4892-4928 Protein: 75+ grams/day Fluid: per primary team [...] Cathy Raymond - : 1965 - MR# [id number] - Date: 02/26/2024 Reason For Consultation: The patient is being seen in consultation at the request of candy roller for evaluation of skin breakdown to labia. [...] identified. WOCN available Thursday through Thursday on [employer] or [phone] Isidoro Guerrero CWON, 02/26/2024 1:08 PM * Davian Toledo RN - 02/26/2024 12:37 PM CDT 02/26/24 1235 Rapid Rounds Attendance horticulture worker;Bedside nurse;manager of business Patient expects to be discharged to: Accepted to [facility] Today we still await: Clinical stability (Continues [...] RN, 02/25/2024 10:19 PM, clinical instructor for [facility] * Felipe Mercer PTA - 02/25/2024 [...] Participation Significantly Limited?: No Intervention: Positioning;Performed Exercises O:Computer Tech Used: None needed Mental Status Mental Status: [...] STS transfer with no AD, with this racebook writer using bear hug and blocking B [...] seated balance, STS, stand pivot, standing tolerance. MIXING MACHINE TENDER CORK ROD Appropriate: Yes (For EOB activity and standing/transfers, no gait) Felipe Mercer, MIXING MACHINE TENDER CORK ROD 02/25/2024 Pager: [facility] PT Dept Problem: Decreased Transfer Skills Goal: Patient will transfer supine to/from sit Description: Patient will transfer supine to/from sit with (6) Modified [place] in order to safely mobilize OOB by [...] manual wheelchair propulsion >20m with (6) Modified [place] in order to progress toward PLOF by [...] POA, Stage 2 - Wound care per [facility] nurse Hypokalemia (Resolved) Anemia, stable. - [...] Pertinent labs and imaging personally reviewed in [employer] and applied to medical decision making. Ernestine Torbiio MD, 02/25/2024 2:20 PM Hospitalist - Department of Medicine Page via [employer] MDM: The patient's problem complexity is: [x] [...] (reviewing labs/imaging) [x] I talked to a marketing consultant and/or members of the case management and nursing team During this visit, I also did the following adding to morbidity of this patient [] I escalated the level of care [] I held a goals of care discussion [] I prescribed opiates/benzos [x] I continued/started a medication requiring intensive monitoring for toxicity * Eugenia Mead OTR/Bethanie - 02/25/2024 1:45 PM CDT Occupational Therapy [...] care/Home mgmt/ADL: 40 minutes LILY Ling/Bethanie Pager: [employer] OT Department * Courtney Potts LGSW - 02/25/2024 10:53 AM CDT SW spoke to Ashley in Admissions for [facility] to let her know patient is still not medically ready will update her tomorrow at [phone]. * Humphrey Turner MD - 02/25/2024 7:07 AM CDT Orthopaedic Surgery Progress Note 02/25/2024 S: MATT overnight. Pain adequately controlled. Continues to struggle with medical comorbidities. Will ultimately need ANA. O: Vitals: 05/21/24 2257 02/24/24 0738 02/24/24 1510 02/24/24 2337 BP: 90/52 99/61 104/60 Cuff Location: Right Arm Left Arm Left Arm Pulse: 66 70 66 Resp: 18 16 Temp: 36.4 ??C (97.6 ??F) 36.6 ??C [...] (L) 02/25/2024 0622 K 3.1 (L) 02/25/2024 06 CHLORIDE 99 02/25/2024 06 CO2 27 02/25/2024 0622 GLU 77 02/25/2024621 UN 10 02/25/2024621 CR 0.48 (L) 02/25/2024621 CA 7.8 (L) 02/25/2024621 Lab Results Component Value Date/Time PO4 3.5 02/25/2024621 Lab Results Component Value Date/Time MG 2.2 02/23/2024 0846 RADIOLOGY: 02/24/24 Abdominal Xray: Ongoing sigmoid distension, moderately increased from previous abdominal xray 02/20/24 CT Abd/Pelvis: Noted ventral hernia. Baudilio Dawkins, MS, 02/25/2024 8:53 AM [facility] I Cecilio Salazar MD, saw the patient with the medical student and performed, or re- performed, the physical exam and medical decision-making and have verified the accuracy of all the medical student documentation and edited as necessary. Cecilio Salazar MD, 02/25/2024 9:47 AM General Surgery, PGY-5 P: [phone] Surgery Discharge Milestones (Inpatient Primary Team only): [...] POA, Stage 2 - Wound care per [facility] nurse Hypokalemia (Resolved) Anemia, stable. - [...] Pertinent labs and imaging personally reviewed in [employer] and applied to medical decision making. Ernestine Toribio MD, 02/24/2024 5:01 PM Hospitalist - Department of Medicine Page via [employer] MDM: The patient's problem complexity is: [x] [...] (reviewing labs/imaging) [x] I talked to a marketing consultant and/or members of the case management [...] 76 grams protein Estimated Nutritional Needs: Calories: 3340-7406 Protein: 75+ grams/day Fluid: per primary team [...] hernia. Baudilio Dawkins, MS, 02/24/2024 8:56 AM [facility] Surgery Discharge Milestones (Inpatient Primary [...] Participation Significantly Limited?: No Intervention: Positioning;Notified RN O:Computer Tech Used: None needed Mental Status Mental Status: [...] transfer supine to/from sit with (6) Modified [place] in order to safely mobilize OOB by [...] manual wheelchair propulsion >20m with (6) Modified [place] in order to progress toward PLOF by 03/04/24. Outcome: In progress MIXING MACHINE TENDER CORK ROD Appropriate: Yes (For EOB activity and standing/transfers, no gait) Mando Briceno, PT 02/23/2024 Pager: [employer] PT Dept * Eugenia Mead OTR/L - 02/23/2024 3:49 PM CDT Occupational Therapy [...] care/Home mgmt/ADL: 30 minutes LILY Ling/Bethanie Pager: [employer] OT Department * Jonnie Matta MD - [...] MG 2.2 02/23/2024 0846 RADIOLOGY: Reviewed. Baudilio Dawkins MS, 02/23/2024 1:43 PM [facility] RESIDENT WITH STUDENT: I saw [...] foot wound culture growing MSSA as well. 5/2 blood culture with no growth to date. -ID consulted, appreciate assistance - Completed course of cefazolin to cover MSSA and urine E. Coli.Total course 02/01-02/14, 2 weeks Urinary retention Patient noted to be retaining urine, requiring straight catheterization. Cano replaced on 02/07. - Follow up with Urology Sacral ulcer, POA, Stage 2 - Wound care per [facility] nurse Hypokalemia (Resolved) Anemia, stable. - [...] Pertinent labs and imaging personally reviewed in [employer] and applied to medical decision making. Ernestine Toribio MD, 02/23/2024 1:33 PM Hospitalist - Department of Medicine Page via [employer] MDM: The patient's problem complexity is: [x] [...] (reviewing labs/imaging) [x] I talked to a marketing consultant and/or members of the case management [...] Participation Significantly Limited?: No Intervention: Positioning;Notified RN O:Computer Tech Used: None needed Mental Status Mental Status: Alert;Cooperative Follows Directions: Consistently follows commands Restrictions/Precautions Weight Bearing Restrictions: NWZENOBIA CARDENAS to weight bear for transfers Complies w/ [...] transfer supine to/from sit with (6) Modified [place] in order to safely mobilize OOB by [...] manual wheelchair propulsion >20m with (6) Modified [place] in order to progress toward PLOF by 03/04/24. Outcome: In progress MIXING MACHINE TENDER CORK ROD Appropriate: Yes (For EOB activity and standing/transfers with Stacy Chely, no gait) Mando Briceno, PT 02/22/2024 Pager: [facility] PT Dept * Eugenia Mead OTR/L - [...] care/Home mgmt/ADL: 40 minutes LILY Ling/Bethanie Pager: [employer] OT Department * Courtney Potts LGSW - 02/22/2024 2:34 PM CDT GINNY spoke to Ashley for admissions at [facility] [phone] can take the patient on Thursday. Please [...] POA, Stage 2 - Wound care per [facility] nurse Hypokalemia (Resolved) Anemia, stable. - [...] Pertinent labs and imaging personally reviewed in [employer] and applied to medical decision making. Francy Mc MD, 02/22/2024 11:31 AM Hospitalist - Department of Medicine Page via [employer] * Chalo Shrestha MD - 02/22/2024 10:56 [...] will continue to follow; please page the [facility] surgery team pager with any questions or [...] Reviewed. Naina Merritt MBBS, 02/22/2024 10:56 AM [facility], PGY-1 Surgery Discharge Milestones (Inpatient [...] diet as able Estimated Nutritional Needs: Calories: 2177-7444 Protein: 75+ grams/day Fluid: per primary team [...] BMI: Body mass index is 32.99 kg/m??. [place] body weight: 63.6 kg Weight hx: 87 [...] Pertinent labs and imaging personally reviewed in [facility] and applied to medical decision making. Francy Mc MD, 02/21/2024 10:31 AM Hospitalist - Department of Medicine Page via [employer] * Naina Merritt MBBS - 02/21/2024 9:29 [...] Reviewed. Naina Merritt MBBS, 02/21/2024 9:45 AM [facility], PGY-1 Surgery Discharge Milestones (Inpatient [...] POA, Stage 2 - Wound care per [facility] nurse Hypokalemia (Resolved) Anemia, stable. - [...] Pertinent labs and imaging personally reviewed in [facility] and applied to medical decision making. Francy Mc MD, 02/20/2024 4:07 PM Hospitalist - Department of Medicine Page via [employer] * Francy Mc MD - 02/19/2024 6:28 [...] POA, Stage 2 - Wound care per [facility] nurse Hypokalemia (Resolved) Anemia, stable. - [...] Pertinent labs and imaging personally reviewed in [facility] and applied to medical decision making. Francy Mc MD, 02/19/2024 6:28 PM Hospitalist - Department of Medicine Page via [employer] * Courtney Potts LGSW - 02/19/2024 2:36 PM CDT SW spoke with patient yesterday about placement at [facility]. Patient was agreeable to placement there. [...] given regarding post-care. * Mindy Swan APRN, SECURITIES SALES ASSOCIATE - 02/18/2024 12:49 PM CDT Palliative Care [...] with questions or concerns. Mindy Swan, DARIO, SECURITIES SALES ASSOCIATE, 02/18/2024 12:49 PM Palliative Medicine Available [employer] Advance Care Planning Primary Care: No primary [...] their hobbies, activities and interests, spirituality or uatsdin, personal experience with end of life, and personal hopes, worries. Thisbackground is essential in understanding what is most important and how that can change throughout the course of a serious illness. This summary is an attempt to highlight that background. Social History Social History Narrative Tiny is to her , Jai. She has one daughter and two grandchildren. She is Oriental Orthodox. When feeling well she likes to have [...] POA, Stage 2 - Wound care per [facility] nurse Hypokalemia (Resolved) Anemia, stable. - [...] Pertinent labs and imaging personally reviewed in [employer] and applied to medical decision making. Francy Mc MD, 02/18/2024 11:34 AM Hospitalist - Department of Medicine Page via [employer] * Rose Marie Leigh MD - 02/18/2024 4:43 AM CDT Orthopaedic Surgery Progress Note 02/18/2024 S: Continued issues with colonic distension. NAEO. AFVSS. Nursing notes reviewed. Patient sleeping comfortably. PT recommending dc to [facility], max assist for most transfers. O: BP [...] Component Value Ref Range Date/Time URINE CULTURE [[id number]] Collected: 02/02/241702 Specimen: Urine Updated: 02/02/242204 BODY FLUID CULTURE:INCLUDES GRAM STAIN [[id number]] Collected: 02/02/241950 Specimen: Peritoneal Fluid from Peritoneum [...] 4 weeks with 2V XR R tatiana Esipnoza MD Orthopaedic Surgery, PGY-3 Orthopedic Staff Note: [...] transfer supine to/from sit with (6) Modified [place] in order to safely mobilize OOB by [...] manual wheelchair propulsion >20m with (6) Modified [place] in order to progress toward PLOF by 02/19/24. Outcome: In progress MIXING MACHINE TENDER CORK ROD Appropriate: No (has not stood) Mando Briceno, PT 02/17/2024 Pager: [facility] PT Dept * Francy Mc MD - [...] Female at 02/17/2024 7:19 AM - Continue MIXING MACHINE TENDER CORK ROD dose of Furosemide and Spironolactone (increased today) Urinary retention Patient noted to be retaining urine, requiring straight catheterization. Cano replaced on 02/07. - Follow up with Urology vs TOV here Sacral ulcer, POA, Stage 2 - Wound care per [facility] nurse Hypokalemia (Resolved) Anemia, stable. - [...] Pertinent labs and imaging personally reviewed in [facility] and applied to medical decision making. Francy Mc MD, 02/17/2024 2:56 PM Hospitalist - Department of Medicine Page via [employer] * Mando Briceno, PT - 02/16/2024 2:18 [...] 8:12 AM - Continue decreased doses of MIXING MACHINE TENDER CORK ROD Furosemide and Spironolactone Urinary retention Patient noted [...] Pertinent labs and imaging personally reviewed in [facility] and applied to medical decision making. Francy Mc MD, 02/16/2024 9:50 AM Hospitalist - Department of Medicine Page via [employer] * Ernestine Toribio MD - 02/15/2024 5:16 [...] species not anthracis, no gpcs or MSSA. / blood culture with no growth to date. [...] 6:48 AM - Continue decreased doses of MIXING MACHINE TENDER CORK ROD Furosemide and Spironolactone Urinary retention Patient noted [...] Pertinent labs and imaging personally reviewed in [employer] and applied to medical decision making. Ernestine Toribio MD, 02/15/2024 5:16 PM Hospitalist - Department of Medicine Page via [employer] MDM: The patient's problem complexity is: [x] [...] (reviewing labs/imaging) [x] I talked to a marketing consultant and/or members of the case management [...] transfer supine to/from sit with (6) Modified [place] in order to safely mobilize OOB by [...] manual wheelchair propulsion >20m with (6) Modified [place] in order to progress toward PLOF by 02/19/24. Outcome: In progress MIXING MACHINE TENDER CORK ROD Appropriate: No (has not stood) Mando Briceno, [...] of care: Plan For Next OT Session: --stacylarry mo Total treatment time: 35 minutes OT interventions and time spent on each: Self care/Home mgmt/ADL: 35 minutes LILY Ling/Bethanie Pager: [employer] OT Department * Ernestine Toribio MD - [...] 8:18 AM - Continue decreased doses of MIXING MACHINE TENDER CORK ROD Furosemide and Spironolactone Urinary retention Patient noted [...] Pertinent labs and imaging personally reviewed in [facility] and applied to medical decision making. Ernestine Toribio MD, 02/14/2024 3:56 PM Hospitalist - Department of Medicine Page via [employer] MDM: The patient's problem complexity is: [x] [...] (reviewing labs/imaging) [x] I talked to a marketing consultant and/or members of the case management [...] 9:06 AM - Continue decreased doses of MIXING MACHINE TENDER CORK ROD Furosemide and Spironolactone Urinary retention Patient noted [...] Pertinent labs and imaging personally reviewed in [employer] and applied to medical decision making. Ernestine Toribio MD, 02/13/2024 1:29 PM Hospitalist - Department of Medicine Page via [employer] MDM: The patient's problem complexity is: [x] [...] (reviewing labs/imaging) [x] I talked to a marketing consultant and/or members of the case management [...] 8:50 AM - Continue decreased doses of MIXING MACHINE TENDER CORK ROD Furosemide and Spironolactone Urinary retention Patient noted [...] Intake/Output Summary (Last 24 hours) at 02/12/2024 1248 Last data filed at 02/12/2024 0631 Gross [...] Pertinent labs and imaging personally reviewed in [facility] and applied to medical decision making. Ernestine Toribio MD, 02/12/2024 12:47 PM Hospitalist - Department of Medicine Page via [employer] MDM: The patient's problem complexity is: [x] [...] (reviewing labs/imaging) [x] I talked to a marketing consultant and/or members of the case management [...] Selected Services Address Phone Fax Patient Preferred [facility] Pending - Request Sent N/A [address] [facility] [address] -- Internal Comment last updated by Eden Keane 02/12/2024 1106 LVM for admissions Eden Keane, 02/12/2024 11:06 AM [facility] Pending - Request Sent N/A [address] [facility] [address] [phone] -- Internal Comment last updated by Eden Keane 02/12/2024 1108 LVM for admissions.Eden Keane, 02/12/2024 11:08 AM Lm with admissions to call back [facility] Declined N/A [address] [facility] [address] -- Internal Comment last updated by Courtney Potts LGSW 02/08/[address] closed a year ago [facility] Declined Bed not available N/A [address] [place] [address] [phone] -- [facility] Declined Bed not available N/A [address] [facility] [address] [phone] -- Internal Comment last updated by Eden [...] transfer supine to/from sit with (6) Modified [place] in order to safely mobilize OOB by [...] manual wheelchair propulsion >20m with (6) Modified [place] in order to progress toward PLOF by 02/19/24. Outcome: In progress P: PT 2-4 x week for duration of hospital stay or until goals achieved, for bed mobility, transfersand stand pivot to chair. Next visit sit edge of bed, attempt to stand or mechanical lift to chair MIXING MACHINE TENDER CORK ROD Appropriate: No (has not stood) Saranya Parker PT 02/12/2024 Pager: [facility] PT Dept * [...] care/Home mgmt/ADL: 40 minutes LILY Ling/Bethanie Pager: [employer] OT Department * Barbara Blevins PA-C - 02/12/2024 9:01 AM CDT Images from the original note were not included. GASTROENTEROLOGY PROGRESS NOTE - NEHA Cathy Raymond : 1965 Sex: female IMPRESSION AND RECOMMENDATIONS: aCthy Raymond is a 58yo female with history of decompensated alcohol related cirrhosis, polyneuropathy, T2DM, MAX, gastric bypass 2002 with history of marginal ulcer, osteoporosis admitted 02/02/24after fall. FTH left femur fracture and distended sigmoid colon on CT prompting GI consult. Distension felt to be chronic based on previous imaging dating back to 2016. Recommended daily bowel regimen and signed off. [...] service including pre-visit review of separatelyobtained history, [id number] interaction performing medically appropriate physical exam, patient [...] 7:25 AM - Continue decreased doses of MIXING MACHINE TENDER CORK ROD Furosemide and Spironolactone Urinary retention Patient noted [...] Pertinent labs and imaging personally reviewed in [employer] and applied to medical decision making. Ernestine Toriboi MD, 02/11/2024 3:19 PM Hospitalist - Department of Medicine Page via [employer] MDM: The patient's problem complexity is: [x] [...] (reviewing labs/imaging) [x] I talked to a marketing consultant and/or members of the case management [...] for PT today, on her way to [place]. Will see tomorrow as able Saranya Parker, PT Pager:[employer] License Number [id number] 02/11/2024 * Eugenia Mead OTR/Bethanie - 02/11/2024 2:38 PM CDT Occupational Therapy Note: Arrived for OT session however pt being transported to CT, pt reports feeling awful today. OT will follow up at a later date. Eugenia Mead OTR/Bethanie, 02/11/2024 2:39 PM * Mindy Swan APRN, SECURITIES SALES ASSOCIATE - 02/11/2024 11:12 AM CDT Palliative Care [...] with questions or concerns. Mindy Swan, DARIO, SECURITIES SALES ASSOCIATE, 02/11/2024 11:22 AM Palliative Medicine Available [employer] Advance Care Planning Primary Care: No primary [...] their hobbies, activities and interests, spirituality or uatsdin, personal experience with end of life, and personal hopes, worries. Thisbackground is essential in understanding what is most important and how that can change throughout the course of a serious illness. This summary is an attempt to highlight that background. Social History Social History Narrative Tiny is to her , Jai. She has one daughter and two grandchildren. She is Oriental Orthodox. When feeling well she likes to have [...] CDT Orthopaedic Surgery Progress Note 02/11/2024 S: NAEO. LANIER. Nursing notes reviewed. Patient sleeping comfortably. Patient's [...] Component Value Ref Range Date/Time URINE CULTURE [[id number]] Collected: 02/02/24 170 Specimen: Urine Updated: 02/02/242204 BODY FLUID CULTURE:INCLUDES GRAM STAIN [[id number]] Collected: 02/02/241950 Specimen: Peritoneal Fluid from Peritoneum [...] transfer supine to/from sit with (6) Modified [place] in order to safely mobilize OOB by [...] manual wheelchair propulsion >20m with (6) Modified [place] in order to progress toward PLOF by 02/19/24. Outcome: In progress MIXING MACHINE TENDER CORK ROD Appropriate: No (needs mobility progressed) Mando Briceno, [...] Pertinent labs and imaging personally reviewed in [facility] and applied to medical decision making. Ernestine Toribio MD, 02/10/2024 2:50 PM Hospitalist - Department of Medicine Page via [employer] MDM: The patient's problem complexity is: [x] [...] (reviewing labs/imaging) [x] I talked to a marketing consultant and/or members of the case management [...] care/Home mgmt/ADL: 25 minutes LILY Ling/Bethanie Pager: [employer] OT Department * Yuni Feranndez - 02/10/2024 1:52 PM CDT Clinical Coordination [...] CDT Orthopaedic Surgery Progress Note 02/10/2024 S: DESIRE. ZORAIDAVSS. Nursing notes reviewed. Patient sleeping comfortably. O: [...] Component Value Ref Range Date/Time URINE CULTURE [[id number]] Collected: 02/02/241702 Specimen: Urine Updated: 02/02/242204 BODY FLUID CULTURE:INCLUDES GRAM STAIN [[id number]] Collected: 02/02/241950 Specimen: Peritoneal Fluid from Peritoneum [...] transfer supine to/from sit with (6) Modified [place] in order to safely mobilize OOB by [...] manual wheelchair propulsion >20m with (6) Modified [place] in order to progress toward PLOF by 02/19/24. Outcome: In progress MIXING MACHINE TENDER CORK ROD Appropriate: No (needs mobility progressed) Mando Briceno, PT 02/09/2024 Pager: [employer] PT Dept * Eugenia Mead OTR/Bethanie - [...] care/Home mgmt/ADL: 45 minutes AUDIE Ling Pager: [facility] OT Department * Ernestine Toribio MD - [...] Pertinent labs and imaging personally reviewed in [facility] and applied to medical decision making. Ernestine Toribio MD, 02/09/2024 8:08 AM Hospitalist - Department of Medicine Page via [employer] MDM: The patient's problem complexity is: [x] [...] (reviewing labs/imaging) [x] I talked to a marketing consultant and/or members of the case management [...] 5.51 02/05/2024 0915 HGB 9.5 (L) 02/07/2024 06 HGB 8.8 (L) 02/06/2024 0710 PLT 149 (L) 02/07/2024 0605 PLT 164 02/05/2024 0915 CR 0.59 02/08/2024 0819 CR 0.58 02/07/2024 0605 Lab Results (Last 120 hours) Procedure Component Value Ref Range Date/Time URINE CULTURE [[id number]] Collected: 02/02/241702 Specimen: Urine Updated: 02/02/242204 BODY FLUID CULTURE:INCLUDES GRAM STAIN [[id number]] Collected: 02/02/241950 Specimen: Peritoneal Fluid from Peritoneum [...] Constipation # Insomnia # GERD - Continue MIXING MACHINE TENDER CORK ROD cetirizine, citalopram, gabapentin, levothyroxine, pantoprazole, PEG/senna, trazodone [...] Female at 02/08/2024 8:19 AM Charge Capture Sheepskin Pickler * Mando Briceno, PT - 02/08/2024 12:10 PM CDT Chart reviewed for PT follow-up session this AM, session attempted - unable to see as patient at procedure, will reattempt later this date vs tomorrow as time allows. Mando Briceno, PT, 02/08/2024 12:10 PM * Jesse Pineda RN - 02/08/2024 11:46 AM CDT TRANSFER NOTE Report called to nurse, of Cathy Raymond at [facility] Patient transported back to [facility] via Bed, Accompanied by Transporter, Patient's condition [...] Component Value Ref Range Date/Time URINE CULTURE [[id number]] Collected: 02/02/241702 Specimen: Urine Updated: 02/02/242204 BODY FLUID CULTURE:INCLUDES GRAM STAIN [[id number]] Collected: 02/02/241950 Specimen: Peritoneal Fluid from Peritoneum [...] Constipation # Insomnia # GERD - Continue MIXING MACHINE TENDER CORK ROD cetirizine, citalopram, gabapentin, levothyroxine, pantoprazole, PEG/senna, trazodone [...] Female at 02/07/2024 6:05 AM Charge Capture Sheepskin Pickler * Dayo Henning MD - 02/07/2024 7:58 [...] Component Value Ref Range Date/Time URINE CULTURE [[id number]] Collected: 02/02/241702 Specimen: Urine Updated: 02/02/242204 BODY FLUID CULTURE:INCLUDES GRAM STAIN [[id number]] Collected: 02/02/241950 Specimen: Peritoneal Fluid from Peritoneum [...] Constipation # Insomnia # GERD - Continue MIXING MACHINE TENDER CORK ROD cetirizine, citalopram, gabapentin, levothyroxine, pantoprazole, PEG/senna, trazodone [...] Female at 02/06/2024 7:10 AM Charge Capture Sheepskin Pickler * Cely Buck DPM - 02/06/2024 8:46 [...] patient's care at this time. Please page care professionals resident with questions. INTERVAL ILLNESS: Patient seen [...] Component Value Ref Range Date/Time URINE CULTURE [[id number]] Collected: 02/02/241702 Specimen: Urine Updated: 02/02/242204 BODY FLUID CULTURE:INCLUDES GRAM STAIN [[id number]] Collected: 02/02/241950 Specimen: Peritoneal Fluid from Peritoneum [...] Constipation # Insomnia # GERD - Continue MIXING MACHINE TENDER CORK ROD cetirizine, citalopram, gabapentin, levothyroxine, pantoprazole, PEG/senna, trazodone [...] Female at 02/05/2024 9:15 AM Charge Capture Sheepskin Pickler * Gladys Samuels DPM - 02/05/2024 7:46 [...] continue to follow while inpatient. Please page care professionals resident with questions. Patient was discussed with care professionals staff, Dr. Samuels CHIEF COMPLAINT: Right foot [...] right femur, initial encounter for closed fracture ([facility]) 02/02/2024 CURRENT HEALTH STATUS Medications: Current Facility-Administered Medications Medication Route Frequency clotrimazole (LOTRIMIN) 1% cream Topical bid bisacodyl (DULCOLAX) suppository 10 mg Rectal daily nystatin 005293 unit/g powder Topical bid citalopram (CeleXA) tablet [...] one daughter and two grandchildren. She is Oriental Orthodox. When feeling well she likes to have [...] Component Value Ref Range Date/Time URINE CULTURE [[id number]] Collected: 02/02/241702 Specimen: Urine Updated: 02/02/242204 BODY FLUID CULTURE:INCLUDES GRAM STAIN [[id number]] Collected: 02/02/241950 Specimen: Peritoneal Fluid from Peritoneum [...] Constipation # Insomnia # GERD - Continue MIXING MACHINE TENDER CORK ROD cetirizine, citalopram, gabapentin, levothyroxine, pantoprazole, PEG/senna, trazodone [...] Female at 02/04/2024 6:40 AM Charge Capture Sheepskin Pickler * Macy Paul MD - 02/04/2024 7:31 [...] indicated at this time. We recommend continuing [id number]-[id number] discussions with her primary team and palliative care, however, as she remains high risk for future surgeries given her medical co-morbidities. Surgery will sign-off at this time; please page the [place] surgery team pager via [employer] with any future questions or concerns. PHYSICAL [...] 36 02/03/2024 0803 BILIDIR 0.5 (H) 02/03/2024 08 TBILI 0.9 02/03/2024 0803 TPRO 5.5 (L) 02/03/2024 0803 Coagulation Lab Results Component Value Date/Time PT 19.8 (H) 02/03/2024 0803 INR 1.8 (H) 02/03/2024 08 APTT 33.0 02/02/2024 1600 RADIOLOGY: CT CAP [...] 02/04/2024 7:31 AM General Surgery Resident PGY1, [place] [facility] Service Surgery Discharge Milestones (Inpatient Primary Team only): Associated attestation - Mioses Montana MD - 02/09/2024 3:39 PM CDT FACULTY NOTE I saw and evaluated the patient on the date of the racebook writer's note. I discussed with the racebook writer of the note and agree with their findings and plan documented in the racebook writer's note from above. Any revisions by [...] Component Value Ref Range Date/Time URINE CULTURE [[id number]] Collected: 02/02/241702 Specimen: Urine Updated: 02/02/242204 BODY FLUID CULTURE:INCLUDES GRAM STAIN [[id number]] Collected: 02/02/241950 Specimen: Peritoneal Fluid from Peritoneum [...] new results of positive blood cx from [place] as well as one from [facility]. They arereportedly two different classes of bacteria and she has been on IV ceftriaxone since admisison, tianalear if relevant or true positives. Given tenuous [...] DC per protocol. * Carter Maurer APRN, SECURITIES SALES ASSOCIATE - 02/03/2024 12:20 PM CDT SURGERY PROGRESS NOTE--BALL WINDER Cathy Raymond : 1965 Sex: female SIGNIFICANT [...] Recs Disposition: TBD -Per primary team Carter Maurer, DARIO, RALPH, 02/03/2024 12:21 PM [facility] Department of Surgery Pager: via tele[employer]q I have spent 30 minutes with this patient today in which greater than 50% of this time was spent incounseling/coordination of care regarding in patient care, review of imaging/labs, chart review andconsultant recommendations. Dictation Disclaimer: Some notes are completed with voice-recognition dictation software. Errors are generally corrected in real time. Please contact me via [employer] staff message if you note any errors requiring clarification. Associated attestation - Moises Montana MD - 02/09/2024 3:39 PM CDT FACULTY NOTE I saw and evaluated the patient on the date of the racebook writer's note. I discussed with the racebook writer of the note and agree with their findings and plan documented in the racebook writer's note from above. Any revisions by me are documented. Moises Montana MD, 02/09/2024 3:39 PM * Sara Hdez RN - 02/03/2024 12:09 PM CDTSummary: Discharge planning Care Coordination Assessment Patient Name: Cathy Raymond Date: 02/03/2024 Expected DC Date: 02/06/2024 Social Information Computer Tech Used: None needed Decision Maker at Admission: Self Living Situation: Home Patient Identified Support System: Services Receiving: DIRECTOR ENTERPRISE SALES / Skilled Services ([facility] care for OT, PT, RN) Complex Medical Needs: None Transportation Used for Discharge: stretcher Safety Concerns: None Behavioral Health Concerns: None Patient Family Goals Patient's Discharge Goal: agreeable to consider TCU in [place] Family's Discharge Goal: n/a Plan/Interventions Discharge Plan: SNF Was Patient Choice Provided?: Yes Who was Choice Provided to?: Patient Patient Information Verification Verified demographic information, including SSN, Next of Kin, and Guardianship: Yes Verified PCP: Yes If post-acute placement is needed, have vaccination status needs been addressed?: Not applicable Risks for Readmission: None Summary of pertinent information: Patient admitted in transfer from [facility] with concern for left femur fracture from a fall and sigmoid volvulus. She continues to await medical clearancefor surgery. Had patient sign FRED to get imaging pushed from both [place] and [facility]. Sent FRED to both places, anticipate that imaging should be available soon. Anticipate that she will require TCU placement. She prefers [place] and has been at facilities there previously. Currently open to home care through [facility]. Will continue to follow. Sara Hdez [...] Constipation # Insomnia # GERD - Continue MIXING MACHINE TENDER CORK ROD cetirizine, citalopram, gabapentin, levothyroxine, pantoprazole, PEG/senna, trazodone - HOLD oxybutynin - Check Hb A1c Subjective/Events of Past 24 Hours: Hospital Day: 1 Reports fine No nausea or vomiting No abdominal pain Objective: Physical Exam GEN: NAD, laying in bed RES: clear lungs, on wheezing, rales or rhonchi CV: r/r/r, no murmurs, rubs or gallops ABD: distended Labs reviewed Charge Capture Sheepskin Pickler * Giselle Johansen MD - 02/03/2024 4:42 [...] Component Value Ref Range Date/Time URINE CULTURE [[id number]] Collected: 02/02/24 1703 Specimen: Urine Updated: 02/02/242204 BODY FLUID CULTURE:INCLUDES GRAM STAIN [[id number]] Collected: 02/02/241950 Specimen: Peritoneal Fluid from Peritoneum [...] Constipation # Insomnia # GERD - Continue MIXING MACHINE TENDER CORK ROD cetirizine, citalopram, gabapentin, levothyroxine, pantoprazole, PEG/senna, trazodone [...] (A) NEGATIVE Ketones TRACE (A) NEGATIVE Specific [place] 1.024 1.003 - 1.030 Blood Ur LARGE (A) Neg-Trace PH Urine 6.0 5.0 - 7.0 Protein Ur 30 (A) Neg-Trace Urobilinogen >=8 (A) NORMAL EU/dL Nitrite Ur NEGATIVE NEGATIVE Leuk Est SMALL (A) Neg-Trace WBC Ur 6-10 (A) 0 - 5 perHPF RBC Ur >20 (A) 0 - 3 perHPF SQ EPITH 0-5 0 - 5 perHPF Bacteria UA PRESENT Urinalysis Performed at: [facility] BODY FLUID CELL COUNT/DIFF Result Value Ref [...] Dumont RN Authorized by: Nino Ramírez MD [place] Protocol: Verbal consent obtained?: Yes Written consent [...] total length, 2 cm out secured with [id number]; AC to IS: 5 cm; Circumference 10 cm above AC: 24 cm) Catheter biotechnician: Lot Number: [id number] Pre-procedure: landmarks identified Ultrasound guidance: Yes Number [...] to verify the correct patient, procedure, equipment, is support analyst and site/side marked as required. Initial or [...] to verify the correct patient, procedure, equipment, is support analyst and site/side marked as required. Initial or [...] to verify the correct patient, procedure, equipment, is support analyst and site/side marked as required. Initial or [...] and cytology examination : No Patient to [facility] for post-procedure monitoring. Patient education sheets given regarding post-care. * Humphrey Rose MD - 02/02/2024 10:03 PM CDTAssociated Order(s): Paracentesis Paracentesis Performed by: Cooper Loaiza MD Authorized by: Humphrey Rose MD Consent: Consent obtained: Verbal Consent given by: Patient Risks discussed: Bleeding, bowel perforation and infection Alternatives discussed: No treatment [place] protocol: Patient identity confirmed: Verbally with patient [...] Analgesia without sedation, anxiolysis and regional anesthesia [place] protocol: Procedure explained and questions answered to [...] vital sign checks, continuous pulse oximetry and welder and fitter Intra-procedure events: respiratory depression Intra-procedure management: Airway [...] 02/20/2024 6:27 PM General Surgery, PGY-2 Pager: [phone] or [employer] Chief Complaint: Abdominal pain/distention History of Present [...] one daughter and two grandchildren. She is Oriental Orthodox. When feeling well she likes to have [...] CR 0.61 02/20/2024 0744 CA 8.0 (L) 02/20/2024 07 CBC Lab Results Component Value Date/Time WBC 3.10 (L) 02/20/2024 0744 RBC 2.63 (L) 02/20/2024 0744 HGB 8.7 [...] BMI: Body mass index is 32.99 kg/m??. [place] body weight: 63.6 kg Weight hx: 93 [...] Manning Segundo - : 1965 - MR# [id number] - Date: 02/18/2024 Reason For Consultation: The [...] identified. WOCN available Thursday through Thursday on [employer] or [phone] Cristela Gleason CWOCN, 02/18/2024 2:04 PM * Isidoro Guerrero CWON - 02/09/2024 2:42 PM CDT Images from the original note were not included. Wound Ostomy Continence Nurse Consult Cathy Raymond - : 1965 - MR# [id number] - Date: 02/09/2024 Reason For Consultation: The patient is being seen in consultation at the request of candy roller for evaluation of ulceration to gluteal cleft. [...] identified. WOCN available Thursday through Thursday on [employer] or [phone] Isidoro Guerrero CWON, 02/09/2024 2:43 PM * [...] seat;tub / shower chair;hand held shower head;grab bars;head start director Prior Level of Function: ADLs/IADLs: Received assistance from family / friends;Received assistance from DIRECTOR ENTERPRISE SALES for hours per day / days per [...] to a TCU near her home in [place] when medically stable. (See box at the [...] Eval: 29 minutes Therapist: LILY Landaverde/Bethanie Pager: [employer] Occupational Therapy Department * Rose Marie Early, [...] riser, and son lift Services at home: DIRECTOR ENTER[employer] SAL[employer] services MWF, home PT / OT / [...] reportedly Alycia with stand pivot transfers to [facility] (GLF during tx resulted in femur fx), has 24/7 assist from , [employer]TER[employer] services 3x/wk, and home PT / OT [...] viasara steady, up to chair as appropriate. MIXING MACHINE TENDER CORK ROD Appropriate: No (needs mobility progressed) Participated in goal setting and treatment planning: Patient Agrees with goals and treatment plan: Patient - Yes. Rose Marie Early, PT 02/06/2024 Pager: [employer] [facility] PT Department * Dominic Castorena MD - [...] set of blood cultures were taken at [facility] in which 2 of 2 bottles grew [...] 02/04/2024 0640 CR 0.70 02/03/2024 0803 Microbiology: [facility] Blood Culture, 02/01 - MSSA, healy susceptible [...] the original note were not included. Data: [facility] nurse met with patient to assess [...] over the next few days. Please page care professionals resident with questions. Patient was seen with care professionals staff, Dr. Roth PROCEDURE: Risks and benefits [...] States that she follows up with a sawmill relief worker in [place] and has had extensive surgery of the [...] CWOCN - 02/04/2024 3:36 PM CDT DAP: [facility] nursing attempted to see patient x 2 today, however patient was out of the room x2. Will re-attempt at a later date. Cristela Gleason CWOCN, 02/04/2024 3:36 PM * Mindy Swan APRN, SECURITIES SALES ASSOCIATE - 02/03/2024 3:00 PM CDTAssociated Order(s): CONSULT [...] helps her at home along with a DIRECTOR ENTER[employer]ISE SALES. States that she broke her other femur [...] their hobbies, activities and interests, spirituality or uatsdin, personal experience with end of life, and personal hopes, worries. Thisbackground is essential in understanding what is most important and how that can change throughout the course of a serious illness. This summary is an attempt to highlight that background. Social History Social History Narrative Tiny is to her , Jai. She has one daughter and two grandchildren. She is Oriental Orthodox. When feeling well she likes to have [...] specifically on review of CT scans from [facility] dated 07/08/2022 and [place] dated111/21/2020, it appears patient has had a chronically dilated sigmoid colon, possibly dating back [id number]. Also has known chronic constipation and neuropathy [...] c/b ascites MELD 3.0 16 Established at [facility] Gastroenterology, last seen 12/15/2013. Etiology felt [...] cirrhosis. 09/20/2021 CT CAP with IV contrast ([place]): IMPRESSION: 1. Minimally more prominent left axillary [...] AND RADIOLOGY DATA: Lab results: Reviewed via Epic. Radiology Results: Reviewed in Epic. Patient seen by and discussed with Surgery Chief Resident and Staff Physician. Nestor Miranda MD, 02/03/2024 3:47 AM Associated attestation - Moises Montana MD - 02/09/2024 3:34 PM CDT FACULTY NOTE I saw and evaluated the patient on the date of the racebook writer's note. I discussed with the racebook writer of the note and agree with their findings and plan documented in the racebook writer's note from above. Any revisions by [...] acholic cirrhosis, R TKA around 2017 in [place], [place],L femur fx s/p surgical fixation ~ 2019 at [facility], idiopathic progressive neuropathy, hypothyroidism,chronic neuropathic pain, DMII [...] - disability Lives with in house in [place], [place] ALLERGIES: Allergies Allergen Reactions Amoxicillin-Pot Clavulanate [...] Henning MD - 02/05/2024 4:06 PM CDT [facility] [id number] [facility] OPERATIVE REPORT PATIENT: Cathy Raymond : 1965 DATE OF PROCEDURE: 02/05/24 SURGEON: Dayo Henning MD - Primary HEAD CD REACTOR OPERATOR SURGEON: Serge Parker DO - Fellow Ian [...] Implant Name Type Inv. Item Serial No. Stone Paver Lot No. LRB No. Used Action FEMORAL NAIL RETROGRADE [id number] Krystle FEMORAL NAIL RETROGRADE [id number] [employer] [id number] Right 1 Implanted 5.0X60MM 2361-5060S Screw/[place] 5.0X60MM 2361-5060S [employer] [id number] Right 1 Implanted 5.0X70MM 2361-5070S Screw/[place] 5.0X70MM 2361-5070S [employer] [id number] Right 1 Implanted 5.0X75MM ADV 2361-5075S Screw/[place] 5.0X75MM ADV 2361-5075S [employer] [id number] Right 1 Implanted FREEHAND DRILL [id number] Drill bit/kiara FREEHAND DRILL [id number] [employer] [id number] Right1 Implanted 5.0X42.5MM 2360-5042S Screw/[place] 5.0X42.5MM 2360-5042S [employer] [id number] Right 1 Implanted INDICATIONS: Cathy Raymond is a 58 y.o. female who presented to [facility] with right leg pain after a fall. [...] proximal thigh. This was performed using perfect ottawa technique. A stab incision was made over [...] primary nurse, Catarino. * Ileana Howell APRN, SECURITIES SALES ASSOCIATE - 02/02/2024 9:19 PM CDT Transfer of [...] T2DM, HTN who presents as transfer from [facility] for RIGHT midshaft femur fracture after mechanical [...] Wt 98.8 kg (217 lb 13 oz) [id number] Upon assuming care, I reviewed the chart, [...] NEGATIVE Bili UA TRACE(!) Ketones TRACE(!) Specific [place] 1.024 Blood Ur LARGE(!) PH Urine 6.0 Protein Ur 30(!) Urobilinogen >=8(!) Nitrite Ur NEGATIVE Leuk Est SMALL(!) WBC Ur 6-10(!) RBC Ur >20(!) SQ EPITH 0-5 Bacteria UA PRESENT Urinalysis Performed at: [facility] Receiving CTX 2122 LFTs(!): Total Protein 5.8(!) [...] in real time. Please contact me via [employer] staff message if you note any errors requiring clarification. * Natacha Mcadams RN - 02/02/2024 9:16 PM CDT Traction set to 20 pounds. * Natacha Mcadams RN - 02/02/2024 9:00 PM CDT Xray at bedside * Natacha Mcadams RN - 02/02/2024 8:41 PM CDT Patient transported to [facility] for sedation for krystle placement and traction. * Enedina Austin MD - 02/02/2024 6:08 PM CDT Parts Salesperson of the Day (MOD) Triage/Communication Note Sign out received from Cooper in [facility] (team center/clinic). Requested unit: G3 (choose from: any medicine floor, specific medicine floor with rationale, CaRe, RTU, MICU). Patient status: INPT. (Obs v. Inpt) Cardiac telemetry needed? (specify if remote telemetry OK). Summary of verbal sign out given by ED/clinic CATERPILLAR OPERATOR: Cirrhosis, right femur fracture 58yo hx of cirrhosis, transferred from [facility] for a femur fracture after a fall at home. Has 2 total knee replacement. Has displaced mid-shaft right femur fracture -- ortho has been consulted. Got ancef for right foot wound. Has UTI - getting ceftriaxone ED to do paracentesis. Enedina Austin MD, 02/02/2024 6:13 PM Staff Physician, [facility] Note is for communication only, not [...] subsequent R femur fracture. Ortho consulted, recs yareli and ultimately placed in traction with [...] Course as of 02/02/242201e Feb 02, 2024 1604 ED EKG (12-LEAD) Nsr no acute ischemia 1649 Ortho aware of femur fracture; will evaluate 165 Ortho to evaluate 1653 ED Chemistry(!): Sodium [...] sign, ascites 1711 HS Troponin I: <3 171 Reviewed outside records: had fall at home after losing balance, felt R knee/leg pain immediately, couldn't bear weight. Hx cirrhosis, chronic lymphedema. Blood cultures sent there. Got ancef dose for R foot wound they felt was purulent. 1717 INR(!): 1.6 1728 UA, Total(!): Color YELLOW Appearance CLOUDY(!) Urine Glucose NEGATIVE Bili UA TRACE(!) Ketones TRACE(!) Specific [place] 1.024 Blood Ur LARGE(!) PH Urine 6.0 Protein Ur 30(!) Urobilinogen >=8(!) Nitrite Ur NEGATIVE Leuk Est SMALL(!) WBC Ur 6-10(!) RBC Ur >20(!) SQ EPITH 0-5 Bacteria UA PRESENT Urinalysis Performed at: [facility] Grossly concerning for infection; will treat with [...] 02/02/2024 3:17 PM CDT BIBA as a [facility] transfer. EMS was called around 0945 for a stumble and fall. HX of ETOH with cirrohsis and ascites. Right mid-shaft with Morphine and dilaudid in [place] ED. 4 mg morphine en route. Pain rating 3 or 4/10 2 g cefazolin en route 20 RFA * Maggie Tariq RN - 02/02/2024 1:44 PM CDT Report called from [facility]. Pt is non weight bearing and lives [...] Toe Head to Toe Assessment Shift Summary [id number] Pt A&O. Makes needs known. Denies pain [...] 21 (PICC) Peripherally Inserted Central Catheter 5 Gamb[place] 43 cm, 2 cm out Basilic 02/27/24 [...] 20 (PICC) Peripherally Inserted Central Catheter 5 [place] 43 cm, 2 cm out Basilic 02/27/24 1137 -- 1 Psychosocial Within Defined Limits * Nursing Assessment - Tifft, Stacy, RN - 02/28/2024 2:24 PM CDT Nursing [...] goal rate of 60ml/hr after 4 hours. Satcy Laughlin, RN, 02/28/2024 2:25 PM Neurologic/Cognitive Within [...] 20 (PICC) Peripherally Inserted Central Catheter 5 [place] 43 cm, 2 cm out Basilic 02/27/24 [...] liquid (02/27/2443) Liquid Stool (mL): 700 mL (05/25/24 0543) [...] 20 (PICC) Peripherally Inserted Central Catheter 5 [place] 43 cm, 2 cm out Basilic 02/27/24 [...] 19 (PICC) Peripherally Inserted Central Catheter 5 [place] 43 cm, 2 cm out Basilic 02/27/24 1137 -- less than 1 Psychosocial Within Defined Limits * Nursing Assessment - Stacy Laughlin, RN - 02/27/2024 2:43 PM CDT Nursing [...] Stool Amount: large (02/27/2443) Stool Color: brown (02/27/2443) Stool Consistency: liquid (02/27/2443) Liquid Stool (mL): [...] 19 (PICC) Peripherally Inserted Central Catheter 5 [place] 43 cm, 2 cm out Basilic 02/27/24 [...] applied. Dressing to R foot changed. This racebook writer noted this AM that pt has a Cano tube in rectum and attached to suction however there are no orders for suction or managing the tube. Reached out to primary team who instructed this racebook writer to leave it attached to suction while they paged the surgery team for clarification. During yulia cares, this racebook writer noted blood blisters on both sides [...] rectal tube is out, and patient inform racebook writer she wants surgery to access the area. Director Of Event Sales updated provider and other staff about patient distended abdomen, awaiting response. Director Of Event Sales was informed by provider to reinstate rectal tube. Director Of Event Sales asked for assistance, from charge nurse and [...] small (02/24/241739) Stool Color: light brown (02/24/24 1740) Stool [...] Incontinent to B/B. Rectal tube came out racebook writer tried to replace it but pt [...] retention - straight cath Not sent to [facility] for secondary review. * Nursing Assessment [...] rectal tube and suction in placed and racebook writer and HCA reposition patient to a comfortable position. Patient is on room air, lower extremities elevated on pillows. Denies SOB, nausea and vomiting, and requested for snacks and beverages given. Cano in tactand patent. Director Of Event Sales will continue to monitor. Within Defined Limits [...] Toe Head to Toe Assessment Shift Summary [id number] Alert and oriented x 4, uses call [...] light brown (02/23/24 2200) Stool Consistency: liquid (02/23/242199) Liquid Stool (mL): 400 mL (02/23/240) Genitourinary [...] Arm 02/11/241999 -- 12 Fecal Management/Containment System 05/18/24 2012 -- 3 Rash 02/02/24 2347 groin [...] brown (02/23/24 0612) Stool Consistency: liquid (02/23/24 06) Liquid Stool (mL): 800 mL (02/23/24 1500) [...] elastic straps and attached to cano bag. Director Of Event Sales note significant amount of gas in cano [...] light brown (02/22/24 06) Stool Consistency: liquid (02/22/24599) Liquid Stool (mL): [...] place, draining brown loose stool, green tube [id number] at 45ml , Flushed 30ml in purple [...] Fecal Management/Containment System 02/20/242011 -- 1 Rash 02/02/247 groin 02/02/242346 -- 19 Wound 02/03/24 Pedal Anterior;Right 02/03/24 [...] incontinence Comments: Rectal tube Stool (unmeasured): 1 (02/20/24 2000) Stool Amount: small (02/21/24 1400) Stool Color: [...] Toe Head to Toe Assessment Shift Summary 4899-4732 Alert and oriented x4. Has pain to [...] State: Sadness * Nursing Focused Reassessment - Rahda Otto RN - 02/20/2024 8:14 PM CDT [...] the patient's presentation is most consistent with [place] and recommend urgent GI consultation for decompression. [...] and guarding Comments: Acities Stool (unmeasured): 1 (02/18/241958) Stool Amount: small [...] to Toe Assessment Shift Summary Shift Summary [id number] Received the food she ordered for supper [...] Defined Limits * Utilization Management - Annalise Guo, RN - 02/18/2024 1:14 PM CDT Per [...] to Toe Assessment Shift Summary Shift Summary [id number] Pt is AO x4, pleasant, liable. Eats [...] Stool Color: brown (02/18/24238) Stool Consistency: loose (02/18/24 0239) Genitourinary Assessment Within Defined Limits except for: [...] Toe Head to Toe Assessment Shift Summary 1804-1707 Alert and oriented, able to use call light to report needs, vs wnl on ra, reported 7/10 aching painto LLE, oxycodone and tylenol given for pain relief, cms intact, wiggle toes, LLE elevated on pillows, aced wrap dressing c/d/I, pt teary in request to have anything to eat, this racebook writer educated pt that she is on regular/ 2 gm sodium diet, pt agreed to eat the meal per order, T&R, urinary catheter draining yellow clear urine, catheter cares completed, distended abd, denied pain to abd, no acute changes, intentional rounding, will continue to monitor. Filed Vitals: 02/17/24 0928 BP: 92/50 Pulse: 79 Resp: 18 Director Of Event Sales offered to do dressing change, pt was [...] Toe Head to Toe Assessment Shift Summary [id number] No acute events overnight. Q2H repositioning; patient intermittently refuses Q2H. Chronic cano in place 2/2 urinary retention. Many allergies listed. A&O. H2H precautions. Bed alarm active. CMS intact. Treating redness to sacral area/buttocks with barrier cream. Redness to abdominal folds being treated with nystatin and interdry. Pain 710 reported ~0200 with Q4H PRN oxycodone administered; [...] (unmeasured): 1 (02/13/24 0430) Stool Amount: moderate (05/12/24 0220) Stool Color: light brown (02/14/24219) Stool [...] known. Paged tx team upon return [facility] xray for diet order. Neurologic/Cognitive Within Defined [...] RN - 02/15/2024 12:14 AM CDT Summary: [id number] Nursing Assessment Head to Toe Head to Toe Assessment Shift Summary Pt is A&OX4. Pt is NPO at midnight. Q2H turns performed. Abdomen is taut and distended r/t ascites. Pt has redness to buttocks with barrier cream protecting. Inter-dry and nystatin powder protecting skin breakdown to abdominal and groin folds. Pt reports pain /10 to RLE. Dressing to R hip is [...] Rash 02/02/24 2347 groin 02/02/24 234 -- 12 Wound 02/03/24 Pretibial Left 02/03/24 [...] brown (02/14/24 022) Stool Consistency: liquid;loose (02/14/24 0220) Genitourinary Assessment [...] Toe Head to Toe Assessment Shift Summary 1200-2242 No acute changes.Pt is alert and oriented [...] Nursing Assessment - Nereyda-Thu French RN - 02/13/2024 12:38 AM CDT Summary: 1700-8000 Nursing Assessment Head to Toe Head to Toe Assessment Shift Summary Pt is A&OX4. BP trending on low end (94/61 at 0024). Pt c/o pain 7/10 to RLE and this racebook writer gave prn oxycodone and repositioned for [...] 02/11/241999 -- 1 Rash 02/02/24 2347 groin 02/02/247 -- 10 Wound 02/03/24 Pretibial [...] Medicated with tylenol and oxy. Controlled. Rozina Laniez, RN, 02/12/2024 8:45 PM Neurologic/Cognitive Within Defined [...] Within Defined Limits * Nursing Assessment - Kirk, Tram, RN - 02/12/2024 11:31 AM CDT Nursing [...] Head to Toe Assessment Shift Summary Shift [id number] Patient returned to room from procedure at [...] Tim Zapata MD General Surgery, PGY-2 Pager: [phone] or Telemediq * Cross Cover - Khloe Reyes PA-C - 02/11/2024 7:20 PM CDT Paged by Epifanio CLAM SHOVEL OPERATOR nurse regarding NG tube. On chart review appears CT ordered this afternoon shows increased rectosigmoid colonic distention with increased distal fecal contents. 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 NG was ordered by day team for decompression; however, CLAM SHOVEL OPERATOR RN does not feel appropriate for placement given cirrhosis and bleeding risk (reviewed lack of varices on EGD 09/26 and labs, but still feels too high risk). Epifanio notes this will need to be placed by IR if surgery unable to place overnight. CLAM SHOVEL OPERATOR and bedside RN asking for clarification [...] PA-C, 02/11/2024 7:38 PM I spoke with residential interior designer who notes they could place NG tube [...] distended. Order for NGT this evening however CLAM SHOVEL OPERATOR nurse would not place because patient [...] Toe Assessment Shift Summary Day Nursing Note 7615-4198: Alert and oriented. Tearful this AM re: [...] and oxycodone given. Will continue Monitor. Gay Menendez RN, 02/11/2024 7:15 AM Neurologic/Cognitive Within Defined [...] Toe Assessment Shift Summary Day Nursing Note [id number]: Alert and oriented. Reported 8 RLE pain, PRN oxycodone given. Abdomen extremely [...] 02/08/2024 3:32 PM * Nursing Assessment - Kerri Gabrielle Howie, RN - 02/08/2024 10:00 AM CDT Nursing [...] Toe Head to Toe Assessment Shift Summary 2465-1087 Pt A&Ox4. Endorsed pain to to RLE. [...] report. Patient abdomen very extended and hard. Director Of Event Sales notedno urine output and straight cath for 300 ml at 1400. Patient reports being incontinent at baselineand was incontinent of stool one time this shift. Director Of Event Sales placed external catheter on patient at 1700 after diuretic administration. Patient very anxious when repositioning . Wound vac failed and racebook writer notified ortho provider. Provider reports that wound vac is just over pin site and can go withoutit if unable to get a new one tonight. Patients groin is raw and red and racebook writer provided nystatin and lotion to area. Wound care done per order by racebook writer to coccyx. Patient does not tolerate [...] Toe Head to Toe Assessment Shift Summary 4956-3454 Pt A&Ox4. Endorsed pain to to RLE. [...] pain. [facility] and current skin [...] 2347 -- 3 Rash 02/02/24 2348 02/02/24 234 -- 3 Wound 02/03/24 Pretibial Left 02/03/24 [...] Toe Head to Toe Assessment Shift Summary 6595-6491 Pt Sleeping upon shift change. Endorsed pain to to RLE. PRN given per dec. Pt sleeping on reassessment. POD #0. Numbness to RLE. Other CMS intact. Leg elevated and ICE pack provided. Paracentesis site draining small output. Cano in place draining well. Pt drinking fluids well. Pt informed racebook writer she will call when she needs [...] small (02/05/24 0200) Stool Color: abhi colored (02/05/24199) Stool Consistency: [...] Jorge MD - 02/05/2024 1:31 PM CDT [facility] Immediate Post Operative Note Note written: [...] Implant Name Type Inv. Item Serial No. Stone Paver Lot No. LRB No. Used Action FEMORAL NAIL RETROGRADE [id number] Krystle FEMOR[employer]IL RETROGRADE [id number] [employer] [id number] Right 1 Implanted 5.0X60MM 2361-5060S Screw/[place] 5.0X60MM 2361-5060S [employer] [id number] Right 1 Implanted 5.0X70MM 2361-5070S Screw/[place] 5.0X70MM 2361-5070S [employer] [id number] Right 1 Implanted 5.0X75MM ADV 2361-5075S Screw/[place] 5.0X75MM ADV 2361-5075S [employer] [id number] Right 1 Implanted FREEHAND DRILL 4.2P037BD Drill bit/kiara FREEHAND DRILL 4.4X593FS [employer] [id number] Right1 Implanted 5.0X42.5MM 2360-5042S Screw/[place] 5.0X42.5MM 2360-5042S [employer] [id number] Right 1 Implanted Intraoperative Findings: see op [...] Vignesh Jorge MD Orthopaedic Surgery PGY-3 [facility] * Nursing Assessment - [...] Within Defined Limits * Nursing Assessment - [place]-Thu French RN - 02/05/2024 12:19 AM CDT Summary: [id number] Nursing Assessment Head to Toe Head to Toe Assessment Shift Summary Pt is A&OX4 with VSS on RA. Pt has very distended and taut stomach, paracentesis site drained 625 mL yellow fluid from ostomy bag. NPO status maintained. Cano catheter in place draining mili concentrated urine. Pt reports neuropathy at baseline and CMS is intact to RLE. This racebook writer attempted to give CHG bath and [...] RN - 02/04/2024 10:17 PM CDT Summary: [id number] Nursing Assessment Head to Toe Head to [...] 02/02/242346 -- 1 Rash 02/02/24 2348 02/02/24 2348 [...] suppository was given yesterday and had BM. Caon catheter in placedraining scant dark mili urine. [...] * Interdisciplinary Note - Carter Maurer APRN, SECURITIES SALES ASSOCIATE - 02/03/2024 12:38 PM CDT SURGERY PROVIDER [...] Carter Maurer APRN, CNP, 02/03/2024 12:38 PM [facility] Department of Surgery Pager: via telemediq * Nursing Assessment - Chelsi Mehta RN - 02/03/2024 6:35 AM CDT Nursing Assessment Head to Toe Head to Toe Assessment Shift Summary Shift Summary Pt arrived to [facility] from ED AT AROUND 1130 Admitted for [...] right femur, initial encounter for closed fracture ([facility]) Humphrey Rose MD, 02/02/2024 4:55 PM documented in this encounter Plan of Treatment Upcoming Encounters Date Type Department Care Team (Late st Contact Info) Description 03/03/2024 10:00 AM CDT [facility] [address] [place] [phone] Lia Mcclellan PA-C [address] [place] [address] Scheduled Discharge Disposition: Discharged to home or self care (routine discharge) 03/17/2024 9:45 AM CDT [facility]ointment [facility] [address] [place] [phone] Scheduled Discharge Disposition: Discharged to home or self care (routine discharge) 03/17/2024 10:00 AM CDT [facility] [address] [place] [phone] Dayo Henning MD [address] [address] Scheduled Discharge Disposition: Discharged to home or self care (routine discharge) Pending Results Name Type Priority Associated Diagnoses Date /Time PREALBUMIN Lab Routine 02/27/2024 4:2 2 PM CDT Scheduled Orders Name Type Priority Associated Diagnoses Orde r Schedule XR FEMUR RIGHT AP + LAT* Imaging Routine Other fracture of right femur, initial encounter for closed fracture ([facility]) Expected: 03/19/2024 (Approximate), Expires: 04/18/2025 PANEL BASIC [...] PC LAB CBC W/DIFF & PLT Routine 02/27/20 7:16 AM CDT PC TRIGLYCERIDES Routine 02/27/2024 [...] PC LAB CBC W/DIFF & PLT Routine 02/26/20 7:17 AM CDT PHOSPHORUS Routine 02/26/2024 7:17 AM CDT PANEL BASIC METABOLIC (BMP) Routine 02/26/2024 7:17 AM CDT MAGNESIUM Routine 02/26/2024 7:17 AM CDT POC GLUCOSE Routine 02/26/2024 6:23 AM CDT POC GLUCOSE Routine 02/26/2024 12:01 AM CDT POC GLUCOSE Routine 02/25/2024 9:33 PM CDT XR ABDOMEN 1 VIEW* Routine 02/25/2024 10 :45 AM CDT PC LAB CBC W/DIFF & PLT Routine 02/25/20 6:22 AM CDT PHOSPHORUS Routine 02/25/2024 6:22 AM CDT PANEL BASIC METABOLIC (BMP) Routine 02/25/2024 6:22 AM CDT MAGNESIUM Routine 02/25/2024 6:22 AM CDT POC GLUCOSE Routine 02/24/2024 5:53 PM CDT TC LAB BLOOD DRAW BY VENIPUNCTURE Routine 02/24/2024 11:25 AM CDT PROTHROMBIN (PT) & INR Routine 11:25 AM CDT PANEL BASIC METABOLIC (BMP) Routine 02/24/2024 11:25 AM CDT MAGNESIUM Routine 02/24/2024 11:25 AM CDT PANEL HEPATIC FUNCTION Routine 11:25 AM CDT XR ABDOMEN 1 VIEW* [...] AM CDT PROTHROMBIN (PT) & INR Timed 8:37 PM CDT PHOSPHORUS Timed 02/20/2024 8:37 [...] 7:44 AM CDT PANEL HEPATIC FUNCTION Routine 7:44 AM CDT PC LAB CBC/PLT Routine [...] PM CDT PROTHROMBIN (PT) & INR Routine 8:12 AM CDT PANEL BASIC METABOLIC (BMP) Routine 02/16/2024 8:12 AM CDT MAGNESIUM Routine 02/16/2024 8:12 AM CDT PANEL HEPATIC FUNCTION Routine 8:12 AM CDT PC LAB CBC/PLT Routine [...] 02/15/2024 10:46 AM CDT FLEXIBLE SIGMOIDOSCOPY Routine 9:55 AM CDT PROTHROMBIN (PT) & INR Routine 6:48 AM CDT PHOSPHORUS Routine 02/15/2024 6:48 AM CDT PANEL BASIC METABOLIC (BMP) Routine 02/15/2024 6:48 AM CDT MAGNESIUM Routine 02/15/2024 6:48 AM CDT PANEL HEPATIC FUNCTION Routine 6:48 AM CDT PC LAB CBC/PLT Routine [...] AM CDT PROTHROMBIN (PT) & INR Routine 8:18 AM CDT PHOSPHORUS Routine 02/14/2024 8:18 AM CDT PANEL BASIC METABOLIC (BMP) Routine 02/14/2024 8:18 AM CDT MAGNESIUM Routine 02/14/2024 8:18 AM CDT PANEL HEPATIC FUNCTION Routine 8:18 AM CDT PC LAB CBC/PLT Routine 02/14/2024 8:18 AM CDT POC GLUCOSE Routine 02/14/2024 6:07 AM CDT POC GLUCOSE Routine 02/13/2024 11:59 PM CDT POC GLUCOSE Routine 02/13/2024 6:06 PM CDT POC GLUCOSE Routine 02/13/2024 11:46 AM CDT PANEL BASIC METABOLIC (BMP) Routine 02/13/2024 9:06 AM CDT PANEL HEPATIC FUNCTION Routine 9:06 AM CDT PC LAB CBC/PLT Routine [...] AM CDT PROTHROMBIN (PT) & INR Routine 8:50 AM CDT PANEL BASIC METABOLIC (BMP) Routine 02/12/2024 8:50 AM CDT PANEL HEPATIC FUNCTION Routine 8:50 AM CDT PC LACTATE (LACTIC ACID) Timed 02/12/2024 8:50 AM CDT PC LAB CBC/PLT Routine 02/12/2024 8:50 AM CDT POC GLUCOSE Routine 02/12/2024 6:52 AM CDT PC LACTATE (LACTIC ACID) Timed 02/12/2024 2:54 AM CDT POC GLUCOSE Routine 02/11/2024 10:43 PM CDT COLONOSCOPY-DIAGNOSTIC Routine 9:24 PM CDT PC LACTATE (LACTIC ACID) Timed 02/11/2024 8:51 PM CDT PC LACTATE (LACTIC ACID) STAT 02/11/2024 7:[address] ABDOMEN/PELVIS W/IV CON Routine 02/11/2024 2:22 PM CDT XR ABDOMEN 1 VIEW* Routine 02/11/2024 10 :07 AM CDT PROTHROMBIN (PT) & INR Routine 7:25 AM CDT PANEL BASIC METABOLIC (BMP) Routine 02/11/2024 7:25 AM CDT PANEL HEPATIC FUNCTION Routine 7:25 AM CDT PC LAB CBC/PLT Routine 02/11/2024 7:25 AM CDT PHOSPHORUS Routine 02/11/2024 7:20 AM CDT MAGNESIUM Routine 02/11/2024 7:20 AM CDT TC LAB BLOOD DRAW BY VENIPUNCTURE Routine 02/10/2024 7:06 AM CDT PROTHROMBIN (PT) & INR Routine 7:06 AM CDT PANEL BASIC METABOLIC (BMP) Routine 02/10/2024 7:06 AM CDT MAGNESIUM Routine 02/10/2024 7:06 AM CDT PANEL HEPATIC FUNCTION Routine 7:06 AM CDT PC LAB CBC/PLT Routine [...] Routine 02/04/2024 1 0:44 PM CDT PC CULTURE,BACTERIAL,DEFIN ITIVE,AEROBIC ANY SOURCE Routine 02/04/2024 10:44 PM CDT PC CULTURE SPECIMEN, ANAEROBIC Routine 02/04/2024 10:44 PM CDT POC GLUCOSE Routine 02/04/2024 9:50 PM CDT PC CULTURE,BACTERIAL,DEFIN ATIVE,AEROBIC;BLOOD Timed 02/04/2024 6:44 PM CDT PC CULTURE,BACTERIAL,DEFIN ATIVE,AEROBIC;BLOOD Routine 02/04/2024 6:44 PM CDT POTASSIUM Timed [...] CBC/PLT Routine 02/04/2024 6:40 AM CDT PC CULTURE,BACTERIAL,DEFIN ATIVE,AEROBIC;BLOOD Timed 02/03/2024 12:13 PM CDT PC CULTURE,BACTERIAL,DEFIN ATIVE,AEROBIC;BLOOD Timed 02/03/2024 12:06 PM CDT PC LAB CBC W/DIFF & PLT Routine 02/03/20 24 8:03 AM CDT PROTHROMBIN (PT) & INR Routine 4 8:03 AM CDT PANEL BASIC METABOLIC (BMP) Routine 02/03/2024 8:03 AM CDT PANEL HEPATIC FUNCTION Routine 4 8:[address] RIGHT FEMUR [...] CT. STAT 02/02/2024 7:51 PM CDT PC CULTURE,BACTERIAL,DEFIN ITIVE,AEROBIC ANY SOURCE STAT 02/02/2024 7:51 PM CDT [...] PC LAB CBC W/DIFF & PLT STAT 02/02/20 4:01 PM CDT PROTHROMBIN (PT) & INR STAT 4:01 PM CDT LIPASE STAT 02/02/2024 4:01 PM CDT PANEL HEPATIC FUNCTION STAT 4:01 PM CDT PC LACTATE (LACTIC ACID) STAT 02/02/2024 4:01 PM CDT PC LAB GLYCOSYLATED HGB Routine 02/02/20 4:00 PM CDT PC ANTIBODY SCREEN,RBC,EACH SERUM [...] POC Glucose 105(H) 70 - 100 mg/dL [facility] - POINT OF CARE Blood 02/29/2024 6:45 AM CDT Humphrey Rose MD LABORATORY [facility] POINT OF CARE [address] [place] [address], [place] * POC GLUCOSE (02/28/2024 9:12 PM CDT) POC Glucose 94 70 - 100 mg/dL [facility] POINT OF CARE Blood 02/28/2024 9:12 PM CDT Humphrey Rose MD LABORATORY [facility] POINT OF [facility] [address] [place] [address], [place] * POC GLUCOSE (02/28/2024 4:38 PM CDT) POC Glucose 96 70 - 100 mg/dL [facility] POINT OF CARE Blood 02/28/2024 4:38 PM CDT Humphrey Rose MD LABORATORY Performing Organization Address City/[facility]/ZIP Co de Phone Number [facility] POINT OF [facility] [address] [place] [address], [place] * (ABNORMAL) POC GLUCOSE (02/28/2024 11:38 AM CDT) POC Glucose 101(H) 70 - 100 mg/dL [facility] POINT OF CARE Blood 02/28/2024 11:3 8 AM CDT Humphrey Rose MD LABORATORY [facility] POINT OF [facility] [address] [place] [address], [place] * POC GLUCOSE (02/28/2024 6:30 AM CDT) POC Glucose 91 70 - 100 mg/dL [facility] POINT OF CARE Blood 02/28/2024 6:30 AM CDT Humphrey Rose MD LABORATORY [facility] - POINT OF CARE [address] [place] [phone], * PHOSPHORUS (02/28/2024 6:00 AM CDT) Phosphorus 3.7 2.5 - 4.5 mg/dL [facility] Blood 02/28/2024 6:00 AM CDT 02/28/2024 6:12 AM CDT Nino Ramírez MD LABORATORY Performing Organization Address City/[facility] Co de Phone Number [facility] [address] [address] * MAGNESIUM (02/28/2024 6:00 AM CDT) Magnesium 2.0 1.6 - 2.6 mg/dL [facility] Blood 02/28/2024 6:00 AM CDT 02/28/2024 6:12 AM CDT Nino Ramírez MD LABORATORY Performing Organization Address [facility] Co de Phone Number [facility] [address] [address] * CALCIUM,IONIZED (02/28/2024 6:00 AM CDT) PH 7.38 7.32 - 7.42 [facility] ICA, Actual 4.57 4.40 - 5.20 mg/dL [facility] ICA, pH Corrected 4.52 4.40 - 5.20 mg/dL [facility] Blood 02/28/2024 6:00 AM CDT 02/28/2024 6:15 AM CDT Narrative [facility] - 02/28/2024 6:35 AM CDT Send specimen on ice! Nino Ramírez MD LABORATORY [facility] [address] [address] * (ABNORMAL) PANEL BASIC METABOLIC (BMP) (02/28/2024 6:00 AM CDT) Sodium 133(L) 135 - 148 mmol/L [facility] Potassium 3.5 3.5 - 5.3 mmol/L [facility] Chloride 102 92 - 108 mmol/L [facility] AnGap 7(L) 8 - 16 mmol/L [facility] CO2 24 22 - 30 mmol/L [facility] Glucose 87 70 - 100 mg/dL [facility] BUN 9 6 - 20 mg/dL [facility] Creatinine 0.46(L) 0.50 - 1.00 mg/dL [facility] Calcium 8.0(L) 8.6 - 10.0 mg/dL [facility] eGFR (2020 CKD-EPI) 110 >=60 ml/min/1.7 3m2 [facility] Comment: The estimated glomerular filtration rate (eGFR) was calculated using the CKD-EPI 2020 creatinine equation, which does not include race as a factor. This equation is validated in individuals 18 years of age and older, and eGFR is normalized to a body surface area of 1.73m^2. Blood 02/28/2024 6:00 AM CDT 02/28/2024 6:12 AM CDT Nino Ramírez MD LABORATORY Performing Organization Address [facility] Co de Phone Number [facility] [address] [address] * (ABNORMAL) POC GLUCOSE (02/27/2024 9:18 PM CDT) POC Glucose 107(H) 70 - 100 mg/dL [facility] [place] [facility] POINT OF CARE Blood 02/27/2024 9:18 PM CDT Humphrey Rose MD LABORATORY [facility] - POINT OF CARE [address] [place] [phone] [place] [address] * (ABNORMAL) POC GLUCOSE (02/27/2024 4:32 PM CDT) POC Glucose 105(H) 70 - 100 mg/dL [facility] POINT OF CARE Blood 02/27/2024 4:32 PM CDT Humphrey Rose MD LABORATORY Performing Organization Address City/[facility]/ZIP Co de Phone Number [facility] POINT OF CARE [address] [place] [address], [place] * XR PICC LINE PLACEMENT CHECK [...] POC Glucose 81 70 - 100 mg/dL [facility] POINT OF CARE Blood 02/27/2024 11:5 5 AM CDT Humphrey Rose MD LABORATORY Performing Organization Address City/[facility]/ZIP Co de Phone Number [facility] POINT OF CARE [address] [place] [address], [place] * PICC Line (02/27/2024 11:40 AM CDT) Narrative Patricia Dumont RN - 02/27/2024 11:40 AM CDT Patricia Dumont RN ? 02/27/2024 ??2:00 PM PICC Line Date/Time: 02/27/2024 11:40 AM Performed by: Patricia Dumont RN Authorized by: Nino Ramírez MD ?? [place] Protocol: ??Verbal consent obtained?: Yes ?Written consent [...] total length, 2 cm out secured with [id number]; AC to IS: 5 cm; Circumference 10 cm above AC: 24 cm) ??Catheter biotechnician: ??Bard ??Lot Number: ??[id number] ??Pre-procedure: landmarks identified ?Ultrasound guidance: Yes ?Number [...] AM CDT) Triglyceride 138 <=150 mg/dL [facility] Comment: Interpretive Data <150 Normal 150-199 Borderline high 200-499 High >=500 Very high Blood 02/27/2024 7:16 AM CDT 02/27/2024 7:35 AM CDT Ernestine Toribio MD LABORATORY [facility] [place] [phone] * PHOSPHORUS (02/27/2024 7:16 AM CDT) Phosphorus 3.2 2.5 - 4.5 mg/dL [facility] Blood 02/27/2024 7:16 AM CDT 02/27/2024 7:35 AM CDT Ernestine Toribio MD LABORATORY [facility] [place] [phone] * MAGNESIUM (02/27/2024 7:16 AM CDT) Magnesium 2.2 1.6 - 2.6 mg/dL [facility] Blood 02/27/2024 7:16 AM CDT 02/27/2024 7:35 AM CDT Ernestine Toribio MD LABORATORY Performing Organization Address [facility] Co de Phone Number [facility] [address] [address] * (ABNORMAL) PANEL BASIC METABOLIC (BMP) (02/27/2024 7:16 AM CDT) Sodium 132(L) 135 - 148 mmol/L [facility] Potassium 3.6 3.5 - 5.3 mmol/L [facility] Chloride 101 92 - 108 mmol/L [facility] CO2 23 22 - 30 mmol/L [facility] AnGap 8 8 - 16 mmol/L [facility] Glucose 81 70 - 100 mg/dL [facility] BUN 9 6 - 20 mg/dL [facility] Creatinine 0.52 0.50 - 1.00 mg/dL [facility] [facility] Calcium 7.8(L) 8.6 - 10.0 mg/dL [facility] eGFR (2020 CKD-EPI) 107 >=60 ml/min/1.7 3m2 [facility] Comment: The estimated glomerular filtration rate (eGFR) was calculated using the CKD-EPI 2020 creatinine equation, which does not include race as a factor. This equation is validated in individuals 18 years of age and older, and eGFR is normalized to a body surface area of 1.73m^2. Blood 02/27/2024 7:16 AM CDT 02/27/2024 7:35 AM CDT Ernestine Toribio MD LABORATORY Performing Organization Address [facility] Co de Phone Number [facility] [address] [address] * (ABNORMAL) CBC WITH PLTS/AUTO DIFF (02/27/2024 7:16 AM CDT) WBC 3.37(L) 4.00 - 10.00 k/cmm [facility] RBC 3.03(L) 3.90 - 5.20 m/cmm [facility] Hgb 9.1(L) 11.5 - 15.7 g/dL [facility] Hematocrit 29.5(L) 34.0 - 45.0 % [facility] MCV 97.4 80.0 - 100.0 fL [facility] MCH 30.0 25.0 - 32.0 pg [facility] MCHC 30.8(L) 31.0 - 36.0 g/dL [facility] RDW 14.4 11.5 - 14.5 % [facility] Plt 125(L) 150 - 400 k/cmm [facility] MPV 9.3 6.5 - 12.5 fL [facility] Automated Abs Neutrophil 1.31(L) 1.70 - 6.50 k/cmm [facility] Comment:Preliminary ANC, Fin al Result to Follow Abs Immature Granulocyte 0.01 0.00 - 0.09 k/cmm [facility] Comment:The Immature Granulo cyte Absolute count contains metamyelocytes and myelocytes. Abs Neutrophil 1.31(L) 1.70 - 6.50 k/cmm [facility] Abs Lymphocyte 1.63 0.80 - 4.00 k/cmm [facility] Abs Monocyte 0.32 0.20 - 1.00 k/cmm [facility] Abs Eosinophil 0.09 0.00 - 0.60 k/cmm [facility] Abs Basophil 0.01 0.00 - 0.20 k/cmm [facility] Blood 02/27/2024 7:16 AM CDT 02/27/2024 7:35 AM CDT Ernestine Toribio MD LABORATORY Performing Organization Address City/[facility] Co de Phone Number [facility] [place] [address] * POC GLUCOSE (02/27/2024 5:56 AM CDT) POC Glucose 84 70 - 100 mg/dL [facility] Blood 02/27/2024 5:56 AM CDT Humphrey Rose MD LABORATORY [facility] [address] [place] [address] * POC GLUCOSE (02/26/2024 11:54 PM CDT) POC Glucose 93 70 - 100 mg/dL [facility] Blood 02/26/2024 11:5 4 PM CDT Humphrey Rose MD LABORATORY Performing Organization Address City/[facility] Co de Phone Number [facility] [address] [place] [address], [place] * (ABNORMAL) POC GLUCOSE (02/26/2024 6:16 PM CDT) POC Glucose 128(H) 70 - 100 mg/dL [facility] Blood 02/26/2024 6:16 PM CDT Humphrey Rose MD LABORATORY Performing Organization Address [facility] Co de Phone Number [facility] [address] [place] [address], [place] * POTASSIUM (02/26/2024 4:52 PM CDT) Potassium 4.2 3.5 - 5.3 mmol/L [facility] Blood 02/26/2024 4:52 PM CDT 02/26/2024 5:19 PM CDT Ernestine Toribio MD LABORATORY Performing Organization Address [facility] Co de Phone Number [facility] [address] [place] [phone] * POC GLUCOSE (02/26/2024 11:58 AM CDT) POC Glucose 77 70 - 100 mg/dL [facility] Blood 02/26/2024 11:5 8 AM CDT Humphrey Rose MD LABORATORY Performing Organization Address City/[facility]/ZIP Co de Phone Number [facility] [address] [place], [place] [phone], [place] * XR ABDOMEN 1 VIEW* (02/26/2024 [...] WBC 3.06(L) 4.00 - 10.00 k/cmm [facility] RBC 3.05(L) 3.90 - 5.20 m/cmm [facility] Hgb 9.2(L) 11.5 - 15.7 g/dL [facility] Hematocrit 29.0(L) 34.0 - 45.0 % [facility] MCV 95.1 80.0 - 100.0 fL [facility] MCH 30.2 25.0 - 32.0 pg [facility] MCHC 31.7 31.0 - 36.0 g/dL [facility] RDW 14.8(H) 11.5 - 14.5 % [facility] Plt 144(L) 150 - 400 k/cmm [facility] MPV 9.8 6.5 - 12.5 fL [facility] Automated Abs Neutrophil 1.42(L) 1.70 - 6.50 k/cmm [facility] Comment:Preliminary ANC, Fin al Result to Follow Abs Immature Granulocyte 0.01 0.00 - 0.09 k/cmm [facility] Comment:The Immature Granulo cyte Absolute count contains metamyelocytes and myelocytes. Abs Neutrophil 1.42(L) 1.70 - 6.50 k/cmm [facility] Abs Lymphocyte 1.26 0.80 - 4.00 k/cmm [facility] Abs Monocyte 0.29 0.20 - 1.00 k/cmm [facility] Abs Eosinophil 0.06 0.00 - 0.60 k/cmm [facility] Abs Basophil 0.02 0.00 - 0.20 k/cmm [facility] Blood 02/26/2024 7:17 AM CDT 02/26/2024 7:53 AM CDT Ernestine Toribio MD LABORATORY Performing Organization Address City/[facility]/ZIP Co de Phone Number [facility] [place] [phone] * PHOSPHORUS (02/26/2024 7:17 AM CDT) Phosphorus 3.4 2.5 - 4.5 mg/dL [facility] Blood 02/26/2024 7:17 AM CDT 02/26/2024 7:54 AM CDT Ernestine Toribio MD LABORATORY Performing Organization Address City/[facility] Co de Phone Number [facility] [address] [address] * MAGNESIUM (02/26/2024 7:17 AM CDT) Magnesium 2.2 1.6 - 2.6 mg/dL [facility] Blood 02/26/2024 7:17 AM CDT 02/26/2024 7:54 AM CDT Ernestine Toribio MD LABORATORY Performing Organization Address City/[facility]/ZIP Co de Phone Number [facility] [address] [address] * (ABNORMAL) PANEL BASIC METABOLIC (BMP) (02/26/2024 7:17 AM CDT) Sodium 132(L) 135 - 148 mmol/L [facility] Potassium 3.2(L) 3.5 - 5.3 mmol/L [facility] Chloride 99 92 - 108 mmol/L [facility] CO2 26 22 - 30 mmol/L [facility] AnGap 7(L) 8 - 16 mmol/L [facility] Glucose 80 70 - 100 mg/dL [facility] BUN 9 6 - 20 mg/dL [facility] Creatinine 0.49(L) 0.50 - 1.00 mg/dL [facility] Calcium 7.8(L) 8.6 - 10.0 mg/dL [facility] eGFR (2020 CKD-EPI) 108 >=60 ml/min/1.7 3m2 [facility] Comment: The estimated glomerular filtration rate [...] Toribio MD LABORATORY Performing Organization Address City/[facility]/ZIP Co de Phone Number [facility] [place] [address] * POC GLUCOSE (02/26/2024 6:23 AM CDT) POC Glucose 78 70 - 100 mg/dL [facility] Blood 02/26/2024 6:23 AM CDT Humphrey Rose MD LABORATORY [facility] [address] [place] [address], * POC GLUCOSE (02/26/2024 12:01 AM CDT) POC Glucose 76 70 - 100 mg/dL [facility] Blood 02/26/2024 12:0 1 AM CDT Humphrey Rose MD LABORATORY [facility] [address] [place] [address], [place] * POC GLUCOSE (02/25/2024 9:33 PM CDT) POC Glucose 76 70 - 100 mg/dL [facility] Blood 02/25/2024 9:33 PM CDT Humphrey Rose MD LABORATORY Performing Organization Address [facility] Co de Phone Number [facility] [address] [place] [address], [place] * XR ABDOMEN 1 VIEW* (02/25/2024 [...] Phosphorus 3.5 2.5 - 4.5 mg/dL [facility] Blood 02/25/2024 6:22 AM CDT 02/25/2024 6:55 AM CDT Ernestine Toribio MD LABORATORY Performing Organization Address City/[facility] Co de Phone Number [facility] [address] [address] * MAGNESIUM (02/25/2024 6:22 AM CDT) Pathologist [facility] Magnesium 2.3 1.6 - 2.6 mg/dL [facility] Blood 02/25/2024 6:22 AM CDT 02/25/2024 6:55 AM CDT Ernestine Toribio MD LABORATORY Performing Organization Address [facility] de Phone Number [facility] [address] [address] * (ABNORMAL) CBC WITH PLTS/AUTO DIFF (02/25/2024 6:22 AM CDT) Pathologist [facility] WBC 2.69(L) 4.00 - 10.00 k/cmm [facility] RBC 3.06(L) 3.90 - 5.20 m/cmm [facility] Hgb 9.2(L) 11.5 - 15.7 g/dL [facility] Hematocrit 28.9(L) 34.0 - 45.0 % [facility] MCV 94.4 80.0 - 100.0 fL [facility] MCH 30.1 25.0 - 32.0 pg [facility] MCHC 31.8 31.0 - 36.0 g/dL [facility] RDW 14.8(H) 11.5 - 14.5 % [facility] Plt 132(L) 150 - 400 k/cmm [facility] MPV 9.7 6.5 - 12.5 fL [facility] Automated Abs Neutrophil 1.09(L) 1.70 - 6.50 k/cmm [facility] Comment:Preliminary ANC, Fin al Result to Follow Abs Immature Granulocyte 0.01 0.00 - 0.09 k/cmm [facility] Comment:The Immature Granulo cyte Absolute count contains metamyelocytes and myelocytes. Abs Neutrophil 1.09(L) 1.70 - 6.50 k/cmm [facility] Abs Lymphocyte 1.25 0.80 - 4.00 k/cmm [facility] Abs Monocyte 0.25 0.20 - 1.00 k/cmm [facility] Abs Eosinophil 0.07 0.00 - 0.60 k/cmm [facility] Abs Basophil 0.02 0.00 - 0.20 k/cmm [facility] Blood 02/25/2024 6:22 AM CDT 02/25/2024 6:55 AM CDT Ernestine Toribio MD LABORATORY Performing Organization Address City/State/[facility] Co de Phone Number [facility] [address] [address] * (ABNORMAL) PANEL BASIC METABOLIC (BMP) (02/25/2024 6:22 AM CDT) Sodium 133(L) 135 - 148 mmol/L [facility] Potassium 3.1(L) 3.5 - 5.3 mmol/L [facility] Chloride 99 92 - 108 mmol/L [facility] CO2 27 22 - 30 mmol/L [facility] AnGap 7(L) 8 - 16 mmol/L [facility] Glucose 77 70 - 100 mg/dL [facility] BUN 10 6 - 20 mg/dL [facility] Creatinine 0.48(L) 0.50 - 1.00 mg/dL [facility] Calcium 7.8(L) 8.6 - 10.0 mg/dL [facility] eGFR (2020 CKD-EPI) 109 >=60 ml/min/1.7 3m2 [facility] Comment: The estimated glomerular filtration rate [...] Toribio MD LABORATORY Performing Organization Address City/[facility]/ZIP Co de Phone Number [facility] [address] [address] * (ABNORMAL) POC GLUCOSE (02/24/2024 5:53 PM CDT) Pathologist [facility] POC Glucose 106(H) 70 - 100 mg/dL [facility] Blood 02/24/2024 5:53 PM CDT Humphrey Rose MD LABORATORY Performing Organization Address [facility] Co de Phone Number [facility] [address] [place] [address], * (ABNORMAL) PANEL HEPATIC FUNCTION (02/24/2024 11:25 AM CDT) Pathologist [facility] Total Protein 5.9(L) 6.4 - 8.3 g/dL [facility] Albumin 2.6(L) 3.8 - 5.1 g/dL [facility] Bili Total 0.6 <=1.2 mg/dL [facility] Bili Direct 0.2 <=0.3 mg/dL [facility] Alk Phos 123(H) 35 - 104 IU/L [facility] Comment:No reference range e stablished for patients <18 years old. ALT (SGPT) <5 <=33 IU/L [facility] AST(SGOT) 27 5 - 40 IU/L [facility] Blood 02/24/2024 11:2 5 AM CDT 02/24/2024 11:56 AM CDT Ernestine Toribio MD LABORATORY Performing Organization Address [facility]/ZIP Co de Phone Number [facility] [address] [address] * (ABNORMAL) PROTHROMBIN (PT) & INR (02/24/2024 11:25 AM CDT) Pathologist [facility] PT 16.8(H) 9.0 - 12.5 sec [facility] INR 1.5(H) 0.8 - 1.1 [facility] Comment: Warfarin Therapeutic Range: Standard Intensity: 2.0 - 3.0 High Intensity: 2.5 - 3.5 Blood 02/24/2024 11:2 5 AM CDT 02/24/2024 11:56 AM CDT Ernestine Toribio MD LABORATORY Performing Organization Address [facility] Co de Phone Number [facility] [address] [address] * MAGNESIUM (02/24/2024 11:25 AM CDT) [facility] Magnesium 2.2 1.6 - 2.6 mg/dL [facility] Blood 02/24/2024 11:2 5 AM CDT 02/24/2024 11:56 AM CDT Ernestine Toribio MD LABORATORY Performing Organization Address [facility] de Phone Number [facility] [place] [phone] * (ABNORMAL) PANEL BASIC METABOLIC (BMP) (02/24/2024 11:25 AM CDT) [facility] Sodium 132(L) 135 - 148 mmol/L [facility] Potassium 3.5 3.5 - 5.3 mmol/L [facility] Chloride 99 92 - 108 mmol/L [facility] CO2 25 22 - 30 mmol/L [facility] AnGap 8 8 - 16 mmol/L [facility] Glucose 83 70 - 100 mg/dL [facility] BUN 12 6 - 20 mg/dL [facility] Creatinine 0.55 0.50 - 1.00 mg/dL [facility] Calcium 7.5(L) 8.6 - 10.0 mg/dL [facility] eGFR (2020 CKD-EPI) 106 >=60 ml/min/1.7 3m2 [facility] Comment: The estimated glomerular filtration rate (eGFR) was calculated using the CKD-EPI 2020 creatinine equation, which does not include race as a factor. This equation is validated in individuals 18 years of age and older, and eGFR is normalized to a body surface area of 1.73m^2. Blood 02/24/2024 11:2 5 AM CDT 02/24/2024 11:56 AM CDT Ernestine Toribio MD LABORATORY [facility] [address] [address] * (ABNORMAL) CBC WITH PLTS/AUTO DIFF (02/24/2024 11:25 AM CDT) WBC 3.55(L) 4.00 - 10.00 k/cmm [facility] RBC 2.86(L) 3.90 - 5.20 m/cmm [facility] Hgb 8.6(L) 11.5 - 15.7 g/dL [facility] Hematocrit 27.3(L) 34.0 - 45.0 % [facility] MCV 95.5 80.0 - 100.0 fL [facility] MCH 30.1 25.0 - 32.0 pg [facility] MCHC 31.5 31.0 - 36.0 g/dL [facility] RDW 14.9(H) 11.5 - 14.5 % [facility] Plt 146(L) 150 - 400 k/cmm [facility] MPV 9.8 6.5 - 12.5 fL [facility] Automated Abs Neutrophil 1.79 1.70 - 6.50 k/cmm [facility] Comment:Preliminary ANC, Fin al Result to Follow Abs Immature Granulocyte 0.01 0.00 - 0.09 k/cmm [facility] Comment:The Immature Granulo cyte Absolute count contains metamyelocytes and myelocytes. Abs Neutrophil 1.79 1.70 - 6.50 k/cmm [facility] Abs Lymphocyte 1.37 0.80 - 4.00 k/cmm [facility] Abs Monocyte 0.33 0.20 - 1.00 k/cmm [facility] Abs Eosinophil 0.04 0.00 - 0.60 k/cmm [facility] Abs Basophil 0.01 0.00 - 0.20 k/cmm [facility] Blood 02/24/2024 11:2 5 AM CDT 02/24/2024 11:56 AM CDT Ernestine Toribio MD LABORATORY [facility] [address] [place] [address] * XR ABDOMEN 1 VIEW* (02/24/2024 9:02 [...] POC Glucose 80 70 - 100 mg/dL [facility] Blood 02/24/2024 6:51 AM CDT Humphrey Rose MD LABORATORY [facility] [address] [place] [address], [place] * POC GLUCOSE (02/24/2024 1:36 AM CDT) POC Glucose 81 70 - 100 mg/dL [facility] Blood 02/24/2024 1:36 AM CDT Humphrey Rose MD LABORATORY Performing Organization Address [facility] Co de Phone Number [facility] [address] [place] [address], [place] * (ABNORMAL) POC GLUCOSE (02/23/2024 6:39 PM CDT) POC Glucose 140(H) 70 - 100 mg/dL [facility] Blood 02/23/2024 6:39 PM CDT Humphrey Rose MD LABORATORY Performing Organization Address [facility] de Phone Number [facility] [address] [place] [address], [place] * XR ABDOMEN 1 VIEW* (02/23/2024 [...] Magnesium 2.2 1.6 - 2.6 mg/dL [facility] Blood 02/23/2024 8:46 AM CDT 02/23/2024 1:57 PM CDT Narrative [facility] - 02/23/2024 2:07 PM CDT Add to AM (02/22) labs. Ernestine Toribio MD LABORATORY [facility] [address] [address] * (ABNORMAL) PANEL BASIC METABOLIC (BMP) (02/23/2024 8:46 AM CDT) CO2 24 22 - 30 mmol/L [facility] Glucose 154(H) 70 - 100 mg/dL [facility] BUN 11 6 - 20 mg/dL [facility] Creatinine 0.52 0.50 - 1.00 mg/dL [facility] Calcium 7.6(L) 8.6 - 10.0 mg/dL [facility] Sodium 129(L) 135 - 148 mmol/L [facility] Potassium 3.3(L) 3.5 - 5.3 mmol/L [facility] Chloride 96 92 - 108 mmol/L [facility] eGFR (2020 CKD-EPI) 107 >=60 ml/min/1.7 3m2 [facility] Comment: The estimated glomerular filtration rate (eGFR) was calculated using the CKD-EPI 2020 creatinine equation, which does not include race as a factor. This equation is validated in individuals 18 years of age and older, and eGFR is normalized to a body surface area of 1.73m^2. AnGap 9 8 - 16 mmol/L [facility] Blood 02/23/2024 8:46 AM CDT 02/23/2024 9:23 AM CDT Francy Mc MD LABORATORY [facility] [address] [address] * (ABNORMAL) CBC WITH PLATELET (02/23/2024 8:46 AM CDT) WBC 3.17(L) 4.00 - 10.00 k/cmm [facility] RBC 3.23(L) 3.90 - 5.20 m/cmm [facility] Hgb 9.7(L) 11.5 - 15.7 g/dL [facility] Hematocrit 31.0(L) 34.0 - 45.0 % [facility] MCV 96.0 80.0 - 100.0 fL [facility] MCH 30.0 25.0 - 32.0 pg [facility] MCHC 31.3 31.0 - 36.0 g/dL [facility] RDW 14.9(H) 11.5 - 14.5 % [facility] Plt 138(L) 150 - 400 k/cmm [facility] MPV 10.4 6.5 - 12.5 fL [facility] Blood 02/23/2024 8:46 AM CDT 02/23/2024 9:23 AM CDT Francy Mc MD LABORATORY Performing Organization Address City/[facility]/ZIP Co de Phone Number [facility] [address] [address] * POC GLUCOSE (02/23/2024 6:48 AM CDT) POC Glucose 85 70 - 100 mg/dL [facility] Blood 02/23/2024 6:48 AM CDT Humphrey Rose MD LABORATORY [facility] [address] [place] [address], * POC GLUCOSE (02/23/2024 12:07 AM CDT) POC Glucose 74 70 - 100 mg/dL [facility] Blood 02/23/2024 12:0 7 AM CDT Humphrey Rose MD LABORATORY Performing Organization Address City/[facility]/ZIP Co de Phone Number [facility] [address] [place] [address], [place] * POC GLUCOSE (02/22/2024 11:29 AM CDT) POC Glucose 91 70 - 100 mg/dL [facility] Blood 02/22/2024 11:2 9 AM CDT Humphrey Rose MD LABORATORY Performing Organization Address City/[facility] Co de Phone Number [facility] [address] [place] [address], [place] * POC GLUCOSE (02/22/2024 6:45 AM CDT) POC Glucose 78 70 - 100 mg/dL [facility] Blood 02/22/2024 6:45 AM CDT Humphrey Rose MD LABORATORY Performing Organization Address City/[facility] Co de Phone Number [facility] [address] [place] [address], [place] * (ABNORMAL) PANEL BASIC METABOLIC (BMP) (02/22/2024 6:18 AM CDT) CO2 26 22 - 30 mmol/L [facility] Glucose 81 70 - 100 mg/dL [facility] BUN 13 6 - 20 mg/dL [facility] Creatinine 0.52 0.50 - 1.00 mg/dL [facility] Calcium 7.6(L) 8.6 - 10.0 mg/dL [facility] Sodium 132(L) 135 - 148 mmol/L [facility] Potassium 3.5 3.5 - 5.3 mmol/L [facility] Chloride 98 92 - 108 mmol/L [facility] eGFR (2020 CKD-EPI) 107 >=60 ml/min/1.7 3m2 [facility] Comment: The estimated glomerular filtration rate (eGFR) was calculated using the CKD-EPI 2020 creatinine equation, which does not include race as a factor. This equation is validated in individuals 18 years of age and older, and eGFR is normalized to a body surface area of 1.73m^2. AnGap 8 8 - 16 mmol/L [facility] Blood 02/22/2024 6:18 AM CDT 02/22/2024 6:43 AM CDT Francy Mc MD LABORATORY Performing Organization Address City/[facility]/ZIP Co de Phone Number [facility] [address] [address] * (ABNORMAL) CBC WITH PLATELET (02/22/2024 6:18 AM CDT) WBC 3.82(L) 4.00 - 10.00 k/cmm [facility] RBC 2.68(L) 3.90 - 5.20 m/cmm [facility] Hgb 8.1(L) 11.5 - 15.7 g/dL [facility] Hematocrit 25.4(L) 34.0 - 45.0 % [facility] MCV 94.8 80.0 - 100.0 fL [facility] MCH 30.2 25.0 - 32.0 pg [facility] MCHC 31.9 31.0 - 36.0 g/dL [facility] RDW 15.3(H) 11.5 - 14.5 % [facility] Plt 115(L) 150 - 400 k/cmm [facility] MPV 10.0 6.5 - 12.5 fL [facility] Blood 02/22/2024 6:18 AM CDT 02/22/2024 6:43 AM CDT Francy Mc MD LABORATORY [facility] [address] [id number] * POC GLUCOSE (02/22/2024 12:39 AM CDT) Pathologist [facility] POC Glucose 82 70 - 100 mg/dL [facility] Blood 02/22/2024 12:3 9 AM CDT Humphrey Rose MD LABORATORY Performing Organization Address [facility] de Phone Number [facility] [address] [place] [phone], * (ABNORMAL) POC GLUCOSE (02/21/2024 6:03 PM CDT) Pathologist [facility] POC Glucose 144(H) 70 - 100 mg/dL [facility] Blood 02/21/2024 6:03 PM CDT Humphrey Rose MD LABORATORY Performing Organization Address [facility] de Phone Number [facility] [place] [address], [place] * LACTATE (LACTIC ACID) (02/21/2024 8:38 AM CDT) [facility] Lactate 1.3 0.7 - 2.1 mmol/L [facility] Blood 02/21/2024 8:38 AM CDT 02/21/2024 8:49 AM CDT Narrative [facility] - 02/21/2024 8:57 AM CDT Send specimen on ice! Nikos Ferrer MD LABORATORY Performing Organization Address City/[facility] Co de Phone Number [facility] [address] [address] * CALCIUM,IONIZED (02/21/2024 8:38 AM CDT) Pathologist [facility] PH 7.40 7.32 - 7.42 [facility] ICA, Actual 4.45 4.40 - 5.20 mg/dL [facility] ICA, pH Corrected 4.46 4.40 - 5.20 mg/dL [facility] Blood 02/21/2024 8:38 AM CDT 02/21/2024 8:49 AM CDT Narrative [facility] - 02/21/2024 8:57 AM CDT Send specimen on ice! Nikos Ferrer MD LABORATORY Performing Organization Address City/[facility] Co de Phone Number [facility] [address] [address] * PHOSPHORUS (02/21/2024 8:38 AM CDT) Phosphorus 3.5 2.5 - 4.5 mg/dL [facility] Blood 02/21/2024 8:38 AM CDT 02/21/2024 8:50 AM CDT Nikos Ferrer MD LABORATORY Performing Organization Address [facility] Co de Phone Number [facility] [address] [address] * MAGNESIUM (02/21/2024 8:38 AM CDT) Magnesium 2.2 1.6 - 2.6 mg/dL [facility] Blood 02/21/2024 8:38 AM CDT 02/21/2024 8:50 AM CDT Nikos Ferrer MD LABORATORY Performing Organization Address [facility] Co de Phone Number [facility] [address] [address] * (ABNORMAL) PANEL BASIC METABOLIC (BMP) (02/21/2024 8:38 AM CDT) Sodium 131(L) 135 - 148 mmol/L [facility] Potassium 4.0 3.5 - 5.3 mmol/L [facility] Chloride 98 92 - 108 mmol/L [facility] CO2 27 22 - 30 mmol/L [facility] AnGap 6(L) 8 - 16 mmol/L [facility] Glucose 88 70 - 100 mg/dL [facility] BUN 13 6 - 20 mg/dL [facility] Creatinine 0.52 0.50 - 1.00 mg/dL [facility] Calcium 8.0(L) 8.6 - 10.0 mg/dL [facility] eGFR (2020 CKD-EPI) 107 >=60 ml/min/1.7 3m2 [facility] Comment: The estimated glomerular filtration rate (eGFR) was calculated using the CKD-EPI 2020 creatinine equation, which does not include race as a factor. This equation is validated in individuals 18 years of age and older, and eGFR is normalized to a body surface area of 1.73m^2. Blood 02/21/2024 8:38 AM CDT 02/21/2024 8:50 AM CDT Francy Mc MD LABORATORY [facility] [address] [address] * (ABNORMAL) CBC WITH PLATELET (02/21/2024 8:38 AM CDT) WBC 4.54 4.00 - 10.00 k/cmm [facility] RBC 3.02(L) 3.90 - 5.20 m/cmm [facility] Hgb 9.0(L) 11.5 - 15.7 g/dL [facility] Hematocrit 28.7(L) 34.0 - 45.0 % [facility] MCV 95.0 80.0 - 100.0 fL [facility] MCH 29.8 25.0 - 32.0 pg [facility] MCHC 31.4 31.0 - 36.0 g/dL [facility] RDW 15.2(H) 11.5 - 14.5 % [facility] Plt 120(L) 150 - 400 k/cmm [facility] MPV 10.3 6.5 - 12.5 fL [facility] Blood 02/21/2024 8:38 AM CDT 02/21/2024 8:50 AM CDT Francy Mc MD LABORATORY [facility] [address] [address] * CALCIUM,IONIZED (02/20/2024 8:37 PM CDT) PH 7.41 7.32 - 7.42 [facility] ICA, Actual 4.57 4.40 - 5.20 mg/dL [facility] ICA, pH Corrected 4.58 4.40 - 5.20 mg/dL [facility] Blood 02/20/2024 8:37 PM CDT 02/20/2024 9:02 PM CDT Narrative [facility] - 02/20/2024 9:07 PM CDT Send specimen on ice! Autumn Jerome MD LABORATORY Performing Organization Address City/[facility]/ZIP Co de Phone Number [facility] [address] [address] * PHOSPHORUS (02/20/2024 8:37 PM CDT) [facility] Phosphorus 3.4 2.5 - 4.5 mg/dL [facility] Blood 02/20/2024 8:37 PM CDT 02/20/2024 9:04 PM CDT Autumn Jerome MD LABORATORY Performing Organization Address City/[facility] Co de Phone Number [facility] [address] [address] * MAGNESIUM (02/20/2024 8:37 PM CDT) Pathologist [facility] Magnesium 2.2 1.6 - 2.6 mg/dL [facility] Blood 02/20/2024 8:37 PM CDT 02/20/2024 9:04 PM CDT Autumn Jerome MD LABORATORY Performing Organization Address City/[facility] Co de Phone Number [facility] [address] [address] * (ABNORMAL) PANEL BASIC METABOLIC (BMP) (02/20/2024 8:37 PM CDT) Pathologist [facility] Sodium 129(L) 135 - 148 mmol/L [facility] Potassium 4.2 3.5 - 5.3 mmol/L [facility] Chloride 96 92 - 108 mmol/L [facility] CO2 26 22 - 30 mmol/L [facility] AnGap 7(L) 8 - 16 mmol/L [facility] Glucose 93 70 - 100 mg/dL [facility] BUN 15 6 - 20 mg/dL [facility] Creatinine 0.59 0.50 - 1.00 mg/dL [facility] Calcium 8.1(L) 8.6 - 10.0 mg/dL [facility] eGFR (2020 CKD-EPI) 104 >=60 ml/min/1.7 3m2 [facility] Comment: The estimated glomerular filtration rate [...] Jerome MD LABORATORY Performing Organization Address City/[facility]/ZIP Co de Phone Number [address] [address] * (ABNORMAL) PROTHROMBIN (PT) & INR (02/20/2024 8:37 PM CDT) PT 15.9(H) 9.0 - 12.5 sec [facility] INR 1.4(H) 0.8 - 1.1 [facility] Comment: Warfarin Therapeutic Range: Standard Intensity: 2.0 - 3.0 High Intensity: 2.5 - 3.5 Blood 02/20/2024 8:37 PM CDT 02/20/2024 9:04 PM CDT Francy Mc MD LABORATORY Performing Organization Address City/[facility]/ZIP Co de Phone Number [address] [address] * (ABNORMAL) HEMOGLOBIN (02/20/2024 8:37 PM CDT) Hgb 8.7(L) 11.5 - 15.7 g/dL [facility] Blood 02/20/2024 8:37 PM CDT 02/20/2024 9:04 PM CDT Francy Mc MD LABORATORY [facility] [address] [address] * CT ABDOMEN/PELVIS W/IV CON (02/20/2024 7:05 [...] Landon Mitchell Reading Resident: Dominic Hair Autumn Jeroem MD RAD CT BODY * (ABNORMAL) POC GLUCOSE (02/20/2024 6:32 PM CDT) POC Glucose 119(H) 70 - 100 mg/dL [facility] Blood 02/20/2024 6:32 PM CDT Humphrey Rose MD LABORATORY [facility] [address] [place] [address], * LACTATE (LACTIC ACID) (02/20/2024 5:38 PM CDT) Lactate 1.8 0.7 - 2.1 mmol/L [facility] Blood 02/20/2024 5:38 PM CDT 02/20/2024 5:44 PM CDT Narrative [facility] - 02/20/2024 5:48 PM CDT Send specimen on ice! Francy Mc MD LABORATORY [facility] [address] [address] * XR ABDOMEN 1 VIEW* (02/20/2024 4:42 [...] Protein 5.9(L) 6.4 - 8.3 g/dL [facility] Albumin 3.1(L) 3.8 - 5.1 g/dL [facility] Bili Total 0.9 <=1.2 mg/dL [facility] Bili Direct 0.3 <=0.3 mg/dL [facility] Alk Phos 114(H) 35 - 104 IU/L [facility] Comment:No reference range e stablished for patients <18 years old. ALT (SGPT) 5 <=33 IU/L [facility] AST(SGOT) 38 5 - 40 IU/L [facility] Blood 02/20/2024 7:44 AM CDT 02/20/2024 3:36 PM CDT Francy Mc MD LABORATORY [facility] [address] [address] * (ABNORMAL) PANEL BASIC METABOLIC (BMP) (02/20/2024 7:44 AM CDT) Sodium 129(L) 135 - 148 mmol/L [facility] Potassium 4.1 3.5 - 5.3 mmol/L [facility] Chloride 96 92 - 108 mmol/L [facility] CO2 27 22 - 30 mmol/L [facility] AnGap 6(L) 8 - 16 mmol/L [facility] Glucose 83 70 - 100 mg/dL [facility] BUN 15 6 - 20 mg/dL [facility] Creatinine 0.61 0.50 - 1.00 mg/dL [facility] Calcium 8.0(L) 8.6 - 10.0 mg/dL [facility] eGFR (2020 CKD-EPI) 103 >=60 ml/min/1.7 3m2 [facility] Comment: The estimated glomerular filtration rate [...] Mc MD LABORATORY Performing Organization Address City/[facility]/ZIP Co de Phone Number [facility] [address] [place] [address] * (ABNORMAL) CBC WITH PLATELET (02/20/2024 7:44 AM CDT) WBC 3.10(L) 4.00 - 10.00 k/cmm [facility] RBC 2.63(L) 3.90 - 5.20 m/cmm [facility] Hgb 8.0(L) 11.5 - 15.7 g/dL [facility] Hematocrit 25.7(L) 34.0 - 45.0 % [facility] MCV 97.7 80.0 - 100.0 fL [facility] MCH 30.4 25.0 - 32.0 pg [facility] MCHC 31.1 31.0 - 36.0 g/dL [facility] RDW 15.3(H) 11.5 - 14.5 % [facility] Plt 116(L) 150 - 400 k/cmm [facility] MPV 10.8 6.5 - 12.5 fL [facility] Blood 02/20/2024 7:44 AM CDT 02/20/2024 8:35 AM CDT Francy Mc MD LABORATORY [facility] [address] [place] [address] * POC GLUCOSE (02/20/2024 6:18 AM CDT) POC Glucose 92 70 - 100 mg/dL [facility] Blood 02/20/2024 6:18 AM CDT Humphrey Rose MD LABORATORY [facility] [address] [place] [address], [place] * (ABNORMAL) POC GLUCOSE (02/19/2024 9:24 PM CDT) POC Glucose 128(H) 70 - 100 mg/dL [facility] Blood 02/19/2024 9:24 PM CDT Humprhey Rose MD LABORATORY Performing Organization Address City/[facility] Co de Phone Number [facility] [address] [place] [address], [place] * POC GLUCOSE (02/19/2024 4:19 PM CDT) POC Glucose 83 70 - 100 mg/dL [facility] Blood 02/19/2024 4:19 PM CDT Humphrey Rose MD LABORATORY Performing Organization Address City/[facility]/ZIP Co de Phone Number [facility] [address] [place] [address], [place] * Paracentesis (02/19/2024 2:55 PM CDT) [...] to verify the correct patient, procedure, equipment, is support analyst and site/side marked as required. Initial or [...] * POC GLUCOSE (02/19/2024 11:06 AM CDT) POC Glucose 82 70 - 100 mg/dL [facility] Blood 02/19/2024 11:0 6 AM CDT Humphrey Rose MD LABORATORY Performing Organization Address City/[facility] Co de Phone Number [facility] [address] [place] [address], [place] * POC GLUCOSE (02/19/2024 6:02 AM CDT) POC Glucose 84 70 - 100 mg/dL [facility] Blood 02/19/2024 6:02 AM CDT Humphrey Rose MD LABORATORY Performing Organization Address [facility] Co de Phone Number [facility] [address] [place] [address], [place] * (ABNORMAL) CBC WITH PLATELET (02/19/2024 5:03 AM CDT) WBC 3.27(L) 4.00 - 10.00 k/cmm [facility] RBC 2.64(L) 3.90 - 5.20 m/cmm [facility] Hgb 8.1(L) 11.5 - 15.7 g/dL [facility] Hematocrit 25.8(L) 34.0 - 45.0 % [facility] MCV 97.7 80.0 - 100.0 fL [facility] MCH 30.7 25.0 - 32.0 pg [facility] MCHC 31.4 31.0 - 36.0 g/dL [facility] RDW 15.3(H) 11.5 - 14.5 % [facility] Plt 127(L) 150 - 400 k/cmm [facility] MPV 10.4 6.5 - 12.5 fL [facility] Blood 02/19/2024 5:03 AM CDT 02/19/2024 5:39 AM CDT Francy Mc MD LABORATORY Performing Organization Address City/[facility]/ZIP Co de Phone Number [facility] [address] [address] * (ABNORMAL) PANEL BASIC METABOLIC (BMP) (02/19/2024 5:03 AM CDT) Sodium 129(L) 135 - 148 mmol/L [facility] Potassium 4.3 3.5 - 5.3 mmol/L [facility] Chloride 95 92 - 108 mmol/L [facility] CO2 26 22 - 30 mmol/L [facility] AnGap 8 8 - 16 mmol/L [facility] Glucose 80 70 - 100 mg/dL [facility] BUN 18 6 - 20 mg/dL [facility] Creatinine 0.65 0.50 - 1.00 mg/dL [facility] Calcium 8.4(L) 8.6 - 10.0 mg/dL [facility] eGFR (2020 CKD-EPI) 101 >=60 ml/min/1.7 3m2 [facility] Comment: The estimated glomerular filtration rate [...] Mc MD LABORATORY Performing Organization Address City/[facility]/ZIP Co de Phone Number [facility] [address] [address] * POC GLUCOSE (02/19/2024 12:07 AM CDT) POC Glucose 85 70 - 100 mg/dL [facility] Blood 02/19/2024 12:0 7 AM CDT Humphrey Rose MD LABORATORY [facility] [address] [place] [address], * (ABNORMAL) SODIUM (02/18/2024 9:39 PM CDT) Sodium 126(L) 135 - 148 mmol/L [facility] Blood 02/18/2024 9:39 PM CDT 02/18/2024 10:05 PM CDT Francy Mc MD LABORATORY Performing Organization Address [facility] Co de Phone Number [address] [address] * OSMOLALITY,URINE-RANDOM LASHELL (02/18/2024 4:31 PM CDT) Urine Osmo 293 50 - 800 mOsm/Kg [facility] Urine 02/18/2024 4:31 PM CDT 02/18/2024 4:43 PM CDT Francy Mc MD LABORATORY Performing Organization Address [facility] Co de Phone Number [facility] [address] [address] * (ABNORMAL) SODIUM,URINE-RANDOM LASHELL (02/18/2024 4:31 PM CDT) Sodium Urine <20(L) 40 - 200 mEq/L [facility] Urine 02/18/2024 4:31 PM CDT 02/18/2024 4:43 PM CDT Francy Mc MD LABORATORY Performing Organization Address [facility] Co de Phone Number [facility] [address] [address] * (ABNORMAL) SODIUM (02/18/2024 3:10 PM CDT) Sodium 125(AA) 135 - 148 mmol/L [facility] Comment:Critical Result Low Blood 02/18/2024 3:10 PM CDT 02/18/2024 3:36 PM CDT Narrative [facility] - 02/18/2024 4:25 PM CDT Critical value for Na called to and read back by Francy Mc MD in Ortho at 02/18/2024 16:24:57 CDT by Marion Tate MLS. Francy Mc MD LABORATORY Performing Organization Address City/[facility]/ZIP Co de Phone Number [facility] [place] [address] * TSH WITH REFLEX TO FREE T4 (02/18/2024 8:33 AM CDT) Pathologist [facility] TSH 1.99 0.27 - 4.20 mIU/L [facility] Blood 02/18/2024 8:33 AM CDT 02/18/2024 5:10 PM CDT Francy Mc MD LABORATORY Performing Organization Address City/[facility] Co de Phone Number [facility] [place] [address] * (ABNORMAL) PANEL BASIC METABOLIC (BMP) (02/18/2024 8:33 AM CDT) Sodium 127(L) 135 - 148 mmol/L [facility] Potassium 4.2 3.5 - 5.3 mmol/L [facility] Chloride 95 92 - 108 mmol/L [facility] CO2 25 22 - 30 mmol/L [facility] AnGap 7(L) 8 - 16 mmol/L [facility] Glucose 92 70 - 100 mg/dL [facility] BUN 18 6 - 20 mg/dL [facility] Creatinine 0.71 0.50 - 1.00 mg/dL [facility] Calcium 7.9(L) 8.6 - 10.0 mg/dL [facility] eGFR (2020 CKD-EPI) 98 >=60 ml/min/1.7 3m2 [facility] Comment: The estimated glomerular filtration rate (eGFR) was calculated using the CKD-EPI 2020 creatinine equation, which does not include race as a factor. This equation is validated in individuals 18 years of age and older, and eGFR is normalized to a body surface area of 1.73m^2. Blood 02/18/2024 8:33 AM CDT 02/18/2024 8:45 AM CDT Francy Mc MD LABORATORY [facility] [address] [address] * (ABNORMAL) CBC WITH PLATELET (02/18/2024 8:33 AM CDT) Pathologist [facility] WBC 4.30 4.00 - 10.00 k/cmm [facility] RBC 3.08(L) 3.90 - 5.20 m/cmm [facility] Hgb 9.6(L) 11.5 - 15.7 g/dL [facility] Hematocrit 29.2(L) 34.0 - 45.0 % [facility] MCV 94.8 80.0 - 100.0 fL [facility] MCH 31.2 25.0 - 32.0 pg [facility] MCHC 32.9 31.0 - 36.0 g/dL [facility] RDW 15.5(H) 11.5 - 14.5 % [facility] Plt 148(L) 150 - 400 k/cmm [facility] MPV 10.1 6.5 - 12.5 fL [facility] Blood 02/18/2024 8:33 AM CDT 02/18/2024 8:45 AM CDT Francy Mc MD LABORATORY [facility] [address] [address] * POC GLUCOSE (02/18/2024 8:06 AM CDT) POC Glucose 74 70 - 100 mg/dL [facility] Blood 02/18/2024 8:06 AM CDT Humphrey Rose MD LABORATORY [facility] [address] [place] [address], * (ABNORMAL) POC GLUCOSE (02/17/2024 11:13 AM CDT) POC Glucose 113(H) 70 - 100 mg/dL [facility] Blood 02/17/2024 11:1 3 AM CDT Humphrey Rose MD LABORATORY Performing Organization Address [facility] Co de Phone Number [facility] [address] [place] [address], [place] * (ABNORMAL) PANEL BASIC METABOLIC (BMP) (02/17/2024 7:19 AM CDT) CO2 25 22 - 30 mEq/L [facility] Glucose 83 70 - 100 mg/dL [facility] BUN 16 6 - 20 mg/dL [facility] Creatinine 0.59 0.50 - 1.00 mg/dL [facility] Calcium 7.7(L) 8.6 - 10.0 mg/dL [facility] Sodium 128(L) 135 - 148 mEq/L [facility] Potassium 4.0 3.5 - 5.3 mEq/L [facility] Chloride 97 92 - 108 mEq/L [facility] eGFR (2020 CKD-EPI) 104 >=60 ml/min/1.7 3m2 [facility] Comment: The estimated glomerular filtration rate (eGFR) was calculated using the CKD-EPI 2020 creatinine equation, which does not include race as a factor. This equation is validated in individuals 18 years of age and older, and eGFR is normalized to a body surface area of 1.73m^2. AnGap 6(L) 8 - 16 mEq/L [facility] Blood 02/17/2024 7:19 AM CDT 02/17/2024 8:14 AM CDT Francy Mc MD LABORATORY Performing Organization Address City/[facility]/ZIP Co de Phone Number [facility] [address] [place] [phone] * (ABNORMAL) CBC WITH PLATELET (02/17/2024 7:19 AM CDT) Pathologist [facility] WBC 4.68 4.00 - 10.00 k/cmm [facility] RBC 2.63(L) 3.90 - 5.20 m/cmm [facility] Hgb 8.0(L) 11.5 - 15.7 g/dL [facility] Hematocrit 25.5(L) 34.0 - 45.0 % [facility] MCV 97.0 80.0 - 100.0 fL [facility] MCH 30.4 25.0 - 32.0 pg [facility] MCHC 31.4 31.0 - 36.0 g/dL [facility] RDW 15.3(H) 11.5 - 14.5 % [facility] Plt 133(L) 150 - 400 k/cmm [facility] MPV 10.5 6.5 - 12.5 fL [facility] Blood 02/17/2024 7:19 AM CDT 02/17/2024 8:14 AM CDT Francy Mc MD LABORATORY Performing Organization Address [facility] Co de Phone Number [facility] [address] [address] * POC GLUCOSE (02/17/2024 6:02 AM CDT) Pathologist [facility] POC Glucose 86 70 - 100 mg/dL [facility] Blood 02/17/2024 6:02 AM CDT Humphrey Rose MD LABORATORY [facility] [address] [place] [id number] [place] [address] * POC GLUCOSE (02/17/2024 12:02 AM CDT) Pathologist [facility] POC Glucose 95 70 - 100 mg/dL [facility] Blood 02/17/2024 12:0 2 AM CDT Humphrey Rose MD LABORATORY Performing Organization Address City/[facility] Co de Phone Number [facility] [address] [place] [address], * (ABNORMAL) POC GLUCOSE (02/16/2024 6:18 PM CDT) POC Glucose 155(H) 70 - 100 mg/dL [facility] Blood 02/16/2024 6:18 PM CDT Humphrey Rose MD LABORATORY Performing Organization Address [facility] de Phone Number [facility] [address] [place] [id number], [place] * Paracentesis (02/16/2024 3:19 PM CDT) [...] to verify the correct patient, procedure, equipment, is support analyst and site/side marked as required. Initial or [...] PM CDT) Final Report No growth. [facility] Gram Stain Report PMN's seen. No organisms seen. [facility] Peritoneal Fluid PERITONEUM (SEROUS MEMBRANE) STRUCTURE / Unknown 02/16/2024 2:56 PM CDT 02/16/2024 3:54 PM CDT Francy Mc MD LAB MICROBIOLOG Y [facility] [address] [address] * BODY FLUID CELL COUNT/DIFF (02/16/2024 2:55 PM CDT) Fluid Type PT Peritoneal [facility] Comment:Normal reference ran ges have not been determined; clinical correlation is recommended. Volume PT Fluid 1,000 mL [facility] Appearance PT Clear [facility] Color bf Yellow [facility] Rbc PT Fluid <1,000 cells/ul [facility] Nuc Ct PT Fluid 167 cells/ul [facility] Neutrophil PT Fluid 16 % [facility] Lymphocytes PT Fluid 44 % [facility] Basophil PT Fluid 1 % [facility] MONO/MACS FL 33 % [facility] Other PT Fluid 6 % [facility] Comment:Others are mesotheli al cells. Peritoneal Fluid 02/16/2024 2:55 PM CDT 02/16/2024 3:43 PM CDT Francy Mc MD LABORATORY Performing Organization Address [facility] Co de Phone Number [facility] [address] [address] * (ABNORMAL) CBC WITH PLATELET (02/16/2024 8:12 AM CDT) WBC 5.95 4.00 - 10.00 k/cmm [facility] RBC 3.08(L) 3.90 - 5.20 m/cmm [facility] Hgb 9.3(L) 11.5 - 15.7 g/dL [facility] Hematocrit 29.4(L) 34.0 - 45.0 % [facility] MCV 95.5 80.0 - 100.0 fL [facility] MCH 30.2 25.0 - 32.0 pg [facility] MCHC 31.6 31.0 - 36.0 g/dL [facility] RDW 15.6(H) 11.5 - 14.5 % [facility] Plt 167 150 - 400 k/cmm [facility] MPV 10.2 6.5 - 12.5 fL [facility] Blood 02/16/2024 8:12 AM CDT 02/16/2024 8:54 AM CDT Ernestine Toribio MD LABORATORY Performing Organization Address City/[facility]/ZIP Co de Phone Number [facility] [address] [address] * (ABNORMAL) PANEL HEPATIC FUNCTION (02/16/2024 8:12 AM CDT) Total Protein 6.6 6.4 - 8.3 g/dL [facility] Albumin 2.2(L) 3.8 - 5.1 g/dL [facility] Bili Total 0.8 <=1.2 mg/dL [facility] Bili Direct 0.4(H) <=0.3 mg/dL [facility] Alk Phos 155(H) 35 - 104 IU/L [facility] Comment:No reference range e stablished for patients <18 years old. ALT (SGPT) <5 <=33 IU/L [facility] AST(SGOT) 42(H) 5 - 40 IU/L [facility] Blood 02/16/2024 8:12 AM CDT 02/16/2024 8:54 AM CDT Ernestine Toribio MD LABORATORY Performing Organization Address City/[facility] Co de Phone Number [facility] [address] [address] * (ABNORMAL) PROTHROMBIN (PT) & INR (02/16/2024 8:12 AM CDT) PT 16.0(H) 9.0 - 12.5 sec [facility] INR 1.4(H) 0.8 - 1.1 [facility] Comment: Warfarin Therapeutic Range: Standard Intensity: 2.0 - 3.0 High Intensity: 2.5 - 3.5 Blood 02/16/2024 8:12 AM CDT 02/16/2024 8:54 AM CDT Ernestine Toribio MD LABORATORY Performing Organization Address [facility] Co de Phone Number [facility] [address] [address] * MAGNESIUM (02/16/2024 8:12 AM CDT) Magnesium 2.0 1.6 - 2.6 mg/dL [facility] Blood 02/16/2024 8:12 AM CDT 02/16/2024 8:54 AM CDT Ernestine Toribio MD LABORATORY Performing Organization Address City/[facility]/ZIP Co de Phone Number [facility] [address] [address] * (ABNORMAL) PANEL BASIC METABOLIC (BMP) (02/16/2024 8:12 AM CDT) Sodium 129(L) 135 - 148 mEq/L [facility] Potassium 3.6 3.5 - 5.3 mEq/L [facility] Chloride 96 92 - 108 mEq/L [facility] CO2 26 22 - 30 mEq/L [facility] AnGap 7(L) 8 - 16 mEq/L [facility] Glucose 81 70 - 100 mg/dL [facility] BUN 18 6 - 20 mg/dL [facility] Creatinine 0.62 0.50 - 1.00 mg/dL [facility] Calcium 7.5(L) 8.6 - 10.0 mg/dL [facility] eGFR (2020 CKD-EPI) 103 >=60 ml/min/1.7 3m2 [facility] Comment: The estimated glomerular filtration rate [...] Toribio MD LABORATORY Performing Organization Address City/[facility]/ZIP Co de Phone Number [facility] [place] [address] * POC GLUCOSE (02/16/2024 6:35 AM CDT) POC Glucose 70 70 - 100 mg/dL [facility] Blood 02/16/2024 6:35 AM CDT Humphrey Rose MD LABORATORY [facility] [address] [place] [address] * POC GLUCOSE (02/15/2024 11:47 PM CDT) POC Glucose 82 70 - 100 mg/dL [facility] Blood 02/15/2024 11:4 7 PM CDT Humphrey Rose MD LABORATORY Performing Organization Address City/[facility]/ZIP Co de Phone Number [facility] [address] [place] [address], [place] * (ABNORMAL) POC GLUCOSE (02/15/2024 5:52 PM CDT) POC Glucose 167(H) 70 - 100 mg/dL [facility] Blood 02/15/2024 5:52 PM CDT Humphrey Rose MD LABORATORY Performing Organization Address [facility] Co de Phone Number [facility] [address] [place] [address], [place] * POC GLUCOSE (02/15/2024 1:21 PM CDT) POC Glucose 86 70 - 100 mg/dL [facility] Blood 02/15/2024 1:21 PM CDT Humphrey Rose MD LABORATORY Performing Organization Address [facility] Co de Phone Number [facility] [address] [place] [address], [place] * (ABNORMAL) POC GLUCOSE (02/15/2024 12:21 PM CDT) POC Glucose 66(L) 70 - 100 mg/dL [facility] Blood 02/15/2024 12:2 1 PM CDT Humphrey Rsoe MD LABORATORY Performing Organization Address City/[facility] Co de Phone Number [facility] [address] [place] [address], [place] * XR ABDOMEN 1 VIEW* (02/15/2024 [...] POC Glucose 86 70 - 100 mg/dL [facility] Blood 02/15/2024 10:4 6 AM CDT Humphrey Rose MD LABORATORY Performing Organization Address City/State/[facility] Co de Phone Number [facility] [address] [place] [address], * FLEXIBLE SIGMOIDOSCOPY (02/15/2024 9:55 AM CDT) 02/15/2024 9:55 AM CDT Narrative [facility] - 02/15/2024 11:22 AM CDT Gastroenterology Lab Patient Name: Cathy Raymond ?Procedure Date: 02/15/2024 9:55 AM ?Date of : 1965 Admit Type: Inpatient ? Age: 58 Gender: Female Procedure: ? Flexible Sigmoidoscopy Providers: ? Ugo Rincon, Raven Reyes RN, Toby Villarreal, Rheumatologist (Rheumatologist), Olesya Whipple (Fellow) Referring MD: ?Self Referral [...] procedure, including non-valencia portions. Ugo Rincon, , [id number] 02/15/2024 11:20:50 AM Olesya Whipple, , [id number] Number of Addenda: 0 Note Initiated On: 02/15/2024 9:55 AM Nataly Quinones PA-C GI LAB Performing Organization Address [facility] Co de Phone Number [facility] * MAGNESIUM (02/15/2024 6:48 AM CDT) Magnesium 2.2 1.6 - 2.6 mg/dL [facility] Blood 02/15/2024 6:48 AM CDT 02/15/2024 7:32 AM CDT Ernestine Toribio MD LABORATORY Performing Organization Address City/[facility]/ZIP Co de Phone Number [facility] [address] [address] * PHOSPHORUS (02/15/2024 6:48 AM CDT) Phosphorus 3.3 2.5 - 4.5 mg/dL [facility] Blood 02/15/2024 6:48 AM CDT 02/15/2024 7:32 AM CDT Ernestine Toribio MD LABORATORY Performing Organization Address [facility]/ZIP Co de Phone Number [facility] [address] [address] * (ABNORMAL) CBC WITH PLATELET (02/15/2024 6:48 AM CDT) WBC 5.76 4.00 - 10.00 k/cmm [facility] RBC 2.90(L) 3.90 - 5.20 m/cmm [facility] Hgb 8.9(L) 11.5 - 15.7 g/dL [facility] Hematocrit 28.4(L) 34.0 - 45.0 % [facility] MCV 97.9 80.0 - 100.0 fL [facility] MCH 30.7 25.0 - 32.0 pg [facility] MCHC 31.3 31.0 - 36.0 g/dL [facility] RDW 15.3(H) 11.5 - 14.5 % [facility] Plt 156 150 - 400 k/cmm [facility] MPV 10.3 6.5 - 12.5 fL [facility] Blood 02/15/2024 6:48 AM CDT 02/15/2024 7:49 AM CDT Ernestine Toribio MD LABORATORY Performing Organization Address City/[facility]/ZIP Co de Phone Number [facility] [address] [address] * (ABNORMAL) PROTHROMBIN (PT) & INR (02/15/2024 6:48 AM CDT) PT 15.5(H) 9.0 - 12.5 sec [facility] INR 1.4(H) 0.8 - 1.1 [facility] Comment: Warfarin Therapeutic Range: Standard Intensity: 2.0 - 3.0 High Intensity: 2.5 - 3.5 Blood 02/15/2024 6:48 AM CDT 02/15/2024 7:32 AM CDT Ernestine Toribio MD LABORATORY Performing Organization Address [facility] Co de Phone Number [facility] [address] [address] * (ABNORMAL) PANEL HEPATIC FUNCTION (02/15/2024 6:48 AM CDT) Total Protein 6.3(L) 6.4 - 8.3 g/dL [facility] Albumin 1.9(L) 3.8 - 5.1 g/dL [facility] Bili Total 0.7 <=1.2 mg/dL [facility] Bili Direct 0.3 <=0.3 mg/dL [facility] Alk Phos 144(H) 35 - 104 IU/L [facility] Comment:No reference range e stablished for patients <18 years old. ALT (SGPT) <5 <=33 IU/L [facility] AST(SGOT) 37 5 - 40 IU/L [facility] Blood 02/15/2024 6:48 AM CDT 02/15/2024 7:32 AM CDT Ernestine Toribio MD LABORATORY Performing Organization Address [facility] Co de Phone Number [facility] [address] [address] * (ABNORMAL) PANEL BASIC METABOLIC (BMP) (02/15/2024 6:48 AM CDT) Sodium 129(L) 135 - 148 mEq/L [facility] Potassium 4.1 3.5 - 5.3 mEq/L [facility] Chloride 97 92 - 108 mEq/L [facility] CO2 26 22 - 30 mEq/L [facility] AnGap 6(L) 8 - 16 mEq/L [facility] Glucose 80 70 - 100 mg/dL [facility] BUN 17 6 - 20 mg/dL [facility] Creatinine 0.60 0.50 - 1.00 mg/dL [facility] Calcium 7.7(L) 8.6 - 10.0 mg/dL [facility] eGFR (2020 CKD-EPI) 103 >=60 ml/min/1.7 3m2 [facility] Comment: The estimated glomerular filtration rate [...] Toribio MD LABORATORY Performing Organization Address City/[facility] Co de Phone Number [facility] [address] [place] [id number] * POC GLUCOSE (02/15/2024 6:04 AM CDT) POC Glucose 77 70 - 100 mg/dL [facility] Blood 02/15/2024 6:04 AM CDT Humphrey Rose MD LABORATORY Performing Organization Address [facility] Co de Phone Number [facility] [place] [address], * POC GLUCOSE (02/15/2024 12:06 AM CDT) POC Glucose 85 70 - 100 mg/dL [facility] Blood 02/15/2024 12:0 6 AM CDT Humphrey Rose MD LABORATORY Performing Organization Address [facility] Co de Phone Number [facility] [place] [address], * POC GLUCOSE (02/14/2024 9:02 PM CDT) POC Glucose 74 70 - 100 mg/dL [facility] Blood 02/14/2024 9:02 PM CDT Humphrey Rose MD LABORATORY Performing Organization Address City/[facility] Co de Phone Number [facility] [address] [place], [place] [address], * XR ABDOMEN 1 VIEW* (02/14/2024 7:08 [...] Lactate 1.1 0.7 - 2.1 mmol/L [facility] Blood 02/14/2024 5:01 PM CDT 02/14/2024 5:10 PM CDT Narrative [facility] - 02/14/2024 5:14 PM CDT Send specimen on ice! Ernestine Toribio MD LABORATORY [facility] [address] [place] [address] * POC GLUCOSE (02/14/2024 4:10 PM CDT) POC Glucose 92 70 - 100 mg/dL [facility] Blood 02/14/2024 4:10 PM CDT Humphrey Rose MD LABORATORY Performing Organization Address [facility] Co de Phone Number [facility] [address] [place] [address], [place] * POC GLUCOSE (02/14/2024 11:12 AM CDT) POC Glucose 85 70 - 100 mg/dL [facility] Blood 02/14/2024 11:1 2 AM CDT Humphrey Rose MD LABORATORY Performing Organization Address [facility] Co de Phone Number [facility] [address] [place] [address], [place] * XR ABDOMEN 1 VIEW* (02/14/2024 [...] * PHOSPHORUS (02/14/2024 8:18 AM CDT) Pathologist [facility] Phosphorus 3.5 2.5 - 4.5 mg/dL [facility] Blood 02/14/2024 8:18 AM CDT 02/14/2024 9:14 AM CDT Ernestine Toribio MD LABORATORY [facility] [address] [address] * MAGNESIUM (02/14/2024 8:18 AM CDT) [facility] Magnesium 2.1 1.6 - 2.6 mg/dL [facility] Blood 02/14/2024 8:18 AM CDT 02/14/2024 9:14 AM CDT Ernestine Toribio MD LABORATORY [facility] [address] [address] * (ABNORMAL) PROTHROMBIN (PT) & INR (02/14/2024 8:18 AM CDT) Pathologist [facility] PT 15.8(H) 9.0 - 12.5 sec [facility] INR 1.4(H) 0.8 - 1.1 [facility] Comment: Warfarin Therapeutic Range: Standard Intensity: 2.0 - 3.0 High Intensity: 2.5 - 3.5 Blood 02/14/2024 8:18 AM CDT 02/14/2024 9:13 AM CDT Ernestine Toribio MD LABORATORY Performing Organization Address [facility] Co de Phone Number [facility] [address] [address] * (ABNORMAL) CBC WITH PLATELET (02/14/2024 8:18 AM CDT) WBC 5.76 4.00 - 10.00 k/cmm [facility] RBC 3.00(L) 3.90 - 5.20 m/cmm [facility] Hgb 9.1(L) 11.5 - 15.7 g/dL [facility] Hematocrit 29.5(L) 34.0 - 45.0 % [facility] MCV 98.3 80.0 - 100.0 fL [facility] MCH 30.3 25.0 - 32.0 pg [facility] MCHC 30.8(L) 31.0 - 36.0 g/dL [facility] RDW 15.4(H) 11.5 - 14.5 % [facility] Plt 166 150 - 400 k/cmm [facility] MPV 10.0 6.5 - 12.5 fL [facility] Blood 02/14/2024 8:18 AM CDT 02/14/2024 9:14 AM CDT Ernestine Toribio MD LABORATORY Performing Organization Address [facility] Co de Phone Number [facility] [address] [address] * (ABNORMAL) PANEL HEPATIC FUNCTION (02/14/2024 8:18 AM CDT) Total Protein 6.6 6.4 - 8.3 g/dL [facility] Albumin 2.0(L) 3.8 - 5.1 g/dL [facility] Bili Total 0.8 <=1.2 mg/dL [facility] Bili Direct 0.3 <=0.3 mg/dL [facility] Alk Phos 146(H) 35 - 104 IU/L [facility] Comment:No reference range e stablished for patients <18 years old. ALT (SGPT) <5 <=33 IU/L [facility] AST(SGOT) 41(H) 5 - 40 IU/L [facility] Blood 02/14/2024 8:18 AM CDT 02/14/2024 9:14 AM CDT Ernestine Toribio MD LABORATORY Performing Organization Address [facility] Co de Phone Number [facility] [address] [address] * (ABNORMAL) PANEL BASIC METABOLIC (BMP) (02/14/2024 8:18 AM CDT) [facility] Sodium 128(L) 135 - 148 mEq/L [facility] Potassium 3.9 3.5 - 5.3 mEq/L [facility] Chloride 95 92 - 108 mEq/L [facility] CO2 25 22 - 30 mEq/L [facility] AnGap 8 8 - 16 mEq/L [facility] Glucose 78 70 - 100 mg/dL [facility] BUN 16 6 - 20 mg/dL [facility] Creatinine 0.58 0.50 - 1.00 mg/dL [facility] Calcium 7.6(L) 8.6 - 10.0 mg/dL [facility] eGFR (2020 CKD-EPI) 104 >=60 ml/min/1.7 3m2 [facility] Comment: The estimated glomerular filtration rate (eGFR) was calculated using the CKD-EPI 2020 creatinine equation, which does not include race as a factor. This equation is validated in individuals 18 years of age and older, and eGFR is normalized to a body surface area of 1.73m^2. Blood 02/14/2024 8:18 AM CDT 02/14/2024 9:14 AM CDT Ernestine Toribio MD LABORATORY Performing Organization Address [facility] Co de Phone Number [facility] [address] [address] * POC GLUCOSE (02/14/2024 6:07 AM CDT) [facility] POC Glucose 75 70 - 100 mg/dL [facility] Blood 02/14/2024 6:07 AM CDT Humphrey Rose MD LABORATORY [facility] [address] [place] [address], [place] * POC GLUCOSE (02/13/2024 11:59 PM CDT) POC Glucose 93 70 - 100 mg/dL [facility] Blood 02/13/2024 11:5 9 PM CDT Humphrey Rose MD LABORATORY Performing Organization Address City/[facility]/ZIP Co de Phone Number [facility] [address] [place] [address], [place] * (ABNORMAL) POC GLUCOSE (02/13/2024 6:06 PM CDT) POC Glucose 108(H) 70 - 100 mg/dL [facility] Blood 02/13/2024 6:06 PM CDT Humphrey Rose MD LABORATORY Performing Organization Address City/[facility] Co de Phone Number [facility] [address] [place] [address], [place] * POC GLUCOSE (02/13/2024 11:46 AM CDT) POC Glucose 90 70 - 100 mg/dL [facility] Blood 02/13/2024 11:4 6 AM CDT Humphrey Rose MD LABORATORY [facility] [address] [place] [address], [place] * (ABNORMAL) CBC WITH PLATELET (02/13/2024 9:06 AM CDT) Pathologist [facility] WBC 4.84 4.00 - 10.00 k/cmm [facility] RBC 2.96(L) 3.90 - 5.20 m/cmm [facility] Hgb 8.9(L) 11.5 - 15.7 g/dL [facility] Hematocrit 28.1(L) 34.0 - 45.0 % [facility] MCV 94.9 80.0 - 100.0 fL [facility] MCH 30.1 25.0 - 32.0 pg [facility] MCHC 31.7 31.0 - 36.0 g/dL [facility] RDW 15.4(H) 11.5 - 14.5 % [facility] Plt 174 150 - 400 k/cmm [facility] MPV 9.9 6.5 - 12.5 fL [facility] Blood 02/13/2024 9:06 AM CDT 02/13/2024 9:28 AM CDT Ernestine Toribio MD LABORATORY [facility] [address] [address] * (ABNORMAL) PANEL BASIC METABOLIC (BMP) (02/13/2024 9:06 AM CDT) Pathologist [facility] Sodium 131(L) 135 - 148 mEq/L [facility] Potassium 3.8 3.5 - 5.3 mEq/L [facility] Chloride 97 92 - 108 mEq/L [facility] CO2 27 22 - 30 mEq/L [facility] AnGap 7(L) 8 - 16 mEq/L [facility] Glucose 87 70 - 100 mg/dL [facility] BUN 16 6 - 20 mg/dL [facility] Creatinine 0.60 0.50 - 1.00 mg/dL [facility] Calcium 7.5(L) 8.6 - 10.0 mg/dL [facility] eGFR (2020 CKD-EPI) 103 >=60 ml/min/1.7 3m2 [facility] Comment: The estimated glomerular filtration rate (eGFR) was calculated using the CKD-EPI 2020 creatinine equation, which does not include race as a factor. This equation is validated in individuals 18 years of age and older, and eGFR is normalized to a body surface area of 1.73m^2. Blood 02/13/2024 9:06 AM CDT 02/13/2024 9:28 AM CDT Ernestine Toribio MD LABORATORY Performing Organization Address [facility]/ZIP Co de Phone Number [facility] [address] [address] * (ABNORMAL) PANEL HEPATIC FUNCTION (02/13/2024 9:06 AM CDT) Total Protein 6.4 6.4 - 8.3 g/dL [facility] Albumin 2.1(L) 3.8 - 5.1 g/dL [facility] Bili Total 0.9 <=1.2 mg/dL [facility] Bili Direct 0.4(H) <=0.3 mg/dL [facility] Alk Phos 142(H) 35 - 104 IU/L [facility] Comment:No reference range e stablished for patients <18 years old. ALT (SGPT) <5 <=33 IU/L [facility] AST(SGOT) 36 5 - 40 IU/L [facility] Blood 02/13/2024 9:06 AM CDT 02/13/2024 9:28 AM CDT Ernestine Toribio MD LABORATORY Performing Organization Address [facility] Co de Phone Number [facility] [address] [id number] * POC GLUCOSE (02/13/2024 6:07 AM CDT) POC Glucose 83 70 - 100 mg/dL [facility] Blood 02/13/2024 6:07 AM CDT Humphrey Rose MD LABORATORY [facility] [address] [place] [id number], * POC GLUCOSE (02/13/2024 12:05 AM CDT) POC Glucose 88 70 - 100 mg/dL [facility] Blood 02/13/2024 12:0 5 AM CDT Humphrey Rose MD LABORATORY Performing Organization Address [facility] Co de Phone Number [facility] PO[facility] [address] [place] [id number], [place] * LACTATE (LACTIC ACID) (02/12/2024 8:15 PM CDT) Lactate 2.0 0.7 - 2.1 mmol/L [facility] Blood 02/12/2024 8:15 PM CDT 02/12/2024 8:36 PM CDT Narrative [facility] - 02/12/2024 8:41 PM CDT Send specimen on ice! Ernestine Toribio MD LABORATORY Performing Organization Address [facility] Co de Phone Number [facility] [address] [address] * (ABNORMAL) POC GLUCOSE (02/12/2024 5:56 PM CDT) POC Glucose 110(H) 70 - 100 mg/dL [facility] [facility] Blood 02/12/2024 5:56 PM CDT Humphrey Rose MD LABORATORY Performing Organization Address [facility] Co de Phone Number [facility] [address] [place] [address], [place] * LACTATE (LACTIC ACID) (02/12/2024 2:45 PM CDT) Lactate 2.1 0.7 - 2.1 mmol/L [facility] Blood 02/12/2024 2:45 PM CDT 02/12/2024 3:00 PM CDT Narrative [facility] - 02/12/2024 3:05 PM CDT Send specimen on ice! Khloe Reyes PA-C LABORATORY [facility] [address] [place] [id number] * POC GLUCOSE (02/12/2024 12:49 PM CDT) POC Glucose 93 70 - 100 mg/dL [facility] Blood 02/12/2024 12:4 9 PM CDT Humphrey Rose MD LABORATORY Performing Organization Address City/[facility] Co de Phone Number [facility] [address] [place] [address], [place] * (ABNORMAL) POC GLUCOSE (02/12/2024 12:20 PM CDT) POC Glucose 64(L) 70 - 100 mg/dL [facility] Blood 02/12/2024 12:2 0 PM CDT Humphrey Rose MD LABORATORY Performing Organization Address [facility] Co de Phone Number [facility] [place] [address], [place] * XR ABDOMEN 1 VIEW* (02/12/2024 [...] LACTATE (LACTIC ACID) (02/12/2024 8:50 AM CDT) [facility] Lactate 1.6 0.7 - 2.1 mmol/L [facility] Blood 02/12/2024 8:50 AM CDT 02/12/2024 9:13 AM CDT Narrative [facility] - 02/12/2024 9:20 AM CDT Send specimen on ice! Khloe Reyes PA-C LABORATORY Performing Organization Address City/[facility]/ZIP Co de Phone Number [facility] [address] [address] * (ABNORMAL) CBC WITH PLATELET (02/12/2024 8:50 AM CDT) [facility] WBC 5.15 4.00 - 10.00 k/cmm [facility] RBC 3.11(L) 3.90 - 5.20 m/cmm [facility] Hgb 9.4(L) 11.5 - 15.7 g/dL [facility] Hematocrit 29.4(L) 34.0 - 45.0 % [facility] MCV 94.5 80.0 - 100.0 fL [facility] MCH 30.2 25.0 - 32.0 pg [facility] MCHC 32.0 31.0 - 36.0 g/dL [facility] RDW 15.5(H) 11.5 - 14.5 % [facility] Plt 199 150 - 400 k/cmm [facility] MPV 9.7 6.5 - 12.5 fL [facility] Blood 02/12/2024 8:50 AM CDT 02/12/2024 9:10 AM CDT Ernestine Toribio MD LABORATORY [facility] [address] [address] * (ABNORMAL) PROTHROMBIN (PT) & INR (02/12/2024 8:50 AM CDT) [facility] PT 18.7(H) 9.0 - 12.5 sec [facility] INR 1.7(H) 0.8 - 1.1 [facility] Comment: Warfarin Therapeutic Range: Standard Intensity: 2.0 - 3.0 High Intensity: 2.5 - 3.5 Blood 02/12/2024 8:50 AM CDT 02/12/2024 9:10 AM CDT Ernestine Toribio MD LABORATORY Performing Organization Address [facility] Co de Phone Number [facility] [address] [address] * (ABNORMAL) PANEL HEPATIC FUNCTION (02/12/2024 8:50 AM CDT) [facility] Total Protein 6.7 6.4 - 8.3 g/dL [facility] Albumin 2.3(L) 3.8 - 5.1 g/dL [facility] Bili Total 0.9 <=1.2 mg/dL [facility] Bili Direct 0.4(H) <=0.3 mg/dL [facility] Alk Phos 131(H) 35 - 104 IU/L [facility] Comment:No reference range e stablished for patients <18 years old. ALT (SGPT) <5 <=33 IU/L [facility] AST(SGOT) 35 5 - 40 IU/L [facility] Blood 02/12/2024 8:50 AM CDT 02/12/2024 9:10 AM CDT Ernestine Toribio MD LABORATORY Performing Organization Address [facility] Co de Phone Number [facility] [address] [address] * (ABNORMAL) PANEL BASIC METABOLIC (BMP) (02/12/2024 8:50 AM CDT) [facility] Sodium 130(L) 135 - 148 mEq/L [facility] Potassium 4.1 3.5 - 5.3 mEq/L [facility] Chloride 97 92 - 108 mEq/L [facility] CO2 27 22 - 30 mEq/L [facility] AnGap 6(L) 8 - 16 mEq/L [facility] Glucose 78 70 - 100 mg/dL [facility] BUN 16 6 - 20 mg/dL [facility] Creatinine 0.56 0.50 - 1.00 mg/dL [facility] Calcium 7.9(L) 8.6 - 10.0 mg/dL [facility] eGFR (2020 CKD-EPI) 105 >=60 ml/min/1.7 3m2 [facility] Comment: The estimated glomerular filtration rate (eGFR) was calculated using the CKD-EPI 2020 creatinine equation, which does not include race as a factor. This equation is validated in individuals 18 years of age and older, and eGFR is normalized to a body surface area of 1.73m^2. Blood 02/12/2024 8:50 AM CDT 02/12/2024 9:10 AM CDT Ernestine Toribio MD LABORATORY [facility] [place] [address] * POC GLUCOSE (02/12/2024 6:52 AM CDT) POC Glucose 73 70 - 100 mg/dL [facility] Blood 02/12/2024 6:52 AM CDT Humphrey Rose MD LABORATORY Performing Organization Address City/[facility]/ZIP Co de Phone Number [facility] [address] [place] [address] * LACTATE (LACTIC ACID) (02/12/2024 2:54 AM CDT) Lactate 1.4 0.7 - 2.1 mmol/L [facility] Blood 02/12/2024 2:54 AM CDT 02/12/2024 3:08 AM CDT Narrative [facility] - 02/12/2024 3:12 AM CDT Send specimen on ice! Khloe Reyes PA-C LABORATORY [facility] [address] [place] [address] * POC GLUCOSE (02/11/2024 10:43 PM CDT) POC Glucose 94 70 - 100 mg/dL [facility] Blood 02/11/2024 10:4 3 PM CDT Humphrey Rose MD LABORATORY [facility] [address] [place] [address], [place] * COLONOSCOPY-DIAGNOSTIC (02/11/2024 9:24 PM CDT) 02/11/2024 9:24 PM CDT Narrative [facility] - 02/11/2024 10:18 PM CDT Gastroenterology [...] bowel preparation was evaluated using the BBPS ([place] Bowel Preparation Scale) with scores of: Right [...] previous GI consult note. Lukas Lambert MD, [id number] 02/11/2024 10:16:48 PM Number of Addenda: 0 Note Initiated On: 02/11/2024 9:24 PM Lukas Lambert MD GI LAB Performing Organization Address City/[facility]/ZIP Co de Phone Number [facility] * LACTATE (LACTIC ACID) (02/11/2024 8:51 PM CDT) Lactate 1.3 0.7 - 2.1 mmol/L [facility] Blood 02/11/2024 8:51 PM CDT 02/11/2024 8:57 PM CDT Narrative [facility] - 02/11/2024 9:00 PM CDT Send specimen on ice! Khloe Reyes PA-C LABORATORY Performing Organization Address [facility] Co de Phone Number [facility] [address] [address] * LACTATE (LACTIC ACID) (02/11/2024 7:56 PM CDT) Lactate 1.5 0.7 - 2.1 mmol/L [facility] Blood 02/11/2024 7:56 PM CDT 02/11/2024 8:25 PM CDT Narrative [facility] - 02/11/2024 8:28 PM CDT Send specimen on ice! 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 2.Liver cirrhosis with splenomegaly and [...] prior CT.. Reading Radiologist: Sameer Sexton Ernestine Troibio MD RAD XRAY * (ABNORMAL) PANEL HEPATIC FUNCTION (02/11/2024 7:25 AM CDT) Total Protein 6.3(L) 6.4 - 8.3 g/dL [facility] Albumin 2.3(L) 3.8 - 5.1 g/dL [facility] Bili Total 0.9 <=1.2 mg/dL [facility] Bili Direct 0.4(H) <=0.3 mg/dL [facility] Alk Phos 126(H) 35 - 104 IU/L [facility] Comment:No reference range e stablished for patients <18 years old. ALT (SGPT) <5 <=33 IU/L [facility] AST(SGOT) 34 5 - 40 IU/L [facility] Blood 02/11/2024 7:25 AM CDT 02/11/2024 8:01 AM CDT Ernestine Toribio MD LABORATORY Performing Organization Address [facility] Co de Phone Number [facility] [address] [address] * (ABNORMAL) PROTHROMBIN (PT) & INR (02/11/2024 7:25 AM CDT) PT 23.0(H) 9.0 - 12.5 sec [facility] INR 2.0(H) 0.8 - 1.1 [facility] Comment: Warfarin Therapeutic Range: Standard Intensity: 2.0 - 3.0 High Intensity: 2.5 - 3.5 Blood 02/11/2024 7:25 AM CDT 02/11/2024 8:01 AM CDT Ernestine Toribio MD LABORATORY Performing Organization Address [facility] Co de Phone Number [facility] [address] [address] * (ABNORMAL) CBC WITH PLATELET (02/11/2024 7:25 AM CDT) WBC 5.83 4.00 - 10.00 k/cmm [facility] RBC 2.94(L) 3.90 - 5.20 m/cmm [facility] Hgb 8.8(L) 11.5 - 15.7 g/dL [facility] Hematocrit 28.0(L) 34.0 - 45.0 % [facility] MCV 95.2 80.0 - 100.0 fL [facility] MCH 29.9 25.0 - 32.0 pg [facility] MCHC 31.4 31.0 - 36.0 g/dL [facility] RDW 15.3(H) 11.5 - 14.5 % [facility] Plt 197 150 - 400 k/cmm [facility] MPV 10.0 6.5 - 12.5 fL [facility] Blood 02/11/2024 7:25 AM CDT 02/11/2024 8:01 AM CDT Ernestine Toribio MD LABORATORY Performing Organization Address [facility]/ZIP Co de Phone Number [facility] [address] [address] * (ABNORMAL) PANEL BASIC METABOLIC (BMP) (02/11/2024 7:25 AM CDT) CO2 28 22 - 30 mEq/L [facility] Glucose 84 70 - 100 mg/dL [facility] BUN 15 6 - 20 mg/dL [facility] Creatinine 0.56 0.50 - 1.00 mg/dL [facility] Calcium 7.6(L) 8.6 - 10.0 mg/dL [facility] Sodium 132(L) 135 - 148 mEq/L [facility] Potassium 4.2 3.5 - 5.3 mEq/L [facility] Chloride 98 92 - 108 mEq/L [facility] AnGap 6(L) 8 - 16 mEq/L [facility] eGFR (2020 CKD-EPI) 105 >=60 ml/min/1.7 3m2 [facility] Comment: The estimated glomerular filtration rate (eGFR) was calculated using the CKD-EPI 2020 creatinine equation, which does not include race as a factor. This equation is validated in individuals 18 years of age and older, and eGFR is normalized to a body surface area of 1.73m^2. Blood 02/11/2024 7:25 AM CDT 02/11/2024 8:01 AM CDT Ernestine Toribio MD LABORATORY Performing Organization Address [facility] Co de Phone Number [facility] [address] [address] * MAGNESIUM (02/11/2024 7:20 AM CDT) Magnesium 2.0 1.6 - 2.6 mg/dL [facility] Blood 02/11/2024 7:20 AM CDT 02/11/2024 7:42 PM CDT Ernestine Toribio MD LABORATORY Performing Organization Address [facility]/ZIP Co de Phone Number [facility] [address] [address] * PHOSPHORUS (02/11/2024 7:20 AM CDT) Phosphorus 3.3 2.5 - 4.5 mg/dL [facility] Blood 02/11/2024 7:20 AM CDT 02/11/2024 7:42 PM CDT Ernestine Toribio MD LABORATORY Performing Organization Address [facility] de Phone Number [facility] [address] [address] * (ABNORMAL) PANEL HEPATIC FUNCTION (02/10/2024 7:06 AM CDT) Total Protein 6.6 6.4 - 8.3 g/dL [facility] Albumin 2.4(L) 3.8 - 5.1 g/dL [facility] Bili Total 1.0 <=1.2 mg/dL [facility] Bili Direct 0.4(H) <=0.3 mg/dL [facility] Alk Phos 132(H) 35 - 104 IU/L [facility] Comment:No reference range e stablished for patients <18 years old. ALT (SGPT) <5 <=33 IU/L [facility] AST(SGOT) 36 5 - 40 IU/L [facility] Blood 02/10/2024 7:06 AM CDT 02/10/2024 7:48 AM CDT Ernestine Toribio MD LABORATORY Performing Organization Address [facility] de Phone Number [facility] [address] [address] * (ABNORMAL) PROTHROMBIN (PT) & INR (02/10/2024 7:06 AM CDT) PT 28.4(H) 9.0 - 12.5 sec [facility] INR 2.5(H) 0.8 - 1.1 [facility] Comment: Warfarin Therapeutic Range: Standard Intensity: 2.0 - 3.0 High Intensity: 2.5 - 3.5 Blood 02/10/2024 7:06 AM CDT 02/10/2024 7:48 AM CDT Ernestine Toribio MD LABORATORY Performing Organization Address City/[facility]/ZIP Co de Phone Number [facility] [address] [address] * (ABNORMAL) CBC WITH PLATELET (02/10/2024 7:06 AM CDT) WBC 6.87 4.00 - 10.00 k/cmm [facility] RBC 3.11(L) 3.90 - 5.20 m/cmm [facility] Hgb 9.2(L) 11.5 - 15.7 g/dL [facility] Hematocrit 29.8(L) 34.0 - 45.0 % [facility] MCV 95.8 80.0 - 100.0 fL [facility] MCH 29.6 25.0 - 32.0 pg [facility] MCHC 30.9(L) 31.0 - 36.0 g/dL [facility] RDW 14.9(H) 11.5 - 14.5 % [facility] Plt 221 150 - 400 k/cmm [facility] MPV 10.1 6.5 - 12.5 fL [facility] Blood 02/10/2024 7:06 AM CDT 02/10/2024 7:48 AM CDT Ernestine Toribio MD LABORATORY Performing Organization Address [facility]/ZIP Co de Phone Number [facility] [address] [address] * MAGNESIUM (02/10/2024 7:06 AM CDT) Magnesium 2.1 1.6 - 2.6 mg/dL [facility] Blood 02/10/2024 7:06 AM CDT 02/10/2024 7:48 AM CDT Ernestine Toribio MD LABORATORY Performing Organization Address City/[facility]/ZIP Co de Phone Number [facility] [address] [address] * (ABNORMAL) PANEL BASIC METABOLIC (BMP) (02/10/2024 7:06 AM CDT) CO2 26 22 - 30 mEq/L [facility] Glucose 83 70 - 100 mg/dL [facility] BUN 14 6 - 20 mg/dL [facility] Creatinine 0.53 0.50 - 1.00 mg/dL [facility] Calcium 7.9(L) 8.6 - 10.0 mg/dL [facility] Sodium 132(L) 135 - 148 mEq/L [facility] Potassium 4.0 3.5 - 5.3 mEq/L [facility] Chloride 99 92 - 108 mEq/L [facility] AnGap 7(L) 8 - 16 mEq/L [facility] eGFR (2020 CKD-EPI) 106 >=60 ml/min/1.7 3m2 [facility] Comment: The estimated glomerular filtration rate (eGFR) was calculated using the CKD-EPI 2020 creatinine equation, which does not include race as a factor. This equation is validated in individuals 18 years of age and older, and eGFR is normalized to a body surface area of 1.73m^2. Blood 02/10/2024 7:06 AM CDT 02/10/2024 7:48 AM CDT Ernestine Toribio MD LABORATORY [address] [address] * VITAMIN D (25-OH) (02/10/2024 7:06 AM CDT) Vitamin D Total 25 Hydroxy 66 21 - 70 ng/mL [facility] Comment: Result Interpretation: <=20 ng/mL ?? Vitamin D Deficient 21-29 ng/mL ??Vitamin D Insufficient Blood 02/10/2024 7:06 AM CDT 02/10/2024 7:48 AM CDT Ileana Blanco APRN, CNP LABORATORY [facility] [address] [address] * POC GLUCOSE (02/10/2024 6:15 AM CDT) POC Glucose 91 70 - 100 mg/dL [facility] Blood 02/10/2024 6:15 AM CDT Humphrey Rose MD LABORATORY Performing Organization Address City/[facility] Co de Phone Number [facility] [address] [place] [address], [place] * POC GLUCOSE (02/09/2024 11:04 PM CDT) POC Glucose 90 70 - 100 mg/dL [facility] Blood 02/09/2024 11:0 4 PM CDT Humphrey Rose MD LABORATORY Performing Organization Address City/[facility] Co de Phone Number [facility] [address] [place] [address], [place] * POC GLUCOSE (02/09/2024 6:42 AM CDT) POC Glucose 85 70 - 100 mg/dL [facility] Blood 02/09/2024 6:42 AM CDT Humphrey Rose MD LABORATORY Performing Organization Address City/[facility] Co de Phone Number [facility] [address] [place] [address], [place] * POC GLUCOSE (02/08/2024 11:51 PM CDT) POC Glucose 94 70 - 100 mg/dL [facility] Blood 02/08/2024 11:5 1 PM CDT Humphrey Rose MD LABORATORY [facility] [address] [place] [address], [place] * (ABNORMAL) POC GLUCOSE (02/08/2024 5:58 PM CDT) POC Glucose 135(H) 70 - 100 mg/dL [facility] Blood 02/08/2024 5:58 PM CDT Humphrey Rose MD LABORATORY Performing Organization Address [facility] Co de Phone Number [facility] [address] [place] [address], [place] * POC GLUCOSE (02/08/2024 12:30 PM CDT) POC Glucose 82 70 - 100 mg/dL [facility] Blood 02/08/2024 12:3 0 PM CDT Humphrey Rose MD LABORATORY Performing Organization Address [facility] Co de Phone Number [facility] PO[facility] [address] [place] [address], [place] * IR PARACENTESIS (02/08/2024 11:45 AM [...] to verify the correct patient, procedure, equipment, is support analyst and site/side marked as required. Initial or [...] PT 29.3(H) 9.0 - 12.5 sec [facility] INR 2.6(H) 0.8 - 1.1 [facility] Comment: Warfarin Therapeutic Range: Standard Intensity: 2.0 - 3.0 High Intensity: 2.5 - 3.5 Blood 02/08/2024 8:19 AM CDT 02/08/2024 8:35 AM CDT Autumn Jerome MD LABORATORY Performing Organization Address [facility] Co de Phone Number [facility] [address] [address] * (ABNORMAL) PANEL HEPATIC FUNCTION (02/08/2024 8:19 AM CDT) Total Protein 6.1(L) 6.4 - 8.3 g/dL [facility] Albumin 2.5(L) 3.8 - 5.1 g/dL [facility] Bili Total 1.0 <=1.2 mg/dL [facility] Bili Direct 0.5(H) <=0.3 mg/dL [facility] Alk Phos 125(H) 35 - 104 IU/L [facility] Comment:No reference range e stablished for patients <18 years old. ALT (SGPT) 6 <=33 IU/L [facility] AST(SGOT) 30 5 - 40 IU/L [facility] Blood 02/08/2024 8:19 AM CDT 02/08/2024 8:35 AM CDT Autumn Jerome MD LABORATORY Performing Organization Address [facility] de Phone Number [facility] [address] [address] * (ABNORMAL) PANEL BASIC METABOLIC (BMP) (02/08/2024 8:19 AM CDT) Sodium 134(L) 135 - 148 mEq/L [facility] Potassium 3.8 3.5 - 5.3 mEq/L [facility] CO2 29 22 - 30 mEq/L [facility] AnGap 5(L) 8 - 16 mEq/L [facility] Glucose 91 70 - 100 mg/dL [facility] BUN 9 6 - 20 mg/dL [facility] Creatinine 0.59 0.50 - 1.00 mg/dL [facility] Chloride 100 92 - 108 mEq/L [facility] Calcium 8.1(L) 8.6 - 10.0 mg/dL [facility] eGFR (2020 CKD-EPI) 104 >=60 ml/min/1.7 3m2 [facility] Comment: The estimated glomerular filtration rate [...] Jerome MD LABORATORY Performing Organization Address City/[facility]/ZIP Co de Phone Number [facility] [address] [place] [address] * (ABNORMAL) POC GLUCOSE (02/07/2024 6:41 PM CDT) POC Glucose 134(H) 70 - 100 mg/dL [facility] Blood 02/07/2024 6:41 PM CDT Humphrey Rose MD LABORATORY Performing Organization Address City/[facility] Co de Phone Number [facility] [address] [place] [address], [place] * POC GLUCOSE (02/07/2024 12:24 PM CDT) POC Glucose 99 70 - 100 mg/dL [facility] Blood 02/07/2024 12:2 4 PM CDT Humphrey Rose MD LABORATORY Performing Organization Address City/[facility] Co de Phone Number [facility] [address] [place], [place] [id number], * PHOSPHORUS (02/07/2024 6:05 AM CDT) Phosphorus 3.2 2.5 - 4.5 mg/dL [facility] Blood 02/07/2024 6:05 AM CDT 02/07/2024 7:28 AM CDT Autumn Jerome MD LABORATORY Performing Organization Address City/[facility]/ZIP Co de Phone Number [facility] [address] [address] * MAGNESIUM (02/07/2024 6:05 AM CDT) Magnesium 2.0 1.6 - 2.6 mg/dL [facility] Blood 02/07/2024 6:05 AM CDT 02/07/2024 7:28 AM CDT Autumn Jerome MD LABORATORY Performing Organization Address [facility] Co de Phone Number [facility] [address] [address] * (ABNORMAL) PANEL HEPATIC FUNCTION (02/07/2024 6:05 AM CDT) Total Protein 5.7(L) 6.4 - 8.3 g/dL [facility] Albumin 2.3(L) 3.8 - 5.1 g/dL [facility] Bili Total 0.9 <=1.2 mg/dL [facility] Bili Direct na <=0.3 mg/dL [facility] Comment:BILID = 0.4. Accurac y of result suspect due to hemolysis. Alk Phos 116(H) 35 - 104 IU/L [facility] Comment:No reference range e stablished for patients <18 years old. ALT (SGPT) 9 <=33 IU/L [facility] AST(SGOT) na 5 - 40 IU/L [facility] Comment:AST = 37. Accuracy o f result suspect due to hemolysis. Blood 02/07/2024 6:05 AM CDT 02/07/2024 7:28 AM CDT Autumn Jerome MD LABORATORY Performing Organization Address [facility] Co de Phone Number [facility] [address] [address] * (ABNORMAL) CBC WITH PLATELET (02/07/2024 6:05 AM CDT) WBC 9.53 4.00 - 10.00 k/cmm [facility] RBC 3.19(L) 3.90 - 5.20 m/cmm [facility] Hgb 9.5(L) 11.5 - 15.7 g/dL [facility] Hematocrit 29.8(L) 34.0 - 45.0 % [facility] MCV 93.4 80.0 - 100.0 fL [facility] MCH 29.8 25.0 - 32.0 pg [facility] MCHC 31.9 31.0 - 36.0 g/dL [facility] RDW 13.7 11.5 - 14.5 % [facility] Plt 149(L) 150 - 400 k/cmm [facility] MPV 11.1 6.5 - 12.5 fL [facility] NRBC 0.3(H) 0.0 - 0.0 /100WBC [facility] Blood 02/07/2024 6:05 AM CDT 02/07/2024 7:26 AM CDT Autumn Jerome MD LABORATORY [facility] [address] [address] * (ABNORMAL) PANEL BASIC METABOLIC (BMP) (02/07/2024 6:05 AM CDT) CO2 23 22 - 30 mEq/L [facility] AnGap 10 8 - 16 mEq/L [facility] Glucose 87 70 - 100 mg/dL [facility] Creatinine 0.58 0.50 - 1.00 mg/dL [facility] Potassium 5.2 3.5 - 5.3 mEq/L [facility] eGFR (2020 CKD-EPI) 104 >=60 ml/min/1.7 3m2 [facility] Comment: The estimated glomerular filtration rate (eGFR) was calculated using the CKD-EPI 2020 creatinine equation, which does not include race as a factor. This equation is validated in individuals 18 years of age and older, and eGFR is normalized to a body surface area of 1.73m^2. Sodium 135 135 - 148 mEq/L [facility] BUN 11 6 - 20 mg/dL [facility] Calcium 7.9(L) 8.6 - 10.0 mg/dL [facility] Chloride 102 92 - 108 mEq/L [facility] Blood 02/07/2024 6:05 AM CDT 02/07/2024 7:28 AM CDT Autumn Jerome MD LABORATORY Performing Organization Address City/[facility]/ZIP Co de Phone Number [facility] [address] [place] [address] * (ABNORMAL) POC GLUCOSE (02/06/2024 6:08 PM CDT) POC Glucose 124(H) 70 - 100 mg/dL [facility] Blood 02/06/2024 6:08 PM CDT Humphrey Rose MD LABORATORY Performing Organization Address [facility] Co de Phone Number [facility] [address] [place] [address], [place] * POC GLUCOSE (02/06/2024 11:57 AM CDT) POC Glucose 98 70 - 100 mg/dL [facility] Blood 02/06/2024 11:5 7 AM CDT Humphrey Rose MD LABORATORY Performing Organization Address [facility] Co de Phone Number [facility] [address] [place] [address], * (ABNORMAL) PROTHROMBIN (PT) & INR (02/06/2024 7:10 AM CDT) PT 18.3(H) 9.0 - 12.5 sec [facility] INR 1.6(H) 0.8 - 1.1 [facility] Comment: Warfarin Therapeutic Range: Standard Intensity: 2.0 - 3.0 High Intensity: 2.5 - 3.5 Blood 02/06/2024 7:10 AM CDT 02/06/2024 7:28 AM CDT Autumn Jerome MD LABORATORY Performing Organization Address City/[facility] Co de Phone Number [facility] [address] [address] * (ABNORMAL) PANEL HEPATIC FUNCTION (02/06/2024 7:10 AM CDT) [facility] Total Protein 5.6(L) 6.4 - 8.3 g/dL [facility] Albumin 2.3(L) 3.8 - 5.1 g/dL [facility] Bili Total 0.8 <=1.2 mg/dL [facility] Bili Direct 0.4(H) <=0.3 mg/dL [facility] Alk Phos 101 35 - 104 IU/L [facility] Comment:No reference range e stablished for patients <18 years old. ALT (SGPT) 12 <=33 IU/L [facility] AST(SGOT) 33 5 - 40 IU/L [facility] Blood 02/06/2024 7:10 AM CDT 02/06/2024 7:28 AM CDT Barimendezu Shira Jerome MD LABORATORY Performing Organization Address [facility] de Phone Number [facility] [address] [address] * (ABNORMAL) PANEL BASIC METABOLIC (BMP) (02/06/2024 7:10 AM CDT) [facility] CO2 26 22 - 30 mEq/L [facility] AnGap 5(L) 8 - 16 mEq/L [facility] Glucose 105(H) 70 - 100 mg/dL [facility] Creatinine 0.61 0.50 - 1.00 mg/dL [facility] Sodium 135 135 - 148 mEq/L [facility] Potassium 4.4 3.5 - 5.3 mEq/L [facility] eGFR (2020 CKD-EPI) 103 >=60 ml/min/1.7 3m2 [facility] Comment: The estimated glomerular filtration rate (eGFR) was calculated using the CKD-EPI 2020 creatinine equation, which does not include race as a factor. This equation is validated in individuals 18 years of age and older, and eGFR is normalized to a body surface area of 1.73m^2. BUN 11 6 - 20 mg/dL [facility] Calcium 8.1(L) 8.6 - 10.0 mg/dL [facility] Chloride 104 92 - 108 mEq/L [facility] Blood 02/06/2024 7:10 AM CDT 02/06/2024 7:28 AM CDT Lia Mcclellan PA-C LABORATORY [address] [address] * (ABNORMAL) HEMOGLOBIN (02/06/2024 7:10 AM CDT) Hgb 8.8(L) 11.5 - 15.7 g/dL [facility] Blood 02/06/2024 7:10 AM CDT 02/06/2024 7:28 AM CDT Lia Mcclellan PA-C LABORATORY Performing Organization Address City/[facility]/ZIP Co de Phone Number [facility] [address] [address] * (ABNORMAL) POC GLUCOSE (02/06/2024 6:06 AM CDT) POC Glucose 119(H) 70 - 100 mg/dL [facility] Blood 02/06/2024 6:06 AM CDT Humphrey Rose MD LABORATORY [facility] [address] [place] [address], * (ABNORMAL) POC GLUCOSE (02/06/2024 12:09 AM CDT) POC Glucose 102(H) 70 - 100 mg/dL [facility] Blood 02/06/2024 12:0 9 AM CDT Humphrey Rose MD LABORATORY [facility] [address] [place] [address], [place] * (ABNORMAL) POC GLUCOSE (02/05/2024 3:57 PM CDT) POC Glucose 112(H) 70 - 100 mg/dL [facility] Blood 02/05/2024 3:57 PM CDT Humphrey Rose MD LABORATORY [facility] [address] [place] [address], [place] * XR C ARM OVER 3 [...] ADULT (BLOOD ADMIN) (02/05/2024 1:19 PM CDT) Pathologist [facility] Unit Number [id number] [facility] Product Code [id number] [facility] Blood Expiration Date [id number] [facility] Blood Type 6200 [facility] Blood Type (TEXT) APOS [facility] Other 02/05/2024 1:19 PM CDT 02/05/2024 1:16 PM CDT Marcus Hanna MD BLOOD BANK ORDERABLE S (BLOOD ADMIN) Performing Organization Address [facility] Co de Phone Number [facility] [place] [address] * POC GLUCOSE (02/05/2024 11:21 AM CDT) POC Glucose 92 70 - 100 mg/dL [facility] Blood 02/05/2024 11:2 1 AM CDT Humphrey Rose MD LABORATORY Performing Organization Address [facility]/ZIP Co de Phone Number [facility] [address] [place] [address], * WOUND CULTURE:GRAM STAIN OPTIONAL (02/05/2024 10:00 AM CDT) Final Report Duplicate order. Patient account credited. [facility] Gram Stain Report Few PMN's seen. No organisms seen. [facility] Swab STRUCTURE OF RIGHT FOOT / Unknown 02/05/2024 10:00 AM CDT 02/05/2024 10:25 AM CDT Narrative [facility] - 02/05/2024 2:53 PM CDT Purulent drainage. Gram Stain please, aerobic, anaerobic Do you want a gram stain: Yes Autumn Jerome MD LAB MICROBIOLOGY Performing Organization Address City/[facility] Co de Phone Number [facility] [address] [address] * (ABNORMAL) PROTHROMBIN (PT) & INR (02/05/2024 9:15 AM CDT) Pathologist [facility] PT 16.9(H) 9.0 - 12.5 sec [facility] INR 1.5(H) 0.8 - 1.1 [facility] Comment: Warfarin Therapeutic Range: Standard Intensity: 2.0 - 3.0 High Intensity: 2.5 - 3.5 Blood 02/05/2024 9:15 AM CDT 02/05/2024 9:43 AM CDT Autumn Jerome MD LABORATORY Performing Organization Address [facility] Co de Phone Number [facility] [address] [address] * (ABNORMAL) PANEL HEPATIC FUNCTION (02/05/2024 9:15 AM CDT) Pathologist [facility] Total Protein 5.5(L) 6.4 - 8.3 g/dL [facility] Albumin 2.2(L) 3.8 - 5.1 g/dL [facility] Bili Total 0.7 <=1.2 mg/dL [facility] Bili Direct 0.4(H) <=0.3 mg/dL [facility] Alk Phos 101 35 - 104 IU/L [facility] Comment:No reference range e stablished for patients <18 years old. ALT (SGPT) 13 <=33 IU/L [facility] AST(SGOT) 33 5 - 40 IU/L [facility] Blood 02/05/2024 9:15 AM CDT 02/05/2024 9:43 AM CDT Autumn Jerome MD LABORATORY [facility] [address] [address] * (ABNORMAL) CBC WITH PLATELET (02/05/2024 9:15 AM CDT) WBC 5.51 4.00 - 10.00 k/cmm [facility] RBC 3.11(L) 3.90 - 5.20 m/cmm [facility] Hgb 9.4(L) 11.5 - 15.7 g/dL [facility] Hematocrit 28.9(L) 34.0 - 45.0 % [facility] MCV 92.9 80.0 - 100.0 fL [facility] MCH 30.2 25.0 - 32.0 pg [facility] MCHC 32.5 31.0 - 36.0 g/dL [facility] RDW 13.4 11.5 - 14.5 % [facility] Plt 164 150 - 400 k/cmm [facility] MPV 10.2 6.5 - 12.5 fL [facility] Blood 02/05/2024 9:15 AM CDT 02/05/2024 9:43 AM CDT Autumn Jerome MD LABORATORY [facility] [address] [address] * (ABNORMAL) PANEL BASIC METABOLIC (BMP) (02/05/2024 9:15 AM CDT) CO2 25 22 - 30 mEq/L [facility] Glucose 112(H) 70 - 100 mg/dL [facility] BUN 12 6 - 20 mg/dL [facility] Creatinine 0.62 0.50 - 1.00 mg/dL [facility] Calcium 7.8(L) 8.6 - 10.0 mg/dL [facility] Sodium 134(L) 135 - 148 mEq/L [facility] Potassium 4.1 3.5 - 5.3 mEq/L [facility] Chloride 102 92 - 108 mEq/L [facility] AnGap 7(L) 8 - 16 mEq/L [facility] eGFR (2020 CKD-EPI) 103 >=60 ml/min/1.7 3m2 [facility] Comment: The estimated glomerular filtration rate [...] Jerome MD LABORATORY Performing Organization Address City/[facility]/ZIP Co de Phone Number [facility] [place] [address] * (ABNORMAL) POC GLUCOSE (02/05/2024 6:02 AM CDT) POC Glucose 106(H) 70 - 100 mg/dL [facility] Blood 02/05/2024 6:02 AM CDT Humphrey Rose MD LABORATORY Performing Organization Address City/[facility] Co de Phone Number [facility] [address] [place], [place] [address], [place] * (ABNORMAL) POC GLUCOSE (02/04/2024 11:58 PM CDT) POC Glucose 122(H) 70 - 100 mg/dL [facility] Blood 02/04/2024 11:5 8 PM CDT Humphrey Rose MD LABORATORY Performing Organization Address City/[facility]/ZIP Co de Phone Number [facility] [address] [place] [address], * (ABNORMAL) ANAEROBE CULTURE (02/04/2024 10:44 PM CDT) Final Report Few Enterococcus faecalis isolated. No anaerobes isolated. (POS) [facility] Organism ENTEROCOCCUS FAECALIS(POS) [facility] Swab STRUCTURE OF RIGHT FOOT / Unknown 02/04/2024 10:44 PM CDT 02/05/2024 9:20 AM CDT Autumn Jerome MD LAB MICROBIOLOGY Performing Organization Address [facility] Co de Phone Number [facility] [address] [address] * (ABNORMAL) WOUND CULTURE:GRAM STAIN OPTIONAL (02/04/2024 10:44 PM CDT) Final Report Moderate Methicillin sensitive Staphylococcus aureus (MSSA) isolated. Methicillin susceptible by PBP2a. Rare Staphylococcus epidermidis isolated. (POS) [facility] Organism METHICILLIN SENSITIVE STAPHYLOCOCCUS AUREUS (MSSA)(POS) [facility] Organism STAPHYLOCOCCUS EPIDERMIDIS(POS) [facility] Gram Stain Report Few PMN's seen. No organisms seen. [facility] Swab STRUCTURE OF RIGHT FOOT / Unknown 02/04/2024 10:44 PM CDT 02/05/2024 9:20 AM CDT Narrative [facility] - 02/07/2024 9:52 AM CDT Do [...] Jerome MD LAB MICROBIOLOGY Performing Organization Address [facility]/ZIP Co de Phone Number [facility] [address] [address] * HELD MICRO SPECIMEN (02/04/2024 10:44 PM CDT) Final Report Microbiology specimen received in lab with no orders. Add-on order must be placed within 24 hours. If no orders placed, specimen will be discarded. [facility] Swab STRUCTURE OF RIGHT FOOT / Unknown 02/04/2024 10:44 PM CDT 02/04/2024 10:45 PM CDT Narrative [facility] - 02/04/2024 10:46 PM CDT Epic message sent to Autumn Jerome at 02/04/2024 22:46:13 CDT by Solitario Mckinnon MLS. Autumn Jerome MD LAB MICROBIOLOGY [facility] [address] [address] * POC GLUCOSE (02/04/2024 9:50 PM CDT) POC Glucose 94 70 - 100 mg/dL [facility] Blood 02/04/2024 9:50 PM CDT Humphrey Rose MD LABORATORY [facility] [address] [place] [address], * BLOOD AEROBIC/ANAEROBIC CULTURE (02/04/2024 6:44 PM CDT) Final Report No growth after 5 days. [facility] Blood (Peripheral) 02/04/2024 6:44 PM CDT 02/04/2024 10:14 PM CDT Autumn Jerome MD LAB MICROBIOLOGY [facility] [address] [address] * BLOOD AEROBIC/ANAEROBIC CULTURE (02/04/2024 6:44 PM CDT) Final Report No growth after 5 days. [facility] Blood (Peripheral) 02/04/2024 6:44 PM CDT 02/04/2024 10:14 PM CDT Autumn Jerome MD LAB MICROBIOLOGY Performing Organization Address [facility] Co de Phone Number [facility] [address] [address] * POTASSIUM (02/04/2024 1:17 PM CDT) Pathologist [facility] Potassium 4.3 3.5 - 5.3 mEq/L [facility] Blood 02/04/2024 1:17 PM CDT 02/04/2024 1:33 PM CDT Autumn Jerome MD LABORATORY Performing Organization Address [facility] de Phone Number [facility] [address] [address] * ANTIBODY SCREEN (02/04/2024 1:17 PM CDT) Nicky Screen Negative [facility] Blood 02/04/2024 1:17 PM CDT 02/04/2024 1:34 PM CDT Solitario Ha APRN, FLIGHT RADIO OPERATOR LAB TRANSF[employer] ON SERVICES Performing Organization Address [facility] de Phone Number [facility] [address] [address] * BLOOD TYPING-ABO/RH (02/04/2024 1:17 PM CDT) ABORHG A POS [facility] Blood 02/04/2024 1:17 PM CDT 02/04/2024 1:34 PM CDT Solitario Ha APRN, FLIGHT RADIO OPERATOR LAB TRANSF[employer] ON SERVICES Performing Organization Address [facility] Co de Phone Number [facility] [address] [address] * (ABNORMAL) PROTHROMBIN (PT) & INR (02/04/2024 6:40 AM CDT) PT 16.2(H) 9.0 - 12.5 sec [facility] INR 1.4(H) 0.8 - 1.1 [facility] Comment: Warfarin Therapeutic Range: Standard Intensity: 2.0 - 3.0 High Intensity: 2.5 - 3.5 Blood 02/04/2024 6:40 AM CDT 02/04/2024 8:27 AM CDT Autumn Jerome MD LABORATORY Performing Organization Address City/[facility] Co de Phone Number [facility] [address] [address] * (ABNORMAL) PANEL HEPATIC FUNCTION (02/04/2024 6:40 AM CDT) Total Protein 5.5(L) 6.4 - 8.3 g/dL [facility] Albumin 2.2(L) 3.8 - 5.1 g/dL [facility] Bili Total 0.8 <=1.2 mg/dL [facility] Bili Direct 0.5(H) <=0.3 mg/dL [facility] Alk Phos 96 35 - 104 IU/L [facility] Comment:No reference range e stablished for patients <18 years old. ALT (SGPT) 15 <=33 IU/L [facility] AST(SGOT) 37 5 - 40 IU/L [facility] Blood 02/04/2024 6:40 AM CDT 02/04/2024 8:27 AM CDT Autumn Jerome MD LABORATORY [facility] [address] [address] * (ABNORMAL) CBC WITH PLATELET (02/04/2024 6:40 AM CDT) WBC 4.55 4.00 - 10.00 k/cmm [facility] RBC 3.03(L) 3.90 - 5.20 m/cmm [facility] Hgb 9.2(L) 11.5 - 15.7 g/dL [facility] Hematocrit 28.8(L) 34.0 - 45.0 % [facility] MCV 95.0 80.0 - 100.0 fL [facility] MCH 30.4 25.0 - 32.0 pg [facility] MCHC 31.9 31.0 - 36.0 g/dL [facility] RDW 13.6 11.5 - 14.5 % [facility] Plt 152 150 - 400 k/cmm [facility] MPV 10.9 6.5 - 12.5 fL [facility] Blood 02/04/2024 6:40 AM CDT 02/04/2024 8:27 AM CDT Autumn Jerome MD LABORATORY [facility] [address] [address] * (ABNORMAL) PANEL BASIC METABOLIC (BMP) (02/04/2024 6:40 AM CDT) CO2 26 22 - 30 mEq/L [facility] Glucose 76 70 - 100 mg/dL [facility] BUN 12 6 - 20 mg/dL [facility] Creatinine 0.64 0.50 - 1.00 mg/dL [facility] Calcium 7.9(L) 8.6 - 10.0 mg/dL [facility] Sodium 136 135 - 148 mEq/L [facility] Potassium 3.4(L) 3.5 - 5.3 mEq/L [facility] Chloride 102 92 - 108 mEq/L [facility] AnGap 8 8 - 16 mEq/L [facility] eGFR (2020 CKD-EPI) 102 >=60 ml/min/1.7 3m2 [facility] Comment: The estimated glomerular filtration rate [...] LABORATORY Performing Organization Address [facility] de Phone Number [facility] [address] [address] * (ABNORMAL) BLOOD AEROBIC/ANAEROBIC CULTURE (02/03/2024 12:13 PM CDT) Final Report Positive Blood Culture Gram stain result called to and read back by: Dr. Autumn Jerome with [facility] [place] at 02/04/2024 14:23:58 by Leidy Mayer MLS([facility]) SM. Bacillus species not anthracis isolated from aerobic bottle only. Organism identified 02/05/2024 11:47:27 No susceptibility done. Plates held one week. (POS) [facility] Organism BACILLUS SPECIES NOT ANTHRACIS(POS) [facility] Blood (Peripheral) 02/03/2024 12:13 PM CDT 02/03/2024 1:03 PM CDT Autumn Jerome MD LAB MICROBIOLOGY Performing Organization Address [facility] Co de Phone Number [facility] [address] [address] * BLOOD AEROBIC/ANAEROBIC CULTURE (02/03/2024 12:06 PM CDT) Final Report No growth after 5 days. [facility] Blood (Peripheral) 02/03/2024 12:06 PM CDT 02/03/2024 1:03 PM CDT Autumn Jerome MD LAB MICROBIOLOGY Performing Organization Address [facility] Co de Phone Number [facility] [address] [address] * (ABNORMAL) PROTHROMBIN (PT) & INR (02/03/2024 8:03 AM CDT) PT 19.8(H) 9.0 - 12.5 sec [facility] INR 1.8(H) 0.8 - 1.1 [facility] Comment: Warfarin Therapeutic Range: Standard Intensity: 2.0 - 3.0 High Intensity: 2.5 - 3.5 Blood 02/03/2024 8:03 AM CDT 02/03/2024 8:48 AM CDT Enedina Austin MD LABORATORY Performing Organization Address [facility] Co de Phone Number [facility] [address] [address] * (ABNORMAL) PANEL HEPATIC FUNCTION (02/03/2024 8:03 AM CDT) Total Protein 5.5(L) 6.4 - 8.3 g/dL [facility] Albumin 2.2(L) 3.8 - 5.1 g/dL [facility] Bili Total 0.9 <=1.2 mg/dL [facility] Bili Direct 0.5(H) <=0.3 mg/dL [facility] Alk Phos 98 35 - 104 IU/L [facility] Comment:No reference range e stablished for patients <18 years old. ALT (SGPT) 16 <=33 IU/L [facility] AST(SGOT) 36 5 - 40 IU/L [facility] Blood 02/03/2024 8:03 AM CDT 02/03/2024 8:48 AM CDT Enedina Austin MD LABORATORY Performing Organization Address [facility] Co de Phone Number [facility] [address] [address] * (ABNORMAL) PANEL BASIC METABOLIC (BMP) (02/03/2024 8:03 AM CDT) CO2 25 22 - 30 mEq/L [facility] Glucose 95 70 - 100 mg/dL [facility] BUN 10 6 - 20 mg/dL [facility] Creatinine 0.70 0.50 - 1.00 mg/dL [facility] Calcium 7.5(L) 8.6 - 10.0 mg/dL [facility] Sodium 133(L) 135 - 148 mEq/L [facility] Potassium 3.4(L) 3.5 - 5.3 mEq/L [facility] Chloride 100 92 - 108 mEq/L [facility] AnGap 8 8 - 16 mEq/L [facility] eGFR (2020 CKD-EPI) 100 >=60 ml/min/1.7 3m2 [facility] Comment: The estimated glomerular filtration rate (eGFR) was calculated using the CKD-EPI 2020 creatinine equation, which does not include race as a factor. This equation is validated in individuals 18 years of age and older, and eGFR is normalized to a body surface area of 1.73m^2. Blood 02/03/2024 8:03 AM CDT 02/03/2024 8:48 AM CDT Enedina Austin MD LABORATORY [facility] [address] [place] [address] * (ABNORMAL) CBC WITH PLTS/AUTO DIFF (02/03/2024 8:03 AM CDT) WBC 5.74 4.00 - 10.00 k/cmm [facility] RBC 3.08(L) 3.90 - 5.20 m/cmm [facility] Hgb 9.4(L) 11.5 - 15.7 g/dL [facility] Hematocrit 28.1(L) 34.0 - 45.0 % [facility] MCV 91.2 80.0 - 100.0 fL [facility] MCH 30.5 25.0 - 32.0 pg [facility] MCHC 33.5 31.0 - 36.0 g/dL [facility] RDW 13.6 11.5 - 14.5 % [facility] Plt 155 150 - 400 k/cmm [facility] MPV 10.6 6.5 - 12.5 fL [facility] Automated Abs Neutrophil 4.49 1.70 - 6.50 k/cmm [facility] Comment:Preliminary ANC, Fin al Result to Follow Abs Immature Granulocyte 0.02 0.00 - 0.09 k/cmm [facility] Comment:The Immature Granulo cyte Absolute count contains metamyelocytes and myelocytes. Abs Neutrophil 4.49 1.70 - 6.50 k/cmm [facility] Abs Lymphocyte 0.69(L) 0.80 - 4.00 k/cmm [facility] Abs Monocyte 0.53 0.20 - 1.00 k/cmm [facility] Abs Eosinophil 0.00 0.00 - 0.60 k/cmm [facility] Abs Basophil 0.01 0.00 - 0.20 k/cmm [facility] Blood 02/03/2024 8:03 AM CDT 02/03/2024 8:48 AM CDT Enedina Austin MD LABORATORY [facility] [address] [address] * CT RIGHT FEMUR NO IV CONTRAST (02/02/2024 10:19 PM CDT) Anatomical Region Laterality Modality Lower Extremity Computed Tomogra phy 02/02/2024 10:1 4 PM CDT Addenda Addendum by Carter Reyes MD on 02/02/2024 10:29 PM CDT ADDENDUM: 3-D reconstructions were created by the echocardiography radiology technologist on the CT scanner and reviewed [...] perforation and infection ??Alternatives discussed: ??No treatment [place] protocol: ??Patient identity confirmed: ??Verbally with patient [...] ??Analgesia without sedation, anxiolysis and regional anesthesia [place] protocol: ??Procedure explained and questions answered to [...] vital sign checks, continuous pulse oximetry and welder and fitter ??Intra-procedure events: respiratory depression ?Intra-procedure management: ??Airway [...] MISCELLANEOUS BODY FLUID (02/02/2024 7:51 PM CDT) [facility] 1.3 [facility] Units BF g/dL [facility] Comment:The reference interv al(s) and other method performance specifications have not been established for this body fluid. The test result must be integrated into the clinical context for interpretation. Fluid 02/02/2024 7:51 PM CDT 02/02/2024 8:11 PM CDT Narrative [facility] - 02/02/2024 9:01 PM CDT fluid: Peritoneal Test: TP Humphrey Rose MD LABORATORY [facility] [address] [place] [address] * BODY FLUID CULTURE:INCLUDES GRAM STAIN (02/02/2024 7:51 PM CDT) Final Report No growth. [facility] Gram Stain Report PMN's seen. No organisms seen. [facility] Peritoneal Fluid PERITONEUM (SEROUS MEMBRANE) STRUCTURE / Unknown 02/02/2024 7:51 PM CDT 02/02/2024 8:04 PM CDT Humphrey Rose MD LAB MICROBIOLO GY Performing Organization Address [facility] Co de Phone Number [facility] [address] [address] * BODY FLUID CELL COUNT/DIFF (02/02/2024 7:51 PM CDT) Fluid Type PT Peritoneal [facility] Comment:Normal reference ran ges have not been determined; clinical correlation is recommended. Volume PT Fluid 40 mL [facility] Appearance PT Hazy [facility] Color bf Yellow [facility] Rbc PT Fluid <1,000 cells/ul [facility] Nuc Ct PT Fluid 93 cells/ul [facility] Neutrophil PT Fluid 2 % [facility] Lymphocytes PT Fluid 19 % [facility] Basophil PT Fluid 1 % [facility] MONO/MACS FL 53 % [facility] Other PT Fluid 25 % [facility] Comment:Others are mesotheli al cells. Peritoneal Fluid 02/02/2024 7:51 PM CDT 02/02/2024 7:57 PM CDT Humphrey Rose MD LABORATORY Performing Organization Address [facility] Co de Phone Number [facility] [address] [address] * CT ABDOMEN/PELVIS W/IV CON (02/02/2024 6:50 [...] 5:15 PM CDT) Color YELLOW YELLOW [facility] Appearance CLOUDY(A) CLEAR [facility] Urine Glucose NEGATIVE NEGATIVE mg/dL [facility] Bili UA TRACE(A) NEGATIVE [facility] Ketones TRACE(A) NEGATIVE [facility] Specific [place] 1.024 1.003 - 1.030 [facility] Blood Ur LARGE(A) Neg-Trace [facility] PH Urine 6.0 5.0 - 7.0 [facility] Protein Ur 30(A) Neg-Trace [facility] Urobilinogen >=8(A) NORMAL EU/dL [facility] Nitrite Ur NEGATIVE NEGATIVE [facility] Leuk Est SMALL(A) Neg-Trace [facility] WBC Ur 6-10(A) 0 - 5 perHPF [facility] RBC Ur >20(A) 0 - 3 perHPF [facility] SQ EPITH 0-5 0 - 5 perHPF [facility] Bacteria UA PRESENT [facility] Comment:Presence of bacteria does not necessarily indicate a UTI. The presence of bacteria can indicate a non-clean catch urine specimen. Bacteria should be used in conjunction with other UA results and clinical presentation to assist in diagnosing an infection. Urinalysis Performed at: [facility] Urine 02/02/2024 5:15 PM CDT 02/02/2024 5:18 PM CDT Humphrey Rose MD LABORATORY [facility] [address] [address] * (ABNORMAL) URINE CULTURE (02/02/2024 5:03 PM CDT) Urine Cult Greater than 100,000 organisms/ml Escherichia coli isolated.(POS) [facility] Organism ESCHERICHIA COLI(POS) [facility] Urine 02/02/2024 5:03 PM CDT 02/02/2024 [...] MD LAB MICROBIOLO GY Performing Organization Address [facility] Co de Phone Number [facility] [address] [address] * PRECAUTIONARY TUBE (02/02/2024 5:00 PM CDT) Pathologist [facility] Prec Tube Precautionary Blood Bank Specimen Received. [facility] Blood 02/02/2024 5:00 PM CDT 02/02/2024 5:11 PM CDT Raven Rock MD LAB TRANSFUSION SERV ICES Performing Organization Address [facility] de Phone Number [facility] [address] [address] * LIPASE (02/02/2024 4:01 PM CDT) [facility] Lipase 13 13 - 60 IU/L [facility] Blood 02/02/2024 4:01 PM CDT 02/02/2024 7:02 PM CDT Humphrey Rose MD LABORATORY Performing Organization Address [facility] de Phone Number [facility] [address] [address] * (ABNORMAL) PANEL HEPATIC FUNCTION (02/02/2024 4:01 PM CDT) [facility] Total Protein 5.8(L) 6.4 - 8.3 g/dL [facility] Albumin 2.4(L) 3.8 - 5.1 g/dL [facility] Bili Total 1.1 <=1.2 mg/dL [facility] Bili Direct 0.5(H) <=0.3 mg/dL [facility] Alk Phos 107(H) 35 - 104 IU/L [facility] Comment:No reference range e stablished for patients <18 years old. ALT (SGPT) 19 <=33 IU/L [facility] AST(SGOT) 39 5 - 40 IU/L [facility] Blood 02/02/2024 4:01 PM CDT 02/02/2024 7:02 PM CDT Humphrey Rose MD LABORATORY Performing Organization Address City/[facility]/ZIP Co de Phone Number [facility] [address] [address] * LACTATE (LACTIC ACID) (02/02/2024 4:01 PM CDT) Pathologist [facility] Lactate 1.1 0.7 - 2.1 mmol/L [facility] Blood 02/02/2024 4:01 PM CDT 02/02/2024 4:15 PM CDT Narrative [facility] - 02/02/2024 4:15 PM CDT Send specimen on ice! Humphrey Rose MD LABORATORY Performing Organization Address [facility] Co de Phone Number [facility] [address] [address] * (ABNORMAL) PROTHROMBIN (PT) & INR (02/02/2024 4:01 PM CDT) Pathologist [facility] PT 18.0(H) 9.0 - 12.5 sec [facility] INR 1.6(H) 0.8 - 1.1 [facility] Comment: Warfarin Therapeutic Range: Standard Intensity: 2.0 - 3.0 High Intensity: 2.5 - 3.5 Blood 02/02/2024 4:01 PM CDT 02/02/2024 4:38 PM CDT Humphrey Rose MD LABORATORY Performing Organization Address City/[facility]/ZIP Co de Phone Number [facility] [address] [address] * HS TROPONIN (02/02/2024 4:01 PM CDT) HS Troponin I <3 <=14 ng/L [facility] Blood 02/02/2024 4:01 PM CDT 02/02/2024 4:36 PM CDT Narrative [facility] - 02/02/2024 5:10 PM CDT If ordering as an add-on lab, you must call the lab. Humphrey Rose MD LABORATORY [facility] [address] [address] * (ABNORMAL) CBC WITH PLTS/AUTO DIFF (02/02/2024 4:01 PM CDT) WBC 7.34 4.00 - 10.00 k/cmm [facility] RBC 3.08(L) 3.90 - 5.20 m/cmm [facility] Hgb 9.3(L) 11.5 - 15.7 g/dL [facility] Hematocrit 28.5(L) 34.0 - 45.0 % [facility] MCV 92.5 80.0 - 100.0 fL [facility] MCH 30.2 25.0 - 32.0 pg [facility] MCHC 32.6 31.0 - 36.0 g/dL [facility] RDW 13.5 11.5 - 14.5 % [facility] Plt 176 150 - 400 k/cmm [facility] MPV 10.2 6.5 - 12.5 fL [facility] Automated Abs Neutrophil 5.98 1.70 - 6.50 k/cmm [facility] Comment:Preliminary ANC, Fin al Result to Follow Abs Immature Granulocyte 0.03 0.00 - 0.09 k/cmm [facility] Comment:The Immature Granulo cyte Absolute count contains metamyelocytes and myelocytes. Abs Neutrophil 5.98 1.70 - 6.50 k/cmm [facility] Abs Lymphocyte 0.80 0.80 - 4.00 k/cmm [facility] Abs Monocyte 0.52 0.20 - 1.00 k/cmm [facility] Abs Eosinophil 0.00 0.00 - 0.60 k/cmm [facility] Abs Basophil 0.01 0.00 - 0.20 k/cmm [facility] Blood 02/02/2024 4:01 PM CDT 02/02/2024 4:36 PM CDT Humphrey Rose MD LABORATORY Performing Organization Address [facility] Co de Phone Number [facility] [address] [address] * (ABNORMAL) ED CHEMISTRY LABS(NA,K,CL,CO2,GLU,CREAT,CA-IONIZED,ANION GAP) (02/02/2024 4:01 PM CDT) Sodium 135 135 - 148 mEq/L [facility] Chloride 100 92 - 108 mEq/L [facility] AnGap 9 8 - 16 mEq/L [facility] Glucose 105(H) 70 - 100 mg/dL [facility] ICA, Actual 4.21(L) 4.40 - 5.20 mg/dL [facility] ICA, pH Corrected 4.45 4.40 - 5.20 mg/dL [facility] Creatinine 0.72 0.50 - 1.00 mg/dL [facility] BICARB 26 22 - 26 mEq/L [facility] eGFR (2020 CKD-EPI) 96 >=60 ml/min/1.7 3m2 [facility] Comment: The estimated glomerular filtration rate (eGFR) was calculated using the CKD-EPI 2020 creatinine equation, which does not include race as a factor. This equation is validated in individuals 18 years of age and older, and eGFR is normalized to a body surface area of 1.73m^2. Potassium 3.5 3.5 - 5.3 mEq/L [facility] Blood 02/02/2024 4:01 PM CDT 02/02/2024 4:15 PM CDT Humphrey Rose MD LABORATORY Performing Organization Address [facility] Co de Phone Number [facility] [address] [address] * GLYCOSYLATED HGB - A1C (02/02/2024 4:00 PM CDT) Hemoglobin A1C 4.4 4.0 - 5.6 % [facility] Comment: Increased risk for diabetes (prediabetes): [...] Average Glucose 80 68 - 114 [facility] Comment: The estimated Average Glucose (eAG) was calculated using an equation derived from a study of 507 adults with type 1, type 2, or no diabetes. Minority populations were underrepresented and children were not included. The eAG is not equivalent to a fasting glucose concentration. Blood 02/02/2024 4:00 PM CDT 02/02/2024 11:05 PM CDT Enedina Austin MD LABORATORY Performing Organization Address [facility] Co de Phone Number [facility] [address] [address] * ANTIBODY SCREEN (02/02/2024 4:00 PM CDT) Nicky Screen Negative [facility] Blood 02/02/2024 4:00 PM CDT 02/02/2024 10:16 PM CDT Ileana Howell APRN, CNP LAB TRANSFUSI ON SERVICES Performing Organization Address [facility] Co de Phone Number [facility] [address] [address] * BLOOD TYPING-ABO/RH (02/02/2024 4:00 PM CDT) ABORHG A POS [facility] Blood 02/02/2024 4:00 PM CDT 02/02/2024 10:16 PM CDT Ileana Howell APRN, CNP LAB TRANSFUSI ON SERVICES Performing Organization Address [facility] Co de Phone Number [facility] [address] [address] * PTT (APTT) (02/02/2024 4:00 PM CDT) APTT 33.0 25.0 - 37.0 sec [facility] Blood 02/02/2024 4:00 PM CDT 02/02/2024 5:57 PM CDT Enedina Austin MD LABORATORY Performing Organization Address [facility] Co de Phone Number [facility] [address] [address] * ED EKG (12-LEAD) (02/02/2024 3:48 PM CDT) 02/02/2024 3:48 PM CDT [facility] - 02/02/2024 3:48 PM CDT SINUS RHYTHM LOW QRS VOLTAGE IN EXTREMITY LEADS ??[QRS DEFLECTION < 0.5 mV IN LIMB LEADS] POSSIBLE ANTERIOR MYOCARDIAL INFARCTION , PROBABLY OLD [30 ms Q WAVE IN V3/V4, OR R < 0.2 mV IN V4] BORDERLINE ECG P-R Interval 184 ms QRS Interval 78 ms QT Interval 365 ms QTC Interval 414 ms P [place] -12 QRS [place] -1 T Wave [place] -1 Narrative Procedure Note Lyndon Villanueva MD - 02/02/2024 IMPRESSION SINUS RHYTHM LOW QRS VOLTAGE IN EXTREMITY LEADS [QRS DEFLECTION < 0.5 mV IN LIMBLEADS] POSSIBLE ANTERIOR MYOCARDIAL INFARCTION , PROBABLY OLD [30 ms Q WAVE INV3/V4, OR R < 0.2 mV IN V4] BORDERLINE ECG P-R Interval 184 ms QRS Interval 78 ms QT Interval 365 ms QTC Interval 414 ms P [place] -12 QRS [place] -1 T Wave [place] -1 Humphrey Rose MD EKG Performing Organization Address [facility]/ZIP Co de Phone Number [facility] EKG ORDERS * ED US ABDOMINAL/GALLBLADDER [...] (CMS) Acute cystitis with hematuria 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..] RN)2047 (Given - Provider: Gaston Buckley RN) 0902 (Given - Provider: Stacy Laughlin RN)134 (Given [...] refused)2105 (Given - Provider: Marycruz Espinosa RN) 0800 (Due)1999 (Due) enoxaparin (LOVENOX) 40 mg/0.4 mL injection 40 mg 40 mg, Subcutaneous, DAILY, First dose on Thu02/21/24 at 1030, Until Discontinued 0754 (Given - Provider: Stacy Laughlin RN) 0900 (Given - Provider: Stacy Laughlin RN) 08 [...] Laughlin RN)1428 (Given - Provider: Stacy Laughlin RN)2046 (Given - Provider: Gaston Buckley RN) 09 (Given - Provider: Stacy Laughlin RN)1348 (Given - Provider: Stacy Laughlin RN)2103 (Given [...] right upper arm with PICC placement) nystatin 630991 unit/g powder Topical, BID, First dose on Thu02/03/24 at 1800, Until Discontinued 08 (Given - Provider: Stacy Laughlin RN)2047 (Given - Provider: Gaston Buckley RN) 09 (Given - Provider: Stacy Laughlin RN)2103 (Given - Provider: Marycruz sEpinosa RN) 0800 (Due)1999 (Due) pantoprazole (PROTONIX) tablet [...] 09 (Given - Provider: Stacy Laughlin RN)2103 (Not [...] Discontinued 075 (Given - Provider: Stacy Laughlin RN)204 (Given [...] Buckley RN)1942 (Stopped - Provider: Gaston Buckley RN)1999 (Dual [...]
--- OUTSIDE RECORDS SUMMARY | 2024-02-29 08:05 | XMS_ITS | Encounter Summary ---
Author Organization [facility] Address [address] 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 [place], [place] [phone] Provider, [place] [address] Referral of patient (Primary Dx) Social History [...] Upcoming Encounters Date Type Department Care Team ([facility] st Contact Info) Description 03/03/2024 10:00 AM CDT [facility] [address] [place] [phone] Lia Mcclellan PA-C [address] [place] [phone] Scheduled Discharge Disposition: Discharged to home or self care (routine discharge) 03/17/2024 9:45 AM CDT [facility]ointment [facility] [address] [place] [phone] Scheduled Discharge Disposition: Discharged to home or self care (routine discharge) 03/17/2024 10:00 AM CDT [facility] [address] [place] [phone] Dayo Henning MD [address] [address] Scheduled Discharge Disposition: Discharged to home or self care (routine discharge) documented as of this encounter Results * CT ABDOMEN/PELVIS OUTSIDE FILMS (07/08/2022 8:29 AM CDT) Narrative User, [email or web address] - 02/03/2024 1:05 PM CDT Outside Film Only Outside Provider RAD OUTSIDE FILMS * CT CHEST/ABDOMEN/PELVIS OUTSIDE FILMS (09/20/2021 9:02 AM DIE MAKER TRIM) Radhika SebastianScheduler - 02/03/2024 11:42 AM CDT Outside Film Only Outside Provider RAD OUTSIDE FILMS * CT CHEST/ABDOMEN/PELVIS OUTSIDE FILMS (05/08/2017 1:06 PM CDT) Radhika SebastianScheduler - 02/03/2024 11:43 AM CDT Outside Film Only Outside Provider RAD OUTSIDE FILMS documented in this encounter Visit Diagnoses Diagnosis Referral of patient- Primary Referral of patient without examination or treatment documented in this encounter
--- OUTSIDE RECORDS SUMMARY | 2024-02-29 08:05 | XMS_ITS | Encounter Summary ---
Author Organization [facility] Address [address] [place] [address] Phone Care Team Providers Care End Touching Machine Operator Name Role Phone Unavailable Primary [...] [facility] [address] [place] [phone] Lia Mcclellan PA-C [address] [address] Scheduled Discharge Disposition: Discharged to home or self care (routine discharge) 03/17/2024 9:45 AM CDT Appointment [facility] [address] [place] [phone] Scheduled Discharge Disposition: Discharged to home or self care (routine discharge) 03/17/2024 10:00 AM CDT Office [facility] [address] [place] [address] Dayo Henning MD [address] [place] [phone] Scheduled Discharge Disposition: Discharged to home or self care (routine discharge) documented as of this encounter Visit Diagnoses Not on filedocumented in this encounter
--- OUTSIDE RECORDS SUMMARY | 2024-02-29 08:05 | XMS_ITS | Encounter Summary ---
Author Organization [facility] Address [address] [place] [address] Phone Care Team Providers Care Curtain Stitcher Name Role Phone Unavailable Primary Care Provider Unavailabl e Encounter Details Date Type Department Care Team (Late st Contact Info) Description 02/02/2024 Orders Only [facility] Film Room [facility] Radiology Department [facility] [address] [place], [place] [phone] Provider, [place] [address] Referral of patient (Primary Dx) Social History [...] Upcoming Encounters Date Type Department Care Team ([facility] Contact Info) Description 03/03/2024 10:00 AM CDT [facility] [address] [place] [phone] Lia Mcclellan PA-C [address] [place] [phone] Scheduled Discharge Disposition: Discharged to home or self care (routine discharge) 03/17/2024 9:45 AM CDT Appointment [facility] [address] [place] [phone] Scheduled Discharge Disposition: Discharged to home or self care (routine discharge) 03/17/2024 10:00 AM CDT [facility] [address] [place] [phone] Dayo Henning MD [address] [place] [phone] Scheduled Discharge Disposition: Discharged to home or self care (routine discharge) documented as of this encounter Results * XR CHEST OUTSIDE FILMS (02/02/2024 12:30 PM CDT) Narrative User, [id number] - 02/02/2024 1:31 PM CDT Outside Film Only Outside Provider RAD OUTSIDE FILMS * XR LOWER EXTREMITY OUTSIDE FILMS (02/02/2024 12:15 PM CDT) Radhika SebastianScheduler - 02/02/2024 1:32 PM CDT Outside Film Only Outside Provider RAD OUTSIDE FILMS * XR LOWER EXTREMITY OUTSIDE FILMS (02/02/2024 11:25 AM CDT) Payton SebastianSilent-Scheduler - 02/02/2024 1:32 PM CDT Outside Film Only Outside Provider RAD OUTSIDE FILMS documented in this encounter Visit Diagnoses Diagnosis Referral of patient- Primary Referral of patient without examination or treatment documented in this encounter
--- OUTSIDE RECORDS SUMMARY | 2024-02-29 08:05 | XMS_ITS | Encounter Summary ---
Author Organization [facility] Address [address] [place] [address] Phone Care Team Providers Care Press Tender Smoke Signal Name Role Phone Unavailable Primary Care Provider Unavailabl e Encounter Details Date Type Department Care Team (Late st Contact Info) Description 02/04/2024 2:00 PM CDT Anesthesia Event OR P4 [address] [facility] [address] [place], [place] [id number] Malcolm Hernandez, DO [address] [place] [address] Michelle Robin, DIRECTOR DIGITAL ANALYTICS, [employer] [address] [place], [place] [id number] Anesthesia Record Procedure Summary Procedure Name Responsible [...] Kiley Sosa RN Wound 02/05/24; 1443; N; I ncision (screw sites x 3); Leg; Distal, Upper, [...] in Unit 02/11/241999 by Casper Vazquez RN Fecal Management/Containment System 02/20/24; 2011; Placed in Unit 02/20/242011 by Radha Otto RN Wound 02/26/24; 1300; Pres sure inj; Perineum (labia); Distal 02/26/24 1300 by Isidoro Guerrero CWON (PICC) Peripherally Inserted Central Catheter 02/27/24; 1137; 5 [place]ian; 43 cm, 2 cm out; Basilic; Right; Placed in Unit 02/27/24 1137 by Patricia Dumont, GEOFF documented in this encounter Social History Tobacco [...] with significant ascites. Sigmoid colon distention Hematologic/Onc /Renal/Musical Therapist ROS comment: Hematuria Airway Mallampati: II TM distance: >3 FB Neck ROM: full Mouth Opening: good Dental (+) chipped teeth and missing teeth OB Other Physical Exam Anesthesia Plan ASA 4 - emergent general (With arterial catheterization) intravenous induction Maintenance: Balanced Post-op Care: routine analgesia Anesthetic plan and risks discussed with patient. Plan discussed with [employer]. Vitals: 02/04/24 0729 BP: 103/66 Pulse: 72 Resp: 16 Temp: 36.8 ??C (98.3 ??F) SpO2: 98% documented in this encounter Plan of Treatment Upcoming Encounters Date Type Department Care Team (Late st Contact Info) Description 03/03/2024 10:00 AM CDT [facility] [address] [place] [phone] Lia Mcclellan PAMagnoliaC [address] [address] Scheduled Discharge Disposition: Discharged to home or self care (routine discharge) 03/17/2024 9:45 AM CDT [facility]ointment [facility] [address] [place] [address] Scheduled Discharge Disposition: Discharged to home or self care (routine discharge) 03/17/2024 10:00 AM CDT [facility] [address] [place] [phone] Dayo Henning MD [address] [address] Scheduled Discharge Disposition: Discharged to home or self care (routine discharge) documented as of this encounter Visit Diagnoses Not on filedocumented in this encounter
--- OUTSIDE RECORDS SUMMARY | 2024-02-29 08:05 | XMS_ITS | Encounter Summary ---
Author Organization [facility] Address [address] [place] [address] Phone Care Team Providers Care Sound Tester Name Role Phone Unavailable Primary Care Provider Unavailabl e Encounter Details Date Type Department Care Team (Late st Contact Info) Description 02/02/2024 Orders Only [facility] [address] [place] [address] Provider, [place] [address] Social History Tobacco Use Types Packs/Day Years [...] [facility] [address] [place] [address] Lia Mcclellan PA-C [address] [address] Scheduled Discharge Disposition: Discharged to home or self care (routine discharge) 03/17/2024 9:45 AM CDT [facility]ointment [facility] [address] [place] [address] Scheduled Discharge Disposition: Discharged to home or self care (routine discharge) 03/17/2024 10:00 AM CDT Office [facility] [address] [place] [address] Dayo Henning MD [address] [address] Scheduled Discharge Disposition: Discharged to home or self care (routine discharge) documented as of this encounter Visit Diagnoses Not on filedocumented in this encounter
--- OUTSIDE RECORDS SUMMARY | 2024-02-29 08:07 | XMS_ITS | Encounter Summary ---
Author Organization [facility] Address [address] [place] [address] Phone Care Team Providers Care Lead Ramp Service Man Name Role Phone Unavailable Primary Care Provider Unavailabl e Reason for Visit * Reason Comments Leg Deformity * Auth/Cert (Routine) Specialty Diagnoses / Procedures Referred By Contac t Referred To Contact ORTHOPEDICS Diagnoses Acute cystitis with hematuria Other fracture of right femur, initial encounter for closed fracture (CMS) Humphrey Rose MD [address] [place] [address] [facility] In[facility](G3) [address] [facility] [address] [place] [address] Referral ID Status Reason Start Date Expiration Date Visits Re quested Visits Authorized [id number] 1 1 Encounter Details Date Type Department Care Team (Latest Contact Info) Description 02/02/2024 3:17 PM CDT - Present Hospital Encounter [facility] [address] [facility] [address] [place], [place] [id number] Humphrey Rose MD [address] [place] [address] [phone] Enedina Austin MD [address] [place] [address] [address] [place], [place] [phone] Autumn Jerome MD [address] [place] [address] [phone] Ernestine Toribio MD [address] [place] [address] Francy Mc MD [address] [place], [place] [address] Nino Ramírez MD [address] [id number] Other fracture of right femur, initial encounter for closed fracture ([facility]) Social History Tobacco Use Types Packs/Day Years [...] Sign Reading Time Taken Comments Blood Pressure 107/69 02/29/2024 7:00 AM CDT Pulse 71 02/29/2024 7:00 AM CDT Temperature 36.8 ??C (98.3 ??F) 02/29/2024 7:00 AM CD T Respiratory Rate 15 02/29/2024 7:00 AM CDT Oxygen Saturation 98% 02/29/2024 7:00 AM CDT Inhaled Oxygen Concentration - - [...] and bladder, alcohol use d/o, hypothyroidism, T2DM, AMX, gastric bypass 2002 with history of marginal [...] AM Naina Merritt MBBS, 02/28/2024 11:37 AM [facility] Surgery Service Surgery Discharge Milestones (Inpatient Primary [...] POA, Stage 2 - Wound care per [facility] nurse Hypokalemia, intermittent Anemia, stable. [...] Subjective/Events of Past 24 Hours: Hospital Day: Doing okay today. Abdomen stably full/tense but [...] Pertinent labs and imaging personally reviewed in [facility] and applied to medical decision [...] weekly to monitor tolerance. Raven Ramírez, , MAGALYS, OG [employer] Dietitian Weekend [employer] * Miryam Kolb - 02/27/2024 3:33 PM CDT Pt just got a picc line and will be changed to unit collect. GEOFF Byrd will get routine lab from picc. @5516 * Nino Ramírez MD - 02/27/2024 10:34 [...] POA, Stage 2 - Wound care per [facility] nurse Hypokalemia, intermittent Anemia, stable. 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 Naina Merritt MBBS, 02/27/2024 8:42 AM [facility] Surgery Service Surgery Discharge Milestones (Inpatient Primary [...] POA, Stage 2 - Wound care per [facility] nurse Hypokalemia (Resolved) Anemia, stable. [...] Pertinent labs and imaging personally reviewed in [facility] and applied to medical decision making. Ernestine Toribio MD, 02/26/2024 3:57 PM Hospitalist - Department of Medicine Page via [facility] MDM: The patient's problem complexity is: [x] [...] (reviewing labs/imaging) [x] I talked to a life consultant and/or members of the case management and nursing team During this visit, I also did the following adding to morbidity of this patient [] I escalated the level of care [] I held a goals of care discussion [] I prescribed opiates/benzos [x] I continued/started a medication requiring intensive monitoring for toxicity * Kianna Rice Edna, RD - 02/26/2024 2:29 PM CDT Problem: [...] If advanced, please add an order for [place] Boost each meal If unable to advance [...] check TG weekly Estimated Nutritional Needs: Calories: 6946-6698 Protein: 75+ grams/day Fluid: per primary team [...] Manning Segundo - : 1965 - MR# [id number] - Date: 02/26/2024 Reason For Consultation: The patient is being seen in consultation at the request of irrigator sprinkling system for evaluation of skin breakdown to labia. [...] identified. WOCN available Thursday through Thursday on [employer] or [phone] Isidoro Guerrero CWON, 02/26/2024 1:08 PM * Davian Toledo RN - 02/26/2024 12:37 PM CDT 02/26/24 1235 Rapid Rounds Attendance pest control worker;Bedside nurse;manager drug safety Patient expects to be discharged to: Accepted to [facility] Today we still await: Clinical stability (Continues [...] RN, 02/25/2024 10:19 PM, clinical instructor for [facility] * Felipe Mercer PTA - 02/25/2024 [...] Participation Significantly Limited?: No Intervention: Positioning;Performed Exercises O:Employee Communications Coordinator Used: None needed Mental Status Mental Status: [...] STS transfer with no AD, with this investigative writer using bear hug and blocking B [...] seated balance, STS, stand pivot, standing tolerance. CHEMICAL PROCESSING SUPERVISOR Appropriate: Yes (For EOB activity and standing/transfers, no gait) Felipe Mercer PTA 02/25/2024 Pager: [facility] PT Dept Problem: Decreased Transfer Skills Goal: Patient will transfer supine to/from sit Description: Patient will transfer supine to/from sit with (6) Modified Major in order to safely mobilize OOB by [...] manual wheelchair propulsion >20m with (6) Modified Major in order to progress toward PLOF by [...] POA, Stage 2 - Wound care per [facility] nurse Hypokalemia (Resolved) Anemia, stable. [...] Pertinent labs and imaging personally reviewed in [facility] and applied to medical decision making. Ernestine Toribio MD, 02/25/2024 2:20 PM Hospitalist - Department of Medicine Page via [facility] MDM: The patient's problem complexity is: [x] [...] (reviewing labs/imaging) [x] I talked to a life consultant and/or members of the case management and nursing team During this visit, I also did the following adding to morbidity of this patient [] I escalated the level of care [] I held a goals of care discussion [] I prescribed opiates/benzos [x] I continued/started a medication requiring intensive monitoring for toxicity * Eugenia Mead, MIRTHAR/Bethanie - 02/25/2024 1:45 PM CDT Occupational Therapy [...] on each: Self care/Home mgmt/ADL: 40 minutes Eugenia Mead OTR/L Pager: [facility] OT Department * Courtney Potts LGSW - 02/25/2024 10:53 AM CDT SW spoke to Ashley in [facility] to let her know patient is still not medically ready will update her tomorrow at [phone]. * Humphrey Turner MD - 02/25/2024 7:07 [...] compartments soft. Output by Drain (mL) 02/23/24 07 - 02/23/24 1459 02/23/24 1500 - 02/23/24225802/23/24 2300 - 02/24/24 0659 02/24/24 0700 - 02/24/24 1459 02/24/24 1500 - 02/24/24 22502/24/24 2300 - 02/25/24 0659 02/25/24 0700 - 02/25/24 0707 Requested LDAs do not have output data documented. Labs: Lab Results Component Value Date/Time WBC 2.69 (L) 02/25/2024 06 WBC 3.55 (L) 02/24/2024 1125 WBC 3.17 (L) 02/23/2024 0846 HGB 9.2 (L) 02/25/2024 06 HGB 8.6 (L) 02/24/2024 1125 HGB 9.7 (L) 02/23/2024 0846 PLT 132 (L) 02/25/2024 06 PLT 146 (L) 02/24/2024 1125 PLT 138 [...] Humphrey Turner MD Orthopedic Surgery PGY-3 * Lumbard, Jonnie Jaime MD - 02/25/2024 5:28 AM CDT PURPLE [...] (L) 02/25/2024 0622 PLT 132 (L) 02/25/2024 0622 Lab Results Component Value Date/Time NA 133 (L) 02/25/2024 0622 K 3.1 (L) 02/25/2024 0622 CHLORIDE 99 02/25/2024 0622 CO2 27 02/25/2024 0622 GLU 77 02/25/2024 0622 UN 10 02/25/2024 0622 CR 0.48 (L) 02/25/2024 0622 CA 7.8 (L) 02/25/2024 0622 Lab Results Component Value Date/Time PO4 3.5 02/25/2024 0622 Lab Results Component Value Date/Time MG 2.2 02/23/2024 0846 RADIOLOGY: 02/24/24 Abdominal Xray: Ongoing sigmoid distension, moderately increased from previous abdominal xray 02/20/24 CT Abd/Pelvis: Noted ventral hernia. Baudilio Dawkins, MS, 02/25/2024 8:53 AM [facility] Surgery Service I Cecilio Salazar MD, saw the patient with the medical student and performed, or re- performed, the physical exam and medical decision-making and have verified the accuracy of all the medical student documentation and edited as necessary. Cecilio Salazar MD, 02/25/2024 9:47 AM General Surgery, PGY-5 P: [phone] Surgery Discharge Milestones (Inpatient Primary Team only): [...] POA, Stage 2 - Wound care per [facility] nurse Hypokalemia (Resolved) Anemia, stable. [...] Pertinent labs and imaging personally reviewed in Epic and applied to medical decision making. 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 ) * Lumbard, Jonnie C, MD - 02/24/2024 8:53 AM CDT PURPLE [...] Abd/Pelvis: Noted ventral hernia. Baudilio Dawkins MS, 02/24/2024 8:56 AM [facility] Surgery Service Surgery Discharge Milestones (Inpatient Primary [...] Participation Significantly Limited?: No Intervention: Positioning;Notified RN O:Employee Communications Coordinator Used: None needed Mental Status Mental Status: [...] transfer supine to/from sit with (6) Modified Major in order to safely mobilize OOB by [...] manual wheelchair propulsion >20m with (6) Modified Major in order to progress toward PLOF by 03/04/24. Outcome: In progress CHEMICAL PROCESSING SUPERVISOR Appropriate: Yes (For EOB activity and standing/transfers, no gait) Mando Briceno, PT 02/23/2024 Pager: [facility] PT Dept * Eugenia Mead, OTR/L - 02/23/2024 3:49 PM CDT Occupational [...] deflated Pain Pain Rating With Activity (Numeric): 3/10 Location: RLE Participation Significantly Limited?: No Action Taken: Nursing aware and addressing;Repositioned patient with reported relief OBJECTIVE: Activities of Daily Living Toileting: Dependent (less than 25% patient effort) Toileting Comments: Jerome valentin in sigmoid Functional Mobility Supine to/from Sit: [...] Interdisciplinary Communication: RN: ok to see MD: zenobia to mobilize with cano catheter in sigmoid [...] care/Home mgmt/ADL: 30 minutes LILY Ling/Bethanie Pager: [facility] OT Department * Jonnie Matta MD - [...] w/left femur fx s/p IMN w/ ortho /. On admission there was concern for sigmoid [...] Reviewed. Baudilio Dawkins, MS, 02/23/2024 1:43 PM [facility] Surgery Service RESIDENT WITH STUDENT: I saw [...] CDT MEDICINE PROGRESS NOTE - Staff Cathy SANTOS: 1965 Sex: female Patient Summary: Cathy Raymond [...] POA, Stage 2 - Wound care per [facility] nurse Hypokalemia (Resolved) Anemia, stable. [...] Pertinent labs and imaging personally reviewed in [facility] and applied to medical decision making. Ernestine Toribio MD, 02/23/2024 1:33 PM Hospitalist - Department of Medicine Page via [facility] MDM: The patient's problem complexity is: [x] [...] (reviewing labs/imaging) [x] I talked to a life consultant and/or members of the case management [...] Participation Significantly Limited?: No Intervention: Positioning;Notified RN O:Employee Communications Coordinator Used: None needed Mental Status Mental Status: [...] transfer supine to/from sit with (6) Modified Major in order to safely mobilize OOB by [...] manual wheelchair propulsion >20m with (6) Modified Major in order to progress toward PLOF by 03/04/24. Outcome: In progress CHEMICAL PROCESSING SUPERVISOR Appropriate: Yes (For EOB activity and standing/transfers with Stacy Stedy, no gait) Mando Briceno, PT 02/22/2024 Pager: [facility] PT Dept * Eugenia Mead OTR/L - [...] care/Home mgmt/ADL: 40 minutes LILY Ling/Bethanie Pager: [facility] OT Department * Courtney Potts LGSW - 02/22/2024 2:34 PM CDT GINNY spoke to Ashley for [facility] [phone] can take the patient on Thursday. Please [...] POA, Stage 2 - Wound care per [facility] nurse Hypokalemia (Resolved) Anemia, stable. [...] Pertinent labs and imaging personally reviewed in [facility] and applied to medical decision making. Francy Mc MD, 02/22/2024 11:31 AM Hospitalist - Department of Medicine Page via [facility] * Chalo Shrestha MD - 02/22/2024 10:56 [...] Reviewed. Naina Merritt MBBS, 02/22/2024 10:56 AM [facility] Surgery Service, PGY-1 Surgery Discharge Milestones (Inpatient [...] diet as able Estimated Nutritional Needs: Calories: 2640-2715 Protein: 75+ grams/day Fluid: per primary team [...] BMI: Body mass index is 32.99 kg/m??. Drexel body weight: 63.6 kg Weight hx: 87 [...] Results Component Value Date/Time WBC 3.82 (L) 02/22/2024617 RBC 2.68 (L) 02/22/2024617 HGB 8.1 (L) 02/22/2024617 HCT 25.4 (L) 02/22/2024617 PLT 115 (L) 02/22/2024617 MCV 94.8 02/22/2024617 MCH 30.2 02/22/2024617 MCHC 31.9 02/22/2024 0618 RDW 15.3 (H) [...] POA, Stage 2 - Wound care per [facility] nurse Hypokalemia (Resolved) Anemia, stable. [...] Pertinent labs and imaging personally reviewed in [facility] and applied to medical decision making. Francy Mc MD, 02/21/2024 10:31 AM Hospitalist - Department of Medicine Page via [facility] * Naina Merritt MBBS - 02/21/2024 9:29 [...] Reviewed. Naina Merritt MBBS, 02/21/2024 9:45 AM [facility] Surgery Service, PGY-1 Surgery Discharge Milestones (Inpatient [...] POA, Stage 2 - Wound care per [facility] nurse Hypokalemia (Resolved) Anemia, stable. [...] Pertinent labs and imaging personally reviewed in [facility] and applied to medical decision making. Francy Mc MD, 02/20/2024 4:07 PM Hospitalist - Department of Medicine Page via [facility] * Francy Mc MD - 02/19/2024 6:28 [...] POA, Stage 2 - Wound care per [facility] nurse Hypokalemia (Resolved) Anemia, stable. [...] ??F) Intake/Output Summary (Last 24 hours) at 02/19/20241827 Last data filed at 02/19/2024 1300 Gross [...] Pertinent labs and imaging personally reviewed in [facility] and applied to medical decision making. Francy Mc MD, 02/19/2024 6:28 PM Hospitalist - Department of Medicine Page via [facility] * Courtney Potts LGSW - 02/19/2024 2:36 PM CDT SW spoke with patient yesterday [facility] Patient was agreeable to placement there. [...] given regarding post-care. * Mindy Swan APRN, RALPH - 02/18/2024 12:49 PM CDT Palliative Care [...] questions or concerns. Mindy Swan APRN, CNP, 02/18/2024 12:49 PM Palliative Medicine Available [facility] Advance Care Planning Primary Care: No primary [...] their hobbies, activities and interests, spirituality or hinduism, personal experience with end of life, and [...] POA, Stage 2 - Wound care per [facility] nurse Hypokalemia (Resolved) Anemia, stable. [...] Pertinent labs and imaging personally reviewed in [facility] and applied to medical decision making. Francy Mc MD, 02/18/2024 11:34 AM Hospitalist - Department of Medicine Page via [facility] * Rose Marie Leigh MD - 02/18/2024 [...] Component Value Ref Range Date/Time URINE CULTURE [[id number]] Collected: 02/02/24 170 Specimen: Urine Updated: 02/02/242204 BODY FLUID CULTURE:INCLUDES GRAM STAIN [[id number]] Collected: 02/02/241950 Specimen: Peritoneal Fluid from Peritoneum [...] in 4 weeks with 2V XR R femur Mira Espinoza MD Orthopaedic Surgery, PGY-3 Orthopedic Staff Note: Patient was discussed with team and above documentation reviewed. Agree with note and care plan as described above. DVT prophylaxis confirmed on DEC. Rose Marie Leigh MD, 02/18/2024 11:26 AM Orthopedic Dept. Staff Physician * Mando Briceno N, PT - 02/17/2024 4:40 PM CDT Physical [...] transfer supine to/from sit with (6) Modified Major in order to safely mobilize OOB by [...] manual wheelchair propulsion >20m with (6) Modified Major in order to progress toward PLOF by 02/19/24. Outcome: In progress CHEMICAL PROCESSING SUPERVISOR Appropriate: No (has not stood) Mando Briceno, PT 02/17/2024 Pager: [facility] PT Dept * Francy Mc MD - [...] Female at 02/17/2024 7:19 AM - Continue CHEMICAL PROCESSING SUPERVISOR dose of Furosemide and Spironolactone (increased today) [...] Pertinent labs and imaging personally reviewed in [facility] and applied to medical decision making. Francy Mc MD, 02/17/2024 2:56 PM Hospitalist - Department of Medicine Page via [facility] * Mando Briceno, PT - 02/16/2024 2:18 [...] Mead OTR/L, 02/16/2024 2:01 PM * Francy cM MD - 02/16/2024 9:50 AM CDT MEDICINE [...] 8:12 AM - Continue decreased doses of CHEMICAL PROCESSING SUPERVISOR Furosemide and Spironolactone Urinary retention Patient noted [...] Pertinent labs and imaging personally reviewed in [facility] and applied to medical decision making. Francy Mc MD, 02/16/2024 9:50 AM Hospitalist - Department of Medicine Page via [facility] * Ernestine Toribio MD - 02/15/2024 5:16 [...] 6:48 AM - Continue decreased doses of CHEMICAL PROCESSING SUPERVISOR Furosemide and Spironolactone Urinary retention Patient noted [...] Pertinent labs and imaging personally reviewed in [facility] and applied to medical decision making. Ernestine Toribio MD, 02/15/2024 5:16 PM Hospitalist - Department of Medicine Page via [facility] MDM: The patient's problem complexity is: [x] [...] (reviewing labs/imaging) [x] I talked to a life consultant and/or members of the case management [...] transfer supine to/from sit with (6) Modified Major in order to safely mobilize OOB by [...] manual wheelchair propulsion >20m with (6) Modified Major in order to progress toward PLOF by 02/19/24. Outcome: In progress CHEMICAL PROCESSING SUPERVISOR Appropriate: No (has not stood) Mando Briceno, PT 02/15/2024 Pager: [facility] PT Dept * Eugenia Mead OTR/Bethanie - 02/15/2024 1:51 PM CDT Occupational Therapy [...] on each: Self care/Home mgmt/ADL: 35 minutes AUDIE Ling Pager: [facility] OT Department * Ernsetine Toribio MD - 02/14/2024 3:56 PM CDT [...] 8:18 AM - Continue decreased doses of CHEMICAL PROCESSING SUPERVISOR Furosemide and Spironolactone Urinary retention Patient noted [...] Pertinent labs and imaging personally reviewed in [facility] and applied to medical decision making. Ernestine Toribio MD, 02/14/2024 3:56 PM Hospitalist - Department of Medicine Page via [facility] MDM: The patient's problem complexity is: [x] [...] (reviewing labs/imaging) [x] I talked to a life consultant and/or members of the case management and nursing team During this visit, I also did the following adding to morbidity of this patient [] I escalated the level of care [] I held a goals of care discussion [] I prescribed opiates/benzos [x] I continued/started a medication requiring intensive monitoring for toxicity * Ernetsine Toribio MD - 02/13/2024 1:29 PM CDT [...] 9:06 AM - Continue decreased doses of CHEMICAL PROCESSING SUPERVISOR Furosemide and Spironolactone Urinary retention Patient noted [...] Pertinent labs and imaging personally reviewed in [facility] and applied to medical decision making. Ernestine Toribio MD, 02/13/2024 1:29 PM Hospitalist - Department of Medicine Page via [facility] MDM: The patient's problem complexity is: [x] [...] (reviewing labs/imaging) [x] I talked to a life consultant and/or members of the case management [...] weeks ago). Paracentesis in ED and on 5/6. MELD 3.0: 20 at 02/12/2024 8:50 AM [...] 8:50 AM - Continue decreased doses of CHEMICAL PROCESSING SUPERVISOR Furosemide and Spironolactone Urinary retention Patient noted [...] Pertinent labs and imaging personally reviewed in [facility] and applied to medical decision making. Ernestine Toribio MD, 02/12/2024 12:47 PM Hospitalist - Department of Medicine Page via [facility] MDM: The patient's problem complexity is: [x] [...] (reviewing labs/imaging) [x] I talked to a life consultant and/or members of the case management [...] Selected Services Address Phone Fax Patient Preferred [facility] Pending - Request Sent N/A [address] [facility] [address] -- Internal Comment last updated by Eden Keane 02/12/2024 1106 LVM for admissions Eden Keane, 02/12/2024 11:06 AM [facility] Pending - Request Sent N/A [address] [facility] [address] -- Internal Comment last updated by Eden Keane 02/12/2024 1108 LVM for admissions.Eden Keane, 02/12/2024 11:08 AM Lm with admissions to call back [facility] Declined N/A [address] [facility] [address] -- Internal Comment last updated by Courtney Potts LGSW 02/08/[address] a year ago [facility] Declined Bed not available N/A [address] [place] [address] [phone] -- [facility] Declined Bed not available N/A [address] [facility] [address] [phone] -- Internal Comment last updated by Eden [...] transfer supine to/from sit with (6) Modified Major in order to safely mobilize OOB by [...] manual wheelchair propulsion >20m with (6) Modified Major in order to progress toward PLOF by 02/19/24. Outcome: In progress P: PT 2-4 x week for duration of hospital stay or until goals achieved, for bed mobility, transfersand stand pivot to chair. Next visit sit edge of bed, attempt to stand or mechanical lift to chair CHEMICAL PROCESSING SUPERVISOR Appropriate: No (has not stood) Saranya Parker, PT 02/12/2024 Pager: [facility] PT Dept * Eugenia Mead, OTR/L - [...] care/Home mgmt/ADL: 40 minutes LILY Ling/Bethanie Pager: [facility] OT Department * Barbara Blevins PA-C - [...] service including pre-visit review of separatelyobtained history, [id number] interaction performing medically appropriate physical exam, patient counseling/education, interpretation of diagnostic results, care coordination and documentation was 50 minutes. REVIEW OF LABORATORY, PATHOLOGY AND RADIOLOGY DATA: LABS BMP Recent Labs 02/10/2470502/11/24 07 NA 132* 132* K 4.0 4.2 CHLORIDE 99 98 CO2 26 28 UN 14 15 CR 0.53 0.56 GLU 83 84 CBC Recent Labs 02/10/24 0702/11/24 0725 HGB 9.2* 8.8* WBC 6.87 5.83 PLT 221 197 LFT Lab Results Component Value Date/Time ALBUMIN 2.3 (L) 02/11/2024 0725 ALP 126 (H) 02/11/2024 07 ALT <5 02/11/2024 07 AST 34 02/11/2024 07 BILIDIR 0.4 (H) 02/11/2024 07 TBILI 0.9 02/11/2024 07 TPRO 6.3 (L) 02/11/2024 07 INR Lab Results Component Value Date/Time PT [...] 7:25 AM - Continue decreased doses of CHEMICAL PROCESSING SUPERVISOR Furosemide and Spironolactone Urinary retention Patient noted [...] Pertinent labs and imaging personally reviewed in [facility] and applied to medical decision making. Ernestine Toribio MD, 02/11/2024 3:19 PM Hospitalist - Department of Medicine Page via [facility] MDM: The patient's problem complexity is: [x] [...] (reviewing labs/imaging) [x] I talked to a life consultant and/or members of the case management [...] for PT today, on her way to CT. Will see tomorrow as able Saranya Parker, PT Pager:[email or web address] License Number [id number] 02/11/2024 * Eugenia Mead OTR/L - 02/11/2024 2:38 PM CDT Occupational Therapy Note: Arrived for OT session however pt being transported to CT, pt reports feeling awful today. OT will follow up at a later date. Eugenia Mead OTR/L, 02/11/2024 2:39 PM * Mindy Swan, WATER TREATMENT PLANT ENGINEER, PATIENT REGISTRAR - 02/11/2024 11:12 AM CDT Palliative Care [...] hesitate to call with questions or concerns. Beny Mindy L, DARIO, RALPH, 02/11/2024 11:22 AM Palliative Medicine Available [facility] Advance Care Planning Primary Care: No primary [...] their hobbies, activities and interests, spirituality or hinduism, personal experience with end of life, and [...] CDT Orthopaedic Surgery Progress Note 02/11/2024 S: DSEIRE. CAROLINAS. Nursing notes reviewed. Patient sleeping comfortably. Patient's [...] Component Value Ref Range Date/Time URINE CULTURE [[id number]] Collected: 02/02/241702 Specimen: Urine Updated: 02/02/242204 BODY FLUID CULTURE:INCLUDES GRAM STAIN [[id number]] Collected: 02/02/241950 Specimen: Peritoneal Fluid from Peritoneum [...] with assist of 2 from nursing ralph palacios From a PT standpoint, continuing to recommend [...] transfer supine to/from sit with (6) Modified Major in order to safely mobilize OOB by [...] manual wheelchair propulsion >20m with (6) Modified Major in order to progress toward PLOF by 02/19/24. Outcome: In progress CHEMICAL PROCESSING SUPERVISOR Appropriate: No (needs mobility progressed) Mando Briceno, PT 02/10/2024 Pager: [facility] * Ernestine Toribio MD - [...] Pertinent labs and imaging personally reviewed in [facility] and applied to medical decision making. Ernestine Toribio MD, 02/10/2024 2:50 PM Hospitalist - Department of Medicine Page via [facility] MDM: The patient's problem complexity is: [x] [...] (reviewing labs/imaging) [x] I talked to a life consultant and/or members of the case management and nursing team During this visit, I also did the following adding to morbidity of this patient [] I escalated the level of care [] I held a goals of care discussion [] I prescribed opiates/benzos [x] I continued/started a medication requiring intensive monitoring for toxicity * TyronealexandriaMartha malonee, OTR/L - 02/10/2024 2:07 PM CDT Occupational Therapy [...] care/Home mgmt/ADL: 25 minutes LILY Ling/Bethanie Pager: [facility] OT Department * Yuni Fernandez - 02/10/2024 [...] Orthopaedic Surgery Progress Note 02/10/2024 S: NAEO. LANIER. Nursing notes reviewed. Patient sleeping comfortably. O: [...] Component Value Ref Range Date/Time URINE CULTURE [[id number]] Collected: 02/02/241702 Specimen: Urine Updated: 02/02/242204 BODY FLUID CULTURE:INCLUDES GRAM STAIN [[id number]] Collected: 02/02/241950 Specimen: Peritoneal Fluid from Peritoneum [...] drawsheet) Sit to/from Stand: (Attempted with Stacy Mo and assist of 2, however patient unable [...] transfer supine to/from sit with (6) Modified Major in order to safely mobilize OOB by [...] manual wheelchair propulsion >20m with (6) Modified Major in order to progress toward PLOF by 02/19/24. Outcome: In progress CHEMICAL PROCESSING SUPERVISOR Appropriate: No (needs mobility progressed) Mando Briceno, PT 02/09/2024 Pager: [facility] PT Dept * Eugenia Mead OTR/L - 02/09/2024 11:00 AM CDT Occupational [...] care/Home mgmt/ADL: 45 minutes LILY Ling/Bethanie Pager: [facility] OT Department * Ernestine Toribio MD - [...] Pertinent labs and imaging personally reviewed in [facility] and applied to medical decision making. Ernestine Toribio MD, 02/09/2024 8:08 AM Hospitalist - Department of Medicine Page via [facility] MDM: The patient's problem complexity is: [x] [...] (reviewing labs/imaging) [x] I talked to a life consultant and/or members of the case management [...] Component Value Ref Range Date/Time URINE CULTURE [[id number]] Collected: 02/02/241702 Specimen: Urine Updated: 02/02/242204 BODY FLUID CULTURE:INCLUDES GRAM STAIN [[id number]] Collected: 02/02/241950 Specimen: Peritoneal Fluid from Peritoneum [...] Constipation # Insomnia # GERD - Continue CHEMICAL PROCESSING SUPERVISOR cetirizine, citalopram, gabapentin, levothyroxine, pantoprazole, PEG/senna, trazodone [...] Female at 02/08/2024 8:19 AM Charge Capture Reversing Mill Roller * Mando Briceno, PT - 02/08/2024 12:10 PM CDT Chart reviewed for PT follow-up session this AM, session attempted - unable to see as patient at procedure, will reattempt later this date vs tomorrow as time allows. Mando Briceno, PT, 02/08/2024 12:10 PM * Jesse Pineda RN - 02/08/2024 11:46 AM CDT TRANSFER NOTE Report called to nurse, of Cathy Raymond at [facility] Patient transported back to [facility] via Bed, Accompanied by Transporter, Patient's condition [...] Component Value Ref Range Date/Time URINE CULTURE [[id number]] Collected: 02/02/241702 Specimen: Urine Updated: 02/02/242204 BODY FLUID CULTURE:INCLUDES GRAM STAIN [[id number]] Collected: 02/02/241950 Specimen: Peritoneal Fluid from Peritoneum [...] Constipation # Insomnia # GERD - Continue CHEMICAL PROCESSING SUPERVISOR cetirizine, citalopram, gabapentin, levothyroxine, pantoprazole, PEG/senna, trazodone [...] Female at 02/07/2024 6:05 AM Charge Capture Reversing Mill Roller * Dayo Henning MD - 02/07/2024 7:58 [...] Component Value Ref Range Date/Time URINE CULTURE [[id number]] Collected: 02/02/24 170 Specimen: Urine Updated: 02/02/242204 BODY FLUID CULTURE:INCLUDES GRAM STAIN [[id number]] Collected: 02/02/241950 Specimen: Peritoneal Fluid from Peritoneum [...] Constipation # Insomnia # GERD - Continue CHEMICAL PROCESSING SUPERVISOR cetirizine, citalopram, gabapentin, levothyroxine, pantoprazole, PEG/senna, trazodone [...] Female at 02/06/2024 7:10 AM Charge Capture Reversing Mill Roller * Cely Buck DPM - 02/06/2024 8:46 [...] patient's care at this time. Please page insulation foreman resident with questions. INTERVAL ILLNESS: Patient seen [...] Component Value Ref Range Date/Time URINE CULTURE [[id number]] Collected: 02/02/241702 Specimen: Urine Updated: 02/02/242204 BODY FLUID CULTURE:INCLUDES GRAM STAIN [[id number]] Collected: 02/02/241950 Specimen: Peritoneal Fluid from Peritoneum [...] Constipation # Insomnia # GERD - Continue CHEMICAL PROCESSING SUPERVISOR cetirizine, citalopram, gabapentin, levothyroxine, pantoprazole, PEG/senna, trazodone [...] Female at 02/05/2024 9:15 AM Charge Capture Reversing Mill Roller * Gladys Samuels DPM - 02/05/2024 7:46 [...] continue to follow while inpatient. Please page insulation foreman resident with questions. Patient was discussed with insulation foreman staff, Dr. Samuels CHIEF COMPLAINT: Right foot [...] initial encounter for closed fracture (CMS) 02/02/2024 CURRENT HEALTH STATUS Medications: Current Facility-Administered Medications Medication Route Frequency clotrimazole (LOTRIMIN) 1% cream Topical bid bisacodyl (DULCOLAX) suppository 10 mg Rectal daily nystatin 431742 unit/g powder Topical bid citalopram (CeleXA) tablet [...] Component Value Ref Range Date/Time URINE CULTURE [[id number]] Collected: 02/02/241702 Specimen: Urine Updated: 02/02/242204 BODY FLUID CULTURE:INCLUDES GRAM STAIN [[id number]] Collected: 02/02/241950 Specimen: Peritoneal Fluid from Peritoneum [...] Constipation # Insomnia # GERD - Continue CHEMICAL PROCESSING SUPERVISOR cetirizine, citalopram, gabapentin, levothyroxine, pantoprazole, PEG/senna, trazodone [...] Female at 02/04/2024 6:40 AM Charge Capture Reversing Mill Roller * Macy Paul MD - 02/04/2024 7:31 AM CDT RAILROAD SURGERY TRAUMA PROGRESS NOTE Cathy Raymond : [...] indicated at this time. We recommend continuing [id number] discussions with her primary team and palliative care, however, as she remains high risk for future surgeries given her medical co-morbidities. Surgery will sign-off at this time; please page the Green surgery team pager via [employer] with any future questions or concerns. PHYSICAL [...] Results Component Value Date/Time WBC 5.74 02/03/2024 08 RBC 3.08 (L) 02/03/2024 08 HGB 9.4 (L) 02/03/2024 08 HCT 28.1 (L) 02/03/2024 08 PLT 155 02/03/2024 08 Hepatic Lab Results Component Value Date/Time ALBUMIN 2.2 (L) 02/03/2024 0803 ALP 98 02/03/2024 0803 ALT 16 02/03/2024 0803 AST 36 02/03/2024 0803 BILIDIR 0.5 (H) 02/03/2024 08 TBILI 0.9 02/03/2024 0803 TPRO 5.5 (L) 02/03/2024 08 Coagulation Lab Results Component Value Date/Time PT [...] the patient on the date of the investigative writer's note. I discussed with the investigative writer of the note and agree with their findings and plan documented in the investigative writer's note from above. Any revisions by [...] Component Value Ref Range Date/Time URINE CULTURE [[id number]] Collected: 02/02/241702 Specimen: Urine Updated: 02/02/242204 BODY FLUID CULTURE:INCLUDES GRAM STAIN [[id number]] Collected: 02/02/241950 Specimen: Peritoneal Fluid from Peritoneum [...] new results of positive blood cx from [place] as well as one from [facility]. They arereportedly two different classes of bacteria [...] DC per protocol. * Carter Maurer APRN, PATIENT REGISTRAR - 02/03/2024 12:20 PM CDT SURGERY PROGRESS NOTE--RAIL CAR UNLOADER Cathy Kerrigracie Raymond : 1965 Sex: female SIGNIFICANT EVENTS [...] 5.74 02/03/2024 0803 RBC 3.08 (L) 02/03/2024 08 HGB 9.4 (L) 02/03/2024 08 HCT 28.1 (L) 02/03/2024 08 PLT 155 02/03/2024 08 ASSESSMENT: Cathy Raymond is a 58 year [...] Appreciate Recs Disposition: TBD -Per primary team Nyandika, Carter A, WATER TREATMENT PLANT ENGINEER, RALPH, 02/03/2024 12:21 PM [facility] Department of Surgery Pager: via telemediq I have spent 30 minutes with this patient today in which greater than 50% of this time was spent incounseling/coordination of care regarding in patient care, review of imaging/labs, chart review andconsultant recommendations. Dictation Disclaimer: Some notes are completed with voice-recognition dictation software. Errors are generally corrected in real time. Please contact me via [employer] staff message if you note any errors requiring clarification. Associated attestation - Moises Montana MD - 02/09/2024 3:39 PM CDT FACULTY NOTE I saw and evaluated the patient on the date of the investigative writer's note. I discussed with the investigative writer of the note and agree with their findings and plan documented in the investigative writer's note from above. Any revisions by me are documented. Moises Montana MD, 02/09/2024 3:39 PM * Sara Hdez RN - 02/03/2024 12:09 PM CDTSummary: Discharge planning Care Coordination Assessment Patient Name: Cathy Raymond Date: 02/03/2024 Expected DC Date: 02/06/2024 Social Information Employee Communications Coordinator Used: None needed Decision Maker at Admission: Self Living Situation: Home Patient Identified Support System: Services Receiving: CUSHION ASSEMBLER / Skilled Services ([facility] for OT, PT, RN) Complex Medical Needs: None Transportation Used for Discharge: stretcher Safety Concerns: None Behavioral Health Concerns: None Patient Family Goals Patient's Discharge Goal: agreeable to consider TCU in [place] Family's Discharge Goal: n/a Plan/Interventions Discharge Plan: SNF Was Patient Choice Provided?: Yes Who was Choice Provided to?: Patient Patient Information Verification Verified demographic information, including SSN, Next of Kin, and Guardianship: Yes Verified PCP: Yes If post-acute placement is needed, have vaccination status needs been addressed?: Not applicable Risks for Readmission: None Summary of pertinent information: Patient admitted in transfer from [facility] with concern for left femur fracture from a fall and sigmoid volvulus. She continues to await medical clearancefor surgery. Had patient sign FRED to get imaging pushed from both [place] and [facility]. Sent FRED to both places, anticipate that imaging should be available soon. Anticipate that she will require TCU placement. She prefers [place] and has been at facilities there previously. Currently open to home care through [facility]. Will continue to follow. Sara Hdez RN, [...] imaging since 2016 # Possible sigmoid volvulus versus chronic sigmoid [...] Constipation # Insomnia # GERD - Continue CHEMICAL PROCESSING SUPERVISOR cetirizine, citalopram, gabapentin, levothyroxine, pantoprazole, PEG/senna, trazodone - HOLD oxybutynin - Check Hb A1c Subjective/Events of Past 24 Hours: Hospital Day: 1 Reports fine No nausea or vomiting No abdominal pain Objective: Physical Exam GEN: NAD, laying in bed RES: clear lungs, on wheezing, rales or rhonchi CV: r/r/r, no murmurs, rubs or gallops ABD: distended Labs reviewed Charge Capture Reversing Mill Roller * Giselle Johansen MD - 02/03/2024 4:42 [...] PLT 176 02/02/2024 1601 CR 0.72 02/02/2024 160 Lab Results (Last 120 hours) Procedure Component Value Ref Range Date/Time URINE CULTURE [[id number]] Collected: 02/02/241702 Specimen: Urine Updated: 02/02/242204 BODY FLUID CULTURE:INCLUDES GRAM STAIN [[id number]] Collected: 02/02/241950 Specimen: Peritoneal Fluid from Peritoneum [...] risk of post-operative mortality as estimated by VOCAL-[place] Score - Overall, the patient is medically [...] Constipation # Insomnia # GERD - Continue CHEMICAL PROCESSING SUPERVISOR cetirizine, citalopram, gabapentin, levothyroxine, pantoprazole, PEG/senna, trazodone [...] (A) NEGATIVE Ketones TRACE (A) NEGATIVE Specific [place] 1.024 1.003 - 1.030 Blood Ur LARGE (A) Neg-Trace PH Urine 6.0 5.0 - 7.0 Protein Ur 30 (A) Neg-Trace Urobilinogen >=8 (A) NORMAL EU/dL Nitrite Ur NEGATIVE NEGATIVE Leuk Est SMALL (A) Neg-Trace WBC Ur 6-10 (A) 0 - 5 perHPF RBC Ur >20 (A) 0 - 3 perHPF SQ EPITH 0-5 0 - 5 perHPF Bacteria UA PRESENT Urinalysis Performed at: [facility] BODY FLUID CELL COUNT/DIFF Result Value Ref [...] MISCELLANEOUS BODY FLUID Result Value Ref Range [facility] Result 1.3 Units BF g/dL Narrative fluid: Peritoneal Test: TP documented in this encounter Procedure Notes * Patricia Dumont RN - 02/27/2024 11:40 AM CDTAssociated Order(s): PICC Line Images from the original note were not included. PICC Line Date/Time: 02/27/2024 11:40 AM Performed by: Patricia Dumont RN Authorized by: Nino Ramírez MD [facility] Protocol: Verbal consent obtained?: Yes Written consent [...] total length, 2 cm out secured with [id number]; AC to IS: 5 cm; Circumference 10 cm above AC: 24 cm) Catheter brand sales manager: My[employer] Lot Number: [id number] Pre-procedure: landmarks identified Ultrasound guidance: Yes Number [...] position. Reading Radiologist: Lukas Nava Pt, RN notified of chest x-ray result and will [...] to verify the correct patient, procedure, equipment, clerical support and site/side marked as required. Initial [...] to verify the correct patient, procedure, equipment, clerical support and site/side marked as required. Initial [...] to verify the correct patient, procedure, equipment, clerical support and site/side marked as required. Initial [...] and cytology examination : No Patient to [facility] for post-procedure monitoring. Patient education sheets given regarding post-care. * Humphrey Rose MD - 02/02/2024 10:03 PM CDTAssociated Order(s): Paracentesis Paracentesis Performed by: Cooper Loaiza MD Authorized by: Humphrey Rose MD Consent: Consent obtained: Verbal Consent given by: Patient Risks discussed: Bleeding, bowel perforation and infection Alternatives discussed: No treatment [facility] protocol: Patient identity confirmed: Verbally with patient [...] Analgesia without sedation, anxiolysis and regional anesthesia [facility] protocol: Procedure explained and questions answered to [...] vital sign checks, continuous pulse oximetry and traffic monitor specialist Intra-procedure events: respiratory depression Intra-procedure management: [...] 02/20/2024 6:27 PM General Surgery, PGY-2 Pager: [phone] or [employer] Chief Complaint: Abdominal pain/distention History of Present [...] 0744 GLU 83 02/20/2024 0744 UN 15 02/20/2024743 CR 0.61 02/20/2024743 CA 8.0 (L) 02/20/2024743 CBC Lab Results Component Value Date/Time WBC 3.10 (L) 02/20/2024743 RBC 2.63 (L) 02/20/2024743 HGB 8.7 (L) 02/20/20242036 HCT 25.7 (L) 02/20/2024743 PLT 116 (L) 02/20/2024743 Coagulation Lab Results Component Value Date/Time PT 16.0 (H) 02/16/2024811 INR 1.4 (H) 02/16/2024811 APTT 33.0 02/02/2024 1600 IMAGING: CT ABDOMEN/PELVIS W/IV CON (02/20/2024 19:05) 1. 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 No evidence of obstruction, volvulus, or perforation.Findings suggest Sully syndrome. 2. Postsurgical changes of Gina-en-Y gastric [...] BMI: Body mass index is 32.99 kg/m??. Drexel body weight: 63.6 kg Weight hx: 93 [...] included. Wound Ostomy Continence Nurse Consult Cathy Kerri Segundo - : 1965 - MR# [id number] - Date: 02/18/2024 Reason For Consultation: The [...] Description Partial thickness Consult Recommendations: Not applicable [facility] Nursing follow up: Appreciate the [...] identified. WOCN available Thursday through Thursday on [employer] or [phone] Cristela Gleason CWOCN, 02/18/2024 2:04 PM * Isidoro Guerrero CWON - 02/09/2024 2:42 PM CDT Images from the original note were not included. Wound Ostomy Continence Nurse Consult Cathy Manning Segundo - : 1965 - MR# [id number] - Date: 02/09/2024 Reason For Consultation: The patient is being seen in consultation at the request of irrigator sprinkling system for evaluation of ulceration to gluteal cleft. [...] Recommendations: Not applicable WOC Nursing follow up: weekly Staff to continue to follow skin injury bundle. Escalate concerns to WOCN through additional consult or to the provider when barriers are identified. WOCN available Thursday through Thursday on [employer] or [phone] Isidoro Guerrero CWON, 02/09/2024 2:43 PM * [...] seat;tub / shower chair;hand held shower head;grab bars;finance accounting internship Prior Level of Function: ADLs/IADLs: Received assistance from family / friends;Received assistance from CUSHION ASSEMBLER for hours per day / days per [...] to a TCU near her home in [place] when medically stable. (See box at the [...] Eval: 29 minutes Therapist: LILY Landaverde/Bethanie Pager: [facility] Occupational Therapy Department * Rose Marie Early, [...] riser, and son lift Services at home: CUSHION ASSEMBLER services MWF, home PT / OT / RN SUBJECTIVE Patient's Stated Goals: to get stronger and more independent with mobility Pain: / resting located in RLE 5/10 with activity [...] in near 90/90 hip/knee positioning (WFL for [facility] seating). Transfers & Bed Mobility: Supine to [...] reportedly Alycia with stand pivot transfers to [facility] (GLF during tx resulted in femur fx), has 24/7 assist from , CUSHION ASSEMBLER services 3x/wk, and home PT / OT [...] viasara steady, up to chair as appropriate. CHEMICAL PROCESSING SUPERVISOR Appropriate: No (needs mobility progressed) Participated in goal setting and treatment planning: Patient Agrees with goals and treatment plan: Patient - Yes. Rose Marie Early, PT 02/06/2024 Pager: [facility] PT Department * Dominic Castorena MD - [...] set of blood cultures were taken at [facility] in which 2 of 2 bottles grew [...] the original note were not included. Data: [facility] nurse met with patient to [...] over the next few days. Please page insulation foreman resident with questions. Patient was seen with insulation foreman staff, Dr. Roth PROCEDURE: Risks and benefits [...] States that she follows up with a tin container straightener in [place] and has had extensive surgery of the [...] CWOCN - 02/04/2024 3:36 PM CDT DAP: [facility] nursing attempted to see patient x 2 today, however patient was out of the room x2. Will re-attempt at a later date. Cristela Gleason CWOCN, 02/04/2024 3:36 PM * Mindy Swan APRN, PATIENT REGISTRAR - 02/03/2024 3:00 PM CDTAssociated Order(s): CONSULT [...] with questions or concerns. Mindy Swan APRN, PATIENT REGISTRAR, 02/03/2024 3:00 PM Palliative Medicine Available [employer] Advance Care Planning Primary Care: No primary [...] helps her at home along with a CUSHION ASSEMBLER. States that she broke her other femur [...] their hobbies, activities and interests, spirituality or hinduism, personal experience with end of life, and [...] review of CT scans from [facility] dated 07/08/2022 and [place] dated111/21/2020, it appears patient has had a chronically dilated sigmoid colon, possibly dating back [id number]. Also has known chronic constipation and neuropathy [...] MELD 3.0 16 Established at [facility], last seen 12/15/2013. Etiology felt to [...] cirrhosis. 09/20/2021 CT CAP with IV contrast ([place]): IMPRESSION: 1. Minimally more prominent left axillary [...] TO SURGERY GENERAL SURGERY CONSULT, PGY-2 Cathy Raymond : 1965 Sex: female Date of Service: [...] AND RADIOLOGY DATA: Lab results: Reviewed via [employer]. Radiology Results: Reviewed in [employer]. Patient seen by and discussed with Surgery Chief Resident and Staff Physician. Nestor Miranda MD, 02/03/2024 3:47 AM Associated attestation - Moises Montana MD - 02/09/2024 3:34 PM CDT FACULTY NOTE I saw and evaluated the patient on the date of the investigative writer's note. I discussed with the investigative writer of the note and agree with their findings and plan documented in the investigative writer's note from above. Any revisions by [...] acholic cirrhosis, R TKA around 2017 in [place], [place],L femur fx s/p surgical fixation ~ 2019 at [place], idiopathic progressive neuropathy, hypothyroidism,chronic neuropathic pain, DMII [...] - disability Lives with in house in [place], [place] ALLERGIES: Allergies Allergen Reactions Amoxicillin-Pot Clavulanate [...] Henning MD - 02/05/2024 4:06 PM CDT [facility] [id number] [facility] OPERATIVE REPORT PATIENT: Cathy Raymond : 1965 DATE OF PROCEDURE: 02/05/24 SURGEON: Dayo Henning MD - Primary SPANISH LECTURER SURGEON: Serge Parker DO - Fellow Ian [...] Implant Name Type Inv. Item Serial No. Implementation Lead Lot No. LRB No. Used Action FEMORAL NAIL RETROGRADE [id number] Krystle FEMORAL NAIL RETROGRADE [id number] [employer] [id number] Right 1 Implanted 5.0X60MM 2361-5060S Screw/[place] 5.0X60MM 2361-5060S [employer] [id number] Right 1 Implanted 5.0X70MM 2361-5070S Screw/[place] 5.0X70MM 2361-5070S [employer] [id number] Right 1 Implanted 5.0X75MM ADV 2361-5075S Screw/[place] 5.0X75MM ADV 2361-5075S [employer] [id number] Right 1 Implanted FREEHAND DRILL [id number] Drill bit/kiara FREEHAND DRILL [id number] [employer] [id number] Right1 Implanted 5.0X42.5MM 2360-5042S Screw/[place] 5.0X42.5MM 2360-5042S [employer] [id number] Right 1 Implanted INDICATIONS: Cathy Raymond is a 58 y.o. female who presented to [facility] with right leg pain after a fall. [...] proximal thigh. This was performed using perfect picayune technique. A stab incision was made over [...] primary nurse, Catarino. * Ileana Howell APRN, PATIENT REGISTRAR - 02/02/2024 9:19 PM CDT Transfer of [...] T2DM, HTN who presents as transfer from [facility] for RIGHT midshaft femur fracture after [...] Wt 98.8 kg (217 lb 13 oz) [id number]% Upon assuming care, I reviewed the chart, results of studies performed during their course in the ED, re-examined the patient, and discussed their care and plan with my supervising attending. Distended abd > CT unable to r/o volvulus Medicine team paged re: CT a/p results, surgery consulted and paged ED Course as of 02/02/242133 Tue Feb 02, 20242115 Weak at home, [facility] fall, R femur fx, UTI, lots of [...] NEGATIVE Bili UA TRACE(!) Ketones TRACE(!) Specific [place] 1.024 Blood Ur LARGE(!) PH Urine 6.0 Protein Ur 30(!) Urobilinogen >=8(!) Nitrite Ur NEGATIVE Leuk Est SMALL(!) WBC Ur 6-10(!) RBC Ur >20(!) SQ EPITH 0-5 Bacteria UA PRESENT Urinalysis Performed at: [facility] [place]ceiving CTX 2122 LFTs(!): Total Protein 5.8(!) [...] in real time. Please contact me via UBIK[employer] staff message if you note any errors [...] Austin MD - 02/02/2024 6:08 PM CDT Corporate Travel Coordinator of the Day (MOD) Triage/Communication Note Sign out received from Cooper in [facility] (team center/clinic). Requested unit: G3 (choose from: any medicine floor, specific medicine floor with rationale, CaRe, RTU, MICU). Patient status: INPT. (Obs v. Inpt) Cardiac telemetry needed? (specify if remote telemetry OK). Summary of verbal sign out given by ED/clinic AGRICULTURAL RESEARCH TECHNICIAN: Cirrhosis, right femur fracture 58yo hx of cirrhosis, transferred from [facility] for a femur fracture after a fall at home. Has 2 total knee replacement. Has displaced mid-shaft right femur fracture -- ortho has been consulted. Got ancef for right foot wound. Has UTI - getting ceftriaxone ED to do paracentesis. Enedina Austin MD, 02/02/2024 6:13 PM Staff Physician, Hospital Medicine Note is for communication only, [...] NEGATIVE Bili UA TRACE(!) Ketones TRACE(!) Specific [place] 1.024 Blood Ur LARGE(!) PH Urine 6.0 Protein Ur 30(!) Urobilinogen >=8(!) Nitrite Ur NEGATIVE Leuk Est SMALL(!) WBC Ur 6-10(!) RBC Ur >20(!) SQ EPITH 0-5 Bacteria UA PRESENT Urinalysis Performed at: [facility] Grossly concerning for infection; will treat with [...] 02/02/2024 3:17 PM CDT [place]IB[place] as a [place] transfer. EMS was called around 0945 for a stumble and fall. HX of ETOH with cirrohsis and ascites. Right mid-shaft with Morphine and dilaudid in [place] ED. 4 mg morphine en route. Pain rating 3 or 4/10 2 g cefazolin en route 20 RFA * Maggie Tariq RN - 02/02/2024 1:44 PM CDT Report called from [facility]. Pt is non weight bearing and [...] Toe Head to Toe Assessment Shift Summary [id number] Pt A&O. Makes needs known. Denies pain [...] loose (02/28/242243) Liquid Stool (mL): 700 mL (02/27/24 05) Genitourinary Assessment Within Defined Limits except for: [...] 21 (PICC) Peripherally Inserted Central Catheter 5 Greek 43 cm, 2 cm out Basilic 02/27/24 [...] 20 (PICC) Peripherally Inserted Central Catheter 5 Greek 43 cm, 2 cm out Basilic 02/27/24 [...] 20 (PICC) Peripherally Inserted Central Catheter 5 Greek 43 cm, 2 cm out Basilic 02/27/24 [...] 20 (PICC) Peripherally Inserted Central Catheter 5 Greek 43 cm, 2 cm out Basilic 02/27/24 [...] Stool Amount: large (02/27/24542) Stool Color: brown (02/27/2443) Stool Consistency: liquid [...] 19 (PICC) Peripherally Inserted Central Catheter 5 Greek 43 cm, 2 cm out Basilic 02/27/24 [...] 19 (PICC) Peripherally Inserted Central Catheter 5 Greek 43 cm, 2 cm out Basilic 02/27/24 [...] PA-C - 02/27/2024 12:00 AM CDT Cross cover was asked to order X-ray following PICC [...] Nursing Assessment - Stacy Laughlin RN - 02/26/2024 1:56 PM CDT Nursing Assessment Head to Toe Head to Toe Assessment Shift Summary Shift Summary Alert and oriented. Severely distended abdomen. Denies nausea/vomiting/abd pain. Cano intact draining yellow urine. Turned and repositioned. Some redness under abd fold, nystatin powder applied. Redness around sacrum/buttocks, barrier cream applied. Dressing to R foot changed. This investigative writer noted this AM that pt has a Cano tube in rectum and attached to suction however there are no orders for suction or managing the tube. Reached out to primary team who instructed this investigative writer to leave it attached to suction while they paged the surgery team for clarification. During yulia cares, this investigative writer noted blood blisters on both sides [...] friction against labia. 150mlliquid stool output. Stacy Laughlin RN, 02/26/2024 3:43 PM Neurologic/Cognitive Within Defined [...] rectal tube is out, and patient inform investigative writer she wants surgery to access the area. Coating Mixer Tender updated provider and other staff about patient distended abdomen, awaiting response. Coating Mixer Tender was informed by provider to reinstate rectal tube. Coating Mixer Tender asked for assistance, from charge nurse and [...] Incontinent to B/B. Rectal tube came out investigative writer tried to replace it but pt [...] volume consistently greater than 350 mL) 02/07/24 235 -- 17 Psychosocial Assessment Within Defined Limits [...] retention - straight cath Not sent to [facility] for secondary review. * Nursing Assessment - [...] rectal tube and suction in placed and investigative writer and HCA reposition patient to a comfortable position. Patient is on room air, lower extremities elevated on pillows. Denies SOB, nausea and vomiting, and requested for snacks and beverages given. Cano in tactand patent. Coating Mixer Tender will continue to monitor. Within Defined Limits [...] Defined Limits * Nursing Assessment - Nilay Darden, GEOFF - 02/24/2024 12:45 PM CDT Nursing Assessment Head to Toe Head to Toe Assessment Shift Summary [id number] Alert and oriented x 4, uses call [...] is appropriate. * Utilization Management - Annalise Guo, RN - 02/24/2024 12:18 PM CDT Summary: [...] Amount: large (02/23/24611) Stool Color: light brown (02/23/24611) Stool Consistency: liquid (02/23/24611) Liquid Stool (mL): 800 mL (02/23/24 1500) [...] elastic straps and attached to cano bag. Coating Mixer Tender note significant amount of gas in cano [...] Management/Containment System 02/20/242011 -- 1 Rash 02/02/24 234 groin 04/30/24 2347 -- 19 Wound 02/03/24 Pedal Anterior;Right [...] place, draining brown loose stool, green tube [id number] at 45ml , Flushed 30ml in purple [...] on RLE. Will continue with POC. Amada Hogan, GEOFF, 02/21/2024 9:21 PM Neurologic/Cognitive Within Defined Limits [...] loose (02/21/241399) Liquid Stool (mL): 50 mL (02/21/241399) Genitourinary Assessment Within Defined Limits except for: [...] less than 1 Rash 02/02/24 2347 groin 02/02/242346 -- 18 Wound 02/03/24 Pedal Anterior;Right 02/03/24 [...] Toe Head to Toe Assessment Shift Summary [id number] Alert and oriented x4. 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 [...] Anterior;Right Upper Arm 02/11/241999 -- 7 Rash 02/02/247 groin 02/02/242346 -- 16 Wound 02/03/24 Pedal Anterior;Right 02/03/24 [...] to Toe Assessment Shift Summary Shift Summary [id number] Received the food she ordered for supper [...] to Toe Assessment Shift Summary Shift Summary [id number] Pt is AO x4, pleasant, liable. Eats [...] Toe Head to Toe Assessment Shift Summary [id number] Alert and oriented, able to use call light to report needs, vs wnl on ra, reported 7/10 aching painto LLE, oxycodone and tylenol given for pain relief, cms intact, wiggle toes, LLE elevated on pillows, aced wrap dressing c/d/I, pt teary in request to have anything to eat, this investigative writer educated pt that she is on regular/ 2 gm sodium diet, pt agreed to eat the meal per order, T&R, urinary catheter draining yellow clear urine, catheter cares completed, distended abd, denied pain to abd, no acute changes, intentional rounding, will continue to monitor. Filed Vitals: 02/17/24 0928 BP: 92/50 Pulse: 79 Resp: 18 Coating Mixer Tender offered to do dressing change, pt was [...] moderate (02/14/24 0220) Stool Color: light brown (05/09/27 220) Stool Consistency: liquid;loose (02/14/24219) Genitourinary Assessment Within [...] Toe Head to Toe Assessment Shift Summary [id number] No acute events overnight. Q2H repositioning; patient intermittently refuses Q2H. Chronic cano in place 2/2 urinary retention. Many allergies listed. A&O. H2H precautions. Bed alarm active. CMS intact. Treating redness to sacral area/buttocks with barrier cream. Redness to abdominal folds being treated with nystatin and interdry. Pain 04/13 reported ~0200 with Q4H PRN oxycodone administered; [...] 3:54 AM * Nursing Assessment - Stay, Susan, RN - 02/15/2024 3:38 PM CDT Nursing [...] 02/11/241999 -- 3 Rash 02/02/24 2347 groin 04/30/24 2347 -- 12 Wound 02/03/24 Pretibial Left [...] 2350 -- 7 Psychosocial Within Defined Limits Jose, GEOFF Davis, 02/15/2024 3:39 PM * Nursing Assessment - [...] known. Paged tx team upon return from abd xray for diet order. Neurologic/Cognitive Within Defined [...] Limits * Interval Note Provider - Amanda lEise PA-C - 02/15/2024 11:26 AM CDT Brief [...] 02/15/2024 1:30 PM * Nursing Assessment - Thu Lowery RN - 02/15/2024 12:14 AM CDT Summary: [id number] Nursing Assessment Head to Toe Head to [...] at baseline. PRN oxycodone given for pain 7/10. Rectal tube had 200 mL output before [...] Toe Head to Toe Assessment Shift Summary [id number] No acute changes.Pt is alert and oriented [...] as pt allows.Will continue to monitor.Filed Vitals: 02/13/24 2347 BP: 94/59 Pulse: 73 Resp: 16 Temp: 36.3 ??C (97.4 ??F) Weight: Pt awake this morning and reported pain after repositioning on the Right side of the ribs/flank ,R leg and knee rating 06-07/10,prn oxycodone administered,provided Irma trena ,water and ice [...] Within Defined Limits * Nursing Assessment - [place]-Thu French RN - 02/13/2024 12:38 AM CDT Summary: [id number] Nursing Assessment Head to Toe Head to Toe Assessment Shift Summary Pt is A&OX4. BP trending on low end (94/61 at 0024). Pt c/o pain 04/13 to RLE and this investigative writer gave prn oxycodone and repositioned for [...] (02/12/24 0249) Stool Color: light brown (02/12/24 024) Stool Consistency: creamy (02/12/24 024) Genitourinary Assessment Within Defined Limits except for: [...] Head to Toe Assessment Shift Summary Shift [id number] Patient returned to room from procedure at [...] light brown (02/11/24 2300) Stool Consistency: watery (02/11/242299) Genitourinary Assessment Within [...] Tim Zapata MD General Surgery, PGY-2 Pager: [phone] or Telemediq * Cross Cover - Khloe Reyes PA-C - 02/11/2024 7:20 PM CDT Paged by Epifanio IT PROGRAM ENGAGEMENT DIRECTOR nurse regarding NG tube. On chart review appears CT ordered this afternoon shows increased rectosigmoid colonic distention with increased distal fecal contents. 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 NG was ordered by day team for decompression; however, IT PROGRAM ENGAGEMENT DIRECTOR RN does not feel appropriate for placement given cirrhosis and bleeding risk (reviewed lack of varices on EGD 09/26 and labs, but still feels too high risk). Epifanio notes this will need to be placed by IR if surgery unable to place overnight. IT PROGRAM ENGAGEMENT DIRECTOR and bedside RN asking for clarification on [...] PA-C, 02/11/2024 7:38 PM I spoke with resident program specialist who notes they could place NG tube [...] distended. Order for NGT this evening however IT PROGRAM ENGAGEMENT DIRECTOR nurse would not place because patient had [...] Toe Assessment Shift Summary Day Nursing Note [id number]: Alert and oriented. Tearful this AM re: [...] lb) SpO2 94% BMI 32.99 kg/m?? Gay Menendez RN, 02/11/2024 5:36 AM Reported pain and [...] Gastrointestinal Within Defined Limits Stool (unmeasured): 1 (02/06/24 1800) Stool Amount: [...] Toe Assessment Shift Summary Day Nursing Note [id number]: Alert and oriented. Reported 8/10 RLE pain, PRN oxycodone given. Abdomen extremely [...] Defined Limits * Nursing Assessment - Willis Méndez, GEOFF - 02/10/2024 2:52 AM CDT Nursing Assessment [...] 4, anxious at time, C/o RLE pain 8/, given PRN Oxycodone 10 mg and scheduled [...] Nursing Assessment - Rozina Lainez, RN - 02/09/2024 10:40 AM CDT Nursing [...] stable. IV Antibiotic per arereported RLE pain 8/10,given scheduled tylenol and PRN Oxycodone 10 mg [...] Toe Head to Toe Assessment Shift Summary [id number] Pt A&Ox4. Endorsed pain to to RLE. [...] report. Patient abdomen very extended and hard. Coating Mixer Tender notedno urine output and straight cath for 300 ml at 1400. Patient reports being incontinent at baselineand was incontinent of stool one time this shift. Coating Mixer Tender placed external catheter on patient at 1700 after diuretic administration. Patient very anxious when repositioning . Wound vac failed and investigative writer notified ortho provider. Provider reports that wound vac is just over pin site and can go withoutit if unable to get a new one tonight. Patients groin is raw and red and investigative writer provided nystatin and lotion to area. Wound care done per order by investigative writer to coccyx. Patient does not tolerate [...] Patient Behaviors: Anxious/afraid/apprehensive * Nursing Assessment - uHmphrey Nagel RN - 02/07/2024 11:11 AM CDT [...] Toe Head to Toe Assessment Shift Summary [id number] Pt A&Ox4. Endorsed pain to to RLE. [...] 02/02/24 20 gauge Anterior;Left Forearm 02/02/242018 -- 3 Rash 02/02/24 2347 groin 02/02/24 [...] of pain. [facility] [...] Toe Head to Toe Assessment Shift Summary [id number] Pt Sleeping upon shift change. Endorsed pain to to RLE. PRN given per mar. Pt sleeping on reassessment. POD #0. Numbness to RLE. Other CMS intact. Leg elevated and ICE pack provided. Paracentesis site draining small output. Cano in place draining well. Pt drinking fluids well. Pt informed investigative writer she will call when she needs [...] 02/02/24 20 gauge Anterior;Left Forearm 02/02/242018 -- 3 Rash 02/02/24 2347 groin 02/02/24 [...] Jorge MD - 02/05/2024 1:31 PM CDT [facility] Immediate Post Operative Note Note [...] Implant Name Type Inv. Item Serial No. Implementation Lead Lot No. LRB No. Used Action FEMORAL [employer]RO[employer]ADE [id number] Krystle FEMOR[employer] NAIL RETROGRADE [id number] [employer] [id number] Right 1 Implanted 5.0X60MM 2361-5060S Screw/[place] 5.0X60MM 2361-5060S [employer] [id number] Right 1 Implanted 5.0X70MM 2361-5070S Screw/[place] 5.0X70MM 2361-5070S [employer] [id number] Right 1 Implanted 5.0X75MM ADV 2361-5075S Screw/[place] 5.0X75MM ADV 2361-5075S [employer] [id number] Right 1 Implanted FREEHAND DRILL [id number] Drill bit/kiara FREEHAND DRILL [id number] [employer] [id number] Right1 Implanted 5.0X42.5MM 2360-5042S Screw/[place] 5.0X42.5MM 2360-5042S [employer] [id number] Right 1 Implanted Intraoperative Findings: see op [...] check Vignesh Jorge MD Orthopaedic Surgery PGY-3 [facility]opa[facility] Trauma [facility] * Nursing Assessment - [...] Within Defined Limits * Nursing Assessment - [place]-Thu French RN - 02/05/2024 12:19 AM CDT Summary: [id number] Nursing Assessment Head to Toe Head to Toe Assessment Shift Summary Pt is A&OX4 with VSS on RA. Pt has very distended and taut stomach, paracentesis site drained 625 mL yellow fluid from ostomy bag. NPO status maintained. Cano catheter in place draining mili concentrated urine. Pt reports neuropathy at baseline and CMS is intact to RLE. This investigative writer attempted to give CHG bath and [...] RN - 02/04/2024 10:17 PM CDT Summary: [id number] Nursing Assessment Head to Toe Head to [...] -- 1 Rash 02/02/24 2347 groin 02/02/24 234 -- 1 Rash 02/02/24 2348 02/02/242347 -- [...] less than 1 Rash 02/02/24 2347 groin 02/02/247 -- less than 1 Rash 02/02/24 2348 [...] indication at this time. Carter Maurer APRN, RALPH, 02/03/2024 12:38 PM [facility] Department of Surgery Pager: via telemediq * Nursing Assessment - Chelsi Mehta RN - 02/03/2024 6:35 AM CDT Nursing Assessment Head to Toe Head to Toe Assessment Shift Summary Shift Summary Pt arrived to [facility] [place] ED AT AROUND 1130 Admitted for [...] [facility] [address] [id number] Lia Mcclellan PA-C [address] [facility] [address] [place] [address] Scheduled Discharge Disposition: Discharged to home or self care (routine discharge) 03/17/2024 9:45 AM CDT [facility]ointment [facility] [address] [address] Scheduled Discharge Disposition: Discharged to home or self care (routine discharge) 03/17/2024 10:00 AM CDT Office Visit [facility] [address] [place] [address] Dayo Henning MD [address] [place] [address] Scheduled Discharge Disposition: Discharged to home or self care (routine discharge) Pending Results Name Type Priority Associated Diagnoses Date /Time PREALBUMIN Lab Routine 02/27/2024 4:2 2 PM CDT Scheduled Orders Name Type Priority Associated Diagnoses Orde r Schedule XR FEMUR RIGHT AP + LAT* Imaging Routine Other fracture of right femur, initial encounter for closed fracture (CMS) Expected: 03/19/2024 (Approximate), Expires: 04/18/2025 PANEL BASIC [...] DIAGNOSTIC Emergent (DEMETRI) 02/11/2024 9:54 PM CDT Sully syndrome COLONOSCOPY-DIAGNOST IC Routine 02/11/2024 9:24 PM [...] POC Glucose 105(H) 70 - 100 mg/dL [facility] - POINT OF CARE Blood 02/29/2024 6:45 AM CDT Humphrey Rose MD LABORATORY Performing Organization Address [facility] Co de Phone Number [facility] POINT OF CARE [address] [place] [address], [place] * POC GLUCOSE (02/28/2024 9:12 PM CDT) POC Glucose 94 70 - 100 mg/dL [facility] POINT OF CARE Blood 02/28/2024 9:12 PM CDT Humphrey Rose MD LABORATORY Performing Organization Address City/[facility]/ZIP Co de Phone Number [facility] POINT OF CARE [address] [place] [address], [place] * POC GLUCOSE (02/28/2024 4:38 PM CDT) POC Glucose 96 70 - 100 mg/dL [facility] POINT OF CARE Blood 02/28/2024 4:38 PM CDT Humphrey Rose MD LABORATORY [facility] POINT OF CARE [address] [place], [place] [phone], [place] * (ABNORMAL) POC GLUCOSE (02/28/2024 11:38 AM CDT) POC Glucose 101(H) 70 - 100 mg/dL [facility] POINT OF CARE Blood 02/28/2024 11:3 8 AM CDT Humphrey Rose MD LABORATORY Performing Organization Address City/[facility] Co de Phone Number [facility] POINT [address] [address], [place] * POC GLUCOSE (02/28/2024 6:30 AM CDT) POC Glucose 91 70 - 100 mg/dL [facility] POINT OF [facility] Blood 02/28/2024 6:30 AM CDT Humphrey Rose MD LABORATORY Performing Organization Address City/[facility]/ZIP Co de Phone Number [facility] POINT OF [facility] [address] [place] [address], [place] * PHOSPHORUS (02/28/2024 6:00 AM CDT) Phosphorus 3.7 2.5 - 4.5 mg/dL [facility] Blood 02/28/2024 6:00 AM CDT 02/28/2024 6:12 AM CDT Nino Ramírez MD LABORATORY [facility] [place] [phone] * MAGNESIUM (02/28/2024 6:00 AM CDT) Magnesium 2.0 1.6 - 2.6 mg/dL [facility] Blood 02/28/2024 6:00 AM CDT 02/28/2024 6:12 AM CDT Nino Ramírez MD LABORATORY Performing Organization Address [facility] Co de Phone Number [facility] [address] [address] * CALCIUM,IONIZED (02/28/2024 6:00 AM CDT) PH 7.38 7.32 - 7.42 [facility] ICA, Actual 4.57 4.40 - 5.20 mg/dL [facility] ICA, pH Corrected 4.52 4.40 - 5.20 mg/dL [facility] Blood 02/28/2024 6:00 AM CDT 02/28/2024 6:15 AM CDT Narrative [facility] - 02/28/2024 6:35 AM CDT Send specimen on ice! Nino Ramírez MD LABORATORY Performing Organization Address [facility] de Phone Number [facility] [address] [address] * (ABNORMAL) PANEL BASIC METABOLIC (BMP) (02/28/2024 6:00 AM CDT) Sodium 133(L) 135 - 148 mmol/L [facility] Potassium 3.5 3.5 - 5.3 mmol/L [facility] Chloride 102 92 - 108 mmol/L [facility] AnGap 7(L) 8 - 16 mmol/L [facility] CO2 24 22 - 30 mmol/L [facility] Glucose 87 70 - 100 mg/dL [facility] BUN 9 6 - 20 mg/dL [facility] Creatinine 0.46(L) 0.50 - 1.00 mg/dL [facility] Calcium 8.0(L) 8.6 - 10.0 mg/dL [facility] eGFR (2020 CKD-EPI) 110 >=60 ml/min/1.7 3m2 [facility] Comment: The estimated glomerular filtration rate (eGFR) was calculated using the CKD-EPI 2020 creatinine equation, which does not include race as a factor. This equation is validated in individuals 18 years of age and older, and eGFR is normalized to a body surface area of 1.73m^2. Blood 02/28/2024 6:00 AM CDT 02/28/2024 6:12 AM CDT Nino Ramírez MD LABORATORY Performing Organization Address City/[facility] Co de Phone Number [facility] [address] [place] [address] * (ABNORMAL) POC GLUCOSE (02/27/2024 9:18 PM CDT) POC Glucose 107(H) 70 - 100 mg/dL [facility] POINT OF CARE Blood 02/27/2024 9:18 PM CDT Humphrey Rose MD LABORATORY Performing Organization Address [facility] Co de Phone Number [facility] POINT OF CARE [address] [place], [place] [phone], [place] * (ABNORMAL) POC GLUCOSE (02/27/2024 4:32 PM CDT) POC Glucose 105(H) 70 - 100 mg/dL [facility] POINT OF CARE Blood 02/27/2024 4:32 PM CDT Humphrey Rose MD LABORATORY Performing Organization Address [facility] Co de Phone Number [facility] POINT OF CARE [address] [place] [address], [place] * XR PICC LINE PLACEMENT CHECK [...] POC Glucose 81 70 - 100 mg/dL [facility] POINT OF CARE Blood 02/27/2024 11:5 5 AM CDT Humphrey Rose MD LABORATORY [facility] OF CARE [address] [place] [address], * PICC Line (02/27/2024 11:40 AM CDT) Narrative Patricia Dumont RN - 02/27/2024 11:40 AM CDT Patricia Dumont RN ? 02/27/2024 ??2:00 PM PICC Line Date/Time: 02/27/2024 11:40 AM Performed by: Patricia Dumont RN Authorized by: Nino Ramírez MD ?? [place] Protocol: ??Verbal consent obtained?: Yes ?Written consent [...] total length, 2 cm out secured with [id number]; AC to IS: 5 cm; Circumference 10 cm above AC: 24 cm) ??Catheter brand sales manager: ??Bard ??Lot Number: ??[id number] ??Pre-procedure: landmarks identified ?Ultrasound guidance: Yes ?Number [...] PROCEDURES * TRIGLYCERIDE (02/27/2024 7:16 AM CDT) Pathologist [facility] Triglyceride 138 <=150 mg/dL [facility] Comment: Interpretive Data <150 Normal 150-199 Borderline high 200-499 High >=500 Very high Blood 02/27/2024 7:16 AM CDT 02/27/2024 7:35 AM CDT Ernestine Toribio MD LABORATORY Performing Organization Address City/[facility] Co de Phone Number [facility] [address] [address] * PHOSPHORUS (02/27/2024 7:16 AM CDT) Phosphorus 3.2 2.5 - 4.5 mg/dL [facility] Blood 02/27/2024 7:16 AM CDT 02/27/2024 7:35 AM CDT Ernestine Toribio MD LABORATORY Performing Organization Address [facility] de Phone Number [facility] [address] [address] * MAGNESIUM (02/27/2024 7:16 AM CDT) Pathologist [facility] Magnesium 2.2 1.6 - 2.6 mg/dL [facility] Blood 02/27/2024 7:16 AM CDT 02/27/2024 7:35 AM CDT Ernestine Toribio MD LABORATORY Performing Organization Address [facility] [facility] de Phone Number [facility] [address] [address] * (ABNORMAL) PANEL BASIC METABOLIC (BMP) (02/27/2024 7:16 AM CDT) Sodium 132(L) 135 - 148 mmol/L [facility] Potassium 3.6 3.5 - 5.3 mmol/L [facility] Chloride 101 92 - 108 mmol/L [facility] CO2 23 22 - 30 mmol/L [facility] AnGap 8 8 - 16 mmol/L [facility] Glucose 81 70 - 100 mg/dL [facility] BUN 9 6 - 20 mg/dL [facility] Creatinine 0.52 0.50 - 1.00 mg/dL [facility] Calcium 7.8(L) 8.6 - 10.0 mg/dL [facility] eGFR (2020 CKD-EPI) 107 >=60 ml/min/1.7 3m2 [facility] Comment: The estimated glomerular filtration rate (eGFR) was calculated using the CKD-EPI 2020 creatinine equation, which does not include race as a factor. This equation is validated in individuals 18 years of age and older, and eGFR is normalized to a body surface area of 1.73m^2. Blood 02/27/2024 7:16 AM CDT 02/27/2024 7:35 AM CDT Ernestine Toribio MD LABORATORY [facility] [address] [place] [phone] * (ABNORMAL) CBC WITH PLTS/AUTO DIFF (02/27/2024 7:16 AM CDT) WBC 3.37(L) 4.00 - 10.00 k/cmm [facility] RBC 3.03(L) 3.90 - 5.20 m/cmm [facility] Hgb 9.1(L) 11.5 - 15.7 g/dL [facility] Hematocrit 29.5(L) 34.0 - 45.0 % [facility] MCV 97.4 80.0 - 100.0 fL [facility] MCH 30.0 25.0 - 32.0 pg [facility] MCHC 30.8(L) 31.0 - 36.0 g/dL [facility] RDW 14.4 11.5 - 14.5 % [facility] Plt 125(L) 150 - 400 k/cmm [facility] MPV 9.3 6.5 - 12.5 fL [facility] Automated Abs Neutrophil 1.31(L) 1.70 - 6.50 k/cmm [facility] Comment:Preliminary ANC, Fin al Result to Follow Abs Immature Granulocyte 0.01 0.00 - 0.09 k/cmm [facility] Comment:The Immature Granulo cyte Absolute count contains metamyelocytes and myelocytes. Abs Neutrophil 1.31(L) 1.70 - 6.50 k/cmm [facility] Abs Lymphocyte 1.63 0.80 - 4.00 k/cmm [facility] Abs Monocyte 0.32 0.20 - 1.00 k/cmm [facility] Abs Eosinophil 0.09 0.00 - 0.60 k/cmm [facility] Abs Basophil 0.01 0.00 - 0.20 k/cmm [facility] Blood 02/27/2024 7:16 AM CDT 02/27/2024 7:35 AM CDT Ernestine Toribio MD LABORATORY [facility] [address] [place] [address] * POC GLUCOSE (02/27/2024 5:56 AM CDT) POC Glucose 84 70 - 100 mg/dL [facility] Blood 02/27/2024 5:56 AM CDT Humphrey Rose MD LABORATORY Performing Organization Address City/[facility] Co de Phone Number [facility] [address] [place] [phone], [place] * POC GLUCOSE (02/26/2024 11:54 PM CDT) POC Glucose 93 70 - 100 mg/dL [facility] Blood 02/26/2024 11:5 4 PM CDT Humphrey Rose MD LABORATORY Performing Organization Address City/[facility] Co de Phone Number [facility] [address] [place] [phone], [place] * (ABNORMAL) POC GLUCOSE (02/26/2024 6:16 PM CDT) POC Glucose 128(H) 70 - 100 mg/dL [facility] Blood 02/26/2024 6:16 PM CDT Humphrey Rose MD LABORATORY Performing Organization Address City/[facility]/ZIP Co de Phone Number [facility] [address] [place] [address], [place] * POTASSIUM (02/26/2024 4:52 PM CDT) Potassium 4.2 3.5 - 5.3 mmol/L [facility] Blood 02/26/2024 4:52 PM CDT 02/26/2024 5:19 PM CDT Ernestine Toribio MD LABORATORY Performing Organization Address [facility] Co de Phone Number [facility] [address] [place] [address] * POC GLUCOSE (02/26/2024 11:58 AM CDT) POC Glucose 77 70 - 100 mg/dL [facility] Blood 02/26/2024 11:5 8 AM CDT Humphrey Rose MD LABORATORY Performing Organization Address [facility] Co de Phone Number [facility] [address] [place] [address], [place] * XR ABDOMEN 1 VIEW* (02/26/2024 [...] CDT) WBC 3.06(L) 4.00 - 10.00 k/cmm [facility] RBC 3.05(L) 3.90 - 5.20 m/cmm [facility] Hgb 9.2(L) 11.5 - 15.7 g/dL [facility] Hematocrit 29.0(L) 34.0 - 45.0 % [facility] MCV 95.1 80.0 - 100.0 fL [facility] MCH 30.2 25.0 - 32.0 pg [facility] MCHC 31.7 31.0 - 36.0 g/dL [facility] RDW 14.8(H) 11.5 - 14.5 % [facility] Plt 144(L) 150 - 400 k/cmm [facility] MPV 9.8 6.5 - 12.5 fL [facility] Automated Abs Neutrophil 1.42(L) 1.70 - 6.50 k/cmm [facility] Comment:Preliminary ANC, Fin al Result to Follow Abs Immature Granulocyte 0.01 0.00 - 0.09 k/cmm [facility] Comment:The Immature Granulo cyte Absolute count contains metamyelocytes and myelocytes. Abs Neutrophil 1.42(L) 1.70 - 6.50 k/cmm [facility] Abs Lymphocyte 1.26 0.80 - 4.00 k/cmm [facility] Abs Monocyte 0.29 0.20 - 1.00 k/cmm [facility] Abs Eosinophil 0.06 0.00 - 0.60 k/cmm [facility] Abs Basophil 0.02 0.00 - 0.20 k/cmm [facility] Blood 02/26/2024 7:17 AM CDT 02/26/2024 7:53 AM CDT Ernestine Toribio MD LABORATORY [facility] [address] [phone] * PHOSPHORUS (02/26/2024 7:17 AM CDT) Phosphorus 3.4 2.5 - 4.5 mg/dL [facility] Blood 02/26/2024 7:17 AM CDT 02/26/2024 7:54 AM CDT Ernestine Toribio MD LABORATORY Performing Organization Address [facility] Co de Phone Number [facility] [address] [address] * MAGNESIUM (02/26/2024 7:17 AM CDT) Pathologist [facility] Magnesium 2.2 1.6 - 2.6 mg/dL [facility] Blood 02/26/2024 7:17 AM CDT 02/26/2024 7:54 AM CDT Ernestine Toribio MD LABORATORY Performing Organization Address [facility] de Phone Number [facility] [address] [address] * (ABNORMAL) PANEL BASIC METABOLIC (BMP) (02/26/2024 7:17 AM CDT) Pathologist [facility] Sodium 132(L) 135 - 148 mmol/L [facility] Potassium 3.2(L) 3.5 - 5.3 mmol/L [facility] Chloride 99 92 - 108 mmol/L [facility] CO2 26 22 - 30 mmol/L [facility] AnGap 7(L) 8 - 16 mmol/L [facility] Glucose 80 70 - 100 mg/dL [facility] BUN 9 6 - 20 mg/dL [facility] Creatinine 0.49(L) 0.50 - 1.00 mg/dL [facility] Calcium 7.8(L) 8.6 - 10.0 mg/dL [facility] eGFR (2020 CKD-EPI) 108 >=60 ml/min/1.7 3m2 [facility] Comment: The estimated glomerular filtration rate (eGFR) was calculated using the CKD-EPI 2020 creatinine equation, which does not include race as a factor. This equation is validated in individuals 18 years of age and older, and eGFR is normalized to a body surface area of 1.73m^2. Blood 02/26/2024 7:17 AM CDT 02/26/2024 7:54 AM CDT Ernestine Toribio MD LABORATORY Performing Organization Address City/[facility] Co de Phone Number [facility] [address] [place] [phone] * POC GLUCOSE (02/26/2024 6:23 AM CDT) POC Glucose 78 70 - 100 mg/dL [facility] Blood 02/26/2024 6:23 AM CDT Humphrey Rose MD LABORATORY Performing Organization Address [facility] Co de Phone Number [address] [address], [place] * POC GLUCOSE (02/26/2024 12:01 AM CDT) POC Glucose 76 70 - 100 mg/dL [facility] Blood 02/26/2024 12:0 1 AM CDT Humphrey Rose MD LABORATORY Performing Organization Address [facility] Co de Phone Number [facility] PO[facility] OF [address] [address], [place] * POC GLUCOSE (02/25/2024 9:33 PM CDT) POC Glucose 76 70 - 100 mg/dL [facility] Blood 02/25/2024 9:33 PM CDT Humphrey Rose MD LABORATORY Performing Organization Address [facility] Co de Phone Number [facility] [address] [place] [phone], [place] * XR ABDOMEN 1 VIEW* (02/25/2024 [...] CDT) Phosphorus 3.5 2.5 - 4.5 mg/dL [facility] Blood 02/25/2024 6:22 AM CDT 02/25/2024 6:55 AM CDT Ernestine Toribio MD LABORATORY [facility] [address] [address] * MAGNESIUM (02/25/2024 6:22 AM CDT) Magnesium 2.3 1.6 - 2.6 mg/dL [facility] Blood 02/25/2024 6:22 AM CDT 02/25/2024 6:55 AM CDT Ernestine Toribio MD LABORATORY [facility] [address] [address] * (ABNORMAL) CBC WITH PLTS/AUTO DIFF (02/25/2024 6:22 AM CDT) WBC 2.69(L) 4.00 - 10.00 k/cmm [facility] RBC 3.06(L) 3.90 - 5.20 m/cmm [facility] Hgb 9.2(L) 11.5 - 15.7 g/dL [facility] Hematocrit 28.9(L) 34.0 - 45.0 % [facility] MCV 94.4 80.0 - 100.0 fL [facility] MCH 30.1 25.0 - 32.0 pg [facility] MCHC 31.8 31.0 - 36.0 g/dL [facility] RDW 14.8(H) 11.5 - 14.5 % [facility] Plt 132(L) 150 - 400 k/cmm [facility] MPV 9.7 6.5 - 12.5 fL [facility] Automated Abs Neutrophil 1.09(L) 1.70 - 6.50 k/cmm [facility] Comment:Preliminary ANC, Fin al Result to Follow Abs Immature Granulocyte 0.01 0.00 - 0.09 k/cmm [facility] Comment:The Immature Granulo cyte Absolute count contains metamyelocytes and myelocytes. Abs Neutrophil 1.09(L) 1.70 - 6.50 k/cmm [facility] Abs Lymphocyte 1.25 0.80 - 4.00 k/cmm [facility] Abs Monocyte 0.25 0.20 - 1.00 k/cmm [facility] Abs Eosinophil 0.07 0.00 - 0.60 k/cmm [facility] Abs Basophil 0.02 0.00 - 0.20 k/cmm [facility] Blood 02/25/2024 6:22 AM CDT 02/25/2024 6:55 AM CDT Ernestine Toribio MD LABORATORY Performing Organization Address [facility] Co de Phone Number [facility] [address] [address] * (ABNORMAL) PANEL BASIC METABOLIC (BMP) (02/25/2024 6:22 AM CDT) Sodium 133(L) 135 - 148 mmol/L [facility] Potassium 3.1(L) 3.5 - 5.3 mmol/L [facility] Chloride 99 92 - 108 mmol/L [facility] CO2 27 22 - 30 mmol/L [facility] AnGap 7(L) 8 - 16 mmol/L [facility] Glucose 77 70 - 100 mg/dL [facility] BUN 10 6 - 20 mg/dL [facility] Creatinine 0.48(L) 0.50 - 1.00 mg/dL [facility] Calcium 7.8(L) 8.6 - 10.0 mg/dL [facility] eGFR (2020 CKD-EPI) 109 >=60 ml/min/1.7 3m2 [facility] Comment: The estimated glomerular filtration rate (eGFR) was calculated using the CKD-EPI 2020 creatinine equation, which does not include race as a factor. This equation is validated in individuals 18 years of age and older, and eGFR is normalized to a body surface area of 1.73m^2. Blood 02/25/2024 6:22 AM CDT 02/25/2024 6:55 AM CDT Ernestine Toribio MD LABORATORY Performing Organization Address [facility] Co de Phone Number [facility] [address] [address] * (ABNORMAL) POC GLUCOSE (02/24/2024 5:53 PM CDT) POC Glucose 106(H) 70 - 100 mg/dL [facility] Blood 02/24/2024 5:53 PM CDT Humphrey Rose MD LABORATORY Performing Organization Address [facility]/ZIP Co de Phone Number [facility] [address] [place] [phone], * (ABNORMAL) PANEL HEPATIC FUNCTION (02/24/2024 11:25 AM CDT) Total Protein 5.9(L) 6.4 - 8.3 g/dL [facility] Albumin 2.6(L) 3.8 - 5.1 g/dL [facility] Bili Total 0.6 <=1.2 mg/dL [facility] Bili Direct 0.2 <=0.3 mg/dL [facility] Alk Phos 123(H) 35 - 104 IU/L [facility] Comment:No reference range e stablished for patients <18 years old. ALT (SGPT) <5 <=33 IU/L [facility] AST(SGOT) 27 5 - 40 IU/L [facility] Blood 02/24/2024 11:2 5 AM CDT 02/24/2024 11:56 AM CDT Ernestine Toribio MD LABORATORY Performing Organization Address City/[facility]/ZIP Co de Phone Number [facility] [address] [address] * (ABNORMAL) PROTHROMBIN (PT) & INR (02/24/2024 11:25 AM CDT) Pathologist [facility] PT 16.8(H) 9.0 - 12.5 sec [facility] INR 1.5(H) 0.8 - 1.1 [facility] Comment: Warfarin Therapeutic Range: Standard Intensity: 2.0 - 3.0 High Intensity: 2.5 - 3.5 Blood 02/24/2024 11:2 5 AM CDT 02/24/2024 11:56 AM CDT Ernestine Toribio MD LABORATORY Performing Organization Address City/[facility]/ZIP Co de Phone Number [address] [address] * MAGNESIUM (02/24/2024 11:25 AM CDT) Magnesium 2.2 1.6 - 2.6 mg/dL [facility] Blood 02/24/2024 11:2 5 AM CDT 02/24/2024 11:56 AM CDT Ernestine Toribio MD LABORATORY [facility] [address] [address] * (ABNORMAL) PANEL BASIC METABOLIC (BMP) (02/24/2024 11:25 AM CDT) Sodium 132(L) 135 - 148 mmol/L [facility] Potassium 3.5 3.5 - 5.3 mmol/L [facility] Chloride 99 92 - 108 mmol/L [facility] CO2 25 22 - 30 mmol/L [facility] AnGap 8 8 - 16 mmol/L [facility] Glucose 83 70 - 100 mg/dL [facility] BUN 12 6 - 20 mg/dL [facility] Creatinine 0.55 0.50 - 1.00 mg/dL [facility] Calcium 7.5(L) 8.6 - 10.0 mg/dL [facility] eGFR (2020 CKD-EPI) 106 >=60 ml/min/1.7 3m2 [facility] Comment: The estimated glomerular filtration rate (eGFR) was calculated using the CKD-EPI 2020 creatinine equation, which does not include race as a factor. This equation is validated in individuals 18 years of age and older, and eGFR is normalized to a body surface area of 1.73m^2. Blood 02/24/2024 11:2 5 AM CDT 02/24/2024 11:56 AM CDT Ernestine Toribio MD LABORATORY [facility] [address] [address] * (ABNORMAL) CBC WITH PLTS/AUTO DIFF (02/24/2024 11:25 AM CDT) WBC 3.55(L) 4.00 - 10.00 k/cmm [facility] RBC 2.86(L) 3.90 - 5.20 m/cmm [facility] Hgb 8.6(L) 11.5 - 15.7 g/dL [facility] Hematocrit 27.3(L) 34.0 - 45.0 % [facility] MCV 95.5 80.0 - 100.0 fL [facility] MCH 30.1 25.0 - 32.0 pg [facility] MCHC 31.5 31.0 - 36.0 g/dL [facility] RDW 14.9(H) 11.5 - 14.5 % [facility] Plt 146(L) 150 - 400 k/cmm [facility] MPV 9.8 6.5 - 12.5 fL [facility] Automated Abs Neutrophil 1.79 1.70 - 6.50 k/cmm [facility] Comment:Preliminary ANC, Fin al Result to Follow Abs Immature Granulocyte 0.01 0.00 - 0.09 k/cmm [facility] Comment:The Immature Granulo cyte Absolute count contains metamyelocytes and myelocytes. Abs Neutrophil 1.79 1.70 - 6.50 k/cmm [facility] Abs Lymphocyte 1.37 0.80 - 4.00 k/cmm [facility] Abs Monocyte 0.33 0.20 - 1.00 k/cmm [facility] Abs Eosinophil 0.04 0.00 - 0.60 k/cmm [facility] Abs Basophil 0.01 0.00 - 0.20 k/cmm [facility] Blood 02/24/2024 11:2 5 AM CDT 02/24/2024 11:56 AM CDT Ernestine Toribio MD LABORATORY Performing Organization Address City/State/[facility] Co de Phone Number [facility] [address] [address] * XR ABDOMEN 1 VIEW* (02/24/2024 9:02 [...] POC Glucose 80 70 - 100 mg/dL [facility] Blood 02/24/2024 6:51 AM CDT Humphrey Rose MD LABORATORY Performing Organization Address City/[facility] Co de Phone Number [facility] [address] [place] [phone], * POC GLUCOSE (02/24/2024 1:36 AM CDT) POC Glucose 81 70 - 100 mg/dL [facility] Blood 02/24/2024 1:36 AM CDT Humphrey Rose MD LABORATORY [facility] [address] [place] [address], * (ABNORMAL) POC GLUCOSE (02/23/2024 6:39 PM CDT) POC Glucose 140(H) 70 - 100 mg/dL [facility] Blood 02/23/2024 6:39 PM CDT Humphrey Rose MD LABORATORY [facility] [address] [place] [phone], * XR ABDOMEN 1 VIEW* (02/23/2024 2:31 [...] CDT) Magnesium 2.2 1.6 - 2.6 mg/dL [facility] Blood 02/23/2024 8:46 AM CDT 02/23/2024 1:57 PM CDT Narrative [facility] - 02/23/2024 2:07 PM CDT Add to AM (02/22) labs. Ernestine Toribio MD LABORATORY [facility] [address] [address] * (ABNORMAL) PANEL BASIC METABOLIC (BMP) (02/23/2024 8:46 AM CDT) CO2 24 22 - 30 mmol/L [facility] Glucose 154(H) 70 - 100 mg/dL [facility] BUN 11 6 - 20 mg/dL [facility] Creatinine 0.52 0.50 - 1.00 mg/dL [facility] Calcium 7.6(L) 8.6 - 10.0 mg/dL [facility] Sodium 129(L) 135 - 148 mmol/L [facility] Potassium 3.3(L) 3.5 - 5.3 mmol/L [facility] Chloride 96 92 - 108 mmol/L [facility] eGFR (2020 CKD-EPI) 107 >=60 ml/min/1.7 3m2 [facility] Comment: The estimated glomerular filtration rate (eGFR) was calculated using the CKD-EPI 2020 creatinine equation, which does not include race as a factor. This equation is validated in individuals 18 years of age and older, and eGFR is normalized to a body surface area of 1.73m^2. AnGap 9 8 - 16 mmol/L [facility] Blood 02/23/2024 8:46 AM CDT 02/23/2024 9:23 AM CDT Francy Mc MD LABORATORY [facility] [address] [address] * (ABNORMAL) CBC WITH PLATELET (02/23/2024 8:46 AM CDT) WBC 3.17(L) 4.00 - 10.00 k/cmm [facility] RBC 3.23(L) 3.90 - 5.20 m/cmm [facility] Hgb 9.7(L) 11.5 - 15.7 g/dL [facility] Hematocrit 31.0(L) 34.0 - 45.0 % [facility] MCV 96.0 80.0 - 100.0 fL [facility] MCH 30.0 25.0 - 32.0 pg [facility] MCHC 31.3 31.0 - 36.0 g/dL [facility] RDW 14.9(H) 11.5 - 14.5 % [facility] Plt 138(L) 150 - 400 k/cmm [facility] MPV 10.4 6.5 - 12.5 fL [facility] Blood 02/23/2024 8:46 AM CDT 02/23/2024 9:23 AM CDT Francy Mc MD LABORATORY Performing Organization Address City/[facility]/ZIP Co de Phone Number [facility] [address] [place] [address] * POC GLUCOSE (02/23/2024 6:48 AM CDT) POC Glucose 85 70 - 100 mg/dL [facility] POINT [facility] C[facility] Blood 02/23/2024 6:48 AM CDT Humphrey Rose MD LABORATORY Performing Organization Address City/[facility] Co de Phone Number [facility] POINT [facility] [address] [id number], * POC GLUCOSE (02/23/2024 12:07 AM CDT) POC Glucose 74 70 - 100 mg/dL [facility] POINT OF [facility] Blood 02/23/2024 12:0 7 AM CDT Humphrey Rose MD LABORATORY Performing Organization Address City/[facility] Co de Phone Number [facility] POINT OF CARE [address] [place], [place] [id number], [place] * POC GLUCOSE (02/22/2024 11:29 AM CDT) POC Glucose 91 70 - 100 mg/dL [facility]INT [facility] CARE Blood 02/22/2024 11:2 9 AM CDT Humphrey Rose MD LABORATORY Performing Organization Address City/[facility]/ZIP Co de Phone Number [facility] POINT OF CARE [address] [place] [phone], [place] * POC GLUCOSE (02/22/2024 6:45 AM CDT) [facility] POC Glucose 78 70 - 100 mg/dL [facility] POINT OF [facility] Blood 02/22/2024 6:45 AM CDT Humphrey Rose MD LABORATORY Performing Organization Address [facility]/ZIP Co de Phone Number [facility] POINT OF CARE [address] [place] [phone], * (ABNORMAL) PANEL BASIC METABOLIC (BMP) (02/22/2024 6:18 AM CDT) [facility] CO2 26 22 - 30 mmol/L [facility] Glucose 81 70 - 100 mg/dL [facility] BUN 13 6 - 20 mg/dL [facility] Creatinine 0.52 0.50 - 1.00 mg/dL [facility] Calcium 7.6(L) 8.6 - 10.0 mg/dL [facility] Sodium 132(L) 135 - 148 mmol/L [facility] Potassium 3.5 3.5 - 5.3 mmol/L [facility] Chloride 98 92 - 108 mmol/L [facility] eGFR (2020 CKD-EPI) 107 >=60 ml/min/1.7 3m2 [facility] Comment: The estimated glomerular filtration rate (eGFR) was calculated using the CKD-EPI 2020 creatinine equation, which does not include race as a factor. This equation is validated in individuals 18 years of age and older, and eGFR is normalized to a body surface area of 1.73m^2. AnGap 8 8 - 16 mmol/L [facility] Blood 02/22/2024 6:18 AM CDT 02/22/2024 6:43 AM CDT Francy Mc MD LABORATORY [facility] [address] [place] [phone] * (ABNORMAL) CBC WITH PLATELET (02/22/2024 6:18 AM CDT) WBC 3.82(L) 4.00 - 10.00 k/cmm [facility] RBC 2.68(L) 3.90 - 5.20 m/cmm [facility] Hgb 8.1(L) 11.5 - 15.7 g/dL [facility] Hematocrit 25.4(L) 34.0 - 45.0 % [facility] MCV 94.8 80.0 - 100.0 fL [facility] MCH 30.2 25.0 - 32.0 pg [facility] MCHC 31.9 31.0 - 36.0 g/dL [facility] RDW 15.3(H) 11.5 - 14.5 % [facility] Plt 115(L) 150 - 400 k/cmm [facility] MPV 10.0 6.5 - 12.5 fL [facility] Blood 02/22/2024 6:18 AM CDT 02/22/2024 6:43 AM CDT Francy Mc MD LABORATORY [facility] [place] [address] * POC GLUCOSE (02/22/2024 12:39 AM CDT) [facility] POC Glucose 82 70 - 100 mg/dL [facility] POINT OF CARE Blood 02/22/2024 12:3 9 AM CDT Humphrey Roes MD LABORATORY [facility] POINT OF CARE [address] [place] [address] * (ABNORMAL) POC GLUCOSE (02/21/2024 6:03 PM CDT) Pathologist [facility] POC Glucose 144(H) 70 - 100 mg/dL [facility] POINT OF CARE Blood 02/21/2024 6:03 PM CDT Humphrey Rose MD LABORATORY [facility] POINT OF CARE [address] [place] [address], * LACTATE (LACTIC ACID) (02/21/2024 8:38 AM CDT) Lactate 1.3 0.7 - 2.1 mmol/L [facility] Blood 02/21/2024 8:38 AM CDT 02/21/2024 8:49 AM CDT Narrative [facility] - 02/21/2024 8:57 AM CDT Send specimen on ice! Nikos Ferrer MD LABORATORY Performing Organization Address [facility] Co de Phone Number [address] [address] * CALCIUM,IONIZED (02/21/2024 8:38 AM CDT) PH 7.40 7.32 - 7.42 [facility] ICA, Actual 4.45 4.40 - 5.20 mg/dL [facility] ICA, pH Corrected 4.46 4.40 - 5.20 mg/dL [facility] Blood 02/21/2024 8:38 AM CDT 02/21/2024 8:49 AM CDT Narrative [facility] - 02/21/2024 8:57 AM CDT Send specimen on ice! Nikos Ferrer MD LABORATORY Performing Organization Address City/[facility] Co de Phone Number [facility] [address] [address] * PHOSPHORUS (02/21/2024 8:38 AM CDT) Phosphorus 3.5 2.5 - 4.5 mg/dL [facility] Blood 02/21/2024 8:38 AM CDT 02/21/2024 8:50 AM CDT Nikos Ferrer MD LABORATORY Performing Organization Address City/[facility]/ZIP Co de Phone Number [address] [address] * MAGNESIUM (02/21/2024 8:38 AM CDT) Pathologist [facility] Magnesium 2.2 1.6 - 2.6 mg/dL [facility] Blood 02/21/2024 8:38 AM CDT 02/21/2024 8:50 AM CDT Nikos Ferrer MD LABORATORY Performing Organization Address City/[facility]/ZIP Co de Phone Number [facility] [address] [address] * (ABNORMAL) PANEL BASIC METABOLIC (BMP) (02/21/2024 8:38 AM CDT) Pathologist [facility] Sodium 131(L) 135 - 148 mmol/L [facility] Potassium 4.0 3.5 - 5.3 mmol/L [facility] Chloride 98 92 - 108 mmol/L [facility] CO2 27 22 - 30 mmol/L [facility] AnGap 6(L) 8 - 16 mmol/L [facility] Glucose 88 70 - 100 mg/dL [facility] BUN 13 6 - 20 mg/dL [facility] Creatinine 0.52 0.50 - 1.00 mg/dL [facility] Calcium 8.0(L) 8.6 - 10.0 mg/dL [facility] eGFR (2020 CKD-EPI) 107 >=60 ml/min/1.7 3m2 [facility] Comment: The estimated glomerular filtration rate (eGFR) was calculated using the CKD-EPI 2020 creatinine equation, which does not include race as a factor. This equation is validated in individuals 18 years of age and older, and eGFR is normalized to a body surface area of 1.73m^2. Blood 02/21/2024 8:38 AM CDT 02/21/2024 8:50 AM CDT Francy Mc MD LABORATORY Performing Organization Address City/[facility]/ZIP Co de Phone Number [facility] [address] [address] * (ABNORMAL) CBC WITH PLATELET (02/21/2024 8:38 AM CDT) WBC 4.54 4.00 - 10.00 k/cmm [facility] RBC 3.02(L) 3.90 - 5.20 m/cmm [facility] Hgb 9.0(L) 11.5 - 15.7 g/dL [facility] Hematocrit 28.7(L) 34.0 - 45.0 % [facility] MCV 95.0 80.0 - 100.0 fL [facility] MCH 29.8 25.0 - 32.0 pg [facility] MCHC 31.4 31.0 - 36.0 g/dL [facility] RDW 15.2(H) 11.5 - 14.5 % [facility] Plt 120(L) 150 - 400 k/cmm [facility] MPV 10.3 6.5 - 12.5 fL [facility] Blood 02/21/2024 8:38 AM CDT 02/21/2024 8:50 AM CDT Francy Mc MD LABORATORY Performing Organization Address City/[facility]/ZIP Co de Phone Number [address] [address] * CALCIUM,IONIZED (02/20/2024 8:37 PM CDT) PH 7.41 7.32 - 7.42 [facility] ICA, Actual 4.57 4.40 - 5.20 mg/dL [facility] ICA, pH Corrected 4.58 4.40 - 5.20 mg/dL [facility] Blood 02/20/2024 8:37 PM CDT 02/20/2024 9:02 PM CDT Narrative [facility] - 02/20/2024 9:07 PM CDT Send specimen on ice! Autumn Jerome MD LABORATORY [address] [address] * PHOSPHORUS (02/20/2024 8:37 PM CDT) Phosphorus 3.4 2.5 - 4.5 mg/dL [facility] Blood 02/20/2024 8:37 PM CDT 02/20/2024 9:04 PM CDT Autumn Jerome MD LABORATORY Performing Organization Address City/[facility]/ZIP Co de Phone Number [facility] [address] [address] * MAGNESIUM (02/20/2024 8:37 PM CDT) Magnesium 2.2 1.6 - 2.6 mg/dL [facility] Blood 02/20/2024 8:37 PM CDT 02/20/2024 9:04 PM CDT Autumn Jerome MD LABORATORY Performing Organization Address [facility] Co de Phone Number [facility] [address] [address] * (ABNORMAL) PANEL BASIC METABOLIC (BMP) (02/20/2024 8:37 PM CDT) Sodium 129(L) 135 - 148 mmol/L [facility] Potassium 4.2 3.5 - 5.3 mmol/L [facility] Chloride 96 92 - 108 mmol/L [facility] CO2 26 22 - 30 mmol/L [facility] AnGap 7(L) 8 - 16 mmol/L [facility] Glucose 93 70 - 100 mg/dL [facility] BUN 15 6 - 20 mg/dL [facility] Creatinine 0.59 0.50 - 1.00 mg/dL [facility] Calcium 8.1(L) 8.6 - 10.0 mg/dL [facility] eGFR (2020 CKD-EPI) 104 >=60 ml/min/1.7 3m2 [facility] Comment: The estimated glomerular filtration rate (eGFR) was calculated using the CKD-EPI 2020 creatinine equation, which does not include race as a factor. This equation is validated in individuals 18 years of age and older, and eGFR is normalized to a body surface area of 1.73m^2. Blood 02/20/2024 8:37 PM CDT 02/20/2024 9:04 PM CDT Autumn Jerome MD LABORATORY Performing Organization Address [facility] Co de Phone Number [facility] [address] [address] * (ABNORMAL) PROTHROMBIN (PT) & INR (02/20/2024 8:37 PM CDT) PT 15.9(H) 9.0 - 12.5 sec [facility] INR 1.4(H) 0.8 - 1.1 [facility] Comment: Warfarin Therapeutic Range: Standard Intensity: 2.0 - 3.0 High Intensity: 2.5 - 3.5 Blood 02/20/2024 8:37 PM CDT 02/20/2024 9:04 PM CDT Francy Mc MD LABORATORY Performing Organization Address [facility] Co de Phone Number [address] [address] * (ABNORMAL) HEMOGLOBIN (02/20/2024 8:37 PM CDT) Hgb 8.7(L) 11.5 - 15.7 g/dL [facility] Blood 02/20/2024 8:37 PM CDT 02/20/2024 9:04 PM CDT Francy Mc MD LABORATORY Performing Organization Address [facility] Co de Phone Number [address] [address] * CT ABDOMEN/PELVIS W/IV CON (02/20/2024 7:05 PM CDT) Anatomical Region Laterality Modality Abdomen, Pelvis Computed Tomogra phy 02/20/2024 7:02 PM CDT Impressions 02/21/2024 9:02 AM CDT Impression: 1. 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 No evidence of obstruction, volvulus, or perforation. Findings suggest Sully syndrome. 2. Postsurgical changes of Gina-en-Y gastric [...] Radiologist: Landon Mitchell Reading Resident: Dominic Hair 02/21/2024 9:02 AM CDT Comparison: CT abdomen [...] tissue anasarca. Procedure Note Landon Mitchell V., MBBS - 02/21/2024 Comparison: CT abdomen and [...] POC Glucose 119(H) 70 - 100 mg/dL [facility] Blood 02/20/2024 6:32 PM CDT Humphrey Rose MD LABORATORY Performing Organization Address [facility] Co de Phone Number [facility]ARE [address] [place] [address] * LACTATE (LACTIC ACID) (02/20/2024 5:38 PM CDT) Lactate 1.8 0.7 - 2.1 mmol/L [facility] Blood 02/20/2024 5:38 PM CDT 02/20/2024 5:44 PM CDT Narrative [facility] - 02/20/2024 5:48 PM CDT Send specimen on ice! Francy Mc MD LABORATORY [facility] [place] [address] * XR ABDOMEN 1 VIEW* (02/20/2024 4:42 [...] Total Protein 5.9(L) 6.4 - 8.3 g/dL [facility] Albumin 3.1(L) 3.8 - 5.1 g/dL [facility] Bili Total 0.9 <=1.2 mg/dL [facility] Bili Direct 0.3 <=0.3 mg/dL [facility] Alk Phos 114(H) 35 - 104 IU/L [facility] Comment:No reference range e stablished for patients <18 years old. ALT (SGPT) 5 <=33 IU/L [facility] AST(SGOT) 38 5 - 40 IU/L [facility] Blood 02/20/2024 7:44 AM CDT 02/20/2024 3:36 PM CDT Francy Mc MD LABORATORY Performing Organization Address City/[facility]/ZIP Co de Phone Number [facility] [address] [address] * (ABNORMAL) PANEL BASIC METABOLIC (BMP) (02/20/2024 7:44 AM CDT) Sodium 129(L) 135 - 148 mmol/L [facility] Potassium 4.1 3.5 - 5.3 mmol/L [facility] Chloride 96 92 - 108 mmol/L [facility] CO2 27 22 - 30 mmol/L [facility] AnGap 6(L) 8 - 16 mmol/L [facility] Glucose 83 70 - 100 mg/dL [facility] BUN 15 6 - 20 mg/dL [facility] Creatinine 0.61 0.50 - 1.00 mg/dL [facility] Calcium 8.0(L) 8.6 - 10.0 mg/dL [facility] eGFR (2020 CKD-EPI) 103 >=60 ml/min/1.7 3m2 [facility] Comment: The estimated glomerular filtration rate (eGFR) was calculated using the CKD-EPI 2020 creatinine equation, which does not include race as a factor. This equation is validated in individuals 18 years of age and older, and eGFR is normalized to a body surface area of 1.73m^2. Blood 02/20/2024 7:44 AM CDT 02/20/2024 8:35 AM CDT Francy Mc MD LABORATORY Performing Organization Address City/[facility]/ZIP Co de Phone Number [facility] [address] [address] * (ABNORMAL) CBC WITH PLATELET (02/20/2024 7:44 AM CDT) Pathologist [facility] WBC 3.10(L) 4.00 - 10.00 k/cmm [facility] RBC 2.63(L) 3.90 - 5.20 m/cmm [facility] Hgb 8.0(L) 11.5 - 15.7 g/dL [facility] Hematocrit 25.7(L) 34.0 - 45.0 % [facility] MCV 97.7 80.0 - 100.0 fL [facility] MCH 30.4 25.0 - 32.0 pg [facility] MCHC 31.1 31.0 - 36.0 g/dL [facility] RDW 15.3(H) 11.5 - 14.5 % [facility] Plt 116(L) 150 - 400 k/cmm [facility] MPV 10.8 6.5 - 12.5 fL [facility] Blood 02/20/2024 7:44 AM CDT 02/20/2024 8:35 AM CDT Francy Mc MD LABORATORY Performing Organization Address [facility] Co de Phone Number [address] [address] * POC GLUCOSE (02/20/2024 6:18 AM CDT) Pathologist [facility] POC Glucose 92 70 - 100 mg/dL [facility] POINT OF CARE Blood 02/20/2024 6:18 AM CDT Humphrey Rose MD LABORATORY Performing Organization Address City/[facility]/ZIP Co de Phone Number [facility] POINT OF CARE [address] [place] [address] * (ABNORMAL) POC GLUCOSE (02/19/2024 9:24 PM CDT) Pathologist [facility] POC Glucose 128(H) 70 - 100 mg/dL [facility] POINT [facility] CARE Blood 02/19/2024 9:24 PM CDT Humphrey Rose MD LABORATORY [facility] POINT OF CARE [address] [place] [address], [place] * POC GLUCOSE (02/19/2024 4:19 PM CDT) POC Glucose 83 70 - 100 mg/dL [facility] POINT OF [facility] Blood 02/19/2024 4:19 PM CDT Humphrey Rose MD LABORATORY Performing Organization Address City/[facility] Co de Phone Number [facility] POINT [facility] [address] [place] [phone], [place] * Paracentesis (02/19/2024 2:55 PM CDT) [...] to verify the correct patient, procedure, equipment, clerical support and site/side marked as required. Initial [...] POC Glucose 82 70 - 100 mg/dL [facility] Blood 02/19/2024 11:0 6 AM CDT Humphrey Rose MD LABORATORY [facility]ARE [address] [place] [address], * POC GLUCOSE (02/19/2024 6:02 AM CDT) [facility] POC Glucose 84 70 - 100 mg/dL [facility]INT [facility] Blood 02/19/2024 6:02 AM CDT Humphrey Rose MD LABORATORY Performing Organization Address [facility]/ZIP Co de Phone Number [facility] [address] [place] [address] * (ABNORMAL) CBC WITH PLATELET (02/19/2024 5:03 AM CDT) [facility] WBC 3.27(L) 4.00 - 10.00 k/cmm [facility] RBC 2.64(L) 3.90 - 5.20 m/cmm [facility] Hgb 8.1(L) 11.5 - 15.7 g/dL [facility] Hematocrit 25.8(L) 34.0 - 45.0 % [facility] MCV 97.7 80.0 - 100.0 fL [facility] MCH 30.7 25.0 - 32.0 pg [facility] MCHC 31.4 31.0 - 36.0 g/dL [facility] RDW 15.3(H) 11.5 - 14.5 % [facility] Plt 127(L) 150 - 400 k/cmm [facility] MPV 10.4 6.5 - 12.5 fL [facility] Blood 02/19/2024 5:03 AM CDT 02/19/2024 5:39 AM CDT Francy Mc MD LABORATORY [facility] [address] [place] [address] * (ABNORMAL) PANEL BASIC METABOLIC (BMP) (02/19/2024 5:03 AM CDT) [facility] Sodium 129(L) 135 - 148 mmol/L [facility] Potassium 4.3 3.5 - 5.3 mmol/L [facility] Chloride 95 92 - 108 mmol/L [facility] CO2 26 22 - 30 mmol/L [facility] AnGap 8 8 - 16 mmol/L [facility] Glucose 80 70 - 100 mg/dL [facility] BUN 18 6 - 20 mg/dL [facility] Creatinine 0.65 0.50 - 1.00 mg/dL [facility] Calcium 8.4(L) 8.6 - 10.0 mg/dL [facility] eGFR (2020 CKD-EPI) 101 >=60 ml/min/1.7 3m2 [facility] Comment: The estimated glomerular filtration rate (eGFR) was calculated using the CKD-EPI 2020 creatinine equation, which does not include race as a factor. This equation is validated in individuals 18 years of age and older, and eGFR is normalized to a body surface area of 1.73m^2. Blood 02/19/2024 5:03 AM CDT 02/19/2024 5:39 AM CDT Francy Mc MD LABORATORY Performing Organization Address City/[facility]/ZIP Co de Phone Number [place] [phone] * POC GLUCOSE (02/19/2024 12:07 AM CDT) POC Glucose 85 70 - 100 mg/dL [facility] Blood 02/19/2024 12:0 7 AM CDT Humphrey Rose MD LABORATORY Performing Organization Address City/[facility]/ZIP Co de Phone Number [facility] [address] [place] [address], * (ABNORMAL) SODIUM (02/18/2024 9:39 PM CDT) Sodium 126(L) 135 - 148 mmol/L [facility] Blood 02/18/2024 9:39 PM CDT 02/18/2024 10:05 PM CDT Francy Mc MD LABORATORY Performing Organization Address City/[facility]/ZIP Co de Phone Number [address] [address] * OSMOLALITY,URINE-RANDOM LASHELL (02/18/2024 4:31 PM CDT) Urine Osmo 293 50 - 800 mOsm/Kg [facility] Urine 02/18/2024 4:31 PM CDT 02/18/2024 4:43 PM CDT Francy Mc MD LABORATORY Performing Organization Address City/[facility]/ZIP Co de Phone Number [facility] [address] [address] * (ABNORMAL) SODIUM,URINE-RANDOM LASHELL (02/18/2024 4:31 PM CDT) Pathologist [facility] Sodium Urine <20(L) 40 - 200 mEq/L [facility] Urine 02/18/2024 4:31 PM CDT 02/18/2024 4:43 PM CDT Francy Mc MD LABORATORY Performing Organization Address [facility] Co de Phone Number [facility] [address] [address] * (ABNORMAL) SODIUM (02/18/2024 3:10 PM CDT) Pathologist [facility] Sodium 125(AA) 135 - 148 mmol/L [facility] Comment:Critical Result Low Blood 02/18/2024 3:10 PM CDT 02/18/2024 3:36 PM CDT Narrative [facility] - 02/18/2024 4:25 PM CDT Critical value for Na called to and read back by Francy Mc MD in Ortho at 02/18/2024 16:24:57 CDT by Marion Tate MLS. Francy Mc MD LABORATORY Performing Organization Address City/[facility]/ZIP Co de Phone Number [facility] [address] [address] * TSH WITH REFLEX TO FREE T4 (02/18/2024 8:33 AM CDT) Pathologist [facility] TSH 1.99 0.27 - 4.20 mIU/L [facility] Blood 02/18/2024 8:33 AM CDT 02/18/2024 5:10 PM CDT Francy Mc MD LABORATORY Performing Organization Address City/[facility]/ZIP Co de Phone Number [facility] [address] [address] * (ABNORMAL) PANEL BASIC METABOLIC (BMP) (02/18/2024 8:33 AM CDT) Pathologist [facility] Sodium 127(L) 135 - 148 mmol/L [facility] Potassium 4.2 3.5 - 5.3 mmol/L [facility] Chloride 95 92 - 108 mmol/L [facility] CO2 25 22 - 30 mmol/L [facility] AnGap 7(L) 8 - 16 mmol/L [facility] Glucose 92 70 - 100 mg/dL [facility] BUN 18 6 - 20 mg/dL [facility] Creatinine 0.71 0.50 - 1.00 mg/dL [facility] Calcium 7.9(L) 8.6 - 10.0 mg/dL [facility] eGFR (2020 CKD-EPI) 98 >=60 ml/min/1.7 3m2 [facility] Comment: The estimated glomerular filtration rate (eGFR) was calculated using the CKD-EPI 2020 creatinine equation, which does not include race as a factor. This equation is validated in individuals 18 years of age and older, and eGFR is normalized to a body surface area of 1.73m^2. Blood 02/18/2024 8:33 AM CDT 02/18/2024 8:45 AM CDT Francy Mc MD LABORATORY Performing Organization Address City/[facility]/ZIP Co de Phone Number [facility] [address] [phone] * (ABNORMAL) CBC WITH PLATELET (02/18/2024 8:33 AM CDT) Pathologist [facility] WBC 4.30 4.00 - 10.00 k/cmm [facility] RBC 3.08(L) 3.90 - 5.20 m/cmm [facility] Hgb 9.6(L) 11.5 - 15.7 g/dL [facility] Hematocrit 29.2(L) 34.0 - 45.0 % [facility] MCV 94.8 80.0 - 100.0 fL [facility] MCH 31.2 25.0 - 32.0 pg [facility] [facility] MCHC 32.9 31.0 - 36.0 g/dL [facility] RDW 15.5(H) 11.5 - 14.5 % [facility] Plt 148(L) 150 - 400 k/cmm [facility] MPV 10.1 6.5 - 12.5 fL [facility] Blood 02/18/2024 8:33 AM CDT 02/18/2024 8:45 AM CDT Francy Mc MD LABORATORY Performing Organization Address City/[facility]/ZIP Co de Phone Number [facility] [place] [address] * POC GLUCOSE (02/18/2024 8:06 AM CDT) POC Glucose 74 70 - 100 mg/dL [facility] Blood 02/18/2024 8:06 AM CDT Humphrey Rose MD LABORATORY Performing Organization Address City/[facility] Co de Phone Number [facility] [address] [place] [address], [place] * (ABNORMAL) POC GLUCOSE (02/17/2024 11:13 AM CDT) POC Glucose 113(H) 70 - 100 mg/dL [facility] Blood 02/17/2024 11:1 3 AM CDT Humphrey Rose MD LABORATORY Performing Organization Address City/[facility] Co de Phone Number [facility] [address] [place] [address], [place] * (ABNORMAL) PANEL BASIC METABOLIC (BMP) (02/17/2024 7:19 AM CDT) CO2 25 22 - 30 mEq/L [facility] Glucose 83 70 - 100 mg/dL [facility] BUN 16 6 - 20 mg/dL [facility] Creatinine 0.59 0.50 - 1.00 mg/dL [facility] Calcium 7.7(L) 8.6 - 10.0 mg/dL [facility] Sodium 128(L) 135 - 148 mEq/L [facility] Potassium 4.0 3.5 - 5.3 mEq/L [facility] Chloride 97 92 - 108 mEq/L [facility] eGFR (2020 CKD-EPI) 104 >=60 ml/min/1.7 3m2 [facility] Comment: The estimated glomerular filtration rate (eGFR) was calculated using the CKD-EPI 2020 creatinine equation, which does not include race as a factor. This equation is validated in individuals 18 years of age and older, and eGFR is normalized to a body surface area of 1.73m^2. AnGap 6(L) 8 - 16 mEq/L [facility] Blood 02/17/2024 7:19 AM CDT 02/17/2024 8:14 AM CDT Francy Mc MD LABORATORY [facility] [address] [address] * (ABNORMAL) CBC WITH PLATELET (02/17/2024 7:19 AM CDT) WBC 4.68 4.00 - 10.00 k/cmm [facility] RBC 2.63(L) 3.90 - 5.20 m/cmm [facility] Hgb 8.0(L) 11.5 - 15.7 g/dL [facility] Hematocrit 25.5(L) 34.0 - 45.0 % [facility] MCV 97.0 80.0 - 100.0 fL [facility] MCH 30.4 25.0 - 32.0 pg [facility] MCHC 31.4 31.0 - 36.0 g/dL [facility] RDW 15.3(H) 11.5 - 14.5 % [facility] Plt 133(L) 150 - 400 k/cmm [facility] MPV 10.5 6.5 - 12.5 fL [facility] Blood 02/17/2024 7:19 AM CDT 02/17/2024 8:14 AM CDT Francy Mc MD LABORATORY [facility] [address] [place] [address] * POC GLUCOSE (02/17/2024 6:02 AM CDT) POC Glucose 86 70 - 100 mg/dL [facility] Blood 02/17/2024 6:02 AM CDT Humphrey Rose MD LABORATORY Performing Organization Address City/[facility] Co de Phone Number [facility] POINT [place] [id number], [place] * POC GLUCOSE (02/17/2024 12:02 AM CDT) POC Glucose 95 70 - 100 mg/dL [facility] POINT [facility] Blood 02/17/2024 12:0 2 AM CDT Humphrey Rose MD LABORATORY Performing Organization Address City/[facility]/ZIP Co de Phone Number [facility] POINT OF [place] [address], [place] * (ABNORMAL) POC GLUCOSE (02/16/2024 6:18 PM CDT) POC Glucose 155(H) 70 - 100 mg/dL [facility] Blood 02/16/2024 6:18 PM CDT Humphrey Rose MD LABORATORY [facility] [address] [place], [place] [address], [place] * Paracentesis (02/16/2024 3:19 PM CDT) [...] to verify the correct patient, procedure, equipment, clerical support and site/side marked as required. Initial [...] 2:56 PM CDT) Final Report No growth. [facility] Gram Stain Report PMN's seen. No organisms seen. [facility] Peritoneal Fluid PERITONEUM (SEROUS MEMBRANE) STRUCTURE / Unknown 02/16/2024 2:56 PM CDT 02/16/2024 3:54 PM CDT Francy Mc MD LAB MICROBIOLOG Y Performing Organization Address [facility]/ZIP Co de Phone Number [facility] [address] [address] * BODY FLUID CELL COUNT/DIFF (02/16/2024 2:55 PM CDT) Fluid Type PT Peritoneal [facility] Comment:Normal reference ran ges have not been determined; clinical correlation is recommended. Volume PT Fluid 1,000 mL [facility] Appearance PT Clear [facility] Color bf Yellow [facility] Rbc PT Fluid <1,000 cells/ul [facility] Nuc Ct PT Fluid 167 cells/ul [facility] Neutrophil PT Fluid 16 % [facility] Lymphocytes PT Fluid 44 % [facility] Basophil PT Fluid 1 % [facility] MONO/MACS FL 33 % [facility] Other PT Fluid 6 % [facility] Comment:Others are mesotheli al cells. Peritoneal Fluid 02/16/2024 2:55 PM CDT 02/16/2024 3:43 PM CDT Francy Mc MD LABORATORY Performing Organization Address City/[facility]/ZIP Co de Phone Number [facility] [address] [address] * (ABNORMAL) CBC WITH PLATELET (02/16/2024 8:12 AM CDT) WBC 5.95 4.00 - 10.00 k/cmm [facility] RBC 3.08(L) 3.90 - 5.20 m/cmm [facility] Hgb 9.3(L) 11.5 - 15.7 g/dL [facility] Hematocrit 29.4(L) 34.0 - 45.0 % [facility] MCV 95.5 80.0 - 100.0 fL [facility] MCH 30.2 25.0 - 32.0 pg [facility] MCHC 31.6 31.0 - 36.0 g/dL [facility] RDW 15.6(H) 11.5 - 14.5 % [facility] Plt 167 150 - 400 k/cmm [facility] MPV 10.2 6.5 - 12.5 fL [facility] Blood 02/16/2024 8:12 AM CDT 02/16/2024 8:54 AM CDT Ernestine Toribio MD LABORATORY Performing Organization Address City/[facility] Co de Phone Number [facility] [address] [address] * (ABNORMAL) PANEL HEPATIC FUNCTION (02/16/2024 8:12 AM CDT) Total Protein 6.6 6.4 - 8.3 g/dL [facility] Albumin 2.2(L) 3.8 - 5.1 g/dL [facility] Bili Total 0.8 <=1.2 mg/dL [facility] Bili Direct 0.4(H) <=0.3 mg/dL [facility] Alk Phos 155(H) 35 - 104 IU/L [facility] Comment:No reference range e stablished for patients <18 years old. ALT (SGPT) <5 <=33 IU/L [facility] AST(SGOT) 42(H) 5 - 40 IU/L [facility] Blood 02/16/2024 8:12 AM CDT 02/16/2024 8:54 AM CDT Ernestine Toribio MD LABORATORY Performing Organization Address City/[facility]/ZIP Co de Phone Number [facility] [address] [address] * (ABNORMAL) PROTHROMBIN (PT) & INR (02/16/2024 8:12 AM CDT) PT 16.0(H) 9.0 - 12.5 sec [facility] INR 1.4(H) 0.8 - 1.1 [facility] Comment: Warfarin Therapeutic Range: Standard Intensity: 2.0 - 3.0 High Intensity: 2.5 - 3.5 Blood 02/16/2024 8:12 AM CDT 02/16/2024 8:54 AM CDT Ernestine Toribio MD LABORATORY Performing Organization Address [facility] de Phone Number [facility] [address] [address] * MAGNESIUM (02/16/2024 8:12 AM CDT) [facility] Magnesium 2.0 1.6 - 2.6 mg/dL [facility] Blood 02/16/2024 8:12 AM CDT 02/16/2024 8:54 AM CDT Ernestine Toribio MD LABORATORY Performing Organization Address [facility] de Phone Number [facility] [address] [address] * (ABNORMAL) PANEL BASIC METABOLIC (BMP) (02/16/2024 8:12 AM CDT) [facility] Sodium 129(L) 135 - 148 mEq/L [facility] Potassium 3.6 3.5 - 5.3 mEq/L [facility] Chloride 96 92 - 108 mEq/L [facility] CO2 26 22 - 30 mEq/L [facility] AnGap 7(L) 8 - 16 mEq/L [facility] Glucose 81 70 - 100 mg/dL [facility] BUN 18 6 - 20 mg/dL [facility] Creatinine 0.62 0.50 - 1.00 mg/dL [facility] Calcium 7.5(L) 8.6 - 10.0 mg/dL [facility] eGFR (2020 CKD-EPI) 103 >=60 ml/min/1.7 3m2 [facility] Comment: The estimated glomerular filtration rate (eGFR) was calculated using the CKD-EPI 2020 creatinine equation, which does not include race as a factor. This equation is validated in individuals 18 years of age and older, and eGFR is normalized to a body surface area of 1.73m^2. Blood 02/16/2024 8:12 AM CDT 02/16/2024 8:54 AM CDT Ernestine Toribio MD LABORATORY [facility] [address] [place] [address] * POC GLUCOSE (02/16/2024 6:35 AM CDT) POC Glucose 70 70 - 100 mg/dL [facility] Blood 02/16/2024 6:35 AM CDT Humphrey Rose MD LABORATORY Performing Organization Address [facility] Co de Phone Number [facility] POINT OF [place] [phone], [place] * POC GLUCOSE (02/15/2024 11:47 PM CDT) POC Glucose 82 70 - 100 mg/dL [facility] Blood 02/15/2024 11:4 7 PM CDT Humphrey Rose MD LABORATORY Performing Organization Address [facility] Co de Phone Number [facility] POINT OF [place] [address], [place] * (ABNORMAL) POC GLUCOSE (02/15/2024 5:52 PM CDT) POC Glucose 167(H) 70 - 100 mg/dL [facility] Blood 02/15/2024 5:52 PM CDT Humphrey Rose MD LABORATORY Performing Organization Address City/[facility] Co de Phone Number [facility]ARE [address] [place], [place] [address], [place] * POC GLUCOSE (02/15/2024 1:21 PM CDT) POC Glucose 86 70 - 100 mg/dL [facility] Blood 02/15/2024 1:21 PM CDT Humphrey Rose MD LABORATORY Performing Organization Address [facility] Co de Phone Number [facility] PO[facility] [address] [place] [address], [place] * (ABNORMAL) POC GLUCOSE (02/15/2024 12:21 PM CDT) POC Glucose 66(L) 70 - 100 mg/dL [facility]INT [facility] CARE Blood 02/15/2024 12:2 1 PM CDT Humphrey Rose MD LABORATORY Performing Organization Address [facility] de Phone Number [facility] [address] [place] [address], [place] * XR ABDOMEN 1 VIEW* (02/15/2024 [...] POC Glucose 86 70 - 100 mg/dL [facility] Blood 02/15/2024 10:4 6 AM CDT Humphrey Rose MD LABORATORY [facility] [address] [place] [address], * FLEXIBLE SIGMOIDOSCOPY (02/15/2024 9:55 AM CDT) 02/15/2024 9:55 AM CDT Narrative [facility] - 02/15/2024 11:22 AM CDT Gastroenterology Lab Patient Name: Cathy Raymond ?Procedure Date: 02/15/2024 9:55 AM ?Date of : 1965 Admit Type: Inpatient ? Age: 58 Gender: Female Procedure: ? Flexible Sigmoidoscopy Providers: ? Raven Dominguez RN, Unknown Karma, Sculpture Instructor (Sculpture Instructor), Olesya Whipple (Fellow) Referring MD: ?Self Referral [...] the entire procedure, including non-valencia portions. Ugo Cantrellonso, , [phone] 02/15/2024 11:20:50 AM Olesya Sole, , [id number] Number of Addenda: 0 Note Initiated On: 02/15/2024 9:55 AM Nataly Quinones PA-C [facility] Performing Organization Address City/[facility]/ZIP Co de Phone Number [facility] * MAGNESIUM (02/15/2024 6:48 AM CDT) Magnesium 2.2 1.6 - 2.6 mg/dL [facility] Blood 02/15/2024 6:48 AM CDT 02/15/2024 7:32 AM CDT Ernestine Toribio MD LABORATORY Performing Organization Address City/[facility]/ZIP Co de Phone Number [facility] [place] [phone] * PHOSPHORUS (02/15/2024 6:48 AM CDT) Phosphorus 3.3 2.5 - 4.5 mg/dL [facility] Blood 02/15/2024 6:48 AM CDT 02/15/2024 7:32 AM CDT Ernestine Toribio MD LABORATORY Performing Organization Address [facility] Co de Phone Number [facility] [address] [address] * (ABNORMAL) CBC WITH PLATELET (02/15/2024 6:48 AM CDT) WBC 5.76 4.00 - 10.00 k/cmm [facility] RBC 2.90(L) 3.90 - 5.20 m/cmm [facility] Hgb 8.9(L) 11.5 - 15.7 g/dL [facility] Hematocrit 28.4(L) 34.0 - 45.0 % [facility] MCV 97.9 80.0 - 100.0 fL [facility] MCH 30.7 25.0 - 32.0 pg [facility] MCHC 31.3 31.0 - 36.0 g/dL [facility] RDW 15.3(H) 11.5 - 14.5 % [facility] Plt 156 150 - 400 k/cmm [facility] MPV 10.3 6.5 - 12.5 fL [facility] Blood 02/15/2024 6:48 AM CDT 02/15/2024 7:49 AM CDT Ernestine Toribio MD LABORATORY Performing Organization Address City/[facility] Co de Phone Number [facility] [address] [address] * (ABNORMAL) PROTHROMBIN (PT) & INR (02/15/2024 6:48 AM CDT) PT 15.5(H) 9.0 - 12.5 sec [facility] INR 1.4(H) 0.8 - 1.1 [facility] Comment: Warfarin Therapeutic Range: Standard Intensity: 2.0 - 3.0 High Intensity: 2.5 - 3.5 Blood 02/15/2024 6:48 AM CDT 02/15/2024 7:32 AM CDT Ernestine Toribio MD LABORATORY Performing Organization Address [facility] Co de Phone Number [facility] [address] [address] * (ABNORMAL) PANEL HEPATIC FUNCTION (02/15/2024 6:48 AM CDT) Total Protein 6.3(L) 6.4 - 8.3 g/dL [facility] Albumin 1.9(L) 3.8 - 5.1 g/dL [facility] Bili Total 0.7 <=1.2 mg/dL [facility] Bili Direct 0.3 <=0.3 mg/dL [facility] Alk Phos 144(H) 35 - 104 IU/L [facility] Comment:No reference range e stablished for patients <18 years old. ALT (SGPT) <5 <=33 IU/L [facility] AST(SGOT) 37 5 - 40 IU/L [facility] Blood 02/15/2024 6:48 AM CDT 02/15/2024 7:32 AM CDT Ernestine Toribio MD LABORATORY [facility] [address] [address] * (ABNORMAL) PANEL BASIC METABOLIC (BMP) (02/15/2024 6:48 AM CDT) Sodium 129(L) 135 - 148 mEq/L [facility] Potassium 4.1 3.5 - 5.3 mEq/L [facility] Chloride 97 92 - 108 mEq/L [facility] CO2 26 22 - 30 mEq/L [facility] AnGap 6(L) 8 - 16 mEq/L [facility] Glucose 80 70 - 100 mg/dL [facility] BUN 17 6 - 20 mg/dL [facility] Creatinine 0.60 0.50 - 1.00 mg/dL [facility] Calcium 7.7(L) 8.6 - 10.0 mg/dL [facility] eGFR (2020 CKD-EPI) 103 >=60 ml/min/1.7 3m2 [facility] Comment: The estimated glomerular filtration rate (eGFR) was calculated using the CKD-EPI 2020 creatinine equation, which does not include race as a factor. This equation is validated in individuals 18 years of age and older, and eGFR is normalized to a body surface area of 1.73m^2. Blood 02/15/2024 6:48 AM CDT 02/15/2024 7:32 AM CDT Ernestine Toribio MD LABORATORY [facility] [address] [address] * POC GLUCOSE (02/15/2024 6:04 AM CDT) POC Glucose 77 70 - 100 mg/dL [facility] Blood 02/15/2024 6:04 AM CDT Humphrey Rose MD LABORATORY [facility] POINT OF CARE [address] [place] [address], [place] * POC GLUCOSE (02/15/2024 12:06 AM CDT) POC Glucose 85 70 - 100 mg/dL [facility] Blood 02/15/2024 12:0 6 AM CDT Humphrey Rose MD LABORATORY Performing Organization Address City/[facility]/ZIP Co de Phone Number [facility] POINT OF CARE [address] [place] [address], [place] * POC GLUCOSE (02/14/2024 9:02 PM CDT) POC Glucose 74 70 - 100 mg/dL [facility] POINT [facility] CARE Blood 02/14/2024 9:02 PM CDT Humphrey Rose MD LABORATORY Performing Organization Address City/[facility] Co de Phone Number [facility] [address] [place] [address], [place] * XR ABDOMEN 1 VIEW* (02/14/2024 [...] LACTATE (LACTIC ACID) (02/14/2024 5:01 PM CDT) [facility] Lactate 1.1 0.7 - 2.1 mmol/L [facility] Blood 02/14/2024 5:01 PM CDT 02/14/2024 5:10 PM CDT Narrative [facility] - 02/14/2024 5:14 PM CDT Send specimen on ice! Ernestine Toribio MD LABORATORY Performing Organization Address City/[facility]/ZIP Co de Phone Number [facility] [place] [address] * POC GLUCOSE (02/14/2024 4:10 PM CDT) Pathologist [facility] POC Glucose 92 70 - 100 mg/dL [facility] POINT [facility] CARE Blood 02/14/2024 4:10 PM CDT Humphrey Rose MD LABORATORY [facility] [address] [place] [address], * POC GLUCOSE (02/14/2024 11:12 AM CDT) POC Glucose 85 70 - 100 mg/dL [facility] Blood 02/14/2024 11:1 2 AM CDT Humphrey Rose MD LABORATORY [facility] [address] [address], [place] * XR ABDOMEN 1 VIEW* (02/14/2024 [...] CDT) Phosphorus 3.5 2.5 - 4.5 mg/dL [facility] Blood 02/14/2024 8:18 AM CDT 02/14/2024 9:14 AM CDT Ernestine Toribio MD LABORATORY Performing Organization Address [facility] Co de Phone Number [facility] [address] [address] * MAGNESIUM (02/14/2024 8:18 AM CDT) Magnesium 2.1 1.6 - 2.6 mg/dL [facility] Blood 02/14/2024 8:18 AM CDT 02/14/2024 9:14 AM CDT Ernestine Toribio MD LABORATORY Performing Organization Address [facility] de Phone Number [facility] [address] [address] * (ABNORMAL) PROTHROMBIN (PT) & INR (02/14/2024 8:18 AM CDT) PT 15.8(H) 9.0 - 12.5 sec [facility] INR 1.4(H) 0.8 - 1.1 [facility] Comment: Warfarin Therapeutic Range: Standard Intensity: 2.0 - 3.0 High Intensity: 2.5 - 3.5 Blood 02/14/2024 8:18 AM CDT 02/14/2024 9:13 AM CDT Ernestine Toribio MD LABORATORY Performing Organization Address [facility] Co de Phone Number [facility] [address] [address] * (ABNORMAL) CBC WITH PLATELET (02/14/2024 8:18 AM CDT) WBC 5.76 4.00 - 10.00 k/cmm [facility] RBC 3.00(L) 3.90 - 5.20 m/cmm [facility] Hgb 9.1(L) 11.5 - 15.7 g/dL [facility] Hematocrit 29.5(L) 34.0 - 45.0 % [facility] MCV 98.3 80.0 - 100.0 fL [facility] MCH 30.3 25.0 - 32.0 pg [facility] MCHC 30.8(L) 31.0 - 36.0 g/dL [facility] RDW 15.4(H) 11.5 - 14.5 % [facility] Plt 166 150 - 400 k/cmm [facility] MPV 10.0 6.5 - 12.5 fL [facility] Blood 02/14/2024 8:18 AM CDT 02/14/2024 9:14 AM CDT Ernestine Toribio MD LABORATORY [facility] [address] [id number] * (ABNORMAL) PANEL HEPATIC FUNCTION (02/14/2024 8:18 AM CDT) Total Protein 6.6 6.4 - 8.3 g/dL [facility] Albumin 2.0(L) 3.8 - 5.1 g/dL [facility] Bili Total 0.8 <=1.2 mg/dL [facility] Bili Direct 0.3 <=0.3 mg/dL [facility] Alk Phos 146(H) 35 - 104 IU/L [facility] Comment:No reference range e stablished for patients <18 years old. ALT (SGPT) <5 <=33 IU/L [facility] AST(SGOT) 41(H) 5 - 40 IU/L [facility] Blood 02/14/2024 8:18 AM CDT 02/14/2024 9:14 AM CDT Ernestine Toribio MD LABORATORY [facility] [address] [id number] * (ABNORMAL) PANEL BASIC METABOLIC (BMP) (02/14/2024 8:18 AM CDT) Sodium 128(L) 135 - 148 mEq/L [facility] Potassium 3.9 3.5 - 5.3 mEq/L [facility] Chloride 95 92 - 108 mEq/L [facility] CO2 25 22 - 30 mEq/L [facility] AnGap 8 8 - 16 mEq/L [facility] Glucose 78 70 - 100 mg/dL [facility] BUN 16 6 - 20 mg/dL [facility] Creatinine 0.58 0.50 - 1.00 mg/dL [facility] Calcium 7.6(L) 8.6 - 10.0 mg/dL [facility] eGFR (2020 CKD-EPI) 104 >=60 ml/min/1.7 3m2 [facility] [facility] Comment: The estimated glomerular filtration rate (eGFR) was calculated using the CKD-EPI 2020 creatinine equation, which does not include race as a factor. This equation is validated in individuals 18 years of age and older, and eGFR is normalized to a body surface area of 1.73m^2. Blood 02/14/2024 8:18 AM CDT 02/14/2024 9:14 AM CDT Ernestine Toribio MD LABORATORY Performing Organization Address City/[facility] Co de Phone Number [facility] [place] [address] * POC GLUCOSE (02/14/2024 6:07 AM CDT) POC Glucose 75 70 - 100 mg/dL [facility] POINT OF CARE Blood 02/14/2024 6:07 AM CDT Humphrey Rose MD LABORATORY Performing Organization Address [facility] Co de Phone Number [facility] POINT OF CARE [address] [place] [address], * POC GLUCOSE (02/13/2024 11:59 PM CDT) POC Glucose 93 70 - 100 mg/dL [facility] POINT OF CARE Blood 02/13/2024 11:5 9 PM CDT Humphrey Rose MD LABORATORY Performing Organization Address [facility] Co de Phone Number [facility] POINT OF CARE [address] [place] [address], * (ABNORMAL) POC GLUCOSE (02/13/2024 6:06 PM CDT) [facility] POC Glucose 108(H) 70 - 100 mg/dL [facility] POINT OF CARE Blood 02/13/2024 6:06 PM CDT Humphrey Rose MD LABORATORY Performing Organization Address City/[facility]/ZIP Co de Phone Number [facility] POINT OF CARE [address] [place] [address], [place] * POC GLUCOSE (02/13/2024 11:46 AM CDT) [facility] POC Glucose 90 70 - 100 mg/dL [facility] POINT OF [facility] Blood 02/13/2024 11:4 6 AM CDT Humphrey Rose MD LABORATORY Performing Organization Address City/[facility] Co de Phone Number [facility] POINT OF CARE [address] [place] [address], [place] * (ABNORMAL) CBC WITH PLATELET (02/13/2024 9:06 AM CDT) [facility] WBC 4.84 4.00 - 10.00 k/cmm [facility] RBC 2.96(L) 3.90 - 5.20 m/cmm [facility] Hgb 8.9(L) 11.5 - 15.7 g/dL [facility] Hematocrit 28.1(L) 34.0 - 45.0 % [facility] MCV 94.9 80.0 - 100.0 fL [facility] MCH 30.1 25.0 - 32.0 pg [facility] MCHC 31.7 31.0 - 36.0 g/dL [facility] RDW 15.4(H) 11.5 - 14.5 % [facility] Plt 174 150 - 400 k/cmm [facility] MPV 9.9 6.5 - 12.5 fL [facility] Blood 02/13/2024 9:06 AM CDT 02/13/2024 9:28 AM CDT Ernestine Toribio MD LABORATORY Performing Organization Address [facility] Co de Phone Number [facility] [address] [address] * (ABNORMAL) PANEL BASIC METABOLIC (BMP) (02/13/2024 9:06 AM CDT) Sodium 131(L) 135 - 148 mEq/L [facility] Potassium 3.8 3.5 - 5.3 mEq/L [facility] Chloride 97 92 - 108 mEq/L [facility] CO2 27 22 - 30 mEq/L [facility] AnGap 7(L) 8 - 16 mEq/L [facility] Glucose 87 70 - 100 mg/dL [facility] BUN 16 6 - 20 mg/dL [facility] Creatinine 0.60 0.50 - 1.00 mg/dL [facility] Calcium 7.5(L) 8.6 - 10.0 mg/dL [facility] eGFR (2020 CKD-EPI) 103 >=60 ml/min/1.7 3m2 [facility] Comment: The estimated glomerular filtration rate (eGFR) was calculated using the CKD-EPI 2020 creatinine equation, which does not include race as a factor. This equation is validated in individuals 18 years of age and older, and eGFR is normalized to a body surface area of 1.73m^2. Blood 02/13/2024 9:06 AM CDT 02/13/2024 9:28 AM CDT Ernestine Toribio MD LABORATORY Performing Organization Address [facility] Co de Phone Number [facility] [address] [address] * (ABNORMAL) PANEL HEPATIC FUNCTION (02/13/2024 9:06 AM CDT) Total Protein 6.4 6.4 - 8.3 g/dL [facility] Albumin 2.1(L) 3.8 - 5.1 g/dL [facility] Bili Total 0.9 <=1.2 mg/dL [facility] Bili Direct 0.4(H) <=0.3 mg/dL [facility] Alk Phos 142(H) 35 - 104 IU/L [facility] Comment:No reference range e stablished for patients <18 years old. ALT (SGPT) <5 <=33 IU/L [facility] AST(SGOT) 36 5 - 40 IU/L [facility] Blood 02/13/2024 9:06 AM CDT 02/13/2024 9:28 AM CDT Ernestine Toribio MD LABORATORY [facility] [address] [place] [address] * POC GLUCOSE (02/13/2024 6:07 AM CDT) POC Glucose 83 70 - 100 mg/dL [facility] POINT OF CARE Blood 02/13/2024 6:07 AM CDT Humphrey Rose MD LABORATORY Performing Organization Address City/[facility] Co de Phone Number [facility] POINT OF CARE [address] [place] [address], [place] * POC GLUCOSE (02/13/2024 12:05 AM CDT) POC Glucose 88 70 - 100 mg/dL [facility] POINT OF CARE Blood 02/13/2024 12:0 5 AM CDT Humphrey Rose MD LABORATORY Performing Organization Address City/[facility] Co de Phone Number [facility] POINT OF [facility] [address] [place] [address], * LACTATE (LACTIC ACID) (02/12/2024 8:15 PM CDT) Lactate 2.0 0.7 - 2.1 mmol/L [facility] Blood 02/12/2024 8:15 PM CDT 02/12/2024 8:36 PM CDT Narrative [facility] - 02/12/2024 8:41 PM CDT Send specimen on ice! Ernestine Toribio MD LABORATORY [facility] [address] [address] * (ABNORMAL) POC GLUCOSE (02/12/2024 5:56 PM CDT) POC Glucose 110(H) 70 - 100 mg/dL [facility] - POINT OF CARE Blood 02/12/2024 5:56 PM CDT Humphrey Rose MD LABORATORY [facility] POINT OF [address] [address], * LACTATE (LACTIC ACID) (02/12/2024 2:45 PM CDT) Pathologist [facility] Lactate 2.1 0.7 - 2.1 mmol/L [facility] Blood 02/12/2024 2:45 PM CDT 02/12/2024 3:00 PM CDT Narrative [facility] - 02/12/2024 3:05 PM CDT Send specimen on ice! Khloe Reyes PA-C LABORATORY [facility] [address] [address] * POC GLUCOSE (02/12/2024 12:49 PM CDT) POC Glucose 93 70 - 100 mg/dL [facility] POINT OF CARE Blood 02/12/2024 12:4 9 PM CDT Humphrey Rose MD LABORATORY [facility] POINT OF [address] [address], * (ABNORMAL) POC GLUCOSE (02/12/2024 12:20 PM CDT) POC Glucose 64(L) 70 - 100 mg/dL [facility] POINT OF CARE Blood 02/12/2024 12:2 0 PM CDT Humphrey Rose MD LABORATORY [facility]INT OF CARE [address] [place] [address], [place] * XR ABDOMEN 1 VIEW* (02/12/2024 [...] CDT) Lactate 1.6 0.7 - 2.1 mmol/L [facility] Blood 02/12/2024 8:50 AM CDT 02/12/2024 9:13 AM CDT Narrative [facility] - 02/12/2024 9:20 AM CDT Send specimen on ice! Khloe Reyes PA-C LABORATORY [facility] [address] [place] [address] * (ABNORMAL) CBC WITH PLATELET (02/12/2024 8:50 AM CDT) WBC 5.15 4.00 - 10.00 k/cmm [facility] RBC 3.11(L) 3.90 - 5.20 m/cmm [facility] Hgb 9.4(L) 11.5 - 15.7 g/dL [facility] Hematocrit 29.4(L) 34.0 - 45.0 % [facility] MCV 94.5 80.0 - 100.0 fL [facility] MCH 30.2 25.0 - 32.0 pg [facility] MCHC 32.0 31.0 - 36.0 g/dL [facility] RDW 15.5(H) 11.5 - 14.5 % [facility] Plt 199 150 - 400 k/cmm [facility] MPV 9.7 6.5 - 12.5 fL [facility] Blood 02/12/2024 8:50 AM CDT 02/12/2024 9:10 AM CDT Ernestine Toribio MD LABORATORY Performing Organization Address [facility] Co de Phone Number [address] [address] * (ABNORMAL) PROTHROMBIN (PT) & INR (02/12/2024 8:50 AM CDT) Pathologist [facility] PT 18.7(H) 9.0 - 12.5 sec [facility] INR 1.7(H) 0.8 - 1.1 [facility] Comment: Warfarin Therapeutic Range: Standard Intensity: 2.0 - 3.0 High Intensity: 2.5 - 3.5 Blood 02/12/2024 8:50 AM CDT 02/12/2024 9:10 AM CDT Ernestine Toribio MD LABORATORY Performing Organization Address [facility] Co de Phone Number [address] [address] * (ABNORMAL) PANEL HEPATIC FUNCTION (02/12/2024 8:50 AM CDT) Total Protein 6.7 6.4 - 8.3 g/dL [facility] Albumin 2.3(L) 3.8 - 5.1 g/dL [facility] Bili Total 0.9 <=1.2 mg/dL [facility] Bili Direct 0.4(H) <=0.3 mg/dL [facility] Alk Phos 131(H) 35 - 104 IU/L [facility] Comment:No reference range e stablished for patients <18 years old. ALT (SGPT) <5 <=33 IU/L [facility] AST(SGOT) 35 5 - 40 IU/L [facility] Blood 02/12/2024 8:50 AM CDT 02/12/2024 9:10 AM CDT Ernestine Toribio MD LABORATORY [facility] [address] [address] * (ABNORMAL) PANEL BASIC METABOLIC (BMP) (02/12/2024 8:50 AM CDT) Sodium 130(L) 135 - 148 mEq/L [facility] Potassium 4.1 3.5 - 5.3 mEq/L [facility] Chloride 97 92 - 108 mEq/L [facility] CO2 27 22 - 30 mEq/L [facility] AnGap 6(L) 8 - 16 mEq/L [facility] Glucose 78 70 - 100 mg/dL [facility] BUN 16 6 - 20 mg/dL [facility] Creatinine 0.56 0.50 - 1.00 mg/dL [facility] Calcium 7.9(L) 8.6 - 10.0 mg/dL [facility] eGFR (2020 CKD-EPI) 105 >=60 ml/min/1.7 3m2 [facility] Comment: The estimated glomerular filtration rate (eGFR) was calculated using the CKD-EPI 2020 creatinine equation, which does not include race as a factor. This equation is validated in individuals 18 years of age and older, and eGFR is normalized to a body surface area of 1.73m^2. Blood 02/12/2024 8:50 AM CDT 02/12/2024 9:10 AM CDT Ernestine Toribio MD LABORATORY [facility] [address] [address] * POC GLUCOSE (02/12/2024 6:52 AM CDT) POC Glucose 73 70 - 100 mg/dL [facility] POINT OF CARE Blood 02/12/2024 6:52 AM CDT Humphrey Rose MD LABORATORY Performing Organization Address City/[facility]/ZIP Co de Phone Number [facility] POINT OF [address] [address], * LACTATE (LACTIC ACID) (02/12/2024 2:54 AM CDT) Lactate 1.4 0.7 - 2.1 mmol/L [facility] Blood 02/12/2024 2:54 AM CDT 02/12/2024 3:08 AM CDT Narrative [facility] - 02/12/2024 3:12 AM CDT Send specimen on ice! Khloe Reyes PA-C LABORATORY Performing Organization Address [facility] Co de Phone Number [address] [address] * POC GLUCOSE (02/11/2024 10:43 PM CDT) POC Glucose 94 70 - 100 mg/dL [facility] POINT OF CARE Blood 02/11/2024 10:4 3 PM CDT Humphrey Rose MD LABORATORY Performing Organization Address City/[facility]/ZIP Co de Phone Number [facility] POINT OF [address] [address], * COLONOSCOPY-DIAGNOSTIC (02/11/2024 9:24 PM CDT) 02/11/2024 9:24 PM CDT Narrative [facility] - 02/11/2024 10:18 PM CDT Gastroenterology [...] bowel preparation was evaluated using the BBPS ([place] Bowel Preparation Scale) with scores of: Right [...] previous GI consult note. Lukas Lambert MD, [id number] 02/11/2024 10:16:48 PM Number of Addenda: 0 Note Initiated On: 02/11/2024 9:24 PM Lukas Lambert MD GI LAB Performing Organization Address [facility] Co de Phone Number [facility] * LACTATE (LACTIC ACID) (02/11/2024 8:51 PM CDT) Lactate 1.3 0.7 - 2.1 mmol/L [facility] Blood 02/11/2024 8:51 PM CDT 02/11/2024 8:57 PM CDT Narrative [facility] - 02/11/2024 9:00 PM CDT Send specimen on ice! Khloe Reyes PA-C LABORATORY Performing Organization Address [facility]/ZIP Co de Phone Number [facility] [address] [address] * LACTATE (LACTIC ACID) (02/11/2024 7:56 PM CDT) Lactate 1.5 0.7 - 2.1 mmol/L [facility] Blood 02/11/2024 7:56 PM CDT 02/11/2024 8:25 PM CDT Narrative [facility] - 02/11/2024 8:28 PM CDT Send specimen on ice! Ernestine Toribio MD LABORATORY [facility] [address] [place] [address] * CT ABDOMEN/PELVIS W/IV CON (02/11/2024 2:22 PM CDT) Anatomical Region Laterality Modality Abdomen, Pelvis Computed Tomogra phy 02/11/2024 2:23 PM CDT Impressions 02/11/2024 8:24 PM CDT IMPRESSION: 1.Increase in rectosigmoid colonic distention, with increased distal fecal contents. Mildly increased gaseous distention of the chronically dilated sigmoid colon. 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 2.Liver cirrhosis with splenomegaly and [...] junction measures 7.1 cm in diameter (series [id number], image 84), compared to 4.6 cm on [...] rectosigmoid junction measures 7.1 cm in diameter(series , image 84), compared to 4.6 cm on [...] Total Protein 6.3(L) 6.4 - 8.3 g/dL [facility] Albumin 2.3(L) 3.8 - 5.1 g/dL [facility] Bili Total 0.9 <=1.2 mg/dL [facility] Bili Direct 0.4(H) <=0.3 mg/dL [facility] Alk Phos 126(H) 35 - 104 IU/L [facility] Comment:No reference range e stablished for patients <18 years old. ALT (SGPT) <5 <=33 IU/L [facility] AST(SGOT) 34 5 - 40 IU/L [facility] Blood 02/11/2024 7:25 AM CDT 02/11/2024 8:01 AM CDT Ernestine Toribio MD LABORATORY [facility] [address] [address] * (ABNORMAL) PROTHROMBIN (PT) & INR (02/11/2024 7:25 AM CDT) PT 23.0(H) 9.0 - 12.5 sec [facility] INR 2.0(H) 0.8 - 1.1 [facility] Comment: Warfarin Therapeutic Range: Standard Intensity: 2.0 - 3.0 High Intensity: 2.5 - 3.5 Blood 02/11/2024 7:25 AM CDT 02/11/2024 8:01 AM CDT Ernestine Toribio MD LABORATORY Performing Organization Address City/[facility]/ZIP Co de Phone Number [facility] [address] [address] * (ABNORMAL) CBC WITH PLATELET (02/11/2024 7:25 AM CDT) Pathologist [facility] WBC 5.83 4.00 - 10.00 k/cmm [facility] RBC 2.94(L) 3.90 - 5.20 m/cmm [facility] Hgb 8.8(L) 11.5 - 15.7 g/dL [facility] Hematocrit 28.0(L) 34.0 - 45.0 % [facility] MCV 95.2 80.0 - 100.0 fL [facility] MCH 29.9 25.0 - 32.0 pg [facility] MCHC 31.4 31.0 - 36.0 g/dL [facility] RDW 15.3(H) 11.5 - 14.5 % [facility] Plt 197 150 - 400 k/cmm [facility] MPV 10.0 6.5 - 12.5 fL [facility] Blood 02/11/2024 7:25 AM CDT 02/11/2024 8:01 AM CDT Ernestine Toribio MD LABORATORY Performing Organization Address [facility] Co de Phone Number [facility] [address] [address] * (ABNORMAL) PANEL BASIC METABOLIC (BMP) (02/11/2024 7:25 AM CDT) CO2 28 22 - 30 mEq/L [facility] Glucose 84 70 - 100 mg/dL [facility] BUN 15 6 - 20 mg/dL [facility] Creatinine 0.56 0.50 - 1.00 mg/dL [facility] Calcium 7.6(L) 8.6 - 10.0 mg/dL [facility] Sodium 132(L) 135 - 148 mEq/L [facility] Potassium 4.2 3.5 - 5.3 mEq/L [facility] Chloride 98 92 - 108 mEq/L [facility] AnGap 6(L) 8 - 16 mEq/L [facility] eGFR (2020 CKD-EPI) 105 >=60 ml/min/1.7 3m2 [facility] Comment: The estimated glomerular filtration rate (eGFR) was calculated using the CKD-EPI 2020 creatinine equation, which does not include race as a factor. This equation is validated in individuals 18 years of age and older, and eGFR is normalized to a body surface area of 1.73m^2. Blood 02/11/2024 7:25 AM CDT 02/11/2024 8:01 AM CDT Ernestine Toribio MD LABORATORY Performing Organization Address City/[facility] Co de Phone Number [facility] [address] [address] * MAGNESIUM (02/11/2024 7:20 AM CDT) Pathologist [facility] Magnesium 2.0 1.6 - 2.6 mg/dL [facility] Blood 02/11/2024 7:20 AM CDT 02/11/2024 7:42 PM CDT Ernestine Toribio MD LABORATORY Performing Organization Address [facility] de Phone Number [facility] [address] [address] * PHOSPHORUS (02/11/2024 7:20 AM CDT) Pathologist [facility] Phosphorus 3.3 2.5 - 4.5 mg/dL [facility] Blood 02/11/2024 7:20 AM CDT 02/11/2024 7:42 PM CDT Ernestine Toribio MD LABORATORY Performing Organization Address [facility] Co de Phone Number [facility] [address] [address] * (ABNORMAL) PANEL HEPATIC FUNCTION (02/10/2024 7:06 AM CDT) Total Protein 6.6 6.4 - 8.3 g/dL [facility] Albumin 2.4(L) 3.8 - 5.1 g/dL [facility] Bili Total 1.0 <=1.2 mg/dL [facility] Bili Direct 0.4(H) <=0.3 mg/dL [facility] Alk Phos 132(H) 35 - 104 IU/L [facility] Comment:No reference range e stablished for patients <18 years old. ALT (SGPT) <5 <=33 IU/L [facility] AST(SGOT) 36 5 - 40 IU/L [facility] Blood 02/10/2024 7:06 AM CDT 02/10/2024 7:48 AM CDT Ernestine Toribio MD LABORATORY Performing Organization Address City/[facility] Co de Phone Number [facility] [address] [address] * (ABNORMAL) PROTHROMBIN (PT) & INR (02/10/2024 7:06 AM CDT) PT 28.4(H) 9.0 - 12.5 sec [facility] INR 2.5(H) 0.8 - 1.1 [facility] Comment: Warfarin Therapeutic Range: Standard Intensity: 2.0 - 3.0 High Intensity: 2.5 - 3.5 Blood 02/10/2024 7:06 AM CDT 02/10/2024 7:48 AM CDT Ernestine Toribio MD LABORATORY Performing Organization Address City/[facility]/ZIP Co de Phone Number [facility] [address] [address] * (ABNORMAL) CBC WITH PLATELET (02/10/2024 7:06 AM CDT) WBC 6.87 4.00 - 10.00 k/cmm [facility] RBC 3.11(L) 3.90 - 5.20 m/cmm [facility] Hgb 9.2(L) 11.5 - 15.7 g/dL [facility] Hematocrit 29.8(L) 34.0 - 45.0 % [facility] MCV 95.8 80.0 - 100.0 fL [facility] MCH 29.6 25.0 - 32.0 pg [facility] MCHC 30.9(L) 31.0 - 36.0 g/dL [facility] RDW 14.9(H) 11.5 - 14.5 % [facility] Plt 221 150 - 400 k/cmm [facility] MPV 10.1 6.5 - 12.5 fL [facility] Blood 02/10/2024 7:06 AM CDT 02/10/2024 7:48 AM CDT Ernestine Toribio MD LABORATORY Performing Organization Address [facility] Co de Phone Number [facility] [address] [address] * MAGNESIUM (02/10/2024 7:06 AM CDT) Magnesium 2.1 1.6 - 2.6 mg/dL [facility] Blood 02/10/2024 7:06 AM CDT 02/10/2024 7:48 AM CDT Ernestine Toribio MD LABORATORY Performing Organization Address [facility] de Phone Number [facility] [address] [address] * (ABNORMAL) PANEL BASIC METABOLIC (BMP) (02/10/2024 7:06 AM CDT) CO2 26 22 - 30 mEq/L [facility] Glucose 83 70 - 100 mg/dL [facility] BUN 14 6 - 20 mg/dL [facility] Creatinine 0.53 0.50 - 1.00 mg/dL [facility] Calcium 7.9(L) 8.6 - 10.0 mg/dL [facility] Sodium 132(L) 135 - 148 mEq/L [facility] Potassium 4.0 3.5 - 5.3 mEq/L [facility] Chloride 99 92 - 108 mEq/L [facility] AnGap 7(L) 8 - 16 mEq/L [facility] eGFR (2020 CKD-EPI) 106 >=60 ml/min/1.7 3m2 [facility] Comment: The estimated glomerular filtration rate (eGFR) was calculated using the CKD-EPI 2020 creatinine equation, which does not include race as a factor. This equation is validated in individuals 18 years of age and older, and eGFR is normalized to a body surface area of 1.73m^2. Blood 02/10/2024 7:06 AM CDT 02/10/2024 7:48 AM CDT Ernestine Toribio MD LABORATORY Performing Organization Address [place]/[facility] [place] [address] * VITAMIN D (25-OH) (02/10/2024 7:06 AM CDT) Vitamin D Total 25 Hydroxy 66 21 - 70 ng/mL [facility] Comment: Result Interpretation: <=20 ng/mL ?? Vitamin D Deficient 21-29 ng/mL ??Vitamin D Insufficient Blood 02/10/2024 7:06 AM CDT 02/10/2024 7:48 AM CDT Ileana Blanco APRN, CNP LABORATORY Performing Organization Address [facility] [place] [address] * POC GLUCOSE (02/10/2024 6:15 AM CDT) POC Glucose 91 70 - 100 mg/dL [facility] POINT OF CARE Blood 02/10/2024 6:15 AM CDT Humphrey Rose MD LABORATORY Performing Organization Address City/[facility]/ZIP Co de Phone Number [facility] POINT OF CARE [address] [place] [address], * POC GLUCOSE (02/09/2024 11:04 PM CDT) POC Glucose 90 70 - 100 mg/dL [facility] POINT OF CARE Blood 02/09/2024 11:0 4 PM CDT Humphrey Rose MD LABORATORY Performing Organization Address City/[facility]/ZIP Co de Phone Number [facility] POINT OF CARE [address] [place] [address], [place] * POC GLUCOSE (02/09/2024 6:42 AM CDT) POC Glucose 85 70 - 100 mg/dL [facility] POINT OF [facility] Blood 02/09/2024 6:42 AM CDT Humphrey Rose MD LABORATORY Performing Organization Address City/[facility] Co de Phone Number [facility] POINT OF CARE [address] [place] [address], [place] * POC GLUCOSE (02/08/2024 11:51 PM CDT) POC Glucose 94 70 - 100 mg/dL [facility] POINT OF [facility] Blood 02/08/2024 11:5 1 PM CDT Humphrey Rose MD LABORATORY Performing Organization Address [facility] Co de Phone Number [facility] POINT OF [facility] [address] [place] [address], [place] * (ABNORMAL) POC GLUCOSE (02/08/2024 5:58 PM CDT) POC Glucose 135(H) 70 - 100 mg/dL [facility] POINT OF [facility] Blood 02/08/2024 5:58 PM CDT Humphrey Rose MD LABORATORY Performing Organization Address City/[facility] Co de Phone Number [facility] POINT OF [facility] [address] [place] [address], [place] * POC GLUCOSE (02/08/2024 12:30 PM CDT) POC Glucose 82 70 - 100 mg/dL [facility] POINT [facility] Blood 02/08/2024 12:3 0 PM CDT Humphrey Rose MD LABORATORY [facility] POINT [facility] CARE [address] [place] [address], [place] * IR PARACENTESIS (02/08/2024 11:45 AM [...] to verify the correct patient, procedure, equipment, clerical support and site/side marked as required. Initial [...] CDT) PT 29.3(H) 9.0 - 12.5 sec [facility] INR 2.6(H) 0.8 - 1.1 [facility] Comment: Warfarin Therapeutic Range: Standard Intensity: 2.0 - 3.0 High Intensity: 2.5 - 3.5 Blood 02/08/2024 8:19 AM CDT 02/08/2024 8:35 AM CDT Autumn Jerome MD LABORATORY [facility] [address] [address] * (ABNORMAL) PANEL HEPATIC FUNCTION (02/08/2024 8:19 AM CDT) Total Protein 6.1(L) 6.4 - 8.3 g/dL [facility] Albumin 2.5(L) 3.8 - 5.1 g/dL [facility] Bili Total 1.0 <=1.2 mg/dL [facility] Bili Direct 0.5(H) <=0.3 mg/dL [facility] Alk Phos 125(H) 35 - 104 IU/L [facility] Comment:No reference range e stablished for patients <18 years old. ALT (SGPT) 6 <=33 IU/L [facility] AST(SGOT) 30 5 - 40 IU/L [facility] Blood 02/08/2024 8:19 AM CDT 02/08/2024 8:35 AM CDT Autumn Jerome MD LABORATORY Performing Organization Address City/[facility]/ZIP Co de Phone Number [facility] [address] [address] * (ABNORMAL) PANEL BASIC METABOLIC (BMP) (02/08/2024 8:19 AM CDT) Sodium 134(L) 135 - 148 mEq/L [facility] Potassium 3.8 3.5 - 5.3 mEq/L [facility] CO2 29 22 - 30 mEq/L [facility] AnGap 5(L) 8 - 16 mEq/L [facility] Glucose 91 70 - 100 mg/dL [facility] BUN 9 6 - 20 mg/dL [facility] Creatinine 0.59 0.50 - 1.00 mg/dL [facility] Chloride 100 92 - 108 mEq/L [facility] Calcium 8.1(L) 8.6 - 10.0 mg/dL [facility] eGFR (2020 CKD-EPI) 104 >=60 ml/min/1.7 3m2 [facility] Comment: The estimated glomerular filtration rate (eGFR) was calculated using the CKD-EPI 2020 creatinine equation, which does not include race as a factor. This equation is validated in individuals 18 years of age and older, and eGFR is normalized to a body surface area of 1.73m^2. Blood 02/08/2024 8:19 AM CDT 02/08/2024 8:35 AM CDT Autumn Jerome MD LABORATORY Performing Organization Address City/[facility]/ZIP Co de Phone Number [facility] [address] [address] * (ABNORMAL) POC GLUCOSE (02/07/2024 6:41 PM CDT) POC Glucose 134(H) 70 - 100 mg/dL [facility]ARE Blood 02/07/2024 6:41 PM CDT Humphrey Rose MD LABORATORY Performing Organization Address City/[facility]/ZIP Co de Phone Number [facility] POINT OF [address] [address], [place] * POC GLUCOSE (02/07/2024 12:24 PM CDT) POC Glucose 99 70 - 100 mg/dL [facility] Blood 02/07/2024 12:2 4 PM CDT Humphrey Rose MD LABORATORY Performing Organization Address [facility] Co de Phone Number [address] [address], [place] * PHOSPHORUS (02/07/2024 6:05 AM CDT) Phosphorus 3.2 2.5 - 4.5 mg/dL [facility] Blood 02/07/2024 6:05 AM CDT 02/07/2024 7:28 AM CDT Autumn Jerome MD LABORATORY Performing Organization Address [facility] Co de Phone Number [facility] [address] [address] * MAGNESIUM (02/07/2024 6:05 AM CDT) Magnesium 2.0 1.6 - 2.6 mg/dL [facility] Blood 02/07/2024 6:05 AM CDT 02/07/2024 7:28 AM CDT Autumn Jerome MD LABORATORY Performing Organization Address [facility]/ZIP Co de Phone Number [facility] [address] [address] * (ABNORMAL) PANEL HEPATIC FUNCTION (02/07/2024 6:05 AM CDT) Total Protein 5.7(L) 6.4 - 8.3 g/dL [facility] Albumin 2.3(L) 3.8 - 5.1 g/dL [facility] Bili Total 0.9 <=1.2 mg/dL [facility] Bili Direct na <=0.3 mg/dL [facility] Comment:BILID = 0.4. Accurac y of result suspect due to hemolysis. Alk Phos 116(H) 35 - 104 IU/L [facility] Comment:No reference range e stablished for patients <18 years old. ALT (SGPT) 9 <=33 IU/L [facility] AST(SGOT) na 5 - 40 IU/L [facility] Comment:AST = 37. Accuracy o f result suspect due to hemolysis. Blood 02/07/2024 6:05 AM CDT 02/07/2024 7:28 AM CDT Autumn Jerome MD LABORATORY [facility] [address] [address] * (ABNORMAL) CBC WITH PLATELET (02/07/2024 6:05 AM CDT) WBC 9.53 4.00 - 10.00 k/cmm [facility] RBC 3.19(L) 3.90 - 5.20 m/cmm [facility] Hgb 9.5(L) 11.5 - 15.7 g/dL [facility] Hematocrit 29.8(L) 34.0 - 45.0 % [facility] MCV 93.4 80.0 - 100.0 fL [facility] MCH 29.8 25.0 - 32.0 pg [facility] MCHC 31.9 31.0 - 36.0 g/dL [facility] RDW 13.7 11.5 - 14.5 % [facility] Plt 149(L) 150 - 400 k/cmm [facility] MPV 11.1 6.5 - 12.5 fL [facility] NRBC 0.3(H) 0.0 - 0.0 /100WBC [facility] Blood 02/07/2024 6:05 AM CDT 02/07/2024 7:26 AM CDT Autumn Jerome MD LABORATORY Performing Organization Address [facility] Co de Phone Number [address] [address] * (ABNORMAL) PANEL BASIC METABOLIC (BMP) (02/07/2024 6:05 AM CDT) CO2 23 22 - 30 mEq/L [facility] AnGap 10 8 - 16 mEq/L [facility] Glucose 87 70 - 100 mg/dL [facility] Creatinine 0.58 0.50 - 1.00 mg/dL [facility] Potassium 5.2 3.5 - 5.3 mEq/L [facility] eGFR (2020 CKD-EPI) 104 >=60 ml/min/1.7 3m2 [facility] Comment: The estimated glomerular filtration rate (eGFR) was calculated using the CKD-EPI 2020 creatinine equation, which does not include race as a factor. This equation is validated in individuals 18 years of age and older, and eGFR is normalized to a body surface area of 1.73m^2. Sodium 135 135 - 148 mEq/L [facility] BUN 11 6 - 20 mg/dL [facility] Calcium 7.9(L) 8.6 - 10.0 mg/dL [facility] Chloride 102 92 - 108 mEq/L [facility] Blood 02/07/2024 6:05 AM CDT 02/07/2024 7:28 AM CDT Autumn Jerome MD LABORATORY Performing Organization Address [facility] Co de Phone Number [facility] [address] [address] * (ABNORMAL) POC GLUCOSE (02/06/2024 6:08 PM CDT) POC Glucose 124(H) 70 - 100 mg/dL [facility] Blood 02/06/2024 6:08 PM CDT Humphrey Rose MD LABORATORY Performing Organization Address City/[facility]/ZIP Co de Phone Number [facility] CARE [address] [place] [address], * POC GLUCOSE (02/06/2024 11:57 AM CDT) Pathologist [facility] POC Glucose 98 70 - 100 mg/dL [facility] POINT OF CARE Blood 02/06/2024 11:5 7 AM CDT Humphrey Rose MD LABORATORY Performing Organization Address City/[facility] Co de Phone Number [facility] POINT OF CARE [address] [place] [phone], * (ABNORMAL) PROTHROMBIN (PT) & INR (02/06/2024 7:10 AM CDT) [facility] PT 18.3(H) 9.0 - 12.5 sec [facility] INR 1.6(H) 0.8 - 1.1 [facility] Comment: Warfarin Therapeutic Range: Standard Intensity: 2.0 - 3.0 High Intensity: 2.5 - 3.5 Blood 02/06/2024 7:10 AM CDT 02/06/2024 7:28 AM CDT Autumn Jerome MD LABORATORY [facility] [address] [address] * (ABNORMAL) PANEL HEPATIC FUNCTION (02/06/2024 7:10 AM CDT) Pathologist [facility] Total Protein 5.6(L) 6.4 - 8.3 g/dL [facility] Albumin 2.3(L) 3.8 - 5.1 g/dL [facility] Bili Total 0.8 <=1.2 mg/dL [facility] Bili Direct 0.4(H) <=0.3 mg/dL [facility] Alk Phos 101 35 - 104 IU/L [facility] Comment:No reference range e stablished for patients <18 years old. ALT (SGPT) 12 <=33 IU/L [facility] AST(SGOT) 33 5 - 40 IU/L [facility] Blood 02/06/2024 7:10 AM CDT 02/06/2024 7:28 AM CDT Autumn Jerome MD LABORATORY Performing Organization Address [facility] Co de Phone Number [facility] [address] [address] * (ABNORMAL) PANEL BASIC METABOLIC (BMP) (02/06/2024 7:10 AM CDT) CO2 26 22 - 30 mEq/L [facility] AnGap 5(L) 8 - 16 mEq/L [facility] Glucose 105(H) 70 - 100 mg/dL [facility] Creatinine 0.61 0.50 - 1.00 mg/dL [facility] Sodium 135 135 - 148 mEq/L [facility] Potassium 4.4 3.5 - 5.3 mEq/L [facility] eGFR (2020 CKD-EPI) 103 >=60 ml/min/1.7 3m2 [facility] Comment: The estimated glomerular filtration rate (eGFR) was calculated using the CKD-EPI 2020 creatinine equation, which does not include race as a factor. This equation is validated in individuals 18 years of age and older, and eGFR is normalized to a body surface area of 1.73m^2. BUN 11 6 - 20 mg/dL [facility] Calcium 8.1(L) 8.6 - 10.0 mg/dL [facility] Chloride 104 92 - 108 mEq/L [facility] Blood 02/06/2024 7:10 AM CDT 02/06/2024 7:28 AM CDT Lia Mcclellan PA-C LABORATORY Performing Organization Address City/[facility] Co de Phone Number [facility] [address] [address] * (ABNORMAL) HEMOGLOBIN (02/06/2024 7:10 AM CDT) Hgb 8.8(L) 11.5 - 15.7 g/dL [facility] Blood 02/06/2024 7:10 AM CDT 02/06/2024 7:28 AM CDT Lia Mcclellan PA-C LABORATORY [facility] [address] [place] [address] * (ABNORMAL) POC GLUCOSE (02/06/2024 6:06 AM CDT) POC Glucose 119(H) 70 - 100 mg/dL [facility] POINT OF CARE Blood 02/06/2024 6:06 AM CDT Humphrey Rose MD LABORATORY Performing Organization Address City/[facility]/[place] [address], [place] * (ABNORMAL) POC GLUCOSE (02/06/2024 12:09 AM CDT) POC Glucose 102(H) 70 - 100 mg/dL [facility] Blood 02/06/2024 12:0 9 AM CDT Humphrey Rose MD LABORATORY Performing Organization Address [facility] Co de Phone Number [address] [address], [place] * (ABNORMAL) POC GLUCOSE (02/05/2024 3:57 PM CDT) POC Glucose 112(H) 70 - 100 mg/dL [facility] Blood 02/05/2024 3:57 PM CDT Humphrey Rose MD LABORATORY Performing Organization Address City/[facility] Co de Phone Number [facility] [address] [place] [phone], [place] * XR C ARM OVER 3 [...] by the resident/fellow. Reading Radiologist: Landon Mitchell Resident: Rehan Zapata Dayo Henning MD RAD XRAY * FRESH FROZEN PLASMA ADULT (BLOOD ADMIN) (02/05/2024 1:19 PM CDT) Unit Number [id number] [facility] Product Code [id number] [facility] Blood Expiration Date [id number] [facility] Blood Type 6200 [facility] Blood Type (TEXT) APOS [facility] Other 02/05/2024 1:19 PM CDT 02/05/2024 1:16 PM CDT Marcus Hanna MD BLOOD BANK ORDERABLE S (BLOOD ADMIN) Performing Organization Address [facility] Co de Phone Number [facility] [place] [phone] * POC GLUCOSE (02/05/2024 11:21 AM CDT) POC Glucose 92 70 - 100 mg/dL [facility] POINT OF [facility] Blood 02/05/2024 11:2 1 AM CDT Humphrey Rose MD LABORATORY Performing Organization Address [facility] Co de Phone Number [facility] CARE [address] [place] [address] * WOUND CULTURE:GRAM STAIN OPTIONAL (02/05/2024 10:00 AM CDT) Final Report Duplicate order. Patient account credited. [facility] Gram Stain Report Few PMN's seen. No organisms seen. [facility] Swab STRUCTURE OF RIGHT FOOT / Unknown 02/05/2024 10:00 AM CDT 02/05/2024 10:25 AM CDT Narrative [facility] - 02/05/2024 2:53 PM CDT Purulent drainage. Gram Stain please, aerobic, anaerobic Do you want a gram stain: Yes Autumn Jeorme MD LAB MICROBIOLOGY Performing Organization Address [facility] Co de Phone Number [facility] [address] [address] * (ABNORMAL) PROTHROMBIN (PT) & INR (02/05/2024 9:15 AM CDT) PT 16.9(H) 9.0 - 12.5 sec [facility] INR 1.5(H) 0.8 - 1.1 [facility] Comment: Warfarin Therapeutic Range: Standard Intensity: 2.0 - 3.0 High Intensity: 2.5 - 3.5 Blood 02/05/2024 9:15 AM CDT 02/05/2024 9:43 AM CDT Autumn Jerome MD LABORATORY Performing Organization Address [facility] de Phone Number [facility] [address] [address] * (ABNORMAL) PANEL HEPATIC FUNCTION (02/05/2024 9:15 AM CDT) Total Protein 5.5(L) 6.4 - 8.3 g/dL [facility] Albumin 2.2(L) 3.8 - 5.1 g/dL [facility] Bili Total 0.7 <=1.2 mg/dL [facility] Bili Direct 0.4(H) <=0.3 mg/dL [facility] Alk Phos 101 35 - 104 IU/L [facility] Comment:No reference range e stablished for patients <18 years old. ALT (SGPT) 13 <=33 IU/L [facility] AST(SGOT) 33 5 - 40 IU/L [facility] Blood 02/05/2024 9:15 AM CDT 02/05/2024 9:43 AM CDT Autumn Jerome MD LABORATORY Performing Organization Address [facility] de Phone Number [facility] [address] [address] * (ABNORMAL) CBC WITH PLATELET (02/05/2024 9:15 AM CDT) WBC 5.51 4.00 - 10.00 k/cmm [facility] RBC 3.11(L) 3.90 - 5.20 m/cmm [facility] Hgb 9.4(L) 11.5 - 15.7 g/dL [facility] Hematocrit 28.9(L) 34.0 - 45.0 % [facility] MCV 92.9 80.0 - 100.0 fL [facility] MCH 30.2 25.0 - 32.0 pg [facility] MCHC 32.5 31.0 - 36.0 g/dL [facility] RDW 13.4 11.5 - 14.5 % [facility] Plt 164 150 - 400 k/cmm [facility] MPV 10.2 6.5 - 12.5 fL [facility] Blood 02/05/2024 9:15 AM CDT 02/05/2024 9:43 AM CDT Autumn Jerome MD LABORATORY Performing Organization Address [facility] Co de Phone Number [facility] [address] [address] * (ABNORMAL) PANEL BASIC METABOLIC (BMP) (02/05/2024 9:15 AM CDT) CO2 25 22 - 30 mEq/L [facility] Glucose 112(H) 70 - 100 mg/dL [facility] BUN 12 6 - 20 mg/dL [facility] Creatinine 0.62 0.50 - 1.00 mg/dL [facility] Calcium 7.8(L) 8.6 - 10.0 mg/dL [facility] Sodium 134(L) 135 - 148 mEq/L [facility] Potassium 4.1 3.5 - 5.3 mEq/L [facility] Chloride 102 92 - 108 mEq/L [facility] AnGap 7(L) 8 - 16 mEq/L [facility] eGFR (2020 CKD-EPI) 103 >=60 ml/min/1.7 3m2 [facility] Comment: The estimated glomerular filtration rate (eGFR) was calculated using the CKD-EPI 2020 creatinine equation, which does not include race as a factor. This equation is validated in individuals 18 years of age and older, and eGFR is normalized to a body surface area of 1.73m^2. Blood 02/05/2024 9:15 AM CDT 02/05/2024 9:43 AM CDT Autumn Jerome MD LABORATORY Performing Organization Address City/[facility]/ZIP Co de Phone Number [facility] [address] [address] * (ABNORMAL) POC GLUCOSE (02/05/2024 6:02 AM CDT) POC Glucose 106(H) 70 - 100 mg/dL [facility] POINT OF CARE Blood 02/05/2024 6:02 AM CDT Humphrey Rose MD LABORATORY Performing Organization Address [facility] Co de Phone Number [facility] [place] [address], * (ABNORMAL) POC GLUCOSE (02/04/2024 11:58 PM CDT) POC Glucose 122(H) 70 - 100 mg/dL [facility] POINT [facility] CARE Blood 02/04/2024 11:5 8 PM CDT Humphrey Rose MD LABORATORY Performing Organization Address [facility] Co de Phone Number [facility] POINT OF [phone] [place] [address] * (ABNORMAL) ANAEROBE CULTURE (02/04/2024 10:44 PM CDT) Final Report Few Enterococcus faecalis isolated. No anaerobes isolated. (POS) [facility] Organism ENTEROCOCCUS FAECALIS(POS) [facility] Swab STRUCTURE OF RIGHT FOOT / Unknown 02/04/2024 10:44 PM CDT 02/05/2024 9:20 AM CDT Autumn Jerome MD LAB MICROBIOLOGY Performing Organization Address [facility] Co de Phone Number [facility] [address] [address] * (ABNORMAL) WOUND CULTURE:GRAM STAIN OPTIONAL (02/04/2024 10:44 PM CDT) Final Report Moderate Methicillin sensitive Staphylococcus aureus (MSSA) isolated. Methicillin susceptible by PBP2a. Rare Staphylococcus epidermidis isolated. (POS) [facility] Organism METHICILLIN SENSITIVE STAPHYLOCOCCUS AUREUS (MSSA)(POS) [facility] Organism STAPHYLOCOCCUS EPIDERMIDIS(POS) [facility] Gram Stain Report Few PMN's seen. No organisms seen. [facility] Swab STRUCTURE OF RIGHT FOOT / Unknown 02/04/2024 10:44 PM CDT 02/05/2024 9:20 AM CDT Narrative [facility] - 02/07/2024 9:52 AM CDT Do [...] Jerome MD LAB MICROBIOLOGY Performing Organization Address City/[facility] Co de Phone Number [address] [address] * HELD MICRO SPECIMEN (02/04/2024 10:44 PM CDT) Final Report Microbiology specimen received in lab with no orders. Add-on order must be placed within 24 hours. If no orders placed, specimen will be discarded. [facility] Swab STRUCTURE OF RIGHT FOOT / Unknown 02/04/2024 10:44 PM CDT 02/04/2024 10:45 PM CDT Narrative [facility] - 02/04/2024 10:46 PM CDT Epic message sent to Autumn Jerome at 02/04/2024 22:46:13 CDT by Solitario Mckinnon MLS. Autumn Jerome MD LAB MICROBIOLOGY Performing Organization Address [facility] Co de Phone Number [address] [address] * POC GLUCOSE (02/04/2024 9:50 PM CDT) POC Glucose 94 70 - 100 mg/dL [facility] POINT OF CARE Blood 02/04/2024 9:50 PM CDT Humphrey Rose MD LABORATORY Performing Organization Address City/[facility] Co de Phone Number [facility] [address] [place] [phone], * BLOOD AEROBIC/ANAEROBIC CULTURE (02/04/2024 6:44 PM CDT) Final Report No growth after 5 days. [facility] Blood (Peripheral) 02/04/2024 6:44 PM CDT 02/04/2024 10:14 PM CDT Autumn Jerome MD LAB MICROBIOLOGY Performing Organization Address [facility] Co de Phone Number [address] [address] * BLOOD AEROBIC/ANAEROBIC CULTURE (02/04/2024 6:44 PM CDT) Final Report No growth after 5 days. [facility] Blood (Peripheral) 02/04/2024 6:44 PM CDT 02/04/2024 10:14 PM CDT Autumn Jerome MD LAB MICROBIOLOGY Performing Organization Address [facility] Co de Phone Number [facility] [address] [address] * POTASSIUM (02/04/2024 1:17 PM CDT) Potassium 4.3 3.5 - 5.3 mEq/L [facility] Blood 02/04/2024 1:17 PM CDT 02/04/2024 1:33 PM CDT Autumn Jerome MD LABORATORY Performing Organization Address City/[facility]/ZIP Co de Phone Number [facility] [address] [address] * ANTIBODY SCREEN (02/04/2024 1:17 PM CDT) Pathologist [facility] Nicky Screen Negative [facility] Blood 02/04/2024 1:17 PM CDT 02/04/2024 1:34 PM CDT Solitario Ha APRN, CRNA LAB TRANSFUSI ON SERVICES Performing Organization Address City/[facility] Co de Phone Number [facility] [address] [address] * BLOOD TYPING-ABO/RH (02/04/2024 1:17 PM CDT) Pathologist [facility] ABORHG A POS [facility] Blood 02/04/2024 1:17 PM CDT 02/04/2024 1:34 PM CDT Solitario Ha APRN, CRNA LAB TRANSFUSI ON SERVICES Performing Organization Address [facility] Co de Phone Number [facility] [address] [address] * (ABNORMAL) PROTHROMBIN (PT) & INR (02/04/2024 6:40 AM CDT) [facility] PT 16.2(H) 9.0 - 12.5 sec [facility] INR 1.4(H) 0.8 - 1.1 [facility] Comment: Warfarin Therapeutic Range: Standard Intensity: 2.0 - 3.0 High Intensity: 2.5 - 3.5 Blood 02/04/2024 6:40 AM CDT 02/04/2024 8:27 AM CDT Autumn Jerome MD LABORATORY Performing Organization Address City/[facility]/ZIP Co de Phone Number [address] [address] * (ABNORMAL) PANEL HEPATIC FUNCTION (02/04/2024 6:40 AM CDT) [facility] Total Protein 5.5(L) 6.4 - 8.3 g/dL [facility] Albumin 2.2(L) 3.8 - 5.1 g/dL [facility] Bili Total 0.8 <=1.2 mg/dL [facility] Bili Direct 0.5(H) <=0.3 mg/dL [facility] Alk Phos 96 35 - 104 IU/L [facility] Comment:No reference range e stablished for patients <18 years old. ALT (SGPT) 15 <=33 IU/L [facility] AST(SGOT) 37 5 - 40 IU/L [facility] Blood 02/04/2024 6:40 AM CDT 02/04/2024 8:27 AM CDT Autumn Jerome MD LABORATORY Performing Organization Address [facility]/ZIP Co de Phone Number [facility] [address] [address] * (ABNORMAL) CBC WITH PLATELET (02/04/2024 6:40 AM CDT) Pathologist [facility] WBC 4.55 4.00 - 10.00 k/cmm [facility] RBC 3.03(L) 3.90 - 5.20 m/cmm [facility] Hgb 9.2(L) 11.5 - 15.7 g/dL [facility] Hematocrit 28.8(L) 34.0 - 45.0 % [facility] MCV 95.0 80.0 - 100.0 fL [facility] MCH 30.4 25.0 - 32.0 pg [facility] MCHC 31.9 31.0 - 36.0 g/dL [facility] RDW 13.6 11.5 - 14.5 % [facility] Plt 152 150 - 400 k/cmm [facility] MPV 10.9 6.5 - 12.5 fL [facility] Blood 02/04/2024 6:40 AM CDT 02/04/2024 8:27 AM CDT Autumn Jerome MD LABORATORY Performing Organization Address City/[facility]/ZIP Co de Phone Number [facility] [address] [address] * (ABNORMAL) PANEL BASIC METABOLIC (BMP) (02/04/2024 6:40 AM CDT) Pathologist [facility] CO2 26 22 - 30 mEq/L [facility] Glucose 76 70 - 100 mg/dL [facility] BUN 12 6 - 20 mg/dL [facility] Creatinine 0.64 0.50 - 1.00 mg/dL [facility] Calcium 7.9(L) 8.6 - 10.0 mg/dL [facility] Sodium 136 135 - 148 mEq/L [facility] Potassium 3.4(L) 3.5 - 5.3 mEq/L [facility] Chloride 102 92 - 108 mEq/L [facility] AnGap 8 8 - 16 mEq/L [facility] eGFR (2020 CKD-EPI) 102 >=60 ml/min/1.7 3m2 [facility] Comment: The estimated glomerular filtration rate (eGFR) was calculated using the CKD-EPI 2020 creatinine equation, which does not include race as a factor. This equation is validated in individuals 18 years of age and older, and eGFR is normalized to a body surface area of 1.73m^2. Blood 02/04/2024 6:40 AM CDT 02/04/2024 8:27 AM CDT Autumn Jerome MD LABORATORY [facility] [address] [place] [address] * (ABNORMAL) BLOOD AEROBIC/ANAEROBIC CULTURE (02/03/2024 12:13 PM CDT) Pathologist [facility] Final Report Positive Blood Culture Gram stain result called to and read back by: Dr. Autumn Jerome with [facility] [place] at 02/04/2024 14:23:58 by Leidy Mayer MLS[place] SM. Bacillus species not anthracis isolated from aerobic bottle only. Organism identified 02/05/2024 11:47:27 No susceptibility done. Plates held one week. (POS) [facility] Organism BACILLUS SPECIES NOT ANTHRACIS(POS) [facility] Blood (Peripheral) 02/03/2024 12:13 PM CDT 02/03/2024 1:03 PM CDT Autumn Jerome MD LAB MICROBIOLOGY Performing Organization Address [facility] Co de Phone Number [facility] [address] [address] * BLOOD AEROBIC/ANAEROBIC CULTURE (02/03/2024 12:06 PM CDT) Final Report No growth after 5 days. [facility] Blood (Peripheral) 02/03/2024 12:06 PM CDT 02/03/2024 1:03 PM CDT Autumn Jerome MD LAB MICROBIOLOGY Performing Organization Address [facility] Co de Phone Number [facility] [address] [address] * (ABNORMAL) PROTHROMBIN (PT) & INR (02/03/2024 8:03 AM CDT) Pathologist [facility] PT 19.8(H) 9.0 - 12.5 sec [facility] INR 1.8(H) 0.8 - 1.1 [facility] Comment: Warfarin Therapeutic Range: Standard Intensity: 2.0 - 3.0 High Intensity: 2.5 - 3.5 Blood 02/03/2024 8:03 AM CDT 02/03/2024 8:48 AM CDT Enedina Austin MD LABORATORY Performing Organization Address [facility] Co de Phone Number [facility] [address] [address] * (ABNORMAL) PANEL HEPATIC FUNCTION (02/03/2024 8:03 AM CDT) Total Protein 5.5(L) 6.4 - 8.3 g/dL [facility] Albumin 2.2(L) 3.8 - 5.1 g/dL [facility] Bili Total 0.9 <=1.2 mg/dL [facility] Bili Direct 0.5(H) <=0.3 mg/dL [facility] Alk Phos 98 35 - 104 IU/L [facility] Comment:No reference range e stablished for patients <18 years old. ALT (SGPT) 16 <=33 IU/L [facility] AST(SGOT) 36 5 - 40 IU/L [facility] Blood 02/03/2024 8:03 AM CDT 02/03/2024 8:48 AM CDT Enedina Austin MD LABORATORY Performing Organization Address [facility] Co de Phone Number [facility] [address] [address] * (ABNORMAL) PANEL BASIC METABOLIC (BMP) (02/03/2024 8:03 AM CDT) [facility] CO2 25 22 - 30 mEq/L [facility] Glucose 95 70 - 100 mg/dL [facility] BUN 10 6 - 20 mg/dL [facility] Creatinine 0.70 0.50 - 1.00 mg/dL [facility] Calcium 7.5(L) 8.6 - 10.0 mg/dL [facility] Sodium 133(L) 135 - 148 mEq/L [facility] Potassium 3.4(L) 3.5 - 5.3 mEq/L [facility] Chloride 100 92 - 108 mEq/L [facility] AnGap 8 8 - 16 mEq/L [facility] eGFR (2020 CKD-EPI) 100 >=60 ml/min/1.7 3m2 [facility] Comment: The estimated glomerular filtration rate (eGFR) was calculated using the CKD-EPI 2020 creatinine equation, which does not include race as a factor. This equation is validated in individuals 18 years of age and older, and eGFR is normalized to a body surface area of 1.73m^2. Blood 02/03/2024 8:03 AM CDT 02/03/2024 8:48 AM CDT Enedina Austin MD LABORATORY Performing Organization Address [facility] Co de Phone Number [facility] [address] [address] * (ABNORMAL) CBC WITH PLTS/AUTO DIFF (02/03/2024 8:03 AM CDT) WBC 5.74 4.00 - 10.00 k/cmm [facility] RBC 3.08(L) 3.90 - 5.20 m/cmm [facility] Hgb 9.4(L) 11.5 - 15.7 g/dL [facility] Hematocrit 28.1(L) 34.0 - 45.0 % [facility] MCV 91.2 80.0 - 100.0 fL [facility] MCH 30.5 25.0 - 32.0 pg [facility] MCHC 33.5 31.0 - 36.0 g/dL [facility] RDW 13.6 11.5 - 14.5 % [facility] Plt 155 150 - 400 k/cmm [facility] MPV 10.6 6.5 - 12.5 fL [facility] Automated Abs Neutrophil 4.49 1.70 - 6.50 k/cmm [facility] Comment:Preliminary ANC, Fin al Result to Follow Abs Immature Granulocyte 0.02 0.00 - 0.09 k/cmm [facility] Comment:The Immature Granulo cyte Absolute count contains metamyelocytes and myelocytes. Abs Neutrophil 4.49 1.70 - 6.50 k/cmm [facility] Abs Lymphocyte 0.69(L) 0.80 - 4.00 k/cmm [facility] Abs Monocyte 0.53 0.20 - 1.00 k/cmm [facility] Abs Eosinophil 0.00 0.00 - 0.60 k/cmm [facility] Abs Basophil 0.01 0.00 - 0.20 k/cmm [facility] Blood 02/03/2024 8:03 AM CDT 02/03/2024 8:48 AM CDT Enedina Austin MD LABORATORY [facility] [address] [place] [phone] * CT RIGHT FEMUR NO IV CONTRAST (02/02/2024 10:19 PM CDT) Anatomical Region Laterality Modality Lower Extremity Computed Tomogra phy 02/02/2024 10:1 4 PM CDT Addenda Addendum by Carter Ryees MD on 02/02/2024 10:29 PM CDT ADDENDUM: 3-D reconstructions were created by the phlebotomy technologist on the CT scanner and reviewed [...] by: Cooper Loaiza MD Authorized by: Humphrey Roes MD ?? Consent: ??Consent obtained: ??Verbal ??Consent given by: ??Patient ??Risks discussed: ??Bleeding, bowel perforation and infection ??Alternatives discussed: ??No treatment Buena protocol: ??Patient identity confirmed: ??Verbally with patient [...] ??Analgesia without sedation, anxiolysis and regional anesthesia Buena protocol: ??Procedure explained and questions answered to [...] vital sign checks, continuous pulse oximetry and traffic monitor specialist ??Intra-procedure events: respiratory depression ?Intra-procedure management: [...] MISCELLANEOUS BODY FLUID (02/02/2024 7:51 PM CDT) [facility] 1.3 [facility] Units BF g/dL [facility] Comment:The reference interv al(s) and other method performance specifications have not been established for this body fluid. The test result must be integrated into the clinical context for interpretation. Fluid 02/02/2024 7:51 PM CDT 02/02/2024 8:11 PM CDT Narrative [facility] - 02/02/2024 9:01 PM CDT fluid: Peritoneal Test: TP Humphrey Rose MD LABORATORY Performing Organization Address [facility]/ZIP Co de Phone Number [facility] [address] [address] * BODY FLUID CULTURE:INCLUDES GRAM STAIN (02/02/2024 7:51 PM CDT) Final Report No growth. [facility] Gram Stain Report PMN's seen. No organisms seen. [facility] Peritoneal Fluid PERITONEUM (SEROUS MEMBRANE) STRUCTURE / Unknown 02/02/2024 7:51 PM CDT 02/02/2024 8:04 PM CDT Humphrey Rose MD LAB MICROBIOLO GY Performing Organization Address [facility]/ZIP Co de Phone Number [facility] [address] [address] * BODY FLUID CELL COUNT/DIFF (02/02/2024 7:51 PM CDT) Fluid Type PT Peritoneal [facility] Comment:Normal reference ran ges have not been determined; clinical correlation is recommended. Volume PT Fluid 40 mL [facility] Appearance PT Hazy [facility] Color bf Yellow [facility] Rbc PT Fluid <1,000 cells/ul [facility] Nuc Ct PT Fluid 93 cells/ul [facility] Neutrophil PT Fluid 2 % [facility] Lymphocytes PT Fluid 19 % [facility] Basophil PT Fluid 1 % [facility] MONO/MACS FL 53 % [facility] Other PT Fluid 25 % [facility] Comment:Others are mesotheli al cells. Peritoneal Fluid 02/02/2024 7:51 PM CDT 02/02/2024 7:57 PM CDT Humphrey Rose MD LABORATORY [facility] [address] [address] * CT ABDOMEN/PELVIS W/IV CON (02/02/2024 6:50 [...] (02/02/2024 5:15 PM CDT) Color YELLOW YELLOW [facility] Appearance CLOUDY(A) CLEAR [facility] Urine Glucose NEGATIVE NEGATIVE mg/dL [facility] Bili UA TRACE(A) NEGATIVE [facility] Ketones TRACE(A) NEGATIVE [facility] Specific [place] 1.024 1.003 - 1.030 [facility] Blood Ur LARGE(A) Neg-Trace [facility] PH Urine 6.0 5.0 - 7.0 [facility] Protein Ur 30(A) Neg-Trace [facility] Urobilinogen >=8(A) NORMAL EU/dL [facility] Nitrite Ur NEGATIVE NEGATIVE [facility] Leuk Est SMALL(A) Neg-Trace [facility] WBC Ur 6-10(A) 0 - 5 perHPF [facility] RBC Ur >20(A) 0 - 3 perHPF [facility] SQ EPITH 0-5 0 - 5 perHPF [facility] Bacteria UA PRESENT [facility] Comment:Presence of bacteria does not necessarily indicate a UTI. The presence of bacteria can indicate a non-clean catch urine specimen. Bacteria should be used in conjunction with other UA results and clinical presentation to assist in diagnosing an infection. Urinalysis Performed at: [facility] Urine 02/02/2024 5:15 PM CDT 02/02/2024 5:18 PM CDT Humphrey Rose MD LABORATORY [facility] [address] [place] [address] * (ABNORMAL) URINE CULTURE (02/02/2024 5:03 PM CDT) Urine Cult Greater than 100,000 organisms/ml Escherichia coli isolated.(POS) [facility] Organism ESCHERICHIA COLI(POS) [facility] Urine 02/02/2024 5:03 PM CDT 02/02/2024 [...] MD LAB MICROBIOLO GY Performing Organization Address [facility]/ZIP Co de Phone Number [facility] [address] [place] [phone] * PRECAUTIONARY TUBE (02/02/2024 5:00 PM CDT) Prec Tube Precautionary Blood Bank Specimen Received. [facility] Blood 02/02/2024 5:00 PM CDT 02/02/2024 5:11 PM CDT Raven Rock MD LAB TRANSFUSION SERV ICES [facility] [address] [place] [address] * LIPASE (02/02/2024 4:01 PM CDT) Lipase 13 13 - 60 IU/L [facility] Blood 02/02/2024 4:01 PM CDT 02/02/2024 7:02 PM CDT Humphrey Rose MD LABORATORY [facility] [address] [address] * (ABNORMAL) PANEL HEPATIC FUNCTION (02/02/2024 4:01 PM CDT) [facility] Total Protein 5.8(L) 6.4 - 8.3 g/dL [facility] Albumin 2.4(L) 3.8 - 5.1 g/dL [facility] Bili Total 1.1 <=1.2 mg/dL [facility] Bili Direct 0.5(H) <=0.3 mg/dL [facility] Alk Phos 107(H) 35 - 104 IU/L [facility] Comment:No reference range e stablished for patients <18 years old. ALT (SGPT) 19 <=33 IU/L [facility] AST(SGOT) 39 5 - 40 IU/L [facility] Blood 02/02/2024 4:01 PM CDT 02/02/2024 7:02 PM CDT Humphrey Rose MD LABORATORY [facility] [address] [address] * LACTATE (LACTIC ACID) (02/02/2024 4:01 PM CDT) [facility] Lactate 1.1 0.7 - 2.1 mmol/L [facility] Blood 02/02/2024 4:01 PM CDT 02/02/2024 4:15 PM CDT Narrative [facility] - 02/02/2024 4:15 PM CDT Send specimen on ice! Humphrey Rose MD LABORATORY Performing Organization Address [facility] Co de Phone Number [facility] [address] [address] * (ABNORMAL) PROTHROMBIN (PT) & INR (02/02/2024 4:01 PM CDT) Pathologist [facility] PT 18.0(H) 9.0 - 12.5 sec [facility] INR 1.6(H) 0.8 - 1.1 [facility] Comment: Warfarin Therapeutic Range: Standard Intensity: 2.0 - 3.0 High Intensity: 2.5 - 3.5 Blood 02/02/2024 4:01 PM CDT 02/02/2024 4:38 PM CDT Humphrey Rose MD LABORATORY Performing Organization Address [facility] Co de Phone Number [facility] [address] [address] * HS TROPONIN (02/02/2024 4:01 PM CDT) [facility] HS Troponin I <3 <=14 ng/L [facility] Blood 02/02/2024 4:01 PM CDT 02/02/2024 4:36 PM CDT Narrative [facility] - 02/02/2024 5:10 PM CDT If ordering as an add-on lab, you must call the lab. Humphrey Rose MD LABORATORY Performing Organization Address City/[facility]/ZIP Co de Phone Number [facility] [address] [address] * (ABNORMAL) CBC WITH PLTS/AUTO DIFF (02/02/2024 4:01 PM CDT) Pathologist [facility] WBC 7.34 4.00 - 10.00 k/cmm [facility] RBC 3.08(L) 3.90 - 5.20 m/cmm [facility] Hgb 9.3(L) 11.5 - 15.7 g/dL [facility] Hematocrit 28.5(L) 34.0 - 45.0 % [facility] MCV 92.5 80.0 - 100.0 fL [facility] MCH 30.2 25.0 - 32.0 pg [facility] MCHC 32.6 31.0 - 36.0 g/dL [facility] RDW 13.5 11.5 - 14.5 % [facility] Plt 176 150 - 400 k/cmm [facility] MPV 10.2 6.5 - 12.5 fL [facility] Automated Abs Neutrophil 5.98 1.70 - 6.50 k/cmm [facility] Comment:Preliminary ANC, Fin al Result to Follow Abs Immature Granulocyte 0.03 0.00 - 0.09 k/cmm [facility] Comment:The Immature Granulo cyte Absolute count contains metamyelocytes and myelocytes. Abs Neutrophil 5.98 1.70 - 6.50 k/cmm [facility] Abs Lymphocyte 0.80 0.80 - 4.00 k/cmm [facility] Abs Monocyte 0.52 0.20 - 1.00 k/cmm [facility] Abs Eosinophil 0.00 0.00 - 0.60 k/cmm [facility] Abs Basophil 0.01 0.00 - 0.20 k/cmm [facility] Blood 02/02/2024 4:01 PM CDT 02/02/2024 4:36 PM CDT Humphrey Rose MD LABORATORY [facility] [address] [address] * (ABNORMAL) ED CHEMISTRY LABS(NA,K,CL,CO2,GLU,CREAT,CA-IONIZED,ANION GAP) (02/02/2024 4:01 PM CDT) Sodium 135 135 - 148 mEq/L [facility] Chloride 100 92 - 108 mEq/L [facility] AnGap 9 8 - 16 mEq/L [facility] Glucose 105(H) 70 - 100 mg/dL [facility] ICA, Actual 4.21(L) 4.40 - 5.20 mg/dL [facility] ICA, pH Corrected 4.45 4.40 - 5.20 mg/dL [facility] Creatinine 0.72 0.50 - 1.00 mg/dL [facility] BICARB 26 22 - 26 mEq/L [facility] eGFR (2020 CKD-EPI) 96 >=60 ml/min/1.7 3m2 [facility] Comment: The estimated glomerular filtration rate (eGFR) was calculated using the CKD-EPI 2020 creatinine equation, which does not include race as a factor. This equation is validated in individuals 18 years of age and older, and eGFR is normalized to a body surface area of 1.73m^2. Potassium 3.5 3.5 - 5.3 mEq/L [facility] Blood 02/02/2024 4:01 PM CDT 02/02/2024 4:15 PM CDT Humphrey Rose MD LABORATORY Performing Organization Address City/[facility]/ZIP Co de Phone Number [facility] [address] [address] * GLYCOSYLATED HGB - A1C (02/02/2024 4:00 PM CDT) Hemoglobin A1C 4.4 4.0 - 5.6 % [facility] Comment: Increased risk for diabetes (prediabetes): 5.7-6.4% Diabetes >=6.5% In the absence of unequivocal hyperglycemia, diagnosis requires two abnormal test results (i.e. HbA1c and glucose) or two abnormal results from specimens collected at two different timepoints. The presence of some hemoglobin variants or red cell disorders may interfere with the measurement of hemoglobin A1c (HbA1c). Estimated Average Glucose 80 68 - 114 [facility] Comment: The estimated Average Glucose (eAG) was calculated using an equation derived from a study of 507 adults with type 1, type 2, or no diabetes. Minority populations were underrepresented and children were not included. The eAG is not equivalent to a fasting glucose concentration. Blood 02/02/2024 4:00 PM CDT 02/02/2024 11:05 PM CDT Enedina Austin MD LABORATORY Performing Organization Address City/[facility]/ZIP Co de Phone Number [facility] [address] [address] * ANTIBODY SCREEN (02/02/2024 4:00 PM CDT) Nicky Screen Negative [facility] Blood 02/02/2024 4:00 PM CDT 02/02/2024 10:16 PM CDT Ileana Howell APRN, CNP LAB TRANSFUSI ON SERVICES Performing Organization Address City/[facility] Co de Phone Number [facility] [address] [address] * BLOOD TYPING-ABO/RH (02/02/2024 4:00 PM CDT) Pathologist [facility] ABORHG A POS [facility] Blood 02/02/2024 4:00 PM CDT 02/02/2024 10:16 PM CDT Ileana Howell APRN, CNP LAB TRANSFUSI ON SERVICES Performing Organization Address [facility] Co de Phone Number [facility] [address] [address] * PTT (APTT) (02/02/2024 4:00 PM CDT) Pathologist [facility] APTT 33.0 25.0 - 37.0 sec [facility] Blood 02/02/2024 4:00 PM CDT 02/02/2024 5:57 PM CDT Enedina Austin MD LABORATORY Performing Organization Address [facility] Co de Phone Number [address] [address] * ED EKG (12-LEAD) (02/02/2024 3:48 PM CDT) 02/02/2024 3:48 PM CDT Impressions [facility] EKG ORDERS - 02/02/2024 3:48 PM CDT SINUS RHYTHM LOW QRS VOLTAGE IN EXTREMITY LEADS ??[QRS DEFLECTION < 0.5 mV IN LIMB LEADS] POSSIBLE ANTERIOR MYOCARDIAL INFARCTION , PROBABLY OLD [30 ms Q WAVE IN V3/V4, OR R < 0.2 mV IN V4] BORDERLINE ECG P-R Interval 184 ms QRS Interval 78 ms QT Interval 365 ms QTC Interval 414 ms P Valencia -12 QRS Valencia -1 T Wave Valencia -1 Narrative Procedure Note Lyndon Villanueva MD - 02/02/2024 IMPRESSION SINUS RHYTHM LOW QRS VOLTAGE IN EXTREMITY LEADS [QRS DEFLECTION < 0.5 mV IN LIMBLEADS] POSSIBLE ANTERIOR MYOCARDIAL INFARCTION , PROBABLY OLD [30 ms Q WAVE INV3/V4, OR R < 0.2 mV IN V4] BORDERLINE ECG P-R Interval 184 ms QRS Interval 78 ms QT Interval 365 ms QTC Interval 414 ms P Valencia -12 QRS Valencia -1 T Wave Valencia -1 Humphrey Rose MD EKG [facility] E[facility] ORDERS * ED US ABDOMINAL/GALLBLADDER [...] (CMS) Acute cystitis with hematuria Acute cystitis Sully syndrome Crohn's disease with complication, unspecified gastrointestinal tract location ([facility]) Imaging of gastrointestinal tract abnormal Nonspecific [...] Thu02/10/24 at 2000, Until Discontinued Given 02/28/2024 9:03 PM CDT 650 mg Given 02/28/2024 1:48 PM CDT 650 mg Given 02/28/2024 9:01 AM CDT 325 mg calcium (OS-ALICIA) tablet - elemental 500 mg 500 mg, Oral, BID, First dose on Thu02/09/24 at 2000, Until Discontinued Given 02/28/2024 9:05 PM CDT [...] on Thu02/04/24 at 2000, Until Discontinued Given 02/28/2024 9:06 PM CDT Given 02/26/2024 9:23 PM CDT Given 02/25/2024 7:45 PM CDT enoxaparin (LOVENOX) 40 mg/0.4 mL injection 40 mg 40 mg, Subcutaneous, DAILY, First dose on Thu02/21/24 at 1030, Until Discontinued Given 02/28/2024 9:00 AM CDT 40 mg Right Upper Arm Given 02/27/2024 7:54 AM CDT 40 mg Ri ght Upper Arm Given 02/26/2024 8:56 AM CDT 40 mg Ri ght Upper Arm fat emulsions (CLINOLIPID) 20 % infusion 249 mL 249 mL, Intravenous, at 20.8 mL/hr Administer over 12 Hours, Q24H, First dose (after last modification) on Thu24 at 2000, Until Discontinued Hang Lipids 02/28/2024 [...] dose on Thu02/08/24 at 2000, Until Discontinued Given 02/28/2024 9:11 [...] Line Flush, Per venous access protocol nystatin 535891 unit/g powder Topical, BID, First dose on [...] reorder) on 02/13/24 at 0730, Until Discontinued Given [...] on Thu02/03/24 at 0600, Until Discontinued Given 02/10/2024 1:21 PM CDT 325 mg Given 02/10/2024 8:27 AM CDT 325 mg Given 02/09/2024 8:00 PM CDT 325 mg albumin (human) (HUMAN ALBUMIN GRIFOLS) 25% injection 100 g 100 g, Intravenous, ONE TIME, 1 dose, On Ceci 02/18/24 at 1650 New Bag 02/18/2024 6:03 PM CDT 100 g albumin (human) (HUMAN ALBUMIN GRIFOLS) 25% injection 25 g 25 g, Intravenous, ONE TIME, 1 dose, On 02/20/24 at 0025 New Bag 02/20/2024 1:10 AM CDT 25 g albumin (human) (HUMAN ALBUMIN GRIFOLS) 25% injection 6.25 g 6.25 g, Intravenous, Q20 MIN PRN, Starting on 02/08/24 at 1114, Until Thu02/08/24 at 1147, Per Paracentesis protocol New Bag 02/08/2024 11:30 AM CDT 12.5 g New Bag 02/08/2024 11:22 AM CDT 12.5 g albumin (human) (HUMAN ALBUMIN GRIFOLS) 25% injection 6.25 g 6.25 g, Intravenous, Q20 MIN PRN, Starting on Thu02/16/24 at 1421, Until Thu02/22/24 at 1415, Per Paracentesis protocol New Bag 02/16/2024 2:55 PM CDT 6.25 g New Bag 02/16/2024 2:50 PM CDT 6.25 g New Bag 02/16/2024 2:47 PM CDT 6.25 g albumin (human) (HUMAN ALBUMIN GRIFOLS) 25% injection 6.25 g 6.25 g, Intravenous, Q20 MIN PRN, Starting on Thu02/19/24 at 1409, Until Thu02/19/24 at 1410, Per Paracentesis protocol New Bag 02/19/2024 2:37 PM CDT 6.25 g New Bag 02/19/2024 2:19 PM CDT 6.25 g New Bag 02/19/2024 2:18 PM CDT 6.25 g bisacodyl (DULCOLAX) suppository 10 mg 10 mg, Rectal, DAILY, First dose on Thu02/03/24 at 1520, Until Discontinued Given 02/04/2024 5:22 PM CDT 10 mg Given 02/03/2024 4:43 PM CDT 10 mg bisacodyl (DULCOLAX) suppository 10 mg 10 mg, Rectal, DAILY, First dose (after last modification) on Thu02/16/24 at 0800, Until Discontinued Given 02/23/2024 9:03 AM CDT 10 mg Given 02/22/2024 2:07 PM CDT 10 mg Given 02/20/2024 2:00 PM CDT 10 mg bisacodyl (DULCOLAX) suppository 10 mg 10 mg, Rectal, ONE TIME, 1 dose, On 02/20/24 at 1605 Given 02/20/2024 6:06 PM CDT 10 mg ceFAZolin (ANCEF) IVPB 2 g 2 g, Indication (Select One): Infection - Confirmed, SITE (Select all that apply): Bloodstream, Genitourinary, Cultures Ordered? Yes, Intravenous, Q 8H, 31 doses, First dose on Thu02/05/24 at 1730, Last dose on Thu02/15/24 at 2200 [facility] 02/15/2024 9:54 PM CDT 2 g 200 mL/hr 02/15/2024 2:18 PM CDT 2 g 200 mL/hr 02/15/2024 5:36 AM CDT 2 g 200 mL/hr cefTRIAXone (ROCEPHIN) 2 g in NaCl 0.9% 100 mL IVPB 2 g, Indication (Select One): Infection - Suspected, SITE (Select all that apply): Bloodstream, GI/Intra-abdominal, Genitourinary, Cultures Ordered? Yes, Intravenous, ONE TIME, 1 dose, On Thu02/02/24 at 1730 [facility] 02/02/2024 7:03 PM CDT 2 g 200 mL/hr cefTRIAXone (ROCEPHIN) 2 g in NaCl 0.9% 100 mL IVPB 2 g, Indication (Select One): Infection - Suspected, SITE (Select all that apply): Skin/Soft Tissue, Cultures Ordered? No, Intravenous, Q24H, First dose (after last modification) on Thu02/03/24 at 0800, Until Discontinued [facility] 02/05/2024 8:19 AM CDT 2 g 200 mL/hr 02/04/2024 7:58 AM CDT 2 g 200 mL/hr 02/03/2024 8:57 AM CDT 2 g 200 mL/hr CHOLEcalciferol (VITAMIN D3) tablet 1,000 UNITS 1,000 UNITS, Oral, DAILY, First dose on Thu02/09/24 at 1335, Until Discontinued Given 02/10/2024 8:27 AM CDT 1, 000 UNITS Given 02/09/2024 2:01 PM CDT 1,000 UNITS enoxaparin (LOVENOX) 40 mg/0.4 mL injection 40 mg 40 mg, Subcutaneous, DAILY, First dose on Thu02/06/24 at 0800, Until Discontinued Given 02/07/2024 8:57 AM CDT 40 mg Abdominal Tissue Given 02/06/2024 7:30 AM CDT 40 mg Ab dominal Tissue enoxaparin (LOVENOX) 40 mg/0.4 mL injection 40 mg 40 mg, Subcutaneous, DAILY, First dose on Thu02/09/24 at 0800, Until Discontinued Given 02/18/2024 9:29 AM CDT 40 mg Abdominal Tissue Given 02/17/2024 9:27 AM CDT 40 mg Ab dominal Tissue Given 02/16/2024 9:51 AM CDT 40 mg Ri ght Upper Arm fat emulsions (CLINOLIPID) 20 % infusion 240 mL 240 mL, Intravenous, at 10 mL/hr Administer over 24 Hours, Q24H, First dose on Thu02/26/24 at 2000, Until Discontinued Hang Lipids 02/27/2024 8:17 PM CDT 240 mL 10 mL/ hr furosemide (LASIX) tablet 20 mg 20 mg, Oral, DAILY, First dose on Thu02/07/24 at 1455, Until Discontinued Given 02/17/2024 9:28 AM CDT 20 mg Given 02/16/2024 9:51 AM CDT 20 mg Given 02/15/2024 8:44 AM CDT 20 mg furosemide (LASIX) tablet 40 mg 40 mg, Oral, DAILY, First dose (after last modification) on Thu02/18/24 at 0800, Until Discontinued Given 02/18/2024 9:30 AM CDT 40 mg heparin 5000 UNIT/0.5ML injection 5,000 UNITS 5,000 UNITS, Subcutaneous, Q 8H, First dose on Thu02/08/24 at 2200, Until Discontinued Given 02/08/2024 8:47 PM CDT 5,000 UNITS Right Upper Arm HYDROmorphone PF (DILAUDID) 1 mg/mL injection 0.2-0.4 mg 0.2-0.4 mg, IV Push, Q4H PRN, Starting on Thu02/11/24 at 1624, Until Thu02/12/24 at 1302, Severe Pain (Use Second) Given 02/12/2024 9:01 AM CDT 0.4 mg Given 02/12/2024 2:56 AM CDT 0.2 mg HYDROmorphone PF (DILAUDID) 1 mg/mL injection 0.4 mg 0.4 mg, IV Push, PACU PRN Q5MIN, 5 doses, Starting on Thu02/05/24 at 1517, Until Sat 24 at 1425, Severe Pain (Use First) Given [...] Given 02/02/2024 6:51 PM CDT 85 mL Le ft Arm iohexol (OMNIPAQUE) 350 mg/mL injection IV Push, RAD ONE TIME AUTO ACKNOWLEDGE, 1 dose, On Thu02/11/24 at 1425 Given 02/11/2024 2:21 PM CDT 80 mL Rig ht Arm iohexol (OMNIPAQUE) 350 mg/mL injection IV Push, RAD ONE TIME AUTO ACKNOWLEDGE, 1 dose, On Thu02/20/24 at 1910 Given 02/20/2024 7:06 PM CDT 80 mL lactated ringers infusion at 50 mL/hr, Intravenous, CONTINUOUS, Starting on Thu02/11/24 at 1940, Until Thu02/12/24 at 1302 Restarted 02/11/2024 11:44 PM CDT 50 mL/hr New Bag 02/11/2024 8:09 PM CDT 50 mL/hr lactated ringers infusion at 75 mL/hr, Intravenous, CONTINUOUS, Starting on Thu02/20/24 at 2145, Until Thu02/21/24 at 0956 New Bag 02/20/2024 11:07 PM CDT 75 mL/hr levothyroxine (SYNTHROID) 26 mcg in NaCl 0.9% IVPB 26 mcg, Intravenous, Q24H, Administer over 30 Minutes, First dose on Thu02/12/24 at 0805, Until Discontinued New Bag 02/12/2024 10:00 AM CDT 26 mcg 102.6 mL/hr levothyroxine (SYNTHROID) tablet 50 mcg 50 mcg, Oral, DAILY BEFORE AM MEAL, First dose on Thu02/03/24 at 0730, Until Discontinued Given 02/11/2024 6:46 AM CDT 50 mcg Given 02/10/2024 6:47 AM CDT 50 mcg Given 02/09/2024 6:45 AM CDT 50 mcg lidocaine 1% (PF) injection from kit 0.5-1 mL 0.5-1 mL, Intradermal, ONE TIME, 1 dose, On Thu02/27/24 at 1135 Given 02/27/2024 11:36 AM CDT 1 mL Othe r (comment) normal saline flush 0.9 % solution 10-30 mL 10-30 mL, IV Push, ONE TIME, 1 dose, On Thu02/27/24 at 1135 Given 02/27/2024 11:36 AM CDT 30 mL ondansetron (ZOFRAN) 4 mg/2 mL injection 8 mg 8 mg, IV Push, ONE TIME, 1 dose, On Thu02/02/24 at 2055 Given 02/02/2024 8:43 PM CDT 8 mg oxyCODONE (ROXICODONE) tablet 5 mg 5 mg, Oral, Q4H PRN, Starting on Thu02/20/24 at 1800, Until Thu02/21/24 at 1026, Moderate Pain (Use First), Severe Pain (Use First) Given 02/21/2024 6:10 AM CDT 5 mg Given 02/21/2024 12:57 AM CDT 5 mg Given 02/20/2024 9:01 PM CDT 5 mg oxyCODONE (ROXICODONE) tablet 5-10 mg 5-10 mg, Oral, Q4H PRN, Starting on Thu02/02/24 at 2254, Until Thu02/11/24 at 1630, Moderate Pain (Use First), Severe Pain (Use First), 5 mg for moderate pain (4-7), 10 for severe pain (7-10) Given 02/11/2024 2:41 PM CDT 10 mg Given 02/11/2024 10:47 AM CDT 10 mg Given 02/11/2024 6:59 AM CDT 10 mg oxyCODONE (ROXICODONE) tablet 5-10 mg 5-10 mg, Oral, Q4H PRN, Starting on Thu02/11/24 at 1630, Until Thu02/20/24 at 1606, Moderate Pain (Use First), Severe Pain (Use First) Given 02/20/2024 2:18 PM CDT 10 mg Given 02/20/2024 6:45 AM CDT 5 mg Given 02/19/2024 8:09 PM CDT 10 mg pantoprazole (PROTONIX) injection 40 mg 40 mg, IV Push, DAILY, Administer over 2 Minutes, First dose on Thu02/12/24 at 0800, Until Discontinued Given 02/12/2024 9:02 AM CDT 40 mg pantoprazole (PROTONIX) tablet 40 mg 40 mg, Oral, DAILY BEFORE AM MEAL, First dose on Thu02/03/24 at 0730, Until Discontinued Given 02/11/2024 6:46 AM CDT 40 mg Given 02/10/2024 6:47 AM CDT 40 mg Given 02/09/2024 6:45 AM CDT 40 mg phytonadione (VITAMIN K) 10 mg in NaCl 0.9% IVPB 10 mg, Intravenous, ONE TIME, Administer over 30 Minutes, On Thu02/11/24 at 2100 New Bag 02/11/2024 9:35 PM CDT 10 mg 102 mL/hr phytonadione (VITAMIN K) tablet 5 mg 5 mg, Oral, ONE TIME, 1 dose, On Thu02/02/24 at 2335 Given 02/03/2024 3:49 AM CDT 5 mg polyethylene glycol 3350 (MIRALAX;GLYCOLAX) packet 17 g 17 g, Oral, DAILY, First dose on Thu02/03/24 at 0800, Until Discontinued Given 02/10/2024 8:28 AM CDT 17 g Given 02/09/2024 7:46 AM CDT 17 g Given 02/08/2024 8:43 AM CDT 17 g potassium chloride (K-DUR) tablet 20 mEq 20 mEq, Oral, ONE TIME, 1 dose, On Thu02/03/24 at 1505 Given 02/03/2024 4:43 PM CDT 20 mEq potassium chloride (K-DUR) tablet 20 mEq 20 mEq, Oral, Once, 1 dose, On Thu02/23/24 at 1350 Given 02/23/2024 5:00 PM CDT 20 mEq potassium chloride (K-DUR) tablet 40 mEq 40 mEq, Oral, ONE TIME, 1 dose, On Thu02/25/24 at 0755 Given 02/25/2024 9:26 AM CDT 40 mEq potassium chloride (K-DINA) powder 40 mEq 40 mEq, Oral, ONE TIME, 1 dose, On Thu02/04/24 at 1035 Given 02/04/2024 11:03 AM CDT 40 mEq potassium chloride (K-DINA) powder 40 mEq 40 mEq, Oral, ONE TIME, 1 dose, On Thu02/26/24 at 1145 Given 02/26/2024 11:53 AM CDT 40 mEq potassium chloride IVPB 10 mEq 10 mEq, Intravenous, Q1H, Administer over 60 Minutes, First dose on Thu02/04/24 at 1100, Last dose on Thu02/04/24 at 1200 New Bag 02/04/2024 12:36 PM CDT 10 mE q New Bag 02/04/2024 11:03 AM CDT 10 mEq potassium chloride IVPB 10 mEq 10 mEq, Intravenous, Q1H, Administer over 60 Minutes, First dose on Thu02/25/24 at 0815, Last dose on Thu02/25/24 at 1015 New Bag 02/25/2024 10:55 AM CDT 10 m Eq New Bag 02/25/2024 9:15 AM CDT 10 mEq New Bag 02/25/2024 8:26 AM CDT 10 mEq potassium chloride IVPB 10 mEq 10 mEq, Intravenous, Q1H, Administer over 60 Minutes, First dose (after last reorder) on Thu02/26/24 at 1130, Last dose on Thu02/26/24 at 1330 New Bag 02/26/2024 2:38 PM CDT 10 mEq New Bag 02/26/2024 1:06 PM CDT 10 mEq New Bag 02/26/2024 11:30 AM CDT 10 mEq pramipexole (MIRAPEX) tablet 0.5 mg 0.5 mg, Oral, BID, First dose on Thu02/03/24 at 0800, Until Discontinued Given 02/10/2024 10:29 PM CDT 0.5 mg Given 02/10/2024 8:26 AM CDT 0.5 mg Given 02/09/2024 8:00 PM CDT 0.5 mg propofol (DIPRIVAN) 200 mg/20mL injection 30 mg 30 mg, IV Push, ONE TIME, 1 dose, On Thu02/02/24 at 2054 Given 02/02/2024 8:52 PM CDT 30 mg propofol (DIPRIVAN) 200 mg/20mL injection 70 mg 70 mg, IV Push, ONE TIME, 1 dose, On Thu02/02/24 at 2054 Given 02/02/2024 8:44 PM CDT 70 mg spironolactone (ALDACTONE) tablet 100 mg 100 mg, Oral, DAILY, First dose (after last modification) on Thu02/18/24 at 0800, Until Discontinued Given 02/18/2024 9:29 AM CDT 100 mg spironolactone (ALDACTONE) tablet 50 mg 50 mg, Oral, DAILY, First dose on Thu02/07/24 at 1455, Until Discontinued Given 02/16/2024 9:50 AM CDT 50 mg Given 02/15/2024 8:43 AM CDT 50 mg Given 02/14/2024 9:15 AM CDT 50 mg Standard Peripheral IV Access Parenteral Nutrition (CLINIMIX E 4.25/5) at 75 mL/hr, Peripheral, CONTINUOUS, Starting on Thu02/26/24 at 2000, Until Thu02/28/24 at 0944 Infusing 02/28/2024 6:00 AM CDT 75 mL/hr Infusing 02/28/2024 5:00 AM CDT 75 mL/hr Infusing 02/28/2024 4:00 AM CDT 75 mL/hr thiamine (VITAMIN B1) tablet 100 mg 100 mg, Oral, DAILY, First dose on Thu02/03/24 at 0800, Until Discontinued Given 02/27/2024 7:54 AM CDT 100 mg Given 02/26/2024 8:57 AM CDT 100 mg Given 02/25/2024 8:06 AM CDT 100 mg traZODone (DESYREL) tablet 100 mg 100 mg, Oral, BEDTIME, First dose on Thu02/03/24 at 2000, Until Discontinued Given 02/12/2024 7:50 PM CDT 100 mg Given 02/11/2024 8:08 PM CDT 100 mg Given 02/03/2024 8:42 PM CDT 100 mg [...] Laughlin RN)142 (Given - Provider: Stacy Laughlin RN)204 (Given - Provider: Gaston Buckley RN) 0902 (Given - Provider: Stacy Laughlin RN)1348 (Given - Provider: Stacy Laughlin RN)210 (Given - Provider: Marycruz Espinosa RN) 0800 (Due)1400 (Due)1999 (Due) citalopram (CeleXA) tablet 20 mg 20 mg, Oral, DAILY, First dose on Thu02/03/24 at 0800, Until Discontinued 0755 (Given - Provider: Stacy Laughlin RN) 0900 (Given - Provider: Stacy Laughlin RN) 08 (Due) clotrimazole (LOTRIMIN) 1% cream Apply to: abdominal skin folds For External Use Only., Topical, BID, First dose on Thu02/04/24 at 1999, Until Discontinued 802 (Not Given (removes Due [...] - Provider: Stacy Laughlin RN) 0800 (Due) fat emulsions (CLINOLIPID) 20 % infusion 240 mL (CANCELED) 240 mL, Intravenous, at 10 mL/hr Administer over 24 Hours, Q24H, First dose on Thu02/26/24 at 2000, Until Discontinued 2016 (Mirza Lipids - Provider: Gaston Buckley RN) 0954 (Stopped - Provider: Stacy Laughlin RN - Comment: Time automatically adjusted from order being discontinued) fat emulsions (CLINOLIPID) 20 % infusion 249 mL 249 mL, Intravenous, at 20.8 mL/hr Administer over 12 Hours, Q24H, First dose (after last modification) on Thu02/28/24 at 2000, Until Discontinued 2056 (Mirza Lipids - Provider: Marycruz Espinosa RN) 0857 [...] Stacy Laughlin RN)1348 (Given - Provider: Stacy Laughlni RN)2103 (Given - Provider: Marycruz Espinosa RN) 0800 (Due)1400 (Due)1999 (Due) hydrocerin cream Apply to dry skin., Topical, BID, First dose on 02/08/24 at 2000, Until Discontinued 0802 (Given - Provider: Stacy Laughlin RN)2048 (Given - Provider: Gaston Buckley RN) 0907 (Given - Provider: Stacy Laughlin RN)211 (Given - Provider: Marycruz Espinosa RN) 0800 [...] ONE TIME, 1 dose, On Thu02/27/24 at 7405 1136 (Given - Provider: Patricia Dumont RN [...] right upper arm with PICC placement) nystatin 368378 unit/g powder Topical, BID, First dose on [...] modification) on Thu02/10/24 at 2000, Until Discontinued 0753 (Given - Provider: Stacy [...] on Ceci 02/11/24 at 0920, Until Discontinued 0756 (Given - Provider: Stacy Laughlin RN) 09 (Given - Provider: Stacy Laughlin RN) 0800 (Due) pramipexole (MIRAPEX) tablet 1 mg 1 mg, Oral, BEDTIME, First dose on Ceci 02/11/24 at 2000, Until Discontinued 204 (Given - Provider: Gaston Buckley RN) 210 (Given - Provider: Marycruz Espinosa RN) 1999 [...] Starting on Thu02/28/24 at 1100, Until Discontinued 1203 (Dual Sign-Off [...]
--- OUTSIDE RECORDS SUMMARY | 2024-02-29 08:08 | XMS_ITS | Continuity of Care Document ---
Author Organization [facility] Address [address] [place] [address] Phone Care Team Providers Care Senior Application Security Consultant Name Role Phone Kay MESSER MD, Osvaldo Unavailable Unavailable Advance Directives Directive Yes / No Effective Date File Name No Information Encounters Encounter Description Practice Location Reason(s) For Visit Diagnoses Date Provider Providers Copied on Encounter [facility], [address], [place], [place], [id number], [place] tel:[phone] No Information 0 Kay Riley. [address], [place], [address], [place]. tel:[phone] Referring Provider: Osvaldo Julien, [address] [place], [place], [facility]. tel:[phone] Family History Family Member Type Diagnosis Age At Onset No Information Payers Payer name Insurance type Covered green party ID Authoriza tijamee(s) [employer] [id number] Social History Type Description Quantity Date Captured [...]
--- OUTSIDE RECORDS SUMMARY | 2024-02-29 08:08 | XMS_ITS | Clinical Summary ---
Author Organization [facility] s & [facility] Address [place], [place] [address] Care Team Providers Care Eyeglass Lens Grinder Name Role Phone Jacob Hernandez MD Unavailable [phone] Tiarra Campos MD Unavailable [phone] Verónica Barnes Primary Care Provider Nino Cadet MD Unavailable [phone] [facility], [place] Unavailable [phone] Mira Vázquez PharmD Unavailable [phone] Allergies Active Allergy Reactions Criticality Noted Date [...] with routine healing, subsequent encounter Inhale 1 [place] in the nostril(s) once daily. Alternating nostrils [...] x 1 syrgIndications:B 12 deficiency As directed. [facility]: [id number] 100 Each 09/11/20 23 Active citalopram (CELEXA) [...] AND AT TIME OF MRI NEEDED. HAVE DIRECTOR BEHAVIORAL HEALTH Active lidocaine 5 % topical patchIndications: Compression [...] 3 mL 2 05/15/20 23 024 Discontinued Active Problems Problem Noted Date Diagnosed Date [...] Care Team Description 02/05/2024 Home Care Visit [facility] [address] [place] [address] Dasha Hu COTA OT - MISSED VISIT 02/04/2024 Home Care Visit [facility] [address] [place] [address] Miah Sal, RN SN - OASIS TRANSFER 02/03/2024 5:00 AM CDT Home Care Visit [facility] [address] [place] [address] Soco Carmona, DIE BAKER DIE BAKER - MISSED VISIT 02/03/2024 Home Care Visit [facility] [address] [place] [address] Nikos Perez, PT CARE COORDINATION 02/02/2024 Orders Only [facility] Scanner 1 scan: (1-Ord) [facility], XR CHEST 1V, 02/02/2024 02/02/2024 Orders Only [facility] Scanner 1 scan: (1-Ord) [facility], XR FEMUR RT 2V, 02/02/2024 02/02/2024 Orders Only [facility] Scanner 1 scan: (1-Ord) [facility], XR KNEE RT 2V, 02/02/2024 02/02/2024 Home Care Visit [facility] [address] [place] [address] Dasha Hu COTA OT - MISSED VISIT 02/02/2024 Home Care Visit [facility] [address] [place] [address] Dasha Hu NAIR CARE COORDINATION 02/01/2024 2:00 PM CDT Home Care Visit [facility] [address] [place] [address] Nikos Perez, PT PT - MISSED VISIT 02/01/2024 7:30 AM CDT [facility] [address] [place] [address] Verónica Barnes PA Preoperative Exam (endoscopy) 02/01/2024 Refill [facility] [address] [place] [address] Verónica Barnes PA Refill Request (Carboxymethylcellu lose 0.5%, Hydrocortisone, Cyanocobalamin) 02/01/2024 Travel 01/28/2024 10:30 AM CDT Home Care Visit [facility] [address] [place] [address] Miah Sal, RN SN - HOME VISIT 01/28/2024 Home Care Visit [facility] [address] [place] [address], [place] [address] Cori Oneal, OT OT - REASSESSMENT 01/27/2024 8:45 AM CDT Home Care Visit [facility] [address] [place] [phone] Nikos Perez, PT PT - HOME VISIT 01/27/[address] [address] Verónica Barnes PA Lab (Clarity on orders) 01/27/2024 Travel 01/22/2024 Home Care Visit [facility] [address] [place] [address], [place] [address] Cori Oneal, OT CARE COORDINATION 01/21/2024 11:30 AM CDT Home Care Visit [facility] [address] [place] [address], [place] [address] Soco Carmona, DIE BAKER DIE BAKER - HOME VISIT 01/20/2024 12:00 PM CDT Home Care Visit [facility] [address] [place] [address] Cori Oneal, OT OT - MISSED VISIT 01/20/2024 9:15 AM CDT Home Care Visit [facility] [address] [place] [address], [place] [address] Nikos Perez, PT PT - HOME VISIT 01/20/2024 Home Care Visit [facility] [address] [place] [address] Cori Oneal, OT CARE COORDINATION 01/20/2024 Travel 01/18/2024 Home Care Visit [facility] [address] [place] [address] Cori Oneal, OT OT - MISSED VISIT 01/15/2024 10:00 AM CDT Home Care Visit [facility] [address] [place] [address], [place] [address] Miah Sal, RN SN - HOME VISIT 01/15/2024 8:45 AM CDT Home Care Visit [facility] [address] [place] [address], [place] [address] Nikos Perez, PT PT - HOME VISIT 01/15/2024 Home Care Visit [facility] [address] [place] [address], [place] [address] Cori Oneal, OT OT - MISSED VISIT 01/12/2024 9:00 AM CDT Home Care Visit [facility] [address] [place] [phone] Nikos Perez, PT PT - HOME VISIT 01/12/2024 Travel 01/11/2024 11:00 AM CDT Home Care Visit [place] [id number] [place] [address], [place] [address] Cori Oneal, OT OT - HOME VISIT 01/11/2024 Telephone [facility] [address] [place] [address] Verónica Barnes PA Prior Authorization (lidocaine 5 % topical patch Denied) 01/08/2024 12:00 PM CDT Home Care Visit [place] [id number] [place] [phone] Miah Sal, RN SN - HOME VISIT 01/08/2024 11:00 AM CDT Pharmacist Medication Management [facility] [address] [place] [address] Mira Vázquez, TiffanyD Pharmacist Medication Management (CMR follow-up - provider referral - polypharmacy) 01/08/2024 Travel 01/06/2024 2:00 PM CDT Ancillary Procedure [facility] [address] [facility] [place] [address] 01/06/2024 1:45 PM CDT Ancillary Procedure [facility] [address] [place] [address] 01/06/2024 1:00 PM CDT Office [facility] [address] [facility] [place] [address] Verónica Barnes PA Follow Up (Fell twice again, on and Thursday. Still having pain in R arm. / still has rash.) 01/06/2024 Telephone [facility] [place] [address] [address] Siva Jamil MD Referral (Neurology) 01/06/2024 Travel 01/05/2024 12:30 PM CDT Home Care Visit [facility] [address] [place] [address] Soco Carmona, DIE BAKER DIE BAKER - HOME VISIT 01/05/2024 Refill [facility] [address] [place] [address] Verónica Barnes PA Refill Request (Nystatin) 01/04/2024 1:00 PM CDT Home Care Visit [facility] [address] [place] [address] Ileana Tariq OT OT - INITIAL ASSESSMENT 01/04/2024 9:00 AM CDT Home Care Visit [facility] [address] [place] [address] Nikos Perez, PT PT - INITIAL ASSESSMENT 01/04/2024 Telephone [facility] [address] [place] [address] Nikos Perez, PT Home Care 01/04/2024 Travel 01/04/2024 Telephone [facility] [address] [place] [address] Verónica Barnes PA Follow Up 01/02/2024 4:00 AM CDT Home Care Visit [facility] [address] [place] [address] Mindy Tracy RN SN - MISSED VISIT 12/31/2023 Telephone [facility] [address] [place] [address] Esmer El MD Results 12/30/2023 11:30 AM CDT Ancillary Procedure [facility] [address] [place] [address] 12/30/2023 9:50 AM CDT Office [facility] [address] [place] [address] Verónica Barnes PA Follow Up (Recheck rash, swelling and legs); Fall (Fell asleep in wheelchair last night and fell out of chair, has pain in R upper arm, R armpit / rib area, R hip area. ) 12/30/2023 Travel 12/29/2023 10:00 AM CDT Home Care Visit [facility] [address] [place] [address] Susan Bolaños, RN CARE COORDINATION 12/29/2023 9:00 AM CDT Home Care Visit [facility] [address] [place] [address] Miah Sal RN SN - HOME VISIT 12/28/2023 1:30 AM CDT Home Care Visit [facility] [address] [place] [address] Susan Bolaños, RN SN - WOUND/OSTOMY CHART CONSULT 12/28/2023 Telephone [facility] [address] [place] [address] Verónica Barnes PA Home Care (Wound Orders) 12/28/2023 Telephone [facility] [address] [place] [phone] Rajwinder Paulino, undercover operator 12/28/2023 Plan of Care Documentation [facility] [address] [place] [address] 12/27/2023 8:00 AM CDT Home Care Visit [facility] [address] [place] [address] Rajwinder Paulino, RN SN - OASIS START OF CARE 12/25/2023 10:00 AM CDT Pharmacist Medication Management [facility] [address] [place] [address] Mira Vázquez PharmD Pharmacist Medication Management (CMR initial - provider referral - phone visit - antibiotic interaction concerns) 12/25/2023 Travel 12/24/2023 Refill [facility] [address] [place] [address] Verónica Barnes PA Refill Request (Furosemide) 12/24/2023 Patient Outreach [facility] Care Management - Advanced Care Team [address] [place] [address] Cortney Razo Medication Management (CMR PROVIDER REFERRAL - covered) 12/23/2023 Travel 12/21/2023 2:40 PM CDT Office [facility] [address] [place] [address] Astrid Hitchcock, DO Rash; Ankle Pain/problem (left ankle oozing) 12/21/2023 Travel 12/21/2023 Telephone [facility] [address] [place] [address] Verónica Barnes PA Appointment Request 12/17/2023 8:15 AM CDT Ancillary Procedure [facility] [address] [facility] [place] [address] 12/16/2023 11:00 AM CDT Office Visit [facility] [address] [facility] [address] [place] [address] Hans Lay MD Consult (cirrhosis and c.o abdominal bloating, constipation, diarrhea. patient reports having her last bevarage on oct 10 ) 12/16/2023 Travel 12/14/2023 11:40 AM CDT Office Visit [facility] [address] [place] [address] Maxx Dubois MD Rash 12/14/2023 E-Consult [facility] [address] [place] [address] Bridget Granados MD 12/14/2023 Refill [facility] [address] [place] [address] Verónica Barnes PA Refill Request (Acyclovir) 12/14/2023 Telephone [facility] [address] [place] [address] Verónica Barnes PA Prior Authorization (nystatin (MYCOSTATIN) cream Approved 12/14/23-10/04/24) 12/14/2023 Travel 12/11/2023 Refill [facility] [address] [place] [address] Verónica Barnes PA Refill Request (Acyclovir) 12/09/2023 Telephone [facility] [address] [place] [address] Verónica Barnes PA Questions 12/09/2023 Refill [facility] [address] [place] [address] Verónica Barnes PA Refill Request (FUROSEMIDE) 12/07/2023 9:30 AM BOARDING MACHINE OPERATOR Nurse/Clinic Staff Only [facility] [address] [place] [address] Wound Check (Abhay leg wraps) 12/07/2023 Refill [facility] [address] [place] [address] Verónica Barnes PA Refill Request (Acyclovir) 12/07/2023 Travel 12/04/2023 9:30 AM BOARDING MACHINE OPERATOR Nurse/Clinic Staff Only [facility] [address] [place] [address] 12/03/2023 7:30 AM BOARDING MACHINE OPERATOR Ancillary Procedure [facility] [address] [facility] [address] 12/03/2023 Refill [facility] [address] [place] [address] Verónica Barnes PA Refill Request (Lidocaine) 12/03/2023 Travel 12/02/2023 1:00 PM BOARDING MACHINE OPERATOR Nurse/Clinic Staff Only [facility] [address] [place] [address] Dressing Change (Bilateral legs/) 12/02/2023 11:00 AM BOARDING MACHINE OPERATOR Orders Only [facility] [address] [place] [address] 1 scan: (1-Ord) ECHO TTE COMPLETE WO CONTRAST ([id number]) 12/01/2023 1:15 PM BOARDING MACHINE OPERATOR Orders Only [facility] [address] [place] [address] Lab, [place] Lab; Outside Order (Tiarra Campos) 12/01/2023 10:10 AM BOARDING MACHINE OPERATOR [facility] [place] [address] [address] Verónica Barnes PA Derm Problem (Red itchy rash, blisters that are leaking x 3 days); Concerns (Can't move her legs at all anymore, this started after last PT visit) 12/01/2023 Travel from Last 3 Months Immunizations Name [...] Description 03/23/2024 1:00 PM CDT Office Visit [facility] [place] [facility] [address] [place] [address] Siva Jamil MD [address] [place] [address] Health Maintenance Due Date Last Done Comments [...] 09/02/2022, 09/06/2012 Medical Devices Implanted Type Area Bindery Cutter Operator Device Identifier Shelf Expiration Date Model / Serial / Lot M0.45 - [id number] Implanted:Qty: 1 on 05/29/2016 by Kane Donis DPM at [facility] Left: Toe 0.45 / / Description:0.45 kwire from tray [employer]lon Tritanium Tibial Component Implanted:Qty: 1 on 11/16/2017 by Shay Sanders MD at [facility] Left: Knee [employer] 08/10/2022 / / [id number] Triathlon Ps Femoral Implanted:Qty: 1 on 11/16/2017 by Shay Sanders MD at [facility] Left: Knee [employer] 06/03/2022 / / [id number] Triathlon X3 Tibial Bearing Insert Ps Implanted:Qty: 1 on 11/16/2017 by Shay Sanders MD at [facility] Left: Knee [employer] 06/02/2022 / / [id number] Tri[employer]lon Tritanium Asymmetric Patella Implanted:Qty: 1 on 11/16/2017 by Shay Sanders MD at [facility] Left: Knee [employer] 06/29/2022 / / [id number] Procedures Procedure Name Priority Date/Time Associated Diagnosis Comments SCAN-RADIOLOGY REPORT 02/02/2024 12:00 AM CDT SCAN-RADIOLOGY REPORT 02/02/2024 12:00 AM CDT SCAN-RADIOLOGY REPORT 02/02/2024 12:00 AM CDT CBC WITH AUTO DIFFERENTIAL Routine 02/01/2024 9:07 [...] ABDOMEN COMPLETE Routine 12/03/2023 8 :18 AM BOARDING MACHINE OPERATOR Weight loss Alcoholic cirrhosis of liver with ascites (HC) ECHO TTE COMPLETE WO CONTRAST Routine 12/02/2023 11:51 AM BOARDING MACHINE OPERATOR Newly recognized murmur COMP METABOLIC PANEL Routine 12/01/2023 11:58 AM BOARDING MACHINE OPERATOR Alcoholic cirrhosis of liver without ascites (HC) PROTIME-INR Routine 12/01/2023 11:58 AM BOARDING MACHINE OPERATOR Chronic liver disease HEPATIC FUNCTION PANEL Routine 12/01/2023 11:58 AM BOARDING MACHINE OPERATOR Chronic liver disease CBC W PLT NO DIFF Routine 12/01/2023 11: 58 AM BOARDING MACHINE OPERATOR Chronic liver disease AFP TUMOR MARKER SERUM Routine 12/01/2023 11:58 AM BOARDING MACHINE OPERATOR Chronic liver disease LIPID PANEL W REFLEX MEASURED LDL Routine 09/11/2023 9:11 AM BOARDING MACHINE OPERATOR Essential hypertension XR MAMMO BILAT SCREENING Routine 05/25/2023 9:38 AM CDT Visit for screening mammogram ANTI HCV Routine 09/09/2018 1:46 PM BOARDING MACHINE OPERATOR CIDP (chronic inflammatory demyelinating polyneuropathy) (HC) ANTI HIV 1/2 Routine 04/23/2016 12:08 PM CDT Angular cheilitis SCAN-COLONOSCOPY 09/07/2015 7:30 AM BOARDING MACHINE OPERATOR from Last 3 Months or Most Recently Relevant to Health Maintenance Results * SCAN-RADIOLOGY REPORT (02/02/2024 12:00 AM CDT) Only the most recent of3 resultswithin the time period is included. Anatomical Region Laterality Modality Other Scanner OTHER * (ABNORMAL) CBC WITH AUTO DIFFERENTIAL (02/01/2024 9:07 AM CDT) Only the most recent of3 resultswithin the time period is included. WHITE BLOOD COUNT 7.7 4.5 - 11.0 thou/cu mm 02/01/2024 9:18 AM CDT [facility] RED BLOOD COUNT 3.76(L) 4.00 - 5.20 mil/cu mm 02/01/2024 9:18 AM CDT [facility] HEMOGLOBIN 11.8(L) 12.0 - 16.0 g/dL 02/01/2024 9:18 AM CDT [facility] HEMATOCRIT 34.5 33.0 - 51.0 % 02/01/2024 9:18 AM CDT [facility] MCV 92 80 - 100 fL 02/01/2024 9:18 AM CDT [facility] MCH 31.4 26.0 - 34.0 pg 02/01/2024 9:18 AM CDT [facility] MCHC 34.2 32.0 - 36.0 g/dL 02/01/2024 9:18 AM CDT [facility] RDW 13.8 11.5 - 15.5 % 02/01/2024 9:18 AM CDT [facility] PLATELET COUNT 195 140 - 440 thou/cu mm 02/01/2024 9:18 AM CDT [facility] MPV 9.8 6.5 - 11.0 fL 02/01/2024 9:18 AM CDT [facility] % NEUT 73.3 % 02/01/2024 9:18 AM CDT [facility] % LYMPH 17.1 % 02/01/2024 9:18 AM CDT [facility] % MONO 8.9 % 02/01/2024 9:18 AM CDT [facility] % EOS 0.3 % 02/01/2024 9:18 AM CDT [facility] % BASO 0.4 % 02/01/2024 9:18 AM CDT [facility] ABSOLUTE NEUTROPHILS 5.6 1.7 - 7.0 thou/cu mm 02/01/2024 9:18 AM CDT [facility] ABSOLUTE LYMPHOCYTES 1.3 0.9 - 2.9 thou/cu mm 02/01/2024 9:18 AM CDT [facility] ABSOLUTE MONOCYTES 0.7 <0.9 thou/cu mm 02/01/2024 9:18 AM CDT [facility] ABSOLUTE EOSINOPHILS 0.0 <0.5 thou/cu mm 02/01/2024 9:18 AM CDT [facility] ABSOLUTE BASOPHILS 0.0 <0.3 thou/cu mm 02/01/2024 9:18 AM CDT [facility] Blood BLOOD SPECIMEN / Unknown Venipuncture / Unknown 02/01/2024 9:07 AM CDT 02/01/2024 9:08 AM CDT Verónica ENNIS HEMATOLOGY [facility] [address] [place] [address], * (ABNORMAL) COMP METABOLIC PANEL (02/01/2024 9:07 AM CDT) Only the most recent of2 resultswithin the time period is included. [facility] Signature SODIUM 134(L) 136 - 145 mmol/L 02/02/2024 5:01 AM [facility] POTASSIUM 3.5 3.5 - 5.1 mmol/L 02/02/2024 5:01 AM [facility] CHLORIDE 98 98 - 107 mmol/L 02/02/2024 5:01 AM [facility] CO2,TOTAL 26 22 - 29 mmol/L 02/02/2024 5:01 AM [facility] ANION GAP 10 5 - 18 02/02/2024 5:01 AM [facility] GLUCOSE 95 70 - 99 mg/dL 02/02/2024 5:01 AM [facility] CALCIUM 8.3(L) 8.6 - 10.0 mg/dL 02/02/2024 5:01 AM [facility] BUN 8 6 - 20 mg/dL 02/02/2024 5:01 AM [facility] CREATININE 0.63 0.50 - 0.90 mg/dL 02/02/2024 5:01 AM [facility] BUN/CREAT RATIO 13 10 - 20 5:01 AM [facility] eGFR >90 >90 mL/min/1.7 3m2 02/02/2024 5:01 AM [facility] Comment:As of 2021, eG FR is calculated by the CKD-EPI creatinine equation without race adjustment. ??eGFR can be influenced by muscle mass, exercise, and diet. ??The reported eGFR is an estimation only and is only applicable if the renal function is stable. ALBUMIN 2.8(L) 4.0 - 4.9 g/dL 02/02/2024 5:01 AM [facility] PROTEIN,TOTAL 6.3 6.0 - 8.0 g/dL 02/02/2024 5:01 AM CDT [facility] BILIRUBIN,TOTAL 1.4(H) 0.0 - 1.2 mg/dL 02/02/2024 5:01 AM CDT [facility] ALK PHOSPHATASE 121(H) 35 - 104 IU/L 02/02/2024 5:01 AM CDT [facility] ALT (SGPT) 24 10 - 35 IU/L 02/02/2024 5:01 AM CDT [facility] AST (SGOT) 41(H) 10 - 35 IU/L 02/02/2024 5:01 AM CDT [facility] Blood BLOOD SPECIMEN / Unknown Venipuncture / Unknown 02/01/2024 9:07 AM CDT 02/01/2024 9:08 AM CDT Verónica ENNIS CHEMISTRY [facility] [address] [address], * XR KNEE 2 VIEWS RIGHT (01/06/2024 [...] Patients: As a result of the s Act, medical imagingexams and procedure reports are [...] - 145 mmol/L 01/06/2024 10:12 PM CDT [facility] POTASSIUM 4.2 3.5 - 5.1 mmol/L 01/06/2024 10:12 PM CDT [facility] CHLORIDE 101 98 - 107 mmol/L 01/06/2024 10:12 PM CDT [facility] CO2,TOTAL 27 22 - 29 mmol/L 01/06/2024 10:12 PM CDT [facility] ANION GAP 8 5 - 18 01/06/2024 10:12 PM CDT [facility] GLUCOSE 77 70 - 99 mg/dL 01/06/2024 10:12 PM CDT [facility] CALCIUM 8.3(L) 8.6 - 10.0 mg/dL 01/06/2024 10:12 PM CDT [facility] BUN 12 6 - 20 mg/dL 01/06/2024 10:12 PM CDT [facility] CREATININE 0.64 0.50 - 0.90 mg/dL 01/06/2024 10:12 PM CDT [facility] BUN/CREAT RATIO 19 10 - 20 10:12 PM CDT [facility] eGFR >90 >90 mL/min/1.7 3m2 01/06/2024 10:12 PM CDT [facility] Comment:As of 2021, eG [...] 01/06/2024 1:49 PM CDT Verónica ENNIS CHEMISTRY Performing Organization Address City/[facility]/ZIP Co de Phone Number [facility] [address] [place] [id number], [place] * (ABNORMAL) HEPATIC FUNCTION PANEL (12/21/2023 4:25 PM CDT) Only the most recent of2 resultswithin the time period is included. ALBUMIN 2.8(L) 4.0 - 4.9 g/dL 12/22/2023 2:38 PM CDT [facility] PROTEIN,TOTAL 6.4 6.0 - 8.0 g/dL 12/22/2023 2:38 PM CDT [facility] BILIRUBIN,TOTAL 1.2 0.0 - 1.2 mg/dL 12/22/2023 2:38 PM CDT [facility] BILIRUBIN,DIRECT 0.6(H) 0.0 - 0.3 mg/dL 12/22/2023 2:38 PM CDT [facility] BILIRUBIN,INDIRE CT 0.6 0.2 - 0.8 mg/dL 12/22/2023 2:38 PM CDT [facility] ALK PHOSPHATASE 105(H) 35 - 104 IU/L 12/22/2023 2:38 PM CDT [facility] ALT (SGPT) 21 10 - 35 IU/L 12/22/2023 2:38 PM CDT [facility] AST (SGOT) 43(H) 10 - 35 IU/L 12/22/2023 2:38 PM CDT [facility] Blood BLOOD SPECIMEN / Unknown Venipuncture / Unknown 12/21/2023 4:25 PM CDT 12/21/2023 4:28 PM CDT Astrid Hitchcock DO CHEMISTRY Performing Organization Address City/[facility]/ZIP Co de Phone Number [facility] [address] [place] [id number], [place] * XR ABDOMEN 2 VIEW FLAT [...] * US ABDOMEN COMPLETE (12/03/2023 8:18 AM BOARDING MACHINE OPERATOR) Anatomical Region Laterality Modality Abdomen, LIVER, KIDNEYS, PANCREAS, GALLBLADDER, SPLEEN Ultrasound Impressions 12/03/2023 2:54 PM BOARDING MACHINE OPERATOR Cirrhotic liver with mild ascites. Gallbladder wall thickening without gallstones likely related to chronic liver disease. Splenomegaly. Dictated by Nikos Abraham MD @ 12/03/2023 2:13:42 PM Signed by: Nikos Abraham MD @12/03/2023 2:13:42 PM (Electronic Signature) Narrative 12/03/2023 2:54 PM BOARDING MACHINE OPERATOR CLINICAL HISTORY: Cirrhosis COMPARISON: 08/17/2023 TECHNIQUE: Real [...] TTE COMPLETE WO CONTRAST (12/02/2023 11:51 AM BOARDING MACHINE OPERATOR) AORTIC VALVE MEAN PG 5 mmHg EJECTION FRACTION 71 % LVEDD 4.7 cm EJECTION FRACTION 60 - 65% Anatomical Region Laterality Modality Ultrasound 12/02/2023 11:2 5 AM BOARDING MACHINE OPERATOR Narrative 12/02/2023 1:54 PM BOARDING MACHINE OPERATOR ECHOCARDIOGRAM CATHY RAYMOND ?Accession#: ?? [id number] : ?1965 58 years Study Date: ?? 12/02/2023 11:25:12 AM Gender: F ? BP: ? 112/78 mmHg Height: 173.00 cm ? BSA: ?1.98 m? ? ? Weight: 84.00 kg ?Tech: ? MSR ?Referring MD: VERÓNICA BARNES Site: ? [facility] [place] Location: Mobile OP Patient Location: [...] . This study was interpreted by an [facility] accredited facility. ??Final ?? Procedure Note Aamdo Rodríguez MD - 12/02/2023 ECHOCARDIOGRAM CATHY RAYMOND : 1965 58 years Study Date: 12/02/2023 11:25:12 AM Gender: F BP: 112/78 mmHg Height: 173.00 cm BSA: 1.98 m? ? ? Weight: 84.00 kg Tech: SUKI Referring MD: VERÓNICA BARNES Site: [facility] Reading Location: Mobile OP Patient Location: [...] . This study was interpreted by an [facility] accredited facility. Final Verónica ENNIS ECHO ORD * (ABNORMAL) CBC W PLT NO DIFF (12/01/2023 11:58 AM BOARDING MACHINE OPERATOR) WHITE BLOOD COUNT 6.2 4.5 - 11.0 thou/cu mm 12/01/2023 12:05 PM [facility] [facility] RED BLOOD COUNT 3.38(L) 4.00 - 5.20 mil/cu mm 12/01/2023 12:05 PM [facility] HEMOGLOBIN 11.0(L) 12.0 - 16.0 g/dL 12/01/2023 12:05 PM [facility] HEMATOCRIT 32.4(L) 33.0 - 51.0 % 12/01/2023 12:05 PM [facility] MCV 96 80 - 100 fL 12/01/2023 12:05 PM [facility] MCH 32.5 26.0 - 34.0 pg 12/01/2023 12:05 PM [facility] MCHC 34.0 32.0 - 36.0 g/dL 12/01/2023 12:05 PM [facility] RDW 14.1 11.5 - 15.5 % 12/01/2023 12:05 PM [facility] PLATELET COUNT 146 140 - 440 thou/cu mm 12/01/2023 12:05 PM [facility] MPV 11.1(H) 6.5 - 11.0 fL 12/01/2023 12:05 PM [facility] Blood BLOOD SPECIMEN / Unknown Venipuncture / Unknown 12/01/2023 11:58 AM BOARDING MACHINE OPERATOR 12/01/2023 12:00 PM BOARDING MACHINE OPERATOR Narrative [facility] - 12/01/2023 12:05 PM [facility] This testing was ordered by an outside [...] ordering provider, Tiarra Campos at fax number [phone], for that provider to inform and arrange appropriate follow up with the patient. Esperanza Brown MLT (ASCP).................... ??11/02/2023 ?? 4:02 PM Verónica ENNIS HEMATOLOGY [facility] [address] [place] [address], * (ABNORMAL) PROTIME-INR (12/01/2023 11:58 AM BOARDING MACHINE OPERATOR) INR 1.2 <1.3 12/01/2023 8:36 PM [facility] PROTIME 13.5(H) 10.3 - 12.3 sec 12/01/2023 8:36 PM [facility] Blood BLOOD SPECIMEN / Unknown Venipuncture / Unknown 12/01/2023 11:58 AM BOARDING MACHINE OPERATOR 12/01/2023 12:00 PM BOARDING MACHINE OPERATOR Narrative [facility] - 12/01/2023 8:36 PM BOARDING MACHINE OPERATOR ?Therapeutic Range 2.0-3.0 for most anticoagulated patients [...] U[facility]. Verónica ENNIS HEMATOLOGY Performing Organization Address [facility] Co de Phone Number [facility] [address] [place] [id number], [place] * AFP TUMOR MARKER SERUM (12/01/2023 11:58 AM BOARDING MACHINE OPERATOR) Pathologist [facility] AFP TUMOR MARKER,SERUM 5.0 <=8.3 ng/mL 12/01/2023 10:04 PM BOARDING MACHINE OPERATOR [facility] Blood BLOOD SPECIMEN / Unknown Venipuncture / Unknown 12/01/2023 11:58 AM BOARDING MACHINE OPERATOR 12/01/2023 12:00 PM BOARDING MACHINE OPERATOR Narrative [facility] - 12/01/2023 10:04 PM BOARDING MACHINE OPERATOR The test method changed on 10/07/2022. If [...] Verónica ENNIS SEND OUTS Performing Organization Address [facility] Co de Phone Number [facility] [address], [place] [address], [place] * LIPID PANEL W REFLEX MEASURED LDL (09/11/2023 9:11 AM BOARDING MACHINE OPERATOR) CHOLESTEROL,TOTAL 184 100 - 199 mg/dL 09/11/2023 4:35 PM BOARDING MACHINE OPERATOR [facility] Comment: Cholesterol, Total Reference Ranges Desirable <200 mg/dL Borderline 200-239 mg/dL High >=240 mg/dL TRIGLYCERIDES 144 <150 mg/dL 09/11/2023 4:35 PM BOARDING MACHINE OPERATOR [facility] HDL CHOLESTEROL 46 >40 mg/dL 4:35 PM BOARDING MACHINE OPERATOR [facility] NON-HDL CHOLESTEROL 138 <145 mg/dl 09/11/2023 4:35 PM BOARDING MACHINE OPERATOR [facility] CHOL/HDL RATIO 4.00 <4.50 09/11/2023 4:35 PM BOARDING MACHINE OPERATOR [facility] LDL CHOLESTEROL 109 <=130 mg/dL 09/11/2023 4:35 PM BOARDING MACHINE OPERATOR [facility] VLDL CHOLESTEROL 29 <=30 mg/dL 09/11/2023 4:35 PM BOARDING MACHINE OPERATOR [facility] PROVIDER ORDERED STATUS RANDOM 09/11/2023 4:35 PM BOARDING MACHINE OPERATOR [facility] Blood BLOOD SPECIMEN / Unknown Venipuncture / Unknown 09/11/2023 9:11 AM BOARDING MACHINE OPERATOR 09/11/2023 9:13 AM BOARDING MACHINE OPERATOR Verónica ENNIS CHEMISTRY [facility] [address] [place] [address], * XR MAMMO BILAT SCREENING (05/25/2023 9:38 [...] health care provider. XR MAMMO BILAT SCREENING [[id number]] CLINICAL HISTORY: ??This is an asymptomatic 57 y.o. patient. INDICATION FOR EXAM: Mammogram Screening. TECHNIQUE: CC & MLO views were obtained. ??This study was evaluated with the assistance of Computer-Aided Detection. COMPARISON FILMS: Yes 05/23/22 [facility] 04/23/21 [facility] FINDINGS: ??The breasts have scattered areas of fibroglandular density. ??No suspicious masses or microcalcifications. ??There are benign appearing calcifications. and Post biopsy changes of both breasts. Verónica Barnes PA MAMMO * ANTI HCV (09/09/2018 1:46 PM BOARDING MACHINE OPERATOR) Pathologist [facility] HEPATITIS C ANTIBODY Non-React velasquez Non-React velasquez 09/10/2018 2:37 PM BOARDING MACHINE OPERATOR [facility] Comment:Antibodies to HCV no t detected; does not exclude the possibility of exposure to HCV. Blood BLOOD SPECIMEN / Unknown Venipuncture / Unknown 09/09/2018 1:46 PM BOARDING MACHINE OPERATOR 09/09/2018 3:52 PM BOARDING MACHINE OPERATOR Nikos Ventura MD SEND OUTS [facility] [address] [place] [address], * ANTI HIV 1/2 (04/23/2016 12:08 PM CDT) Pathologist [facility] HIV-1/HIV-2 ANTIBODY Non-Reacti ve Non-Reacti ve 04/23/2016 6:03 PM CDT [facility] Blood BLOOD SPECIMEN / Unknown Venipuncture / Unknown 04/23/2016 12:08 PM CDT 04/23/2016 12:08 PM CDT Narrative [facility] - 04/23/2016 6:03 PM CDT HIV-1 p24 and HIV-1/HIV-2 Ab not detected Nikos Ventura MD SEND OUTS [facility] [address] [place] [address], [place] * SCAN-COLONOSCOPY (09/07/2015 7:30 AM BOARDING MACHINE OPERATOR) Narrative Transcriptions Jacob Shaikh MD - 09/07/2015 6:46 AM CST [facility] [address], [address], [place] [address] Patient Name: Cathy Raymond Gender: Female Exam Date: 09/07/2015 Visit Number: [id number] Age: 50 Years Date of : 1965 Attending MD: Jacob Shaikh MD Medical Record#: [id number] ----- Procedure: Colonoscopy Indications: Colorectal cancer screening [...] by: Jacob Shaikh MD 09/07/2015 cc: Radha Vetnura MD cc: Radha Alston MD Jacob Shaikh MD OTHER from Last 3 Months or Most Recently Relevant to Health Maintenance Advance Directives Documents on File Type Date Recorded Patient Grinder [employer] Expl anation Healthcare Directive 09/02/2021 9:12 AM [...] 11:58 AM 03/03/2010 7:10 PM Care Teams Eyeglass Lens Grinder Relationship Specialty Start Date End Date Verónica Barnes PA [address] [place] [id number] PCP - General Physician Line Assigner 11/30/20 Jacob Hernandez MD [address] [place] [address] Neurology 11/30/20 Tiarra Campos MD [address] [place] [address] Gastroenterology 11/30/20 Nino Cadet MD [address] [place] [address] Surgery - Orthopedics 11/30/20 [facility] [address] [place] [address] 12/23/23 Mira Vázquez, PharmD [address] [place] [address] [place] MELO [id number] Pharmacist Medication Management Pharmacology 12/25/23 12/24/26
--- OUTSIDE RECORDS SUMMARY | 2024-02-29 08:08 | XMS_ITS | Continuity of Care Document ---
Author Organization [facility] Address [address] [address] [place] [address] Phone Care Team Providers Care Balance Wheel Motion Inspector Name Role Phone Andres MESSER, Mayen Unavailable Unavailable Allergies, Adverse Reactions, Alerts Substance [...] Effective Dates (start - stop) Status Comments potassium chloride ER 20 mEq tablet,extended release take 1 tablet by oral route every day with food 20 MEQ - Active Aldactone 50 mg tablet take 1 tablet [...] every day into left ear Not Available May-11-2023 - Active NYSTATIN (unknown strength) apply by [...] 90 day supply request Procedures Procedure Date Established Level 4 Ugi Endo; W/bx /mx Offic/outpt E&m Estab Mod-hi 2 23 Offic/outpt E&m Estab Mod-ga 2 22 Ugi Endo; Dx W/wo Collec Specm 21 Colorectal Ca Screen Hi Risk I 21 Moderate sedation, initial 15 minutes Oc Telephone E&M III 21-30 Min MD WENDY Telephone E&M I 5-10 Min MD WENDY 021 Telephone E&M II 11-20 Min MD WENDY Offic/outpt E&m Estab Mod-hi 2 20 Offic/outpt E&m Estab Mod-ga 2 19 Ugi Endo; W/bx /mx Offic/outpt E&m Estab Mod-hi 2 19 Ugi Endo; Dx W/wo Collec Specm 19 cancelled appt Offic/outpt E&m [facility] Routine Serum Collection Bld Ct; Hg & Platelet Ct Autom 19 Prothrombin Time Alpha-fetoprotein; Serum Bilirubin; Direct Comp Metabolic Panel Colonoscopy Flex; W/remov Les- 15 Ugi Endo; Dx W/wo Collec Specm 15 Level Iv-surg Path Gross/micro 15 Offic/outpt E&m [facility] Mod-ga 2 15 Routine Serum Collection Bld Ct; Hg/pltlt Ct Auto/compl 15 Hepatic Function Panel Prothrombin Time Offic/outpt E&m [facility] Low-mod 4 Routine Serum Collection Bld Ct; Hg/pltlt Ct Auto/compl 14 Alpha-fetoprotein; Serum Bilirubin; Direct Comp Metabolic Panel Prothrombin Time Bld Ct; Hg/pltlt Ct Auto/compl 14 Alpha-fetoprotein; Serum Hepatic Function Panel Prothrombin Time Offic/outpt E&m [facility] Mod-ga 2 14 Routine Serum Collection Offic/outpt E&m [facility] 3 Routine Serum Collection Bld Ct; Hg/pltlt Ct Auto/compl 13 Alpha-fetoprotein; Serum Hepatic Function Panel Prothrombin Time Ugi Endo; Dx W/wo Collec Specm [address] Hg/pltlt Ct Auto/compl 13 Hepatic Function Panel Offic/outpt E&m [facility] Mod-ga 2 13 Routine Serum Collection Alpha-fetoprotein; Serum Offic/outpt E&m Estab Low-mod 2 Routine Serum Collection [id number] Bld Ct; [...] Providers Copied on Encounter [facility] [address] [address], [place], [place], [id number], tel:[phone] [facility] No Information 4 [facility]. [address], [id number], [place]. tel:[phone] Established Level 4 [facility] [place] [address] [address], [place], [place], [address], tel:[phone] [facility] GI Symptoms or Concerns (chief complaint) Alcoholic cirrhosis of liver without ascites 4 Andres Schmittahim. [address], [id number], [place]. tel:[phone] Referring Provider: Tiarra Campos MD, [address] [place] [address], [place], [address] . tel:[phone] [facility], [address] [address], [place], [address], [place] tel:[phone] [facility] Chronic liver disease 4 Andres Mayen. [address] [place] [address], [id number], [place]. tel:[phone] Referring Provider: Referral Self, USE FOR SELF REFERRALS. [facility], [address] [address], [place], [address], [place] tel:[phone] [facility] No Information 3 Justin Toribio. [address] [place] [address], [id number], [place]. tel:[phone] Referring Provider: Elissa ENNIS, [address] [place] [address], [address]. tel:[phone] [facility], [address] [address], [place], [address], [place] tel:[phone] [facility] No Information 3 Kaleb Kraft. [address] [place] [address], [id number], [place]. [phone] [facility] PA, [address] [address], [place], [address], [place] tel:[phone] [facility] No Information 3 Andres Mayen. [address] [place] [address], [id number], [place]. tel:[phone] Offic/outpt E&m Estab Mod-hi 2 [facility] PA, [address] [address], [place], [address], [place] tel:[phone] [facility] GI Symptoms or Concerns (chief complaint) Alcoholic cirrhosis of liver without ascites 3 Andres Mayen. [address]001 [facility], [address], [id number], [place]. tel:[phone] Referring Provider: Referral Self, USE FOR SELF REFERRALS. [facility] [place], [address] [address], [place], [address], [place] tel:[phone] [facility] No Information 3 Andres Mayen. [address] [facility], [address], [id number], [place]. tel:[phone] [facility] [place], [address] [address], [place], [address], [place] tel:[phone] [facility] Alcoholic cirrhosis of liver without ascites 3 Andres Mayen. [address] [place] [address], [id number], [place]. tel:[phone] Offic/outpt E&m Estab Mod-hi 2 [facility] [place], [address] [address], [place], [address], [place] tel:[phone] [facility] GI Symptoms or Concerns (chief complaint) Alcoholic cirrhosis of liver without ascitesLiver cirrhosis secondary to NASHUnspecifie d cirrhosis of liver 2 Andres Mayen. [address] [place] [address], [id number], [place]. tel:[phone] Referring Provider: Referral Self, USE FOR SELF REFERRALS. [facility] [place], [address] [address], [place], [address], [place] tel:[phone] [facility] No Information 2 Andres Mayen. [address] [facility], [address], [id number], [place]. tel:[phone] [facility] [place], [address] [address], [place], [address], [place] tel:[phone] [facility] No Information 1 Chandler Haney. [address]001 [facility], [address], [place], [place], [id number], [place]. tel:[phone] Referring Provider: Lyndon Arteaga MD, [address] [facility] [address], [place], [address] . tel:[phone] [facility] PA, [address] [address], [place], [address], [place] tel:[phone] [facility] No Information 1 Everett Leahy. [address] [facility], [address], [place], [place], [address], [place]. tel:[phone] Telephone E&M III 21-30 Min WENDY [facility] PA, [address] [address], [place], [address], [place] tel:[phone] [facility] GI Symptoms or Concerns (chief complaint) Cirrhosis of liver without ascites, unspecified hepatic cirrhosis type 1 Andres Mayen. [address] [facility], [address], [place], [place], [id number], [place]. tel:[phone] Referring Provider: Referral Self, USE FOR SELF REFERRALS. [facility], [address] [address], [place], [address], [place] tel:[phone] [facility] No Information 1 Andres Mayen. [address] [facility], [address], [place], [place], [address], [place]. [phone] Telephone E&M I 5-10 Min WENDY [facility], [address] [address], [place], [address], [place] tel:[phone] [facility] GI Symptoms or Concerns (chief complaint) Cirrhosis of liver without ascites, unspecified hepatic cirrhosis type 1 Andres Mayen. [address] [facility], [address], [place], [address], [place]. tel:[phone] Referring Provider: Tiarra Campos MD, [address] [facility] [address], [place], [address] . tel:[phone] [facility], [address] [address], [place], [address], [place] tel:[phone] [facility] No Information Dec-0 1 Andres Mayen. [address] [place] [address], [id number], [place]. tel:[phone] Telephone E&M II 11-20 Min WENDY [facility], [address] [address], [place], [address], [place] tel:[phone] [facility] GI Symptoms or Concerns (chief complaint) Alcoholic cirrhosis of liver without ascites Jun-2 0 Andres Mayen. [address] [place] [address], [id number], [place]. tel:[phone] Referring Provider: Referral Self, USE FOR SELF REFERRALS. Offic/outpt E&m Estab Mod-hi 2 [facility], [address] [address], [facility] [place], [address], [place] tel:[phone] [facility] GI Symptoms or Concerns (chief complaint) Alcoholic cirrhosis of liver without ascitesDietary counseling and surveillance 0 Andres Mayen. [address] [place] [address], [id number], [place]. tel:[phone] Referring Provider: Nikos Bishop, [address], [place], [address]. tel:[phone] Offic/outpt E&m Estab Mod-hi 2 [facility], [address] [address], [place], [address], [place] tel:[phone] [facility] GI Symptoms or Concerns (chief complaint) Alcoholic cirrhosis of liver without ascitesDietary counseling and surveillanceEl evated blood-pressure reading, w/o diagnosis of htn 2-201 9 Andres Mayen. [address] [place] [address], [id number], [place]. tel:[phone] Referring Provider: Nikos Bishop, [address], [place], [address]. tel:[phone] [facility], [address] [address], [place], [address], [place] tel:[phone] [facility] Cirrhosis of liver without ascites, unspecified hepatic cirrhosis type 9 Andres Mayen. [address]001 [facility], [facility] [address], [place], [place], [address], [place]. tel:[phone] Referring Provider: Tiarra Campos MD, [address] [place] [address] [address], [facility] [place], [address] . tel:[phone] [facility] [place], [address] [address], [facility] [place], [address], [place] tel:[phone] [facility] No Information 9 Buffy Low. [address] [facility], [facility] [address], [place], [place], [address], [place]. tel:[phone] Referring Provider: Gail Baer MD, [address] [place] [address] [address], [facility] [place], [address] . tel:[phone] Offic/outpt E&m Estab Mod-hi 2 [facility] [place], [address] [address], [place], [address], [place] tel:[phone] [facility] GI Symptoms or Concerns (chief complaint) Cirrhosis of liver without ascites, unspecified hepatic cirrhosis type 9 Andres Schmittahim. [address] [facility], [facility] [address], [place], [place], [address], [place]. tel:[phone] Referring Provider: Referral Self, USE FOR SELF REFERRALS. [facility] PA, [address] [address], [place], [address], [place] tel:[phone] [facility] Gastric ulcer without hemorrhage or perforation, unspecified chronicity 9 Baylee Berry. [address] [facility], [address], [place], [place], [address], [place]. tel:[phone] Miah Gu MD. tel:[phone] [facility], [address] [address], [place], [address], [place] tel:[phone] [facility] No Information 9 Baylee Berry. [address] [facility], [address], [place], [place], [address], [place]. tel:[phone] Referring Provider: Jamal Beach MD, [address] [facility] 500, [place], [address] . tel:[phone] [facility] PA, [address] [address], [place], [address], [place] tel:[phone] [facility] Alcoholic cirrhosis of liver without ascites 9 Anita Jerome. [address] [facility], [facility] [address], [place], [address], [place]. tel:[phone] Miah Gu MD. tel:[phone] erring Provider: Referral Self, USE FOR SELF REFERRALS. Offic/outpt E&m [facility], [address] [address], [place], [address], [place] tel:[phone] [facility] GI Symptoms or Concerns (chief complaint) Alcoholic cirrhosis of liver without ascitesDietary counseling and surveillance 9 [facility]. [address] [facility], [address], [place], [place], [address], [place]. tel:[phone] Referring Provider: Jacob Hernandez MD, [address] [place] [address], [place], [address]. tel:[phone] [facility] PA, [address] [address], [place], [address], [place] tel:[phone] [facility] Colon polypEncounter for screening for malignant neoplasm of colonBenign neoplasm of rectumAlcoholi c fatty liverAlcoholic fatty liver 5 Neel James. [address] [facility], [facility] [address], [place], [place], [address], [place]. tel:[phone] Referring Provider: [place], [address], [place], [address]. tel:[phone] Offic/outpt E&m Estab Mod-hi 2 [facility] PA, [address] [address], [facility] [place], [address], [place] tel:[phone] [facility] Liver Symptoms or Concerns (chief complaint) Alcohol Cirrhosis LiverNon-alcoh olic Fatty LiverDietary Surveil/counse lAlcoholic cirrhosis of liver without ascitesOther specified diseases of liverDietary counseling and surveillance 3 5 No Information Radha Alston MD. tel:[phone] erring Provider: Referral Self, USE FOR SELF REFERRALS. [facility] PA, [address] [address], [facility] [place], [address], [place] tel:[phone] [facility] Alcohol Cirrhosis LiverAlcoholic cirrhosis of liver without ascites Dec- 5 No Information Radha Alston MD. tel:[phone] erring Provider: Referral Self, USE FOR SELF REFERRALS. [facility] PA, [address] [address], [place], [address], [place] tel:[phone] [facility] Alcohol Cirrhosis Liver Sep-2 - 4 No Information [facility], [address] [address], [facility] [place], [address], [place] tel:[phone] [facility] Alcohol Cirrhosis Liver Sep-1 4 No Information Radha Alston MD. tel:[phone] erring Provider: Radha Bishop, [address], [place], [address]. tel:[phone] Offic/outpt E&m Estab Low-mod [facility] PA, [address] [address], [place], [address], [place] tel:[phone] [facility] Liver Symptoms or Concerns (chief complaint) Alcohol Cirrhosis LiverAlcoholic Fatty LiverDietary Surveil/counse lElev Bl Pres W/o Hypertn 4 No Information Radha Alston MD. tel:[phone] erring Provider: Radha Bishop, [address], [place], [address]. tel:[phone] [facility] PA, [address] [address], [place], [address], [place] tel:[phone] [facility] Alcohol Cirrhosis Liver 4 No Information Referring Provider: Radha Bishop, [address], [place], [address]. tel:[phone] Offic/outpt E&m Estab Mod-hi 2 [facility] [place], [address] [address], [place], [address], [place] tel:[phone] [facility] Alcohol Cirrhosis LiverAlcohol Cirrhosis LiverAlcoholic Fatty LiverConstipat ion Unspecified 4 No Information Referring Provider: Referral Self, USE FOR SELF REFERRALS. Offic/outpt E&m Estab Low-mod [facility] [place], [address] [address], [place], [id number], [place] tel:[phone] [facility] Cirrhosis (chief complaint) Liver disease (chief complaint) Alcohol Cirrhosis LiverAlcohol Cirrhosis LiverAlcoholic Fatty Liver 3 No Information Referring Provider: Radha Bishop, [address], [place], [address]. tel:[phone] [facility] [place], [address] [address], [place], [address], [place] tel:[phone] [facility] Esoph Varices W/o BleedEsoph Varices W/o Bleed 3 Link MD Toribio. [address] [facility], [facility] [address], [place], [address], [place]. tel:[phone] Referring Provider: Radha Bishop, [address], [place], [address]. tel:[phone] Offic/outpt E&m Estab Mod-hi 2 [facility], [address] [address], [place], [place], [address], [place] tel:[phone] [facility] (alcohol cirrhosis of the liver and 6 mo F/U) (chief complaint) Alcohol Cirrhosis LiverAlcohol Cirrhosis LiverAlcoholic Fatty Liver 3 No Information Referring Provider: Referral Self, USE FOR SELF REFERRALS. Offic/outpt E&m Estab Low-mod [facility] [place], [address] [address], [place], [place], [address], [place] tel:[phone] [facility] F/UCirrhos is (chief complaint) Alcohol Cirrhosis LiverAlcohol Cirrhosis LiverAlcoholic Fatty Liver 2 No Information Referring Provider: Radha Bishop, [address], [place], [address]. tel:[phone] Offic/outpt E&m Estab Mod-hi 2 [facility] [place], [address] [address], [place], [place], [address], [place] tel:[phone] [facility] Other (Alcohol Cirrhosis) . (chief complaint) Alcohol Cirrhosis LiverAlcohol Cirrhosis LiverAlcoholic Fatty Liver 2 No Information Referring Provider: Radha Bishop, [address], [place], [address]. tel:[phone] Offic/outpt E&m Estab Mod-hi 2 [facility] [place], [address] [address], [place], [place], [address], [place] tel:[phone] [facility] Cirrhosis (chief complaint) Alcohol Cirrhosis Liver Jan- 1 Rip Knott. [address] [facility], [facility] [address], [place], [place], [address], [place]. tel:[phone] Referring Provider: Radha Bishop, [address] [place], [address]. tel:[phone] Offic/outpt E&m Estab Minor [facility] [place], [address] [address], [place], [place], [address], [place] tel:[phone] [facility] Liver disease (chief complaint) Alcohol Cirrhosis Liver Sep- 0 Rip Knott. [address], [id number], [place]. tel:[phone] Referring Provider: Radha Bishop, [address] [place], [address]. tel:[phone] Offic/outpt E&m Estab Low-mod [facility] [place], [address] [address], [place], [place], [address], tel:[phone] [facility] Liver disease (chief complaint) Alcohol Liver Damage Nos 0 No Information Referring Provider: Radha Bishop, [address] [place], [address]. tel:[phone] Offic Cons New/estab Mod [facility] [place], [address] [address], [place], [place], [address], [place] tel:[phone] [facility] Hepatitis (chief complaint) Alcohol Liver Damage Nos Mar- 0 Rip Knott. [address], [id number], [place]. tel:[phone] Referring Provider: Radha Bishop, [address] [facility] [address] [address], [address]. tel:[phone] [facility]&m Minr Compl [facility] [place], [address] [address], [place], [place], [address], [place] tel:[phone] [facility] No Information 0 No Information Referring Provider: Vinny Manuel, [address] [place], [address]. tel:[phone] Init Inpt Cons New/est Mod-hi [facility], [address] [address], [place], [place], [address], [place] tel:[phone] [facility] No Information Janis Henson. [address] [facility], [address], [place], [place], [address], [place]. tel:[phone] Referring Provider: Vinny Manuel, [address] [place], [address]. tel:[phone] Family History Family Member Type Diagnosis Age At Onset Sister Problem (finding) Alive and well Father Problem (finding) Mother Problem (finding) Sister Problem (finding) Mother Problem (finding) malignant neop lasm of pancreas (Cause Of ) First degree family history Problem (finding) Cancer, breast Daughter Problem (finding) Alive and well Immunizations Vaccine Date Status Comments Influenza, injectable, [place] Canine Kidney, preservative free, quadrivalent administered Note: AR IC bi- directional interface ; Source: Other [...] ; Source: Other Registry Influenza, injectable, [place] Canine Kidney, preservative free, quadrivalent administered Note: AR IC bi- directional interface ; Source: Other [...] bi-directional interface ; Source: Other Registry Novel [id number], all formulations administered Note: MI[facility] bi-direct ional [...] Payer name Insurance type Covered democrat ID Authoriza tion(s) [facility] [id number] Social History Type Description Quantity Date Captured Comments Alcohol Use Details Unknown Caffeine Use Details Unknown Tobacco Use Status No Information Smoking Status No Information Sex Female Chief Complaint And Reason For Visit No [...] Appointment date/timeframe: 4 Months ordered Referral Ordered: follow-up visit with Tiarra Campos MD 6 Months Appointment date/timeframe: 6 Months ordered Referral Ordered: CBC Appointment date/timeframe: 03/29/2019 ordered Referral Ordered: H. 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 Please refer to my previous notes for further details. As you know, patient was drinking alcohol in the setting of known diagnosis of underlying liver disease. She reports today that she quit drinking alcohol altogether early October 2023. Since last time I saw the patient in the clinic, she had a traumatic fall earlier this month which resulted in several abrasions. She was seen in the emergency room and prescribed a course of cephalexin. She had recent labs with her primary care physician which revealed mild hyponatremia, and mild hypokalemia at 3.1. This was managed by the primary care physician. Patient is scheduled for repeat labs tomorrow. As you know patient is on Lasix 20 milligram daily and spironolactone 50 milligram daily for lower extremity edema. Main complaint today is generalized fatigue, and abdominal bloating. She had an ultrasound in August 2023 which revealed no ascites. Ultrasound showed no focal liver lesion. Patient had an upper endoscopy in September 2023 which revealed biopsy-proven reflux esophagitis. No esophageal varices were seen. 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 She is in wheelchair most of the times. Her neuropathy was treated with rituximab in the past. Medical history is remarkable for DVT for [...] she recieved a course of Warfarin in 2015. 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 [...] today and after I speak with the upholstery estimator. 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
--- OUTSIDE RECORDS SUMMARY | 2024-02-29 08:08 | XMS_ITS | Clinical Summary ---
Author Organization [place] Address [address] [place] [address]. [place] [address] Care Team Providers Care Family Day Care Provider Name Role Phone Dexter Sykes MD Unavailable [phone] Siva Hearn MD Unavailable [phone] Radha Espinoza RN Unavailable Unavailable Jacob Hernandez MD Unavailable [phone] Elissa Barnes Primary Care Provider [phone] Allergies Active Allergy Reactions Criticality Noted Date [...] calcitonin, salmon, (MIACALCIN) 200 UNIT/ACT nasal spray [place] 1 spray into one nostril alternating nostrils [...] original. Patient to receive IVIg infusions at [facility]: [phone] (T) [phone] (F) Problem Noted Date Diagnosed Date Trigger middle finger of right hand 12/07/2020 Overview: Added automatically from request for surgery [id number] Carpal tunnel syndrome of right wrist 12/07/2020 Overview: Added automatically from request for surgery [id number] UTI (urinary tract infection) 11/17/2017 IgM lambda [...] Type Department Care Team Description 02/04/2024 Telephone [facility] [address] 4th [place] [address] None Procedure (Request to cancel [facility] procedure) from Last 3 Months Immunizations Name Administration Dates Next Due Flu, Unspecified 07/08/2019, 7,07/09/2016,2011,06/18/2011,08/05/2007,08/14/2006,1 ,09/06/2004,08/08/2003 [id number] Novel Flu 08/14/2009 Influenza (H1N1) 08/14/2009 Influenza [...] Comments Blood Pressure 122/85 09/14/2023 11:30 AM COMMISSARY MANAGER Pulse 92 09/14/2023 11:22 AM COMMISSARY MANAGER Temperature 36.4 ??C (97.6 ??F) 09/14/2023 11:[address] Respiratory Rate 14 09/14/2023 11:14 AM COMMISSARY MANAGER Oxygen Saturation 98% 09/14/2023 11:30 AM COMMISSARY MANAGER Inhaled Oxygen Concentration - - Weight 87.1 kg (192 lb) 09/14/2023 8:17 AM COMMISSARY MANAGER Height 172.7 cm (5' 8) 10/13/2023 1:08 PM COMMISSARY MANAGER Body Mass Index 29.19 09/14/2023 8:17 AM COMMISSARY MANAGER Plan of Treatment Health Maintenance Due Date [...] BY METER Routine 09/14/2023 11:2 7 AM COMMISSARY MANAGER COLONOSCOPY Routine 07/25/2021 8:42 AM CDT HEPATITIS C ANTIBODY Routine 01/23/2017 11:52 AM CDT CIDP (chronic inflammatory demyelinating polyneuropathy) (H) TSH WITH FREE T4 REFLEX Routine 01/19/2017 3:43 PM CDT CIDP (chronic inflammatory demyelinating polyneuropathy) (H) Anemia, unspecified type Fatty liver, alcoholic Lymphadenopathy HIV ANTIGEN ANTIBODY COMBO Routine 12/17/2016 1:04 PM CDT Inflammatory neuropathy (H) MA SCREENING BILATERAL W/ YASH Routine 01/22/2016 1:42 PM CDT Visit for screening mammogram from Last 3 Months or Most Recently Relevant to Health Maintenance Results * Glucose by meter (09/14/2023 11:27 AM COMMISSARY MANAGER) GLUCOSE BY METER POCT 97 70 - 99 mg/dL 09/14/2023 11:34 AM COMMISSARY MANAGER LABORATORY POC Blood, Capillary BLOOD SPECIMEN / Unknown 09/14/2023 11:27 AM COMMISSARY MANAGER 09/14/2023 11:34 AM COMMISSARY MANAGER Catarino VALLECILLO - IDALMIS POCT LABORATORY [facility] Acute [facility] Lab [address] [facility] (1st floor, no room number) [place] [address], [facility] [phone] * COLONOSCOPY (07/25/2021 8:42 AM CDT) COLONOSCOPY [facility] Patient Name: Cathy Raymond ? Procedure [...] and ?oxygen saturations were monitored continuously. The ?Adaptive TCR Adult Colonoscope, Model # CF-JB580H, ?[place]ora # 226, SN # [id number] was introduced through ?the anus and advanced [...] Procedure Code(s): ? --- Professional --- ? 52722, Colonoscopy, flexible; diagnostic, including collection of ? specimen(s) by brushing or washing, when performed (separate procedure) Diagnosis Code(s): ? --- Professional --- ? Z12.11, Encounter for screening for malignant neoplasm of colon ? K63.89, Other specified diseases of intestine ? Q43.8, Other specified congenital malformations of intestine CPT copyright 2019 [employer]. All rights reserved. The codes documented in this report are preliminary and upon cone treater review may be revised to meet current compliance requirements. Lyndon Arteaga M.D. ____ Lyndon Arteaga MD 07/25/2021 9:31:01 AM Number of Addenda: 0 Note Initiated On: 07/25/2021 8:42 AM MRN: ?[id number] Procedure Date: ? 07/25/2021 8:42:04 AM Scope [...] established for newborns, infants, and children NR [facility] 01/23/2017 11:5 2 AM CDT 01/23/2017 11:54 AM CDT Nikos Lovell MD LAB - BLOOD ORDERABL ES Performing Organization Address [facility] Co de Phone Number [address] * TSH with free T4 reflex (01/19/2017 3:43 PM CDT) Pathologist [facility] TSH 1.55 0.40 - 4.00 mU/L [facility] Blood specimen (specimen) 01/19/2017 3:43 PM CDT 01/19/2017 3:45 PM CDT Joanna Pulido MD LAB - BLOOD ORDERA BLES Performing Organization Address [facility] [place] [address] * HIV Antigen Antibody Combo (12/17/2016 1:04 PM CDT) Pathologist [facility] HIV Antigen Antibody Combo Nonreactive HIV-1 p24 Ag & HIV-1/HIV-[address] [facility] Blood specimen (specimen) 12/17/2016 1:04 PM CDT 12/17/2016 1:06 PM CDT Jacob Hernandez MD LAB - BLOOD ORDERABL ES Performing Organization Address City/[facility]/[place] [address] * MA Screen Bilateral w/Yash (01/22/2016 1:42 PM CDT) Anatomical Region Laterality Modality Breast Bilateral Mammography Impressions 01/22/2016 2:37 PM CDT IMPRESSION: BI-RADS CATEGORY: 1 - ??NEGATIVE. RECOMMENDED FOLLOW-UP: Annual Mammography Exam results letter mailed to patient. JESSICA RAINEY MD Narrative 01/22/2016 2:37 PM CDT SCREENING MAMMOGRAM, BILATERAL, DIGITAL w/CAD w/TOMOSYNTHESIS - 01/22/2016 1:42 PM. BREAST SYMPTOMS: No current breast complaints. COMPARISON: ??01/19/2016, 01/02/2011. BREAST DENSITY: Scattered fibroglandular densities. COMMENTS: No findings of suspicion for malignancy. ? Procedure Note Jessica Rainey MD - 01/22/2016 SCREENING MAMMOGRAM, BILATERAL, DIGITAL w/CAD w/TOMOSYNTHESIS - 01/22/2016 1:42 PM. BREAST SYMPTOMS: No current breast complaints. COMPARISON: 01/19/2016, 01/02/2011. BREAST DENSITY: Scattered fibroglandular densities. COMMENTS: No findings of suspicion for malignancy. IMPRESSION: BI-RADS CATEGORY: 1 - NEGATIVE. RECOMMENDED FOLLOW-UP: Annual Mammography Exam results letter mailed to patient. 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 Source: [employer] [facility]. 10/03/2019 Advance Directives For more information, please contact: [phone] * Full Code (Latest Code Status on File) Date Activated Date Inactivated Comments 02/04/2017 8:21 AM 12/06/2018 8:11 AM Care Teams Family Day Care Provider Relationship Specialty Start Date End Date Elissa Barnes [address] [place] [address] PCP - General Physician Control Systems Developer 08/28/21 Dexter Sykes MD [facility] NEUROLOGY [facility] [address] [address] 09/15/16 Siva Hearn MD [address] [address] Neurology 09/15/16 Radha Espinoza, RN Registered Nurse Neurology 12/15/16 Jacob Hernandez MD [address] [place] [address] Assigned Neuroscience Provider 07/27/20
--- OUTSIDE RECORDS SUMMARY | 2024-02-29 08:09 | XMS_ITS | Encounter Summary ---
Author Organization [place] Address [address] [place] [address]. [place] [address] Care Team Providers Care Time Recorder Name Role Phone Dexter Sykes MD Unavailable [phone] Siva Hearn MD Unavailable [phone] Nikos Ventura Primary Care Provider Unavailabl Radha Luis RN Unavailable Unavailable Jacob Hernandez MD Unavailable [phone] Ronn Howard MD Unavailable [phone] [place] [address] Primary Care Provider Luis Mock PA-C Unavailable [phone] Joanna Pulido MD Unavailable [phone] Elissa Barnes Primary Care Provider Encounter Details Date Type Department Care Team (Late st Contact Info) Description 01/30/2017 MyC Medical Advice [facility] General Surgery [address] [facility] 4th [place] [address] José Miguel Golden Social History [...] Time 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 Source: [facility]. 10/03/2019 documented as of this encounter Care Teams Time Recorder Relationship Specialty Start Date End Date Audrey Riccardo [place] [address] [address] PCP - General Family Practice 11/11/16 01/21/21 [facility] [address] [place] [address] PCP - General 01/22/21 08/27/21 Elissa Barnes [address] [place] [address] PCP - General Physician Boat Fueler 08/28/21 Dexter Sykes MD [address] [address] 09/15/16 Siva Hearn MD [address] [address] Neurology 09/15/16 Radha Espinoza, GEOFF Registered Nurse Neurology 12/15/16 Jacob Hernandez MD [address] [place] [address] Assigned Neuroscience Provider 07/27/20 Ronn [place] [address] [place] [address] Assigned Musculoskeletal Provider 12/09/20 02/09/21 Luis Mock [place] [address] [address] Assigned Musculoskeletal Provider 02/10/21 08/08/22 Joanna Pulido MD [address] [place] [address] Assigned Cancer Care Provider 04/28/21 04/24/23 documented as of this encounter
--- OUTSIDE RECORDS SUMMARY | 2024-02-29 08:09 | XMS_ITS | Encounter Summary ---
Author Organization [place] Address [address] [place] [address]. [place] [address] Care Team Providers Care Manager Costing Name Role Phone Dexter Sykes MD Unavailable [phone] Siva Hearn MD Unavailable [phone] Nikos Ventura Primary Care Provider Unavailabl Radha Luis RN Unavailable Unavailable Jacob Hernandez MD Unavailable [phone] Ronn Howard MD Unavailable [phone] [place] [address] Primary Care Provider Luis Mock PA-C Unavailable [phone] Joanna Pulido MD Unavailable [phone] Elissa Barnes Primary Care Provider [phone] Reason for Visit * Reason Onset Date Comments Orders 05/10/2020 infusion order Encounter Details Date Type Department Care Team (Late st Contact Info) Description 05/10/2020 Telephone [facility] Neurology [address] [facility] 3rd [place] [address] Jacob Hernandez MD [address] [place] [address] Orders (infusion order) Social History Tobacco [...] infusions. Called Miryam at [facility] (phone:??[phone]; fax:??[phone]) and let her know that they can discontinue IVIG treatments immediately. I will fax her the note next time I'm on site. 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 Source: [facility]. 10/03/2019 documented as of this encounter Care Teams Manager Costing Relationship Specialty Start Date End Date Audrey Riccardo [place] [address] [address] PCP - General Family Practice 11/11/16 01/21/21 [facility] [address] [place] [address] PCP - General 01/22/21 08/27/21 Elissa Barnes [address] [place] [address] PCP - General Physician Steward/Stewardess Deck 08/28/21 Dexter Sykes MD [address] [address] 09/15/16 Siva Hearn MD [address] [address] Neurology 09/15/16 Radha Espinoza, GEOFF Registered Nurse Neurology 12/15/16 Jacob Hernandez MD [address] [place] [address] Assigned Neuroscience Provider 07/27/20 Ronn Howard [place] [address] [place] [address] Assigned Musculoskeletal Provider 12/09/20 02/09/21 Luis Mock [place] [address] [address] Assigned Musculoskeletal Provider 02/10/21 08/08/22 Joanna Pulido MD [address] [place] [address] Assigned Cancer Care Provider 04/28/21 04/24/23 documented as of this encounter
--- OUTSIDE RECORDS SUMMARY | 2024-02-29 08:09 | XMS_ITS | Encounter Summary ---
Author Organization [place] Address [address] [place] [address]. [place] [address] Care Team Providers Care Line Servicer Name Role Phone Dexter Sykes MD Unavailable [phone] Siva Hearn MD Unavailable [phone] Radha Espinoza RN Unavailable Unavailable Jacob Hernandez MD Unavailable [phone] Elissa Barnes Primary Care Provider [phone] Reason for Visit * Reason Onset Date Comments Procedure 02/04/2024 Request to cance clarence [facility] procedure Encounter Details Date Type Department Care Team (Late st Contact Info) Description 02/04/2024 Telephone [facility] G[facility]ology Clinic [address] [address] None Procedure (Request to cancel [facility] [...] the 02/15/[address] Anderson at [facility]. The patient has a broken femur and is undergoing surgery. The procedure was scheduled through [facility] in the OR. The chief order dispatcher provided the patient's spouse with [facility]'s number & transferred him to their scheduling line. 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 Source: [facility]. 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 [address] [address] 09/15/16 Siva Hearn MD [facility]UR[facility] E [address] [address] Neurology 09/15/16 Radha Espinoza, RN Registered Nurse Neurology 12/15/16 Jacob Hernandez MD [address] [place] [address] Assigned Neuroscience Provider 07/27/20 documented as of this encounter
--- OUTSIDE RECORDS SUMMARY | 2024-02-29 08:09 | XMS_ITS | Encounter Summary ---
Author Organization [place] Address [address] [place] [address]. [place] [address] Care Team Providers Care Ware Carrier Name Role Phone Dexter Sykes MD Unavailable [phone] Siva Hearn MD Unavailable [phone] Nikos Ventura Primary Care Provider Unavailabl Radha Luis RN Unavailable Unavailable Jacob Hernandez MD Unavailable [phone] Ronn Howard MD Unavailable [phone] [facility] Primary Care Provider Luis Mock PA-C Unavailable Joanna Pulido MD Unavailable [phone] Elissa Barnes Primary Care Provider [phone] Reason for Visit * Reason Onset Date Comments Call Back 05/12/2019 Office Notes Encounter Details Date Type Department Care Team (Late st Contact Info) Description 05/12/2019 Telephone [facility] [address],Clinic 1F [address] [facility] [address] [place], [place] [address] Jcaob Hernandez MD [address] [place], [place] [address] Call Back (Office Notes) Social History Tobacco [...] clarification please call Judi. 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 Source: [facility]. 10/03/2019 documented as of this encounter Care Teams Ware Carrier Relationship Specialty Start Date End Date Nikos Ventura [facility] [address] [facility] [address] [place] [address] PCP - General Family Practice 11/11/16 01/21/21 [facility] [address] [place] [address] PCP - General 01/22/21 08/27/21 Elissa Barnes [address] [place] [address] PCP - General Physician Internet Application Developer 08/28/21 Dexter Sykes MD [facility] NEUROLOGY [facility] E [address] [address] 09/15/16 Siva Hearn MD [facility] NEUROLOGY [facility] E [address] [address] Neurology 09/15/16 Radha Espinoza, GEOFF Registered Nurse Neurology 12/15/16 Jacob Hernandez MD [address] [place] [address] Assigned Neuroscience Provider 07/27/20 Ron[place] [id number] [place] [address] Assigned Musculoskeletal Provider 12/09/20 02/09/21 Luis Mock, PA-C [address] [place] [address] Assigned Musculoskeletal Provider 02/10/21 08/08/22 Joanna Pulido MD [address] [place] [address] Assigned Cancer Care Provider 04/28/21 04/24/23 documented as of this encounter
--- OUTSIDE RECORDS SUMMARY | 2024-02-29 08:09 | XMS_ITS | Encounter Summary ---
Author Organization [place] Address [address] [place] [address]. [place] [address] Care Team Providers Care It Systems Manager Name Role Phone Dexter Sykes MD Unavailable Siva Hearn MD Unavailable [phone] Radha Espinoza RN Unavailable Unavailable Jacob Hernanedz MD Unavailable [phone] Joanna Pulido MD Unavailable [phone] Elissa Barnes Primary Care Provider [phone] Reason for Visit * Reason Onset Date Comments Orders 04/22/2023 labs Encounter Details Date Type Department Care Team (Late st Contact Info) Description 04/22/2023 Telephone [facility] 1st Floor, [facility] [address] [phone] Jacob Heranndez MD [address] [place] [address] Orders (labs) Social History Tobacco Use Types [...] PM CDT Spoke with Maryse at [facility]. Orders faxed accordingly (fax [phone]). Giselle Britt RN * Telephone Encounter - Brittany Abad - 04/22/2023 1:30 PM CDT [facility] Call Center Phone Message May a detailed message be left on voicemail: yes Reason for Call: Other: Maryse from [facility] is calling asking about the lab orders. 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 Source: [facility]. 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 [address] [place] [address] 09/15/16 Siva Hearn MD [facility] [address] [facility] [address] [place] [address] Neurology 09/15/16 Radha Espinoza, RN Registered Nurse Neurology 12/15/16 Jacob Hernandez MD [address] [place], [place] [address] Assigned Neuroscience Provider 07/27/20 Joanna Pulido MD [address] [place], [place] [address] Assigned Cancer Care Provider 04/28/21 04/24/23 documented as of this encounter
--- OUTSIDE RECORDS SUMMARY | 2024-02-29 08:09 | XMS_ITS | Encounter Summary ---
Author Organization [place] Address [address] [place] [address]. [place] [address] Care Team Providers Care Front Office Clerk Name Role Phone Dexter Sykes MD Unavailable [phone] Siva Hearn MD Unavailable [phone] Nioks Ventura Primary Care Provider Unavailabl Radha Luis RN Unavailable Unavailable Jacob Hernandez MD Unavailable [phone] Ronn Howard MD Unavailable [phone] [place] [address] Primary Care Provider Luis Mock PA-C Unavailable Joanna Pulido MD Unavailable [phone] Elissa Barnes Primary Care Provider [phone] Reason for Visit * Reason Onset Date Comments Refill Request 02/16/2019 tenofovir (VIREA D) 300 MG tablet Encounter Details Date Type Department Care Team (Late st Contact Info) Description 02/16/2019 Telephone [facility] Neurology [address] [facility] 3rd [place] [address] Jacob Hernandez MD [address] [place] [address] Refill Request (tenofovir (VIREAD) 300 MG [...] Rivera - 02/17/2019 3:13 PM CDT [facility] Phone Message May a detailed message be left on voicemail: yes Reason for Call: Other: pt called to let clinic know that they got the RX issue figured outand do not need the refill anymore. Action Taken: Message routed to: [facility] ([facility]): neuro * Telephone Encounter - Nicolette Doshi [...] Curiel - 02/16/2019 11:59 AM CDT [facility] Phone Message May a detailed message be left on voicemail: yes Reason for Call: Medication Refill Request Has the patient contacted the pharmacy for the refill? Yes Name of medication being requested: tenofovir (VIREAD) 300 MG tablet Provider who prescribed the medication: Pharmacy: [facility] [address] [place] [address] [facility] [address] Date medication is needed: as soon as possible pt is out and will be leaving town soon. 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 Source: [facility]. 10/03/2019 documented as of this encounter Care Teams Front Office Clerk Relationship Specialty Start Date End Date Nikos Ventura [facility] [address] [address] PCP - General Family Practice 11/11/16 01/21/21 [facility] [address] [place] [address] PCP - General 01/22/21 08/27/21 Elissa Barnes [address] [place] [address] PCP - General Physician Ramp Manager 08/28/21 Dexter Sykes MD [facility] [address] [address] 09/15/16 Siva Hearn MD [place] [address] [address] Neurology 09/15/16 Radha Espinoza, GEOFF Registered Nurse Neurology 12/15/16 Jacob Hernandez MD 909 [place] [address] Assigned Neuroscience Provider 07/27/20 [place] [address] [address] Assigned Musculoskeletal Provider 12/09/20 02/09/21 Luis Mock PA-C [address] [address] Assigned Musculoskeletal Provider 02/10/21 08/08/22 Joanna Pulido MD 9 [place], [place] [address] Assigned Cancer Care Provider 04/28/21 04/24/23 documented as of this encounter
--- OUTSIDE RECORDS SUMMARY | 2024-02-29 08:09 | XMS_ITS | Encounter Summary ---
Author Organization [place] Address [address] [place] [address]. [place] [address] Care Team Providers Care Educational Psychology Teacher Name Role Phone Dexter Sykes MD Unavailable [phone] Siva Hearn MD Unavailable [phone] Nikos Ventura Primary Care Provider Unavailabl Radha Luis RN Unavailable Unavailable Jacob Hernandez MD Unavailable [phone] Ronn Howard MD Unavailable [phone] [place] [address] Primary Care Provider Luis Mock PA-C Unavailable Joanna Pulido MD Unavailable [phone] Elissa Barnes Primary Care Provider Reason for Visit * Reason Onset Date Comments Call Back 01/04/2020 Call Back 01/04/2020 Call Back Encounter Details Date Type Department Care Team (Late st Contact Info) Description 01/04/2020 Telephone [facility] 1st Floor, [place] [address] [place] [phone] Jacob Hernandez MD 909 [place] [address] Call Back; Call Back (Call Back) Social [...] with patient. She rec'd IVIG yesterday at [facility] and is scheduled again 01/24. She is [...] Yesenia Ndiaye - 01/04/2020 3:13 PM CDT [facility] Call Center Phone Message May a detailed message be left on voicemail: no Reason for Call: Other: Pt, Cathy calling Nicolette back. Please call her at: [phone] Action Taken: Message routed to: [facility] Neurology Travel Screening: Not Applicable * Telephone Encounter - Nicolette Doshi RN - 01/04/2020 2:38 PM CDT Called patient and left [facility] requesting a call back. 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 Source: [facility]. 10/03/2019 documented as of this encounter Care Teams Educational Psychology Teacher Relationship Specialty Start Date End Date Nikos Ventura [facility] [address] [address] PCP - General Family Practice 11/11/16 01/21/21 [facility] [address] [place] [address] PCP - General 01/22/21 08/27/21 Elissa Barnes [address] [place] [address] PCP - General Physician Utility Hand 08/28/21 Dexter Sykes MD [address] [address] 09/15/16 Siva Hearn MD [facility] E [address] [address] Neurology 09/15/16 Radha Espinoza, RN Registered Nurse Neurology 12/15/16 Jacob Hernandez MD [address] [place] [address] Assigned Neuroscience Provider 07/27/20 [place] [address] [address] Assigned Musculoskeletal Provider 12/09/20 02/09/21 Luis Mock, NEHA [address] [address] Assigned Musculoskeletal Provider 02/10/21 08/08/22 Joanna Pulido MD 909 [place], [place] [address] Assigned Cancer Care Provider 04/28/21 04/24/23 documented as of this encounter
--- OUTSIDE RECORDS SUMMARY | 2024-02-29 08:09 | XMS_ITS | Encounter Summary ---
Author Organization [place] Address [address] [place] [address]. [place] [address] Care Team Providers Care Waste Paper Hammermill Operator Name Role Phone Dexter Sykes MD Unavailable [phone] Siva Hearn MD Unavailable [phone] Nikos Ventura Primary Care Provider Unavailabl Radha Luis RN Unavailable Unavailable Jacob Hernandez MD Unavailable [phone] Ronn Howard MD Unavailable [phone] [place] [address] Primary Care Provider Luis Mock PA-C Unavailable Joanna Pulido MD Unavailable [phone] Elissa Barnes Primary Care Provider [phone] Encounter Details Date Type Department Care Team (Late st Contact Info) Description 02/11/2017 MyC Medical Advice [facility] [address] [place] [address] Joanna Pulido MD [address] [place] [address] Social History Tobacco Use Types Packs/Day [...] Comment:Added from external infection. Source: [facility]. 10/03/2019 documented as of this encounter Care Teams Waste Paper Hammermill Operator Relationship Specialty Start Date End Date Nikos Ventura [facility] [address] [address] PCP - General Family Practice 11/11/16 01/21/21 [facility] [address] [place] [address] PCP - General 01/22/21 08/27/21 Elissa Barnes [address] [place] [address] PCP - General Physician Manufacturing Team Member 08/28/21 Dexter Sykes MD [place] [address] [address] 09/15/16 Siva Hearn MD [address] [address] Neurology 09/15/16 Radha Espinoza, RN Registered Nurse Neurology 12/15/16 Jacob Hernandez MD 909 [place] [address] Assigned Neuroscience Provider 07/27/20 [place] [address] [address] Assigned Musculoskeletal Provider 12/09/20 02/09/21 Luis Mock PAMagnoliaC [address] [address] Assigned Musculoskeletal Provider 02/10/21 08/08/22 Joanna Pulido MD 909 [place] [address] Assigned Cancer Care Provider 04/28/21 04/24/23 documented as of this encounter
--- OUTSIDE RECORDS SUMMARY | 2024-02-29 08:09 | XMS_ITS | Data Portability ---
Author Organization [place] [facility] [place] [facility] Address [address] [facility] [address] [place] [address] Care Team Providers Care Hair Assistant Name Role Phone VERÓNICA GANN Primary Care Provider Assessment No assessment recorded. Plan of Treatment Reminders Order Date Submit Date Provider Last Modified By Organization Details Last Modified Time Details Appointments None recorded. Lab urinalysis , dipstick 2021 022 [email or web address] [facility], [address], [address], 10:29:58 culture, urine 2021 022 [facility], [address], [address], [place], [address], 11:33:08 Referral None recorded. Procedures None recorded. Surgeries None recorded. Imaging CT, abdomen + pelvis, w/o contrast 2021 022 [email or web address] [facility], [address], [place], [address], 12:11:44 Medication Orders Myrbetriq 50 mg tablet,ext ended release 2021 022 [email or web address] [id number], [address], [place], [place], [id number], 10:47:47 Patient TargetsNo targets recorded. Patient InstructionsNo instructions recorded. Reason for Referral None Reported. Results Created Date Observation Date Name Description Value Unit Range Abnormal Flag LastModifiedBy Organization Detail LastModifiedTime 06/30/20 22 06/30/2022 URINE CULTU RE final report MICROB IOLOGY RESULT S abnormal Not Available [facility] [address], [place], [address], 07/02/2022 11:33:08 06/30/20 22 06/30/2022 urina lysis , dipst ick pH-Status 6.5 Not Available [facility] [address], [place], [address], 06/30/2022 10:29:43 06/30/20 22 06/30/2022 urina lysis , dipst ick Leuko-Status Trace Not Available [facility] [address], [place], [address], 06/30/2022 10:29:43 07/01/20 22 06/30/2022 bladd er scan (PROC ) No observ ation record ed. BARCODE Not Available 07/01/2022 17:32:51 Result Notes None recorded. Procedures Surgical History Date Name Laterality Status Provider Name and Address Organization Details Recorded Time 2 Bladder Scan completed Rosaura kaufman [facility] 06/30/2022 10:29:37 1 colonoscopy completed Rosaura kaufman [facility] 06/30/2022 10:28:55 Imaging Results Imaging Date Name Status LastModified by Organiz ation Details LastModified Time 06/30/2022 bladder scan (PROC) completed BARCODE Information not available 07/01/2022 17:32:51 Procedure Notes None recorded. Medical Equipment None Reported. Allergies Allergen ID Allergen Name Allergen Category Reaction Reaction Severity Criticality Documentation Date Start Date Code Code System Note Provider Name and Address Organization Details Recorded Time 202344 Bactrim medicatio n Not available Not available Not available 06/30/2022 70800 9 RxNorm Rosaura kaufman [facility] 2 10:30:09 495994 adhesive environme nt,medica tion Not available Not available Not available 06/30/2022 Rosaura Chisholm shae, [facility] 2 10:30:15 609690 aspirin medicatio n Not available Not available Not available 06/30/2022 1191 RxNorm Rosaura Brookso shae, [facility] 2 10:30:22 952770 Augmentin medicatio n Not available Not available Not available 06/30/2022 76389 2 RxNorm [facility] 10:30:29 235437 clavulani c acid Not available Not available Not available Not available 06/30/2022 [address]2711 RxNorm [facility] 10:30:39 113760 hydrocodo ne Not available Not available Not available Not available 06/30/2022 5489 RxNorm [facility] 10:30:50 Medications Name Sig Start Date [...] AND AT TIME OF MRI NEEDED. 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 16+yearssinc elastcigaret te Information not available 06/30/2022 What Was The Date Of Your Most Recent Tobacco Screening? 06/30/2022 Information not available 06/30/2022 Sex: Female Functional Status None recorded. Mental Status None recorded. Family History Relationship Description Onset Age of this Age Resolved Age Notes Sister Family history of east cancer Medical History Condition Response High Blood Pressure Y Diabetes N Gynecological History Statement/Question Response Sexually Active? N Obstetrics History GPAL:G 1 P 0 0 0 0 Past Encounters Encounter ID Performer Location Encounter Start Date Encounter Closed Date Diagnosis/Indication Diagnosis SNOMED-CT Code [id number] Chuckie Coronado MD [facility] [address] [place] [id number] 06/30/2022 10:11:25 07/04/2022 13:32:11 Urgent desire to urinate 11572152 Recurrent urinary tract infection [id number] Health Concerns Section Related Observation LastModified by Organization Detai ls LastModified Time None Recorded Concern Status LastModified by Organization Details LastModified Time None Recorded Advance Directives Directive None Recorded Payers Encounter Date Sequence Insurance Name Policy Number Policy Landeros Covered Member ID Landeros Member ID Guarantor Name 06/30/2022 1 [employer] - DOS ON OR AFTER 19 (MEDICARE REPLACEMENT/ ADVANTAGE - HMO) [id number] Cathy Raymond [id number] Cathy Raymond Notes Date Note Type Note [...] = 19 mL Chuckie Coronado MD [address] [facility], [place], [address], [facility] 07/01/2022 16:21:34 OBGyn Episode No OBEpisode recorded.
--- OUTSIDE RECORDS SUMMARY | 2024-02-29 08:09 | XMS_ITS | Encounter Summary ---
Author Organization [place] Address [address] [place] [address]. [place] [address] Care Team Providers Care County Program Technician Name Role Phone Dexter Sykes MD Unavailable [phone] Siva Hearn MD Unavailable [phone] Nikos Ventura Primary Care Provider Unavailabl Radha Luis RN Unavailable Unavailable Jacob Hernandez MD Unavailable [phone] Ronn Howard MD Unavailable [phone] [place] [address] Primary Care Provider Luis Mock PA-C Unavailable Joanna Pulido MD Unavailable [phone] Elissa Barnes Primary Care Provider Encounter Details Date Type Department Care Team (Late st Contact Info) Description 10/18/2019 Telephone [facility] 1st Floor, [place] [address] [place] [phone] Jacob Hernandez MD 909 [place] [address] Social History Tobacco Use Types [...] May a detailed message be left on CoupFlip? Yes, leave a detailed message. 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 Source: [place] [facility]. 10/03/2019 documented as of this encounter Care Teams County Program Technician Relationship Specialty Start Date End Date Nikos Ventura [place] [address] [address] PCP - General Family Practice 11/11/16 01/21/[address] [address] PCP - General 01/22/21 08/27/21 Elissa Barnes [address] [place] [address] PCP - General Physician Concrete Pipe Making Machine Operator 08/28/21 Dexter Sykes MD [place] [address] [address] 09/15/16 Siva Hearn MD [place] [address] [address] [facility] [address] [place] [address] Neurology 09/15/16 Radha Espinoza, RN Registered Nurse Neurology 12/15/16 Jacob Hernandez MD [address] [place], [place] [address] Assigned Neuroscience Provider 07/27/20 [place] [address] [facility] [address] [place] [address] Assigned Musculoskeletal Provider 12/09/20 02/09/21 Luis Mock, PA-C [address] [facility] [address] [place] [address] Assigned Musculoskeletal Provider 02/10/21 08/08/22 Joanna Pulido MD 9 [place], [place] [address] Assigned Cancer Care Provider 04/28/21 04/24/23 documented as of this encounter
--- OUTSIDE RECORDS SUMMARY | 2024-02-29 08:09 | XMS_ITS | Referral Summary ---
Author Organization [place] Address [address] [place] [address]. [place] [address] Care Team Providers Care Tandem Operator Name Role Phone Dexter Sykes MD Unavailable [phone] Siva Hearn MD Unavailable [phone] Radha Espinoza RN Unavailable Unavailable Jacob Hernandez MD Unavailable [phone] Elissa Barnes Primary Care Provider [phone] Encounters Date Type Department Care Team Description 02/04/[address] [facility] [address] 4th [place] [address] None Procedure (Request to cancel [facility] procedure) from Last 3 Months Allergies Active [...] calcitonin, salmon, (MIACALCIN) 200 UNIT/ACT nasal spray Jarreau 1 spray into one nostril alternating nostrils [...] original. Patient to receive IVIg infusions at [facility]: [phone] (T) [phone] (F) Problem Noted Date Diagnosed Date Trigger middle finger of right hand 12/07/2020 Overview: Added automatically from request for surgery [id number] Carpal tunnel syndrome of right wrist 12/07/2020 Overview: Added automatically from request for surgery [id number] UTI (urinary tract infection) 11/17/2017 IgM lambda [...] Next Due Flu, Unspecified 07/08/2019, 7,07/09/2016,2011,06/18/2011,08/05/2007,08/14/2006,1 ,09/06/2004,08/08/2003 [id number] Novel Flu 08/14/2009 Influenza (H1N1) 08/14/2009 Influenza [...] Comments Blood Pressure 122/85 09/14/2023 11:30 AM ARSON INVESTIGATOR Pulse 92 09/14/2023 11:22 AM ARSON INVESTIGATOR Temperature 36.4 ??C (97.6 ??F) 09/14/2023 11:[address] Respiratory Rate 14 09/14/2023 11:14 AM ARSON INVESTIGATOR Oxygen Saturation 98% 09/14/2023 11:30 AM ARSON INVESTIGATOR Inhaled Oxygen Concentration - - Weight 87.1 kg (192 lb) 09/14/2023 8:17 AM ARSON INVESTIGATOR Height 172.7 cm (5' 8) 10/13/2023 1:08 PM ARSON INVESTIGATOR Body Mass Index 29.19 09/14/2023 8:17 AM ARSON INVESTIGATOR Plan of Treatment Not on file Procedures Procedure Name Priority Date/Time Associated Diagnosis Comments GLUCOSE BY METER Routine 09/14/2023 11:2 7 AM ARSON INVESTIGATOR COLONOSCOPY Routine 07/25/2021 8:42 AM CDT HEPATITIS [...] * Glucose by meter (09/14/2023 11:27 AM ARSON INVESTIGATOR) GLUCOSE BY METER POCT 97 70 - 99 mg/dL 09/14/2023 11:34 AM ARSON INVESTIGATOR [facility] POC Blood, Capillary BLOOD SPECIMEN / Unknown 09/14/2023 11:27 AM ARSON INVESTIGATOR 09/14/2023 11:34 AM ARSON INVESTIGATOR [facility]ar[facility] [address] [facility] (1st floor, no room number) [place] [address], [place] [phone] * COLONOSCOPY (07/25/2021 8:42 AM CDT) [facility] COLONOSCOPY [facility] Patient Name: Cathy Raymond ? Procedure Date: [...] continuously. The ?Olympus Adult Colonoscope, Model # CF-TF308Q, ?Endora # 226, SN # [id number] was introduced through ?the anus and advanced [...] Procedure Code(s): ? --- Professional --- ? 77879, Colonoscopy, flexible; diagnostic, including collection of ? specimen(s) by brushing or washing, when performed (separate procedure) Diagnosis Code(s): ? --- Professional --- ? Z12.11, Encounter for screening for malignant neoplasm of colon ? K63.89, Other specified diseases of intestine ? Q43.8, Other specified congenital malformations of intestine CPT copyright 2019 [employer]. All rights reserved. The codes documented in this report are preliminary and upon mold stacker review may be revised to meet current compliance requirements. Lyndon Arteaga M.D. ____ Lyndon Arteaga MD 07/25/2021 9:31:01 AM Number of Addenda: 0 Note Initiated On: 07/25/2021 8:42 AM MRN: ?[id number] Procedure Date: ? 07/25/2021 8:42:04 AM Scope [...] been established for newborns, infants, and children [facility] 01/23/2017 11:5 2 AM CDT 01/23/2017 11:54 AM CDT Nikos Lovell MD LAB - BLOOD ORDERABL ES Performing Organization Address City/[facility]/ZIP Co de Phone Number [facility] [address] * TSH with free T4 reflex (01/19/2017 3:43 PM CDT) TSH 1.55 0.40 - 4.00 mU/L [facility] Blood specimen (specimen) 01/19/2017 3:43 PM CDT 01/19/2017 3:45 PM CDT Joanna Pulido MD LAB - BLOOD ORDERA BLES Performing Organization Address [facility] [place] [address] * HIV Antigen Antibody Combo (12/17/2016 1:04 PM CDT) HIV Antigen Antibody Combo Nonreactive HIV-1 p24 Ag & HIV-1/HIV-2 Ab Not Detected NR [facility] Blood specimen (specimen) 12/17/2016 1:04 PM CDT 12/17/2016 1:06 PM CDT Jacob Hernandez MD LAB - BLOOD ORDERABL ES Performing Organization Address City/[facility] [place] [address] * MA Screen Bilateral w/Yash (01/22/2016 1:42 [...] 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 Source: [facility]. 10/03/2019 Advance Directives For more information, please contact: [phone] * Full Code (Latest Code Status on File) Date Activated Date Inactivated Comments 02/04/2017 8:21 AM 12/06/2018 8:11 AM Care Teams Tandem Operator Relationship Specialty Start Date End Date Elissa Barnes [address] [place] [address] PCP - General Physician Detector Car Operator 08/28/21 Dexter Sykes MD [facility] [address] [place] [address] 09/15/16 Siva Hearn MD [facility] [address] [place] [address] Neurology 09/15/16 Radha Espinoza, RN Registered Nurse Neurology 12/15/16 Jacob Hernandez MD [address] [place] [address] Assigned Neuroscience Provider 07/27/20
--- OUTSIDE RECORDS SUMMARY | 2024-02-29 08:09 | XMS_ITS | Encounter Summary ---
Author Organization [place] Address [address] [place] [address]. [place] [address] Care Team Providers Care Senior Database Programmer Name Role Phone Dexter Sykes MD Unavailable [phone] Siva Hearn MD Unavailable [phone] Nikos Ventura Primary Care Provider Unavailabl Radha Luis RN Unavailable Unavailable Jacob Hernandez MD Unavailable [phone] Ronn Howard MD Unavailable [phone] [place] [address] Primary Care Provider Luis Mock PA-C Unavailable [phone] Joanna Pulido MD Unavailable [phone] Elissa Barnes Primary Care Provider Reason for Visit * Reason Onset Date Comments Patient/info Update 09/23/2018 Pt is in LTC Facility due to broken femur Call Back 09/23/2018 Encounter Details Date Type Department Care Team (Late st Contact Info) Description 09/23/2018 Telephone [facility] Neurology 909 [facility] 3rd [place] [address] Jacob Hernandez MD 9 [place] [address] Patient/info Update (Pt is in [...] Ed know the November appointment was cancelled. TY SALES ADVISOR * Telephone Encounter - Joanie Fam - [...] to: [facility] Neurology TY SALES ADVISOR * Telephone Encounter - Nicolette Doshi RN - 09/30/2018 2:55 PM CST Called to schedule patient appointment at [facility] in [place]. Patient already had an appointment set up for 11/23/18 but we need it sooner than that. They are able to see her 10/11/18 at 1:10p at their [place] location. I have rescheduled the patient for this. I called GINNY Carolina at [facility] (phone: [phone]) and she will work on setting up a transportation ride. I also called patient's Ed and made him aware of this by leaving a [facility]. TY SALES ADVISOR * Telephone Encounter - Cathie Lynn - 09/29/2018 4:05 PM CST [facility] Phone Message May a detailed message be left on voicemail: yes Reason for Call: Other: Ed called in, said he was returning Nicolette's call. Please give him another call back. Action Taken: Message routed to: [facility] ([facility]): Neurology TY SALES ADVISOR * Telephone Encounter - Nicolette Doshi RN - 09/29/2018 2:53 PM CST Called and left a VMM for director social at [facility] requesting a call back to discuss coordinating GI appointment and wheelchair transport. Also called patient's , Ed and urged him to contact [facility] in [place] to set up an appointment so we can work on scheduling transport. Asked for a call back with questions. TY SALES ADVISOR * Telephone Encounter - Nicolette Doshi RN - 09/27/2018 9:59 AM CST Called and left another VMM for Ruchi asking for a call back linda to discuss setting up a GI appointment and transportation. TY SALES ADVISOR * Telephone Encounter - Nicolette Doshi RN - 09/24/2018 2:42 PM CST Called and spoke with Cathy. She is residing at [facility] recovering from surgery to repair a fractured femur. She is non-weight bearing for about 6 weeks. She tells me it will be very difficult to get to a GI appointment. She is open to doing this if the care facility will help coordinate a wheelchair transportation ride. I called the care facility (phone: [phone]) and left a VMM for Shebly requesting a call back to discuss this. TY SALES ADVISOR * Telephone Encounter - Royal Shen - 09/23/2018 3:06 PM CST [facility] Call Center Phone Message May a detailed message be left on voicemail: no Reason for Call: Other: Pt's Jai called to speak with Nicolette; he said the Pt is in [facility] due to breaking her femur and recovering there right now. Dr. Hernandez referred her to a gastro provider but she won't be able to do this for some time. Please call him with any questions/concerns. 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 Source: [facility]. 10/03/2019 documented as of this encounter Care Teams Senior Database Programmer Relationship Specialty Start Date End Date Nikos Ventura [address] [address] PCP - General Family Practice 11/11/16 01/21/21 [facility] [address] [place] [address] PCP - General 01/22/21 08/27/21 Elissa Barnes 1400 [place] [address] PCP - General Physician Pathology Teacher 08/28/21 Dexter Sykes MD [address] [address] 09/15/16 Siva Hearn MD [address] [address] Neurology 09/15/16 Radha Espinoza, RN Registered Nurse Neurology 12/15/16 Jacob Hernandez MD 909 [place] [address] Assigned Neuroscience Provider 07/27/20 [place] [address] [employer] [facility] [address] [place] [address] Assigned Musculoskeletal Provider 12/09/20 02/09/21 Luis Mock PAMagnoliaC [address] [employer] [facility] [address] [place], [place] [address] Assigned Musculoskeletal Provider 02/10/21 08/08/22 Joanna Pulido MD 909 [place] [address] Assigned Cancer Care Provider 04/28/21 04/24/23 documented as of this encounter
--- OUTSIDE RECORDS SUMMARY | 2024-02-29 08:09 | XMS_ITS | Encounter Summary ---
Author Organization [place] Address [address] [place] [address]. [place] [address] Care Team Providers Care Resource Protection Specialist Name Role Phone Dexter Sykes MD Unavailable [phone] Siva Hearn MD Unavailable [phone] Nikos Ventura Primary Care Provider Unavailabl Radha Luis RN Unavailable Unavailable Jacob Hernandez MD Unavailable [phone] Ronn Howard MD Unavailable [phone] [facility] Primary Care Provider Luis Mock PA-C Unavailable Joanna Pulido MD Unavailable [phone] Elissa Barnes Primary Care Provider [phone] Reason for Visit * Reason Onset Date Comments Call Back 11/30/2018 PICC for IVIG tr migue Encounter Details Date Type Department Care Team (Late st Contact Info) Description 11/30/2018 Telephone [facility] Neurology [address] [facility] 3rd [place] [address] Jacob Hernandez MD [address] [place] [address] Call Back (PICC for IVIG treatments) [...] proceed with the testing. Called and left [facility] for patient letting her know that Dr. Hernandez didn't order the GI procedures but that she should proceed with testing. Asked for a call back with questions. AGE OPERATOR * Telephone Encounter - Nicolette Doshi RN - 12/01/2018 1:41 PM CST Spoke with Thu at [facility]; who tells me that because Cathy has [...] go and if problem persists, they will kotlik back with us and we can re-evaluate need. Called patient and discussed the plan above; patient is agreeable to the plan. OF NOTE: patient tells me she is scheduled for a esophagoscopy/gastroscopy/duodenoscopy on 12/[address] Beahc. Patient is under the assumption that this is at Dr. Hernandez's recommendation. Dr. Hernandez, please let me know your thoughts. AGE OPERATOR * Telephone Encounter - Nicolette Doshi RN - 11/30/2018 11:[address] Hernandez, please see below. Assuming you do not want to move forward with a central line. Please advise. Also, have you reviewed GIs note? Is patient clear to proceed with rituximab? 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 Source: [employer] [facility] 10/03/2019 documented as of this encounter Care Teams Resource Protection Specialist Relationship Specialty Start Date End Date Nikos Ventura [facility] E [address] [address] PCP - General Family Practice 11/11/16 01/21/21 [facility] 1400 [place] [address] PCP - General 01/22/21 08/27/21 Elissa Barnes 1400 [place] [address] PCP - General Physician Children'S Counselor 08/28/21 Dexter Sykes MD [place] [address] [address] 09/15/16 Siva Hearn MD [facility] Geovani RECINOS [address] [address] Neurology 09/15/16 Radha Espinoza, GEOFF Registered Nurse Neurology 12/15/16 Jacob Hernandez MD [address] [place] [address] Assigned Neuroscience Provider 07/27/20 [place] [address] [address] Assigned Musculoskeletal Provider 12/09/20 02/09/21 Luis Mock, PA-C [address] [address] Assigned Musculoskeletal Provider 02/10/21 08/08/22 Joanna Pulido MD [address] [place] [address] Assigned Cancer Care Provider 04/28/21 04/24/23 documented as of this encounter
--- OUTSIDE RECORDS SUMMARY | 2024-02-29 08:09 | XMS_ITS | Encounter Summary ---
Author Organization [place] Address [address] [place] [address]. [place] [address] Care Team Providers Care Tag Maker Name Role Phone Dexter Sykes MD Unavailable [phone] Siva Hearn MD Unavailable [phone] Nikos Ventura Primary Care Provider Unavailabl Radha Luis RN Unavailable Unavailable Jacob Hernandez MD Unavailable [phone] Ronn Howard MD Unavailable [phone] [place] [address] Primary Care Provider Luis Mock PA-C Unavailable [phone] Joanna Pulido MD Unavailable [phone] Elissa Barnes Primary Care Provider Reason for Visit * Reason Onset Date Comments Call Back 09/19/2020 Encounter Details Date Type Department Care Team ([facility] st Contact Info) Description 09/19/2020 Telephone [facility] 1st Floor, [facility] R102 [address] [place] [address] Jacob Hernandez MD 909 [place], [place] [address] Call Back Social History Tobacco Use Types [...] COVID-19? Unable to assess 09/04/2020 1:06 PM EQUIPMENT PROCESSER STORAGE documented as of this encounter Miscellaneous Notes * Telephone Encounter - Giselle Britt RN - 09/20/2020 10:[address] (04/2018) for patient was ordered w/ contrast. Radiologist at [facility] (phone [phone]) would like current CT order to match in order to compare images. Gave VO for contrast only. [facility] also needs imaging from patient's 2018 CT to be sent over. Provided [place] with imaging fax number (fax [phone]) so they can request images. 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 Source: [facility]. 10/03/2019 Assessment Noted Time PHQ-9 Depression Total Score: 8 09/04/20 20 1:10 PM EQUIPMENT PROCESSER STORAGE documented as of this encounter Care Teams Tag Maker Relationship Specialty Start Date End Date Nikos Ventura [facility] [address] [address] PCP - General Family Practice 11/11/16 01/21/21 [facility] 1400 [place] [address] PCP - General 01/22/21 08/27/21 Elissa Barnes [address] [place] [address] PCP - General Physician Plumbing And Heating Mechanic 08/28/21 Dexter Sykes MD [facility] NEUROLOGY [facility] E [address] [address] 09/15/16 Siva Hearn MD [facility] NEUROLOG[facility] E [address] [address] Neurology 09/15/16 Radha Espinoza, RN Registered Nurse Neurology 12/15/16 Jacob Hernandez MD [address] [place] [address] Assigned Neuroscience Provider 07/27/20 Ronn Howard [place] [address] [place] [address] [address] [place] [address] Assigned Musculoskeletal Provider 12/09/20 02/09/21 Luis Mock PA-C [id number] [place] [address] 300 [place] [address] Assigned Musculoskeletal Provider 02/10/21 08/08/22 Joanna Pulido MD [address] [place] [address] Assigned Cancer Care Provider 04/28/21 04/24/23 documented as of this encounter
--- OUTSIDE RECORDS SUMMARY | 2024-02-29 08:09 | XMS_ITS | Encounter Summary ---
Author Organization [place] Address [address] [place] [address]. [place] [address] Care Team Providers Care Supervisor [employer] Name Role Phone Dexter Sykes MD Unavailable [phone] Siva Hearn MD Unavailable [phone] Nikos Ventura Primary Care Provider Unavailabl Radha Luis RN Unavailable Unavailable Jacob Hernandez MD Unavailable [phone] Ronn Howard MD Unavailable [phone] [facility] Primary Care Provider Luis Mock PA-C Unavailable [phone] Joanna Pulido MD Unavailable [phone] Elissa Barnes Primary Care Provider Encounter Details Date Type Department Care Team (Late st Contact Info) Description 02/14/2019 Telephone [facility] [address],Clinic 1F 516 [facility] 88 [place], [place] [address] Jacob Hernandez MD 909 [place] [address] Social History Tobacco Use Types [...] Time 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 Source: [employer] [facility]. 10/03/2019 documented as of this encounter Care Teams Supervisor [employer]er Farm Relationship Specialty Start Date End Date Nikos Ventura [facility] NE[facility]OLOGY [address] [address] PCP - General Family Practice 11/11/16 01/21/21 [facility] 1400 [place] [address] PCP - General 01/22/21 08/27/21 Elissa Barnes [address] [place] [address] PCP - General Physician Radiology Specialist 08/28/21 Dexter Sykes MD [facility] NEUROLOGY [address] [place] [address] 09/15/16 Siva Hearn MD [address] [address] Neurology 09/15/16 Radha Espinoza, GEOFF Registered Nurse Neurology 12/15/16 Jacob Hernandez MD [address] [place] [address] Assigned Neuroscience Provider 07/27/20 Ronn [place] [address] [place] [address] Assigned Musculoskeletal Provider 12/09/20 02/09/21 Luis Mock PA-C [id number] [place] [address] Assigned Musculoskeletal Provider 02/10/21 08/08/22 Joanna Pulido MD [address] [place] [address] Assigned Cancer Care Provider 04/28/21 04/24/23 documented as of this encounter
--- OUTSIDE RECORDS SUMMARY | 2024-02-29 08:09 | XMS_ITS | Encounter Summary ---
Author Organization [place] Address [address] [place] [address]. [place] [address] Care Team Providers Care Comprehensive Advisor Name Role Phone Dexter Sykes MD Unavailable Siva Hearn MD Unavailable [phone] Nikos Ventura Primary Care Provider Unavailabl Radha Luis RN Unavailable Unavailable Jacob Hernandez MD Unavailable [phone] Ronn Howard MD Unavailable [phone] [place] [address] Primary Care Provider Luis Mock PA-C Unavailable Joanna Pulido MD Unavailable [phone] Elissa Barnes Primary Care Provider Encounter Details Date Type Department Care Team (Late st Contact Info) Description 01/31/[address] 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 Source: [facility]. 10/03/2019 documented as of this encounter Care Teams Comprehensive Advisor Relationship Specialty Start Date End Date Nikos Ventura [address] [address] PCP - General Family Practice 11/11/16 01/21/[address] [address] PCP - General 01/22/21 08/27/21 Elissa Barnes [address] [place] [address] PCP - General Physician Training Systems Officer 08/28/21 Dexter Sykes MD [address] [address] 09/15/16 Siva Hearn MD [address] [address] Neurology 09/15/16 Radha Espinoza, GEOFF Registered Nurse Neurology 12/15/16 Jacob Hernandez MD 909 [place] [address] Assigned Neuroscience Provider 07/27/20 Ronn Howard [place] [id number] [place] [address] Assigned Musculoskeletal Provider 12/09/20 02/09/21 Luis Mock PA-C [address] [address] Assigned Musculoskeletal Provider 02/10/21 08/08/22 Joanna Pulido MD 909 [place] [address] Assigned Cancer Care Provider 04/28/21 04/24/23 documented as of this encounter
--- OUTSIDE RECORDS SUMMARY | 2024-02-29 08:09 | XMS_ITS | Encounter Summary ---
Author Organization [place] Address [address] [place] [address]. [place] [address] Care Team Providers Care Criminal Legal Assistant Name Role Phone Dexter Sykes MD Unavailable [phone] Siva Hearn MD Unavailable [phone] Nikos Ventura Primary Care Provider Unavailabl Radha Luis RN Unavailable Unavailable Jacob Hernandez MD Unavailable [phone] Ronn Howard MD Unavailable [phone] [place] [address] Primary Care Provider Luis Mock PA-C Unavailable [phone] Joanna Pulido MD Unavailable [phone] Elissa Barnes Primary Care Provider [phone] Reason for Visit * Reason Onset Date Comments Referral 09/17/2018 denying GI refer ral Encounter Details Date Type Department Care Team (Late st Contact Info) Description 09/17/2018 Telephone [facility] Neurology 909 [facility] 3rd [place] [address] Jacob Hernandez MD [address] [place] [address] Referral (denying GI referral) Social History [...] 10:36 AM CST [facility] (phone: [phone]; fax: [phone]). TRONIC SYSTEMS SECURITY ASSESSMENT * Telephone Encounter - Yanely Perez - 09/20/2018 2:54 PM CST [facility] Phone Message May a detailed message be left on voicemail: yes Reason for Call: Other: Pts Ed calling to say that they would need to go to a GI clinic as close to [place] as possible due to the fact that pt broke her femur and she'll be in rehab for awhile. Action Taken: Message routed to: [facility] NEUROLOGY TRONIC SYSTEMS SECURITY ASSESSMENT * Telephone Encounter - Nicolette Doshi RN - 09/20/2018 12:20 PM CST Called and left a M for patient requesting a call back to discuss where she would like the referral sent. 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 Source: [facility]. 10/03/2019 documented as of this encounter Care Teams Criminal Legal Assistant Relationship Specialty Start Date End Date Nikos Ventura [place] [address] [address] PCP - General Family Practice 11/11/16 01/21/21 [facility] 1400 [place] [address] PCP - General 01/22/21 08/27/21 Elissa Barnes [address] [place] [address] PCP - General Physician Reservationist 08/28/21 Dexter Sykes MD [place] [address] [address] 09/15/16 Siva Hearn MD [place] [address] [address] Neurology 09/15/16 Radha Espinoza, GEOFF Registered Nurse Neurology 12/15/16 Jacob Hernandez MD 909 [place] [address] Assigned Neuroscience Provider 07/27/20 [place] [address] [address] Assigned Musculoskeletal Provider 12/09/20 02/09/21 Luis Mock PA-C [address] [address] Assigned Musculoskeletal Provider 02/10/21 08/08/22 Joanna Pulido MD 909 [place] [address] Assigned Cancer Care Provider 04/28/21 04/24/23 documented as of this encounter
--- OUTSIDE RECORDS SUMMARY | 2024-02-29 08:09 | XMS_ITS | Encounter Summary ---
Author Organization [place] Address [address] [place] [address]. [place] [address] Care Team Providers Care Layboy Tender Name Role Phone Dexter Sykes MD Unavailable [phone] Siva Hearn MD Unavailable [phone] Nikos Ventura Primary Care Provider Unavailabl Radha Luis RN Unavailable Unavailable Jacob Hernandez MD Unavailable [phone] Ronn Howard MD Unavailable [phone] [place] [address] Primary Care Provider Luis Mock PA-C Unavailable [phone] Joanna Pulido MD Unavailable [phone] Elissa Barnes Primary Care Provider Encounter Details Date Type Department Care Team (Late st Contact Info) Description 02/05/2017 [facility] Medical Advice [facility] Neurology [address] [address] Radha Espinoza, RN Social History [...] Time 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 Source: [facility]. 10/03/2019 documented as of this encounter Care Teams Layboy Tender Relationship Specialty Start Date End Date Audrey Riccardo [place] [address] [address] PCP - General Family Practice 11/11/16 01/21/21 [facility] 1400 [place] [address] PCP - General 01/22/21 08/27/21 Elissa Barnes 1400 [place] [address] PCP - General Physician Batchmaker 08/28/21 Dexter Sykes MD [address] [address] 09/15/16 Siva Hearn MD [address] [address] Neurology 09/15/16 Radha Espinoza, GEOFF Registered Nurse Neurology 12/15/16 Jacob Hernandez MD [address] [place] [address] Assigned Neuroscience Provider 07/27/20 Ronn [place] [address] [place] [address] Assigned Musculoskeletal Provider 12/09/20 02/09/21 Luis Mock [employer] [address] [address] Assigned Musculoskeletal Provider 02/10/21 08/08/22 Joanna Pulido MD 909 [place] [address] Assigned Cancer Care Provider 04/28/21 04/24/23 documented as of this encounter
--- OUTSIDE RECORDS SUMMARY | 2024-02-29 08:09 | XMS_ITS | Encounter Summary ---
Author Organization [facility] Address [address] [place] [id number] Care Team Providers Care News Clipping Cutter Name Role Phone Dexter Sykes MD Unavailable [phone] Siva Hearn MD Unavailable [phone] Nikos Ventura Primary Care Provider Unavailabl Radha Luis RN Unavailable Unavailable Jacob Hernandez MD Unavailable [phone] Ronn Howard MD Unavailable [phone] [place] [address] Primary Care Provider Luis Mock PA-C Unavailable [phone] Joanna Pulido MD Unavailable [phone] Elissa Barnes Primary Care Provider Reason for Referral * Consultation - Closed Specialty Diagnoses / Procedures Referred By Yulissa wayne Referred To Contact Diagnoses Hepatitis B infection Jacob Hernandez MD [address] [place] [address] Referral ID Status Reason Start Date Expiration Date Visits Re quested Visits Authorized [id number] Closed 09/15/2018 09/15/2019 1 1 Question Answer Reason for Consult Other (Specify in Comments) Comments see GI for antiviral therapy prior to rituximab initiation. Preferred Location: [facility] Please be aware that coverage of these services is subject to the terms and limitations of your health insurance plan. Call member services at your health plan with any benefit or coverage questions. Any procedures must be performed at a [facility] facility OR coordinated by your clinic's referral office. Please bring the following with you to your appointment: (1) Any X-Rays, CTs or MRIs which have been performed. Contact the facility where they were done to arrange for picker / packer prior to your scheduled appointment. (2) List of current medications (3) This referral request (4) Any documents/labs given to you for this referral NT DEVELOPMENT COORDINATOR Reason for Visit * Reason Onset Date Comments Call Back 09/08/2018 Labs Encounter Details Date Type Department Care Team ([facility] st Contact Info) Description 09/08/[address] [address] Jacob Hernandez MD [address] [place] [id number] Call Back (Labs) Social History Tobacco [...] She would like lab orders faxed to [facility] (phone: [phone]; fax: [phone]). This has been done. Patient plans to get labs done 09/09. NT DEVELOPMENT COORDINATOR * Telephone Encounter - Royal Shen - 09/08/2018 11:08 AM CST [facility] Phone Message May a detailed message be left on voicemail: no Reason for Call: Other: Pt is returning Nicolette's call about completing labs that were ordered for her to do. Please call her back. Action Taken: Message routed to: [facility] NT DEVELOPMENT COORDINATOR * Telephone Encounter - Nicolette Doshi RN - 09/08/2018 11:08 AM CST Unfortunately, Cathy's labs came back positive for Hepatitis B. Per Dr. Hernandez, she will need a GIreferral to be cleared to start Rituximab. Referral placed on behalf of Dr. Hernandez. Called patient and she would like th referral sent to [facility] (phone: [phone]; fax: [phone]). This has been done. 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 Source: [facility]. 10/03/2019 documented as of this encounter Care Teams News Clipping Cutter Relationship Specialty Start Date End Date Nikos Ventura [facility] [address] [address] PCP - General Family Practice 11/11/16 01/21/21 [facility] [address] [place] [address] PCP - General 01/22/21 08/27/21 Elissa Barnes [address] [place] [address] PCP - General Physician Etymology Teacher 08/28/21 Dexter Sykes MD [facility] [address] [facility] [address] [place] [address] 09/15/16 Siva Hearn MD [facility] [address] [facility] [address] [place] [address] Neurology 09/15/16 Radha Espinoza, RN Registered Nurse Neurology 12/15/16 Jacob Hernandez MD [address] [place] [address] [id number] Assigned Neuroscience Provider 07/27/20 Ronn Howard MD [id number] [place] [id number] Assigned Musculoskeletal Provider 12/09/20 02/09/21 Luis Mock PA-C [id number] [place] [id number] Assigned Musculoskeletal Provider 02/10/21 08/08/22 Joanna Pulido MD [address] [place] [address] [id number] Assigned Cancer Care Provider 04/28/21 04/24/23 documented as of this encounter
== END 2024-02-02 13:26 | disposition home or self-care (01) ==
LOC: AMB 02-29 07:51
PROVIDERS: PCP Physician Assistant Medical; Visit Provider Emergency Medicine
DX: S72.301S Unspecified fracture of shaft of right femur, sequela (principal); M25.561 Pain in right knee
CPT/HCPCS: A0425; A0427